=== PATIENT | female | born 1960 | race Caucasian/White ===

== ENCOUNTER 2021-01-22 11:16 | Observation (INO) | payer OTHER ==
[2021-01-22 12:19] LABS: Urine Blood Negative (Negative); Urine Glucose 3+ (Negative); Urine Protein Negative (Negative); Urine Specific Gravity 1.015 (1.005-1.030)
--- NOTE | 2021-01-22 12:21 | RAD REPORT ---
EXAM DESCRIPTION: RAD - Chest Single View - 01/22/2021 12:14 pm CLINICAL HISTORY: Chest pain;Abdominal distention COMPARISON: Chest Single View dated 02/11/2017; Chest Single View dated 08/21/2016; CHEST PA AND LAT 2 VIEW dated 02/07/2015 FINDINGS: Lines: None. Lungs: No evidence of edema or pneumonia. Pleural: No significant pleural effusions or pneumothorax. Cardiac: The heart size is within normal limits. Bones: No acute fractures. Other: IMPRESSION: No acute cardiopulmonary disease.
[2021-01-22 12:25] LABS: Absolute Lymphocytes (CBC) 1.5 K/uL (0.7-4.9); Basophils % 0.3 % (0-1.3); Hematocrit 40.3 % (36.0-45.0); Lymphocytes % 16.7 % (15.3-44.8); MPV 7.2 fL (7.6-11.3); Protime INR 1.07; RBC Red Blood Cell Count 4.98 M/uL (3.86-4.86)
[2021-01-22 12:41] LABS: ALT/SGPT 23 U/L (12-78); AST/SGOT 28 U/L (15-37); Albumin 4.3 g/dL (3.4-5.0); Alkaline Phosphatase 89 U/L (45-117); BUN Blood Urea Nitrogen 12 mg/dL (7-18); Bicarbonate 28 mmol/L (21-32); Bilirubin Direct < 0.1 mg/dL (0-0.2); Bilirubin Total 0.3 mg/dL (0.2-1.0); Glucose Level 192 mg/dL (74-106); Lipase 98 U/L (73-393); NT PRO-BNP 22 pg/mL (<125); Potassium 3.4 mmol/L (3.5-5.1); Protein, Total 8.6 g/dL (6.4-8.2); Sodium Level 141 mmol/L (136-145); Troponin (Emerg Dept Use Only) < 0.02 ng/mL (0.0-0.045)
[2021-01-22] MEDS ORDERED: HYDROCODONE/APAP 10/325 TAB ONE ×2 (12:44→15:25)
[2021-01-22] MEDS ORDERED: NA CHLORIDE 0.9% 1,000 ML ONE ×2 (13:02→14:31)
--- NOTE | 2021-01-22 13:34 | RAD REPORT ---
EXAM DESCRIPTION: CT - Angio Aorta For Dissection - 01/22/2021 1:18 pm CLINICAL HISTORY: Chest pain radiating to the back. Abdominal distention;Chest pain COMPARISON: No comparisons TECHNIQUE: CT angiography of the aorta was performed with MIPs. All CT scans are performed using dose optimization technique as appropriate and may include automated exposure control or mA/KV adjustment according to patient size. FINDINGS: A left aortic arch is present with normal branching pattern of the great vessels.No acute aortic finding is seen such as aneurysm, penetrating ulcer or dissection. The celiac axis, SMA, SUKI and renal arteries are patent. No evidence of pulmonary embolism. The lungs are clear. The liver demonstrates no focal mass or biliary dilatation.The spleen, pancreas, adrenal glands and k idneys are within normal limits for arterial phase imaging. No bowel obstruction, free fluid or abscess.No pathologic enlarged lymphadenopathy identified. Moderate lumbosacral degenerative changes. IMPRESSION: No acute aortic finding is demonstrated.
[2021-01-22] MEDS ORDERED: ASPIRIN 81 MG CHEWABLE TABLET ONE (14:00)
[2021-01-22] MEDS ORDERED: PIPERACIL/TAZO 3.375 GM VIAL IV ONE (14:00)
[2021-01-22] MEDS ORDERED: NA CHLORIDE 0.9% 250 ML ONE (14:01)
[2021-01-22] MEDS ORDERED: NA CHLORIDE 0.9% 100 ML ONE (14:01)
--- NOTE | 2021-01-22 14:01 | EDPHYS ---
Physician Documentation [facility] Name: Genet Cruz Age: 60 yrs Sex: Female : 1960 Arrival Date: 01/22/2021 Time: 11:20 Bed 4 Private MD: ED Physician Moshe Vogel HPI: 01/22 12:27 This 60 yrs old Female presents to ER via EMS with complaints of chest trini burning, sob, back pain. 12:27 The patient has shortness of breath at rest. Onset: The symptoms/episode began/occurred trini just prior to arrival. Duration: The symptoms are continuous, and are unchanged since they started. The patient's shortness of breath is aggravated by nothing, is alleviated by nothing. The patient or guardian reports chest pain that is located primarily in the substernal area, anterior aspect of left upper chest, left lateral posterior chest and left breast. Onset: this morning. The pain radiates to left back. Associated signs and symptoms: Pertinent positives: chest pain, non-productive cough. Severity of symptoms: At their worst the symptoms were moderate in the emergency department the symptoms have improved mildly. The chest pain is described as aching. Historical: - Allergies: 16:38 Codeine; iw - PMHx: 11:23 chronic pain (L) arm; Diabetes - IDDM; Hypertension; TIA; as6 - Immunization history:: Adult Immunizations up to date. - Social history:: Smoking status: Reported history of juuling and/or vaping. - Family history:: not pertinent. ROS: 12:27 Constitutional: Negative for fever, chills, and weight loss, Eyes: Negative for injury, trini pain, redness, and discharge, ENT: Negative for injury, pain, and discharge, Neck: Negative for injury, pain, and swelling, Abdomen/GI: Negative for abdominal pain, nausea, vomiting, diarrhea, and constipation, Back: Negative for injury and pain, : Negative for injury, bleeding, discharge, and swelling, MS/Extremity: Negative for injury and deformity, Skin: Negative for injury, rash, and discoloration, Neuro: Negative for headache, weakness, numbness, tingling, and seizure, Psych: Negative for depression, anxiety, suicide ideation, homicidal ideation, and hallucinations, Allergy/Immunology: Negative for hives, rash, and allergies, Endocrine: Negative for neck swelling, polydipsia, polyuria, polyphagia, and marked weight changes, Hematologic/Lymphatic: Negative for swollen nodes, abnormal bleeding, and unusual bruising. 12:27 Neck: Positive for 12:27 Cardiovascular: Positive for chest pain, of the chest. 12:27 Respiratory: Positive for shortness of breath, at rest. Exam: 12:27 Constitutional: This is a well developed, well nourished patient who is awake, alert, trini and in no acute distress. Head/Face: Normocephalic, atraumatic. Eyes: Pupils equal round and reactive to light, extra-ocular motions intact. Lids and lashes normal. Conjunctiva and sclera are non-icteric and not injected. Cornea within normal limits. Periorbital areas with no swelling, redness, or edema. ENT: Nares patent. No nasal discharge, no septal abnormalities noted. Tympanic membranes are normal and external auditory canals are clear. Oropharynx with no redness, swelling, or masses, exudates, or evidence of obstruction, uvula midline. Mucous membranes moist. Neck: Trachea midline, no thyromegaly or masses palpated, and no cervical lymphadenopathy. Supple, full range of motion without nuchal rigidity, or vertebral point tenderness. No Meningismus. Chest/axilla: Normal chest wall appearance and motion. Nontender with no deformity. No lesions are appreciated. Cardiovascular: Regular rate and rhythm with a normal S1 and S2. No gallops, murmurs, or rubs. Normal PMI, no JVD. No pulse deficits. Respiratory: Lungs have equal breath sounds bilaterally, clear to auscultation and percussion. No rales, rhonchi or wheezes noted. No increased work of breathing, no retractions or nasal flaring. Abdomen/GI: Soft, non-tender, with normal bowel sounds. No distension or tympany. No guarding or rebound. No evidence of tenderness throughout. Back: No spinal tenderness. No costovertebral tenderness. Full range of motion. Skin: Warm, dry with normal turgor. Normal color with no rashes, no lesions, and no evidence of cellulitis. MS/ Extremity: Pulses equal, no cyanosis. Neurovascular intact. Full, normal range of motion. Neuro: Awake and alert, GCS 15, oriented to person, place, time, and situation. Cranial nerves II-XII grossly intact. Motor strength 5/5 in all extremities. Sensory grossly intact. Cerebellar exam normal. Normal gait. Psych: Awake, alert, with orientation to person, place and time. Behavior, mood, and affect are within normal limits. 12:27 ECG was reviewed by the Attending Physician. 12:27 Musculoskeletal/extremity: Extremities: all appear grossly normal, with no appreciated pain with palpation, ROM: no acute changes, Circulation is intact in all extremities. Sensation intact. Compartment Syndrome exam of affected extremity: is normal. DVT Exam: no pain, no swelling, no tenderness, negative Homans' sign noted on exam, no appreciated bluish discoloration, no erythema, no increased warmth. Vital Signs: 11:20 BP 145 / 73; Pulse 107; Resp 21; Pulse Ox 94% ; Weight 79.83 kg; Height 5 ft. 4 in. as6 (162.56 cm); 12:39 Temp 97.8(TE); as6 14:43 BP 139 / 74; Pulse 104; Resp 17; Pulse Ox 99% on R/A; jt3 16:05 Pulse 87; Resp 17; Pulse Ox 97% on R/A; jt3 11:20 Body Mass Index 30.21 (79.83 kg, 162.56 cm) as6 MDM: 11:21 Patient medically screened. trini 12:33 Differential diagnosis: Anemia Anxiety Reaction abnormal EKG, anxiety, coronary artery trini disease chest wall pain, cholecystitis, esophagitis, gastritis, hiatal hernia, pancreatitis, peptic ulcer disease, pleurisy, pneumonia, pulmonary embolus, stable angina, unstable angina, pneumonia, pulmonary edema, Pulmonary Embolism reactive airway disease, Sepsis Unstable Angina. Antibiotic administration: Not indicated. HEART Score: History: Slightly Suspicious (0), ECG: Non specific repolarization disturbance / LBTB / PM (1), Age: > 45 and < 65 years (1), Risk Factors: > or = 3 Risk factors for atherosclerotic disease (2), [Hypertension] [DM] [+ Family HX] Troponin: < or = 1 x Normal Limit (0). The patient was given aspirin in the Emergency Department. The patient's Wells Deep Vein Thrombosis Score was calculated as follows: Total Score: 0. This patient was found to be at low risk for a deep vein thrombosis by using the Well's assessment criteria Heart Rate >100 BPM (1.5 Pts) Total Score: 0-2 Pts- Low Risk. The patient's pulmonary embolism risk score was calculated as follows: Total Score: 0-2 points. This patient was found to be at low risk for a pulmonary embolism by using the Well's assessment criteria the patients heart rate is greater than 100 beats per minute (1.5 Pts) Total Score: 0-2 points. This patient was found to be at low risk for a pulmonary embolism by using the Well's assessment criteria. KEELY Risk Score: 1 - Three or more CAD risk factors, TOTAL SCORE = 1. Immunization status: Influenza vaccine:. Data reviewed: vital signs, nurses notes, EMS record, lab test result(s), EKG, radiologic studies, plain films. Data interpreted: environmental monitoring technician: rate is 107 beats/min, rhythm is regular, Pulse oximetry: on room air is 94 %. Test interpretation: by ED physician or midlevel provider: ECG, plain radiologic studies. 01/22 11:53 Order name: Basic Metabolic Panel; Complete Time: 13:26 [facility] 01/22 11:53 Order name: CBC with Diff; Complete Time: 12:35 [facility] 01/22 11:53 Order name: LFT's; Complete Time: 13:26 [facility] 01/22 11:53 Order name: Magnesium; Complete Time: 13:26 [facility] 01/22 11:53 Order name: NT PRO-BNP; Complete Time: 13:26 [facility] 01/22 11:53 Order name: PT-INR; Complete Time: 12:35 [facility] 01/22 11:53 Order name: Troponin (emerg Dept Use Only); Complete Time: 13:26 [facility] 01/22 11:53 Order name: Lipase; Complete Time: 13:26 [facility] 01/22 11:53 Order name: Urine Culture [facility] 01/22 12:20 Order name: Urine Dipstick-Ancillary; Complete Time: 12:35 [facility] 01/22 12:37 Order name: Blood Culture Adult (2) [facility] 01/22 12:37 Order name: Lactate; Complete Time: 13:26 [facility] 01/22 12:37 Order name: SARS-COV-2 RT PCR (Document "Date of Onset" if Symptomatic); Complete Time: [facility] 14:25 01/22 16:26 Order name: Basic Metabolic Panel [facility] 01/22 11:53 Order name: XRAY Chest (1 view); Complete Time: 12:35 [facility] 01/22 11:53 Order name: CT Aorta for Dissection; Complete Time: 13:57 [facility] 01/22 16:26 Order name: Basic Metabolic Panel [facility] 01/22 16:26 Order name: Lipid Profile [facility] 01/22 16:26 Order name: Lipid Profile [facility] 01/22 16:27 Order name: Echo with Doppler [facility] 01/22 16:27 Order name: CBC with Automated Diff [facility] 01/22 16:27 Order name: CBC with Automated Diff [facility] 01/22 16:27 Order name: Troponin I [facility] 01/22 16:27 Order name: Troponin I [facility] 01/22 16:27 Order name: Troponin I [facility] 01/22 16:42 Order name: Lactate Sepsis 2 HR Follow-up [facility] 01/22 11:53 Order name: EKG; Complete Time: 11:54 [facility] 01/22 11:53 Order name: Cardiac monitoring; Complete Time: 12:01 [facility] 01/22 11:53 Order name: EKG - Nurse/Tech; Complete Time: 12:01 [facility] 01/22 11:53 Order name: IV Saline Lock; Complete Time: 12:01 [facility] 01/22 11:53 Order name: Labs collected and sent; Complete Time: 12:26 [facility] 01/22 11:53 Order name: O2 Per Protocol; Complete Time: 12:01 [facility] 01/22 11:53 Order name: O2 Sat Monitoring; Complete Time: 12:01 [facility] 01/22 11:53 Order name: Urine Dipstick-Ancillary (obtain specimen); Complete Time: 12:25 [facility] 01/22 16:27 Order name: Heart Healthy [facility] 01/22 16:27 Order name: EKG Electrocardiogram [facility] 01/22 16:27 Order name: EKG Electrocardiogram [facility] EC:27 Rate is 106 beats/min. Rhythm is regular. QRS [place] is Normal. [place] interval is normal. [facility] QRS interval is normal. QT interval is normal. No Q waves. T waves are Normal. No ST changes noted. Clinical impression: NSR w/ Non-specific ST/T Changes and No evidence of ischemia. Interpreted by me. Reviewed by me. Administered Medications: 11:47 Drug: [place] (HYDROcodone-acetaminophen) 10 mg-325 mg 1 tabs Route: PO; as6 12:25 Drug: NS 0.9% 1000 ml Route: IV; Rate: 1 bolus; Site: right forearm; as6 13:27 Drug: Aspirin Chewable Tablet 162 mg Route: PO; jt3 16:01 Follow up: Response: No adverse reaction jt3 13:27 Drug: Zosyn (piperacillin-tazobactam) 3.375 grams Route: IVPB; Infused Over: 60 mins; jt3 Site: right forearm; 16:01 Follow up: Response: No adverse reaction jt3 13:36 Drug: Potassium Effervescent Tablet 25 mEq Route: PO; jt3 16:01 Follow up: Response: Pain is decreased jt3 13:41 Drug: NS 0.9% 1000 ml Route: IV; Rate: 1 bolus; Site: right forearm; jt3 15:35 Drug: [place] (HYDROcodone-acetaminophen) 10 mg-325 mg 1 tabs Route: PO; jt3 16:01 Follow up: Response: Pain is decreased jt3 Disposition Summary: 01/22/21 14:00 Hospitalization Ordered Hospitalization Status: Observation trini Provider: Piero Garcia cha Location: Telemetry/MedSurg (observation) trini Condition: Stable trini Problem: new trini Symptoms: have improved trini Bed/Room Type: Standard trini Room Assignment: 203(01/22/21 16:36) bd Diagnosis - Dyspnea trini - Chest pain, unspecified trini - Type 1 diabetes mellitus with hyperglycemia trini - Hypokalemia trini Forms: - Medication Reconciliation Form trini - SBAR form trini Signatures: Dispatcher [employer] EDMlaa Elizabeth Corey, MD MD cha Williams, Irene, RN RN iw Fer Garcia RN RN jt3 Cameron Hill RN RN as6 Corrections: (The following items were deleted from the chart) 16:36 14:00 trini iw 16:36 16:36 203 iw bd
--- NOTE | 2021-01-22 14:01 | ER ---
Nurse's Notes [facility] Name: Genet Cruz Age: 60 yrs Sex: Female : 1960 Arrival Date: 01/22/2021 Time: 11:20 Bed 4 Private MD: Diagnosis: Dyspnea;Chest pain, unspecified;Type 1 diabetes mellitus with hyperglycemia;Hypokalemia Presentation: 01/22 11:20 Chief complaint: EMS states: Pt. arrives via EMS due to having left sided back pain as6 that radiates into her left chest. Pt. feels when she got up this morning she aspirated due to acid reflux. Pt. reports burning on the left side of her chest. Alert and oriented x4 on arrival. Pt. arrives on 4L O2 from EMS. Airway patent. Coronavirus screen: Vaccine status: Patient reports being unvaccinated. Ebola Screen: Patient negative for fever greater than or equal to 101.5 degrees Fahrenheit, and additional compatible Ebola Virus Disease symptoms Patient denies exposure to infectious person. Patient denies travel to an Ebola-affected area in the 21 days before illness onset. Initial Sepsis Screen: Does the patient meet any 2 criteria? No. Patient's initial sepsis screen is negative. Does the patient have a suspected source of infection? No. Patient's initial sepsis screen is negative. Risk Assessment: Do you want to hurt yourself or someone else? Patient reports no desire to harm self or others. Onset of symptoms was January 22, 2021. 11:20 Method Of Arrival: EMS: [facility] as6 11:20 Acuity: IAV 3 as6 Triage Assessment: 11:23 General: Appears in no apparent distress. Behavior is calm, cooperative. Pain: as6 Complains of pain in chest Pain radiates to back Pain currently is 6 out of 10 on a pain scale. Quality of pain is described as burning, Pain began 4 hours ago. Historical: - Allergies: 16:38 Codeine; iw - PMHx: 11:23 chronic pain (L) arm; Diabetes - IDDM; Hypertension; TIA; as6 - Immunization history:: Adult Immunizations up to date. - Social history:: Smoking status: Reported history of juuling and/or vaping. - Family history:: not pertinent. Screenin:25 Abuse screen: Denies threats or abuse. Denies injuries from another. Nutritional as6 screening: No deficits noted. Tuberculosis screening: No symptoms or risk factors identified. Fall Risk None identified. Assessment: 11:25 Cardiovascular: Reports chest pain, shortness of breath, Rhythm is sinus tachycardia as6 Chest pain began 4 hours prior to arrival is aggravated by eating, Pt. reports left chest pain due to what she thinks is related to aspirating from acid reflux this morning. . 16:07 Reassessment: No changes from previously documented assessment. Patient and/or family jt3 updated on plan of care and expected duration. Pain level reassessed. Vital Signs: 11:20 BP 145 / 73; Pulse 107; Resp 21; Pulse Ox 94% ; Weight 79.83 kg; Height 5 ft. 4 in. as6 (162.56 cm); 12:39 Temp 97.8(TE); as6 14:43 BP 139 / 74; Pulse 104; Resp 17; Pulse Ox 99% on R/A; jt3 16:05 Pulse 87; Resp 17; Pulse Ox 97% on R/A; jt3 11:20 Body Mass Index 30.21 (79.83 kg, 162.56 cm) as6 ED Course: 11:20 Patient arrived in ED. as6 11:21 Moshe Vogel MD is Attending Physician. [facility] 11:23 Triage completed. as6 11:25 Arm band placed on right wrist. EKG completed in triage. Results shown to MD. EKG as6 completed in triage. Results shown to MD. 11:25 Patient has correct armband on for positive identification. Bed in low position. Call as6 light in reach. Side rails up X2. 11:25 No provider procedures requiring assistance completed. Inserted saline lock: 20 gauge as6 in right antecubital area, using aseptic technique. 12:14 XRAY Chest (1 view) In Process Unspecified. EDMS 12:49 First set of blood cultures drawn by me. mt 12:53 Fer Garcia, KATIE is Primary Nurse. jt3 13:18 CT Aorta for Dissection In Process Unspecified. EDMS 13:57 Piero Garcia MD is Hospitalizing Provider. trini Administered Medications: 11:47 Drug: [place] (HYDROcodone-acetaminophen) 10 mg-325 mg 1 tabs Route: PO; as6 12:25 Drug: NS 0.9% 1000 ml Route: IV; Rate: 1 bolus; Site: right forearm; as6 13:27 Drug: Aspirin Chewable Tablet 162 mg Route: PO; jt3 16:01 Follow up: Response: No adverse reaction jt3 13:27 Drug: Zosyn (piperacillin-tazobactam) 3.375 grams Route: IVPB; Infused Over: 60 mins; jt3 Site: right forearm; 16:01 Follow up: Response: No adverse reaction jt3 13:36 Drug: Potassium Effervescent Tablet 25 mEq Route: PO; jt3 16:01 Follow up: Response: Pain is decreased jt3 13:41 Drug: NS 0.9% 1000 ml Route: IV; Rate: 1 bolus; Site: right forearm; jt3 15:35 Drug: [place] (HYDROcodone-acetaminophen) 10 mg-325 mg 1 tabs Route: PO; jt3 16:01 Follow up: Response: Pain is decreased jt3 Outcome: 14:00 Decision to Hospitalize by Provider. trini 17:32 Patient left the ED. [facility] Signatures: Dispatcher [employer] EDMoshe Benitez MD MD cha Williams, Irene, RN Sharona Dennis [facility] Sue Hand mt, Jordan, RN RN jt3 Cameron Hill RN RN as6
[2021-01-22] MEDS ORDERED: POTASSIUM 25 MEQ EFFERV TAB ONE (14:31)
[2021-01-22] MEDS ORDERED: ACETAMINOPHEN 500 MG TAB PO PRN (16:23)
[2021-01-22] MEDS ORDERED: ALPRAZOLAM 0.25 MG TABLET PO PRN (16:23)
[2021-01-22] MEDS: ENOXAPARIN 40 MG/0.4 ML SQ SCH ×2 (17:00)
[2021-01-22 17:40] VITALS: BMI 30.2
[2021-01-22] MEDS: METOPROLOL TAR 50 MG TAB PO SCH (19:39)
[2021-01-22] MEDS: MORPHINE 2 MG/ML SYR IV PRN ×2 (19:40→23:40)
[2021-01-22] MEDS ORDERED: INFLUENZA VACCINE (for 6+ mo) 0.5 ML DOSE IMVAC ONE (20:00)
[2021-01-23 00:32] VITALS: O2SAT 95
[2021-01-23] MEDS: MORPHINE 2 MG/ML SYR IV PRN ×3 (03:46→12:52)
[2021-01-23 05:40] LABS: Absolute Lymphocytes (CBC) 3.4 K/uL (0.7-4.9); Basophils % 0.4 % (0-1.3); Hematocrit 35.6 % (36.0-45.0); RBC Red Blood Cell Count 4.35 M/uL (3.86-4.86)
[2021-01-23 05:57] LABS: BUN Blood Urea Nitrogen 10 mg/dL (7-18); Bicarbonate 27 mmol/L (21-32); Glucose Level 152 mg/dL (74-106); HDL Cholesterol 28 mg/dL (40-60); LDL Cholesterol, Calculated 41 (<130); Potassium 3.7 mmol/L (3.5-5.1); Sodium Level 140 mmol/L (136-145); Troponin I < 0.02 ng/mL (0.0-0.045)
[2021-01-23] MEDS: ENOXAPARIN 40 MG/0.4 ML SQ SCH (08:35)
[2021-01-23] MEDS: METOPROLOL TAR 50 MG TAB PO SCH (08:36)
[2021-01-23] MEDS ORDERED: ASPIRIN EC 81 MG TAB PO SCH (09:00)
[2021-01-23 12:09] VITALS: BP 100/58; TEMP 98.1
--- NOTE | 2021-01-23 13:11 | EKG ---
Test Date: 2021-01-23 Test Time: 10:10:26 Matrix Supervisor: JAMES MEASUREMENT RESULTS: Intervals: Rate: 83 NC: 196 QRSD: 86 QT: 394 QTc: 462 [place]: P: 79 NC: 196 QRS: 70 T: 72 INTERPRETIVE STATEMENTS: Normal sinus rhythm Normal ECG Compared to ECG 01/22/2021 11:23:24 Sinus tachycardia no longer present Myocardial infarct finding no longer present Electronically Signed On 01-23-21 13:10:13 CDT by Nhan Linton
--- NOTE | 2021-01-23 13:15 | EKG ---
Test Date: 2021-01-22 Test Time: 11:23:24 Corporate Logistics Manager: MONCHO MEASUREMENT RESULTS: Intervals: Rate: 106 TX: 172 QRSD: 84 QT: 372 QTc: 494 [place]: P: 57 TX: 172 QRS: 55 T: 72 INTERPRETIVE STATEMENTS: Sinus tachycardia Cannot rule out Anterior infarct, age undetermined Abnormal ECG Compared to ECG 02/11/2017 19:26:30 Myocardial infarct finding now present Sinus rhythm no longer present Prolonged QT interval no longer present Electronically Signed On 01-23-21 13:10:43 CDT by Nhan Linton
--- NOTE | 2021-01-23 13:59 | ECHO ---
HEIGHT: 5 ft 4 in WEIGHT: 175 lb 14.862 oz DATE OF STUDY: 03/25/[address]: Piero Garcia MD 2-DIMENSIONAL: YES M.MODE: YES DOPPLER: YES COLOR FLOW: YES TDS: PORTABLE: DEFINITY: BUBBLE STUDY: DIAGNOSIS: CHEST PAIN, RULE OUT ACUTE CORONARY SYNDROME CARDIAC HISTORY: CATHERIZATION: NO SURGERY: NO PROSTHETIC VALVE: NO PACEMAKER: NO MEASUREMENTS (cm) DIASTOLIC (NORMALS) SYSTOLIC (NORMALS) IVSd 1.1 (0.6-1.2) LA Diam 2.7 (1.9-4.0) LVEF 73% LVIDd 4.0 (3.5-5.7) LVIDs 2.4 (2.0-3.5) %FS 41% LVPWd 1.1 (0.6-1.2) Ao Diam 2.7 (2.0-3.7) 2 DIMENSIONAL ASSESSMENT: RIGHT ATRIUM: NORMAL LEFT ATRIUM: RIGHT VENTRICLE: NORMAL LEFT VENTRICLE: TRICUSPID VALVE: NORMAL MITRAL VALVE: PULMONIC VALVE: NORMAL AORTIC VALVE: PERICARDIAL EFFUSION: NONE AORTIC ROOT: LEFT VENTRICULAR WALL MOTION: DOPPLER/COLOR FLOW: COMMENTS: NORMAL 2-DIMENSIONAL ECHOCARDIOGRAM WITH DOPPLER. NO WALL MOTION ABNORMALITY. NO EFFUSION. TECHNOLOGIST: HERBER RHODES
--- OUTSIDE RECORDS SUMMARY | 2021-02-02 08:06 | XMS REPORT | Continuity of Care Document ---
:1960 Author Organization [facility] t Address [address] [place] [address] Care Team Providers Name Role Phone Jacob SNYDER Primary Care Physician Jacob SNYDER Attending Clinician Payers Payer Name Policy Type Policy Number Effective Date Expiration Date S ource Problems Condition Condition Condition Status Onset Resolution Last Treating Co mments Source Name Details Category Date Date Treatment Clinician Date Primary Primary Disease Active 2020-03 Univers hypertensi hypertensi 0-26 it y of on on 00:00: [address] Chronic Chronic Disease Active 2017-03 Univers pain pain 0-04 ity of syndrome syndrome 00:00: [address] 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 [place] SEPSIS Diagnosis Active 2017-09-22 Mem oria 09-14 21:42:00 l SEPSIS 21:08: [place] 00 Active 09/14/2017 [facility] Diabetes Diabetes Disease Active Unive rs 3-26 ity of 00:00: [address] SEPSIS, Diagnosis Active 2017-09-22 Me moria UNSPECIFIE 21:42:00 l D ORGANISM SEPSIS, Her maldonado UNSPECIFIE D ORGANISM Active Molly Perez Allergies, Adverse Reactions, Alerts Allergy Allergy Status Severity Reaction(s) Onset Inactive Treating Comm ents Source Name Type Date Date Clinician Codeine Propensi Active Unknown - Univ ers ty to See comments 11-11 ity of adverse 00:00: [place] reaction 00 Medical s Branch Sulfa Propensi Active Diarrhea, severe Unive rs (Sulfona ty to Nausea 06-21 abd. ity of mide adverse and/or 00:00: cramping [place] Antibiot reaction Vomiting, 00 Med ical ics) s to Other - See Bran h drug comments Levoflox Propensi Active Other - See 2016-03 U nivers acin ty to comments 0-06 ity of adverse 00:00: [place] reaction 00 Medical s Branch Penicill Propensi Active Rash 2014-03 Univer s ins ty to 0-02 ity of adverse 00:00: [place] reaction 00 Medical s to Branch drug codeine codeine Active Tyler Perez Levaquin Levaquin Active Yaquelin Perez Social History Social Habit Start Date Stop Date Quantity Comments Source Exposure to Not sure University of SARS-CoV-2 [place] [facility] (event) Branch Alcohol intake 2020-09-27 2020-09-27 Current University of 00:00:00 00:00:00 non-drinker of [facility] alcohol Branch (finding) Tobacco use and 2016-12-26 2016-12-26 Current user Univers ity of exposure 00:00:00 00:00:00 [facility] Tobacco Comment 2014-12-22 2014-12-22 Pt uses Universit y of 00:00:00 00:00:00 e-cigarette [facility] Sex [birth year] At [birth year] Universit y of 00:00:00 00:00:00 [facility] Smoking Status Start Date Stop Date Source Former smoker 2020-02-11 00:00:00 2020-02-11 00:00:00 Universi ty of [facility] Social History 2017-09-15 08:15:53 [facility] maldonado Medications Ordered Filled Start Stop Current Ordering Indication Dosage Frequency Signature Comments Components Source Medication Medication Date Date Medication? Clinician (SIG) Name Name sulfamethox 2020-03 Yes [id number] 1{tbl} Take 1 Univers azole-trime 1-09 tablet by ity of thoprim 00:00: mouth 2 [place] (BACTRIM 00 (two) Medical DS) 800-160 times Branch mg per daily. tablet hydrOXYzine 2020-03 Yes [id number] TAKE 1 Univers 25 mg 1-01 TABLET BY ity of tablet 00:00: MOUTH 3 [place] 00 TIMES Medical DAILY *MAY Branch IMPAIR ALERTNESS* * BACLOFEN 2020-03 Yes [id number] TAKE 1 Univers mg tablet 1-01 TABLET BY ity o f 00:00: MOUTH 3 [place] 00 TIMES Medical DAILY *MAY Branch IMPAIR ALERTNESS* * hydrOXYzine 2020-03 Yes [id number] TAKE 1 Univers 25 mg 1-01 TABLET BY ity of tablet 00:00: MOUTH 3 [place] 00 TIMES Medical DAILY *MAY Branch IMPAIR ALERTNESS* * BACLOFEN 2020-03 Yes [id number] TAKE 1 Univers mg tablet 1-01 TABLET BY ity o f 00:00: MOUTH 3 [place] 00 TIMES Medical DAILY *MAY Branch IMPAIR ALERTNESS* * hydrOXYzine 2020-03 Yes [id number] TAKE 1 Univers 25 mg 1-01 TABLET BY ity of tablet 00:00: MOUTH 3 [place] 00 TIMES Medical DAILY *MAY Branch IMPAIR ALERTNESS* * BACLOFEN 2020-03 Yes [id number] TAKE 1 Univers mg tablet 1-01 TABLET BY ity o f 00:00: MOUTH 3 [place] 00 TIMES Medical DAILY *MAY Branch IMPAIR ALERTNESS* * LEVETIRACET 2020-03 Yes [id number] TAKE 1 Univers AM 1,000 mg 0-27 TABLET BY ity of tablet 00:00: MOUTH 2 [place] 00 TIMES Medical DAILY Branch LEVETIRACET 2020-03 Yes [id number] TAKE 1 Univers AM 1,000 mg 0-27 TABLET BY ity of tablet 00:00: MOUTH 2 [place] 00 TIMES Medical DAILY Branch LEVETIRACET 2020-03 Yes [id number] TAKE 1 Univers AM 1,000 mg 0-27 TABLET BY ity of tablet 00:00: MOUTH 2 [place] 00 TIMES Medical DAILY Branch HYDROcodone 2020-03 Yes [id number] TAKE 1 Univ ers -acetaminop 0-25 TABLET BY ity of hen 10-325 00:00: MOUTH [place] mg tablet 00 EVERY 4 Medical HOURS Branch NEEDED FOR PAIN (SCALE 4-6). *MAY MAKE DROWSY* Indication s: chronic pain HYDROcodone 2020-03 Yes [id number] TAKE 1 Univ ers -acetaminop 0-25 TABLET BY ity of hen 10-325 00:00: MOUTH [place] mg tablet 00 EVERY 4 Medical HOURS Branch NEEDED FOR PAIN (SCALE 4-6). *MAY MAKE DROWSY* Indication s: chronic pain HYDROcodone 2020-03 Yes [id number] TAKE 1 Univ ers -acetaminop 0-25 TABLET BY ity of hen 10-325 00:00: MOUTH [place] mg tablet 00 EVERY 4 Medical HOURS Branch NEEDED FOR PAIN (SCALE 4-6). *MAY MAKE DROWSY* Indication s: chronic pain METFORMIN 2020-03 Yes [id number] TAKE 2 Un reinier ER 500 mg 0-20 TABLETS BY ity of 24 hr 00:00: MOUTH 2 [place] tablet 00 TIMES Medical DAILY WITH Branch FOOD AMLODIPINE 2020-03 Yes [id number] 10mg TAKE 1 U nivers 10 mg 0-20 TABLET BY ity of tablet 00:00: MOUTH [place] 00 EVERY Medical MORNING Branch METFORMIN 2020-03 Yes [id number] TAKE 2 Un reinier ER 500 mg 0-20 TABLETS BY ity of 24 hr 00:00: MOUTH 2 [place] tablet 00 TIMES Medical DAILY WITH Branch FOOD AMLODIPINE 2020-03 Yes [id number] 10mg TAKE 1 U nivers 10 mg 0-20 TABLET BY ity of tablet 00:00: MOUTH [place] 00 EVERY Medical MORNING Branch METFORMIN 2020-03 Yes [id number] TAKE 2 Un reinier ER 500 mg 0-20 TABLETS BY ity of 24 hr 00:00: MOUTH 2 [place] tablet 00 TIMES Medical DAILY WITH Branch FOOD AMLODIPINE 2020-03 Yes [id number] 10mg TAKE 1 U nivers 10 mg 0-20 TABLET BY ity of tablet 00:00: MOUTH [place] 00 EVERY Medical MORNING Branch insulin 2020-03 Yes [id number] INJECT 72 U nivers glargine 0-18 UNIT(S) ity of U-300 conc 00:00: UNDER THE [place] (TOUJEO 00 SKIN ONCE Medical SOLOSTAR DAILY IN Branch U-300 THE INSULIN) EVENING 300 unit/mL (ADJUSTING (1.5 mL) DOSE BY 2 InPn UNIT(S) DAILY UNTIL FASTING BLOOD SUGAR LESS THAN 200) insulin 2020-03 Yes [id number] INJECT 72 U nivers glargine 0-18 UNIT(S) ity of U-300 conc 00:00: UNDER THE [place] ([place]JE[place] 00 SKIN ONCE Medical SOLOSTAR DAILY IN Branch U-300 THE INSULIN) EVENING 300 unit/mL (ADJUSTING (1.5 mL) DOSE BY 2 InPn UNIT(S) DAILY UNTIL FASTING BLOOD SUGAR LESS THAN 200) insulin 2020-03 Yes [id number] INJECT 72 U nivers glargine 0-18 UNIT(S) ity of U-300 conc 00:00: UNDER THE [place] ([place] 00 SKIN ONCE Medical SOLOSTAR DAILY IN Branch U-300 THE INSULIN) EVENING 300 unit/mL (ADJUSTING (1.5 mL) DOSE BY 2 InPn UNIT(S) DAILY UNTIL FASTING BLOOD SUGAR LESS THAN 200) MUPIROCIN 2 2020-03 Yes [id number] APPLY Univers % ointment 0-13 TOPICALLY ity of 00:00: TO BOTH [place] [address] NOSTRILS Medical EVERY 12 Branch HOURS USING SEPARATE COTTON SWABS FOR 5 DAYS MUPIROCIN 2 2020-03 Yes [id number] APPLY Univers % ointment 0-13 TOPICALLY ity of 00:00: TO BOTH [place] [address] NOSTRILS Medical EVERY 12 Branch HOURS USING SEPARATE COTTON SWABS FOR 5 DAYS MUPIROCIN 2 2020-03 Yes [id number] APPLY Univers % ointment 0-13 TOPICALLY ity of 00:00: TO BOTH [place] [address] NOSTRILS Medical EVERY 12 Branch HOURS USING SEPARATE COTTON SWABS FOR 5 DAYS Insulin 2020-03 Yes [id number] USE Uni vers [place], 0-08 DIRECTED ity of Disposable, 00:00: FOR [place] (SURE 00 INSULIN Medical COMFORT PEN ADMINISTRA Br anch NEEDLE) 32 TION gauge x 5/32" Ndle CLOPIDOGREL 2020-03 Yes [id number] TAKE 1 Univers 75 mg 0-08 TABLET BY ity of tablet 00:00: MOUTH EVERY DAY Medical Branch IBUPROFEN 2020-03 Yes [id number] TAKE 1 U nivers 800 mg 0-08 TABLET BY ity of tablet 00:00: MOUTH 00 DAILY WITH Medical FOOD *DO Branch NOT TAKE ASPIRIN* HYDROCHLORO 2020-03 Yes [id number] TAKE 1 Univers THIAZIDE 25 0-08 TABLET BY ity of mg tablet 00:00: MOUTH EVERY DAY Medical Branch Insulin 2020-03 Yes [id number] USE Uni vers [place], 0-08 DIRECTED ity of Disposable, 00:00: FOR [place] (SURE 00 INSULIN Medical COMFORT PEN ADMINISTRA Br anch NEEDLE) 32 TION gauge x 5/32" Ndle CLOPIDOGREL 2020-03 Yes [id number] TAKE 1 Univers 75 mg 0-08 TABLET BY ity of tablet 00:00: MOUTH [place] 00 EVERY DAY Medical Branch IBUPROFEN 2020-03 Yes [id number] TAKE 1 U nivers 800 mg 0-08 TABLET BY ity of tablet 00:00: MOUTH [place] 00 DAILY WITH Medical FOOD *DO Branch NOT TAKE ASPIRIN* HYDROCHLORO 2020-03 Yes [id number] TAKE 1 Univers THIAZIDE 25 0-08 TABLET BY ity of mg tablet 00:00: MOUTH [place] 00 EVERY DAY Medical Branch Insulin 2020-03 Yes [id number] USE Uni vers [place], 0-08 DIRECTED ity of Disposable, 00:00: FOR [place] (SURE 00 INSULIN Medical COMFORT PEN ADMINISTRA Br anch NEEDLE) 32 TION gauge x 5/32" Ndle CLOPIDOGREL 2020-03 Yes [id number] TAKE 1 Univers 75 mg 0-08 TABLET BY ity of tablet 00:00: MOUTH [place] 00 EVERY DAY Medical Branch IBUPROFEN 2020-03 Yes [id number] TAKE 1 U nivers 800 mg 0-08 TABLET BY ity of tablet 00:00: MOUTH [place] 00 DAILY WITH Medical FOOD *DO Branch NOT TAKE ASPIRIN* HYDROCHLORO 2020-03 Yes [id number] TAKE 1 Univers THIAZIDE 25 0-08 TABLET BY ity of mg tablet 00:00: MOUTH [place] 00 EVERY DAY Medical Branch DIPHENOXYLA 2020-0 Yes [id number] TAKE 2 Univers TE-ATROPINE 9-27 TABLETS BY it y of 2.5-0.025 00:00: MOUTH 4 [place] mg tablet 00 TIMES Medical DAILY Branch DIRECTED FOR LOOSE STOOLS *MAY MAKE DROWSY* DIPHENOXYLA 2020- Yes [id number] TAKE 2 Univers TE-ATROPINE 9-27 TABLETS BY it y of 2.5-0.025 00:00: MOUTH 4 [place] mg tablet 00 TIMES Medical DAILY Branch DIRECTED FOR LOOSE STOOLS *MAY MAKE DROWSY* DIPHENOXYLA 2020- Yes [id number] TAKE 2 Univers TE-ATROPINE 9-27 TABLETS BY it y of 2.5-0.025 00:00: MOUTH 4 [place] mg tablet 00 TIMES Medical DAILY Branch DIRECTED FOR LOOSE STOOLS *MAY MAKE DROWSY* Diclofenac Yes [id number] Apply to Univers Sodium 9-22 area(s) 4 ity of (VOLTAREN) 00:00: (four) [place] 1 % gel 00 times Medical daily as Branch needed for Pain (scale 4-6). potassium 2020- Yes [id number] 10meq Take 1 Univers chloride 9-22 tablet by ity of (K-TAB) 10 00:00: mouth [place] mEq CR 00 daily. Medical tablet Branch Diclofenac Yes [id number] Apply to Univers Sodium 9-22 area(s) 4 ity of (VOLTAREN) 00:00: (four) [place] 1 % gel 00 times Medical daily as Branch needed for Pain (scale 4-6). potassium Yes [id number] 10meq Take 1 Univers chloride 9-22 tablet by ity of (K-TAB) 10 00:00: mouth [place] mEq CR 00 daily. Medical tablet Branch Diclofenac Yes [id number] Apply to Univers Sodium 9-22 area(s) 4 ity of (VOLTAREN) 00:00: (four) [place] 1 % gel 00 times Medical daily as Branch needed for Pain (scale 4-6). potassium Yes [id number] 10meq Take 1 Univers chloride 9-22 tablet by ity of (K-TAB) 10 00:00: mouth [place] mEq CR 00 daily. Medical tablet Branch liraglutide Yes [id number] 1.8mg inject 1.8 Univers (VICTOZA 9-20 mg under ity of 3-SOILA) 0.6 00:00: the skin [place] as mg/0.1 mL 00 daily. Medical (18 mg/3 Branch mL) injection liraglutide Yes [id number] 1.8mg inject 1.8 Univers (VICTOZA 9-20 mg under ity of 3-SOILA) 0.6 00:00: the skin [place] as mg/0.1 mL 00 daily. Medical (18 mg/3 Branch mL) injection liraglutide Yes [id number] 1.8mg inject 1.8 Univers (VICTOZA 9-20 mg under ity of 3-SOILA) 0.6 00:00: the skin [place] as mg/0.1 mL 00 daily. Medical (18 mg/3 Branch mL) injection JARDIANCE 2020- No [id number] 1{tbl} TAKE 1 Univers 25 mg Tab 9-14 11-08 TABLET BY ity of 00:00: 00:00 MOUTH [place] 00 :00 DAILY Medical Branch PROMETHAZIN Yes [id number] TAKE 1 Univers E 25 mg 9-08 TABLET BY ity of tablet 00:00: MOUTH [place] 00 EVERY 6 Medical HOURS Branch NEEDED FOR NAUSEA AND VOMITING *MAY MAKE DROWSY* PROMETHAZIN Yes [id number] TAKE 1 Univers E 25 mg 9-08 TABLET BY ity of tablet 00:00: MOUTH [place] 00 EVERY 6 Medical HOURS Branch NEEDED FOR NAUSEA AND VOMITING *MAY MAKE DROWSY* PROMETHAZIN Yes [id number] TAKE 1 Univers E 25 mg 9-08 TABLET BY ity of tablet 00:00: MOUTH [place] 00 EVERY 6 Medical HOURS Branch NEEDED FOR NAUSEA AND VOMITING *MAY MAKE DROWSY* sulfamethox Yes [id number] 1{tbl} Take 1 Univers azole-trime 8-31 tablet by ity of thoprim 00:00: mouth 2 [place] (BACTRIM 00 (two) Medical DS) 800-160 times Branch mg per daily. tablet sulfamethox 2020- No [id number] 1{tbl} Take 1 Univers azole-trime 8-31 11-09 tablet by it y of thoprim 00:00: 00:00 mouth 2 [place] (BACTRIM 00 :00 (two) Medical DS) 800-160 times Branch mg per daily. tablet LOSARTAN Yes [id number] 100mg TAKE 1 Un reinier 100 mg 8-02 TABLET BY ity of tablet 00:00: MOUTH [place] 00 EVERY Medical MORNING Branch PANTOPRAZOL Yes TAKE 1 Univ ers E 40 mg EC 8-02 TABLET BY ity of tablet 00:00: MOUTH ONCE [place] 00 DAILY Medical BEFORE A Branch MEAL. LOSARTAN Yes [id number] 100mg TAKE 1 Un reinier 100 mg 8-02 TABLET BY ity of tablet 00:00: MOUTH [place] 00 EVERY Medical MORNING Branch PANTOPRAZOL Yes TAKE 1 Univ ers E 40 mg EC 8-02 TABLET BY ity of tablet 00:00: MOUTH ONCE [place] 00 DAILY Medical BEFORE A Branch MEAL. LOSARTAN Yes [id number] 100mg TAKE 1 Un reinier 100 mg 8-02 TABLET BY ity of tablet 00:00: MOUTH EVERY Medical MORNING Branch PANTOPRAZOL Yes TAKE 1 Univ ers E 40 mg EC 8-02 TABLET BY ity of tablet 00:00: MOUTH ONCE DAILY Medical BEFORE A Branch MEAL. TRIAMCINOLO Yes [id number] APPLY Univers NE 7-12 THINLY TO ity of ACETONIDE 00:00: AFFECTED [place] 0.1 % cream 00 AREA(S) 3 Med ical TIMES Branch DAILY TRIAMCINOLO Yes [id number] APPLY Univers NE 7-12 THINLY TO ity of ACETONIDE 00:00: AFFECTED [place] 0.1 % cream 00 AREA(S) 3 Med ical TIMES Branch DAILY TRIAMCINOLO Yes [id number] APPLY Univers NE 7-12 THINLY TO ity of ACETONIDE 00:00: AFFECTED [place] 0.1 % cream 00 AREA(S) 3 Med ical TIMES Branch DAILY SERTRALINE Yes [id number] TAKE 2 U nivers 100 mg 6-16 TABLETS BY ity of tablet 00:00: MOUTH EVERY DAY Medical Branch SERTRALINE 0 Yes [id number] TAKE 2 U nivers 100 mg 6-16 TABLETS BY ity of tablet 00:00: MOUTH [place] EVERY DAY Medical Branch SERTRALINE 2020-0 Yes [id number] TAKE 2 U nivers 100 mg 6-16 TABLETS BY ity of tablet 00:00: MOUTH [place] EVERY DAY Medical Branch LATUDA 40 2020-0 Yes [id number] 40mg TAKE 1 U nivers mg tablet 6-09 TABLET BY ity o f 00:00: MOUTH AT [place] BEDTIME Medical Branch ATORVASTATI 2020-0 Yes [id number] 40mg TAKE 1 Univers N 40 mg 6-09 TABLET BY ity of tablet 00:00: MOUTH AT [place] BEDTIME Medical Branch LATUDA 40 2020-0 Yes [id number] 40mg TAKE 1 U nivers mg tablet 6-09 TABLET BY ity o f 00:00: MOUTH AT [place] BEDTIME Medical Branch ATORVASTATI 2020-0 Yes [id number] 40mg TAKE 1 Univers N 40 mg 6-09 TABLET BY ity of tablet 00:00: MOUTH AT [place] [address] BEDTIME Medical Branch LATUDA 40 Yes [id number] 40mg TAKE 1 U nivers mg tablet 6-09 TABLET BY ity o f 00:00: MOUTH AT [place] BEDTIME Medical Branch ATORVASTATI Yes [id number] 40mg TAKE 1 Univers N 40 mg 6-09 TABLET BY ity of tablet 00:00: [facility]OUTH AT [place] [facility] Branch SULFAMETHOX Yes [id number] TAKE 1 Univers AZOLE-TRIME 6-02 TABLET BY ity of THOPRIM 00:00: MOUTH 2 [place] 800-160 mg 00 TIMES Medical per tablet DAILY Branch SULFAMETHOX Yes [id number] TAKE 1 Univers AZOLE-TRIME 6-02 TABLET BY ity of THOPRIM 00:00: MOUTH 2 [place] 800-160 mg 00 TIMES Medical per tablet DAILY Branch SULFAMETHOX Yes [id number] TAKE 1 Univers AZOLE-TRIME 6-02 TABLET BY ity of THOPRIM 00:00: MOUTH 2 [place] 800-160 mg 00 TIMES Medical per tablet DAILY Branch HYDROCHLORO Yes Essential 25mg TAKE 1 Univers THIAZIDE 25 5-06 hypertensio TABLET BY ity of mg tablet 00:00: n MOUTH [place] 00 EVERY Medical MORNING Branch DIPHENOXYLA Yes Irritable TAKE 2 Univers TE-ATROPINE 4-28 bowel TABLETS BY i ty of 2.5-0.025 00:00: syndrome, MOUTH 4 [place] mg tablet 00 unspecified TIMES Me dical type DAILY Branch NEEDED FOR LOOSE STOOLS *MAY MAKE DROWSY* DOXYCYCLINE Yes MSSA TAKE 1 Univ ers HYCLATE 100 4-26 (methicilli CAPSULE BY ity of mg capsule 00:00: n-susceptib MOUTH 2 [place] 00 le TIMES Medical Staphylococ DAILY FOR [facility] aureus) 10 DAYS AT colonizatio ONSET OF n SKIN INFECTION TRIAMCINOLO Yes Skin APPLY Unive rs NE 4-26 infection THINLY TO ity o f ACETONIDE 00:00: AFFECTED [place] 0.1 % cream 00 AREA(S) 3 Med ical TIMES Branch DAILY DOXYCYCLINE Yes [id number] TAKE 1 Univers HYCLATE 100 4-26 CAPSULE BY it y of mg capsule 00:00: MOUTH 2 [place] 00 TIMES Medical DAILY FOR Branch 10 DAYS AT ONSET OF SKIN INFECTION DOXYCYCLINE Yes [id number] TAKE 1 Univers HYCLATE 100 4-26 CAPSULE BY it y of mg capsule 00:00: MOUTH 2 [place] 00 TIMES Medical DAILY FOR Branch 10 DAYS AT ONSET OF SKIN INFECTION DOXYCYCLINE Yes [id number] TAKE 1 Univers HYCLATE 100 4-26 CAPSULE BY it y of mg capsule 00:00: MOUTH 2 [place] 00 TIMES Medical DAILY FOR Branch 10 DAYS AT ONSET OF SKIN INFECTION TOUJEO Yes Diabetes INJECT 72 Un reinier SOLOSTAR 4-16 mellitus UNIT(S) ity of U-300 00:00: type 2 in UNDER THE [place] INSULIN 300 00 obese SKIN ONCE Me dical unit/mL DAILY IN Branch (1.5 mL) THE InPn EVENING (ADJUSTING DOSE BY 2 UNIT(S) DAILY UNTIL FBS<200) HYDROcodone Yes chronic TAKE 1 U nivers -acetaminop 4-15 pain TABLET BY ity of hen 10-325 00:00: MOUTH [place] mg tablet 00 EVERY 4 Medical HOURS Branch NEEDED FOR PAIN (SCALE 4-6). *MAY MAKE DROWSY* Indication s: chronic pain blood sugar Yes Type 2 Use as Un reinier diagnostic 4-05 diabetes directed i ty of (ONETOUCH 00:00: mellitus for three [place] VERIO TEST 00 without times a Med ical STRIPS) complicatio day blood Branch strip n, glucose unspecified monitoring whether for ICD director long term care of: E11.9 insulin use metformin Yes Diabetes 1000mg Take 2 Univers ER 500 mg 4-05 mellitus tablets by ity of 24 hr 00:00: type 2 in mouth 2 [place] tablet 00 obese (two) Medical times Branch daily. blood sugar Yes [id number] Use as Univers diagnostic 4-05 directed ity o f (ONETOUCH 00:00: for three [place] as VERIO TEST 00 times a Medica l STRIPS) day blood Branch strip glucose monitoring for ICD of: E11.9 blood sugar Yes [id number] Use as Univers diagnostic 4-05 directed ity o f (ONETOUCH 00:00: for three [place] as VERIO TEST 00 times a Medica l STRIPS) day blood Branch strip glucose monitoring for ICD of: E11.9 blood sugar Yes [id number] Use as Univers diagnostic 4-05 directed ity o f (ONETOUCH 00:00: for three [place] as VERIO TEST 00 times a Medica l STRIPS) day blood Branch strip glucose monitoring for ICD of: E11.9 empaglifloz Yes Diabetes 1{tbl} Take 1 Univers in 3-30 mellitus tablet by ity of (JARDIANCE) 00:00: type 2 in mouth [place] 25 mg Tab 00 obese daily. Medical Branch LEVETIRACET Yes Seizure TAKE 1 U nivers AM 1,000 mg 3-30 disorder TABLET BY ity of tablet 00:00: MOUTH 2 [place] 00 TIMES Medical DAILY Branch Insulin Yes Type 2 USE Univer s [place], 3-30 diabetes DIRECTED ity of Disposable, 00:00: mellitus FOR [place] (SURE 00 without INSULIN Medical COMFORT PEN complicatio ADMINISTRA Branch NEEDLE) 32 n, TION gauge x unspecified " Ndle whether director long term care insulin use METOPROLOL Yes TAKE 1 Unive rs SUCCINATE 3-30 TABLET BY ity o f XL 50 mg 24 00:00: MOUTH [place] hr tablet 00 EVERY DAY Medic al WITH FOOD Branch Blood-Gluco Yes Type 2 Use as Un reinier se Meter 3-30 diabetes directed ity of (ONETOUCH 00:00: mellitus for BID [place] ULTRA2 00 without blood Medical METER) Kit complicatio glucose Branch n, monitoring unspecified for ICD whether E11.9 halfway insulin use METOPROLOL Yes TAKE 1 Unive rs SUCCINATE 3-30 TABLET BY ity o f XL 50 mg 24 00:00: MOUTH [place] hr tablet 00 EVERY DAY Medic al WITH FOOD Branch Blood-Gluco Yes [id number] Use as Univers se Meter 3-30 directed ity of (ONETOUCH 00:00: for BID [place] ULTRA2 00 blood Medical METER) Kit glucose Branch monitoring for ICD E11.9 METOPROLOL Yes TAKE 1 Unive rs SUCCINATE 3-30 TABLET BY ity o f XL 50 mg 24 00:00: MOUTH [place] hr tablet 00 EVERY DAY Medic al WITH FOOD Branch Blood-Gluco Yes [id number] Use as Univers se Meter 3-30 directed ity of (ONETOUCH 00:00: for BID [place] ULTRA2 00 blood Medical METER) Kit glucose Branch monitoring for ICD E11.9 METOPROLOL Yes TAKE 1 Unive rs SUCCINATE 3-30 TABLET BY ity o f XL 50 mg 24 00:00: MOUTH [place] hr tablet 00 EVERY DAY Medic al WITH FOOD Branch Blood-Gluco Yes [id number] Use as Univers se Meter 3-30 directed ity of (ONETOUCH 00:00: for BID [place] ULTRA2 00 blood Medical METER) Kit glucose Branch monitoring for ICD E11.9 PROMETHAZIN Yes Drug-induce TAKE 1 Univers E 25 mg 3-26 d nausea TABLET BY ity of tablet 00:00: and MOUTH [place] 00 vomiting EVERY 6 Medical HOURS Branch NEEDED FOR NAUSEA AND VOMITING *MAY MAKE DROWSY* HYDROCHLORO 0 2020- No Essential 25mg TAKE 1 Univers THIAZIDE 25 3-24 05-06 hypertensio TABLET BY ity of mg tablet 00:00: 00:00 n MOUTH [place] 00 :00 EVERY Medical MORNING Branch BACLOFEN 20 Yes Chronic low TAKE 1 Univers mg tablet 3-17 back pain TABLET BY ity of 00:00: MOUTH 3 [place] 00 TIMES Medical DAILY Branch atorvastati Yes Hyperlipide 40mg Take 1 Univers n 40 mg 3- jose a, tablet by ity of tablet 00:00: unspecified mouth at [place] 00 hyperlipide bedtime. Medi radha jose a type Branch PANTOPRAZOL Yes TAKE 1 Univ ers E 40 mg EC 2-02 TABLET BY ity of tablet 00:00: MOUTH ONCE [place] 00 DAILY Medical BEFORE A Branch MEAL MUPIROCIN 2 2019-03 Yes MRSA nasal APPLY Univers % ointment 204 colonizatio TOPICALLY ity of 00:00: n EVERY 12 [place] 00 HOURS Medical USING Branch SEPERATE COTTON SWABS IN BOTH NOSTRILS FOR 5 DAYS. SERTraline 2019-03 Yes Depression, 200mg Take 2 Univers 100 mg 1-09 unspecified tablets by ity of tablet 00:00: depression mouth [place] 00 type daily. Medical Branch losartan 2019-03 Yes Essential 100mg Take 1 U nivers 100 mg 1-09 hypertensio tablet by i ty of tablet 00:00: n mouth [place] 00 every Medical morning. Branch lurasidone 2019-03 Yes Bipolar 40mg Take 1 Un reinier (LATUDA) 40 1-09 disorder, tablet by ity of mg tablet 00:00: current mouth at [place] 00 episode bedtime. Medical mixed, Branch moderate icosapent 2019-03 Yes Mixed 1g Take 1 Unive rs ethyL 1-09 hyperlipide capsule by i ty of (VASCEPA) 1 00:00: jose a mouth 2 [place] as gram 00 (two) Medical capsule times Branch daily. hydrOXYzine 2019-03 Yes Neurodermat TAKE 1 Univers 25 mg 1-09 itis TABLET BY ity of tablet 00:00: MOUTH 3 [place] 00 TIMES Medical DAILY *MAY Branch MAKE DROWSY* clopidogreL 2019-03 Yes Essential 75mg Take 1 Univers 75 mg 1-09 hypertensio tablet by it y of tablet 00:00: n mouth [place] 00 every Medical morning. Branch icosapent 2019-03 Yes [id number] 1g Take 1 U nivers ethyL 1-09 capsule by ity of (VASCEPA) 1 00:00: mouth 2 [place] gram 00 (two) Medical capsule times Branch daily. icosapent 2019-03 Yes [id number] 1g Take 1 U nivers ethyL 1-09 capsule by ity of (VASCEPA) 1 00:00: mouth 2 [place] gram 00 (two) Medical capsule times Branch daily. icosapent 2019-03 Yes [id number] 1g Take 1 U nivers ethyL 1-09 capsule by ity of (VASCEPA) 1 00:00: mouth 2 [place] gram 00 (two) Medical capsule times Branch daily. liraglutide Yes Diabetes 1.8mg inject 1.8 Univers (VICTOZA 8-19 mellitus mg under ity of 3-SOILA) 0.6 00:00: type 2 in the skin [place] mg/0.1 mL 00 obese daily. Medical (18 mg/3 Branch mL) injection amLODIPine 2019- Yes Essential 10mg Take 1 Univers 10 mg 8-19 hypertensio tablet by it y of tablet 00:00: n mouth [place] 00 every Medical morning. Branch ibuprofen 2019- Yes Chronic low 800mg Take 1 Univers 800 mg 8-18 back pain tablet by ity of tablet 00:00: mouth [place] 00 daily. Medical Branch fexofenadin Yes Take by Un reinier e/pseudoeph 3-03 mouth. ity of edrine 19:12: [place] (JOLYNN-D 24 Medical 24 HOUR Branch ORAL) fexofenadin 2020-0 Yes Take by Un reinier e/pseudoeph 3-03 mouth. ity of edrine 13:12: [place] (JOLYNN-D 24 Medical 24 HOUR Branch ORAL) fexofenadin 2020-0 Yes Take by Un reinier e/pseudoeph 3-03 mouth. ity of edrine 13:12: [place] (JOLYNN-D 24 Medical 24 HOUR Branch ORAL) fexofenadin 2020-0 Yes Take by Un reinier e/pseudoeph 3-03 mouth. ity of edrine 13:12: [place] (JOLYNN-D 24 Medical 24 HOUR Branch ORAL) CLINDAMYCIN 2020-0 Yes Impetigo TAKE 1 Univers 300 mg 2-26 folliculari CAPSULE BY ity of capsule 00:00: s MOUTH 4 [place] 00 TIMES Medical DAILY WITH Branch FOOD UNTIL ALL TAKEN CLINDAMYCIN 2020-0 Yes TAKE 1 Univers 300 mg 2-26 CAPSULE BY ity of capsule 00:00: MOUTH 4 [place] TIMES Medical DAILY WITH Branch FOOD UNTIL ALL TAKEN CLINDAMYCIN 2020-0 Yes TAKE 1 Univers 300 mg 2-26 CAPSULE BY ity of capsule 00:00: MOUTH 4 [place] TIMES Medical DAILY WITH Branch FOOD UNTIL ALL TAKEN CLINDAMYCIN 2020-0 Yes TAKE 1 Univers 300 mg 2-26 CAPSULE BY ity of capsule 00:00: MOUTH 4 [place] TIMES Medical DAILY WITH Branch FOOD UNTIL ALL TAKEN foLIC acid 2018- Yes 1mg Take 1 mg Un reinier 1 mg tablet 2-16 by mouth ity of 19:27: daily. [address] foLIC acid 2018- Yes 1mg Take 1 mg Un reinier 1 mg tablet 2-16 by mouth ity of 13:27: daily. [address] foLIC acid 2018- Yes 1mg Take 1 mg Un reinier 1 mg tablet 2-16 by mouth ity of 13:27: daily. [address] foLIC acid 2019- Yes 1mg Take 1 mg Un reinier 1 mg tablet 2-16 by mouth ity of 13:27: daily. [address] lidocaine 2019-0 Yes 15mL Take 15 mL Un reinier 2% viscous 8-28 by mouth ity o f 2 % 00:00: every 6 [place] [facility] [place] 00 (six) Medical hours as Branch needed for Pain (scale 4-6). lidocaine 2018- Yes 15mL Take 15 mL Un reinier 2% viscous 8-28 by mouth ity o f 2 % 00:00: every 6 [place] solution 00 (six) Medical hours as Branch needed for Pain (scale 4-6). lidocaine 2019-0 Yes 15mL Take 15 mL Un reinier 2% viscous 8-28 by mouth ity o f 2 % 00:00: every 6 [place] solution 00 (six) Medical hours as Branch needed for Pain (scale 4-6). lidocaine 2018-0 Yes 15mL Take 15 mL Un reinier 2% viscous 8-28 by mouth ity o f 2 % 00:00: every 6 [place] solution 00 (six) Medical hours as Branch needed for Pain (scale 4-6). hydrocortis Yes [id number] Apply to Univers one 2.5 % 2-13 area(s) 2 ity o f cream 00:00: (two) [place] 00 times Medical daily. Branch hydrocortis Yes [id number] Apply to Univers one 2.5 % 2-13 area(s) 2 ity o f cream 00:00: (two) [place] 00 times Medical daily. Branch hydrocortis Yes [id number] Apply to Univers one 2.5 % 2-13 area(s) 2 ity o f cream 00:00: (two) [place] 00 times Medical daily. Branch hydrocortis Yes Neurodermat Apply to Univers one 2.5 % 2-13 itis area(s) 2 ity o f cream 00:00: (two) [place] 00 times Medical daily. [place] Levetiracet Yes 1,000 mg = Memoria am 1000 MG 6-27 1 tab, PO, l Oral Tablet 19:30: BID, # 60 H ermann [Keppra] 00 tab, 0 Refill(s), Pharmacy: [facility] Levetiracet Yes 1,000 mg = Memoria am 1000 MG 6-27 1 tab, PO, l Oral Tablet 19:30: BID, # 60 H ermann [Keppra] 00 tab, 0 Refill(s), Pharmacy: [facility] Aspirin 81 No Notes: Do Me moria MG Enteric 6-27 not crush l Coated 14:00: or chew. [place] Tablet 00 (Same As: Ecotrin) Protonix No Notes: Memoria 6-27 Tablet l 14:00: should not Chris 00 be chewed or crushed. (Same as: Protonix) Zoloft No Notes: Memoria 6-27 (Same as: l 14:00: Zoloft) Chris 00 Lopressor No Notes: Memori a 6-27 (Same as: l 14:00: Lopressor) [place] Losartan No Notes: Memoria 6-27 (Same as: l 14:00: Cozaar) Chris 00 Hydrochloro No Notes: Jorge jakob thiazide 6-27 (Same as: l 14:00: Hydrodiuri [place] 00 l) With food. Amlodipine No Notes: Memor ia 6-27 (Same as: l 14:00: Norvasc) Chris 00 Plavix No Notes: Memoria 6-27 (Same As: l 14:00: Plavix) [place] Aspirin 81 No Notes: Do Me moria MG Enteric 6-27 not crush l Coated 14:00: or chew. Chris Tablet 00 (Same As: Ecotrin) Protonix No Notes: Memoria 6-27 Tablet l 14:00: should not [place] 00 be chewed or crushed. (Same as: Protonix) Zoloft No Notes: Memoria 6-27 (Same as: l 14:00: Zoloft) [place] 00 Lopressor No Notes: Memori a 6-27 (Same as: l 14:00: Lopressor) Chris Losartan No Notes: Memoria 6-27 (Same as: l 14:00: Cozaar) Chris 00 Hydrochloro No Notes: Jorge jakob thiazide 6-27 (Same as: l 14:00: Hydrodiuri [place] 00 l) With food. Amlodipine No Notes: Memor ia 6-27 (Same as: l 14:00: Norvasc) Chris 00 Plavix No Notes: Memoria 6-27 (Same As: l 14:00: Plavix) Chris 00 Insulin 2017-0 No Notes: Memoria Lispro 6-27 (Same as: l 13:46: Humalog ) Chris 00 Roll in palms of hands gently; Do not shake `vigorousl y. "Single Patient Use Only " WASTE: F/P - Black; E - Municipal Trash Bin Stable for 28 days at room temperatur e. Expires in days from ____Date Dextrose 2018-0 No 25 gm, 50 Jorge jakob 50% Syringe 6-27 mL, Route: l 13:46: IVP, Drug Chris 00 Form: INJ, Dosing Weight 78.7, kg, PRN, PRN Blood Glucose Results, Start date: 09/16/17 8:46:00 CDT, Duration: 30 day, Stop date: 10/16/17 8:45:00 CDT Insulin 2018-0 No Notes: Memoria Lispro 6-27 (Same as: l 13:46: Humalog ) Chris 00 Roll in palms of hands gently; Do not shake `vigorousl y. "Single Patient Use Only " WASTE: F/P - Black; E - Municipal Trash Bin Stable for 28 days at room temperatur e. Expires in days from ____Date Dextrose 2018-0 No 25 gm, 50 Jorge jakob 50% Syringe 6-27 mL, Route: l 13:46: IVP, Drug Chris 00 Form: INJ, Dosing Weight 78.7, kg, PRN, PRN Blood Glucose Results, Start date: 09/16/17 8:46:00 CDT, Duration: 30 day, Stop date: 10/16/17 8:45:00 CDT Glucagon 2018-0 No 1 mg, Memoria 6-27 Route: IM, l 13:46: Drug form: [place] 00 PDR/INJ, PRN, Dosing Weight 78.7, kg, PRN Blood Glucose Results, Start date: 09/16/17 8:46:00 CDT, Duration: 30 day, Stop date: 10/16/17 8:45:00 CDT Glucagon 2018-0 No 1 mg, Memoria 6-27 Route: IM, l 13:46: Drug form: [place] 00 PDR/INJ, PRN, Dosing Weight 78.7, kg, PRN Blood Glucose Results, Start date: 09/16/17 8:46:00 CDT, Duration: 30 day, Stop date: 10/16/17 8:45:00 CDT Lipitor No Notes: Memoria 6- (Same As: l 02:00: Lipitor) Lipitor No Notes: Memoria 6- (Same As: l 02:00: Lipitor) Insulin No Notes: Memoria Lispro 09-15 (Same as: l 19:33: Humalog ) Roll in palms of hands gently; Do not shake `vigorousl y. "Single Patient Use Only " WASTE: F/P - Black; E - Municipal Trash Bin Stable for 28 days at room temperatur e. Expires in days from ____Date Dextrose 0 No 25 gm, 50 Jorge jakob 50% Syringe 6-26 mL, Route: l 19:33: IVP, Drug Form: INJ, Dosing Weight 78.7, kg, PRN, PRN Blood Glucose Results, Start date: 09/15/17 14:33:00 CDT, Duration: 30 day, Stop date: 10/15/17 14:32:00 CDT Glucagon No 1 mg, Memoria 09-15 Route: IM, l 19:33: Drug form: PDR/INJ, PRN, Dosing Weight 78.7, kg, PRN Blood Glucose Results, Start date: 09/15/17 14:33:00 CDT, Duration: 30 day, Stop date: 10/15/17 14:32:00 CDT Insulin 2017-0 No Notes: Memoria Lispro 09-15 (Same as: l 19:33: Humalog ) Roll in palms of hands gently; Do not shake `vigorousl y. "Single Patient Use Only " WASTE: F/P - Black; E - Municipal Trash Bin Stable for 28 days at room temperatur e. Expires in days from ____Date Dextrose 2018-0 No 25 gm, 50 Jorge jakob 50% Syringe 6-26 mL, Route: l 19:33: IVP, Drug [place] 00 Form: INJ, Dosing Weight 78.7, kg, PRN, PRN Blood Glucose Results, Start date: 09/15/17 14:33:00 CDT, Duration: 30 day, Stop date: 10/15/17 14:32:00 CDT Glucagon 2018-0 No 1 mg, Memoria - Route: IM, l 19:33: Drug form: Chris 00 PDR/INJ, PRN, Dosing Weight 78.7, kg, PRN Blood Glucose Results, Start date: 09/15/17 14:33:00 CDT, Duration: 30 day, Stop date: 10/15/17 14:32:00 CDT Keppra 2018-0 No 1,000 mg, Memori a 6-26 100 mL, l 18:00: Route: [place] 00 IVPB, Drug form: INJ, Q12H, Dosing Weight 78.7, kg, Start date: 09/15/17 13:00:00 CDT, Duration: 30 day, Stop date: 10/15/17 1:00:00 CDT Keppra 2018-0 No 1,000 mg, Memori a 6-26 100 mL, l 18:00: Route: [place] 00 IVPB, Drug form: INJ, Q12H, Dosing Weight 78.7, kg, Start date: 09/15/17 13:00:00 CDT, Duration: 30 day, Stop date: 10/15/17 1:00:00 CDT Acetaminoph No Notes: Jorge jakob en 325 MG / 09-15 (Same as: l Hydrocodone 10:05: [place] Diana nn Bitartrate 00 325/5) Do 5 MG Oral not exceed Tablet 4gm/day of [[place] acetaminop 5/325] hen. Acetaminoph No Notes: Jorge jakob en 325 MG / 09-15 (Same as: l Hydrocodone 10:05: [place] Diana nn Bitartrate 00 325/5) Do 5 MG Oral not exceed Tablet 4gm/day of [[place] acetaminop 5/325] hen. Acetaminoph No Notes: Jorge jakob en 325 MG / 09-15 (Same as: l Hydrocodone 06:59: [place] Diana nn Bitartrate 00 325/5) Do 5 MG Oral not exceed Tablet 4gm/day of [[place] acetaminop 5/325] hen. Acetaminoph No Notes: Jorge jakob en 325 MG / 09-15 (Same as: l Hydrocodone 06:59: [place] Diana nn Bitartrate 00 325/5) Do 5 MG Oral not exceed Tablet 4gm/day of [[place] acetaminop 5/325] hen. levETIRAcet No 1,000 mg, M emoria am 09-15 100 mL, l 05:30: Route: [place] 00 IVPB, Drug form: INJ, Q15Min, Start date: 09/15/17 0:30:00 CDT, Duration: 2 doses or times, Stop date: 09/15/17 0:45:00 CDT levETIRAcet No 1,000 mg, M emoria am 09-15 100 mL, l 05:30: Route: [place] 00 IVPB, Drug form: INJ, Q15Min, Start date: 09/15/17 0:30:00 CDT, Duration: 2 doses or times, Stop date: 09/15/17 0:45:00 CDT Saline No Notes: Memoria Flush 0.9% 09-15 (Same as: l 05:15: BD Posiflush) Acetaminoph No Notes: Do M emoria en 09-15 not exceed l 05:15: 4 gm/day. (Same as: Tylenol) Ondansetron No Notes: Jorge jakob 09-15 (Same as: l 05:15: Zofran) MEDICATION WASTE Product Size: 4 mg Product Wasted: ___ mg Sodium No 1,000 mL, Memori a Chloride 09-15 Rate: 75 l 0.9% IV 05:15: ml/hr, [place] 1,000 mL 00 Infuse over: 13.3 hr, Route: IV, Dosing Weight 78.7 kg, Total Volume: 1,000, Start date: 09/15/17 0:15:00 CDT, Duration: 30 day, Stop date: 10/15/17 0:14:00 CDT, 1.91, m2 Saline No Notes: Memoria Flush 0.9% 09-15 (Same as: l 05:15: BD [place] 00 Posiflush) Acetaminoph No Notes: Do M emoria en 09-15 not exceed l 05:15: 4 gm/day. Chris 00 (Same as: Tylenol) Ondansetron No Notes: Jorge jakob 09-15 (Same as: l 05:15: Zofran) 00 MEDICATION WASTE Product Size: 4 mg Product Wasted: ___ mg Sodium No 1,000 mL, Memori a Chloride 09-15 Rate: 75 l 0.9% IV 05:15: ml/hr, [place] 1,000 mL 00 Infuse over: 13.3 hr, Route: IV, Dosing Weight 78.7 kg, Total Volume: 1,000, Start date: 09/15/17 0:15:00 CDT, Duration: 30 day, Stop date: 10/15/17 0:14:00 CDT, 1.91, m2 Keppra No 2,000 mg, Memori a 09-15 Route: l 05:11: IVPB, [place] 00 ONCE, Dosing Weight 78.7, kg, Start date: 09/15/17 0:11:00 CDT, Stop date: 09/15/17 0:11:00 CDT Keppra No 2,000 mg, Memori a 09-15 Route: l 05:11: IVPB, Chris 00 ONCE, Dosing Weight 78.7, kg, Start date: 09/15/17 0:11:00 CDT, Stop date: 09/15/17 0:11:00 CDT Folic Acid Yes 1 mg = 1 Mem oria 1 MG Oral 6-26 tab, PO, l Tablet 05:02: Daily, # Chris 00 30 tab, 0 Refill(s) baclofen 20 2018 Yes 20 mg = 1 M emoria mg oral 6-26 tab, PO, l tablet 05:02: BID, # 90 Aj n 00 tab, 0 Refill(s) clopidogrel Yes 75 mg = 1 M emoria 75 MG Oral 6-26 tab, PO, l Tablet 05:02: Daily, # Chris [Plavix] 00 30 tab, 0 Refill(s) Aspirin 81 2018-0 Yes 81 mg = 1 Me moria MG Enteric 6-26 tab, PO, l Coated 05:02: Daily, # Chris Tablet 00 90 tab, 3 Refill(s) Protonix 2018-0 Yes 40 mg, PO, Mem oria 6-26 Daily, # l 05:02: 30 tab, 0 Chris 00 Refill(s) Hydrochloro 2017-0 Yes 25 mg, PO, Memoria thiazide 6-26 Daily, 0 l 05:02: Refill(s) [place] 00 Linagliptin 2017-0 Yes 1 tab, PO, Memoria 2.5 MG / 6-26 BID-Meals, l Metformin 05:02: # 180 tab, He rmann hydrochlori 00 1 de 500 MG Refill(s) Oral Tablet [Jentadueto 2.5/500] losartan 2017-0 Yes 100 mg = 1 Mem oria 100 mg oral 6-26 tab, PO, l tablet 05:02: Daily, Silva Peerz 00 30 tab, 0 Refill(s) Sertraline Yes 200 mg = 2 M emoria 100 MG Oral 6-26 tab, PO, l Tablet 05:02: Daily, Silva Perez [Zoloft] 00 30 tab, 1 Refill(s) amLODIPine Yes 5 mg = 1 Mem oria 5 mg oral 6-26 tab, PO, l tablet 05:02: Daily, # Chris 00 30 tab, 0 Refill(s) Metoprolol 2017-0 Yes 50 mg = 1 Me moria Tartrate 50 6-26 tab, PO, l MG Oral 05:02: Daily, # Aj n Tablet 00 90 tab, 3 [Lopressor] Refill(s) atorvastati 2017-0 Yes 20 mg = 1 M emoria n 20 MG 6-26 tab, PO, l Oral Tablet 05:02: Bedtime, Silva Perez [Lipitor] 00 30 tab, 0 Refill(s) Hydroxyzine 2017-0 Yes 25 mg = 1 M emoria Hydrochlori 6-26 tab, PO, l de 25 MG 05:02: TID, # 90 Herm shade Oral Tablet 00 tab, 0 Refill(s) Folic Acid 2018-0 Yes 1 mg = 1 Mem oria 1 MG Oral 6-26 tab, PO, l Tablet 05:02: Daily, # Chris 00 30 tab, 0 Refill(s) baclofen 20 2018-0 Yes 20 mg = 1 M emoria mg oral 6-26 tab, PO, l tablet 05:02: BID, # 90 Aj n 00 tab, 0 Refill(s) clopidogrel 2018-0 Yes 75 mg = 1 M emoria 75 MG Oral 6-26 tab, PO, l Tablet 05:02: Daily, # Chris [Plavix] 00 30 tab, 0 Refill(s) Aspirin 81 2018-0 Yes 81 mg = 1 Me moria MG Enteric 6-26 tab, PO, l Coated 05:02: Daily, # Chris Tablet 00 90 tab, 3 Refill(s) Protonix 2017-0 Yes 40 mg, PO, Mem oria 6-26 Daily, # l 05:02: 30 tab, 0 [place] 00 Refill(s) Hydrochloro 2017-0 Yes 25 mg, PO, Memoria thiazide 6-26 Daily, 0 l 05:02: Refill(s) [place] 00 Linagliptin 2017-0 Yes 1 tab, PO, Memoria 2.5 MG / 6-26 BID-Meals, l Metformin 05:02: # 180 tab, He jaimeann hydrochlori 00 1 de 500 MG Refill(s) Oral Tablet [Jentadueto 2.5/500] losartan 2018-0 Yes 100 mg = 1 Mem oria 100 mg oral 6-26 tab, PO, l tablet 05:02: Daily, # Chris 00 30 tab, 0 Refill(s) Sertraline 2017-0 Yes 200 mg = 2 M emoria 100 MG Oral 6-26 tab, PO, l Tablet 05:02: Daily, Silva Perez [Zoloft] 00 30 tab, 1 Refill(s) amLODIPine 2018-0 Yes 5 mg = 1 Mem oria 5 mg oral 6-26 tab, PO, l tablet 05:02: Daily, # Chris 00 30 tab, 0 Refill(s) Metoprolol 2017-0 Yes 50 mg = 1 Me moria Tartrate 50 6-26 tab, PO, l MG Oral 05:02: Daily, # Aj n Tablet 00 90 tab, 3 [Lopressor] Refill(s) atorvastati Yes 20 mg = 1 M emoria n 20 MG 6-26 tab, PO, l Oral Tablet 05:02: Bedtime, # [place] [Lipitor] 00 30 tab, 0 Refill(s) Hydroxyzine Yes 25 mg = 1 M emoria Hydrochlori 6-26 tab, PO, l de 25 MG 05:02: TID, # 90 Herm shade Oral Tablet 00 tab, 0 Refill(s) Vital Signs Vital Name Observation Time Observation Value Comments Source Respitory Rate 2017-09-16 22:00:00 Memori al Chris Systolic (mm Hg) 2017-09-16 21:00:00 Jorge rial Chris Diastolic (mm Hg) 2017-09-16 21:00:00 Mem orial Chris Respitory Rate 2017-09-16 21:00:00 Memori al Chris Systolic (mm Hg) 2017-09-16 20:00:00 Jorge rial Chris Diastolic (mm Hg) 2017-09-16 20:00:00 Mem orial Chris Respitory Rate 2017-09-16 20:00:00 Memori al Chris Systolic (mm Hg) 2017-09-16 19:00:00 Jorge rial Chris Diastolic (mm Hg) 2017-09-16 19:00:00 Mem orial Chris Temperature Oral (F) 2017-09-16 13:00:00 98.3 F Memorial Chris Temperature Oral (F) 2017-09-16 09:00:00 98.2 F [facility] Chris Temperature Oral (F) 2017-09-16 05:00:00 98.6 F [facility] [place] BMI Calculated 2017-09-15 04:38:00 Memori al [place] Height 2017-09-15 04:38:00 162.56 cm [facility] Weight 2017-09-15 04:38:00 [facility] Procedures Procedure Date / Time Performed Performing Clinician Mariah e Appendectomy [facility] Hysterectomy [facility] Plan of Care Planned Activity Planned Date Details Comments Source Future Scheduled 2021-07-05 Creatinine measurement U [facility] Test 00:00:00 (procedure) [code = Medical Branch [id number]] Future Scheduled 2021-07-05 Depression screening [facility] Test 00:00:00 (procedure) [code = Medical Branch [id number]] Future Scheduled 2021-07-05 [facility] lipoprotein Medical Branch cholesterol level (procedure) [code = 020961652] Future Scheduled 2021-01-04 Hemoglobin A1c [facility] Test 00:00:00 measurement Medical Branch (procedure) [code = 52438527] Future Scheduled 2020-11-21 [facility]00 (Season Ended) [code = Medic al Branch INFLUENZA VACCINE (Season Ended)] Future Scheduled 2020-11-08 Microalbumin [facility] Test 00:00:00 measurement, urine, Medical Branch quantitative (procedure) [code = 636059136] Future Scheduled 2020-05-23 Diabetic foot [facility] Test 00:00:00 examination Medical Branch (regime/therapy) [code = 062111740] Future Scheduled 2015-09-18 Screening for [facility] Test 00:00:00 malignant neoplasm of Medica l Branch lung (procedure) [code = 352786007] Future Scheduled 2010 Screening for occult [facility] Test 00:00:00 blood in feces Medical Bran h (procedure) [code = 411827231] Future Scheduled 2010 Stool DNA-based [facility] Test 00:00:00 colorectal cancer Medical Br anch screening (procedure) [code = 131674406649992] Future Scheduled 2010 Flexible fiberoptic [facility] Test 00:00:00 sigmoidoscopy Medical Branch (procedure) [code = 39031535] Future Scheduled 2010 Screening for [facility] Test 00:00:00 malignant neoplasm of Medica l Branch colon (procedure) [code = 463376557] Future Scheduled 2010 Screening for [facility] Test 00:00:00 malignant neoplasm of Medica l Branch colon (procedure) [code = 243144777] Future Scheduled 2010 Zoster Recombinant [facility] Test 00:00:00 Vaccine (SHINGRIX) (1 Medica l Branch of 2) [code = Zoster Recombinant Vaccine (SHINGRIX) (1 of 2)] Future Scheduled 2000 Screening for [facility] Test 00:00:00 malignant neoplasm of Medica l Branch breast (procedure) [code = 794987879] Future Scheduled 1981 Scre[address] [facility] Test 00:00:00 malignant neoplasm of Medica l Branch cervix (procedure) [code = 668058413] Future Scheduled 1979-09-18 DTaP,Tdap,and Td [facility] [place] Test 00:00:00 Vaccines (1 - Tdap) Medical Branch [code = DTaP,Tdap,and Td Vaccines (1 - Tdap)] Future Scheduled 1978 Hepatitis C screening [facility] [place] [facility] 00:00:00 (procedure) [code = Medical Branch 264122483] Future Scheduled 1976 SARS-CoV-2 (COVID-19) [facility] [place] Test 00:00:00 Vaccine (1) [code = Medical Branch SARS-CoV-2 (COVID-19) Vaccine (1)] Future Scheduled 1970 [facility] of [facility] [place] Test 00:00:00 (procedure) [code = Medical Branch [id number]] Encounters Start End Encounter Admission Attending Care Care Encounter Source Date/Time Date/Time Type Type Clinicians Facility Department ID 2021-01-28 2021-01-28 Telephone [facility] [id number] Univers 00:00:00 00:00:00 GodwinMOBEXO [id number] it y of [place] [id number] [place] TEDDY?BLEA [phone] [address] MEDICAL OFFICE BUILDING 2021-01-28 2021-01-28 Telephone [facility] [id number] Univers 00:00:00 00:00:00 GodwinMOBEXO [id number] it y of [place] [id number] [place] TEDDY?BLEA [phone] [address] MEDICAL OFFICE BUILDING 2021-01-23 2021-01-23 Telephone [facility] [id number] Univers 00:00:00 00:00:00 [facility] [id number] it y of [place] [id number] [place] TEDDY?BLEA [phone] Ri uri COTTRELL [address] [place] [address] OFFICE BUILDING 2018-11-30 2018-11-30 Leif James [facility] [id number] 00:00:00 00:00:00 [facility] [id number] [place] [id number] Professio [phone] [place] [address] [address] 2018-11-30 2018-11-30 Leif James [facility] [id number] 00:00:00 00:00:00 [facility] [id number] [place] [id number] Professio [phone] [place] [address] [address] 2018-11-29 2018-11-29 Leif James [facility] [id number] 00:00:00 00:00:00 [facility] [id number] [place] [id number] Professio [phone] [place] [address] [address] 2018-11-23 2018-11-23 Telephone Jacob [facility] [id number] 00:00:00 00:00:00 [facility] [id number] [place] [id number] Professio [phone] [place] [address] [address] 2018-11-18 2018-11-18 Leif James [facility] [id number] 00:00:00 00:00:00 [facility] [id number] [place] [id number] Professio [phone] [place] [address] [address] 2018-11-17 2018-11-17 Julisa James CASMIT[facility] [id number] 00:00:00 00:00:00 [facility] [id number] [place] [id number] Professio [phone] [place] [address] [address] 2017-09-15 2017-09-16 Inpatient [facility] [id number] Memoria 04:21:00 22:45:00 r Chris 76 l [facility] Results Test Description Test Time Test Comments Results Result Comments Source CHEM PANEL 2017-09-16 1.4 [facility] Diana nn 08:15:00 CHEM PANEL 2017-09-16 2.7 [facility] nn 08:15:00 CHEM PANEL 2017-09-16 98 [facility] nn 08:15:00 CHEM PANEL 2017-09-16 107 [facility] nn 08:15:00 CHEM PANEL 2017-09-16 25 [facility] nn 08:15:00 CHEM PANEL 2017-09-16 24 [facility] nn 08:15:00 CHEM PANEL 2017-09-16 3.4 [facility] nn 08:15:00 CHEM PANEL 2017-09-16 16 [facility] nn 08:15:00 CHEM PANEL 2017-09-16 8.5 [facility] nn 08:15:00 CHEM PANEL 2017-09-16 7.2 [facility] nn 08:15:00 CHEM PANEL 2017-09-16 87 [facility] nn 08:15:00 CHEM PANEL 2017-09-16 0.3 [facility] nn 08:15:00 CHEM PANEL 2017-09-16 3.5 [facility] nn 08:15:00 CHEM PANEL 2017-09-16 0.68 [facility] Diana nn 08:15:00 CHEM PANEL 2017-09-16 247 [facility] nn 08:15:00 CHEM PANEL 2017-09-16 12 [facility] nn 08:15:00 CHEM PANEL 2017-09-16 141 [facility] nn 08:15:00 CHEM PANEL 2017-09-16 08:15:00 Test Item Value Reference Range Interpretation Comme nts B/C Ratio (test code = B/C Ratio) 18 1 6-25 [facility] [id number] 08:15:003.8[facility]ann[facility] PANEL 2017-09-16 08:15:00 Test Item Value Reference Range Interpretation Comments A/G Ratio (test code = A/G Ratio) 0.9 1 0.7-1.6 [facility] [id number] 08:15:0012.5[facility]annHEMATOLOGY 2017-09-16 08:15:0035.2[facility] AhminikRPSZTVYVRL1012-32-52 08:15:008.0[facility] [id number] 08:15:46216Mmblwofj IhbmqtoPRLXLWRECU0462-62-52 08:15:0014.4[facility] XzqwrobOKCLNWKTTI2428-15-13 08:15:0010.0[facility] [place] [id number] 08:15:0012.2[facility] OjsvhwySBHACLMLHD8293-33-73 08:15:00 34.7Memorial TmujmwtHDAGOWDRBU2304-66-50 08:15:004.12[facility]annHEMATOLOGY 2017-09-16 08:15:0084.3[facility] [id number] 08:15:00 Test Item Value Reference Range Interpretation Comments MCH (test code = MCH) 29.7 pg 27.0-31.0 Memorial [id number] 08:15:0051.4[facility]annHEMATOLOGY 2017-09-16 08:15:006.2[facility] KfnnmfbLTCAMZWLOC8687-31-86 08:15:0040.1[facility]orial EyyhjrwVRUXBHWBDE1713-70-60 08:15:001.3[facility]orial XwhxttgQTWZREXYPJ0659-30-87 08:15:000.1[facility] [id number] 08:15:000.6[facility] Chris [id number] 08:15:005.1[facility] QglfhrmMCOONLDZNA5713-26-84 08:15:001.0 [facility] GjxqtnjAGNRSBKPEY3378-22-16 08:15:004.0[facility] HermannHEMATOLOGY 2017-09-16 08:15:000.1[facility] HermannCHEM LASRV7998-45-20 08:15:001.4[facility] HermannCHEM AZMUP7574-40-09 08:15:002.7[facility] HermannCHEM JJUEP7908-80-15 08:15:0098[facility]annCHEM YWTWE8618-33-74 08:15:88195Xkcncftf HermannCHEM FYTGU1479-21-59 08:15:0025[facility]annCHEM EKQAK8570-37-52 08:15:0024 [facility]annCHEM RDCEX8699-97-38 08:15:003.4[facility] HermannCHEM PANEL 2017-09-16 08:15:0016[facility]annCHEM SRMEF7847-27-12 08:15:008.5[facility]annCHEM XBRCE9378-06-23 08:15:007.2[facility]annCHEM XHYSQ3310-10-89 08:15:0087[facility]annCHEM OZUQZ3671-74-39 08:15:000.3[facility]annCHEM OWNCX2395-85-53 08:15:003.5[facility]annCHEM XVSWM6218-22-41 08:15:000.68 [facility]annCHEM SHPGE8995-77-56 08:15:10316Xsrergwu HermannCHEM PANEL 2017-09-16 08:15:0012[facility] HermannCHEM XFVLK4628-98-05 08:15:59186Rbjcwuuc HermannCHEM ZHGVI8966-59-63 08:15:00 Test Item Value Reference Range Interpretation Comments B/C Ratio (test code = B/C Ratio) 18 1 6-25 [facility]annCHEM SVASS5955-93-45 08:15:003.8[facility] HermannCHEM PANEL 2017-09-16 08:15:00 Test Item Value Reference Range Interpretation Comments A/G Ratio (test code = A/G Ratio) 0.9 1 0.7-1.6 [facility] WVTBP3984-38-00 08:15:0012.5[facility]MATOLOGY 2017-09-16 08:15:0035.2[facility] BvrpsuqQUZRNPJKED6918-62-45 08:15:008.0[facility] CfxcmsuSFOGCICFAB0574-45-02 08:15:61349Kewlnret KyruwtbDZJUGOVOVJ7444-98-45 08:15:0014.4[facility] RdrfmncRNECSTFNLQ9983-34-33 08:15:0010.0[facility] EARNDWRDIK6194-06-57 08:15:0012.2[facility] NncadjqAARJISHADP5484-25-66 08:15:00 34.7[facility] DlxyumuYCRFHFRJNY1112-30-47 08:15:004.12[facility] 2017-09-16 08:15:0084.3[facility] VbpudbkYPCBHNVSJK3003-40-52 08:15:00 Test Item Value Reference Range Interpretation Comments MCH (test code = MCH) 29.7 pg 27.0-31.0 [facility] XncfllaONHCFDZMFY9656-32-78 08:15:0051.4[facility] 2017-09-16 08:15:006.2[facility] YztjpdfFFBSSFBGGX4155-86-25 08:15:0040.1[facility] VppvvhaVNKTXQKZWP7119-74-57 08:15:001.3[facility] BqfdwddBDHNJSVOQH4833-06-73 08:15:000.1[facility] JlmnavhDOYKZGZVVR6963-20-51 08:15:000.6[facility] GIHLKNFSSU5419-17-43 08:15:005.1[facility] GkclprwXMMRWCMCPM6099-49-51 08:15:001.0 [facility] TzkaotbHBJHVGRKDP9930-63-83 08:15:004.0[facility] 2017-09-16 08:15:000.1[facility]DR[facility] UWPYMR2385-00-60 10:22:00Negative *NA*(09/15/17 5:22 AM)[facility] MFDIMH2913-93-34 10:22:00Positive *ABN*(09/15/17 5:22 AM)[facility] TLQCUZ3778-08-10 10:22:00See Note (09/15/17 5:22 AM)[facility] MAOXJB0233-88-38 10:22:00Negative *NA*(09/15/17 5:22 AM)[facility] BERUTI3590-23-43 10:22:00Negative *NA*(09/15/17 5:22 AM)[facility] ZEXPIT6044-44-49 10:22:00Negative *NA*(09/15/17 5:22 AM)[facility] OWUWJV8457-13-66 10:22:00Negative *NA*(09/15/17 5:22 AM)[facility] LHTZOU6928-78-74 10:22:00Negative *NA*(09/15/17 5:22 AM)[facility] WKCJQ9464-15-20 10:22:0019 [facility] BVXXL2024-62-06 10:22:00Negative (09/15/17 5:22 AM) [facility] ZKSUL4415-86-76 10:22:006[facility] QYDQE9481-39-24 10:22:00Negative (09/15/17 5:22 AM)[facility] LLDXA0833-31-84 10:22:00Negative *NA*(09/15/17 5:22 AM)[facility] TMJCZ0776-43-79 10:22:00Moderate *ABN*(09/15/17 5:22 AM)[facility] SSOBZ4467-34-27 10:22:00Yellow *NA*(09/15/17 5:22 AM)[facility] HWPIV0722-72-21 10:22:00Clear (09/15/17 5:22 AM)[facility] STOOL 2017-09-15 10:22:00 Test Item Value Reference Range Interpretation Comments UA Spec Grav (test code = UA Spec 1.017 1 Grav) [facility] LAAWC7242-25-06 10:22:00 Test Item Value Reference Range Interpretation Comments UA pH (test code = UA pH) 5.0 1 5.0-8.0 [facility] SINODS3288-74-85 10:22:00Negative *NA*(09/15/17 5:22 AM) [facility] OXYDEJ5099-24-51 10:22:00Positive *ABN*(09/15/17 5:22 AM) [facility] AYLJZK5681-48-24 10:22:00See Note (09/15/17 5:22 AM)[facility] TNKAJA9682-89-16 10:22:00Negative *NA*(09/15/17 5:22 AM)[facility] WAOROF1757-26-98 10:22:00Negative *NA*(09/15/17 5:22 AM)[facility] LYZVHP7397-08-44 10:22:00Negative *NA*(09/15/17 5:22 AM)[facility] RHJMLU7328-62-12 10:22:00Negative *NA*(09/15/17 5:22 AM)[facility] MEHSLG1761-56-67 10:22:00Negative *NA*(09/15/17 5:22 AM)[facility] JTRVO1144-72-20 10:22:0019[facility] STOOL 2017-09-15 10:22:00Negative (09/15/17 5:22 AM)[facility] STOOL 2017-09-15 10:22:006[facility] BRELC2892-81-05 10:22:00Negative (09/15/17 5:22 AM)[facility] HUPQK2293-44-16 10:22:00Negative *NA*(09/15/17 5:22 AM)[facility] NICZH2414-23-69 10:22:00Moderate *ABN*(09/15/17 5:22 AM)[facility] FIHQI8298-44-12 10:22:00Yellow *NA*(09/15/17 5:22 AM)[facility] CBPWV4632-81-01 10:22:00Clear (09/15/17 5:22 AM)[facility] WKTNP9665-18-33 10:22:00 Test Item Value Reference Range Interpretation Comments UA Spec Grav (test code = UA Spec 1.017 1 Grav) [facility] CEFBW0757-54-31 10:22:00 Test Item Value Reference Range Interpretation Comments UA pH (test code = UA pH) 5.0 1 5.0-8.0 [facility] SUOJG6738-43-31 06:47:0032.0[facility]annCHE[facility] PANEL 2017-09-15 06:47:0093[facility] NOXPL1044-45-59 06:47:003.9[facility] OZXES8190-74-09 06:47:00 Test Item Value Reference Range Interpretation Comments B/C Ratio (test code = B/C Ratio) 22 1 6-25 [facility] OYYOA4656-06-37 06:47:00 Test Item Value Reference Range Interpretation Comments A/G Ratio (test code = A/G Ratio) 1.0 1 0.7-1.6 [facility] WVJLW0138-36-87 06:47:0016[facility]CHE[facility] PANEL 2017-09-15 06:47:0021[facility] SSWVS4349-31-65 06:47:0075[facility] OBLTU9778-36-47 06:47:000.5[facility] LEZUF7262-16-48 06:47:0011.9[facility] HRXIB3203-75-88 06:47:92818Rpybswby HermannCHEM SQXMQ2540-54-31 06:47:007.8[facility] TPSZW2604-20-50 06:47:003.9 [facility] XIIEL8882-78-13 06:47:0024[facility]annCHE[facility] PANEL 2017-09-15 06:47:008.7[facility] RTQEW0587-40-40 06:47:003.9[facility]CHE[facility] JNOQQ6886-14-99 06:47:29738Roppfczf HermannCHEM XXCDH6625-44-61 06:47:000.72[facility] ZTBXQ9543-27-28 06:47:0016[facility] VWODN1144-47-52 06:47:39628Vgcrwubm WbpjdvhBEGPHTUNJS4114-87-55 06:47:000.1 [facility] LiusbbaNBKNGFLWHH0836-87-30 06:47:000.1[facility]annHEMATOLOGY 2017-09-15 06:47:000.9[facility] NtcjkqgSMUBTWHKHG0789-06-08 06:47:004.4[facility] DehlolqQWEOGHITNR9570-77-30 06:47:0010.0[facility] NzgzzooMGUOEMNLEK3506-08-27 06:47:000.6[facility] EvqavqhOYVVXEYIXJ7366-02-58 06:47:000.5[facility] HAGXTDISAS4408-99-35 06:47:0028.4[facility] EadbwesWUBWNKQVAV1564-39-20 06:47:00 6.0[facility] UyeesgtLVPZNKGLQV0720-88-23 06:47:0064.5[facility]HEMATOLOGY 2017-09-15 06:47:00 Test Item Value Reference Range Interpretation Comments MCH (test code = MCH) 29.4 pg 27.0-31.0 [facility] KulqtwiYUZUGALVOL5653-86-23 06:47:0085.3[facility]annHEMATOLOGY 2017-09-15 06:47:0037.0[facility] ZqxgltyKNNVYHCOFM4903-17-80 06:47:0012.8[facility] LjuwlwgKSLKBLOZPF2533-48-35 06:47:004.34[facility] PngmzfqGBBFWBGYLD7217-93-11 06:47:008.2[facility] QxqegxySFZNWCNMVL7662-01-09 06:47:47810Swmzbnvk [place] ABSERUZJGJ2846-79-76 06:47:0014.7[facility] RzcbxlsNUMLIBOJGM1426-36-89 06:47:00 34.5[facility] DsaqrdoCNVCBPTDDQ4041-36-76 06:47:0015.5[facility]annSPECIAL IHMKWLYNF1051-94-39 06:47:008.4[facility]CHE[facility] BJGFX8829-21-74 06:47:003.9 [facility] JHKQN8668-91-23 06:47:00 Test Item Value Reference Range Interpretation Comments B/C Ratio (test code = B/C Ratio) 22 1 6-25 [facility] KSDMG2348-85-35 06:47:00 Test Item Value Reference Range Interpretation Comments A/G Ratio (test code = A/G Ratio) 1.0 1 0.7-1.6 [facility] ERPSN7780-65-04 06:47:0016[facility]annCHE[facility] PANEL 2017-09-15 06:47:0021[facility]annCHE[facility] KBONA3605-05-65 06:47:0075[facility]CHE[facility] EPEVG0110-01-10 06:47:000.5[facility]CHE[facility] ICQNV1423-43-53 06:47:0011.9[facility]annCHE[facility] TDTFG6193-09-37 06:47:99390Mupmuefj HermannCHEM SBJVK5460-85-08 06:47:007.8[facility]annCHE[facility] KFUYF2259-91-22 06:47:003.9 [facility] ICHNI1613-52-93 06:47:0024[facility]annCHE[facility] PANEL 2017-09-15 06:47:008.7[facility]annCHE[facility] DGZAS8893-74-77 06:47:003.9[facility]annCHE[facility] DRKVN3027-37-02 06:47:52740Rgckerhz HermannCHEM YOFZC0833-05-17 06:47:000.72[facility]annCHE[facility] GEYZO5566-31-42 06:47:0016[facility]annCHE[facility] OZJUI7290-80-63 06:47:99218Frvpqlrv EjcahjkIRENEJIVAE2960-78-66 06:47:000.1 [facility] FihsvnxEDITSMSWFL7114-13-09 06:47:000.1[facility]annHEMATOLOGY 2017-09-15 06:47:000.9[facility] OjymhvuOJPEKVQMYK9807-22-29 06:47:004.4[facility] YkdlsiqAIETIDMFWC3847-76-88 06:47:0010.0[facility] TleszolBIQGOGEJSH2315-59-52 06:47:000.6[facility] OuydbljCRNJAEMLGP5183-47-64 06:47:000.5[facility] [place] XTVOPANOWJ0551-64-71 06:47:0028.4[facility] XnevkawUMGCQOAPXW4793-12-36 06:47:00 6.0[facility] FjckjosFDBQCZGJVX7795-13-58 06:47:0064.5[facility]annHEMATOLOGY 2017-09-15 06:47:00 Test Item Value Reference Range Interpretation Comments MCH (test code = MCH) 29.4 pg 27.0-31.0 [facility] DfwnqngBPEWBVDYTJ3491-46-48 06:47:0085.3[facility]annHEMATOLOGY 2017-09-15 06:47:0037.0[facility] HsnznogQHJFENNBWT6637-19-06 06:47:0012.8[facility] BxbxcpwOBBCSUSEMW6263-74-89 06:47:004.34[facility] EnyhbxxMYMSDEDZME4580-24-36 06:47:008.2[facility] VszbipmBCKYIUGYVB4449-12-20 06:47:72260Jtqygkcs [place] XJLTOIPXVV3294-98-04 06:47:0014.7[facility] TukwqruHJPUBRHSOT7599-41-94 06:47:00 34.5[facility] NnpygeiDOIVSFYRDZ0987-77-00 06:47:0015.5[facility]annSPECIAL LTBTPBVLL1229-89-69 06:47:008.4[facility]annCHEM FFKXL3131-56-55 06:47:0032.0 [facility] HermannCHEM EGSAQ1561-96-19 06:47:0093[facility] HermannBACTERIAL - AFEQNAYT8223-46-98 05:39:00Positive 1*ABN*(09/15/17 12:39 AM)[facility] BACTERIAL - TNQOPHFN5281-67-98 05:39:00Positive 1*ABN*(09/15/17 12:39 AM)[facility]
--- NOTE | 2021-02-08 16:03 | P.HP ---
Certification for Inpatient Patient admitted to: Observation With expected LOS: <2 Midnights Patient will require the following post-hospital care: None Practitioner: I am a practitioner with admitting privileges, knowledge of patient current condition, hospital course, and medical plan of care. Services: Services provided to patient in accordance with Admission requirements found in Title 42 Section 412.3 of the Code of Federal Regulations Patient History Date of Service: 01/22/21 Reason for admission: Chest pain rule out acute coronary syndrome History of Present Illness: Patient is a 60-year-old female came to hospital with chest discomfort. Pain was mainly in the sternal region and radiate to the back. Patient was not feeling well and was also having some dyspnea. In the emergency room patient's workup did not reveal any significant abnormalities. Initial EKG and troponins are negative. CT aortic dissection was unremarkable as well. Patient be admitted to the hospital for further evaluation. Allergies codeine Allergy (Unverified 02/11/17 20:37) Unknown levofloxacin [From Levaquin] Adverse Reaction (Verified 08/21/16 22:17) Itching/Hives/Rash PENICILLINS Allergy (Uncoded 03/27/15 16:28) Unknown Home Medications: Amlodipine [Norvasc*] 1 tab PO DAILY 08/22/16 Atorvastatin Calcium [Lipitor*] 20 mg PO BEDTIME #30 tab 08/22/16 Baclofen 1 tab PO TID 08/22/16 Clopidogrel Bisulfate [Plavix*] 75 mg PO DAILY #30 tablet 08/22/16 Folic Acid 1 mg PO DAILY #30 tablet 08/22/16 Hydrocodone/Acetaminophen [Hydrocodone-Acetamin 10-325 mg] 1 tab PO BID 08/22/16 Linagliptin/Metformin HCl [Jentadueto 2.5 mg-500 mg Tab] 1 tab PO BID 08/22/16 Losartan Potassium 1 tab PO DAILY 08/22/16 Lurasidone HCl [Latuda] 1 tab PO DAILY 08/22/16 Naproxen [Naprosyn] 1 tab PO BID 08/22/16 Pantoprazole [Protonix Tab*] 40 mg PO DAILYAC #30 tab 08/22/16 Sertraline [Zoloft*] 1 tab PO BID 08/22/16 hydroCHLOROthiazide [Hydrochlorothiazide] 1 tab PO DAILY 08/22/16 Empagliflozin [Jardiance] 1 tab PO DAILY 01/22/21 Insulin Glargine,Hum.rec.anlog [Tourenuo Solostar] 1 pe SQ DAILY 01/22/21 Levetiracetam [Keppra] 1 tab PO BID 01/22/21 Liraglutide [Victoza 2-Sunday] 1 pe SQ DAILY 01/22/21 Potassium Chloride 1 tab PO DAILY 01/22/21 Promethazine Tab [Phenergan*] 1 tab PO PRN 01/22/21 Smz./Tmp. [Bactrim Ds 800 MG/160 MG*] 1 tab PO BID 01/22/21 - Past Medical/Surgical History Has patient received pneumonia vaccine in the past: No Diabetic: Yes -: Diabetes mellitus type 2 -: Hypertension -: Chronic pain -: Tonsillectomy -: Hysterectomy -: appendectomy Psychosocial/ Personal History: She . She has 2 children. She does not work. - Family History Mother Medical History: Stroke - Social History Smoking Status: Never smoker Alcohol use: No CD- Drugs: No Caffeine use: Yes Review of Systems 10-point ROS is otherwise unremarkable Physical Examination - Vital Signs Temperature: 98.1 F Blood Pressure: 100/58 Pulse: 86 Respirations: 16 Pulse Ox (%): 94 - Physical Exam General: Alert, In no apparent distress, Oriented x3 HEENT: Atraumatic, PERRLA, Mucous membr. moist/pink, EOMI, Sclerae nonicteric Neck: Supple, 2+ carotid pulse no bruit, No LAD, Without JVD or thyroid abnormality Respiratory: Clear to auscultation bilaterally, Normal air movement Cardiovascular: Regular rate/rhythm, Normal S1 S2, No murmurs Gastrointestinal: Normal bowel sounds, Soft and benign, Non-distended, No tenderness Musculoskeletal: No clubbing, No swelling, No tenderness Integumentary: No rashes Neurological: Normal gait, Normal speech, Normal strength at 5/5 x4 extr, Normal tone, Sensation intact, Cranial nerves 3-12 intact, Normal affect Lymphatics: No axilla or inguinal lymphadenopathy Assessment & Plan - Problems (Diagnosis) (1) Chest pain, rule out acute myocardial infarction Status: Acute - Plan 1. Serial troponins and EKG 2. Appreciate Cardiology consultation 3. Echocardiogram and outpatient stress test 4. Anti-platelet therapy, anti coagulation, beta-lissa, statin, and O2 as needed 5. IV morphine for pain 6. Nitro p.r.n. Discharge Plan: Home Plan to discharge in: Greater than 2 days - Advance Directives Does patient have a Living Will: No Does patient have a Durable POA for Healthcare: No - Code Status/Comfort Care Code Status Assessed: Yes Code Status: Full Code Critical Care: No Time Spent Managing PTS Care (In Minutes): 45
--- NOTE | 2021-02-08 16:05 | P.DS ---
Discharge Date: 01/23/21 Disposition: ROUTINE DISCHARGE Discharge Condition: GOOD Reason for Admission: Chest pain rule out acute coronary syndrome - Problems (1) Chest pain, rule out acute myocardial infarction Status: Acute Brief History of Present Illness: Patient is a 60-year-old female came to hospital with chest discomfort. Pain was mainly in the sternal region and radiate to the back. Patient was not feeling well and was also having some dyspnea. In the emergency room patient's workup did not reveal any significant abnormalities. Initial EKG and troponins are negative. CT aortic dissection was unremarkable as well. Patient be admitted to the hospital for further evaluation. Hospital Course: Patient has done well during hospital stay. Patient's symptoms are improved. At this time, patient is stable for discharge home. Vital Signs/Physical Exam: Temp Pulse Resp BP Pulse Ox 98.1 F 86 16 100/58 L 94 02/08/21 16:02 02/08/21 16:02 02/08/21 16:02 02/08/21 16:02 02/08/21 16:02 General: Alert, In no apparent distress, Oriented x3 Laboratory Data at Discharge: WBC 9.40 K/uL (4.3-10.9) 01/23/21 05:05 Hgb 12.0 g/dL (12.0-15.0) 01/23/21 05:05 Hct 35.6 % (36.0-45.0) L 01/23/21 05:05 Plt Count 209 K/uL (152-406) 01/23/21 05:05 PT 12.3 SECONDS (9.5-12.5) 01/22/21 12:02 INR 1.07 01/22/21 12:02 Sodium 140 mmol/L (136-145) 01/23/21 05:05 Potassium 3.7 mmol/L (3.5-5.1) 01/23/21 05:05 BUN 10 mg/dL (7-18) 01/23/21 05:05 Creatinine 0.72 mg/dL (0.55-1.3) 01/23/21 05:05 Glucose 152 mg/dL (74-106) H 01/23/21 05:05 Magnesium 2.0 mg/dL (1.8-2.4) 01/22/21 12:02 Total Bilirubin 0.3 mg/dL (0.2-1.0) 01/22/21 12:02 AST 28 U/L (15-37) 01/22/21 12:02 ALT 23 U/L (12-78) 01/22/21 12:02 Alkaline Phosphatase 89 U/L (45-117) 01/22/21 12:02 Troponin I < 0.02 ng/mL (0.0-0.045) 01/23/21 05:05 Triglycerides Cancelled 01/23/21 06:00 Cholesterol Cancelled 01/23/21 06:00 HDL Cholesterol Cancelled 01/23/21 06:00 Cholesterol/HDL Ratio Cancelled 01/23/21 06:00 Lipase 98 U/L (73-393) 01/22/21 12:02 Home Medications: Amlodipine [Norvasc*] 1 tab PO DAILY 08/22/16 Atorvastatin Calcium [Lipitor*] 20 mg PO BEDTIME #30 tab 08/22/16 Baclofen 1 tab PO TID 08/22/16 Clopidogrel Bisulfate [Plavix*] 75 mg PO DAILY #30 tablet 08/22/16 Folic Acid 1 mg PO DAILY #30 tablet 08/22/16 Hydrocodone/Acetaminophen [Hydrocodone-Acetamin 10-325 mg] 1 tab PO BID 08/22/16 Linagliptin/Metformin HCl [Jentadueto 2.5 mg-500 mg Tab] 1 tab PO BID 08/22/16 Losartan Potassium 1 tab PO DAILY 08/22/16 Lurasidone HCl [Latuda] 1 tab PO DAILY 08/22/16 Naproxen [Naprosyn] 1 tab PO BID 08/22/16 Pantoprazole [Protonix Tab*] 40 mg PO DAILYAC #30 tab 08/22/16 Sertraline [Zoloft*] 1 tab PO BID 08/22/16 hydroCHLOROthiazide [Hydrochlorothiazide] 1 tab PO DAILY 08/22/16 Empagliflozin [Jardiance] 1 tab PO DAILY 01/22/21 Insulin Glargine,Hum.rec.anlog [Touney Solostar] 1 pe SQ DAILY 01/22/21 Levetiracetam [Keppra] 1 tab PO BID 01/22/21 Liraglutide [Victoza 2-Sunday] 1 pe SQ DAILY 01/22/21 Potassium Chloride 1 tab PO DAILY 01/22/21 Promethazine Tab [Phenergan*] 1 tab PO PRN 01/22/21 Smz./Tmp. [Bactrim Ds 800 MG/160 MG*] 1 tab PO BID 01/22/21 Physician Discharge Instructions: OK TO DC IV AND DC HOME FOLLOW-UP WITH PRIMARY CARE PROVIDER IN 1-2 WEEKS FOLLOW-UP WITH CARDIOLOGY IN 1-2 WEEKS RETURN TO THE ER IF symptoms worsens CALL or TEXT DR. KENT AT [phone] IF ANY QUESTIONS REGARDING HOSPITAL STAY. PLEASE CALL THE FLOOR AT [phone] IF ANY MEDICATION OR NURSING QUESTIONS. Diet: AHA Activity: Fall precautions Followup: NONE,NONE [Primary Care Provider] - Time spent managing pt's care (in minutes): 35
== END 2021-01-23 14:10 | disposition home or self-care (01) ==
LOC: ER 11:16 → 2ND 16:23
PROVIDERS: ADMIT Hospitalist; ATTEND Hospitalist
DX: R07.9 Chest pain, unspecified (principal); G89.29 Other chronic pain; E11.9 Type 2 diabetes mellitus without complications; I10 Essential (primary) hypertension; Z20.822 Contact with and (suspected) exposure to COVID-19
CPT/HCPCS: 93005 ×2; 93306; 87040 ×2; 87088; 85025 ×2; 87086; 80048 ×2; 36415; 83735; 87205 ×2; 85610; 80061; 82947 ×4; 80076; 83605 ×2; 87077; 87186; 81003; 84484 ×3; 83690; 83880; 71275; 74175; 71045; 90471; 96374; 99284; U0003; Q9967; J2543; J1650; J2270 ×5; J7050; J7030 ×2; G0378 ×3

== ENCOUNTER 2022-09-02 17:35 | Emergency (ER) | payer OTHER ==
[2022-09-02] MEDS ORDERED: HYDROCODONE/APAP 10/325 TAB ONE (18:13)
--- OUTSIDE RECORDS SUMMARY | 2022-09-02 18:36 | XMS REPORT | Continuity of Care Document ---
:1960 Author Organization [facility] t Address [address] [place] [id number] Care Team Providers Name Role Phone Godwin Ritter MD Primary Care Physician [place] Attending Clinician Unavailable Godwin Ritter MD Attending Clinician Doctor Unassigned, [place] Attending Clinician Unavailable Bijan Forrester MD Attending Clinician GODWIN RITTER Attending Clinician Unavailable Lab, Ang - Db Attending Clinician Unavailable Petr Mathur MD Attending Clinician PETR MATHUR Attending Clinician Unavailable PETR MATHUR Attending Clinician Unavailable Kole Mcmillan MD Attending Clinician KOLE MCMILLAN Attending Clinician Unavailable ZEYNEP Attending Clinician Unavailable Klaudia Hamm RN Attending Clinician Unavailable MARTHA GARCIAS Attending Clinician Unavailable Laurie Granado Attending Clinician LAURIE TOVAR Attending Clinician Unavailable Tank Godoy Attending Clinician Unavailable Mariah Cool RN Attending Clinician Unavailable GUIDO VALERIO Attending Clinician Unavailable KAVON LYNN Attending Clinician Unavailable Tucker Verma MD Attending Clinician Lab, Adc Fam Pob I Attending Clinician Unavailable TUCKER VERMA Attending Clinician Unavailable Nurse, [facility] Attending Clinician Unavailable Provider, [facility] Attending Clinician Unavailable Cassia Whaley Attending Clinician Josiah Martinez MD Attending Clinician JOSIAH MARTINEZ Attending Clinician Unavailable JOSIAH MARTINEZ Attending Clinician Unavailable Francisco Javier Rosales MD Attending Clinician Pcp-Lab Attending Clinician Unavailable FRANCISCO JAVIER ROSALES Attending Clinician Unavailable NINFA MCFARLAND Attending Clinician Unavailable Ninfa Mcfarland MD Attending Clinician HARINDER KIM Attending Clinician Unavailable Sharona Duffy MD Attending Clinician [phone] Mary Borja Attending Clinician ZEYNEP Admitting Clinician Unavailable GODWIN RITTER Admitting Clinician Unavailable Mary Borja Admitting Clinician Payers Payer Name Policy Type Policy Number Effective Date Expiration Date S ource Problems Condition Condition Condition Status Onset Resolution Last Treating Co mments Source Name Details Category Date Date Treatment Clinician Date Anxiety Anxiety Disease Active 2020-03 Univers 2-20 ity of 00:00: [address] Primary Primary Disease Active 2020-03 Univers hypertensi hypertensi 0-26 it y of on on 00:00: [address] Chronic Chronic Disease Active 2017-03 Univers pain pain 0-04 ity of syndrome syndrome 00:00: [address] 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 [place] SEPSIS SEPSIS Diagnosis Active 2017-09-22 Me moria Active 09-14 21:42:00 l 09/14/2017 21:08: Aj leary [facility] 00 [place] Diabetes Diabetes Disease Active Unive rs 3-26 ity of 00:00: [address] SEPSIS, SEPSIS, Diagnosis Active 2017-09-22 Memoria UNSPECIFIE UNSPECIFIE 21:42:00 l D ORGANISM D ORGANISM He rmann Active [facility] Allergies, Adverse Reactions, Alerts Allergy Allergy Status Severity Reaction(s) Onset Inactive Treating Comm ents Source Name Type Date Date Clinician CODEINE DRUG Active Unknown-Cmnt Uni vers INGREDI 8- ity of 00:00: [place] 00 Medical Branch Codeine Propensi Active Unknown - Univ ers ty to See comments 11-11 ity of adverse 00:00: [place] reaction 00 Medical s Branch LEVOFLOX DRUG Active Other-Cmnt 2016-03 Univ ers ACIN INGREDI 0-06 ity of 00:00: [place] 00 Medical Branch Levoflox Propensi Active Other - See 2016-03 Swelling Univers acin ty to comments 0-06 in hands ity of adverse 00:00: [place] reaction 00 Medical s Branch Penicill Propensi Active Rash 2014-03 Univer s ins ty to 0-02 ity of adverse 00:00: [place] reaction 00 Medical s to Branch drug PENICILL Drug Active Med Rash 2014-03 Univers INS Class 0-02 ity of 00:00: [place] 00 Medical Branch codeine codeine Active Memoria patti Perez Levaquin Levaquin Active Yaquelin Perez Social History Social Habit Start Date Stop Date Quantity Comments Source History of Current smoker University of tobacco use [facility] Exposure to 2022-07-19 2022-07-29 Not sure University SARS-CoV-2 00:00:00 10:13:00 [facility] (event) Branch Alcohol intake 2022-07-29 2022-07-29 Current University of 00:00:00 00:00:00 non-drinker of [facility] alcohol (finding) Branch Tobacco use and 2021-11-14 2021-11-14 User of smokeless Un iversity of exposure 00:00:00 00:00:00 tobacco [facility] Tobacco Comment 2021-11-14 2021-11-14 Pt uses Universit y of 00:00:00 00:00:00 e-cigarette [facility] Sex [birth year] At [birth year] Universit y of 00:00:00 00:00:00 [facility] Smoking Status Start Date Stop Date Source Ex-smoker 2021-11-14 00:00:00 2021-11-14 00:00:00 [facility] Branch Social History 2017-09-15 08:15:53 [facility] Medications Ordered Filled Start Stop Current Ordering Indication Dosage Frequency Signature Comments Components Source Medication Medication Date Date Medication? Clinician (SIG) Name Name CLOPIDOGREL Yes [id number] TAKE 1 Univers 75 mg 6-12 TABLET BY ity of tablet 00:00: MOUTH [place] 00 EVERY DAY Medical Branch IBUPROFEN Yes [id number] TAKE 1 U nivers 800 mg 6-12 TABLET BY ity of tablet 00:00: MOUTH [place] 00 EVERY 6 Medical HOURS WITH Branch FOOD NEEDED *DO NOT TAKE ASPRIN* METFORMIN Yes [id number] TAKE 2 Un reinier ER 500 mg 6-12 TABLETS BY ity of 24 hr 00:00: MOUTH 2 [place] tablet 00 TIMES Medical DAILY WITH Branch FOOD LEVETIRACET Yes [id number] TAKE 1 Univers AM 1,000 mg 6-12 TABLET BY ity of tablet 00:00: MOUTH 2 [place] 00 TIMES Medical DAILY Branch SULFAMETHOX Yes [id number] TAKE 1 Univers AZOLE-TRIME 6-12 TABLET BY ity of THOPRIM 00:00: MOUTH 2 [place] 800-160 mg 00 TIMES Medical per tablet DAILY WITH Bra nch A GLASS OF WATER BACLOFEN 20 Yes [id number] TAKE 1 Univers mg tablet 6-05 TABLET BY ity o f 00:00: MOUTH 3 [place] 00 TIMES Medical DAILY *MAY Branch IMPAIR ALERTNESS* * METHOCARBAM Yes [id number] TAKE 1 Univers OL 500 mg 6-05 TABLET BY ity o f tablet 00:00: MOUTH [place] 00 EVERY 6 Medical HOURS Branch NEEDED FOR PAIN (SCALE 4-6). *MAY IMPAIR ALERTNESS* * HYDROcodone Yes [id number] TAKE 1 Univ ers -acetaminop 6-05 TABLET BY ity of hen 10-325 00:00: MOUTH [place] mg tablet 00 EVERY 4 Medical HOURS Branch NEEDED FOR PAIN *MAY IMPAIR ALERTNESS* * Indication s: chronic pain BACLOFEN 20 2022- Yes [id number] TAKE 1 Univers mg tablet 6-05 TABLET BY ity o f 00:00: MOUTH 3 [place] 00 TIMES Medical DAILY *MAY Branch IMPAIR ALERTNESS* * METHOCARBAM Yes [id number] TAKE 1 Univers OL 500 mg 6-05 TABLET BY ity o f tablet 00:00: MOUTH [place] 00 EVERY 6 Medical HOURS Branch NEEDED FOR PAIN (SCALE 4-6). *MAY IMPAIR ALERTNESS* * HYDROcodone 2022-0 Yes [id number] TAKE 1 Univ ers -acetaminop 6-05 TABLET BY ity of hen 10-325 00:00: MOUTH [place] mg tablet 00 EVERY 4 Medical HOURS Branch NEEDED FOR PAIN *MAY IMPAIR ALERTNESS* * Indication s: chronic pain BACLOFEN 20 2022-0 Yes [id number] TAKE 1 Univers mg tablet 6-05 TABLET BY ity o f 00:00: MOUTH 3 [place] 00 TIMES Medical DAILY *MAY Branch IMPAIR ALERTNESS* * METHOCARBAM 0 Yes [id number] TAKE 1 Univers OL 500 mg 6-05 TABLET BY ity o f tablet 00:00: MOUTH [place] 00 EVERY 6 Medical HOURS Branch NEEDED FOR PAIN (SCALE 4-6). *MAY IMPAIR ALERTNESS* * HYDROcodone Yes [id number] TAKE 1 Univ ers -acetaminop 6-05 TABLET BY ity of hen 10-325 00:00: MOUTH [place] mg tablet 00 EVERY 4 Medical HOURS Branch NEEDED FOR PAIN *MAY IMPAIR ALERTNESS* * Indication s: chronic pain HYDROXYZINE Yes [id number] TAKE 1 Univers 50 mg 6-01 TABLET BY ity of tablet 00:00: MOUTH 3 [place] 00 TIMES Medical DAILY Branch NEEDED FOR ITCHING OR ANXIETY. *MAY IMPAIR ALERTNESS* * HYDROXYZINE Yes [id number] TAKE 1 Univers 50 mg 6-01 TABLET BY ity of tablet 00:00: MOUTH 3 [place] 00 TIMES Medical DAILY Branch NEEDED FOR ITCHING OR ANXIETY. *MAY IMPAIR ALERTNESS* * HYDROCHLORO 2022- Yes [id number] 25mg TAKE 1 Univers THIAZIDE 25 6-01 TABLET BY ity of mg tablet 00:00: MOUTH IN [facility] 00 THE Medical MORNING Branch FAMOTIDINE 0 Yes [id number] 40mg TAKE 1 Univers 40 mg 6-01 TABLET BY ity of tablet 00:00: MOUTH IN [place] THE Medical MORNING Branch METOPROLOL Yes [id number] TAKE 1 U nivers SUCCINATE 6-01 TABLET BY ity o f XL 50 mg 24 00:00: MOUTH ONCE [place] hr tablet 00 DAILY WITH Medi radha FOOD Branch HYDROXYZINE Yes [id number] TAKE 1 Univers 50 mg 6-01 TABLET BY ity of tablet 00:00: MOUTH 3 [place] 00 TIMES Medical DAILY Branch NEEDED FOR ITCHING OR ANXIETY. *MAY IMPAIR ALERTNESS* * HYDROCHLORO 0 Yes [id number] 25mg TAKE 1 Univers THIAZIDE 25 6-01 TABLET BY ity of mg tablet 00:00: [place]TH [place] 00 THE Medical MORNING Branch JARDIANCE 2022-0 Yes [id number] 25mg TAKE 1 Un reinier 25 mg Tab 6-01 TABLET BY ity o f 00:00: MOUTH IN [place] 00 THE Medical MORNING Branch FAMOTIDINE 2022-0 Yes [id number] 40mg TAKE 1 Univers 40 mg 6-01 TABLET BY ity of tablet 00:00: MOUTH IN [place] 00 THE Medical MORNING Branch ATORVASTATI 2022-0 Yes [id number] TAKE 1 Univers N 20 mg 6-01 TABLET BY ity of tablet 00:00: MOUTH AT [place] 00 BEDTIME Medical Branch AMLODIPINE 2022-0 Yes [id number] 10mg TAKE 1 U nivers 10 mg 6-01 TABLET BY ity of tablet 00:00: MOUTH [place] 00 EVERY Medical MORNING Branch METOPROLOL 2022-0 Yes [id number] TAKE 1 U nivers SUCCINATE 6-01 TABLET BY ity o f XL 50 mg 24 00:00: MOUTH ONCE [place] hr tablet 00 DAILY WITH [facility] Branch HYDROXYZINE Yes [id number] TAKE 1 Univers 50 mg 6-01 TABLET BY ity of tablet 00:00: MOUTH 3 [place] 00 TIMES Medical DAILY Branch NEEDED FOR ITCHING OR ANXIETY. *MAY IMPAIR ALERTNESS* * HYDROCHLORO 0 Yes [id number] 25mg TAKE 1 Univers THIAZIDE 25 6-01 TABLET BY ity of mg tablet 00:00: MOUTH IN [facility] 00 THE Medical MORNING Branch JARDIANCE 2022-0 Yes [id number] 25mg TAKE 1 Un reinier 25 mg Tab 6-01 TABLET BY ity o f 00:00: MOUTH IN [place] 00 THE Medical MORNING Branch FAMOTIDINE 2022-0 Yes [id number] 40mg TAKE 1 Univers 40 mg 6-01 TABLET BY ity of tablet 00:00: MOUTH IN [place] 00 THE Medical MORNING Branch ATORVASTATI 2022-0 Yes [id number] TAKE 1 Univers N 20 mg 6-01 TABLET BY ity of tablet 00:00: MOUTH AT [place] 00 BEDTIME Medical Branch AMLODIPINE 2022-0 Yes [id number] 10mg TAKE 1 U nivers 10 mg 6-01 TABLET BY ity of tablet 00:00: MOUTH [place] EVERY Medical MORNING Branch METOPROLOL 2022-0 Yes [id number] TAKE 1 U nivers SUCCINATE 6-01 TABLET BY ity o f XL 50 mg 24 00:00: MOUTH ONCE [place] hr tablet 00 DAILY WITH [facility] HYDROXYZINE 2022-0 Yes [id number] TAKE 1 Univers 50 mg 6-01 TABLET BY ity of tablet 00:00: MOUTH 3 [place] 00 TIMES Medical DAILY Branch NEEDED FOR ITCHING OR ANXIETY. *MAY IMPAIR ALERTNESS* * HYDROCHLORO 2022-0 Yes [id number] 25mg TAKE 1 Univers THIAZIDE 25 6-01 TABLET BY ity of mg tablet 00:00: MOUTH IN [place] [address] THE Medical MORNING Branch JARDIANCE 2022-0 Yes [id number] 25mg TAKE 1 Un reinier 25 mg Tab 6-01 TABLET BY ity o f 00:00: MOUTH IN [place] [address] THE Medical MORNING Branch FAMOTIDINE 2022-0 Yes [id number] 40mg TAKE 1 Univers 40 mg 6-01 TABLET BY ity of tablet 00:00: MOUTH IN [place] [address] THE Medical MORNING Branch ATORVASTATI 2022-0 Yes [id number] TAKE 1 Univers N 20 mg 6-01 TABLET BY ity of tablet 00:00: MOUTH AT [place] [address] BEDTIME Medical Branch AMLODIPINE 2022-0 Yes [id number] 10mg TAKE 1 U nivers 10 mg 6-01 TABLET BY ity of tablet 00:00: MOUTH [place] EVERY Medical MORNING Branch METOPROLOL 2022-0 Yes [id number] TAKE 1 U nivers SUCCINATE 6-01 TABLET BY ity o f XL 50 mg 24 00:00: MOUTH ONCE [place] hr tablet 00 DAILY WITH [facility] HYDROXYZINE 2022-0 Yes [id number] TAKE 1 Univers 50 mg 6-01 TABLET BY ity of tablet 00:00: MOUTH 3 [place] 00 TIMES Medical DAILY Branch NEEDED FOR ITCHING OR ANXIETY. *MAY IMPAIR ALERTNESS* * HYDROCHLORO 2022-0 Yes [id number] 25mg TAKE 1 Univers THIAZIDE 25 6-01 TABLET BY ity of mg tablet 00:00: MOUTH IN [facility] 00 THE Medical MORNING Branch JARDIANCE 2022-0 Yes [id number] 25mg TAKE 1 Un reinier 25 mg Tab 6-01 TABLET BY ity o f 00:00: MOUTH IN [place] THE Medical MORNING Branch FAMOTIDINE 2022-0 Yes [id number] 40mg TAKE 1 Univers 40 mg 6-01 TABLET BY ity of tablet 00:00: MOUTH IN [place] 00 THE Medical MORNING Branch ATORVASTATI 2022-0 Yes [id number] TAKE 1 Univers N 20 mg 6-01 TABLET BY ity of tablet 00:00: MOUTH AT [place] 00 BEDTIME Medical Branch AMLODIPINE 2022-0 Yes [id number] 10mg TAKE 1 U nivers 10 mg 6-01 TABLET BY ity of tablet 00:00: MOUTH [place] EVERY Medical MORNING Branch METOPROLOL 2022-0 Yes [id number] TAKE 1 U nivers SUCCINATE 6-01 TABLET BY ity o f XL 50 mg 24 00:00: MOUTH ONCE [place] hr tablet 00 DAILY WITH [facility] HYDROXYZINE 2022-0 Yes [id number] TAKE 1 Univers 50 mg 6-01 TABLET BY ity of tablet 00:00: MOUTH 3 [place] [address] TIMES Medical DAILY Branch NEEDED FOR ITCHING OR ANXIETY. *MAY IMPAIR ALERTNESS* * HYDROCHLORO 2022-0 Yes [id number] 25mg TAKE 1 Univers THIAZIDE 25 6-01 TABLET BY ity of mg tablet 00:00: MOUTH IN [facility] 00 THE Medical MORNING Branch JARDIANCE 2022-0 Yes [id number] 25mg TAKE 1 Un reinier 25 mg Tab 6-01 TABLET BY ity o f 00:00: MOUTH IN [place] THE Medical MORNING Branch FAMOTIDINE 2022-0 Yes [id number] 40mg TAKE 1 Univers 40 mg 6-01 TABLET BY ity of tablet 00:00: MOUTH IN [place] 00 THE Medical MORNING Branch ATORVASTATI 2022-0 Yes [id number] TAKE 1 Univers N 20 mg 6-01 TABLET BY ity of tablet 00:00: MOUTH AT [place] 00 BEDTIME Medical Branch AMLODIPINE 2022-0 Yes [id number] 10mg TAKE 1 U nivers 10 mg 6-01 TABLET BY ity of tablet 00:00: MOUTH [place] EVERY Medical MORNING Branch METOPROLOL 2022-0 Yes [id number] TAKE 1 U nivers SUCCINATE 6-01 TABLET BY ity o f XL 50 mg 24 00:00: MOUTH ONCE [place] hr tablet 00 DAILY WITH Medi radha FOOD Branch MUPIROCIN 2 2022-0 Yes [id number] APPLY Univers % ointment 5-26 TOPICALLY ity of 00:00: TO BOTH [place] [address] NOSTRILS Medical EVERY 12 Branch HOURS USING SEPARATE COTTON SWABS FOR 5 DAYS IBUPROFEN 2022-0 Yes [id number] TAKE 1 U nivers 800 mg 5-26 TABLET BY ity of tablet 00:00: MOUTH [place] [address] EVERY 6 Medical HOURS WITH Branch FOOD NEEDED *DO NOT TAKE ASPRIN* MUPIROCIN 2 2022- Yes [id number] APPLY Univers % ointment 5-26 TOPICALLY ity of 00:00: TO BOTH [place] [address] NOSTRILS Medical EVERY 12 Branch HOURS USING SEPARATE COTTON SWABS FOR 5 DAYS IBUPROFEN 2022-0 Yes [id number] TAKE 1 U nivers 800 mg 5-26 TABLET BY ity of tablet 00:00: MOUTH [place] [address] EVERY 6 Medical HOURS WITH Branch FOOD NEEDED *DO NOT TAKE ASPRIN* MUPIROCIN 2 2022- Yes [id number] APPLY Univers % ointment 5-26 TOPICALLY ity of 00:00: TO BOTH [place] [address] NOSTRILS Medical EVERY 12 Branch HOURS USING SEPARATE COTTON SWABS FOR 5 DAYS IBUPROFEN 2022-0 Yes [id number] TAKE 1 U nivers 800 mg 5-26 TABLET BY ity of tablet 00:00: MOUTH [place] [address] EVERY 6 Medical HOURS WITH Branch FOOD NEEDED *DO NOT TAKE ASPRIN* MUPIROCIN 2 2022- Yes [id number] APPLY Univers % ointment 5-26 TOPICALLY ity of 00:00: TO BOTH [place] [address] NOSTRILS Medical EVERY 12 Branch HOURS USING SEPARATE COTTON SWABS FOR 5 DAYS IBUPROFEN 2022-0 Yes [id number] TAKE 1 U nivers 800 mg 5-26 TABLET BY ity of tablet 00:00: MOUTH [place] [address] EVERY 6 Medical HOURS WITH Branch FOOD NEEDED *DO NOT TAKE ASPRIN* MUPIROCIN 2 2022- Yes [id number] APPLY Univers % ointment 5-26 TOPICALLY ity of 00:00: TO BOTH [place] [address] NOSTRILS Medical EVERY 12 Branch HOURS USING SEPARATE COTTON SWABS FOR 5 DAYS IBUPROFEN 2022-0 Yes [id number] TAKE 1 U nivers 800 mg 5-26 TABLET BY ity of tablet 00:00: MOUTH [place] [address] EVERY 6 Medical HOURS WITH Branch FOOD NEEDED *DO NOT TAKE ASPRIN* MUPIROCIN 2 2022- Yes [id number] APPLY Univers % ointment 5-26 TOPICALLY ity of 00:00: TO BOTH [place] [address] NOSTRILS Medical EVERY 12 Branch HOURS USING SEPARATE COTTON SWABS FOR 5 DAYS IBUPROFEN 2022- Yes [id number] TAKE 1 U nivers 800 mg 5-26 TABLET BY ity of tablet 00:00: MOUTH [place] 00 EVERY 6 Medical HOURS WITH Branch FOOD NEEDED *DO NOT TAKE ASPRIN* MUPIROCIN 2 Yes [id number] APPLY Univers % ointment 5-26 TOPICALLY ity of 00:00: TO BOTH [place] [address] NOSTRILS Medical EVERY 12 Branch HOURS USING SEPARATE COTTON SWABS FOR 5 DAYS IBUPROFEN Yes [id number] TAKE 1 U nivers 800 mg 5-26 TABLET BY ity of tablet 00:00: MOUTH [place] 00 EVERY 6 Medical HOURS WITH Branch FOOD NEEDED *DO NOT TAKE ASPRIN* MUPIROCIN 2 Yes [id number] APPLY Univers % ointment 5-26 TOPICALLY ity of 00:00: TO BOTH [place] [address] NOSTRILS Medical EVERY 12 Branch HOURS USING SEPARATE COTTON SWABS FOR 5 DAYS IBUPROFEN Yes [id number] TAKE 1 U nivers 800 mg 5-26 TABLET BY ity of tablet 00:00: MOUTH [place] 00 EVERY 6 Medical HOURS WITH Branch FOOD NEEDED *DO NOT TAKE ASPRIN* MUPIROCIN 2 Yes [id number] APPLY Univers % ointment 5-26 TOPICALLY ity of 00:00: TO BOTH [place] [address] NOSTRILS Medical EVERY 12 Branch HOURS USING SEPARATE COTTON SWABS FOR 5 DAYS IBUPROFEN 2022- No [id number] TAKE 1 Univers 800 mg 5-26 06-12 TABLET BY ity of tablet 00:00: 00:00 MOUTH [place] 00 :00 EVERY 6 Medical HOURS WITH Branch FOOD NEEDED *DO NOT TAKE ASPRIN* SILVIANO Yes [id number] INJECT 72 Un reinier SOLOSTAR 5-24 UNITS ity of U-300 00:00: UNDER THE [place] INSULIN 300 00 SKIN ONCE Med ical unit/mL DAILY IN Branch (1.5 mL) THE InPn EVENING (ADJUSTING DOSE BY 2 UNITS DAILY UNTIL FASTING BLOOD SUGAR LESS THAN 200) SILVIANO 2023-0 Yes [id number] INJECT 72 Un reinier SOLOSTAR 5-24 UNITS ity of U-300 00:00: UNDER THE [place] INSULIN 300 00 SKIN ONCE Med ical unit/mL DAILY IN Branch (1.5 mL) THE InPn EVENING (ADJUSTING DOSE BY 2 UNITS DAILY UNTIL FASTING BLOOD SUGAR LESS THAN 200) TOUJEO 2022-0 Yes [id number] INJECT 72 Un reinier SOLOSTAR 5-24 UNITS ity of U-300 00:00: UNDER THE [place] INSULIN 300 00 SKIN ONCE Med ical unit/mL DAILY IN Branch (1.5 mL) THE InPn EVENING (ADJUSTING DOSE BY 2 UNITS DAILY UNTIL FASTING BLOOD SUGAR LESS THAN 200) TOUJEO 2022-0 Yes [id number] INJECT 72 Un reinier SOLOSTAR 5-24 UNITS ity of U-300 00:00: UNDER THE [place] INSULIN 300 00 SKIN ONCE Med ical unit/mL DAILY IN Branch (1.5 mL) THE InPn EVENING (ADJUSTING DOSE BY 2 UNITS DAILY UNTIL FASTING BLOOD SUGAR LESS THAN 200) TOUJEO 2022-0 Yes [id number] INJECT 72 Un reinier SOLOSTAR 5-24 UNITS ity of U-300 00:00: UNDER THE [place] INSULIN 300 00 SKIN ONCE Med ical unit/mL DAILY IN Branch (1.5 mL) THE InPn EVENING (ADJUSTING DOSE BY 2 UNITS DAILY UNTIL FASTING BLOOD SUGAR LESS THAN 200) TOUJEO 2022-0 Yes [id number] INJECT 72 Un reinier SOLOSTAR 5-24 UNITS ity of U-300 00:00: UNDER THE [place] INSULIN 300 00 SKIN ONCE Med ical unit/mL DAILY IN Branch (1.5 mL) THE InPn EVENING (ADJUSTING DOSE BY 2 UNITS DAILY UNTIL FASTING BLOOD SUGAR LESS THAN 200) TOUJEO 2022-0 Yes [id number] INJECT 72 Un reinier SOLOSTAR 5-24 UNITS ity of U-300 00:00: UNDER THE [place] INSULIN 300 00 SKIN ONCE Med ical unit/mL DAILY IN Branch (1.5 mL) THE InPn EVENING (ADJUSTING DOSE BY 2 UNITS DAILY UNTIL FASTING BLOOD SUGAR LESS THAN 200) TOUJEO 2022-0 Yes [id number] INJECT 72 Un reinier SOLOSTAR 5-24 UNITS ity of U-300 00:00: UNDER THE [place] INSULIN 300 00 SKIN ONCE Med ical unit/mL DAILY IN Branch (1.5 mL) THE InPn EVENING (ADJUSTING DOSE BY 2 UNITS DAILY UNTIL FASTING BLOOD SUGAR LESS THAN 200) TOUJEO 3-0 Yes [id number] INJECT 72 Un reinier SOLOSTAR 5-24 UNITS ity of U-300 00:00: UNDER THE [place] INSULIN 300 00 SKIN ONCE Med ical unit/mL DAILY IN Branch (1.5 mL) THE InPn EVENING (ADJUSTING DOSE BY 2 UNITS DAILY UNTIL FASTING BLOOD SUGAR LESS THAN 200) TOUJEO 202-0 Yes [id number] INJECT 72 Un reinier SOLOSTAR 5-24 UNITS ity of U-300 00:00: UNDER THE [place] INSULIN 300 00 SKIN ONCE Med ical unit/mL DAILY IN Branch (1.5 mL) THE InPn EVENING (ADJUSTING DOSE BY 2 UNITS DAILY UNTIL FASTING BLOOD SUGAR LESS THAN 200) Insulin 2022-0 Yes [id number] USE Uni vers [place], 5 DIRECTED ity of Disposable, 00:00: [place] (SURE 00 Medical COMFORT PEN Branch NEEDLE) 32 gauge x 5/32" Ndle Insulin 2023-0 Yes [id number] USE Uni vers [place], 08-12 DIRECTED ity of Disposable, 00:00: [place] (SURE 00 Medical COMFORT PEN Branch NEEDLE) 32 gauge x 5/32" Ndle Insulin 2023-0 Yes [id number] USE Uni vers [place], - DIRECTED ity of Disposable, 00:00: [place] (SURE 00 Medical COMFORT PEN Branch NEEDLE) 32 gauge x 5/32" Ndle Insulin 2023-0 Yes [id number] USE Uni vers [place], 5- DIRECTED ity of Disposable, 00:00: [place] (SURE 00 Medical COMFORT PEN Branch NEEDLE) 32 gauge x 5/32" Ndle Insulin 2023-0 Yes [id number] USE Uni vers [place], 5- DIRECTED ity of Disposable, 00:00: [place] (SURE 00 Medical COMFORT PEN Branch NEEDLE) 32 gauge x 5/32" Ndle Insulin 2023-0 Yes [id number] USE Uni vers [place], 5- DIRECTED ity of Disposable, 00:00: [place] (SURE 00 Medical COMFORT PEN Branch NEEDLE) 32 gauge x 5/32" Ndle Insulin 2023-0 Yes [id number] USE Uni vers [place], 5- DIRECTED ity of Disposable, 00:00: [place] (SURE 00 Medical COMFORT PEN Branch NEEDLE) 32 gauge x 5/32" Ndle Insulin 3-0 Yes [id number] USE Uni vers [place], 08-12 DIRECTED ity of Disposable, 00:00: [place] (SURE 00 Medical COMFORT PEN Branch NEEDLE) 32 gauge x 5/32" Ndle Insulin 2023-0 Yes [id number] USE Uni vers [place], 08-12 DIRECTED ity of Disposable, 00:00: [place] (SURE Medical COMFORT PEN Branch NEEDLE) 32 gauge x 5/32" Ndle Insulin 3-0 Yes [id number] USE Uni vers [place], 08-12 DIRECTED ity of Disposable, 00:00: [place] (SURE Medical COMFORT PEN Branch NEEDLE) 32 gauge x 5/32" Ndle Insulin 3-0 Yes [id number] USE Uni vers [place], 08-12 DIRECTED ity of Disposable, 00:00: [place] (SURE 00 Medical COMFORT PEN Branch NEEDLE) 32 gauge x 5/32" Ndle POTASSIUM 2023-0 Yes [id number] TAKE 1 Un reinier CHLORIDE 10 5-11 TABLET BY ity of mEq CR 00:00: MOUTH ONCE [place] tablet 00 DAILY WITH Medical A GLASS OF Branch WATER POTASSIUM 2023-0 Yes [id number] TAKE 1 Un erinier CHLORIDE 10 5-11 TABLET BY ity of mEq CR 00:00: MOUTH ONCE [place] tablet 00 DAILY WITH Medical A GLASS OF Branch WATER POTASSIUM 2023-0 Yes [id number] TAKE 1 Un reinier CHLORIDE 10 5-11 TABLET BY ity of mEq CR 00:00: MOUTH ONCE [place] tablet 00 DAILY WITH Medical A GLASS OF Branch WATER POTASSIUM 2023-0 Yes [id number] TAKE 1 Un reinier CHLORIDE 10 5-11 TABLET BY ity of mEq CR 00:00: MOUTH ONCE [place] tablet 00 DAILY WITH Medical A GLASS OF Branch WATER POTASSIUM 2023-0 Yes [id number] TAKE 1 Un reinier CHLORIDE 10 5-11 TABLET BY ity of mEq CR 00:00: MOUTH ONCE [place] tablet 00 DAILY WITH Medical A GLASS OF Branch WATER POTASSIUM 2023-0 Yes [id number] TAKE 1 Un reinier CHLORIDE 10 5-11 TABLET BY ity of mEq CR 00:00: MOUTH ONCE [place] tablet 00 DAILY WITH Medical A GLASS OF Branch WATER POTASSIUM 2023-0 Yes [id number] TAKE 1 Un reinier CHLORIDE 10 5-11 TABLET BY ity of mEq CR 00:00: MOUTH ONCE [place] tablet 00 DAILY WITH Medical A GLASS OF Branch WATER POTASSIUM 2022-0 Yes [id number] TAKE 1 Un reinier CHLORIDE 10 5-11 TABLET BY ity of mEq CR 00:00: MOUTH ONCE [place] tablet 00 DAILY WITH Medical A GLASS OF Branch WATER POTASSIUM 2022-0 Yes [id number] TAKE 1 Un reinier CHLORIDE 10 5-11 TABLET BY ity of mEq CR 00:00: MOUTH ONCE [place] tablet 00 DAILY WITH Medical A GLASS OF Branch WATER POTASSIUM 2022-0 Yes [id number] TAKE 1 Un reinier CHLORIDE 10 5-11 TABLET BY ity of mEq CR 00:00: MOUTH ONCE [place] tablet 00 DAILY WITH Medical A GLASS OF Branch WATER POTASSIUM 2022-0 Yes [id number] TAKE 1 Un reinier CHLORIDE 10 5-11 TABLET BY ity of mEq CR 00:00: MOUTH ONCE [place] tablet 00 DAILY WITH Medical A GLASS OF Branch WATER POTASSIUM 2022-0 Yes [id number] TAKE 1 Un reinier CHLORIDE 10 5-11 TABLET BY ity of mEq CR 00:00: MOUTH ONCE [place] tablet 00 DAILY WITH Medical A GLASS OF Branch WATER POTASSIUM 2022-0 Yes [id number] TAKE 1 Un reinier CHLORIDE 10 5-11 TABLET BY ity of mEq CR 00:00: MOUTH ONCE [place] tablet 00 DAILY WITH Medical A GLASS OF Branch WATER POTASSIUM 2022-0 Yes [id number] TAKE 1 Un reinier CHLORIDE 10 5-11 TABLET BY ity of mEq CR 00:00: MOUTH ONCE [place] tablet 00 DAILY WITH Medical A GLASS OF Branch WATER POTASSIUM 2022-0 Yes [id number] TAKE 1 [facility] CHLORIDE 10 5-11 TABLET BY ity of mEq CR 00:00: MOUTH ONCE [place] tablet 00 DAILY WITH Medical A GLASS OF Branch WATER SULFAMETHOX 3-0 Yes [id number] TAKE 1 [facility] AZOLE-TRIME 5-10 TABLET BY ity of THOPRIM 00:00: MOUTH 2 [place] 800-160 mg 00 TIMES Medical per tablet DAILY WITH Bra nch A GLASS OF WATER LEVETIRACET 2022-0 Yes [id number] TAKE 1 [facility] AM 1,000 mg 5-10 TABLET BY ity of tablet 00:00: MOUTH 2 [place] 00 TIMES Medical DAILY Branch SULFAMETHOX 3-0 Yes [id number] TAKE 1 [facility] AZOLE-TRIME 5-10 TABLET BY ity of THOPRIM 00:00: MOUTH 2 [place] 800-160 mg 00 TIMES Medical per tablet DAILY WITH Bra nch A GLASS OF WATER LEVETIRACET 3-0 Yes [id number] TAKE 1 [facility] AM 1,000 mg 5-10 TABLET BY ity of tablet 00:00: MOUTH 2 [place] 00 TIMES Medical DAILY Branch SULFAMETHOX 2022-0 Yes [id number] TAKE 1 [facility] AZOLE-TRIME 5-10 TABLET BY ity of THOPRIM 00:00: MOUTH 2 [place] 800-160 mg 00 TIMES Medical per tablet DAILY WITH Bra nch A GLASS OF WATER LEVETIRACET 3-0 Yes [id number] TAKE 1 [facility] AM 1,000 mg 5-10 TABLET BY ity of tablet 00:00: MOUTH 2 00 TIMES Medical DAILY Branch SULFAMETHOX 2022-0 Yes [id number] TAKE 1 [facility] AZOLE-TRIME 5-10 TABLET BY ity of THOPRIM 00:00: MOUTH 2 [place] 800-160 mg 00 TIMES Medical per tablet DAILY WITH Bra nch A GLASS OF WATER LEVETIRACET 3-0 Yes [id number] TAKE 1 [facility] AM 1,000 mg 5-10 TABLET BY ity of tablet 00:00: MOUTH 2 [place] 00 TIMES Medical DAILY Branch SULFAMETHOX 2022-0 Yes [id number] TAKE 1 [facility] AZOLE-TRIME 5-10 TABLET BY ity of THOPRIM 00:00: MOUTH 2 [place] 800-160 mg 00 TIMES Medical per tablet DAILY WITH Bra [facility] A GLASS OF WATER LEVETIRACET 2022-0 Yes [id number] TAKE 1 [facility] AM 1,000 mg 5-10 TABLET BY ity of tablet 00:00: MOUTH 2 [place] 00 TIMES Medical DAILY Branch SULFAMETHOX 3-0 Yes [id number] TAKE 1 [facility] AZOLE-TRIME 5-10 TABLET BY ity of THOPRIM 00:00: MOUTH 2 [place] 800-160 mg 00 TIMES Medical per tablet DAILY WITH Bra nch A GLASS OF WATER LEVETIRACET 3-0 Yes [id number] TAKE 1 [facility] AM 1,000 mg 5-10 TABLET BY ity of tablet 00:00: MOUTH 2 [place] 00 TIMES Medical DAILY Branch SULFAMETHOX 2022-0 Yes [id number] TAKE 1 [facility] AZOLE-TRIME 5-10 TABLET BY ity of THOPRIM 00:00: MOUTH 2 [place] 800-160 mg 00 TIMES Medical per tablet DAILY WITH Bra pah A GLASS OF WATER LEVETIRACET 3-0 Yes [id number] TAKE 1 [facility] AM 1,000 mg 5-10 TABLET BY ity of tablet 00:00: MOUTH 2 [place] 00 TIMES Medical DAILY Branch SULFAMETHOX 2022-0 Yes [id number] TAKE 1 [facility] AZOLE-TRIME 5-10 TABLET BY ity of THOPRIM 00:00: MOUTH 2 [place] 800-160 mg 00 TIMES Medical per tablet DAILY WITH Bra nch A GLASS OF WATER LEVETIRACET 2022-0 Yes [id number] TAKE 1 [facility] AM 1,000 mg 5-10 TABLET BY ity of tablet 00:00: MOUTH 2 [place] 00 TIMES Medical DAILY Branch SULFAMETHOX 2022-0 Yes [id number] TAKE 1 [facility] AZOLE-TRIME 5-10 TABLET BY ity of THOPRIM 00:00: MOUTH 2 [place] 800-160 mg 00 TIMES Medical per tablet DAILY WITH Bra nch A GLASS OF WATER LEVETIRACET 2022-0 Yes [id number] TAKE 1 [facility] AM 1,000 mg 5-10 TABLET BY ity of tablet 00:00: MOUTH 2 00 TIMES Medical DAILY Branch SULFAMETHOX 2022-0 Yes [id number] TAKE 1 [facility] AZOLE-TRIME 5-10 TABLET BY ity of THOPRIM 00:00: MOUTH 2 [place] 800-160 mg 00 TIMES Medical per tablet DAILY WITH Bra nch A GLASS OF WATER LEVETIRACET 2022-0 Yes [id number] TAKE 1 [facility] AM 1,000 mg 5-10 TABLET BY ity of tablet 00:00: MOUTH 2 [place] 00 TIMES Medical DAILY Branch SULFAMETHOX 2022-0 Yes [id number] TAKE 1 [facility] AZOLE-TRIME 5-10 TABLET BY ity of THOPRIM 00:00: MOUTH 2 [place] 800-160 mg 00 TIMES Medical per tablet DAILY WITH Bra nch A GLASS OF WATER LEVETIRACET 3-0 Yes [id number] TAKE 1 [facility] AM 1,000 mg 5-10 TABLET BY ity of tablet 00:00: MOUTH 2 [place] 00 TIMES Medical DAILY Branch SULFAMETHOX 2022-0 Yes [id number] TAKE 1 [facility] AZOLE-TRIME 5-10 TABLET BY ity of THOPRIM 00:00: MOUTH 2 [place] 800-160 mg 00 TIMES Medical per tablet DAILY WITH Bra nch A GLASS OF WATER LEVETIRACET 2022-0 Yes [id number] TAKE 1 [facility] AM 1,000 mg 5-10 TABLET BY ity of tablet 00:00: MOUTH 2 [place] 00 TIMES Medical DAILY Branch SULFAMETHOX 3-0 Yes [id number] TAKE 1 [facility] AZOLE-TRIME 5-10 TABLET BY ity of THOPRIM 00:00: MOUTH 2 [place] 800-160 mg 00 TIMES Medical per tablet DAILY WITH Bra nch A GLASS OF WATER LEVETIRACET 2022-0 Yes [id number] TAKE 1 [facility] AM 1,000 mg 5-10 TABLET BY ity of tablet 00:00: MOUTH 2 [place] 00 TIMES Medical DAILY Branch SULFAMETHOX 2022-0 Yes [id number] TAKE 1 [facility] AZOLE-TRIME 5-10 TABLET BY ity of THOPRIM 00:00: MOUTH 2 [place] 800-160 mg 00 TIMES Medical per tablet DAILY WITH Bra nch A GLASS OF WATER LEVETIRACET 2022-0 Yes [id number] TAKE 1 [facility] AM 1,000 mg 5-10 TABLET BY ity of tablet 00:00: MOUTH 2 [place] 00 TIMES Medical DAILY Branch SULFAMETHOX 2022-0 Yes [id number] TAKE 1 [facility] AZOLE-TRIME 5-10 TABLET BY ity of THOPRIM 00:00: MOUTH 2 [place] 800-160 mg 00 TIMES Medical per tablet DAILY WITH Bra nch A GLASS OF WATER LEVETIRACET 2022-0 Yes [id number] TAKE 1 [facility] AM 1,000 mg 5-10 TABLET BY ity of tablet 00:00: MOUTH 2 [place] 00 TIMES Medical DAILY Branch SULFAMETHOX 2022-0 2023- No [id number] TAKE 1 [facility] AZOLE-TRIME 5-10 06-12 TABLET BY it y of THOPRIM 00:00: 00:00 MOUTH 2 [place] 800-160 mg 00 :00 TIMES Medical per tablet DAILY WITH Bra nch A GLASS OF WATER LEVETIRACET 3-0 2023- No [id number] TAKE 1 [facility] AM 1,000 mg 5-10 06-12 TABLET BY it y of tablet 00:00: 00:00 MOUTH 2 [place] 00 :00 TIMES Medical DAILY Branch ondansetron 2022-0 Yes [id number] 4mg Take 1 [facility] 4 mg tablet 5-09 tablet by ity of 00:00: mouth [place] 00 every 8 Medical (eight) Branch hours as needed for Nausea and Vomiting (N/V). ondansetron 2022-0 Yes [id number] 4mg Take 1 [facility] 4 mg tablet 5-09 tablet by ity of 00:00: mouth [place] 00 every 8 Medical (eight) Branch hours as needed for Nausea and Vomiting (N/V). ondansetron 2023-0 Yes [id number] 4mg Take 1 [facility] 4 mg tablet 5-09 tablet by ity of 00:00: mouth [place] 00 every 8 Medical (eight) Branch hours as needed for Nausea and Vomiting (N/V). ondansetron 2023-0 Yes [id number] 4mg Take 1 [facility] 4 mg tablet 5-09 tablet by ity of 00:00: mouth [place] 00 every 8 Medical (eight) Branch hours as needed for Nausea and Vomiting (N/V). ondansetron 2023-0 Yes [id number] 4mg Take 1 [facility] 4 mg tablet 5-09 tablet by ity of 00:00: mouth [place] 00 every 8 Medical (eight) Branch hours as needed for Nausea and Vomiting (N/V). ondansetron 2023-0 Yes [id number] 4mg Take 1 [facility] 4 mg tablet 5-09 tablet by ity of 00:00: mouth [place] 00 every 8 Medical (eight) Branch hours as needed for Nausea and Vomiting (N/V). ondansetron 2023-0 Yes [id number] 4mg Take 1 [facility] 4 mg tablet 5-09 tablet by ity of 00:00: mouth [place] 00 every 8 Medical (eight) Branch hours as needed for Nausea and Vomiting (N/V). ondansetron 2023-0 Yes [id number] 4mg Take 1 [facility] 4 mg tablet 5-09 tablet by ity of 00:00: mouth [place] 00 every 8 Medical (eight) Branch hours as needed for Nausea and Vomiting (N/V). ondansetron 2023-0 Yes [id number] 4mg Take 1 [facility] 4 mg tablet 5-09 tablet by ity of 00:00: mouth [place] 00 every 8 Medical (eight) Branch hours as needed for Nausea and Vomiting (N/V). ondansetron 2023-0 Yes [id number] 4mg Take 1 [facility] 4 mg tablet 5-09 tablet by ity of 00:00: mouth [place] 00 every 8 Medical (eight) Branch hours as needed for Nausea and Vomiting (N/V). ondansetron 2023-0 Yes [id number] 4mg Take 1 [facility] 4 mg tablet 5-09 tablet by ity of 00:00: mouth [place] 00 every 8 Medical (eight) Branch hours as needed for Nausea and Vomiting (N/V). ondansetron 2023-0 Yes [id number] 4mg Take 1 [facility] 4 mg tablet 5-09 tablet by ity of 00:00: mouth [place] 00 every 8 Medical (eight) Branch hours as needed for Nausea and Vomiting (N/V). ondansetron 2023-0 Yes [id number] 4mg Take 1 [facility] 4 mg tablet 5-09 tablet by ity of 00:00: mouth [place] 00 every 8 Medical (eight) Branch hours as needed for Nausea and Vomiting (N/V). ondansetron 2023-0 Yes [id number] 4mg Take 1 [facility] 4 mg tablet 5-09 tablet by ity of 00:00: mouth [place] 00 every 8 Medical (eight) Branch hours as needed for Nausea and Vomiting (N/V). ondansetron 2023-0 Yes [id number] 4mg Take 1 [facility] 4 mg tablet 5-09 tablet by ity of 00:00: mouth [place] 00 every 8 Medical (eight) Branch hours as needed for Nausea and Vomiting (N/V). ondansetron 2023-0 Yes [id number] 4mg Take 1 [facility] 4 mg tablet 5-09 tablet by ity of 00:00: mouth [place] 00 every 8 Medical (eight) Branch hours as needed for Nausea and Vomiting (N/V). ondansetron 2023-0 Yes [id number] 4mg Take 1 [facility] 4 mg tablet 5-09 tablet by ity of 00:00: mouth [place] 00 every 8 Medical (eight) Branch hours as needed for Nausea and Vomiting (N/V). ondansetron 2023-0 Yes [id number] 4mg Take 1 [facility] 4 mg tablet 5-09 tablet by ity of 00:00: mouth [place] 00 every 8 Medical (eight) Branch hours as needed for Nausea and Vomiting (N/V). ondansetron 2023-0 Yes [id number] 4mg Take 1 [facility] 4 mg tablet 5-09 tablet by ity of 00:00: mouth [place] 00 every 8 Medical (eight) Branch hours as needed for Nausea and Vomiting (N/V). METFORMIN 2023-0 Yes [id number] TAKE 2 [facility] ER 500 mg 5-04 TABLETS BY ity of 24 hr 00:00: MOUTH 2 [place] tablet 00 TIMES Medical DAILY WITH Branch FOOD METFORMIN 2022-0 Yes [id number] TAKE 2 [facility] ER 500 mg 5-04 TABLETS BY ity of 24 hr 00:00: MOUTH 2 [place] tablet 00 TIMES Medical DAILY WITH Branch FOOD METFORMIN 2022-0 Yes [id number] TAKE 2 [facility] ER 500 mg 5-04 TABLETS BY ity of 24 hr 00:00: MOUTH 2 [place] tablet 00 TIMES Medical DAILY WITH Branch FOOD HYDROcodone 2022-0 Yes [id number] TAKE 1 [facility] ers -acetaminop 5-04 TABLET BY ity of hen 10-325 00:00: MOUTH [place] mg tablet 00 EVERY 4 Medical HOURS Branch NEEDED FOR PAIN *MAY IMPAIR ALERTNESS* * Indication s: chronic pain METFORMIN 2022-0 Yes [id number] TAKE 2 [facility] ER 500 mg 5-04 TABLETS BY ity of 24 hr 00:00: MOUTH 2 [place] tablet 00 TIMES Medical DAILY WITH Branch FOOD HYDROcodone 2022-0 Yes [id number] TAKE 1 Univ ers -acetaminop 5-04 TABLET BY ity of hen 10-325 00:00: MOUTH [place] mg tablet 00 EVERY 4 Medical HOURS Branch NEEDED FOR PAIN *MAY IMPAIR ALERTNESS* * Indication s: chronic pain METFORMIN 2022-0 Yes [id number] TAKE 2 [facility] ER 500 mg 5-04 TABLETS BY ity of 24 hr 00:00: MOUTH 2 [place] tablet 00 TIMES Medical DAILY WITH Branch FOOD HYDROcodone 2022-0 Yes [id number] TAKE 1 [facility] ers -acetaminop 5-04 TABLET BY ity of hen 10-325 00:00: MOUTH [place] mg tablet 00 EVERY 4 Medical HOURS Branch NEEDED FOR PAIN *MAY IMPAIR ALERTNESS* * Indication s: chronic pain METFORMIN 2022-0 Yes [id number] TAKE 2 [facility] ER 500 mg 5-04 TABLETS BY ity of 24 hr 00:00: MOUTH 2 [place] tablet 00 TIMES Medical DAILY WITH Branch FOOD HYDROcodone 2022-0 Yes [id number] TAKE 1 [facility] ers -acetaminop 5-04 TABLET BY ity of hen 10-325 00:00: MOUTH [place] mg tablet 00 EVERY 4 Medical HOURS Branch NEEDED FOR PAIN *MAY IMPAIR ALERTNESS* * Indication s: chronic pain METFORMIN 2022-0 Yes [id number] TAKE 2 [facility] ER 500 mg 5-04 TABLETS BY ity of 24 hr 00:00: MOUTH 2 [place] tablet 00 TIMES Medical DAILY WITH Branch FOOD HYDROcodone 2022-0 Yes [id number] TAKE 1 [facility] ers -acetaminop 5-04 TABLET BY ity of hen 10-325 00:00: MOUTH [place] mg tablet 00 EVERY 4 Medical HOURS Branch NEEDED FOR PAIN *MAY IMPAIR ALERTNESS* * Indication s: chronic pain METFORMIN 2022-0 Yes [id number] TAKE 2 [facility] ER 500 mg 5-04 TABLETS BY ity of 24 hr 00:00: MOUTH 2 [place] tablet 00 TIMES Medical DAILY WITH Branch FOOD HYDROcodone 2022-0 Yes [id number] TAKE 1 [facility] ers -acetaminop 5-04 TABLET BY ity of hen 10-325 00:00: MOUTH [place] mg tablet 00 EVERY 4 Medical HOURS Branch NEEDED FOR PAIN *MAY IMPAIR ALERTNESS* * Indication s: chronic pain METFORMIN 2022-0 Yes [id number] TAKE 2 [facility] ER 500 mg 5-04 TABLETS BY ity of 24 hr 00:00: MOUTH 2 [place] tablet 00 TIMES Medical DAILY WITH Branch FOOD HYDROcodone 2022-0 Yes [id number] TAKE 1 [facility] ers -acetaminop 5-04 TABLET BY ity of hen 10-325 00:00: MOUTH [place] mg tablet 00 EVERY 4 Medical HOURS Branch NEEDED FOR PAIN *MAY IMPAIR ALERTNESS* * Indication s: chronic pain METFORMIN 2022-0 Yes [id number] TAKE 2 [facility] ER 500 mg 5-04 TABLETS BY ity of 24 hr 00:00: MOUTH 2 [place] tablet 00 TIMES Medical DAILY WITH Branch FOOD HYDROcodone 2022-0 Yes 2745 TAKE 1 Univ ers -acetaminop 5-04 TABLET BY ity of hen 10-325 00:00: MOUTH [place] mg tablet 00 EVERY 4 Medical HOURS Branch NEEDED FOR PAIN *MAY IMPAIR ALERTNESS* * Indication s: chronic pain METFORMIN 2022-0 Yes [id number] TAKE 2 [facility] ER 500 mg 5-04 TABLETS BY ity of 24 hr 00:00: MOUTH 2 [place] tablet 00 TIMES Medical DAILY WITH Branch FOOD HYDROcodone 2022-0 Yes 2745 TAKE 1 [facility] ers -acetaminop 5-04 TABLET BY ity of hen 10-325 00:00: MOUTH [place] mg tablet 00 EVERY 4 Medical HOURS Branch NEEDED FOR PAIN *MAY IMPAIR ALERTNESS* * Indication s: chronic pain METFORMIN 2022-0 Yes [id number] TAKE 2 [facility] ER 500 mg 5-04 TABLETS BY ity of 24 hr 00:00: MOUTH 2 [place] tablet 00 TIMES Medical DAILY WITH Branch FOOD HYDROcodone 2022-0 Yes 2745 TAKE 1 [facility] ers -acetaminop 5-04 TABLET BY ity of hen 10-325 00:00: MOUTH [place] mg tablet 00 EVERY 4 Medical HOURS Branch NEEDED FOR PAIN *MAY IMPAIR ALERTNESS* * Indication s: chronic pain METFORMIN 2022-0 Yes [id number] TAKE 2 [facility] ER 500 mg 5-04 TABLETS BY ity of 24 hr 00:00: MOUTH 2 [place] tablet 00 TIMES Medical DAILY WITH Branch FOOD HYDROcodone Yes 2745 TAKE 1 [facility] ers -acetaminop 5-04 TABLET BY ity of hen 10-325 00:00: MOUTH [place] mg tablet 00 EVERY 4 Medical HOURS Branch NEEDED FOR PAIN *MAY IMPAIR ALERTNESS* * Indication s: chronic pain METFORMIN 2022-0 Yes [id number] TAKE 2 [facility] ER 500 mg 5-04 TABLETS BY ity of 24 hr 00:00: MOUTH 2 [place] tablet 00 TIMES Medical DAILY WITH Branch FOOD HYDROcodone 0 Yes 2745 TAKE 1 [facility] ers -acetaminop 5-04 TABLET BY ity of hen 10-325 00:00: MOUTH [place] mg tablet 00 EVERY 4 Medical HOURS Branch NEEDED FOR PAIN *MAY IMPAIR ALERTNESS* * Indication s: chronic pain METFORMIN 2022-0 Yes [id number] TAKE 2 [facility] ER 500 mg 5-04 TABLETS BY ity of 24 hr 00:00: MOUTH 2 [place] tablet 00 TIMES Medical DAILY WITH Branch FOOD HYDROcodone 2022-0 Yes 2745 TAKE 1 [facility] ers -acetaminop 5-04 TABLET BY ity of hen 10-325 00:00: MOUTH [place] mg tablet 00 EVERY 4 Medical HOURS Branch NEEDED FOR PAIN *MAY IMPAIR ALERTNESS* * Indication s: chronic pain METFORMIN 2022-0 Yes [id number] TAKE 2 [facility] ER 500 mg 5-04 TABLETS BY ity of 24 hr 00:00: MOUTH 2 [place] tablet 00 TIMES Medical DAILY WITH Branch FOOD HYDROcodone 2022-0 Yes 2745 TAKE 1 [facility] ers -acetaminop 5-04 TABLET BY ity of hen 10-325 00:00: MOUTH [place] mg tablet 00 EVERY 4 Medical HOURS Branch NEEDED FOR PAIN *MAY IMPAIR ALERTNESS* * Indication s: chronic pain METFORMIN 2022-0 Yes [id number] TAKE 2 [facility] ER 500 mg 5-04 TABLETS BY ity of 24 hr 00:00: MOUTH 2 [place] tablet 00 TIMES Medical DAILY WITH Branch FOOD HYDROcodone 2022-0 Yes 2745 TAKE 1 [facility] ers -acetaminop 5-04 TABLET BY ity of hen 10-325 00:00: MOUTH [place] mg tablet 00 EVERY 4 Medical HOURS Branch NEEDED FOR PAIN *MAY IMPAIR ALERTNESS* * Indication s: chronic pain METFORMIN 2022-0 Yes [id number] TAKE 2 [facility] ER 500 mg 5-04 TABLETS BY ity of 24 hr 00:00: MOUTH 2 [place] tablet 00 TIMES Medical DAILY WITH Branch FOOD HYDROcodone 2022-0 Yes 2745 TAKE 1 [facility] ers -acetaminop 5-04 TABLET BY ity of hen 10-325 00:00: MOUTH [place] mg tablet 00 EVERY 4 Medical HOURS Branch NEEDED FOR PAIN *MAY IMPAIR ALERTNESS* * Indication s: chronic pain METFORMIN 2022-0 Yes [id number] TAKE 2 [facility] ER 500 mg 5-04 TABLETS BY ity of 24 hr 00:00: MOUTH 2 [place] tablet 00 TIMES Medical DAILY WITH Branch FOOD HYDROcodone 2022-0 Yes 2745 TAKE 1 [facility] ers -acetaminop 5-04 TABLET BY ity of hen 10-325 00:00: MOUTH [place] mg tablet 00 EVERY 4 Medical HOURS Branch NEEDED FOR PAIN *MAY IMPAIR ALERTNESS* * Indication s: chronic pain METFORMIN 2022-0 Yes [id number] TAKE 2 [facility] ER 500 mg 5-04 TABLETS BY ity of 24 hr 00:00: MOUTH 2 [place] tablet 00 TIMES Medical DAILY WITH Branch FOOD HYDROcodone 2022-0 Yes 2745 TAKE 1 [facility] ers -acetaminop 5-04 TABLET BY ity of hen 10-325 00:00: MOUTH [place] mg tablet 00 EVERY 4 Medical HOURS Branch NEEDED FOR PAIN *MAY IMPAIR ALERTNESS* * Indication s: chronic pain METFORMIN 2022-0 Yes [id number] TAKE 2 [facility] ER 500 mg 5-04 TABLETS BY ity of 24 hr 00:00: MOUTH 2 [place] tablet 00 TIMES Medical DAILY WITH Branch FOOD HYDROcodone 2022-0 Yes 2745 TAKE 1 [facility] ers -acetaminop 5-04 TABLET BY ity of hen 10-325 00:00: MOUTH [place] mg tablet 00 EVERY 4 Medical HOURS Branch NEEDED FOR PAIN *MAY IMPAIR ALERTNESS* * Indication s: chronic pain METFORMIN 0 Yes [id number] TAKE 2 [facility] ER 500 mg 5-04 TABLETS BY ity of 24 hr 00:00: MOUTH 2 [place] tablet 00 TIMES Medical DAILY WITH Branch FOOD METFORMIN 0 Yes [id number] TAKE 2 [facility] ER 500 mg 5-04 TABLETS BY ity of 24 hr 00:00: MOUTH 2 [place] tablet 00 TIMES Medical DAILY WITH Branch FOOD METFORMIN 2022-0 2022- No [id number] TAKE 2 U nivers ER 500 mg 5-04 06-12 TABLETS BY ity of 24 hr 00:00: 00:00 MOUTH 2 [place] tablet 00 :00 TIMES Medical DAILY WITH Branch FOOD HYDROcodone 2022-0 2022- No [id number] TAKE 1 [facility] vers -acetaminop 5-04 06-05 TABLET BY it y of hen 10-325 00:00: 00:00 MOUTH [place] mg tablet 00 :00 EVERY 4 Medical HOURS Branch NEEDED FOR PAIN *MAY IMPAIR ALERTNESS* * Indication s: chronic pain [place] Yes [id number] INJECT 72 [facility] SOLOSTAR 5-03 UNITS ity of U-300 00:00: UNDER THE [place] INSULIN 300 00 SKIN ONCE Med ical unit/mL DAILY IN Branch (1.5 mL) THE InPn EVENING (ADJUSTING DOSE BY 2 UNITS DAILY UNTIL FASTING BLOOD SUGAR LESS THAN 200) LATUDA 40 0 Yes [id number] TAKE 1 U nivers mg tablet 5-03 TABLET BY ity o f 00:00: MOUTH AT [place] 00 BEDTIME Medical Branch METHOCARBAM 0 Yes [id number] TAKE 1 [facility] OL 500 mg 5-03 TABLET BY ity o f tablet 00:00: MOUTH [place] 00 EVERY 6 Medical HOURS Branch NEEDED FOR PAIN (SCALE 4-6). *MAY IMPAIR ALERTNESS* * IBUPROFEN Yes [id number] TAKE 1 U nivers 800 mg 5-03 TABLET BY ity of tablet 00:00: MOUTH [place] 00 EVERY 6 Medical HOURS WITH Branch FOOD NEEDED *DO NOT TAKE ASPRIN* BACLOFEN 20 2022-0 Yes [id number] TAKE 1 [facility] mg tablet 5-03 TABLET BY ity o f 00:00: MOUTH 3 [place] 00 TIMES Medical DAILY *MAY Branch IMPAIR ALERTNESS* * CLOPIDOGREL Yes [id number] TAKE 1 [facility] 75 mg 5-03 TABLET BY ity of tablet 00:00: MOUTH [place] 00 EVERY DAY Medical Branch [facility] Yes [id number] INJECT 72 [facility] SOLOSTAR 5-03 UNITS ity of U-300 00:00: UNDER THE [place] INSULIN 300 00 SKIN ONCE Med ical unit/mL DAILY IN Branch (1.5 mL) THE InPn EVENING (ADJUSTING DOSE BY 2 UNITS DAILY UNTIL FASTING BLOOD SUGAR LESS THAN 200) LATUDA 40 0 Yes [id number] TAKE 1 U nivers mg tablet 5-03 TABLET BY ity o f 00:00: MOUTH AT [place] 00 BEDTIME Medical Branch METHOCARBAM Yes [id number] TAKE 1 [facility] OL 500 mg 5-03 TABLET BY ity o f tablet 00:00: MOUTH [place] 00 EVERY 6 Medical HOURS Branch NEEDED FOR PAIN (SCALE 4-6). *MAY IMPAIR ALERTNESS* * IBUPROFEN Yes [id number] TAKE 1 U nivers 800 mg 5-03 TABLET BY ity of tablet 00:00: MOUTH [place] 00 EVERY 6 Medical HOURS WITH Branch FOOD NEEDED *DO NOT TAKE ASPRIN* BACLOFEN 20 Yes [id number] TAKE 1 [facility] mg tablet 5-03 TABLET BY ity o f 00:00: MOUTH 3 [place] 00 TIMES Medical DAILY *MAY Branch IMPAIR ALERTNESS* * CLOPIDOGREL Yes [id number] TAKE 1 [facility] 75 mg 5-03 TABLET BY ity of tablet 00:00: MOUTH [place] 00 EVERY DAY Medical Branch [facility] Yes [id number] INJECT 72 [facility] SOLOSTAR 5-03 UNITS ity of U-300 00:00: UNDER THE [place] INSULIN 300 00 SKIN ONCE Med ical unit/mL DAILY IN Branch (1.5 mL) THE InPn EVENING (ADJUSTING DOSE BY 2 UNITS DAILY UNTIL FASTING BLOOD SUGAR LESS THAN 200) LATUDA 40 2022-0 Yes [id number] TAKE 1 U nivers mg tablet 5-03 TABLET BY ity o f 00:00: MOUTH AT [place] 00 BEDTIME Medical Branch METHOCARBAM 0 Yes [id number] TAKE 1 [facility] OL 500 mg 5-03 TABLET BY ity o f tablet 00:00: MOUTH [place] 00 EVERY 6 Medical HOURS Branch NEEDED FOR PAIN (SCALE 4-6). *MAY IMPAIR ALERTNESS* * IBUPROFEN Yes [id number] TAKE 1 U nivers 800 mg 5-03 TABLET BY ity of tablet 00:00: MOUTH [place] 00 EVERY 6 Medical HOURS WITH Branch FOOD NEEDED *DO NOT TAKE ASPRIN* BACLOFEN 20 Yes [id number] TAKE 1 [facility] mg tablet 5-03 TABLET BY ity o f 00:00: MOUTH 3 [place] 00 TIMES Medical DAILY *MAY Branch IMPAIR ALERTNESS* * CLOPIDOGREL Yes [id number] TAKE 1 [facility] 75 mg 5-03 TABLET BY ity of tablet 00:00: MOUTH [place] 00 EVERY DAY Medical Branch [facility] Yes [id number] INJECT 72 [facility] SOLOSTAR 5-03 UNITS ity of U-300 00:00: UNDER THE [place] INSULIN 300 00 SKIN ONCE Med ical unit/mL DAILY IN Branch (1.5 mL) THE InPn EVENING (ADJUSTING DOSE BY 2 UNITS DAILY UNTIL FASTING BLOOD SUGAR LESS THAN 200) LATUDA 40 0 Yes [id number] TAKE 1 U nivers mg tablet 5-03 TABLET BY ity o f 00:00: MOUTH AT [place] 00 BEDTIME Medical Branch METHOCARBAM Yes [id number] TAKE 1 [facility] OL 500 mg 5-03 TABLET BY ity o f tablet 00:00: MOUTH [place] 00 EVERY 6 Medical HOURS Branch NEEDED FOR PAIN (SCALE 4-6). *MAY IMPAIR ALERTNESS* * IBUPROFEN Yes [id number] TAKE 1 U nivers 800 mg 5-03 TABLET BY ity of tablet 00:00: MOUTH [place] 00 EVERY 6 Medical HOURS WITH Branch FOOD NEEDED *DO NOT TAKE ASPRIN* BACLOFEN 20 Yes [id number] TAKE 1 [facility] mg tablet 5-03 TABLET BY ity o f 00:00: MOUTH 3 [place] 00 TIMES Medical DAILY *MAY Branch IMPAIR ALERTNESS* * CLOPIDOGREL Yes [id number] TAKE 1 [facility] 75 mg 5-03 TABLET BY ity of tablet 00:00: MOUTH [place] 00 EVERY DAY Medical Branch [facility] Yes [id number] INJECT 72 [facility] SOLOSTAR 5-03 UNITS ity of U-300 00:00: UNDER THE [place] INSULIN 300 00 SKIN ONCE Med ical unit/mL DAILY IN Branch (1.5 mL) THE InPn EVENING (ADJUSTING DOSE BY 2 UNITS DAILY UNTIL FASTING BLOOD SUGAR LESS THAN 200) LATUDA 40 Yes [id number] TAKE 1 U nivers mg tablet 5-03 TABLET BY ity o f 00:00: MOUTH AT [place] 00 BEDTIME Medical Branch METHOCARBAM 0 Yes [id number] TAKE 1 [facility] OL 500 mg 5-03 TABLET BY ity o f tablet 00:00: MOUTH [place] 00 EVERY 6 Medical HOURS Branch NEEDED FOR PAIN (SCALE 4-6). *MAY IMPAIR ALERTNESS* * IBUPROFEN Yes [id number] TAKE 1 U nivers 800 mg 5-03 TABLET BY ity of tablet 00:00: MOUTH [place] 00 EVERY 6 Medical HOURS WITH Branch FOOD NEEDED *DO NOT TAKE ASPRIN* BACLOFEN 20 Yes [id number] TAKE 1 [facility] mg tablet 5-03 TABLET BY ity o f 00:00: MOUTH 3 [place] 00 TIMES Medical DAILY *MAY Branch IMPAIR ALERTNESS* * CLOPIDOGREL Yes [id number] TAKE 1 [facility] 75 mg 5-03 TABLET BY ity of tablet 00:00: MOUTH [place] 00 EVERY DAY Medical Branch TOUJEO Yes [id number] INJECT 72 [facility] SOLOSTAR 5-03 UNITS ity of U-300 00:00: UNDER THE [place] INSULIN 300 00 SKIN ONCE Med ical unit/mL DAILY IN Branch (1.5 mL) THE InPn EVENING (ADJUSTING DOSE BY 2 UNITS DAILY UNTIL FASTING BLOOD SUGAR LESS THAN 200) LATUDA 40 0 Yes [id number] TAKE 1 U nivers mg tablet 5-03 TABLET BY ity o f 00:00: MOUTH AT [place] 00 BEDTIME Medical Branch METHOCARBAM 0 Yes [id number] TAKE 1 [facility] OL 500 mg 5-03 TABLET BY ity o f tablet 00:00: MOUTH [place] 00 EVERY 6 Medical HOURS Branch NEEDED FOR PAIN (SCALE 4-6). *MAY IMPAIR ALERTNESS* * IBUPROFEN Yes [id number] TAKE 1 U nivers 800 mg 5-03 TABLET BY ity of tablet 00:00: MOUTH [place] 00 EVERY 6 Medical HOURS WITH Branch FOOD NEEDED *DO NOT TAKE ASPRIN* BACLOFEN 20 Yes [id number] TAKE 1 [facility] mg tablet 5-03 TABLET BY ity o f 00:00: MOUTH 3 [place] 00 TIMES Medical DAILY *MAY Branch IMPAIR ALERTNESS* * CLOPIDOGREL 2022-0 Yes [id number] TAKE 1 [facility] 75 mg 5-03 TABLET BY ity of tablet 00:00: MOUTH [place] 00 EVERY DAY [facility] Branch [facility] 20[facility] Yes [id number] INJECT 72 Un reinier SOLOSTAR 5-03 UNITS ity of U-300 00:00: UNDER THE [place] INSULIN 300 00 SKIN ONCE Med ical unit/mL DAILY IN Branch (1.5 mL) THE InPn EVENING (ADJUSTING DOSE BY 2 UNITS DAILY UNTIL FASTING BLOOD SUGAR LESS THAN 200) LATUDA 40 2022-0 Yes [id number] TAKE 1 U nivers mg tablet 5-03 TABLET BY ity o f 00:00: MOUTH AT [place] 00 BEDTIME Medical Branch METHOCARBAM 2022-0 Yes [id number] TAKE 1 [facility] OL 500 mg 5-03 TABLET BY ity o f tablet 00:00: MOUTH [place] 00 EVERY 6 Medical HOURS Branch NEEDED FOR PAIN (SCALE 4-6). *MAY IMPAIR ALERTNESS* * IBUPROFEN 2022-0 Yes [id number] TAKE 1 U nivers 800 mg 5-03 TABLET BY ity of tablet 00:00: MOUTH [place] 00 EVERY 6 Medical HOURS WITH Branch FOOD NEEDED *DO NOT TAKE ASPRIN* BACLOFEN 20 2022-0 Yes [id number] TAKE 1 [facility] mg tablet 5-03 TABLET BY ity o f 00:00: MOUTH 3 [place] 00 TIMES Medical DAILY *MAY Branch IMPAIR ALERTNESS* * CLOPIDOGREL 2022-0 Yes [id number] TAKE 1 [facility] 75 mg 5-03 TABLET BY ity of tablet 00:00: MOUTH [place] 00 EVERY DAY Medical [facility] 2022-0 Yes [id number] INJECT 72 [facility] reinier SOLOSTAR 5-03 UNITS ity of U-300 00:00: UNDER THE [place] INSULIN 300 00 SKIN ONCE Med ical unit/mL DAILY IN Branch (1.5 mL) THE InPn EVENING (ADJUSTING DOSE BY 2 UNITS DAILY UNTIL FASTING BLOOD SUGAR LESS THAN 200) LATUDA 40 2022-0 Yes [id number] TAKE 1 U nivers mg tablet 5-03 TABLET BY ity o f 00:00: MOUTH AT [place] 00 BEDTIME Medical Branch METHOCARBAM 2022-0 Yes [id number] TAKE 1 [facility] OL 500 mg 5-03 TABLET BY ity o f tablet 00:00: MOUTH [place] 00 EVERY 6 Medical HOURS Branch NEEDED FOR PAIN (SCALE 4-6). *MAY IMPAIR ALERTNESS* * IBUPROFEN Yes [id number] TAKE 1 [facility] nivers 800 mg 5-03 TABLET BY ity of tablet 00:00: MOUTH [place] 00 EVERY 6 Medical HOURS WITH Branch FOOD NEEDED *DO NOT TAKE ASPRIN* BACLOFEN 20 2022-0 Yes [id number] TAKE 1 [facility] mg tablet 5-03 TABLET BY ity o f 00:00: MOUTH 3 [place] 00 TIMES Medical DAILY *MAY Branch IMPAIR ALERTNESS* * CLOPIDOGREL Yes [id number] TAKE 1 [facility] 75 mg 5-03 TABLET BY ity of tablet 00:00: MOUTH [place] 00 EVERY DAY [facility] [place] [id number] INJECT 72 Un reinier SOLOSTAR 5-03 UNITS ity of U-300 00:00: UNDER THE [place] INSULIN 300 00 SKIN ONCE Med ical unit/mL DAILY IN Branch (1.5 mL) THE InPn EVENING (ADJUSTING DOSE BY 2 UNITS DAILY UNTIL FASTING BLOOD SUGAR LESS THAN 200) LATUDA 40 0 Yes [id number] TAKE 1 U nivers mg tablet 5-03 TABLET BY ity o f 00:00: MOUTH AT [place] 00 BEDTIME Medical Branch METHOCARBAM 0 Yes [id number] TAKE 1 [facility] OL 500 mg 5-03 TABLET BY ity o f tablet 00:00: MOUTH [place] 00 EVERY 6 Medical HOURS Branch NEEDED FOR PAIN (SCALE 4-6). *MAY IMPAIR ALERTNESS* * IBUPROFEN Yes [id number] TAKE 1 [facility] nivers 800 mg 5-03 TABLET BY ity of tablet 00:00: MOUTH [place] 00 EVERY 6 Medical HOURS WITH Branch FOOD NEEDED *DO NOT TAKE ASPRIN* BACLOFEN 20 Yes [id number] TAKE 1 [facility] mg tablet 5-03 TABLET BY ity o f 00:00: MOUTH 3 [place] 00 TIMES Medical DAILY *MAY Branch IMPAIR ALERTNESS* * CLOPIDOGREL Yes [id number] TAKE 1 [facility] 75 mg 5-03 TABLET BY ity of tablet 00:00: MOUTH [place] 00 EVERY DAY Medical Branch TOUO 2022-0 Yes [id number] INJECT 72 Un reinier SOLOSTAR 5-03 UNITS ity of U-300 00:00: UNDER THE [place] INSULIN 300 00 SKIN ONCE Med ical unit/mL DAILY IN Branch (1.5 mL) THE InPn EVENING (ADJUSTING DOSE BY 2 UNITS DAILY UNTIL FASTING BLOOD SUGAR LESS THAN 200) LATUDA 40 2022-0 Yes [id number] TAKE 1 U nivers mg tablet 5-03 TABLET BY ity o f 00:00: MOUTH AT [place] 00 BEDTIME Medical Branch METHOCARBAM 0 Yes [id number] TAKE 1 [facility] OL 500 mg 5-03 TABLET BY ity o f tablet 00:00: MOUTH [place] 00 EVERY 6 Medical HOURS Branch NEEDED FOR PAIN (SCALE 4-6). *MAY IMPAIR ALERTNESS* * IBUPROFEN Yes [id number] TAKE 1 [facility] nivers 800 mg 5-03 TABLET BY ity of tablet 00:00: MOUTH [place] 00 EVERY 6 Medical HOURS WITH Branch FOOD NEEDED *DO NOT TAKE ASPRIN* BACLOFEN 20 Yes [id number] TAKE 1 [facility] mg tablet 5-03 TABLET BY ity o f 00:00: MOUTH 3 [place] 00 TIMES Medical DAILY *MAY Branch IMPAIR ALERTNESS* * CLOPIDOGREL Yes [id number] TAKE 1 [facility] 75 mg 5-03 TABLET BY ity of tablet 00:00: MOUTH [place] 00 EVERY DAY Medical Branch TOUJEO 0 Yes [id number] INJECT 72 [facility] reinier SOLOSTAR 5-03 UNITS ity of U-300 00:00: UNDER THE [place] INSULIN 300 00 SKIN ONCE Med ical unit/mL DAILY IN Branch (1.5 mL) THE InPn EVENING (ADJUSTING DOSE BY 2 UNITS DAILY UNTIL FASTING BLOOD SUGAR LESS THAN 200) LATUDA 40 2022-0 Yes [id number] TAKE 1 U nivers mg tablet 5-03 TABLET BY ity o f 00:00: MOUTH AT [place] 00 BEDTIME Medical Branch METHOCARBAM 0 Yes [id number] TAKE 1 [facility] OL 500 mg 5-03 TABLET BY ity o f tablet 00:00: MOUTH [place] 00 EVERY 6 Medical HOURS Branch NEEDED FOR PAIN (SCALE 4-6). *MAY IMPAIR ALERTNESS* * IBUPROFEN 2022-0 Yes [id number] TAKE 1 U nivers 800 mg 5-03 TABLET BY ity of tablet 00:00: MOUTH [place] 00 EVERY 6 Medical HOURS WITH Branch FOOD NEEDED *DO NOT TAKE ASPRIN* BACLOFEN 20 0 Yes [id number] TAKE 1 [facility] mg tablet 5-03 TABLET BY ity o f 00:00: MOUTH 3 [place] 00 TIMES Medical DAILY *MAY Branch IMPAIR ALERTNESS* * CLOPIDOGREL 2022- Yes [id number] TAKE 1 [facility] 75 mg 5-03 TABLET BY ity of tablet 00:00: MOUTH [place] 00 EVERY DAY Medical [facility] Yes [id number] INJECT 72 Un reinier SOLOSTAR 5-03 UNITS ity of U-300 00:00: UNDER THE [place] INSULIN 300 00 SKIN ONCE Med ical unit/mL DAILY IN Branch (1.5 mL) THE InPn EVENING (ADJUSTING DOSE BY 2 UNITS DAILY UNTIL FASTING BLOOD SUGAR LESS THAN 200) LATUDA 40 2022-0 Yes [id number] TAKE 1 [facility] nivers mg tablet 5-03 TABLET BY ity o f 00:00: MOUTH AT [place] 00 BEDTIME Medical Branch METHOCARBAM 2022-0 Yes [id number] TAKE 1 [facility] OL 500 mg 5-03 TABLET BY ity o f tablet 00:00: MOUTH [place] 00 EVERY 6 Medical HOURS Branch NEEDED FOR PAIN (SCALE 4-6). *MAY IMPAIR ALERTNESS* * IBUPROFEN 2022-0 Yes [id number] TAKE 1 [facility] nivers 800 mg 5-03 TABLET BY ity of tablet 00:00: MOUTH [place] 00 EVERY 6 Medical HOURS WITH Branch FOOD NEEDED *DO NOT TAKE ASPRIN* BACLOFEN 20 2022-0 Yes [id number] TAKE 1 [facility] mg tablet 5-03 TABLET BY ity o f 00:00: MOUTH 3 [place] 00 TIMES Medical DAILY *MAY Branch IMPAIR ALERTNESS* * CLOPIDOGREL Yes [id number] TAKE 1 [facility] 75 mg 5-03 TABLET BY ity of tablet 00:00: MOUTH [place] 00 EVERY DAY Medical Branch [facility] 0 Yes [id number] INJECT 72 Un reinier SOLOSTAR 5-03 UNITS ity of U-300 00:00: UNDER THE [place] INSULIN 300 00 SKIN ONCE Med ical unit/mL DAILY IN Branch (1.5 mL) THE InPn EVENING (ADJUSTING DOSE BY 2 UNITS DAILY UNTIL FASTING BLOOD SUGAR LESS THAN 200) LATUDA 40 2022-0 Yes [id number] TAKE 1 U nivers mg tablet 5-03 TABLET BY ity o f 00:00: MOUTH AT [place] 00 BEDTIME Medical Branch METHOCARBAM 2022-0 Yes [id number] TAKE 1 [facility] OL 500 mg 5-03 TABLET BY ity o f tablet 00:00: MOUTH [place] 00 EVERY 6 Medical HOURS Branch NEEDED FOR PAIN (SCALE 4-6). *MAY IMPAIR ALERTNESS* * IBUPROFEN Yes [id number] TAKE 1 U nivers 800 mg 5-03 TABLET BY ity of tablet 00:00: MOUTH [place] 00 EVERY 6 Medical HOURS WITH Branch FOOD NEEDED *DO NOT TAKE ASPRIN* BACLOFEN 20 2022-0 Yes [id number] TAKE 1 [facility] mg tablet 5-03 TABLET BY ity o f 00:00: MOUTH 3 [place] 00 TIMES Medical DAILY *MAY Branch IMPAIR ALERTNESS* * CLOPIDOGREL Yes [id number] TAKE 1 [facility] 75 mg 5-03 TABLET BY ity of tablet 00:00: MOUTH [place] 00 EVERY DAY Medical Branch [place] Yes [id number] INJECT 72 Un reinier SOLOSTAR 5-03 UNITS ity of U-300 00:00: UNDER THE [place] INSULIN 300 00 SKIN ONCE Med ical unit/mL DAILY IN Branch (1.5 mL) THE InPn EVENING (ADJUSTING DOSE BY 2 UNITS DAILY UNTIL FASTING BLOOD SUGAR LESS THAN 200) [facility] 40 Yes [id number] TAKE 1 U nivers mg tablet 5-03 TABLET BY ity o f 00:00: MOUTH AT [place] 00 BEDTIME Medical Branch METHOCARBAM 0 Yes [id number] TAKE 1 [facility] OL 500 mg 5-03 TABLET BY ity o f tablet 00:00: MOUTH [place] 00 EVERY 6 Medical HOURS Branch NEEDED FOR PAIN (SCALE 4-6). *MAY IMPAIR ALERTNESS* * IBUPROFEN 2022-0 Yes [id number] TAKE 1 U nivers 800 mg 5-03 TABLET BY ity of tablet 00:00: MOUTH [place] 00 EVERY 6 Medical HOURS WITH Branch FOOD NEEDED *DO NOT TAKE ASPRIN* BACLOFEN 20 2022-0 Yes [id number] TAKE 1 [facility] mg tablet 5-03 TABLET BY ity o f 00:00: MOUTH 3 [place] 00 TIMES Medical DAILY *MAY Branch IMPAIR ALERTNESS* * CLOPIDOGREL 2022-0 Yes [id number] TAKE 1 [facility] 75 mg 5-03 TABLET BY ity of tablet 00:00: MOUTH [place] 00 EVERY DAY Medical Branch LATUDA 40 2022-0 Yes [id number] TAKE 1 U nivers mg tablet 5-03 TABLET BY ity o f 00:00: MOUTH AT [place] 00 BEDTIME Medical Branch METHOCARBAM Yes [id number] TAKE 1 [facility] OL 500 mg 5-03 TABLET BY ity o f tablet 00:00: MOUTH [place] 00 EVERY 6 Medical HOURS Branch NEEDED FOR PAIN (SCALE 4-6). *MAY IMPAIR ALERTNESS* * IBUPROFEN Yes [id number] TAKE 1 U nivers 800 mg 5-03 TABLET BY ity of tablet 00:00: MOUTH [place] 00 EVERY 6 Medical HOURS WITH Branch FOOD NEEDED *DO NOT TAKE ASPRIN* BACLOFEN Yes [id number] TAKE 1 [facility] mg tablet 5-03 TABLET BY ity o f 00:00: MOUTH 3 00 TIMES Medical DAILY *MAY Branch IMPAIR ALERTNESS* * CLOPIDOGREL Yes [id number] TAKE 1 [facility] 75 mg 5-03 TABLET BY ity of tablet 00:00: MOUTH [place] 00 EVERY DAY Medical Branch LATUDA 40 0 Yes [id number] TAKE 1 U nivers mg tablet 5-03 TABLET BY ity o f 00:00: MOUTH AT [place] BEDTIME Medical Branch METHOCARBAM Yes [id number] TAKE 1 [facility] OL 500 mg 5-03 TABLET BY ity o f tablet 00:00: MOUTH [place] 00 EVERY 6 Medical HOURS Branch NEEDED FOR PAIN (SCALE 4-6). *MAY IMPAIR ALERTNESS* * BACLOFEN Yes [id number] TAKE 1 [facility] mg tablet 5-03 TABLET BY ity o f 00:00: MOUTH 3 TIMES Medical DAILY *MAY Branch IMPAIR ALERTNESS* * CLOPIDOGREL Yes [id number] TAKE 1 [facility] 75 mg 5-03 TABLET BY ity of tablet 00:00: MOUTH [place] 00 EVERY DAY Medical Branch LATUDA 40 2022-0 Yes [id number] TAKE 1 U nivers mg tablet 5-03 TABLET BY ity o f 00:00: MOUTH AT [place] 00 BEDTIME Medical Branch METHOCARBAM 0 Yes [id number] TAKE 1 [facility] OL 500 mg 5-03 TABLET BY ity o f tablet 00:00: MOUTH [place] 00 EVERY 6 Medical HOURS Branch NEEDED FOR PAIN (SCALE 4-6). *MAY IMPAIR ALERTNESS* * BACLOFEN Yes [id number] TAKE 1 [facility] mg tablet 5-03 TABLET BY ity o f 00:00: MOUTH 3 TIMES Medical DAILY *MAY Branch IMPAIR ALERTNESS* * CLOPIDOGREL 2022-0 Yes [id number] TAKE 1 [facility] 75 mg 5-03 TABLET BY ity of tablet 00:00: MOUTH [place] EVERY DAY Medical Branch LATUDA 40 2022-0 Yes [id number] TAKE 1 U nivers mg tablet 5-03 TABLET BY ity o f 00:00: MOUTH AT BEDTIME Medical Branch METHOCARBAM 2022-0 Yes [id number] TAKE 1 [facility] OL 500 mg 5-03 TABLET BY ity o f tablet 00:00: MOUTH [place] 00 EVERY 6 Medical HOURS Branch NEEDED FOR PAIN (SCALE 4-6). *MAY IMPAIR ALERTNESS* * BACLOFEN 20 2022-0 Yes [id number] TAKE 1 [facility] mg tablet 5-03 TABLET BY ity o f 00:00: MOUTH 3 TIMES Medical DAILY *MAY Branch IMPAIR ALERTNESS* * CLOPIDOGREL 2022-0 Yes [id number] TAKE 1 [facility] 75 mg 5-03 TABLET BY ity of tablet 00:00: MOUTH EVERY DAY Medical Branch LATUDA 40 2022-0 Yes [id number] TAKE 1 U nivers mg tablet 5-03 TABLET BY ity o f 00:00: MOUTH AT BEDTIME Medical Branch METHOCARBAM 0 Yes [id number] TAKE 1 [facility] OL 500 mg 5-03 TABLET BY ity o f tablet 00:00: MOUTH 00 EVERY 6 Medical HOURS Branch NEEDED FOR PAIN (SCALE 4-6). *MAY IMPAIR ALERTNESS* * BACLOFEN 20 2022-0 Yes [id number] TAKE 1 [facility] mg tablet 5-03 TABLET BY ity o f 00:00: MOUTH 3 TIMES Medical DAILY *MAY Branch IMPAIR ALERTNESS* * CLOPIDOGREL 2022-0 Yes [id number] TAKE 1 [facility] 75 mg 5-03 TABLET BY ity of tablet 00:00: MOUTH EVERY DAY Medical Branch LATUDA 40 2022-0 Yes [id number] TAKE 1 [facility] nivers mg tablet 5-03 TABLET BY ity o f 00:00: MOUTH AT [place] BEDTIME Medical Branch METHOCARBAM 2022-0 Yes [id number] TAKE 1 [facility] OL 500 mg 5-03 TABLET BY ity o f tablet 00:00: MOUTH 00 EVERY 6 Medical HOURS Branch NEEDED FOR PAIN (SCALE 4-6). *MAY IMPAIR ALERTNESS* * BACLOFEN 20 Yes [id number] TAKE 1 [facility] mg tablet 5-03 TABLET BY ity o f 00:00: MOUTH 3 00 TIMES Medical DAILY *MAY Branch IMPAIR ALERTNESS* * CLOPIDOGREL 2022-0 Yes [id number] TAKE 1 [facility] 75 mg 5-03 TABLET BY ity of tablet 00:00: MOUTH [place] 00 EVERY DAY Medical Branch LATUDA 40 2022-0 Yes [id number] TAKE 1 U nivers mg tablet 5-03 TABLET BY ity o f 00:00: MOUTH AT [place] BEDTIME Medical Branch METHOCARBAM 0 Yes [id number] TAKE 1 [facility] OL 500 mg 5-03 TABLET BY ity o f tablet 00:00: MOUTH 00 EVERY 6 Medical HOURS Branch NEEDED FOR PAIN (SCALE 4-6). *MAY IMPAIR ALERTNESS* * BACLOFEN 20 Yes [id number] TAKE 1 [facility] mg tablet 5-03 TABLET BY ity o f 00:00: MOUTH 3 [place] TIMES Medical DAILY *MAY Branch IMPAIR ALERTNESS* * CLOPIDOGREL 2022-0 Yes [id number] TAKE 1 [facility] 75 mg 5-03 TABLET BY ity of tablet 00:00: MOUTH EVERY DAY Medical Branch LATUDA 40 2022-0 Yes [id number] TAKE 1 [facility] nivers mg tablet 5-03 TABLET BY ity o f 00:00: MOUTH AT [place] BEDTIME Medical Branch METHOCARBAM 2022-0 Yes [id number] TAKE 1 [facility] OL 500 mg 5-03 TABLET BY ity o f tablet 00:00: MOUTH [place] EVERY 6 Medical HOURS Branch NEEDED FOR PAIN (SCALE 4-6). *MAY IMPAIR ALERTNESS* * BACLOFEN 20 2022- Yes [id number] TAKE 1 [facility] mg tablet 5-03 TABLET BY ity o f 00:00: MOUTH 3 [place] 00 TIMES Medical DAILY *MAY Branch IMPAIR ALERTNESS* * CLOPIDOGREL 2022-0 Yes [id number] TAKE 1 [facility] 75 mg 5-03 TABLET BY ity of tablet 00:00: MOUTH [place] EVERY DAY Medical Branch LATUDA 40 2022-0 Yes [id number] TAKE 1 U nivers mg tablet 5-03 TABLET BY ity o f 00:00: MOUTH AT [place] 00 BEDTIME Medical Branch CLOPIDOGREL 2022-0 Yes [id number] TAKE 1 [facility] 75 mg 5-03 TABLET BY ity of tablet 00:00: MOUTH [place] 00 EVERY DAY Medical Branch LATUDA 40 2022-0 Yes [id number] TAKE 1 U nivers mg tablet 5-03 TABLET BY ity o f 00:00: MOUTH AT [place] 00 BEDTIME Medical Branch CLOPIDOGREL 2022-0 Yes [id number] TAKE 1 [facility] 75 mg 5-03 TABLET BY ity of tablet 00:00: MOUTH [place] 00 EVERY DAY Medical Branch LATUDA 40 2022-0 Yes [id number] TAKE 1 U nivers mg tablet 5-03 TABLET BY ity o f 00:00: MOUTH AT [place] 00 BEDTIME Medical Branch CLOPIDOGREL 2022-0 2022- No [id number] TAKE 1 [facility] 75 mg 5-05 26-12 TABLET BY ity of tablet 00:00: 00:00 MOUTH [place] 00 :00 EVERY DAY Medical Branch METHOCARBAM 2022- No [id number] TAKE 1 [facility] OL 500 mg 5-05 26-05 TABLET BY ity of tablet 00:00: 00:00 MOUTH [place] 00 :00 EVERY 6 Medical HOURS Branch NEEDED FOR PAIN (SCALE 4-6). *MAY IMPAIR ALERTNESS* * BACLOFEN 20 2022- No [id number] TAKE 1 [facility] mg tablet -05 26-05 TABLET BY ity of 00:00: 00:00 MOUTH 3 [place] 00 :00 TIMES Medical DAILY *MAY Branch IMPAIR ALERTNESS* * IBUPROFEN 2022- No [id number] TAKE 1 [facility] 800 mg 5-05 25-26 TABLET BY ity of tablet 00:00: 00:00 MOUTH [place] 00 :00 EVERY 6 Medical HOURS WITH Branch FOOD NEEDED *DO NOT TAKE ASPRIN* [place] 2022- No [id number] INJECT 72 U nivers SOLOSTAR 5-03 05-24 UNITS ity of U-300 00:00: 00:00 UNDER THE [place] INSULIN 300 00 :00 SKIN ONCE Med ical unit/mL DAILY IN Branch (1.5 mL) THE InPn EVENING (ADJUSTING DOSE BY 2 UNITS DAILY UNTIL FASTING BLOOD SUGAR LESS THAN 200) [place] Yes [id number] INJECT 72 Un reinier SOLOSTAR 4-13 UNITS ity of U-300 00:00: UNDER THE [place] INSULIN 300 00 SKIN ONCE Med ical unit/mL DAILY IN Branch (1.5 mL) THE InPn EVENING (ADJUSTING DOSE BY 2 UNITS DAILY UNTIL FASTING BLOOD SUGAR LESS THAN 200) [place] Yes [id number] INJECT 72 Un reinier SOLOSTAR 4-13 UNITS ity of U-300 00:00: UNDER THE [place] INSULIN 300 00 SKIN ONCE Med ical unit/mL DAILY IN Branch (1.5 mL) THE InPn EVENING (ADJUSTING DOSE BY 2 UNITS DAILY UNTIL FASTING BLOOD SUGAR LESS THAN 200) IBUPROFEN Yes [id number] TAKE 1 U nivers 800 mg 4-13 TABLET BY ity of tablet 00:00: MOUTH [place] 00 EVERY 6 Medical HOURS WITH Branch FOOD NEEDED *DO NOT TAKE ASPRIN* [place] Yes [id number] INJECT 72 Un reinier SOLOSTAR 4-13 UNITS ity of U-300 00:00: UNDER THE [place] INSULIN 300 00 SKIN ONCE Med ical unit/mL DAILY IN Branch (1.5 mL) THE InPn EVENING (ADJUSTING DOSE BY 2 UNITS DAILY UNTIL FASTING BLOOD SUGAR LESS THAN 200) IBUPROFEN Yes [id number] TAKE 1 U nivers 800 mg 4-13 TABLET BY ity of tablet 00:00: MOUTH [place] 00 EVERY 6 Medical HOURS WITH Branch FOOD NEEDED *DO NOT TAKE ASPRIN* [place] Yes [id number] INJECT 72 Un reinier SOLOSTAR 4-13 UNITS ity of U-300 00:00: UNDER THE [place] INSULIN 300 00 SKIN ONCE Med ical unit/mL DAILY IN Branch (1.5 mL) THE InPn EVENING (ADJUSTING DOSE BY 2 UNITS DAILY UNTIL FASTING BLOOD SUGAR LESS THAN 200) IBUPROFEN Yes [id number] TAKE 1 U nivers 800 mg 4-13 TABLET BY ity of tablet 00:00: MOUTH [place] 00 EVERY 6 Medical HOURS WITH Branch FOOD NEEDED *DO NOT TAKE ASPRIN* [place] 2022- No [id number] INJECT 72 U nivers SOLOSTAR 4-13 05-03 UNITS ity of U-300 00:00: 00:00 UNDER THE [place] INSULIN 300 00 :00 SKIN ONCE Med ical unit/mL DAILY IN Branch (1.5 mL) THE InPn EVENING (ADJUSTING DOSE BY 2 UNITS DAILY UNTIL FASTING BLOOD SUGAR LESS THAN 200) IBUPROFEN 2022- No [id number] TAKE 1 [facility] 800 mg 4-13 05-03 TABLET BY ity of tablet 00:00: 00:00 MOUTH [place] 00 :00 EVERY 6 Medical HOURS WITH Branch FOOD NEEDED *DO NOT TAKE ASPRIN* HYDROcodone Yes [id number] TAKE 1 Univ ers -acetaminop 4-10 TABLET BY ity of hen 10-325 00:00: MOUTH [place] mg tablet 00 EVERY 4 Medical HOURS Branch NEEDED FOR PAIN (SCALE 4-6) *MAY MAKE DROWSY* Indication s: chronic pain HYDROcodone Yes 2745 TAKE 1 Univ ers -acetaminop 4-10 TABLET BY ity of hen 10-325 00:00: MOUTH [place] mg tablet 00 EVERY 4 Medical HOURS Branch NEEDED FOR PAIN (SCALE 4-6) *MAY MAKE DROWSY* Indication s: chronic pain HYDROcodone Yes 2745 TAKE 1 Univ ers -acetaminop 4-10 TABLET BY ity of hen 10-325 00:00: MOUTH [place] mg tablet 00 EVERY 4 Medical HOURS Branch NEEDED FOR PAIN (SCALE 4-6) *MAY MAKE DROWSY* Indication s: chronic pain HYDROcodone Yes 2745 TAKE 1 Univ ers -acetaminop 4-10 TABLET BY ity of hen 10-325 00:00: MOUTH [place] mg tablet 00 EVERY 4 Medical HOURS Branch NEEDED FOR PAIN (SCALE 4-6) *MAY MAKE DROWSY* Indication s: chronic pain HYDROcodone Yes 2745 TAKE 1 [facility] ers -acetaminop 4-10 TABLET BY ity of hen 10-325 00:00: MOUTH [place] mg tablet 00 EVERY 4 Medical HOURS Branch NEEDED FOR PAIN (SCALE 4-6) *MAY MAKE DROWSY* Indication s: chronic pain HYDROcodone Yes 2745 TAKE 1 [facility] ers -acetaminop 4-10 TABLET BY ity of hen 10-325 00:00: MOUTH [place] mg tablet 00 EVERY 4 Medical HOURS Branch NEEDED FOR PAIN (SCALE 4-6) *MAY MAKE DROWSY* Indication s: chronic pain HYDROcodone Yes 2745 TAKE 1 [facility] ers -acetaminop 4-10 TABLET BY ity of hen 10-325 00:00: MOUTH [place] mg tablet 00 EVERY 4 Medical HOURS Branch NEEDED FOR PAIN (SCALE 4-6) *MAY MAKE DROWSY* Indication s: chronic pain HYDROcodone Yes 2745 TAKE 1 [facility] ers -acetaminop 4-10 TABLET BY ity of hen 10-325 00:00: MOUTH [place] mg tablet 00 EVERY 4 Medical HOURS Branch NEEDED FOR PAIN (SCALE 4-6) *MAY MAKE DROWSY* Indication s: chronic pain HYDROcodone 2022-0 Yes 2745 TAKE 1 Univ ers -acetaminop 4-10 TABLET BY ity of hen 10-325 00:00: MOUTH [place] mg tablet 00 EVERY 4 Medical HOURS Branch NEEDED FOR PAIN (SCALE 4-6) *MAY MAKE DROWSY* Indication s: chronic pain HYDROcodone 2022-0 2023- No 2745 TAKE 1 Uni vers -acetaminop 4-10 05-04 TABLET BY it y of hen 10-325 00:00: 00:00 MOUTH [place] mg tablet 00 :00 EVERY 4 Medical HOURS Branch NEEDED FOR PAIN (SCALE 4-6) *MAY MAKE DROWSY* Indication s: chronic pain POTASSIUM 2022-0 Yes [id number] TAKE 1 [facility] reinier CHLORIDE 10 4-06 TABLET BY ity of mEq CR 00:00: MOUTH [place] tablet 00 DAILY WITH Medical A GLASS OF Branch WATER POTASSIUM 2022-0 Yes [id number] TAKE 1 Un [facility]ier CHLORIDE 10 4-06 TABLET BY ity of mEq CR 00:00: MOUTH [place] tablet 00 DAILY WITH Medical A GLASS OF Branch WATER POTASSIUM 3-0 Yes [id number] TAKE 1 Un reinier CHLORIDE 10 4-06 TABLET BY ity of mEq CR 00:00: MOUTH [place] tablet 00 DAILY WITH Medical A GLASS OF Branch WATER POTASSIUM 3-0 Yes [id number] TAKE 1 Un reinier CHLORIDE 10 4-06 TABLET BY ity of mEq CR 00:00: MOUTH [place] tablet 00 DAILY WITH Medical A GLASS OF Branch WATER POTASSIUM 3-0 Yes [id number] TAKE 1 [facility]ier CHLORIDE 10 4-06 TABLET BY ity of mEq CR 00:00: MOUTH [place] tablet 00 DAILY WITH Medical A GLASS OF Branch WATER POTASSIUM 3-0 Yes [id number] TAKE 1 [facility] CHLORIDE 10 4-06 TABLET BY ity of mEq CR 00:00: MOUTH [place] tablet 00 DAILY WITH Medical A GLASS OF Branch WATER POTASSIUM 3-0 Yes [id number] TAKE 1 [facility] CHLORIDE 10 4-06 TABLET BY ity of mEq CR 00:00: MOUTH [place] tablet 00 DAILY WITH Medical A GLASS OF Branch WATER POTASSIUM 3-0 Yes [id number] TAKE 1 [facility] CHLORIDE 10 4-06 TABLET BY ity of mEq CR 00:00: MOUTH [place] tablet 00 DAILY WITH Medical A GLASS OF Branch WATER POTASSIUM 2023-0 Yes [id number] TAKE 1 [facility] CHLORIDE 10 4-06 TABLET BY ity of mEq CR 00:00: MOUTH [place] tablet 00 DAILY WITH Medical A GLASS OF Branch WATER POTASSIUM 2023-0 Yes [id number] TAKE 1 [facility] CHLORIDE 10 4-06 TABLET BY ity of mEq CR 00:00: MOUTH [place] tablet 00 DAILY WITH Medical A GLASS OF Branch WATER POTASSIUM 2023-0 Yes [id number] TAKE 1 [facility] CHLORIDE 10 4-06 TABLET BY ity of mEq CR 00:00: MOUTH [place] tablet 00 DAILY WITH Medical A GLASS OF Branch WATER POTASSIUM 3-0 Yes [id number] TAKE 1 Un [facility] CHLORIDE 10 4-06 TABLET BY ity of mEq CR 00:00: MOUTH [place] tablet 00 DAILY WITH Medical A GLASS OF Branch WATER POTASSIUM 2023-0 Yes [id number] TAKE 1 [facility] CHLORIDE 10 4-06 TABLET BY ity of mEq CR 00:00: MOUTH [place] tablet 00 DAILY WITH Medical A GLASS OF Branch WATER POTASSIUM 3-0 Yes [id number] TAKE 1 [facility] CHLORIDE 10 4-06 TABLET BY ity of mEq CR 00:00: MOUTH [place] tablet 00 DAILY WITH Medical A GLASS OF Branch WATER POTASSIUM 3-0 Yes [id number] TAKE 1 [facility] CHLORIDE 10 4-06 TABLET BY ity of mEq CR 00:00: MOUTH [place] tablet 00 DAILY WITH Medical A GLASS OF Branch WATER POTASSIUM 2023-0 Yes [id number] TAKE 1 [facility] CHLORIDE 10 4-06 TABLET BY ity of mEq CR 00:00: MOUTH [place] tablet 00 DAILY WITH Medical A GLASS OF Branch WATER POTASSIUM 2023-0 Yes [id number] TAKE 1 [facility] CHLORIDE 10 4-06 TABLET BY ity of mEq CR 00:00: MOUTH [place] tablet 00 DAILY WITH Medical A GLASS OF Branch WATER POTASSIUM 2023-0 Yes [id number] TAKE 1 [facility] CHLORIDE 10 4-06 TABLET BY ity of mEq CR 00:00: MOUTH [place] tablet 00 DAILY WITH Medical A GLASS OF Branch WATER POTASSIUM 2023-0 2023- No [id number] TAKE 1 U nivers CHLORIDE 10 4-06 05-11 TABLET BY it y of mEq CR 00:00: 00:00 MOUTH [place] tablet 00 :00 DAILY WITH Medical A GLASS OF Branch WATER LIDOCAINE 2023-0 Yes [id number] APPLY Un reinier VISCOUS 2 % 4-05 TOPICALLY ity of solution 00:00: TO [place] 00 AFFECTED Medical AREA(S) 3 Branch TIMES DAILY DICLOFENAC 2022-0 Yes [id number] APPLY 4 [facility] SODIUM 1 % 4-05 TIMES ity of gel 00:00: DAILY [place] 00 NEEDED FOR Medical PAIN Branch (SCALE 4-6). LIDOCAINE Yes [id number] APPLY Un reinier VISCOUS 2 % 4-05 TOPICALLY ity of solution 00:00: TO [place] 00 AFFECTED Medical AREA(S) 3 Branch TIMES DAILY DICLOFENAC Yes [id number] APPLY 4 [facility] SODIUM 1 % 4-05 TIMES ity of gel 00:00: DAILY [place] 00 NEEDED FOR Medical PAIN Branch (SCALE 4-6). ONETOUCH Yes [id number] USE 3 Uni vers VERIO TEST 4-05 TIMES ity of STRIPS 00:00: DAILY FOR [place] strip 00 BLOOD Medical GLUCOSE Branch MONITORING CLOPIDOGREL Yes [id number] TAKE 1 [facility] 75 mg 4-05 TABLET BY ity of tablet 00:00: MOUTH [place] 00 EVERY DAY Medical Branch METFORMIN 0 Yes [id number] TAKE 2 Un reinier ER 500 mg 4-05 TABLETS BY ity of 24 hr 00:00: MOUTH 2 [place] tablet 00 TIMES Medical DAILY WITH Branch FOOD HYDROXYZINE Yes [id number] TAKE 1 [facility] 50 mg 4-05 TABLET BY ity of tablet 00:00: MOUTH 3 [place] 00 TIMES Medical DAILY Branch NEEDED FOR ITCHING OR ANXIETY. *MAY IMPAIR ALERTNESS* * LEVETIRACET Yes [id number] TAKE 1 [facility] AM 1,000 mg 4-05 TABLET BY ity of tablet 00:00: MOUTH 2 [place] 00 TIMES Medical DAILY Branch SULFAMETHOX 2022-0 Yes [id number] TAKE 1 [facility] AZOLE-TRIME 4-05 TABLET BY ity of THOPRIM 00:00: MOUTH 2 [place] 800-160 mg 00 TIMES Medical per tablet DAILY WITH Bra nch A GLASS OF WATER Insulin Yes [id number] USE [facility] vers [place], 4-05 DIRECTED ity of Disposable, 00:00: [place] (SURE 00 Medical COMFORT PEN Branch NEEDLE) 32 gauge x 5/32" Ndle LIDOCAINE Yes [id number] APPLY [facility] VISCOUS 2 % 4-05 TOPICALLY ity of solution 00:00: TO [place] 00 AFFECTED Medical AREA(S) 3 Branch TIMES DAILY DICLOFENAC Yes [id number] APPLY 4 [facility] SODIUM 1 % 4-05 TIMES ity of gel 00:00: DAILY [place] 00 NEEDED FOR Medical PAIN Branch (SCALE 4-6). ONETOUCH Yes [id number] USE 3 [facility] vers VERIO TEST 4-05 TIMES ity of STRIPS 00:00: DAILY FOR [place] strip 00 BLOOD Medical GLUCOSE Branch MONITORING CLOPIDOGREL Yes [id number] TAKE 1 [facility] 75 mg 4-05 TABLET BY ity of tablet 00:00: MOUTH [place] 00 EVERY DAY Medical Branch METFORMIN Yes [id number] TAKE 2 [facility] ER 500 mg 4-05 TABLETS BY ity of 24 hr 00:00: MOUTH 2 [place] tablet 00 TIMES Medical DAILY WITH Branch FOOD HYDROXYZINE Yes [id number] TAKE 1 [facility] 50 mg 4-05 TABLET BY ity of tablet 00:00: MOUTH 3 [place] 00 TIMES Medical DAILY Branch NEEDED FOR ITCHING OR ANXIETY. *MAY IMPAIR ALERTNESS* * LEVETIRACET Yes [id number] TAKE 1 [facility] AM 1,000 mg 4-05 TABLET BY ity of tablet 00:00: MOUTH 2 [place] 00 TIMES Medical DAILY Branch SULFAMETHOX Yes [id number] TAKE 1 [facility] AZOLE-TRIME 4-05 TABLET BY ity of THOPRIM 00:00: MOUTH 2 [place] 800-160 mg 00 TIMES Medical per tablet DAILY WITH Bra nch A GLASS OF WATER Insulin Yes [id number] USE [facility] [place], 4-05 DIRECTED ity of Disposable, 00:00: [place] (SURE 00 Medical COMFORT PEN Branch NEEDLE) 32 gauge x 5/32" Ndle LIDOCAINE Yes [id number] APPLY [facility] VISCOUS 2 % 4-05 TOPICALLY ity of solution 00:00: TO [place] 00 AFFECTED Medical AREA(S) 3 Branch TIMES DAILY DICLOFENAC Yes [id number] APPLY 4 [facility] SODIUM 1 % 4-05 TIMES ity of gel 00:00: DAILY [place] 00 NEEDED FOR Medical PAIN Branch (SCALE 4-6). ONETOUCH Yes [id number] USE 3 [facility] VERIO TEST 4-05 TIMES ity of STRIPS 00:00: DAILY FOR [place] strip 00 BLOOD Medical GLUCOSE Branch MONITORING CLOPIDOGREL 2022-0 Yes [id number] TAKE 1 [facility] 75 mg 4-05 TABLET BY ity of tablet 00:00: MOUTH [place] 00 EVERY DAY Medical Branch METFORMIN 2022-0 Yes [id number] TAKE 2 [facility] ER 500 mg 4-05 TABLETS BY ity of 24 hr 00:00: MOUTH 2 [place] tablet 00 TIMES Medical DAILY WITH Branch FOOD HYDROXYZINE 2022-0 Yes [id number] TAKE 1 [facility] 50 mg 4-05 TABLET BY ity of tablet 00:00: MOUTH 3 [place] 00 TIMES Medical DAILY Branch NEEDED FOR ITCHING OR ANXIETY. *MAY IMPAIR ALERTNESS* * LEVETIRACET 2022-0 Yes [id number] TAKE 1 [facility] AM 1,000 mg 4-05 TABLET BY ity of tablet 00:00: MOUTH 2 [place] 00 TIMES Medical DAILY Branch SULFAMETHOX 2022-0 Yes [id number] TAKE 1 [facility] AZOLE-TRIME 4-05 TABLET BY ity of THOPRIM 00:00: MOUTH 2 [place] 800-160 mg 00 TIMES Medical per tablet DAILY WITH Bra nch A GLASS OF WATER Insulin 2022-0 Yes [id number] USE [facility] [place], 4-05 DIRECTED ity of Disposable, 00:00: [place] ([facility] [place] 00 Medical COMFORT PEN Branch NEEDLE) 32 gauge x 5/32" Ndle LIDOCAINE 2022-0 Yes [id number] APPLY [facility] VISCOUS 2 % 4-05 TOPICALLY ity of solution 00:00: TO [place] 00 AFFECTED Medical AREA(S) 3 Branch TIMES DAILY DICLOFENAC 2022-0 Yes [id number] APPLY 4 [facility] SODIUM 1 % 4-05 TIMES ity of gel 00:00: DAILY [place] 00 NEEDED FOR Medical PAIN Branch (SCALE 4-6). ONETOUCH 2022-0 Yes [id number] USE 3 [facility] VERIO TEST 4-05 TIMES ity of STRIPS 00:00: DAILY FOR [place] strip 00 BLOOD Medical GLUCOSE Branch MONITORING CLOPIDOGREL 2022-0 Yes [id number] TAKE 1 [facility] 75 mg 4-05 TABLET BY ity of tablet 00:00: MOUTH [place] 00 EVERY DAY Medical Branch METFORMIN 2022-0 Yes [id number] TAKE 2 [facility] ER 500 mg 4-05 TABLETS BY ity of 24 hr 00:00: MOUTH 2 [place] tablet 00 TIMES Medical DAILY WITH Branch FOOD HYDROXYZINE 2023-0 Yes [id number] TAKE 1 [facility] 50 mg 4-05 TABLET BY ity of tablet 00:00: MOUTH 3 [place] 00 TIMES Medical DAILY Branch NEEDED FOR ITCHING OR ANXIETY. *MAY IMPAIR ALERTNESS* * LEVETIRACET Yes [id number] TAKE 1 [facility] AM 1,000 mg 4-05 TABLET BY ity of tablet 00:00: MOUTH 2 [place] 00 TIMES Medical DAILY Branch SULFAMETHOX 2022-0 Yes [id number] TAKE 1 [facility] AZOLE-TRIME 4-05 TABLET BY ity of THOPRIM 00:00: MOUTH 2 [place] 800-160 mg 00 TIMES Medical per tablet DAILY WITH Bra nch A GLASS OF WATER Insulin Yes [id number] USE [facility] [place], 4-05 DIRECTED ity of Disposable, 00:00: [place] (SURE 00 Medical COMFORT PEN Branch NEEDLE) 32 gauge x 5/32" Ndle LIDOCAINE Yes [id number] APPLY [facility] VISCOUS 2 % 4-05 TOPICALLY ity of solution 00:00: TO [place] 00 AFFECTED Medical AREA(S) 3 Branch TIMES DAILY DICLOFENAC 2022-0 Yes [id number] APPLY 4 [facility] SODIUM 1 % 4-05 TIMES ity of gel 00:00: DAILY [place] 00 NEEDED FOR Medical PAIN Branch (SCALE 4-6). ONETOUCH Yes [id number] USE 3 [facility] VERIO TEST 4-05 TIMES ity of STRIPS 00:00: DAILY FOR [place] strip 00 BLOOD Medical GLUCOSE Branch MONITORING CLOPIDOGREL 0 Yes [id number] TAKE 1 [facility] 75 mg 4-05 TABLET BY ity of tablet 00:00: MOUTH [place] 00 EVERY DAY Medical Branch METFORMIN 2022-0 Yes [id number] TAKE 2 [facility] ER 500 mg 4-05 TABLETS BY ity of 24 hr 00:00: MOUTH 2 [place] tablet 00 TIMES Medical DAILY WITH Branch FOOD HYDROXYZINE Yes [id number] TAKE 1 [facility] 50 mg 4-05 TABLET BY ity of tablet 00:00: MOUTH 3 [place] 00 TIMES Medical DAILY Branch NEEDED FOR ITCHING OR ANXIETY. *MAY IMPAIR ALERTNESS* * LEVETIRACET Yes [id number] TAKE 1 [facility] AM 1,000 mg 4-05 TABLET BY ity of tablet 00:00: MOUTH 2 [place] 00 TIMES Medical DAILY Branch SULFAMETHOX 2023-0 Yes [id number] TAKE 1 [facility] AZOLE-TRIME 4-05 TABLET BY ity of THOPRIM 00:00: MOUTH 2 [place] 800-160 mg 00 TIMES Medical per tablet DAILY WITH Bra nch A GLASS OF WATER Insulin Yes [id number] USE [facility] [place], 4-05 DIRECTED ity of Disposable, 00:00: [place] (SURE 00 Medical COMFORT PEN Branch NEEDLE) 32 gauge x 5/32" Ndle LIDOCAINE Yes [id number] APPLY [facility] VISCOUS 2 % 4-05 TOPICALLY ity of solution 00:00: TO [place] 00 AFFECTED Medical AREA(S) 3 Branch TIMES DAILY DICLOFENAC Yes [id number] APPLY 4 [facility] SODIUM 1 % 4-05 TIMES ity of gel 00:00: DAILY [place] 00 NEEDED FOR Medical PAIN Branch (SCALE 4-6). ONETOUCH Yes [id number] USE 3 [facility] VERIO TEST 4-05 TIMES ity of STRIPS 00:00: DAILY FOR [place] strip 00 BLOOD Medical GLUCOSE Branch MONITORING CLOPIDOGREL Yes [id number] TAKE 1 [facility] 75 mg 4-05 TABLET BY ity of tablet 00:00: MOUTH [place] 00 EVERY DAY Medical Branch METFORMIN 0 Yes [id number] TAKE 2 [facility] ER 500 mg 4-05 TABLETS BY ity of 24 hr 00:00: MOUTH 2 [place] tablet 00 TIMES Medical DAILY WITH Branch FOOD HYDROXYZINE 0 Yes [id number] TAKE 1 [facility] 50 mg 4-05 TABLET BY ity of tablet 00:00: MOUTH 3 [place] 00 TIMES Medical DAILY Branch NEEDED FOR ITCHING OR ANXIETY. *MAY IMPAIR ALERTNESS* * LEVETIRACET Yes [id number] TAKE 1 [facility] AM 1,000 mg 4-05 TABLET BY ity of tablet 00:00: MOUTH 2 [place] 00 TIMES Medical DAILY Branch SULFAMETHOX 0 Yes [id number] TAKE 1 [facility] AZOLE-TRIME 4-05 TABLET BY ity of THOPRIM 00:00: MOUTH 2 [place] 800-160 mg 00 TIMES Medical per tablet DAILY WITH Bra nch A GLASS OF WATER Insulin Yes [id number] USE [facility] [place], 4-05 DIRECTED ity of Disposable, 00:00: [place] (SURE 00 Medical COMFORT PEN Branch NEEDLE) 32 gauge x 5/32" Ndle LIDOCAINE Yes [id number] APPLY [facility] VISCOUS 2 % 4-05 TOPICALLY ity of solution 00:00: TO [place] 00 AFFECTED Medical AREA(S) 3 Branch TIMES DAILY DICLOFENAC Yes [id number] APPLY 4 [facility] SODIUM 1 % 4-05 TIMES ity of gel 00:00: DAILY [place] 00 NEEDED FOR Medical PAIN Branch (SCALE 4-6). ONETOUCH Yes [id number] USE 3 [facility] VERIO TEST 4-05 TIMES ity of STRIPS 00:00: DAILY FOR [place] strip 00 BLOOD Medical GLUCOSE Branch MONITORING CLOPIDOGREL Yes [id number] TAKE 1 [facility] 75 mg 4-05 TABLET BY ity of tablet 00:00: MOUTH [place] 00 EVERY DAY Medical Branch METFORMIN Yes [id number] TAKE 2 [facility] ER 500 mg 4-05 TABLETS BY ity of 24 hr 00:00: MOUTH 2 [place] tablet 00 TIMES Medical DAILY WITH Branch FOOD HYDROXYZINE Yes [id number] TAKE 1 [facility] 50 mg 4-05 TABLET BY ity of tablet 00:00: MOUTH 3 [place] 00 TIMES Medical DAILY Branch NEEDED FOR ITCHING OR ANXIETY. *MAY IMPAIR ALERTNESS* * LEVETIRACET Yes [id number] TAKE 1 [facility] AM 1,000 mg 4-05 TABLET BY ity of tablet 00:00: MOUTH 2 [place] 00 TIMES Medical DAILY Branch SULFAMETHOX Yes [id number] TAKE 1 [facility] AZOLE-TRIME 4-05 TABLET BY ity of THOPRIM 00:00: MOUTH 2 [place] 800-160 mg 00 TIMES Medical per tablet DAILY WITH Bra pah A GLASS OF WATER Insulin Yes [id number] USE [facility] [place], 4-05 DIRECTED ity of Disposable, 00:00: [place] (SURE 00 Medical COMFORT PEN Branch NEEDLE) 32 gauge x 5/32" Ndle LIDOCAINE Yes [id number] APPLY [facility] VISCOUS 2 % 4-05 TOPICALLY ity of solution 00:00: TO [place] 00 AFFECTED Medical AREA(S) 3 Branch TIMES DAILY DICLOFENAC Yes [id number] APPLY 4 [facility] SODIUM 1 % 4-05 TIMES ity of gel 00:00: DAILY [place] 00 NEEDED FOR Medical PAIN Branch (SCALE 4-6). ONETOUCH Yes [id number] USE 3 [facility] VERIO TEST 4-05 TIMES ity of STRIPS 00:00: DAILY FOR [place] strip 00 BLOOD Medical GLUCOSE Branch MONITORING CLOPIDOGREL 2022-0 Yes [id number] TAKE 1 [facility] 75 mg 4-05 TABLET BY ity of tablet 00:00: MOUTH [place] 00 EVERY DAY Medical Branch METFORMIN 2022-0 Yes [id number] TAKE 2 [facility] ER 500 mg 4-05 TABLETS BY ity of 24 hr 00:00: MOUTH 2 [place] tablet 00 TIMES Medical DAILY WITH Branch FOOD HYDROXYZINE 2022- Yes [id number] TAKE 1 [facility] 50 mg 4-05 TABLET BY ity of tablet 00:00: MOUTH 3 [place] 00 TIMES Medical DAILY Branch NEEDED FOR ITCHING OR ANXIETY. *MAY IMPAIR ALERTNESS* * LEVETIRACET 2022-0 Yes [id number] TAKE 1 [facility] AM 1,000 mg 4-05 TABLET BY ity of tablet 00:00: MOUTH 2 [place] 00 TIMES Medical DAILY Branch SULFAMETHOX 2022-0 Yes [id number] TAKE 1 [facility] AZOLE-TRIME 4-05 TABLET BY ity of THOPRIM 00:00: MOUTH 2 [place] 800-160 mg 00 TIMES Medical per tablet DAILY WITH Bra nch A GLASS OF WATER Insulin 2022- Yes [id number] USE [facility] [place], 4-05 DIRECTED ity of Disposable, 00:00: [place] ([facility] [place] 00 Medical COMFORT PEN Branch NEEDLE) 32 gauge x 5/32" Ndle LIDOCAINE 2022-0 Yes [id number] APPLY [facility] VISCOUS 2 % 4-05 TOPICALLY ity of solution 00:00: TO [place] 00 AFFECTED Medical AREA(S) 3 Branch TIMES DAILY DICLOFENAC 2022-0 Yes [id number] APPLY 4 [facility] SODIUM 1 % 4-05 TIMES ity of gel 00:00: DAILY [place] 00 NEEDED FOR Medical PAIN Branch (SCALE 4-6). ONETOUCH 2022- Yes [id number] USE 3 [facility] VERIO TEST 4-05 TIMES ity of STRIPS 00:00: DAILY FOR [place] strip 00 BLOOD Medical GLUCOSE Branch MONITORING METFORMIN 2022-0 Yes [id number] TAKE 2 [facility] ER 500 mg 4-05 TABLETS BY ity of 24 hr 00:00: MOUTH 2 [place] tablet 00 TIMES Medical DAILY WITH Branch FOOD HYDROXYZINE 2022-0 Yes [id number] TAKE 1 [facility] 50 mg 4-05 TABLET BY ity of tablet 00:00: MOUTH 3 [place] 00 TIMES Medical DAILY Branch NEEDED FOR ITCHING OR ANXIETY. *MAY IMPAIR ALERTNESS* * LEVETIRACET Yes [id number] TAKE 1 [facility] AM 1,000 mg 4-05 TABLET BY ity of tablet 00:00: MOUTH 2 [place] 00 TIMES Medical DAILY Branch SULFAMETHOX 0 Yes [id number] TAKE 1 [facility] AZOLE-TRIME 4-05 TABLET BY ity of THOPRIM 00:00: MOUTH 2 [place] 800-160 mg 00 TIMES Medical per tablet DAILY WITH Bra nch A GLASS OF WATER Insulin Yes [id number] USE [facility] [place], 4-05 DIRECTED ity of Disposable, 00:00: [place] (SURE 00 Medical COMFORT PEN Branch NEEDLE) 32 gauge x 5/32" Ndle LIDOCAINE Yes [id number] APPLY [facility] VISCOUS 2 % 4-05 TOPICALLY ity of solution 00:00: TO [place] 00 AFFECTED Medical AREA(S) 3 Branch TIMES DAILY DICLOFENAC Yes [id number] APPLY 4 [facility] SODIUM 1 % 4-05 TIMES ity of gel 00:00: DAILY [place] 00 NEEDED FOR Medical PAIN Branch (SCALE 4-6). ONETOUCH Yes [id number] USE 3 [facility] VERIO TEST 4-05 TIMES ity of STRIPS 00:00: DAILY FOR [place] strip 00 BLOOD Medical GLUCOSE Branch MONITORING HYDROXYZINE Yes [id number] TAKE 1 [facility] 50 mg 4-05 TABLET BY ity of tablet 00:00: MOUTH 3 [place] 00 TIMES Medical DAILY Branch NEEDED FOR ITCHING OR ANXIETY. *MAY IMPAIR ALERTNESS* * LEVETIRACET Yes [id number] TAKE 1 [facility] AM 1,000 mg 4-05 TABLET BY ity of tablet 00:00: MOUTH 2 [place] 00 TIMES Medical DAILY Branch SULFAMETHOX 0 Yes [id number] TAKE 1 [facility] AZOLE-TRIME 4-05 TABLET BY ity of THOPRIM 00:00: MOUTH 2 [place] 800-160 mg 00 TIMES Medical per tablet DAILY WITH Bra nch A GLASS OF WATER Insulin Yes [id number] USE [facility] [place], 4-05 DIRECTED ity of Disposable, 00:00: [place] (SURE 00 Medical COMFORT PEN Branch NEEDLE) 32 gauge x 5/32" Ndle LIDOCAINE Yes [id number] APPLY [facility] VISCOUS 2 % 4-05 TOPICALLY ity of solution 00:00: TO [place] 00 AFFECTED Medical AREA(S) 3 Branch TIMES DAILY DICLOFENAC 2022- Yes [id number] APPLY 4 [facility] SODIUM 1 % 4-05 TIMES ity of gel 00:00: DAILY [place] 00 NEEDED FOR Medical PAIN Branch (SCALE 4-6). ONETOUCH Yes [id number] USE 3 [facility] VERIO TEST 4-05 TIMES ity of STRIPS 00:00: DAILY FOR [place] strip 00 BLOOD Medical GLUCOSE Branch MONITORING HYDROXYZINE Yes [id number] TAKE 1 [facility] 50 mg 4-05 TABLET BY ity of tablet 00:00: MOUTH 3 [place] 00 TIMES Medical DAILY Branch NEEDED FOR ITCHING OR ANXIETY. *MAY IMPAIR ALERTNESS* * LEVETIRACET Yes [id number] TAKE 1 [facility] AM 1,000 mg 4-05 TABLET BY ity of tablet 00:00: MOUTH 2 [place] 00 TIMES Medical DAILY Branch SULFAMETHOX 0 Yes [id number] TAKE 1 [facility] AZOLE-TRIME 4-05 TABLET BY ity of THOPRIM 00:00: MOUTH 2 [place] 800-160 mg 00 TIMES Medical per tablet DAILY WITH Bra nch A GLASS OF WATER Insulin Yes [id number] USE [facility] [place], 4-05 DIRECTED ity of Disposable, 00:00: [place] (SURE 00 Medical COMFORT PEN Branch NEEDLE) 32 gauge x 5/32" Ndle LIDOCAINE Yes [id number] APPLY [facility] VISCOUS 2 % 4-05 TOPICALLY ity of solution 00:00: TO [place] 00 AFFECTED Medical AREA(S) 3 Branch TIMES DAILY DICLOFENAC Yes [id number] APPLY 4 [facility] SODIUM 1 % 4-05 TIMES ity of gel 00:00: DAILY [place] 00 NEEDED FOR Medical PAIN Branch (SCALE 4-6). ONETOUCH Yes [id number] USE 3 [facility] VERIO TEST 4-05 TIMES ity of STRIPS 00:00: DAILY FOR [place] strip 00 BLOOD Medical GLUCOSE Branch MONITORING HYDROXYZINE Yes [id number] TAKE 1 [facility] 50 mg 4-05 TABLET BY ity of tablet 00:00: MOUTH 3 [place] 00 TIMES Medical DAILY Branch NEEDED FOR ITCHING OR ANXIETY. *MAY IMPAIR ALERTNESS* * LEVETIRACET Yes [id number] TAKE 1 [facility] AM 1,000 mg 4-05 TABLET BY ity of tablet 00:00: MOUTH 2 [place] 00 TIMES Medical DAILY Branch SULFAMETHOX 0 Yes [id number] TAKE 1 [facility] AZOLE-TRIME 4-05 TABLET BY ity of THOPRIM 00:00: MOUTH 2 [place] 800-160 mg 00 TIMES Medical per tablet DAILY WITH Bra nch A GLASS OF WATER Insulin Yes [id number] USE [facility] [place], 4-05 DIRECTED ity of Disposable, 00:00: [place] (SURE 00 Medical COMFORT PEN Branch NEEDLE) 32 gauge x 5/32" Ndle LIDOCAINE Yes [id number] APPLY [facility] VISCOUS 2 % 4-05 TOPICALLY ity of solution 00:00: TO 00 AFFECTED Medical AREA(S) 3 Branch TIMES DAILY DICLOFENAC Yes [id number] APPLY 4 [facility] SODIUM 1 % 4-05 TIMES ity of gel 00:00: DAILY [place] 00 NEEDED FOR Medical PAIN Branch (SCALE 4-6). ONETOUCH Yes [id number] USE 3 [facility] VERIO TEST 4-05 TIMES ity of STRIPS 00:00: DAILY FOR [place] strip 00 BLOOD Medical GLUCOSE Branch MONITORING HYDROXYZINE Yes [id number] TAKE 1 [facility] 50 mg 4-05 TABLET BY ity of tablet 00:00: MOUTH 3 [place] 00 TIMES Medical DAILY Branch NEEDED FOR ITCHING OR ANXIETY. *MAY IMPAIR ALERTNESS* * LEVETIRACET Yes [id number] TAKE 1 [facility] AM 1,000 mg 4-05 TABLET BY ity of tablet 00:00: MOUTH 2 [place] 00 TIMES Medical DAILY Branch SULFAMETHOX 2022-0 Yes [id number] TAKE 1 [facility] AZOLE-TRIME 4-05 TABLET BY ity of THOPRIM 00:00: MOUTH 2 [place] 800-160 mg 00 TIMES Medical per tablet DAILY WITH Bra nch A GLASS OF WATER Insulin Yes [id number] USE [facility] [place], 4-05 DIRECTED ity of Disposable, 00:00: [place] (SURE 00 Medical COMFORT PEN Branch NEEDLE) 32 gauge x 5/32" Ndle LIDOCAINE 2022-0 Yes [id number] APPLY [facility] VISCOUS 2 % 4-05 TOPICALLY ity of solution 00:00: TO [place] 00 AFFECTED Medical AREA(S) 3 Branch TIMES DAILY DICLOFENAC Yes [id number] APPLY 4 [facility] SODIUM 1 % 4-05 TIMES ity of gel 00:00: DAILY [place] 00 NEEDED FOR Medical PAIN Branch (SCALE 4-6). ONETOUCH Yes [id number] USE 3 [facility] VERIO TEST 4-05 TIMES ity of STRIPS 00:00: DAILY FOR [place] strip 00 BLOOD Medical GLUCOSE Branch MONITORING HYDROXYZINE Yes [id number] TAKE 1 [facility] 50 mg 4-05 TABLET BY ity of tablet 00:00: MOUTH 3 [place] 00 TIMES Medical DAILY Branch NEEDED FOR ITCHING OR ANXIETY. *MAY IMPAIR ALERTNESS* * LEVETIRACET Yes [id number] TAKE 1 [facility] AM 1,000 mg 4-05 TABLET BY ity of tablet 00:00: MOUTH 2 [place] 00 TIMES Medical DAILY Branch SULFAMETHOX Yes [id number] TAKE 1 [facility] AZOLE-TRIME 4-05 TABLET BY ity of THOPRIM 00:00: MOUTH 2 [place] 800-160 mg 00 TIMES Medical per tablet DAILY WITH Bra nch A GLASS OF WATER Insulin Yes [id number] USE [facility] [place], 4-05 DIRECTED ity of Disposable, 00:00: [place] (SURE 00 Medical COMFORT PEN Branch NEEDLE) 32 gauge x 5/32" Ndle LIDOCAINE Yes [id number] APPLY [facility] VISCOUS 2 % 4-05 TOPICALLY ity of solution 00:00: TO [place] 00 AFFECTED Medical AREA(S) 3 Branch TIMES DAILY DICLOFENAC Yes [id number] APPLY 4 [facility] SODIUM 1 % 4-05 TIMES ity of gel 00:00: DAILY [place] 00 NEEDED FOR Medical PAIN Branch (SCALE 4-6). ONETOUCH Yes [id number] USE 3 [facility] VERIO TEST 4-05 TIMES ity of STRIPS 00:00: DAILY FOR [place] strip 00 BLOOD Medical GLUCOSE Branch MONITORING HYDROXYZINE Yes [id number] TAKE 1 [facility] 50 mg 4-05 TABLET BY ity of tablet 00:00: MOUTH 3 [place] 00 TIMES Medical DAILY Branch NEEDED FOR ITCHING OR ANXIETY. *MAY IMPAIR ALERTNESS* * LEVETIRACET Yes [id number] TAKE 1 [facility] AM 1,000 mg 4-05 TABLET BY ity of tablet 00:00: MOUTH 2 [place] 00 TIMES Medical DAILY Branch SULFAMETHOX 2022-0 Yes [id number] TAKE 1 [facility] AZOLE-TRIME 4-05 TABLET BY ity of THOPRIM 00:00: MOUTH 2 [place] 800-160 mg 00 TIMES Medical per tablet DAILY WITH Bra nch A GLASS OF WATER Insulin 2022-0 Yes [id number] USE [facility] [place], 4-05 DIRECTED ity of Disposable, 00:00: [place] (SURE 00 Medical COMFORT PEN Branch NEEDLE) 32 gauge x 5/32" Ndle LIDOCAINE 2022-0 Yes [id number] APPLY [facility] VISCOUS 2 % 4-05 TOPICALLY ity of solution 00:00: TO 00 AFFECTED Medical AREA(S) 3 Branch TIMES DAILY DICLOFENAC 2022-0 Yes [id number] APPLY 4 [facility] SODIUM 1 % 4-05 TIMES ity of gel 00:00: DAILY [place] 00 NEEDED FOR Medical PAIN Branch (SCALE 4-6). ONETOUCH Yes [id number] USE 3 [facility] VERIO TEST 4-05 TIMES ity of STRIPS 00:00: DAILY FOR [place] strip 00 BLOOD Medical GLUCOSE Branch MONITORING HYDROXYZINE Yes [id number] TAKE 1 [facility] 50 mg 4-05 TABLET BY ity of tablet 00:00: MOUTH 3 [place] 00 TIMES Medical DAILY Branch NEEDED FOR ITCHING OR ANXIETY. *MAY IMPAIR ALERTNESS* * LEVETIRACET 0 Yes [id number] TAKE 1 [facility] AM 1,000 mg 4-05 TABLET BY ity of tablet 00:00: MOUTH 2 [place] 00 TIMES Medical DAILY Branch SULFAMETHOX 2022-0 Yes [id number] TAKE 1 [facility] AZOLE-TRIME 4-05 TABLET BY ity of THOPRIM 00:00: MOUTH 2 [place] 800-160 mg 00 TIMES Medical per tablet DAILY WITH Bra nch A GLASS OF WATER Insulin 2022-0 Yes [id number] USE [facility] [place], 4-05 DIRECTED ity of Disposable, 00:00: [place] (SURE 00 Medical COMFORT PEN Branch NEEDLE) 32 gauge x 5/32" Ndle LIDOCAINE 2022-0 Yes [id number] APPLY [facility] VISCOUS 2 % 4-05 TOPICALLY ity of solution 00:00: TO [place] 00 AFFECTED Medical AREA(S) 3 Branch TIMES DAILY DICLOFENAC 2022-0 Yes [id number] APPLY 4 [facility] SODIUM 1 % 4-05 TIMES ity of gel 00:00: DAILY [place] 00 NEEDED FOR Medical PAIN Branch (SCALE 4-6). ONETOUCH Yes [id number] USE 3 [facility] VERIO TEST 4-05 TIMES ity of STRIPS 00:00: DAILY FOR [place] strip 00 BLOOD Medical GLUCOSE Branch MONITORING HYDROXYZINE Yes [id number] TAKE 1 [facility] 50 mg 4-05 TABLET BY ity of tablet 00:00: MOUTH 3 [place] 00 TIMES Medical DAILY Branch NEEDED FOR ITCHING OR ANXIETY. *MAY IMPAIR ALERTNESS* * LEVETIRACET Yes [id number] TAKE 1 [facility] AM 1,000 mg 4-05 TABLET BY ity of tablet 00:00: MOUTH 2 [place] 00 TIMES Medical DAILY Branch SULFAMETHOX Yes [id number] TAKE 1 [facility] AZOLE-TRIME 4-05 TABLET BY ity of THOPRIM 00:00: MOUTH 2 [place] 800-160 mg 00 TIMES Medical per tablet DAILY WITH Bra nch A GLASS OF WATER Insulin Yes [id number] USE [facility] [place], 4-05 DIRECTED ity of Disposable, 00:00: [place] (SURE 00 Medical COMFORT PEN Branch NEEDLE) 32 gauge x 5/32" Ndle LIDOCAINE Yes [id number] APPLY [facility] VISCOUS 2 % 4-05 TOPICALLY ity of solution 00:00: TO [place] 00 AFFECTED Medical AREA(S) 3 Branch TIMES DAILY DICLOFENAC Yes [id number] APPLY 4 [facility] SODIUM 1 % 4-05 TIMES ity of gel 00:00: DAILY [place] 00 NEEDED FOR Medical PAIN Branch (SCALE 4-6). ONETOUCH Yes [id number] USE 3 [facility] VERIO TEST 4-05 TIMES ity of STRIPS 00:00: DAILY FOR [place] strip 00 BLOOD Medical GLUCOSE Branch MONITORING HYDROXYZINE Yes [id number] TAKE 1 [facility] 50 mg 4-05 TABLET BY ity of tablet 00:00: MOUTH 3 [place] 00 TIMES Medical DAILY Branch NEEDED FOR ITCHING OR ANXIETY. *MAY IMPAIR ALERTNESS* * LEVETIRACET Yes [id number] TAKE 1 [facility] AM 1,000 mg 4-05 TABLET BY ity of tablet 00:00: MOUTH 2 [place] 00 TIMES Medical DAILY Branch SULFAMETHOX 2023-0 Yes [id number] TAKE 1 [facility] AZOLE-TRIME 4-05 TABLET BY ity of THOPRIM 00:00: MOUTH 2 [place] 800-160 mg 00 TIMES Medical per tablet DAILY WITH Bra nch A GLASS OF WATER Insulin Yes [id number] USE [facility] [place], 4-05 DIRECTED ity of Disposable, 00:00: [place] (SURE 00 Medical COMFORT PEN Branch NEEDLE) 32 gauge x 5/32" Ndle LIDOCAINE 0 Yes [id number] APPLY [facility] VISCOUS 2 % 4-05 TOPICALLY ity of solution 00:00: TO [place] 00 AFFECTED Medical AREA(S) 3 Branch TIMES DAILY DICLOFENAC 0 Yes [id number] APPLY 4 [facility] SODIUM 1 % 4-05 TIMES ity of gel 00:00: DAILY [place] 00 NEEDED FOR Medical PAIN Branch (SCALE 4-6). ONETOUCH Yes [id number] USE 3 [facility] vers VERIO TEST 4-05 TIMES ity of STRIPS 00:00: DAILY FOR [place] strip 00 BLOOD Medical GLUCOSE Branch MONITORING HYDROXYZINE Yes [id number] TAKE 1 [facility] 50 mg 4-05 TABLET BY ity of tablet 00:00: MOUTH 3 [place] 00 TIMES Medical DAILY Branch NEEDED FOR ITCHING OR ANXIETY. *MAY IMPAIR ALERTNESS* * Insulin Yes [id number] USE [facility] [place], 4-05 DIRECTED ity of Disposable, 00:00: [place] (SURE 00 Medical COMFORT PEN Branch NEEDLE) 32 gauge x 5/32" Ndle LIDOCAINE 2022-0 Yes [id number] APPLY [facility] VISCOUS 2 % 4-05 TOPICALLY ity of solution 00:00: TO [place] 00 AFFECTED Medical AREA(S) 3 Branch TIMES DAILY DICLOFENAC 2022-0 Yes [id number] APPLY 4 [facility] SODIUM 1 % 4-05 TIMES ity of gel 00:00: DAILY [place] 00 NEEDED FOR Medical PAIN Branch (SCALE 4-6). ONETOUCH Yes [id number] USE 3 [facility] vers VERIO TEST 4-05 TIMES ity of STRIPS 00:00: DAILY FOR [place] strip 00 BLOOD Medical GLUCOSE Branch MONITORING HYDROXYZINE Yes [id number] TAKE 1 [facility] 50 mg 4-05 TABLET BY ity of tablet 00:00: MOUTH 3 [place] 00 TIMES Medical DAILY Branch NEEDED FOR ITCHING OR ANXIETY. *MAY IMPAIR ALERTNESS* * Insulin 2022-0 Yes [id number] USE [facility] [place], 4-05 DIRECTED ity of Disposable, 00:00: [place] (SURE 00 Medical COMFORT PEN Branch NEEDLE) 32 gauge x 5/32" Ndle LIDOCAINE 2022-0 Yes [id number] APPLY [facility] VISCOUS 2 % 4-05 TOPICALLY ity of solution 00:00: TO [place] 00 AFFECTED Medical AREA(S) 3 Branch TIMES DAILY DICLOFENAC 2022-0 Yes [id number] APPLY 4 [facility] SODIUM 1 % 4-05 TIMES ity of gel 00:00: DAILY [place] 00 NEEDED FOR Medical PAIN Branch (SCALE 4-6). ONETOUCH 2022-0 Yes [id number] USE 3 [facility] vers VERIO TEST 4-05 TIMES ity of STRIPS 00:00: DAILY FOR [place] strip 00 BLOOD Medical GLUCOSE Branch MONITORING HYDROXYZINE 0 Yes [id number] TAKE 1 [facility] 50 mg 4-05 TABLET BY ity of tablet 00:00: MOUTH 3 [place] 00 TIMES Medical DAILY Branch NEEDED FOR ITCHING OR ANXIETY. *MAY IMPAIR ALERTNESS* * Insulin 2022-0 Yes [id number] USE [facility] [place], 4-05 DIRECTED ity of Disposable, 00:00: [place] (SURE 00 Medical COMFORT PEN Branch NEEDLE) 32 gauge x 5/32" Ndle LIDOCAINE 2022-0 Yes [id number] APPLY [facility] VISCOUS 2 % 4-05 TOPICALLY ity of solution 00:00: TO [place] 00 AFFECTED Medical AREA(S) 3 Branch TIMES DAILY DICLOFENAC 2022-0 Yes [id number] APPLY 4 [facility] SODIUM 1 % 4-05 TIMES ity of gel 00:00: DAILY [place] 00 NEEDED FOR Medical PAIN Branch (SCALE 4-6). ONETOUCH 2022-0 Yes [id number] USE 3 [facility] vers VERIO TEST 4-05 TIMES ity of STRIPS 00:00: DAILY FOR [place] strip 00 BLOOD Medical GLUCOSE Branch MONITORING HYDROXYZINE 2022-0 Yes [id number] TAKE 1 [facility] 50 mg 4-05 TABLET BY ity of tablet 00:00: MOUTH 3 [place] 00 TIMES Medical DAILY Branch NEEDED FOR ITCHING OR ANXIETY. *MAY IMPAIR ALERTNESS* * Insulin 2022-0 Yes [id number] USE [facility] [place], 4-05 DIRECTED ity of Disposable, 00:00: [place] (SURE 00 Medical COMFORT PEN Branch NEEDLE) 32 gauge x 5/32" Ndle LIDOCAINE 2022-0 Yes [id number] APPLY [facility] VISCOUS 2 % 4-05 TOPICALLY ity of solution 00:00: TO [place] 00 AFFECTED Medical AREA(S) 3 Branch TIMES DAILY DICLOFENAC 2022-0 Yes [id number] APPLY 4 [facility] SODIUM 1 % 4-05 TIMES ity of gel 00:00: DAILY [place] 00 NEEDED FOR Medical PAIN Branch (SCALE 4-6). ONETOUCH 2022-0 Yes [id number] USE 3 [facility] vers VERIO TEST 4-05 TIMES ity of STRIPS 00:00: DAILY FOR [place] strip 00 BLOOD Medical GLUCOSE Branch MONITORING HYDROXYZINE Yes [id number] TAKE 1 [facility] 50 mg 4-05 TABLET BY ity of tablet 00:00: MOUTH 3 [place] 00 TIMES Medical DAILY Branch NEEDED FOR ITCHING OR ANXIETY. *MAY IMPAIR ALERTNESS* * LIDOCAINE 2022-0 Yes [id number] APPLY [facility] VISCOUS 2 % 4-05 TOPICALLY ity of solution 00:00: TO [place] 00 AFFECTED Medical AREA(S) 3 Branch TIMES DAILY DICLOFENAC 2022-0 Yes [id number] APPLY 4 [facility] SODIUM 1 % 4-05 TIMES ity of gel 00:00: DAILY [place] 00 NEEDED FOR Medical PAIN Branch (SCALE 4-6). ONETOUCH Yes [id number] USE 3 [facility] vers VERIO TEST 4-05 TIMES ity of STRIPS 00:00: DAILY FOR [place] strip 00 BLOOD Medical GLUCOSE Branch MONITORING HYDROXYZINE 0 Yes [id number] TAKE 1 [facility] 50 mg 4-05 TABLET BY ity of tablet 00:00: MOUTH 3 [place] 00 TIMES Medical DAILY Branch NEEDED FOR ITCHING OR ANXIETY. *MAY IMPAIR ALERTNESS* * LIDOCAINE 2022- Yes [id number] APPLY [facility] VISCOUS 2 % 4-05 TOPICALLY ity of solution 00:00: TO [place] 00 AFFECTED Medical AREA(S) 3 Branch TIMES DAILY DICLOFENAC 2022-0 Yes [id number] APPLY 4 [facility] SODIUM 1 % 4-05 TIMES ity of gel 00:00: DAILY [place] 00 NEEDED FOR Medical PAIN Branch (SCALE 4-6). ONETOUCH 2022-0 Yes [id number] USE 3 [facility] vers VERIO TEST 4-05 TIMES ity of STRIPS 00:00: DAILY FOR [place] strip 00 BLOOD Medical GLUCOSE Branch MONITORING HYDROXYZINE Yes [id number] TAKE 1 [facility] 50 mg 4-05 TABLET BY ity of tablet 00:00: MOUTH 3 [place] 00 TIMES Medical DAILY Branch NEEDED FOR ITCHING OR ANXIETY. *MAY IMPAIR ALERTNESS* * LIDOCAINE Yes [id number] APPLY [facility] VISCOUS 2 % 4-05 TOPICALLY ity of solution 00:00: TO [place] 00 AFFECTED Medical AREA(S) 3 Branch TIMES DAILY DICLOFENAC 0 Yes [id number] APPLY 4 [facility] SODIUM 1 % 4-05 TIMES ity of gel 00:00: DAILY [place] 00 NEEDED FOR Medical PAIN Branch (SCALE 4-6). ONETOUCH Yes [id number] USE 3 [facility] vers VERIO TEST 4-05 TIMES ity of STRIPS 00:00: DAILY FOR [place] strip 00 BLOOD Medical GLUCOSE Branch MONITORING HYDROXYZINE Yes [id number] TAKE 1 [facility] 50 mg 4-05 TABLET BY ity of tablet 00:00: MOUTH 3 [place] 00 TIMES Medical DAILY Branch NEEDED FOR ITCHING OR ANXIETY. *MAY IMPAIR ALERTNESS* * LIDOCAINE Yes [id number] APPLY [facility] VISCOUS 2 % 4-05 TOPICALLY ity of solution 00:00: TO [place] 00 AFFECTED Medical AREA(S) 3 Branch TIMES DAILY DICLOFENAC 0 Yes [id number] APPLY 4 [facility] SODIUM 1 % 4-05 TIMES ity of gel 00:00: DAILY [place] 00 NEEDED FOR Medical PAIN Branch (SCALE 4-6). ONETOUCH Yes [id number] USE 3 [facility] vers VERIO TEST 4-05 TIMES ity of STRIPS 00:00: DAILY FOR [place] strip 00 BLOOD Medical GLUCOSE Branch MONITORING HYDROXYZINE Yes [id number] TAKE 1 [facility] 50 mg 4-05 TABLET BY ity of tablet 00:00: MOUTH 3 [place] 00 TIMES Medical DAILY Branch NEEDED FOR ITCHING OR ANXIETY. *MAY IMPAIR ALERTNESS* * LIDOCAINE Yes [id number] APPLY [facility] VISCOUS 2 % 4-05 TOPICALLY ity of solution 00:00: TO [place] 00 AFFECTED Medical AREA(S) 3 Branch TIMES DAILY DICLOFENAC 2022-0 Yes [id number] APPLY 4 [facility] SODIUM 1 % 4-05 TIMES ity of gel 00:00: DAILY [place] 00 NEEDED FOR Medical PAIN Branch (SCALE 4-6). ONETOUCH Yes [id number] USE 3 [facility] vers VERIO TEST 4-05 TIMES ity of STRIPS 00:00: DAILY FOR [place] strip 00 BLOOD Medical GLUCOSE Branch MONITORING LIDOCAINE 0 Yes [id number] APPLY [facility] VISCOUS 2 % 4-05 TOPICALLY ity of solution 00:00: TO [place] 00 AFFECTED Medical AREA(S) 3 Branch TIMES DAILY DICLOFENAC 2022-0 Yes [id number] APPLY 4 [facility] SODIUM 1 % 4-05 TIMES ity of gel 00:00: DAILY [place] 00 NEEDED FOR Medical PAIN Branch (SCALE 4-6). ONETOUCH Yes [id number] USE 3 [facility] vers VERIO TEST 4-05 TIMES ity of STRIPS 00:00: DAILY FOR [place] strip 00 BLOOD Medical GLUCOSE Branch MONITORING LIDOCAINE Yes [id number] APPLY [facility] VISCOUS 2 % 4-05 TOPICALLY ity of solution 00:00: TO [place] 00 AFFECTED Medical AREA(S) 3 Branch TIMES DAILY DICLOFENAC 2022-0 Yes [id number] APPLY 4 [facility] SODIUM 1 % 4-05 TIMES ity of gel 00:00: DAILY [place] 00 NEEDED FOR Medical PAIN Branch (SCALE 4-6). ONETOUCH Yes [id number] USE 3 [facility] vers VERIO TEST 4-05 TIMES ity of STRIPS 00:00: DAILY FOR [place] strip 00 BLOOD Medical GLUCOSE Branch MONITORING LIDOCAINE Yes [id number] APPLY [facility] VISCOUS 2 % 4-05 TOPICALLY ity of solution 00:00: TO [place] 00 AFFECTED Medical AREA(S) 3 Branch TIMES DAILY DICLOFENAC 2022-0 Yes [id number] APPLY 4 [facility] SODIUM 1 % 4-05 TIMES ity of gel 00:00: DAILY [place] 00 NEEDED FOR Medical PAIN Branch (SCALE 4-6). ONETOUCH Yes [id number] USE 3 [facility] vers VERIO TEST 4-05 TIMES ity of STRIPS 00:00: DAILY FOR [place] strip 00 BLOOD Medical GLUCOSE Branch MONITORING LIDOCAINE 0 Yes [id number] APPLY [facility] VISCOUS 2 % 4-05 TOPICALLY ity of solution 00:00: TO [place] 00 AFFECTED Medical AREA(S) 3 Branch TIMES DAILY DICLOFENAC 2022-0 Yes [id number] APPLY 4 [facility] SODIUM 1 % 4-05 TIMES ity of gel 00:00: DAILY [place] 00 NEEDED FOR Medical PAIN Branch (SCALE 4-6). ONETOUCH Yes [id number] USE 3 [facility] vers VERIO TEST 4-05 TIMES ity of STRIPS 00:00: DAILY FOR [place] strip 00 BLOOD Medical GLUCOSE Branch MONITORING LIDOCAINE Yes [id number] APPLY [facility] VISCOUS 2 % 4-05 TOPICALLY ity of solution 00:00: TO [place] 00 AFFECTED Medical AREA(S) 3 Branch TIMES DAILY DICLOFENAC Yes [id number] APPLY 4 [facility] SODIUM 1 % 4-05 TIMES ity of gel 00:00: DAILY [place] 00 NEEDED FOR Medical PAIN Branch (SCALE 4-6). ONETOUCH Yes [id number] USE 3 [facility] vers VERIO TEST 4-05 TIMES ity of STRIPS 00:00: DAILY FOR [place] strip 00 BLOOD Medical GLUCOSE Branch MONITORING LIDOCAINE Yes [id number] APPLY [facility] VISCOUS 2 % 4-05 TOPICALLY ity of solution 00:00: TO [place] 00 AFFECTED Medical AREA(S) 3 Branch TIMES DAILY DICLOFENAC Yes [id number] APPLY 4 [facility] SODIUM 1 % 4-05 TIMES ity of gel 00:00: DAILY [place] 00 NEEDED FOR Medical PAIN Branch (SCALE 4-6). ONETOUCH Yes [id number] USE 3 [facility] vers VERIO TEST 4-05 TIMES ity of STRIPS 00:00: DAILY FOR [place] strip 00 BLOOD Medical GLUCOSE Branch MONITORING HYDROXYZINE 2022- No [id number] TAKE 1 [facility] 50 mg 06-25- TABLET BY ity of tablet 00:00: 00:00 MOUTH 3 [place] 00 :00 TIMES Medical DAILY Branch NEEDED FOR ITCHING OR ANXIETY. *MAY IMPAIR ALERTNESS* * Insulin 2022- No [id number] USE [facility] [place], 06-25-23 DIRECTED ity of Disposable, 00:00: 00:00 [place] (SURE 00 :00 Medical COMFORT PEN Branch NEEDLE) 32 gauge x 5/32" Ndle LEVETIRACET 2022- No [id number] TAKE 1 [facility] AM 1,000 mg 06-25 05-10 TABLET BY it y of tablet 00:00: 00:00 MOUTH 2 [place] 00 :00 TIMES Medical DAILY Branch SULFAMETHOX 2022- No [id number] TAKE 1 [facility] AZOLE-TRIME 4-05 05-10 TABLET BY it y of THOPRIM 00:00: 00:00 MOUTH 2 [place] 800-160 mg 00 :00 TIMES Medical per tablet DAILY WITH Bra nch A GLASS OF WATER METFORMIN 2022- No [id number] TAKE 2 U nivers ER 500 mg 4-05 05-04 TABLETS BY ity of 24 hr 00:00: 00:00 MOUTH 2 [place] tablet 00 :00 TIMES Medical DAILY WITH Branch FOOD CLOPIDOGREL 2022- No [id number] TAKE 1 [facility] 75 mg 4-05 05-03 TABLET BY ity of tablet 00:00: 00:00 MOUTH [place] 00 :00 EVERY DAY Medical Branch PROMETHAZIN Yes [id number] TAKE 1 [facility] E 25 mg 4-03 TABLET BY ity of tablet 00:00: MOUTH [place] 00 EVERY 6 Medical HOURS Branch NEEDED FOR NAUSEA AND VOMITING *MAY IMPAIR ALERTNESS* * PROMETHAZIN Yes [id number] TAKE 1 [facility] E 25 mg 4-03 TABLET BY ity of tablet 00:00: MOUTH [place] 00 EVERY 6 Medical HOURS Branch NEEDED FOR NAUSEA AND VOMITING *MAY IMPAIR ALERTNESS* * PROMETHAZIN Yes [id number] TAKE 1 [facility] E 25 mg 4-03 TABLET BY ity of tablet 00:00: MOUTH [place] 00 EVERY 6 Medical HOURS Branch NEEDED FOR NAUSEA AND VOMITING *MAY IMPAIR ALERTNESS* * PROMETHAZIN Yes [id number] TAKE 1 [facility] E 25 mg 4-03 TABLET BY ity of tablet 00:00: MOUTH [place] 00 EVERY 6 Medical HOURS Branch NEEDED FOR NAUSEA AND VOMITING *MAY IMPAIR ALERTNESS* * PROMETHAZIN Yes [id number] TAKE 1 [facility] E 25 mg 4-03 TABLET BY ity of tablet 00:00: MOUTH [place] 00 EVERY 6 Medical HOURS Branch NEEDED FOR NAUSEA AND VOMITING *MAY IMPAIR ALERTNESS* * PROMETHAZIN Yes [id number] TAKE 1 [facility] E 25 mg 4-03 TABLET BY ity of tablet 00:00: MOUTH [place] 00 EVERY 6 Medical HOURS Branch NEEDED FOR NAUSEA AND VOMITING *MAY IMPAIR ALERTNESS* * PROMETHAZIN Yes [id number] TAKE 1 [facility] E 25 mg 4-03 TABLET BY ity of tablet 00:00: MOUTH [place] 00 EVERY 6 Medical HOURS Branch NEEDED FOR NAUSEA AND VOMITING *MAY IMPAIR ALERTNESS* * PROMETHAZIN 2022-0 Yes [id number] TAKE 1 [facility] E 25 mg 4-03 TABLET BY ity of tablet 00:00: MOUTH [place] 00 EVERY 6 Medical HOURS Branch NEEDED FOR NAUSEA AND VOMITING *MAY IMPAIR ALERTNESS* * PROMETHAZIN 2022-0 Yes [id number] TAKE 1 [facility] E 25 mg 4-03 TABLET BY ity of tablet 00:00: MOUTH [place] 00 EVERY 6 Medical HOURS Branch NEEDED FOR NAUSEA AND VOMITING *MAY IMPAIR ALERTNESS* * PROMETHAZIN 2022-0 Yes [id number] TAKE 1 [facility] E 25 mg 4-03 TABLET BY ity of tablet 00:00: MOUTH [place] 00 EVERY 6 Medical HOURS Branch NEEDED FOR NAUSEA AND VOMITING *MAY IMPAIR ALERTNESS* * PROMETHAZIN 2022-0 Yes [id number] TAKE 1 [facility] E 25 mg 4-03 TABLET BY ity of tablet 00:00: MOUTH [place] 00 EVERY 6 Medical HOURS Branch NEEDED FOR NAUSEA AND VOMITING *MAY IMPAIR ALERTNESS* * PROMETHAZIN 2022-0 Yes [id number] TAKE 1 [facility] E 25 mg 4-03 TABLET BY ity of tablet 00:00: MOUTH [place] 00 EVERY 6 Medical HOURS Branch NEEDED FOR NAUSEA AND VOMITING *MAY IMPAIR ALERTNESS* * PROMETHAZIN 2022-0 Yes [id number] TAKE 1 [facility] E 25 mg 4-03 TABLET BY ity of tablet 00:00: MOUTH [place] 00 EVERY 6 Medical HOURS Branch NEEDED FOR NAUSEA AND VOMITING *MAY IMPAIR ALERTNESS* * PROMETHAZIN 2022-0 Yes [id number] TAKE 1 [facility] E 25 mg 4-03 TABLET BY ity of tablet 00:00: MOUTH [place] 00 EVERY 6 Medical HOURS Branch NEEDED FOR NAUSEA AND VOMITING *MAY IMPAIR ALERTNESS* * PROMETHAZIN 2022-0 Yes [id number] TAKE 1 [facility] E 25 mg 4-03 TABLET BY ity of tablet 00:00: MOUTH [place] 00 EVERY 6 Medical HOURS Branch NEEDED FOR NAUSEA AND VOMITING *MAY IMPAIR ALERTNESS* * PROMETHAZIN 2022-0 Yes [id number] TAKE 1 [facility] E 25 mg 4-03 TABLET BY ity of tablet 00:00: MOUTH [place] 00 EVERY 6 Medical HOURS Branch NEEDED FOR NAUSEA AND VOMITING *MAY IMPAIR ALERTNESS* * PROMETHAZIN 2022-0 Yes [id number] TAKE 1 [facility] E 25 mg 4-03 TABLET BY ity of tablet 00:00: MOUTH [place] 00 EVERY 6 Medical HOURS Branch NEEDED FOR NAUSEA AND VOMITING *MAY IMPAIR ALERTNESS* * PROMETHAZIN 2022-0 Yes [id number] TAKE 1 [facility] E 25 mg 4-03 TABLET BY ity of tablet 00:00: MOUTH [place] 00 EVERY 6 Medical HOURS Branch NEEDED FOR NAUSEA AND VOMITING *MAY IMPAIR ALERTNESS* * PROMETHAZIN 2022-0 Yes [id number] TAKE 1 [facility] E 25 mg 4-03 TABLET BY ity of tablet 00:00: MOUTH [place] 00 EVERY 6 Medical HOURS Branch NEEDED FOR NAUSEA AND VOMITING *MAY IMPAIR ALERTNESS* * PROMETHAZIN 2022-0 Yes [id number] TAKE 1 [facility] E 25 mg 4-03 TABLET BY ity of tablet 00:00: MOUTH [place] 00 EVERY 6 Medical HOURS Branch NEEDED FOR NAUSEA AND VOMITING *MAY IMPAIR ALERTNESS* * PROMETHAZIN 2022-0 Yes [id number] TAKE 1 [facility] E 25 mg 4-03 TABLET BY ity of tablet 00:00: MOUTH [place] 00 EVERY 6 Medical HOURS Branch NEEDED FOR NAUSEA AND VOMITING *MAY IMPAIR ALERTNESS* * PROMETHAZIN 2022-0 Yes [id number] TAKE 1 [facility] E 25 mg 4-03 TABLET BY ity of tablet 00:00: MOUTH [place] 00 EVERY 6 Medical HOURS Branch NEEDED FOR NAUSEA AND VOMITING *MAY IMPAIR ALERTNESS* * PROMETHAZIN 0 Yes [id number] TAKE 1 [facility] E 25 mg 4-03 TABLET BY ity of tablet 00:00: MOUTH [place] 00 EVERY 6 Medical HOURS Branch NEEDED FOR NAUSEA AND VOMITING *MAY IMPAIR ALERTNESS* * PROMETHAZIN 2022-0 Yes [id number] TAKE 1 [facility] E 25 mg 4-03 TABLET BY ity of tablet 00:00: MOUTH [place] 00 EVERY 6 Medical HOURS Branch NEEDED FOR NAUSEA AND VOMITING *MAY IMPAIR ALERTNESS* * PROMETHAZIN 2022-0 Yes [id number] TAKE 1 [facility] E 25 mg 4-03 TABLET BY ity of tablet 00:00: MOUTH [place] 00 EVERY 6 Medical HOURS Branch NEEDED FOR NAUSEA AND VOMITING *MAY IMPAIR ALERTNESS* * PROMETHAZIN 2022-0 Yes [id number] TAKE 1 [facility] E 25 mg 4-03 TABLET BY ity of tablet 00:00: MOUTH [place] 00 EVERY 6 Medical HOURS Branch NEEDED FOR NAUSEA AND VOMITING *MAY IMPAIR ALERTNESS* * PROMETHAZIN 2022-0 Yes [id number] TAKE 1 [facility] E 25 mg 4-03 TABLET BY ity of tablet 00:00: MOUTH [place] 00 EVERY 6 Medical HOURS Branch NEEDED FOR NAUSEA AND VOMITING *MAY IMPAIR ALERTNESS* * PROMETHAZIN 2022-0 Yes [id number] TAKE 1 [facility] E 25 mg 4-03 TABLET BY ity of tablet 00:00: MOUTH [place] 00 EVERY 6 Medical HOURS Branch NEEDED FOR NAUSEA AND VOMITING *MAY IMPAIR ALERTNESS* * PROMETHAZIN 2022-0 Yes [id number] TAKE 1 [facility] E 25 mg 4-03 TABLET BY ity of tablet 00:00: MOUTH [place] 00 EVERY 6 Medical HOURS Branch NEEDED FOR NAUSEA AND VOMITING *MAY IMPAIR ALERTNESS* * PROMETHAZIN 2022-0 Yes [id number] TAKE 1 [facility] E 25 mg 4-03 TABLET BY ity of tablet 00:00: MOUTH [place] 00 EVERY 6 Medical HOURS Branch NEEDED FOR NAUSEA AND VOMITING *MAY IMPAIR ALERTNESS* * PROMETHAZIN 2022-0 Yes [id number] TAKE 1 [facility] E 25 mg 4-03 TABLET BY ity of tablet 00:00: MOUTH [place] 00 EVERY 6 Medical HOURS Branch NEEDED FOR NAUSEA AND VOMITING *MAY IMPAIR ALERTNESS* * PROMETHAZIN 2022-0 Yes [id number] TAKE 1 [facility] E 25 mg 4-03 TABLET BY ity of tablet 00:00: MOUTH [place] 00 EVERY 6 Medical HOURS Branch NEEDED FOR NAUSEA AND VOMITING *MAY IMPAIR ALERTNESS* * PROMETHAZIN 2022-0 Yes [id number] TAKE 1 [facility] E 25 mg 4-03 TABLET BY ity of tablet 00:00: MOUTH [place] 00 EVERY 6 Medical HOURS Branch NEEDED FOR NAUSEA AND VOMITING *MAY IMPAIR ALERTNESS* * PROMETHAZIN 2022-0 Yes [id number] TAKE 1 [facility] E 25 mg 4-03 TABLET BY ity of tablet 00:00: MOUTH [place] 00 EVERY 6 Medical HOURS Branch NEEDED FOR NAUSEA AND VOMITING *MAY IMPAIR ALERTNESS* * PROMETHAZIN 2022-0 Yes [id number] TAKE 1 [facility] E 25 mg 4-03 TABLET BY ity of tablet 00:00: MOUTH [place] 00 EVERY 6 Medical HOURS Branch NEEDED FOR NAUSEA AND VOMITING *MAY IMPAIR ALERTNESS* * PROMETHAZIN 2022-0 Yes [id number] TAKE 1 [facility] E 25 mg 4-03 TABLET BY ity of tablet 00:00: MOUTH [place] 00 EVERY 6 Medical HOURS Branch NEEDED FOR NAUSEA AND VOMITING *MAY IMPAIR ALERTNESS* * PROMETHAZIN 3-0 Yes [id number] TAKE 1 [facility] E 25 mg 4-03 TABLET BY ity of tablet 00:00: MOUTH [place] 00 EVERY 6 Medical HOURS Branch NEEDED FOR NAUSEA AND VOMITING *MAY IMPAIR ALERTNESS* * famotidine 3-0 Yes [id number] 40mg Take 1 [facility] 40 mg 3-31 tablet by ity of tablet 00:00: mouth in [place] the Medical morning. Branch famotidine 2022-0 Yes [id number] 40mg Take 1 [facility] 40 mg 3-31 tablet by ity of tablet 00:00: mouth in [place] the Medical morning. Branch famotidine 2022-0 Yes [id number] 40mg Take 1 [facility] 40 mg 3-31 tablet by ity of tablet 00:00: mouth in [place] the Medical morning. Branch famotidine 2022-0 Yes [id number] 40mg Take 1 [facility] 40 mg 3-31 tablet by ity of tablet 00:00: mouth in [place] the Medical morning. Branch famotidine 2022-0 Yes [id number] 40mg Take 1 [facility] 40 mg 3-31 tablet by ity of tablet 00:00: mouth in [place] the Medical morning. Branch famotidine 2022-0 Yes [id number] 40mg Take 1 [facility] 40 mg 3-31 tablet by ity of tablet 00:00: mouth in [place] the Medical morning. Branch famotidine 2022-0 Yes [id number] 40mg Take 1 [facility] 40 mg 3-31 tablet by ity of tablet 00:00: mouth in [place] the Medical morning. Branch famotidine 2022-0 Yes [id number] 40mg Take 1 [facility] 40 mg 3-31 tablet by ity of tablet 00:00: mouth in [place] the Medical morning. Branch famotidine 3-0 Yes [id number] 40mg Take 1 [facility] 40 mg 3-31 tablet by ity of tablet 00:00: mouth in [place] the Medical morning. Branch famotidine 2022-0 Yes [id number] 40mg Take 1 [facility] 40 mg 3-31 tablet by ity of tablet 00:00: mouth in [place] the Medical morning. Branch famotidine 2022-0 Yes [id number] 40mg Take 1 [facility] 40 mg 3-31 tablet by ity of tablet 00:00: mouth in [place] the Medical morning. Branch famotidine 2023-0 Yes [id number] 40mg Take 1 [facility] 40 mg 3-31 tablet by ity of tablet 00:00: mouth in [place] the Medical morning. Branch famotidine 2023-0 Yes [id number] 40mg Take 1 [facility] 40 mg 3-31 tablet by ity of tablet 00:00: mouth in [place] the Medical morning. Branch famotidine 2023-0 Yes [id number] 40mg Take 1 [facility] 40 mg 3-31 tablet by ity of tablet 00:00: mouth in [place] the Medical morning. Branch famotidine 2023-0 Yes [id number] 40mg Take 1 [facility] 40 mg 3-31 tablet by ity of tablet 00:00: mouth in [place] the Medical morning. Branch famotidine 2023-0 Yes [id number] 40mg Take 1 [facility] 40 mg 3-31 tablet by ity of tablet 00:00: mouth in [place] the Medical morning. Branch famotidine 2023-0 Yes [id number] 40mg Take 1 [facility] 40 mg 3-31 tablet by ity of tablet 00:00: mouth in [place] the Medical morning. Branch famotidine 2023-0 Yes [id number] 40mg Take 1 [facility] 40 mg 3-31 tablet by ity of tablet 00:00: mouth in [place] the Medical morning. Branch famotidine 2023-0 Yes [id number] 40mg Take 1 [facility] 40 mg 3-31 tablet by ity of tablet 00:00: mouth in [place] the Medical morning. Branch famotidine 2023-0 Yes [id number] 40mg Take 1 [facility] 40 mg 3-31 tablet by ity of tablet 00:00: mouth in [place] the Medical morning. Branch famotidine 2023-0 Yes [id number] 40mg Take 1 [facility] 40 mg 3-31 tablet by ity of tablet 00:00: mouth in [place] the Medical morning. Branch famotidine 2023-0 Yes [id number] 40mg Take 1 [facility] 40 mg 3-31 tablet by ity of tablet 00:00: mouth in [place] the Medical morning. Branch famotidine 2023-0 Yes [id number] 40mg Take 1 [facility] 40 mg 3-31 tablet by ity of tablet 00:00: mouth in [place] 00 the Medical morning. Branch famotidine 2022-0 Yes [id number] 40mg Take 1 [facility] 40 mg 3-31 tablet by ity of tablet 00:00: mouth in [place] the Medical morning. Branch famotidine 3-0 Yes [id number] 40mg Take 1 [facility] 40 mg 3-31 tablet by ity of tablet 00:00: mouth in [place] the Medical morning. Branch famotidine 3-0 Yes [id number] 40mg Take 1 [facility] 40 mg 3-31 tablet by ity of tablet 00:00: mouth in [place] the Medical morning. Branch famotidine 2022-0 Yes [id number] 40mg Take 1 [facility] 40 mg 3-31 tablet by ity of tablet 00:00: mouth in [place] the Medical morning. Branch famotidine 2022-0 Yes [id number] 40mg Take 1 [facility] 40 mg 3-31 tablet by ity of tablet 00:00: mouth in [place] the Medical morning. Branch famotidine 2022-0 Yes [id number] 40mg Take 1 [facility] 40 mg 3-31 tablet by ity of tablet 00:00: mouth in [place] the Medical morning. Branch famotidine 2022-0 Yes [id number] 40mg Take 1 [facility] 40 mg 3-31 tablet by ity of tablet 00:00: mouth in [place] the Medical morning. Branch famotidine 2022-0 Yes [id number] 40mg Take 1 [facility] 40 mg 3-31 tablet by ity of tablet 00:00: mouth in [place] the Medical morning. Branch famotidine 2022-0 Yes [id number] 40mg Take 1 [facility] 40 mg 3-31 tablet by ity of tablet 00:00: mouth in [place] the Medical morning. Branch famotidine 2022-0 Yes [id number] 40mg Take 1 [facility] 40 mg 3-31 tablet by ity of tablet 00:00: mouth in [place] 00 the Medical morning. Branch famotidine 3-0 2023- No [id number] 40mg Take 1 [facility] 40 mg 3-31 08-21 tablet by ity of tablet 00:00: 00:00 mouth in [place] 00 :00 the Medical morning. Branch BACLOFEN 20 2022-0 Yes [id number] TAKE 1 [facility] mg tablet 3-30 TABLET BY ity o f 00:00: MOUTH 3 [place] 00 TIMES Medical DAILY *MAY Branch IMPAIR ALERTNESS* * BACLOFEN 20 2022- Yes [id number] TAKE 1 [facility] mg tablet 3-30 TABLET BY ity o f 00:00: MOUTH 3 [place] 00 TIMES Medical DAILY *MAY Branch IMPAIR ALERTNESS* * BACLOFEN Yes [id number] TAKE 1 [facility] mg tablet 3-30 TABLET BY ity o f 00:00: MOUTH 3 [place] 00 TIMES Medical DAILY *MAY Branch IMPAIR ALERTNESS* * BACLOFEN 2022- Yes [id number] TAKE 1 [facility] mg tablet 3-30 TABLET BY ity o f 00:00: MOUTH 3 [place] 00 TIMES Medical DAILY *MAY Branch IMPAIR ALERTNESS* * BACLOFEN 2022- Yes [id number] TAKE 1 [facility] mg tablet 3-30 TABLET BY ity o f 00:00: MOUTH 3 [place] 00 TIMES Medical DAILY *MAY Branch IMPAIR ALERTNESS* * BACLOFEN Yes [id number] TAKE 1 [facility] mg tablet 3-30 TABLET BY ity o f 00:00: MOUTH 3 [place] 00 TIMES Medical DAILY *MAY Branch IMPAIR ALERTNESS* * BACLOFEN Yes [id number] TAKE 1 [facility] mg tablet 3-30 TABLET BY ity o f 00:00: MOUTH 3 [place] 00 TIMES Medical DAILY *MAY Branch IMPAIR ALERTNESS* * BACLOFEN Yes [id number] TAKE 1 [facility] mg tablet 3-30 TABLET BY ity o f 00:00: MOUTH 3 [place] 00 TIMES Medical DAILY *MAY Branch IMPAIR ALERTNESS* * BACLOFEN Yes [id number] TAKE 1 [facility] mg tablet 3-30 TABLET BY ity o f 00:00: MOUTH 3 [place] 00 TIMES Medical DAILY *MAY Branch IMPAIR ALERTNESS* * BACLOFEN 2022-0 Yes [id number] TAKE 1 [facility] mg tablet 3-30 TABLET BY ity o f 00:00: MOUTH 3 [place] 00 TIMES Medical DAILY *MAY Branch IMPAIR ALERTNESS* * BACLOFEN 20 2022-0 Yes [id number] TAKE 1 [facility] mg tablet 3-30 TABLET BY ity o f 00:00: MOUTH 3 [place] 00 TIMES Medical DAILY *MAY Branch IMPAIR ALERTNESS* * BACLOFEN 2022-0 Yes [id number] TAKE 1 [facility] mg tablet 3-30 TABLET BY ity o f 00:00: MOUTH 3 [place] 00 TIMES Medical DAILY *MAY Branch IMPAIR ALERTNESS* * BACLOFEN 20 Yes [id number] TAKE 1 [facility] mg tablet 3-30 TABLET BY ity o f 00:00: MOUTH 3 [place] 00 TIMES Medical DAILY *MAY Branch IMPAIR ALERTNESS* * BACLOFEN 20 2022- No [id number] TAKE 1 [facility] mg tablet 3-30 05-03 TABLET BY ity of 00:00: 00:00 MOUTH 3 [place] 00 :00 TIMES Medical DAILY *MAY Branch IMPAIR ALERTNESS* * potassium 2022- No [id number] 3[drp] 0.15 mL (3 [facility] iodide 06-16- Drop), ity of (SSKI) 1 18:00: 16:30 Oral, [place] gram/mL 00 :00 ONCE, 1 Medical solution dose, On Branch 0.15 mL Thu06/16/22 at 1300, Routine ioflupane I 2022- No [id number] 5.2mCi 5.2 [facility] 123 06-16 millicurie ity of (DATSCAN) 16:30: 16:30 , [place] injection 00 :00 Intravenou Medi radha 5.2 s, ONCE, 1 Branch millicurie dose, On Thu06/16/22 at 1130, Routine hydrOXYzine Yes [id number] TAKE 1 [facility] 50 mg 3-27 TABLET BY ity of tablet 00:00: MOUTH 3 [place] 00 TIMES Medical DAILY Branch NEEDED FOR ITCHING OR ANXIETY. *MAY IMPAIR ALERTNESS* * hydrOXYzine Yes [id number] TAKE 1 [facility] 50 mg 3-27 TABLET BY ity of tablet 00:00: MOUTH 3 [place] 00 TIMES Medical DAILY Branch NEEDED FOR ITCHING OR ANXIETY. *MAY IMPAIR ALERTNESS* * hydrOXYzine Yes [id number] TAKE 1 [facility] 50 mg 3-27 TABLET BY ity of tablet 00:00: MOUTH 3 [place] 00 TIMES Medical DAILY Branch NEEDED FOR ITCHING OR ANXIETY. *MAY IMPAIR ALERTNESS* * hydrOXYzine Yes [id number] TAKE 1 [facility] 50 mg 3-27 TABLET BY ity of tablet 00:00: MOUTH 3 [place] 00 TIMES Medical DAILY Branch NEEDED FOR ITCHING OR ANXIETY. *MAY IMPAIR ALERTNESS* * hydrOXYzine Yes [id number] TAKE 1 [facility] 50 mg 3-27 TABLET BY ity of tablet 00:00: MOUTH 3 [place] 00 TIMES Medical DAILY Branch NEEDED FOR ITCHING OR ANXIETY. *MAY IMPAIR ALERTNESS* * hydrOXYzine 2022-0 Yes [id number] TAKE 1 [facility] 50 mg 3-27 TABLET BY ity of tablet 00:00: MOUTH 3 [place] 00 TIMES Medical DAILY Branch NEEDED FOR ITCHING OR ANXIETY. *MAY IMPAIR ALERTNESS* * hydrOXYzine 2022-0 Yes [id number] TAKE 1 [facility] 50 mg 3-27 TABLET BY ity of tablet 00:00: MOUTH 3 [place] 00 TIMES Medical DAILY Branch NEEDED FOR ITCHING OR ANXIETY. *MAY IMPAIR ALERTNESS* * hydrOXYzine 2022-0 Yes [id number] TAKE 1 [facility] 50 mg 3-27 TABLET BY ity of tablet 00:00: MOUTH 3 [place] 00 TIMES Medical DAILY Branch NEEDED FOR ITCHING OR ANXIETY. *MAY IMPAIR ALERTNESS* * hydrOXYzine 2022-0 Yes [id number] TAKE 1 [facility] 50 mg 3-27 TABLET BY ity of tablet 00:00: MOUTH 3 [place] 00 TIMES Medical DAILY Branch NEEDED FOR ITCHING OR ANXIETY. *MAY IMPAIR ALERTNESS* * hydrOXYzine 2022-0 Yes [id number] TAKE 1 [facility] 50 mg 3-27 TABLET BY ity of tablet 00:00: MOUTH 3 [place] 00 TIMES Medical DAILY Branch NEEDED FOR ITCHING OR ANXIETY. *MAY IMPAIR ALERTNESS* * hydrOXYzine 2022-0 2022- No [id number] TAKE 1 [facility] 50 mg 3-27 04-05 TABLET BY ity of tablet 00:00: 00:00 MOUTH 3 [place] 00 :00 TIMES Medical DAILY Branch NEEDED FOR ITCHING OR ANXIETY. *MAY IMPAIR ALERTNESS* * liraglutide 2022-0 Yes [id number] INJECT 1.8 [facility] (VICTOZA 3-24 MG UNDER ity of 3-SOILA) 0.6 00:00: THE SKIN [place] as mg/0.1 mL 00 IN THE Medical (18 mg/3 MORNING Branch mL) injection liraglutide 2022-0 Yes [id number] INJECT 1.8 [facility] (VICTOZA 3-24 MG UNDER ity of 3-SOILA) 0.6 00:00: THE SKIN [place] as mg/0.1 mL 00 IN THE Medical (18 mg/3 MORNING Branch mL) injection liraglutide 2022-0 Yes [id number] INJECT 1.8 [facility] (VICTOZA 3-24 MG UNDER ity of 3-SOILA) 0.6 00:00: THE SKIN [place] as mg/0.1 mL 00 IN THE Medical (18 mg/3 MORNING Branch mL) injection liraglutide 2022-0 Yes [id number] INJECT 1.8 [facility] (VICTOZA 3-24 MG UNDER ity of 3-SOILA) 0.6 00:00: THE SKIN [place] as mg/0.1 mL 00 IN THE Medical (18 mg/3 MORNING Branch mL) injection liraglutide 2022- Yes [id number] INJECT 1.8 [facility] (VICTOZA 3-24 MG UNDER ity of 3-SOILA) 0.6 00:00: THE SKIN [place] as mg/0.1 mL 00 IN THE Medical (18 mg/3 MORNING Branch mL) injection liraglutide 2022- Yes [id number] INJECT 1.8 [facility] (VICTOZA 3-24 MG UNDER ity of 3-SOILA) 0.6 00:00: THE SKIN [place] as mg/0.1 mL 00 IN THE Medical (18 mg/3 MORNING Branch mL) injection liraglutide 2022-0 Yes [id number] INJECT 1.8 [facility] (VICTOZA 3-24 MG UNDER ity of 3-SOILA) 0.6 00:00: THE SKIN [place] as mg/0.1 mL 00 IN THE Medical (18 mg/3 MORNING Branch mL) injection liraglutide 2022-0 Yes [id number] INJECT 1.8 [facility] (VICTOZA 3-24 MG UNDER ity of 3-SOILA) 0.6 00:00: THE SKIN [place] as mg/0.1 mL 00 IN THE Medical (18 mg/3 MORNING Branch mL) injection liraglutide 2022-0 Yes [id number] INJECT 1.8 [facility] (VICTOZA 3-24 MG UNDER ity of 3-SOILA) 0.6 00:00: THE SKIN [place] mg/0.1 mL 00 IN THE Medical (18 mg/3 MORNING Branch mL) injection liraglutide 2022-0 Yes [id number] INJECT 1.8 [facility] (VICTOZA 3-24 MG UNDER ity of 3-SOILA) 0.6 00:00: THE SKIN [place] mg/0.1 mL 00 IN THE Medical (18 mg/3 MORNING Branch mL) injection liraglutide 2022-0 Yes [id number] INJECT 1.8 [facility] (VICTOZA 3-24 MG UNDER ity of 3-SOILA) 0.6 00:00: THE SKIN [place] mg/0.1 mL 00 IN THE Medical (18 mg/3 MORNING Branch mL) injection liraglutide 2022-0 Yes [id number] INJECT 1.8 [facility] (VICTOZA 3-24 MG UNDER ity of 3-SOILA) 0.6 00:00: THE SKIN [place] mg/0.1 mL 00 IN THE Medical (18 mg/3 MORNING Branch mL) injection liraglutide 2022- Yes [id number] INJECT 1.8 [facility] (VICTOZA 3-24 MG UNDER ity of 3-SOILA) 0.6 00:00: THE SKIN [place] mg/0.1 mL 00 IN THE Medical (18 mg/3 MORNING Branch mL) injection liraglutide 2022- Yes [id number] INJECT 1.8 [facility] (VICTOZA 3-24 MG UNDER ity of 3-SOILA) 0.6 00:00: THE SKIN [place] mg/0.1 mL 00 IN THE Medical (18 mg/3 MORNING Branch mL) injection liraglutide 2022-0 Yes [id number] INJECT 1.8 [facility] (VICTOZA 3-24 MG UNDER ity of 3-SOILA) 0.6 00:00: THE SKIN [place] mg/0.1 mL 00 IN THE Medical (18 mg/3 MORNING Branch mL) injection liraglutide 2022-0 Yes [id number] INJECT 1.8 [facility] (VICTOZA 3-24 MG UNDER ity of 3-SOILA) 0.6 00:00: THE SKIN [place] mg/0.1 mL 00 IN THE Medical (18 mg/3 MORNING Branch mL) injection liraglutide 2022-0 Yes [id number] INJECT 1.8 [facility] (VICTOZA 3-24 MG UNDER ity of 3-SOILA) 0.6 00:00: THE SKIN [place] mg/0.1 mL 00 IN THE Medical (18 mg/3 MORNING Branch mL) injection liraglutide 2022-0 Yes [id number] INJECT 1.8 [facility] (VICTOZA 3-24 MG UNDER ity of 3-SOILA) 0.6 00:00: THE SKIN [place] mg/0.1 mL 00 IN THE Medical (18 mg/3 MORNING Branch mL) injection liraglutide 2022-0 Yes [id number] INJECT 1.8 [facility] (VICTOZA 3-24 MG UNDER ity of 3-SOILA) 0.6 00:00: THE SKIN [place] mg/0.1 mL 00 IN THE Medical (18 mg/3 MORNING Branch mL) injection liraglutide 2022-0 Yes [id number] INJECT 1.8 [facility] (VICTOZA 3-24 MG UNDER ity of 3-SOILA) 0.6 00:00: THE SKIN [place] mg/0.1 mL 00 IN THE Medical (18 mg/3 MORNING Branch mL) injection liraglutide 2022-0 Yes [id number] INJECT 1.8 [facility] (VICTOZA 3-24 MG UNDER ity of 3-SOILA) 0.6 00:00: THE SKIN [place] mg/0.1 mL 00 IN THE Medical (18 mg/3 MORNING Branch mL) injection liraglutide 2022-0 Yes [id number] INJECT 1.8 [facility] (VICTOZA 3-24 MG UNDER ity of 3-SOILA) 0.6 00:00: THE SKIN [place] mg/0.1 mL 00 IN THE Medical (18 mg/3 MORNING Branch mL) injection liraglutide 2022-0 Yes [id number] INJECT 1.8 [facility] (VICTOZA 3-24 MG UNDER ity of 3-SOILA) 0.6 00:00: THE SKIN [place] mg/0.1 mL 00 IN THE Medical (18 mg/3 MORNING Branch mL) injection liraglutide 2022-0 Yes [id number] INJECT 1.8 [facility] (VICTOZA 3-24 MG UNDER ity of 3-SOILA) 0.6 00:00: THE SKIN [place] mg/0.1 mL 00 IN THE Medical (18 mg/3 MORNING Branch mL) injection liraglutide 2022-0 Yes [id number] INJECT 1.8 [facility] (VICTOZA 3-24 MG UNDER ity of 3-SOILA) 0.6 00:00: THE SKIN [place] mg/0.1 mL 00 IN THE Medical (18 mg/3 MORNING Branch mL) injection liraglutide 2022-0 Yes [id number] INJECT 1.8 [facility] (VICTOZA 3-24 MG UNDER ity of 3-SOILA) 0.6 00:00: THE SKIN [place] mg/0.1 mL 00 IN THE Medical (18 mg/3 MORNING Branch mL) injection liraglutide 2023-0 Yes [id number] INJECT 1.8 [facility] (VICTOZA 3-24 MG UNDER ity of 3-SOILA) 0.6 00:00: THE SKIN [place] mg/0.1 mL 00 IN THE Medical (18 mg/3 MORNING Branch mL) injection liraglutide 2022-0 Yes [id number] INJECT 1.8 [facility] (VICTOZA 3-24 MG UNDER ity of 3-SOILA) 0.6 00:00: THE SKIN [place] mg/0.1 mL 00 IN THE Medical (18 mg/3 MORNING Branch mL) injection liraglutide 2022-0 Yes [id number] INJECT 1.8 [facility] (VICTOZA 3-24 MG UNDER ity of 3-SOILA) 0.6 00:00: THE SKIN [place] mg/0.1 mL 00 IN THE Medical (18 mg/3 MORNING Branch mL) injection liraglutide 2022-0 Yes [id number] INJECT 1.8 [facility] (VICTOZA 3-24 MG UNDER ity of 3-SOILA) 0.6 00:00: THE SKIN [place] mg/0.1 mL 00 IN THE Medical (18 mg/3 MORNING Branch mL) injection liraglutide 2022-0 Yes [id number] INJECT 1.8 [facility] (VICTOZA 3-24 MG UNDER ity of 3-SOILA) 0.6 00:00: THE SKIN [place] mg/0.1 mL 00 IN THE Medical (18 mg/3 MORNING Branch mL) injection liraglutide 2022-0 Yes [id number] INJECT 1.8 [facility] (VICTOZA 3-24 MG UNDER ity of 3-SOILA) 0.6 00:00: THE SKIN [place] mg/0.1 mL 00 IN THE Medical (18 mg/3 MORNING Branch mL) injection liraglutide 2022-0 Yes [id number] INJECT 1.8 [facility] (VICTOZA 3-24 MG UNDER ity of 3-SOILA) 0.6 00:00: THE SKIN [place] mg/0.1 mL 00 IN THE Medical (18 mg/3 MORNING Branch mL) injection liraglutide 2022-0 Yes [id number] INJECT 1.8 [facility] (VICTOZA 3-24 MG UNDER ity of 3-SOILA) 0.6 00:00: THE SKIN [place] mg/0.1 mL 00 IN THE Medical (18 mg/3 MORNING Branch mL) injection liraglutide 2022-0 Yes [id number] INJECT 1.8 [facility] (VICTOZA 3-24 MG UNDER ity of 3-SOILA) 0.6 00:00: THE SKIN [place] mg/0.1 mL 00 IN THE Medical (18 mg/3 MORNING Branch mL) injection liraglutide 2022-0 Yes [id number] INJECT 1.8 [facility] (VICTOZA 3-24 MG UNDER ity of 3-SOILA) 0.6 00:00: THE SKIN [place] mg/0.1 mL 00 IN THE Medical (18 mg/3 MORNING Branch mL) injection liraglutide 2022-0 Yes [id number] INJECT 1.8 [facility] (VICTOZA 3-24 MG UNDER ity of 3-SOILA) 0.6 00:00: THE SKIN [place] mg/0.1 mL 00 IN THE Medical (18 mg/3 MORNING Branch mL) injection liraglutide 2022-0 Yes [id number] INJECT 1.8 [facility] (VICTOZA 3-24 MG UNDER ity of 3-SOILA) 0.6 00:00: THE SKIN [place] mg/0.1 mL 00 IN THE Medical (18 mg/3 MORNING Branch mL) injection liraglutide 2022-0 Yes [id number] INJECT 1.8 [facility] (VICTOZA 3-24 MG UNDER ity of 3-SOILA) 0.6 00:00: THE SKIN [place] mg/0.1 mL 00 IN THE Medical (18 mg/3 MORNING Branch mL) injection liraglutide 2022-0 Yes [id number] INJECT 1.8 [facility] (VICTOZA 3-24 MG UNDER ity of 3-SOILA) 0.6 00:00: THE SKIN [place] mg/0.1 mL 00 IN THE Medical (18 mg/3 MORNING Branch mL) injection liraglutide 2022-0 Yes [id number] INJECT 1.8 [facility] (VICTOZA 3-24 MG UNDER ity of 3-SOILA) 0.6 00:00: THE SKIN [place] mg/0.1 mL 00 IN THE Medical (18 mg/3 MORNING Branch mL) injection liraglutide 2022-0 Yes [id number] INJECT 1.8 [facility] (VICTOZA 3-24 MG UNDER ity of 3-SOILA) 0.6 00:00: THE SKIN [place] mg/0.1 mL 00 IN THE Medical (18 mg/3 MORNING Branch mL) injection liraglutide Yes [id number] INJECT 1.8 [facility] (VICTOZA 3-24 MG UNDER ity of 3-SOILA) 0.6 00:00: THE SKIN [place] mg/0.1 mL 00 IN THE Medical (18 mg/3 MORNING Branch mL) injection liraglutide Yes [id number] INJECT 1.8 [facility] (VICTOZA 3-24 MG UNDER ity of 3-SOILA) 0.6 00:00: THE SKIN [place] mg/0.1 mL 00 IN THE Medical (18 mg/3 MORNING Branch mL) injection IBUPROFEN 0 Yes [id number] TAKE 1 U n[facility] 800 mg 3-23 TABLET BY ity of tablet 00:00: MOUTH [place] 00 EVERY 6 Medical HOURS WITH Branch FOOD NEEDED FOR PAIN *DO NOT TAKE ASPIRIN* IBUPROFEN Yes [id number] TAKE 1 [facility] 800 mg 3-23 TABLET BY ity of tablet 00:00: MOUTH [place] 00 EVERY 6 Medical HOURS WITH Branch FOOD NEEDED FOR PAIN *DO NOT TAKE ASPIRIN* IBUPROFEN 0 Yes [id number] TAKE 1 [facility] 800 mg 3-23 TABLET BY ity of tablet 00:00: MOUTH [place] 00 EVERY 6 Medical HOURS WITH Branch FOOD NEEDED FOR PAIN *DO NOT TAKE ASPIRIN* IBUPROFEN 0 Yes [id number] TAKE 1 [facility] 800 mg 3-23 TABLET BY ity of tablet 00:00: MOUTH [place] 00 EVERY 6 Medical HOURS WITH Branch FOOD NEEDED FOR PAIN *DO NOT TAKE ASPIRIN* IBUPROFEN 2022-0 Yes [id number] TAKE 1 U [facility] 800 mg 3-23 TABLET BY ity of tablet 00:00: MOUTH [place] 00 EVERY 6 Medical HOURS WITH Branch FOOD NEEDED FOR PAIN *DO NOT TAKE ASPIRIN* IBUPROFEN 2022-0 Yes [id number] TAKE 1 [facility] 800 mg 3-23 TABLET BY ity of tablet 00:00: MOUTH [place] 00 EVERY 6 Medical HOURS WITH Branch FOOD NEEDED FOR PAIN *DO NOT TAKE ASPIRIN* IBUPROFEN 2022-0 Yes [id number] TAKE 1 [facility] 800 mg 3-23 TABLET BY ity of tablet 00:00: MOUTH [place] 00 EVERY 6 Medical HOURS WITH Branch FOOD NEEDED FOR PAIN *DO NOT TAKE ASPIRIN* IBUPROFEN 2022-0 Yes [id number] TAKE 1 [facility] 800 mg 3-23 TABLET BY ity of tablet 00:00: MOUTH [place] 00 EVERY 6 Medical HOURS WITH Branch FOOD NEEDED FOR PAIN *DO NOT TAKE ASPIRIN* IBUPROFEN 2022-0 Yes [id number] TAKE 1 [facility] 800 mg 3-23 TABLET BY ity of tablet 00:00: MOUTH [place] 00 EVERY 6 Medical HOURS WITH Branch FOOD NEEDED FOR PAIN *DO NOT TAKE ASPIRIN* IBUPROFEN 2022-0 Yes [id number] TAKE 1 [facility] 800 mg 3-23 TABLET BY ity of tablet 00:00: MOUTH [place] 00 EVERY 6 Medical HOURS WITH Branch FOOD NEEDED FOR PAIN *DO NOT TAKE ASPIRIN* IBUPROFEN 2022-0 Yes [id number] TAKE 1 [facility] 800 mg 3-23 TABLET BY ity of tablet 00:00: MOUTH [place] 00 EVERY 6 Medical HOURS WITH Branch FOOD NEEDED FOR PAIN *DO NOT TAKE ASPIRIN* IBUPROFEN 2022-0 Yes [id number] TAKE 1 [facility] 800 mg 3-23 TABLET BY ity of tablet 00:00: MOUTH [place] 00 EVERY 6 Medical HOURS WITH Branch FOOD NEEDED FOR PAIN *DO NOT TAKE ASPIRIN* IBUPROFEN 2022-0 Yes [id number] TAKE 1 [facility] 800 mg 3-23 TABLET BY ity of tablet 00:00: MOUTH [place] 00 EVERY 6 Medical HOURS WITH Branch FOOD NEEDED FOR PAIN *DO NOT TAKE ASPIRIN* IBUPROFEN 2022-0 Yes [id number] TAKE 1 [facility] 800 mg 3-23 TABLET BY ity of tablet 00:00: MOUTH [place] 00 EVERY 6 Medical HOURS WITH Branch FOOD NEEDED FOR PAIN *DO NOT TAKE ASPIRIN* IBUPROFEN 2022-0 Yes [id number] TAKE 1 [facility] 800 mg 3-23 TABLET BY ity of tablet 00:00: MOUTH [place] 00 EVERY 6 Medical HOURS WITH Branch FOOD NEEDED FOR PAIN *DO NOT TAKE ASPIRIN* IBUPROFEN 2022-0 Yes [id number] TAKE 1 [facility] 800 mg 3-23 TABLET BY ity of tablet 00:00: MOUTH [place] 00 EVERY 6 Medical HOURS WITH Branch FOOD NEEDED FOR PAIN *DO NOT TAKE ASPIRIN* IBUPROFEN 2022-0 2022- No [id number] TAKE 1 [facility] 800 mg 3-23 04-13 TABLET BY ity of tablet 00:00: 00:00 MOUTH [place] 00 :00 EVERY 6 Medical HOURS WITH Branch FOOD NEEDED FOR PAIN *DO NOT TAKE ASPIRIN* lurasidone 2022-0 Yes [id number] 40mg Take 1 [facility] (LATUDA) 40 3-15 tablet by [facility] of mg tablet 00:00: [place] 00 bedtime. [facility] lurasidone 2022-0 Yes [id number] 40mg Take 1 [facility] (LATUDA) 40 3-15 tablet by [facility] mg tablet 00:00: [place] 00 bedtime. [facility] lurasidone 2022-0 Yes [id number] 40mg Take 1 [facility] (LATUDA) 40 3-15 tablet by [facility] mg tablet 00:00: [place] 00 bedtime. [facility] lurasidone 2022-0 Yes [id number] 40mg Take 1 [facility] (LATUDA) 40 3-15 tablet by [facility] of mg tablet 00:00: [place] 00 bedtime. [facility] lurasidone 0 Yes [id number] 40mg Take 1 [facility] (LATUDA) 40 3-15 tablet by [facility] of mg tablet 00:00: [place] 00 bedtime. [facility] lurasidone 2022-0 Yes [id number] 40mg Take 1 [facility] (LATUDA) 40 3-15 tablet by [facility] mg tablet 00:00: [place] 00 bedtime. [facility] lurasidone 2022-0 Yes [id number] 40mg Take 1 [facility] (LATUDA) 40 3-15 tablet by [facility] of mg tablet 00:00: [place] 00 bedtime. [facility] lurasidone 2022-0 Yes [id number] 40mg Take 1 [facility] (LATUDA) 40 3-15 tablet by [facility] of mg tablet 00:00: [place] 00 bedtime. [facility] lurasidone 2022-0 Yes [id number] 40mg Take 1 [facility] (LATUDA) 40 3-15 tablet by [facility] mg tablet 00:00: [place] 00 bedtime. [facility] lurasidone 2022-0 Yes [id number] 40mg Take 1 [facility] (LATUDA) 40 3-15 tablet by [facility] mg tablet 00:00: [place] 00 bedtime. [facility] lurasidone 2022-0 Yes [id number] 40mg Take 1 [facility] (LATUDA) 40 3-15 tablet by [facility] of mg tablet 00:00: [place] 00 bedtime. [facility] lurasidone 2022-0 Yes [id number] 40mg Take 1 [facility] (LATUDA) 40 3-15 tablet by [facility] of mg tablet 00:00: [place] 00 bedtime. [facility] lurasidone 2022-0 Yes [id number] 40mg Take 1 [facility] (LATUDA) 40 3-15 tablet by [facility] of mg tablet 00:00: [place] 00 bedtime. [facility] lurasidone 2022-0 Yes [id number] 40mg Take 1 [facility] (LATUDA) 40 3-15 tablet by [facility] of mg tablet 00:00: [place] 00 bedtime. [facility] lurasidone 2022-0 Yes [id number] 40mg Take 1 [facility] (LATUDA) 40 3-15 tablet by [facility] of mg tablet 00:00: [place] 00 bedtime. [facility] lurasidone 2022-0 Yes [id number] 40mg Take 1 [facility] (LATUDA) 40 3-15 tablet by [facility] mg tablet 00:00: [place] bedtime. [facility] lurasidone 2022-0 Yes [id number] 40mg Take 1 [facility] (LATUDA) 40 3-15 tablet by [facility] mg tablet 00:00: [place] bedtime. [facility] lurasidone 2022-0 Yes [id number] 40mg Take 1 [facility] (LATUDA) 40 3-15 tablet by [facility] mg tablet 00:00: [place] 00 bedtime. [facility] lurasidone 2022-0 Yes [id number] 40mg Take 1 [facility] (LATUDA) 40 3-15 tablet by [facility] mg tablet 00:00: [place] 00 bedtime. [facility] lurasidone 2022-0 Yes [id number] 40mg Take 1 [facility] (LATUDA) 40 3-15 tablet by [facility] of mg tablet 00:00: [place] 00 bedtime. [facility] lurasidone 2022-0 Yes [id number] 40mg Take 1 [facility] (LATUDA) 40 3-15 tablet by [facility] mg tablet 00:00: [place] 00 bedtime. [facility] lurasidone 2022-0 Yes [id number] 40mg Take 1 [facility] (LATUDA) 40 3-15 tablet by [facility] mg tablet 00:00: [place] 00 bedtime. [facility] lurasidone 0 Yes [id number] 40mg Take 1 [facility] (LATUDA) 40 3-15 tablet by [facility] of mg tablet 00:00: [place] 00 bedtime. [facility] lurasidone 2023- No [id number] 40mg Take 1 [facility] (LATUDA) 40 3-15 05-03 tablet by it y of mg tablet 00:00: 00:00 mouth at [place] 00 :00 bedtime. Medical Branch HYDROcodone Yes [id number] TAKE 1 [facility] ers -acetaminop 3-13 TABLET BY ity of hen 10-325 00:00: MOUTH [place] mg tablet 00 EVERY 4 Medical HOURS Branch NEEDED FOR PAIN (SCALE 4-6) *MAY MAKE DROWSY* Indication s: chronic pain HYDROcodone Yes 2745 TAKE 1 [facility] ers -acetaminop 3-13 TABLET BY ity of hen 10-325 00:00: MOUTH [place] mg tablet 00 EVERY 4 Medical HOURS Branch NEEDED FOR PAIN (SCALE 4-6) *MAY MAKE DROWSY* Indication s: chronic pain HYDROcodone Yes 2745 TAKE 1 [facility] ers -acetaminop 3-13 TABLET BY ity of hen 10-325 00:00: MOUTH [place] mg tablet 00 EVERY 4 Medical HOURS Branch NEEDED FOR PAIN (SCALE 4-6) *MAY MAKE DROWSY* Indication s: chronic pain HYDROcodone Yes 2745 TAKE 1 [facility] ers -acetaminop 3-13 TABLET BY ity of hen 10-325 00:00: MOUTH [place] mg tablet 00 EVERY 4 Medical HOURS Branch NEEDED FOR PAIN (SCALE 4-6) *MAY MAKE DROWSY* Indication s: chronic pain HYDROcodone Yes 2745 TAKE 1 [facility] ers -acetaminop 3-13 TABLET BY ity of hen 10-325 00:00: MOUTH [place] mg tablet 00 EVERY 4 Medical HOURS Branch NEEDED FOR PAIN (SCALE 4-6) *MAY MAKE DROWSY* Indication s: chronic pain HYDROcodone Yes 2745 TAKE 1 [facility] ers -acetaminop 3-13 TABLET BY ity of hen 10-325 00:00: MOUTH [place] mg tablet 00 EVERY 4 Medical HOURS Branch NEEDED FOR PAIN (SCALE 4-6) *MAY MAKE DROWSY* Indication s: chronic pain HYDROcodone Yes 2745 TAKE 1 [facility] ers -acetaminop 3-13 TABLET BY ity of hen 10-325 00:00: MOUTH [place] mg tablet 00 EVERY 4 Medical HOURS Branch NEEDED FOR PAIN (SCALE 4-6) *MAY MAKE DROWSY* Indication s: chronic pain HYDROcodone Yes 2745 TAKE 1 [facility] ers -acetaminop 3-13 TABLET BY ity of hen 10-325 00:00: MOUTH [place] mg tablet 00 EVERY 4 Medical HOURS Branch NEEDED FOR PAIN (SCALE 4-6) *MAY MAKE DROWSY* Indication s: chronic pain HYDROcodone Yes 2745 TAKE 1 [facility] ers -acetaminop 3-13 TABLET BY ity of hen 10-325 00:00: MOUTH [place] mg tablet 00 EVERY 4 Medical HOURS Branch NEEDED FOR PAIN (SCALE 4-6) *MAY MAKE DROWSY* Indication s: chronic pain HYDROcodone Yes 2745 TAKE 1 [facility] ers -acetaminop 3-13 TABLET BY ity of hen 10-325 00:00: MOUTH [place] mg tablet 00 EVERY 4 Medical HOURS Branch NEEDED FOR PAIN (SCALE 4-6) *MAY MAKE DROWSY* Indication s: chronic pain HYDROcodone Yes 2745 TAKE 1 [facility] ers -acetaminop 3-13 TABLET BY ity of hen 10-325 00:00: MOUTH [place] mg tablet 00 EVERY 4 Medical HOURS Branch NEEDED FOR PAIN (SCALE 4-6) *MAY MAKE DROWSY* Indication s: chronic pain HYDROcodone Yes 2745 TAKE 1 [facility] ers -acetaminop 3-13 TABLET BY ity of hen 10-325 00:00: MOUTH [place] mg tablet 00 EVERY 4 Medical HOURS Branch NEEDED FOR PAIN (SCALE 4-6) *MAY MAKE DROWSY* Indication s: chronic pain HYDROcodone Yes 2745 TAKE 1 [facility] ers -acetaminop 3-13 TABLET BY ity of hen 10-325 00:00: MOUTH [place] mg tablet 00 EVERY 4 Medical HOURS Branch NEEDED FOR PAIN (SCALE 4-6) *MAY MAKE DROWSY* Indication s: chronic pain HYDROcodone Yes 2745 TAKE 1 [facility] ers -acetaminop 3-13 TABLET BY ity of hen 10-325 00:00: MOUTH [place] mg tablet 00 EVERY 4 Medical HOURS Branch NEEDED FOR PAIN (SCALE 4-6) *MAY MAKE DROWSY* Indication s: chronic pain HYDROcodone 0 Yes 2745 TAKE 1 [facility] ers -acetaminop 3-13 TABLET BY ity of hen 10-325 00:00: MOUTH [place] mg tablet 00 EVERY 4 Medical HOURS Branch NEEDED FOR PAIN (SCALE 4-6) *MAY MAKE DROWSY* Indication s: chronic pain HYDROcodone 0 Yes 2745 TAKE 1 [facility] ers -acetaminop 3-13 TABLET BY ity of hen 10-325 00:00: MOUTH [place] mg tablet 00 EVERY 4 Medical HOURS Branch NEEDED FOR PAIN (SCALE 4-6) *MAY MAKE DROWSY* Indication s: chronic pain HYDROcodone Yes 2745 TAKE 1 [facility] ers -acetaminop 3-13 TABLET BY ity of hen 10-325 00:00: MOUTH [place] mg tablet 00 EVERY 4 Medical HOURS Branch NEEDED FOR PAIN (SCALE 4-6) *MAY MAKE DROWSY* Indication s: chronic pain HYDROcodone 2022- No 2745 TAKE 1 [facility] vers -acetaminop 3-13 04-10 TABLET BY it y of hen 10-325 00:00: 00:00 MOUTH [place] mg tablet 00 :00 EVERY 4 Medical HOURS Branch NEEDED FOR PAIN (SCALE 4-6) *MAY MAKE DROWSY* Indication s: chronic pain VICTOZA Yes [id number] INJECT 1.8 [facility] 3-SOILA 0.6 3-09 MG UNDER ity of mg/0.1 mL 00:00: THE SKIN [place] (18 mg/3 00 IN THE Medical mL) MORNING Branch injection PROMETHAZIN Yes [id number] TAKE 1 [facility] E 25 mg 3-09 TABLET BY ity of tablet 00:00: MOUTH [place] 00 EVERY 6 Medical HOURS Branch NEEDED FOR NAUSEA AND VOMITING *MAY IMPAIR ALERTNESS* * POTASSIUM Yes [id number] TAKE 1 [facility] CHLORIDE 10 3-09 TABLET BY ity of mEq CR 00:00: MOUTH [place] tablet 00 DAILY WITH Medical A GLASS OF Branch WATER JARDIANCE Yes [id number] 25mg TAKE 1 [facility] 25 mg Tab 3-09 TABLET BY ity o f 00:00: MOUTH IN [place] 00 THE Medical MORNING Branch SERTRALINE Yes [id number] 200mg TAKE 2 [facility] 100 mg 3-09 TABLETS BY ity of tablet 00:00: MOUTH IN [place] THE Medical MORNING Branch ATORVASTATI Yes [id number] 40mg TAKE 1 [facility] N 40 mg 3-09 TABLET BY ity of tablet 00:00: MOUTH AT [place] 00 BEDTIME Medical Branch AMLODIPINE 0 Yes [id number] 10mg TAKE 1 U nivers 10 mg 3-09 TABLET BY ity of tablet 00:00: MOUTH [place] 00 EVERY Medical MORNING Branch TOUJEO Yes [id number] INJECT 72 [facility] SOLOSTAR 3-09 UNITS ity of U-300 00:00: UNDER THE [place] INSULIN 300 00 SKIN ONCE Med ical unit/mL DAILY IN Branch (1.5 mL) THE InPn EVENING (ADJUSTING DOSE BY 2 UNITS DAILY UNTIL FASTING BLOOD SUGAR LESS THAN 200) VICTOZA Yes [id number] INJECT 1.8 [facility] 3-SOILA 0.6 3-09 MG UNDER ity of mg/0.1 mL 00:00: THE SKIN [place] (18 mg/3 00 IN THE Medical mL) MORNING Branch injection PROMETHAZIN Yes [id number] TAKE 1 [facility] E 25 mg 3-09 TABLET BY ity of tablet 00:00: MOUTH [place] EVERY 6 Medical HOURS Branch NEEDED FOR NAUSEA AND VOMITING *MAY IMPAIR ALERTNESS* * POTASSIUM Yes [id number] TAKE 1 [facility] CHLORIDE 10 3-09 TABLET BY ity of mEq CR 00:00: MOUTH [place] tablet 00 DAILY WITH Medical A GLASS OF Branch WATER JARDIANCE Yes [id number] 25mg TAKE 1 [facility] 25 mg Tab 3-09 TABLET BY ity o f 00:00: MOUTH IN [place] THE Medical MORNING Branch SERTRALINE Yes [id number] 200mg TAKE 2 [facility] 100 mg 3-09 TABLETS BY ity of tablet 00:00: MOUTH IN [place] THE Medical MORNING Branch ATORVASTATI Yes [id number] 40mg TAKE 1 [facility] N 40 mg 3-09 TABLET BY ity of tablet 00:00: MOUTH AT [place] [address] BEDTIME Medical Branch AMLODIPINE 2022-0 Yes [id number] 10mg TAKE 1 U nivers 10 mg 3-09 TABLET BY ity of tablet 00:00: MOUTH [place] 00 EVERY Medical MORNING Branch TOUJEO Yes [id number] INJECT 72 [facility] SOLOSTAR 3-09 UNITS ity of U-300 00:00: UNDER THE [place] INSULIN 300 00 SKIN ONCE Med ical unit/mL DAILY IN Branch (1.5 mL) THE InPn EVENING (ADJUSTING DOSE BY 2 UNITS DAILY UNTIL FASTING BLOOD SUGAR LESS THAN 200) VICTOZA Yes [id number] INJECT 1.8 [facility] 3-SOILA 0.6 3-09 MG UNDER ity of mg/0.1 mL 00:00: THE SKIN [place] (18 mg/3 00 IN THE Medical mL) MORNING Branch injection PROMETHAZIN Yes [id number] TAKE 1 [facility] E 25 mg 3-09 TABLET BY ity of tablet 00:00: MOUTH EVERY 6 Medical HOURS Branch NEEDED FOR NAUSEA AND VOMITING *MAY IMPAIR ALERTNESS* * POTASSIUM Yes [id number] TAKE 1 [facility] CHLORIDE 10 3-09 TABLET BY ity of mEq CR 00:00: MOUTH [place] tablet 00 DAILY WITH Medical A GLASS OF Branch WATER JARDIANCE Yes [id number] 25mg TAKE 1 [facility] 25 mg Tab 3-09 TABLET BY ity o f 00:00: MOUTH IN [place] THE Medical MORNING Branch SERTRALINE 0 Yes [id number] 200mg TAKE 2 [facility] 100 mg 3-09 TABLETS BY ity of tablet 00:00: MOUTH IN [place] THE Medical MORNING Branch ATORVASTATI 0 Yes [id number] 40mg TAKE 1 [facility] N 40 mg 3-09 TABLET BY ity of tablet 00:00: MOUTH AT [place] 00 BEDTIME Medical Branch AMLODIPINE 2022-0 Yes [id number] 10mg TAKE 1 [facility] nivers 10 mg 3-09 TABLET BY ity of tablet 00:00: MOUTH EVERY Medical MORNING Branch TOUJEO Yes [id number] INJECT 72 [facility] [place] SOLOSTAR 3-09 UNITS ity of U-300 00:00: UNDER THE [place] INSULIN 300 00 SKIN ONCE Med ical unit/mL DAILY IN Branch (1.5 mL) THE InPn EVENING (ADJUSTING DOSE BY 2 UNITS DAILY UNTIL FASTING BLOOD SUGAR LESS THAN 200) VICTOZA Yes [id number] INJECT 1.8 [facility] 3-SOILA 0.6 3-09 MG UNDER ity of mg/0.1 mL 00:00: THE SKIN [place] (18 mg/3 00 IN THE Medical mL) MORNING Branch injection PROMETHAZIN Yes [id number] TAKE 1 [facility] E 25 mg 3-09 TABLET BY ity of tablet 00:00: MOUTH [place] 00 EVERY 6 Medical HOURS Branch NEEDED FOR NAUSEA AND VOMITING *MAY IMPAIR ALERTNESS* * POTASSIUM Yes [id number] TAKE 1 [facility] [place] CHLORIDE 10 3-09 TABLET BY ity of mEq CR 00:00: MOUTH [place] tablet 00 DAILY WITH Medical A GLASS OF Branch WATER JARDIANCE Yes [id number] 25mg TAKE 1 [facility] 25 mg Tab 3-09 TABLET BY ity o f 00:00: MOUTH IN [place] 00 THE Medical MORNING Branch SERTRALINE Yes [id number] 200mg TAKE 2 [facility] 100 mg 3-09 TABLETS BY ity of tablet 00:00: MOUTH IN [place] 00 THE Medical MORNING Branch ATORVASTATI Yes [id number] 40mg TAKE 1 [facility] N 40 mg 3-09 TABLET BY ity of tablet 00:00: MOUTH AT [place] 00 BEDTIME Medical Branch AMLODIPINE Yes [id number] 10mg TAKE 1 [facility] nivers 10 mg 3-09 TABLET BY ity of tablet 00:00: MOUTH [place] 00 EVERY Medical MORNING Branch TOUJEO Yes [id number] INJECT 72 [facility] SOLOSTAR 3-09 UNITS ity of U-300 00:00: UNDER THE [place] INSULIN 300 00 SKIN ONCE Med ical unit/mL DAILY IN Branch (1.5 mL) THE InPn EVENING (ADJUSTING DOSE BY 2 UNITS DAILY UNTIL FASTING BLOOD SUGAR LESS THAN 200) VICTOZA Yes [id number] INJECT 1.8 Univers 3-SOILA 0.6 3-09 MG UNDER ity of mg/0.1 mL 00:00: THE [place] (18 mg/3 00 IN THE Medical mL) MORNING Branch injection PROMETHAZIN Yes [id number] TAKE 1 [facility] E 25 mg 3-09 TABLET BY ity of tablet 00:00: MOUTH [place] 00 EVERY 6 Medical HOURS Branch NEEDED FOR NAUSEA AND VOMITING *MAY IMPAIR ALERTNESS* * POTASSIUM Yes [id number] TAKE 1 Un reinier CHLORIDE 10 3-09 TABLET BY ity of mEq CR 00:00: MOUTH [place] tablet 00 DAILY WITH Medical A GLASS OF [place] WATER JARDIANCE Yes [id number] 25mg TAKE 1 Un reinier 25 mg Tab 3-09 TABLET BY ity o f 00:00: MOUTH IN [place] THE Medical MORNING Branch SERTRALINE Yes [id number] 200mg TAKE 2 [facility] 100 mg 3-09 TABLETS BY ity of tablet 00:00: MOUTH IN [place] THE Medical MORNING Branch ATORVASTATI Yes [id number] 40mg TAKE 1 [facility] N 40 mg 3-09 TABLET BY ity of tablet 00:00: MOUTH AT [place] 00 BEDTIME Medical Branch AMLODIPINE Yes [id number] 10mg TAKE 1 U nivers 10 mg 3-09 TABLET BY ity of tablet 00:00: MOUTH 00 EVERY Medical MORNING Branch TOUJEO Yes [id number] INJECT 72 Un reinier SOLOSTAR 3-09 UNITS ity of U-300 00:00: UNDER THE [place] INSULIN 300 00 SKIN ONCE Med ical unit/mL DAILY IN Branch (1.5 mL) THE InPn EVENING (ADJUSTING DOSE BY 2 UNITS DAILY UNTIL FASTING BLOOD SUGAR LESS THAN 200) VICTOZA Yes [id number] INJECT 1.8 Univers 3-SOILA 0.6 3-09 MG UNDER ity of mg/0.1 mL 00:00: THE [place]IN [place] (18 mg/3 00 IN THE Medical mL) MORNING Branch injection PROMETHAZIN Yes [id number] TAKE 1 [facility] E 25 mg 3-09 TABLET BY ity of tablet 00:00: MOUTH [place] 00 EVERY 6 Medical HOURS Branch NEEDED FOR NAUSEA AND VOMITING *MAY IMPAIR ALERTNESS* * POTASSIUM Yes [id number] TAKE 1 [facility] CHLORIDE 10 3-09 TABLET BY [facility]y of mEq CR 00:00: MOUTH [place] tablet 00 DAILY WITH Medical A GL[place] OF [place] WATER JARDIANCE Yes [id number] 25mg TAKE 1 [facility] 25 mg Tab 3-09 TABLET BY ity o f 00:00: MOUTH IN [place] THE Medical MORNING Branch SERTRALINE Yes [id number] 200mg TAKE 2 [facility] 100 mg 3-09 TABLETS BY ity of tablet 00:00: MOUTH IN [place] 00 THE Medical MORNING Branch ATORVASTATI Yes [id number] 40mg TAKE 1 [facility] N 40 mg 3-09 TABLET BY ity of tablet 00:00: MOUTH AT [place] 00 BEDTIME Medical Branch AMLODIPINE Yes [id number] 10mg TAKE 1 [facility] 10 mg 3-09 TABLET BY ity of tablet 00:00: MOUTH EVERY Medical MORNING Branch TOUJEO Yes [id number] INJECT 72 [facility] SOLOSTAR 3-09 UNITS ity of U-300 00:00: UNDER THE [place] INSULIN 300 00 SKIN ONCE Med ical unit/mL DAILY IN Branch (1.5 mL) THE InPn EVENING (ADJUSTING DOSE BY 2 UNITS DAILY UNTIL FASTING BLOOD SUGAR LESS THAN 200) VICTOZA Yes [id number] INJECT 1.8 [facility] 3-SOILA 0.6 3-09 MG UNDER ity of mg/0.1 mL 00:00: THE SKIN [place] (18 mg/3 00 IN THE Medical mL) MORNING Branch injection PROMETHAZIN Yes [id number] TAKE 1 [facility] E 25 mg 3-09 TABLET BY ity of tablet 00:00: MOUTH EVERY 6 Medical HOURS Branch NEEDED FOR NAUSEA AND VOMITING *MAY IMPAIR ALERTNESS* * POTASSIUM Yes [id number] TAKE 1 [facility] CHLORIDE 10 3-09 TABLET BY ity of mEq CR 00:00: MOUTH [place] tablet 00 DAILY WITH Medical A GLASS OF Branch WATER JARDIANCE Yes [id number] 25mg TAKE 1 [facility] 25 mg Tab 3-09 TABLET BY ity o f 00:00: MOUTH IN [place] THE Medical MORNING Branch SERTRALINE Yes [id number] 200mg TAKE 2 [facility] 100 mg 3-09 TABLETS BY ity of tablet 00:00: MOUTH IN [place] THE Medical MORNING Branch ATORVASTATI Yes [id number] 40mg TAKE 1 [facility] N 40 mg 3-09 TABLET BY ity of tablet 00:00: MOUTH AT [place] 00 BEDTIME Medical Branch AMLODIPINE 0 Yes [id number] 10mg TAKE 1 [facility] 10 mg 3-09 TABLET BY ity of tablet 00:00: MOUTH [place] EVERY Medical MORNING Branch TOUJEO Yes [id number] INJECT 72 [facility] SOLOSTAR 3-09 UNITS ity of U-300 00:00: UNDER THE [place] INSULIN 300 00 SKIN ONCE Med ical unit/mL DAILY IN Branch (1.5 mL) THE InPn EVENING (ADJUSTING DOSE BY 2 UNITS DAILY UNTIL FASTING BLOOD SUGAR LESS THAN 200) VICTOZA Yes [id number] INJECT 1.8 [facility] 3-SOILA 0.6 3-09 MG UNDER ity of mg/0.1 mL 00:00: THE [place]IN [place] (18 mg/3 00 IN THE Medical mL) MORNING Branch injection PROMETHAZIN 0 Yes [id number] TAKE 1 [facility] E 25 mg 3-09 TABLET BY ity of tablet 00:00: MOUTH EVERY 6 Medical HOURS Branch NEEDED FOR NAUSEA AND VOMITING *MAY IMPAIR ALERTNESS* * POTASSIUM Yes [id number] TAKE 1 [facility] CHLORIDE 10 3-09 TABLET BY ity of mEq CR 00:00: MOUTH [place] tablet 00 DAILY WITH Medical A GLASS OF Branch WATER JARDIANCE 0 Yes [id number] 25mg TAKE 1 [facility] 25 mg Tab 3-09 TABLET BY ity o f 00:00: MOUTH IN [place] 00 THE Medical MORNING Branch SERTRALINE 0 Yes [id number] 200mg TAKE 2 [facility] 100 mg 3-09 TABLETS BY ity of tablet 00:00: MOUTH IN [place] 00 THE Medical MORNING Branch ATORVASTATI 0 Yes [id number] 40mg TAKE 1 [facility] N 40 mg 3-09 TABLET BY ity of tablet 00:00: MOUTH AT [place] 00 BEDTIME Medical Branch AMLODIPINE 2022-0 Yes [id number] 10mg TAKE 1 [facility] 10 mg 3-09 TABLET BY ity of tablet 00:00: MOUTH [place] 00 EVERY Medical MORNING Branch TOUJEO 0 Yes [id number] INJECT 72 [facility] SOLOSTAR 3-09 UNITS ity of U-300 00:00: UNDER THE [place] INSULIN 300 00 SKIN ONCE Med ical unit/mL DAILY IN Branch (1.5 mL) THE InPn EVENING (ADJUSTING DOSE BY 2 UNITS DAILY UNTIL FASTING BLOOD SUGAR LESS THAN 200) VICTOZA 0 Yes [id number] INJECT 1.8 [facility] 3-SOILA 0.6 3-09 MG UNDER ity of mg/0.1 mL 00:00: THE [place]IN [place] (18 mg/3 00 IN THE Medical mL) MORNING Branch injection PROMETHAZIN 2022- Yes [id number] TAKE 1 [facility] E 25 mg 3-09 TABLET BY ity of tablet 00:00: MOUTH [place] 00 EVERY 6 Medical HOURS Branch NEEDED FOR NAUSEA AND VOMITING *MAY IMPAIR ALERTNESS* * POTASSIUM 2022- Yes [id number] TAKE 1 [facility] CHLORIDE 10 3-09 TABLET BY ity of mEq CR 00:00: MOUTH [place] tablet 00 DAILY WITH Medical A [place] WATER JARDIANCE 0 Yes [id number] 25mg TAKE 1 [facility] 25 mg Tab 3-09 TABLET BY ity o f 00:00: MOUTH IN [place] 00 THE Medical MORNING Branch SERTRALINE Yes [id number] 200mg TAKE 2 [facility] 100 mg 3-09 TABLETS BY ity of tablet 00:00: MOUTH IN [place] 00 THE Medical MORNING Branch ATORVASTATI Yes [id number] 40mg TAKE 1 [facility] N 40 mg 3-09 TABLET BY ity of tablet 00:00: MOUTH AT [place] 00 BEDTIME Medical Branch AMLODIPINE 2022-0 Yes [id number] 10mg TAKE 1 [facility] 10 mg 3-09 TABLET BY ity of tablet 00:00: MOUTH [place] 00 EVERY Medical MORNING Branch TOUJEO Yes [id number] INJECT 72 [facility] SOLOSTAR 3-09 UNITS ity of U-300 00:00: UNDER THE [place] INSULIN 300 00 SKIN ONCE Med ical unit/mL DAILY IN Branch (1.5 mL) THE InPn EVENING (ADJUSTING DOSE BY 2 UNITS DAILY UNTIL FASTING BLOOD SUGAR LESS THAN 200) VICTOZA 0 Yes [id number] INJECT 1.8 [facility] 3-SOILA 0.6 3-09 MG UNDER ity of mg/0.1 mL 00:00: THE SKIN [place] (18 mg/3 00 IN THE Medical mL) MORNING Branch injection PROMETHAZIN Yes [id number] TAKE 1 [facility] E 25 mg 3-09 TABLET BY ity of tablet 00:00: MOUTH [place] 00 EVERY 6 Medical HOURS Branch NEEDED FOR NAUSEA AND VOMITING *MAY IMPAIR ALERTNESS* * POTASSIUM 2022-0 Yes [id number] TAKE 1 [facility] CHLORIDE 10 3-09 TABLET BY ity of mEq CR 00:00: MOUTH [place] tablet 00 DAILY WITH Medical A [place] WATER JARDIANCE Yes [id number] 25mg TAKE 1 [facility] 25 mg Tab 3-09 TABLET BY ity o f 00:00: MOUTH IN [place] THE Medical MORNING Branch SERTRALINE Yes [id number] 200mg TAKE 2 [facility] 100 mg 3-09 TABLETS BY ity of tablet 00:00: MOUTH IN [place] THE Medical MORNING Branch ATORVASTATI Yes [id number] 40mg TAKE 1 [facility] N 40 mg 3-09 TABLET BY ity of tablet 00:00: MOUTH AT [place] [address] BEDTIME Medical Branch AMLODIPINE 0 Yes [id number] 10mg TAKE 1 [facility] 10 mg 3-09 TABLET BY ity of tablet 00:00: MOUTH [place] EVERY Medical MORNING Branch TOUJEO Yes [id number] INJECT 72 [facility] SOLOSTAR 3-09 UNITS ity of U-300 00:00: UNDER THE [place] INSULIN 300 00 SKIN ONCE Med ical unit/mL DAILY IN Branch (1.5 mL) THE InPn EVENING (ADJUSTING DOSE BY 2 UNITS DAILY UNTIL FASTING BLOOD SUGAR LESS THAN 200) PROMETHAZIN Yes [id number] TAKE 1 [facility] E 25 mg 3-09 TABLET BY ity of tablet 00:00: MOUTH [place] [address] EVERY 6 Medical HOURS Branch NEEDED FOR NAUSEA AND VOMITING *MAY IMPAIR ALERTNESS* * POTASSIUM Yes [id number] TAKE 1 [facility] CHLORIDE 10 3-09 TABLET BY ity of mEq CR 00:00: MOUTH [place] tablet 00 DAILY WITH Medical A GLASS OF Branch WATER JARDIANCE Yes [id number] 25mg TAKE 1 [facility] 25 mg Tab 3-09 TABLET BY ity o f 00:00: MOUTH IN [place] THE Medical MORNING Branch SERTRALINE Yes [id number] 200mg TAKE 2 [facility] 100 mg 3-09 TABLETS BY ity of tablet 00:00: MOUTH IN [place] THE Medical MORNING Branch ATORVASTATI 0 Yes [id number] 40mg TAKE 1 [facility] N 40 mg 3-09 TABLET BY ity of tablet 00:00: MOUTH AT [place] [address] BEDTIME Medical Branch AMLODIPINE 2022-0 Yes [id number] 10mg TAKE 1 [facility] 10 mg 3-09 TABLET BY ity of tablet 00:00: MOUTH [place] EVERY Medical MORNING Branch TOUJEO 2023-0 Yes [id number] INJECT 72 [facility] SOLOSTAR 3-09 UNITS ity of U-300 00:00: UNDER THE [place] INSULIN 300 00 SKIN ONCE Med ical unit/mL DAILY IN Branch (1.5 mL) THE InPn EVENING (ADJUSTING DOSE BY 2 UNITS DAILY UNTIL FASTING BLOOD SUGAR LESS THAN 200) PROMETHAZIN 2022-0 Yes [id number] TAKE 1 [facility] E 25 mg 3-09 TABLET BY ity of tablet 00:00: MOUTH [place] 00 EVERY 6 Medical HOURS Branch NEEDED FOR NAUSEA AND VOMITING *MAY IMPAIR ALERTNESS* * POTASSIUM 2022-0 Yes [id number] TAKE 1 [facility] CHLORIDE 10 3-09 TABLET BY ity of mEq CR 00:00: MOUTH [place] tablet 00 DAILY WITH Medical A [place] WATER JARDIANCE 2022-0 Yes [id number] 25mg TAKE 1 [facility] 25 mg Tab 3-09 TABLET BY ity o f 00:00: MOUTH IN [place] 00 THE Medical MORNING Branch SERTRALINE 2022-0 Yes [id number] 200mg TAKE 2 [facility] 100 mg 3-09 TABLETS BY ity of tablet 00:00: MOUTH IN [place] 00 THE Medical MORNING Branch ATORVASTATI 2022-0 Yes [id number] 40mg TAKE 1 [facility] N 40 mg 3-09 TABLET BY ity of tablet 00:00: MOUTH AT [place] 00 BEDTIME Medical Branch AMLODIPINE 2022-0 Yes [id number] 10mg TAKE 1 [facility] 10 mg 3-09 TABLET BY ity of tablet 00:00: MOUTH [place] 00 EVERY Medical MORNING Branch TOUJEO 2022-0 Yes [id number] INJECT 72 [facility] SOLOSTAR 3-09 UNITS ity of U-300 00:00: UNDER THE [place] INSULIN 300 00 SKIN ONCE Med ical unit/mL DAILY IN Branch (1.5 mL) THE InPn EVENING (ADJUSTING DOSE BY 2 UNITS DAILY UNTIL FASTING BLOOD SUGAR LESS THAN 200) PROMETHAZIN 2022-0 Yes [id number] TAKE 1 [facility] E 25 mg 3-09 TABLET BY ity of tablet 00:00: MOUTH [place] 00 EVERY 6 Medical HOURS Branch NEEDED FOR NAUSEA AND VOMITING *MAY IMPAIR ALERTNESS* * POTASSIUM 2022-0 Yes [id number] TAKE 1 [facility] CHLORIDE 10 3-09 TABLET BY ity of mEq CR 00:00: MOUTH [place] tablet 00 DAILY WITH Medical A [place] WATER JARDIANCE Yes [id number] 25mg TAKE 1 [facility] 25 mg Tab 3-09 TABLET BY ity o f 00:00: MOUTH IN [place] THE Medical MORNING Branch SERTRALINE Yes [id number] 200mg TAKE 2 [facility] 100 mg 3-09 TABLETS BY ity of tablet 00:00: MOUTH IN [place] THE Medical MORNING Branch ATORVASTATI Yes [id number] 40mg TAKE 1 [facility] N 40 mg 3-09 TABLET BY ity of tablet 00:00: MOUTH AT [place] 00 BEDTIME Medical Branch AMLODIPINE Yes [id number] 10mg TAKE 1 [facility] 10 mg 3-09 TABLET BY ity of tablet 00:00: MOUTH [place] EVERY Medical MORNING Branch TOUJEO Yes [id number] INJECT 72 [facility] SOLOSTAR 3-09 UNITS ity of U-300 00:00: UNDER THE [place] INSULIN 300 00 SKIN ONCE Med ical unit/mL DAILY IN Branch (1.5 mL) THE InPn EVENING (ADJUSTING DOSE BY 2 UNITS DAILY UNTIL FASTING BLOOD SUGAR LESS THAN 200) PROMETHAZIN Yes [id number] TAKE 1 [facility] E 25 mg 3-09 TABLET BY ity of tablet 00:00: MOUTH [place] EVERY 6 Medical HOURS Branch NEEDED FOR NAUSEA AND VOMITING *MAY IMPAIR ALERTNESS* * POTASSIUM Yes [id number] TAKE 1 [facility] CHLORIDE 10 3-09 TABLET BY ity of mEq CR 00:00: MOUTH [place] tablet 00 DAILY WITH Medical A [place] WATER JARDIANCE Yes [id number] 25mg TAKE 1 [facility] 25 mg Tab 3-09 TABLET BY ity o f 00:00: MOUTH IN [place] THE Medical MORNING Branch SERTRALINE Yes [id number] 200mg TAKE 2 [facility] 100 mg 3-09 TABLETS BY ity of tablet 00:00: MOUTH IN [place] THE Medical MORNING Branch ATORVASTATI Yes [id number] 40mg TAKE 1 [facility] N 40 mg 3-09 TABLET BY ity of tablet 00:00: MOUTH AT [place] [address] BEDTIME Medical Branch AMLODIPINE 0 Yes [id number] 10mg TAKE 1 [facility] 10 mg 3-09 TABLET BY ity of tablet 00:00: MOUTH [place] EVERY Medical MORNING Branch TOUJEO Yes [id number] INJECT 72 [facility] SOLOSTAR 3-09 UNITS ity of U-300 00:00: UNDER THE [place] INSULIN 300 00 SKIN ONCE Med ical unit/mL DAILY IN Branch (1.5 mL) THE InPn EVENING (ADJUSTING DOSE BY 2 UNITS DAILY UNTIL FASTING BLOOD SUGAR LESS THAN 200) PROMETHAZIN 2022-0 Yes [id number] TAKE 1 [facility] E 25 mg 3-09 TABLET BY ity of tablet 00:00: MOUTH [place] 00 EVERY 6 Medical HOURS Branch NEEDED FOR NAUSEA AND VOMITING *MAY IMPAIR ALERTNESS* * POTASSIUM 2022-0 Yes [id number] TAKE 1 [facility] CHLORIDE 10 3-09 TABLET BY ity of mEq CR 00:00: MOUTH [place] tablet 00 DAILY WITH Medical A [place] OF [place] WATER JARDIANCE Yes [id number] 25mg TAKE 1 [facility] 25 mg Tab 3-09 TABLET BY ity o f 00:00: MOUTH IN [place] 00 THE Medical MORNING Branch SERTRALINE 2022-0 Yes [id number] 200mg TAKE 2 [facility] 100 mg 3-09 TABLETS BY ity of tablet 00:00: MOUTH IN [place] [address] THE Medical MORNING Branch ATORVASTATI 0 Yes [id number] 40mg TAKE 1 [facility] N 40 mg 3-09 TABLET BY ity of tablet 00:00: MOUTH AT [place] 00 BEDTIME Medical Branch AMLODIPINE 2022-0 Yes [id number] 10mg TAKE 1 [facility] 10 mg 3-09 TABLET BY ity of tablet 00:00: MOUTH [place] 00 EVERY Medical MORNING Branch TOUJEO 2022-0 Yes [id number] INJECT 72 [facility] SOLOSTAR 3-09 UNITS ity of U-300 00:00: UNDER THE [place] INSULIN 300 00 SKIN ONCE Med ical unit/mL DAILY IN Branch (1.5 mL) THE InPn EVENING (ADJUSTING DOSE BY 2 UNITS DAILY UNTIL FASTING BLOOD SUGAR LESS THAN 200) PROMETHAZIN 2022-0 Yes [id number] TAKE 1 [facility] E 25 mg 3-09 TABLET BY ity of tablet 00:00: MOUTH [place] 00 EVERY 6 Medical HOURS Branch NEEDED FOR NAUSEA AND VOMITING *MAY IMPAIR ALERTNESS* * POTASSIUM 2022-0 Yes [id number] TAKE 1 [facility] CHLORIDE 10 3-09 TABLET BY ity of mEq CR 00:00: MOUTH [place] tablet 00 DAILY WITH Medical A [place] OF [place] WATER JARDIANCE Yes [id number] 25mg TAKE 1 [facility] 25 mg Tab 3-09 TABLET BY ity o f 00:00: MOUTH IN [place] THE Medical MORNING Branch SERTRALINE Yes [id number] 200mg TAKE 2 [facility] 100 mg 3-09 TABLETS BY ity of tablet 00:00: MOUTH IN [place] THE Medical MORNING Branch ATORVASTATI Yes [id number] 40mg TAKE 1 [facility] N 40 mg 3-09 TABLET BY ity of tablet 00:00: MOUTH AT [place] [address] BEDTIME Medical Branch AMLODIPINE 0 Yes [id number] 10mg TAKE 1 [facility] 10 mg 3-09 TABLET BY ity of tablet 00:00: MOUTH [place] EVERY Medical MORNING Branch TOUO Yes [id number] INJECT 72 [facility] SOLOSTAR 3-09 UNITS ity of U-300 00:00: UNDER THE [place] INSULIN 300 00 SKIN ONCE Med ical unit/mL DAILY IN Branch (1.5 mL) THE InPn EVENING (ADJUSTING DOSE BY 2 UNITS DAILY UNTIL FASTING BLOOD SUGAR LESS THAN 200) PROMETHAZIN Yes [id number] TAKE 1 [facility] E 25 mg 3-09 TABLET BY ity of tablet 00:00: MOUTH [place] [address] EVERY 6 Medical HOURS Branch NEEDED FOR NAUSEA AND VOMITING *MAY IMPAIR ALERTNESS* * POTASSIUM Yes [id number] TAKE 1 [facility] CHLORIDE 10 3-09 TABLET BY ity of mEq CR 00:00: MOUTH [place] tablet 00 DAILY WITH Medical A GL[place] OF [place] WATER JARDIANCE Yes [id number] 25mg TAKE 1 [facility] 25 mg Tab 3-09 TABLET BY ity o f 00:00: MOUTH IN [place] THE Medical MORNING Branch SERTRALINE 2022- Yes [id number] 200mg TAKE 2 [facility] 100 mg 3-09 TABLETS BY ity of tablet 00:00: MOUTH IN [place] THE Medical MORNING Branch ATORVASTATI Yes [id number] 40mg TAKE 1 [facility] N 40 mg 3-09 TABLET BY ity of tablet 00:00: MOUTH AT [place] [address] BEDTIME Medical Branch AMLODIPINE 2022-0 Yes [id number] 10mg TAKE 1 [facility] 10 mg 3-09 TABLET BY ity of tablet 00:00: MOUTH [place] 00 EVERY Medical MORNING Branch TOUO Yes [id number] INJECT 72 [facility] SOLOSTAR 3-09 UNITS ity of U-300 00:00: UNDER THE [place] INSULIN 300 00 SKIN ONCE Med ical unit/mL DAILY IN Branch (1.5 mL) THE InPn EVENING (ADJUSTING DOSE BY 2 UNITS DAILY UNTIL FASTING BLOOD SUGAR LESS THAN 200) PROMETHAZIN 2022-0 Yes [id number] TAKE 1 [facility] E 25 mg 3-09 TABLET BY ity of tablet 00:00: MOUTH [place] 00 EVERY 6 Medical HOURS Branch NEEDED FOR NAUSEA AND VOMITING *MAY IMPAIR ALERTNESS* * POTASSIUM 2022-0 Yes [id number] TAKE 1 [facility] CHLORIDE 10 3-09 TABLET BY ity of mEq CR 00:00: MOUTH [place] tablet 00 DAILY WITH Medical A GL[place] OF [place] WATER JARDIANCE 2022-0 Yes [id number] 25mg TAKE 1 [facility] 25 mg Tab 3-09 TABLET BY ity o f 00:00: MOUTH IN [place] 00 THE Medical MORNING Branch SERTRALINE 2022-0 Yes [id number] 200mg TAKE 2 [facility] 100 mg 3-09 TABLETS BY ity of tablet 00:00: MOUTH IN [place] 00 THE Medical MORNING Branch ATORVASTATI 2022-0 Yes [id number] 40mg TAKE 1 [facility] N 40 mg 3-09 TABLET BY ity of tablet 00:00: MOUTH AT [place] 00 BEDTIME Medical Branch AMLODIPINE 2022-0 Yes [id number] 10mg TAKE 1 [facility] 10 mg 3-09 TABLET BY ity of tablet 00:00: MOUTH [place] 00 EVERY Medical MORNING Branch TOUMAGGIEO 0 Yes [id number] INJECT 72 [facility] SOLOSTAR 3-09 UNITS ity of U-300 00:00: UNDER THE [place] INSULIN 300 00 SKIN ONCE Med ical unit/mL DAILY IN Branch (1.5 mL) THE InPn EVENING (ADJUSTING DOSE BY 2 UNITS DAILY UNTIL FASTING BLOOD SUGAR LESS THAN 200) PROMETHAZIN 2022-0 Yes [id number] TAKE 1 [facility] E 25 mg 3-09 TABLET BY ity of tablet 00:00: MOUTH [place] 00 EVERY 6 Medical HOURS Branch NEEDED FOR NAUSEA AND VOMITING *MAY IMPAIR ALERTNESS* * POTASSIUM 2022-0 Yes [id number] TAKE 1 [facility] CHLORIDE 10 3-09 TABLET BY ity of mEq CR 00:00: MOUTH [place] tablet 00 DAILY WITH Medical A [place] OF [place] WATER JARDIANCE 0 Yes [id number] 25mg TAKE 1 [facility] 25 mg Tab 3-09 TABLET BY ity o f 00:00: MOUTH IN [place] THE Medical MORNING Branch SERTRALINE 2022-0 Yes [id number] 200mg TAKE 2 [facility] 100 mg 3-09 TABLETS BY ity of tablet 00:00: MOUTH IN [place] THE Medical MORNING Branch ATORVASTATI 2022-0 Yes [id number] 40mg TAKE 1 [facility] N 40 mg 3-09 TABLET BY ity of tablet 00:00: MOUTH AT [place] 00 BEDTIME Medical Branch AMLODIPINE 2022-0 Yes [id number] 10mg TAKE 1 [facility] 10 mg 3-09 TABLET BY ity of tablet 00:00: MOUTH [place] EVERY Medical MORNING Branch TOUJEO Yes [id number] INJECT 72 [facility] SOLOSTAR 3-09 UNITS ity of U-300 00:00: UNDER THE [place] INSULIN 300 00 SKIN ONCE Med ical unit/mL DAILY IN [place] (1.5 mL) THE InPn EVENING (ADJUSTING DOSE BY 2 UNITS DAILY UNTIL FASTING BLOOD SUGAR LESS THAN 200) POTASSIUM 2022-0 Yes [id number] TAKE 1 [facility] CHLORIDE 10 3-09 TABLET BY ity of mEq CR 00:00: MOUTH [place] tablet 00 DAILY WITH Medical A GLASS OF [place] WATER JARDIANCE Yes [id number] 25mg TAKE 1 [facility] 25 mg Tab 3-09 TABLET BY ity o f 00:00: MOUTH IN [place] THE Medical MORNING Branch SERTRALINE 2022-0 Yes [id number] 200mg TAKE 2 [facility] 100 mg 3-09 TABLETS BY ity of tablet 00:00: MOUTH IN [place] THE Medical MORNING Branch ATORVASTATI 2022-0 Yes [id number] 40mg TAKE 1 [facility] N 40 mg 3-09 TABLET BY ity of tablet 00:00: MOUTH AT [place] BEDTIME Medical Branch AMLODIPINE 2022-0 Yes [id number] 10mg TAKE 1 [facility] 10 mg 3-09 TABLET BY ity of tablet 00:00: MOUTH [place] EVERY Medical MORNING Branch TOUJEO 0 Yes [id number] INJECT 72 [facility] SOLOSTAR 3-09 UNITS ity of U-300 00:00: UNDER THE [place] INSULIN 300 00 SKIN ONCE Med ical unit/mL DAILY IN Branch (1.5 mL) THE InPn EVENING (ADJUSTING DOSE BY 2 UNITS DAILY UNTIL FASTING BLOOD SUGAR LESS THAN 200) POTASSIUM 2022-0 Yes [id number] TAKE 1 [facility] CHLORIDE 10 3-09 TABLET BY ity of mEq CR 00:00: MOUTH [place] tablet 00 DAILY WITH Medical A GLASS OF [place] WATER JARDIANCE 0 Yes [id number] 25mg TAKE 1 [facility] 25 mg Tab 3-09 TABLET BY ity o f 00:00: MOUTH IN [place] 00 THE Medical MORNING Branch SERTRALINE 2022-0 Yes [id number] 200mg TAKE 2 [facility] 100 mg 3-09 TABLETS BY ity of tablet 00:00: MOUTH IN [place] THE Medical MORNING Branch ATORVASTATI 2022-0 Yes [id number] 40mg TAKE 1 [facility] N 40 mg 3-09 TABLET BY ity of tablet 00:00: MOUTH AT [place] [address] BEDTIME Medical Branch AMLODIPINE 2022-0 Yes [id number] 10mg TAKE 1 [facility] 10 mg 3-09 TABLET BY ity of tablet 00:00: MOUTH [place] [address] EVERY Medical MORNING Branch TOUJEO 0 Yes [id number] INJECT 72 [facility] SOLOSTAR 3-09 UNITS ity of U-300 00:00: UNDER THE [place] INSULIN 300 00 SKIN ONCE Med ical unit/mL DAILY IN Branch (1.5 mL) THE InPn EVENING (ADJUSTING DOSE BY 2 UNITS DAILY UNTIL FASTING BLOOD SUGAR LESS THAN 200) POTASSIUM 2022-0 Yes [id number] TAKE 1 [facility] CHLORIDE 10 3-09 TABLET BY ity of mEq CR 00:00: MOUTH [place] tablet 00 DAILY WITH Medical A GLASS OF [place] WATER JARDIANCE Yes [id number] 25mg TAKE 1 [facility] 25 mg Tab 3-09 TABLET BY ity o f 00:00: MOUTH IN [place] THE Medical MORNING Branch SERTRALINE 2022-0 Yes [id number] 200mg TAKE 2 [facility] 100 mg 3-09 TABLETS BY ity of tablet 00:00: MOUTH IN [place] THE Medical MORNING Branch ATORVASTATI 2022-0 Yes [id number] 40mg TAKE 1 [facility] N 40 mg 3-09 TABLET BY ity of tablet 00:00: MOUTH AT [place] [address] BEDTIME Medical Branch AMLODIPINE 2022-0 Yes [id number] 10mg TAKE 1 [facility] 10 mg 3-09 TABLET BY ity of tablet 00:00: MOUTH EVERY Medical MORNING Branch TOUJEO Yes [id number] INJECT 72 [facility] SOLOSTAR 3-09 UNITS ity of U-300 00:00: UNDER THE [place] INSULIN 300 00 SKIN ONCE Med ical unit/mL DAILY IN Branch (1.5 mL) THE InPn EVENING (ADJUSTING DOSE BY 2 UNITS DAILY UNTIL FASTING BLOOD SUGAR LESS THAN 200) POTASSIUM 2022-0 Yes [id number] TAKE 1 [facility] CHLORIDE 10 3-09 TABLET BY ity of mEq CR 00:00: MOUTH [place] tablet 00 DAILY WITH Medical A GLASS OF [place] WATER JARDIANCE 0 Yes [id number] 25mg TAKE 1 [facility] 25 mg Tab 3-09 TABLET BY ity o f 00:00: MOUTH IN [place] THE Medical MORNING Branch SERTRALINE 2022-0 Yes [id number] 200mg TAKE 2 [facility] 100 mg 3-09 TABLETS BY ity of tablet 00:00: MOUTH IN [place] THE Medical MORNING Branch ATORVASTATI 2022-0 Yes [id number] 40mg TAKE 1 [facility] N 40 mg 3-09 TABLET BY ity of tablet 00:00: MOUTH AT [place] [address] BEDTIME Medical Branch AMLODIPINE 2022-0 Yes [id number] 10mg TAKE 1 [facility] 10 mg 3-09 TABLET BY ity of tablet 00:00: MOUTH [place] EVERY Medical MORNING Branch TOUJEO 0 Yes [id number] INJECT 72 [facility] SOLOSTAR 3-09 UNITS ity of U-300 00:00: UNDER THE [place] INSULIN 300 00 SKIN ONCE Med ical unit/mL DAILY IN Branch (1.5 mL) THE InPn EVENING (ADJUSTING DOSE BY 2 UNITS DAILY UNTIL FASTING BLOOD SUGAR LESS THAN 200) JARDIANCE 2022-0 Yes [id number] 25mg TAKE 1 [facility] 25 mg Tab 3-09 TABLET BY ity o f 00:00: MOUTH IN [place] THE Medical MORNING Branch SERTRALINE 2022-0 Yes [id number] 200mg TAKE 2 [facility] 100 mg 3-09 TABLETS BY ity of tablet 00:00: MOUTH IN [place] THE Medical MORNING Branch ATORVASTATI 2022-0 Yes [id number] 40mg TAKE 1 [facility] N 40 mg 3-09 TABLET BY ity of tablet 00:00: MOUTH AT [place] [address] BEDTIME Medical Branch AMLODIPINE 2022-0 Yes [id number] 10mg TAKE 1 [facility] n[facility] 10 mg 3-09 TABLET BY ity of tablet 00:00: MOUTH [place] EVERY Medical MORNING Branch [facility] Yes [id number] INJECT 72 Un [facility] SOLOSTAR 3-09 UNITS ity of U-300 00:00: UNDER THE [place] INSULIN 300 00 SKIN ONCE Med ical unit/mL DAILY IN Branch (1.5 mL) THE InPn EVENING (ADJUSTING DOSE BY 2 UNITS DAILY UNTIL FASTING BLOOD SUGAR LESS THAN 200) JARDIANCE 2022-0 Yes [id number] 25mg TAKE 1 [facility] 25 mg Tab 3-09 TABLET BY ity o f 00:00: MOUTH IN [place] [address] THE Medical MORNING Branch SERTRALINE 2022-0 Yes [id number] 200mg TAKE 2 [facility] 100 mg 3-09 TABLETS BY ity of tablet 00:00: MOUTH IN [place] [address] THE Medical MORNING Branch ATORVASTATI 0 Yes [id number] 40mg TAKE 1 [facility] N 40 mg 3-09 TABLET BY ity of tablet 00:00: MOUTH AT [place] [address] BEDTIME Medical Branch AMLODIPINE 2022-0 Yes [id number] 10mg TAKE 1 [facility] nivers 10 mg 3-09 TABLET BY ity of tablet 00:00: MOUTH [place] EVERY Medical MORNING Branch [facility] Yes [id number] INJECT 72 [facility] SOLOSTAR 3-09 UNITS ity of U-300 00:00: UNDER THE [place] INSULIN 300 00 SKIN ONCE Med ical unit/mL DAILY IN Branch (1.5 mL) THE In EVENING (ADJUSTING DOSE BY 2 UNITS DAILY UNTIL FASTING BLOOD SUGAR LESS THAN 200) JARDIANCE 2022-0 Yes [id number] 25mg TAKE 1 [facility] 25 mg Tab 3-09 TABLET BY ity o f 00:00: MOUTH IN [place] [address] THE Medical MORNING Branch SERTRALINE 2022-0 Yes [id number] 200mg TAKE 2 [facility] 100 mg 3-09 TABLETS BY ity of tablet 00:00: MOUTH IN [place] [address] THE Medical MORNING Branch ATORVASTATI 2022-0 Yes [id number] 40mg TAKE 1 [facility] N 40 mg 3-09 TABLET BY ity of tablet 00:00: MOUTH AT [place] [address] BEDTIME Medical Branch AMLODIPINE 2022-0 Yes [id number] 10mg TAKE 1 [facility]ivers 10 mg 3-09 TABLET BY ity of tablet 00:00: MOUTH [place] EVERY Medical MORNING Branch TOUJEO 2022-0 Yes [id number] INJECT 72 [facility] SOLOSTAR 3-09 UNITS ity of U-300 00:00: UNDER THE [place] INSULIN 300 00 SKIN ONCE Med ical unit/mL DAILY IN Branch (1.5 mL) THE InPn EVENING (ADJUSTING DOSE BY 2 UNITS DAILY UNTIL FASTING BLOOD SUGAR LESS THAN 200) JARDIANCE 2022-0 Yes [id number] 25mg TAKE 1 Un reinier 25 mg Tab 3-09 TABLET BY ity o f 00:00: MOUTH IN [place] THE Medical MORNING Branch SERTRALINE 2022-0 Yes [id number] 200mg TAKE 2 [facility] 100 mg 3-09 TABLETS BY ity of tablet 00:00: MOUTH IN [place] THE Medical MORNING Branch ATORVASTATI 2022-0 Yes [id number] 40mg TAKE 1 [facility] N 40 mg 3-09 TABLET BY ity of tablet 00:00: MOUTH AT [place] [address] BEDTIME Medical Branch AMLODIPINE 2022-0 Yes [id number] 10mg TAKE 1 U nivers 10 mg 3-09 TABLET BY ity of tablet 00:00: MOUTH [place] EVERY Medical MORNING Branch JARDIANCE 2022-0 Yes [id number] 25mg TAKE 1 Un reinier 25 mg Tab 3-09 TABLET BY ity o f 00:00: MOUTH IN [place] THE Medical MORNING Branch SERTRALINE 2022-0 Yes [id number] 200mg TAKE 2 [facility] 100 mg 3-09 TABLETS BY ity of tablet 00:00: MOUTH IN [place] THE Medical MORNING Branch ATORVASTATI 2022-0 Yes [id number] 40mg TAKE 1 [facility] N 40 mg 3-09 TABLET BY ity of tablet 00:00: MOUTH AT [place] [address] BEDTIME Medical Branch AMLODIPINE 2022-0 Yes [id number] 10mg TAKE 1 U nivers 10 mg 3-09 TABLET BY ity of tablet 00:00: MOUTH [place] EVERY Medical MORNING Branch JARDIANCE 2022-0 Yes [id number] 25mg TAKE 1 Un reinier 25 mg Tab 3-09 TABLET BY ity o f 00:00: MOUTH IN [place] THE Medical MORNING Branch SERTRALINE 2022-0 Yes [id number] 200mg TAKE 2 [facility] 100 mg 3-09 TABLETS BY [facility] of tablet 00:00: MOUTH IN [place] THE Medical MORNING Branch ATORVASTATI 2022-0 Yes [id number] 40mg TAKE 1 [facility] N 40 mg 3-09 TABLET BY [facility] of tablet 00:00: MOUTH AT [place] 00 BEDTIME Medical Branch AMLODIPINE 2022-0 Yes [id number] 10mg TAKE 1 [facility] 10 mg 3-09 TABLET BY [facility] of tablet 00:00: MOUTH [place] EVERY Medical MORNING Branch JARDIANCE 2022-0 Yes [id number] 25mg TAKE 1 [facility] 25 mg Tab 3-09 TABLET BY ity o f 00:00: MOUTH IN [place] THE Medical MORNING Branch SERTRALINE 2022-0 Yes [id number] 200mg TAKE 2 [facility] 100 mg 3-09 TABLETS BY [facility]y of tablet 00:00: MOUTH IN [place] THE Medical MORNING Branch ATORVASTATI 2022-0 Yes [id number] 40mg TAKE 1 [facility] N 40 mg 3-09 TABLET BY [facility] of tablet 00:00: MOUTH AT [place] BEDTIME Medical Branch AMLODIPINE 2022-0 Yes [id number] 10mg TAKE 1 [facility] 10 mg 3-09 TABLET BY [facility] of tablet 00:00: MOUTH [place] EVERY Medical MORNING Branch JARDIANCE 2022-0 Yes [id number] 25mg TAKE 1 [facility] 25 mg Tab 3-09 TABLET BY ity o f 00:00: MOUTH IN [place] THE Medical MORNING Branch SERTRALINE 2022-0 Yes [id number] 200mg TAKE 2 [facility] 100 mg 3-09 TABLETS BY [facility] of tablet 00:00: MOUTH IN [place] THE Medical MORNING Branch ATORVASTATI 2022-0 Yes [id number] 40mg TAKE 1 [facility] N 40 mg 3-09 TABLET BY it[facility] of tablet 00:00: MOUTH AT [place] BEDTIME Medical Branch AMLODIPINE 3-0 Yes [id number] 10mg TAKE 1 [facility] 10 mg 3-09 TABLET BY ity of tablet 00:00: MOUTH [place] EVERY Medical MORNING Branch JARDIANCE 2022-0 Yes [id number] 25mg TAKE 1 [facility] 25 mg Tab 3-09 TABLET BY ity o f 00:00: MOUTH IN [place] THE Medical MORNING Branch SERTRALINE 2022-0 Yes [id number] 200mg TAKE 2 [facility] 100 mg 3-09 TABLETS BY ity of tablet 00:00: MOUTH IN [place] THE Medical MORNING Branch ATORVASTATI 2022-0 Yes [id number] 40mg TAKE 1 [facility] N 40 mg 3-09 TABLET BY [facility] of tablet 00:00: MOUTH AT [place] BEDTIME Medical Branch AMLODIPINE 2022-0 Yes [id number] 10mg TAKE 1 [facility] 10 mg 3-09 TABLET BY [facility] of tablet 00:00: MOUTH [place] EVERY Medical MORNING Branch JARDIANCE 2022-0 Yes [id number] 25mg TAKE 1 [facility] 25 mg Tab 3-09 TABLET BY ity o f 00:00: MOUTH IN [place] THE Medical MORNING Branch SERTRALINE 2022-0 Yes [id number] 200mg TAKE 2 [facility] 100 mg 3-09 TABLETS BY ity of tablet 00:00: MOUTH IN [place] THE Medical MORNING Branch ATORVASTATI 2022-0 Yes [id number] 40mg TAKE 1 [facility] N 40 mg 3-09 TABLET BY it[facility] of tablet 00:00: MOUTH AT [place] BEDTIME Medical Branch AMLODIPINE 2022-0 Yes [id number] 10mg TAKE 1 [facility] 10 mg 3-09 TABLET BY [facility] of tablet 00:00: MOUTH [place] EVERY Medical MORNING Branch JARDIANCE 2022-0 Yes [id number] 25mg TAKE 1 [facility] 25 mg Tab 3-09 TABLET BY ity o f 00:00: MOUTH IN [place] THE Medical MORNING Branch SERTRALINE 2022-0 Yes [id number] 200mg TAKE 2 [facility] 100 mg 3-09 TABLETS BY [facility] of tablet 00:00: MOUTH IN [place] THE Medical MORNING Branch ATORVASTATI 2022-0 Yes [id number] 40mg TAKE 1 [facility] N 40 mg 3-09 TABLET BY ity of tablet 00:00: MOUTH AT [place] BEDTIME Medical Branch AMLODIPINE 3-0 Yes [id number] 10mg TAKE 1 [facility] 10 mg 3-09 TABLET BY [facility] of tablet 00:00: MOUTH [place] EVERY Medical MORNING Branch JARDIANCE 2022-0 Yes [id number] 25mg TAKE 1 [facility] 25 mg Tab 3-09 TABLET BY ity o f 00:00: MOUTH IN [place] THE Medical MORNING Branch SERTRALINE 2022-0 Yes [id number] 200mg TAKE 2 [facility] 100 mg 3-09 TABLETS BY [facility] of tablet 00:00: MOUTH IN [place] THE Medical MORNING Branch ATORVASTATI 2022-0 Yes [id number] 40mg TAKE 1 [facility] N 40 mg 3-09 TABLET BY it[facility] of tablet 00:00: MOUTH AT [place] 00 BEDTIME Medical Branch AMLODIPINE 3-0 Yes [id number] 10mg TAKE 1 [facility] 10 mg 3-09 TABLET BY [facility] of tablet 00:00: MOUTH [place] EVERY Medical MORNING Branch JARDIANCE 3-0 Yes [id number] 25mg TAKE 1 [facility] 25 mg Tab 3-09 TABLET BY ity o f 00:00: MOUTH IN [place] THE Medical MORNING Branch SERTRALINE 2022-0 Yes [id number] 200mg TAKE 2 [facility] 100 mg 3-09 TABLETS BY it[facility] of tablet 00:00: MOUTH IN [place] THE Medical MORNING Branch ATORVASTATI 2022-0 Yes [id number] 40mg TAKE 1 [facility] N 40 mg 3-09 TABLET BY ity of tablet 00:00: MOUTH AT [place] [address] BEDTIME Medical Branch AMLODIPINE 2022-0 Yes [id number] 10mg TAKE 1 [facility] 10 mg 3-09 TABLET BY ity of tablet 00:00: MOUTH [place] EVERY Medical MORNING Branch JARDIANCE 2022-0 Yes [id number] 25mg TAKE 1 [facility] 25 mg Tab 3-09 TABLET BY ity o f 00:00: MOUTH IN [place] THE Medical MORNING Branch SERTRALINE 2022-0 Yes [id number] 200mg TAKE 2 [facility] 100 mg 3-09 TABLETS BY ity of tablet 00:00: MOUTH IN [place] THE Medical MORNING Branch ATORVASTATI 2022-0 Yes [id number] 40mg TAKE 1 [facility] N 40 mg 3-09 TABLET BY ity of tablet 00:00: MOUTH AT [place] [address] BEDTIME Medical Branch AMLODIPINE 3-0 Yes [id number] 10mg TAKE 1 [facility] 10 mg 3-09 TABLET BY ity of tablet 00:00: MOUTH [place] EVERY Medical MORNING Branch JARDIANCE 3-0 Yes [id number] 25mg TAKE 1 [facility] 25 mg Tab 3-09 TABLET BY ity o f 00:00: MOUTH IN [place] THE Medical MORNING Branch SERTRALINE 2022-0 Yes [id number] 200mg TAKE 2 [facility] 100 mg 3-09 TABLETS BY [facility] of tablet 00:00: MOUTH IN [place] THE Medical MORNING Branch ATORVASTATI 2022-0 Yes [id number] 40mg TAKE 1 [facility] N 40 mg 3-09 TABLET BY it[facility] of tablet 00:00: MOUTH AT [place] [address] BEDTIME Medical Branch AMLODIPINE 2022-0 Yes [id number] 10mg TAKE 1 [facility] 10 mg 3-09 TABLET BY it[facility] of tablet 00:00: MOUTH [place] EVERY Medical MORNING Branch JARDIANCE 2022-0 Yes [id number] 25mg TAKE 1 [facility] 25 mg Tab 3-09 TABLET BY ity o f 00:00: MOUTH IN [place] THE Medical MORNING Branch SERTRALINE 2022-0 Yes [id number] 200mg TAKE 2 [facility] 100 mg 3-09 TABLETS BY [facility] of tablet 00:00: MOUTH IN [place] THE Medical MORNING Branch ATORVASTATI 2022-0 Yes [id number] 40mg TAKE 1 [facility] N 40 mg 3-09 TABLET BY it[facility] of tablet 00:00: MOUTH AT [place] BEDTIME Medical Branch AMLODIPINE 2022-0 Yes [id number] 10mg TAKE 1 [facility] 10 mg 3-09 TABLET BY [facility] of tablet 00:00: MOUTH [place] EVERY Medical MORNING Branch JARDIANCE 2022-0 Yes [id number] 25mg TAKE 1 [facility] 25 mg Tab 3-09 TABLET BY ity o f 00:00: MOUTH IN [place] THE Medical MORNING Branch SERTRALINE 2022-0 Yes [id number] 200mg TAKE 2 [facility] 100 mg 3-09 TABLETS BY ity of tablet 00:00: MOUTH IN [place] THE Medical MORNING Branch ATORVASTATI 2022-0 Yes [id number] 40mg TAKE 1 [facility] N 40 mg 3-09 TABLET BY ity of tablet 00:00: MOUTH AT [place] BEDTIME Medical Branch AMLODIPINE 2022-0 Yes [id number] 10mg TAKE 1 [facility] 10 mg 3-09 TABLET BY it[facility] of tablet 00:00: MOUTH [place] EVERY Medical MORNING Branch JARDIANCE 2022-0 Yes [id number] 25mg TAKE 1 [facility] 25 mg Tab 3-09 TABLET BY ity o f 00:00: MOUTH IN [place] THE Medical MORNING Branch SERTRALINE 2022-0 Yes [id number] 200mg TAKE 2 [facility] 100 mg 3-09 TABLETS BY it[facility] of tablet 00:00: MOUTH IN [place] [address] THE Medical MORNING Branch ATORVASTATI 2022-0 Yes [id number] 40mg TAKE 1 [facility] N 40 mg 3-09 TABLET BY [facility] of tablet 00:00: MOUTH AT [place] BEDTIME Medical Branch AMLODIPINE 2022-0 Yes [id number] 10mg TAKE 1 [facility] 10 mg 3-09 TABLET BY ity of tablet 00:00: MOUTH [place] EVERY Medical MORNING Branch JARDIANCE 2022-0 Yes [id number] 25mg TAKE 1 [facility] 25 mg Tab 3-09 TABLET BY ity o f 00:00: MOUTH IN [place] 00 THE Medical MORNING Branch SERTRALINE 2022-0 Yes [id number] 200mg TAKE 2 [facility] 100 mg 3-09 TABLETS BY [facility] of tablet 00:00: MOUTH IN [place] 00 THE Medical MORNING Branch ATORVASTATI 2022-0 Yes [id number] 40mg TAKE 1 [facility] N 40 mg 3-09 TABLET BY [facility] of tablet 00:00: MOUTH AT [place] BEDTIME Medical Branch AMLODIPINE 2022-0 Yes [id number] 10mg TAKE 1 [facility] 10 mg 3-09 TABLET BY ity of tablet 00:00: MOUTH [place] EVERY Medical MORNING Branch JARDIANCE 2022-0 Yes [id number] 25mg TAKE 1 [facility] 25 mg Tab 3-09 TABLET BY ity o f 00:00: MOUTH IN [place] 00 THE Medical MORNING Branch SERTRALINE 2022-0 Yes [id number] 200mg TAKE 2 [facility] 100 mg 3-09 TABLETS BY ity of tablet 00:00: MOUTH IN [place] THE Medical MORNING Branch ATORVASTATI 2022-0 Yes [id number] 40mg TAKE 1 [facility] N 40 mg 3-09 TABLET BY ity of tablet 00:00: MOUTH AT [place] [address] BEDTIME Medical Branch AMLODIPINE 2022-0 Yes [id number] 10mg TAKE 1 [facility] 10 mg 3-09 TABLET BY [facility] of tablet 00:00: MOUTH [place] EVERY Medical MORNING Branch JARDIANCE 2022-0 Yes [id number] 25mg TAKE 1 [facility] 25 mg Tab 3-09 TABLET BY ity o f 00:00: MOUTH IN [place] 00 THE Medical MORNING Branch SERTRALINE 2022-0 Yes [id number] 200mg TAKE 2 [facility] 100 mg 3-09 TABLETS BY ity of tablet 00:00: MOUTH IN [place] 00 THE Medical MORNING Branch ATORVASTATI 2022-0 Yes [id number] 40mg TAKE 1 [facility] N 40 mg 3-09 TABLET BY ity of tablet 00:00: MOUTH AT [place] [address] BEDTIME Medical Branch AMLODIPINE 2022-0 Yes [id number] 10mg TAKE 1 [facility] 10 mg 3-09 TABLET BY ity of tablet 00:00: MOUTH [place] EVERY Medical MORNING Branch JARDIANCE 3-0 Yes [id number] 25mg TAKE 1 [facility] 25 mg Tab 3-09 TABLET BY ity o f 00:00: MOUTH IN [place] 00 THE Medical MORNING Branch SERTRALINE 2022-0 Yes [id number] 200mg TAKE 2 [facility] 100 mg 3-09 TABLETS BY ity of tablet 00:00: MOUTH IN [place] 00 THE Medical MORNING Branch ATORVASTATI 2022-0 Yes [id number] 40mg TAKE 1 [facility] N 40 mg 3-09 TABLET BY ity of tablet 00:00: MOUTH AT [place] BEDTIME Medical Branch AMLODIPINE 2022-0 Yes [id number] 10mg TAKE 1 [facility] 10 mg 3-09 TABLET BY ity of tablet 00:00: MOUTH [place] EVERY Medical MORNING Branch JARDIANCE 2022-0 Yes [id number] 25mg TAKE 1 [facility] 25 mg Tab 3-09 TABLET BY ity o f 00:00: MOUTH IN [place] THE Medical MORNING Branch SERTRALINE 2022-0 Yes [id number] 200mg TAKE 2 [facility] 100 mg 3-09 TABLETS BY ity of tablet 00:00: MOUTH IN [place] THE Medical MORNING Branch ATORVASTATI 2022-0 Yes [id number] 40mg TAKE 1 [facility] N 40 mg 3-09 TABLET BY ity of tablet 00:00: MOUTH AT [place] [address] BEDTIME Medical Branch AMLODIPINE 3-0 Yes [id number] 10mg TAKE 1 [facility] 10 mg 3-09 TABLET BY ity of tablet 00:00: MOUTH [place] EVERY Medical MORNING Branch JARDIANCE 3-0 Yes [id number] 25mg TAKE 1 [facility] 25 mg Tab 3-09 TABLET BY ity o f 00:00: MOUTH IN [place] THE Medical MORNING Branch SERTRALINE 3-0 Yes [id number] 200mg TAKE 2 [facility] 100 mg 3-09 TABLETS BY ity of tablet 00:00: MOUTH IN [place] THE Medical MORNING Branch ATORVASTATI 2022-0 Yes [id number] 40mg TAKE 1 [facility] N 40 mg 3-09 TABLET BY ity of tablet 00:00: MOUTH AT [place] [address] BEDTIME Medical Branch AMLODIPINE 3-0 Yes [id number] 10mg TAKE 1 [facility] 10 mg 3-09 TABLET BY ity of tablet 00:00: MOUTH [place] EVERY Medical MORNING Branch JARDIANCE 3-0 Yes [id number] 25mg TAKE 1 [facility] 25 mg Tab 3-09 TABLET BY ity o f 00:00: MOUTH IN [place] 00 THE Medical MORNING Branch SERTRALINE 2022-0 Yes [id number] 200mg TAKE 2 [facility] 100 mg 3-09 TABLETS BY ity of tablet 00:00: MOUTH IN [place] 00 THE Medical MORNING Branch ATORVASTATI 2022-0 Yes [id number] 40mg TAKE 1 [facility] N 40 mg 3-09 TABLET BY ity of tablet 00:00: MOUTH AT [place] BEDTIME Medical Branch AMLODIPINE 2022-0 Yes [id number] 10mg TAKE 1 [facility] 10 mg 3-09 TABLET BY ity of tablet 00:00: MOUTH [place] EVERY Medical MORNING Branch JARDIANCE 2022-0 Yes [id number] 25mg TAKE 1 [facility] 25 mg Tab 3-09 TABLET BY ity o f 00:00: MOUTH IN [place] 00 THE Medical MORNING Branch SERTRALINE 2022-0 Yes [id number] 200mg TAKE 2 [facility] 100 mg 3-09 TABLETS BY ity of tablet 00:00: MOUTH IN [place] THE Medical MORNING Branch ATORVASTATI 2022-0 Yes [id number] 40mg TAKE 1 [facility] N 40 mg 3-09 TABLET BY ity of tablet 00:00: MOUTH AT [place] BEDTIME Medical Branch AMLODIPINE 3-0 Yes [id number] 10mg TAKE 1 [facility] 10 mg 3-09 TABLET BY ity of tablet 00:00: MOUTH [place] EVERY Medical MORNING Branch JARDIANCE 2022-0 Yes [id number] 25mg TAKE 1 [facility] 25 mg Tab 3-09 TABLET BY ity o f 00:00: MOUTH IN [place] THE Medical MORNING Branch SERTRALINE 2022-0 Yes [id number] 200mg TAKE 2 [facility] 100 mg 3-09 TABLETS BY ity of tablet 00:00: MOUTH IN [place] 00 THE Medical MORNING Branch ATORVASTATI 3-0 Yes [id number] 40mg TAKE 1 [facility] N 40 mg 3-09 TABLET BY ity of tablet 00:00: MOUTH AT [place] [address] BEDTIME Medical Branch AMLODIPINE 3-0 Yes [id number] 10mg TAKE 1 [facility] 10 mg 3-09 TABLET BY ity of tablet 00:00: MOUTH [place] 00 EVERY Medical MORNING Branch JARDIANCE 2022-0 Yes [id number] 25mg TAKE 1 [facility] 25 mg Tab 3-09 TABLET BY ity o f 00:00: MOUTH IN [place] 00 THE Medical MORNING Branch SERTRALINE 2022-0 Yes [id number] 200mg TAKE 2 [facility] 100 mg 3-09 TABLETS BY ity of tablet 00:00: MOUTH IN [place] 00 THE Medical MORNING Branch ATORVASTATI 2022-0 Yes [id number] 40mg TAKE 1 [facility] N 40 mg 3-09 TABLET BY ity of tablet 00:00: MOUTH AT [place] 00 BEDTIME Medical Branch AMLODIPINE 2022-0 Yes [id number] 10mg TAKE 1 [facility] 10 mg 3-09 TABLET BY ity of tablet 00:00: MOUTH [place] 00 EVERY Medical MORNING Branch SERTRALINE 2022-0 Yes [id number] 200mg TAKE 2 [facility] 100 mg 3-09 TABLETS BY ity of tablet 00:00: MOUTH IN [place] 00 THE Medical MORNING Branch SERTRALINE 2022-0 Yes [id number] 200mg TAKE 2 [facility] 100 mg 3-09 TABLETS BY ity of tablet 00:00: MOUTH IN [place] 00 THE Medical MORNING Branch SERTRALINE 2022-0 Yes [id number] 200mg TAKE 2 [facility] 100 mg 3-09 TABLETS BY ity of tablet 00:00: MOUTH IN [place] 00 THE Medical MORNING Branch SERTRALINE 2022-0 Yes [id number] 200mg TAKE 2 [facility] 100 mg 3-09 TABLETS BY ity of tablet 00:00: MOUTH IN [place] 00 THE Medical MORNING Branch SERTRALINE 2022-0 Yes [id number] 200mg TAKE 2 [facility] 100 mg 3-09 TABLETS BY ity of tablet 00:00: MOUTH IN [place] 00 THE Medical MORNING Branch JARDIANCE 2022-0 3- No [id number] 25mg TAKE 1 [facility]ivers 25 mg Tab -08-21 TABLET BY ity of 00:00: 00:00 MOUTH IN [place] 00 :00 THE Medical MORNING Branch ATORVASTATI 2022-0 3- No [id number] 40mg TAKE 1 [facility] N 40 mg 3-08-21 TABLET BY ity of tablet 00:00: 00:00 MOUTH AT [place] 00 :00 BEDTIME Medical Branch AMLODIPINE 2022-0 2022- No [id number] 10mg TAKE 1 [facility] 10 mg 3-08-21 TABLET BY ity of tablet 00:00: 00:00 MOUTH [place] 00 :00 EVERY Medical MORNING Branch TOUJEO 2022- No [id number] INJECT 72 U nivers SOLOSTAR 05-29-13 UNITS ity of U-300 00:00: 00:00 UNDER THE [place] INSULIN 300 00 :00 SKIN ONCE Med ical unit/mL DAILY IN Branch (1.5 mL) THE InPn EVENING (ADJUSTING DOSE BY 2 UNITS DAILY UNTIL FASTING BLOOD SUGAR LESS THAN 200) POTASSIUM 2022- No [id number] TAKE 1 U nivers CHLORIDE 10 05-29- TABLET BY it y of mEq CR 00:00: 00:00 MOUTH [place] tablet 00 :00 DAILY WITH Medical A GLASS OF Branch WATER PROMETHAZIN 2022- No [id number] TAKE 1 [facility] E 25 mg 05-29 TABLET BY ity of tablet 00:00: 00:00 MOUTH [place] 00 :00 EVERY 6 Medical HOURS Branch NEEDED FOR NAUSEA AND VOMITING *MAY IMPAIR ALERTNESS* * VICTOZA 2022- No [id number] INJECT 1.8 [facility] 3-SOILA 0.6 05-29 03-24 MG UNDER ity o f mg/0.1 mL 00:00: 00:00 THE SKIN [place] as (18 mg/3 00 :00 IN THE Medical mL) MORNING Branch injection VICTOZA 2022- No [id number] INJECT 1.8 [facility] 3-SOILA 0.6 05-29 03-24 MG UNDER ity o f mg/0.1 mL 00:00: 00:00 THE SKIN [place] as (18 mg/3 00 :00 IN THE Medical mL) MORNING Branch injection PANTOPRAZOL Yes TAKE 1 [facility] ers E 40 mg EC 3-08 TABLET BY ity of tablet 00:00: MOUTH ONCE [place] 00 DAILY Medical BEFORE A Branch MEAL blood sugar Yes [id number] USE 3 [facility] diagnostic 3-08 TIMES ity of (ONETOUCH 00:00: DAILY FOR [place] as VERIO TEST 00 BLOOD Medical STRIPS) GLUCOSE Branch strip MONITORING CLOPIDOGREL Yes [id number] TAKE 1 [facility] 75 mg 3-08 TABLET BY ity of tablet 00:00: MOUTH [place] 00 EVERY DAY Medical Branch METFORMIN Yes [id number] TAKE 2 [facility] ER 500 mg 3-08 TABLETS BY ity of 24 hr 00:00: MOUTH 2 [place] tablet 00 TIMES Medical DAILY WITH Branch FOOD LATUDA 40 Yes [id number] TAKE 1 U nivers mg tablet 3-08 TABLET BY ity o f 00:00: MOUTH AT [place] 00 BEDTIME Medical Branch HYDROXYZINE 2022-0 Yes [id number] TAKE 1 [facility] 50 mg 3-08 TABLET BY ity of tablet 00:00: MOUTH 3 [place] 00 TIMES Medical DAILY Branch NEEDED FOR ITCHING OR ANXIETY. *MAY IMPAIR ALERTNESS* * LEVETIRACET 2022- Yes [id number] TAKE 1 [facility] AM 1,000 mg 3-08 TABLET BY ity of tablet 00:00: MOUTH 2 [place] 00 TIMES Medical DAILY Branch SULFAMETHOX 2022-0 Yes [id number] TAKE 1 [facility] AZOLE-TRIME 3-08 TABLET BY ity of THOPRIM 00:00: MOUTH 2 [place] 800-160 mg 00 TIMES Medical per tablet DAILY WITH [facility] A GLASS OF WATER METOPROLOL 2022- Yes [id number] TAKE 1 U nivers SUCCINATE 3-08 TABLET BY ity o f XL 50 mg 24 00:00: MOUTH ONCE [place] hr tablet 00 DAILY WITH [facility] FOOD Branch HYDROCHLORO 2022-0 Yes [id number] 25mg TAKE 1 [facility] THIAZIDE 25 3-08 TABLET BY ity of mg tablet 00:00: MOUTH IN [facility] 00 THE Medical MORNING Branch LOSARTAN 2022-0 Yes [id number] 100mg TAKE 1 [facility] 100 mg 3-08 TABLET BY ity of tablet 00:00: MOUTH 00 EVERY Medical MORNING. Branch PANTOPRAZOL 2022- Yes TAKE 1 Univ ers E 40 mg EC 3-08 TABLET BY ity of tablet 00:00: MOUTH ONCE [place] 00 DAILY Medical BEFORE A Branch MEAL blood sugar 2022-0 Yes [id number] USE 3 [facility] diagnostic 3-08 TIMES ity of (ONETOUCH 00:00: DAILY FOR [place] as VERIO TEST 00 BLOOD Medical STRIPS) GLUCOSE Branch strip MONITORING CLOPIDOGREL 2022-0 Yes [id number] TAKE 1 [facility] 75 mg 3-08 TABLET BY ity of tablet 00:00: MOUTH [place] 00 EVERY DAY Medical Branch METFORMIN 2022-0 Yes [id number] TAKE 2 [facility] ER 500 mg 3-08 TABLETS BY ity of 24 hr 00:00: MOUTH 2 [place] tablet 00 TIMES Medical DAILY WITH Branch FOOD LATUDA 40 Yes [id number] TAKE 1 U nivers mg tablet 3-08 TABLET BY ity o f 00:00: MOUTH AT [place] 00 BEDTIME Medical Branch HYDROXYZINE Yes [id number] TAKE 1 [facility] 50 mg 3-08 TABLET BY ity of tablet 00:00: MOUTH 3 [place] 00 TIMES Medical DAILY Branch NEEDED FOR ITCHING OR ANXIETY. *MAY IMPAIR ALERTNESS* * LEVETIRACET Yes [id number] TAKE 1 [facility] AM 1,000 mg 3-08 TABLET BY ity of tablet 00:00: MOUTH 2 [place] 00 TIMES Medical DAILY Branch SULFAMETHOX 2022-0 Yes [id number] TAKE 1 [facility] AZOLE-TRIME 3-08 TABLET BY ity of THOPRIM 00:00: MOUTH 2 [place] 800-160 mg 00 TIMES Medical per tablet DAILY WITH [facility] A GLASS OF WATER METOPROLOL Yes [id number] TAKE 1 U nivers SUCCINATE 3-08 TABLET BY ity o f XL 50 mg 24 00:00: MOUTH ONCE [place] hr tablet 00 DAILY WITH [facility] FOOD Branch HYDROCHLORO Yes [id number] 25mg TAKE 1 [facility] THIAZIDE 25 3-08 TABLET BY ity of mg tablet 00:00: MOUTH IN [facility] 00 THE Medical MORNING Branch LOSARTAN 0 Yes [id number] 100mg TAKE 1 [facility] 100 mg 3-08 TABLET BY ity of tablet 00:00: MOUTH [place] 00 EVERY Medical MORNING. Branch PANTOPRAZOL Yes TAKE 1 Univ ers E 40 mg EC 3-08 TABLET BY ity of tablet 00:00: MOUTH ONCE [place] 00 DAILY Medical BEFORE A Branch MEAL blood sugar 2022-0 Yes [id number] USE 3 [facility] diagnostic 3-08 TIMES ity of (ONETOUCH 00:00: DAILY FOR [place] as VERIO TEST 00 BLOOD Medical STRIPS) GLUCOSE Branch strip MONITORING CLOPIDOGREL Yes [id number] TAKE 1 [facility] 75 mg 3-08 TABLET BY ity of tablet 00:00: MOUTH [place] 00 EVERY DAY Medical Branch METFORMIN 2022-0 Yes [id number] TAKE 2 [facility] ER 500 mg 3-08 TABLETS BY ity of 24 hr 00:00: MOUTH 2 [place] tablet 00 TIMES Medical DAILY WITH Branch FOOD LATUDA 40 Yes [id number] TAKE 1 U nivers mg tablet 3-08 TABLET BY ity o f 00:00: MOUTH AT [place] 00 BEDTIME Medical Branch HYDROXYZINE 2022-0 Yes [id number] TAKE 1 [facility] 50 mg 3-08 TABLET BY ity of tablet 00:00: MOUTH 3 [place] 00 TIMES Medical DAILY Branch NEEDED FOR ITCHING OR ANXIETY. *MAY IMPAIR ALERTNESS* * LEVETIRACET 2022-0 Yes [id number] TAKE 1 [facility] AM 1,000 mg 3-08 TABLET BY ity of tablet 00:00: MOUTH 2 [place] 00 TIMES Medical DAILY Branch SULFAMETHOX 2022-0 Yes [id number] TAKE 1 [facility] AZOLE-TRIME 3-08 TABLET BY ity of THOPRIM 00:00: MOUTH 2 [place] 800-160 mg 00 TIMES Medical per tablet DAILY WITH [facility] A GLASS OF WATER METOPROLOL 2022-0 Yes [id number] TAKE 1 U nivers SUCCINATE 3-08 TABLET BY ity o f XL 50 mg 24 00:00: MOUTH ONCE [place] hr tablet 00 DAILY WITH [facility] FOOD Branch HYDROCHLORO 2022-0 Yes [id number] 25mg TAKE 1 [facility] THIAZIDE 25 3-08 TABLET BY ity of mg tablet 00:00: MOUTH [place] 00 THE Medical MORNING Branch LOSARTAN 2022-0 Yes [id number] 100mg TAKE 1 [facility] 100 mg 3-08 TABLET BY ity of tablet 00:00: MOUTH 00 EVERY Medical MORNING. Branch PANTOPRAZOL 2022- Yes TAKE 1 Univ ers E 40 mg EC 3-08 TABLET BY ity of tablet 00:00: MOUTH ONCE [place] 00 DAILY Medical BEFORE A Branch MEAL blood sugar 2022-0 Yes [id number] USE 3 [facility] diagnostic 3-08 TIMES ity of (ONETOUCH 00:00: DAILY FOR [place] as VERIO TEST 00 BLOOD Medical STRIPS) GLUCOSE Branch strip MONITORING CLOPIDOGREL 2022-0 Yes [id number] TAKE 1 [facility] 75 mg 3-08 TABLET BY ity of tablet 00:00: MOUTH [place] 00 EVERY DAY Medical Branch METFORMIN 2022-0 Yes [id number] TAKE 2 Un [facility] ER 500 mg 3-08 TABLETS BY ity of 24 hr 00:00: MOUTH 2 [place] tablet 00 TIMES Medical DAILY WITH Branch FOOD LATUDA 40 2022-0 Yes [id number] TAKE 1 U nivers mg tablet 3-08 TABLET BY ity o f 00:00: MOUTH AT [place] 00 BEDTIME Medical Branch HYDROXYZINE 2023-0 Yes [id number] TAKE 1 [facility] 50 mg 3-08 TABLET BY ity of tablet 00:00: MOUTH 3 [place] 00 TIMES Medical DAILY Branch NEEDED FOR ITCHING OR ANXIETY. *MAY IMPAIR ALERTNESS* * LEVETIRACET 0 Yes [id number] TAKE 1 [facility] AM 1,000 mg 3-08 TABLET BY ity of tablet 00:00: MOUTH 2 [place] 00 TIMES Medical DAILY Branch SULFAMETHOX 2022-0 Yes [id number] TAKE 1 [facility] AZOLE-TRIME 3-08 TABLET BY ity of THOPRIM 00:00: MOUTH 2 [place] 800-160 mg 00 TIMES Medical per tablet DAILY WITH [facility] A GLASS OF WATER METOPROLOL Yes [id number] TAKE 1 U nivers SUCCINATE 3-08 TABLET BY ity o f XL 50 mg 24 00:00: MOUTH ONCE [place] hr tablet 00 DAILY WITH [facility] FOOD Branch HYDROCHLORO 0 Yes [id number] 25mg TAKE 1 Univers THIAZIDE 25 3-08 TABLET BY ity of mg tablet 00:00: MOUTH IN [facility] 00 THE Medical MORNING Branch LOSARTAN 2022-0 Yes [id number] 100mg TAKE 1 [facility] 100 mg 3-08 TABLET BY ity of tablet 00:00: MOUTH [place] 00 EVERY Medical MORNING. Branch PANTOPRAZOL Yes TAKE 1 Univ ers E 40 mg EC 3-08 TABLET BY ity of tablet 00:00: MOUTH ONCE [place] 00 DAILY Medical BEFORE A Branch MEAL blood sugar 2022-0 Yes [id number] USE 3 [facility] diagnostic 3-08 TIMES ity of (ONETOUCH 00:00: DAILY FOR [facility] as VERIO TEST 00 BLOOD Medical STRIPS) GLUCOSE Branch strip MONITORING CLOPIDOGREL 2022- Yes [id number] TAKE 1 [facility] 75 mg 3-08 TABLET BY ity of tablet 00:00: MOUTH [place] 00 EVERY DAY Medical Branch METFORMIN 2022-0 Yes [id number] TAKE 2 [facility] ER 500 mg 3-08 TABLETS BY ity of 24 hr 00:00: MOUTH 2 [place] tablet 00 TIMES Medical DAILY WITH Branch FOOD LATUDA 40 2022-0 Yes [id number] TAKE 1 U nivers mg tablet 3-08 TABLET BY ity o f 00:00: MOUTH AT [place] 00 BEDTIME Medical Branch HYDROXYZINE 2022-0 Yes [id number] TAKE 1 [facility] 50 mg 3-08 TABLET BY ity of tablet 00:00: MOUTH 3 [place] 00 TIMES Medical DAILY Branch NEEDED FOR ITCHING OR ANXIETY. *MAY IMPAIR ALERTNESS* * LEVETIRACET Yes [id number] TAKE 1 [facility] AM 1,000 mg 3-08 TABLET BY ity of tablet 00:00: MOUTH 2 [place] 00 TIMES Medical DAILY Branch SULFAMETHOX 2022-0 Yes [id number] TAKE 1 [facility] AZOLE-TRIME 3-08 TABLET BY ity of THOPRIM 00:00: MOUTH 2 [place] 800-160 mg 00 TIMES Medical per tablet DAILY WITH [facility] A GLASS OF WATER METOPROLOL Yes [id number] TAKE 1 U nivers SUCCINATE 3-08 TABLET BY ity o f XL 50 mg 24 00:00: MOUTH ONCE [place] hr tablet 00 DAILY WITH [facility] FOOD Branch HYDROCHLORO Yes [id number] 25mg TAKE 1 [facility] THIAZIDE 25 3-08 TABLET BY ity of mg tablet 00:00: MOUTH IN [facility] 00 THE Medical MORNING Branch LOSARTAN Yes [id number] 100mg TAKE 1 [facility] 100 mg 3-08 TABLET BY ity of tablet 00:00: MOUTH [place] 00 EVERY Medical MORNING. Branch PANTOPRAZOL Yes TAKE 1 Univ ers E 40 mg EC 3-08 TABLET BY ity of tablet 00:00: MOUTH ONCE [place] 00 DAILY Medical BEFORE A Branch MEAL blood sugar 2022-0 Yes [id number] USE 3 [facility] diagnostic 3-08 TIMES ity of (ONETOUCH 00:00: DAILY FOR [place] as VERIO TEST 00 BLOOD Medical STRIPS) GLUCOSE Branch strip MONITORING CLOPIDOGREL Yes [id number] TAKE 1 [facility] 75 mg 3-08 TABLET BY ity of tablet 00:00: MOUTH [place] 00 EVERY DAY Medical Branch METFORMIN 2022-0 Yes [id number] TAKE 2 [facility] reinier ER 500 mg 3-08 TABLETS BY ity of 24 hr 00:00: MOUTH 2 [place] tablet 00 TIMES Medical DAILY WITH Branch FOOD LATUDA 40 2022-0 Yes [id number] TAKE 1 U nivers mg tablet 3-08 TABLET BY ity o f 00:00: MOUTH AT [place] 00 BEDTIME Medical Branch HYDROXYZINE 2022-0 Yes [id number] TAKE 1 [facility] 50 mg 3-08 TABLET BY ity of tablet 00:00: MOUTH 3 [place] 00 TIMES Medical DAILY Branch NEEDED FOR ITCHING OR ANXIETY. *MAY IMPAIR ALERTNESS* * LEVETIRACET Yes [id number] TAKE 1 [facility] AM 1,000 mg 3-08 TABLET BY ity of tablet 00:00: MOUTH 2 [place] 00 TIMES Medical DAILY Branch SULFAMETHOX 2022-0 Yes [id number] TAKE 1 [facility] AZOLE-TRIME 3-08 TABLET BY ity of THOPRIM 00:00: MOUTH 2 [place] 800-160 mg 00 TIMES Medical per tablet DAILY WITH [facility] A GLASS OF WATER METOPROLOL Yes [id number] TAKE 1 U nivers SUCCINATE 3-08 TABLET BY ity o f XL 50 mg 24 00:00: MOUTH ONCE [place] hr tablet 00 DAILY WITH [facility] radha FOOD Branch HYDROCHLORO Yes [id number] 25mg TAKE 1 Univers THIAZIDE 25 3-08 TABLET BY ity of mg tablet 00:00: MOUTH IN [facility] 00 THE Medical MORNING Branch LOSARTAN Yes [id number] 100mg TAKE 1 Un [facility] 100 mg 3-08 TABLET BY ity of tablet 00:00: MOUTH [place] 00 EVERY Medical MORNING. Branch PANTOPRAZOL Yes TAKE 1 Univ ers E 40 mg EC 3-08 TABLET BY ity of tablet 00:00: MOUTH ONCE [place] 00 DAILY Medical BEFORE A Branch MEAL blood sugar Yes [id number] USE 3 [facility] diagnostic 3-08 TIMES ity of (ONETOUCH 00:00: DAILY FOR [place] as VERIO TEST 00 BLOOD Medical STRIPS) GLUCOSE Branch strip MONITORING CLOPIDOGREL Yes [id number] TAKE 1 [facility] 75 mg 3-08 TABLET BY ity of tablet 00:00: MOUTH [place] 00 EVERY DAY Medical Branch METFORMIN 2022-0 Yes [id number] TAKE 2 Un [facility] ER 500 mg 3-08 TABLETS BY ity of 24 hr 00:00: MOUTH 2 [place] tablet 00 TIMES Medical DAILY WITH Branch FOOD LATUDA 40 Yes [id number] TAKE 1 U nivers mg tablet 3-08 TABLET BY ity o f 00:00: MOUTH AT [place] 00 BEDTIME Medical Branch HYDROXYZINE 2022-0 Yes [id number] TAKE 1 [facility] 50 mg 3-08 TABLET BY ity of tablet 00:00: MOUTH 3 [place] 00 TIMES Medical DAILY Branch NEEDED FOR ITCHING OR ANXIETY. *MAY IMPAIR ALERTNESS* * LEVETIRACET Yes [id number] TAKE 1 [facility] AM 1,000 mg 3-08 TABLET BY ity of tablet 00:00: MOUTH 2 [place] 00 TIMES Medical DAILY Branch SULFAMETHOX 2022-0 Yes [id number] TAKE 1 [facility] AZOLE-TRIME 3-08 TABLET BY ity of THOPRIM 00:00: MOUTH 2 [place] 800-160 mg 00 TIMES Medical per tablet DAILY WITH [facility] A GLASS OF WATER METOPROLOL 2022-0 Yes [id number] TAKE 1 U nivers SUCCINATE 3-08 TABLET BY ity o f XL 50 mg 24 00:00: MOUTH ONCE [place] hr tablet 00 DAILY WITH [facility] radha FOOD Branch HYDROCHLORO 2022-0 Yes [id number] 25mg TAKE 1 [facility] THIAZIDE 25 3-08 TABLET BY ity of mg tablet 00:00: [place]TH IN [place] 00 THE Medical MORNING Branch LOSARTAN 2022-0 Yes [id number] 100mg TAKE 1 [facility] [place] 100 mg 3-08 TABLET BY ity of tablet 00:00: MOUTH [place] 00 EVERY Medical MORNING. Branch PANTOPRAZOL Yes TAKE 1 Univ ers E 40 mg EC 3-08 TABLET BY ity of tablet 00:00: MOUTH ONCE [place] 00 DAILY Medical BEFORE A Branch MEAL blood sugar 2022-0 Yes [id number] USE 3 [facility] diagnostic 3-08 TIMES ity of (ONETOUCH 00:00: DAILY FOR [place] as VERIO TEST 00 BLOOD Medical STRIPS) GLUCOSE Branch strip MONITORING CLOPIDOGREL Yes [id number] TAKE 1 [facility] 75 mg 3-08 TABLET BY ity of tablet 00:00: MOUTH [place] 00 EVERY DAY Medical Branch METFORMIN 2022-0 Yes [id number] TAKE 2 Un [facility] ER 500 mg 3-08 TABLETS BY ity of 24 hr 00:00: MOUTH 2 [place] tablet 00 TIMES Medical DAILY WITH Branch FOOD HYDROXYZINE 2022-0 Yes [id number] TAKE 1 [facility] 50 mg 3-08 TABLET BY ity of tablet 00:00: MOUTH 3 [place] 00 TIMES Medical DAILY Branch NEEDED FOR ITCHING OR ANXIETY. *MAY IMPAIR ALERTNESS* * LEVETIRACET 2022-0 Yes [id number] TAKE 1 [facility] AM 1,000 mg 3-08 TABLET BY ity of tablet 00:00: MOUTH 2 [place] 00 TIMES Medical DAILY Branch SULFAMETHOX 2022-0 Yes [id number] TAKE 1 [facility] AZOLE-TRIME 3-08 TABLET BY ity of THOPRIM 00:00: MOUTH 2 [place] 800-160 mg 00 TIMES Medical per tablet DAILY WITH [facility] A GLASS OF WATER METOPROLOL Yes [id number] TAKE 1 U nivers SUCCINATE 3-08 TABLET BY ity o f XL 50 mg 24 00:00: MOUTH ONCE [place] hr tablet 00 DAILY WITH [facility] FOOD Branch HYDROCHLORO Yes [id number] 25mg TAKE 1 [facility] THIAZIDE 25 3-08 TABLET BY ity of mg tablet 00:00: M[place]TH IN [place] 00 THE Medical MORNING Branch LOSARTAN 2022-0 Yes [id number] 100mg TAKE 1 [facility] [place] 100 mg 3-08 TABLET BY ity of tablet 00:00: MOUTH [place] 00 EVERY Medical MORNING. Branch PANTOPRAZOL Yes TAKE 1 Univ ers E 40 mg EC 3-08 TABLET BY ity of tablet 00:00: MOUTH ONCE [place] 00 DAILY Medical BEFORE A Branch MEAL blood sugar 2022- Yes [id number] USE 3 [facility] diagnostic 3-08 TIMES ity of (ONETOUCH 00:00: DAILY FOR [place] as VERIO TEST 00 BLOOD Medical STRIPS) GLUCOSE Branch strip MONITORING CLOPIDOGREL Yes [id number] TAKE 1 [facility] 75 mg 3-08 TABLET BY ity of tablet 00:00: MOUTH [place] 00 EVERY DAY Medical Branch METFORMIN 2022-0 Yes [id number] TAKE 2 Un [place] ER 500 mg 3-08 TABLETS BY ity of 24 hr 00:00: MOUTH 2 [place] tablet 00 TIMES Medical DAILY WITH Branch FOOD HYDROXYZINE Yes [id number] TAKE 1 [facility] 50 mg 3-08 TABLET BY ity of tablet 00:00: MOUTH 3 [place] 00 TIMES Medical DAILY Branch NEEDED FOR ITCHING OR ANXIETY. *MAY IMPAIR ALERTNESS* * LEVETIRACET 2022- Yes [id number] TAKE 1 [facility] AM 1,000 mg 3-08 TABLET BY ity of tablet 00:00: MOUTH 2 [place] 00 TIMES Medical DAILY Branch SULFAMETHOX 2022-0 Yes [id number] TAKE 1 [facility] AZOLE-TRIME 3-08 TABLET BY ity of THOPRIM 00:00: MOUTH 2 [place] 800-160 mg 00 TIMES Medical per tablet DAILY WITH [facility] A GLASS OF WATER METOPROLOL 2022- Yes [id number] TAKE 1 U nivers SUCCINATE 3-08 TABLET BY ity o f XL 50 mg 24 00:00: MOUTH ONCE [place] hr tablet 00 DAILY WITH [facility] Branch HYDROCHLORO Yes [id number] 25mg TAKE 1 [facility] THIAZIDE 25 3-08 TABLET BY ity of mg tablet 00:00: MOUTH IN [place] 00 THE Medical MORNING Branch LOSARTAN Yes [id number] 100mg TAKE 1 [facility] [place] 100 mg 3-08 TABLET BY ity of tablet 00:00: MOUTH [place] 00 EVERY Medical MORNING. Branch PANTOPRAZOL Yes TAKE 1 Univ ers E 40 mg EC 3-08 TABLET BY ity of tablet 00:00: MOUTH ONCE [place] 00 DAILY Medical BEFORE A Branch MEAL blood sugar 2022- Yes [id number] USE 3 [facility] diagnostic 3-08 TIMES ity of (ONETOUCH 00:00: DAILY FOR [place] as VERIO TEST 00 BLOOD Medical STRIPS) GLUCOSE [place] strip MONITORING CLOPIDOGREL Yes [id number] TAKE 1 [facility] 75 mg 3-08 TABLET BY ity of tablet 00:00: MOUTH [place] 00 EVERY DAY Medical Branch METFORMIN 2022-0 Yes [id number] TAKE 2 [facility] [place] ER 500 mg 3-08 TABLETS BY ity of 24 hr 00:00: MOUTH 2 [place] tablet 00 TIMES Medical DAILY WITH [place] FOOD HYDROXYZINE Yes [id number] TAKE 1 [facility] 50 mg 3-08 TABLET BY ity of tablet 00:00: MOUTH 3 [place] 00 TIMES Medical DAILY Branch NEEDED FOR ITCHING OR ANXIETY. *MAY IMPAIR ALERTNESS* * LEVETIRACET Yes [id number] TAKE 1 [facility] AM 1,000 mg 3-08 TABLET BY ity of tablet 00:00: MOUTH 2 [place] 00 TIMES Medical DAILY Branch SULFAMETHOX 2022-0 Yes [id number] TAKE 1 [facility] AZOLE-TRIME 3-08 TABLET BY ity of THOPRIM 00:00: MOUTH 2 [place] 800-160 mg 00 TIMES Medical per tablet DAILY WITH [facility] A GLASS OF WATER METOPROLOL Yes [id number] TAKE 1 U nivers SUCCINATE 3-08 TABLET BY ity o f XL 50 mg 24 00:00: MOUTH ONCE [place] hr tablet 00 DAILY WITH [facility] HYDROCHLORO Yes [id number] 25mg TAKE 1 [facility] THIAZIDE 25 3-08 TABLET BY ity of mg tablet 00:00: MOUTH IN [place] 00 THE Medical MORNING Branch LOSARTAN Yes [id number] 100mg TAKE 1 [facility] [place] 100 mg 3-08 TABLET BY ity of tablet 00:00: MOUTH [place] 00 EVERY Medical MORNING. Branch PANTOPRAZOL Yes TAKE 1 Univ ers E 40 mg EC 3-08 TABLET BY ity of tablet 00:00: MOUTH ONCE [place] 00 DAILY Medical BEFORE A Branch MEAL blood sugar Yes [id number] USE 3 [facility] diagnostic 3-08 TIMES ity of (ONETOUCH 00:00: DAILY FOR [place] as VERIO TEST 00 BLOOD Medical STRIPS) GLUCOSE Branch strip MONITORING CLOPIDOGREL Yes [id number] TAKE 1 [facility] 75 mg 3-08 TABLET BY ity of tablet 00:00: MOUTH [place] 00 EVERY DAY Medical Branch METFORMIN 2022-0 Yes [id number] TAKE 2 Un [place] ER 500 mg 3-08 TABLETS BY ity of 24 hr 00:00: MOUTH 2 [place] tablet 00 TIMES Medical DAILY WITH Branch FOOD HYDROXYZINE Yes [id number] TAKE 1 [facility] 50 mg 3-08 TABLET BY ity of tablet 00:00: MOUTH 3 [place] 00 TIMES Medical DAILY Branch NEEDED FOR ITCHING OR ANXIETY. *MAY IMPAIR ALERTNESS* * LEVETIRACET Yes [id number] TAKE 1 [facility] AM 1,000 mg 3-08 TABLET BY ity of tablet 00:00: MOUTH 2 [place] 00 TIMES Medical DAILY Branch SULFAMETHOX 2022-0 Yes [id number] TAKE 1 [facility] AZOLE-TRIME 3-08 TABLET BY ity of THOPRIM 00:00: MOUTH 2 [place] 800-160 mg 00 TIMES Medical per tablet DAILY WITH [facility] A GLASS OF WATER METOPROLOL Yes [id number] TAKE 1 U nivers SUCCINATE 3-08 TABLET BY ity o f XL 50 mg 24 00:00: MOUTH ONCE [place] hr tablet 00 DAILY WITH [facility] FOOD Branch HYDROCHLORO Yes [id number] 25mg TAKE 1 [facility] THIAZIDE 25 3-08 TABLET BY ity of mg tablet 00:00: MOUTH IN [place] 00 THE Medical MORNING Branch LOSARTAN Yes [id number] 100mg TAKE 1 [facility] [place] 100 mg 3-08 TABLET BY ity of tablet 00:00: MOUTH [place] 00 EVERY Medical MORNING. Branch PANTOPRAZOL Yes TAKE 1 Univ ers E 40 mg EC 3-08 TABLET BY ity of tablet 00:00: MOUTH ONCE [place] 00 DAILY Medical BEFORE A Branch MEAL blood sugar Yes [id number] USE 3 [facility] diagnostic 3-08 TIMES ity of (ONETOUCH 00:00: DAILY FOR [place] as VERIO TEST 00 BLOOD Medical STRIPS) GLUCOSE Branch strip MONITORING CLOPIDOGREL 2022- Yes [id number] TAKE 1 [facility] 75 mg 3-08 TABLET BY ity of tablet 00:00: MOUTH [place] 00 EVERY DAY Medical Branch METFORMIN 2022-0 Yes [id number] TAKE 2 Un [place] ER 500 mg 3-08 TABLETS BY ity of 24 hr 00:00: MOUTH 2 [place] tablet 00 TIMES Medical DAILY WITH Branch FOOD HYDROXYZINE Yes [id number] TAKE 1 [facility] 50 mg 3-08 TABLET BY ity of tablet 00:00: MOUTH 3 [place] 00 TIMES Medical DAILY Branch NEEDED FOR ITCHING OR ANXIETY. *MAY IMPAIR ALERTNESS* * LEVETIRACET Yes [id number] TAKE 1 [facility] AM 1,000 mg 3-08 TABLET BY ity of tablet 00:00: MOUTH 2 [place] 00 TIMES Medical DAILY Branch SULFAMETHOX 2022-0 Yes [id number] TAKE 1 [facility] AZOLE-TRIME 3-08 TABLET BY ity of THOPRIM 00:00: MOUTH 2 [place] 800-160 mg 00 TIMES Medical per tablet DAILY WITH [facility] A GLASS OF WATER METOPROLOL Yes [id number] TAKE 1 U nivers SUCCINATE 3-08 TABLET BY ity o f XL 50 mg 24 00:00: MOUTH ONCE [place] hr tablet 00 DAILY WITH [facility] FOOD Branch HYDROCHLORO Yes [id number] 25mg TAKE 1 [facility] THIAZIDE 25 3-08 TABLET BY ity of mg tablet 00:00: MOUTH IN [place] 00 THE Medical MORNING Branch LOSARTAN 2022-0 Yes [id number] 100mg TAKE 1 [facility] [place] 100 mg 3-08 TABLET BY ity of tablet 00:00: MOUTH [place] 00 EVERY Medical MORNING. Branch PANTOPRAZOL Yes TAKE 1 Univ ers E 40 mg EC 3-08 TABLET BY ity of tablet 00:00: MOUTH ONCE [place] 00 DAILY Medical BEFORE A Branch MEAL blood sugar 2022-0 Yes [id number] USE 3 [facility] diagnostic 3-08 TIMES ity of (ONETOUCH 00:00: DAILY FOR [place] as VERIO TEST 00 BLOOD Medical STRIPS) GLUCOSE Branch strip MONITORING CLOPIDOGREL Yes [id number] TAKE 1 [facility] 75 mg 3-08 TABLET BY ity of tablet 00:00: MOUTH [place] 00 EVERY DAY Medical Branch METFORMIN 2022-0 Yes [id number] TAKE 2 Un [place] ER 500 mg 3-08 TABLETS BY ity of 24 hr 00:00: MOUTH 2 [place] tablet 00 TIMES Medical DAILY WITH [place] FOOD HYDROXYZINE 2022-0 Yes [id number] TAKE 1 [facility] 50 mg 3-08 TABLET BY ity of tablet 00:00: MOUTH 3 [place] 00 TIMES Medical DAILY Branch NEEDED FOR ITCHING OR ANXIETY. *MAY IMPAIR ALERTNESS* * LEVETIRACET 2022-0 Yes [id number] TAKE 1 [facility] AM 1,000 mg 3-08 TABLET BY ity of tablet 00:00: MOUTH 2 [place] 00 TIMES Medical DAILY Branch SULFAMETHOX 2022-0 Yes [id number] TAKE 1 [facility] AZOLE-TRIME 3-08 TABLET BY ity of THOPRIM 00:00: MOUTH 2 [place] 800-160 mg 00 TIMES Medical per tablet DAILY WITH [facility] A GLASS OF WATER METOPROLOL 2022-0 Yes [id number] TAKE 1 U nivers SUCCINATE 3-08 TABLET BY ity o f XL 50 mg 24 00:00: MOUTH ONCE [place] hr tablet 00 DAILY WITH [facility] Branch HYDROCHLORO 2022-0 Yes [id number] 25mg TAKE 1 [facility] THIAZIDE 25 3-08 TABLET BY ity of mg tablet 00:00: MOUTH IN s 00 THE Medical MORNING Branch LOSARTAN 2022-0 Yes [id number] 100mg TAKE 1 [facility] [place] 100 mg 3-08 TABLET BY ity of tablet 00:00: MOUTH [place] 00 EVERY Medical MORNING. Branch PANTOPRAZOL Yes TAKE 1 Univ ers E 40 mg EC 3-08 TABLET BY ity of tablet 00:00: MOUTH ONCE [place] 00 DAILY Medical BEFORE A Branch MEAL blood sugar 2022-0 Yes [id number] USE 3 [facility] diagnostic 3-08 TIMES ity of (ONETOUCH 00:00: DAILY FOR [place] as VERIO TEST 00 BLOOD Medical STRIPS) GLUCOSE Branch strip MONITORING CLOPIDOGREL 2022-0 Yes [id number] TAKE 1 [facility] 75 mg 3-08 TABLET BY ity of tablet 00:00: MOUTH [place] 00 EVERY DAY Medical Branch METFORMIN 2022-0 Yes [id number] TAKE 2 [facility] [place] ER 500 mg 3-08 TABLETS BY ity of 24 hr 00:00: MOUTH 2 [place] tablet 00 TIMES Medical DAILY WITH [place] FOOD LEVETIRACET 2022-0 Yes [id number] TAKE 1 [facility] AM 1,000 mg 3-08 TABLET BY ity of tablet 00:00: MOUTH 2 [place] 00 TIMES Medical DAILY Branch SULFAMETHOX 2022-0 Yes [id number] TAKE 1 [facility] AZOLE-TRIME 3-08 TABLET BY ity of THOPRIM 00:00: MOUTH 2 [place] 800-160 mg 00 TIMES Medical per tablet DAILY WITH [facility] A GLASS OF WATER METOPROLOL 2022-0 Yes [id number] TAKE 1 U nivers SUCCINATE 3-08 TABLET BY ity o f XL 50 mg 24 00:00: MOUTH ONCE [place] hr tablet 00 DAILY WITH [facility] radha FOOD Branch HYDROCHLORO 2022-0 Yes [id number] 25mg TAKE 1 [facility] THIAZIDE 25 3-08 TABLET BY ity of mg tablet 00:00: MOUTH IN [place] 00 THE Medical MORNING Branch LOSARTAN 2022-0 Yes [id number] 100mg TAKE 1 [facility] [place] 100 mg 3-08 TABLET BY ity of tablet 00:00: MOUTH [place] 00 EVERY Medical MORNING. Branch PANTOPRAZOL Yes TAKE 1 Univ ers E 40 mg EC 3-08 TABLET BY ity of tablet 00:00: MOUTH ONCE [place] 00 DAILY Medical BEFORE A Branch MEAL blood sugar 2022-0 Yes [id number] USE 3 [facility] diagnostic 3-08 TIMES ity of (ONETOUCH 00:00: DAILY FOR [place] as VERIO TEST 00 BLOOD Medical STRIPS) GLUCOSE Branch strip MONITORING CLOPIDOGREL 2022- Yes [id number] TAKE 1 [facility] 75 mg 3-08 TABLET BY ity of tablet 00:00: MOUTH [place] 00 EVERY DAY Medical Branch METFORMIN 2022-0 Yes [id number] TAKE 2 [facility] [place] ER 500 mg 3-08 TABLETS BY ity of 24 hr 00:00: MOUTH 2 [place] tablet 00 TIMES Medical DAILY WITH Branch FOOD LEVETIRACET 2022-0 Yes [id number] TAKE 1 [facility] AM 1,000 mg 3-08 TABLET BY ity of tablet 00:00: MOUTH 2 [place] 00 TIMES Medical DAILY Branch SULFAMETHOX 2022-0 Yes [id number] TAKE 1 [facility] AZOLE-TRIME 3-08 TABLET BY ity of THOPRIM 00:00: MOUTH 2 [place] 800-160 mg 00 TIMES Medical per tablet DAILY WITH [facility] A GLASS OF WATER METOPROLOL 2022-0 Yes [id number] TAKE 1 U nivers SUCCINATE 3-08 TABLET BY ity o f XL 50 mg 24 00:00: MOUTH ONCE [place] hr tablet 00 DAILY WITH [facility] FOOD Branch HYDROCHLORO Yes [id number] 25mg TAKE 1 [facility] THIAZIDE 25 3-08 TABLET BY ity of mg tablet 00:00: MOUTH IN [place] 00 THE Medical MORNING Branch LOSARTAN Yes [id number] 100mg TAKE 1 [facility] [place] 100 mg 3-08 TABLET BY ity of tablet 00:00: MOUTH [place] 00 EVERY Medical MORNING. Branch PANTOPRAZOL Yes TAKE 1 Univ ers E 40 mg EC 3-08 TABLET BY ity of tablet 00:00: MOUTH ONCE [place] 00 DAILY Medical BEFORE A Branch MEAL blood sugar 2022- Yes [id number] USE 3 [facility] diagnostic 3-08 TIMES ity of (ONETOUCH 00:00: DAILY FOR [facility] as VERIO TEST 00 BLOOD Medical STRIPS) GLUCOSE Branch strip MONITORING CLOPIDOGREL Yes [id number] TAKE 1 [facility] 75 mg 3-08 TABLET BY ity of tablet 00:00: MOUTH [place] 00 EVERY DAY Medical Branch METFORMIN 2022-0 Yes [id number] TAKE 2 [facility] [place] ER 500 mg 3-08 TABLETS BY ity of 24 hr 00:00: MOUTH 2 [place] tablet 00 TIMES Medical DAILY WITH [place] FOOD LEVETIRACET Yes [id number] TAKE 1 [facility] AM 1,000 mg 3-08 TABLET BY ity of tablet 00:00: MOUTH 2 [place] 00 TIMES Medical DAILY Branch SULFAMETHOX 2022-0 Yes [id number] TAKE 1 [facility] AZOLE-TRIME 3-08 TABLET BY ity of THOPRIM 00:00: MOUTH 2 [place] 800-160 mg 00 TIMES Medical per tablet DAILY WITH [facility] A GLASS OF WATER METOPROLOL 2022- Yes [id number] TAKE 1 U nivers SUCCINATE 3-08 TABLET BY ity o f XL 50 mg 24 00:00: MOUTH ONCE [place] hr tablet 00 DAILY WITH [facility] Branch HYDROCHLORO Yes [id number] 25mg TAKE 1 [facility] THIAZIDE 25 3-08 TABLET BY ity of mg tablet 00:00: MOUTH IN [place] 00 THE Medical MORNING Branch LOSARTAN Yes [id number] 100mg TAKE 1 [facility] [place] 100 mg 3-08 TABLET BY ity of tablet 00:00: MOUTH [place] 00 EVERY Medical MORNING. Branch PANTOPRAZOL Yes TAKE 1 Univ ers E 40 mg EC 3-08 TABLET BY ity of tablet 00:00: MOUTH ONCE [place] 00 DAILY Medical BEFORE A Branch MEAL blood sugar 2022- Yes [id number] USE 3 [facility] diagnostic 3-08 TIMES ity of (ONETOUCH 00:00: DAILY FOR [place] as VERIO TEST 00 BLOOD Medical STRIPS) GLUCOSE Branch strip MONITORING CLOPIDOGREL 2022-0 Yes [id number] TAKE 1 [facility] 75 mg 3-08 TABLET BY ity of tablet 00:00: MOUTH [place] 00 EVERY DAY Medical Branch METFORMIN 2022-0 Yes [id number] TAKE 2 [facility] [place] ER 500 mg 3-08 TABLETS BY ity of 24 hr 00:00: MOUTH 2 [place] tablet 00 TIMES Medical DAILY WITH Branch FOOD LEVETIRACET Yes [id number] TAKE 1 [facility] AM 1,000 mg 3-08 TABLET BY ity of tablet 00:00: MOUTH 2 [place] 00 TIMES Medical DAILY Branch SULFAMETHOX 2022-0 Yes [id number] TAKE 1 [facility] AZOLE-TRIME 3-08 TABLET BY ity of THOPRIM 00:00: MOUTH 2 [place] 800-160 mg 00 TIMES Medical per tablet DAILY WITH [facility] A GLASS OF WATER METOPROLOL Yes [id number] TAKE 1 U nivers SUCCINATE 3-08 TABLET BY ity o f XL 50 mg 24 00:00: MOUTH ONCE [place] hr tablet 00 DAILY WITH [facility] FOOD Branch HYDROCHLORO Yes [id number] 25mg TAKE 1 [facility] THIAZIDE 25 3-08 TABLET BY ity of mg tablet 00:00: MOUTH IN [place] 00 THE Medical MORNING Branch LOSARTAN 2022-0 Yes [id number] 100mg TAKE 1 [facility] [place] 100 mg 3-08 TABLET BY ity of tablet 00:00: MOUTH [place] 00 EVERY Medical MORNING. Branch PANTOPRAZOL Yes TAKE 1 Univ ers E 40 mg EC 3-08 TABLET BY ity of tablet 00:00: MOUTH ONCE [place] 00 DAILY Medical BEFORE A Branch MEAL blood sugar 2022- Yes [id number] USE 3 [facility] diagnostic 3-08 TIMES ity of (ONETOUCH 00:00: DAILY FOR [place] as VERIO TEST 00 BLOOD Medical STRIPS) GLUCOSE Branch strip MONITORING CLOPIDOGREL 2022- Yes [id number] TAKE 1 [facility] 75 mg 3-08 TABLET BY ity of tablet 00:00: MOUTH [place] 00 EVERY DAY Medical Branch METFORMIN 2022-0 Yes [id number] TAKE 2 [facility] [place] ER 500 mg 3-08 TABLETS BY ity of 24 hr 00:00: MOUTH 2 [place] tablet 00 TIMES Medical DAILY WITH Branch FOOD LEVETIRACET 2022-0 Yes [id number] TAKE 1 [facility] AM 1,000 mg 3-08 TABLET BY ity of tablet 00:00: MOUTH 2 [place] 00 TIMES Medical DAILY Branch SULFAMETHOX 2022-0 Yes [id number] TAKE 1 [facility] AZOLE-TRIME 3-08 TABLET BY ity of THOPRIM 00:00: MOUTH 2 [place] 800-160 mg 00 TIMES Medical per tablet DAILY WITH [facility] A GLASS OF WATER METOPROLOL 2022-0 Yes [id number] TAKE 1 U nivers SUCCINATE 3-08 TABLET BY ity o f XL 50 mg 24 00:00: MOUTH ONCE [place] hr tablet 00 DAILY WITH [facility] FOOD Branch HYDROCHLORO 2022-0 Yes [id number] 25mg TAKE 1 [facility] THIAZIDE 25 3-08 TABLET BY ity of mg tablet 00:00: [place] THE Medical MORNING Branch LOSARTAN 2022-0 Yes [id number] 100mg TAKE 1 [facility] [place] 100 mg 3-08 TABLET BY ity of tablet 00:00: MOUTH [place] 00 EVERY Medical MORNING. Branch PANTOPRAZOL Yes TAKE 1 Univ ers E 40 mg EC 3-08 TABLET BY ity of tablet 00:00: MOUTH ONCE [place] 00 DAILY Medical BEFORE A [place] MEAL blood sugar 2022-0 Yes [id number] USE 3 [facility] diagnostic 3-08 TIMES ity of (ONETOUCH 00:00: DAILY FOR [place] as VERIO TEST 00 BLOOD Medical STRIPS) GLUCOSE Branch strip MONITORING CLOPIDOGREL 2022-0 Yes [id number] TAKE 1 [facility] 75 mg 3-08 TABLET BY ity of tablet 00:00: MOUTH [place] 00 EVERY DAY Medical Branch METFORMIN 2022-0 Yes [id number] TAKE 2 [facility] [place] ER 500 mg 3-08 TABLETS BY ity of 24 hr 00:00: MOUTH 2 [place] tablet 00 TIMES Medical DAILY WITH Branch FOOD LEVETIRACET 2022-0 Yes [id number] TAKE 1 [facility] AM 1,000 mg 3-08 TABLET BY ity of tablet 00:00: MOUTH 2 [place] 00 TIMES Medical DAILY Branch SULFAMETHOX 2022-0 Yes [id number] TAKE 1 [facility] AZOLE-TRIME 3-08 TABLET BY ity of THOPRIM 00:00: MOUTH 2 [place] 800-160 mg 00 TIMES Medical per tablet DAILY WITH [facility] A GLASS OF WATER METOPROLOL Yes [id number] TAKE 1 U nivers SUCCINATE 3-08 TABLET BY ity o f XL 50 mg 24 00:00: MOUTH ONCE [place] hr tablet 00 DAILY WITH [facility] FOOD Branch HYDROCHLORO 0 Yes [id number] 25mg TAKE 1 [facility] THIAZIDE 25 3-08 TABLET BY ity of mg tablet 00:00: MOUTH [place] 00 THE Medical MORNING Branch LOSARTAN Yes [id number] 100mg TAKE 1 [facility] [place] 100 mg 3-08 TABLET BY ity of tablet 00:00: MOUTH [place] 00 EVERY Medical MORNING. Branch PANTOPRAZOL Yes TAKE 1 [facility] ers E 40 mg EC 3-08 TABLET BY ity of tablet 00:00: MOUTH ONCE [place] 00 DAILY Medical BEFORE A Branch MEAL blood sugar 2022- Yes [id number] USE 3 [facility] diagnostic 3-08 TIMES ity of (ONETOUCH 00:00: DAILY FOR [place] as VERIO TEST 00 BLOOD Medical STRIPS) GLUCOSE Branch strip MONITORING CLOPIDOGREL Yes [id number] TAKE 1 [facility] 75 mg 3-08 TABLET BY ity of tablet 00:00: MOUTH [place] 00 EVERY DAY Medical Branch METFORMIN 2022-0 Yes [id number] TAKE 2 [facility] [place] ER 500 mg 3-08 TABLETS BY ity of 24 hr 00:00: MOUTH 2 [place] tablet 00 TIMES Medical DAILY WITH Branch FOOD LEVETIRACET Yes [id number] TAKE 1 [facility] AM 1,000 mg 3-08 TABLET BY ity of tablet 00:00: MOUTH 2 [place] 00 TIMES Medical DAILY Branch SULFAMETHOX 2022-0 Yes [id number] TAKE 1 [facility] AZOLE-TRIME 3-08 TABLET BY ity of THOPRIM 00:00: MOUTH 2 [place] 800-160 mg 00 TIMES Medical per tablet DAILY WITH [facility] A GLASS OF WATER METOPROLOL Yes [id number] TAKE 1 U nivers SUCCINATE 3-08 TABLET BY ity o f XL 50 mg 24 00:00: MOUTH ONCE [place] hr tablet 00 DAILY WITH [facility] FOOD Branch HYDROCHLORO 2022-0 Yes [id number] 25mg TAKE 1 [facility] THIAZIDE 25 3-08 TABLET BY ity of mg tablet 00:00: MOUTH [place] 00 THE Medical MORNING Branch LOSARTAN Yes [id number] 100mg TAKE 1 [facility] [place] 100 mg 3-08 TABLET BY ity of tablet 00:00: MOUTH [place] 00 EVERY Medical MORNING. Branch PANTOPRAZOL Yes TAKE 1 [facility] ers E 40 mg EC 3-08 TABLET BY ity of tablet 00:00: MOUTH ONCE [place] 00 DAILY Medical BEFORE A Branch MEAL blood sugar Yes [id number] USE 3 [facility] diagnostic 3-08 TIMES ity of (ONETOUCH 00:00: DAILY FOR [place] as VERIO TEST 00 BLOOD Medical STRIPS) GLUCOSE Branch strip MONITORING CLOPIDOGREL Yes [id number] TAKE 1 [facility] 75 mg 3-08 TABLET BY ity of tablet 00:00: MOUTH [place] 00 EVERY DAY Medical Branch METFORMIN Yes [id number] TAKE 2 [facility] [place] ER 500 mg 3-08 TABLETS BY ity of 24 hr 00:00: MOUTH 2 [place] tablet 00 TIMES Medical DAILY WITH Branch FOOD LEVETIRACET Yes [id number] TAKE 1 [facility] AM 1,000 mg 3-08 TABLET BY ity of tablet 00:00: MOUTH 2 [place] 00 TIMES Medical DAILY Branch SULFAMETHOX 0 Yes [id number] TAKE 1 [facility] AZOLE-TRIME 3-08 TABLET BY ity of THOPRIM 00:00: MOUTH 2 [place] 800-160 mg 00 TIMES Medical per tablet DAILY WITH [facility] A GLASS OF WATER METOPROLOL Yes [id number] TAKE 1 U nivers SUCCINATE 3-08 TABLET BY ity o f XL 50 mg 24 00:00: MOUTH ONCE [place] hr tablet 00 DAILY WITH [facility] radha FOOD Branch HYDROCHLORO Yes [id number] 25mg TAKE 1 [facility] THIAZIDE 25 3-08 TABLET BY ity of mg tablet 00:00: MOUTH IN [place] 00 THE Medical MORNING Branch LOSARTAN Yes [id number] 100mg TAKE 1 [facility] [place] 100 mg 3-08 TABLET BY ity of tablet 00:00: MOUTH [place] 00 EVERY Medical MORNING. Branch PANTOPRAZOL Yes TAKE 1 Univ ers E 40 mg EC 3-08 TABLET BY ity of tablet 00:00: MOUTH ONCE [place] 00 DAILY Medical BEFORE A Branch MEAL blood sugar Yes [id number] USE 3 [facility] diagnostic 3-08 TIMES ity of (ONETOUCH 00:00: DAILY FOR [place] as VERIO TEST 00 BLOOD Medical STRIPS) GLUCOSE Branch strip MONITORING CLOPIDOGREL 2022-0 Yes [id number] TAKE 1 [facility] 75 mg 3-08 TABLET BY [facility] tablet 00:00: MOUTH [place] 00 EVERY DAY Medical Branch METFORMIN 2022-0 Yes [id number] TAKE 2 [facility] ER 500 mg 3-08 TABLETS BY ity of 24 hr 00:00: MOUTH 2 [place] tablet 00 TIMES Medical DAILY WITH Branch FOOD LEVETIRACET 2022-0 Yes [id number] TAKE 1 [facility] AM 1,000 mg 3-08 TABLET BY ity of tablet 00:00: MOUTH 2 [place] 00 TIMES Medical DAILY Branch SULFAMETHOX 2022-0 Yes [id number] TAKE 1 [facility] AZOLE-TRIME 3-08 TABLET BY ity of THOPRIM 00:00: MOUTH 2 [place] 800-160 mg 00 TIMES Medical per tablet DAILY WITH [facility] A GLASS OF WATER METOPROLOL 2022-0 Yes [id number] TAKE 1 U nivers SUCCINATE 3-08 TABLET BY ity o f XL 50 mg 24 00:00: MOUTH ONCE [place] hr tablet 00 DAILY WITH [facility] FOOD Branch HYDROCHLORO 2022-0 Yes [id number] 25mg TAKE 1 [facility] THIAZIDE 25 3-08 TABLET BY it[facility] mg tablet 00:00: [place] 00 THE Medical MORNING Branch LOSARTAN 2022-0 Yes [id number] 100mg TAKE 1 [facility] 100 mg 3-08 TABLET BY ity of tablet 00:00: MOUTH [place] 00 EVERY Medical MORNING. Branch PANTOPRAZOL 2022-0 Yes TAKE 1 [facility] ers E 40 mg EC 3-08 TABLET BY ity of tablet 00:00: MOUTH ONCE [place] 00 DAILY Medical BEFORE A Branch MEAL blood sugar 2022-0 Yes [id number] USE 3 [facility] diagnostic 3-08 TIMES ity of (ONETOUCH 00:00: DAILY FOR [place] as VERIO TEST 00 BLOOD Medical STRIPS) GLUCOSE Branch strip MONITORING CLOPIDOGREL 2022-0 Yes [id number] TAKE 1 [facility] 75 mg 3-08 TABLET BY ity of tablet 00:00: MOUTH [place] 00 EVERY DAY Medical Branch METFORMIN 2022-0 Yes [id number] TAKE 2 [facility] ER 500 mg 3-08 TABLETS BY ity of 24 hr 00:00: MOUTH 2 [place] tablet 00 TIMES Medical DAILY WITH Branch FOOD LEVETIRACET 2022-0 Yes [id number] TAKE 1 [facility] AM 1,000 mg 3-08 TABLET BY ity of tablet 00:00: MOUTH 2 [place] 00 TIMES Medical DAILY Branch SULFAMETHOX 2022-0 Yes [id number] TAKE 1 [facility] AZOLE-TRIME 3-08 TABLET BY ity of THOPRIM 00:00: MOUTH 2 [place] 800-160 mg 00 TIMES Medical per tablet DAILY WITH [facility] A GLASS OF WATER METOPROLOL 2022-0 Yes [id number] TAKE 1 U nivers SUCCINATE 3-08 TABLET BY ity o f XL 50 mg 24 00:00: MOUTH ONCE [place] hr tablet 00 DAILY WITH [facility] FOOD Branch HYDROCHLORO 2022-0 Yes [id number] 25mg TAKE 1 [facility] THIAZIDE 25 3-08 TABLET BY it[facility] of mg tablet 00:00: [place] 00 THE Medical MORNING Branch LOSARTAN 2022-0 Yes [id number] 100mg TAKE 1 [facility] 100 mg 3-08 TABLET BY ity of tablet 00:00: MOUTH [place] 00 EVERY Medical MORNING. Branch PANTOPRAZOL 2022-0 Yes TAKE 1 [facility] ers E 40 mg EC 3-08 TABLET BY ity of tablet 00:00: MOUTH ONCE [place] 00 DAILY Medical BEFORE A Branch MEAL blood sugar 2022-0 Yes [id number] USE 3 [facility] diagnostic 3-08 TIMES ity of (ONETOUCH 00:00: DAILY FOR [place] as VERIO TEST 00 BLOOD Medical STRIPS) GLUCOSE Branch strip MONITORING CLOPIDOGREL 2022-0 Yes [id number] TAKE 1 [facility] 75 mg 3-08 TABLET BY ity of tablet 00:00: MOUTH [place] 00 EVERY DAY Medical Branch METFORMIN 2022-0 Yes [id number] TAKE 2 [facility] ER 500 mg 3-08 TABLETS BY ity of 24 hr 00:00: MOUTH 2 [place] tablet 00 TIMES Medical DAILY WITH Branch FOOD LEVETIRACET 2022-0 Yes [id number] TAKE 1 [facility] AM 1,000 mg 3-08 TABLET BY ity of tablet 00:00: MOUTH 2 [place] 00 TIMES Medical DAILY Branch SULFAMETHOX 2022-0 Yes [id number] TAKE 1 [facility] AZOLE-TRIME 3-08 TABLET BY ity of THOPRIM 00:00: MOUTH 2 [place] 800-160 mg 00 TIMES Medical per tablet DAILY WITH [facility] A GLASS OF WATER METOPROLOL 2022-0 Yes [id number] TAKE 1 U nivers SUCCINATE 3-08 TABLET BY ity o f XL 50 mg 24 00:00: MOUTH ONCE [place] hr tablet 00 DAILY WITH Medi radha FOOD Branch HYDROCHLORO 2022-0 Yes [id number] 25mg TAKE 1 [facility] THIAZIDE 25 3-08 TABLET BY ity of mg tablet 00:00: [place] 00 THE Medical MORNING Branch LOSARTAN 2022-0 Yes [id number] 100mg TAKE 1 [facility] 100 mg 3-08 TABLET BY ity of tablet 00:00: MOUTH [place] 00 EVERY Medical MORNING. Branch PANTOPRAZOL 2022-0 Yes TAKE 1 [facility] ers E 40 mg EC 3-08 TABLET BY ity of tablet 00:00: MOUTH ONCE [place] 00 DAILY Medical BEFORE A Branch MEAL METOPROLOL 2022-0 Yes [id number] TAKE 1 U nivers SUCCINATE 3-08 TABLET BY ity o f XL 50 mg 24 00:00: MOUTH ONCE [place] hr tablet 00 DAILY WITH [facility] HYDROCHLORO 2022-0 Yes [id number] 25mg TAKE 1 [facility] THIAZIDE 25 3-08 TABLET BY ity of mg tablet 00:00: [place] 00 THE Medical MORNING Branch LOSARTAN 2022-0 Yes [id number] 100mg TAKE 1 [facility] [place] 100 mg 3-08 TABLET BY ity of tablet 00:00: MOUTH [place] 00 EVERY Medical MORNING. Branch PANTOPRAZOL 2022-0 Yes TAKE 1 [facility] ers E 40 mg EC 3-08 TABLET BY ity of tablet 00:00: MOUTH ONCE [place] 00 DAILY Medical BEFORE A Branch MEAL METOPROLOL 2022-0 Yes [id number] TAKE 1 U nivers SUCCINATE 3-08 TABLET BY ity o f XL 50 mg 24 00:00: MOUTH ONCE [place] hr tablet 00 DAILY WITH [facility] HYDROCHLORO 2022-0 Yes [id number] 25mg TAKE 1 [facility] THIAZIDE 25 3-08 TABLET BY ity of mg tablet 00:00: [place] 00 THE Medical MORNING Branch LOSARTAN 2022-0 Yes [id number] 100mg TAKE 1 [facility] [place] 100 mg 3-08 TABLET BY ity of tablet 00:00: MOUTH [place] 00 EVERY Medical MORNING. Branch PANTOPRAZOL 2022-0 Yes TAKE 1 [facility] ers E 40 mg EC 3-08 TABLET BY ity of tablet 00:00: MOUTH ONCE [place] 00 DAILY Medical BEFORE A Branch MEAL METOPROLOL 2022-0 Yes [id number] TAKE 1 U nivers SUCCINATE 3-08 TABLET BY ity o f XL 50 mg 24 00:00: MOUTH ONCE [place] hr tablet 00 DAILY WITH [facility] HYDROCHLORO 2022-0 Yes [id number] 25mg TAKE 1 [facility] THIAZIDE 25 3-08 TABLET BY ity of mg tablet 00:00: [place] 00 THE Medical MORNING Branch LOSARTAN 2022-0 Yes [id number] 100mg TAKE 1 [facility] [place] 100 mg 3-08 TABLET BY ity of tablet 00:00: MOUTH [place] 00 EVERY Medical MORNING. Branch PANTOPRAZOL 2022-0 Yes TAKE 1 [facility] ers E 40 mg EC 3-08 TABLET BY ity of tablet 00:00: MOUTH ONCE [place] 00 DAILY Medical BEFORE A Branch MEAL METOPROLOL 2022-0 Yes [id number] TAKE 1 U nivers SUCCINATE 3-08 TABLET BY ity o f XL 50 mg 24 00:00: MOUTH ONCE [place] hr tablet 00 DAILY WITH [facility] HYDROCHLORO 2022-0 Yes [id number] 25mg TAKE 1 [facility] THIAZIDE 25 3-08 TABLET BY ity of mg tablet 00:00: [place]TH [place] 00 THE Medical MORNING Branch LOSARTAN 2022-0 Yes [id number] 100mg TAKE 1 [facility] [place] 100 mg 3-08 TABLET BY ity of tablet 00:00: MOUTH [place] 00 EVERY Medical MORNING. Branch PANTOPRAZOL 2022-0 Yes TAKE 1 [facility] ers E 40 mg EC 3-08 TABLET BY ity of tablet 00:00: MOUTH ONCE [place] 00 DAILY Medical BEFORE A Branch MEAL METOPROLOL 2022-0 Yes [id number] TAKE 1 U nivers SUCCINATE 3-08 TABLET BY ity o f XL 50 mg 24 00:00: MOUTH ONCE [place] hr tablet 00 DAILY WITH [facility] HYDROCHLORO 2022-0 Yes [id number] 25mg TAKE 1 [facility] THIAZIDE 25 3-08 TABLET BY ity of mg tablet 00:00: [place] 00 THE Medical MORNING Branch LOSARTAN 2022-0 Yes [id number] 100mg TAKE 1 [facility] [place] 100 mg 3-08 TABLET BY ity of tablet 00:00: MOUTH [place] 00 EVERY Medical MORNING. Branch PANTOPRAZOL 2022-0 Yes TAKE 1 [facility] ers E 40 mg EC 3-08 TABLET BY ity of tablet 00:00: MOUTH ONCE [place] 00 DAILY Medical BEFORE A Branch MEAL METOPROLOL 2022-0 Yes [id number] TAKE 1 U nivers SUCCINATE 3-08 TABLET BY ity o f XL 50 mg 24 00:00: MOUTH ONCE [place] hr tablet 00 DAILY WITH [facility] HYDROCHLORO 2023-0 Yes [id number] 25mg TAKE 1 [facility] THIAZIDE 25 3-08 TABLET BY ity of mg tablet 00:00: [place] 00 THE Medical MORNING Branch LOSARTAN 2022-0 Yes [id number] 100mg TAKE 1 [facility] [place] 100 mg 3-08 TABLET BY ity of tablet 00:00: MOUTH [place] 00 EVERY Medical MORNING. Branch PANTOPRAZOL 2022-0 Yes TAKE 1 [facility] ers E 40 mg EC 3-08 TABLET BY ity of tablet 00:00: MOUTH ONCE [place] 00 DAILY Medical BEFORE A Branch MEAL METOPROLOL 2022-0 Yes [id number] TAKE 1 U nivers SUCCINATE 3-08 TABLET BY ity o f XL 50 mg 24 00:00: MOUTH ONCE [place] hr tablet 00 DAILY WITH [facility] HYDROCHLORO 2022-0 Yes [id number] 25mg TAKE 1 [facility] THIAZIDE 25 3-08 TABLET BY ity of mg tablet 00:00: [place] 00 THE Medical MORNING Branch LOSARTAN 2022-0 Yes [id number] 100mg TAKE 1 [facility] [place] 100 mg 3-08 TABLET BY ity of tablet 00:00: MOUTH [place] 00 EVERY Medical MORNING. Branch PANTOPRAZOL 2022-0 Yes TAKE 1 [facility] ers E 40 mg EC 3-08 TABLET BY ity of tablet 00:00: MOUTH ONCE [place] 00 DAILY Medical BEFORE A Branch MEAL METOPROLOL 2022-0 Yes [id number] TAKE 1 U nivers SUCCINATE 3-08 TABLET BY ity o f XL 50 mg 24 00:00: MOUTH ONCE [place] hr tablet 00 DAILY WITH [facility] HYDROCHLORO 2022-0 Yes [id number] 25mg TAKE 1 [facility] THIAZIDE 25 3-08 TABLET BY ity of mg tablet 00:00: [place] 00 THE Medical MORNING Branch LOSARTAN 2022-0 Yes [id number] 100mg TAKE 1 [facility] [place] 100 mg 3-08 TABLET BY ity of tablet 00:00: MOUTH [place] 00 EVERY Medical MORNING. Branch PANTOPRAZOL 2022-0 Yes TAKE 1 [facility] ers E 40 mg EC 3-08 TABLET BY ity of tablet 00:00: MOUTH ONCE [place] 00 DAILY Medical BEFORE A Branch MEAL METOPROLOL 2022-0 Yes [id number] TAKE 1 U nivers SUCCINATE 3-08 TABLET BY ity o f XL 50 mg 24 00:00: MOUTH ONCE [place] hr tablet 00 DAILY WITH [facility] HYDROCHLORO 2023-0 Yes [id number] 25mg TAKE 1 [facility] THIAZIDE 25 3-08 TABLET BY ity of mg tablet 00:00: [place] 00 THE Medical MORNING Branch LOSARTAN 2022-0 Yes [id number] 100mg TAKE 1 [facility] 100 mg 3-08 TABLET BY ity of tablet 00:00: MOUTH [place] 00 EVERY Medical MORNING. Branch PANTOPRAZOL 2022-0 Yes TAKE 1 [facility] ers E 40 mg EC 3-08 TABLET BY ity of tablet 00:00: MOUTH ONCE [place] 00 DAILY Medical BEFORE A Branch MEAL METOPROLOL 2022-0 Yes [id number] TAKE 1 U nivers SUCCINATE 3-08 TABLET BY ity o f XL 50 mg 24 00:00: MOUTH ONCE [place] hr tablet 00 DAILY WITH [facility] HYDROCHLORO 2022-0 Yes [id number] 25mg TAKE 1 [facility] THIAZIDE 25 3-08 TABLET BY ity of mg tablet 00:00: M[place]TH [place] 00 THE Medical MORNING Branch LOSARTAN 2022-0 Yes [id number] 100mg TAKE 1 [facility] [place] 100 mg 3-08 TABLET BY ity of tablet 00:00: MOUTH [place] 00 EVERY Medical MORNING. Branch PANTOPRAZOL 2022-0 Yes TAKE 1 [facility] ers E 40 mg EC 3-08 TABLET BY ity of tablet 00:00: MOUTH ONCE [place] 00 DAILY Medical BEFORE A Branch MEAL METOPROLOL 2022-0 Yes [id number] TAKE 1 U nivers SUCCINATE 3-08 TABLET BY ity o f XL 50 mg 24 00:00: MOUTH ONCE [place] hr tablet 00 DAILY WITH [facility] HYDROCHLORO 2022-0 Yes [id number] 25mg TAKE 1 [facility] THIAZIDE 25 3-08 TABLET BY ity of mg tablet 00:00: [place]TH [place] 00 THE Medical MORNING Branch LOSARTAN 2022-0 Yes [id number] 100mg TAKE 1 [facility] [place] 100 mg 3-08 TABLET BY ity of tablet 00:00: MOUTH [place] 00 EVERY Medical MORNING. Branch PANTOPRAZOL 2022-0 Yes TAKE 1 [facility] ers E 40 mg EC 3-08 TABLET BY ity of tablet 00:00: MOUTH ONCE [place] 00 DAILY Medical BEFORE A Branch MEAL METOPROLOL 2022-0 Yes [id number] TAKE 1 U nivers SUCCINATE 3-08 TABLET BY ity o f XL 50 mg 24 00:00: MOUTH ONCE [place] hr tablet 00 DAILY WITH [facility] Branch HYDROCHLORO 2022-0 Yes [id number] 25mg TAKE 1 [facility] THIAZIDE 25 3-08 TABLET BY ity of mg tablet 00:00: [place] 00 THE Medical MORNING Branch LOSARTAN 2022-0 Yes [id number] 100mg TAKE 1 [facility] [place] 100 mg 3-08 TABLET BY ity of tablet 00:00: MOUTH [place] 00 EVERY Medical MORNING. Branch PANTOPRAZOL 2022-0 Yes TAKE 1 [facility] ers E 40 mg EC 3-08 TABLET BY ity of tablet 00:00: MOUTH ONCE [place] 00 DAILY Medical BEFORE A Branch MEAL METOPROLOL 2022-0 Yes [id number] TAKE 1 U nivers SUCCINATE 3-08 TABLET BY ity o f XL 50 mg 24 00:00: MOUTH ONCE [place] hr tablet 00 DAILY WITH [facility] HYDROCHLORO 2022-0 Yes [id number] 25mg TAKE 1 [facility] THIAZIDE 25 3-08 TABLET BY ity of mg tablet 00:00: M[place]TH [place] 00 THE Medical MORNING Branch LOSARTAN 2022-0 Yes [id number] 100mg TAKE 1 [facility] [place] 100 mg 3-08 TABLET BY ity of tablet 00:00: MOUTH [place] 00 EVERY Medical MORNING. Branch PANTOPRAZOL 2022-0 Yes TAKE 1 [facility] ers E 40 mg EC 3-08 TABLET BY ity of tablet 00:00: MOUTH ONCE [place] 00 DAILY Medical BEFORE A Branch MEAL METOPROLOL 2022-0 Yes [id number] TAKE 1 U nivers SUCCINATE 3-08 TABLET BY ity o f XL 50 mg 24 00:00: MOUTH ONCE [place] hr tablet 00 DAILY WITH [facility] HYDROCHLORO 2022-0 Yes [id number] 25mg TAKE 1 [facility] THIAZIDE 25 3-08 TABLET BY ity of mg tablet 00:00: MOUTH [place] 00 THE Medical MORNING Branch LOSARTAN 2022-0 Yes [id number] 100mg TAKE 1 [facility] [place] 100 mg 3-08 TABLET BY ity of tablet 00:00: MOUTH [place] 00 EVERY Medical MORNING. Branch PANTOPRAZOL 2022-0 Yes TAKE 1 [facility] ers E 40 mg EC 3-08 TABLET BY ity of tablet 00:00: MOUTH ONCE [place] 00 DAILY Medical BEFORE A Branch MEAL METOPROLOL 2022-0 Yes [id number] TAKE 1 U nivers SUCCINATE 3-08 TABLET BY ity o f XL 50 mg 24 00:00: MOUTH ONCE [place] hr tablet 00 DAILY WITH [facility] HYDROCHLORO 2022-0 Yes [id number] 25mg TAKE 1 [facility] THIAZIDE 25 3-08 TABLET BY ity of mg tablet 00:00: MOUTH [place] 00 THE Medical MORNING Branch LOSARTAN 2022-0 Yes [id number] 100mg TAKE 1 [facility] [place] 100 mg 3-08 TABLET BY ity of tablet 00:00: MOUTH [place] 00 EVERY Medical MORNING. Branch PANTOPRAZOL 2022-0 Yes TAKE 1 [facility] ers E 40 mg EC 3-08 TABLET BY ity of tablet 00:00: MOUTH ONCE [place] 00 DAILY Medical BEFORE A Branch MEAL METOPROLOL 2022-0 Yes [id number] TAKE 1 U nivers SUCCINATE 3-08 TABLET BY ity o f XL 50 mg 24 00:00: MOUTH ONCE [place] hr tablet 00 DAILY WITH [facility] HYDROCHLORO 2022-0 Yes [id number] 25mg TAKE 1 [facility] THIAZIDE 25 3-08 TABLET BY ity of mg tablet 00:00: MOUTH IN [place] 00 THE Medical MORNING Branch LOSARTAN 2022-0 Yes [id number] 100mg TAKE 1 [facility] [place] 100 mg 3-08 TABLET BY ity of tablet 00:00: MOUTH [place] 00 EVERY Medical MORNING. Branch PANTOPRAZOL 2022- Yes TAKE 1 [facility] ers E 40 mg EC 3-08 TABLET BY ity of tablet 00:00: MOUTH ONCE [place] 00 DAILY Medical BEFORE A Branch MEAL METOPROLOL 2022-0 Yes [id number] TAKE 1 U nivers SUCCINATE 3-08 TABLET BY ity o f XL 50 mg 24 00:00: MOUTH ONCE [place] hr tablet 00 DAILY WITH [facility] HYDROCHLORO 2022-0 Yes [id number] 25mg TAKE 1 [facility] THIAZIDE 25 3-08 TABLET BY ity of mg tablet 00:00: M[place]TH [place] 00 THE Medical MORNING Branch LOSARTAN 2022-0 Yes [id number] 100mg TAKE 1 [facility] [place] 100 mg 3-08 TABLET BY ity of tablet 00:00: MOUTH [place] 00 EVERY Medical MORNING. Branch PANTOPRAZOL 2022-0 Yes TAKE 1 [facility] ers E 40 mg EC 3-08 TABLET BY ity of tablet 00:00: MOUTH ONCE [place] 00 DAILY Medical BEFORE A Branch MEAL METOPROLOL 2022-0 Yes [id number] TAKE 1 U nivers SUCCINATE 3-08 TABLET BY ity o f XL 50 mg 24 00:00: MOUTH ONCE [place] hr tablet 00 DAILY WITH [facility] Branch HYDROCHLORO 2022-0 Yes [id number] 25mg TAKE 1 [facility] THIAZIDE 25 3-08 TABLET BY ity of mg tablet 00:00: [place]TH [place] 00 THE Medical MORNING Branch LOSARTAN 2022-0 Yes [id number] 100mg TAKE 1 [facility] [place] 100 mg 3-08 TABLET BY ity of tablet 00:00: MOUTH [place] 00 EVERY Medical MORNING. Branch PANTOPRAZOL 2022-0 Yes TAKE 1 [facility] ers E 40 mg EC 3-08 TABLET BY ity of tablet 00:00: MOUTH ONCE [place] 00 DAILY Medical BEFORE A Branch MEAL METOPROLOL 2022-0 Yes [id number] TAKE 1 U nivers SUCCINATE 3-08 TABLET BY ity o f XL 50 mg 24 00:00: MOUTH ONCE [place] hr tablet 00 DAILY WITH [facility] HYDROCHLORO 2022-0 Yes [id number] 25mg TAKE 1 [facility] THIAZIDE 25 3-08 TABLET BY ity of mg tablet 00:00: M[place]TH [place] 00 THE Medical MORNING Branch LOSARTAN 2022-0 Yes [id number] 100mg TAKE 1 [facility] [place] 100 mg 3-08 TABLET BY ity of tablet 00:00: MOUTH [place] 00 EVERY Medical MORNING. Branch PANTOPRAZOL 2022-0 Yes TAKE 1 [facility] ers E 40 mg EC 3-08 TABLET BY ity of tablet 00:00: MOUTH ONCE [place] 00 DAILY Medical BEFORE A Branch MEAL METOPROLOL 2022-0 Yes [id number] TAKE 1 U nivers SUCCINATE 3-08 TABLET BY ity o f XL 50 mg 24 00:00: MOUTH ONCE [place] hr tablet 00 DAILY WITH [facility] HYDROCHLORO 2022-0 Yes [id number] 25mg TAKE 1 [facility] THIAZIDE 25 3-08 TABLET BY ity of mg tablet 00:00: MOUTH [place] 00 THE Medical MORNING Branch LOSARTAN 2022-0 Yes [id number] 100mg TAKE 1 [facility] [place] 100 mg 3-08 TABLET BY ity of tablet 00:00: MOUTH [place] 00 EVERY Medical MORNING. Branch PANTOPRAZOL 2022-0 Yes TAKE 1 [facility] ers E 40 mg EC 3-08 TABLET BY ity of tablet 00:00: MOUTH ONCE [place] 00 DAILY Medical BEFORE A Branch MEAL METOPROLOL 2022-0 Yes [id number] TAKE 1 U nivers SUCCINATE 3-08 TABLET BY ity o f XL 50 mg 24 00:00: MOUTH ONCE [place] hr tablet 00 DAILY WITH [facility] Branch HYDROCHLORO 2022-0 Yes [id number] 25mg TAKE 1 [facility] THIAZIDE 25 3-08 TABLET BY ity of mg tablet 00:00: MOUTH IN [place] 00 THE Medical MORNING Branch LOSARTAN 2022-0 Yes [id number] 100mg TAKE 1 [facility] [place] 100 mg 3-08 TABLET BY ity of tablet 00:00: MOUTH [place] 00 EVERY Medical MORNING. Branch PANTOPRAZOL 2022-0 Yes TAKE 1 [facility] ers E 40 mg EC 3-08 TABLET BY ity of tablet 00:00: MOUTH ONCE [place] 00 DAILY Medical BEFORE A Branch MEAL METOPROLOL 2022-0 Yes [id number] TAKE 1 U nivers SUCCINATE 3-08 TABLET BY ity o f XL 50 mg 24 00:00: MOUTH ONCE [place] hr tablet 00 DAILY WITH [facility] HYDROCHLORO 2022-0 Yes [id number] 25mg TAKE 1 [facility] THIAZIDE 25 3-08 TABLET BY ity of mg tablet 00:00: MOUTH IN [place] 00 THE Medical MORNING Branch LOSARTAN 2022-0 Yes [id number] 100mg TAKE 1 [facility] [place] 100 mg 3-08 TABLET BY ity of tablet 00:00: MOUTH [place] 00 EVERY Medical MORNING. Branch PANTOPRAZOL 2022-0 Yes TAKE 1 [facility] ers E 40 mg EC 3-08 TABLET BY ity of tablet 00:00: MOUTH ONCE [place] 00 DAILY Medical BEFORE A Branch MEAL METOPROLOL 2022-0 Yes [id number] TAKE 1 U nivers SUCCINATE 3-08 TABLET BY ity o f XL 50 mg 24 00:00: MOUTH ONCE [place] hr tablet 00 DAILY WITH [facility] HYDROCHLORO 2022-0 Yes [id number] 25mg TAKE 1 [facility] THIAZIDE 25 3-08 TABLET BY ity of mg tablet 00:00: MOUTH IN [place] 00 THE Medical MORNING Branch LOSARTAN 2022-0 Yes [id number] 100mg TAKE 1 [facility] [place] 100 mg 3-08 TABLET BY ity of tablet 00:00: MOUTH [place] 00 EVERY Medical MORNING. Branch PANTOPRAZOL 2022-0 Yes TAKE 1 Univ ers E 40 mg EC 3-08 TABLET BY ity of tablet 00:00: MOUTH ONCE [place] 00 DAILY Medical BEFORE A Branch MEAL METOPROLOL 2022-0 Yes [id number] TAKE 1 U nivers SUCCINATE 3-08 TABLET BY ity o f XL 50 mg 24 00:00: MOUTH ONCE [place] hr tablet 00 DAILY WITH [facility] Branch HYDROCHLORO 2022-0 Yes [id number] 25mg TAKE 1 [facility] THIAZIDE 25 3-08 TABLET BY ity of mg tablet 00:00: MOUTH IN [place] 00 THE Medical MORNING Branch LOSARTAN 2022-0 Yes [id number] 100mg TAKE 1 [facility] [place] 100 mg 3-08 TABLET BY ity of tablet 00:00: MOUTH [place] 00 EVERY Medical MORNING. Branch PANTOPRAZOL 2022-0 Yes TAKE 1 Univ ers E 40 mg EC 3-08 TABLET BY ity of tablet 00:00: MOUTH ONCE [place] 00 DAILY Medical BEFORE A Branch MEAL METOPROLOL 2022-0 Yes [id number] TAKE 1 U nivers SUCCINATE 3-08 TABLET BY ity o f XL 50 mg 24 00:00: MOUTH ONCE [place] hr tablet 00 DAILY WITH [facility] HYDROCHLORO 2022-0 Yes [id number] 25mg TAKE 1 [facility] THIAZIDE 25 3-08 TABLET BY ity of mg tablet 00:00: MOUTH IN [place] 00 THE Medical MORNING Branch LOSARTAN 2022-0 Yes [id number] 100mg TAKE 1 [facility] [place] 100 mg 3-08 TABLET BY ity of tablet 00:00: MOUTH [place] 00 EVERY Medical MORNING. Branch PANTOPRAZOL 2022-0 Yes TAKE 1 Univ ers E 40 mg EC 3-08 TABLET BY ity of tablet 00:00: MOUTH ONCE [place] 00 DAILY Medical BEFORE A Branch MEAL METOPROLOL 2022-0 Yes [id number] TAKE 1 U nivers SUCCINATE 3-08 TABLET BY ity o f XL 50 mg 24 00:00: MOUTH ONCE [place] hr tablet 00 DAILY WITH [facility] HYDROCHLORO 2022-0 Yes [id number] 25mg TAKE 1 [facility] THIAZIDE 25 3-08 TABLET BY ity of mg tablet 00:00: MOUTH [place] 00 THE Medical MORNING Branch LOSARTAN 2022-0 Yes [id number] 100mg TAKE 1 [facility] [place] 100 mg 3-08 TABLET BY ity of tablet 00:00: MOUTH [place] 00 EVERY Medical MORNING. Branch PANTOPRAZOL 2022-0 Yes TAKE 1 Univ ers E 40 mg EC 3-08 TABLET BY ity of tablet 00:00: MOUTH ONCE [place] 00 DAILY Medical BEFORE A Branch MEAL METOPROLOL 2022-0 Yes [id number] TAKE 1 U nivers SUCCINATE 3-08 TABLET BY ity o f XL 50 mg 24 00:00: MOUTH ONCE [place] hr tablet 00 DAILY WITH [facility] HYDROCHLORO 3-0 Yes [id number] 25mg TAKE 1 [facility] THIAZIDE 25 3-08 TABLET BY ity of mg tablet 00:00: MOUTH [place] 00 THE Medical MORNING Branch LOSARTAN 2022-0 Yes [id number] 100mg TAKE 1 [facility] 100 mg 3-08 TABLET BY ity of tablet 00:00: MOUTH [place] 00 EVERY Medical MORNING. Branch PANTOPRAZOL 2022-0 Yes TAKE 1 Univ ers E 40 mg EC 3-08 TABLET BY ity of tablet 00:00: MOUTH ONCE [place] 00 DAILY Medical BEFORE A Branch MEAL METOPROLOL 2022-0 Yes [id number] TAKE 1 U nivers SUCCINATE 3-08 TABLET BY ity o f XL 50 mg 24 00:00: MOUTH ONCE [place] hr tablet 00 DAILY WITH [facility] FOOD Branch HYDROCHLORO 2022-0 Yes [id number] 25mg TAKE 1 [facility] THIAZIDE 25 3-08 TABLET BY ity of mg tablet 00:00: MOUTH [place] 00 THE Medical MORNING Branch LOSARTAN 2022-0 Yes [id number] 100mg TAKE 1 [facility] 100 mg 3-08 TABLET BY ity of tablet 00:00: MOUTH [place] 00 EVERY Medical MORNING. Branch LOSARTAN 2022-0 Yes [id number] 100mg TAKE 1 [facility] 100 mg 3-08 TABLET BY ity of tablet 00:00: MOUTH [place] 00 EVERY Medical MORNING. Branch LOSARTAN 2022-0 Yes [id number] 100mg TAKE 1 [facility] 100 mg 3-08 TABLET BY ity of tablet 00:00: MOUTH [place] 00 EVERY Medical MORNING. Branch LOSARTAN 2022-0 Yes [id number] 100mg TAKE 1 [facility] 100 mg 3-08 TABLET BY ity of tablet 00:00: MOUTH [place] 00 EVERY Medical MORNING. Branch LOSARTAN 2022-0 Yes [id number] 100mg TAKE 1 [facility] 100 mg 3-08 TABLET BY ity of tablet 00:00: MOUTH [place] 00 EVERY Medical MORNING. Branch LOSARTAN 2022-0 Yes [id number] 100mg TAKE 1 [facility] 100 mg 3-08 TABLET BY ity of tablet 00:00: MOUTH [place] 00 EVERY Medical MORNING. Branch LOSARTAN 2022-0 Yes [id number] 100mg TAKE 1 [facility] 100 mg 3-08 TABLET BY ity of tablet 00:00: MOUTH [place] 00 EVERY Medical MORNING. Branch PANTOPRAZOL 2022-0 2022- No TAKE 1 Uni vers E 40 mg EC 3-08 08-21 TABLET BY ity of tablet 00:00: 00:00 MOUTH [place]CE [place] 00 :00 DAILY Medical BEFORE A Branch MEAL METOPROLOL 2022- No [id number] TAKE 1 [facility] SUCCINATE 05-28 TABLET BY ity of XL 50 mg 24 00:00: 00:00 MOUTH ONCE [place] hr tablet 00 :00 DAILY WITH [facility] FOOD Branch HYDROCHLORO 2022- No [id number] 25mg TAKE 1 [facility] THIAZIDE 25 05-28 TABLET BY it y of mg tablet 00:00: 00:00 MOUTH IN [place] 00 :00 THE Medical MORNING Branch blood sugar 2022- No [id number] USE 3 [facility] diagnostic 05-28- TIMES ity of (ONETOUCH 00:00: 00:00 [place] VERIO TEST 00 :00 BLOOD Medical STRIPS) GLUCOSE Branch strip MONITORING CLOPIDOGREL 2022- No [id number] TAKE 1 [facility] 75 mg 05-28 TABLET BY ity of tablet 00:00: 00:00 MOUTH [place] 00 :00 EVERY DAY Medical Branch METFORMIN 2022- No [id number] TAKE 2 U nivers ER 500 mg 05-28 TABLETS BY ity of 24 hr 00:00: 00:00 MOUTH 2 [place] tablet 00 :00 TIMES Medical DAILY WITH Branch FOOD LEVETIRACET 2022- No [id number] TAKE 1 [facility] AM 1,000 mg 05-28 TABLET BY it y of tablet 00:00: 00:00 MOUTH 2 [place] 00 :00 TIMES Medical DAILY Branch SULFAMETHOX 2022- No [id number] TAKE 1 [facility] AZOLE-TRIME 05-28 TABLET BY it y of THOPRIM 00:00: 00:00 MOUTH 2 [place] 800-160 mg 00 :00 TIMES Medical per tablet DAILY WITH [facility] A GLASS OF WATER HYDROXYZINE 2022- No [id number] TAKE 1 [facility] 50 mg 05-28 TABLET BY ity of tablet 00:00: 00:00 MOUTH 3 [place] 00 :00 TIMES Medical DAILY Branch NEEDED FOR ITCHING OR ANXIETY. *MAY IMPAIR ALERTNESS* * LATUDA 40 2022- No [id number] TAKE 1 [facility] mg tablet 05-2815 TABLET BY ity of 00:00: 00:00 MOUTH AT [place] 00 :00 BEDTIME Medical Branch LATUDA 40 3-0 2023- No [id number] TAKE 1 [facility] mg tablet 3-08 -15 TABLET BY ity of 00:00: 00:00 MOUTH AT [place] 00 :00 BEDTIME Medical Branch LATUDA 40 2022-0 2023- No [id number] TAKE 1 [facility] mg tablet 3-08 -15 TABLET BY ity of 00:00: 00:00 MOUTH AT [place] 00 :00 BEDTIME Medical Branch IBUPROFEN 2022-0 Yes [id number] TAKE 1 U nivers 800 mg 3-07 TABLET BY ity of tablet 00:00: MOUTH [place] 00 EVERY 6 Medical HOURS WITH Branch FOOD NEEDED FOR PAIN *DO NOT TAKE ASPIRIN* IBUPROFEN 2022-0 Yes [id number] TAKE 1 U nivers 800 mg 3-07 TABLET BY ity of tablet 00:00: [facility] 00 EVERY 6 Medical HOURS WITH Branch FOOD NEEDED FOR PAIN *DO NOT TAKE ASPIRIN* IBUPROFEN 2022-0 Yes [id number] TAKE 1 U nivers 800 mg 3-07 TABLET BY ity of tablet 00:00: [facility] 00 EVERY 6 Medical HOURS WITH Branch FOOD NEEDED FOR PAIN *DO NOT TAKE ASPIRIN* IBUPROFEN 2022-0 Yes [id number] TAKE 1 U nivers 800 mg 3-07 TABLET BY ity of tablet 00:00: [facility] 00 EVERY 6 Medical HOURS WITH Branch FOOD NEEDED FOR PAIN *DO NOT TAKE ASPIRIN* IBUPROFEN 2022-0 Yes [id number] TAKE 1 U nivers 800 mg 3-07 TABLET BY ity of tablet 00:00: [facility] 00 EVERY 6 Medical HOURS WITH Branch FOOD NEEDED FOR PAIN *DO NOT TAKE ASPIRIN* IBUPROFEN 2022-0 Yes [id number] TAKE 1 U nivers 800 mg 3-07 TABLET BY ity of tablet 00:00: MOUTH [place] 00 EVERY 6 Medical HOURS WITH Branch FOOD NEEDED FOR PAIN *DO NOT TAKE ASPIRIN* IBUPROFEN 2022-0 Yes [id number] TAKE 1 U nivers 800 mg 3-07 TABLET BY ity of tablet 00:00: [facility] 00 EVERY 6 Medical HOURS WITH Branch FOOD NEEDED FOR PAIN *DO NOT TAKE ASPIRIN* IBUPROFEN 2022-0 Yes [id number] TAKE 1 U nivers 800 mg 3-07 TABLET BY ity of tablet 00:00: MOUTH [place] 00 EVERY 6 Medical HOURS WITH Branch FOOD NEEDED FOR PAIN *DO NOT TAKE ASPIRIN* IBUPROFEN 2022-0 Yes [id number] TAKE 1 U nivers 800 mg 3-07 TABLET BY ity of tablet 00:00: MOUTH [place] 00 EVERY 6 Medical HOURS WITH Branch FOOD NEEDED FOR PAIN *DO NOT TAKE ASPIRIN* IBUPROFEN 2022-0 Yes [id number] TAKE 1 U nivers 800 mg 3-07 TABLET BY ity of tablet 00:00: MOUTH [place] 00 EVERY 6 Medical HOURS WITH Branch FOOD NEEDED FOR PAIN *DO NOT TAKE ASPIRIN* IBUPROFEN 2022-0 Yes [id number] TAKE 1 U nivers 800 mg 3-07 TABLET BY ity of tablet 00:00: MOUTH [place] 00 EVERY 6 Medical HOURS WITH Branch FOOD NEEDED FOR PAIN *DO NOT TAKE ASPIRIN* IBUPROFEN 2022-0 Yes [id number] TAKE 1 U nivers 800 mg 3-07 TABLET BY ity of tablet 00:00: MOUTH [place] 00 EVERY 6 Medical HOURS WITH Branch FOOD NEEDED FOR PAIN *DO NOT TAKE ASPIRIN* IBUPROFEN 2022-0 Yes [id number] TAKE 1 [facility] nivers 800 mg 3-07 TABLET BY ity of tablet 00:00: MOUTH [place] 00 EVERY 6 Medical HOURS WITH Branch FOOD NEEDED FOR PAIN *DO NOT TAKE ASPIRIN* IBUPROFEN 2022-0 Yes [id number] TAKE 1 [facility] nivers 800 mg 3-07 TABLET BY ity of tablet 00:00: MOUTH [place] 00 EVERY 6 Medical HOURS WITH Branch FOOD NEEDED FOR PAIN *DO NOT TAKE ASPIRIN* IBUPROFEN 2022-0 2022- No [id number] TAKE 1 [facility] 800 mg 3-07 03-23 TABLET BY ity of tablet 00:00: 00:00 MOUTH [place] 00 :00 EVERY 6 Medical HOURS WITH Branch FOOD NEEDED FOR PAIN *DO NOT TAKE ASPIRIN* IBUPROFEN 2022-0 202- No [id number] TAKE 1 [facility] 800 mg 3-07 03-23 TABLET BY ity of tablet 00:00: 00:00 MOUTH [place] 00 :00 EVERY 6 Medical HOURS WITH Branch FOOD NEEDED FOR PAIN *DO NOT TAKE ASPIRIN* METHOCARBAM 2022-0 Yes [id number] TAKE 1 [facility] 500 mg 3-01 TABLET BY ity o f tablet 00:00: MOUTH [place] 00 EVERY 6 Medical (SIX) Branch HOURS NEEDED FOR PAIN (SCALE 4-6). *MAY IMPAIR ALERTNESS* * METHOCARBAM 2022-0 Yes [id number] TAKE 1 [facility] OL 500 mg 3-01 TABLET BY ity o f tablet 00:00: MOUTH [place] 00 EVERY 6 Medical (SIX) Branch HOURS NEEDED FOR PAIN (SCALE 4-6). *MAY IMPAIR ALERTNESS* * METHOCARBAM 2022-0 Yes [id number] TAKE 1 [facility] OL 500 mg 3-01 TABLET BY ity o f tablet 00:00: MOUTH [place] 00 EVERY 6 Medical (SIX) Branch HOURS NEEDED FOR PAIN (SCALE 4-6). *MAY IMPAIR ALERTNESS* * METHOCARBAM 2022-0 Yes [id number] TAKE 1 [facility] OL 500 mg 3-01 TABLET BY ity o f tablet 00:00: MOUTH [place] 00 EVERY 6 Medical (SIX) Branch HOURS NEEDED FOR PAIN (SCALE 4-6). *MAY IMPAIR ALERTNESS* * METHOCARBAM 2022-0 Yes [id number] TAKE 1 [facility] OL 500 mg 3-01 TABLET BY ity o f tablet 00:00: MOUTH [place] 00 EVERY 6 Medical (SIX) Branch HOURS NEEDED FOR PAIN (SCALE 4-6). *MAY IMPAIR ALERTNESS* * METHOCARBAM 2022-0 Yes [id number] TAKE 1 [facility] OL 500 mg 3-01 TABLET BY ity o f tablet 00:00: MOUTH [place] 00 EVERY 6 Medical (SIX) Branch HOURS NEEDED FOR PAIN (SCALE 4-6). *MAY IMPAIR ALERTNESS* * METHOCARBAM 2022-0 Yes [id number] TAKE 1 [facility] OL 500 mg 3-01 TABLET BY ity o f tablet 00:00: MOUTH [place] 00 EVERY 6 Medical (SIX) Branch HOURS NEEDED FOR PAIN (SCALE 4-6). *MAY IMPAIR ALERTNESS* * METHOCARBAM 2022-0 Yes [id number] TAKE 1 [facility] 500 mg 3-01 TABLET BY ity o f tablet 00:00: MOUTH [place] 00 EVERY 6 Medical (SIX) Branch HOURS NEEDED FOR PAIN (SCALE 4-6). *MAY IMPAIR ALERTNESS* * METHOCARBAM 3-0 Yes [id number] TAKE 1 [facility] 500 mg 3-01 TABLET BY ity o f tablet 00:00: MOUTH [place] 00 EVERY 6 Medical (SIX) Branch HOURS NEEDED FOR PAIN (SCALE 4-6). *MAY IMPAIR ALERTNESS* * METHOCARBAM 3-0 Yes [id number] TAKE 1 [facility] 500 mg 3-01 TABLET BY ity o f tablet 00:00: MOUTH [place] 00 EVERY 6 Medical (SIX) Branch HOURS NEEDED FOR PAIN (SCALE 4-6). *MAY IMPAIR ALERTNESS* * METHOCARBAM 2023-0 Yes [id number] TAKE 1 [facility] OL 500 mg 3-01 TABLET BY ity o f tablet 00:00: MOUTH [place] 00 EVERY 6 Medical (SIX) Branch HOURS NEEDED FOR PAIN (SCALE 4-6). *MAY IMPAIR ALERTNESS* * METHOCARBAM 2023-0 Yes [id number] TAKE 1 [facility] OL 500 mg 3-01 TABLET BY ity o f tablet 00:00: MOUTH [place] 00 EVERY 6 Medical (SIX) Branch HOURS NEEDED FOR PAIN (SCALE 4-6). *MAY IMPAIR ALERTNESS* * METHOCARBAM 2023-0 Yes [id number] TAKE 1 [facility] OL 500 mg 3-01 TABLET BY ity o f tablet 00:00: MOUTH [place] 00 EVERY 6 Medical (SIX) Branch HOURS NEEDED FOR PAIN (SCALE 4-6). *MAY IMPAIR ALERTNESS* * METHOCARBAM 3-0 Yes [id number] TAKE 1 [facility] OL 500 mg 3-01 TABLET BY ity o f tablet 00:00: MOUTH [place] 00 EVERY 6 Medical (SIX) Branch HOURS NEEDED FOR PAIN (SCALE 4-6). *MAY IMPAIR ALERTNESS* * METHOCARBAM 3-0 Yes [id number] TAKE 1 [facility] 500 mg 3-01 TABLET BY ity o f tablet 00:00: MOUTH [place] 00 EVERY 6 Medical (SIX) Branch HOURS NEEDED FOR PAIN (SCALE 4-6). *MAY IMPAIR ALERTNESS* * METHOCARBAM 2023-0 Yes [id number] TAKE 1 [facility] 500 mg 3-01 TABLET BY ity o f tablet 00:00: MOUTH [place] 00 EVERY 6 Medical (SIX) Branch HOURS NEEDED FOR PAIN (SCALE 4-6). *MAY IMPAIR ALERTNESS* * METHOCARBAM 2023-0 Yes [id number] TAKE 1 [facility] 500 mg 3-01 TABLET BY ity o f tablet 00:00: MOUTH [place] 00 EVERY 6 Medical (SIX) Branch HOURS NEEDED FOR PAIN (SCALE 4-6). *MAY IMPAIR ALERTNESS* * METHOCARBAM 2023-0 Yes [id number] TAKE 1 [facility] 500 mg 3-01 TABLET BY ity o f tablet 00:00: MOUTH [place] 00 EVERY 6 Medical (SIX) Branch HOURS NEEDED FOR PAIN (SCALE 4-6). *MAY IMPAIR ALERTNESS* * METHOCARBAM 2023-0 Yes [id number] TAKE 1 [facility] 500 mg 3-01 TABLET BY ity o f tablet 00:00: MOUTH [place] 00 EVERY 6 Medical (SIX) Branch HOURS NEEDED FOR PAIN (SCALE 4-6). *MAY IMPAIR ALERTNESS* * METHOCARBAM 2023-0 Yes [id number] TAKE 1 [facility] 500 mg 3-01 TABLET BY ity o f tablet 00:00: MOUTH [place] 00 EVERY 6 Medical (SIX) Branch HOURS NEEDED FOR PAIN (SCALE 4-6). *MAY IMPAIR ALERTNESS* * METHOCARBAM 2023-0 Yes [id number] TAKE 1 [facility] 500 mg 3-01 TABLET BY ity o f tablet 00:00: MOUTH [place] 00 EVERY 6 Medical (SIX) Branch HOURS NEEDED FOR PAIN (SCALE 4-6). *MAY IMPAIR ALERTNESS* * METHOCARBAM 2023-0 Yes [id number] TAKE 1 [facility] 500 mg 3-01 TABLET BY ity o f tablet 00:00: MOUTH [place] 00 EVERY 6 Medical (SIX) Branch HOURS NEEDED FOR PAIN (SCALE 4-6). *MAY IMPAIR ALERTNESS* * METHOCARBAM 2023-0 Yes [id number] TAKE 1 [facility] 500 mg 3-01 TABLET BY ity o f tablet 00:00: MOUTH [place] 00 EVERY 6 Medical (SIX) Branch HOURS NEEDED FOR PAIN (SCALE 4-6). *MAY IMPAIR ALERTNESS* * METHOCARBAM 2023-0 Yes [id number] TAKE 1 [facility] 500 mg 3-01 TABLET BY ity o f tablet 00:00: MOUTH [place] 00 EVERY 6 Medical (SIX) Branch HOURS NEEDED FOR PAIN (SCALE 4-6). *MAY IMPAIR ALERTNESS* * METHOCARBAM 2023-0 Yes [id number] TAKE 1 [facility] 500 mg 3-01 TABLET BY ity o f tablet 00:00: MOUTH [place] 00 EVERY 6 Medical (SIX) Branch HOURS NEEDED FOR PAIN (SCALE 4-6). *MAY IMPAIR ALERTNESS* * METHOCARBAM 2023-0 Yes [id number] TAKE 1 [facility] 500 mg 3-01 TABLET BY ity o f tablet 00:00: MOUTH [place] 00 EVERY 6 Medical (SIX) Branch HOURS NEEDED FOR PAIN (SCALE 4-6). *MAY IMPAIR ALERTNESS* * METHOCARBAM 2023-0 Yes [id number] TAKE 1 [facility] 500 mg 3-01 TABLET BY ity o f tablet 00:00: MOUTH [place] 00 EVERY 6 Medical (SIX) Branch HOURS NEEDED FOR PAIN (SCALE 4-6). *MAY IMPAIR ALERTNESS* * METHOCARBAM 3-0 Yes [id number] TAKE 1 [facility] OL 500 mg 3-01 TABLET BY ity o f tablet 00:00: MOUTH [place] 00 EVERY 6 Medical (SIX) Branch HOURS NEEDED FOR PAIN (SCALE 4-6). *MAY IMPAIR ALERTNESS* * METHOCARBAM 2023-0 Yes [id number] TAKE 1 [facility] 500 mg 3-01 TABLET BY ity o f tablet 00:00: MOUTH [place] 00 EVERY 6 Medical (SIX) Branch HOURS NEEDED FOR PAIN (SCALE 4-6). *MAY IMPAIR ALERTNESS* * METHOCARBAM 3-0 Yes [id number] TAKE 1 [facility] OL 500 mg 3-01 TABLET BY ity o f tablet 00:00: MOUTH [place] 00 EVERY 6 Medical (SIX) Branch HOURS NEEDED FOR PAIN (SCALE 4-6). *MAY IMPAIR ALERTNESS* * METHOCARBAM 3-0 Yes [id number] TAKE 1 [facility] 500 mg 3-01 TABLET BY ity o f tablet 00:00: MOUTH [place] 00 EVERY 6 Medical (SIX) Branch HOURS NEEDED FOR PAIN (SCALE 4-6). *MAY IMPAIR ALERTNESS* * METHOCARBAM 3-0 Yes [id number] TAKE 1 [facility] OL 500 mg 3-01 TABLET BY ity o f tablet 00:00: MOUTH [place] 00 EVERY 6 Medical (SIX) Branch HOURS NEEDED FOR PAIN (SCALE 4-6). *MAY IMPAIR ALERTNESS* * METHOCARBAM 2023-0 Yes [id number] TAKE 1 [facility] 500 mg 3-01 TABLET BY ity o f tablet 00:00: MOUTH [place] 00 EVERY 6 Medical (SIX) Branch HOURS NEEDED FOR PAIN (SCALE 4-6). *MAY IMPAIR ALERTNESS* * METHOCARBAM 2023-0 Yes [id number] TAKE 1 [facility] 500 mg 3-01 TABLET BY ity o f tablet 00:00: MOUTH [place] 00 EVERY 6 Medical (SIX) Branch HOURS NEEDED FOR PAIN (SCALE 4-6). *MAY IMPAIR ALERTNESS* * METHOCARBAM 2023-0 Yes [id number] TAKE 1 [facility] 500 mg 3-01 TABLET BY ity o f tablet 00:00: MOUTH [place] 00 EVERY 6 Medical (SIX) Branch HOURS NEEDED FOR PAIN (SCALE 4-6). *MAY IMPAIR ALERTNESS* * METHOCARBAM 0 Yes [id number] TAKE 1 [facility] OL 500 mg 3-01 TABLET BY ity o f tablet 00:00: MOUTH [place] 00 EVERY 6 Medical (SIX) Branch HOURS NEEDED FOR PAIN (SCALE 4-6). *MAY IMPAIR ALERTNESS* * METHOCARBAM 2022- No [id number] TAKE 1 [facility] OL 500 mg 3- 05-03 TABLET BY ity of tablet 00:00: 00:00 MOUTH [place] 00 :00 EVERY 6 Medical (SIX) Branch HOURS NEEDED FOR PAIN (SCALE 4-6). *MAY IMPAIR ALERTNESS* * BACLOFEN Yes [id number] TAKE 1 [facility] mg tablet 2-20 TABLET BY ity o f 00:00: MOUTH 3 [place] 00 TIMES Medical DAILY *MAY Branch IMPAIR ALERTNESS* * BACLOFEN Yes [id number] TAKE 1 [facility] mg tablet 2-20 TABLET BY ity o f 00:00: MOUTH 3 [place] 00 TIMES Medical DAILY *MAY Branch IMPAIR ALERTNESS* * BACLOFEN Yes [id number] TAKE 1 [facility] mg tablet 2-20 TABLET BY ity o f 00:00: MOUTH 3 [place] 00 TIMES Medical DAILY *MAY Branch IMPAIR ALERTNESS* * BACLOFEN Yes [id number] TAKE 1 [facility] mg tablet 2-20 TABLET BY ity o f 00:00: MOUTH 3 [place] 00 TIMES Medical DAILY *MAY Branch IMPAIR ALERTNESS* * BACLOFEN Yes [id number] TAKE 1 [facility] mg tablet 2-20 TABLET BY ity o f 00:00: MOUTH 3 [place] 00 TIMES Medical DAILY *MAY Branch IMPAIR ALERTNESS* * BACLOFEN Yes [id number] TAKE 1 [facility] mg tablet 2-20 TABLET BY ity o f 00:00: MOUTH 3 [place] 00 TIMES Medical DAILY *MAY Branch IMPAIR ALERTNESS* * BACLOFEN Yes [id number] TAKE 1 [facility] mg tablet 2-20 TABLET BY ity o f 00:00: MOUTH 3 [place] 00 TIMES Medical DAILY *MAY Branch IMPAIR ALERTNESS* * BACLOFEN Yes [id number] TAKE 1 [facility] mg tablet 2-20 TABLET BY ity o f 00:00: MOUTH 3 [place] 00 TIMES Medical DAILY *MAY Branch IMPAIR ALERTNESS* * BACLOFEN Yes [id number] TAKE 1 [facility] mg tablet 2-20 TABLET BY ity o f 00:00: MOUTH 3 [place] 00 TIMES Medical DAILY *MAY Branch IMPAIR ALERTNESS* * BACLOFEN Yes [id number] TAKE 1 [facility] mg tablet 2-20 TABLET BY ity o f 00:00: MOUTH 3 [place] 00 TIMES Medical DAILY *MAY Branch IMPAIR ALERTNESS* * BACLOFEN Yes [id number] TAKE 1 [facility] mg tablet 2-20 TABLET BY ity o f 00:00: MOUTH 3 [place] 00 TIMES Medical DAILY *MAY Branch IMPAIR ALERTNESS* * BACLOFEN Yes [id number] TAKE 1 [facility] mg tablet 2-20 TABLET BY ity o f 00:00: MOUTH 3 [place] 00 TIMES Medical DAILY *MAY Branch IMPAIR ALERTNESS* * BACLOFEN Yes [id number] TAKE 1 [facility] mg tablet 2-20 TABLET BY ity o f 00:00: MOUTH 3 [place] 00 TIMES Medical DAILY *MAY Branch IMPAIR ALERTNESS* * BACLOFEN Yes [id number] TAKE 1 [facility] mg tablet 2-20 TABLET BY ity o f 00:00: MOUTH 3 [place] 00 TIMES Medical DAILY *MAY Branch IMPAIR ALERTNESS* * BACLOFEN Yes [id number] TAKE 1 [facility] mg tablet 2-20 TABLET BY ity o f 00:00: MOUTH 3 [place] 00 TIMES Medical DAILY *MAY Branch IMPAIR ALERTNESS* * BACLOFEN Yes [id number] TAKE 1 [facility] mg tablet 2-20 TABLET BY ity o f 00:00: MOUTH 3 [place] 00 TIMES Medical DAILY *MAY Branch IMPAIR ALERTNESS* * BACLOFEN Yes [id number] TAKE 1 [facility] mg tablet 2-20 TABLET BY ity o f 00:00: MOUTH 3 [place] 00 TIMES Medical DAILY *MAY Branch IMPAIR ALERTNESS* * BACLOFEN Yes [id number] TAKE 1 [facility] mg tablet 2-20 TABLET BY ity o f 00:00: MOUTH 3 [place] 00 TIMES Medical DAILY *MAY Branch IMPAIR ALERTNESS* * BACLOFEN Yes [id number] TAKE 1 [facility] mg tablet 2-20 TABLET BY ity o f 00:00: MOUTH 3 [place] 00 TIMES Medical DAILY *MAY Branch IMPAIR ALERTNESS* * BACLOFEN Yes [id number] TAKE 1 [facility] mg tablet 2-20 TABLET BY ity o f 00:00: MOUTH 3 [place] 00 TIMES Medical DAILY *MAY Branch IMPAIR ALERTNESS* * BACLOFEN Yes [id number] TAKE 1 [facility] mg tablet 2-20 TABLET BY ity o f 00:00: MOUTH 3 [place] 00 TIMES Medical DAILY *MAY Branch IMPAIR ALERTNESS* * BACLOFEN Yes [id number] TAKE 1 [facility] mg tablet 2-20 TABLET BY ity o f 00:00: MOUTH 3 [place] 00 TIMES Medical DAILY *MAY Branch IMPAIR ALERTNESS* * BACLOFEN Yes [id number] TAKE 1 [facility] mg tablet 2-20 TABLET BY ity o f 00:00: MOUTH 3 [place] 00 TIMES Medical DAILY *MAY Branch IMPAIR ALERTNESS* * BACLOFEN 2022- No [id number] TAKE 1 [facility] mg tablet 2-20 03-30 TABLET BY ity of 00:00: 00:00 MOUTH 3 [place] 00 :00 TIMES Medical DAILY *MAY Branch IMPAIR ALERTNESS* * BACLOFEN 2022- No [id number] TAKE 1 [facility] mg tablet 2-20 03-30 TABLET BY ity of 00:00: 00:00 MOUTH 3 [place] 00 :00 TIMES Medical DAILY *MAY Branch IMPAIR ALERTNESS* * HYDROcodone Yes [id number] TAKE 1 [facility] ers -acetaminop 2-16 TABLET BY ity of hen 10-325 00:00: MOUTH [place] mg tablet 00 EVERY 4 Medical HOURS Branch NEEDED FOR PAIN (SCALE 4-6) *MAY MAKE DROWSY* Indication s: chronic pain HYDROcodone Yes 2745 TAKE 1 [facility] ers -acetaminop 2-16 TABLET BY ity of hen 10-325 00:00: MOUTH [place] mg tablet 00 EVERY 4 Medical HOURS Branch NEEDED FOR PAIN (SCALE 4-6) *MAY MAKE DROWSY* Indication s: chronic pain HYDROcodone Yes 2745 TAKE 1 [facility] ers -acetaminop 2-16 TABLET BY ity of hen 10-325 00:00: MOUTH [place] mg tablet 00 EVERY 4 Medical HOURS Branch NEEDED FOR PAIN (SCALE 4-6) *MAY MAKE DROWSY* Indication s: chronic pain HYDROcodone Yes 2745 TAKE 1 [facility] ers -acetaminop 2-16 TABLET BY ity of hen 10-325 00:00: MOUTH [place] mg tablet 00 EVERY 4 Medical HOURS Branch NEEDED FOR PAIN (SCALE 4-6) *MAY MAKE DROWSY* Indication s: chronic pain HYDROcodone Yes 2745 TAKE 1 [facility] ers -acetaminop 2-16 TABLET BY ity of hen 10-325 00:00: MOUTH [place] mg tablet 00 EVERY 4 Medical HOURS Branch NEEDED FOR PAIN (SCALE 4-6) *MAY MAKE DROWSY* Indication s: chronic pain HYDROcodone Yes 2745 TAKE 1 [facility] ers -acetaminop 2-16 TABLET BY ity of hen 10-325 00:00: MOUTH [place] mg tablet 00 EVERY 4 Medical HOURS Branch NEEDED FOR PAIN (SCALE 4-6) *MAY MAKE DROWSY* Indication s: chronic pain HYDROcodone Yes 2745 TAKE 1 [facility] ers -acetaminop 2-16 TABLET BY ity of hen 10-325 00:00: MOUTH [place] mg tablet 00 EVERY 4 Medical HOURS Branch NEEDED FOR PAIN (SCALE 4-6) *MAY MAKE DROWSY* Indication s: chronic pain HYDROcodone Yes 2745 TAKE 1 [facility] ers -acetaminop 2-16 TABLET BY ity of hen 10-325 00:00: MOUTH [place] mg tablet 00 EVERY 4 Medical HOURS Branch NEEDED FOR PAIN (SCALE 4-6) *MAY MAKE DROWSY* Indication s: chronic pain HYDROcodone Yes 2745 TAKE 1 [facility] ers -acetaminop 2-16 TABLET BY ity of hen 10-325 00:00: MOUTH [place] mg tablet 00 EVERY 4 Medical HOURS Branch NEEDED FOR PAIN (SCALE 4-6) *MAY MAKE DROWSY* Indication s: chronic pain HYDROcodone Yes 2745 TAKE 1 [facility] ers -acetaminop 2-16 TABLET BY ity of hen 10-325 00:00: MOUTH [place] mg tablet 00 EVERY 4 Medical HOURS Branch NEEDED FOR PAIN (SCALE 4-6) *MAY MAKE DROWSY* Indication s: chronic pain HYDROcodone Yes 2745 TAKE 1 [facility] ers -acetaminop 2-16 TABLET BY ity of hen 10-325 00:00: MOUTH [place] mg tablet 00 EVERY 4 Medical HOURS Branch NEEDED FOR PAIN (SCALE 4-6) *MAY MAKE DROWSY* Indication s: chronic pain HYDROcodone 2022- No 5 TAKE 1 [facility] vers -acetaminop 2-16 03-13 TABLET BY it y of hen 10-325 00:00: 00:00 MOUTH [place] mg tablet 00 :00 EVERY 4 Medical HOURS Branch NEEDED FOR PAIN (SCALE 4-6) *MAY MAKE DROWSY* Indication s: chronic pain HYDROcodone 2022- No 5 TAKE 1 [facility] vers -acetaminop 2-16 03-13 TABLET BY it y of hen 10-325 00:00: 00:00 MOUTH [place] mg tablet 00 :00 EVERY 4 Medical HOURS Branch NEEDED FOR PAIN (SCALE 4-6) *MAY MAKE DROWSY* Indication s: chronic pain HYDROcodone 2022- No 2744 TAKE 1 [facility] vers -acetaminop 2-16 03-13 TABLET BY it y of hen 10-325 00:00: 00:00 MOUTH [place] mg tablet 00 :00 EVERY 4 Medical HOURS Branch NEEDED FOR PAIN (SCALE 4-6) *MAY MAKE DROWSY* Indication s: chronic pain TOUJEO Yes [id number] INJECT 72 Un reinier SOLOSTAR 2-15 UNITS ity of U-300 00:00: UNDER THE [place] INSULIN 300 00 SKIN ONCE Med ical unit/mL DAILY IN Branch (1.5 mL) THE InPn EVENING (ADJUSTING DOSE BY 2 UNITS DAILY UNTIL FASTING BLOOD SUGAR LESS THAN 200) TOUJEO Yes [id number] INJECT 72 Un reinier SOLOSTAR 2-15 UNITS ity of U-300 00:00: UNDER THE [place] INSULIN 300 00 SKIN ONCE Med ical unit/mL DAILY IN Branch (1.5 mL) THE InPn EVENING (ADJUSTING DOSE BY 2 UNITS DAILY UNTIL FASTING BLOOD SUGAR LESS THAN 200) TOUJEO 0 Yes [id number] INJECT 72 Un reinier SOLOSTAR 2-15 UNITS ity of U-300 00:00: UNDER THE [place] INSULIN 300 00 SKIN ONCE Med ical unit/mL DAILY IN Branch (1.5 mL) THE InPn EVENING (ADJUSTING DOSE BY 2 UNITS DAILY UNTIL FASTING BLOOD SUGAR LESS THAN 200) TOUJEO Yes [id number] INJECT 72 Un reinier SOLOSTAR 2-15 UNITS ity of U-300 00:00: UNDER THE [place] INSULIN 300 00 SKIN ONCE Med ical unit/mL DAILY IN Branch (1.5 mL) THE InPn EVENING (ADJUSTING DOSE BY 2 UNITS DAILY UNTIL FASTING BLOOD SUGAR LESS THAN 200) TOUJEO 2022-0 Yes [id number] INJECT 72 Un reinier SOLOSTAR 2-15 UNITS ity of U-300 00:00: UNDER THE [place] INSULIN 300 00 SKIN ONCE Med ical unit/mL DAILY IN Branch (1.5 mL) THE InPn EVENING (ADJUSTING DOSE BY 2 UNITS DAILY UNTIL FASTING BLOOD SUGAR LESS THAN 200) TOUJEO 0 Yes [id number] INJECT 72 Un reinier SOLOSTAR 2-15 UNITS ity of U-300 00:00: UNDER THE [place] INSULIN 300 00 SKIN ONCE Med ical unit/mL DAILY IN Branch (1.5 mL) THE InPn EVENING (ADJUSTING DOSE BY 2 UNITS DAILY UNTIL FASTING BLOOD SUGAR LESS THAN 200) TOUMAGGIEO Yes [id number] INJECT 72 Un reinier SOLOSTAR 2-15 UNITS ity of U-300 00:00: UNDER THE [place] INSULIN 300 00 SKIN ONCE Med ical unit/mL DAILY IN Branch (1.5 mL) THE InPn EVENING (ADJUSTING DOSE BY 2 UNITS DAILY UNTIL FASTING BLOOD SUGAR LESS THAN 200) TOUMAGGIEO 2022- No [id number] INJECT 72 U nivers SOLOSTAR 2-15 03-09 UNITS ity of U-300 00:00: 00:00 UNDER THE [place] INSULIN 300 00 :00 SKIN ONCE Med ical unit/mL DAILY IN Branch (1.5 mL) THE InPn EVENING (ADJUSTING DOSE BY 2 UNITS DAILY UNTIL FASTING BLOOD SUGAR LESS THAN 200) POTASSIUM 2022-0 Yes [id number] TAKE 1 Un reinier CHLORIDE 10 2-10 TABLET BY ity of mEq CR 00:00: MOUTH [place] tablet 00 DAILY WITH Medical A GLASS OF Branch WATER IBUPROFEN 2022-0 Yes [id number] TAKE 1 U nivers 800 mg 2-10 TABLET BY ity of tablet 00:00: MOUTH [place] 00 EVERY 6 Medical HOURS WITH [place] FOOD NEEDED FOR PAIN *DO NOT TAKE ASPIRIN* POTASSIUM 2022-0 Yes [id number] TAKE 1 [facility] reinier CHLORIDE 10 2-10 TABLET BY ity of mEq CR 00:00: MOUTH [place] tablet 00 DAILY WITH Medical A GLASS OF Branch WATER IBUPROFEN 2022-0 Yes [id number] TAKE 1 U nivers 800 mg 2-10 TABLET BY ity of tablet 00:00: MOUTH [place] 00 EVERY 6 Medical HOURS WITH Branch FOOD NEEDED FOR PAIN *DO NOT TAKE ASPIRIN* POTASSIUM 2023-0 Yes [id number] TAKE 1 [facility] CHLORIDE 10 2-10 TABLET BY ity of mEq CR 00:00: MOUTH [place] tablet 00 DAILY WITH Medical A GLASS OF Branch WATER IBUPROFEN 2022-0 Yes [id number] TAKE 1 U nivers 800 mg 2-10 TABLET BY ity of tablet 00:00: MOUTH [place] 00 EVERY 6 Medical HOURS WITH Branch FOOD NEEDED FOR PAIN *DO NOT TAKE ASPIRIN* POTASSIUM 3-0 Yes [id number] TAKE 1 [facility] reinier CHLORIDE 10 2-10 TABLET BY ity of mEq CR 00:00: MOUTH [place] tablet 00 DAILY WITH Medical A GLASS OF Branch WATER IBUPROFEN 2022-0 Yes [id number] TAKE 1 U nivers 800 mg 2-10 TABLET BY ity of tablet 00:00: MOUTH [place] 00 EVERY 6 Medical HOURS WITH Branch FOOD NEEDED FOR PAIN *DO NOT TAKE ASPIRIN* POTASSIUM 3-0 Yes [id number] TAKE 1 [facility] reinier CHLORIDE 10 2-10 TABLET BY ity of mEq CR 00:00: MOUTH [place] tablet 00 DAILY WITH Medical A GLASS OF Branch WATER IBUPROFEN 2022-0 Yes [id number] TAKE 1 U nivers 800 mg 2-10 TABLET BY ity of tablet 00:00: MOUTH [place] 00 EVERY 6 Medical HOURS WITH Branch FOOD NEEDED FOR PAIN *DO NOT TAKE ASPIRIN* POTASSIUM 3-0 Yes [id number] TAKE 1 [facility] CHLORIDE 10 2-10 TABLET BY ity of mEq CR 00:00: MOUTH [place] tablet 00 DAILY WITH Medical A GLASS OF Branch WATER IBUPROFEN 2022-0 Yes [id number] TAKE 1 U nivers 800 mg 2-10 TABLET BY ity of tablet 00:00: MOUTH [place] 00 EVERY 6 Medical HOURS WITH Branch FOOD NEEDED FOR PAIN *DO NOT TAKE ASPIRIN* POTASSIUM 2023-0 Yes [id number] TAKE 1 [facility] CHLORIDE 10 2-10 TABLET BY ity of mEq CR 00:00: MOUTH [place] tablet 00 DAILY WITH Medical A GLASS OF Branch WATER IBUPROFEN 2022-0 Yes [id number] TAKE 1 U nivers 800 mg 2-10 TABLET BY ity of tablet 00:00: MOUTH [place] 00 EVERY 6 Medical HOURS WITH Branch FOOD NEEDED FOR PAIN *DO NOT TAKE ASPIRIN* POTASSIUM 3-0 Yes [id number] TAKE 1 [facility]ier CHLORIDE 10 2-10 TABLET BY ity of mEq CR 00:00: MOUTH [place] tablet 00 DAILY WITH Medical A GLASS OF Branch WATER IBUPROFEN 2022-0 Yes [id number] TAKE 1 U nivers 800 mg 2-10 TABLET BY ity of tablet 00:00: MOUTH [place] 00 EVERY 6 Medical HOURS WITH Branch FOOD NEEDED FOR PAIN *DO NOT TAKE ASPIRIN* POTASSIUM 3-0 Yes [id number] TAKE 1 [facility] CHLORIDE 10 2-10 TABLET BY ity of mEq CR 00:00: MOUTH [place] tablet 00 DAILY WITH Medical A GLASS OF Branch WATER POTASSIUM 2022-0 Yes [id number] TAKE 1 [facility] CHLORIDE 10 2-10 TABLET BY ity of mEq CR 00:00: MOUTH [place] tablet 00 DAILY WITH Medical A GLASS OF Branch WATER POTASSIUM 2022-0 Yes [id number] TAKE 1 [facility] CHLORIDE 10 2-10 TABLET BY ity of mEq CR 00:00: MOUTH [place] tablet 00 DAILY WITH Medical A GLASS OF Branch WATER POTASSIUM 2022-0 2023- No [id number] TAKE 1 U nivers CHLORIDE 10 2-10 03-09 TABLET BY it y of mEq CR 00:00: 00:00 MOUTH [place] tablet 00 :00 DAILY WITH Medical A GLASS OF Branch WATER IBUPROFEN 3-0 2023- No [id number] TAKE 1 [facility] 800 mg 2-10 03-07 TABLET BY ity of tablet 00:00: 00:00 MOUTH [place] 00 :00 EVERY 6 Medical HOURS WITH Branch FOOD NEEDED FOR PAIN *DO NOT TAKE ASPIRIN* LEVETIRACET 2022-0 Yes [id number] TAKE 1 [facility] AM 1,000 mg 2-02 TABLET BY ity of tablet 00:00: MOUTH 2 [place] 00 TIMES Medical DAILY Branch SULFAMETHOX 2022-0 Yes [id number] TAKE 1 [facility] AZOLE-TRIME 2-02 TABLET BY ity of THOPRIM 00:00: MOUTH 2 [place] 800-160 mg 00 TIMES Medical per tablet DAILY WITH Bra nch A GLASS OF WATER LEVETIRACET 2022-0 Yes [id number] TAKE 1 [facility] AM 1,000 mg 2-02 TABLET BY ity of tablet 00:00: MOUTH 2 [place] 00 TIMES Medical DAILY Branch SULFAMETHOX 2022-0 Yes [id number] TAKE 1 [facility] AZOLE-TRIME 2-02 TABLET BY ity of THOPRIM 00:00: MOUTH 2 [place] 800-160 mg 00 TIMES Medical per tablet DAILY WITH Bra nch A GLASS OF WATER LEVETIRACET 2022-0 Yes [id number] TAKE 1 [facility] AM 1,000 mg 2-02 TABLET BY ity of tablet 00:00: MOUTH 2 [place] 00 TIMES Medical DAILY Branch SULFAMETHOX 2022-0 Yes [id number] TAKE 1 [facility] AZOLE-TRIME 2-02 TABLET BY ity of THOPRIM 00:00: MOUTH 2 [place] 800-160 mg 00 TIMES Medical per tablet DAILY WITH Bra nch A GLASS OF WATER LEVETIRACET 2022-0 Yes [id number] TAKE 1 [facility] AM 1,000 mg 2-02 TABLET BY ity of tablet 00:00: MOUTH 2 00 TIMES Medical DAILY Branch SULFAMETHOX 2022-0 Yes [id number] TAKE 1 [facility] AZOLE-TRIME 2-02 TABLET BY ity of THOPRIM 00:00: MOUTH 2 [place] 800-160 mg 00 TIMES Medical per tablet DAILY WITH Bra nch A GLASS OF WATER LEVETIRACET 2022-0 Yes [id number] TAKE 1 [facility] AM 1,000 mg 2-02 TABLET BY ity of tablet 00:00: MOUTH 2 00 TIMES Medical DAILY Branch SULFAMETHOX 2022-0 Yes [id number] TAKE 1 [facility] AZOLE-TRIME 2-02 TABLET BY ity of THOPRIM 00:00: MOUTH 2 [place] 800-160 mg 00 TIMES Medical per tablet DAILY WITH Bra nch A GLASS OF WATER LEVETIRACET 2022-0 Yes [id number] TAKE 1 [facility] AM 1,000 mg 2-02 TABLET BY ity of tablet 00:00: MOUTH 2 [place] 00 TIMES Medical DAILY Branch SULFAMETHOX 2022-0 Yes [id number] TAKE 1 [facility] AZOLE-TRIME 2-02 TABLET BY ity of THOPRIM 00:00: MOUTH 2 [place] 800-160 mg 00 TIMES Medical per tablet DAILY WITH Bra nch A GLASS OF WATER LEVETIRACET 2022-0 Yes [id number] TAKE 1 [facility] AM 1,000 mg 2-02 TABLET BY ity of tablet 00:00: MOUTH 2 [place] 00 TIMES Medical DAILY Branch SULFAMETHOX 2022-0 Yes [id number] TAKE 1 [facility] AZOLE-TRIME 2-02 TABLET BY ity of THOPRIM 00:00: MOUTH 2 [place] 800-160 mg 00 TIMES Medical per tablet DAILY WITH Bra nch A GLASS OF WATER LEVETIRACET 2022-0 Yes [id number] TAKE 1 [facility] AM 1,000 mg 2-02 TABLET BY ity of tablet 00:00: MOUTH 2 [place] 00 TIMES Medical DAILY Branch SULFAMETHOX 3-0 Yes [id number] TAKE 1 [facility] AZOLE-TRIME 2-02 TABLET BY ity of THOPRIM 00:00: MOUTH 2 [place] 800-160 mg 00 TIMES Medical per tablet DAILY WITH Bra nch A GLASS OF WATER LEVETIRACET 2022-0 Yes [id number] TAKE 1 [facility] AM 1,000 mg 2-02 TABLET BY ity of tablet 00:00: MOUTH 2 [place] 00 TIMES Medical DAILY Branch SULFAMETHOX 2022-0 Yes [id number] TAKE 1 [facility] AZOLE-TRIME 2-02 TABLET BY ity of THOPRIM 00:00: MOUTH 2 [place] 800-160 mg 00 TIMES Medical per tablet DAILY WITH Bra nch A GLASS OF WATER LEVETIRACET 2022-0 Yes [id number] TAKE 1 [facility] AM 1,000 mg 2-02 TABLET BY ity of tablet 00:00: MOUTH 2 [place] 00 TIMES Medical DAILY Branch SULFAMETHOX 2022-0 Yes [id number] TAKE 1 [facility] AZOLE-TRIME 2-02 TABLET BY ity of THOPRIM 00:00: MOUTH 2 [place] 800-160 mg 00 TIMES Medical per tablet DAILY WITH Bra nch A GLASS OF WATER LEVETIRACET 2022-0 2023- No [id number] TAKE 1 [facility] AM 1,000 mg 2-02 03-08 TABLET BY it y of tablet 00:00: 00:00 MOUTH 2 [place] 00 :00 TIMES Medical DAILY Branch SULFAMETHOX 2023-0 2023- No [id number] TAKE 1 [facility] AZOLE-TRIME 2-02 03-08 TABLET BY it y of THOPRIM 00:00: 00:00 MOUTH 2 [place] 800-160 mg 00 :00 TIMES Medical per tablet DAILY WITH Bra nch A GLASS OF WATER HYDROXYZINE 3-0 Yes [id number] TAKE 1 [facility] 50 mg 2-01 TABLET BY ity of tablet 00:00: MOUTH 3 [place] 00 TIMES Medical DAILY Branch NEEDED FOR ITCHING OR ANXIETY. *MAY IMPAIR ALERTNESS* * HYDROXYZINE 2023-0 Yes [id number] TAKE 1 [facility] 50 mg 2-01 TABLET BY ity of tablet 00:00: MOUTH 3 [place] 00 TIMES Medical DAILY Branch NEEDED FOR ITCHING OR ANXIETY. *MAY IMPAIR ALERTNESS* * HYDROXYZINE 2023-0 Yes [id number] TAKE 1 [facility] 50 mg 2-01 TABLET BY ity of tablet 00:00: MOUTH 3 [place] 00 TIMES Medical DAILY Branch NEEDED FOR ITCHING OR ANXIETY. *MAY IMPAIR ALERTNESS* * HYDROXYZINE 2023-0 Yes [id number] TAKE 1 [facility] 50 mg 2-01 TABLET BY ity of tablet 00:00: MOUTH 3 [place] 00 TIMES Medical DAILY Branch NEEDED FOR ITCHING OR ANXIETY. *MAY IMPAIR ALERTNESS* * HYDROXYZINE 2023-0 Yes [id number] TAKE 1 [facility] 50 mg 2-01 TABLET BY ity of tablet 00:00: MOUTH 3 [place] 00 TIMES Medical DAILY Branch NEEDED FOR ITCHING OR ANXIETY. *MAY IMPAIR ALERTNESS* * HYDROXYZINE 2023-0 Yes [id number] TAKE 1 [facility] 50 mg 2-01 TABLET BY ity of tablet 00:00: MOUTH 3 [place] 00 TIMES Medical DAILY Branch NEEDED FOR ITCHING OR ANXIETY. *MAY IMPAIR ALERTNESS* * HYDROXYZINE 2023-0 Yes [id number] TAKE 1 [facility] 50 mg 2-01 TABLET BY ity of tablet 00:00: MOUTH 3 [place] 00 TIMES Medical DAILY Branch NEEDED FOR ITCHING OR ANXIETY. *MAY IMPAIR ALERTNESS* * HYDROXYZINE 2023-0 Yes [id number] TAKE 1 [facility] 50 mg 2-01 TABLET BY ity of tablet 00:00: MOUTH 3 [place] 00 TIMES Medical DAILY Branch NEEDED FOR ITCHING OR ANXIETY. *MAY IMPAIR ALERTNESS* * HYDROXYZINE 2023-0 Yes [id number] TAKE 1 [facility] 50 mg 2-01 TABLET BY ity of tablet 00:00: MOUTH 3 [place] 00 TIMES Medical DAILY Branch NEEDED FOR ITCHING OR ANXIETY. *MAY IMPAIR ALERTNESS* * HYDROXYZINE 2023-0 Yes [id number] TAKE 1 [facility] 50 mg 2-01 TABLET BY ity of tablet 00:00: MOUTH 3 [place] 00 TIMES Medical DAILY Branch NEEDED FOR ITCHING OR ANXIETY. *MAY IMPAIR ALERTNESS* * HYDROXYZINE 2023-0 Yes [id number] TAKE 1 [facility] 50 mg 2-01 TABLET BY ity of tablet 00:00: MOUTH 3 [place] 00 TIMES Medical DAILY Branch NEEDED FOR ITCHING OR ANXIETY. *MAY IMPAIR ALERTNESS* * HYDROXYZINE 2022-0 2023- No [id number] TAKE 1 [facility] 50 mg 2-05-28 TABLET BY ity of tablet 00:00: 00:00 MOUTH 3 [place] 00 :00 TIMES Medical DAILY Branch NEEDED FOR ITCHING OR ANXIETY. *MAY IMPAIR ALERTNESS* * IBUPROFEN 2022-0 Yes [id number] TAKE 1 [facility] 800 mg 1-31 TABLET BY ity of tablet 00:00: MOUTH [place] 00 EVERY 6 Medical HOURS WITH Branch FOOD NEEDED FOR PAIN *DO NOT TAKE ASPIRIN* CLOPIDOGREL 2022-0 Yes [id number] TAKE 1 [facility] 75 mg 1-31 TABLET BY ity of tablet 00:00: MOUTH [place] 00 EVERY DAY Medical Branch METFORMIN 2022-0 Yes [id number] TAKE 2 Un reinier ER 500 mg 1-31 TABLETS BY ity of 24 hr 00:00: MOUTH 2 [place] tablet 00 TIMES Medical DAILY WITH Branch FOOD LATUDA 40 2022-0 Yes [id number] TAKE 1 U nivers mg tablet 1-31 TABLET BY ity o f 00:00: MOUTH AT [place] 00 BEDTIME Medical Branch IBUPROFEN 2022-0 Yes [id number] TAKE 1 U nivers 800 mg 1-31 TABLET BY ity of tablet 00:00: MOUTH [place] 00 EVERY 6 Medical HOURS WITH Branch FOOD NEEDED FOR PAIN *DO NOT TAKE ASPIRIN* CLOPIDOGREL 2022-0 Yes [id number] TAKE 1 [facility] 75 mg 1-31 TABLET BY ity of tablet 00:00: MOUTH [place] 00 EVERY DAY Medical Branch METFORMIN 2022-0 Yes [id number] TAKE 2 Un reinier ER 500 mg 1-31 TABLETS BY ity of 24 hr 00:00: MOUTH 2 [place] tablet 00 TIMES Medical DAILY WITH Branch FOOD LATUDA 40 2022-0 Yes [id number] TAKE 1 U nivers mg tablet 1-31 TABLET BY ity o f 00:00: MOUTH AT [place] 00 BEDTIME Medical Branch IBUPROFEN 2022-0 Yes [id number] TAKE 1 U nivers 800 mg 1-31 TABLET BY ity of tablet 00:00: MOUTH [place] 00 EVERY 6 Medical HOURS WITH Branch FOOD NEEDED FOR PAIN *DO NOT TAKE ASPIRIN* CLOPIDOGREL 2022-0 Yes [id number] TAKE 1 [facility] 75 mg 1-31 TABLET BY ity of tablet 00:00: MOUTH [place] 00 EVERY DAY Medical Branch METFORMIN 3-0 Yes [id number] TAKE 2 Un reinier ER 500 mg 1-31 TABLETS BY ity of 24 hr 00:00: MOUTH 2 [place] tablet 00 TIMES Medical DAILY WITH [place] FOOD LATUDA 40 2022-0 Yes [id number] TAKE 1 U nivers mg tablet 1-31 TABLET BY ity o f 00:00: MOUTH AT [place] BEDTIME Medical Branch CLOPIDOGREL 2023-0 Yes [id number] TAKE 1 [facility] 75 mg 1-31 TABLET BY ity of tablet 00:00: MOUTH [place] EVERY DAY Medical Branch METFORMIN 3-0 Yes [id number] TAKE 2 Un reinier ER 500 mg 1-31 TABLETS BY ity of 24 hr 00:00: MOUTH 2 [place] tablet 00 TIMES Medical DAILY WITH [place] [facility] Yes [id number] TAKE 1 U nivers mg tablet 1-31 TABLET BY ity o f 00:00: MOUTH AT [place] BEDTIME Medical Branch CLOPIDOGREL 2023-0 Yes [id number] TAKE 1 [facility] 75 mg 1-31 TABLET BY ity of tablet 00:00: MOUTH [place] EVERY DAY Medical Branch METFORMIN 3-0 Yes [id number] TAKE 2 Un reinier ER 500 mg 1-31 TABLETS BY ity of 24 hr 00:00: MOUTH 2 [place] tablet 00 TIMES Medical DAILY WITH [place] [facility]OD [facility] 20[facility]-0 Yes [id number] TAKE 1 U nivers mg tablet 1-31 TABLET BY ity o f 00:00: MOUTH AT [place] BEDTIME Medical Branch CLOPIDOGREL 3-0 Yes [id number] TAKE 1 [facility] 75 mg 1-31 TABLET BY ity of tablet 00:00: MOUTH [place] EVERY DAY Medical Branch METFORMIN 3-0 Yes [id number] TAKE 2 Un reinier ER 500 mg 1-31 TABLETS BY ity of 24 hr 00:00: MOUTH 2 [place] tablet 00 TIMES Medical DAILY WITH [place] [facility]OD [facility] 20[facility]-0 Yes [id number] TAKE 1 U nivers mg tablet 1-31 TABLET BY ity o f 00:00: MOUTH AT [place] BEDTIME Medical Branch CLOPIDOGREL 2023-0 Yes [id number] TAKE 1 [facility] 75 mg 1-31 TABLET BY ity of tablet 00:00: MOUTH [place] EVERY DAY Medical Branch METFORMIN 2023-0 Yes [id number] TAKE 2 Un reinier ER 500 mg 1-31 TABLETS BY ity of 24 hr 00:00: MOUTH 2 [place] tablet 00 TIMES Medical DAILY WITH [place] FOOD LATUDA 40 2022-0 Yes [id number] TAKE 1 U nivers mg tablet 1-31 TABLET BY ity o f 00:00: MOUTH AT [place] BEDTIME Medical Branch CLOPIDOGREL 3-0 Yes [id number] TAKE 1 [facility] 75 mg 1-31 TABLET BY ity of tablet 00:00: MOUTH [place] EVERY DAY Medical Branch METFORMIN 3-0 Yes [id number] TAKE 2 Un reinier ER 500 mg 1-31 TABLETS BY ity of 24 hr 00:00: MOUTH 2 [place] tablet 00 TIMES Medical DAILY WITH [place] FOOD [facility] 20[facility]-0 Yes [id number] TAKE 1 U nivers mg tablet 1-31 TABLET BY ity o f 00:00: MOUTH AT [place] BEDTIME Medical Branch CLOPIDOGREL 3-0 Yes [id number] TAKE 1 [facility] 75 mg 1-31 TABLET BY ity of tablet 00:00: MOUTH [place] EVERY DAY Medical Branch METFORMIN 3-0 Yes [id number] TAKE 2 Un rein[facility] ER 500 mg 1-31 TABLETS BY ity of 24 hr 00:00: MOUTH 2 [place] tablet 00 TIMES Medical DAILY WITH [place] FOOD [facility] 40 2022-0 Yes [id number] TAKE 1 U nivers mg tablet 1-31 TABLET BY ity o f 00:00: MOUTH AT [place] BEDTIME Medical Branch CLOPIDOGREL 3-0 Yes [id number] TAKE 1 [facility] 75 mg 1-31 TABLET BY ity of tablet 00:00: MOUTH [place] EVERY DAY Medical Branch METFORMIN 3-0 Yes [id number] TAKE 2 Un rein[facility] ER 500 mg 1-31 TABLETS BY ity of 24 hr 00:00: MOUTH 2 [place] tablet 00 TIMES Medical DAILY WITH [place] FOOD [facility] 20[facility]-0 Yes [id number] TAKE 1 U nivers mg tablet 1-31 TABLET BY ity o f 00:00: MOUTH AT [place] BEDTIME Medical Branch CLOPIDOGREL 3-0 Yes [id number] TAKE 1 [facility] 75 mg 1-31 TABLET BY ity of tablet 00:00: MOUTH [place] EVERY DAY Medical Branch METFORMIN 2023-0 Yes [id number] TAKE 2 Un rein[facility] ER 500 mg 1-31 TABLETS BY ity of 24 hr 00:00: MOUTH 2 [place] tablet 00 TIMES Medical DAILY WITH [place] FOOD [facility] 2022-0 Yes [id number] TAKE 1 U nivers mg tablet 1-31 TABLET BY ity o f 00:00: MOUTH AT [place] 00 BEDTIME Medical Branch CLOPIDOGREL 2022-0 Yes [id number] TAKE 1 [facility] 75 mg 1-31 TABLET BY ity of tablet 00:00: MOUTH [place] 00 EVERY DAY Medical Branch METFORMIN 2022-0 Yes [id number] TAKE 2 Un rein[facility] ER 500 mg 1-31 TABLETS BY ity of 24 hr 00:00: MOUTH 2 [place] tablet 00 TIMES Medical DAILY WITH Branch FOOD LATUDA 40 2022-0 Yes [id number] TAKE 1 U nivers mg tablet -31 TABLET BY ity o f 00:00: MOUTH AT [place] 00 BEDTIME Medical Branch CLOPIDOGREL 2022-0 2022- No [id number] TAKE 1 [facility] 75 mg -31 -08 TABLET BY ity of tablet 00:00: 00:00 MOUTH [place] 00 :00 EVERY DAY Medical Branch METFORMIN 2022-0 2022- No [id number] TAKE 2 U nivers ER 500 mg 1-31 -08 TABLETS BY ity of 24 hr 00:00: 00:00 MOUTH 2 [place] tablet 00 :00 TIMES Medical DAILY WITH Branch FOOD LATUDA 40 2022-0 3- No [id number] TAKE 1 [facility] mg tablet 04-22-08 TABLET BY ity of 00:00: 00:00 MOUTH AT [place] 00 :00 BEDTIME Medical Branch IBUPROFEN 2022-0 2022- No [id number] TAKE 1 [facility] 800 mg - 02-10 TABLET BY ity of tablet 00:00: 00:00 MOUTH [place] 00 :00 EVERY 6 Medical HOURS WITH Branch FOOD NEEDED FOR PAIN *DO NOT TAKE ASPIRIN* PROMETHAZIN Yes [id number] TAKE 1 [facility] E 25 mg 1-30 TABLET BY ity of tablet 00:00: MOUTH [place] 00 EVERY 6 Medical HOURS Branch NEEDED FOR NAUSEA AND VOMITING *MAY IMPAIR ALERTNESS* * PANTOPRAZOL Yes TAKE 1 Univ ers E 40 mg EC 1-30 TABLET BY ity of tablet 00:00: MOUTH ONCE [place] 00 DAILY Medical BEFORE A Branch MEAL. ONETOUCH Yes [id number] USE Un reinier VERIO TEST 1-30 DIRECTED ity o f STRIPS 00:00: FOR THREE [place] strip 00 TIMES A Medical DAY BLOOD Branch GLUCOSE MONITORING PROMETHAZIN Yes [id number] TAKE 1 [facility] E 25 mg 1-30 TABLET BY ity of tablet 00:00: MOUTH [place] 00 EVERY 6 Medical HOURS Branch NEEDED FOR NAUSEA AND VOMITING *MAY IMPAIR ALERTNESS* * PANTOPRAZOL Yes TAKE 1 Univ ers E 40 mg EC 1-30 TABLET BY ity of tablet 00:00: MOUTH ONCE [place] 00 DAILY Medical BEFORE A Branch MEAL. ONETOUCH Yes [id number] USE Un reinier VERIO TEST 1-30 DIRECTED ity o f STRIPS 00:00: FOR THREE [place] strip 00 TIMES A Medical DAY BLOOD Branch GLUCOSE MONITORING PROMETHAZIN 0 Yes [id number] TAKE 1 [facility] E 25 mg 1-30 TABLET BY ity of tablet 00:00: MOUTH [place] 00 EVERY 6 Medical HOURS Branch NEEDED FOR NAUSEA AND VOMITING *MAY IMPAIR ALERTNESS* * PANTOPRAZOL Yes TAKE 1 Univ ers E 40 mg EC 1-30 TABLET BY ity of tablet 00:00: MOUTH ONCE [place] 00 DAILY Medical BEFORE A Branch MEAL. ONETOUCH Yes [id number] USE Un reinier VERIO TEST 1-30 DIRECTED ity o f STRIPS 00:00: FOR THREE [place] strip 00 TIMES A Medical DAY BLOOD Branch GLUCOSE MONITORING PROMETHAZIN 2022-0 Yes [id number] TAKE 1 [facility] E 25 mg 1-30 TABLET BY ity of tablet 00:00: MOUTH [place] 00 EVERY 6 Medical HOURS Branch NEEDED FOR NAUSEA AND VOMITING *MAY IMPAIR ALERTNESS* * PANTOPRAZOL Yes TAKE 1 Univ ers E 40 mg EC 1-30 TABLET BY ity of tablet 00:00: MOUTH ONCE [place] 00 DAILY Medical BEFORE A Branch MEAL. ONETOUCH Yes [id number] USE Un reinier VERIO TEST 1-30 DIRECTED ity o f STRIPS 00:00: FOR THREE [place] strip 00 TIMES A Medical DAY BLOOD Branch GLUCOSE MONITORING PROMETHAZIN 0 Yes [id number] TAKE 1 [facility] E 25 mg 1-30 TABLET BY ity of tablet 00:00: MOUTH [place] 00 EVERY 6 Medical HOURS Branch NEEDED FOR NAUSEA AND VOMITING *MAY IMPAIR ALERTNESS* * PANTOPRAZOL Yes TAKE 1 [facility] ers E 40 mg EC 1-30 TABLET BY ity of tablet 00:00: MOUTH ONCE [place] 00 DAILY Medical BEFORE A Branch MEAL. ONETOUCH 2022-0 Yes [id number] USE Un reinier VERIO TEST 1-30 DIRECTED ity o f STRIPS 00:00: FOR THREE [place] strip 00 TIMES A Medical DAY BLOOD Branch GLUCOSE MONITORING PROMETHAZIN 0 Yes [id number] TAKE 1 [facility] E 25 mg 1-30 TABLET BY ity of tablet 00:00: MOUTH [place] 00 EVERY 6 Medical HOURS Branch NEEDED FOR NAUSEA AND VOMITING *MAY IMPAIR ALERTNESS* * PANTOPRAZOL Yes TAKE 1 [facility] ers E 40 mg EC 1-30 TABLET BY ity of tablet 00:00: MOUTH ONCE [place] 00 DAILY Medical BEFORE A Branch MEAL. ONETOUCH Yes [id number] USE Un reinier VERIO TEST 1-30 DIRECTED ity o f STRIPS 00:00: FOR THREE [place] strip 00 TIMES A Medical DAY BLOOD Branch GLUCOSE MONITORING PROMETHAZIN Yes [id number] TAKE 1 [facility] E 25 mg 1-30 TABLET BY ity of tablet 00:00: MOUTH [place] 00 EVERY 6 Medical HOURS Branch NEEDED FOR NAUSEA AND VOMITING *MAY IMPAIR ALERTNESS* * PANTOPRAZOL Yes TAKE 1 [facility] ers E 40 mg EC 1-30 TABLET BY ity of tablet 00:00: MOUTH ONCE 00 DAILY Medical BEFORE A Branch MEAL. ONETOUCH Yes [id number] USE Un reniier VERIO TEST 1-30 DIRECTED ity o f STRIPS 00:00: FOR THREE [place] strip 00 TIMES A Medical DAY BLOOD Branch GLUCOSE MONITORING PROMETHAZIN 0 Yes [id number] TAKE 1 [facility] E 25 mg 1-30 TABLET BY ity of tablet 00:00: MOUTH [place] 00 EVERY 6 Medical HOURS Branch NEEDED FOR NAUSEA AND VOMITING *MAY IMPAIR ALERTNESS* * PANTOPRAZOL Yes TAKE 1 [facility] ers E 40 mg EC 1-30 TABLET BY ity of tablet 00:00: MOUTH ONCE 00 DAILY Medical BEFORE A Branch MEAL. ONETOUCH Yes [id number] USE Un reinier VERIO TEST 1-30 DIRECTED ity o f STRIPS 00:00: FOR THREE [place] strip 00 TIMES A Medical DAY BLOOD Branch GLUCOSE MONITORING PROMETHAZIN 0 Yes [id number] TAKE 1 [facility] E 25 mg 1-30 TABLET BY ity of tablet 00:00: MOUTH [place] 00 EVERY 6 Medical HOURS Branch NEEDED FOR NAUSEA AND VOMITING *MAY IMPAIR ALERTNESS* * PANTOPRAZOL Yes TAKE 1 Univ ers E 40 mg EC 1-30 TABLET BY ity of tablet 00:00: MOUTH ONCE [place] 00 DAILY Medical BEFORE A Branch MEAL. ONETOUCH Yes [id number] USE Un reinier VERIO TEST 1-30 DIRECTED ity o f STRIPS 00:00: FOR THREE [place] strip 00 TIMES A Medical DAY BLOOD Branch GLUCOSE MONITORING PROMETHAZIN Yes [id number] TAKE 1 [facility] E 25 mg 1-30 TABLET BY ity of tablet 00:00: MOUTH [place] 00 EVERY 6 Medical HOURS Branch NEEDED FOR NAUSEA AND VOMITING *MAY IMPAIR ALERTNESS* * PANTOPRAZOL Yes TAKE 1 Univ ers E 40 mg EC 1-30 TABLET BY ity of tablet 00:00: MOUTH ONCE [place] 00 DAILY Medical BEFORE A Branch MEAL. ONETOUCH Yes [id number] USE Un reinier VERIO TEST 1-30 DIRECTED ity o f STRIPS 00:00: FOR THREE [place] strip 00 TIMES A Medical DAY BLOOD Branch GLUCOSE MONITORING PROMETHAZIN Yes [id number] TAKE 1 [facility] E 25 mg 1-30 TABLET BY ity of tablet 00:00: MOUTH [place] 00 EVERY 6 Medical HOURS Branch NEEDED FOR NAUSEA AND VOMITING *MAY IMPAIR ALERTNESS* * PANTOPRAZOL Yes TAKE 1 Univ ers E 40 mg EC 1-30 TABLET BY ity of tablet 00:00: MOUTH ONCE [place] 00 DAILY Medical BEFORE A Branch MEAL. ONETOUCH Yes [id number] USE Un reinier VERIO TEST 1-30 DIRECTED ity o f STRIPS 00:00: FOR THREE [place] strip 00 TIMES A Medical DAY BLOOD Branch GLUCOSE MONITORING PROMETHAZIN 0 Yes [id number] TAKE 1 [facility] E 25 mg 1-30 TABLET BY ity of tablet 00:00: MOUTH [place] 00 EVERY 6 Medical HOURS Branch NEEDED FOR NAUSEA AND VOMITING *MAY IMPAIR ALERTNESS* * PANTOPRAZOL Yes TAKE 1 [facility] ers E 40 mg EC 1-30 TABLET BY ity of tablet 00:00: MOUTH ONCE [place] 00 DAILY Medical BEFORE A Branch MEAL. ONETOUCH Yes [id number] USE Un reinier VERIO TEST 1-30 DIRECTED ity o f STRIPS 00:00: FOR THREE [place] strip 00 TIMES A Medical DAY BLOOD Branch GLUCOSE MONITORING PROMETHAZIN Yes [id number] TAKE 1 [facility] E 25 mg 1-30 TABLET BY ity of tablet 00:00: MOUTH [place] 00 EVERY 6 Medical HOURS Branch NEEDED FOR NAUSEA AND VOMITING *MAY IMPAIR ALERTNESS* * PANTOPRAZOL Yes TAKE 1 [facility] ers E 40 mg EC 1-30 TABLET BY ity of tablet 00:00: MOUTH ONCE [place] 00 DAILY Medical BEFORE A Branch MEAL. ONETOUCH Yes [id number] USE Un reinier VERIO TEST 30 DIRECTED ity o f STRIPS 00:00: FOR THREE [place] strip 00 TIMES A Medical DAY BLOOD Branch GLUCOSE MONITORING PROMETHAZIN Yes [id number] TAKE 1 [facility] E 25 mg 1-30 TABLET BY ity of tablet 00:00: MOUTH [place] 00 EVERY 6 Medical HOURS Branch NEEDED FOR NAUSEA AND VOMITING *MAY IMPAIR ALERTNESS* * PROMETHAZIN Yes [id number] TAKE 1 [facility] E 25 mg 1-30 TABLET BY ity of tablet 00:00: MOUTH [place] 00 EVERY 6 Medical HOURS Branch NEEDED FOR NAUSEA AND VOMITING *MAY IMPAIR ALERTNESS* * PROMETHAZIN 2022- No [id number] TAKE 1 [facility] E 25 mg 1-30 03-09 TABLET BY ity of tablet 00:00: 00:00 MOUTH [place] 00 :00 EVERY 6 Medical HOURS Branch NEEDED FOR NAUSEA AND VOMITING *MAY IMPAIR ALERTNESS* * PANTOPRAZOL 2022- No TAKE 1 Uni vers E 40 mg EC 1-30 08 TABLET BY ity of tablet 00:00: 00:00 MOUTH ONCE [place] 00 :00 DAILY Medical BEFORE A Branch MEAL. ONETOUCH 2022- No [id number] USE U nivers VERIO TEST 130 -08 DIRECTED ity of STRIPS 00:00: 00:00 FOR THREE [place] strip 00 :00 TIMES A Medical DAY BLOOD Branch GLUCOSE MONITORING TOUJEO Yes [id number] INJECT 72 Un reinier SOLOSTAR 1-26 UNITS ity of U-300 00:00: UNDER THE [place] INSULIN 300 00 SKIN ONCE Med ical unit/mL DAILY IN Branch (1.5 mL) THE InPn EVENING (ADJUSTING DOSE BY 2 UNITS DAILY UNTIL FASTING BLOOD SUGAR LESS THAN 200) VICTOZA Yes [id number] INJECT 1.8 [facility] 3-SOILA 0.6 1-26 MG UNDER ity of mg/0.1 mL 00:00: THE SKIN [place] (18 mg/3 00 IN THE Medical mL) MORNING Branch injection TOO Yes [id number] INJECT 72 Un reinier SOLOSTAR 1-26 UNITS ity of U-300 00:00: UNDER THE [place] INSULIN 300 00 SKIN ONCE Med ical unit/mL DAILY IN Branch (1.5 mL) THE InPn EVENING (ADJUSTING DOSE BY 2 UNITS DAILY UNTIL FASTING BLOOD SUGAR LESS THAN 200) VICTOZA Yes [id number] INJECT 1.8 [facility] 3-SOILA 0.6 1-26 MG UNDER ity of mg/0.1 mL 00:00: THE SKIN [place] (18 mg/3 00 IN THE Medical mL) MORNING Branch injection [facility] Yes [id number] INJECT 72 Un reinier SOLOSTAR 1-26 UNITS ity of U-300 00:00: UNDER THE [place] INSULIN 300 00 SKIN ONCE Med ical unit/mL DAILY IN Branch (1.5 mL) THE InPn EVENING (ADJUSTING DOSE BY 2 UNITS DAILY UNTIL FASTING BLOOD SUGAR LESS THAN 200) VICTOZA Yes [id number] INJECT 1.8 [facility] 3-SOILA 0.6 1-26 MG UNDER ity of mg/0.1 mL 00:00: THE SKIN [place] (18 mg/3 00 IN THE Medical mL) MORNING Branch injection [facility] Yes [id number] INJECT 72 Un reinier SOLOSTAR 1-26 UNITS ity of U-300 00:00: UNDER THE [place] INSULIN 300 00 SKIN ONCE Med ical unit/mL DAILY IN Branch (1.5 mL) THE InPn EVENING (ADJUSTING DOSE BY 2 UNITS DAILY UNTIL FASTING BLOOD SUGAR LESS THAN 200) VICTOZA Yes [id number] INJECT 1.8 [facility] 3-SOILA 0.6 1-26 MG UNDER ity of mg/0.1 mL 00:00: THE SKIN [place] (18 mg/3 00 IN THE Medical mL) MORNING Branch injection TOO Yes [id number] INJECT 72 Un reinier SOLOSTAR 1-26 UNITS ity of U-300 00:00: UNDER THE [place] INSULIN 300 00 SKIN ONCE Med ical unit/mL DAILY IN Branch (1.5 mL) THE InPn EVENING (ADJUSTING DOSE BY 2 UNITS DAILY UNTIL FASTING BLOOD SUGAR LESS THAN 200) VICTOZA Yes [id number] INJECT 1.8 [facility] 3-SOILA 0.6 1-26 MG UNDER ity of mg/0.1 mL 00:00: THE SKIN [place] (18 mg/3 00 IN THE Medical mL) MORNING Branch injection TOUJEO Yes [id number] INJECT 72 Un reinier SOLOSTAR 1-26 UNITS ity of U-300 00:00: UNDER THE [place] INSULIN 300 00 SKIN ONCE Med ical unit/mL DAILY IN Branch (1.5 mL) THE InPn EVENING (ADJUSTING DOSE BY 2 UNITS DAILY UNTIL FASTING BLOOD SUGAR LESS THAN 200) VICTOZA Yes [id number] INJECT 1.8 [facility] 3-SOILA 0.6 1-26 MG UNDER ity of mg/0.1 mL 00:00: THE SKIN [place] (18 mg/3 00 IN THE Medical mL) MORNING Branch injection TOJEO Yes [id number] INJECT 72 Un reinier SOLOSTAR 1-26 UNITS ity of U-300 00:00: UNDER THE [place] INSULIN 300 00 SKIN ONCE Med ical unit/mL DAILY IN Branch (1.5 mL) THE InPn EVENING (ADJUSTING DOSE BY 2 UNITS DAILY UNTIL FASTING BLOOD SUGAR LESS THAN 200) VICTOZA Yes [id number] INJECT 1.8 [facility] 3-SOILA 0.6 1-26 MG UNDER ity of mg/0.1 mL 00:00: THE SKIN [place] (18 mg/3 00 IN THE Medical mL) MORNING Branch injection TOJEO Yes [id number] INJECT 72 Un reinier SOLOSTAR 1-26 UNITS ity of U-300 00:00: UNDER THE [place] INSULIN 300 00 SKIN ONCE Med ical unit/mL DAILY IN Branch (1.5 mL) THE InPn EVENING (ADJUSTING DOSE BY 2 UNITS DAILY UNTIL FASTING BLOOD SUGAR LESS THAN 200) VICTOZA Yes [id number] INJECT 1.8 [facility] 3-SOILA 0.6 1-26 MG UNDER ity of mg/0.1 mL 00:00: THE SKIN [place] (18 mg/3 00 IN THE Medical mL) MORNING Branch injection TOUJEO Yes [id number] INJECT 72 Un reinier SOLOSTAR 1-26 UNITS ity of U-300 00:00: UNDER THE [place] INSULIN 300 00 SKIN ONCE Med ical unit/mL DAILY IN Branch (1.5 mL) THE InPn EVENING (ADJUSTING DOSE BY 2 UNITS DAILY UNTIL FASTING BLOOD SUGAR LESS THAN 200) VICTOZA Yes [id number] INJECT 1.8 [facility] 3-SOILA 0.6 1-26 MG UNDER ity of mg/0.1 mL 00:00: THE SKIN [place] (18 mg/3 00 IN THE Medical mL) MORNING Branch injection VICTOZA Yes [id number] INJECT 1.8 [facility] 3-SOILA 0.6 1-26 MG UNDER ity of mg/0.1 mL 00:00: THE SKIN [place] (18 mg/3 00 IN THE Medical mL) MORNING Branch injection VICTOZA Yes [id number] INJECT 1.8 [facility] 3-SOILA 0.6 1-26 MG UNDER ity of mg/0.1 mL 00:00: THE SKIN [place] (18 mg/3 00 IN THE Medical mL) MORNING Branch injection VICTOZA Yes [id number] INJECT 1.8 [facility] 3-SOILA 0.6 1-26 MG UNDER ity of mg/0.1 mL 00:00: THE SKIN [place] (18 mg/3 00 IN THE Medical mL) MORNING Branch injection VICTOZA Yes [id number] INJECT 1.8 [facility] 3-SOILA 0.6 1-26 MG UNDER ity of mg/0.1 mL 00:00: THE SKIN [place] (18 mg/3 00 IN THE Medical mL) MORNING Branch injection VICTOZA Yes [id number] INJECT 1.8 [facility] 3-SOILA 0.6 1-26 MG UNDER ity of mg/0.1 mL 00:00: THE SKIN [place] (18 mg/3 00 IN THE Medical mL) MORNING Branch injection VICTOZA Yes [id number] INJECT 1.8 [facility] 3-SOILA 0.6 1-26 MG UNDER ity of mg/0.1 mL 00:00: [place] (18 mg/3 00 IN THE Medical mL) MORNING Branch injection VICTOZA Yes [id number] INJECT 1.8 [facility] 3-SOILA 0.6 1-26 MG UNDER ity of mg/0.1 mL 00:00: [place] (18 mg/3 00 IN THE Medical mL) MORNING Branch injection VICTOZA 2022- No [id number] INJECT 1.8 [facility] 3-SOILA 0.6 1-26 03-09 MG UNDER ity o f mg/0.1 mL 00:00: 00:00 THE SKIN [place] (18 mg/3 00 :00 IN THE Medical mL) MORNING Branch injection TOUJEO 2022- No [id number] INJECT 72 U nivers SOLOSTAR -26 02-15 UNITS ity of U-300 00:00: 00:00 UNDER THE [place] INSULIN 300 00 :00 SKIN ONCE Med ical unit/mL DAILY IN Branch (1.5 mL) THE InPn EVENING (ADJUSTING DOSE BY 2 UNITS DAILY UNTIL FASTING BLOOD SUGAR LESS THAN 200) HYDROcodone Yes 2745 TAKE 1 Univ ers -acetaminop 1-18 TABLET BY ity of hen 10-325 00:00: MOUTH [place] mg tablet 00 EVERY 4 Medical HOURS Branch NEEDED FOR PAIN (SCALE 4-6) *MAY MAKE DROWSY* Indication s: chronic pain HYDROcodone Yes 2745 TAKE 1 Univ ers -acetaminop 1-18 TABLET BY ity of hen 10-325 00:00: MOUTH [place] mg tablet 00 EVERY 4 Medical HOURS Branch NEEDED FOR PAIN (SCALE 4-6) *MAY MAKE DROWSY* Indication s: chronic pain HYDROcodone Yes 2745 TAKE 1 Univ ers -acetaminop 1-18 TABLET BY ity of hen 10-325 00:00: MOUTH [place] mg tablet 00 EVERY 4 Medical HOURS Branch NEEDED FOR PAIN (SCALE 4-6) *MAY MAKE DROWSY* Indication s: chronic pain HYDROcodone Yes 2745 TAKE 1 Univ ers -acetaminop 1-18 TABLET BY ity of hen 10-325 00:00: MOUTH [place] mg tablet 00 EVERY 4 Medical HOURS Branch NEEDED FOR PAIN (SCALE 4-6) *MAY MAKE DROWSY* Indication s: chronic pain HYDROcodone Yes 2745 TAKE 1 [facility] -acetaminop 1-18 TABLET BY [facility] 10-325 00:00: MOUTH [place] mg tablet 00 EVERY 4 Medical HOURS Branch NEEDED FOR PAIN (SCALE 4-6) *MAY MAKE DROWSY* Indication s: chronic pain HYDROcodone Yes 2745 TAKE 1 [facility] -acetaminop 1-18 TABLET BY [facility] 10-325 00:00: MOUTH [place] mg tablet 00 EVERY 4 Medical HOURS Branch NEEDED FOR PAIN (SCALE 4-6) *MAY MAKE DROWSY* Indication s: chronic pain HYDROcodone Yes 2745 TAKE 1 [facility] -acetaminop 1-18 TABLET BY [facility] 10-325 00:00: MOUTH [place] mg tablet 00 EVERY 4 Medical HOURS Branch NEEDED FOR PAIN (SCALE 4-6) *MAY MAKE DROWSY* Indication s: chronic pain HYDROcodone Yes 2745 TAKE 1 [facility] -acetaminop 1-18 TABLET BY [facility] 10-325 00:00: MOUTH [place] mg tablet 00 EVERY 4 Medical HOURS Branch NEEDED FOR PAIN (SCALE 4-6) *MAY MAKE DROWSY* Indication s: chronic pain HYDROcodone Yes 2745 TAKE 1 [facility] -acetaminop 1-18 TABLET BY [facility] 10-325 00:00: MOUTH [place] mg tablet 00 EVERY 4 Medical HOURS Branch NEEDED FOR PAIN (SCALE 4-6) *MAY MAKE DROWSY* Indication s: chronic pain HYDROcodone Yes 2745 TAKE 1 [facility] -acetaminop 1-18 TABLET BY [facility] 10-325 00:00: MOUTH [place] mg tablet 00 EVERY 4 Medical HOURS Branch NEEDED FOR PAIN (SCALE 4-6) *MAY MAKE DROWSY* Indication s: chronic pain HYDROcodone Yes 2745 TAKE 1 [facility] -acetaminop 1-18 TABLET BY [facility] 10-325 00:00: MOUTH [place] mg tablet 00 EVERY 4 Medical HOURS Branch NEEDED FOR PAIN (SCALE 4-6) *MAY MAKE DROWSY* Indication s: chronic pain HYDROcodone Yes 2745 TAKE 1 [facility] -acetaminop 1-18 TABLET BY [facility] 10-325 00:00: MOUTH [place] mg tablet 00 EVERY 4 Medical HOURS Branch NEEDED FOR PAIN (SCALE 4-6) *MAY MAKE DROWSY* Indication s: chronic pain HYDROcodone Yes 2745 TAKE 1 [facility] -acetaminop 1-18 TABLET BY [facility] 10-325 00:00: MOUTH [place] mg tablet 00 EVERY 4 Medical HOURS Branch NEEDED FOR PAIN (SCALE 4-6) *MAY MAKE DROWSY* Indication s: chronic pain HYDROcodone 2022-0 2022- No 2745 TAKE 1 [facility] -acetaminop 1-18 02-16 TABLET BY [facility] 10-325 00:00: 00:00 MOUTH [place] mg tablet 00 :00 EVERY 4 Medical HOURS Branch NEEDED FOR PAIN (SCALE 4-6) *MAY MAKE DROWSY* Indication s: chronic pain IBUPROFEN 0 Yes [id number] TAKE 1 [facility] 800 mg 1-17 TABLET BY [facility] tablet 00:00: MOUTH [place] 00 EVERY 6 Medical HOURS WITH Branch FOOD NEEDED FOR PAIN *DO NOT TAKE ASPIRIN* IBUPROFEN 0 Yes [id number] TAKE 1 [facility] 800 mg 1-17 TABLET BY [facility] of tablet 00:00: MOUTH [place] 00 EVERY 6 Medical HOURS WITH Branch FOOD NEEDED FOR PAIN *DO NOT TAKE ASPIRIN* IBUPROFEN 2022-0 Yes [id number] TAKE 1 [facility] 800 mg 1-17 TABLET BY [facility] of tablet 00:00: MOUTH [place] 00 EVERY 6 Medical HOURS WITH Branch FOOD NEEDED FOR PAIN *DO NOT TAKE ASPIRIN* IBUPROFEN 0 Yes [id number] TAKE 1 [facility] 800 mg 1-17 TABLET BY [facility] of tablet 00:00: MOUTH [place] 00 EVERY 6 Medical HOURS WITH Branch FOOD NEEDED FOR PAIN *DO NOT TAKE ASPIRIN* IBUPROFEN 2022-0 Yes [id number] TAKE 1 [facility] 800 mg 1-17 TABLET BY [facility] of tablet 00:00: MOUTH [place] 00 EVERY 6 Medical HOURS WITH Branch FOOD NEEDED FOR PAIN *DO NOT TAKE ASPIRIN* IBUPROFEN 2022-0 Yes [id number] TAKE 1 [facility] 800 mg 1-17 TABLET BY [facility] tablet 00:00: MOUTH [place] 00 EVERY 6 Medical HOURS WITH Branch FOOD NEEDED FOR PAIN *DO NOT TAKE ASPIRIN* IBUPROFEN 2022-0 2022- No [id number] TAKE 1 [facility] 800 mg 1-17 01-31 TABLET BY [facility] tablet 00:00: 00:00 MOUTH [place] 00 :00 EVERY 6 Medical HOURS WITH Branch FOOD NEEDED FOR PAIN *DO NOT TAKE ASPIRIN* DIPHENOXYLA 2022-0 Yes [id number] TAKE 2 [facility] TE-ATROPINE 1-06 TABLETS BY it y of 2.5-0.025 00:00: MOUTH 4 [place] mg tablet 00 TIMES Medical DAILY Branch NEEDED FOR LOOSE STOOLS *MAY IMPAIR ALERTNESS* * DIPHENOXYLA 2022-0 Yes [id number] TAKE 2 [facility] TE-ATROPINE 1-06 TABLETS BY it y of 2.5-0.025 00:00: MOUTH 4 [place] mg tablet 00 TIMES Medical DAILY Branch NEEDED FOR LOOSE STOOLS *MAY IMPAIR ALERTNESS* * DIPHENOXYLA 2022-0 Yes [id number] TAKE 2 [facility] TE-ATROPINE 1-06 TABLETS BY it y of 2.5-0.025 00:00: MOUTH 4 [place] mg tablet 00 TIMES Medical DAILY Branch NEEDED FOR LOOSE STOOLS *MAY IMPAIR ALERTNESS* * DIPHENOXYLA 2022-0 Yes [id number] TAKE 2 [facility] TE-ATROPINE 1-06 TABLETS BY it y of 2.5-0.025 00:00: MOUTH 4 [place] mg tablet 00 TIMES Medical DAILY Branch NEEDED FOR LOOSE STOOLS *MAY IMPAIR ALERTNESS* * DIPHENOXYLA 2022-0 Yes [id number] TAKE 2 [facility] TE-ATROPINE 1-06 TABLETS BY it y of 2.5-0.025 00:00: MOUTH 4 [place] mg tablet 00 TIMES Medical DAILY Branch NEEDED FOR LOOSE STOOLS *MAY IMPAIR ALERTNESS* * DIPHENOXYLA 2022-0 Yes [id number] TAKE 2 [facility] TE-ATROPINE 1-06 TABLETS BY it y of 2.5-0.025 00:00: MOUTH 4 [place] mg tablet 00 TIMES Medical DAILY Branch NEEDED FOR LOOSE STOOLS *MAY IMPAIR ALERTNESS* * DIPHENOXYLA 2022-0 Yes [id number] TAKE 2 [facility] TE-ATROPINE 1-06 TABLETS BY it y of 2.5-0.025 00:00: MOUTH 4 [place] mg tablet 00 TIMES Medical DAILY Branch NEEDED FOR LOOSE STOOLS *MAY IMPAIR ALERTNESS* * DIPHENOXYLA 2022-0 Yes [id number] TAKE 2 [facility] TE-ATROPINE 1-06 TABLETS BY it y of 2.5-0.025 00:00: MOUTH 4 [place] mg tablet 00 TIMES Medical DAILY Branch NEEDED FOR LOOSE STOOLS *MAY IMPAIR ALERTNESS* * DIPHENOXYLA 2022-0 Yes [id number] TAKE 2 [facility] TE-ATROPINE 1-06 TABLETS BY it y of 2.5-0.025 00:00: MOUTH 4 [place] mg tablet 00 TIMES Medical DAILY Branch NEEDED FOR LOOSE STOOLS *MAY IMPAIR ALERTNESS* * DIPHENOXYLA 2022-0 Yes [id number] TAKE 2 [facility] TE-ATROPINE 1-06 TABLETS BY it y of 2.5-0.025 00:00: MOUTH 4 [place] mg tablet 00 TIMES Medical DAILY Branch NEEDED FOR LOOSE STOOLS *MAY IMPAIR ALERTNESS* * DIPHENOXYLA 2022-0 Yes [id number] TAKE 2 [facility] TE-ATROPINE 1-06 TABLETS BY it y of 2.5-0.025 00:00: MOUTH 4 [place] mg tablet 00 TIMES Medical DAILY Branch NEEDED FOR LOOSE STOOLS *MAY IMPAIR ALERTNESS* * DIPHENOXYLA 2022-0 Yes [id number] TAKE 2 [facility] TE-ATROPINE 1-06 TABLETS BY it y of 2.5-0.025 00:00: MOUTH 4 [place] mg tablet 00 TIMES Medical DAILY Branch NEEDED FOR LOOSE STOOLS *MAY IMPAIR ALERTNESS* * DIPHENOXYLA 2022-0 Yes [id number] TAKE 2 [facility] TE-ATROPINE 1-06 TABLETS BY it y of 2.5-0.025 00:00: MOUTH 4 [place] mg tablet 00 TIMES Medical DAILY Branch NEEDED FOR LOOSE STOOLS *MAY IMPAIR ALERTNESS* * DIPHENOXYLA 2022-0 Yes [id number] TAKE 2 [facility] TE-ATROPINE 1-06 TABLETS BY it y of 2.5-0.025 00:00: MOUTH 4 [place] mg tablet 00 TIMES Medical DAILY Branch NEEDED FOR LOOSE STOOLS *MAY IMPAIR ALERTNESS* * DIPHENOXYLA 2022-0 Yes [id number] TAKE 2 [facility] TE-ATROPINE 1-06 TABLETS BY it y of 2.5-0.025 00:00: MOUTH 4 [place] mg tablet 00 TIMES Medical DAILY Branch NEEDED FOR LOOSE STOOLS *MAY IMPAIR ALERTNESS* * DIPHENOXYLA 2022-0 Yes [id number] TAKE 2 [facility] TE-ATROPINE 1-06 TABLETS BY it y of 2.5-0.025 00:00: MOUTH 4 [place] mg tablet 00 TIMES Medical DAILY Branch NEEDED FOR LOOSE STOOLS *MAY IMPAIR ALERTNESS* * DIPHENOXYLA 3-0 Yes [id number] TAKE 2 [facility] TE-ATROPINE 1-06 TABLETS BY it y of 2.5-0.025 00:00: MOUTH 4 [place] mg tablet 00 TIMES Medical DAILY Branch NEEDED FOR LOOSE STOOLS *MAY IMPAIR ALERTNESS* * DIPHENOXYLA 2022-0 Yes [id number] TAKE 2 [facility] TE-ATROPINE 1-06 TABLETS BY it y of 2.5-0.025 00:00: MOUTH 4 [place] mg tablet 00 TIMES Medical DAILY Branch NEEDED FOR LOOSE STOOLS *MAY IMPAIR ALERTNESS* * DIPHENOXYLA 2022-0 Yes [id number] TAKE 2 [facility] TE-ATROPINE 1-06 TABLETS BY it y of 2.5-0.025 00:00: MOUTH 4 [place] mg tablet 00 TIMES Medical DAILY Branch NEEDED FOR LOOSE STOOLS *MAY IMPAIR ALERTNESS* * DIPHENOXYLA 2022-0 Yes [id number] TAKE 2 [facility] TE-ATROPINE 1-06 TABLETS BY it y of 2.5-0.025 00:00: MOUTH 4 [place] mg tablet 00 TIMES Medical DAILY Branch NEEDED FOR LOOSE STOOLS *MAY IMPAIR ALERTNESS* * DIPHENOXYLA 2022-0 Yes [id number] TAKE 2 [facility] TE-ATROPINE 1-06 TABLETS BY it y of 2.5-0.025 00:00: MOUTH 4 [place] mg tablet 00 TIMES Medical DAILY Branch NEEDED FOR LOOSE STOOLS *MAY IMPAIR ALERTNESS* * DIPHENOXYLA 2022-0 Yes [id number] TAKE 2 [facility] TE-ATROPINE 1-06 TABLETS BY it y of 2.5-0.025 00:00: MOUTH 4 [place] mg tablet 00 TIMES Medical DAILY Branch NEEDED FOR LOOSE STOOLS *MAY IMPAIR ALERTNESS* * DIPHENOXYLA 2022-0 Yes [id number] TAKE 2 [facility] TE-ATROPINE 1-06 TABLETS BY it y of 2.5-0.025 00:00: MOUTH 4 [place] mg tablet 00 TIMES Medical DAILY Branch NEEDED FOR LOOSE STOOLS *MAY IMPAIR ALERTNESS* * DIPHENOXYLA 3-0 Yes [id number] TAKE 2 [facility] TE-ATROPINE 1-06 TABLETS BY it y of 2.5-0.025 00:00: MOUTH 4 [place] mg tablet 00 TIMES Medical DAILY Branch NEEDED FOR LOOSE STOOLS *MAY IMPAIR ALERTNESS* * DIPHENOXYLA 3-0 Yes [id number] TAKE 2 [facility] TE-ATROPINE 1-06 TABLETS BY it y of 2.5-0.025 00:00: MOUTH 4 [place] mg tablet 00 TIMES Medical DAILY Branch NEEDED FOR LOOSE STOOLS *MAY IMPAIR ALERTNESS* * DIPHENOXYLA 2023-0 Yes [id number] TAKE 2 [facility] TE-ATROPINE 1-06 TABLETS BY it y of 2.5-0.025 00:00: MOUTH 4 [place] mg tablet 00 TIMES Medical DAILY Branch NEEDED FOR LOOSE STOOLS *MAY IMPAIR ALERTNESS* * DIPHENOXYLA 2022-0 Yes [id number] TAKE 2 [facility] TE-ATROPINE 1-06 TABLETS BY it y of 2.5-0.025 00:00: MOUTH 4 [place] mg tablet 00 TIMES Medical DAILY Branch NEEDED FOR LOOSE STOOLS *MAY IMPAIR ALERTNESS* * DIPHENOXYLA 2022-0 Yes [id number] TAKE 2 [facility] TE-ATROPINE 1-06 TABLETS BY it y of 2.5-0.025 00:00: MOUTH 4 [place] mg tablet 00 TIMES Medical DAILY Branch NEEDED FOR LOOSE STOOLS *MAY IMPAIR ALERTNESS* * DIPHENOXYLA 2022-0 Yes [id number] TAKE 2 [facility] TE-ATROPINE 1-06 TABLETS BY it y of 2.5-0.025 00:00: MOUTH 4 [place] mg tablet 00 TIMES Medical DAILY Branch NEEDED FOR LOOSE STOOLS *MAY IMPAIR ALERTNESS* * DIPHENOXYLA 2022-0 Yes [id number] TAKE 2 [facility] TE-ATROPINE 1-06 TABLETS BY it y of 2.5-0.025 00:00: MOUTH 4 [place] mg tablet 00 TIMES Medical DAILY Branch NEEDED FOR LOOSE STOOLS *MAY IMPAIR ALERTNESS* * DIPHENOXYLA 2022-0 Yes [id number] TAKE 2 [facility] TE-ATROPINE 1-06 TABLETS BY it y of 2.5-0.025 00:00: MOUTH 4 [place] mg tablet 00 TIMES Medical DAILY Branch NEEDED FOR LOOSE STOOLS *MAY IMPAIR ALERTNESS* * DIPHENOXYLA 2022-0 Yes [id number] TAKE 2 [facility] TE-ATROPINE 1-06 TABLETS BY it y of 2.5-0.025 00:00: MOUTH 4 [place] mg tablet 00 TIMES Medical DAILY Branch NEEDED FOR LOOSE STOOLS *MAY IMPAIR ALERTNESS* * DIPHENOXYLA 2022-0 Yes [id number] TAKE 2 [facility] TE-ATROPINE 1-06 TABLETS BY it y of 2.5-0.025 00:00: MOUTH 4 [place] mg tablet 00 TIMES Medical DAILY Branch NEEDED FOR LOOSE STOOLS *MAY IMPAIR ALERTNESS* * DIPHENOXYLA 2022-0 Yes [id number] TAKE 2 [facility] TE-ATROPINE 1-06 TABLETS BY it y of 2.5-0.025 00:00: MOUTH 4 [place] mg tablet 00 TIMES Medical DAILY Branch NEEDED FOR LOOSE STOOLS *MAY IMPAIR ALERTNESS* * DIPHENOXYLA 2022-0 Yes [id number] TAKE 2 [facility] TE-ATROPINE 1-06 TABLETS BY it y of 2.5-0.025 00:00: MOUTH 4 [place] mg tablet 00 TIMES Medical DAILY Branch NEEDED FOR LOOSE STOOLS *MAY IMPAIR ALERTNESS* * DIPHENOXYLA 2022-0 Yes [id number] TAKE 2 [facility] TE-ATROPINE 1-06 TABLETS BY it y of 2.5-0.025 00:00: MOUTH 4 [place] mg tablet 00 TIMES Medical DAILY Branch NEEDED FOR LOOSE STOOLS *MAY IMPAIR ALERTNESS* * DIPHENOXYLA 2022-0 Yes [id number] TAKE 2 [facility] TE-ATROPINE 1-06 TABLETS BY it y of 2.5-0.025 00:00: MOUTH 4 [place] mg tablet 00 TIMES Medical DAILY Branch NEEDED FOR LOOSE STOOLS *MAY IMPAIR ALERTNESS* * DIPHENOXYLA 2022-0 Yes [id number] TAKE 2 [facility] TE-ATROPINE 1-06 TABLETS BY it y of 2.5-0.025 00:00: MOUTH 4 [place] mg tablet 00 TIMES Medical DAILY Branch NEEDED FOR LOOSE STOOLS *MAY IMPAIR ALERTNESS* * DIPHENOXYLA 2022-0 Yes [id number] TAKE 2 [facility] TE-ATROPINE 1-06 TABLETS BY it y of 2.5-0.025 00:00: MOUTH 4 [place] mg tablet 00 TIMES Medical DAILY Branch NEEDED FOR LOOSE STOOLS *MAY IMPAIR ALERTNESS* * DIPHENOXYLA 2022-0 Yes [id number] TAKE 2 [facility] TE-ATROPINE 1-06 TABLETS BY it y of 2.5-0.025 00:00: MOUTH 4 [place] mg tablet 00 TIMES Medical DAILY Branch NEEDED FOR LOOSE STOOLS *MAY IMPAIR ALERTNESS* * DIPHENOXYLA 2022-0 Yes [id number] TAKE 2 [facility] TE-ATROPINE 1-06 TABLETS BY it y of 2.5-0.025 00:00: MOUTH 4 [place] mg tablet 00 TIMES Medical DAILY Branch NEEDED FOR LOOSE STOOLS *MAY IMPAIR ALERTNESS* * DIPHENOXYLA 3-0 Yes [id number] TAKE 2 [facility] TE-ATROPINE 1-06 TABLETS BY it y of 2.5-0.025 00:00: MOUTH 4 [place] mg tablet 00 TIMES Medical DAILY Branch NEEDED FOR LOOSE STOOLS *MAY IMPAIR ALERTNESS* * DIPHENOXYLA 2022-0 Yes [id number] TAKE 2 [facility] TE-ATROPINE 1-06 TABLETS BY it y of 2.5-0.025 00:00: MOUTH 4 [place] mg tablet 00 TIMES Medical DAILY Branch NEEDED FOR LOOSE STOOLS *MAY IMPAIR ALERTNESS* * DIPHENOXYLA 2022-0 Yes [id number] TAKE 2 [facility] TE-ATROPINE 1-06 TABLETS BY it y of 2.5-0.025 00:00: MOUTH 4 [place] mg tablet 00 TIMES Medical DAILY Branch NEEDED FOR LOOSE STOOLS *MAY IMPAIR ALERTNESS* * DIPHENOXYLA 2022-0 Yes [id number] TAKE 2 [facility] TE-ATROPINE 1-06 TABLETS BY it y of 2.5-0.025 00:00: MOUTH 4 [place] mg tablet 00 TIMES Medical DAILY Branch NEEDED FOR LOOSE STOOLS *MAY IMPAIR ALERTNESS* * DIPHENOXYLA 2022-0 Yes [id number] TAKE 2 [facility] TE-ATROPINE 1-06 TABLETS BY it y of 2.5-0.025 00:00: MOUTH 4 [place] mg tablet 00 TIMES Medical DAILY Branch NEEDED FOR LOOSE STOOLS *MAY IMPAIR ALERTNESS* * DIPHENOXYLA 2022-0 Yes [id number] TAKE 2 [facility] TE-ATROPINE 1-06 TABLETS BY it y of 2.5-0.025 00:00: MOUTH 4 [place] mg tablet 00 TIMES Medical DAILY Branch NEEDED FOR LOOSE STOOLS *MAY IMPAIR ALERTNESS* * DIPHENOXYLA 2022-0 Yes [id number] TAKE 2 [facility] TE-ATROPINE 1-06 TABLETS BY it y of 2.5-0.025 00:00: MOUTH 4 [place] mg tablet 00 TIMES Medical DAILY Branch NEEDED FOR LOOSE STOOLS *MAY IMPAIR ALERTNESS* * DIPHENOXYLA 3-0 Yes [id number] TAKE 2 [facility] TE-ATROPINE 1-06 TABLETS BY it y of 2.5-0.025 00:00: MOUTH 4 [place] mg tablet 00 TIMES Medical DAILY Branch NEEDED FOR LOOSE STOOLS *MAY IMPAIR ALERTNESS* * DIPHENOXYLA 3-0 Yes [id number] TAKE 2 [facility] TE-ATROPINE 1-06 TABLETS BY it y of 2.5-0.025 00:00: MOUTH 4 [place] mg tablet 00 TIMES Medical DAILY Branch NEEDED FOR LOOSE STOOLS *MAY IMPAIR ALERTNESS* * DIPHENOXYLA 2023-0 Yes [id number] TAKE 2 [facility] TE-ATROPINE 1-06 TABLETS BY it y of 2.5-0.025 00:00: MOUTH 4 [place] mg tablet 00 TIMES Medical DAILY Branch NEEDED FOR LOOSE STOOLS *MAY IMPAIR ALERTNESS* * DIPHENOXYLA 2022-0 Yes [id number] TAKE 2 [facility] TE-ATROPINE 1-06 TABLETS BY it y of 2.5-0.025 00:00: MOUTH 4 [place] mg tablet 00 TIMES Medical DAILY Branch NEEDED FOR LOOSE STOOLS *MAY IMPAIR ALERTNESS* * DIPHENOXYLA 2022-0 Yes [id number] TAKE 2 [facility] TE-ATROPINE 1-06 TABLETS BY it y of 2.5-0.025 00:00: MOUTH 4 [place] mg tablet 00 TIMES Medical DAILY Branch NEEDED FOR LOOSE STOOLS *MAY IMPAIR ALERTNESS* * DIPHENOXYLA 2022-0 Yes [id number] TAKE 2 [facility] TE-ATROPINE 1-06 TABLETS BY it y of 2.5-0.025 00:00: MOUTH 4 [place] mg tablet 00 TIMES Medical DAILY Branch NEEDED FOR LOOSE STOOLS *MAY IMPAIR ALERTNESS* * DIPHENOXYLA 2022-0 Yes [id number] TAKE 2 [facility] TE-ATROPINE 1-06 TABLETS BY it y of 2.5-0.025 00:00: MOUTH 4 [place] mg tablet 00 TIMES Medical DAILY Branch NEEDED FOR LOOSE STOOLS *MAY IMPAIR ALERTNESS* * DIPHENOXYLA 2022-0 Yes [id number] TAKE 2 [facility] TE-ATROPINE 1-06 TABLETS BY it y of 2.5-0.025 00:00: MOUTH 4 [place] mg tablet 00 TIMES Medical DAILY Branch NEEDED FOR LOOSE STOOLS *MAY IMPAIR ALERTNESS* * DIPHENOXYLA 2022-0 Yes [id number] TAKE 2 [facility] TE-ATROPINE 1-06 TABLETS BY it y of 2.5-0.025 00:00: MOUTH 4 [place] mg tablet 00 TIMES Medical DAILY Branch NEEDED FOR LOOSE STOOLS *MAY IMPAIR ALERTNESS* * DIPHENOXYLA 2022-0 Yes [id number] TAKE 2 [facility] TE-ATROPINE 1-06 TABLETS BY it y of 2.5-0.025 00:00: MOUTH 4 [place] mg tablet 00 TIMES Medical DAILY Branch NEEDED FOR LOOSE STOOLS *MAY IMPAIR ALERTNESS* * DIPHENOXYLA 2022-0 Yes [id number] TAKE 2 [facility] TE-ATROPINE 1-06 TABLETS BY it y of 2.5-0.025 00:00: MOUTH 4 [place] mg tablet 00 TIMES Medical DAILY Branch NEEDED FOR LOOSE STOOLS *MAY IMPAIR ALERTNESS* * DIPHENOXYLA 2022-0 Yes [id number] TAKE 2 [facility] TE-ATROPINE 1-06 TABLETS BY it y of 2.5-0.025 00:00: MOUTH 4 [place] mg tablet 00 TIMES Medical DAILY Branch NEEDED FOR LOOSE STOOLS *MAY IMPAIR ALERTNESS* * DIPHENOXYLA 2022-0 Yes [id number] TAKE 2 [facility] TE-ATROPINE 1-06 TABLETS BY it y of 2.5-0.025 00:00: MOUTH 4 [place] mg tablet 00 TIMES Medical DAILY Branch NEEDED FOR LOOSE STOOLS *MAY IMPAIR ALERTNESS* * DIPHENOXYLA 2022-0 Yes [id number] TAKE 2 [facility] TE-ATROPINE 1-06 TABLETS BY it y of 2.5-0.025 00:00: MOUTH 4 [place] mg tablet 00 TIMES Medical DAILY Branch NEEDED FOR LOOSE STOOLS *MAY IMPAIR ALERTNESS* * DIPHENOXYLA 2022-0 Yes [id number] TAKE 2 [facility] TE-ATROPINE 1-06 TABLETS BY it y of 2.5-0.025 00:00: MOUTH 4 [place] mg tablet 00 TIMES Medical DAILY Branch NEEDED FOR LOOSE STOOLS *MAY IMPAIR ALERTNESS* * DIPHENOXYLA 2022-0 Yes [id number] TAKE 2 [facility] TE-ATROPINE 1-06 TABLETS BY it y of 2.5-0.025 00:00: MOUTH 4 [place] mg tablet 00 TIMES Medical DAILY Branch NEEDED FOR LOOSE STOOLS *MAY IMPAIR ALERTNESS* * DIPHENOXYLA 2022-0 Yes [id number] TAKE 2 [facility] TE-ATROPINE 1-06 TABLETS BY it y of 2.5-0.025 00:00: MOUTH 4 [place] mg tablet 00 TIMES Medical DAILY Branch NEEDED FOR LOOSE STOOLS *MAY IMPAIR ALERTNESS* * DIPHENOXYLA 2022-0 Yes [id number] TAKE 2 [facility] TE-ATROPINE 1-06 TABLETS BY it y of 2.5-0.025 00:00: MOUTH 4 [place] mg tablet 00 TIMES Medical DAILY Branch NEEDED FOR LOOSE STOOLS *MAY IMPAIR ALERTNESS* * DIPHENOXYLA 3-0 Yes [id number] TAKE 2 [facility] TE-ATROPINE 1-06 TABLETS BY it y of 2.5-0.025 00:00: MOUTH 4 [place] mg tablet 00 TIMES Medical DAILY Branch NEEDED FOR LOOSE STOOLS *MAY IMPAIR ALERTNESS* * DIPHENOXYLA 2022-0 Yes [id number] TAKE 2 [facility] TE-ATROPINE 1-06 TABLETS BY it y of 2.5-0.025 00:00: MOUTH 4 [place] mg tablet 00 TIMES Medical DAILY Branch NEEDED FOR LOOSE STOOLS *MAY IMPAIR ALERTNESS* * DIPHENOXYLA 2022-0 Yes [id number] TAKE 2 [facility] TE-ATROPINE 1-06 TABLETS BY it y of 2.5-0.025 00:00: MOUTH 4 [place] mg tablet 00 TIMES Medical DAILY Branch NEEDED FOR LOOSE STOOLS *MAY IMPAIR ALERTNESS* * DIPHENOXYLA 2022-0 Yes [id number] TAKE 2 [facility] TE-ATROPINE 1-06 TABLETS BY it y of 2.5-0.025 00:00: MOUTH 4 [place] mg tablet 00 TIMES Medical DAILY Branch NEEDED FOR LOOSE STOOLS *MAY IMPAIR ALERTNESS* * DIPHENOXYLA 2022-0 Yes [id number] TAKE 2 [facility] TE-ATROPINE 1-06 TABLETS BY it y of 2.5-0.025 00:00: MOUTH 4 [place] mg tablet 00 TIMES Medical DAILY Branch NEEDED FOR LOOSE STOOLS *MAY IMPAIR ALERTNESS* * DIPHENOXYLA 2022-0 Yes [id number] TAKE 2 [facility] TE-ATROPINE 1-06 TABLETS BY it y of 2.5-0.025 00:00: MOUTH 4 [place] mg tablet 00 TIMES Medical DAILY Branch NEEDED FOR LOOSE STOOLS *MAY IMPAIR ALERTNESS* * DIPHENOXYLA 2022-0 Yes [id number] TAKE 2 [facility] TE-ATROPINE 1-06 TABLETS BY it y of 2.5-0.025 00:00: MOUTH 4 [place] mg tablet 00 TIMES Medical DAILY Branch NEEDED FOR LOOSE STOOLS *MAY IMPAIR ALERTNESS* * DIPHENOXYLA 3-0 Yes [id number] TAKE 2 [facility] TE-ATROPINE 1-06 TABLETS BY it y of 2.5-0.025 00:00: MOUTH 4 [place] mg tablet 00 TIMES Medical DAILY Branch NEEDED FOR LOOSE STOOLS *MAY IMPAIR ALERTNESS* * DIPHENOXYLA 3-0 Yes [id number] TAKE 2 [facility] TE-ATROPINE 1-06 TABLETS BY it y of 2.5-0.025 00:00: MOUTH 4 [place] mg tablet 00 TIMES Medical DAILY Branch NEEDED FOR LOOSE STOOLS *MAY IMPAIR ALERTNESS* * DIPHENOXYLA 2023-0 Yes [id number] TAKE 2 [facility] TE-ATROPINE 1-06 TABLETS BY it y of 2.5-0.025 00:00: MOUTH 4 [place] mg tablet 00 TIMES Medical DAILY Branch NEEDED FOR LOOSE STOOLS *MAY IMPAIR ALERTNESS* * DIPHENOXYLA 2022-0 Yes [id number] TAKE 2 [facility] TE-ATROPINE 1-06 TABLETS BY it y of 2.5-0.025 00:00: MOUTH 4 [place] mg tablet 00 TIMES Medical DAILY Branch NEEDED FOR LOOSE STOOLS *MAY IMPAIR ALERTNESS* * DIPHENOXYLA 2022-0 Yes [id number] TAKE 2 [facility] TE-ATROPINE 1-06 TABLETS BY it y of 2.5-0.025 00:00: MOUTH 4 [place] mg tablet 00 TIMES Medical DAILY Branch NEEDED FOR LOOSE STOOLS *MAY IMPAIR ALERTNESS* * DIPHENOXYLA 2022-0 Yes [id number] TAKE 2 [facility] TE-ATROPINE 1-06 TABLETS BY it y of 2.5-0.025 00:00: MOUTH 4 [place] mg tablet 00 TIMES Medical DAILY Branch NEEDED FOR LOOSE STOOLS *MAY IMPAIR ALERTNESS* * DIPHENOXYLA 2022-0 Yes [id number] TAKE 2 [facility] TE-ATROPINE 1-06 TABLETS BY it y of 2.5-0.025 00:00: MOUTH 4 [place] mg tablet 00 TIMES Medical DAILY Branch NEEDED FOR LOOSE STOOLS *MAY IMPAIR ALERTNESS* * DIPHENOXYLA 2022-0 Yes [id number] TAKE 2 [facility] TE-ATROPINE 1-06 TABLETS BY it y of 2.5-0.025 00:00: MOUTH 4 [place] mg tablet 00 TIMES Medical DAILY Branch NEEDED FOR LOOSE STOOLS *MAY IMPAIR ALERTNESS* * DIPHENOXYLA 2022-0 Yes [id number] TAKE 2 [facility] TE-ATROPINE 1-06 TABLETS BY it y of 2.5-0.025 00:00: MOUTH 4 [place] mg tablet 00 TIMES Medical DAILY Branch NEEDED FOR LOOSE STOOLS *MAY IMPAIR ALERTNESS* * DIPHENOXYLA 2022-0 Yes [id number] TAKE 2 [facility] TE-ATROPINE 1-06 TABLETS BY it y of 2.5-0.025 00:00: MOUTH 4 [place] mg tablet 00 TIMES Medical DAILY Branch NEEDED FOR LOOSE STOOLS *MAY IMPAIR ALERTNESS* * DIPHENOXYLA 2022-0 Yes [id number] TAKE 2 [facility] TE-ATROPINE 1-06 TABLETS BY it y of 2.5-0.025 00:00: MOUTH 4 [place] mg tablet 00 TIMES Medical DAILY Branch NEEDED FOR LOOSE STOOLS *MAY IMPAIR ALERTNESS* * DIPHENOXYLA 2022-0 Yes [id number] TAKE 2 [facility] TE-ATROPINE 1-06 TABLETS BY it y of 2.5-0.025 00:00: MOUTH 4 [place] mg tablet 00 TIMES Medical DAILY Branch NEEDED FOR LOOSE STOOLS *MAY IMPAIR ALERTNESS* * DIPHENOXYLA 2022-0 Yes [id number] TAKE 2 [facility] TE-ATROPINE 1-06 TABLETS BY it y of 2.5-0.025 00:00: MOUTH 4 [place] mg tablet 00 TIMES Medical DAILY Branch NEEDED FOR LOOSE STOOLS *MAY IMPAIR ALERTNESS* * DIPHENOXYLA 2022-0 Yes [id number] TAKE 2 [facility] TE-ATROPINE 1-06 TABLETS BY it y of 2.5-0.025 00:00: MOUTH 4 [place] mg tablet 00 TIMES Medical DAILY Branch NEEDED FOR LOOSE STOOLS *MAY IMPAIR ALERTNESS* * POTASSIUM 2022-0 Yes [id number] TAKE 1 [facility] CHLORIDE 10 1-03 TABLET BY ity of mEq CR 00:00: MOUTH [place] tablet 00 DAILY WITH Medical A GLASS OF Branch WATER POTASSIUM 2022-0 Yes [id number] TAKE 1 [facility] CHLORIDE 10 1-03 TABLET BY ity of mEq CR 00:00: MOUTH [place] tablet 00 DAILY WITH Medical A GLASS OF Branch WATER Insulin 2022-0 Yes [id number] USE [facility] [place], 1-03 DIRECTED ity of Disposable, 00:00: [place] (SURE 00 Medical COMFORT PEN Branch NEEDLE) 32 gauge x 5/32" Ndle POTASSIUM 2022-0 Yes [id number] TAKE 1 [facility] CHLORIDE 10 1-03 TABLET BY ity of mEq CR 00:00: MOUTH [place] tablet 00 DAILY WITH Medical A GLASS OF Branch WATER Insulin 2022-0 Yes [id number] USE [facility] [place], 1-03 DIRECTED ity of Disposable, 00:00: [place] (SURE 00 Medical COMFORT PEN Branch NEEDLE) 32 gauge x 5/32" Ndle POTASSIUM 2022-0 Yes [id number] TAKE 1 [facility] CHLORIDE 10 1-03 TABLET BY ity of mEq CR 00:00: MOUTH [place] tablet 00 DAILY WITH Medical A GLASS OF Branch WATER Insulin 2022-0 Yes [id number] USE [facility] [place], 1-03 DIRECTED ity of Disposable, 00:00: [place] (SURE 00 Medical COMFORT PEN Branch NEEDLE) 32 gauge x 5/32" Ndle POTASSIUM 2022-0 Yes [id number] TAKE 1 [facility] CHLORIDE 10 1-03 TABLET BY ity of mEq CR 00:00: MOUTH [place] tablet 00 DAILY WITH Medical A GLASS OF Branch WATER Insulin 2022-0 Yes [id number] USE [facility] [place], 1- DIRECTED ity of Disposable, 00:00: [place] (SURE Medical COMFORT PEN Branch NEEDLE) 32 gauge x 5/32" Ndle POTASSIUM 2022-0 Yes [id number] TAKE 1 [facility] CHLORIDE 10 1-03 TABLET BY ity of mEq CR 00:00: MOUTH [place] tablet 00 DAILY WITH Medical A GLASS OF Branch WATER Insulin 2022-0 Yes [id number] USE [facility] [place], 1- DIRECTED ity of Disposable, 00:00: [place] (SURE Medical COMFORT PEN Branch NEEDLE) 32 gauge x 5/32" Ndle POTASSIUM 2022-0 Yes [id number] TAKE 1 [facility] CHLORIDE 10 1-03 TABLET BY ity of mEq CR 00:00: MOUTH [place] tablet 00 DAILY WITH Medical A GLASS OF Branch WATER Insulin 2022-0 Yes [id number] USE [facility] [place], 1- DIRECTED ity of Disposable, 00:00: [place] (SURE Medical COMFORT PEN Branch NEEDLE) 32 gauge x 5/32" Ndle POTASSIUM 2022-0 Yes [id number] TAKE 1 [facility] CHLORIDE 10 1-03 TABLET BY ity of mEq CR 00:00: MOUTH [place] tablet 00 DAILY WITH Medical A GLASS OF Branch WATER Insulin 2022-0 Yes [id number] USE [facility] [place], 1- DIRECTED ity of Disposable, 00:00: [place] (SURE Medical COMFORT PEN Branch NEEDLE) 32 gauge x 5/32" Ndle POTASSIUM 2022-0 Yes [id number] TAKE 1 [facility] CHLORIDE 10 1-03 TABLET BY ity of mEq CR 00:00: MOUTH [place] tablet 00 DAILY WITH Medical A GLASS OF Branch WATER Insulin 2022-0 Yes [id number] USE [facility] [place], 1-03 DIRECTED ity of Disposable, 00:00: [place] (SURE Medical COMFORT PEN Branch NEEDLE) 32 gauge x 5/32" Ndle POTASSIUM 2022-0 Yes [id number] TAKE 1 [facility] CHLORIDE 10 1-03 TABLET BY ity of mEq CR 00:00: MOUTH [place] tablet 00 DAILY WITH Medical A GLASS OF Branch WATER Insulin 2022-0 Yes [id number] USE [facility] [place], 1-03 DIRECTED ity of Disposable, 00:00: [place] (SURE Medical COMFORT PEN Branch NEEDLE) 32 gauge x 5/32" N[place] POTASSIUM 2022-0 Yes [id number] TAKE 1 [facility] CHLORIDE 10 1-03 TABLET BY ity of mEq CR 00:00: MOUTH [place] tablet 00 DAILY WITH Medical A GLASS OF Branch WATER Insulin 2022-0 Yes [id number] USE [facility] [place], 1-03 DIRECTED ity of Disposable, 00:00: [place] (SURE Medical COMFORT PEN Branch NEEDLE) 32 gauge x 5/32" Ndle POTASSIUM 2022-0 Yes [id number] TAKE 1 [facility] CHLORIDE 10 1-03 TABLET BY ity of mEq CR 00:00: MOUTH [place] tablet 00 DAILY WITH Medical A GLASS OF Branch WATER Insulin 2022-0 Yes [id number] USE [facility] [place], 1- DIRECTED ity of Disposable, 00:00: [place] (SURE Medical COMFORT PEN Branch NEEDLE) 32 gauge x 5/32" Ndle POTASSIUM 2022-0 Yes [id number] TAKE 1 [facility] CHLORIDE 10 1-03 TABLET BY ity of mEq CR 00:00: MOUTH [place] tablet 00 DAILY WITH Medical A GLASS OF Branch WATER Insulin 2022-0 Yes [id number] USE [facility] [place], 1-03 DIRECTED ity of Disposable, 00:00: [place] (SURE Medical COMFORT PEN Branch NEEDLE) 32 gauge x 5/32" Ndle POTASSIUM 2022-0 Yes [id number] TAKE 1 [facility] CHLORIDE 10 1-03 TABLET BY ity of mEq CR 00:00: MOUTH [place] tablet 00 DAILY WITH Medical A GLASS OF Branch WATER Insulin 2022-0 Yes [id number] USE [facility] [place], 1-03 DIRECTED ity of Disposable, 00:00: [place] (SURE Medical COMFORT PEN Branch NEEDLE) 32 gauge x 5/32" Ndle POTASSIUM 2022-0 Yes [id number] TAKE 1 [facility] CHLORIDE 10 1-03 TABLET BY ity of mEq CR 00:00: MOUTH [place] tablet 00 DAILY WITH Medical A GLASS OF Branch WATER Insulin 2022-0 Yes [id number] USE [facility] [place], 1-03 DIRECTED ity of Disposable, 00:00: [place] (SURE Medical COMFORT PEN Branch NEEDLE) 32 gauge x 5/32" Ndle POTASSIUM 3-0 Yes [id number] TAKE 1 [facility] CHLORIDE 10 1-03 TABLET BY ity of mEq CR 00:00: MOUTH [place] tablet 00 DAILY WITH Medical A GLASS OF Branch WATER Insulin 2022-0 Yes [id number] USE [facility] [place], 1-03 DIRECTED ity of Disposable, 00:00: [place] (SURE Medical COMFORT PEN Branch NEEDLE) 32 gauge x 5/32" Ndle POTASSIUM 2022-0 Yes [id number] TAKE 1 [facility] CHLORIDE 10 1-03 TABLET BY ity of mEq CR 00:00: MOUTH [place] tablet 00 DAILY WITH Medical A GLASS OF Branch WATER Insulin 2022-0 Yes [id number] USE [facility] [place], 1- DIRECTED ity of Disposable, 00:00: [place] (SURE Medical COMFORT PEN Branch NEEDLE) 32 gauge x 5/32" Ndle POTASSIUM 2022-0 Yes [id number] TAKE 1 [facility] CHLORIDE 10 1-03 TABLET BY ity of mEq CR 00:00: MOUTH [place] tablet 00 DAILY WITH Medical A GLASS OF Branch WATER Insulin 2022-0 Yes [id number] USE [facility] [place], 1-03 DIRECTED ity of Disposable, 00:00: [place] (SURE Medical COMFORT PEN Branch NEEDLE) 32 gauge x 5/32" Ndle POTASSIUM 2022-0 Yes [id number] TAKE 1 [facility] CHLORIDE 10 1-03 TABLET BY ity of mEq CR 00:00: MOUTH [place] tablet 00 DAILY WITH Medical A GLASS OF Branch WATER Insulin 2022-0 Yes [id number] USE [facility] [place], 1-03 DIRECTED ity of Disposable, 00:00: [place] (SURE Medical COMFORT PEN Branch NEEDLE) 32 gauge x 5/32" Ndle POTASSIUM 2022-0 Yes [id number] TAKE 1 [facility] CHLORIDE 10 1-03 TABLET BY ity of mEq CR 00:00: MOUTH [place] tablet 00 DAILY WITH Medical A GLASS OF Branch WATER Insulin 2022-0 Yes [id number] USE [facility] [place], 1-03 DIRECTED ity of Disposable, 00:00: [place] (SURE Medical COMFORT PEN Branch NEEDLE) 32 gauge x 5/32" Ndle Insulin 3-0 Yes [id number] USE [facility] [place], 1-03 DIRECTED ity of Disposable, 00:00: [place] (SURE 00 Medical COMFORT PEN Branch NEEDLE) 32 gauge x 5/32" Ndle Insulin 2023-0 Yes [id number] USE [facility] [place], - DIRECTED ity of Disposable, 00:00: [place] (SURE 00 Medical COMFORT PEN Branch NEEDLE) 32 gauge x 5/32" Ndle Insulin 2023-0 Yes [id number] USE [facility] [place], 03-25 DIRECTED ity of Disposable, 00:00: [place] (SURE 00 Medical COMFORT PEN Branch NEEDLE) 32 gauge x 5/32" Ndle Insulin 2023-0 Yes [id number] USE [facility] [place], 03-25 DIRECTED ity of Disposable, 00:00: [place] (SURE 00 Medical COMFORT PEN Branch NEEDLE) 32 gauge x 5/32" Ndle Insulin 2023-0 Yes [id number] USE [facility] [place], 03-25 DIRECTED ity of Disposable, 00:00: [place] (SURE 00 Medical COMFORT PEN Branch NEEDLE) 32 gauge x 5/32" Ndle Insulin 2023-0 Yes [id number] USE [facility] [place], 03-25 DIRECTED ity of Disposable, 00:00: [place] (SURE 00 Medical COMFORT PEN Branch NEEDLE) 32 gauge x 5/32" Ndle Insulin 2023-0 Yes [id number] USE [facility] [place], 03-25 DIRECTED ity of Disposable, 00:00: [place] (SURE 00 Medical COMFORT PEN Branch NEEDLE) 32 gauge x 5/32" Ndle Insulin 2023-0 Yes [id number] USE [facility] [place], 03-25 DIRECTED ity of Disposable, 00:00: [place] (SURE 00 Medical COMFORT PEN Branch NEEDLE) 32 gauge x 5/32" Ndle Insulin 2023-0 Yes [id number] USE [facility] [place], 03-25 DIRECTED ity of Disposable, 00:00: [place] (SURE 00 Medical COMFORT PEN Branch NEEDLE) 32 gauge x 5/32" Ndle Insulin 2023-0 Yes [id number] USE [facility] [place], 03-25 DIRECTED ity of Disposable, 00:00: [place] (SURE 00 Medical COMFORT PEN Branch NEEDLE) 32 gauge x 5/32" Ndle Insulin 2023-0 Yes [id number] USE [facility] [place], 03-25 DIRECTED ity of Disposable, 00:00: [place] (SURE 00 Medical COMFORT PEN Branch NEEDLE) 32 gauge x 5/32" Ndle Insulin 2023-0 Yes [id number] USE [facility] [place], 03-25 DIRECTED ity of Disposable, 00:00: [place] (SURE 00 Medical COMFORT PEN Branch NEEDLE) 32 gauge x 5/32" Ndle Insulin 2022-0 Yes [id number] USE [facility] [place], 03-25 DIRECTED ity of Disposable, 00:00: [place] (SURE 00 Medical COMFORT PEN Branch NEEDLE) 32 gauge x 5/32" Ndle Insulin 2023-0 Yes [id number] USE [facility] [place], 03-25 DIRECTED ity of Disposable, 00:00: [place] (SURE 00 Medical COMFORT PEN Branch NEEDLE) 32 gauge x 5/32" Ndle Insulin 2022-0 Yes [id number] USE [facility] [place], 03-25 DIRECTED ity of Disposable, 00:00: [place] (SURE 00 Medical COMFORT PEN Branch NEEDLE) 32 gauge x 5/32" Ndle Insulin 2022-0 Yes [id number] USE [facility] [place], 03-25 DIRECTED ity of Disposable, 00:00: [place] (SURE 00 Medical COMFORT PEN Branch NEEDLE) 32 gauge x 5/32" Ndle Insulin 2022-0 Yes [id number] USE [facility] [place], 03-25 DIRECTED ity of Disposable, 00:00: [place] (SURE 00 Medical COMFORT PEN Branch NEEDLE) 32 gauge x 5/32" Ndle Insulin 3-0 Yes [id number] USE [facility] [place], 03-25 DIRECTED ity of Disposable, 00:00: [place] (SURE 00 Medical COMFORT PEN Branch NEEDLE) 32 gauge x 5/32" Ndle Insulin 2023-0 Yes [id number] USE [facility] [place], 03-25 DIRECTED ity of Disposable, 00:00: [place] (SURE 00 Medical COMFORT PEN Branch NEEDLE) 32 gauge x 5/32" Ndle Insulin 2023-0 Yes [id number] USE [facility] [place], 03-25 DIRECTED ity of Disposable, 00:00: [place] (SURE 00 Medical COMFORT PEN Branch NEEDLE) 32 gauge x 5/32" Ndle Insulin 2023-0 Yes [id number] USE [facility] [place], 03-25 DIRECTED ity of Disposable, 00:00: [place] (SURE 00 Medical COMFORT PEN Branch NEEDLE) 32 gauge x 5/32" Ndle Insulin 2023-0 Yes [id number] USE [facility] [place], 03-25 DIRECTED ity of Disposable, 00:00: [place] (SURE 00 Medical COMFORT PEN Branch NEEDLE) 32 gauge x 5/32" Ndle Insulin 2023-0 Yes [id number] USE [facility] [place], 03-25 DIRECTED ity of Disposable, 00:00: [place] (SURE 00 Medical COMFORT PEN Branch NEEDLE) 32 gauge x 5/32" Ndle Insulin 2023-0 Yes [id number] USE [facility] [place], 03-25 DIRECTED ity of Disposable, 00:00: [place] (SURE 00 Medical COMFORT PEN Branch NEEDLE) 32 gauge x 5/32" Ndle Insulin 2023-0 Yes [id number] USE [facility] [place], 03-25 DIRECTED ity of Disposable, 00:00: [place] (SURE 00 Medical COMFORT PEN Branch NEEDLE) 32 gauge x 5/32" Ndle Insulin 2023-0 Yes [id number] USE [facility] [place], 03-25 DIRECTED ity of Disposable, 00:00: [place] (SURE 00 Medical COMFORT PEN Branch NEEDLE) 32 gauge x 5/32" Ndle Insulin 2023-0 Yes [id number] USE [facility] [place], 03-25 DIRECTED ity of Disposable, 00:00: [place] (SURE 00 Medical COMFORT PEN Branch NEEDLE) 32 gauge x 5/32" Ndle Insulin 2023-0 Yes [id number] USE [facility] [place], 03-25 DIRECTED ity of Disposable, 00:00: [place] (SURE 00 Medical COMFORT PEN Branch NEEDLE) 32 gauge x 5/32" Ndle Insulin 2023-0 Yes [id number] USE [facility] [place], 03-25 DIRECTED ity of Disposable, 00:00: [place] (SURE 00 Medical COMFORT PEN Branch NEEDLE) 32 gauge x 5/32" Ndle Insulin 2023-0 Yes [id number] USE [facility] [place], 03-25 DIRECTED ity of Disposable, 00:00: [place] (SURE 00 Medical COMFORT PEN Branch NEEDLE) 32 gauge x 5/32" Ndle Insulin 2023-0 Yes [id number] USE [facility] [place], 03-25 DIRECTED ity of Disposable, 00:00: [place] (SURE 00 Medical COMFORT PEN Branch NEEDLE) 32 gauge x 5/32" Ndle Insulin 2023-0 Yes [id number] USE [facility] [place], 03-25 DIRECTED ity of Disposable, 00:00: [place] (SURE 00 Medical COMFORT PEN Branch NEEDLE) 32 gauge x 5/32" Ndle Insulin 2023-0 Yes [id number] USE [facility] [place], 03-25 DIRECTED ity of Disposable, 00:00: (SURE 00 Medical COMFORT PEN Branch NEEDLE) 32 gauge x 5/32" Ndle Insulin 0 Yes [id number] USE [facility] [place], 03-25 DIRECTED ity of Disposable, 00:00: [place] (SURE 00 Medical COMFORT PEN Branch NEEDLE) 32 gauge x 5/32" Ndle Insulin 0 Yes [id number] USE [facility] [place], 03-25 DIRECTED ity of Disposable, 00:00: [place] (SURE 00 Medical COMFORT PEN Branch NEEDLE) 32 gauge x 5/32" Ndle Insulin 0 2022- No [id number] USE [facility] [place], 03-25 DIRECTED ity of Disposable, 00:00: 00:00 [place] (SURE 00 :00 Medical COMFORT PEN Branch NEEDLE) 32 gauge x 5/32" Ndle POTASSIUM 0 2022- No [id number] TAKE 1 U [facility] CHLORIDE 10 03-25 02-10 TABLET BY it y of mEq CR 00:00: 00:00 MOUTH [place] tablet 00 :00 DAILY WITH Medical A GLASS OF Branch WATER VICTOZA 2021-03 Yes [id number] INJECT 1.8 [facility] 3-SOILA 0.6 2-30 MG UNDER ity of mg/0.1 mL 00:00: THE [place]IN [place] (18 mg/3 00 IN THE Medical mL) MORNING Branch injection VICTOZA 2021-03 Yes [id number] INJECT 1.8 [facility] 3-SOILA 0.6 2-30 MG UNDER ity of mg/0.1 mL 00:00: THE [place]IN [place] (18 mg/3 00 IN THE Medical mL) MORNING Branch injection VICTOZA 2021-03 Yes [id number] INJECT 1.8 [facility] 3-SOILA 0.6 2-30 MG UNDER ity of mg/0.1 mL 00:00: THE [place]IN [place] (18 mg/3 00 IN THE Medical mL) MORNING Branch injection VICTOZA 2021-03 Yes [id number] INJECT 1.8 [facility] 3-SOILA 0.6 2-30 MG UNDER ity of mg/0.1 mL 00:00: THE [place]IN [place] (18 mg/3 00 IN THE Medical mL) MORNING Branch injection VICTOZA 2021-03 Yes [id number] INJECT 1.8 [facility] 3-SOILA 0.6 2-30 MG UNDER ity of mg/0.1 mL 00:00: THE [place]IN [place] (18 mg/3 00 IN THE Medical mL) MORNING Branch injection VICTOZA 2021-03 Yes [id number] INJECT 1.8 [facility] 3-SOILA 0.6 2-30 MG UNDER ity of mg/0.1 mL 00:00: THE [place]IN [place] (18 mg/3 00 IN THE Medical mL) MORNING Branch injection VICTOZA 2021-03 Yes [id number] INJECT 1.8 [facility] 3-SOILA 0.6 2-30 MG UNDER ity of mg/0.1 mL 00:00: THE [place]IN [place] (18 mg/3 00 IN THE Medical mL) MORNING Branch injection VICTOZA 2021-03 Yes [id number] INJECT 1.8 [facility] 3-SOILA 0.6 2-30 MG UNDER ity of mg/0.1 mL 00:00: THE [place]IN [place] (18 mg/3 00 IN THE Medical mL) MORNING Branch injection VICTOZA 2021-03 Yes [id number] INJECT 1.8 [facility] 3-SOILA 0.6 2-30 MG UNDER ity of mg/0.1 mL 00:00: THE [place]IN [place] (18 mg/3 00 IN THE Medical mL) MORNING Branch injection VICTOZA 2021-03 Yes [id number] INJECT 1.8 [facility] 3-SOILA 0.6 2-30 MG UNDER ity of mg/0.1 mL 00:00: THE [place]IN [place] (18 mg/3 00 IN THE Medical mL) MORNING Branch injection VICTOZA 2021-03 Yes [id number] INJECT 1.8 [facility] 3-SOILA 0.6 2-30 MG UNDER ity of mg/0.1 mL 00:00: THE [place]IN [place] (18 mg/3 00 IN THE Medical mL) MORNING Branch injection VICTOZA 2021-03 Yes [id number] INJECT 1.8 [facility] 3-SOILA 0.6 2-30 MG UNDER ity of mg/0.1 mL 00:00: THE [place]IN [place] (18 mg/3 00 IN THE Medical mL) MORNING Branch injection VICTOZA 2021-03 Yes [id number] INJECT 1.8 [facility] 3-SOILA 0.6 2-30 MG UNDER ity of mg/0.1 mL 00:00: THE [place]IN [place] (18 mg/3 00 IN THE Medical mL) MORNING Branch injection VICTOZA 2021-03 Yes [id number] INJECT 1.8 [facility] 3-SOILA 0.6 2-30 MG UNDER ity of mg/0.1 mL 00:00: THE [place]IN [place] (18 mg/3 00 IN THE Medical mL) MORNING Branch injection VICTOZA 2021-03 Yes [id number] INJECT 1.8 Univers 3-SOILA 0.6 2-30 MG UNDER ity of mg/0.1 mL 00:00: THE [place]IN [place] (18 mg/3 00 IN THE Medical mL) MORNING Branch injection VICTOZA 2021-03 Yes [id number] INJECT 1.8 [facility] 3-SOILA 0.6 2-30 MG UNDER ity of mg/0.1 mL 00:00: THE [place]IN [place] (18 mg/3 00 IN THE Medical mL) MORNING Branch injection VICTOZA 2021-03- No [id number] INJECT 1.8 Univers 3-SOILA 0.6 2-30 01-26 MG UNDER ity o f mg/0.1 mL 00:00: 00:00 THE SKIN [place] (18 mg/3 00 :00 IN THE Medical mL) MORNING Branch injection [facility] 2021-03 Yes [id number] INJECT 72 Un [facility] SOLOSTAR 2-27 UNITS ity of U-300 00:00: UNDER THE [place] INSULIN 300 00 SKIN ONCE Med ical unit/mL DAILY IN Branch (1.5 mL) THE InPn EVENING (ADJUSTING DOSE BY 2 UNITS DAILY UNTIL FASTING BLOOD SUGAR LESS THAN 200) [facility] 2021-03 Yes [id number] INJECT 72 Un [facility] SOLOSTAR 2-27 UNITS ity of U-300 00:00: UNDER THE [place] INSULIN 300 00 SKIN ONCE Med ical unit/mL DAILY IN Branch (1.5 mL) THE InPn EVENING (ADJUSTING DOSE BY 2 UNITS DAILY UNTIL FASTING BLOOD SUGAR LESS THAN 200) [facility] 2021-03 Yes [id number] INJECT 72 Un [facility] SOLOSTAR 2-27 UNITS ity of U-300 00:00: UNDER THE [place] INSULIN 300 00 SKIN ONCE Med ical unit/mL DAILY IN Branch (1.5 mL) THE InPn EVENING (ADJUSTING DOSE BY 2 UNITS DAILY UNTIL FASTING BLOOD SUGAR LESS THAN 200) [place] 2021-03 Yes [id number] INJECT 72 Un [facility] SOLOSTAR 2-27 UNITS ity of U-300 00:00: UNDER THE [place] INSULIN 300 00 SKIN ONCE Med ical unit/mL DAILY IN Branch (1.5 mL) THE InPn EVENING (ADJUSTING DOSE BY 2 UNITS DAILY UNTIL FASTING BLOOD SUGAR LESS THAN 200) [place] 2021-03 Yes [id number] INJECT 72 [facility] SOLOSTAR 2-27 UNITS ity of U-300 00:00: UNDER THE [place] INSULIN 300 00 SKIN ONCE Med ical unit/mL DAILY IN Branch (1.5 mL) THE InPn EVENING (ADJUSTING DOSE BY 2 UNITS DAILY UNTIL FASTING BLOOD SUGAR LESS THAN 200) [place] 2021-03 Yes [id number] INJECT 72 Un [facility] SOLOSTAR 2-27 UNITS ity of U-300 00:00: UNDER THE [place] INSULIN 300 00 SKIN ONCE Med ical unit/mL DAILY IN Branch (1.5 mL) THE InPn EVENING (ADJUSTING DOSE BY 2 UNITS DAILY UNTIL FASTING BLOOD SUGAR LESS THAN 200) [place] 2021-03 Yes [id number] INJECT 72 Un [facility] SOLOSTAR 2-27 UNITS ity of U-300 00:00: UNDER THE [place] INSULIN 300 00 SKIN ONCE Med ical unit/mL DAILY IN Branch (1.5 mL) THE InPn EVENING (ADJUSTING DOSE BY 2 UNITS DAILY UNTIL FASTING BLOOD SUGAR LESS THAN 200) [place] 2021-03 Yes [id number] INJECT 72 Un [facility] SOLOSTAR 2-27 UNITS ity of U-300 00:00: UNDER THE [place] INSULIN 300 00 SKIN ONCE Med ical unit/mL DAILY IN Branch (1.5 mL) THE InPn EVENING (ADJUSTING DOSE BY 2 UNITS DAILY UNTIL FASTING BLOOD SUGAR LESS THAN 200) [place] 2021-03 Yes [id number] INJECT 72 Un [facility] SOLOSTAR 2-27 UNITS ity of U-300 00:00: UNDER THE [place] INSULIN 300 00 SKIN ONCE Med ical unit/mL DAILY IN Branch (1.5 mL) THE InPn EVENING (ADJUSTING DOSE BY 2 UNITS DAILY UNTIL FASTING BLOOD SUGAR LESS THAN 200) [place] 2021-03 Yes [id number] INJECT 72 [facility] SOLOSTAR 2-27 UNITS ity of U-300 00:00: UNDER THE [place] INSULIN 300 00 SKIN ONCE Med ical unit/mL DAILY IN Branch (1.5 mL) THE InPn EVENING (ADJUSTING DOSE BY 2 UNITS DAILY UNTIL FASTING BLOOD SUGAR LESS THAN 200) [place] 2021-03 Yes [id number] INJECT 72 Un [facility] SOLOSTAR 2-27 UNITS ity of U-300 00:00: UNDER THE [place] INSULIN 300 00 SKIN ONCE Med ical unit/mL DAILY IN Branch (1.5 mL) THE InPn EVENING (ADJUSTING DOSE BY 2 UNITS DAILY UNTIL FASTING BLOOD SUGAR LESS THAN 200) [place] 2021-03 Yes [id number] INJECT 72 Un [facility] SOLOSTAR 2-27 UNITS ity of U-300 00:00: UNDER THE [place] INSULIN 300 00 SKIN ONCE Med ical unit/mL DAILY IN Branch (1.5 mL) THE InPn EVENING (ADJUSTING DOSE BY 2 UNITS DAILY UNTIL FASTING BLOOD SUGAR LESS THAN 200) [place] 2021-03 Yes [id number] INJECT 72 Un [facility] SOLOSTAR 2-27 UNITS ity of U-300 00:00: UNDER THE [place] INSULIN 300 00 SKIN ONCE Med ical unit/mL DAILY IN Branch (1.5 mL) THE InPn EVENING (ADJUSTING DOSE BY 2 UNITS DAILY UNTIL FASTING BLOOD SUGAR LESS THAN 200) [place] 2021-03 Yes [id number] INJECT 72 Un [facility] SOLOSTAR 2-27 UNITS ity of U-300 00:00: UNDER THE [place] INSULIN 300 00 SKIN ONCE Med ical unit/mL DAILY IN Branch (1.5 mL) THE InPn EVENING (ADJUSTING DOSE BY 2 UNITS DAILY UNTIL FASTING BLOOD SUGAR LESS THAN 200) [place] 2021-03 Yes [id number] INJECT 72 Un [facility] SOLOSTAR 2-27 UNITS ity of U-300 00:00: UNDER THE [place] INSULIN 300 00 SKIN ONCE Med ical unit/mL DAILY IN Branch (1.5 mL) THE InPn EVENING (ADJUSTING DOSE BY 2 UNITS DAILY UNTIL FASTING BLOOD SUGAR LESS THAN 200) [place] 2021-03 Yes [id number] INJECT 72 Un [facility] SOLOSTAR 2-27 UNITS ity of U-300 00:00: UNDER THE [place] INSULIN 300 00 SKIN ONCE Med ical unit/mL DAILY IN Branch (1.5 mL) THE InPn EVENING (ADJUSTING DOSE BY 2 UNITS DAILY UNTIL FASTING BLOOD SUGAR LESS THAN 200) [facility] 2021-03 Yes [id number] INJECT 72 Un rein[facility] SOLOSTAR 2-27 UNITS ity of U-300 00:00: UNDER THE [place] INSULIN 300 00 SKIN ONCE Med ical unit/mL DAILY IN Branch (1.5 mL) THE InPn EVENING (ADJUSTING DOSE BY 2 UNITS DAILY UNTIL FASTING BLOOD SUGAR LESS THAN 200) [facility] 2021-03 Yes [id number] INJECT 72 Un [facility] SOLOSTAR 2-27 UNITS ity of U-300 00:00: UNDER THE [place] INSULIN 300 00 SKIN ONCE Med ical unit/mL DAILY IN Branch (1.5 mL) THE InPn EVENING (ADJUSTING DOSE BY 2 UNITS DAILY UNTIL FASTING BLOOD SUGAR LESS THAN 200) [facility] 2021-03 No [id number] INJECT 72 U nivers SOLOSTAR 2-27 01-26 UNITS ity of U-300 00:00: 00:00 UNDER THE [place] INSULIN 300 00 :00 SKIN ONCE Med ical unit/mL DAILY IN Branch (1.5 mL) THE InPn EVENING (ADJUSTING DOSE BY 2 UNITS DAILY UNTIL FASTING BLOOD SUGAR LESS THAN 200) SULFAMETHOX 2021-03 Yes [id number] TAKE 1 [facility] AZOLE-TRIME 2-23 TABLET BY ity of THOPRIM 00:00: MOUTH 2 [place] 800-160 mg 00 TIMES Medical per tablet DAILY WITH Bra pah A GLASS OF WATER LEVETIRACET 2021-03 Yes [id number] TAKE 1 [facility] AM 1,000 mg 2-23 TABLET BY ity of tablet 00:00: MOUTH 2 [place] 00 TIMES Medical DAILY Branch LATUDA 40 2021-03 Yes [id number] TAKE 1 U nivers mg tablet 2-23 TABLET BY ity o f 00:00: MOUTH AT [place] 00 BEDTIME Medical Branch HYDROXYZINE 2021-03 Yes [id number] TAKE 1 [facility] 50 mg 2-23 TABLET BY ity of tablet 00:00: MOUTH 3 [place] 00 TIMES Medical DAILY Branch NEEDED FOR ITCHING OR ANXIETY. *MAY IMPAIR ALERTNESS* * PANTOPRAZOL 2021-03 Yes TAKE 1 Univ ers E 40 mg EC 2-23 TABLET BY ity of tablet 00:00: MOUTH ONCE [place] 00 DAILY Medical BEFORE A Branch MEAL CLOPIDOGREL 2021-03 Yes [id number] TAKE 1 [facility] 75 mg 2-23 TABLET BY ity of tablet 00:00: MOUTH [place] 00 EVERY DAY Medical Branch METFORMIN 2021-03 Yes [id number] TAKE 2 Un reinier ER 500 mg 2-23 TABLETS BY ity of 24 hr 00:00: MOUTH 2 [place] tablet 00 TIMES Medical DAILY WITH Branch FOOD IBUPROFEN 2021-03 Yes [id number] TAKE 1 U nivers 800 mg 2-23 TABLET BY ity of tablet 00:00: MOUTH [place] 00 EVERY 6 Medical HOURS WITH Branch FOOD NEEDED FOR PAIN *DO NOT TAKE ASPIRIN* SULFAMETHOX 2021-03 Yes [id number] TAKE 1 [facility] AZOLE-TRIME 2-23 TABLET BY ity of THOPRIM 00:00: MOUTH 2 [place] 800-160 mg 00 TIMES Medical per tablet DAILY WITH Bra [place] A GLASS OF WATER LEVETIRACET 2021-03 Yes [id number] TAKE 1 [facility] AM 1,000 mg 2-23 TABLET BY ity of tablet 00:00: MOUTH 2 [place] 00 TIMES Medical DAILY Branch LATUDA 40 2021-03 Yes [id number] TAKE 1 U nivers mg tablet 2-23 TABLET BY ity o f 00:00: MOUTH AT [place] 00 BEDTIME Medical Branch HYDROXYZINE 2021-03 Yes [id number] TAKE 1 [facility] 50 mg 2-23 TABLET BY ity of tablet 00:00: MOUTH 3 [place] 00 TIMES Medical DAILY Branch NEEDED FOR ITCHING OR ANXIETY. *MAY IMPAIR ALERTNESS* * PANTOPRAZOL 2021-03 Yes TAKE 1 Univ ers E 40 mg EC 2-23 TABLET BY ity of tablet 00:00: MOUTH ONCE [place] 00 DAILY Medical BEFORE A Branch MEAL CLOPIDOGREL 2021-03 Yes [id number] TAKE 1 [facility] 75 mg 2-23 TABLET BY ity of tablet 00:00: MOUTH [place] 00 EVERY DAY Medical Branch METFORMIN 2021-03 Yes [id number] TAKE 2 Un reinier ER 500 mg 2-23 TABLETS BY ity of 24 hr 00:00: MOUTH 2 [place] tablet 00 TIMES Medical DAILY WITH Branch FOOD IBUPROFEN 2021-03 Yes [id number] TAKE 1 U nivers 800 mg 2-23 TABLET BY ity of tablet 00:00: MOUTH [place] 00 EVERY 6 Medical HOURS WITH Branch FOOD NEEDED FOR PAIN *DO NOT TAKE ASPIRIN* SULFAMETHOX 2021-03 Yes [id number] TAKE 1 Univers AZOLE-TRIME 2-23 TABLET BY ity of THOPRIM 00:00: MOUTH 2 [place] 800-160 mg 00 TIMES Medical per tablet DAILY WITH Bra [facility] A GLASS OF WATER LEVETIRACET 2021-03 Yes [id number] TAKE 1 Univers AM 1,000 mg 2-23 TABLET BY ity of tablet 00:00: MOUTH 2 [place] 00 TIMES Medical DAILY Branch LATUDA 40 2021-03 Yes [id number] TAKE 1 U nivers mg tablet 2-23 TABLET BY ity o f 00:00: MOUTH AT [place] 00 BEDTIME Medical Branch HYDROXYZINE 2021-03 Yes [id number] TAKE 1 [facility] 50 mg 2-23 TABLET BY ity of tablet 00:00: MOUTH 3 [place] 00 TIMES Medical DAILY Branch NEEDED FOR ITCHING OR ANXIETY. *MAY IMPAIR ALERTNESS* * PANTOPRAZOL 2021-03 Yes TAKE 1 Univ ers E 40 mg EC 2-23 TABLET BY ity of tablet 00:00: MOUTH ONCE [place] 00 DAILY Medical BEFORE A Branch MEAL CLOPIDOGREL 2021-03 Yes [id number] TAKE 1 [facility] 75 mg 2-23 TABLET BY ity of tablet 00:00: MOUTH [place] 00 EVERY DAY Medical Branch METFORMIN 2021-03 Yes [id number] TAKE 2 Un [facility] ER 500 mg 2-23 TABLETS BY ity of 24 hr 00:00: MOUTH 2 [place] tablet 00 TIMES Medical DAILY WITH Branch FOOD IBUPROFEN 2021-03 Yes [id number] TAKE 1 U nivers 800 mg 2-23 TABLET BY ity of tablet 00:00: MOUTH [place] 00 EVERY 6 Medical HOURS WITH Branch FOOD NEEDED FOR PAIN *DO NOT TAKE ASPIRIN* SULFAMETHOX 2021-03 Yes [id number] TAKE 1 Univers AZOLE-TRIME 2-23 TABLET BY ity of THOPRIM 00:00: MOUTH 2 [place] 800-160 mg 00 TIMES Medical per tablet DAILY WITH Bra [facility] A GLASS OF WATER LEVETIRACET 2021-03 Yes [id number] TAKE 1 [facility] AM 1,000 mg 2-23 TABLET BY ity of tablet 00:00: MOUTH 2 [place] 00 TIMES Medical DAILY Branch LATUDA 40 2021-03 Yes [id number] TAKE 1 U nivers mg tablet 2-23 TABLET BY ity o f 00:00: MOUTH AT [place] 00 BEDTIME Medical Branch HYDROXYZINE 2021-03 Yes [id number] TAKE 1 [facility] 50 mg 2-23 TABLET BY ity of tablet 00:00: MOUTH 3 [place] 00 TIMES Medical DAILY Branch NEEDED FOR ITCHING OR ANXIETY. *MAY IMPAIR ALERTNESS* * PANTOPRAZOL 2021-03 Yes TAKE 1 Univ ers E 40 mg EC 2-23 TABLET BY ity of tablet 00:00: MOUTH ONCE [place] 00 DAILY Medical BEFORE A Branch MEAL CLOPIDOGREL 2021-03 Yes [id number] TAKE 1 [facility] 75 mg 2-23 TABLET BY ity of tablet 00:00: MOUTH [place] 00 EVERY DAY Medical Branch METFORMIN 2021-03 Yes [id number] TAKE 2 [facility] 500 mg 2-23 TABLETS BY [facility] of 24 hr 00:00: MOUTH 2 [place] tablet 00 TIMES Medical DAILY WITH Branch FOOD IBUPROFEN 2021-03 Yes [id number] TAKE 1 [facility] 800 mg 2-23 TABLET BY [facility] of tablet 00:00: MOUTH [place] 00 EVERY 6 Medical HOURS WITH Branch FOOD NEEDED FOR PAIN *DO NOT TAKE ASPIRIN* SULFAMETHOX 2021-03 Yes [id number] TAKE 1 [facility] AZOLE-TRIME 2-23 TABLET BY ity of THOPRIM 00:00: MOUTH 2 [place] 800-160 mg 00 TIMES Medical per tablet DAILY WITH Bra nch A GLASS OF WATER LEVETIRACET 2021-03 Yes [id number] TAKE 1 [facility] AM 1,000 mg 2-23 TABLET BY ity of tablet 00:00: MOUTH 2 [place] 00 TIMES Medical DAILY Branch LATUDA 40 2021-03 Yes [id number] TAKE 1 [facility] mg tablet 2-23 TABLET BY ity o f 00:00: MOUTH AT [place] 00 BEDTIME Medical Branch HYDROXYZINE 2021-03 Yes [id number] TAKE 1 [facility] 50 mg 2-23 TABLET BY [facility] of tablet 00:00: MOUTH 3 [place] 00 TIMES Medical DAILY Branch NEEDED FOR ITCHING OR ANXIETY. *MAY IMPAIR ALERTNESS* * PANTOPRAZOL 2021-03 Yes TAKE 1 [facility] E 40 mg EC 2-23 TABLET BY [facility] of tablet 00:00: MOUTH ONCE [place] 00 DAILY Medical BEFORE A Branch MEAL CLOPIDOGREL 2021-03 Yes [id number] TAKE 1 [facility] 75 mg 2-23 TABLET BY [facility] of tablet 00:00: MOUTH [place] 00 EVERY DAY Medical Branch METFORMIN 2021-03 Yes [id number] TAKE 2 [facility] 500 mg 2-23 TABLETS BY [facility] of 24 hr 00:00: MOUTH 2 [place] tablet 00 TIMES Medical DAILY WITH Branch FOOD IBUPROFEN 2021-03 Yes [id number] TAKE 1 [facility] 800 mg 2-23 TABLET BY [facility]y of tablet 00:00: MOUTH [place] 00 EVERY 6 Medical HOURS WITH Branch FOOD NEEDED FOR PAIN *DO NOT TAKE ASPIRIN* SULFAMETHOX 2021-03 Yes [id number] TAKE 1 [facility] AZOLE-TRIME 2-23 TABLET BY ity of THOPRIM 00:00: MOUTH 2 [place] 800-160 mg 00 TIMES Medical per tablet DAILY WITH Bra [facility] A GLASS OF WATER LEVETIRACET 2021-03 Yes [id number] TAKE 1 [facility] AM 1,000 mg 2-23 TABLET BY [facility] of tablet 00:00: MOUTH 2 [place] 00 TIMES Medical DAILY Branch LATUDA 40 2021-03 Yes [id number] TAKE 1 [facility] n[facility] mg tablet 2-23 TABLET BY ity o f 00:00: MOUTH AT [place] 00 BEDTIME Medical Branch HYDROXYZINE 2021-03 Yes [id number] TAKE 1 [facility] 50 mg 2-23 TABLET BY [facility] of tablet 00:00: MOUTH 3 [place] 00 TIMES Medical DAILY Branch NEEDED FOR ITCHING OR ANXIETY. *MAY IMPAIR ALERTNESS* * PANTOPRAZOL 2021-03 Yes TAKE 1 [facility] E 40 mg EC 2-23 TABLET BY [facility] of tablet 00:00: MOUTH ONCE [place] 00 DAILY Medical BEFORE A Branch MEAL CLOPIDOGREL 2021-03 Yes [id number] TAKE 1 [facility] 75 mg 2-23 TABLET BY [facility] of tablet 00:00: MOUTH [place] 00 EVERY DAY Medical Branch METFORMIN 2021-03 Yes [id number] TAKE 2 [facility] reinier ER 500 mg 2-23 TABLETS BY it[facility] of 24 hr 00:00: MOUTH 2 [place] tablet 00 TIMES Medical DAILY WITH Branch FOOD IBUPROFEN 2021-03 Yes [id number] TAKE 1 [facility] 800 mg 2-23 TABLET BY [facility] of tablet 00:00: MOUTH [place] 00 EVERY 6 Medical HOURS WITH Branch FOOD NEEDED FOR PAIN *DO NOT TAKE ASPIRIN* SULFAMETHOX 2021-03 Yes [id number] TAKE 1 [facility] AZOLE-TRIME 2-23 TABLET BY [facility] of THOPRIM 00:00: MOUTH 2 [place] 800-160 mg 00 TIMES Medical per tablet DAILY WITH Bra n[facility] A GLASS OF WATER LEVETIRACET 2021-03 Yes [id number] TAKE 1 [facility] AM 1,000 mg 2-23 TABLET BY [facility] of tablet 00:00: MOUTH 2 [place] 00 TIMES Medical DAILY Branch LATUDA 40 2021-03 Yes [id number] TAKE 1 [facility] mg tablet 2-23 TABLET BY ity o f 00:00: MOUTH AT [place] 00 BEDTIME Medical Branch HYDROXYZINE 2021-03 Yes [id number] TAKE 1 [facility] 50 mg 2-23 TABLET BY [facility] of tablet 00:00: MOUTH 3 [place] 00 TIMES Medical DAILY Branch NEEDED FOR ITCHING OR ANXIETY. *MAY IMPAIR ALERTNESS* * PANTOPRAZOL 2021-03 Yes TAKE 1 [facility] E 40 mg EC 2-23 TABLET BY it[facility] of tablet 00:00: MOUTH ONCE [place] 00 DAILY Medical BEFORE A Branch MEAL CLOPIDOGREL 2021-03 Yes [id number] TAKE 1 [facility] 75 mg 2-23 TABLET BY it[facility] of tablet 00:00: MOUTH [place] 00 EVERY DAY Medical Branch METFORMIN 2021-03 Yes [id number] TAKE 2 [facility] ER 500 mg 2-23 TABLETS BY [facility] of 24 hr 00:00: MOUTH 2 [place] tablet 00 TIMES Medical DAILY WITH Branch FOOD IBUPROFEN 2021-03 Yes [id number] TAKE 1 [facility] 800 mg 2-23 TABLET BY [facility] of tablet 00:00: MOUTH [place] 00 EVERY 6 Medical HOURS WITH Branch FOOD NEEDED FOR PAIN *DO NOT TAKE ASPIRIN* SULFAMETHOX 2021-03 Yes [id number] TAKE 1 [facility] AZOLE-TRIME 2-23 TABLET BY [facility] of THOPRIM 00:00: MOUTH 2 [place] 800-160 mg 00 TIMES Medical per tablet DAILY WITH Bra pah A GLASS OF WATER LEVETIRACET 2021-03 Yes [id number] TAKE 1 [facility] AM 1,000 mg 2-23 TABLET BY [facility] of tablet 00:00: MOUTH 2 [place] 00 TIMES Medical DAILY Branch LATUDA 40 2021-03 Yes [id number] TAKE 1 [facility] mg tablet 2-23 TABLET BY ity o f 00:00: MOUTH AT [place] 00 BEDTIME Medical Branch HYDROXYZINE 2021-03 Yes [id number] TAKE 1 [facility] 50 mg 2-23 TABLET BY [facility] of tablet 00:00: MOUTH 3 [place] 00 TIMES Medical DAILY Branch NEEDED FOR ITCHING OR ANXIETY. *MAY IMPAIR ALERTNESS* * PANTOPRAZOL 2021-03 Yes TAKE 1 [facility] E 40 mg EC 2-23 TABLET BY it[facility] of tablet 00:00: MOUTH ONCE [place] 00 DAILY Medical BEFORE A Branch MEAL CLOPIDOGREL 2021-03 Yes [id number] TAKE 1 [facility] 75 mg 2-23 TABLET BY [facility] of tablet 00:00: MOUTH [place] 00 EVERY DAY Medical Branch METFORMIN 2021-03 Yes [id number] TAKE 2 [facility] ER 500 mg 2-23 TABLETS BY it[facility] of 24 hr 00:00: MOUTH 2 [place] tablet 00 TIMES Medical DAILY WITH Branch FOOD IBUPROFEN 2021-03 Yes [id number] TAKE 1 [facility] 800 mg 2-23 TABLET BY [facility] of tablet 00:00: MOUTH [place] 00 EVERY 6 Medical HOURS WITH Branch FOOD NEEDED FOR PAIN *DO NOT TAKE ASPIRIN* SULFAMETHOX 2021-03 Yes [id number] TAKE 1 [facility] AZOLE-TRIME 2-23 TABLET BY [facility] of [facility]RIM 00:00: MOUTH 2 [place] 800-160 mg 00 TIMES Medical per tablet DAILY WITH Bra p[facility] A GLASS OF WATER LEVETIRACET 2021-03 Yes [id number] TAKE 1 [facility] AM 1,000 mg 2-23 TABLET BY [facility] of tablet 00:00: MOUTH 2 [place] 00 TIMES Medical DAILY Branch LATUDA 40 2021-03 Yes [id number] TAKE 1 [facility] mg tablet 2-23 TABLET BY ity o f 00:00: MOUTH AT [place] 00 BEDTIME Medical Branch HYDROXYZINE 2021-03 Yes [id number] TAKE 1 [facility] 50 mg 2-23 TABLET BY [facility] of tablet 00:00: MOUTH 3 [place] 00 TIMES Medical DAILY Branch NEEDED FOR ITCHING OR ANXIETY. *MAY IMPAIR ALERTNESS* * PANTOPRAZOL 2021-03 Yes TAKE 1 [facility] E 40 mg EC 2-23 TABLET BY it[facility] of tablet 00:00: MOUTH ONCE [place] 00 DAILY Medical BEFORE A Branch MEAL CLOPIDOGREL 2021-03 Yes [id number] TAKE 1 [facility] 75 mg 2-23 TABLET BY [facility] of tablet 00:00: MOUTH [place] 00 EVERY DAY Medical Branch METFORMIN 2021-03 Yes [id number] TAKE 2 [facility] ER 500 mg 2-23 TABLETS BY it[facility] of 24 hr 00:00: MOUTH 2 [place] tablet 00 TIMES Medical DAILY WITH Branch FOOD IBUPROFEN 2021-03 Yes [id number] TAKE 1 [facility] 800 mg 2-23 TABLET BY [facility] of tablet 00:00: MOUTH [place] 00 EVERY 6 Medical HOURS WITH Branch FOOD NEEDED FOR PAIN *DO NOT TAKE ASPIRIN* SULFAMETHOX 2021-03 Yes [id number] TAKE 1 [facility] AZOLE-TRIME 2-23 TABLET BY it[facility] of TH[facility]RIM 00:00: MOUTH 2 [place] 800-160 mg 00 TIMES Medical per tablet DAILY WITH Bra [facility] A GLASS OF WATER LEVETIRACET 2021-03 Yes [id number] TAKE 1 [facility] AM 1,000 mg 2-23 TABLET BY ity of tablet 00:00: MOUTH 2 [place] 00 TIMES Medical DAILY Branch LATUDA 40 2021-03 Yes [id number] TAKE 1 [facility] n[facility] mg tablet 2-23 TABLET BY ity o f 00:00: MOUTH AT [place] 00 BEDTIME Medical Branch HYDROXYZINE 2021-03 Yes [id number] TAKE 1 [facility] 50 mg 2-23 TABLET BY ity of tablet 00:00: MOUTH 3 [place] 00 TIMES Medical DAILY Branch NEEDED FOR ITCHING OR ANXIETY. *MAY IMPAIR ALERTNESS* * PANTOPRAZOL 2021-03 Yes TAKE 1 [facility] E 40 mg EC 2-23 TABLET BY ity of tablet 00:00: MOUTH ONCE [place] 00 DAILY Medical BEFORE A Branch MEAL CLOPIDOGREL 2021-03 Yes [id number] TAKE 1 [facility] 75 mg 2-23 TABLET BY ity of tablet 00:00: MOUTH [place] 00 EVERY DAY Medical Branch METFORMIN 2021-03 Yes [id number] TAKE 2 [facility] ER 500 mg 2-23 TABLETS BY ity of 24 hr 00:00: MOUTH 2 [place] tablet 00 TIMES Medical DAILY WITH Branch FOOD IBUPROFEN 2021-03 Yes [id number] TAKE 1 [facility] 800 mg 2-23 TABLET BY ity of tablet 00:00: MOUTH [place] 00 EVERY 6 Medical HOURS WITH Branch FOOD NEEDED FOR PAIN *DO NOT TAKE ASPIRIN* SULFAMETHOX 2021-03 Yes [id number] TAKE 1 [facility] AZOLE-TRIME 2-23 TABLET BY ity of [facility]IM 00:00: MOUTH 2 [place] 800-160 mg 00 TIMES Medical per tablet DAILY WITH Bra [facility] A GLASS OF WATER LEVETIRACET 2021-03 Yes [id number] TAKE 1 [facility] AM 1,000 mg 2-23 TABLET BY ity of tablet 00:00: MOUTH 2 [place] 00 TIMES Medical DAILY Branch LATUDA 40 2021-03 Yes [id number] TAKE 1 [facility] mg tablet 2-23 TABLET BY ity o f 00:00: MOUTH AT [place] [address] BEDTIME Medical Branch HYDROXYZINE 2021-03 Yes [id number] TAKE 1 [facility] 50 mg 2-23 TABLET BY ity of tablet 00:00: MOUTH 3 [place] 00 TIMES Medical DAILY Branch NEEDED FOR ITCHING OR ANXIETY. *MAY IMPAIR ALERTNESS* * PANTOPRAZOL 2021-03 Yes TAKE 1 [facility] E 40 mg EC 2-23 TABLET BY ity of tablet 00:00: MOUTH ONCE [place] 00 DAILY Medical BEFORE A Branch MEAL CLOPIDOGREL 2021-03 Yes [id number] TAKE 1 [facility] 75 mg 2-23 TABLET BY ity of tablet 00:00: MOUTH [place] 00 EVERY DAY Medical Branch METFORMIN 2021-03 Yes [id number] TAKE 2 [facility] ER 500 mg 2-23 TABLETS BY ity of 24 hr 00:00: MOUTH 2 [place] tablet 00 TIMES Medical DAILY WITH Branch FOOD IBUPROFEN 2021-03 Yes [id number] TAKE 1 [facility] 800 mg 2-23 TABLET BY ity of tablet 00:00: MOUTH [place] 00 EVERY 6 Medical HOURS WITH Branch FOOD NEEDED FOR PAIN *DO NOT TAKE ASPIRIN* SULFAMETHOX 2021-03 Yes [id number] TAKE 1 [facility] AZOLE-TRIME 2-23 TABLET BY ity of TH[facility]RIM 00:00: MOUTH 2 [place] 800-160 mg 00 TIMES Medical per tablet DAILY WITH Bra pah A GLASS OF WATER LEVETIRACET 2021-03 Yes [id number] TAKE 1 [facility] AM 1,000 mg 2-23 TABLET BY ity of tablet 00:00: MOUTH 2 [place] 00 TIMES Medical DAILY Branch LATUDA 40 2021-03 Yes [id number] TAKE 1 [facility] mg tablet 2-23 TABLET BY ity o f 00:00: MOUTH AT [place] 00 BEDTIME Medical Branch HYDROXYZINE 2021-03 Yes [id number] TAKE 1 [facility] 50 mg 2-23 TABLET BY ity of tablet 00:00: MOUTH 3 [place] 00 TIMES Medical DAILY Branch NEEDED FOR ITCHING OR ANXIETY. *MAY IMPAIR ALERTNESS* * PANTOPRAZOL 2021-03 Yes TAKE 1 [facility] E 40 mg EC 2-23 TABLET BY ity of tablet 00:00: MOUTH ONCE [place] 00 DAILY Medical BEFORE A Branch MEAL CLOPIDOGREL 2021-03 Yes [id number] TAKE 1 [facility] 75 mg 2-23 TABLET BY ity of tablet 00:00: MOUTH [place] 00 EVERY DAY Medical Branch METFORMIN 2021-03 Yes [id number] TAKE 2 [facility] ER 500 mg 2-23 TABLETS BY ity of 24 hr 00:00: MOUTH 2 [place] tablet 00 TIMES Medical DAILY WITH Branch FOOD IBUPROFEN 2021-03 Yes [id number] TAKE 1 [facility] 800 mg 2-23 TABLET BY ity of tablet 00:00: MOUTH [place] 00 EVERY 6 Medical HOURS WITH Branch FOOD NEEDED FOR PAIN *DO NOT TAKE ASPIRIN* SULFAMETHOX 2021-03 Yes [id number] TAKE 1 [facility] AZOLE-TRIME 2-23 TABLET BY ity of [facility]RIM 00:00: MOUTH 2 [place] 800-160 mg 00 TIMES Medical per tablet DAILY WITH Bra [facility] A GLASS OF WATER LEVETIRACET 2021-03 Yes [id number] TAKE 1 [facility] AM 1,000 mg 2-23 TABLET BY ity of tablet 00:00: MOUTH 2 [place] 00 TIMES Medical DAILY Branch LATUDA 40 2021-03 Yes [id number] TAKE 1 [facility] mg tablet 2-23 TABLET BY ity o f 00:00: MOUTH AT [place] 00 BEDTIME Medical Branch HYDROXYZINE 2021-03 Yes [id number] TAKE 1 [facility] 50 mg 2-23 TABLET BY ity of tablet 00:00: MOUTH 3 [place] 00 TIMES Medical DAILY Branch NEEDED FOR ITCHING OR ANXIETY. *MAY IMPAIR ALERTNESS* * PANTOPRAZOL 2021-03 Yes TAKE 1 [facility] ers E 40 mg EC 2-23 TABLET BY ity of tablet 00:00: MOUTH ONCE [place] 00 DAILY Medical BEFORE A Branch MEAL CLOPIDOGREL 2021-03 Yes [id number] TAKE 1 [facility] 75 mg 2-23 TABLET BY ity of tablet 00:00: MOUTH [place] 00 EVERY DAY Medical Branch METFORMIN 2021-03 Yes [id number] TAKE 2 [facility] ER 500 mg 2-23 TABLETS BY ity of 24 hr 00:00: MOUTH 2 [place] tablet 00 TIMES Medical DAILY WITH Branch FOOD IBUPROFEN 2021-03 Yes [id number] TAKE 1 [facility] 800 mg 2-23 TABLET BY ity of tablet 00:00: MOUTH [place] 00 EVERY 6 Medical HOURS WITH Branch FOOD NEEDED FOR PAIN *DO NOT TAKE ASPIRIN* SULFAMETHOX 2021-03 Yes [id number] TAKE 1 [facility] AZOLE-TRIME 2-23 TABLET BY ity of [facility]RIM 00:00: MOUTH 2 [place] 800-160 mg 00 TIMES Medical per tablet DAILY WITH Bra [facility] A GLASS OF WATER LEVETIRACET 2021-03 Yes [id number] TAKE 1 [facility] AM 1,000 mg 2-23 TABLET BY ity of tablet 00:00: MOUTH 2 [place] 00 TIMES Medical DAILY Branch LATUDA 40 2021-03 Yes [id number] TAKE 1 [facility] nivers mg tablet 2-23 TABLET BY ity o f 00:00: MOUTH AT [place] 00 BEDTIME Medical Branch HYDROXYZINE 2021-03 Yes [id number] TAKE 1 [facility] 50 mg 2-23 TABLET BY ity of tablet 00:00: MOUTH 3 [place] 00 TIMES Medical DAILY Branch NEEDED FOR ITCHING OR ANXIETY. *MAY IMPAIR ALERTNESS* * PANTOPRAZOL 2021-03 Yes TAKE 1 [facility] ers E 40 mg EC 2-23 TABLET BY ity of tablet 00:00: MOUTH ONCE [place] 00 DAILY Medical BEFORE A Branch MEAL CLOPIDOGREL 2021-03 Yes [id number] TAKE 1 [facility] 75 mg 2-23 TABLET BY ity of tablet 00:00: MOUTH [place] 00 EVERY DAY Medical Branch METFORMIN 2021-03 Yes [id number] TAKE 2 [facility] ER 500 mg 2-23 TABLETS BY ity of 24 hr 00:00: MOUTH 2 [place] tablet 00 TIMES Medical DAILY WITH Branch FOOD SULFAMETHOX 2021-03 Yes [id number] TAKE 1 [facility] AZOLE-TRIME 2-23 TABLET BY ity of THOPRIM 00:00: MOUTH 2 [place] 800-160 mg 00 TIMES Medical per tablet DAILY WITH Bra pah A GLASS OF WATER LEVETIRACET 2021-03 Yes [id number] TAKE 1 [facility] AM 1,000 mg 2-23 TABLET BY ity of tablet 00:00: MOUTH 2 [place] 00 TIMES Medical DAILY Branch LATUDA 40 2021-03 Yes [id number] TAKE 1 [facility] mg tablet 2-23 TABLET BY ity o f 00:00: MOUTH AT [place] 00 BEDTIME Medical Branch HYDROXYZINE 2021-03 Yes [id number] TAKE 1 [facility] 50 mg 2-23 TABLET BY ity of tablet 00:00: MOUTH 3 [place] 00 TIMES Medical DAILY Branch NEEDED FOR ITCHING OR ANXIETY. *MAY IMPAIR ALERTNESS* * PANTOPRAZOL 2021-03 Yes TAKE 1 [facility] ers E 40 mg EC 2-23 TABLET BY ity of tablet 00:00: MOUTH ONCE [place] 00 DAILY Medical BEFORE A Branch MEAL CLOPIDOGREL 2021-03 Yes [id number] TAKE 1 [facility] 75 mg 2-23 TABLET BY ity of tablet 00:00: MOUTH [place] 00 EVERY DAY Medical Branch METFORMIN 2021-03 Yes [id number] TAKE 2 [facility] ER 500 mg 2-23 TABLETS BY ity of 24 hr 00:00: MOUTH 2 [place] tablet 00 TIMES Medical DAILY WITH Branch FOOD SULFAMETHOX 2021-03 Yes [id number] TAKE 1 [facility] AZOLE-TRIME 2-23 TABLET BY ity of THOPRIM 00:00: MOUTH 2 [place] 800-160 mg 00 TIMES Medical per tablet DAILY WITH Bra [facility] A GLASS OF WATER LEVETIRACET 2021-03 Yes [id number] TAKE 1 [facility] AM 1,000 mg 2-23 TABLET BY ity of tablet 00:00: MOUTH 2 [place] 00 TIMES Medical DAILY Branch LATUDA 40 2021-03 Yes [id number] TAKE 1 [facility] nivers mg tablet 2-23 TABLET BY ity o f 00:00: MOUTH AT [place] 00 BEDTIME Medical Branch HYDROXYZINE 2021-03 Yes [id number] TAKE 1 [facility] 50 mg 2-23 TABLET BY ity of tablet 00:00: MOUTH 3 [place] 00 TIMES Medical DAILY Branch NEEDED FOR ITCHING OR ANXIETY. *MAY IMPAIR ALERTNESS* * PANTOPRAZOL 2021-03 Yes TAKE 1 [facility] ers E 40 mg EC 2-23 TABLET BY ity of tablet 00:00: MOUTH ONCE [place] 00 DAILY Medical BEFORE A Branch MEAL CLOPIDOGREL 2021-03 Yes [id number] TAKE 1 [facility] 75 mg 2-23 TABLET BY ity of tablet 00:00: MOUTH [place] 00 EVERY DAY Medical Branch METFORMIN 2021-03 Yes [id number] TAKE 2 [facility] ER 500 mg 2-23 TABLETS BY ity of 24 hr 00:00: MOUTH 2 [place] tablet 00 TIMES Medical DAILY WITH Branch FOOD SULFAMETHOX 2021-03 Yes [id number] TAKE 1 [facility] AZOLE-TRIME 2-23 TABLET BY ity of THOPRIM 00:00: MOUTH 2 [place] 800-160 mg 00 TIMES Medical per tablet DAILY WITH Bra [facility] A GLASS OF WATER LEVETIRACET 2021-03 Yes [id number] TAKE 1 [facility] AM 1,000 mg 2-23 TABLET BY ity of tablet 00:00: MOUTH 2 [place] 00 TIMES Medical DAILY Branch LATUDA 40 2021-03 Yes [id number] TAKE 1 [facility] nivers mg tablet 2-23 TABLET BY ity o f 00:00: MOUTH AT [place] 00 BEDTIME Medical Branch HYDROXYZINE 2021-03 Yes [id number] TAKE 1 [facility] 50 mg 2-23 TABLET BY ity of tablet 00:00: MOUTH 3 [place] 00 TIMES Medical DAILY Branch NEEDED FOR ITCHING OR ANXIETY. *MAY IMPAIR ALERTNESS* * PANTOPRAZOL 2021-03 Yes TAKE 1 [facility] ers E 40 mg EC 2-23 TABLET BY ity of tablet 00:00: MOUTH ONCE [place] 00 DAILY Medical BEFORE A Branch MEAL CLOPIDOGREL 2021-03 Yes [id number] TAKE 1 [facility] 75 mg 2-23 TABLET BY ity of tablet 00:00: MOUTH [place] 00 EVERY DAY Medical Branch METFORMIN 2021-03 Yes [id number] TAKE 2 [facility] ER 500 mg 2-23 TABLETS BY ity of 24 hr 00:00: MOUTH 2 [place] tablet 00 TIMES Medical DAILY WITH Branch FOOD SULFAMETHOX 2021-03 Yes [id number] TAKE 1 [facility] AZOLE-TRIME 2-23 TABLET BY ity of THOPRIM 00:00: MOUTH 2 [place] 800-160 mg 00 TIMES Medical per tablet DAILY WITH Bra nch A GLASS OF WATER LEVETIRACET 2021-03 Yes [id number] TAKE 1 [facility] AM 1,000 mg 2-23 TABLET BY ity of tablet 00:00: MOUTH 2 [place] 00 TIMES Medical DAILY Branch LATUDA 40 2021-03 Yes [id number] TAKE 1 [facility] mg tablet 2-23 TABLET BY ity o f 00:00: MOUTH AT [place] 00 BEDTIME Medical Branch HYDROXYZINE 2021-03 Yes [id number] TAKE 1 [facility] 50 mg 2-23 TABLET BY ity of tablet 00:00: MOUTH 3 [place] 00 TIMES Medical DAILY Branch NEEDED FOR ITCHING OR ANXIETY. *MAY IMPAIR ALERTNESS* * PANTOPRAZOL 2021-03 Yes TAKE 1 [facility] ers E 40 mg EC 2-23 TABLET BY ity of tablet 00:00: MOUTH ONCE [place] 00 DAILY Medical BEFORE A Branch MEAL CLOPIDOGREL 2021-03 Yes [id number] TAKE 1 [facility] 75 mg 2-23 TABLET BY ity of tablet 00:00: MOUTH [place] 00 EVERY DAY Medical Branch METFORMIN 2021-03 Yes [id number] TAKE 2 [facility] ER 500 mg 2-23 TABLETS BY ity of 24 hr 00:00: MOUTH 2 [place] tablet 00 TIMES Medical DAILY WITH Branch FOOD SULFAMETHOX 2021-03 Yes [id number] TAKE 1 [facility] AZOLE-TRIME 2-23 TABLET BY ity of THOPRIM 00:00: MOUTH 2 [place] 800-160 mg 00 TIMES Medical per tablet DAILY WITH Bra nch A GLASS OF WATER LEVETIRACET 2021-03 Yes [id number] TAKE 1 [facility] AM 1,000 mg 2-23 TABLET BY ity of tablet 00:00: MOUTH 2 [place] 00 TIMES Medical DAILY Branch LATUDA 40 2021-03 Yes [id number] TAKE 1 [facility] nivers mg tablet 2-23 TABLET BY ity o f 00:00: MOUTH AT [place] 00 BEDTIME Medical Branch HYDROXYZINE 2021-03 Yes [id number] TAKE 1 [facility] 50 mg 2-23 TABLET BY ity of tablet 00:00: MOUTH 3 [place] 00 TIMES Medical DAILY Branch NEEDED FOR ITCHING OR ANXIETY. *MAY IMPAIR ALERTNESS* * PANTOPRAZOL 2021-03 Yes TAKE 1 [facility] ers E 40 mg EC 2-23 TABLET BY ity of tablet 00:00: MOUTH ONCE [place] 00 DAILY Medical BEFORE A Branch MEAL CLOPIDOGREL 2021-03 Yes [id number] TAKE 1 [facility] 75 mg 2-23 TABLET BY ity of tablet 00:00: MOUTH [place] EVERY DAY Medical Branch METFORMIN 2021-03 Yes [id number] TAKE 2 [facility] ER 500 mg 2-23 TABLETS BY ity of 24 hr 00:00: MOUTH 2 [place] tablet 00 TIMES Medical DAILY WITH Branch FOOD SULFAMETHOX 2021-03 Yes [id number] TAKE 1 [facility] AZOLE-TRIME 2-23 TABLET BY ity of THOPRIM 00:00: MOUTH 2 [place] 800-160 mg 00 TIMES Medical per tablet DAILY WITH Bra [facility] A GLASS OF WATER LEVETIRACET 2021-03 Yes [id number] TAKE 1 [facility] AM 1,000 mg 2-23 TABLET BY ity of tablet 00:00: MOUTH 2 [place] 00 TIMES Medical DAILY Branch [place] [address] 2021-03 Yes [id number] TAKE 1 [facility] nivers mg tablet 2-23 TABLET BY ity o f 00:00: MOUTH AT [place] 00 BEDTIME Medical Branch HYDROXYZINE 2021-03 Yes [id number] TAKE 1 [facility] 50 mg 2-23 TABLET BY ity of tablet 00:00: MOUTH 3 [place] 00 TIMES Medical DAILY Branch NEEDED FOR ITCHING OR ANXIETY. *MAY IMPAIR ALERTNESS* * PANTOPRAZOL 2021-03 Yes TAKE 1 [facility] ers E 40 mg EC 2-23 TABLET BY ity of tablet 00:00: MOUTH ONCE [place] 00 DAILY Medical BEFORE A Branch MEAL CLOPIDOGREL 2021-03 Yes [id number] TAKE 1 [facility] 75 mg 2-23 TABLET BY ity of tablet 00:00: MOUTH [place] 00 EVERY DAY Medical Branch METFORMIN 2021-03 Yes [id number] TAKE 2 [facility] ER 500 mg 2-23 TABLETS BY ity of 24 hr 00:00: MOUTH 2 [place] tablet 00 TIMES Medical DAILY WITH Branch FOOD SULFAMETHOX 2021-03 Yes [id number] TAKE 1 [facility] AZOLE-TRIME 2-23 TABLET BY ity of THOPRIM 00:00: MOUTH 2 [place] 800-160 mg 00 TIMES Medical per tablet DAILY WITH Bra nch A GLASS OF WATER LEVETIRACET 2021-03 Yes [id number] TAKE 1 [facility] AM 1,000 mg 2-23 TABLET BY ity of tablet 00:00: MOUTH 2 [place] 00 TIMES Medical DAILY Branch LATUDA 40 2021-03 Yes [id number] TAKE 1 [facility] mg tablet 2-23 TABLET BY ity o f 00:00: MOUTH AT [place] 00 BEDTIME Medical Branch HYDROXYZINE 2021-03 Yes [id number] TAKE 1 [facility] 50 mg 2-23 TABLET BY ity of tablet 00:00: MOUTH 3 [place] 00 TIMES Medical DAILY Branch NEEDED FOR ITCHING OR ANXIETY. *MAY IMPAIR ALERTNESS* * CLOPIDOGREL 2021-03 Yes [id number] TAKE 1 [facility] 75 mg 2-23 TABLET BY ity of tablet 00:00: MOUTH [place] 00 EVERY DAY Medical Branch METFORMIN 2021-03 Yes [id number] TAKE 2 [facility] ER 500 mg 2-23 TABLETS BY ity of 24 hr 00:00: MOUTH 2 [place] tablet 00 TIMES Medical DAILY WITH Branch FOOD SULFAMETHOX 2021-03 Yes [id number] TAKE 1 [facility] AZOLE-TRIME 2-23 TABLET BY ity of THOPRIM 00:00: MOUTH 2 [place] 800-160 mg 00 TIMES Medical per tablet DAILY WITH Bra n[facility] A GLASS OF WATER LEVETIRACET 2021-03 Yes [id number] TAKE 1 [facility] AM 1,000 mg 2-23 TABLET BY ity of tablet 00:00: MOUTH 2 [place] 00 TIMES Medical DAILY Branch HYDROXYZINE 2021-03 Yes [id number] TAKE 1 [facility] 50 mg 2-23 TABLET BY ity of tablet 00:00: MOUTH 3 [place] 00 TIMES Medical DAILY Branch NEEDED FOR ITCHING OR ANXIETY. *MAY IMPAIR ALERTNESS* * SULFAMETHOX 2021-03 Yes [id number] TAKE 1 [facility] AZOLE-TRIME 2-23 TABLET BY ity of THOPRIM 00:00: MOUTH 2 [place] 800-160 mg 00 TIMES Medical per tablet DAILY WITH Bra nch A GLASS OF WATER LEVETIRACET 2021-03 Yes [id number] TAKE 1 [facility] AM 1,000 mg 2-23 TABLET BY ity of tablet 00:00: MOUTH 2 [place] 00 TIMES Medical DAILY Branch SULFAMETHOX 2021-03- No [id number] TAKE 1 [facility] AZOLE-TRIME -04-24 TABLET BY it y of THOPRIM 00:00: 00:00 MOUTH 2 [place] 800-160 mg 00 :00 TIMES Medical per tablet DAILY WITH [facility] A GLASS OF WATER LEVETIRACET 2021-03- No [id number] TAKE 1 [facility] AM 1,000 mg -04-24 TABLET BY it y of tablet 00:00: 00:00 MOUTH 2 [place] 00 :00 TIMES Medical DAILY Branch HYDROXYZINE 2021-03- No [id number] TAKE 1 [facility] 50 mg -04-23 TABLET BY ity of tablet 00:00: 00:00 MOUTH 3 [place] 00 :00 TIMES Medical DAILY Branch NEEDED FOR ITCHING OR ANXIETY. *MAY IMPAIR ALERTNESS* * LATUDA 40 2021-03- No [id number] TAKE 1 [facility] mg tablet 05-15 TABLET BY ity of 00:00: 00:00 MOUTH AT [place] 00 :00 BEDTIME Medical Branch CLOPIDOGREL 2021-03- No [id number] TAKE 1 [facility] 75 mg 05-15 TABLET BY ity of tablet 00:00: 00:00 MOUTH [place] 00 :00 EVERY DAY Medical Branch METFORMIN 2021-03- No [id number] TAKE 2 U nivers ER 500 mg 05-15 TABLETS BY ity of 24 hr 00:00: 00:00 MOUTH 2 [place] tablet 00 :00 TIMES Medical DAILY WITH Branch FOOD PANTOPRAZOL 2021-03- No TAKE 1 [facility] vers E 40 mg EC 05-15 TABLET BY ity of tablet 00:00: 00:00 MOUTH ONCE [place] 00 :00 DAILY Medical BEFORE A Branch MEAL IBUPROFEN 2021-03- No [id number] TAKE 1 [facility] 800 mg -04-08 TABLET BY ity of tablet 00:00: 00:00 MOUTH [place] 00 :00 EVERY 6 Medical HOURS WITH Branch FOOD NEEDED FOR PAIN *DO NOT TAKE ASPIRIN* HYDROcodone 2021-03 Yes [id number] TAKE 1 [facility] ers -acetaminop 2-21 TABLET BY ity of hen 10-325 00:00: MOUTH [place] mg tablet 00 EVERY 4 Medical HOURS Branch NEEDED FOR PAIN (SCALE 4-6) *MAY MAKE DROWSY* Indication s: chronic pain HYDROcodone 2021-03 Yes [id number] TAKE 1 [facility] ers -acetaminop 2-21 TABLET BY ity of hen 10-325 00:00: MOUTH [place] mg tablet 00 EVERY 4 Medical HOURS Branch NEEDED FOR PAIN (SCALE 4-6) *MAY MAKE DROWSY* Indication s: chronic pain HYDROcodone 2021-03 Yes 2745 TAKE 1 [facility] ers -acetaminop 2-21 TABLET BY ity of hen 10-325 00:00: MOUTH [place] mg tablet 00 EVERY 4 Medical HOURS Branch NEEDED FOR PAIN (SCALE 4-6) *MAY MAKE DROWSY* Indication s: chronic pain HYDROcodone 2021-03 Yes 2745 TAKE 1 [facility] ers -acetaminop 2-21 TABLET BY ity of hen 10-325 00:00: MOUTH [place] mg tablet 00 EVERY 4 Medical HOURS Branch NEEDED FOR PAIN (SCALE 4-6) *MAY MAKE DROWSY* Indication s: chronic pain HYDROcodone 2021-03 Yes 2745 TAKE 1 [facility] ers -acetaminop 2-21 TABLET BY ity of hen 10-325 00:00: MOUTH [place] mg tablet 00 EVERY 4 Medical HOURS Branch NEEDED FOR PAIN (SCALE 4-6) *MAY MAKE DROWSY* Indication s: chronic pain HYDROcodone 2021-03 Yes 2745 TAKE 1 [facility] ers -acetaminop 2-21 TABLET BY ity of hen 10-325 00:00: MOUTH [place] mg tablet 00 EVERY 4 Medical HOURS Branch NEEDED FOR PAIN (SCALE 4-6) *MAY MAKE DROWSY* Indication s: chronic pain HYDROcodone 2021-03 Yes 2745 TAKE 1 [facility] ers -acetaminop 2-21 TABLET BY ity of hen 10-325 00:00: MOUTH [place] mg tablet 00 EVERY 4 Medical HOURS Branch NEEDED FOR PAIN (SCALE 4-6) *MAY MAKE DROWSY* Indication s: chronic pain HYDROcodone 2021-03 Yes 2745 TAKE 1 [facility] ers -acetaminop 2-21 TABLET BY ity of hen 10-325 00:00: MOUTH [place] mg tablet 00 EVERY 4 Medical HOURS Branch NEEDED FOR PAIN (SCALE 4-6) *MAY MAKE DROWSY* Indication s: chronic pain HYDROcodone 2021-03 Yes 2745 TAKE 1 [facility] ers -acetaminop 2-21 TABLET BY ity of hen 10-325 00:00: MOUTH [place] mg tablet 00 EVERY 4 Medical HOURS Branch NEEDED FOR PAIN (SCALE 4-6) *MAY MAKE DROWSY* Indication s: chronic pain HYDROcodone 2021-03 Yes 2745 TAKE 1 [facility] ers -acetaminop 2-21 TABLET BY ity of hen 10-325 00:00: MOUTH [place] mg tablet 00 EVERY 4 Medical HOURS Branch NEEDED FOR PAIN (SCALE 4-6) *MAY MAKE DROWSY* Indication s: chronic pain HYDROcodone 2021-03 Yes 2745 TAKE 1 [facility] ers -acetaminop 2-21 TABLET BY ity of hen 10-325 00:00: MOUTH [place] mg tablet 00 EVERY 4 Medical HOURS Branch NEEDED FOR PAIN (SCALE 4-6) *MAY MAKE DROWSY* Indication s: chronic pain HYDROcodone 2021-03 Yes 2745 TAKE 1 [facility] -acetaminop 2-21 TABLET BY [facility] 10-325 00:00: MOUTH [place] mg tablet 00 EVERY 4 Medical HOURS [facility] NEEDED FOR PAIN (SCALE 4-6) *MAY MAKE DROWSY* Indication s: chronic pain HYDROcodone 2021-03 Yes 2745 TAKE 1 [facility] -acetaminop 2-21 TABLET BY [facility] 10-325 00:00: MOUTH [place] mg tablet 00 EVERY 4 [facility] HOURS [facility] NEEDED FOR PAIN (SCALE 4-6) *MAY MAKE DROWSY* Indication s: chronic pain HYDROcodone 2021-03 Yes 2745 TAKE 1 [facility] -acetaminop 2-21 TABLET BY [facility] 10-325 00:00: MOUTH [place] mg tablet 00 EVERY 4 Medical HOURS [facility] NEEDED FOR PAIN (SCALE 4-6) *MAY MAKE DROWSY* Indication s: chronic pain HYDROcodone 2021-03 Yes 2745 TAKE 1 [facility] -acetaminop 2-21 TABLET BY [facility] 10-325 00:00: MOUTH [place] mg tablet 00 EVERY 4 Medical HOURS Branch NEEDED FOR PAIN (SCALE 4-6) *MAY MAKE DROWSY* Indication s: chronic pain HYDROcodone 2021-03 Yes 2745 TAKE 1 [facility] -acetaminop 2-21 TABLET BY [facility] 10-325 00:00: MOUTH [place] mg tablet 00 EVERY 4 Medical HOURS Branch NEEDED FOR PAIN (SCALE 4-6) *MAY MAKE DROWSY* Indication s: chronic pain HYDROcodone 2021-03 Yes 2745 TAKE 1 [facility] -acetaminop 2-21 TABLET BY [facility] 10-325 00:00: MOUTH [place] mg tablet 00 EVERY 4 Medical HOURS Branch NEEDED FOR PAIN (SCALE 4-6) *MAY MAKE DROWSY* Indication s: chronic pain HYDROcodone 2021-03 Yes 2745 TAKE 1 [facility] -acetaminop 2-21 TABLET BY [facility] 10-325 00:00: MOUTH [place] mg tablet 00 EVERY 4 Medical HOURS Branch NEEDED FOR PAIN (SCALE 4-6) *MAY MAKE DROWSY* Indication s: chronic pain HYDROcodone 2021-03 Yes 2745 TAKE 1 [facility] -acetaminop 2-21 TABLET BY [facility] 10-325 00:00: MOUTH [place] mg tablet 00 EVERY 4 Medical HOURS Branch NEEDED FOR PAIN (SCALE 4-6) *MAY MAKE DROWSY* Indication s: chronic pain HYDROcodone 2021-03 Yes 2745 TAKE 1 [facility] -acetaminop 2-21 TABLET BY [facility] 10-325 00:00: MOUTH [place] mg tablet 00 EVERY 4 Medical HOURS Branch NEEDED FOR PAIN (SCALE 4-6) *MAY MAKE DROWSY* Indication s: chronic pain HYDROcodone 2021-03 Yes 2745 TAKE 1 [facility] -acetaminop 2-21 TABLET BY [facility] 10-325 00:00: MOUTH [place] mg tablet 00 EVERY 4 Medical HOURS Branch NEEDED FOR PAIN (SCALE 4-6) *MAY MAKE DROWSY* Indication s: chronic pain HYDROcodone 2021-033- No 2745 TAKE 1 [facility] -acetaminop 2-21 01-18 TABLET BY [facility] 10-325 00:00: 00:00 MOUTH [place] mg tablet 00 :00 EVERY 4 Medical HOURS Branch NEEDED FOR PAIN (SCALE 4-6) *MAY MAKE DROWSY* Indication s: chronic pain methocarbam 2021-03 Yes [id number] 500mg Take 1 [facility] o[facility] 500 mg 2-19 tablet by [facility] tablet 00:00: mouth [place] 00 every 6 Medical (six) Branch hours as needed for Pain (scale 4-6). methocarbam 2021-03 Yes [id number] 500mg Take 1 [facility] o[facility] 500 mg 2-19 tablet by [facility] tablet 00:00: mouth [place] 00 every 6 Medical (six) Branch hours as needed for Pain (scale 4-6). methocarbam 2021-03 Yes [id number] 500mg Take 1 [facility] o[facility] 500 mg 2-19 tablet by [facility] tablet 00:00: mouth [place] 00 every 6 Medical (six) Branch hours as needed for Pain (scale 4-6). methocarbam 2021-03 Yes [id number] 500mg Take 1 [facility] o[facility] 500 mg 2-19 tablet by [facility] tablet 00:00: mouth [place] 00 every 6 Medical (six) Branch hours as needed for Pain (scale 4-6). methocarbam 2021-03 Yes [id number] 500mg Take 1 [facility] o[facility] 500 mg 2-19 tablet by [facility] tablet 00:00: mouth [place] 00 every 6 Medical (six) Branch hours as needed for Pain (scale 4-6). methocarbam 2021-03 Yes [id number] 500mg Take 1 [facility] o[facility] 500 mg 2-19 tablet by [facility] tablet 00:00: mouth [place] 00 every 6 Medical (six) Branch hours as needed for Pain (scale 4-6). methocarbam 2021-03 Yes [id number] 500mg Take 1 [facility] o[facility] 500 mg 2-19 tablet by [facility] tablet 00:00: mouth [place] 00 every 6 Medical (six) Branch hours as needed for Pain (scale 4-6). methocarbam 2021-03 Yes [id number] 500mg Take 1 [facility] o[facility] 500 mg 2-19 tablet by [facility] tablet 00:00: mouth [place] 00 every 6 Medical (six) Branch hours as needed for Pain (scale 4-6). methocarbam 2021-03 Yes [id number] 500mg Take 1 [facility] oL 500 mg 2-19 tablet by [facility] tablet 00:00: mouth [place] 00 every 6 Medical (six) Branch hours as needed for Pain (scale 4-6). methocarbam 2021-03 Yes [id number] 500mg Take 1 [facility] o[facility] 500 mg 2-19 tablet by [facility] tablet 00:00: mouth [place] 00 every 6 Medical (six) Branch hours as needed for Pain (scale 4-6). methocarbam 2021-03 Yes [id number] 500mg Take 1 [facility] o[facility] 500 mg 2-19 tablet by [facility] tablet 00:00: mouth [place] 00 every 6 Medical (six) Branch hours as needed for Pain (scale 4-6). methocarbam 2021-03 Yes [id number] 500mg Take 1 [facility] o[facility] 500 mg 2-19 tablet by [facility] tablet 00:00: mouth [place] 00 every 6 Medical (six) Branch hours as needed for Pain (scale 4-6). methocarbam 2021-03 Yes [id number] 500mg Take 1 [facility] o[facility] 500 mg 2-19 tablet by [facility] tablet 00:00: mouth [place] 00 every 6 Medical (six) Branch hours as needed for Pain (scale 4-6). methocarbam 2021-03 Yes [id number] 500mg Take 1 [facility] o[facility] 500 mg 2-19 tablet by [facility] tablet 00:00: mouth [place] 00 every 6 Medical (six) Branch hours as needed for Pain (scale 4-6). methocarbam 2021-03 Yes [id number] 500mg Take 1 [facility] o[facility] 500 mg 2-19 tablet by [facility] tablet 00:00: mouth [place] 00 every 6 Medical (six) Branch hours as needed for Pain (scale 4-6). methocarbam 2021-03 Yes [id number] 500mg Take 1 [facility] o[facility] 500 mg 2-19 tablet by [facility] tablet 00:00: mouth [place] 00 every 6 Medical (six) Branch hours as needed for Pain (scale 4-6). methocarbam 2021-03 Yes [id number] 500mg Take 1 [facility] o[facility] 500 mg 2-19 tablet by [facility] tablet 00:00: mouth [place] 00 every 6 Medical (six) Branch hours as needed for Pain (scale 4-6). methocarbam 2021-03 Yes [id number] 500mg Take 1 [facility] o[facility] 500 mg 2-19 tablet by [facility] tablet 00:00: mouth [place] 00 every 6 Medical (six) Branch hours as needed for Pain (scale 4-6). methocarbam 2021-03 Yes [id number] 500mg Take 1 [facility] o[facility] 500 mg 2-19 tablet by [facility] tablet 00:00: mouth [place] 00 every 6 Medical (six) Branch hours as needed for Pain (scale 4-6). methocarbam 2021-03 Yes [id number] 500mg Take 1 [facility] o[facility] 500 mg 2-19 tablet by [facility] tablet 00:00: mouth [place] 00 every 6 Medical (six) Branch hours as needed for Pain (scale 4-6). methocarbam 2021-03 Yes [id number] 500mg Take 1 [facility] o[facility] 500 mg 2-19 tablet by [facility] tablet 00:00: mouth [place] 00 every 6 Medical (six) Branch hours as needed for Pain (scale 4-6). methocarbam 2021-03 Yes [id number] 500mg Take 1 [facility] 500 mg 2-19 tablet by [facility] tablet 00:00: mouth [place] 00 every 6 Medical (six) Branch hours as needed for Pain (scale 4-6). methocarbam 2021-03 Yes [id number] 500mg Take 1 [facility] 500 mg 2-19 tablet by [facility] tablet 00:00: mouth [place] 00 every 6 Medical (six) Branch hours as needed for Pain (scale 4-6). methocarbam 2021-03 Yes [id number] 500mg Take 1 [facility] o[facility] 500 mg 2-19 tablet by [facility] tablet 00:00: mouth [place] 00 every 6 Medical (six) Branch hours as needed for Pain (scale 4-6). methocarbam 2021-03 Yes [id number] 500mg Take 1 [facility] o[facility] 500 mg 2-19 tablet by [facility] tablet 00:00: mouth [place] 00 every 6 Medical (six) Branch hours as needed for Pain (scale 4-6). methocarbam 2021-03 Yes [id number] 500mg Take 1 [facility] o[facility] 500 mg 2-19 tablet by [facility] tablet 00:00: mouth [place] 00 every 6 Medical (six) Branch hours as needed for Pain (scale 4-6). methocarbam 2021-03 Yes [id number] 500mg Take 1 [facility] o[facility] 500 mg 2-19 tablet by [facility] tablet 00:00: mouth [place] 00 every 6 Medical (six) Branch hours as needed for Pain (scale 4-6). methocarbam 2021-03 Yes [id number] 500mg Take 1 [facility] o[facility] 500 mg 2-19 tablet by [facility] tablet 00:00: mouth [place] 00 every 6 Medical (six) Branch hours as needed for Pain (scale 4-6). methocarbam 2021-03 Yes [id number] 500mg Take 1 [facility] o[facility] 500 mg 2-19 tablet by [facility] tablet 00:00: mouth [place] 00 every 6 Medical (six) Branch hours as needed for Pain (scale 4-6). methocarbam 2021-03 Yes [id number] 500mg Take 1 [facility] o[facility] 500 mg 2-19 tablet by [facility] tablet 00:00: mouth [place] 00 every 6 Medical (six) Branch hours as needed for Pain (scale 4-6). methocarbam 2021-03 Yes [id number] 500mg Take 1 [facility] o[facility] 500 mg 2-19 tablet by [facility] tablet 00:00: mouth [place] 00 every 6 Medical (six) Branch hours as needed for Pain (scale 4-6). methocarbam 2021-03 Yes [id number] 500mg Take 1 [facility] o[facility] 500 mg 2-19 tablet by [facility] tablet 00:00: mouth [place] 00 every 6 Medical (six) Branch hours as needed for Pain (scale 4-6). methocarbam 2021-03 Yes [id number] 500mg Take 1 [facility] o[facility] 500 mg 2-19 tablet by [facility] tablet 00:00: mouth [place] 00 every 6 Medical (six) Branch hours as needed for Pain (scale 4-6). methocarbam 2021-03 Yes [id number] 500mg Take 1 [facility] o[facility] 500 mg 2-19 tablet by [facility] tablet 00:00: mouth [place] 00 every 6 Medical (six) Branch hours as needed for Pain (scale 4-6). methocarbam 2021-03 Yes [id number] 500mg Take 1 [facility] o[facility] 500 mg 2-19 tablet by [facility] tablet 00:00: mouth [place] 00 every 6 Medical (six) Branch hours as needed for Pain (scale 4-6). methocarbam 2021-03 Yes [id number] 500mg Take 1 [facility] o[facility] 500 mg 2-19 tablet by [facility] tablet 00:00: mouth [place] 00 every 6 Medical (six) Branch hours as needed for Pain (scale 4-6). methocarbam 2021-03 Yes [id number] 500mg Take 1 [facility] o[facility] 500 mg 2-19 tablet by [facility] tablet 00:00: mouth [place] 00 every 6 Medical (six) Branch hours as needed for Pain (scale 4-6). methocarbam 2021-03 Yes [id number] 500mg Take 1 [facility] o[facility] 500 mg 2-19 tablet by [facility] tablet 00:00: mouth [place] 00 every 6 Medical (six) Branch hours as needed for Pain (scale 4-6). methocarbam 2021-03- No [id number] 500mg Take 1 [facility] o[facility] 500 mg 2-19 05-21 tablet by [facility] of tablet 00:00: 00:00 mouth [place] 00 :00 every 6 Medical (six) Branch hours as needed for Pain (scale 4-6). ATORVASTATI 2021-03 Yes [id number] 40mg TAKE 1 [facility] N 40 mg 2-13 TABLET BY [facility] of tablet 00:00: MOUTH AT [place] 00 BEDTIME. Medical Branch ATORVASTATI 2021-03 Yes [id number] 40mg TAKE 1 [facility] N 40 mg 2-13 TABLET BY [facility] of tablet 00:00: MOUTH AT [place] [address] BEDTIME. Medical Branch ATORVASTA 2021-03 Yes [id number] 40mg TAKE 1 [facility] N 40 mg 2-13 TABLET BY [facility] of tablet 00:00: MOUTH AT [place] [address] BEDTIME. Medical Branch ATORVASTA 2021-03 Yes [id number] 40mg TAKE 1 [facility] N 40 mg 2-13 TABLET BY [facility] tablet 00:00: MOUTH AT [place] 00 BEDTIME. Medical Branch ATORVASTATI 2021-03 Yes [id number] 40mg TAKE 1 [facility] N 40 mg 2-13 TABLET BY [facility] of tablet 00:00: MOUTH AT [place] [address] BEDTIME. Medical Branch ATORVASTATI 2021-03 Yes [id number] 40mg TAKE 1 [facility] N 40 mg 2-13 TABLET BY [facility] tablet 00:00: MOUTH AT [place] [address] BEDTIME. Medical Branch ATORVASTATI 2021-03 Yes [id number] 40mg TAKE 1 [facility] N 40 mg 2-13 TABLET BY [facility] of tablet 00:00: MOUTH AT [place] [address] BEDTIME. Medical Branch ATORVASTATI 2021-03 Yes [id number] 40mg TAKE 1 [facility] N 40 mg 2-13 TABLET BY [facility] of tablet 00:00: MOUTH AT [place] [address] BEDTIME. Medical Branch ATORVASTATI 2021-03 Yes [id number] 40mg TAKE 1 [facility] N 40 mg 2-13 TABLET BY [facility] of tablet 00:00: MOUTH AT [place] [address] BEDTIME. Medical Branch ATORVASTA 2021-03 Yes [id number] 40mg TAKE 1 [facility] N 40 mg 2-13 TABLET BY [facility] of tablet 00:00: MOUTH AT [place] [address] BEDTIME. [facility] Yes [id number] 40mg TAKE 1 [facility] N 40 mg 2-13 TABLET BY [facility] of tablet 00:00: MOUTH AT [place] [address] BEDTIME. [facility] Yes [id number] 40mg TAKE 1 [facility] N 40 mg 2-13 TABLET BY [facility] of tablet 00:00: MOUTH AT [place] [address] BEDTIME. [facility] Yes [id number] 40mg TAKE 1 [facility] N 40 mg 2-13 TABLET BY [facility] of tablet 00:00: MOUTH AT [place] [address] BEDTIME. [facility] Yes [id number] 40mg TAKE 1 [facility] N 40 mg 2-13 TABLET BY [facility] tablet 00:00: MOUTH AT [place] [address] BEDTIME. [facility] Yes [id number] 40mg TAKE 1 [facility] N 40 mg 2-13 TABLET BY [facility] tablet 00:00: MOUTH AT [place] [address] BEDTIME. [facility] Yes [id number] 40mg TAKE 1 [facility] N 40 mg 2-13 TABLET BY [facility] tablet 00:00: MOUTH AT [place] [address] BEDTIME. [facility] Yes [id number] 40mg TAKE 1 [facility] N 40 mg 2-13 TABLET BY [facility] tablet 00:00: MOUTH AT [place] [address] BEDTIME. [facility] Yes [id number] 40mg TAKE 1 [facility] N 40 mg 2-13 TABLET BY [facility] tablet 00:00: MOUTH AT [place] [address] BEDTIME. [facility] Yes [id number] 40mg TAKE 1 [facility] N 40 mg 2-13 TABLET BY [facility] tablet 00:00: MOUTH AT [place] [address] BEDTIME. [facility] Yes [id number] 40mg TAKE 1 [facility] N 40 mg 2-13 TABLET BY [facility] tablet 00:00: MOUTH AT [place] [address] BEDTIME. [facility] Yes [id number] 40mg TAKE 1 [facility] N 40 mg 2-13 TABLET BY [facility] tablet 00:00: MOUTH AT [place] [address] BEDTIME. [facility] Yes [id number] 40mg TAKE 1 [facility] N 40 mg 2-13 TABLET BY [facility] tablet 00:00: MOUTH AT [place] 00 BEDTIME. [facility] Yes [id number] 40mg TAKE 1 [facility] N 40 mg 2-13 TABLET BY [facility] tablet 00:00: MOUTH AT [place] 00 BEDTIME. [facility] Yes [id number] 40mg TAKE 1 [facility] N 40 mg 2-13 TABLET BY [facility] tablet 00:00: MOUTH AT [place] 00 BEDTIME. [facility] Yes [id number] 40mg TAKE 1 [facility] N 40 mg 2-13 TABLET BY [facility] tablet 00:00: MOUTH AT [place] 00 BEDTIME. [facility] Yes [id number] 40mg TAKE 1 [facility] N 40 mg 2-13 TABLET BY [facility] tablet 00:00: MOUTH AT [place] 00 BEDTIME. [facility] Yes [id number] 40mg TAKE 1 [facility] N 40 mg 2-13 TABLET BY [facility] tablet 00:00: MOUTH AT [place] 00 BEDTIME. [facility] Yes [id number] 40mg TAKE 1 [facility] N 40 mg 2-13 TABLET BY [facility] tablet 00:00: MOUTH AT [place] 00 BEDTIME. [facility] Yes [id number] 40mg TAKE 1 [facility] N 40 mg 2-13 TABLET BY [facility] tablet 00:00: MOUTH AT [place] 00 BEDTIME. [facility] Yes [id number] 40mg TAKE 1 [facility] N 40 mg 2-13 TABLET BY [facility] tablet 00:00: MOUTH AT [place] 00 BEDTIME. [facility] Yes [id number] 40mg TAKE 1 [facility] N 40 mg 2-13 TABLET BY [facility] tablet 00:00: MOUTH AT [place] 00 BEDTIME. [facility] Yes [id number] 40mg TAKE 1 [facility] N 40 mg 2-13 TABLET BY [facility] tablet 00:00: MOUTH AT [place] 00 BEDTIME. [facility] Yes [id number] 40mg TAKE 1 [facility] N 40 mg 2-13 TABLET BY [facility] tablet 00:00: MOUTH AT [place] 00 BEDTIME. [facility] Yes [id number] 40mg TAKE 1 [facility] N 40 mg 2-13 TABLET BY [facility] tablet 00:00: MOUTH AT [place] 00 BEDTIME. [facility] Yes [id number] 40mg TAKE 1 [facility] N 40 mg 2-13 TABLET BY [facility] of tablet 00:00: MOUTH AT [place] 00 BEDTIME. [facility] Yes [id number] 40mg TAKE 1 [facility] N 40 mg 2-13 TABLET BY [facility] of tablet 00:00: MOUTH AT [place] 00 BEDTIME. [facility] Yes [id number] 40mg TAKE 1 [facility] N 40 mg 2-13 TABLET BY [facility] tablet 00:00: MOUTH AT [place] 00 BEDTIME. [facility] Yes [id number] 40mg TAKE 1 [facility] N 40 mg 2-13 TABLET BY [facility] tablet 00:00: MOUTH AT [place] 00 BEDTIME. [facility] Yes [id number] 40mg TAKE 1 [facility] N 40 mg 2-13 TABLET BY [facility] tablet 00:00: MOUTH AT [place] 00 BEDTIME. [facility] Yes [id number] 40mg TAKE 1 [facility] N 40 mg 2-13 TABLET BY [facility] tablet 00:00: MOUTH AT [place] 00 BEDTIME. [facility] Yes [id number] 40mg TAKE 1 [facility] N 40 mg 2-13 TABLET BY [facility] tablet 00:00: MOUTH AT [place] 00 BEDTIME. [facility] Yes [id number] 40mg TAKE 1 [facility] N 40 mg 2-13 TABLET BY [facility] tablet 00:00: MOUTH AT [place] 00 BEDTIME. [facility] Yes [id number] 40mg TAKE 1 [facility] N 40 mg 2-13 TABLET BY [facility] tablet 00:00: MOUTH AT [place] 00 BEDTIME. Medical Branch ATORVASTA 2021-03- No [id number] 40mg TAKE 1 [facility] N 40 mg 2-13 03-09 TABLET BY [facility] tablet 00:00: 00:00 MOUTH AT [place] 00 :00 BEDTIME. Medical Branch baclofen 20 2021-03 Yes [id number] TAKE 1 [facility] mg tablet 2-12 TABLET BY [facility]y o f 00:00: MOUTH 3 [place] 00 TIMES Medical DAILY *MAY Branch IMPAIR ALERTNESS* * baclofen 2021-03 Yes [id number] TAKE 1 [facility] mg tablet 2-12 TABLET BY [facility]y o f 00:00: MOUTH 3 [place] 00 TIMES Medical DAILY *MAY Branch IMPAIR ALERTNESS* * baclofen 2021-03 Yes [id number] TAKE 1 [facility] mg tablet 2-12 TABLET BY [facility] o f 00:00: MOUTH 3 [place] 00 TIMES Medical DAILY *MAY Branch IMPAIR ALERTNESS* * baclofen 2021-03 Yes [id number] TAKE 1 [facility] mg tablet 2-12 TABLET BY [facility] o f 00:00: MOUTH 3 [place] 00 TIMES Medical DAILY *MAY Branch IMPAIR ALERTNESS* * baclofen 2021-03 Yes [id number] TAKE 1 [facility] mg tablet 2-12 TABLET BY [facility] o f 00:00: MOUTH 3 [place] 00 TIMES Medical DAILY *MAY Branch IMPAIR ALERTNESS* * baclofen 2021-03 Yes [id number] TAKE 1 [facility] mg tablet 2-12 TABLET BY [facility] o f 00:00: MOUTH 3 [place] 00 TIMES Medical DAILY *MAY Branch IMPAIR ALERTNESS* * baclofen 2021-03 Yes [id number] TAKE 1 [facility] mg tablet 2-12 TABLET BY [facility] o f 00:00: MOUTH 3 [place] 00 TIMES Medical DAILY *MAY Branch IMPAIR ALERTNESS* * baclofen 2021-03 Yes [id number] TAKE 1 [facility] mg tablet 2-12 TABLET BY [facility] o f 00:00: MOUTH 3 [place] 00 TIMES Medical DAILY *MAY Branch IMPAIR ALERTNESS* * baclofen 2021-03 Yes [id number] TAKE 1 [facility] mg tablet 2-12 TABLET BY [facility] o f 00:00: MOUTH 3 [place] 00 TIMES Medical DAILY *MAY Branch IMPAIR ALERTNESS* * baclofen 2021-03 Yes [id number] TAKE 1 [facility] mg tablet 2-12 TABLET BY [facility] o f 00:00: MOUTH 3 [place] 00 TIMES Medical DAILY *MAY Branch IMPAIR ALERTNESS* * baclofen 2021-03 Yes [id number] TAKE 1 [facility] mg tablet 2-12 TABLET BY [facility] o f 00:00: MOUTH 3 [place] 00 TIMES Medical DAILY *MAY Branch IMPAIR ALERTNESS* * baclofen 2021-03 Yes [id number] TAKE 1 [facility] mg tablet 2-12 TABLET BY [facility] o f 00:00: MOUTH 3 [place] 00 TIMES Medical DAILY *MAY Branch IMPAIR ALERTNESS* * baclofen 2021-03 Yes [id number] TAKE 1 [facility] mg tablet 2-12 TABLET BY [facility] o f 00:00: MOUTH 3 [place] 00 TIMES Medical DAILY *MAY Branch IMPAIR ALERTNESS* * baclofen 2021-03 Yes [id number] TAKE 1 [facility] mg tablet 2-12 TABLET BY [facility] o f 00:00: MOUTH 3 [place] 00 TIMES Medical DAILY *MAY Branch IMPAIR ALERTNESS* * baclofen 2021-03 Yes [id number] TAKE 1 [facility] mg tablet 2-12 TABLET BY [facility] o f 00:00: MOUTH 3 [place] 00 TIMES Medical DAILY *MAY Branch IMPAIR ALERTNESS* * baclofen 2021-03 Yes [id number] TAKE 1 [facility] mg tablet 2-12 TABLET BY [facility] o f 00:00: MOUTH 3 [place] 00 TIMES Medical DAILY *MAY Branch IMPAIR ALERTNESS* * baclofen 2021-03 Yes [id number] TAKE 1 [facility] mg tablet 2-12 TABLET BY [facility]y o f 00:00: MOUTH 3 [place] 00 TIMES Medical DAILY *MAY Branch IMPAIR ALERTNESS* * baclofen 2021-03 Yes [id number] TAKE 1 [facility] mg tablet 2-12 TABLET BY [facility] o f 00:00: MOUTH 3 [place] 00 TIMES Medical DAILY *MAY Branch IMPAIR ALERTNESS* * baclofen 2021-03 Yes [id number] TAKE 1 [facility] mg tablet 2-12 TABLET BY [facility] o f 00:00: MOUTH 3 [place] 00 TIMES Medical DAILY *MAY Branch IMPAIR ALERTNESS* * baclofen 2021-03 Yes [id number] TAKE 1 [facility] mg tablet 2-12 TABLET BY [facility] o f 00:00: MOUTH 3 [place] 00 TIMES Medical DAILY *MAY Branch IMPAIR ALERTNESS* * baclofen 2021-03 Yes [id number] TAKE 1 [facility] mg tablet 2-12 TABLET BY [facility] o f 00:00: MOUTH 3 [place] 00 TIMES Medical DAILY *MAY Branch IMPAIR ALERTNESS* * baclofen 2021-03 Yes [id number] TAKE 1 [facility] mg tablet 2-12 TABLET BY [facility] o f 00:00: MOUTH 3 [place] 00 TIMES Medical DAILY *MAY Branch IMPAIR ALERTNESS* * baclofen 2021-03 Yes [id number] TAKE 1 [facility] mg tablet 2-12 TABLET BY [facility] o f 00:00: MOUTH 3 [place] 00 TIMES Medical DAILY *MAY Branch IMPAIR ALERTNESS* * baclofen 2021-03 Yes [id number] TAKE 1 [facility] mg tablet 2-12 TABLET BY [facility]y o f 00:00: MOUTH 3 [place] 00 TIMES Medical DAILY *MAY Branch IMPAIR ALERTNESS* * baclofen 2021-03 Yes [id number] TAKE 1 [facility] mg tablet 2-12 TABLET BY ity o f 00:00: MOUTH 3 [place] 00 TIMES Medical DAILY *MAY Branch IMPAIR ALERTNESS* * baclofen 2021-03 Yes [id number] TAKE 1 [facility] mg tablet 2-12 TABLET BY ity o f 00:00: MOUTH 3 [place] 00 TIMES Medical DAILY *MAY Branch IMPAIR ALERTNESS* * baclofen 2021-03 Yes [id number] TAKE 1 [facility] mg tablet 2-12 TABLET BY ity o f 00:00: MOUTH 3 [place] 00 TIMES Medical DAILY *MAY Branch IMPAIR ALERTNESS* * baclofen 2021-03 Yes [id number] TAKE 1 [facility] mg tablet 2-12 TABLET BY [facility]y o f 00:00: MOUTH 3 [place] 00 TIMES Medical DAILY *MAY Branch IMPAIR ALERTNESS* * baclofen 2021-03 Yes [id number] TAKE 1 [facility] mg tablet 2-12 TABLET BY [facility]y o f 00:00: MOUTH 3 [place] 00 TIMES Medical DAILY *MAY Branch IMPAIR ALERTNESS* * baclofen 2021-03 Yes [id number] TAKE 1 [facility] mg tablet 2-12 TABLET BY ity o f 00:00: MOUTH 3 [place] 00 TIMES Medical DAILY *MAY Branch IMPAIR ALERTNESS* * baclofen 2021-03 Yes [id number] TAKE 1 [facility] mg tablet 2-12 TABLET BY ity o f 00:00: MOUTH 3 [place] 00 TIMES Medical DAILY *MAY Branch IMPAIR ALERTNESS* * baclofen 2021-03 Yes [id number] TAKE 1 [facility] mg tablet 2-12 TABLET BY ity o f 00:00: MOUTH 3 [place] 00 TIMES Medical DAILY *MAY Branch IMPAIR ALERTNESS* * baclofen 2021-03 Yes [id number] TAKE 1 [facility] mg tablet 2-12 TABLET BY ity o f 00:00: MOUTH 3 [place] 00 TIMES Medical DAILY *MAY Branch IMPAIR ALERTNESS* * baclofen 2021-03 Yes [id number] TAKE 1 [facility] mg tablet 2-12 TABLET BY ity o f 00:00: MOUTH 3 [place] 00 TIMES Medical DAILY *MAY Branch IMPAIR ALERTNESS* * baclofen 2021-03 Yes [id number] TAKE 1 [facility] mg tablet 2-12 TABLET BY ity o f 00:00: MOUTH 3 [place] 00 TIMES Medical DAILY *MAY Branch IMPAIR ALERTNESS* * baclofen 2021-03 Yes [id number] TAKE 1 [facility] mg tablet 2-12 TABLET BY ity o f 00:00: MOUTH 3 [place] 00 TIMES Medical DAILY *MAY Branch IMPAIR ALERTNESS* * baclofen 2021-03 Yes [id number] TAKE 1 [facility] mg tablet 2-12 TABLET BY ity o f 00:00: MOUTH 3 [place] 00 TIMES Medical DAILY *MAY Branch IMPAIR ALERTNESS* * baclofen 2021-03 Yes [id number] TAKE 1 [facility] mg tablet 2-12 TABLET BY ity o f 00:00: MOUTH 3 [place] 00 TIMES Medical DAILY *MAY Branch IMPAIR ALERTNESS* * baclofen 2021-03 Yes [id number] TAKE 1 [facility] mg tablet 2-12 TABLET BY [facility] o f 00:00: MOUTH 3 [place] 00 TIMES Medical DAILY *MAY Branch IMPAIR ALERTNESS* * baclofen 2021-03- No [id number] TAKE 1 [facility] mg tablet 2-12 02-20 TABLET BY [facility] of 00:00: 00:00 MOUTH 3 [place] 00 :00 TIMES Medical DAILY *MAY Branch IMPAIR ALERTNESS* * AMLODIPINE 2021-03 Yes [id number] 10mg TAKE 1 [facility] 10 mg 2-07 TABLET BY [facility] of tablet 00:00: MOUTH [place] 00 EVERY Medical MORNING Branch AMLODIPINE 2021-03 Yes [id number] 10mg TAKE 1 [facility] 10 mg 2-07 TABLET BY [facility] of tablet 00:00: MOUTH [place] 00 EVERY Medical MORNING Branch IBUPROFEN 2021-03 Yes [id number] TAKE 1 [facility] 800 mg 2-07 TABLET BY [facility] of tablet 00:00: MOUTH [place] 00 EVERY 6 Medical HOURS WITH Branch FOOD NEEDED FOR PAIN *DO NOT TAKE ASPIRIN* AMLODIPINE 2021-03 Yes [id number] 10mg TAKE 1 [facility] 10 mg 2-07 TABLET BY [facility] of tablet 00:00: MOUTH [place] 00 EVERY Medical MORNING Branch IBUPROFEN 2021-03 Yes [id number] TAKE 1 [facility] 800 mg 2-07 TABLET BY [facility] of tablet 00:00: MOUTH [place] 00 EVERY 6 Medical HOURS WITH Branch FOOD NEEDED FOR PAIN *DO NOT TAKE ASPIRIN* tiZANidine 2021-03 Yes [id number] 4mg Take 1 [facility] 4 mg tablet 2-07 tablet by [facility] of 00:00: mouth [place] 00 every 6 Medical (six) Branch hours as needed for Pain (scale 4-6). ONETOUCH 2021-03 Yes [id number] USE [facility] reinier VERIO TEST 2-07 DIRECTED ity o f STRIPS 00:00: FOR THREE [place] strip 00 TIMES A Medical DAY BLOOD Branch GLUCOSE MONITORING AMLODIPINE 2021-03 Yes [id number] 10mg TAKE 1 [facility] nivers 10 mg 2-07 TABLET BY ity of tablet 00:00: MOUTH [place] 00 EVERY Medical MORNING Branch IBUPROFEN 2021-03 Yes [id number] TAKE 1 [facility] n[facility] 800 mg 2-07 TABLET BY [facility]y of tablet 00:00: MOUTH [place] 00 EVERY 6 Medical HOURS WITH Branch FOOD NEEDED FOR PAIN *DO NOT TAKE ASPIRIN* tiZANidine 2021-03 Yes [id number] 4mg Take 1 [facility] 4 mg tablet 2-07 tablet by [facility]y of 00:00: mouth [place] 00 every 6 Medical (six) Branch hours as needed for Pain (scale 4-6). AMLODIPINE 2021-03 Yes [id number] 10mg TAKE 1 [facility] nivers 10 mg 2-07 TABLET BY ity of tablet 00:00: MOUTH [place] 00 EVERY Medical MORNING Branch IBUPROFEN 2021-03 Yes [id number] TAKE 1 [facility] 800 mg 2-07 TABLET BY ity of tablet 00:00: MOUTH [place] 00 EVERY 6 Medical HOURS WITH Branch FOOD NEEDED FOR PAIN *DO NOT TAKE ASPIRIN* tiZANidine 2021-03 Yes [id number] 4mg Take 1 [facility] 4 mg tablet 2-07 tablet by ity of 00:00: mouth [place] 00 every 6 Medical (six) Branch hours as needed for Pain (scale 4-6). AMLODIPINE 2021-03 Yes [id number] 10mg TAKE 1 [facility] 10 mg 2-07 TABLET BY ity of tablet 00:00: MOUTH [place] 00 EVERY Medical MORNING Branch IBUPROFEN 2021-03 Yes [id number] TAKE 1 [facility] 800 mg 2-07 TABLET BY ity of tablet 00:00: MOUTH [place] 00 EVERY 6 Medical HOURS WITH Branch FOOD NEEDED FOR PAIN *DO NOT TAKE ASPIRIN* tiZANidine 2021-03 Yes [id number] 4mg Take 1 [facility] 4 mg tablet 2-07 tablet by ity of 00:00: mouth [place] 00 every 6 Medical (six) Branch hours as needed for Pain (scale 4-6). ONETOUCH 2021-03 Yes [id number] USE [facility] VERIO TEST 2-07 DIRECTED ity o f STRIPS 00:00: FOR THREE [place] strip 00 TIMES A Medical DAY BLOOD Branch GLUCOSE MONITORING AMLODIPINE 2021-03 Yes [id number] 10mg TAKE 1 [facility] 10 mg 2-07 TABLET BY ity of tablet 00:00: MOUTH [place] 00 EVERY Medical MORNING Branch IBUPROFEN 2021-03 Yes [id number] TAKE 1 [facility] 800 mg 2-07 TABLET BY ity of tablet 00:00: MOUTH [place] 00 EVERY 6 Medical HOURS WITH Branch FOOD NEEDED FOR PAIN *DO NOT TAKE ASPIRIN* tiZANidine 2021-03 Yes [id number] 4mg Take 1 [facility] 4 mg tablet 2-07 tablet by ity of 00:00: mouth [place] 00 every 6 Medical (six) Branch hours as needed for Pain (scale 4-6). ONETOUCH 2021-03 Yes [id number] USE [facility] VERIO TEST 2-07 DIRECTED ity o f STRIPS 00:00: FOR THREE [place] strip 00 TIMES A Medical DAY BLOOD Branch GLUCOSE MONITORING AMLODIPINE 2021-03 Yes [id number] 10mg TAKE 1 [facility] 10 mg 2-07 TABLET BY ity of tablet 00:00: MOUTH [place] 00 EVERY Medical MORNING Branch IBUPROFEN 2021-03 Yes [id number] TAKE 1 [facility] 800 mg 2-07 TABLET BY ity of tablet 00:00: MOUTH [place] 00 EVERY 6 Medical HOURS WITH Branch FOOD NEEDED FOR PAIN *DO NOT TAKE ASPIRIN* tiZANidine 2021-03 Yes [id number] 4mg Take 1 [facility] 4 mg tablet 2-07 tablet by ity of 00:00: mouth [place] 00 every 6 Medical (six) Branch hours as needed for Pain (scale 4-6). ONETOUCH 2021-03 Yes [id number] USE [facility] VERIO TEST 2-07 DIRECTED ity o f STRIPS 00:00: FOR THREE [place] strip 00 TIMES A Medical DAY BLOOD Branch GLUCOSE MONITORING AMLODIPINE 2021-03 Yes [id number] 10mg TAKE 1 [facility] 10 mg 2-07 TABLET BY ity of tablet 00:00: MOUTH [place] 00 EVERY Medical MORNING Branch IBUPROFEN 2021-03 Yes [id number] TAKE 1 [facility] 800 mg 2-07 TABLET BY ity of tablet 00:00: MOUTH [place] 00 EVERY 6 Medical HOURS WITH Branch FOOD NEEDED FOR PAIN *DO NOT TAKE ASPIRIN* ONETOUCH 2021-03 Yes [id number] USE [facility] VERIO TEST 2-07 DIRECTED ity o f STRIPS 00:00: FOR THREE [place] strip 00 TIMES A Medical DAY BLOOD Branch GLUCOSE MONITORING AMLODIPINE 2021-03 Yes [id number] 10mg TAKE 1 [facility] 10 mg 2-07 TABLET BY ity of tablet 00:00: MOUTH [place] 00 EVERY Medical MORNING Branch IBUPROFEN 2021-03 Yes [id number] TAKE 1 [facility] 800 mg 2-07 TABLET BY ity of tablet 00:00: MOUTH [place] 00 EVERY 6 Medical HOURS WITH Branch FOOD NEEDED FOR PAIN *DO NOT TAKE ASPIRIN* ONETOUCH 2021-03 Yes [id number] USE [facility] VERIO TEST 2-07 DIRECTED ity o f STRIPS 00:00: FOR THREE [place] strip 00 TIMES A Medical DAY BLOOD Branch GLUCOSE MONITORING AMLODIPINE 2021-03 Yes [id number] 10mg TAKE 1 [facility] 10 mg 2-07 TABLET BY ity of tablet 00:00: MOUTH [place] 00 EVERY Medical MORNING Branch IBUPROFEN 2021-03 Yes [id number] TAKE 1 [facility] 800 mg 2-07 TABLET BY ity of tablet 00:00: MOUTH [place] 00 EVERY 6 Medical HOURS WITH Branch FOOD NEEDED FOR PAIN *DO NOT TAKE ASPIRIN* ONETOUCH 2021-03 Yes [id number] USE [facility] VERIO TEST 2-07 DIRECTED ity o f STRIPS 00:00: FOR THREE [place] strip 00 TIMES A Medical DAY BLOOD Branch GLUCOSE MONITORING AMLODIPINE 2021-03 Yes [id number] 10mg TAKE 1 [facility] 10 mg 2-07 TABLET BY ity of tablet 00:00: MOUTH [place] 00 EVERY Medical MORNING Branch IBUPROFEN 2021-03 Yes [id number] TAKE 1 [facility] 800 mg 2-07 TABLET BY ity of tablet 00:00: MOUTH [place] 00 EVERY 6 Medical HOURS WITH Branch FOOD NEEDED FOR PAIN *DO NOT TAKE ASPIRIN* ONETOUCH 2021-03 Yes [id number] USE [facility] VERIO TEST 2-07 DIRECTED ity o f STRIPS 00:00: FOR THREE [place] strip 00 TIMES A Medical DAY BLOOD Branch GLUCOSE MONITORING AMLODIPINE 2021-03 Yes [id number] 10mg TAKE 1 [facility] 10 mg 2-07 TABLET BY ity of tablet 00:00: MOUTH [place] 00 EVERY Medical MORNING Branch IBUPROFEN 2021-03 Yes [id number] TAKE 1 [facility] 800 mg 2-07 TABLET BY ity of tablet 00:00: MOUTH [place] 00 EVERY 6 Medical HOURS WITH Branch FOOD NEEDED FOR PAIN *DO NOT TAKE ASPIRIN* ONETOUCH 2021-03 Yes [id number] USE [facility] VERIO TEST 2-07 DIRECTED ity o f STRIPS 00:00: FOR THREE [place] strip 00 TIMES A Medical DAY BLOOD Branch GLUCOSE MONITORING AMLODIPINE 2021-03 Yes [id number] 10mg TAKE 1 [facility] 10 mg 2-07 TABLET BY ity of tablet 00:00: MOUTH [place] 00 EVERY Medical MORNING Branch ONETOUCH 2021-03 Yes [id number] USE [facility] VERIO TEST 2-07 DIRECTED ity o f STRIPS 00:00: FOR THREE [place] strip 00 TIMES A Medical DAY BLOOD Branch GLUCOSE MONITORING AMLODIPINE 2021-03 Yes [id number] 10mg TAKE 1 [facility] 10 mg 2-07 TABLET BY ity of tablet 00:00: MOUTH 00 EVERY Medical MORNING Branch ONETOUCH 2021-03 Yes [id number] USE [facility] VERIO TEST 2-07 DIRECTED ity o f STRIPS 00:00: FOR THREE [place] strip 00 TIMES A Medical DAY BLOOD Branch GLUCOSE MONITORING AMLODIPINE 2021-03 Yes [id number] 10mg TAKE 1 [facility] 10 mg 2-07 TABLET BY ity of tablet 00:00: MOUTH 00 EVERY Medical MORNING Branch ONETOUCH 2021-03 Yes [id number] USE [facility] VERIO TEST 2-07 DIRECTED ity o f STRIPS 00:00: FOR THREE [place] strip 00 TIMES A Medical DAY BLOOD Branch GLUCOSE MONITORING AMLODIPINE 2021-03 Yes [id number] 10mg TAKE 1 [facility] 10 mg 2-07 TABLET BY ity of tablet 00:00: MOUTH [place] 00 EVERY Medical MORNING Branch ONETOUCH 2021-03 Yes [id number] USE [facility] VERIO TEST 2-07 DIRECTED ity o f STRIPS 00:00: FOR THREE [place] strip 00 TIMES A Medical DAY BLOOD Branch GLUCOSE MONITORING AMLODIPINE 2021-03 Yes [id number] 10mg TAKE 1 [facility] 10 mg 2-07 TABLET BY ity of tablet 00:00: MOUTH [place] 00 EVERY Medical MORNING Branch ONETOUCH 2021-03 Yes [id number] USE [facility] VERIO TEST 2-07 DIRECTED ity o f STRIPS 00:00: FOR THREE [place] strip 00 TIMES A Medical DAY BLOOD Branch GLUCOSE MONITORING AMLODIPINE 2021-03 Yes [id number] 10mg TAKE 1 [facility] 10 mg 2-07 TABLET BY ity of tablet 00:00: MOUTH [place] 00 EVERY Medical MORNING Branch ONETOUCH 2021-03 Yes [id number] USE [facility] VERIO TEST 2-07 DIRECTED ity o f STRIPS 00:00: FOR THREE [place] strip 00 TIMES A Medical DAY BLOOD Branch GLUCOSE MONITORING AMLODIPINE 2021-03 Yes [id number] 10mg TAKE 1 [facility] 10 mg 2-07 TABLET BY ity of tablet 00:00: MOUTH [place] 00 EVERY Medical MORNING Branch ONETOUCH 2021-03 Yes [id number] USE [facility] VERIO TEST 2-07 DIRECTED ity o f STRIPS 00:00: FOR THREE [place] strip 00 TIMES A Medical DAY BLOOD Branch GLUCOSE MONITORING AMLODIPINE 2021-03 Yes [id number] 10mg TAKE 1 [facility] 10 mg 2-07 TABLET BY ity of tablet 00:00: MOUTH [place] 00 EVERY Medical MORNING Branch ONETOUCH 2021-03 Yes [id number] USE [facility] VERIO TEST 2-07 DIRECTED ity o f STRIPS 00:00: FOR THREE [place] strip 00 TIMES A Medical DAY BLOOD Branch GLUCOSE MONITORING AMLODIPINE 2021-03 Yes [id number] 10mg TAKE 1 [facility] 10 mg 2-07 TABLET BY ity of tablet 00:00: MOUTH [place] 00 EVERY Medical MORNING Branch ONETOUCH 2021-03 Yes [id number] USE [facility] VERIO TEST 2-07 DIRECTED ity o f STRIPS 00:00: FOR THREE [place] strip 00 TIMES A Medical DAY BLOOD Branch GLUCOSE MONITORING AMLODIPINE 2021- Yes [id number] 10mg TAKE 1 [facility] 10 mg 2-07 TABLET BY ity of tablet 00:00: MOUTH [place] 00 EVERY Medical MORNING Branch ONETOUCH 2021-03 Yes [id number] USE [facility] VERIO TEST 2-07 DIRECTED ity o f STRIPS 00:00: FOR THREE [place] strip 00 TIMES A Medical DAY BLOOD Branch GLUCOSE MONITORING AMLODIPINE 2021-03 Yes [id number] 10mg TAKE 1 [facility] 10 mg 2-07 TABLET BY ity of tablet 00:00: MOUTH [place] 00 EVERY Medical MORNING Branch ONETOUCH 2021-03 Yes [id number] USE [facility] VERIO TEST 2-07 DIRECTED ity o f STRIPS 00:00: FOR THREE [place] strip 00 TIMES A Medical DAY BLOOD Branch GLUCOSE MONITORING AMLODIPINE 2021- Yes [id number] 10mg TAKE 1 [facility] 10 mg 2-07 TABLET BY ity of tablet 00:00: MOUTH [place] 00 EVERY Medical MORNING Branch ONETOUCH 2021-03 Yes [id number] USE [facility] VERIO TEST 2-07 DIRECTED ity o f STRIPS 00:00: FOR THREE [place] strip 00 TIMES A Medical DAY BLOOD Branch GLUCOSE MONITORING AMLODIPINE 2021- Yes [id number] 10mg TAKE 1 [facility] 10 mg 2-07 TABLET BY ity of tablet 00:00: MOUTH [place] 00 EVERY Medical MORNING Branch ONETOUCH 2021-03 Yes [id number] USE [facility] VERIO TEST 2-07 DIRECTED ity o f STRIPS 00:00: FOR THREE [place] strip 00 TIMES A Medical DAY BLOOD Branch GLUCOSE MONITORING AMLODIPINE 2021- Yes [id number] 10mg TAKE 1 [facility] 10 mg 2-07 TABLET BY ity of tablet 00:00: MOUTH [place] 00 EVERY Medical MORNING Branch ONETOUCH 2021-03 Yes [id number] USE [facility] VERIO TEST 2-07 DIRECTED ity o f STRIPS 00:00: FOR THREE [place] strip 00 TIMES A Medical DAY BLOOD Branch GLUCOSE MONITORING AMLODIPINE 2- Yes [id number] 10mg TAKE 1 [facility] 10 mg 2-07 TABLET BY ity of tablet 00:00: MOUTH [place] 00 EVERY Medical MORNING Branch ONETOUCH 2021-03 Yes [id number] USE [facility] VERIO TEST 2-07 DIRECTED ity o f STRIPS 00:00: FOR THREE [place] strip 00 TIMES A Medical DAY BLOOD Branch GLUCOSE MONITORING AMLODIPINE 2- Yes [id number] 10mg TAKE 1 [facility] 10 mg 2-07 TABLET BY ity of tablet 00:00: MOUTH [place] 00 EVERY Medical MORNING Branch ONETOUCH 2021-03 Yes [id number] USE [facility] VERIO TEST 2-07 DIRECTED ity o f STRIPS 00:00: FOR THREE [place] strip 00 TIMES A Medical DAY BLOOD Branch GLUCOSE MONITORING AMLODIPINE 2021-03 Yes [id number] 10mg TAKE 1 [facility] 10 mg 2-07 TABLET BY ity of tablet 00:00: MOUTH [place] 00 EVERY Medical MORNING Branch ONETOUCH 2021-03 Yes [id number] USE [facility] VERIO TEST 2-07 DIRECTED ity o f STRIPS 00:00: FOR THREE [place] strip 00 TIMES A Medical DAY BLOOD Branch GLUCOSE MONITORING AMLODIPINE 2021-03 Yes [id number] 10mg TAKE 1 [facility] 10 mg 2-07 TABLET BY ity of tablet 00:00: MOUTH 00 EVERY Medical MORNING Branch ONETOUCH 2021-03 Yes [id number] USE [facility] VERIO TEST 2-07 DIRECTED ity o f STRIPS 00:00: FOR THREE [place] strip 00 TIMES A Medical DAY BLOOD Branch GLUCOSE MONITORING AMLODIPINE 2021-03 Yes [id number] 10mg TAKE 1 [facility] 10 mg 2-07 TABLET BY ity of tablet 00:00: MOUTH [place] 00 EVERY Medical MORNING Branch ONETOUCH 2021-03 Yes [id number] USE [facility] VERIO TEST 2-07 DIRECTED ity o f STRIPS 00:00: FOR THREE [place] strip 00 TIMES A Medical DAY BLOOD Branch GLUCOSE MONITORING AMLODIPINE 2021- Yes [id number] 10mg TAKE 1 [facility] 10 mg 2-07 TABLET BY ity of tablet 00:00: MOUTH [place] 00 EVERY Medical MORNING Branch ONETOUCH 2021-03 Yes [id number] USE [facility] VERIO TEST 2-07 DIRECTED ity o f STRIPS 00:00: FOR THREE [place] strip 00 TIMES A Medical DAY BLOOD Branch GLUCOSE MONITORING AMLODIPINE 2021- Yes [id number] 10mg TAKE 1 [facility] 10 mg 2-07 TABLET BY ity of tablet 00:00: MOUTH [place] 00 EVERY Medical MORNING Branch ONETOUCH 2021-03 Yes [id number] USE [facility] VERIO TEST 2-07 DIRECTED ity o f STRIPS 00:00: FOR THREE [place] strip 00 TIMES A Medical DAY BLOOD Branch GLUCOSE MONITORING AMLODIPINE 2021- Yes [id number] 10mg TAKE 1 [facility] 10 mg 2-07 TABLET BY ity of tablet 00:00: MOUTH [place] 00 EVERY Medical MORNING Branch ONETOUCH 2021-03 Yes [id number] USE [facility] VERIO TEST 2-07 DIRECTED ity o f STRIPS 00:00: FOR THREE [place] strip 00 TIMES A Medical DAY BLOOD Branch GLUCOSE MONITORING AMLODIPINE 2021-03 Yes [id number] 10mg TAKE 1 [facility] 10 mg 2-07 TABLET BY ity of tablet 00:00: MOUTH [place] 00 EVERY Medical MORNING Branch AMLODIPINE 2021- Yes [id number] 10mg TAKE 1 [facility] 10 mg 2-07 TABLET BY ity of tablet 00:00: [facility] 00 EVERY Medical MORNING Branch AMLODIPINE 2021- Yes [id number] 10mg TAKE 1 [facility] n[facility] 10 mg 2-07 TABLET BY ity of tablet 00:00: MOUTH [place] 00 EVERY Medical MORNING Branch AMLODIPINE 2021-03 Yes [id number] 10mg TAKE 1 [facility] 10 mg 2-07 TABLET BY ity of tablet 00:00: [facility] EVERY Medical MORNING Branch AMLODIPINE 2021- Yes [id number] 10mg TAKE 1 [facility] nivers 10 mg 2-07 TABLET BY ity of tablet 00:00: [facility] EVERY Medical MORNING Branch AMLODIPINE 2021- Yes [id number] 10mg TAKE 1 [facility] n[facility] 10 mg 2-07 TABLET BY ity of tablet 00:00: MOUTH [place] EVERY Medical MORNING Branch AMLODIPINE 2021- Yes [id number] 10mg TAKE 1 [facility] 10 mg 2-07 TABLET BY ity of tablet 00:00: [facility] 00 EVERY Medical MORNING Branch AMLODIPINE 2- Yes [id number] 10mg TAKE 1 [facility] nivers 10 mg 2-07 TABLET BY ity of tablet 00:00: [facility] EVERY Medical MORNING Branch AMLODIPINE 2- Yes [id number] 10mg TAKE 1 [facility] nivers 10 mg 2-07 TABLET BY ity of tablet 00:00: [facility] 00 EVERY Medical MORNING Branch AMLODIPINE 2- Yes [id number] 10mg TAKE 1 [facility] n[facility] 10 mg 2-07 TABLET BY ity of tablet 00:00: MOUTH [place] 00 EVERY Medical MORNING Branch AMLODIPINE 2- Yes [id number] 10mg TAKE 1 [facility] 10 mg 2-07 TABLET BY ity of tablet 00:00: [facility] 00 EVERY Medical MORNING Branch AMLODIPINE 2- Yes [id number] 10mg TAKE 1 [facility] n[facility] 10 mg 2-07 TABLET BY ity of tablet 00:00: [facility] 00 EVERY Medical MORNING Branch AMLODIPINE 2- Yes [id number] 10mg TAKE 1 [facility] 10 mg 2-07 TABLET BY ity of tablet 00:00: MOUTH [place] 00 EVERY Medical MORNING Branch AMLODIPINE 2021-03 Yes [id number] 10mg TAKE 1 [facility] 10 mg 2-07 TABLET BY ity of tablet 00:00: MOUTH [place] 00 EVERY Medical MORNING Branch AMLODIPINE 2021-03 Yes [id number] 10mg TAKE 1 [facility] 10 mg 2- TABLET BY ity of tablet 00:00: MOUTH [place] 00 EVERY Medical MORNING Branch AMLODIPINE 2021-03- No [id number] 10mg TAKE 1 [facility] 10 mg 2-09 22- TABLET BY ity of tablet 00:00: 00:00 MOUTH [place] 00 :00 EVERY Medical MORNING Branch ONETOUCH 2021-03- No [id number] USE [facility] VERIO TEST 04-29 DIRECTED ity of STRIPS 00:00: 00:00 FOR THREE [place] strip 00 :00 TIMES A Medical DAY BLOOD Branch GLUCOSE MONITORING IBUPROFEN 2021-03- No [id number] TAKE 1 [facility] 800 mg 04-29 TABLET BY ity of tablet 00:00: 00:00 MOUTH [place] 00 :00 EVERY 6 Medical HOURS WITH Branch FOOD NEEDED FOR PAIN *DO NOT TAKE ASPIRIN* IBUPROFEN 2021-03- No [id number] TAKE 1 [facility] 800 mg 04-29 TABLET BY ity of tablet 00:00: 00:00 MOUTH [place] 00 :00 EVERY 6 Medical HOURS WITH Branch FOOD NEEDED FOR PAIN *DO NOT TAKE ASPIRIN* IBUPROFEN 2021-03- No [id number] TAKE 1 [facility] 800 mg 04-29 TABLET BY ity of tablet 00:00: 00:00 MOUTH [place] 00 :00 EVERY 6 Medical HOURS WITH Branch FOOD NEEDED FOR PAIN *DO NOT TAKE ASPIRIN* tiZANidine 2021-03- No [id number] 4mg Take 1 [facility] 4 mg tablet 04-29 tablet by it y of 00:00: 00:00 mouth [place] 00 :00 every 6 Medical (six) Branch hours as needed for Pain (scale 4-6). Insulin 2021-03 Yes [id number] USE [facility] [place], 2- DIRECTED ity of Disposable, 00:00: FOR [place] (SURE 00 INSULIN Medical COMFORT PEN ADMINISTRA Br anch NEEDLE) 32 TION gauge x 5/32" Ndle Insulin 2021-03 Yes [id number] USE [facility] [place], 2-05 DIRECTED ity of Disposable, 00:00: FOR [place] (SURE 00 INSULIN Medical COMFORT PEN ADMINISTRA Br anch NEEDLE) 32 TION gauge x 5/32" Ndle Insulin 2021-03 Yes [id number] USE [facility] [place], 2-05 DIRECTED ity of Disposable, 00:00: FOR [place] (SURE 00 INSULIN Medical COMFORT PEN ADMINISTRA Br anch NEEDLE) 32 TION gauge x 5/32" Ndle Insulin 2021-03 Yes [id number] USE [facility] [place], 2-05 DIRECTED ity of Disposable, 00:00: FOR [place] (SURE 00 INSULIN Medical COMFORT PEN ADMINISTRA Br anch NEEDLE) 32 TION gauge x 5/32" Ndle Insulin 2021-03 Yes [id number] USE [facility] [place], 2-05 DIRECTED ity of Disposable, 00:00: FOR [place] (SURE 00 INSULIN Medical COMFORT PEN ADMINISTRA Br anch NEEDLE) 32 TION gauge x 5/32" Ndle Insulin 2021-03 Yes [id number] USE [facility] [place], 2-05 DIRECTED ity of Disposable, 00:00: FOR [place] (SURE 00 INSULIN Medical COMFORT PEN ADMINISTRA Br anch NEEDLE) 32 TION gauge x 5/32" Ndle Insulin 2021-03 Yes [id number] USE [facility] [place], 2-05 DIRECTED ity of Disposable, 00:00: FOR [place] (SURE 00 INSULIN Medical COMFORT PEN ADMINISTRA Br anch NEEDLE) 32 TION gauge x 5/32" Ndle Insulin 2021-03 Yes [id number] USE [facility] [place], 2-05 DIRECTED ity of Disposable, 00:00: FOR [place] (SURE 00 INSULIN Medical COMFORT PEN ADMINISTRA Br anch NEEDLE) 32 TION gauge x 5/32" Ndle Insulin 2021-03 Yes [id number] USE [facility] [place], 2-05 DIRECTED ity of Disposable, 00:00: FOR [place] (SURE 00 INSULIN Medical COMFORT PEN ADMINISTRA Br anch NEEDLE) 32 TION gauge x 5/32" Ndle Insulin 2021-03 Yes [id number] USE [facility] [place], 2-05 DIRECTED ity of Disposable, 00:00: FOR [place] (SURE 00 INSULIN Medical COMFORT PEN ADMINISTRA Br anch NEEDLE) 32 TION gauge x 5/32" Ndle Insulin 2021-03 Yes [id number] USE [facility] [place], 2-05 DIRECTED ity of Disposable, 00:00: FOR [place] (SURE 00 INSULIN Medical COMFORT PEN ADMINISTRA Br anch NEEDLE) 32 TION gauge x 5/32" Ndle Insulin 2021-03 Yes [id number] USE [facility] [place], 2-05 DIRECTED ity of Disposable, 00:00: FOR [place] (SURE 00 INSULIN Medical COMFORT PEN ADMINISTRA Br anch NEEDLE) 32 TION gauge x 5/32" Ndle Insulin 2021-03 Yes [id number] USE [facility] [place], 2-05 DIRECTED ity of Disposable, 00:00: FOR [place] (SURE 00 INSULIN Medical COMFORT PEN ADMINISTRA Br anch NEEDLE) 32 TION gauge x 5/32" Ndle Insulin 2021-03 Yes [id number] USE [facility] [place], 2-05 DIRECTED ity of Disposable, 00:00: FOR [place] (SURE 00 INSULIN Medical COMFORT PEN ADMINISTRA Br anch NEEDLE) 32 TION gauge x 5/32" Ndle Insulin 2021-03 Yes [id number] USE [facility] [place], 2-05 DIRECTED ity of Disposable, 00:00: FOR [place] (SURE 00 INSULIN Medical COMFORT PEN ADMINISTRA Br anch NEEDLE) 32 TION gauge x 5/32" Ndle Insulin 2021-03 Yes [id number] USE [facility] [place], 2-05 DIRECTED ity of Disposable, 00:00: FOR [place] (SURE 00 INSULIN Medical COMFORT PEN ADMINISTRA Br anch NEEDLE) 32 TION gauge x 5/32" Ndle Insulin 2021-03 Yes [id number] USE [facility] [place], 2-05 DIRECTED ity of Disposable, 00:00: FOR [place] (SURE 00 INSULIN Medical COMFORT PEN ADMINISTRA Br anch NEEDLE) 32 TION gauge x 5/32" Ndle Insulin 2021-03 Yes [id number] USE [facility] [place], 2-05 DIRECTED ity of Disposable, 00:00: FOR [place] (SURE 00 INSULIN Medical COMFORT PEN ADMINISTRA Br anch NEEDLE) 32 TION gauge x 5/32" Ndle Insulin 2021-03 Yes [id number] USE [facility] [place], 2-05 DIRECTED ity of Disposable, 00:00: FOR [place] (SURE 00 INSULIN Medical COMFORT PEN ADMINISTRA Br anch NEEDLE) 32 TION gauge x 5/32" Ndle Insulin 2021-03 Yes [id number] USE [facility] [place], 2-05 DIRECTED ity of Disposable, 00:00: FOR [place] (SURE 00 INSULIN Medical COMFORT PEN ADMINISTRA Br anch NEEDLE) 32 TION gauge x 5/32" Ndle Insulin 2021-03 Yes [id number] USE [facility] [place], 2-05 DIRECTED ity of Disposable, 00:00: FOR [place] (SURE 00 INSULIN Medical COMFORT PEN ADMINISTRA Br anch NEEDLE) 32 TION gauge x 5/32" Ndle Insulin 2021-03- No [id number] USE Un [facility] [place], 2-05 03-25 DIRECTED ity of Disposable, 00:00: 00:00 FOR [place] (SURE 00 :00 INSULIN Medical COMFORT PEN ADMINISTRA Br anch NEEDLE) 32 TION gauge x 5/32" Ndle POTASSIUM 2021-03 Yes [id number] TAKE 1 [facility] CHLORIDE 10 1-28 TABLET BY ity of mEq CR 00:00: MOUTH [place] tablet 00 DAILY WITH Medical A GLASS OF Branch WATER SULFAMETHOX 2021-03 Yes [id number] TAKE 1 [facility] AZOLE-TRIME 1-28 TABLET BY ity of THOPRIM 00:00: MOUTH 2 [place] 800-160 mg 00 TIMES Medical per tablet DAILY WITH Bra nch A GLASS OF WATER POTASSIUM 2021-03 Yes [id number] TAKE 1 [facility] CHLORIDE 10 1-28 TABLET BY ity of mEq CR 00:00: MOUTH [place] tablet 00 DAILY WITH Medical A GLASS OF Branch WATER SULFAMETHOX 2021-03 Yes [id number] TAKE 1 [facility] AZOLE-TRIME 1-28 TABLET BY ity of THOPRIM 00:00: MOUTH 2 [place] 800-160 mg 00 TIMES Medical per tablet DAILY WITH Bra nch A GLASS OF WATER PROMETHAZIN 2021-03 Yes [id number] TAKE 1 [facility] E 25 mg 1-28 TABLET BY ity of tablet 00:00: MOUTH [place] 00 EVERY 6 Medical HOURS Branch NEEDED FOR NAUSEA AND VOMITING *MAY IMPAIR ALERTNESS* * POTASSIUM 2021-03 Yes [id number] TAKE 1 [facility] CHLORIDE 10 1-28 TABLET BY ity of mEq CR 00:00: MOUTH [place] tablet 00 DAILY WITH Medical A GLASS OF Branch WATER SULFAMETHOX 2021-03 Yes [id number] TAKE 1 [facility] AZOLE-TRIME 1-28 TABLET BY ity of THOPRIM 00:00: MOUTH 2 [place] 800-160 mg 00 TIMES Medical per tablet DAILY WITH Bra nch A GLASS OF WATER PROMETHAZIN 2021-03 Yes [id number] TAKE 1 [facility] E 25 mg 1-28 TABLET BY ity of tablet 00:00: MOUTH [place] 00 EVERY 6 Medical HOURS Branch NEEDED FOR NAUSEA AND VOMITING *MAY IMPAIR ALERTNESS* * POTASSIUM 2021-03 Yes [id number] TAKE 1 [facility] CHLORIDE 10 1-28 TABLET BY ity of mEq CR 00:00: MOUTH [place] tablet 00 DAILY WITH Medical A GLASS OF Branch WATER SULFAMETHOX 2021-03 Yes [id number] TAKE 1 [facility] AZOLE-TRIME 1-28 TABLET BY ity of THOPRIM 00:00: MOUTH 2 [place] 800-160 mg 00 TIMES Medical per tablet DAILY WITH Bra [facility] A GLASS OF WATER PROMETHAZIN 2021-03 Yes [id number] TAKE 1 [facility] E 25 mg 1-28 TABLET BY ity of tablet 00:00: MOUTH [place] 00 EVERY 6 Medical HOURS Branch NEEDED FOR NAUSEA AND VOMITING *MAY IMPAIR ALERTNESS* * POTASSIUM 2021-03 Yes [id number] TAKE 1 [facility] CHLORIDE 10 1-28 TABLET BY ity of mEq CR 00:00: MOUTH [place] tablet 00 DAILY WITH Medical A GLASS OF Branch WATER SULFAMETHOX 2021-03 Yes [id number] TAKE 1 [facility] AZOLE-TRIME 1-28 TABLET BY ity of THOPRIM 00:00: MOUTH 2 [place] 800-160 mg 00 TIMES Medical per tablet DAILY WITH Bra [facility] A GLASS OF WATER PROMETHAZIN 2021-03 Yes [id number] TAKE 1 [facility] E 25 mg 1-28 TABLET BY ity of tablet 00:00: MOUTH [place] 00 EVERY 6 Medical HOURS Branch NEEDED FOR NAUSEA AND VOMITING *MAY IMPAIR ALERTNESS* * POTASSIUM 2021-03 Yes [id number] TAKE 1 [facility] CHLORIDE 10 1-28 TABLET BY ity of mEq CR 00:00: MOUTH [place] tablet 00 DAILY WITH Medical A GLASS OF Branch WATER SULFAMETHOX 2021-03 Yes [id number] TAKE 1 [facility] AZOLE-TRIME 1-28 TABLET BY ity of THOPRIM 00:00: MOUTH 2 [place] 800-160 mg 00 TIMES Medical per tablet DAILY WITH Bra [facility] A GLASS OF WATER PROMETHAZIN 2021-03 Yes [id number] TAKE 1 [facility] E 25 mg 1-28 TABLET BY ity of tablet 00:00: MOUTH [place] 00 EVERY 6 Medical HOURS Branch NEEDED FOR NAUSEA AND VOMITING *MAY IMPAIR ALERTNESS* * POTASSIUM 2021-03 Yes [id number] TAKE 1 [facility] CHLORIDE 10 1-28 TABLET BY ity of mEq CR 00:00: MOUTH [place] tablet 00 DAILY WITH Medical A GLASS OF Branch WATER SULFAMETHOX 2021-03 Yes [id number] TAKE 1 [facility] AZOLE-TRIME 1-28 TABLET BY ity of THOPRIM 00:00: MOUTH 2 [place] 800-160 mg 00 TIMES Medical per tablet DAILY WITH Bra nch A GLASS OF WATER PROMETHAZIN 2021-03 Yes [id number] TAKE 1 [facility] E 25 mg 1-28 TABLET BY ity of tablet 00:00: MOUTH [place] 00 EVERY 6 Medical HOURS Branch NEEDED FOR NAUSEA AND VOMITING *MAY IMPAIR ALERTNESS* * POTASSIUM 2021-03 Yes [id number] TAKE 1 [facility] CHLORIDE 10 1-28 TABLET BY ity of mEq CR 00:00: MOUTH [place] tablet 00 DAILY WITH Medical A GLASS OF Branch WATER SULFAMETHOX 2021-03 Yes [id number] TAKE 1 [facility] AZOLE-TRIME 1-28 TABLET BY ity of THOPRIM 00:00: MOUTH 2 [place] 800-160 mg 00 TIMES Medical per tablet DAILY WITH Bra nch A GLASS OF WATER PROMETHAZIN 2021-03 Yes [id number] TAKE 1 [facility] E 25 mg 1-28 TABLET BY ity of tablet 00:00: MOUTH [place] 00 EVERY 6 Medical HOURS Branch NEEDED FOR NAUSEA AND VOMITING *MAY IMPAIR ALERTNESS* * POTASSIUM 2021-03 Yes [id number] TAKE 1 [facility] CHLORIDE 10 1-28 TABLET BY ity of mEq CR 00:00: MOUTH [place] tablet 00 DAILY WITH Medical A GLASS OF Branch WATER SULFAMETHOX 2021-03 Yes [id number] TAKE 1 [facility] AZOLE-TRIME 1-28 TABLET BY ity of THOPRIM 00:00: MOUTH 2 [place] 800-160 mg 00 TIMES Medical per tablet DAILY WITH Bra nch A GLASS OF WATER PROMETHAZIN 2021-03 Yes [id number] TAKE 1 [facility] E 25 mg 1-28 TABLET BY ity of tablet 00:00: MOUTH [place] 00 EVERY 6 Medical HOURS Branch NEEDED FOR NAUSEA AND VOMITING *MAY IMPAIR ALERTNESS* * POTASSIUM 2021-03 Yes [id number] TAKE 1 [facility] CHLORIDE 10 1-28 TABLET BY ity of mEq CR 00:00: MOUTH [place] tablet 00 DAILY WITH Medical A GLASS OF Branch WATER SULFAMETHOX 2021-03 Yes [id number] TAKE 1 [facility] AZOLE-TRIME 1-28 TABLET BY ity of THOPRIM 00:00: MOUTH 2 [place] 800-160 mg 00 TIMES Medical per tablet DAILY WITH Bra nch A GLASS OF WATER PROMETHAZIN 2021-03 Yes [id number] TAKE 1 [facility] E 25 mg 1-28 TABLET BY ity of tablet 00:00: MOUTH [place] 00 EVERY 6 Medical HOURS Branch NEEDED FOR NAUSEA AND VOMITING *MAY IMPAIR ALERTNESS* * POTASSIUM 2021-03 Yes [id number] TAKE 1 [facility] CHLORIDE 10 1-28 TABLET BY ity of mEq CR 00:00: MOUTH [place] tablet 00 DAILY WITH Medical A GLASS OF Branch WATER SULFAMETHOX 2021-03 Yes [id number] TAKE 1 [facility] AZOLE-TRIME 1-28 TABLET BY ity of THOPRIM 00:00: MOUTH 2 [place] 800-160 mg 00 TIMES Medical per tablet DAILY WITH Bra nch A GLASS OF WATER PROMETHAZIN 2021-03 Yes [id number] TAKE 1 [facility] E 25 mg 1-28 TABLET BY ity of tablet 00:00: MOUTH [place] 00 EVERY 6 Medical HOURS Branch NEEDED FOR NAUSEA AND VOMITING *MAY IMPAIR ALERTNESS* * POTASSIUM 2021-03 Yes [id number] TAKE 1 [facility] CHLORIDE 10 1-28 TABLET BY ity of mEq CR 00:00: MOUTH [place] tablet 00 DAILY WITH Medical A GLASS OF Branch WATER SULFAMETHOX 2021-03 Yes [id number] TAKE 1 [facility] AZOLE-TRIME 1-28 TABLET BY ity of THOPRIM 00:00: MOUTH 2 [place] 800-160 mg 00 TIMES Medical per tablet DAILY WITH Bra nch A GLASS OF WATER PROMETHAZIN 2021-03 Yes [id number] TAKE 1 [facility] E 25 mg 1-28 TABLET BY ity of tablet 00:00: MOUTH [place] 00 EVERY 6 Medical HOURS Branch NEEDED FOR NAUSEA AND VOMITING *MAY IMPAIR ALERTNESS* * POTASSIUM 2021-03 Yes [id number] TAKE 1 [facility] CHLORIDE 10 1-28 TABLET BY ity of mEq CR 00:00: MOUTH [place] tablet 00 DAILY WITH Medical A GLASS OF Branch WATER SULFAMETHOX 2021-03 Yes [id number] TAKE 1 [facility] AZOLE-TRIME 1-28 TABLET BY ity of THOPRIM 00:00: MOUTH 2 [place] 800-160 mg 00 TIMES Medical per tablet DAILY WITH Bra nch A GLASS OF WATER PROMETHAZIN 2021-03 Yes [id number] TAKE 1 [facility] E 25 mg 1-28 TABLET BY ity of tablet 00:00: MOUTH [place] 00 EVERY 6 Medical HOURS Branch NEEDED FOR NAUSEA AND VOMITING *MAY IMPAIR ALERTNESS* * POTASSIUM 2021-03 Yes [id number] TAKE 1 [facility] CHLORIDE 10 1-28 TABLET BY ity of mEq CR 00:00: MOUTH [place] tablet 00 DAILY WITH Medical A GLASS OF Branch WATER SULFAMETHOX 2021-03 Yes [id number] TAKE 1 [facility] AZOLE-TRIME 1-28 TABLET BY ity of THOPRIM 00:00: MOUTH 2 [place] 800-160 mg 00 TIMES Medical per tablet DAILY WITH Bra nch A GLASS OF WATER PROMETHAZIN 2021-03 Yes [id number] TAKE 1 [facility] E 25 mg 1-28 TABLET BY ity of tablet 00:00: MOUTH [place] 00 EVERY 6 Medical HOURS Branch NEEDED FOR NAUSEA AND VOMITING *MAY IMPAIR ALERTNESS* * POTASSIUM 2021-03 Yes [id number] TAKE 1 [facility] CHLORIDE 10 1-28 TABLET BY ity of mEq CR 00:00: MOUTH [place] tablet 00 DAILY WITH Medical A GLASS OF Branch WATER SULFAMETHOX 2021-03 Yes [id number] TAKE 1 [facility] AZOLE-TRIME 1-28 TABLET BY ity of THOPRIM 00:00: MOUTH 2 [place] 800-160 mg 00 TIMES Medical per tablet DAILY WITH Bra nch A GLASS OF WATER PROMETHAZIN 2021-03 Yes [id number] TAKE 1 [facility] E 25 mg 1-28 TABLET BY ity of tablet 00:00: MOUTH [place] 00 EVERY 6 Medical HOURS Branch NEEDED FOR NAUSEA AND VOMITING *MAY IMPAIR ALERTNESS* * POTASSIUM 2021-03 Yes [id number] TAKE 1 [facility] CHLORIDE 10 1-28 TABLET BY ity of mEq CR 00:00: MOUTH [place] tablet 00 DAILY WITH Medical A GLASS OF Branch WATER SULFAMETHOX 2021-03 Yes [id number] TAKE 1 [facility] AZOLE-TRIME 1-28 TABLET BY ity of THOPRIM 00:00: MOUTH 2 [place] 800-160 mg 00 TIMES Medical per tablet DAILY WITH Bra nch A GLASS OF WATER PROMETHAZIN 2021-03 Yes [id number] TAKE 1 [facility] E 25 mg 1-28 TABLET BY ity of tablet 00:00: MOUTH [place] 00 EVERY 6 Medical HOURS Branch NEEDED FOR NAUSEA AND VOMITING *MAY IMPAIR ALERTNESS* * POTASSIUM 2021-03 Yes [id number] TAKE 1 [facility] CHLORIDE 10 1-28 TABLET BY ity of mEq CR 00:00: MOUTH [place] tablet 00 DAILY WITH Medical A GLASS OF Branch WATER PROMETHAZIN 2021-03 Yes [id number] TAKE 1 [facility] E 25 mg 1-28 TABLET BY ity of tablet 00:00: MOUTH [place] 00 EVERY 6 Medical HOURS Branch NEEDED FOR NAUSEA AND VOMITING *MAY IMPAIR ALERTNESS* * POTASSIUM 2021-03 Yes [id number] TAKE 1 [facility] CHLORIDE 10 1-28 TABLET BY ity of mEq CR 00:00: MOUTH [place] tablet 00 DAILY WITH Medical A GLASS OF Branch WATER PROMETHAZIN 2021-03 Yes [id number] TAKE 1 [facility] E 25 mg 1-28 TABLET BY ity of tablet 00:00: MOUTH [place] 00 EVERY 6 Medical HOURS Branch NEEDED FOR NAUSEA AND VOMITING *MAY IMPAIR ALERTNESS* * POTASSIUM 2021-03 Yes [id number] TAKE 1 [facility] CHLORIDE 10 1-28 TABLET BY ity of mEq CR 00:00: MOUTH [place] tablet 00 DAILY WITH Medical A GLASS OF Branch WATER PROMETHAZIN 2021-03 Yes [id number] TAKE 1 [facility] E 25 mg 1-28 TABLET BY ity of tablet 00:00: MOUTH [place] 00 EVERY 6 Medical HOURS Branch NEEDED FOR NAUSEA AND VOMITING *MAY IMPAIR ALERTNESS* * POTASSIUM 2021-03 Yes [id number] TAKE 1 [facility] CHLORIDE 10 1-28 TABLET BY ity of mEq CR 00:00: MOUTH [place] tablet 00 DAILY WITH Medical A GLASS OF Branch WATER PROMETHAZIN 2021-03 Yes [id number] TAKE 1 [facility] E 25 mg 1-28 TABLET BY ity of tablet 00:00: MOUTH [place] 00 EVERY 6 Medical HOURS Branch NEEDED FOR NAUSEA AND VOMITING *MAY IMPAIR ALERTNESS* * PROMETHAZIN 2021-03 Yes [id number] TAKE 1 [facility] E 25 mg 1-28 TABLET BY ity of tablet 00:00: MOUTH [place] 00 EVERY 6 Medical HOURS Branch NEEDED FOR NAUSEA AND VOMITING *MAY IMPAIR ALERTNESS* * PROMETHAZIN 2021-03 Yes [id number] TAKE 1 [facility] E 25 mg 1-28 TABLET BY ity of tablet 00:00: MOUTH [place] 00 EVERY 6 Medical HOURS Branch NEEDED FOR NAUSEA AND VOMITING *MAY IMPAIR ALERTNESS* * PROMETHAZIN 2021-03 Yes [id number] TAKE 1 [facility] E 25 mg 1-28 TABLET BY ity of tablet 00:00: MOUTH [place] 00 EVERY 6 Medical HOURS Branch NEEDED FOR NAUSEA AND VOMITING *MAY IMPAIR ALERTNESS* * PROMETHAZIN 2021-03 Yes [id number] TAKE 1 [facility] E 25 mg 1-28 TABLET BY ity of tablet 00:00: MOUTH [place] 00 EVERY 6 Medical HOURS Branch NEEDED FOR NAUSEA AND VOMITING *MAY IMPAIR ALERTNESS* * PROMETHAZIN 2021-03 Yes [id number] TAKE 1 [facility] E 25 mg 1-28 TABLET BY ity of tablet 00:00: MOUTH [place] 00 EVERY 6 Medical HOURS Branch NEEDED FOR NAUSEA AND VOMITING *MAY IMPAIR ALERTNESS* * PROMETHAZIN 2021-03 Yes [id number] TAKE 1 [facility] E 25 mg 1-28 TABLET BY ity of tablet 00:00: MOUTH [place] 00 EVERY 6 Medical HOURS Branch NEEDED FOR NAUSEA AND VOMITING *MAY IMPAIR ALERTNESS* * PROMETHAZIN 2021-03 Yes [id number] TAKE 1 [facility] E 25 mg 1-28 TABLET BY ity of tablet 00:00: MOUTH [place] 00 EVERY 6 Medical HOURS Branch NEEDED FOR NAUSEA AND VOMITING *MAY IMPAIR ALERTNESS* * PROMETHAZIN 2021-03 Yes [id number] TAKE 1 [facility] E 25 mg 1-28 TABLET BY ity of tablet 00:00: MOUTH [place] 00 EVERY 6 Medical HOURS Branch NEEDED FOR NAUSEA AND VOMITING *MAY IMPAIR ALERTNESS* * PROMETHAZIN 2021-03 Yes [id number] TAKE 1 [facility] E 25 mg 1-28 TABLET BY ity of tablet 00:00: MOUTH [place] 00 EVERY 6 Medical HOURS Branch NEEDED FOR NAUSEA AND VOMITING *MAY IMPAIR ALERTNESS* * PROMETHAZIN 2021-03 Yes [id number] TAKE 1 [facility] E 25 mg 1-28 TABLET BY ity of tablet 00:00: MOUTH [place] 00 EVERY 6 Medical HOURS Branch NEEDED FOR NAUSEA AND VOMITING *MAY IMPAIR ALERTNESS* * PROMETHAZIN 2021-03 Yes [id number] TAKE 1 [facility] E 25 mg 1-28 TABLET BY ity of tablet 00:00: MOUTH [place] 00 EVERY 6 Medical HOURS Branch NEEDED FOR NAUSEA AND VOMITING *MAY IMPAIR ALERTNESS* * PROMETHAZIN 2021-03 Yes [id number] TAKE 1 [facility] E 25 mg 1-28 TABLET BY ity of tablet 00:00: MOUTH [place] 00 EVERY 6 Medical HOURS Branch NEEDED FOR NAUSEA AND VOMITING *MAY IMPAIR ALERTNESS* * PROMETHAZIN 2021-03 Yes [id number] TAKE 1 [facility] E 25 mg 1-28 TABLET BY ity of tablet 00:00: MOUTH [place] 00 EVERY 6 Medical HOURS Branch NEEDED FOR NAUSEA AND VOMITING *MAY IMPAIR ALERTNESS* * PROMETHAZIN 2021-03 Yes [id number] TAKE 1 [facility] E 25 mg 1-28 TABLET BY ity of tablet 00:00: MOUTH [place] 00 EVERY 6 Medical HOURS Branch NEEDED FOR NAUSEA AND VOMITING *MAY IMPAIR ALERTNESS* * PROMETHAZIN 2021-03 Yes [id number] TAKE 1 [facility] E 25 mg 1-28 TABLET BY ity of tablet 00:00: MOUTH [place] 00 EVERY 6 Medical HOURS Branch NEEDED FOR NAUSEA AND VOMITING *MAY IMPAIR ALERTNESS* * PROMETHAZIN 2021-03 Yes [id number] TAKE 1 [facility] E 25 mg 1-28 TABLET BY ity of tablet 00:00: MOUTH [place] 00 EVERY 6 Medical HOURS Branch NEEDED FOR NAUSEA AND VOMITING *MAY IMPAIR ALERTNESS* * PROMETHAZIN 2021-03 Yes [id number] TAKE 1 [facility] E 25 mg 1-28 TABLET BY ity of tablet 00:00: MOUTH [place] 00 EVERY 6 Medical HOURS Branch NEEDED FOR NAUSEA AND VOMITING *MAY IMPAIR ALERTNESS* * PROMETHAZIN 2021-03 Yes [id number] TAKE 1 [facility] E 25 mg 1-28 TABLET BY ity of tablet 00:00: MOUTH [place] 00 EVERY 6 Medical HOURS Branch NEEDED FOR NAUSEA AND VOMITING *MAY IMPAIR ALERTNESS* * PROMETHAZIN 2021-03- No [id number] TAKE 1 [facility] E 25 mg 1-28 -30 TABLET BY ity of tablet 00:00: 00:00 MOUTH [place] 00 :00 EVERY 6 Medical HOURS Branch NEEDED FOR NAUSEA AND VOMITING *MAY IMPAIR ALERTNESS* * POTASSIUM 2021-03- No [id number] TAKE 1 U nivers CHLORIDE 10 04-19 TABLET BY it y of mEq CR 00:00: 00:00 MOUTH [place] tablet 00 :00 DAILY WITH Medical A GLASS OF Branch WATER POTASSIUM 2021-03- No [id number] TAKE 1 U nivers CHLORIDE 10 04-19 TABLET BY it y of mEq CR 00:00: 00:00 MOUTH [place] tablet 00 :00 DAILY WITH Medical A GLASS OF Branch WATER POTASSIUM 2021-03- No [id number] TAKE 1 [facility] nivers CHLORIDE 10 04-19 TABLET BY it y of mEq CR 00:00: 00:00 MOUTH [place] tablet 00 :00 DAILY WITH Medical A GLASS OF Branch WATER SULFAMETHOX 2021-03- No [id number] TAKE 1 [facility] AZOLE-TRIME 1-28 12-23 TABLET BY it y of THOPRIM 00:00: 00:00 MOUTH 2 [place] 800-160 mg 00 :00 TIMES Medical per tablet DAILY WITH Bra nch A GLASS OF WATER SULFAMETHOX 2021-03- No [id number] TAKE 1 [facility] AZOLE-TRIME 1-28 12-23 TABLET BY it y of THOPRIM 00:00: 00:00 MOUTH 2 [place] 800-160 mg 00 :00 TIMES Medical per tablet DAILY WITH Bra nch A GLASS OF WATER SULFAMETHOX 2021-03- No [id number] TAKE 1 [facility] AZOLE-TRIME -28 12-23 TABLET BY it y of THOPRIM 00:00: 00:00 MOUTH 2 [place] 800-160 mg 00 :00 TIMES Medical per tablet DAILY WITH Bra nch A GLASS OF WATER HYDROcodone 2021-03 Yes [id number] TAKE 1 [facility] ers -acetaminop 1-23 TABLET BY ity of hen 10-325 00:00: MOUTH [place] mg tablet 00 EVERY 4 Medical HOURS Branch NEEDED FOR PAIN (SCALE 4-6) *MAY MAKE DROWSY* Indication s: chronic pain HYDROcodone 2021-03 Yes 2745 TAKE 1 [facility] ers -acetaminop 1-23 TABLET BY ity of hen 10-325 00:00: MOUTH [place] mg tablet 00 EVERY 4 Medical HOURS Branch NEEDED FOR PAIN (SCALE 4-6) *MAY MAKE DROWSY* Indication s: chronic pain HYDROcodone 2021-03 Yes 2745 TAKE 1 [facility] ers -acetaminop 1-23 TABLET BY ity of hen 10-325 00:00: MOUTH [place] mg tablet 00 EVERY 4 Medical HOURS Branch NEEDED FOR PAIN (SCALE 4-6) *MAY MAKE DROWSY* Indication s: chronic pain HYDROcodone 2021-03 Yes 2745 TAKE 1 [facility] ers -acetaminop 1-23 TABLET BY ity of hen 10-325 00:00: MOUTH [place] mg tablet 00 EVERY 4 Medical HOURS Branch NEEDED FOR PAIN (SCALE 4-6) *MAY MAKE DROWSY* Indication s: chronic pain HYDROcodone 2021-03 Yes 2745 TAKE 1 [facility] ers -acetaminop 1-23 TABLET BY ity of hen 10-325 00:00: MOUTH [place] mg tablet 00 EVERY 4 Medical HOURS Branch NEEDED FOR PAIN (SCALE 4-6) *MAY MAKE DROWSY* Indication s: chronic pain HYDROcodone 2021-03 Yes 2745 TAKE 1 [facility] ers -acetaminop 1-23 TABLET BY ity of hen 10-325 00:00: MOUTH [place] mg tablet 00 EVERY 4 Medical HOURS Branch NEEDED FOR PAIN (SCALE 4-6) *MAY MAKE DROWSY* Indication s: chronic pain HYDROcodone 2021-03 Yes 2745 TAKE 1 [facility] ers -acetaminop 1-23 TABLET BY ity of hen 10-325 00:00: MOUTH [place] mg tablet 00 EVERY 4 Medical HOURS Branch NEEDED FOR PAIN (SCALE 4-6) *MAY MAKE DROWSY* Indication s: chronic pain HYDROcodone 2021-03 Yes 2745 TAKE 1 [facility] ers -acetaminop 1-23 TABLET BY ity of hen 10-325 00:00: MOUTH [place] mg tablet 00 EVERY 4 Medical HOURS Branch NEEDED FOR PAIN (SCALE 4-6) *MAY MAKE DROWSY* Indication s: chronic pain HYDROcodone 2021-03 Yes 2745 TAKE 1 [facility] ers -acetaminop 1-23 TABLET BY ity of hen 10-325 00:00: MOUTH [place] mg tablet 00 EVERY 4 Medical HOURS Branch NEEDED FOR PAIN (SCALE 4-6) *MAY MAKE DROWSY* Indication s: chronic pain HYDROcodone 2021-03 Yes 2745 TAKE 1 [facility] ers -acetaminop 1-23 TABLET BY ity of hen 10-325 00:00: MOUTH [place] mg tablet 00 EVERY 4 Medical HOURS Branch NEEDED FOR PAIN (SCALE 4-6) *MAY MAKE DROWSY* Indication s: chronic pain HYDROcodone 2021-03 Yes 2745 TAKE 1 [facility] ers -acetaminop 1-23 TABLET BY ity of hen 10-325 00:00: MOUTH [place] mg tablet 00 EVERY 4 Medical HOURS Branch NEEDED FOR PAIN (SCALE 4-6) *MAY MAKE DROWSY* Indication s: chronic pain HYDROcodone 2021-03 Yes 2745 TAKE 1 [facility] ers -acetaminop 1-23 TABLET BY ity of hen 10-325 00:00: MOUTH [place] mg tablet 00 EVERY 4 Medical HOURS Branch NEEDED FOR PAIN (SCALE 4-6) *MAY MAKE DROWSY* Indication s: chronic pain HYDROcodone 2021-03 Yes 2745 TAKE 1 [facility] ers -acetaminop 1-23 TABLET BY ity of hen 10-325 00:00: MOUTH [place] mg tablet 00 EVERY 4 Medical HOURS Branch NEEDED FOR PAIN (SCALE 4-6) *MAY MAKE DROWSY* Indication s: chronic pain HYDROcodone 2021-03 Yes 2745 TAKE 1 [facility] ers -acetaminop 1-23 TABLET BY ity of hen 10-325 00:00: MOUTH [place] mg tablet 00 EVERY 4 Medical HOURS Branch NEEDED FOR PAIN (SCALE 4-6) *MAY MAKE DROWSY* Indication s: chronic pain HYDROcodone 2021-03- No 2745 TAKE 1 [facility] vers -acetaminop 1-23 12-21 TABLET BY it y of hen 10-325 00:00: 00:00 MOUTH [place] mg tablet 00 :00 EVERY 4 Medical HOURS Branch NEEDED FOR PAIN (SCALE 4-6) *MAY MAKE DROWSY* Indication s: chronic pain CLOPIDOGREL 2021-03 Yes [id number] TAKE 1 [facility] 75 mg 1-21 TABLET BY ity of tablet 00:00: MOUTH 00 EVERY DAY Medical Branch PANTOPRAZOL 2021-03 Yes TAKE 1 [facility] ers E 40 mg EC 1-21 TABLET BY ity of tablet 00:00: MOUTH ONCE 00 DAILY Medical BEFORE A Branch MEAL LEVETIRACET 2021-03 Yes [id number] TAKE 1 [facility] AM 1,000 mg 1-21 TABLET BY ity of tablet 00:00: MOUTH 2 00 TIMES Medical DAILY Branch METFORMIN 2021-03 Yes [id number] TAKE 2 [facility] ER 500 mg 1-21 TABLETS BY ity of 24 hr 00:00: MOUTH 2 [place] tablet 00 TIMES Medical DAILY Branch DAILY WITH FOOD LATUDA 40 2021-03 Yes [id number] TAKE 1 U nivers mg tablet 1-21 TABLET BY ity o f 00:00: MOUTH AT [place] 00 BEDTIME Medical Branch CLOPIDOGREL 2021-03 Yes [id number] TAKE 1 [facility] 75 mg 1-21 TABLET BY ity of tablet 00:00: MOUTH 00 EVERY DAY Medical Branch PANTOPRAZOL 2021-03 Yes TAKE 1 [facility] ers E 40 mg EC 1-21 TABLET BY ity of tablet 00:00: MOUTH ONCE 00 DAILY Medical BEFORE A Branch MEAL LEVETIRACET 2021-03 Yes [id number] TAKE 1 [facility] AM 1,000 mg 1-21 TABLET BY ity of tablet 00:00: MOUTH 2 00 TIMES Medical DAILY Branch METFORMIN 2021-03 Yes [id number] TAKE 2 [facility] ER 500 mg 1-21 TABLETS BY ity of 24 hr 00:00: MOUTH 2 [place] tablet TIMES Medical DAILY Branch DAILY WITH FOOD LATUDA 40 2021-03 Yes [id number] TAKE 1 U nivers mg tablet 1-21 TABLET BY ity o f 00:00: MOUTH AT [place] BEDTIME Medical Branch [facility] 2021-03 Yes [id number] APPLY [facility] NE 1-21 THINLY TO ity of ACETONIDE 00:00: AFFECTED [place] 0.1 % cream 00 AREA(S) 3 Med ical TIMES Branch DAILY CLOPIDOGREL 2021-03 Yes [id number] TAKE 1 [facility] 75 mg 1-21 TABLET BY ity of tablet 00:00: MOUTH EVERY DAY Medical Branch PANTOPRAZOL 2021-03 Yes TAKE 1 [facility] ers E 40 mg EC 1-21 TABLET BY ity of tablet 00:00: MOUTH ONCE [place] DAILY Medical BEFORE A Branch MEAL LEVETIRACET 2021-03 Yes [id number] TAKE 1 [facility] AM 1,000 mg 1-21 TABLET BY ity of tablet 00:00: MOUTH 2 TIMES Medical DAILY Branch METFORMIN 2021-03 Yes [id number] TAKE 2 [facility] ER 500 mg 1-21 TABLETS BY ity of 24 hr 00:00: MOUTH 2 [place] tablet TIMES Medical DAILY Branch DAILY WITH FOOD LATUDA 40 2021-03 Yes [id number] TAKE 1 U nivers mg tablet 1-21 TABLET BY ity o f 00:00: MOUTH AT [place] BEDTIME Medical Branch [facility] 2021-03 Yes [id number] APPLY [facility] NE 1-21 THINLY TO ity of ACETONIDE 00:00: AFFECTED [place] 0.1 % cream 00 AREA(S) 3 Med ical TIMES Branch DAILY CLOPIDOGREL 2021-03 Yes [id number] TAKE 1 [facility] 75 mg 1-21 TABLET BY ity of tablet 00:00: MOUTH EVERY DAY Medical Branch PANTOPRAZOL 2021-03 Yes TAKE 1 [facility] ers E 40 mg EC 1-21 TABLET BY ity of tablet 00:00: MOUTH ONCE [place] DAILY Medical BEFORE A Branch MEAL LEVETIRACET 2021-03 Yes [id number] TAKE 1 [facility] AM 1,000 mg 1-21 TABLET BY ity of tablet 00:00: MOUTH 2 TIMES Medical DAILY Branch METFORMIN 2021-03 Yes [id number] TAKE 2 [facility] ER 500 mg 1-21 TABLETS BY ity of 24 hr 00:00: MOUTH 2 [place] tablet TIMES Medical DAILY Branch DAILY WITH FOOD LATUDA 40 2021-03 Yes [id number] TAKE 1 U nivers mg tablet 1-21 TABLET BY ity o f 00:00: MOUTH AT [place] BEDTIME Medical Branch [facility] 2021-03 Yes [id number] APPLY [facility] NE 1-21 THINLY TO ity of ACETONIDE 00:00: AFFECTED [place] 0.1 % cream 00 AREA(S) 3 Med ical TIMES Branch DAILY CLOPIDOGREL 2021-03 Yes [id number] TAKE 1 [facility] 75 mg 1-21 TABLET BY ity of tablet 00:00: MOUTH EVERY DAY Medical Branch PANTOPRAZOL 2021-03 Yes TAKE 1 [facility] ers E 40 mg EC 1-21 TABLET BY ity of tablet 00:00: MOUTH ONCE [place] DAILY Medical BEFORE A Branch MEAL LEVETIRACET 2021-03 Yes [id number] TAKE 1 [facility] AM 1,000 mg 1-21 TABLET BY ity of tablet 00:00: MOUTH 2 TIMES Medical DAILY Branch METFORMIN 2021-03 Yes [id number] TAKE 2 [facility] ER 500 mg 1-21 TABLETS BY ity of 24 hr 00:00: MOUTH 2 [place] tablet TIMES Medical DAILY Branch DAILY WITH FOOD LATUDA 40 2021-03 Yes [id number] TAKE 1 U nivers mg tablet 1-21 TABLET BY ity o f 00:00: MOUTH AT [place] BEDTIME Medical [facility] 2021-03 Yes [id number] APPLY [facility] NE 1-21 THINLY TO ity of ACETONIDE 00:00: AFFECTED [place] 0.1 % cream 00 AREA(S) 3 Med ical TIMES Branch DAILY CLOPIDOGREL 2021-03 Yes [id number] TAKE 1 [facility] 75 mg 1-21 TABLET BY ity of tablet 00:00: MOUTH EVERY DAY Medical Branch PANTOPRAZOL 2021-03 Yes TAKE 1 [facility] ers E 40 mg EC 1-21 TABLET BY ity of tablet 00:00: MOUTH ONCE [place] DAILY Medical BEFORE A Branch MEAL LEVETIRACET 2021-03 Yes [id number] TAKE 1 [facility] AM 1,000 mg 1-21 TABLET BY ity of tablet 00:00: MOUTH 2 [place] 00 TIMES Medical DAILY Branch METFORMIN 2021-03 Yes [id number] TAKE 2 [facility] ER 500 mg 1-21 TABLETS BY ity of 24 hr 00:00: MOUTH 2 [place] tablet 00 TIMES Medical DAILY Branch DAILY WITH FOOD LATUDA 40 2021-03 Yes [id number] TAKE 1 U nivers mg tablet 1-21 TABLET BY ity o f 00:00: MOUTH AT [place] BEDTIME Medical Branch [facility] 2021-03 Yes [id number] APPLY [facility] NE 1-21 THINLY TO ity of ACETONIDE 00:00: AFFECTED [place] 0.1 % cream 00 AREA(S) 3 Med ical TIMES Branch DAILY CLOPIDOGREL 2021-03 Yes [id number] TAKE 1 [facility] 75 mg 1-21 TABLET BY ity of tablet 00:00: MOUTH [place] EVERY DAY Medical Branch PANTOPRAZOL 2021-03 Yes TAKE 1 [facility] ers E 40 mg EC 1-21 TABLET BY ity of tablet 00:00: MOUTH ONCE [place] DAILY Medical BEFORE A Branch MEAL LEVETIRACET 2021-03 Yes [id number] TAKE 1 [facility] AM 1,000 mg 1-21 TABLET BY ity of tablet 00:00: MOUTH 2 [place] 00 TIMES Medical DAILY Branch METFORMIN 2021-03 Yes [id number] TAKE 2 [facility] ER 500 mg 1-21 TABLETS BY ity of 24 hr 00:00: MOUTH 2 [place] tablet 00 TIMES Medical DAILY Branch DAILY WITH FOOD LATUDA 40 2021-03 Yes [id number] TAKE 1 U nivers mg tablet 1-21 TABLET BY ity o f 00:00: MOUTH AT [place] BEDTIME Medical [facility] 2021-03 Yes [id number] APPLY [facility] NE 1-21 THINLY TO ity of ACETONIDE 00:00: AFFECTED [place] 0.1 % cream 00 AREA(S) 3 Med ical TIMES Branch DAILY CLOPIDOGREL 2021-03 Yes [id number] TAKE 1 [facility] 75 mg 1-21 TABLET BY ity of tablet 00:00: MOUTH [place] DAY Medical Branch PANTOPRAZOL 2021-03 Yes TAKE 1 [facility] ers E 40 mg EC 1-21 TABLET BY ity of tablet 00:00: MOUTH ONCE [place] DAILY Medical BEFORE A Branch MEAL LEVETIRACET 2021-03 Yes [id number] TAKE 1 [facility] AM 1,000 mg 1-21 TABLET BY ity of tablet 00:00: MOUTH 2 [place] TIMES Medical DAILY Branch METFORMIN 2021-03 Yes [id number] TAKE 2 [facility] ER 500 mg 1-21 TABLETS BY ity of 24 hr 00:00: MOUTH 2 [place] tablet 00 TIMES Medical DAILY Branch DAILY WITH FOOD LATUDA 40 2021-03 Yes [id number] TAKE 1 U nivers mg tablet 1-21 TABLET BY ity o f 00:00: MOUTH AT [place] BEDTIME Medical Branch [facility] 2021-03 Yes [id number] APPLY [facility] NE 1-21 THINLY TO ity of ACETONIDE 00:00: AFFECTED [place] 0.1 % cream 00 AREA(S) 3 Med ical TIMES Branch DAILY CLOPIDOGREL 2021-03 Yes [id number] TAKE 1 [facility] 75 mg 1-21 TABLET BY ity of tablet 00:00: MOUTH [place] EVERY DAY Medical Branch PANTOPRAZOL 2021-03 Yes TAKE 1 Univ ers E 40 mg EC 1-21 TABLET BY ity of tablet 00:00: MOUTH ONCE [place] DAILY Medical BEFORE A Branch MEAL LEVETIRACET 2021-03 Yes [id number] TAKE 1 [facility] AM 1,000 mg 1-21 TABLET BY ity of tablet 00:00: MOUTH 2 TIMES Medical DAILY Branch METFORMIN 2021-03 Yes [id number] TAKE 2 Un [facility] ER 500 mg 1-21 TABLETS BY ity of 24 hr 00:00: MOUTH 2 [place] tablet 00 TIMES Medical DAILY Branch DAILY WITH FOOD LATUDA 40 2021-03 Yes [id number] TAKE 1 U nivers mg tablet 1-21 TABLET BY ity o f 00:00: MOUTH AT [place] BEDTIME Medical [facility] 2021-03 Yes [id number] APPLY Univers NE 1-21 THINLY TO ity of ACETONIDE 00:00: AFFECTED [place] 0.1 % cream 00 AREA(S) 3 Med ical TIMES Branch DAILY CLOPIDOGREL 2021-03 Yes [id number] TAKE 1 [facility] 75 mg 1-21 TABLET BY ity of tablet 00:00: MOUTH [place] EVERY DAY Medical Branch PANTOPRAZOL 2021-03 Yes TAKE 1 Univ ers E 40 mg EC 1-21 TABLET BY ity of tablet 00:00: MOUTH ONCE [place] DAILY Medical BEFORE A Branch MEAL LEVETIRACET 2021-03 Yes [id number] TAKE 1 [facility] AM 1,000 mg 1-21 TABLET BY ity of tablet 00:00: MOUTH 2 [place] 00 TIMES Medical DAILY Branch METFORMIN 2021-03 Yes [id number] TAKE 2 [facility] ER 500 mg 1-21 TABLETS BY ity of 24 hr 00:00: MOUTH 2 [place] tablet 00 TIMES Medical DAILY Branch DAILY WITH FOOD LATUDA 40 2021-03 Yes [id number] TAKE 1 U nivers mg tablet 1-21 TABLET BY ity o f 00:00: MOUTH AT [place] BEDTIME Medical Branch [facility] 2021-03 Yes [id number] APPLY [facility] NE 1-21 THINLY TO ity of ACETONIDE 00:00: AFFECTED [place] 0.1 % cream 00 AREA(S) 3 Med ical TIMES Branch DAILY CLOPIDOGREL 2021-03 Yes [id number] TAKE 1 [facility] 75 mg 1-21 TABLET BY ity of tablet 00:00: MOUTH EVERY DAY Medical Branch PANTOPRAZOL 2021-03 Yes TAKE 1 Univ ers E 40 mg EC 1-21 TABLET BY ity of tablet 00:00: MOUTH ONCE [place] DAILY Medical BEFORE A Branch MEAL LEVETIRACET 2021-03 Yes [id number] TAKE 1 [facility] AM 1,000 mg 1-21 TABLET BY ity of tablet 00:00: MOUTH 2 [place] TIMES Medical DAILY Branch METFORMIN 2021-03 Yes [id number] TAKE 2 Un reinier ER 500 mg 1-21 TABLETS BY ity of 24 hr 00:00: MOUTH 2 [place] tablet 00 TIMES Medical DAILY Branch DAILY WITH FOOD LATUDA 40 2021-03 Yes [id number] TAKE 1 U nivers mg tablet 1-21 TABLET BY ity o f 00:00: MOUTH AT [place] BEDTIME Medical [facility] 2021-03 Yes [id number] APPLY Univers NE 1-21 THINLY TO ity of ACETONIDE 00:00: AFFECTED [place] 0.1 % cream 00 AREA(S) 3 Med ical TIMES Branch DAILY CLOPIDOGREL 2021-03 Yes [id number] TAKE 1 [facility] 75 mg 1-21 TABLET BY ity of tablet 00:00: MOUTH [place] EVERY DAY Medical Branch PANTOPRAZOL 2021-03 Yes TAKE 1 Univ ers E 40 mg EC 1-21 TABLET BY ity of tablet 00:00: MOUTH ONCE [place] DAILY Medical BEFORE A Branch MEAL LEVETIRACET 2021-03 Yes [id number] TAKE 1 [facility] AM 1,000 mg 1-21 TABLET BY ity of tablet 00:00: MOUTH 2 TIMES Medical DAILY Branch METFORMIN 2021-03 Yes [id number] TAKE 2 Un [facility] ER 500 mg 1-21 TABLETS BY ity of 24 hr 00:00: MOUTH 2 [place] tablet 00 TIMES Medical DAILY Branch DAILY WITH FOOD LATUDA 40 2021-03 Yes [id number] TAKE 1 U nivers mg tablet 1-21 TABLET BY ity o f 00:00: MOUTH AT [place] BEDTIME Medical [facility] 2021-03 Yes [id number] APPLY Univers NE 1-21 THINLY TO ity of ACETONIDE 00:00[place] 0.1 % cream 00 AREA(S) 3 Med ical TIMES Branch DAILY CLOPIDOGREL 2021-03 Yes [id number] TAKE 1 [facility] 75 mg 1-21 TABLET BY ity of tablet 00:00: MOUTH EVERY DAY Medical Branch PANTOPRAZOL 2021-03 Yes TAKE 1 Univ ers E 40 mg EC 1-21 TABLET BY ity of tablet 00:00: MOUTH ONCE [place] DAILY Medical BEFORE A Branch MEAL LEVETIRACET 2021-03 Yes [id number] TAKE 1 [facility] AM 1,000 mg 1-21 TABLET BY ity of tablet 00:00: MOUTH 2 TIMES Medical DAILY Branch METFORMIN 2021-03 Yes [id number] TAKE 2 Un [facility] ER 500 mg 1-21 TABLETS BY ity of 24 hr 00:00: MOUTH 2 [place] tablet 00 TIMES Medical DAILY Branch DAILY WITH FOOD LATUDA 40 2021-03 Yes [id number] TAKE 1 U nivers mg tablet 1-21 TABLET BY ity o f 00:00: MOUTH AT [place] BEDTIME Medical [facility] 2021-03 Yes [id number] APPLY [facility] NE 1-21 THINLY TO ity of ACETONIDE 00:00[place] 0[place]1 % cream 00 AREA(S) 3 Med ical TIMES Branch DAILY CLOPIDOGREL 2021-03 Yes [id number] TAKE 1 [facility] 75 mg 1-21 TABLET BY ity of tablet 00:00: MOUTH EVERY DAY Medical Branch PANTOPRAZOL 2021-03 Yes TAKE 1 [facility] ers E 40 mg EC 1-21 TABLET BY ity of tablet 00:00: MOUTH ONCE [place] DAILY Medical BEFORE A Branch MEAL LEVETIRACET 2021-03 Yes [id number] TAKE 1 [facility] AM 1,000 mg 1-21 TABLET BY ity of tablet 00:00: MOUTH 2 [place] TIMES Medical DAILY Branch METFORMIN 2021-03 Yes [id number] TAKE 2 [facility] rein[facility] ER 500 mg 1-21 TABLETS BY ity of 24 hr 00:00: MOUTH 2 [place] tablet 00 TIMES Medical DAILY Branch DAILY WITH FOOD LATUDA 40 2021-03 Yes [id number] TAKE 1 [facility] nivers mg tablet 1-21 TABLET BY ity o f 00:00: MOUTH AT [place] BEDTIME Medical Branch [facility] 2021-03 Yes [id number] APPLY [facility] NE 1-21 THINLY TO ity of ACETONIDE 00:00: [place]FFECT[place] 0.1 % cream 00 AREA(S) 3 Med ical TIMES Branch DAILY CLOPIDOGREL 2021-03 Yes [id number] TAKE 1 [facility] 75 mg 1-21 TABLET BY ity of tablet 00:00: MOUTH EVERY DAY Medical Branch PANTOPRAZOL 2021-03 Yes TAKE 1 [facility] ers E 40 mg EC 1-21 TABLET BY ity of tablet 00:00: MOUTH ONCE [place] DAILY Medical BEFORE A Branch MEAL LEVETIRACET 2021-03 Yes [id number] TAKE 1 [facility] AM 1,000 mg 1-21 TABLET BY ity of tablet 00:00: MOUTH 2 [place] TIMES Medical DAILY Branch METFORMIN 2021-03 Yes [id number] TAKE 2 [facility] reinier ER 500 mg 1-21 TABLETS BY ity of 24 hr 00:00: MOUTH 2 [place] tablet 00 TIMES Medical DAILY Branch DAILY WITH FOOD LATUDA 40 2021-03 Yes [id number] TAKE 1 U nivers mg tablet 1-21 TABLET BY ity o f 00:00: MOUTH AT [place] BEDTIME Medical [facility] 2021-03 Yes [id number] APPLY [facility] NE 1-21 THINLY TO ity of ACETONIDE 00:00: [place]FFECTED [place] 0.1 % cream 00 AREA(S) 3 Med ical TIMES Branch DAILY CLOPIDOGREL 2021-03 Yes [id number] TAKE 1 [facility] 75 mg 1-21 TABLET BY ity of tablet 00:00: MOUTH EVERY DAY Medical Branch PANTOPRAZOL 2021-03 Yes TAKE 1 [facility] ers E 40 mg EC 1-21 TABLET BY ity of tablet 00:00: MOUTH ONCE [place] DAILY Medical BEFORE A Branch MEAL LEVETIRACET 2021-03 Yes [id number] TAKE 1 [facility] AM 1,000 mg 1-21 TABLET BY ity of tablet 00:00: MOUTH 2 [place] TIMES Medical DAILY Branch METFORMIN 2021-03 Yes [id number] TAKE 2 [facility] ER 500 mg 1-21 TABLETS BY ity of 24 hr 00:00: MOUTH 2 [place] tablet 00 TIMES Medical DAILY Branch DAILY WITH FOOD LATUDA 40 2021-03 Yes [id number] TAKE 1 [facility] n[facility] mg tablet 1-21 TABLET BY ity o f 00:00: MOUTH AT [place] BEDTIME Medical Branch [facility] 2021-03 Yes [id number] APPLY [facility] NE 1-21 THINLY TO ity of ACETONIDE 00:00: [place]ECT[place] 0[place]1 % cream 00 AREA(S) 3 Med ical TIMES Branch DAILY CLOPIDOGREL 2021-03 Yes [id number] TAKE 1 [facility] 75 mg 1-21 TABLET BY ity of tablet 00:00: MOUTH EVERY DAY Medical Branch PANTOPRAZOL 2021-03 Yes TAKE 1 [facility] ers E 40 mg EC 1-21 TABLET BY ity of tablet 00:00: MOUTH ONCE DAILY Medical BEFORE A Branch MEAL LEVETIRACET 2021-03 Yes [id number] TAKE 1 [facility] AM 1,000 mg 1-21 TABLET BY ity of tablet 00:00: MOUTH 2 TIMES Medical DAILY Branch METFORMIN 2021-03 Yes [id number] TAKE 2 [facility] ER 500 mg 1-21 TABLETS BY ity of 24 hr 00:00: MOUTH 2 [place] tablet 00 TIMES Medical DAILY Branch DAILY WITH FOOD LATUDA 40 2021-03 Yes [id number] TAKE 1 [facility] mg tablet 1-21 TABLET BY ity o f 00:00: MOUTH AT [place] BEDTIME Medical Branch [facility] 2021-03 Yes [id number] APPLY [facility] NE 1-21 THINLY TO ity of ACETONIDE 00:00: AFFECTED [place] 0.1 % cream 00 AREA(S) 3 Med ical TIMES Branch DAILY CLOPIDOGREL 2021-03 Yes [id number] TAKE 1 [facility] 75 mg 1-21 TABLET BY ity of tablet 00:00: MOUTH EVERY DAY Medical Branch PANTOPRAZOL 2021-03 Yes TAKE 1 [facility] ers E 40 mg EC 1-21 TABLET BY ity of tablet 00:00: MOUTH ONCE [place] DAILY Medical BEFORE A Branch MEAL LEVETIRACET 2021-03 Yes [id number] TAKE 1 [facility] AM 1,000 mg 1-21 TABLET BY ity of tablet 00:00: MOUTH 2 [place] 00 TIMES Medical DAILY Branch METFORMIN 2021-03 Yes [id number] TAKE 2 [facility] ER 500 mg 1-21 TABLETS BY ity of 24 hr 00:00: MOUTH 2 [place] tablet 00 TIMES Medical DAILY Branch DAILY WITH FOOD LATUDA 40 2021-03 Yes [id number] TAKE 1 [facility] n[facility] mg tablet 1-21 TABLET BY ity o f 00:00: MOUTH AT [place] 00 BEDTIME Medical Branch TRIAMCINOLO 2021-03 Yes [id number] APPLY [facility] NE 1-21 THINLY TO ity of ACETONIDE 00:00: AFFECTED [place] 0.1 % cream 00 AREA(S) 3 Med ical TIMES Branch DAILY CLOPIDOGREL 2021-03 Yes [id number] TAKE 1 [facility] 75 mg 1-21 TABLET BY ity of tablet 00:00: MOUTH [place] 00 EVERY DAY Medical Branch PANTOPRAZOL 2021-03 Yes TAKE 1 [facility] ers E 40 mg EC 1-21 TABLET BY ity of tablet 00:00: MOUTH ONCE [place] DAILY Medical BEFORE A Branch MEAL LEVETIRACET 2021-03 Yes [id number] TAKE 1 [facility] AM 1,000 mg 1-21 TABLET BY ity of tablet 00:00: MOUTH 2 [place] 00 TIMES Medical DAILY Branch METFORMIN 2021-03 Yes [id number] TAKE 2 [facility] ER 500 mg 1-21 TABLETS BY ity of 24 hr 00:00: MOUTH 2 [place] tablet 00 TIMES Medical DAILY Branch DAILY WITH FOOD LATUDA 40 2021-03 Yes [id number] TAKE 1 [facility]ivers mg tablet 1-21 TABLET BY ity o f 00:00: MOUTH AT [place] 00 BEDTIME Medical Branch TRIAMCINOLO 2021-03 Yes [id number] APPLY [facility] NE 1-21 THINLY TO ity of ACETONIDE 00:00: AFFECTED [place] 0.1 % cream 00 AREA(S) 3 Med ical TIMES Branch DAILY TRIAMCINOLO 2021-03 Yes [id number] APPLY [facility] NE 1-21 THINLY TO ity of ACETONIDE 00:00: AFFECTED [place] 0[place]1 % cream 00 AREA(S) 3 Med ical TIMES Branch DAILY TRIAMCINOLO 2021-03 Yes [id number] APPLY [facility] NE 1-21 THINLY TO ity of ACETONIDE 00:00: AFFECTED [place] 0[place]1 % cream 00 AREA(S) 3 Med ical TIMES Branch DAILY TRIAMCINOLO 2021-03 Yes [id number] APPLY [facility] NE 1-21 THINLY TO ity of ACETONIDE 00:00: AFFECTED [place] 0[place]1 % cream 00 AREA(S) 3 Med ical TIMES Branch DAILY TRIAMCINOLO 2021-03 Yes [id number] APPLY [facility] NE 1-21 THINLY TO ity of ACETONIDE 00:00: AFFECTED [place] 0[place]1 % cream 00 AREA(S) 3 Med ical TIMES Branch DAILY TRIAMCINOLO 2021-03 Yes [id number] APPLY [facility] NE 1-21 THINLY TO ity of ACETONIDE 00:00: AFFECTED [place] 0[place]1 % cream 00 AREA(S) 3 Med ical TIMES Branch DAILY TRIAMCINOLO 2021-03 Yes [id number] APPLY [facility] NE 1-21 THINLY TO ity of ACETONIDE 00:00: AFFECTED [place] 0[place]1 % cream 00 AREA(S) 3 Med ical TIMES Branch DAILY TRIAMCINOLO 2021-03 Yes [id number] APPLY [facility] NE 1-21 THINLY TO ity of ACETONIDE 00:00: AFFECTED [place] 0[place]1 % cream 00 AREA(S) 3 Med ical TIMES Branch DAILY TRIAMCINOLO 2021-03 Yes [id number] APPLY [facility] NE 1-21 THINLY TO ity of ACETONIDE 00:00: AFFECTED [place] 0[place]1 % cream 00 AREA(S) 3 Med ical TIMES Branch DAILY TRIAMCINOLO 2021-03 Yes [id number] APPLY [facility] NE 1-21 THINLY TO ity of ACETONIDE 00:00: AFFECTED [place] 0[place]1 % cream 00 AREA(S) 3 Med ical TIMES Branch DAILY TRIAMCINOLO 2021-03 Yes [id number] APPLY [facility] NE 1-21 THINLY TO ity of ACETONIDE 00:00: AFFECTED [place] 0[place]1 % cream 00 AREA(S) 3 Med ical TIMES Branch DAILY TRIAMCINOLO 2021-03 Yes [id number] APPLY [facility] NE 1-21 THINLY TO ity of ACETONIDE 00:00: AFFECTED [place] 0[place]1 % cream 00 AREA(S) 3 Med ical TIMES Branch DAILY TRIAMCINOLO 2021-03 Yes [id number] APPLY [facility] NE 1-21 THINLY TO ity of ACETONIDE 00:00: AFFECTED [place] 0[place]1 % cream 00 AREA(S) 3 Med ical TIMES Branch DAILY TRIAMCINOLO 2021-03 Yes [id number] APPLY [facility] NE 1-21 THINLY TO ity of ACETONIDE 00:00: AFFECTED [place] 0[place]1 % cream 00 AREA(S) 3 Med ical TIMES Branch DAILY TRIAMCINOLO 2021-03 Yes [id number] APPLY [facility] NE 1-21 THINLY TO ity of ACETONIDE 00:00: AFFECTED [place] 0[place]1 % cream 00 AREA(S) 3 Med ical TIMES Branch DAILY TRIAMCINOLO 2021-03 Yes [id number] APPLY [facility] NE 1-21 THINLY TO ity of ACETONIDE 00:00: AFFECTED [place] 0[place]1 % cream 00 AREA(S) 3 Med ical TIMES Branch DAILY TRIAMCINOLO 2021-03 Yes [id number] APPLY [facility] NE 1-21 THINLY TO ity of ACETONIDE 00:00: AFFECTED [place] 0.1 % cream 00 AREA(S) 3 Med ical TIMES Branch DAILY TRIAMCINOLO 2021-03 Yes [id number] APPLY [facility] NE 1-21 THINLY TO ity of ACETONIDE 00:00: AFFECTED [place] 0[place]1 % cream 00 AREA(S) 3 Med ical TIMES Branch DAILY TRIAMCINOLO 2021-03 Yes [id number] APPLY [facility] NE 1-21 THINLY TO ity of ACETONIDE 00:00: AFFECTED [place] 0[place]1 % cream 00 AREA(S) 3 Med ical TIMES Branch DAILY TRIAMCINOLO 2021-03 Yes [id number] APPLY [facility] NE 1-21 THINLY TO ity of ACETONIDE 00:00: AFFECTED [place] 0.1 % cream 00 AREA(S) 3 Med ical TIMES Branch DAILY TRIAMCINOLO 2021-03 Yes [id number] APPLY [facility] NE 1-21 THINLY TO ity of ACETONIDE 00:00: AFFECTED [place] 0[place]1 % cream 00 AREA(S) 3 Med ical TIMES Branch DAILY TRIAMCINOLO 2021-03 Yes [id number] APPLY [facility] NE 1-21 THINLY TO ity of ACETONIDE 00:00: AFFECTED [place] 0[place]1 % cream 00 AREA(S) 3 Med ical TIMES Branch DAILY TRIAMCINOLO 2021-03 Yes [id number] APPLY [facility] NE 1-21 THINLY TO ity of ACETONIDE 00:00: AFFECTED [place] 0[place]1 % cream 00 AREA(S) 3 Med ical TIMES Branch DAILY TRIAMCINOLO 2021-03 Yes [id number] APPLY [facility] NE 1-21 THINLY TO ity of ACETONIDE 00:00: AFFECTED [place] 0.1 % cream 00 AREA(S) 3 Med ical TIMES Branch DAILY TRIAMCINOLO 2021-03 Yes [id number] APPLY [facility] NE 1-21 THINLY TO ity of ACETONIDE 00:00: AFFECTED [place] 0[place]1 % cream 00 AREA(S) 3 Med ical TIMES Branch DAILY TRIAMCINOLO 2021-03 Yes [id number] APPLY [facility] NE 1-21 THINLY TO ity of ACETONIDE 00:00: AFFECTED [place] 0[place]1 % cream 00 AREA(S) 3 Med ical TIMES Branch DAILY TRIAMCINOLO 2021-03 Yes [id number] APPLY [facility] NE 1-21 THINLY TO ity of ACETONIDE 00:00: AFFECTED [place] 0[place]1 % cream 00 AREA(S) 3 Med ical TIMES Branch DAILY TRIAMCINOLO 2021-03 Yes [id number] APPLY [facility] NE 1-21 THINLY TO ity of ACETONIDE 00:00: AFFECTED [place] 0[place]1 % cream 00 AREA(S) 3 Med ical TIMES Branch DAILY TRIAMCINOLO 2021-03 Yes [id number] APPLY [facility] NE 1-21 THINLY TO ity of ACETONIDE 00:00: AFFECTED [place] 0[place]1 % cream 00 AREA(S) 3 Med ical TIMES Branch DAILY TRIAMCINOLO 2021-03 Yes [id number] APPLY [facility] NE 1-21 THINLY TO ity of ACETONIDE 00:00: AFFECTED [place] 0[place]1 % cream 00 AREA(S) 3 Med ical TIMES Branch DAILY TRIAMCINOLO 2021-03 Yes [id number] APPLY [facility] NE 1-21 THINLY TO ity of ACETONIDE 00:00: AFFECTED [place] 0[place]1 % cream 00 AREA(S) 3 Med ical TIMES Branch DAILY TRIAMCINOLO 2021-03 Yes [id number] APPLY [facility] NE 1-21 THINLY TO ity of ACETONIDE 00:00: AFFECTED [place] 0[place]1 % cream 00 AREA(S) 3 Med ical TIMES Branch DAILY TRIAMCINOLO 2021-03 Yes [id number] APPLY [facility] NE 1-21 THINLY TO ity of ACETONIDE 00:00: AFFECTED [place] 0[place]1 % cream 00 AREA(S) 3 Med ical TIMES Branch DAILY TRIAMCINOLO 2021-03 Yes [id number] APPLY [facility] NE 1-21 THINLY TO ity of ACETONIDE 00:00: AFFECTED [place] 0[place]1 % cream 00 AREA(S) 3 Med ical TIMES Branch DAILY TRIAMCINOLO 2021-03 Yes [id number] APPLY [facility] NE 1-21 THINLY TO ity of ACETONIDE 00:00: AFFECTED [place] 0[place]1 % cream 00 AREA(S) 3 Med ical TIMES Branch DAILY TRIAMCINOLO 2021-03 Yes [id number] APPLY [facility] NE 1-21 THINLY TO ity of ACETONIDE 00:00: AFFECTED [place] 0[place]1 % cream 00 AREA(S) 3 Med ical TIMES Branch DAILY TRIAMCINOLO 2021-03 Yes [id number] APPLY [facility] NE 1-21 THINLY TO ity of ACETONIDE 00:00: AFFECTED [place] 0[place]1 % cream 00 AREA(S) 3 Med ical TIMES Branch DAILY TRIAMCINOLO 2021-03 Yes [id number] APPLY [facility] NE 1-21 THINLY TO ity of ACETONIDE 00:00: AFFECTED [place] 0[place]1 % cream 00 AREA(S) 3 Med ical TIMES Branch DAILY TRIAMCINOLO 2021-03 Yes [id number] APPLY [facility] NE 1-21 THINLY TO ity of ACETONIDE 00:00: AFFECTED [place] 0[place]1 % cream 00 AREA(S) 3 Med ical TIMES Branch DAILY TRIAMCINOLO 2021-03 Yes [id number] APPLY [facility] NE 1-21 THINLY TO ity of ACETONIDE 00:00: AFFECTED [place] 0[place]1 % cream 00 AREA(S) 3 Med ical TIMES Branch DAILY TRIAMCINOLO 2021-03 Yes [id number] APPLY [facility] NE 1-21 THINLY TO ity of ACETONIDE 00:00: AFFECTED [place] 0[place]1 % cream 00 AREA(S) 3 Med ical TIMES Branch DAILY TRIAMCINOLO 2021-03 Yes [id number] APPLY [facility] NE 1-21 THINLY TO ity of ACETONIDE 00:00: AFFECTED [place] 0[place]1 % cream 00 AREA(S) 3 Med ical TIMES Branch DAILY TRIAMCINOLO 2021-03 Yes [id number] APPLY [facility] NE 1-21 THINLY TO ity of ACETONIDE 00:00: AFFECTED [place] 0[place]1 % cream 00 AREA(S) 3 Med ical TIMES Branch DAILY TRIAMCINOLO 2021-03 Yes [id number] APPLY [facility] NE 1-21 THINLY TO ity of ACETONIDE 00:00: AFFECTED [place] 0[place]1 % cream 00 AREA(S) 3 Med ical TIMES Branch DAILY TRIAMCINOLO 2021-03 Yes [id number] APPLY [facility] NE 1-21 THINLY TO ity of ACETONIDE 00:00: AFFECTED [place] 0[place]1 % cream 00 AREA(S) 3 Med ical TIMES Branch DAILY TRIAMCINOLO 2021-03 Yes [id number] APPLY [facility] NE 1-21 THINLY TO ity of ACETONIDE 00:00: AFFECTED [place] 0[place]1 % cream 00 AREA(S) 3 Med ical TIMES Branch DAILY TRIAMCINOLO 2021-03 Yes [id number] APPLY [facility] NE 1-21 THINLY TO ity of ACETONIDE 00:00: AFFECTED [place] 0[place]1 % cream 00 AREA(S) 3 Med ical TIMES Branch DAILY TRIAMCINOLO 2021-03 Yes [id number] APPLY [facility] NE 1-21 THINLY TO ity of ACETONIDE 00:00: AFFECTED [place] 0[place]1 % cream 00 AREA(S) 3 Med ical TIMES Branch DAILY TRIAMCINOLO 2021-03 Yes [id number] APPLY [facility] NE 1-21 THINLY TO ity of ACETONIDE 00:00: AFFECTED [place] 0[place]1 % cream 00 AREA(S) 3 Med ical TIMES Branch DAILY TRIAMCINOLO 2021-03 Yes [id number] APPLY [facility] NE 1-21 THINLY TO ity of ACETONIDE 00:00: AFFECTED [place] 0[place]1 % cream 00 AREA(S) 3 Med ical TIMES Branch DAILY TRIAMCINOLO 2021-03 Yes [id number] APPLY [facility] NE 1-21 THINLY TO ity of ACETONIDE 00:00: AFFECTED [place] 0[place]1 % cream 00 AREA(S) 3 Med ical TIMES Branch DAILY TRIAMCINOLO 2021-03 Yes [id number] APPLY [facility] NE 1-21 THINLY TO ity of ACETONIDE 00:00: AFFECTED [place] 0[place]1 % cream 00 AREA(S) 3 Med ical TIMES Branch DAILY TRIAMCINOLO 2021-03 Yes [id number] APPLY [facility] NE 1-21 THINLY TO ity of ACETONIDE 00:00: AFFECTED [place] 0[place]1 % cream 00 AREA(S) 3 Med ical TIMES Branch DAILY TRIAMCINOLO 2021-03 Yes [id number] APPLY [facility] NE 1-21 THINLY TO ity of ACETONIDE 00:00: AFFECTED [place] 0[place]1 % cream 00 AREA(S) 3 Med ical TIMES Branch DAILY TRIAMCINOLO 2021-03 Yes [id number] APPLY [facility] NE 1-21 THINLY TO ity of ACETONIDE 00:00: AFFECTED [place] 0[place]1 % cream 00 AREA(S) 3 Med ical TIMES Branch DAILY TRIAMCINOLO 2021-03 Yes [id number] APPLY [facility] NE 1-21 THINLY TO ity of ACETONIDE 00:00: AFFECTED [place] 0[place]1 % cream 00 AREA(S) 3 Med ical TIMES Branch DAILY TRIAMCINOLO 2021-03 Yes [id number] APPLY [facility] 1-21 THINLY TO ity of ACETONIDE 00:00: AFFECTED [place] 0[place]1 % cream 00 AREA(S) 3 Med ical TIMES Branch DAILY TRIAMCINOLO 2021-03 Yes [id number] APPLY [facility] NE 1-21 THINLY TO ity of ACETONIDE 00:00: AFFECTED [place] 0[place]1 % cream 00 AREA(S) 3 Med ical TIMES Branch DAILY TRIAMCINOLO 2021-03 Yes [id number] APPLY [facility] NE 1-21 THINLY TO ity of ACETONIDE 00:00: AFFECTED [place] 0[place]1 % cream 00 AREA(S) 3 Med ical TIMES Branch DAILY TRIAMCINOLO 2021-03 Yes [id number] APPLY [facility] NE 1-21 THINLY TO ity of ACETONIDE 00:00: AFFECTED [place] 0[place]1 % cream 00 AREA(S) 3 Med ical TIMES Branch DAILY TRIAMCINOLO 2021-03 Yes [id number] APPLY [facility] NE 1-21 THINLY TO ity of ACETONIDE 00:00: AFFECTED [place] 0[place]1 % cream 00 AREA(S) 3 Med ical TIMES Branch DAILY TRIAMCINOLO 2021-03 Yes [id number] APPLY [facility] NE 1-21 THINLY TO ity of ACETONIDE 00:00: AFFECTED [place] 0[place]1 % cream 00 AREA(S) 3 Med ical TIMES Branch DAILY TRIAMCINOLO 2021-03 Yes [id number] APPLY [facility] NE 1-21 THINLY TO ity of ACETONIDE 00:00: AFFECTED [place] 0[place]1 % cream 00 AREA(S) 3 Med ical TIMES Branch DAILY TRIAMCINOLO 2021-03 Yes [id number] APPLY [facility] NE 1-21 THINLY TO ity of ACETONIDE 00:00: AFFECTED [place] 0[place] % cream 00 AREA(S) 3 Med ical TIMES Branch DAILY TRIAMCINOLO 2021-03 Yes [id number] APPLY [facility] NE 1-21 THINLY TO ity of ACETONIDE 00:00: AFFECTED [place] 0[place] % cream 00 AREA(S) 3 Med ical TIMES Branch DAILY TRIAMCINOLO 2021-03 Yes [id number] APPLY [facility] NE 1-21 THINLY TO ity of ACETONIDE 00:00: AFFECTED [place] 0[place]1 % cream 00 AREA(S) 3 Med ical TIMES Branch DAILY TRIAMCINOLO 2021-03 Yes [id number] APPLY [facility] NE 1-21 THINLY TO ity of ACETONIDE 00:00: AFFECTED [place] 0[place]1 % cream 00 AREA(S) 3 Med ical TIMES Branch DAILY TRIAMCINOLO 2021-03 Yes [id number] APPLY [facility] NE 1-21 THINLY TO ity of ACETONIDE 00:00: AFFECTED [place] 0[place]1 % cream 00 AREA(S) 3 Med ical TIMES Branch DAILY TRIAMCINOLO 2021-03 Yes [id number] APPLY [facility] NE 1-21 THINLY TO ity of ACETONIDE 00:00: AFFECTED [place] 0[place]1 % cream 00 AREA(S) 3 Med ical TIMES Branch DAILY TRIAMCINOLO 2021-03 Yes [id number] APPLY [facility] NE 1-21 THINLY TO ity of ACETONIDE 00:00: AFFECTED [place] 0[place]1 % cream 00 AREA(S) 3 Med ical TIMES Branch DAILY TRIAMCINOLO 2021-03 Yes [id number] APPLY [facility] NE 1-21 THINLY TO ity of ACETONIDE 00:00: AFFECTED [place] 0[place]1 % cream 00 AREA(S) 3 Med ical TIMES Branch DAILY TRIAMCINOLO 2021-03 Yes [id number] APPLY [facility] NE 1-21 THINLY TO ity of ACETONIDE 00:00: AFFECTED [place] 0[place]1 % cream 00 AREA(S) 3 Med ical TIMES Branch DAILY TRIAMCINOLO 2021-03 Yes [id number] APPLY [facility] NE 1-21 THINLY TO ity of ACETONIDE 00:00: AFFECTED [place] 0[place]1 % cream 00 AREA(S) 3 Med ical TIMES Branch DAILY TRIAMCINOLO 2021-03 Yes [id number] APPLY [facility] NE 1-21 THINLY TO ity of ACETONIDE 00:00: AFFECTED [place] 0[place]1 % cream 00 AREA(S) 3 Med ical TIMES Branch DAILY TRIAMCINOLO 2021-03 Yes [id number] APPLY [facility] NE 1-21 THINLY TO ity of ACETONIDE 00:00: AFFECTED [place] 0[place]1 % cream 00 AREA(S) 3 Med ical TIMES Branch DAILY TRIAMCINOLO 2021-03 Yes [id number] APPLY [facility] NE 1-21 THINLY TO ity of ACETONIDE 00:00: AFFECTED [place] 0[place]1 % cream 00 AREA(S) 3 Med ical TIMES Branch DAILY TRIAMCINOLO 2021-03 Yes [id number] APPLY [facility] NE 1-21 THINLY TO ity of ACETONIDE 00:00: AFFECTED [place] 0[place]1 % cream 00 AREA(S) 3 Med ical TIMES Branch DAILY TRIAMCINOLO 2021-03 Yes [id number] APPLY [facility] NE 1-21 THINLY TO ity of ACETONIDE 00:00: AFFECTED [place] 0[place]1 % cream 00 AREA(S) 3 Med ical TIMES Branch DAILY TRIAMCINOLO 2021-03 Yes [id number] APPLY [facility] NE 1-21 THINLY TO ity of ACETONIDE 00:00: AFFECTED [place] 0[place]1 % cream 00 AREA(S) 3 Med ical TIMES Branch DAILY TRIAMCINOLO 2021-03 Yes [id number] APPLY [facility] NE 1-21 THINLY TO ity of ACETONIDE 00:00: AFFECTED [place] 0[place] % cream 00 AREA(S) 3 Med ical TIMES Branch DAILY TRIAMCINOLO 2021-03 Yes [id number] APPLY [facility] NE 1-21 THINLY TO ity of ACETONIDE 00:00: AFFECTED [place] 0[place]1 % cream 00 AREA(S) 3 Med ical TIMES Branch DAILY TRIAMCINOLO 2021-03 Yes [id number] APPLY [facility] NE 1-21 THINLY TO ity of ACETONIDE 00:00: AFFECTED [place] 0[place]1 % cream 00 AREA(S) 3 Med ical TIMES Branch DAILY TRIAMCINOLO 2021-03 Yes [id number] APPLY [facility] NE 1-21 THINLY TO ity of ACETONIDE 00:00: AFFECTED [place] 0[place]1 % cream 00 AREA(S) 3 Med ical TIMES Branch DAILY TRIAMCINOLO 2021-03 Yes [id number] APPLY [facility] NE 1-21 THINLY TO ity of ACETONIDE 00:00: AFFECTED [place] 0[place]1 % cream 00 AREA(S) 3 Med ical TIMES Branch DAILY TRIAMCINOLO 2021-03 Yes [id number] APPLY [facility] NE 1-21 THINLY TO ity of ACETONIDE 00:00: AFFECTED [place] 0[place]1 % cream 00 AREA(S) 3 Med ical TIMES Branch DAILY TRIAMCINOLO 2021-03 Yes [id number] APPLY [facility] NE 1-21 THINLY TO ity of ACETONIDE 00:00: AFFECTED [place] 0[place]1 % cream 00 AREA(S) 3 Med ical TIMES Branch DAILY TRIAMCINOLO 2021-03 Yes [id number] APPLY [facility] NE 1-21 THINLY TO ity of ACETONIDE 00:00: AFFECTED [place] 0[place]1 % cream 00 AREA(S) 3 Med ical TIMES Branch DAILY TRIAMCINOLO 2021-03 Yes [id number] APPLY [facility] NE 1-21 THINLY TO ity of ACETONIDE 00:00: AFFECTED [place] 0[place]1 % cream 00 AREA(S) 3 Med ical TIMES Branch DAILY TRIAMCINOLO 2021-03 Yes [id number] APPLY [facility] NE 1-21 THINLY TO ity of ACETONIDE 00:00: AFFECTED [place] 0[place]1 % cream 00 AREA(S) 3 Med ical TIMES Branch DAILY TRIAMCINOLO 2021-03 Yes [id number] APPLY [facility] NE 1-21 THINLY TO ity of ACETONIDE 00:00: AFFECTED [place] 0[place]1 % cream 00 AREA(S) 3 Med ical TIMES Branch DAILY TRIAMCINOLO 2021-03 Yes [id number] APPLY [facility] NE 1-21 THINLY TO ity of ACETONIDE 00:00: AFFECTED [place] 0[place]1 % cream 00 AREA(S) 3 Med ical TIMES Branch DAILY TRIAMCINOLO 2021-03 Yes [id number] APPLY [facility] NE 1-21 THINLY TO ity of ACETONIDE 00:00: AFFECTED [place] 0[place]1 % cream 00 AREA(S) 3 Med ical TIMES Branch DAILY TRIAMCINOLO 2021-03 Yes [id number] APPLY [facility] NE 1-21 THINLY TO ity of ACETONIDE 00:00: AFFECTED [place] 0[place]1 % cream 00 AREA(S) 3 Med ical TIMES Branch DAILY TRIAMCINOLO 2021-03 Yes [id number] APPLY [facility] NE 1-21 THINLY TO ity of ACETONIDE 00:00: AFFECTED [place] 0[place]1 % cream 00 AREA(S) 3 Med ical TIMES Branch DAILY TRIAMCINOLO 2021-03 Yes [id number] APPLY [facility] NE 1-21 THINLY TO ity of ACETONIDE 00:00: AFFECTED [place] 0[place]1 % cream 00 AREA(S) 3 Med ical TIMES Branch DAILY TRIAMCINOLO 2021-03 Yes [id number] APPLY [facility] NE 1-21 THINLY TO ity of ACETONIDE 00:00: AFFECTED [place] 0[place]1 % cream 00 AREA(S) 3 Med ical TIMES Branch DAILY CLOPIDOGREL 2021-03- No [id number] TAKE 1 [facility] 75 mg 04-12 TABLET BY ity of tablet 00:00: 00:00 MOUTH [place] 00 :00 EVERY DAY Medical Branch PANTOPRAZOL 2021-03- No TAKE 1 [facility] vers E 40 mg EC 04-12 TABLET BY ity of tablet 00:00: 00:00 M[place]TH [place]CE [place] 00 :00 DAILY Medical BEFORE A Branch MEAL LEVETIRACET 2021-03- No [id number] TAKE 1 [facility] AM 1,000 mg -03-14 TABLET BY it y of tablet 00:00: 00:00 MOUTH 2 [place] 00 :00 TIMES Medical DAILY Branch METFORMIN 2021-03- No [id number] TAKE 2 [facility] ER 500 mg 1-21 12-23 TABLETS BY ity of 24 hr 00:00: 00:00 MOUTH 2 [place] tablet 00 :00 TIMES Medical DAILY Branch DAILY WITH FOOD LATUDA 40 2021-03- No [id number] TAKE 1 [facility] mg tablet 1-21 12-23 TABLET BY ity of 00:00: 00:00 MOUTH AT [place] 00 :00 BEDTIME Medical Branch CLOPIDOGREL 2021-03- No [id number] TAKE 1 [facility] 75 mg 1-21 12-23 TABLET BY ity of tablet 00:00: 00:00 MOUTH [place] 00 :00 EVERY DAY [facility] Branch PANTOPRAZOL 2021-03- No TAKE 1 [facility] vers E 40 mg EC 1-21 12-23 TABLET BY [facility] tablet 00:00: 00:00 [place]CE [place] 00 :00 DAILY [facility] BEFORE A Branch MEAL LEVETIRACET 2021-03- No [id number] TAKE 1 [facility] AM 1,000 mg 1-21 12-23 TABLET BY it y of tablet 00:00: 00:00 MOUTH 2 [place] 00 :00 TIMES Medical DAILY Branch METFORMIN 2021-03- No [id number] TAKE 2 [facility] ER 500 mg 1-21 12-23 TABLETS BY ity of 24 hr 00:00: 00:00 MOUTH 2 [place] tablet 00 :00 TIMES Medical DAILY Branch DAILY WITH FOOD LATUDA 40 2021-03- No [id number] TAKE 1 [facility] mg tablet 1-21 12-23 TABLET BY ity of 00:00: 00:00 MOUTH AT [place] 00 :00 BEDTIME Medical Branch CLOPIDOGREL 2021-03- No [id number] TAKE 1 [facility] 75 mg 1-21 12-23 TABLET BY ity of tablet 00:00: 00:00 MOUTH [place] 00 :00 EVERY DAY Medical Branch PANTOPRAZOL 2021-03- No TAKE 1 [facility] vers E 40 mg EC 1-21 12-23 TABLET BY [facility] tablet 00:00: 00:00 [place]TH [place]CE [place] 00 :00 DAILY [facility] BEFORE A Branch MEAL LEVETIRACET 2021-03- No [id number] TAKE 1 [facility] AM 1,000 mg 1-21 12-23 TABLET BY it y of tablet 00:00: 00:00 MOUTH 2 [place] 00 :00 TIMES Medical DAILY Branch METFORMIN 2021-03- No [id number] TAKE 2 [facility] ER 500 mg 1-21 12-23 TABLETS BY ity of 24 hr 00:00: 00:00 MOUTH 2 [place] tablet 00 :00 TIMES Medical DAILY Branch DAILY WITH FOOD LATUDA 40 2021-03- No [id number] TAKE 1 [facility] mg tablet -21 12-23 TABLET BY ity of 00:00: 00:00 MOUTH AT [place] 00 :00 BEDTIME Medical Branch BACLOFEN 2021-03 Yes [id number] TAKE 1 [facility] mg tablet 1-17 TABLET BY ity o f 00:00: MOUTH 3 [place] 00 TIMES Medical DAILY *MAY Branch IMPAIR ALERTNESS* * VICTOZA 2021-03 Yes [id number] INJECT 1.8 [facility] 2-SOILA 0.6 1-17 MG UNDER ity of mg/0.1 mL 00:00: THE SKIN [place] (18 mg/3 00 IN THE Medical mL) MORNING. Branch injection VICTOZA 2021-03 Yes [id number] INJECT 1.8 [facility] 2-SOILA 0.6 1-17 MG UNDER ity of mg/0.1 mL 00:00: THE SKIN [place] (18 mg/3 00 IN THE Medical mL) MORNING. Branch injection BACLOFEN 2021-03 Yes [id number] TAKE 1 [facility] mg tablet 1-17 TABLET BY ity o f 00:00: MOUTH 3 [place] 00 TIMES Medical DAILY *MAY Branch IMPAIR ALERTNESS* * VICTOZA 2021-03 Yes [id number] INJECT 1.8 [facility] 2-SOILA 0.6 1-17 MG UNDER ity of mg/0.1 mL 00:00: THE SKIN [place] (18 mg/3 00 IN THE Medical mL) MORNING. Branch injection BACLOFEN 2021-03 Yes [id number] TAKE 1 [facility] mg tablet 1-17 TABLET BY ity o f 00:00: MOUTH 3 [place] 00 TIMES Medical DAILY *MAY Branch IMPAIR ALERTNESS* * VICTOZA 2021-03 Yes [id number] INJECT 1.8 [facility] 2-SOILA 0.6 1-17 MG UNDER ity of mg/0.1 mL 00:00: THE SKIN [place] (18 mg/3 00 IN THE Medical mL) MORNING. Branch injection BACLOFEN 2021-03 Yes [id number] TAKE 1 [facility] mg tablet 1-17 TABLET BY ity o f 00:00: MOUTH 3 [place] 00 TIMES Medical DAILY *MAY Branch IMPAIR ALERTNESS* * VICTOZA 2021-03 Yes [id number] INJECT 1.8 [facility] 2-SOILA 0.6 1-17 MG UNDER ity of mg/0.1 mL 00:00: [place] (18 mg/3 00 IN THE Medical mL) MORNING. Branch injection BACLOFEN 2021-03 Yes [id number] TAKE 1 [facility] mg tablet 1-17 TABLET BY ity o f 00:00: MOUTH 3 [place] 00 TIMES Medical DAILY *MAY Branch IMPAIR ALERTNESS* * VICTOZA 2021-03 Yes [id number] INJECT 1.8 [facility] 2-SOILA 0.6 1-17 MG UNDER ity of mg/0.1 mL 00:00: THE [place]IN [place] (18 mg/3 00 IN THE Medical mL) MORNING. Branch injection BACLOFEN 2021-03 Yes [id number] TAKE 1 [facility] mg tablet 1-17 TABLET BY ity o f 00:00: MOUTH 3 [place] 00 TIMES Medical DAILY *MAY Branch IMPAIR ALERTNESS* * VICTOZA 2021-03 Yes [id number] INJECT 1.8 [facility] 2-SOILA 0.6 1-17 MG UNDER ity of mg/0.1 mL 00:00: THE [place]IN [place] (18 mg/3 00 IN THE Medical mL) MORNING. Branch injection BACLOFEN 2021-03 Yes [id number] TAKE 1 [facility] mg tablet 1-17 TABLET BY ity o f 00:00: MOUTH 3 [place] 00 TIMES Medical DAILY *MAY Branch IMPAIR ALERTNESS* * VICTOZA 2021-03 Yes [id number] INJECT 1.8 [facility] 2-SOILA 0.6 1-17 MG UNDER ity of mg/0.1 mL 00:00: THE [place]IN [place] (18 mg/3 00 IN THE Medical mL) MORNING. Branch injection BACLOFEN 2021-03 Yes [id number] TAKE 1 [facility] mg tablet 1-17 TABLET BY ity o f 00:00: MOUTH 3 [place] 00 TIMES Medical DAILY *MAY Branch IMPAIR ALERTNESS* * VICTOZA 2021-03 Yes [id number] INJECT 1.8 [facility] 2-SOILA 0.6 1-17 MG UNDER ity of mg/0.1 mL 00:00: THE SKIN [place] (18 mg/3 00 IN THE Medical mL) MORNING. Branch injection BACLOFEN 2021-03 Yes [id number] TAKE 1 [facility] mg tablet 1-17 TABLET BY ity o f 00:00: MOUTH 3 [place] 00 TIMES Medical DAILY *MAY Branch IMPAIR ALERTNESS* * VICTOZA 2021-03 Yes [id number] INJECT 1.8 [facility] 2-SOILA 0.6 1-17 MG UNDER ity of mg/0.1 mL 00:00: THE [place]IN [place] (18 mg/3 00 IN THE Medical mL) MORNING. Branch injection BACLOFEN 2021-03 Yes [id number] TAKE 1 [facility] mg tablet 1-17 TABLET BY ity o f 00:00: MOUTH 3 [place] 00 TIMES Medical DAILY *MAY Branch IMPAIR ALERTNESS* * VICTOZA 2021-03 Yes [id number] INJECT 1.8 [facility] 2-SOILA 0.6 1-17 MG UNDER ity of mg/0.1 mL 00:00: THE SKIN [place] (18 mg/3 00 IN THE Medical mL) MORNING. Branch injection BACLOFEN 2021-03 Yes [id number] TAKE 1 [facility] mg tablet 1-17 TABLET BY ity o f 00:00: MOUTH 3 [place] 00 TIMES Medical DAILY *MAY Branch IMPAIR ALERTNESS* * VICTOZA 2021-03 Yes [id number] INJECT 1.8 [facility] 2-SOILA 0.6 1-17 MG UNDER ity of mg/0.1 mL 00:00: THE [place]IN [place] (18 mg/3 00 IN THE Medical mL) MORNING. Branch injection BACLOFEN 2021-03 Yes [id number] TAKE 1 [facility] mg tablet 1-17 TABLET BY ity o f 00:00: MOUTH 3 [place] 00 TIMES Medical DAILY *MAY Branch IMPAIR ALERTNESS* * VICTOZA 2021-03 Yes [id number] INJECT 1.8 [facility] 2-SOILA 0.6 1-17 MG UNDER ity of mg/0.1 mL 00:00: THE SKIN [place] (18 mg/3 00 IN THE Medical mL) MORNING. Branch injection BACLOFEN 2021-03 Yes [id number] TAKE 1 [facility] mg tablet 1-17 TABLET BY ity o f 00:00: MOUTH 3 [place] 00 TIMES Medical DAILY *MAY Branch IMPAIR ALERTNESS* * VICTOZA 2021-03 Yes [id number] INJECT 1.8 [facility] 2-SOILA 0.6 1-17 MG UNDER ity of mg/0.1 mL 00:00: THE [place]IN [place] (18 mg/3 00 IN THE Medical mL) MORNING. Branch injection VICTOZA 2021-03 Yes [id number] INJECT 1.8 [facility] 2-SOILA 0.6 1-17 MG UNDER ity of mg/0.1 mL 00:00: THE SKIN [place] (18 mg/3 00 IN THE Medical mL) MORNING. Branch injection VICTOZA 2021-03 Yes [id number] INJECT 1.8 [facility] 2-SOILA 0.6 1-17 MG UNDER ity of mg/0.1 mL 00:00: THE SKIN [place] (18 mg/3 00 IN THE Medical mL) MORNING. Branch injection VICTOZA 2021-03 Yes [id number] INJECT 1.8 [facility] 2-SOILA 0.6 1-17 MG UNDER ity of mg/0.1 mL 00:00: THE [place]IN [place] (18 mg/3 00 IN THE Medical mL) MORNING. Branch injection VICTOZA 2021-03 Yes [id number] INJECT 1.8 [facility] 2-SOILA 0.6 1-17 MG UNDER ity of mg/0.1 mL 00:00: THE [place]IN [place] (18 mg/3 00 IN THE Medical mL) MORNING. Branch injection VICTOZA 2021-03 Yes [id number] INJECT 1.8 [facility] 2-SOILA 0.6 1-17 MG UNDER ity of mg/0.1 mL 00:00: THE [place]IN [place] (18 mg/3 00 IN THE Medical mL) MORNING. Branch injection VICTOZA 2021-03 Yes [id number] INJECT 1.8 [facility] 2-SOILA 0.6 1-17 MG UNDER ity of mg/0.1 mL 00:00: THE [place]IN [place] (18 mg/3 00 IN THE Medical mL) MORNING. Branch injection VICTOZA 2021-03 Yes [id number] INJECT 1.8 [facility] 2-SOILA 0.6 1-17 MG UNDER ity of mg/0.1 mL 00:00: THE [place]IN [place] (18 mg/3 00 IN THE Medical mL) MORNING. Branch injection VICTOZA 2021-03 Yes [id number] INJECT 1.8 [facility] 2-SOILA 0.6 1-17 MG UNDER ity of mg/0.1 mL 00:00: THE [place] (18 mg/3 00 IN THE Medical mL) MORNING. Branch injection VICTOZA 2021-03 Yes [id number] INJECT 1.8 [facility] 2-SOILA 0.6 1-17 MG UNDER ity of mg/0.1 mL 00:00: THE [place] (18 mg/3 00 IN THE Medical mL) MORNING. Branch injection VICTOZA 2021-03- No [id number] INJECT 1.8 [facility] 2-SOILA 0.6 1-17 12-30 MG UNDER ity o f mg/0.1 mL 00:00: 00:00 THE SKIN [place] (18 mg/3 00 :00 IN THE Medical mL) MORNING. Branch injection VICTOZA 2021-03- No [id number] INJECT 1.8 [facility] 2-SOILA 0.6 1-17 12-30 MG UNDER ity o f mg/0.1 mL 00:00: 00:00 THE SKIN [place] (18 mg/3 00 :00 IN THE Medical mL) MORNING. Branch injection VICTOZA 2021-03 No [id number] INJECT 1.8 [facility] 2-SOILA 0.6 1-17 12-30 MG UNDER ity o f mg/0.1 mL 00:00: 00:00 THE SKIN [place] (18 mg/3 00 :00 IN THE Medical mL) MORNING. Branch injection BACLOFEN 20 2021-03- No [id number] TAKE 1 [facility] mg tablet 1-17 12-12 TABLET BY ity of 00:00: 00:00 MOUTH 3 [place] 00 :00 TIMES Medical DAILY *MAY Branch IMPAIR ALERTNESS* * 2021-03 Yes [id number] INJECT 72 [facility] SOLOSTAR 1-16 UNITS ity of U-300 00:00: UNDER THE [place] INSULIN 300 00 SKIN ONCE Med ical unit/mL DAILY IN Branch (1.5 mL) THE InPn EVENING (ADJUSTING DOSE BY 2 UNITS DAILY UNTIL FASTING BLOOD SUGAR LESS THAN 200) JANAE 2021-03 Yes [id number] INJECT 72 [facility] SOLOSTAR 1-16 UNITS ity of U-300 00:00: UNDER THE [place] INSULIN 300 00 SKIN ONCE Med ical unit/mL DAILY IN Branch (1.5 mL) THE InPn EVENING (ADJUSTING DOSE BY 2 UNITS DAILY UNTIL FASTING BLOOD SUGAR LESS THAN 200) JEO 2021-03 Yes [id number] INJECT 72 [facility] SOLOSTAR 1-16 UNITS ity of U-300 00:00: UNDER THE [place] INSULIN 300 00 SKIN ONCE Med ical unit/mL DAILY IN Branch (1.5 mL) THE InPn EVENING (ADJUSTING DOSE BY 2 UNITS DAILY UNTIL FASTING BLOOD SUGAR LESS THAN 200) TOUJEO 2021-03 Yes [id number] INJECT 72 Un reiiner SOLOSTAR 1-16 UNITS ity of U-300 00:00: UNDER THE [place] INSULIN 300 00 SKIN ONCE Med ical unit/mL DAILY IN Branch (1.5 mL) THE InPn EVENING (ADJUSTING DOSE BY 2 UNITS DAILY UNTIL FASTING BLOOD SUGAR LESS THAN 200) TOUJEO 2021-03 Yes [id number] INJECT 72 [facility] SOLOSTAR 1-16 UNITS ity of U-300 00:00: UNDER THE [place] INSULIN 300 00 SKIN ONCE Med ical unit/mL DAILY IN Branch (1.5 mL) THE InPn EVENING (ADJUSTING DOSE BY 2 UNITS DAILY UNTIL FASTING BLOOD SUGAR LESS THAN 200) TOUJEO 2021-03 Yes [id number] INJECT 72 [facility] SOLOSTAR 1-16 UNITS ity of U-300 00:00: UNDER THE [place] INSULIN 300 00 SKIN ONCE Med ical unit/mL DAILY IN Branch (1.5 mL) THE InPn EVENING (ADJUSTING DOSE BY 2 UNITS DAILY UNTIL FASTING BLOOD SUGAR LESS THAN 200) TOUJEO 2021-03 Yes [id number] INJECT 72 [facility] SOLOSTAR 1-16 UNITS ity of U-300 00:00: UNDER THE [place] INSULIN 300 00 SKIN ONCE Med ical unit/mL DAILY IN Branch (1.5 mL) THE InPn EVENING (ADJUSTING DOSE BY 2 UNITS DAILY UNTIL FASTING BLOOD SUGAR LESS THAN 200) TOUJEO 2021-03 Yes [id number] INJECT 72 [facility] SOLOSTAR 1-16 UNITS ity of U-300 00:00: UNDER THE [place] INSULIN 300 00 SKIN ONCE Med ical unit/mL DAILY IN Branch (1.5 mL) THE InPn EVENING (ADJUSTING DOSE BY 2 UNITS DAILY UNTIL FASTING BLOOD SUGAR LESS THAN 200) TOUJEO 2021-03 Yes [id number] INJECT 72 [facility] [place] SOLOSTAR 1-16 UNITS ity of U-300 00:00: UNDER THE [place] INSULIN 300 00 SKIN ONCE Med ical unit/mL DAILY IN Branch (1.5 mL) THE InPn EVENING (ADJUSTING DOSE BY 2 UNITS DAILY UNTIL FASTING BLOOD SUGAR LESS THAN 200) TOUJEO 2021-03 Yes [id number] INJECT 72 [facility] SOLOSTAR 1-16 UNITS ity of U-300 00:00: UNDER THE [place] INSULIN 300 00 SKIN ONCE Med ical unit/mL DAILY IN Branch (1.5 mL) THE InPn EVENING (ADJUSTING DOSE BY 2 UNITS DAILY UNTIL FASTING BLOOD SUGAR LESS THAN 200) TOUJEO 2021-03 Yes [id number] INJECT 72 [facility] SOLOSTAR 1-16 UNITS ity of U-300 00:00: UNDER THE [place] INSULIN 300 00 SKIN ONCE Med ical unit/mL DAILY IN Branch (1.5 mL) THE InPn EVENING (ADJUSTING DOSE BY 2 UNITS DAILY UNTIL FASTING BLOOD SUGAR LESS THAN 200) TOUO 2021-03 Yes [id number] INJECT 72 [facility] SOLOSTAR 1-16 UNITS ity of U-300 00:00: UNDER THE [place] INSULIN 300 00 SKIN ONCE Med ical unit/mL DAILY IN Branch (1.5 mL) THE InPn EVENING (ADJUSTING DOSE BY 2 UNITS DAILY UNTIL FASTING BLOOD SUGAR LESS THAN 200) TOO 2021-03 Yes [id number] INJECT 72 [facility] SOLOSTAR 1-16 UNITS ity of U-300 00:00: UNDER THE [place] INSULIN 300 00 SKIN ONCE Med ical unit/mL DAILY IN Branch (1.5 mL) THE InPn EVENING (ADJUSTING DOSE BY 2 UNITS DAILY UNTIL FASTING BLOOD SUGAR LESS THAN 200) TOUJEO 2021-03 Yes [id number] INJECT 72 Un [facility] SOLOSTAR 1-16 UNITS ity of U-300 00:00: UNDER THE [place] INSULIN 300 00 SKIN ONCE Med ical unit/mL DAILY IN Branch (1.5 mL) THE InPn EVENING (ADJUSTING DOSE BY 2 UNITS DAILY UNTIL FASTING BLOOD SUGAR LESS THAN 200) TOUJEO 2021-03 Yes [id number] INJECT 72 Un [facility] SOLOSTAR 1-16 UNITS ity of U-300 00:00: UNDER THE [place] INSULIN 300 00 SKIN ONCE Med ical unit/mL DAILY IN Branch (1.5 mL) THE InPn EVENING (ADJUSTING DOSE BY 2 UNITS DAILY UNTIL FASTING BLOOD SUGAR LESS THAN 200) JEO 2021-03 Yes [id number] INJECT 72 Un [facility] SOLOSTAR 1-16 UNITS ity of U-300 00:00: UNDER THE [place] INSULIN 300 00 SKIN ONCE Med ical unit/mL DAILY IN Branch (1.5 mL) THE InPn EVENING (ADJUSTING DOSE BY 2 UNITS DAILY UNTIL FASTING BLOOD SUGAR LESS THAN 200) TOUJEO 2021-03 Yes [id number] INJECT 72 Un [facility] SOLOSTAR 1-16 UNITS ity of U-300 00:00: UNDER THE [place] INSULIN 300 00 SKIN ONCE Med ical unit/mL DAILY IN Branch (1.5 mL) THE InPn EVENING (ADJUSTING DOSE BY 2 UNITS DAILY UNTIL FASTING BLOOD SUGAR LESS THAN 200) TOUJEO 2021-03 Yes [id number] INJECT 72 Un [facility] SOLOSTAR 1-16 UNITS ity of U-300 00:00: UNDER THE [place] INSULIN 300 00 SKIN ONCE Med ical unit/mL DAILY IN Branch (1.5 mL) THE InPn EVENING (ADJUSTING DOSE BY 2 UNITS DAILY UNTIL FASTING BLOOD SUGAR LESS THAN 200) TOUJEO 2021-03 Yes [id number] INJECT 72 Un [facility] SOLOSTAR 1-16 UNITS ity of U-300 00:00: UNDER THE [place] INSULIN 300 00 SKIN ONCE Med ical unit/mL DAILY IN Branch (1.5 mL) THE InPn EVENING (ADJUSTING DOSE BY 2 UNITS DAILY UNTIL FASTING BLOOD SUGAR LESS THAN 200) TOUJEO 2021-03 Yes [id number] INJECT 72 Un [facility] SOLOSTAR 1-16 UNITS ity of U-300 00:00: UNDER THE [place] INSULIN 300 00 SKIN ONCE Med ical unit/mL DAILY IN Branch (1.5 mL) THE InPn EVENING (ADJUSTING DOSE BY 2 UNITS DAILY UNTIL FASTING BLOOD SUGAR LESS THAN 200) TOUJEO 2021-03 Yes [id number] INJECT 72 Un rein[facility] SOLOSTAR 1-16 UNITS ity of U-300 00:00: UNDER THE [place] INSULIN 300 00 SKIN ONCE Med ical unit/mL DAILY IN Branch (1.5 mL) THE InPn EVENING (ADJUSTING DOSE BY 2 UNITS DAILY UNTIL FASTING BLOOD SUGAR LESS THAN 200) TOUJEO 2021-03 Yes [id number] INJECT 72 Un [facility] SOLOSTAR 1-16 UNITS ity of U-300 00:00: UNDER THE [place] INSULIN 300 00 SKIN ONCE Med ical unit/mL DAILY IN Branch (1.5 mL) THE InPn EVENING (ADJUSTING DOSE BY 2 UNITS DAILY UNTIL FASTING BLOOD SUGAR LESS THAN 200) SILVIANO 2021-03- No [id number] INJECT 72 U nivers SOLOSTAR 1-16 12-27 UNITS ity of U-300 00:00: 00:00 UNDER THE [place] INSULIN 300 00 :00 SKIN ONCE Med ical unit/mL DAILY IN Branch (1.5 mL) THE InPn EVENING (ADJUSTING DOSE BY 2 UNITS DAILY UNTIL FASTING BLOOD SUGAR LESS THAN 200) HARRY 2021-03- No [id number] INJECT 72 U nivers SOLOSTAR 1-16 12-27 UNITS ity of U-300 00:00: 00:00 UNDER THE [place] INSULIN 300 00 :00 SKIN ONCE Med ical unit/mL DAILY IN Branch (1.5 mL) THE InPn EVENING (ADJUSTING DOSE BY 2 UNITS DAILY UNTIL FASTING BLOOD SUGAR LESS THAN 200) HARRY 2021-03- No [id number] INJECT 72 U nivers SOLOSTAR 1-16 12-27 UNITS ity of U-300 00:00: 00:00 UNDER THE [place] INSULIN 300 00 :00 SKIN ONCE Med ical unit/mL DAILY IN Branch (1.5 mL) THE InPn EVENING (ADJUSTING DOSE BY 2 UNITS DAILY UNTIL FASTING BLOOD SUGAR LESS THAN 200) HYDROXYZINE 2021-03 Yes [id number] TAKE 1 [facility] 50 mg 1-15 TABLET BY ity of tablet 00:00: MOUTH 3 [place] 00 TIMES Medical DAILY Branch NEEDED FOR ITCHING OR ANXIETY. *MAY IMPAIR ALERTNESS* * HYDROXYZINE 2021-03 Yes [id number] TAKE 1 [facility] 50 mg 1-15 TABLET BY ity of tablet 00:00: MOUTH 3 [place] 00 TIMES Medical DAILY Branch NEEDED FOR ITCHING OR ANXIETY. *MAY IMPAIR ALERTNESS* * IBUPROFEN 2021-03 Yes [id number] TAKE 1 U nivers 800 mg 1-15 TABLET BY ity of tablet 00:00: MOUTH [place] 00 EVERY 6 Medical HOURS WITH Branch FOOD NEEDED FOR PAIN *DO NOT TAKE ASPIRIN* HYDROXYZINE 2021-03 Yes [id number] TAKE 1 [facility] 50 mg 1-15 TABLET BY ity of tablet 00:00: MOUTH 3 [place] 00 TIMES Medical DAILY Branch NEEDED FOR ITCHING OR ANXIETY. *MAY IMPAIR ALERTNESS* * IBUPROFEN 2021-03 Yes [id number] TAKE 1 U nivers 800 mg 1-15 TABLET BY ity of tablet 00:00: MOUTH [place] 00 EVERY 6 Medical HOURS WITH Branch FOOD NEEDED FOR PAIN *DO NOT TAKE ASPIRIN* HYDROXYZINE 2021-03 Yes [id number] TAKE 1 [facility] 50 mg 1-15 TABLET BY ity of tablet 00:00: MOUTH 3 [place] 00 TIMES Medical DAILY Branch NEEDED FOR ITCHING OR ANXIETY. *MAY IMPAIR ALERTNESS* * IBUPROFEN 2021-03 Yes [id number] TAKE 1 U nivers 800 mg 1-15 TABLET BY ity of tablet 00:00: MOUTH [place] 00 EVERY 6 Medical HOURS WITH Branch FOOD NEEDED FOR PAIN *DO NOT TAKE ASPIRIN* HYDROXYZINE 2021-03 Yes [id number] TAKE 1 [facility] 50 mg 1-15 TABLET BY ity of tablet 00:00: MOUTH 3 [place] 00 TIMES Medical DAILY Branch NEEDED FOR ITCHING OR ANXIETY. *MAY IMPAIR ALERTNESS* * IBUPROFEN 2021-03 Yes [id number] TAKE 1 U nivers 800 mg 1-15 TABLET BY ity of tablet 00:00: MOUTH [place] 00 EVERY 6 Medical HOURS WITH Branch FOOD NEEDED FOR PAIN *DO NOT TAKE ASPIRIN* HYDROXYZINE 2021-03 Yes [id number] TAKE 1 [facility] 50 mg 1-15 TABLET BY ity of tablet 00:00: MOUTH 3 [place] 00 TIMES Medical DAILY Branch NEEDED FOR ITCHING OR ANXIETY. *MAY IMPAIR ALERTNESS* * IBUPROFEN 2021-03 Yes [id number] TAKE 1 U nivers 800 mg 1-15 TABLET BY ity of tablet 00:00: MOUTH [place] 00 EVERY 6 Medical HOURS WITH Branch FOOD NEEDED FOR PAIN *DO NOT TAKE ASPIRIN* HYDROXYZINE 2021-03 Yes [id number] TAKE 1 [facility] 50 mg 1-15 TABLET BY ity of tablet 00:00: MOUTH 3 [place] 00 TIMES Medical DAILY Branch NEEDED FOR ITCHING OR ANXIETY. *MAY IMPAIR ALERTNESS* * IBUPROFEN 2021-03 Yes [id number] TAKE 1 U nivers 800 mg 1-15 TABLET BY ity of tablet 00:00: MOUTH [place] 00 EVERY 6 Medical HOURS WITH Branch FOOD NEEDED FOR PAIN *DO NOT TAKE ASPIRIN* HYDROXYZINE 2021-03 Yes [id number] TAKE 1 [facility] 50 mg 1-15 TABLET BY ity of tablet 00:00: MOUTH 3 [place] 00 TIMES Medical DAILY Branch NEEDED FOR ITCHING OR ANXIETY. *MAY IMPAIR ALERTNESS* * IBUPROFEN 2021-03 Yes [id number] TAKE 1 U nivers 800 mg 1-15 TABLET BY ity of tablet 00:00: MOUTH [place] 00 EVERY 6 Medical HOURS WITH Branch FOOD NEEDED FOR PAIN *DO NOT TAKE ASPIRIN* HYDROXYZINE 2021-03 Yes [id number] TAKE 1 [facility] 50 mg 1-15 TABLET BY ity of tablet 00:00: MOUTH 3 [place] 00 TIMES Medical DAILY Branch NEEDED FOR ITCHING OR ANXIETY. *MAY IMPAIR ALERTNESS* * IBUPROFEN 2021-03 Yes [id number] TAKE 1 U nivers 800 mg 1-15 TABLET BY ity of tablet 00:00: MOUTH [place] 00 EVERY 6 Medical HOURS WITH Branch FOOD NEEDED FOR PAIN *DO NOT TAKE ASPIRIN* HYDROXYZINE 2021-03 Yes [id number] TAKE 1 [facility] 50 mg 1-15 TABLET BY ity of tablet 00:00: MOUTH 3 [place] 00 TIMES Medical DAILY Branch NEEDED FOR ITCHING OR ANXIETY. *MAY IMPAIR ALERTNESS* * IBUPROFEN 2021-03 Yes [id number] TAKE 1 [facility] nivers 800 mg 1-15 TABLET BY ity of tablet 00:00: MOUTH [place] 00 EVERY 6 Medical HOURS WITH Branch FOOD NEEDED FOR PAIN *DO NOT TAKE ASPIRIN* HYDROXYZINE 2021-03 Yes [id number] TAKE 1 [facility] 50 mg 1-15 TABLET BY ity of tablet 00:00: MOUTH 3 [place] 00 TIMES Medical DAILY Branch NEEDED FOR ITCHING OR ANXIETY. *MAY IMPAIR ALERTNESS* * IBUPROFEN 2021-03 Yes [id number] TAKE 1 U nivers 800 mg 1-15 TABLET BY ity of tablet 00:00: MOUTH [place] 00 EVERY 6 Medical HOURS WITH Branch FOOD NEEDED FOR PAIN *DO NOT TAKE ASPIRIN* HYDROXYZINE 2021-03 Yes [id number] TAKE 1 [facility] 50 mg 1-15 TABLET BY ity of tablet 00:00: MOUTH 3 [place] 00 TIMES Medical DAILY Branch NEEDED FOR ITCHING OR ANXIETY. *MAY IMPAIR ALERTNESS* * IBUPROFEN 2021-03 Yes [id number] TAKE 1 U nivers 800 mg 1-15 TABLET BY ity of tablet 00:00: MOUTH [place] 00 EVERY 6 Medical HOURS WITH Branch FOOD NEEDED FOR PAIN *DO NOT TAKE ASPIRIN* HYDROXYZINE 2021-03 Yes [id number] TAKE 1 [facility] 50 mg 1-15 TABLET BY ity of tablet 00:00: MOUTH 3 [place] 00 TIMES Medical DAILY Branch NEEDED FOR ITCHING OR ANXIETY. *MAY IMPAIR ALERTNESS* * HYDROXYZINE 2021-03 Yes [id number] TAKE 1 [facility] 50 mg 1-15 TABLET BY ity of tablet 00:00: MOUTH 3 [place] 00 TIMES Medical DAILY Branch NEEDED FOR ITCHING OR ANXIETY. *MAY IMPAIR ALERTNESS* * HYDROXYZINE 2021-03 Yes [id number] TAKE 1 [facility] 50 mg 1-15 TABLET BY ity of tablet 00:00: MOUTH 3 [place] 00 TIMES Medical DAILY Branch NEEDED FOR ITCHING OR ANXIETY. *MAY IMPAIR ALERTNESS* * HYDROXYZINE 2021-03 Yes [id number] TAKE 1 [facility] 50 mg 1-15 TABLET BY ity of tablet 00:00: MOUTH 3 [place] 00 TIMES Medical DAILY Branch NEEDED FOR ITCHING OR ANXIETY. *MAY IMPAIR ALERTNESS* * HYDROXYZINE 2021-03 Yes [id number] TAKE 1 [facility] 50 mg 1-15 TABLET BY ity of tablet 00:00: MOUTH 3 [place] 00 TIMES Medical DAILY Branch NEEDED FOR ITCHING OR ANXIETY. *MAY IMPAIR ALERTNESS* * HYDROXYZINE 2021-03 Yes [id number] TAKE 1 [facility] 50 mg 1-15 TABLET BY ity of tablet 00:00: MOUTH 3 [place] 00 TIMES Medical DAILY Branch NEEDED FOR ITCHING OR ANXIETY. *MAY IMPAIR ALERTNESS* * HYDROXYZINE 2021-03 Yes [id number] TAKE 1 [facility] 50 mg 1-15 TABLET BY ity of tablet 00:00: MOUTH 3 [place] 00 TIMES Medical DAILY Branch NEEDED FOR ITCHING OR ANXIETY. *MAY IMPAIR ALERTNESS* * HYDROXYZINE 2021-03 Yes [id number] TAKE 1 [facility] 50 mg 1-15 TABLET BY ity of tablet 00:00: MOUTH 3 [place] 00 TIMES Medical DAILY Branch NEEDED FOR ITCHING OR ANXIETY. *MAY IMPAIR ALERTNESS* * HYDROXYZINE 2021-03 Yes [id number] TAKE 1 [facility] 50 mg 1-15 TABLET BY ity of tablet 00:00: MOUTH 3 [place] 00 TIMES Medical DAILY Branch NEEDED FOR ITCHING OR ANXIETY. *MAY IMPAIR ALERTNESS* * HYDROXYZINE 2021-03 Yes [id number] TAKE 1 [facility] 50 mg 1-15 TABLET BY ity of tablet 00:00: MOUTH 3 [place] 00 TIMES Medical DAILY Branch NEEDED FOR ITCHING OR ANXIETY. *MAY IMPAIR ALERTNESS* * HYDROXYZINE 2021-03 Yes [id number] TAKE 1 [facility] 50 mg 1-15 TABLET BY ity of tablet 00:00: MOUTH 3 [place] 00 TIMES Medical DAILY Branch NEEDED FOR ITCHING OR ANXIETY. *MAY IMPAIR ALERTNESS* * HYDROXYZINE 2021-03 Yes [id number] TAKE 1 [facility] 50 mg 1-15 TABLET BY ity of tablet 00:00: MOUTH 3 [place] 00 TIMES Medical DAILY Branch NEEDED FOR ITCHING OR ANXIETY. *MAY IMPAIR ALERTNESS* * HYDROXYZINE 2021-03- No [id number] TAKE 1 [facility] 50 mg 1-15 12-23 TABLET BY ity of tablet 00:00: 00:00 MOUTH 3 [place] 00 :00 TIMES Medical DAILY Branch NEEDED FOR ITCHING OR ANXIETY. *MAY IMPAIR ALERTNESS* * HYDROXYZINE 2021-03- No [id number] TAKE 1 [facility] 50 mg 1-15 12-23 TABLET BY ity of tablet 00:00: 00:00 MOUTH 3 [place] 00 :00 TIMES Medical DAILY Branch NEEDED FOR ITCHING OR ANXIETY. *MAY IMPAIR ALERTNESS* * HYDROXYZINE 2021-03- No [id number] TAKE 1 [facility] 50 mg 1-15 12-23 TABLET BY ity of tablet 00:00: 00:00 MOUTH 3 [place] 00 :00 TIMES Medical DAILY Branch NEEDED FOR ITCHING OR ANXIETY. *MAY IMPAIR ALERTNESS* * IBUPROFEN 2021-03- No [id number] TAKE 1 [facility] 800 mg 1-15 12-07 TABLET BY ity of tablet 00:00: 00:00 MOUTH [place] 00 :00 EVERY 6 Medical HOURS WITH Branch FOOD NEEDED FOR PAIN *DO NOT TAKE ASPIRIN* sulfamethox 2021-03 Yes [id number] TAKE 1 [facility] azole-trime 0-31 TABLET BY ity of thoprim 00:00: MOUTH 2 [place] 800-160 mg 00 TIMES Medical per tablet DAILY WITH Bra nch A GLASS OF WATER sulfamethox 2021-03 Yes [id number] TAKE 1 [facility] azole-trime 0-31 TABLET BY ity of thoprim 00:00: MOUTH 2 [place] 800-160 mg 00 TIMES Medical per tablet DAILY WITH Bra nch A GLASS OF WATER sulfamethox 2021-03 Yes [id number] TAKE 1 [facility] azole-trime 0-31 TABLET BY ity of thoprim 00:00: MOUTH 2 [place] 800-160 mg 00 TIMES Medical per tablet DAILY WITH Bra nch A GLASS OF WATER sulfamethox 2021-03 Yes [id number] TAKE 1 [facility] azole-trime 0-31 TABLET BY ity of thoprim 00:00: MOUTH 2 [place] 800-160 mg 00 TIMES Medical per tablet DAILY WITH Bra nch A GLASS OF WATER sulfamethox 2021-03 Yes [id number] TAKE 1 [facility] azole-trime 0-31 TABLET BY ity of thoprim 00:00: MOUTH 2 [place] 800-160 mg 00 TIMES Medical per tablet DAILY WITH Bra nch A GLASS OF WATER sulfamethox 2021-03 Yes [id number] TAKE 1 [facility] azole-trime 0-31 TABLET BY ity of thoprim 00:00: MOUTH 2 [place] 800-160 mg 00 TIMES Medical per tablet DAILY WITH Bra nch A GLASS OF WATER sulfamethox 2021-03 Yes [id number] TAKE 1 [facility] azole-trime 0-31 TABLET BY ity of thoprim 00:00: MOUTH 2 [place] 800-160 mg 00 TIMES Medical per tablet DAILY WITH Bra nch A GLASS OF WATER sulfamethox 2021-03 Yes [id number] TAKE 1 [facility] azole-trime 0-31 TABLET BY ity of thoprim 00:00: MOUTH 2 [place] 800-160 mg 00 TIMES Medical per tablet DAILY WITH Bra nch A GLASS OF WATER sulfamethox 2021-03 Yes [id number] TAKE 1 [facility] azole-trime 0-31 TABLET BY ity of thoprim 00:00: MOUTH 2 [place] 800-160 mg 00 TIMES Medical per tablet DAILY WITH Bra nch A GLASS OF WATER sulfamethox 2021-03- No [id number] TAKE 1 [facility] azole-trime 0-31 11-28 TABLET BY it y of thoprim 00:00: 00:00 MOUTH 2 [place] 800-160 mg 00 :00 TIMES Medical per tablet DAILY WITH Bra nch A GLASS OF WATER IBUPROFEN 2021-03 Yes [id number] TAKE 1 [facility] n[facility] 800 mg 0-27 TABLET BY ity of tablet 00:00: MOUTH [place] 00 EVERY 6 Medical HOURS WITH Branch FOOD NEEDED FOR PAIN *DO NOT TAKE ASPIRIN* POTASSIUM 2021-03 Yes [id number] TAKE 1 [facility] reinier CHLORIDE 10 0-27 TABLET BY ity of mEq CR 00:00: MOUTH [place] tablet 00 DAILY WITH Medical A GLASS OF Branch WATER IBUPROFEN 2021-03 Yes [id number] TAKE 1 U nivers 800 mg 0-27 TABLET BY ity of tablet 00:00: MOUTH [place] 00 EVERY 6 Medical HOURS WITH Branch FOOD NEEDED FOR PAIN *DO NOT TAKE ASPIRIN* POTASSIUM 2021-03 Yes [id number] TAKE 1 [facility] CHLORIDE 10 0-27 TABLET BY ity of mEq CR 00:00: MOUTH [place] tablet 00 DAILY WITH Medical A GLASS OF [facility] WATER IBUPROFEN 2021-03 Yes [id number] TAKE 1 [facility] 800 mg 0-27 TABLET BY ity of tablet 00:00: MOUTH [place] 00 EVERY 6 Medical HOURS WITH Branch FOOD NEEDED FOR PAIN *DO NOT TAKE ASPIRIN* POTASSIUM 2021-03 Yes [id number] TAKE 1 [facility] CHLORIDE 10 0-27 TABLET BY [facility] of mEq CR 00:00: MOUTH [place] tablet 00 DAILY WITH Medical A GLASS OF [facility] WATER POTASSIUM 2021-03 Yes [id number] TAKE 1 [facility] CHLORIDE 10 0-27 TABLET BY [facility]y of mEq CR 00:00: MOUTH [place] tablet 00 DAILY WITH Medical A GLASS OF [facility] WATER POTASSIUM 2021-03 Yes [id number] TAKE 1 [facility] CHLORIDE 10 0-27 TABLET BY [facility]y of mEq CR 00:00: MOUTH [place] tablet 00 DAILY WITH Medical A GLASS OF [facility] WATER POTASSIUM 2021-03 Yes [id number] TAKE 1 [facility] CHLORIDE 10 0-27 TABLET BY [facility]y of mEq CR 00:00: MOUTH [place] tablet 00 DAILY WITH Medical A GLASS OF [facility] WATER POTASSIUM 2021-03 Yes [id number] TAKE 1 [facility] CHLORIDE 10 0-27 TABLET BY [facility]y of mEq CR 00:00: MOUTH [place] tablet 00 DAILY WITH Medical A GLASS OF [facility] WATER POTASSIUM 2021-03 Yes [id number] TAKE 1 [facility] CHLORIDE 10 0-27 TABLET BY [facility]y of mEq CR 00:00: MOUTH [place] tablet 00 DAILY WITH Medical A GLASS OF [facility] WATER POTASSIUM 2021-03 Yes [id number] TAKE 1 [facility] CHLORIDE 10 0-27 TABLET BY [facility]y of mEq CR 00:00: MOUTH [place] tablet 00 DAILY WITH Medical A GLASS OF [facility] WATER POTASSIUM 2021-03 Yes [id number] TAKE 1 [facility] CHLORIDE 10 0-27 TABLET BY [facility]y of mEq CR 00:00: MOUTH [place] tablet 00 DAILY WITH Medical A GLASS OF [facility] WATER POTASSIUM 2021-03- No [id number] TAKE 1 [facility] CHLORIDE 10 0-27 11-28 TABLET BY it y of mEq CR 00:00: 00:00 MOUTH [place] tablet 00 :00 DAILY WITH Medical A GLASS OF [facility] WATER IBUPROFEN 2021-03- No [id number] TAKE 1 [facility] 800 mg 0-27 11-15 TABLET BY [facility]y of tablet 00:00: 00:00 MOUTH [place] 00 :00 EVERY 6 Medical HOURS WITH Branch FOOD NEEDED FOR PAIN *DO NOT TAKE ASPIRIN* [facility] [place] [id number] INJECT 72 [facility] SOLOSTAR 0-26 UNITS ity of U-300 00:00: UNDER THE [place] INSULIN 300 00 SKIN ONCE Med ical unit/mL DAILY IN Branch (1.5 mL) THE InPn EVENING (ADJUSTING DOSE BY 2 UNITS DAILY UNTIL FASTING BLOOD SUGAR LESS THAN 200) [facility] 2021-03 Yes [id number] INJECT 72 Un reinier SOLOSTAR 0-26 UNITS ity of U-300 00:00: UNDER THE [place] INSULIN 300 00 SKIN ONCE Med ical unit/mL DAILY IN Branch (1.5 mL) THE InPn EVENING (ADJUSTING DOSE BY 2 UNITS DAILY UNTIL FASTING BLOOD SUGAR LESS THAN 200) [facility] 2021-03 Yes [id number] INJECT 72 Un reinier SOLOSTAR 0-26 UNITS ity of U-300 00:00: UNDER THE [place] INSULIN 300 00 SKIN ONCE Med ical unit/mL DAILY IN Branch (1.5 mL) THE InPn EVENING (ADJUSTING DOSE BY 2 UNITS DAILY UNTIL FASTING BLOOD SUGAR LESS THAN 200) [facility] 2021-03 Yes [id number] INJECT 72 Un reinier SOLOSTAR 0-26 UNITS ity of U-300 00:00: UNDER THE [place] INSULIN 300 00 SKIN ONCE Med ical unit/mL DAILY IN Branch (1.5 mL) THE InPn EVENING (ADJUSTING DOSE BY 2 UNITS DAILY UNTIL FASTING BLOOD SUGAR LESS THAN 200) [facility] 2021-03 Yes [id number] INJECT 72 Un reinier SOLOSTAR 0-26 UNITS ity of U-300 00:00: UNDER THE [place] INSULIN 300 00 SKIN ONCE Med ical unit/mL DAILY IN Branch (1.5 mL) THE InPn EVENING (ADJUSTING DOSE BY 2 UNITS DAILY UNTIL FASTING BLOOD SUGAR LESS THAN 200) [facility] 2021-03 Yes [id number] INJECT 72 Un reinier SOLOSTAR 0-26 UNITS ity of U-300 00:00: UNDER THE [place] INSULIN 300 00 SKIN ONCE Med ical unit/mL DAILY IN Branch (1.5 mL) THE InPn EVENING (ADJUSTING DOSE BY 2 UNITS DAILY UNTIL FASTING BLOOD SUGAR LESS THAN 200) [facility] 2021-03- No [id number] INJECT 72 U nivers SOLOSTAR 0-26 11-16 UNITS ity of U-300 00:00: 00:00 UNDER THE [place] INSULIN 300 00 :00 SKIN ONCE Med ical unit/mL DAILY IN Branch (1.5 mL) THE InPn EVENING (ADJUSTING DOSE BY 2 UNITS DAILY UNTIL FASTING BLOOD SUGAR LESS THAN 200) HYDROcodone 2021-03 Yes [id number] TAKE 1 Univ ers -acetaminop 0-24 TABLET BY ity of hen 10-325 00:00: MOUTH [place] mg tablet 00 EVERY 4 Medical HOURS Branch NEEDED FOR PAIN (SCALE 4-6) *MAY MAKE DROWSY* Indication s: chronic pain HYDROcodone 2021-03 Yes 2745 TAKE 1 Univ ers -acetaminop 0-24 TABLET BY ity of hen 10-325 00:00: MOUTH [place] mg tablet 00 EVERY 4 Medical HOURS Branch NEEDED FOR PAIN (SCALE 4-6) *MAY MAKE DROWSY* Indication s: chronic pain HYDROcodone 2021-03 Yes 2745 TAKE 1 Univ ers -acetaminop 0-24 TABLET BY ity of hen 10-325 00:00: MOUTH [place] mg tablet 00 EVERY 4 Medical HOURS Branch NEEDED FOR PAIN (SCALE 4-6) *MAY MAKE DROWSY* Indication s: chronic pain HYDROcodone 2021-03 Yes 2745 TAKE 1 Univ ers -acetaminop 0-24 TABLET BY ity of hen 10-325 00:00: MOUTH [place] mg tablet 00 EVERY 4 Medical HOURS Branch NEEDED FOR PAIN (SCALE 4-6) *MAY MAKE DROWSY* Indication s: chronic pain HYDROcodone 2021-03 Yes 2745 TAKE 1 Univ ers -acetaminop 0-24 TABLET BY ity of hen 10-325 00:00: MOUTH [place] mg tablet 00 EVERY 4 Medical HOURS Branch NEEDED FOR PAIN (SCALE 4-6) *MAY MAKE DROWSY* Indication s: chronic pain HYDROcodone 2021-03 Yes 2745 TAKE 1 Univ ers -acetaminop 0-24 TABLET BY ity of hen 10-325 00:00: MOUTH [place] mg tablet 00 EVERY 4 Medical HOURS Branch NEEDED FOR PAIN (SCALE 4-6) *MAY MAKE DROWSY* Indication s: chronic pain HYDROcodone 2021-03 Yes 2745 TAKE 1 Univ ers -acetaminop 0-24 TABLET BY ity of hen 10-325 00:00: MOUTH [place] mg tablet 00 EVERY 4 Medical HOURS Branch NEEDED FOR PAIN (SCALE 4-6) *MAY MAKE DROWSY* Indication s: chronic pain HYDROcodone 2021-03 Yes 2745 TAKE 1 Univ ers -acetaminop 0-24 TABLET BY ity of hen 10-325 00:00: MOUTH [place] mg tablet 00 EVERY 4 Medical HOURS Branch NEEDED FOR PAIN (SCALE 4-6) *MAY MAKE DROWSY* Indication s: chronic pain HYDROcodone 2021-03 Yes 2745 TAKE 1 Univ ers -acetaminop 0-24 TABLET BY ity of hen 10-325 00:00: MOUTH [place] mg tablet 00 EVERY 4 Medical HOURS Branch NEEDED FOR PAIN (SCALE 4-6) *MAY MAKE DROWSY* Indication s: chronic pain HYDROcodone 2021-03 Yes 2745 TAKE 1 Univ ers -acetaminop 0-24 TABLET BY ity of hen 10-325 00:00: MOUTH [place] mg tablet 00 EVERY 4 Medical HOURS Branch NEEDED FOR PAIN (SCALE 4-6) *MAY MAKE DROWSY* Indication s: chronic pain HYDROcodone 2021-03 Yes 2745 TAKE 1 Univ ers -acetaminop 0-24 TABLET BY ity of hen 10-325 00:00: MOUTH [place] mg tablet 00 EVERY 4 Medical HOURS Branch NEEDED FOR PAIN (SCALE 4-6) *MAY MAKE DROWSY* Indication s: chronic pain HYDROcodone 2021-03 Yes 2745 TAKE 1 Univ ers -acetaminop 0-24 TABLET BY ity of hen 10-325 00:00: MOUTH [place] mg tablet 00 EVERY 4 Medical HOURS Branch NEEDED FOR PAIN (SCALE 4-6) *MAY MAKE DROWSY* Indication s: chronic pain HYDROcodone 2021-03 Yes 2745 TAKE 1 Univ ers -acetaminop 0-24 TABLET BY ity of hen 10-325 00:00: MOUTH [place] mg tablet 00 EVERY 4 Medical HOURS Branch NEEDED FOR PAIN (SCALE 4-6) *MAY MAKE DROWSY* Indication s: chronic pain HYDROcodone 2021-03 Yes 2745 TAKE 1 Univ ers -acetaminop 0-24 TABLET BY ity of hen 10-325 00:00: MOUTH [place] mg tablet 00 EVERY 4 Medical HOURS Branch NEEDED FOR PAIN (SCALE 4-6) *MAY MAKE DROWSY* Indication s: chronic pain HYDROcodone 2021-03- No 2745 TAKE 1 Uni vers -acetaminop 0-24 11-23 TABLET BY it y of hen 10-325 00:00: 00:00 MOUTH [place] mg tablet 00 :00 EVERY 4 Medical HOURS Branch NEEDED FOR PAIN (SCALE 4-6) *MAY MAKE DROWSY* Indication s: chronic pain CLOPIDOGREL 2021-03 Yes [id number] TAKE 1 Univers 75 mg 0-21 TABLET BY ity of tablet 00:00: MOUTH [place] 00 EVERY DAY Medical Branch PANTOPRAZOL 2021-03 Yes TAKE 1 Univ ers E 40 mg EC 0-21 TABLET BY ity of tablet 00:00: MOUTH ONCE [place] 00 DAILY Medical BEFORE A Branch MEAL LEVETIRACET 2021-03 Yes [id number] TAKE 1 Univers AM 1,000 mg 0-21 TABLET BY ity of tablet 00:00: MOUTH 2 [place] 00 TIMES Medical DAILY Branch METFORMIN 2021-03 Yes [id number] TAKE 2 Un reinier ER 500 mg 0-21 TABLETS BY ity of 24 hr 00:00: MOUTH 2 [place] tablet 00 TIMES Medical DAILY WITH Branch FOOD LATUDA 40 2021-03 Yes [id number] TAKE 1 U nivers mg tablet 0-21 TABLET BY ity o f 00:00: MOUTH AT [place] 00 BEDTIME. Medical Branch CLOPIDOGREL 2021-03 Yes [id number] TAKE 1 Univers 75 mg 0-21 TABLET BY ity of tablet 00:00: MOUTH [place] 00 EVERY DAY Medical Branch PANTOPRAZOL 2021-03 Yes TAKE 1 Univ ers E 40 mg EC 0-21 TABLET BY ity of tablet 00:00: MOUTH ONCE [place] 00 DAILY Medical BEFORE A Branch MEAL LEVETIRACET 2021-03 Yes [id number] TAKE 1 Univers AM 1,000 mg 0-21 TABLET BY ity of tablet 00:00: MOUTH 2 [place] 00 TIMES Medical DAILY Branch METFORMIN 2021-03 Yes [id number] TAKE 2 Un reinier ER 500 mg 0-21 TABLETS BY ity of 24 hr 00:00: MOUTH 2 [place] tablet 00 TIMES Medical DAILY WITH Branch FOOD LATUDA 40 2021-03 Yes [id number] TAKE 1 U nivers mg tablet 0-21 TABLET BY ity o f 00:00: MOUTH AT [place] BEDTIME. Medical Branch CLOPIDOGREL 2021-03 Yes [id number] TAKE 1 Univers 75 mg 0-21 TABLET BY ity of tablet 00:00: MOUTH EVERY DAY Medical Branch PANTOPRAZOL 2021-03 Yes TAKE 1 Univ ers E 40 mg EC 0-21 TABLET BY ity of tablet 00:00: MOUTH ONCE DAILY Medical BEFORE A Branch MEAL LEVETIRACET 2021-03 Yes [id number] TAKE 1 Univers AM 1,000 mg 0-21 TABLET BY ity of tablet 00:00: MOUTH 2 00 TIMES Medical DAILY Branch METFORMIN 2021-03 Yes [id number] TAKE 2 Un reinier ER 500 mg 0-21 TABLETS BY ity of 24 hr 00:00: MOUTH 2 [place] tablet 00 TIMES Medical DAILY WITH Branch FOOD LATUDA 40 2021-03 Yes [id number] TAKE 1 U nivers mg tablet 0-21 TABLET BY ity o f 00:00: MOUTH AT [place] BEDTIME. Medical Branch CLOPIDOGREL 2021-03 Yes [id number] TAKE 1 Univers 75 mg 0-21 TABLET BY ity of tablet 00:00: MOUTH EVERY DAY Medical Branch PANTOPRAZOL 2021-03 Yes TAKE 1 Univ ers E 40 mg EC 0-21 TABLET BY ity of tablet 00:00: MOUTH ONCE DAILY Medical BEFORE A Branch MEAL LEVETIRACET 2021-03 Yes [id number] TAKE 1 Univers AM 1,000 mg 0-21 TABLET BY ity of tablet 00:00: MOUTH 2 TIMES Medical DAILY Branch METFORMIN 2021-03 Yes [id number] TAKE 2 Un reinier ER 500 mg 0-21 TABLETS BY ity of 24 hr 00:00: MOUTH 2 [place] tablet 00 TIMES Medical DAILY WITH Branch FOOD LATUDA 40 2021-03 Yes [id number] TAKE 1 U nivers mg tablet 0-21 TABLET BY ity o f 00:00: MOUTH AT [place] BEDTIME. Medical Branch CLOPIDOGREL 2021-03 Yes [id number] TAKE 1 Univers 75 mg 0-21 TABLET BY ity of tablet 00:00: MOUTH EVERY DAY Medical Branch PANTOPRAZOL 2021-03 Yes TAKE 1 Univ ers E 40 mg EC 0-21 TABLET BY ity of tablet 00:00: MOUTH ONCE [place] 00 DAILY Medical BEFORE A Branch MEAL LEVETIRACET 2021-03 Yes [id number] TAKE 1 Univers AM 1,000 mg 0-21 TABLET BY ity of tablet 00:00: MOUTH 2 00 TIMES Medical DAILY Branch METFORMIN 2021-03 Yes [id number] TAKE 2 Un reinier ER 500 mg 0-21 TABLETS BY ity of 24 hr 00:00: MOUTH 2 [place] tablet 00 TIMES Medical DAILY WITH Branch FOOD LATUDA 40 2021-03 Yes [id number] TAKE 1 U nivers mg tablet 0-21 TABLET BY ity o f 00:00: MOUTH AT [place] 00 BEDTIME. Medical Branch CLOPIDOGREL 2021-03 Yes [id number] TAKE 1 Univers 75 mg 0-21 TABLET BY ity of tablet 00:00: MOUTH [place] 00 EVERY DAY Medical Branch PANTOPRAZOL 2021-03 Yes TAKE 1 Univ ers E 40 mg EC 0-21 TABLET BY ity of tablet 00:00: MOUTH ONCE [place] 00 DAILY Medical BEFORE A Branch MEAL LEVETIRACET 2021-03 Yes [id number] TAKE 1 Univers AM 1,000 mg 0-21 TABLET BY ity of tablet 00:00: MOUTH 2 00 TIMES Medical DAILY Branch METFORMIN 2021-03 Yes [id number] TAKE 2 Un reinier ER 500 mg 0-21 TABLETS BY ity of 24 hr 00:00: MOUTH 2 [place] tablet 00 TIMES Medical DAILY WITH Branch FOOD LATUDA 40 2021-03 Yes [id number] TAKE 1 U nivers mg tablet 0-21 TABLET BY ity o f 00:00: MOUTH AT [place] 00 BEDTIME. Medical Branch CLOPIDOGREL 2021-03 Yes [id number] TAKE 1 Univers 75 mg 0-21 TABLET BY ity of tablet 00:00: MOUTH [place] 00 EVERY DAY Medical Branch PANTOPRAZOL 2021-03 Yes TAKE 1 Univ ers E 40 mg EC 0-21 TABLET BY ity of tablet 00:00: MOUTH ONCE 00 DAILY Medical BEFORE A Branch MEAL LEVETIRACET 2021-03 Yes [id number] TAKE 1 Univers AM 1,000 mg 0-21 TABLET BY ity of tablet 00:00: MOUTH 2 [place] 00 TIMES Medical DAILY Branch METFORMIN 2021-03 Yes [id number] TAKE 2 Un reinier ER 500 mg 0-21 TABLETS BY ity of 24 hr 00:00: MOUTH 2 [place] tablet 00 TIMES Medical DAILY WITH Branch FOOD LATUDA 40 2021-03 Yes [id number] TAKE 1 U nivers mg tablet 0-21 TABLET BY ity o f 00:00: MOUTH AT [place] BEDTIME. Medical Branch CLOPIDOGREL 2021-03 Yes [id number] TAKE 1 Univers 75 mg 0-21 TABLET BY ity of tablet 00:00: MOUTH EVERY DAY Medical Branch PANTOPRAZOL 2021-03 Yes TAKE 1 Univ ers E 40 mg EC 0-21 TABLET BY ity of tablet 00:00: MOUTH ONCE DAILY Medical BEFORE A Branch MEAL LEVETIRACET 2021-03 Yes [id number] TAKE 1 Univers AM 1,000 mg 0-21 TABLET BY ity of tablet 00:00: MOUTH 2 00 TIMES Medical DAILY Branch METFORMIN 2021-03 Yes [id number] TAKE 2 Un reinier ER 500 mg 0-21 TABLETS BY ity of 24 hr 00:00: MOUTH 2 [place] tablet 00 TIMES Medical DAILY WITH Branch FOOD LATUDA 40 2021-03 Yes [id number] TAKE 1 U nivers mg tablet 0-21 TABLET BY ity o f 00:00: MOUTH AT [place] BEDTIME. Medical Branch CLOPIDOGREL 2021-03 Yes [id number] TAKE 1 Univers 75 mg 0-21 TABLET BY ity of tablet 00:00: MOUTH EVERY DAY Medical Branch PANTOPRAZOL 2021-03 Yes TAKE 1 Univ ers E 40 mg EC 0-21 TABLET BY ity of tablet 00:00: MOUTH ONCE DAILY Medical BEFORE A Branch MEAL LEVETIRACET 2021-03 Yes [id number] TAKE 1 [facility] AM 1,000 mg 0-21 TABLET BY ity of tablet 00:00: MOUTH 2 TIMES Medical DAILY Branch METFORMIN 2021-03 Yes [id number] TAKE 2 Un reinier ER 500 mg 0-21 TABLETS BY ity of 24 hr 00:00: MOUTH 2 [place] tablet 00 TIMES Medical DAILY WITH Branch FOOD LATUDA 40 2021-03 Yes [id number] TAKE 1 U nivers mg tablet 0-21 TABLET BY ity o f 00:00: MOUTH AT [place] BEDTIME. Medical Branch CLOPIDOGREL 2021-03 Yes [id number] TAKE 1 Univers 75 mg 0-21 TABLET BY ity of tablet 00:00: MOUTH EVERY DAY Medical Branch PANTOPRAZOL 2021-03 Yes TAKE 1 Univ ers E 40 mg EC 0-21 TABLET BY ity of tablet 00:00: MOUTH ONCE [place] 00 DAILY Medical BEFORE A Branch MEAL LEVETIRACET 2021-03 Yes [id number] TAKE 1 Univers AM 1,000 mg 0-21 TABLET BY ity of tablet 00:00: MOUTH 2 00 TIMES Medical DAILY Branch METFORMIN 2021-03 Yes [id number] TAKE 2 Un reinier ER 500 mg 0-21 TABLETS BY ity of 24 hr 00:00: MOUTH 2 [place] tablet 00 TIMES Medical DAILY WITH Branch FOOD LATUDA 40 2021-03 Yes [id number] TAKE 1 U nivers mg tablet 0-21 TABLET BY ity o f 00:00: MOUTH AT [place] 00 BEDTIME. Medical Branch CLOPIDOGREL 2021-03 Yes [id number] TAKE 1 [facility] 75 mg 0-21 TABLET BY ity of tablet 00:00: MOUTH [place] 00 EVERY DAY Medical Branch PANTOPRAZOL 2021-03 Yes TAKE 1 Univ ers E 40 mg EC 0-21 TABLET BY ity of tablet 00:00: MOUTH ONCE [place] 00 DAILY Medical BEFORE A Branch MEAL LEVETIRACET 2021-03 Yes [id number] TAKE 1 [facility] AM 1,000 mg 0-21 TABLET BY ity of tablet 00:00: MOUTH 2 00 TIMES Medical DAILY Branch METFORMIN 2021-03 Yes [id number] TAKE 2 Un reinier ER 500 mg 0-21 TABLETS BY ity of 24 hr 00:00: MOUTH 2 [place] tablet 00 TIMES Medical DAILY WITH Branch FOOD LATUDA 40 2021-03 Yes [id number] TAKE 1 U nivers mg tablet 0-21 TABLET BY ity o f 00:00: MOUTH AT [place] 00 BEDTIME. Medical Branch CLOPIDOGREL 2021-03 Yes [id number] TAKE 1 [facility] 75 mg 0-21 TABLET BY ity of tablet 00:00: MOUTH [place] 00 EVERY DAY Medical Branch PANTOPRAZOL 2021-03 Yes TAKE 1 Univ ers E 40 mg EC 0-21 TABLET BY ity of tablet 00:00: MOUTH ONCE 00 DAILY Medical BEFORE A Branch MEAL LEVETIRACET 2021-03 Yes [id number] TAKE 1 [facility] AM 1,000 mg 0-21 TABLET BY ity of tablet 00:00: MOUTH 2 [place] 00 TIMES Medical DAILY Branch METFORMIN 2021-03 Yes [id number] TAKE 2 Un reinier ER 500 mg 0-21 TABLETS BY ity of 24 hr 00:00: MOUTH 2 [place] tablet 00 TIMES Medical DAILY WITH Branch FOOD LATUDA 40 2021-03 Yes [id number] TAKE 1 U nivers mg tablet 0-21 TABLET BY ity o f 00:00: MOUTH AT [place] 00 BEDTIME. Medical Branch CLOPIDOGREL 2021-03 Yes [id number] TAKE 1 [facility] 75 mg 0-21 TABLET BY ity of tablet 00:00: MOUTH [place] 00 EVERY DAY Medical Branch PANTOPRAZOL 2021-03 Yes TAKE 1 Univ ers E 40 mg EC 0-21 TABLET BY ity of tablet 00:00: MOUTH ONCE [place] 00 DAILY Medical BEFORE A Branch MEAL LEVETIRACET 2021-03 Yes [id number] TAKE 1 [facility] AM 1,000 mg 0-21 TABLET BY ity of tablet 00:00: MOUTH 2 [place] 00 TIMES Medical DAILY Branch METFORMIN 2021-03 Yes [id number] TAKE 2 Un reinier ER 500 mg 0-21 TABLETS BY ity of 24 hr 00:00: MOUTH 2 [place] tablet 00 TIMES Medical DAILY WITH Branch FOOD LATUDA 40 2021-03 Yes [id number] TAKE 1 U nivers mg tablet 0-21 TABLET BY ity o f 00:00: MOUTH AT [place] [id number] BEDTIME. Medical Branch CLOPIDOGREL 2021-03- No [id number] TAKE 1 [facility] 75 mg 0-21 11-21 TABLET BY ity of tablet 00:00: 00:00 MOUTH [place] 00 :00 EVERY DAY Medical Branch PANTOPRAZOL 2021-03- No TAKE 1 Uni vers E 40 mg EC 0-21 11-21 TABLET BY ity of tablet 00:00: 00:00 MOUTH ONCE [place] 00 :00 DAILY Medical BEFORE A Branch MEAL LEVETIRACET 2021-03- No [id number] TAKE 1 [facility] AM 1,000 mg 0-21 11-21 TABLET BY it y of tablet 00:00: 00:00 MOUTH 2 [place] 00 :00 TIMES Medical DAILY Branch METFORMIN 2021-03- No [id number] TAKE 2 U nivers ER 500 mg 0-21 11-21 TABLETS BY ity of 24 hr 00:00: 00:00 MOUTH 2 [place] tablet 00 :00 TIMES Medical DAILY WITH Branch FOOD LATUDA 40 2021-03- No [id number] TAKE 1 [facility] mg tablet 0-21 11-21 TABLET BY ity of 00:00: 00:00 MOUTH AT [place] 00 :00 BEDTIME. Medical Branch ONETOUCH 2021-03 Yes [id number] USE Un reinier VERIO TEST 0-10 DIRECTED ity o f STRIPS 00:00: FOR THREE [place] strip 00 TIMES A Medical DAY BLOOD Branch GLUCOSE MONITORING Insulin 2021-03 Yes [id number] USE Uni vers [place], 0-10 DIRECTED ity of Disposable, 00:00: FOR [place] (SURE 00 INSULIN Medical COMFORT PEN ADMINISTRA Br anch NEEDLE) 32 TION gauge x 5/32" Ndle VICTOZA 2021-03 Yes [id number] 1.8mg INJECT 1.8 Univers 3-SOILA 0.6 0-10 MG UNDER ity of mg/0.1 mL 00:00: THE SKIN [place] (18 mg/3 00 IN THE Medical mL) MORNING. Branch injection ONETOUCH 2021-03 Yes [id number] USE Un reinier VERIO TEST 0-10 DIRECTED ity o f STRIPS 00:00: FOR THREE [place] strip 00 TIMES A Medical DAY BLOOD Branch GLUCOSE MONITORING Insulin 2021-03 Yes [id number] USE Uni vers [place], 0-10 DIRECTED ity of Disposable, 00:00: FOR [place] (SURE 00 INSULIN Medical COMFORT PEN ADMINISTRA Br anch NEEDLE) 32 TION gauge x 5/32" Ndle VICTOZA 2021-03 Yes [id number] 1.8mg INJECT 1.8 Univers 3-SOILA 0.6 0-10 MG UNDER ity of mg/0.1 mL 00:00: THE SKIN [place] ([place] mg/3 00 IN THE Medical mL) MORNING. Branch injection ONETOUCH 2021-03 Yes [id number] USE Un reinier VERIO TEST 0-10 DIRECTED ity o f STRIPS 00:00: FOR THREE [place] strip 00 TIMES A Medical DAY BLOOD Branch GLUCOSE MONITORING Insulin 2021-03 Yes [id number] USE Uni vers [place], 0-10 DIRECTED ity of Disposable, 00:00: FOR [place] (SURE 00 INSULIN Medical COMFORT PEN ADMINISTRA Br anch NEEDLE) 32 TION gauge x 5/32" Ndle VICTOZA 2021-03 Yes [id number] 1.8mg INJECT 1.8 Univers 3-SOILA 0.6 0-10 MG UNDER ity of mg/0.1 mL 00:00: THE SKIN [place] ([place] mg/3 00 IN THE Medical mL) MORNING. Branch injection ONETOUCH 2021-03 Yes [id number] USE Un reinier VERIO TEST 0-10 DIRECTED ity o f STRIPS 00:00: FOR THREE [place] strip 00 TIMES A Medical DAY BLOOD Branch GLUCOSE MONITORING Insulin 2021-03 Yes [id number] USE Uni vers [place], 0-10 DIRECTED ity of Disposable, 00:00: FOR [place] (SURE 00 INSULIN Medical COMFORT PEN ADMINISTRA Br anch NEEDLE) 32 TION gauge x 5/32" Ndle VICTOZA 2021-03 Yes [id number] 1.8mg INJECT 1.8 Univers 3-SOILA 0.6 0-10 MG UNDER ity of mg/0.1 mL 00:00: THE SKIN [place] ([place] mg/3 00 IN THE Medical mL) MORNING. Branch injection ONETOUCH 2021-03 Yes [id number] USE Un reinier VERIO TEST 0-10 DIRECTED ity o f STRIPS 00:00: FOR THREE [place] strip 00 TIMES A Medical DAY BLOOD Branch GLUCOSE MONITORING Insulin 2021-03 Yes [id number] USE Uni vers [place], 0-10 DIRECTED ity of Disposable, 00:00: FOR [place] (SURE 00 INSULIN Medical COMFORT PEN ADMINISTRA Br anch NEEDLE) 32 TION gauge x 5/32" Ndle VICTOZA 2021-03 Yes [id number] 1.8mg INJECT 1.8 Univers 3-SOILA 0.6 0-10 MG UNDER ity of mg/0.1 mL 00:00: THE SKIN [place] ([place] mg/3 00 IN THE Medical mL) MORNING. Branch injection ONETOUCH 2021-03 Yes [id number] USE Un reinier VERIO TEST 0-10 DIRECTED ity o f STRIPS 00:00: FOR THREE [place] strip 00 TIMES A Medical DAY BLOOD Branch GLUCOSE MONITORING Insulin 2021-03 Yes [id number] USE Uni vers [place], 0-10 DIRECTED ity of Disposable, 00:00: FOR [place] (SURE 00 INSULIN Medical COMFORT PEN ADMINISTRA Br anch NEEDLE) 32 TION gauge x 5/32" Ndle VICTOZA 2021-03 Yes [id number] 1.8mg INJECT 1.8 Univers 3-SOILA 0.6 0-10 MG UNDER ity of mg/0.1 mL 00:00: THE SKIN [place] ([place] mg/3 00 IN THE Medical mL) MORNING. Branch injection ONETOUCH 2021-03 Yes [id number] USE Un reinier VERIO TEST 0-10 DIRECTED ity o f STRIPS 00:00: FOR THREE [place] strip 00 TIMES A Medical DAY BLOOD Branch GLUCOSE MONITORING Insulin 2021-03 Yes [id number] USE Uni vers [place], 0-10 DIRECTED ity of Disposable, 00:00: FOR [place] (SURE 00 INSULIN Medical COMFORT PEN ADMINISTRA Br anch NEEDLE) 32 TION gauge x 5/32" Ndle VICTOZA 2021-03 Yes [id number] 1.8mg INJECT 1.8 Univers 3-SOILA 0.6 0-10 MG UNDER ity of mg/0.1 mL 00:00: THE SKIN [place] (18 mg/3 00 IN THE Medical mL) MORNING. Branch injection ONETOUCH 2021-03 Yes [id number] USE Un reinier VERIO TEST 0-10 DIRECTED ity o f STRIPS 00:00: FOR THREE [place] strip 00 TIMES A Medical DAY BLOOD Branch GLUCOSE MONITORING Insulin 2021-03 Yes [id number] USE Uni vers [place], 0-10 DIRECTED ity of Disposable, 00:00: FOR [place] (SURE 00 INSULIN Medical COMFORT PEN ADMINISTRA Br anch NEEDLE) 32 TION gauge x 5/32" Ndle VICTOZA 2021-03 Yes [id number] 1.8mg INJECT 1.8 Univers 3-SOILA 0.6 0-10 MG UNDER ity of mg/0.1 mL 00:00: THE SKIN [place] ([place] mg/3 00 IN THE Medical mL) MORNING. Branch injection ONETOUCH 2021-03 Yes [id number] USE Un reinier VERIO TEST 0-10 DIRECTED ity o f STRIPS 00:00: FOR THREE [place] strip 00 TIMES A Medical DAY BLOOD Branch GLUCOSE MONITORING Insulin 2021-03 Yes [id number] USE Uni vers [place], 0-10 DIRECTED ity of Disposable, 00:00: FOR [place] (SURE 00 INSULIN Medical COMFORT PEN ADMINISTRA Br anch NEEDLE) 32 TION gauge x 5/32" Ndle VICTOZA 2021-03 Yes [id number] 1.8mg INJECT 1.8 Univers 3-SOILA 0.6 0-10 MG UNDER ity of mg/0.1 mL 00:00: THE SKIN [place] (18 mg/3 00 IN THE Medical mL) MORNING. Branch injection ONETOUCH 2021-03 Yes [id number] USE Un reinier VERIO TEST 0-10 DIRECTED ity o f STRIPS 00:00: FOR THREE [place] strip 00 TIMES A Medical DAY BLOOD Branch GLUCOSE MONITORING Insulin 2021-03 Yes [id number] USE Uni vers [place], 0-10 DIRECTED ity of Disposable, 00:00: FOR [place] (SURE 00 INSULIN Medical COMFORT PEN ADMINISTRA Br anch NEEDLE) 32 TION gauge x 5/32" Ndle VICTOZA 2021-03 Yes [id number] 1.8mg INJECT 1.8 Univers 3-SOILA 0.6 0-10 MG UNDER ity of mg/0.1 mL 00:00: THE SKIN [place] (18 mg/3 00 IN THE Medical mL) MORNING. Branch injection ONETOUCH 2021-03 Yes [id number] USE Un reinier VERIO TEST 0-10 DIRECTED ity o f STRIPS 00:00: FOR THREE [place] strip 00 TIMES A Medical DAY BLOOD Branch GLUCOSE MONITORING Insulin 2021-03 Yes [id number] USE Uni vers [place], 0-10 DIRECTED ity of Disposable, 00:00: FOR [place] (SURE 00 INSULIN Medical COMFORT PEN ADMINISTRA Br anch NEEDLE) 32 TION gauge x 5/32" Ndle VICTOZA 2021-03 Yes [id number] 1.8mg INJECT 1.8 Univers 3-SOILA 0.6 0-10 MG UNDER ity of mg/0.1 mL 00:00: THE SKIN [place] ([place] mg/3 00 IN THE Medical mL) MORNING. Branch injection ONETOUCH 2021-03 Yes [id number] USE Un reinier VERIO TEST 0-10 DIRECTED ity o f STRIPS 00:00: FOR THREE [place] strip 00 TIMES A Medical DAY BLOOD Branch GLUCOSE MONITORING Insulin 2021-03 Yes [id number] USE Uni vers [place], 0-10 DIRECTED ity of Disposable, 00:00: FOR [place] (SURE 00 INSULIN Medical COMFORT PEN ADMINISTRA Br anch NEEDLE) 32 TION gauge x 5/32" Ndle VICTOZA 2021-03 Yes [id number] 1.8mg INJECT 1.8 [facility] 3-SOILA 0.6 0-10 MG UNDER ity of mg/0.1 mL 00:00: THE [place]IN [place] ([place] mg/3 00 IN THE Medical mL) MORNING. Branch injection ONETOUCH 2021-03 Yes [id number] USE Un reinier VERIO TEST 0-10 DIRECTED ity o f STRIPS 00:00: FOR THREE [place] strip 00 TIMES A Medical DAY BLOOD Branch GLUCOSE MONITORING Insulin 2021-03 Yes [id number] USE Uni vers [place], 0-10 DIRECTED ity of Disposable, 00:00: FOR [place] (SURE 00 INSULIN Medical COMFORT PEN ADMINISTRA Br anch NEEDLE) 32 TION gauge x 5/32" Ndle VICTOZA 2021-03 Yes [id number] 1.8mg INJECT 1.8 [facility] 3-SOILA 0.6 0-10 MG UNDER ity of mg/0.1 mL 00:00: THE SKIN [place] ([place] mg/3 00 IN THE Medical mL) MORNING. Branch injection ONETOUCH 2021-03 Yes [id number] USE Un reinier VERIO TEST 0-10 DIRECTED ity o f STRIPS 00:00: FOR THREE [place] strip 00 TIMES A Medical DAY BLOOD Branch GLUCOSE MONITORING Insulin 2021-03 Yes [id number] USE Uni vers [place], 0-10 DIRECTED ity of Disposable, 00:00: FOR [place] (SURE 00 INSULIN Medical COMFORT PEN ADMINISTRA Br anch NEEDLE) 32 TION gauge x 5/32" Ndle ONETOUCH 2021-03 Yes [id number] USE Un reinier VERIO TEST 0-10 DIRECTED ity o f STRIPS 00:00: FOR THREE [place] strip 00 TIMES A Medical DAY BLOOD Branch GLUCOSE MONITORING Insulin 2021-03 Yes [id number] USE Uni vers [place], 0-10 DIRECTED ity of Disposable, 00:00: FOR [place] (SURE 00 INSULIN Medical COMFORT PEN ADMINISTRA Br anch NEEDLE) 32 TION gauge x 5/32" Ndle ONETOUCH 2021-03 Yes [id number] USE Un reinier VERIO TEST 0-10 DIRECTED ity o f STRIPS 00:00: FOR THREE [place] strip 00 TIMES A Medical DAY BLOOD Branch GLUCOSE MONITORING Insulin 2021-03 Yes [id number] USE Uni vers [place], 0-10 DIRECTED ity of Disposable, 00:00: FOR [place] (SURE 00 INSULIN Medical COMFORT PEN ADMINISTRA Br anch NEEDLE) 32 TION gauge x 5/32" Ndle ONETOUCH 2021-03 Yes [id number] USE Un reinier VERIO TEST 0-10 DIRECTED ity o f STRIPS 00:00: FOR THREE [place] strip 00 TIMES A Medical DAY BLOOD Branch GLUCOSE MONITORING Insulin 2021-03 Yes [id number] USE Uni vers [place], 0-10 DIRECTED ity of Disposable, 00:00: FOR [place] (SURE 00 INSULIN Medical COMFORT PEN ADMINISTRA Br anch NEEDLE) 32 TION gauge x 5/32" Ndle ONETOUCH 2021-03 Yes [id number] USE Un reinier VERIO TEST 0-10 DIRECTED ity o f STRIPS 00:00: FOR THREE [place] strip 00 TIMES A Medical DAY BLOOD Branch GLUCOSE MONITORING Insulin 2021-03 Yes [id number] USE Uni vers [place], 0-10 DIRECTED ity of Disposable, 00:00: FOR [place] (SURE 00 INSULIN Medical COMFORT PEN ADMINISTRA Br anch NEEDLE) 32 TION gauge x 5/32" Ndle ONETOUCH 2021-03 Yes [id number] USE Un reinier VERIO TEST 0-10 DIRECTED ity o f STRIPS 00:00: FOR THREE [place] strip 00 TIMES A Medical DAY BLOOD Branch GLUCOSE MONITORING Insulin 2021-03 Yes [id number] USE Uni vers [place], 0-10 DIRECTED ity of Disposable, 00:00: FOR [place] (SURE 00 INSULIN Medical COMFORT PEN ADMINISTRA Br anch NEEDLE) 32 TION gauge x 5/32" Ndle ONETOUCH 2021-03 Yes [id number] USE Un reinier VERIO TEST 0-10 DIRECTED ity o f STRIPS 00:00: FOR THREE [place] strip 00 TIMES A Medical DAY BLOOD Branch GLUCOSE MONITORING ONETOUCH 2021-03 Yes [id number] USE Un reinier VERIO TEST 0-10 DIRECTED ity o f STRIPS 00:00: FOR THREE [place] strip 00 TIMES A Medical DAY BLOOD Branch GLUCOSE MONITORING ONETOUCH 2021-03 Yes [id number] USE Un reinier VERIO TEST 0-10 DIRECTED ity o f STRIPS 00:00: FOR THREE [place] strip 00 TIMES A Medical DAY BLOOD Branch GLUCOSE MONITORING ONETOUCH 2021-03- No [id number] USE U nivers VERIO TEST 0-10 12-07 DIRECTED ity of STRIPS 00:00: 00:00 FOR THREE [place] strip 00 :00 TIMES A Medical DAY BLOOD Branch GLUCOSE MONITORING ONETOUCH 2021-03- No [id number] USE U nivers VERIO TEST 0-10 12-07 DIRECTED ity of STRIPS 00:00: 00:00 FOR THREE [place] strip 00 :00 TIMES A Medical DAY BLOOD Branch GLUCOSE MONITORING ONETOUCH 2021-03- No [id number] USE U nivers VERIO TEST 02-26 DIRECTED ity of STRIPS 00:00: 00:00 FOR THREE [place] strip 00 :00 TIMES A Medical DAY BLOOD Branch GLUCOSE MONITORING Insulin 2021-03- No [id number] USE Un reinier [place], 002-24 DIRECTED ity of Disposable, 00:00: 00:00 FOR [place] (SURE 00 :00 INSULIN Medical COMFORT PEN ADMINISTRA Br anch NEEDLE) 32 TION gauge x 5/32" Ndle VICTOZA 2021-03- No [id number] 1.8mg INJECT 1.8 Univers 3-SOILA 0.6 010 11-17 MG UNDER ity o f mg/0.1 mL 00:00: 00:00 THE SKIN [place] as (18 mg/3 00 :00 IN THE Medical mL) MORNING. Branch injection PROMETHAZIN 2021-03 Yes [id number] TAKE 1 [facility] E 25 mg 0-03 TABLET BY ity of tablet 00:00: MOUTH 00 EVERY 6 Medical HOURS Branch NEEDED FOR NAUSEA AND VOMITING *MAY IMPAIR ALERTNESS* * PROMETHAZIN 2021-03 Yes [id number] TAKE 1 [facility] E 25 mg 0-03 TABLET BY ity of tablet 00:00: MOUTH 00 EVERY 6 Medical HOURS Branch NEEDED FOR NAUSEA AND VOMITING *MAY IMPAIR ALERTNESS* * PROMETHAZIN 2021-03 Yes [id number] TAKE 1 [facility] E 25 mg 0-03 TABLET BY ity of tablet 00:00: MOUTH 00 EVERY 6 Medical HOURS Branch NEEDED FOR NAUSEA AND VOMITING *MAY IMPAIR ALERTNESS* * PROMETHAZIN 2021-03 Yes [id number] TAKE 1 [facility] E 25 mg 0-03 TABLET BY ity of tablet 00:00: MOUTH 00 EVERY 6 Medical HOURS Branch NEEDED FOR NAUSEA AND VOMITING *MAY IMPAIR ALERTNESS* * PROMETHAZIN 2021-03 Yes [id number] TAKE 1 [facility] E 25 mg 0-03 TABLET BY ity of tablet 00:00: MOUTH 00 EVERY 6 Medical HOURS Branch NEEDED FOR NAUSEA AND VOMITING *MAY IMPAIR ALERTNESS* * PROMETHAZIN 2021-03 Yes [id number] TAKE 1 [facility] E 25 mg 0-03 TABLET BY ity of tablet 00:00: MOUTH [place] 00 EVERY 6 Medical HOURS Branch NEEDED FOR NAUSEA AND VOMITING *MAY IMPAIR ALERTNESS* * PROMETHAZIN 2021-03 Yes [id number] TAKE 1 [facility] E 25 mg 0-03 TABLET BY ity of tablet 00:00: MOUTH [place] 00 EVERY 6 Medical HOURS Branch NEEDED FOR NAUSEA AND VOMITING *MAY IMPAIR ALERTNESS* * PROMETHAZIN 2021-03 Yes [id number] TAKE 1 [facility] E 25 mg 0-03 TABLET BY ity of tablet 00:00: MOUTH [place] 00 EVERY 6 Medical HOURS Branch NEEDED FOR NAUSEA AND VOMITING *MAY IMPAIR ALERTNESS* * PROMETHAZIN 2021-03 Yes [id number] TAKE 1 [facility] E 25 mg 0-03 TABLET BY ity of tablet 00:00: MOUTH [place] 00 EVERY 6 Medical HOURS Branch NEEDED FOR NAUSEA AND VOMITING *MAY IMPAIR ALERTNESS* * PROMETHAZIN 2021-03 Yes [id number] TAKE 1 [facility] E 25 mg 0-03 TABLET BY ity of tablet 00:00: MOUTH [place] 00 EVERY 6 Medical HOURS Branch NEEDED FOR NAUSEA AND VOMITING *MAY IMPAIR ALERTNESS* * PROMETHAZIN 2021-03 Yes [id number] TAKE 1 [facility] E 25 mg 0-03 TABLET BY ity of tablet 00:00: MOUTH [place] 00 EVERY 6 Medical HOURS Branch NEEDED FOR NAUSEA AND VOMITING *MAY IMPAIR ALERTNESS* * PROMETHAZIN 2021-03 Yes [id number] TAKE 1 [facility] E 25 mg 0-03 TABLET BY ity of tablet 00:00: MOUTH [place] 00 EVERY 6 Medical HOURS Branch NEEDED FOR NAUSEA AND VOMITING *MAY IMPAIR ALERTNESS* * PROMETHAZIN 2021-03 Yes [id number] TAKE 1 [facility] E 25 mg 0-03 TABLET BY ity of tablet 00:00: MOUTH [place] 00 EVERY 6 Medical HOURS Branch NEEDED FOR NAUSEA AND VOMITING *MAY IMPAIR ALERTNESS* * PROMETHAZIN 2021-03 Yes [id number] TAKE 1 [facility] E 25 mg 0-03 TABLET BY ity of tablet 00:00: MOUTH [place] 00 EVERY 6 Medical HOURS Branch NEEDED FOR NAUSEA AND VOMITING *MAY IMPAIR ALERTNESS* * PROMETHAZIN 2021-03 Yes [id number] TAKE 1 [facility] E 25 mg 0-03 TABLET BY ity of tablet 00:00: MOUTH [place] 00 EVERY 6 Medical HOURS Branch NEEDED FOR NAUSEA AND VOMITING *MAY IMPAIR ALERTNESS* * PROMETHAZIN 2021-03 Yes [id number] TAKE 1 [facility] E 25 mg 0-03 TABLET BY ity of tablet 00:00: MOUTH [place] 00 EVERY 6 Medical HOURS Branch NEEDED FOR NAUSEA AND VOMITING *MAY IMPAIR ALERTNESS* * PROMETHAZIN 2021-03 Yes [id number] TAKE 1 [facility] E 25 mg 0-03 TABLET BY ity of tablet 00:00: MOUTH [place] 00 EVERY 6 Medical HOURS Branch NEEDED FOR NAUSEA AND VOMITING *MAY IMPAIR ALERTNESS* * PROMETHAZIN 2021-03 Yes [id number] TAKE 1 [facility] E 25 mg 0-03 TABLET BY ity of tablet 00:00: MOUTH [place] 00 EVERY 6 Medical HOURS Branch NEEDED FOR NAUSEA AND VOMITING *MAY IMPAIR ALERTNESS* * PROMETHAZIN 2021-03 Yes [id number] TAKE 1 [facility] E 25 mg 0-03 TABLET BY ity of tablet 00:00: MOUTH [place] 00 EVERY 6 Medical HOURS Branch NEEDED FOR NAUSEA AND VOMITING *MAY IMPAIR ALERTNESS* * PROMETHAZIN 2021-03- No [id number] TAKE 1 [facility] E 25 mg 0-03 11-28 TABLET BY ity of tablet 00:00: 00:00 MOUTH [place] 00 :00 EVERY 6 Medical HOURS Branch NEEDED FOR NAUSEA AND VOMITING *MAY IMPAIR ALERTNESS* * HYDROcodone Yes [id number] TAKE 1 [facility] ers -acetaminop 9-28 TABLET BY ity of hen 10-325 00:00: MOUTH [place] mg tablet 00 EVERY 4 Medical HOURS Branch NEEDED FOR PAIN (SCALE 4-6) *MAY MAKE DROWSY* CHRONIC PAIN INDICATION S: CHRONIC PAIN Indication s: chronic pain baclofen Yes [id number] TAKE 1 [facility] mg tablet 9-28 TABLET BY ity o f 00:00: MOUTH 3 [place] 00 TIMES Medical DAILY *MAY Branch IMPAIR ALERTNESS* * HYDROcodone Yes [id number] TAKE 1 [facility] ers -acetaminop 9-28 TABLET BY ity of hen 10-325 00:00: MOUTH [place] mg tablet 00 EVERY 4 Medical HOURS Branch NEEDED FOR PAIN (SCALE 4-6) *MAY MAKE DROWSY* CHRONIC PAIN INDICATION S: CHRONIC PAIN Indication s: chronic pain baclofen Yes [id number] TAKE 1 [facility] mg tablet 9-28 TABLET BY ity o f 00:00: MOUTH 3 [place] 00 TIMES Medical DAILY *MAY Branch IMPAIR ALERTNESS* * HYDROcodone Yes [id number] TAKE 1 [facility] ers -acetaminop 9-28 TABLET BY ity of hen 10-325 00:00: MOUTH [place] mg tablet 00 EVERY 4 Medical HOURS Branch NEEDED FOR PAIN (SCALE 4-6) *MAY MAKE DROWSY* CHRONIC PAIN INDICATION S: CHRONIC PAIN Indication s: chronic pain baclofen Yes [id number] TAKE 1 [facility] mg tablet 9-28 TABLET BY ity o f 00:00: MOUTH 3 [place] 00 TIMES Medical DAILY *MAY Branch IMPAIR ALERTNESS* * IBUPROFEN Yes [id number] TAKE 1 U nivers 800 mg 9-28 TABLET BY ity of tablet 00:00: MOUTH [place] 00 EVERY 6 Medical HOURS WITH Branch FOOD NEEDED FOR PAIN *DO NOT TAKE ASPIRIN* HYDROcodone Yes [id number] TAKE 1 Univ ers -acetaminop 9-28 TABLET BY ity of hen 10-325 00:00: MOUTH [place] mg tablet 00 EVERY 4 Medical HOURS Branch NEEDED FOR PAIN (SCALE 4-6) *MAY MAKE DROWSY* CHRONIC PAIN INDICATION S: CHRONIC PAIN Indication s: chronic pain baclofen Yes [id number] TAKE 1 [facility] mg tablet 9-28 TABLET BY ity o f 00:00: MOUTH 3 [place] 00 TIMES Medical DAILY *MAY Branch IMPAIR ALERTNESS* * IBUPROFEN Yes [id number] TAKE 1 U nivers 800 mg 9-28 TABLET BY ity of tablet 00:00: MOUTH [place] 00 EVERY 6 Medical HOURS WITH Branch FOOD NEEDED FOR PAIN *DO NOT TAKE ASPIRIN* HYDROcodone Yes [id number] TAKE 1 Univ ers -acetaminop 9-28 TABLET BY ity of hen 10-325 00:00: MOUTH [place] mg tablet 00 EVERY 4 Medical HOURS Branch NEEDED FOR PAIN (SCALE 4-6) *MAY MAKE DROWSY* CHRONIC PAIN INDICATION S: CHRONIC PAIN Indication s: chronic pain baclofen Yes [id number] TAKE 1 [facility] mg tablet 9-28 TABLET BY ity o f 00:00: MOUTH 3 [place] 00 TIMES Medical DAILY *MAY Branch IMPAIR ALERTNESS* * IBUPROFEN Yes [id number] TAKE 1 U nivers 800 mg 9-28 TABLET BY ity of tablet 00:00: MOUTH [place] 00 EVERY 6 Medical HOURS WITH Branch FOOD NEEDED FOR PAIN *DO NOT TAKE ASPIRIN* HYDROcodone Yes [id number] TAKE 1 [facility] ers -acetaminop 9-28 TABLET BY ity of hen 10-325 00:00: MOUTH [place] mg tablet 00 EVERY 4 Medical HOURS Branch NEEDED FOR PAIN (SCALE 4-6) *MAY MAKE DROWSY* CHRONIC PAIN INDICATION S: CHRONIC PAIN Indication s: chronic pain baclofen 20 Yes [id number] TAKE 1 [facility] mg tablet 9-28 TABLET BY ity o f 00:00: MOUTH 3 [place] 00 TIMES Medical DAILY *MAY Branch IMPAIR ALERTNESS* * IBUPROFEN Yes [id number] TAKE 1 U nivers 800 mg 9-28 TABLET BY ity of tablet 00:00: MOUTH [place] 00 EVERY 6 Medical HOURS WITH Branch FOOD NEEDED FOR PAIN *DO NOT TAKE ASPIRIN* baclofen Yes [id number] TAKE 1 [facility] mg tablet 9-28 TABLET BY ity o f 00:00: MOUTH 3 [place] 00 TIMES Medical DAILY *MAY Branch IMPAIR ALERTNESS* * IBUPROFEN Yes [id number] TAKE 1 U nivers 800 mg 9-28 TABLET BY ity of tablet 00:00: MOUTH [place] 00 EVERY 6 Medical HOURS WITH Branch FOOD NEEDED FOR PAIN *DO NOT TAKE ASPIRIN* baclofen Yes [id number] TAKE 1 [facility] mg tablet 9-28 TABLET BY ity o f 00:00: MOUTH 3 [place] 00 TIMES Medical DAILY *MAY Branch IMPAIR ALERTNESS* * IBUPROFEN Yes [id number] TAKE 1 U nivers 800 mg 9-28 TABLET BY ity of tablet 00:00: MOUTH [place] 00 EVERY 6 Medical HOURS WITH Branch FOOD NEEDED FOR PAIN *DO NOT TAKE ASPIRIN* baclofen Yes [id number] TAKE 1 [facility] mg tablet 9-28 TABLET BY ity o f 00:00: MOUTH 3 [place] 00 TIMES Medical DAILY *MAY Branch IMPAIR ALERTNESS* * IBUPROFEN Yes [id number] TAKE 1 U nivers 800 mg 9-28 TABLET BY ity of tablet 00:00: MOUTH [place] 00 EVERY 6 Medical HOURS WITH Branch FOOD NEEDED FOR PAIN *DO NOT TAKE ASPIRIN* baclofen 20 Yes [id number] TAKE 1 [facility] mg tablet 9-28 TABLET BY ity o f 00:00: MOUTH 3 [place] 00 TIMES Medical DAILY *MAY Branch IMPAIR ALERTNESS* * IBUPROFEN Yes [id number] TAKE 1 U nivers 800 mg 9-28 TABLET BY ity of tablet 00:00: MOUTH [place] 00 EVERY 6 Medical HOURS WITH Branch FOOD NEEDED FOR PAIN *DO NOT TAKE ASPIRIN* baclofen 20 Yes [id number] TAKE 1 [facility] mg tablet 9-28 TABLET BY ity o f 00:00: MOUTH 3 [place] 00 TIMES Medical DAILY *MAY Branch IMPAIR ALERTNESS* * baclofen 20 Yes [id number] TAKE 1 [facility] mg tablet 9-28 TABLET BY ity o f 00:00: MOUTH 3 [place] 00 TIMES Medical DAILY *MAY Branch IMPAIR ALERTNESS* * baclofen 20 Yes [id number] TAKE 1 [facility] mg tablet 9-28 TABLET BY ity o f 00:00: MOUTH 3 [place] 00 TIMES Medical DAILY *MAY Branch IMPAIR ALERTNESS* * baclofen 20 Yes [id number] TAKE 1 [facility] mg tablet 9-28 TABLET BY ity o f 00:00: MOUTH 3 [place] 00 TIMES Medical DAILY *MAY Branch IMPAIR ALERTNESS* * baclofen 20 Yes [id number] TAKE 1 [facility] mg tablet 9-28 TABLET BY ity o f 00:00: MOUTH 3 [place] 00 TIMES Medical DAILY *MAY Branch IMPAIR ALERTNESS* * baclofen 20 Yes [id number] TAKE 1 [facility] mg tablet 9-28 TABLET BY ity o f 00:00: MOUTH 3 [place] 00 TIMES Medical DAILY *MAY Branch IMPAIR ALERTNESS* * baclofen 20 2021- No [id number] TAKE 1 [facility] mg tablet 9-28 11-17 TABLET BY ity of 00:00: 00:00 MOUTH 3 [place] 00 :00 TIMES Medical DAILY *MAY Branch IMPAIR ALERTNESS* * IBUPROFEN 2021- No [id number] TAKE 1 [facility] 800 mg 9-28 10-27 TABLET BY ity of tablet 00:00: 00:00 MOUTH [place] 00 :00 EVERY 6 Medical HOURS WITH Branch FOOD NEEDED FOR PAIN *DO NOT TAKE ASPIRIN* HYDROcodone 2021- No [id number] TAKE 1 [facility] vers -acetaminop 9-28 10-24 TABLET BY it y of hen 10-325 00:00: 00:00 MOUTH [place] mg tablet 00 :00 EVERY 4 Medical HOURS Branch NEEDED FOR PAIN (SCALE 4-6) *MAY MAKE DROWSY* CHRONIC PAIN INDICATION S: CHRONIC PAIN Indication s: chronic pain SULFAMETHOX 2022-0 Yes [id number] TAKE 1 [facility] AZOLE-TRIME 9-26 TABLET BY ity of THOPRIM 00:00: MOUTH 2 [place] 800-160 mg 00 TIMES Medical per tablet DAILY WITH Bra nch A GLASS OF WATER UNTIL ALL TAKEN SULFAMETHOX 2022-0 Yes [id number] TAKE 1 [facility] AZOLE-TRIME 9-26 TABLET BY ity of THOPRIM 00:00: MOUTH 2 [place] 800-160 mg 00 TIMES Medical per tablet DAILY WITH Bra nch A GLASS OF WATER UNTIL ALL TAKEN SULFAMETHOX 2022-0 Yes [id number] TAKE 1 [facility] AZOLE-TRIME 9-26 TABLET BY ity of THOPRIM 00:00: MOUTH 2 [place] 800-160 mg 00 TIMES Medical per tablet DAILY WITH Bra nch A GLASS OF WATER UNTIL ALL TAKEN SULFAMETHOX 2022-0 Yes [id number] TAKE 1 [facility] AZOLE-TRIME 9-26 TABLET BY ity of THOPRIM 00:00: MOUTH 2 [place] 800-160 mg 00 TIMES Medical per tablet DAILY WITH Bra nch A GLASS OF WATER UNTIL ALL TAKEN SULFAMETHOX 2022-0 Yes [id number] TAKE 1 Univers AZOLE-TRIME 9-26 TABLET BY ity of THOPRIM 00:00: MOUTH 2 [place] 800-160 mg 00 TIMES Medical per tablet DAILY WITH Bra nch A GLASS OF WATER UNTIL ALL TAKEN SULFAMETHOX 2022-0 Yes [id number] TAKE 1 [facility] AZOLE-TRIME 9-26 TABLET BY ity of THOPRIM 00:00: MOUTH 2 [place] 800-160 mg 00 TIMES Medical per tablet DAILY WITH Bra nch A GLASS OF WATER UNTIL ALL TAKEN SULFAMETHOX 2022-0 Yes [id number] TAKE 1 [facility] AZOLE-TRIME 9-26 TABLET BY ity of THOPRIM 00:00: MOUTH 2 [place] 800-160 mg 00 TIMES Medical per tablet DAILY WITH Bra nch A GLASS OF WATER UNTIL ALL TAKEN SULFAMETHOX 2022-0 Yes [id number] TAKE 1 [facility] AZOLE-TRIME 9-26 TABLET BY ity of THOPRIM 00:00: MOUTH 2 [place] 800-160 mg 00 TIMES Medical per tablet DAILY WITH Bra nch A GLASS OF WATER UNTIL ALL TAKEN SULFAMETHOX 2022-0 Yes [id number] TAKE 1 [facility] AZOLE-TRIME 9-26 TABLET BY ity of THOPRIM 00:00: MOUTH 2 [place] 800-160 mg 00 TIMES Medical per tablet DAILY WITH Bra nch A GLASS OF WATER UNTIL ALL TAKEN SULFAMETHOX 2021-0 Yes [id number] TAKE 1 [facility] AZOLE-TRIME 9-26 TABLET BY ity of THOPRIM 00:00: MOUTH 2 [place] 800-160 mg 00 TIMES Medical per tablet DAILY WITH Bra nch A GLASS OF WATER UNTIL ALL TAKEN SULFAMETHOX 2021-0 Yes [id number] TAKE 1 [facility] AZOLE-TRIME 9-26 TABLET BY ity of THOPRIM 00:00: MOUTH 2 [place] 800-160 mg 00 TIMES Medical per tablet DAILY WITH Bra nch A GLASS OF WATER UNTIL ALL TAKEN SULFAMETHOX 2021-0 Yes [id number] TAKE 1 [facility] AZOLE-TRIME 9-26 TABLET BY ity of THOPRIM 00:00: MOUTH 2 [place] 800-160 mg 00 TIMES Medical per tablet DAILY WITH Bra nch A GLASS OF WATER UNTIL ALL TAKEN SULFAMETHOX 2021-0 2- No [id number] TAKE 1 [facility] AZOLE-TRIME 9-26 10-31 TABLET BY it y of THOPRIM 00:00: 00:00 MOUTH 2 [place] 800-160 mg 00 :00 TIMES Medical per tablet DAILY WITH Bra nch A GLASS OF WATER UNTIL ALL TAKEN SULFAMETHOX 2021-0 2021- No [id number] TAKE 1 [facility] AZOLE-TRIME 9-26 10-31 TABLET BY it y of THOPRIM 00:00: 00:00 MOUTH 2 [place] 800-160 mg 00 :00 TIMES Medical per tablet DAILY WITH Bra nch A GLASS OF WATER UNTIL ALL TAKEN DIPHENOXYLA 2021-0 Yes [id number] TAKE 2 [facility] TE-ATROPINE 9-20 TABLETS BY it y of 2.5-0.025 00:00: MOUTH 4 [place] mg tablet 00 TIMES Medical DAILY Branch NEEDED FOR LOOSE STOOLS *MAY IMPAIR ALERTNESS* * DIPHENOXYLA 2-0 Yes [id number] TAKE 2 [facility] TE-ATROPINE 9-20 TABLETS BY it y of 2.5-0.025 00:00: MOUTH 4 [place] mg tablet 00 TIMES Medical DAILY Branch NEEDED FOR LOOSE STOOLS *MAY IMPAIR ALERTNESS* * DIPHENOXYLA 2-0 Yes [id number] TAKE 2 [facility] TE-ATROPINE 9-20 TABLETS BY it y of 2.5-0.025 00:00: MOUTH 4 [place] mg tablet 00 TIMES Medical DAILY Branch NEEDED FOR LOOSE STOOLS *MAY IMPAIR ALERTNESS* * DIPHENOXYLA 2021-0 Yes [id number] TAKE 2 [facility] TE-ATROPINE 9-20 TABLETS BY it y of 2.5-0.025 00:00: MOUTH 4 [place] mg tablet 00 TIMES Medical DAILY Branch NEEDED FOR LOOSE STOOLS *MAY IMPAIR ALERTNESS* * DIPHENOXYLA 2021-0 Yes [id number] TAKE 2 [facility] TE-ATROPINE 9-20 TABLETS BY it y of 2.5-0.025 00:00: MOUTH 4 [place] mg tablet 00 TIMES Medical DAILY Branch NEEDED FOR LOOSE STOOLS *MAY IMPAIR ALERTNESS* * DIPHENOXYLA 2021-0 Yes [id number] TAKE 2 [facility] TE-ATROPINE 9-20 TABLETS BY it y of 2.5-0.025 00:00: MOUTH 4 [place] mg tablet 00 TIMES Medical DAILY Branch NEEDED FOR LOOSE STOOLS *MAY IMPAIR ALERTNESS* * DIPHENOXYLA 2021-0 Yes [id number] TAKE 2 [facility] TE-ATROPINE 9-20 TABLETS BY it y of 2.5-0.025 00:00: MOUTH 4 [place] mg tablet 00 TIMES Medical DAILY Branch NEEDED FOR LOOSE STOOLS *MAY IMPAIR ALERTNESS* * DIPHENOXYLA 2021-0 Yes [id number] TAKE 2 [facility] TE-ATROPINE 9-20 TABLETS BY it y of 2.5-0.025 00:00: MOUTH 4 [place] mg tablet 00 TIMES Medical DAILY Branch NEEDED FOR LOOSE STOOLS *MAY IMPAIR ALERTNESS* * DIPHENOXYLA 2021-0 Yes [id number] TAKE 2 [facility] TE-ATROPINE 9-20 TABLETS BY it y of 2.5-0.025 00:00: MOUTH 4 [place] mg tablet 00 TIMES Medical DAILY Branch NEEDED FOR LOOSE STOOLS *MAY IMPAIR ALERTNESS* * DIPHENOXYLA 2021-0 Yes [id number] TAKE 2 [facility] TE-ATROPINE 9-20 TABLETS BY it y of 2.5-0.025 00:00: MOUTH 4 [place] mg tablet 00 TIMES Medical DAILY Branch NEEDED FOR LOOSE STOOLS *MAY IMPAIR ALERTNESS* * DIPHENOXYLA 2021-0 Yes [id number] TAKE 2 [facility] TE-ATROPINE 9-20 TABLETS BY it y of 2.5-0.025 00:00: MOUTH 4 [place] mg tablet 00 TIMES Medical DAILY Branch NEEDED FOR LOOSE STOOLS *MAY IMPAIR ALERTNESS* * DIPHENOXYLA 2021-0 Yes [id number] TAKE 2 [facility] TE-ATROPINE 9-20 TABLETS BY it y of 2.5-0.025 00:00: MOUTH 4 [place] mg tablet 00 TIMES Medical DAILY Branch NEEDED FOR LOOSE STOOLS *MAY IMPAIR ALERTNESS* * DIPHENOXYLA 2021-0 Yes [id number] TAKE 2 [facility] TE-ATROPINE 9-20 TABLETS BY it y of 2.5-0.025 00:00: MOUTH 4 [place] mg tablet 00 TIMES Medical DAILY Branch NEEDED FOR LOOSE STOOLS *MAY IMPAIR ALERTNESS* * DIPHENOXYLA 2021- Yes [id number] TAKE 2 [facility] TE-ATROPINE 9-20 TABLETS BY it y of 2.5-0.025 00:00: MOUTH 4 [place] mg tablet 00 TIMES Medical DAILY Branch NEEDED FOR LOOSE STOOLS *MAY IMPAIR ALERTNESS* * DIPHENOXYLA 2021- Yes [id number] TAKE 2 [facility] TE-ATROPINE 9-20 TABLETS BY it y of 2.5-0.025 00:00: MOUTH 4 [place] mg tablet 00 TIMES Medical DAILY Branch NEEDED FOR LOOSE STOOLS *MAY IMPAIR ALERTNESS* * DIPHENOXYLA 2021-0 Yes [id number] TAKE 2 [facility] TE-ATROPINE 9-20 TABLETS BY it y of 2.5-0.025 00:00: MOUTH 4 [place] mg tablet 00 TIMES Medical DAILY Branch NEEDED FOR LOOSE STOOLS *MAY IMPAIR ALERTNESS* * DIPHENOXYLA 2021-0 Yes [id number] TAKE 2 [facility] TE-ATROPINE 9-20 TABLETS BY it y of 2.5-0.025 00:00: MOUTH 4 [place] mg tablet 00 TIMES Medical DAILY Branch NEEDED FOR LOOSE STOOLS *MAY IMPAIR ALERTNESS* * DIPHENOXYLA 2021-0 Yes [id number] TAKE 2 [facility] TE-ATROPINE 9-20 TABLETS BY it y of 2.5-0.025 00:00: MOUTH 4 [place] mg tablet 00 TIMES Medical DAILY Branch NEEDED FOR LOOSE STOOLS *MAY IMPAIR ALERTNESS* * DIPHENOXYLA 2021-0 Yes [id number] TAKE 2 [facility] TE-ATROPINE 9-20 TABLETS BY it y of 2.5-0.025 00:00: MOUTH 4 [place] mg tablet 00 TIMES Medical DAILY Branch NEEDED FOR LOOSE STOOLS *MAY IMPAIR ALERTNESS* * DIPHENOXYLA 2021-0 Yes [id number] TAKE 2 [facility] TE-ATROPINE 9-20 TABLETS BY it y of 2.5-0.025 00:00: MOUTH 4 [place] mg tablet 00 TIMES Medical DAILY Branch NEEDED FOR LOOSE STOOLS *MAY IMPAIR ALERTNESS* * DIPHENOXYLA 2021-0 Yes [id number] TAKE 2 [facility] TE-ATROPINE 9-20 TABLETS BY it y of 2.5-0.025 00:00: MOUTH 4 [place] mg tablet 00 TIMES Medical DAILY Branch NEEDED FOR LOOSE STOOLS *MAY IMPAIR ALERTNESS* * DIPHENOXYLA 2021-0 Yes [id number] TAKE 2 [facility] TE-ATROPINE 9-20 TABLETS BY it y of 2.5-0.025 00:00: MOUTH 4 [place] mg tablet 00 TIMES Medical DAILY Branch NEEDED FOR LOOSE STOOLS *MAY IMPAIR ALERTNESS* * DIPHENOXYLA 2021-0 Yes [id number] TAKE 2 [facility] TE-ATROPINE 9-20 TABLETS BY it y of 2.5-0.025 00:00: MOUTH 4 [place] mg tablet 00 TIMES Medical DAILY Branch NEEDED FOR LOOSE STOOLS *MAY IMPAIR ALERTNESS* * DIPHENOXYLA 2021-0 Yes [id number] TAKE 2 [facility] TE-ATROPINE 9-20 TABLETS BY it y of 2.5-0.025 00:00: MOUTH 4 [place] mg tablet 00 TIMES Medical DAILY Branch NEEDED FOR LOOSE STOOLS *MAY IMPAIR ALERTNESS* * DIPHENOXYLA 2021-0 Yes [id number] TAKE 2 [facility] TE-ATROPINE 9-20 TABLETS BY it y of 2.5-0.025 00:00: MOUTH 4 [place] mg tablet 00 TIMES Medical DAILY Branch NEEDED FOR LOOSE STOOLS *MAY IMPAIR ALERTNESS* * DIPHENOXYLA 2021-0 Yes [id number] TAKE 2 [facility] TE-ATROPINE 9-20 TABLETS BY it y of 2.5-0.025 00:00: MOUTH 4 [place] mg tablet 00 TIMES Medical DAILY Branch NEEDED FOR LOOSE STOOLS *MAY IMPAIR ALERTNESS* * DIPHENOXYLA 2021-0 Yes [id number] TAKE 2 [facility] TE-ATROPINE 9-20 TABLETS BY it y of 2.5-0.025 00:00: MOUTH 4 [place] mg tablet 00 TIMES Medical DAILY Branch NEEDED FOR LOOSE STOOLS *MAY IMPAIR ALERTNESS* * DIPHENOXYLA 2021-0 Yes [id number] TAKE 2 [facility] TE-ATROPINE 9-20 TABLETS BY it y of 2.5-0.025 00:00: MOUTH 4 [place] mg tablet 00 TIMES Medical DAILY Branch NEEDED FOR LOOSE STOOLS *MAY IMPAIR ALERTNESS* * DIPHENOXYLA 2021-0 Yes [id number] TAKE 2 [facility] TE-ATROPINE 9-20 TABLETS BY it y of 2.5-0.025 00:00: MOUTH 4 [place] mg tablet 00 TIMES Medical DAILY Branch NEEDED FOR LOOSE STOOLS *MAY IMPAIR ALERTNESS* * DIPHENOXYLA 2021-0 Yes [id number] TAKE 2 [facility] TE-ATROPINE 9-20 TABLETS BY it y of 2.5-0.025 00:00: MOUTH 4 [place] mg tablet 00 TIMES Medical DAILY Branch NEEDED FOR LOOSE STOOLS *MAY IMPAIR ALERTNESS* * DIPHENOXYLA 2021-0 Yes [id number] TAKE 2 [facility] TE-ATROPINE 9-20 TABLETS BY it y of 2.5-0.025 00:00: MOUTH 4 [place] mg tablet 00 TIMES Medical DAILY Branch NEEDED FOR LOOSE STOOLS *MAY IMPAIR ALERTNESS* * DIPHENOXYLA 2021-0 Yes [id number] TAKE 2 [facility] TE-ATROPINE 9-20 TABLETS BY it y of 2.5-0.025 00:00: MOUTH 4 [place] mg tablet 00 TIMES Medical DAILY Branch NEEDED FOR LOOSE STOOLS *MAY IMPAIR ALERTNESS* * DIPHENOXYLA 2021-0 Yes [id number] TAKE 2 [facility] TE-ATROPINE 9-20 TABLETS BY it y of 2.5-0.025 00:00: MOUTH 4 [place] mg tablet 00 TIMES Medical DAILY Branch NEEDED FOR LOOSE STOOLS *MAY IMPAIR ALERTNESS* * DIPHENOXYLA 2021-0 Yes [id number] TAKE 2 [facility] TE-ATROPINE 9-20 TABLETS BY it y of 2.5-0.025 00:00: MOUTH 4 [place] mg tablet 00 TIMES Medical DAILY Branch NEEDED FOR LOOSE STOOLS *MAY IMPAIR ALERTNESS* * DIPHENOXYLA 2021-0 Yes [id number] TAKE 2 [facility] TE-ATROPINE 9-20 TABLETS BY it y of 2.5-0.025 00:00: MOUTH 4 [place] mg tablet 00 TIMES Medical DAILY Branch NEEDED FOR LOOSE STOOLS *MAY IMPAIR ALERTNESS* * DIPHENOXYLA 2021-0 Yes [id number] TAKE 2 [facility] TE-ATROPINE 9-20 TABLETS BY it y of 2.5-0.025 00:00: MOUTH 4 [place] mg tablet 00 TIMES Medical DAILY Branch NEEDED FOR LOOSE STOOLS *MAY IMPAIR ALERTNESS* * DIPHENOXYLA 2021-0 Yes [id number] TAKE 2 [facility] TE-ATROPINE 9-20 TABLETS BY it y of 2.5-0.025 00:00: MOUTH 4 [place] mg tablet 00 TIMES Medical DAILY Branch NEEDED FOR LOOSE STOOLS *MAY IMPAIR ALERTNESS* * DIPHENOXYLA 2021-0 Yes [id number] TAKE 2 [facility] TE-ATROPINE 9-20 TABLETS BY it y of 2.5-0.025 00:00: MOUTH 4 [place] mg tablet 00 TIMES Medical DAILY Branch NEEDED FOR LOOSE STOOLS *MAY IMPAIR ALERTNESS* * DIPHENOXYLA 2021- Yes [id number] TAKE 2 [facility] TE-ATROPINE 9-20 TABLETS BY it y of 2.5-0.025 00:00: MOUTH 4 [place] [facility] tablet 00 TIMES Medical DAILY Branch NEEDED FOR LOOSE STOOLS *MAY IMPAIR ALERTNESS* * DIPHENOXYLA 2021- Yes [id number] TAKE 2 [facility] TE-ATROPINE 9-20 TABLETS BY it y of 2.5-0.025 00:00: MOUTH 4 [place] [facility] tablet 00 TIMES Medical DAILY [facility] NEEDED FOR LOOSE STOOLS *MAY IMPAIR ALERTNESS* * DIPHENOXYLA 2021-0 Yes [id number] TAKE 2 [facility] TE-ATROPINE 9-20 TABLETS BY it y of 2.5-0.025 00:00: MOUTH 4 [place] [facility] tablet 00 TIMES Medical DAILY Branch NEEDED FOR LOOSE STOOLS *MAY IMPAIR ALERTNESS* * DIPHENOXYLA 2021-0 Yes [id number] TAKE 2 [facility] TE-ATROPINE 9-20 TABLETS BY it y of 2.5-0.025 00:00: MOUTH 4 [place] [facility] tablet 00 TIMES Medical DAILY Branch NEEDED FOR LOOSE STOOLS *MAY IMPAIR ALERTNESS* * DIPHENOXYLA 2021-0 Yes [id number] TAKE 2 [facility] TE-ATROPINE 9-20 TABLETS BY it y of 2.5-0.025 00:00: MOUTH 4 [place] [facility] tablet 00 TIMES Medical DAILY Branch NEEDED FOR LOOSE STOOLS *MAY IMPAIR ALERTNESS* * DIPHENOXYLA 2021-0 Yes [id number] TAKE 2 [facility] TE-ATROPINE 9-20 TABLETS BY it y of 2.5-0.025 00:00: MOUTH 4 [place] [facility] tablet 00 TIMES Medical DAILY Branch NEEDED FOR LOOSE STOOLS *MAY IMPAIR ALERTNESS* * DIPHENOXYLA 2021-0 Yes [id number] TAKE 2 [facility] TE-ATROPINE 9-20 TABLETS BY it y of 2.5-0.025 00:00: MOUTH 4 [place] [facility] tablet 00 TIMES Medical DAILY Branch NEEDED FOR LOOSE STOOLS *MAY IMPAIR ALERTNESS* * DIPHENOXYLA Yes [id number] TAKE 2 [facility] TE-ATROPINE 9-20 TABLETS BY it y of 2.5-0.025 00:00: MOUTH 4 [place] [facility] tablet 00 TIMES Medical DAILY Branch NEEDED FOR LOOSE STOOLS *MAY IMPAIR ALERTNESS* * DIPHENOXYLA Yes [id number] TAKE 2 [facility] TE-ATROPINE 9-20 TABLETS BY it y of 2.5-0.025 00:00: MOUTH 4 [place] [facility] tablet 00 TIMES Medical DAILY Branch NEEDED FOR LOOSE STOOLS *MAY IMPAIR ALERTNESS* * DIPHENOXYLA Yes [id number] TAKE 2 [facility] TE-ATROPINE 9-20 TABLETS BY it y of 2.5-0.025 00:00: MOUTH 4 [place] [facility] tablet 00 TIMES Medical DAILY Branch NEEDED FOR LOOSE STOOLS *MAY IMPAIR ALERTNESS* * DIPHENOXYLA 2022- No [id number] TAKE 2 [facility] TE-ATROPINE 9-20 01-06 TABLETS BY i ty of 2.5-0.025 00:00: 00:[place]TH [place] tablet 00 :00 TIMES Medical DAILY Branch NEEDED FOR LOOSE STOOLS *MAY IMPAIR ALERTNESS* * POTASSIUM Yes [id number] TAKE 1 [facility] CHLORIDE 10 9-19 TABLET BY ity of mEq CR 00:00: MOUTH [place] tablet 00 DAILY WITH Medical A GLASS OF Branch WATER TOUO Yes [id number] INJECT 72 [facility] SOLOSTAR 9-19 UNITS ity of U-300 00:00: UNDER THE [place] INSULIN 300 00 SKIN ONCE Med ical unit/mL DAILY IN Branch (1.5 mL) THE InPn EVENING (ADJUSTING DOSE BY 2 UNITS DAILY UNTIL FASTING BLOOD SUGAR LESS THAN 200) POTASSIUM Yes [id number] TAKE 1 [facility] CHLORIDE 10 9-19 TABLET BY ity of mEq CR 00:00: MOUTH [place] tablet 00 DAILY WITH Medical A GLASS OF Branch WATER TOUJEO Yes [id number] INJECT 72 [facility] SOLOSTAR 9-19 UNITS ity of U-300 00:00: UNDER THE [place] INSULIN 300 00 SKIN ONCE Med ical unit/mL DAILY IN Branch (1.5 mL) THE InPn EVENING (ADJUSTING DOSE BY 2 UNITS DAILY UNTIL FASTING BLOOD SUGAR LESS THAN 200) POTASSIUM 2021-0 Yes [id number] TAKE 1 [facility] CHLORIDE 10 9-19 TABLET BY ity of mEq CR 00:00: MOUTH [place] tablet 00 DAILY WITH Medical A GLASS OF Branch WATER TOUJEO 0 Yes [id number] INJECT 72 [facility] SOLOSTAR 9-19 UNITS ity of U-300 00:00: UNDER THE [place] INSULIN 300 00 SKIN ONCE Med ical unit/mL DAILY IN Branch (1.5 mL) THE InPn EVENING (ADJUSTING DOSE BY 2 UNITS DAILY UNTIL FASTING BLOOD SUGAR LESS THAN 200) POTASSIUM 2021-0 Yes [id number] TAKE 1 [facility] CHLORIDE 10 9-19 TABLET BY ity of mEq CR 00:00: MOUTH [place] tablet 00 DAILY WITH Medical A GLASS OF [employer] WATER TOUO 0 Yes [id number] INJECT 72 [facility] SOLOSTAR 9-19 UNITS ity of U-300 00:00: UNDER THE [place] INSULIN 300 00 SKIN ONCE Med ical unit/mL DAILY IN Branch (1.5 mL) THE InPn EVENING (ADJUSTING DOSE BY 2 UNITS DAILY UNTIL FASTING BLOOD SUGAR LESS THAN 200) POTASSIUM 2021-0 Yes [id number] TAKE 1 [facility] CHLORIDE 10 9-19 TABLET BY ity of mEq CR 00:00: MOUTH [place] tablet 00 DAILY WITH Medical A GLASS OF [employer] WATER TOUJEO 0 Yes [id number] INJECT 72 [facility] SOLOSTAR 9-19 UNITS ity of U-300 00:00: UNDER THE [place] INSULIN 300 00 SKIN ONCE Med ical unit/mL DAILY IN Branch (1.5 mL) THE InPn EVENING (ADJUSTING DOSE BY 2 UNITS DAILY UNTIL FASTING BLOOD SUGAR LESS THAN 200) POTASSIUM 2021-0 Yes [id number] TAKE 1 [facility] CHLORIDE 10 9-19 TABLET BY ity of mEq CR 00:00: MOUTH [place] tablet 00 DAILY WITH Medical A GLASS OF Branch WATER TOUJEO 0 Yes [id number] INJECT 72 [facility] SOLOSTAR 9-19 UNITS ity of U-300 00:00: UNDER THE [place] INSULIN 300 00 SKIN ONCE Med ical unit/mL DAILY IN Branch (1.5 mL) THE InPn EVENING (ADJUSTING DOSE BY 2 UNITS DAILY UNTIL FASTING BLOOD SUGAR LESS THAN 200) POTASSIUM 2021-0 Yes [id number] TAKE 1 [facility] CHLORIDE 10 9-19 TABLET BY ity of mEq CR 00:00: MOUTH [place] tablet 00 DAILY WITH Medical A GLASS OF Branch WATER TOUJEO Yes [id number] INJECT 72 [facility] SOLOSTAR 9-19 UNITS ity of U-300 00:00: UNDER THE [place] INSULIN 300 00 SKIN ONCE Med ical unit/mL DAILY IN Branch (1.5 mL) THE InPn EVENING (ADJUSTING DOSE BY 2 UNITS DAILY UNTIL FASTING BLOOD SUGAR LESS THAN 200) POTASSIUM 2021-0 Yes [id number] TAKE 1 [facility] CHLORIDE 10 9-19 TABLET BY ity of mEq CR 00:00: MOUTH [place] tablet 00 DAILY WITH Medical A GLASS OF [employer] WATER TOUJEO Yes [id number] INJECT 72 [facility] SOLOSTAR 9-19 UNITS ity of U-300 00:00: UNDER THE [place] INSULIN 300 00 SKIN ONCE Med ical unit/mL DAILY IN Branch (1.5 mL) THE InPn EVENING (ADJUSTING DOSE BY 2 UNITS DAILY UNTIL FASTING BLOOD SUGAR LESS THAN 200) POTASSIUM 2021-0 Yes [id number] TAKE 1 [facility] CHLORIDE 10 9-19 TABLET BY ity of mEq CR 00:00: MOUTH [place] tablet 00 DAILY WITH Medical A GLASS OF [employer] WATER TOUJEO Yes [id number] INJECT 72 [facility] SOLOSTAR 9-19 UNITS ity of U-300 00:00: UNDER THE [place] INSULIN 300 00 SKIN ONCE Med ical unit/mL DAILY IN Branch (1.5 mL) THE InPn EVENING (ADJUSTING DOSE BY 2 UNITS DAILY UNTIL FASTING BLOOD SUGAR LESS THAN 200) POTASSIUM 2021-0 Yes [id number] TAKE 1 [facility] CHLORIDE 10 9-19 TABLET BY ity of mEq CR 00:00: MOUTH [place] tablet 00 DAILY WITH Medical A GLASS OF Branch WATER TOUJEO Yes [id number] INJECT 72 [facility] SOLOSTAR 9-19 UNITS ity of U-300 00:00: UNDER THE [place] INSULIN 300 00 SKIN ONCE Med ical unit/mL DAILY IN Branch (1.5 mL) THE InPn EVENING (ADJUSTING DOSE BY 2 UNITS DAILY UNTIL FASTING BLOOD SUGAR LESS THAN 200) POTASSIUM 2021-0 Yes [id number] TAKE 1 [facility] CHLORIDE 10 9-19 TABLET BY ity of mEq CR 00:00: MOUTH [place] tablet 00 DAILY WITH Medical A GLASS OF Branch WATER TOUJEO Yes [id number] INJECT 72 [facility] SOLOSTAR 9-19 UNITS ity of U-300 00:00: UNDER THE [place] INSULIN 300 00 SKIN ONCE Med ical unit/mL DAILY IN Branch (1.5 mL) THE InPn EVENING (ADJUSTING DOSE BY 2 UNITS DAILY UNTIL FASTING BLOOD SUGAR LESS THAN 200) POTASSIUM Yes [id number] TAKE 1 [facility] CHLORIDE 10 9-19 TABLET BY ity of mEq CR 00:00: MOUTH [place] tablet 00 DAILY WITH Medical A GLASS OF Branch WATER POTASSIUM Yes [id number] TAKE 1 [facility] CHLORIDE 10 9-19 TABLET BY ity of mEq CR 00:00: MOUTH [place] tablet 00 DAILY WITH Medical A GLASS OF Branch WATER POTASSIUM 2021- No [id number] TAKE 1 [facility] CHLORIDE 10 9-19 10-27 TABLET BY it y of mEq CR 00:00: 00:00 MOUTH [place] tablet 00 :00 DAILY WITH Medical A GLASS OF Branch WATER TOUJEO 2021- No [id number] INJECT 72 [facility] SOLOSTAR 9-19 10-26 UNITS ity of U-300 00:00: 00:00 UNDER THE [place] INSULIN 300 00 :00 SKIN ONCE Med ical unit/mL DAILY IN Branch (1.5 mL) THE InPn EVENING (ADJUSTING DOSE BY 2 UNITS DAILY UNTIL FASTING BLOOD SUGAR LESS THAN 200) PROMETHAZIN Yes [id number] TAKE 1 [facility] E 25 mg 9-16 TABLET BY ity of tablet 00:00: MOUTH [place] 00 EVERY 6 Medical HOURS Branch NEEDED FOR NAUSEA AND VOMITING *MAY IMPAIR ALERTNESS* * PROMETHAZIN Yes [id number] TAKE 1 [facility] E 25 mg 9-16 TABLET BY ity of tablet 00:00: MOUTH [place] 00 EVERY 6 Medical HOURS Branch NEEDED FOR NAUSEA AND VOMITING *MAY IMPAIR ALERTNESS* * PROMETHAZIN Yes [id number] TAKE 1 [facility] E 25 mg 9-16 TABLET BY ity of tablet 00:00: MOUTH [place] 00 EVERY 6 Medical HOURS Branch NEEDED FOR NAUSEA AND VOMITING *MAY IMPAIR ALERTNESS* * PROMETHAZIN Yes [id number] TAKE 1 [facility] E 25 mg 9-16 TABLET BY ity of tablet 00:00: MOUTH [place] 00 EVERY 6 Medical HOURS Branch NEEDED FOR NAUSEA AND VOMITING *MAY IMPAIR ALERTNESS* * PROMETHAZIN Yes [id number] TAKE 1 [facility] E 25 mg 9-16 TABLET BY ity of tablet 00:00: MOUTH [place] 00 EVERY 6 Medical HOURS Branch NEEDED FOR NAUSEA AND VOMITING *MAY IMPAIR ALERTNESS* * PROMETHAZIN Yes [id number] TAKE 1 [facility] E 25 mg 9-16 TABLET BY ity of tablet 00:00: MOUTH [place] 00 EVERY 6 Medical HOURS Branch NEEDED FOR NAUSEA AND VOMITING *MAY IMPAIR ALERTNESS* * PROMETHAZIN Yes [id number] TAKE 1 [facility] E 25 mg 9-16 TABLET BY ity of tablet 00:00: MOUTH [place] 00 EVERY 6 Medical HOURS Branch NEEDED FOR NAUSEA AND VOMITING *MAY IMPAIR ALERTNESS* * PROMETHAZIN Yes [id number] TAKE 1 [facility] E 25 mg 9-16 TABLET BY ity of tablet 00:00: MOUTH [place] 00 EVERY 6 Medical HOURS Branch NEEDED FOR NAUSEA AND VOMITING *MAY IMPAIR ALERTNESS* * PROMETHAZIN 2021- No [id number] TAKE 1 [facility] E 25 mg 9-16 10-03 TABLET BY ity of tablet 00:00: 00:00 MOUTH [place] 00 :00 EVERY 6 Medical HOURS Branch NEEDED FOR NAUSEA AND VOMITING *MAY IMPAIR ALERTNESS* * METOPROLOL Yes [id number] TAKE 1 U nivers SUCCINATE 9-13 TABLET BY ity o f XL 50 mg 24 00:00: MOUTH ONCE [place] hr tablet 00 DAILY WITH [facility] METOPROLOL Yes [id number] TAKE 1 U nivers SUCCINATE 9-13 TABLET BY ity o f XL 50 mg 24 00:00: MOUTH ONCE [place] hr tablet 00 DAILY WITH [facility] METOPROLOL Yes [id number] TAKE 1 U nivers SUCCINATE 9-13 TABLET BY ity o f XL 50 mg 24 00:00: MOUTH ONCE [place] hr tablet 00 DAILY WITH [facility] METOPROLOL Yes [id number] TAKE 1 U nivers SUCCINATE 9-13 TABLET BY ity o f XL 50 mg 24 00:00: MOUTH ONCE [place] hr tablet 00 DAILY WITH [facility] METOPROLOL Yes [id number] TAKE 1 U nivers SUCCINATE 9-13 TABLET BY ity o f XL 50 mg 24 00:00: MOUTH ONCE [place] hr tablet 00 DAILY WITH [facility] METOPROLOL Yes [id number] TAKE 1 U nivers SUCCINATE 9-13 TABLET BY ity o f XL 50 mg 24 00:00: MOUTH ONCE [place] hr tablet 00 DAILY WITH [facility] METOPROLOL Yes [id number] TAKE 1 U nivers SUCCINATE 9-13 TABLET BY ity o f XL 50 mg 24 00:00: MOUTH ONCE [place] hr tablet 00 DAILY WITH [facility] METOPROLOL Yes [id number] TAKE 1 U nivers SUCCINATE 9-13 TABLET BY ity o f XL 50 mg 24 00:00: MOUTH ONCE [place] hr tablet 00 DAILY WITH [facility] METOPROLOL Yes [id number] TAKE 1 U nivers SUCCINATE 9-13 TABLET BY ity o f XL 50 mg 24 00:00: MOUTH ONCE [place] hr tablet 00 DAILY WITH [facility] METOPROLOL Yes [id number] TAKE 1 U nivers SUCCINATE 9-13 TABLET BY ity o f XL 50 mg 24 00:00: MOUTH ONCE [place] hr tablet 00 DAILY WITH [facility] METOPROLOL Yes [id number] TAKE 1 U nivers SUCCINATE 9-13 TABLET BY ity o f XL 50 mg 24 00:00: MOUTH ONCE [place] hr tablet 00 DAILY WITH [facility] METOPROLOL Yes [id number] TAKE 1 U nivers SUCCINATE 9-13 TABLET BY ity o f XL 50 mg 24 00:00: MOUTH ONCE [place] hr tablet 00 DAILY WITH [facility] METOPROLOL Yes [id number] TAKE 1 U nivers SUCCINATE 9-13 TABLET BY ity o f XL 50 mg 24 00:00: MOUTH ONCE [place] hr tablet 00 DAILY WITH [facility] METOPROLOL Yes [id number] TAKE 1 U nivers SUCCINATE 9-13 TABLET BY ity o f XL 50 mg 24 00:00: MOUTH ONCE [place] hr tablet 00 DAILY WITH [facility] METOPROLOL Yes [id number] TAKE 1 U nivers SUCCINATE 9-13 TABLET BY ity o f XL 50 mg 24 00:00: MOUTH ONCE [place] hr tablet 00 DAILY WITH [facility] METOPROLOL Yes [id number] TAKE 1 U nivers SUCCINATE 9-13 TABLET BY ity o f XL 50 mg 24 00:00: MOUTH ONCE [place] hr tablet 00 DAILY WITH [facility] METOPROLOL 0 Yes [id number] TAKE 1 U nivers SUCCINATE 9-13 TABLET BY ity o f XL 50 mg 24 00:00: MOUTH ONCE [place] hr tablet 00 DAILY WITH [facility] METOPROLOL 0 Yes [id number] TAKE 1 U nivers SUCCINATE 9-13 TABLET BY ity o f XL 50 mg 24 00:00: MOUTH ONCE [place] hr tablet 00 DAILY WITH [facility] METOPROLOL Yes [id number] TAKE 1 U nivers SUCCINATE 9-13 TABLET BY ity o f XL 50 mg 24 00:00: MOUTH ONCE [place] hr tablet 00 DAILY WITH [facility] METOPROLOL Yes [id number] TAKE 1 U nivers SUCCINATE 9-13 TABLET BY ity o f XL 50 mg 24 00:00: MOUTH ONCE [place] hr tablet 00 DAILY WITH [facility] METOPROLOL Yes [id number] TAKE 1 U nivers SUCCINATE 9-13 TABLET BY ity o f XL 50 mg 24 00:00: MOUTH ONCE [place] hr tablet 00 DAILY WITH [facility] METOPROLOL Yes [id number] TAKE 1 U nivers SUCCINATE 9-13 TABLET BY ity o f XL 50 mg 24 00:00: MOUTH ONCE [place] hr tablet 00 DAILY WITH [facility] METOPROLOL 0 Yes [id number] TAKE 1 U nivers SUCCINATE 9-13 TABLET BY ity o f XL 50 mg 24 00:00: MOUTH ONCE [place] hr tablet 00 DAILY WITH [facility] METOPROLOL 0 Yes [id number] TAKE 1 U nivers SUCCINATE 9-13 TABLET BY ity o f XL 50 mg 24 00:00: MOUTH ONCE [place] hr tablet 00 DAILY WITH [facility] METOPROLOL 0 Yes [id number] TAKE 1 U nivers SUCCINATE 9-13 TABLET BY ity o f XL 50 mg 24 00:00: MOUTH ONCE [place] hr tablet 00 DAILY WITH [facility] METOPROLOL 0 Yes [id number] TAKE 1 U nivers SUCCINATE 9-13 TABLET BY ity o f XL 50 mg 24 00:00: MOUTH ONCE [place] hr tablet 00 DAILY WITH [facility] METOPROLOL 0 Yes [id number] TAKE 1 U nivers SUCCINATE 9-13 TABLET BY ity o f XL 50 mg 24 00:00: MOUTH ONCE [place] hr tablet 00 DAILY WITH [facility] METOPROLOL 0 Yes [id number] TAKE 1 U nivers SUCCINATE 9-13 TABLET BY ity o f XL 50 mg 24 00:00: MOUTH ONCE [place] hr tablet 00 DAILY WITH [facility] METOPROLOL 0 Yes [id number] TAKE 1 U nivers SUCCINATE 9-13 TABLET BY ity o f XL 50 mg 24 00:00: MOUTH ONCE [place] hr tablet 00 DAILY WITH [facility] METOPROLOL Yes [id number] TAKE 1 U nivers SUCCINATE 9-13 TABLET BY ity o f XL 50 mg 24 00:00: MOUTH ONCE [place] hr tablet 00 DAILY WITH [facility] METOPROLOL 0 Yes [id number] TAKE 1 U nivers SUCCINATE 9-13 TABLET BY ity o f XL 50 mg 24 00:00: MOUTH ONCE [place] hr tablet 00 DAILY WITH [facility] METOPROLOL Yes [id number] TAKE 1 U nivers SUCCINATE 9-13 TABLET BY ity o f XL 50 mg 24 00:00: MOUTH ONCE [place] hr tablet 00 DAILY WITH [facility] METOPROLOL 0 Yes [id number] TAKE 1 U nivers SUCCINATE 9-13 TABLET BY ity o f XL 50 mg 24 00:00: MOUTH ONCE [place] hr tablet 00 DAILY WITH [facility] METOPROLOL 0 Yes [id number] TAKE 1 U nivers SUCCINATE 9-13 TABLET BY ity o f XL 50 mg 24 00:00: MOUTH ONCE [place] hr tablet 00 DAILY WITH [facility] METOPROLOL 0 Yes [id number] TAKE 1 U nivers SUCCINATE 9-13 TABLET BY ity o f XL 50 mg 24 00:00: MOUTH ONCE [place] hr tablet 00 DAILY WITH [facility] METOPROLOL 0 Yes [id number] TAKE 1 U nivers SUCCINATE 9-13 TABLET BY ity o f XL 50 mg 24 00:00: MOUTH ONCE [place] hr tablet 00 DAILY WITH [facility] METOPROLOL 0 Yes [id number] TAKE 1 U nivers SUCCINATE 9-13 TABLET BY ity o f XL 50 mg 24 00:00: MOUTH ONCE [place] hr tablet 00 DAILY WITH [facility] METOPROLOL 0 Yes [id number] TAKE 1 U nivers SUCCINATE 9-13 TABLET BY ity o f XL 50 mg 24 00:00: MOUTH ONCE [place] hr tablet 00 DAILY WITH [facility] METOPROLOL 0 Yes [id number] TAKE 1 U nivers SUCCINATE 9-13 TABLET BY ity o f XL 50 mg 24 00:00: MOUTH ONCE [place] hr tablet 00 DAILY WITH [facility] METOPROLOL 0 Yes [id number] TAKE 1 U nivers SUCCINATE 9-13 TABLET BY ity o f XL 50 mg 24 00:00: MOUTH ONCE [place] hr tablet 00 DAILY WITH [facility] METOPROLOL Yes [id number] TAKE 1 U nivers SUCCINATE 9-13 TABLET BY ity o f XL 50 mg 24 00:00: MOUTH ONCE [place] hr tablet 00 DAILY WITH [facility] METOPROLOL Yes [id number] TAKE 1 U nivers SUCCINATE 9-13 TABLET BY ity o f XL 50 mg 24 00:00: MOUTH ONCE [place] hr tablet 00 DAILY WITH [facility] METOPROLOL Yes [id number] TAKE 1 U nivers SUCCINATE 9-13 TABLET BY ity o f XL 50 mg 24 00:00: MOUTH ONCE [place] hr tablet 00 DAILY WITH [facility] METOPROLOL Yes [id number] TAKE 1 U nivers SUCCINATE 9-13 TABLET BY ity o f XL 50 mg 24 00:00: MOUTH ONCE [place] hr tablet 00 DAILY WITH [facility] METOPROLOL 0 Yes [id number] TAKE 1 U nivers SUCCINATE 9-13 TABLET BY ity o f XL 50 mg 24 00:00: MOUTH ONCE [place] hr tablet 00 DAILY WITH [facility] METOPROLOL 0 Yes [id number] TAKE 1 U nivers SUCCINATE 9-13 TABLET BY ity o f XL 50 mg 24 00:00: MOUTH ONCE [place] hr tablet 00 DAILY WITH [facility] METOPROLOL 0 Yes [id number] TAKE 1 U nivers SUCCINATE 9-13 TABLET BY ity o f XL 50 mg 24 00:00: MOUTH ONCE [place] hr tablet 00 DAILY WITH [facility] METOPROLOL 0 Yes [id number] TAKE 1 U nivers SUCCINATE 9-13 TABLET BY ity o f XL 50 mg 24 00:00: MOUTH ONCE [place] hr tablet 00 DAILY WITH [facility] METOPROLOL 0 Yes [id number] TAKE 1 U nivers SUCCINATE 9-13 TABLET BY ity o f XL 50 mg 24 00:00: MOUTH ONCE [place] hr tablet 00 DAILY WITH [facility] METOPROLOL 0 Yes [id number] TAKE 1 U nivers SUCCINATE 9-13 TABLET BY ity o f XL 50 mg 24 00:00: MOUTH ONCE [place] hr tablet 00 DAILY WITH [facility] METOPROLOL 0 Yes [id number] TAKE 1 U nivers SUCCINATE 9-13 TABLET BY ity o f XL 50 mg 24 00:00: MOUTH ONCE [place] hr tablet 00 DAILY WITH [facility] METOPROLOL Yes [id number] TAKE 1 U nivers SUCCINATE 9-13 TABLET BY ity o f XL 50 mg 24 00:00: MOUTH ONCE [place] hr tablet 00 DAILY WITH [facility] METOPROLOL 0 Yes [id number] TAKE 1 U nivers SUCCINATE 9-13 TABLET BY ity o f XL 50 mg 24 00:00: MOUTH ONCE [place] hr tablet 00 DAILY WITH [facility] METOPROLOL 0 Yes [id number] TAKE 1 U nivers SUCCINATE 9-13 TABLET BY ity o f XL 50 mg 24 00:00: MOUTH ONCE [place] hr tablet 00 DAILY WITH [facility] METOPROLOL 0 Yes [id number] TAKE 1 U nivers SUCCINATE 9-13 TABLET BY ity o f XL 50 mg 24 00:00: MOUTH ONCE [place] hr tablet 00 DAILY WITH [facility] METOPROLOL 0 Yes [id number] TAKE 1 U nivers SUCCINATE 9-13 TABLET BY ity o f XL 50 mg 24 00:00: MOUTH ONCE [place] hr tablet 00 DAILY WITH [facility] METOPROLOL 0 Yes [id number] TAKE 1 U nivers SUCCINATE 9-13 TABLET BY ity o f XL 50 mg 24 00:00: MOUTH ONCE [place] hr tablet 00 DAILY WITH [facility] METOPROLOL 0 Yes [id number] TAKE 1 U nivers SUCCINATE 9-13 TABLET BY ity o f XL 50 mg 24 00:00: MOUTH ONCE [place] hr tablet 00 DAILY WITH [facility] METOPROLOL 0 Yes [id number] TAKE 1 U nivers SUCCINATE 9-13 TABLET BY ity o f XL 50 mg 24 00:00: MOUTH ONCE [place] hr tablet 00 DAILY WITH [facility] METOPROLOL 0 Yes [id number] TAKE 1 U nivers SUCCINATE 9-13 TABLET BY ity o f XL 50 mg 24 00:00: MOUTH ONCE [place] hr tablet 00 DAILY WITH [facility] METOPROLOL 0 Yes [id number] TAKE 1 U nivers SUCCINATE 9-13 TABLET BY ity o f XL 50 mg 24 00:00: MOUTH ONCE [place] hr tablet 00 DAILY WITH [facility] METOPROLOL Yes [id number] TAKE 1 U nivers SUCCINATE 9-13 TABLET BY ity o f XL 50 mg 24 00:00: MOUTH ONCE [place] hr tablet 00 DAILY WITH [facility] METOPROLOL Yes [id number] TAKE 1 U nivers SUCCINATE 9-13 TABLET BY ity o f XL 50 mg 24 00:00: MOUTH ONCE [place] hr tablet 00 DAILY WITH [facility] METOPROLOL Yes [id number] TAKE 1 U nivers SUCCINATE 9-13 TABLET BY ity o f XL 50 mg 24 00:00: MOUTH ONCE [place] hr tablet 00 DAILY WITH [facility] METOPROLOL Yes [id number] TAKE 1 U nivers SUCCINATE 9-13 TABLET BY ity o f XL 50 mg 24 00:00: MOUTH ONCE [place] hr tablet 00 DAILY WITH [facility] METOPROLOL Yes [id number] TAKE 1 U nivers SUCCINATE 9-13 TABLET BY ity o f XL 50 mg 24 00:00: MOUTH ONCE [place] hr tablet 00 DAILY WITH [facility] METOPROLOL 0 Yes [id number] TAKE 1 U nivers SUCCINATE 9-13 TABLET BY ity o f XL 50 mg 24 00:00: MOUTH ONCE [place] hr tablet 00 DAILY WITH [facility] METOPROLOL 0 Yes [id number] TAKE 1 U nivers SUCCINATE 9-13 TABLET BY ity o f XL 50 mg 24 00:00: MOUTH ONCE [place] hr tablet 00 DAILY WITH [facility] METOPROLOL 0 Yes [id number] TAKE 1 U nivers SUCCINATE 9-13 TABLET BY ity o f XL 50 mg 24 00:00: MOUTH ONCE [place] hr tablet 00 DAILY WITH [facility] METOPROLOL Yes [id number] TAKE 1 U nivers SUCCINATE 9-13 TABLET BY ity o f XL 50 mg 24 00:00: MOUTH ONCE [place] hr tablet 00 DAILY WITH [facility] METOPROLOL Yes [id number] TAKE 1 U nivers SUCCINATE 9-13 TABLET BY ity o f XL 50 mg 24 00:00: MOUTH ONCE [place] hr tablet 00 DAILY WITH [facility] METOPROLOL Yes [id number] TAKE 1 U nivers SUCCINATE 9-13 TABLET BY ity o f XL 50 mg 24 00:00: MOUTH ONCE [place] hr tablet 00 DAILY WITH [facility] METOPROLOL Yes [id number] TAKE 1 U nivers SUCCINATE 9-13 TABLET BY ity o f XL 50 mg 24 00:00: MOUTH ONCE [place] hr tablet 00 DAILY WITH [facility] METOPROLOL Yes [id number] TAKE 1 U nivers SUCCINATE 9-13 TABLET BY ity o f XL 50 mg 24 00:00: MOUTH ONCE [place] hr tablet 00 DAILY WITH [facility] METOPROLOL Yes [id number] TAKE 1 U nivers SUCCINATE 9-13 TABLET BY ity o f XL 50 mg 24 00:00: MOUTH ONCE [place] hr tablet 00 DAILY WITH [facility] METOPROLOL Yes [id number] TAKE 1 U nivers SUCCINATE 9-13 TABLET BY ity o f XL 50 mg 24 00:00: MOUTH ONCE [place] hr tablet 00 DAILY WITH [facility] METOPROLOL Yes [id number] TAKE 1 U nivers SUCCINATE 9-13 TABLET BY ity o f XL 50 mg 24 00:00: MOUTH ONCE [place] hr tablet 00 DAILY WITH [facility] METOPROLOL Yes [id number] TAKE 1 U nivers SUCCINATE 9-13 TABLET BY ity o f XL 50 mg 24 00:00: MOUTH ONCE [place] hr tablet 00 DAILY WITH [facility] METOPROLOL 2022- No [id number] TAKE 1 [facility] SUCCINATE 9-13 03-08 TABLET BY ity of XL 50 mg 24 00:00: 00:00 MOUTH ONCE [place] hr tablet 00 :00 DAILY WITH [facility] HYDROCODONE 0 Yes [id number] TAKE 1 Univ ers -ACETAMINOP 8-30 TABLET BY ity of HEN 10-325 00:00: MOUTH [place] mg tablet 00 EVERY 4 Medical HOURS Branch NEEDED FOR PAIN (SCALE 4-6) *MAY MAKE DROWSY* CHRONIC PAIN INDICATION S: CHRONIC PAIN BACLOFEN Yes [id number] TAKE 1 [facility] mg tablet 8-30 TABLET BY ity o f 00:00: MOUTH 3 [place] 00 TIMES Medical DAILY *MAY Branch IMPAIR ALERTNESS* * HYDROCODONE Yes [id number] TAKE 1 [facility] ers -ACETAMINOP 8-30 TABLET BY ity of HEN 10-325 00:00: MOUTH [place] mg tablet 00 EVERY 4 Medical HOURS Branch NEEDED FOR PAIN (SCALE 4-6) *MAY MAKE DROWSY* CHRONIC PAIN INDICATION S: CHRONIC PAIN BACLOFEN Yes [id number] TAKE 1 [facility] mg tablet 8-30 TABLET BY ity o f 00:00: MOUTH 3 [place] 00 TIMES Medical DAILY *MAY Branch IMPAIR ALERTNESS* * HYDROCODONE Yes [id number] TAKE 1 [facility] ers -ACETAMINOP 8-30 TABLET BY ity of HEN 10-325 00:00: MOUTH [place] mg tablet 00 EVERY 4 Medical HOURS Branch NEEDED FOR PAIN (SCALE 4-6) *MAY MAKE DROWSY* CHRONIC PAIN INDICATION S: CHRONIC PAIN BACLOFEN Yes [id number] TAKE 1 [facility] mg tablet 8-30 TABLET BY ity o f 00:00: MOUTH 3 [place] 00 TIMES Medical DAILY *MAY Branch IMPAIR ALERTNESS* * HYDROCODONE Yes [id number] TAKE 1 [facility] ers -ACETAMINOP 8-30 TABLET BY ity of HEN 10-325 00:00: MOUTH [place] mg tablet 00 EVERY 4 Medical HOURS Branch NEEDED FOR PAIN (SCALE 4-6) *MAY MAKE DROWSY* CHRONIC PAIN INDICATION S: CHRONIC PAIN BACLOFEN Yes [id number] TAKE 1 [facility] mg tablet 8-30 TABLET BY ity o f 00:00: MOUTH 3 [place] 00 TIMES Medical DAILY *MAY Branch IMPAIR ALERTNESS* * HYDROCODONE Yes [id number] TAKE 1 [facility] ers -ACETAMINOP 8-30 TABLET BY ity of HEN 10-325 00:00: MOUTH [place] mg tablet 00 EVERY 4 Medical HOURS Branch NEEDED FOR PAIN (SCALE 4-6) *MAY MAKE DROWSY* CHRONIC PAIN INDICATION S: CHRONIC PAIN BACLOFEN Yes [id number] TAKE 1 [facility] mg tablet 8-30 TABLET BY ity o f 00:00: MOUTH 3 [place] 00 TIMES Medical DAILY *MAY Branch IMPAIR ALERTNESS* * HYDROCODONE Yes [id number] TAKE 1 [facility] ers -ACETAMINOP 8-30 TABLET BY ity of HEN 10-325 00:00: MOUTH [place] mg tablet 00 EVERY 4 Medical HOURS Branch NEEDED FOR PAIN (SCALE 4-6) *MAY MAKE DROWSY* CHRONIC PAIN INDICATION S: CHRONIC PAIN BACLOFEN Yes [id number] TAKE 1 [facility] mg tablet 8-30 TABLET BY ity o f 00:00: MOUTH 3 [place] 00 TIMES Medical DAILY *MAY Branch IMPAIR ALERTNESS* * HYDROCODONE Yes [id number] TAKE 1 [facility] ers -ACETAMINOP 8-30 TABLET BY ity of HEN 10-325 00:00: MOUTH [place] mg tablet 00 EVERY 4 Medical HOURS Branch NEEDED FOR PAIN (SCALE 4-6) *MAY MAKE DROWSY* CHRONIC PAIN INDICATION S: CHRONIC PAIN BACLOFEN Yes [id number] TAKE 1 [facility] mg tablet 8-30 TABLET BY ity o f 00:00: MOUTH 3 [place] 00 TIMES Medical DAILY *MAY Branch IMPAIR ALERTNESS* * HYDROCODONE Yes 2745 TAKE 1 [facility] ers -ACETAMINOP 8-30 TABLET BY ity of HEN 10-325 00:00: MOUTH [place] mg tablet 00 EVERY 4 Medical HOURS Branch NEEDED FOR PAIN (SCALE 4-6) *MAY MAKE DROWSY* CHRONIC PAIN INDICATION S: CHRONIC PAIN BACLOFEN Yes [id number] TAKE 1 [facility] mg tablet 8-30 TABLET BY ity o f 00:00: MOUTH 3 [place] 00 TIMES Medical DAILY *MAY Branch IMPAIR ALERTNESS* * HYDROCODONE Yes [id number] TAKE 1 [facility] ers -ACETAMINOP 8-30 TABLET BY ity of HEN 10-325 00:00: MOUTH [place] mg tablet 00 EVERY 4 Medical HOURS Branch NEEDED FOR PAIN (SCALE 4-6) *MAY MAKE DROWSY* CHRONIC PAIN INDICATION S: CHRONIC PAIN BACLOFEN Yes [id number] TAKE 1 [facility] mg tablet 8-30 TABLET BY ity o f 00:00: MOUTH 3 [place] 00 TIMES Medical DAILY *MAY Branch IMPAIR ALERTNESS* * HYDROCODONE 2021- No 2745 TAKE 1 [facility] vers -ACETAMINOP 11-19 TABLET BY it y of HEN 10-325 00:00: 00:00 MOUTH [place] mg tablet 00 :00 EVERY 4 Medical HOURS Branch NEEDED FOR PAIN (SCALE 4-6) *MAY MAKE DROWSY* CHRONIC PAIN INDICATION S: CHRONIC PAIN BACLOFEN 20 0 2021- No [id number] TAKE 1 [facility] mg tablet 11-19 TABLET BY ity of 00:00: 00:00 MOUTH 3 [place] 00 :00 TIMES Medical DAILY *MAY Branch IMPAIR ALERTNESS* * liraglutide Yes [id number] 1.8mg inject 1.8 [facility] (VICTOZA 8-25 mg under ity of 3-SOILA) 0.6 00:00: the skin [place] as mg/0.1 mL 00 in the Medical (18 mg/3 morning. Branch mL) injection insulin Yes [id number] INJECT 72 U nivers glargine 8-25 UNITS ity of U-300 conc 00:00: UNDER THE [place] ([place] 00 SKIN ONCE Medical SOLOSTAR DAILY IN Branch U-300 THE INSULIN) EVENING 300 unit/mL (ADJUSTING (1.5 mL) DOSE BY 2 InPn UNITS DAILY UNTIL FASTING BLOOD SUGAR LESS THAN 200) SERTraline Yes [id number] 200mg Take 2 [facility] 100 mg 8-25 tablets by ity of tablet 00:00: mouth in [place] 00 the Medical morning. Branch losartan 0 Yes [id number] 100mg Take 1 [facility] 100 mg 8-25 tablet by ity of tablet 00:00: mouth [place] 00 every Medical morning. Branch lurasidone Yes [id number] 40mg Take 1 [facility] ([place]) 40 8-25 tablet by [facility] mg tablet 00:00: [place] bedtime. [facility] Branch empaglifloz Yes [id number] 25mg Take 1 [facility] in 8-25 tablet by ity of ([place]) 00:00: mouth in [place] 25 mg Tab 00 the Medical morning. Branch hydrOXYzine 0 Yes [id number] TAKE 1 [facility] 50 mg 8-25 TABLET BY ity of tablet 00:00: MOUTH 3 [place] 00 TIMES Medical DAILY Branch NEEDED FOR ITCHING OR ANXIETY. *MAY IMPAIR ALERTNESS* * hydroCHLORO Yes [id number] 25mg Take 1 [facility] thiazide 25 8-25 tablet by [facility] mg tablet 00:00: mouth [place] 00 the Medical morning. Branch liraglutide Yes [id number] 1.8mg inject 1.8 [facility] (VICTOZA 8-25 mg under ity of 3-SOILA) 0.6 00:00: the skin [place] as mg/0.1 mL 00 in the Medical (18 mg/3 morning. Branch mL) injection insulin 0 Yes [id number] INJECT 72 U nivers glargine 8-25 UNITS ity of U-300 conc 00:00: UNDER THE [place] ([place] 00 SKIN ONCE Medical SOLOSTAR DAILY IN Branch U-300 THE INSULIN) EVENING 300 unit/mL (ADJUSTING (1.5 mL) DOSE BY 2 InPn UNITS DAILY UNTIL FASTING BLOOD SUGAR LESS THAN 200) SERTraline 0 Yes [id number] 200mg Take 2 [facility] 100 mg 8-25 tablets by ity of tablet 00:00: mouth in [place] 00 the Medical morning. Branch losartan 0 Yes [id number] 100mg Take 1 [facility] 100 mg 8-25 tablet by ity of tablet 00:00: mouth [place] 00 every Medical morning. Branch lurasidone 0 Yes [id number] 40mg Take 1 [facility] ([place]) 40 8-25 tablet by [facility] mg tablet 00:00: [place] 00 bedtime. Medical Branch empaglifloz 2021-0 Yes [id number] 25mg Take 1 [facility] in 8-25 tablet by ity of ([place]) 00:00: mouth in [place] 25 mg Tab 00 the Medical morning. Branch hydrOXYzine 2021-0 Yes [id number] TAKE 1 [facility] 50 mg 8-25 TABLET BY ity of tablet 00:00: MOUTH 3 [place] 00 TIMES Medical DAILY Branch NEEDED FOR ITCHING OR ANXIETY. *MAY IMPAIR ALERTNESS* * hydroCHLORO 2021-0 Yes [id number] 25mg Take 1 [facility] thiazide 25 8-25 tablet by [facility] of mg tablet 00:00: mouth [place] 00 the Medical morning. Branch liraglutide Yes [id number] 1.8mg inject 1.8 [facility] (VICTOZA 8-25 mg under ity of 3-SOILA) 0.6 00:00: the skin [place] as mg/0.1 mL 00 in the Medical (18 mg/3 morning. Branch mL) injection insulin Yes [id number] INJECT 72 U nivers glargine 8-25 UNITS ity of U-300 conc 00:00: UND[place] THE [place] ([place] 00 SKIN ONCE Medical SOLOSTAR DAILY IN Branch U-300 THE INSULIN) EVENING 300 unit/mL (ADJUSTING (1.5 mL) DOSE BY 2 InPn UNITS DAILY UNTIL FASTING BLOOD SUGAR LESS THAN 200) SERTraline Yes [id number] 200mg Take 2 [facility] 100 mg 8-25 tablets by ity of tablet 00:00: mouth in [place] 00 the Medical morning. Branch losartan Yes [id number] 100mg Take 1 [facility] 100 mg 8-25 tablet by ity of tablet 00:00: mouth [place] 00 every Medical morning. Branch lurasidone Yes [id number] 40mg Take 1 [facility] ([place]) 40 8-25 tablet by [facility] mg tablet 00:00: [place] 00 bedtime. Medical Branch empaglifloz Yes [id number] 25mg Take 1 [facility] in 8-25 tablet by ity of ([place]) 00:00: mouth in [place] 25 mg Tab 00 the Medical morning. Branch hydrOXYzine Yes [id number] TAKE 1 [facility] 50 mg 8-25 TABLET BY ity of tablet 00:00: MOUTH 3 [place] 00 TIMES Medical DAILY Branch NEEDED FOR ITCHING OR ANXIETY. *MAY IMPAIR ALERTNESS* * hydroCHLORO Yes [id number] 25mg Take 1 [facility] thiazide 25 8-25 tablet by [facility] of mg tablet 00:00: mouth [place] 00 the Medical morning. Branch liraglutide Yes [id number] 1.8mg inject 1.8 [facility] (VICTOZA 8-25 mg under ity of 3-SOILA) 0.6 00:00: the skin [place] mg/0.1 mL 00 in the Medical (18 mg/3 morning. Branch mL) injection insulin Yes [id number] INJECT 72 U nivers glargine 8-25 UNITS ity of U-300 conc 00:00: UNDER THE [place] ([place] 00 SKIN ONCE Medical SOLOSTAR DAILY IN Branch U-300 THE INSULIN) EVENING 300 unit/mL (ADJUSTING (1.5 mL) DOSE BY 2 InPn UNITS DAILY UNTIL FASTING BLOOD SUGAR LESS THAN 200) SERTraline Yes [id number] 200mg Take 2 [facility] 100 mg 8-25 tablets by ity of tablet 00:00: mouth in [place] 00 the Medical morning. Branch losartan Yes [id number] 100mg Take 1 [facility] [place] 100 mg 8-25 tablet by ity of tablet 00:00: mouth [place] 00 every Medical morning. Branch lurasidone Yes [id number] 40mg Take 1 [facility] ([place]) 40 8-25 tablet by [facility] mg tablet 00:00: [place] 00 bedtime. Medical Branch empaglifloz Yes [id number] 25mg Take 1 [facility] in 8-25 tablet by ity of ([place]) 00:00: mouth in [place] 25 mg Tab 00 the Medical morning. Branch hydrOXYzine Yes [id number] TAKE 1 [facility] 50 mg 8-25 TABLET BY ity of tablet 00:00: MOUTH 3 [place] 00 TIMES Medical DAILY Branch NEEDED FOR ITCHING OR ANXIETY. *MAY IMPAIR ALERTNESS* * hydroCHLORO Yes [id number] 25mg Take 1 [facility] thiazide 25 8-25 tablet by [facility] of mg tablet 00:00: mouth [place] 00 the Medical morning. Branch liraglutide Yes [id number] 1.8mg inject 1.8 [facility] (VICTOZA 8-25 mg under ity of 3-SOILA) 0.6 00:00: the skin [place] as mg/0.1 mL 00 in the Medical (18 mg/3 morning. Branch mL) injection insulin Yes [id number] INJECT 72 U nivers glargine 8-25 UNITS ity of U-300 conc 00:00: UNDER THE [place] ([place] 00 SKIN ONCE Medical SOLOSTAR DAILY IN Branch U-300 THE INSULIN) EVENING 300 unit/mL (ADJUSTING (1.5 mL) DOSE BY 2 InPn UNITS DAILY UNTIL FASTING BLOOD SUGAR LESS THAN 200) SERTraline 2022-0 Yes [id number] 200mg Take 2 [facility] 100 mg 8-25 tablets by ity of tablet 00:00: mouth in [place] 00 the Medical morning. Branch losartan 2021-0 Yes [id number] 100mg Take 1 [facility] 100 mg 8-25 tablet by ity of tablet 00:00: mouth [place] 00 every Medical morning. Branch lurasidone 2021-0 Yes [id number] 40mg Take 1 [facility] ([place]) 40 8-25 tablet by [facility] mg tablet 00:00: [place] 00 bedtime. Medical Branch empaglifloz 2021-0 Yes [id number] 25mg Take 1 [facility] in 8-25 tablet by ity of ([place]) 00:00: mouth in [place] 25 mg Tab 00 the Medical morning. Branch hydrOXYzine 2021-0 Yes [id number] TAKE 1 [facility] 50 mg 8-25 TABLET BY ity of tablet 00:00: MOUTH 3 [place] 00 TIMES Medical DAILY Branch NEEDED FOR ITCHING OR ANXIETY. *MAY IMPAIR ALERTNESS* * hydroCHLORO 2021-0 Yes [id number] 25mg Take 1 [facility] thiazide 25 8-25 tablet by [facility] of mg tablet 00:00: mouth [place] 00 the Medical morning. Branch liraglutide 0 Yes [id number] 1.8mg inject 1.8 [facility] (VICTOZA 8-25 mg under ity of 3-SOILA) 0.6 00:00: the [place] mg/0.1 mL 00 in the Medical (18 mg/3 morning. Branch mL) injection insulin 0 Yes [id number] INJECT 72 U nivers glargine 8-25 UNITS ity of U-300 conc 00:00: UNDER THE [place] ([place] 00 SKIN ONCE Medical SOLOSTAR DAILY IN Branch U-300 THE INSULIN) EVENING 300 unit/mL (ADJUSTING (1.5 mL) DOSE BY 2 InPn UNITS DAILY UNTIL FASTING BLOOD SUGAR LESS THAN 200) SERTraline 0 Yes [id number] 200mg Take 2 [facility] 100 mg 8-25 tablets by ity of tablet 00:00: mouth in [place] 00 the Medical morning. Branch losartan 2021-0 Yes [id number] 100mg Take 1 [facility] [place] 100 mg 8-25 tablet by ity of tablet 00:00: mouth [place] 00 every Medical morning. Branch lurasidone 2022-0 Yes [id number] 40mg Take 1 [facility] ([place]) 40 8-25 tablet by [facility] mg tablet 00:00: [place] 00 bedtime. Medical Branch empaglifloz 0 Yes [id number] 25mg Take 1 [facility] in 8-25 tablet by ity of ([place]) 00:00: mouth in [place] 25 mg Tab 00 the Medical morning. Branch hydrOXYzine 0 Yes [id number] TAKE 1 [facility] 50 mg 8-25 TABLET BY ity of tablet 00:00: MOUTH 3 [place] 00 TIMES Medical DAILY Branch NEEDED FOR ITCHING OR ANXIETY. *MAY IMPAIR ALERTNESS* * hydroCHLORO 0 Yes [id number] 25mg Take 1 [facility] thiazide 25 8-25 tablet by [facility] of mg tablet 00:00: mouth [place] 00 the Medical morning. Branch liraglutide Yes [id number] 1.8mg inject 1.8 [facility] (VICTOZA 8-25 mg under ity of 3-SOILA) 0.6 00:00: the skin [place] as mg/0.1 mL 00 in the Medical (18 mg/3 morning. Branch mL) injection insulin Yes [id number] INJECT 72 U nivers glargine 8-25 UNITS ity of U-300 conc 00:00: UNDER THE [place] ([place] 00 SKIN ONCE Medical SOLOSTAR DAILY IN Branch U-300 THE INSULIN) EVENING 300 unit/mL (ADJUSTING (1.5 mL) DOSE BY 2 InPn UNITS DAILY UNTIL FASTING BLOOD SUGAR LESS THAN 200) SERTraline 0 Yes [id number] 200mg Take 2 [facility] 100 mg 8-25 tablets by ity of tablet 00:00: mouth in [place] 00 the Medical morning. Branch losartan 0 Yes [id number] 100mg Take 1 [facility] 100 mg 8-25 tablet by ity of tablet 00:00: mouth [place] 00 every Medical morning. Branch lurasidone 0 Yes [id number] 40mg Take 1 [facility] ([place]) 40 8-25 tablet by [facility] mg tablet 00:00: mouth [place] 00 bedtime. Medical Branch empaglifloz 0 Yes [id number] 25mg Take 1 [facility] in 8-25 tablet by ity of ([place]) 00:00: mouth in [place] 25 mg Tab 00 the Medical morning. Branch hydrOXYzine Yes [id number] TAKE 1 [facility] 50 mg 8-25 TABLET BY ity of tablet 00:00: MOUTH 3 [place] 00 TIMES Medical DAILY Branch NEEDED FOR ITCHING OR ANXIETY. *MAY IMPAIR ALERTNESS* * hydroCHLORO Yes [id number] 25mg Take 1 [facility] thiazide 25 8-25 tablet by [facility]y of mg tablet 00:00: mouth [place] 00 the Medical morning. Branch liraglutide Yes [id number] 1.8mg inject 1.8 [facility] (VICTOZA 8-25 mg under ity of 3-[place]ILA) 0.6 00:00: the [place] as mg/0.1 mL 00 in the Medical (18 mg/3 morning. Branch mL) injection insulin Yes [id number] INJECT 72 U nivers glargine 8-25 UNITS ity of U-300 conc 00:00: UNDER THE [place] ([place] 00 SKIN ONCE Medical SOLOSTAR DAILY IN Branch U-300 THE INSULIN) EVENING 300 unit/mL (ADJUSTING (1.5 mL) DOSE BY 2 InPn UNITS DAILY UNTIL FASTING BLOOD SUGAR LESS THAN 200) SERTraline 0 Yes [id number] 200mg Take 2 [facility] 100 mg 8-25 tablets by ity of tablet 00:00: mouth in [place] 00 the Medical morning. Branch losartan 0 Yes [id number] 100mg Take 1 [facility] [place] 100 mg 8-25 tablet by ity of tablet 00:00: mouth [place] 00 every Medical morning. Branch lurasidone 0 Yes [id number] 40mg Take 1 [facility] ([place]) 40 8-25 tablet by [facility] of mg tablet 00:00: mouth [place] 00 bedtime. Medical Branch empaglifloz 0 Yes [id number] 25mg Take 1 [facility] in 8-25 tablet by ity of ([place]) 00:00: mouth in [place] 25 mg Tab 00 the Medical morning. Branch hydrOXYzine Yes [id number] TAKE 1 [facility] 50 mg 8-25 TABLET BY ity of tablet 00:00: MOUTH 3 [place] 00 TIMES Medical DAILY Branch NEEDED FOR ITCHING OR ANXIETY. *MAY IMPAIR ALERTNESS* * hydroCHLORO Yes [id number] 25mg Take 1 [facility] thiazide 25 8-25 tablet by [facility] of mg tablet 00:00: mouth [place] 00 the Medical morning. Branch liraglutide Yes [id number] 1.8mg inject 1.8 [facility] (VICTOZA 8-25 mg under ity of 3-SOILA) 0.6 00:00: the skin [place] as mg/0.1 mL 00 in the Medical (18 mg/3 morning. Branch mL) injection insulin Yes [id number] INJECT 72 U nivers glargine 8-25 UNITS ity of U-300 conc 00:00: UNDER THE [place] ([place] 00 SKIN ONCE Medical SOLOSTAR DAILY IN Branch U-300 THE INSULIN) EVENING 300 unit/mL (ADJUSTING (1.5 mL) DOSE BY 2 InPn UNITS DAILY UNTIL FASTING BLOOD SUGAR LESS THAN 200) SERTraline 0 Yes [id number] 200mg Take 2 [facility] 100 mg 8-25 tablets by ity of tablet 00:00: mouth in [place] 00 the Medical morning. Branch losartan 0 Yes [id number] 100mg Take 1 [facility] 100 mg 8-25 tablet by ity of tablet 00:00: mouth [place] 00 every Medical morning. Branch lurasidone 0 Yes [id number] 40mg Take 1 [facility] ([place]) 40 8-25 tablet by [facility] of mg tablet 00:00: mouth [place] 00 bedtime. Medical Branch empaglifloz 2021-0 Yes [id number] 25mg Take 1 [facility] in 8-25 tablet by ity of ([place]) 00:00: mouth in [place] 25 mg Tab 00 the Medical morning. Branch hydrOXYzine 0 Yes [id number] TAKE 1 [facility] 50 mg 8-25 TABLET BY ity of tablet 00:00: MOUTH 3 [place] 00 TIMES Medical DAILY Branch NEEDED FOR ITCHING OR ANXIETY. *MAY IMPAIR ALERTNESS* * hydroCHLORO Yes [id number] 25mg Take 1 [facility] thiazide 25 8-25 tablet by ity of mg tablet 00:00: mouth [place] 00 the Medical morning. Branch liraglutide Yes [id number] 1.8mg inject 1.8 [facility] (VICTOZA 8-25 mg under ity of 3-[place]ILA) 0.6 00:00: the skin [place] as mg/0.1 mL 00 in the Medical (18 mg/3 morning. Branch mL) injection insulin Yes [id number] INJECT 72 U nivers glargine 8-25 UNITS ity of U-300 conc 00:00: UNDER THE [place] ([place] 00 SKIN ONCE Medical SOLOSTAR DAILY IN Branch U-300 THE INSULIN) EVENING 300 unit/mL (ADJUSTING (1.5 mL) DOSE BY 2 InPn UNITS DAILY UNTIL FASTING BLOOD SUGAR LESS THAN 200) SERTraline Yes [id number] 200mg Take 2 [facility] 100 mg 8-25 tablets by ity of tablet 00:00: mouth in [place] 00 the Medical morning. Branch losartan Yes [id number] 100mg Take 1 [facility] 100 mg 8-25 tablet by ity of tablet 00:00: mouth [place] 00 every Medical morning. Branch lurasidone Yes [id number] 40mg Take 1 [facility] ([place]) 40 8-25 tablet by [facility] of mg tablet 00:00: [place] 00 bedtime. Medical Branch empaglifloz Yes [id number] 25mg Take 1 [facility] in 8-25 tablet by ity of ([place]) 00:00: mouth in [place] 25 mg Tab 00 the Medical morning. Branch hydrOXYzine 0 Yes [id number] TAKE 1 [facility] 50 mg 8-25 TABLET BY ity of tablet 00:00: MOUTH 3 [place] 00 TIMES Medical DAILY Branch NEEDED FOR ITCHING OR ANXIETY. *MAY IMPAIR ALERTNESS* * hydroCHLORO Yes [id number] 25mg Take 1 [facility] thiazide 25 8-25 tablet by [facility]y of mg tablet 00:00: mouth [place] 00 the Medical morning. Branch liraglutide Yes [id number] 1.8mg inject 1.8 [facility] (VICTOZA 8-25 mg under ity of 3-[place]ILA) 0.6 00:00: the skin [place] as mg/0.1 mL 00 in the Medical (18 mg/3 morning. Branch mL) injection SERTraline 0 Yes [id number] 200mg Take 2 [facility] 100 mg 8-25 tablets by ity of tablet 00:00: mouth in [place] 00 the Medical morning. Branch losartan 2021-0 Yes [id number] 100mg Take 1 [facility] 100 mg 8-25 tablet by ity of tablet 00:00: mouth [place] 00 every Medical morning. Branch lurasidone 2021-0 Yes [id number] 40mg Take 1 [facility] ([place]) 40 8-25 tablet by [facility] of mg tablet 00:00: mouth [place] 00 bedtime. Medical Branch empaglifloz 2021-0 Yes [id number] 25mg Take 1 [facility] in 8-25 tablet by ity of ([place]) 00:00: mouth in [place] 25 mg Tab 00 the Medical morning. Branch hydrOXYzine 2021-0 Yes [id number] TAKE 1 [facility] 50 mg 8-25 TABLET BY ity of tablet 00:00: MOUTH 3 [place] 00 TIMES Medical DAILY Branch NEEDED FOR ITCHING OR ANXIETY. *MAY IMPAIR ALERTNESS* * hydroCHLORO 2021-0 Yes [id number] 25mg Take 1 [facility] thiazide 25 8-25 tablet by [facility] of mg tablet 00:00: mouth [place] 00 the Medical morning. Branch liraglutide 2021-0 Yes [id number] 1.8mg inject 1.8 [facility] (VICTOZA 8-25 mg under ity of 3-[place]ILA) 0.6 00:00: the skin [place] as mg/0.1 mL 00 in the Medical (18 mg/3 morning. Branch mL) injection SERTraline 2021-0 Yes [id number] 200mg Take 2 [facility] 100 mg 8-25 tablets by ity of tablet 00:00: mouth in [place] 00 the Medical morning. Branch losartan 2021-0 Yes [id number] 100mg Take 1 [facility] 100 mg 8-25 tablet by ity of tablet 00:00: mouth [place] 00 every Medical morning. Branch lurasidone 2021-0 Yes [id number] 40mg Take 1 [facility] ([place]) 40 8-25 tablet by [facility] of mg tablet 00:00: [place] 00 bedtime. Medical Branch empaglifloz 2021-0 Yes [id number] 25mg Take 1 [facility] in 8-25 tablet by ity of ([place]) 00:00: mouth in [place] 25 mg Tab 00 the Medical morning. Branch hydrOXYzine 2021-0 Yes [id number] TAKE 1 [facility] 50 mg 8-25 TABLET BY ity of tablet 00:00: MOUTH 3 [place] 00 TIMES Medical DAILY Branch NEEDED FOR ITCHING OR ANXIETY. *MAY IMPAIR ALERTNESS* * hydroCHLORO 2021-0 Yes [id number] 25mg Take 1 [facility] thiazide 25 8-25 tablet by [facility] of mg tablet 00:00: mouth [place] 00 the Medical morning. Branch liraglutide 2021-0 Yes [id number] 1.8mg inject 1.8 [facility] (VICTOZA 8-25 mg under ity of 3-[place]ILA) 0.6 00:00: the skin [place] as mg/0.1 mL 00 in the Medical (18 mg/3 morning. Branch mL) injection SERTraline 2021-0 Yes [id number] 200mg Take 2 [facility] 100 mg 8-25 tablets by ity of tablet 00:00: mouth in [place] 00 the Medical morning. Branch losartan 2021-0 Yes [id number] 100mg Take 1 [facility] 100 mg 8-25 tablet by ity of tablet 00:00: mouth [place] 00 every Medical morning. Branch lurasidone 2021-0 Yes [id number] 40mg Take 1 [facility] ([place]) 40 8-25 tablet by [facility] of mg tablet 00:00: [place] 00 bedtime. Medical Branch empaglifloz 2021-0 Yes [id number] 25mg Take 1 [facility] in 8-25 tablet by ity of ([place]) 00:00: mouth in [place] 25 mg Tab 00 the Medical morning. Branch hydrOXYzine 2021-0 Yes [id number] TAKE 1 [facility] 50 mg 8-25 TABLET BY ity of tablet 00:00: MOUTH 3 [place] 00 TIMES Medical DAILY Branch NEEDED FOR ITCHING OR ANXIETY. *MAY IMPAIR ALERTNESS* * hydroCHLORO 2021-0 Yes [id number] 25mg Take 1 [facility] thiazide 25 8-25 tablet by [facility] of mg tablet 00:00: mouth [place] 00 the Medical morning. Branch liraglutide 2021-0 Yes [id number] 1.8mg inject 1.8 [facility] (VICTOZA 8-25 mg under ity of 3-SOILA) 0.6 00:00: the skin [place] as mg/0.1 mL 00 in the Medical (18 mg/3 morning. Branch mL) injection SERTraline 2021-0 Yes [id number] 200mg Take 2 [facility] 100 mg 8-25 tablets by ity of tablet 00:00: mouth in [place] 00 the Medical morning. Branch losartan 2021-0 Yes [id number] 100mg Take 1 [facility] 100 mg 8-25 tablet by ity of tablet 00:00: mouth [place] 00 every Medical morning. Branch lurasidone 2021-0 Yes [id number] 40mg Take 1 [facility] ([place]) 40 8-25 tablet by [facility] of mg tablet 00:00: mouth [place] 00 bedtime. Medical Branch empaglifloz 2021-0 Yes [id number] 25mg Take 1 [facility] in 8-25 tablet by ity of ([place]) 00:00: mouth in [place] 25 mg Tab 00 the Medical morning. Branch hydrOXYzine 2021-0 Yes [id number] TAKE 1 [facility] 50 mg 8-25 TABLET BY ity of tablet 00:00: MOUTH 3 [place] 00 TIMES Medical DAILY Branch NEEDED FOR ITCHING OR ANXIETY. *MAY IMPAIR ALERTNESS* * hydroCHLORO 2021-0 Yes [id number] 25mg Take 1 [facility] thiazide 25 8-25 tablet by [facility] of mg tablet 00:00: mouth [place] 00 the Medical morning. Branch liraglutide 2021-0 Yes [id number] 1.8mg inject 1.8 [facility] (VICTOZA 8-25 mg under ity of 3-SOILA) 0.6 00:00: the skin [place] as mg/0.1 mL 00 in the Medical (18 mg/3 morning. Branch mL) injection SERTraline 2021-0 Yes [id number] 200mg Take 2 [facility] 100 mg 8-25 tablets by ity of tablet 00:00: mouth in [place] 00 the Medical morning. Branch losartan 2021-0 Yes [id number] 100mg Take 1 [facility] 100 mg 8-25 tablet by ity of tablet 00:00: mouth [place] 00 every Medical morning. Branch lurasidone 2021-0 Yes [id number] 40mg Take 1 [facility] ([place]) 40 8-25 tablet by [facility] of mg tablet 00:00: mouth [place] 00 bedtime. Medical Branch empaglifloz 2021-0 Yes [id number] 25mg Take 1 [facility] in 8-25 tablet by [facility]y of ([place]) 00:00: mouth in [place] 25 mg Tab 00 the Medical morning. Branch hydrOXYzine 2021-0 Yes [id number] TAKE 1 [facility] 50 mg 8-25 TABLET BY ity of tablet 00:00: MOUTH 3 [place] 00 TIMES Medical DAILY Branch NEEDED FOR ITCHING OR ANXIETY. *MAY IMPAIR ALERTNESS* * hydroCHLORO 2021-0 Yes [id number] 25mg Take 1 [facility] thiazide 25 8-25 tablet by [facility] of mg tablet 00:00: mouth [place] 00 the Medical morning. Branch liraglutide 2021-0 Yes [id number] 1.8mg inject 1.8 [facility] (VICTOZA 8-25 mg under ity of 3-[place]ILA) 0.6 00:00: the skin [place] as mg/0.1 mL 00 in the Medical (18 mg/3 morning. Branch mL) injection SERTraline 2021-0 Yes [id number] 200mg Take 2 [facility] 100 mg 8-25 tablets by ity of tablet 00:00: mouth in [place] 00 the Medical morning. Branch losartan 2021-0 Yes [id number] 100mg Take 1 [facility] 100 mg 8-25 tablet by ity of tablet 00:00: mouth [place] 00 every Medical morning. Branch lurasidone 2021-0 Yes [id number] 40mg Take 1 [facility] ([place]) 40 8-25 tablet by [facility] of mg tablet 00:00: mouth [place] 00 bedtime. Medical Branch empaglifloz 2021-0 Yes [id number] 25mg Take 1 [facility] in 8-25 tablet by [facility]y of ([place]) 00:00: mouth in [place] 25 mg Tab 00 the Medical morning. Branch hydrOXYzine 2021-0 Yes [id number] TAKE 1 [facility] 50 mg 8-25 TABLET BY ity of tablet 00:00: MOUTH 3 [place] 00 TIMES Medical DAILY Branch NEEDED FOR ITCHING OR ANXIETY. *MAY IMPAIR ALERTNESS* * hydroCHLORO 2021-0 Yes [id number] 25mg Take 1 [facility] thiazide 25 8-25 tablet by [facility] of mg tablet 00:00: mouth [place] 00 the Medical morning. Branch liraglutide 2021-0 Yes [id number] 1.8mg inject 1.8 [facility] (VICTOZA 8-25 mg under ity of 3-SOILA) 0.6 00:00: the skin [place] as mg/0.1 mL 00 in the Medical (18 mg/3 morning. Branch mL) injection SERTraline 2021-0 Yes [id number] 200mg Take 2 [facility] 100 mg 8-25 tablets by ity of tablet 00:00: mouth in [place] 00 the Medical morning. Branch losartan 2021-0 Yes [id number] 100mg Take 1 [facility] 100 mg 8-25 tablet by ity of tablet 00:00: mouth [place] 00 every Medical morning. Branch lurasidone 2021-0 Yes [id number] 40mg Take 1 [facility] ([place]) 40 8-25 tablet by [facility] of mg tablet 00:00: mouth [place] 00 bedtime. Medical Branch empaglifloz 2021-0 Yes [id number] 25mg Take 1 [facility] in 8-25 tablet by [facility]y of ([place]) 00:00: mouth in [place] 25 mg Tab 00 the Medical morning. Branch hydrOXYzine 2021-0 Yes [id number] TAKE 1 [facility] 50 mg 8-25 TABLET BY ity of tablet 00:00: MOUTH 3 [place] 00 TIMES Medical DAILY Branch NEEDED FOR ITCHING OR ANXIETY. *MAY IMPAIR ALERTNESS* * hydroCHLORO 2021-0 Yes [id number] 25mg Take 1 [facility] thiazide 25 8-25 tablet by [facility] of mg tablet 00:00: mouth [place] 00 the Medical morning. Branch liraglutide 2021-0 Yes [id number] 1.8mg inject 1.8 [facility] (VICTOZA 8-25 mg under ity of 3-SOILA) 0.6 00:00: the skin [place] as mg/0.1 mL 00 in the Medical (18 mg/3 morning. Branch mL) injection SERTraline 2021-0 Yes [id number] 200mg Take 2 [facility] 100 mg 8-25 tablets by ity of tablet 00:00: mouth in [place] 00 the Medical morning. Branch losartan 2021-0 Yes [id number] 100mg Take 1 [facility] 100 mg 8-25 tablet by ity of tablet 00:00: mouth [place] 00 every Medical morning. Branch lurasidone 2021-0 Yes [id number] 40mg Take 1 [facility] ([place]) 40 8-25 tablet by [facility] mg tablet 00:00: [place] 00 bedtime. Medical Branch empaglifloz 2021-0 Yes [id number] 25mg Take 1 [facility] in 8-25 tablet by [facility]y of ([place]) 00:00: mouth in [place] 25 mg Tab 00 the Medical morning. Branch hydrOXYzine 2021-0 Yes [id number] TAKE 1 [facility] 50 mg 8-25 TABLET BY ity of tablet 00:00: MOUTH 3 [place] 00 TIMES Medical DAILY Branch NEEDED FOR ITCHING OR ANXIETY. *MAY IMPAIR ALERTNESS* * hydroCHLORO 2022-0 Yes [id number] 25mg Take 1 [facility] thiazide 25 8-25 tablet by ity of mg tablet 00:00: mouth [facility] 00 the Medical morning. Branch SERTraline 2-0 Yes [id number] 200mg Take 2 [facility] 100 mg 8-25 tablets by ity of tablet 00:00: mouth in [place] 00 the Medical morning. Branch losartan 2-0 Yes [id number] 100mg Take 1 [facility] 100 mg 8-25 tablet by ity of tablet 00:00: mouth [place] 00 every Medical morning. Branch lurasidone 2-0 Yes [id number] 40mg Take 1 [facility] ([place]) 40 8-25 tablet by ity of mg tablet 00:00: mouth at [facility] 00 bedtime. Medical Branch empaglifloz 2-0 Yes [id number] 25mg Take 1 [facility] in 8-25 tablet by ity of ([place]) 00:00: mouth in [place] 25 mg Tab 00 the Medical morning. Branch hydrOXYzine 2021-0 Yes [id number] TAKE 1 [facility] 50 mg 8-25 TABLET BY ity of tablet 00:00: MOUTH 3 [place] 00 TIMES Medical DAILY Branch NEEDED FOR ITCHING OR ANXIETY. *MAY IMPAIR ALERTNESS* * hydroCHLORO 2022-0 Yes [id number] 25mg Take 1 [facility] thiazide 25 8-25 tablet by ity of mg tablet 00:00: mouth in [facility] 00 the Medical morning. Branch SERTraline 2-0 Yes [id number] 200mg Take 2 [facility] 100 mg 8-25 tablets by ity of tablet 00:00: mouth in [place] 00 the Medical morning. Branch losartan 2-0 Yes [id number] 100mg Take 1 [facility] 100 mg 8-25 tablet by ity of tablet 00:00: mouth [place] 00 every Medical morning. Branch empaglifloz 2022-0 Yes [id number] 25mg Take 1 [facility] in 8-25 tablet by ity of ([place]) 00:00: mouth in [place] 25 mg Tab 00 the Medical morning. Branch hydrOXYzine 2021-0 Yes [id number] TAKE 1 [facility] 50 mg 8-25 TABLET BY ity of tablet 00:00: MOUTH 3 [place] 00 TIMES Medical DAILY Branch NEEDED FOR ITCHING OR ANXIETY. *MAY IMPAIR ALERTNESS* * hydroCHLORO 2022-0 Yes [id number] 25mg Take 1 [facility] thiazide 25 8-25 tablet by [facility] mg tablet 00:00: mouth [place] 00 the Medical morning. Branch SERTraline 2021-0 Yes [id number] 200mg Take 2 [facility] 100 mg 8-25 tablets by [facility] tablet 00:00: mouth in [place] 00 the Medical morning. Branch losartan 2021-0 Yes [id number] 100mg Take 1 [facility] 100 mg 8-25 tablet by [facility] tablet 00:00: mouth [place] 00 every Medical morning. Branch empaglifloz 2021-0 Yes [id number] 25mg Take 1 [facility] in 8-25 tablet by [facility] ([place]) 00:00: mouth in [place] 25 mg Tab 00 the Medical morning. Branch hydrOXYzine 2021-0 Yes [id number] TAKE 1 [facility] 50 mg 8-25 TABLET BY [facility] tablet 00:00: MOUTH 3 [place] 00 TIMES Medical DAILY Branch NEEDED FOR ITCHING OR ANXIETY. *MAY IMPAIR ALERTNESS* * hydroCHLORO 2-0 Yes [id number] 25mg Take 1 [facility] thiazide 25 8-25 tablet by [facility] mg tablet 00:00: mouth [place] 00 the Medical morning. Branch SERTraline 2021-0 Yes [id number] 200mg Take 2 [facility] 100 mg 8-25 tablets by [facility] tablet 00:00: mouth in [place] 00 the Medical morning. Branch losartan 2021-0 Yes [id number] 100mg Take 1 [facility] 100 mg 8-25 tablet by [facility] tablet 00:00: mouth [place] 00 every Medical morning. Branch empaglifloz 2-0 Yes [id number] 25mg Take 1 [facility] in 8-25 tablet by [facility] ([place]) 00:00: mouth in [place] 25 mg Tab 00 the Medical morning. Branch hydrOXYzine 2-0 Yes [id number] TAKE 1 [facility] 50 mg 8-25 TABLET BY [facility] tablet 00:00: MOUTH 3 [place] 00 TIMES Medical DAILY Branch NEEDED FOR ITCHING OR ANXIETY. *MAY IMPAIR ALERTNESS* * hydroCHLORO 2021-0 Yes [id number] 25mg Take 1 [facility] thiazide 25 8-25 tablet by [facility] mg tablet 00:00: mouth [place] 00 the Medical morning. Branch SERTraline 2021-0 Yes [id number] 200mg Take 2 [facility] 100 mg 8-25 tablets by [facility] tablet 00:00: mouth in [place] 00 the Medical morning. Branch losartan 2021-0 Yes [id number] 100mg Take 1 [facility] 100 mg 8-25 tablet by [facility] tablet 00:00: mouth [place] 00 every Medical morning. Branch empaglifloz 2021-0 Yes [id number] 25mg Take 1 [facility] in 8-25 tablet by [facility] ([place]) 00:00: mouth in [place] 25 mg Tab 00 the Medical morning. Branch hydrOXYzine 2021-0 Yes [id number] TAKE 1 [facility] 50 mg 8-25 TABLET BY [facility] tablet 00:00: MOUTH 3 [place] 00 TIMES Medical DAILY Branch NEEDED FOR ITCHING OR ANXIETY. *MAY IMPAIR ALERTNESS* * hydroCHLORO 2021-0 Yes [id number] 25mg Take 1 [facility] thiazide 25 8-25 tablet by [facility] mg tablet 00:00: mouth in [facility] 00 the Medical morning. Branch SERTraline 2021-0 Yes [id number] 200mg Take 2 [facility] 100 mg 8-25 tablets by [facility] tablet 00:00: mouth in [place] 00 the Medical morning. Branch losartan 2021-0 Yes [id number] 100mg Take 1 [facility] 100 mg 8-25 tablet by [facility] tablet 00:00: mouth [place] 00 every Medical morning. Branch empaglifloz 2021-0 Yes [id number] 25mg Take 1 [facility] in 8-25 tablet by [facility] ([place]) 00:00: mouth in [place] 25 mg Tab 00 the Medical morning. Branch hydrOXYzine 2021-0 Yes [id number] TAKE 1 [facility] 50 mg 8-25 TABLET BY [facility] tablet 00:00: MOUTH 3 [place] 00 TIMES Medical DAILY Branch NEEDED FOR ITCHING OR ANXIETY. *MAY IMPAIR ALERTNESS* * hydroCHLORO 2021-0 Yes [id number] 25mg Take 1 [facility] thiazide 25 8-25 tablet by [facility] mg tablet 00:00: mouth [place] 00 the Medical morning. Branch SERTraline 2021-0 Yes [id number] 200mg Take 2 [facility] 100 mg 8-25 tablets by [facility] of tablet 00:00: mouth in [place] 00 the Medical morning. Branch losartan 2021-0 Yes [id number] 100mg Take 1 [facility] 100 mg 8-25 tablet by [facility] tablet 00:00: mouth [place] 00 every Medical morning. Branch empaglifloz 2021-0 Yes [id number] 25mg Take 1 [facility] in 8-25 tablet by [facility] ([place]) 00:00: mouth in [place] 25 mg Tab 00 the Medical morning. Branch hydrOXYzine 2021-0 Yes [id number] TAKE 1 [facility] 50 mg 8-25 TABLET BY [facility] of tablet 00:00: MOUTH 3 [place] 00 TIMES Medical DAILY Branch NEEDED FOR ITCHING OR ANXIETY. *MAY IMPAIR ALERTNESS* * hydroCHLORO 2021-0 Yes [id number] 25mg Take 1 [facility] thiazide 25 8-25 tablet by [facility] mg tablet 00:00: mouth in [facility] 00 the Medical morning. Branch SERTraline 2021-0 Yes [id number] 200mg Take 2 [facility] 100 mg 8-25 tablets by [facility] of tablet 00:00: mouth in [place] 00 the Medical morning. Branch losartan 2021-0 Yes [id number] 100mg Take 1 [facility] 100 mg 8-25 tablet by [facility] tablet 00:00: mouth [place] 00 every Medical morning. Branch empaglifloz 2021-0 Yes [id number] 25mg Take 1 [facility] in 8-25 tablet by [facility] ([place]) 00:00: mouth in [place] 25 mg Tab 00 the Medical morning. Branch hydrOXYzine 2021-0 Yes [id number] TAKE 1 [facility] 50 mg 8-25 TABLET BY [facility] of tablet 00:00: MOUTH 3 [place] 00 TIMES Medical DAILY Branch NEEDED FOR ITCHING OR ANXIETY. *MAY IMPAIR ALERTNESS* * hydroCHLORO 2022-0 Yes [id number] 25mg Take 1 [facility] thiazide 25 8-25 tablet by [facility] mg tablet 00:00: mouth [place] 00 the Medical morning. Branch SERTraline 2021-0 Yes [id number] 200mg Take 2 [facility] 100 mg 8-25 tablets by [facility] of tablet 00:00: mouth in [place] 00 the Medical morning. Branch losartan 2021-0 Yes [id number] 100mg Take 1 [facility] 100 mg 8-25 tablet by [facility] of tablet 00:00: mouth [place] 00 every Medical morning. Branch empaglifloz 2021-0 Yes [id number] 25mg Take 1 [facility] in 8-25 tablet by [facility] ([place]) 00:00: mouth in [place] 25 mg Tab 00 the Medical morning. Branch hydrOXYzine 2021-0 Yes [id number] TAKE 1 [facility] 50 mg 8-25 TABLET BY [facility] of tablet 00:00: MOUTH 3 [place] 00 TIMES Medical DAILY Branch NEEDED FOR ITCHING OR ANXIETY. *MAY IMPAIR ALERTNESS* * hydroCHLORO 2021-0 Yes [id number] 25mg Take 1 [facility] thiazide 25 8-25 tablet by [facility] mg tablet 00:00: mouth [place] 00 the Medical morning. Branch SERTraline 2021-0 Yes [id number] 200mg Take 2 [facility] 100 mg 8-25 tablets by [facility] of tablet 00:00: mouth in [place] 00 the Medical morning. Branch losartan 2021-0 Yes [id number] 100mg Take 1 [facility] 100 mg 8-25 tablet by [facility] of tablet 00:00: mouth [place] 00 every Medical morning. Branch empaglifloz 2021-0 Yes [id number] 25mg Take 1 [facility] in 8-25 tablet by [facility] of ([place]) 00:00: mouth in [place] 25 mg Tab 00 the Medical morning. Branch hydroCHLORO 2021-0 Yes [id number] 25mg Take 1 [facility] thiazide 25 8-25 tablet by [facility] mg tablet 00:00: mouth [place] 00 the Medical morning. Branch SERTraline 2021-0 Yes [id number] 200mg Take 2 [facility] 100 mg 8-25 tablets by [facility] of tablet 00:00: mouth in [place] 00 the Medical morning. Branch losartan 2-0 Yes [id number] 100mg Take 1 [facility] 100 mg 8-25 tablet by [facility] of tablet 00:00: mouth [place] 00 every Medical morning. Branch empaglifloz 2-0 Yes [id number] 25mg Take 1 [facility] in 8-25 tablet by [facility] of ([place]) 00:00: mouth in [place] 25 mg Tab 00 the Medical morning. Branch hydroCHLORO 2-0 Yes [id number] 25mg Take 1 [facility] thiazide 25 8-25 tablet by [facility] mg tablet 00:00: mouth [place] 00 the Medical morning. Branch SERTraline 2022-0 Yes [id number] 200mg Take 2 [facility] 100 mg 8-25 tablets by [facility] of tablet 00:00: mouth in [place] 00 the Medical morning. Branch losartan 2022-0 Yes [id number] 100mg Take 1 [facility] 100 mg 8-25 tablet by [facility] of tablet 00:00: mouth [place] 00 every Medical morning. Branch empaglifloz 2022-0 Yes [id number] 25mg Take 1 [facility] in 8-25 tablet by [facility] of ([place]) 00:00: mouth in [place] 25 mg Tab 00 the Medical morning. Branch hydroCHLORO 2022-0 Yes [id number] 25mg Take 1 [facility] thiazide 25 8-25 tablet by [facility] of mg tablet 00:00: mouth in [facility] 00 the Medical morning. Branch SERTraline 2022-0 Yes [id number] 200mg Take 2 [facility] 100 mg 8-25 tablets by [facility] of tablet 00:00: mouth in [place] 00 the Medical morning. Branch losartan 2-0 Yes [id number] 100mg Take 1 [facility] 100 mg 8-25 tablet by [facility] of tablet 00:00: mouth [place] 00 every Medical morning. Branch empaglifloz 2-0 Yes [id number] 25mg Take 1 [facility] in 8-25 tablet by [facility] of ([place]) 00:00: mouth in [place] 25 mg Tab 00 the Medical morning. Branch hydroCHLORO 2022-0 Yes [id number] 25mg Take 1 [facility] thiazide 25 8-25 tablet by [facility] of mg tablet 00:00: mouth in [facility] 00 the Medical morning. Branch SERTraline 2022-0 Yes [id number] 200mg Take 2 [facility] 100 mg 8-25 tablets by [facility] of tablet 00:00: mouth in [place] 00 the Medical morning. Branch losartan 2022-0 Yes [id number] 100mg Take 1 [facility] 100 mg 8-25 tablet by [facility] of tablet 00:00: mouth [place] 00 every Medical morning. Branch empaglifloz 2022-0 Yes [id number] 25mg Take 1 [facility] in 8-25 tablet by [facility] of ([place]) 00:00: mouth in [place] 25 mg Tab 00 the Medical morning. Branch hydroCHLORO 2022-0 Yes [id number] 25mg Take 1 [facility] thiazide 25 8-25 tablet by [facility] of mg tablet 00:00: mouth [place] 00 the Medical morning. Branch SERTraline 2-0 Yes [id number] 200mg Take 2 [facility] 100 mg 8-25 tablets by [facility] of tablet 00:00: mouth in [place] 00 the Medical morning. Branch losartan 2-0 Yes [id number] 100mg Take 1 [facility] 100 mg 8-25 tablet by [facility] of tablet 00:00: mouth [place] 00 every Medical morning. Branch empaglifloz 2-0 Yes [id number] 25mg Take 1 [facility] in 8-25 tablet by [facility] of ([place]) 00:00: mouth in [place] 25 mg Tab 00 the Medical morning. Branch hydroCHLORO 2-0 Yes [id number] 25mg Take 1 [facility] thiazide 25 8-25 tablet by [facility] of mg tablet 00:00: mouth [place] 00 the Medical morning. Branch SERTraline 2-0 Yes [id number] 200mg Take 2 [facility] 100 mg 8-25 tablets by it[facility] of tablet 00:00: mouth in [place] 00 the Medical morning. Branch losartan 2-0 Yes [id number] 100mg Take 1 [facility] 100 mg 8-25 tablet by [facility] of tablet 00:00: mouth [place] 00 every Medical morning. Branch empaglifloz 2-0 Yes [id number] 25mg Take 1 [facility] in 8-25 tablet by [facility] of ([place]) 00:00: mouth in [place] 25 mg Tab 00 the Medical morning. Branch hydroCHLORO 2-0 Yes [id number] 25mg Take 1 [facility] thiazide 25 8-25 tablet by [facility] of mg tablet 00:00: mouth [place] 00 the Medical morning. Branch SERTraline 2-0 Yes [id number] 200mg Take 2 [facility] 100 mg 8-25 tablets by [facility] of tablet 00:00: mouth in [place] 00 the Medical morning. Branch losartan 2022-0 Yes [id number] 100mg Take 1 [facility] 100 mg 8-25 tablet by [facility] of tablet 00:00: mouth [place] 00 every Medical morning. Branch empaglifloz 2022-0 Yes [id number] 25mg Take 1 [facility] in 8-25 tablet by [facility] of ([place]) 00:00: mouth in [place] 25 mg Tab 00 the Medical morning. Branch hydroCHLORO 2022-0 Yes [id number] 25mg Take 1 [facility] thiazide 25 8-25 tablet by [facility] of mg tablet 00:00: mouth [place] 00 the Medical morning. Branch SERTraline 2022-0 Yes [id number] 200mg Take 2 [facility] 100 mg 8-25 tablets by [facility] of tablet 00:00: mouth in [place] 00 the Medical morning. Branch losartan 2022-0 Yes [id number] 100mg Take 1 [facility] 100 mg 8-25 tablet by [facility] of tablet 00:00: mouth [place] 00 every Medical morning. Branch empaglifloz 2022-0 Yes [id number] 25mg Take 1 [facility] in 8-25 tablet by [facility] of ([place]) 00:00: mouth in [place] 25 mg Tab 00 the Medical morning. Branch hydroCHLORO 2022-0 Yes [id number] 25mg Take 1 [facility] thiazide 25 8-25 tablet by it[facility] of mg tablet 00:00: mouth in [facility] 00 the Medical morning. Branch SERTraline 2022-0 Yes [id number] 200mg Take 2 [facility] 100 mg 8-25 tablets by [facility] of tablet 00:00: mouth in [place] 00 the Medical morning. Branch losartan 2-0 Yes [id number] 100mg Take 1 [facility] 100 mg 8-25 tablet by [facility] of tablet 00:00: mouth [place] 00 every Medical morning. Branch empaglifloz 2022-0 Yes [id number] 25mg Take 1 [facility] in 8-25 tablet by it[facility] of ([place]) 00:00: mouth in [place] 25 mg Tab 00 the Medical morning. Branch hydroCHLORO 2022-0 Yes [id number] 25mg Take 1 [facility] thiazide 25 8-25 tablet by [facility] of mg tablet 00:00: mouth [place] 00 the Medical morning. Branch SERTraline 2022-0 Yes [id number] 200mg Take 2 [facility] 100 mg 8-25 tablets by it[facility] of tablet 00:00: mouth in [place] 00 the Medical morning. Branch losartan 2022-0 Yes [id number] 100mg Take 1 [facility] 100 mg 8-25 tablet by it[facility] of tablet 00:00: mouth [place] 00 every Medical morning. Branch empaglifloz 2022-0 Yes [id number] 25mg Take 1 [facility] in 8-25 tablet by it[facility] of ([place]) 00:00: mouth in [place] 25 mg Tab 00 the Medical morning. Branch hydroCHLORO 2022-0 Yes [id number] 25mg Take 1 [facility] thiazide 25 8-25 tablet by [facility] of mg tablet 00:00: mouth [place] 00 the Medical morning. Branch SERTraline 2022-0 Yes [id number] 200mg Take 2 [facility] 100 mg 8-25 tablets by it[facility] of tablet 00:00: mouth in [place] 00 the Medical morning. Branch losartan 2-0 Yes [id number] 100mg Take 1 [facility] 100 mg 8-25 tablet by [facility] of tablet 00:00: mouth [place] 00 every Medical morning. Branch empaglifloz 2-0 Yes [id number] 25mg Take 1 [facility] in 8-25 tablet by [facility] of ([place]) 00:00: mouth in [place] 25 mg Tab 00 the Medical morning. Branch hydroCHLORO 2022-0 Yes [id number] 25mg Take 1 [facility] thiazide 25 8-25 tablet by [facility] of mg tablet 00:00: mouth [place] 00 the Medical morning. Branch SERTraline 2-0 Yes [id number] 200mg Take 2 [facility] 100 mg 8-25 tablets by it[facility] of tablet 00:00: mouth in [place] 00 the Medical morning. Branch losartan 2-0 Yes [id number] 100mg Take 1 [facility] 100 mg 8-25 tablet by [facility] of tablet 00:00: mouth [place] 00 every Medical morning. Branch empaglifloz 2022-0 Yes [id number] 25mg Take 1 [facility] in 8-25 tablet by [facility] of ([place]) 00:00: mouth in [place] 25 mg Tab 00 the Medical morning. Branch hydroCHLORO 2022-0 Yes [id number] 25mg Take 1 [facility] thiazide 25 8-25 tablet by [facility] of mg tablet 00:00: mouth in [place] 00 the Medical morning. Branch SERTraline 2022-0 Yes [id number] 200mg Take 2 [facility] 100 mg 8-25 tablets by it[facility] of tablet 00:00: mouth in [place] 00 the Medical morning. Branch losartan 2022-0 Yes [id number] 100mg Take 1 [facility] 100 mg 8-25 tablet by [facility] of tablet 00:00: mouth [place] 00 every Medical morning. Branch empaglifloz 2022-0 Yes [id number] 25mg Take 1 [facility] in 8-25 tablet by ity of ([place]) 00:00: mouth in [place] 25 mg Tab 00 the Medical morning. Branch hydroCHLORO 2022-0 Yes [id number] 25mg Take 1 [facility] thiazide 25 8-25 tablet by [facility] of mg tablet 00:00: mouth [place] 00 the Medical morning. Branch SERTraline 2022-0 Yes [id number] 200mg Take 2 [facility] 100 mg 8-25 tablets by it[facility] of tablet 00:00: mouth in [place] 00 the Medical morning. Branch losartan 2-0 Yes [id number] 100mg Take 1 [facility] 100 mg 8-25 tablet by [facility] of tablet 00:00: mouth [place] 00 every Medical morning. Branch empaglifloz 2-0 Yes [id number] 25mg Take 1 [facility] in 8-25 tablet by it[facility] of ([place]) 00:00: mouth in [place] 25 mg Tab 00 the Medical morning. Branch hydroCHLORO 2-0 Yes [id number] 25mg Take 1 [facility] thiazide 25 8-25 tablet by [facility] of mg tablet 00:00: mouth [place] 00 the Medical morning. Branch SERTraline 2-0 Yes [id number] 200mg Take 2 [facility] 100 mg 8-25 tablets by it[facility] of tablet 00:00: mouth in [place] 00 the Medical morning. Branch losartan 2-0 Yes [id number] 100mg Take 1 [facility] 100 mg 8-25 tablet by [facility] of tablet 00:00: mouth [place] 00 every Medical morning. Branch empaglifloz 2-0 Yes [id number] 25mg Take 1 [facility] in 8-25 tablet by [facility] of ([place]) 00:00: mouth in [place] 25 mg Tab 00 the Medical morning. Branch hydroCHLORO 2022-0 Yes [id number] 25mg Take 1 [facility] thiazide 25 8-25 tablet by [facility] of mg tablet 00:00: mouth in [place] 00 the Medical morning. Branch SERTraline 2022-0 Yes [id number] 200mg Take 2 [facility] 100 mg 8-25 tablets by it[facility] of tablet 00:00: mouth in [place] 00 the Medical morning. Branch losartan 2022-0 Yes [id number] 100mg Take 1 [facility] 100 mg 8-25 tablet by [facility] of tablet 00:00: mouth [place] 00 every Medical morning. Branch empaglifloz 2022-0 Yes [id number] 25mg Take 1 [facility] in 8-25 tablet by ity of ([place]) 00:00: mouth in [place] 25 mg Tab 00 the Medical morning. Branch hydroCHLORO 2022-0 Yes [id number] 25mg Take 1 [facility] thiazide 25 8-25 tablet by [facility] of mg tablet 00:00: mouth [place] 00 the Medical morning. Branch SERTraline 2022-0 Yes [id number] 200mg Take 2 [facility] 100 mg 8-25 tablets by [facility] of tablet 00:00: mouth in [place] 00 the Medical morning. Branch losartan 2-0 Yes [id number] 100mg Take 1 [facility] 100 mg 8-25 tablet by [facility] of tablet 00:00: mouth [place] 00 every Medical morning. Branch empaglifloz 2-0 Yes [id number] 25mg Take 1 [facility] in 8-25 tablet by [facility] of ([place]) 00:00: mouth in [place] 25 mg Tab 00 the Medical morning. Branch hydroCHLORO 2022-0 Yes [id number] 25mg Take 1 [facility] thiazide 25 8-25 tablet by [facility] of mg tablet 00:00: mouth [place] 00 the Medical morning. Branch SERTraline 2-0 Yes [id number] 200mg Take 2 [facility] 100 mg 8-25 tablets by [facility] of tablet 00:00: mouth in [place] 00 the Medical morning. Branch losartan 2-0 Yes [id number] 100mg Take 1 [facility] 100 mg 8-25 tablet by [facility] of tablet 00:00: mouth [place] 00 every Medical morning. Branch empaglifloz 2022-0 Yes [id number] 25mg Take 1 [facility] in 8-25 tablet by [facility] of ([place]) 00:00: mouth in [place] 25 mg Tab 00 the Medical morning. Branch hydroCHLORO 2022-0 Yes [id number] 25mg Take 1 [facility] thiazide 25 8-25 tablet by [facility] of mg tablet 00:00: mouth in [place] 00 the Medical morning. Branch SERTraline 2022-0 Yes [id number] 200mg Take 2 [facility] 100 mg 8-25 tablets by [facility] of tablet 00:00: mouth in [place] 00 the Medical morning. Branch losartan 2022-0 Yes [id number] 100mg Take 1 [facility] 100 mg 8-25 tablet by [facility] of tablet 00:00: mouth [place] 00 every Medical morning. Branch empaglifloz 2022-0 Yes [id number] 25mg Take 1 [facility] in 8-25 tablet by it[facility] of ([place]) 00:00: mouth in [place] 25 mg Tab 00 the Medical morning. Branch hydroCHLORO 2022-0 Yes [id number] 25mg Take 1 [facility] thiazide 25 8-25 tablet by [facility] of mg tablet 00:00: mouth [place] 00 the Medical morning. Branch SERTraline 2022-0 Yes [id number] 200mg Take 2 [facility] 100 mg 8-25 tablets by it[facility] of tablet 00:00: mouth in [place] 00 the Medical morning. Branch losartan 2-0 Yes [id number] 100mg Take 1 [facility] 100 mg 8-25 tablet by [facility] of tablet 00:00: mouth [place] 00 every Medical morning. Branch empaglifloz 2-0 Yes [id number] 25mg Take 1 [facility] in 8-25 tablet by [facility] of ([place]) 00:00: mouth in [place] 25 mg Tab 00 the Medical morning. Branch hydroCHLORO 2-0 Yes [id number] 25mg Take 1 [facility] thiazide 25 8-25 tablet by [facility] of mg tablet 00:00: mouth in [place] 00 the Medical morning. Branch SERTraline 2-0 Yes [id number] 200mg Take 2 [facility] 100 mg 8-25 tablets by [facility] of tablet 00:00: mouth in [place] 00 the Medical morning. Branch losartan 2-0 Yes [id number] 100mg Take 1 [facility] 100 mg 8-25 tablet by [facility] of tablet 00:00: mouth [place] 00 every Medical morning. Branch empaglifloz 2022-0 Yes [id number] 25mg Take 1 [facility] in 8-25 tablet by [facility] of ([place]) 00:00: mouth in [place] 25 mg Tab 00 the Medical morning. Branch hydroCHLORO 2022-0 Yes [id number] 25mg Take 1 [facility] thiazide 25 8-25 tablet by [facility] of mg tablet 00:00: mouth in [place] 00 the Medical morning. Branch SERTraline 2022-0 Yes [id number] 200mg Take 2 [facility] 100 mg 8-25 tablets by [facility] of tablet 00:00: mouth in [place] 00 the Medical morning. Branch losartan 2022-0 Yes [id number] 100mg Take 1 [facility] 100 mg 8-25 tablet by [facility] of tablet 00:00: mouth [place] 00 every Medical morning. Branch empaglifloz 2022-0 Yes [id number] 25mg Take 1 [facility] in 8-25 tablet by [facility] of ([place]) 00:00: mouth in [place] 25 mg Tab 00 the Medical morning. Branch hydroCHLORO 2022-0 Yes [id number] 25mg Take 1 [facility] thiazide 25 8-25 tablet by [facility] of mg tablet 00:00: mouth [place] 00 the Medical morning. Branch SERTraline 2022-0 Yes [id number] 200mg Take 2 [facility] 100 mg 8-25 tablets by it[facility] of tablet 00:00: mouth in [place] 00 the Medical morning. Branch losartan 2-0 Yes [id number] 100mg Take 1 [facility] 100 mg 8-25 tablet by [facility] of tablet 00:00: mouth [place] 00 every Medical morning. Branch empaglifloz 2-0 Yes [id number] 25mg Take 1 [facility] in 8-25 tablet by ity of ([place]) 00:00: mouth in [place] 25 mg Tab 00 the Medical morning. Branch hydroCHLORO 2-0 Yes [id number] 25mg Take 1 [facility] thiazide 25 8-25 tablet by [facility] of mg tablet 00:00: mouth in [place] 00 the Medical morning. Branch SERTraline 2-0 Yes [id number] 200mg Take 2 [facility] 100 mg 8-25 tablets by ity of tablet 00:00: mouth in [place] 00 the Medical morning. Branch losartan 2-0 Yes [id number] 100mg Take 1 [facility] 100 mg 8-25 tablet by [facility]y of tablet 00:00: mouth [place] 00 every Medical morning. Branch empaglifloz 2022-0 Yes [id number] 25mg Take 1 [facility] in 8-25 tablet by ity of ([place]) 00:00: mouth in [place] 25 mg Tab 00 the Medical morning. Branch hydroCHLORO 2022-0 Yes [id number] 25mg Take 1 [facility] thiazide 25 8-25 tablet by [facility] of mg tablet 00:00: mouth [place] 00 the Medical morning. Branch SERTraline 2022-0 Yes [id number] 200mg Take 2 [facility] 100 mg 8-25 tablets by it[facility] of tablet 00:00: mouth in [place] 00 the Medical morning. Branch losartan 2022-0 Yes [id number] 100mg Take 1 [facility] 100 mg 8-25 tablet by [facility] of tablet 00:00: mouth [place] 00 every Medical morning. Branch empaglifloz 2022-0 Yes [id number] 25mg Take 1 [facility] in 8-25 tablet by [facility]y of ([place]) 00:00: mouth in [place] 25 mg Tab 00 the Medical morning. Branch hydroCHLORO 2022-0 Yes [id number] 25mg Take 1 [facility] thiazide 25 8-25 tablet by [facility] of mg tablet 00:00: mouth [place] 00 the Medical morning. Branch SERTraline 2022-0 Yes [id number] 200mg Take 2 [facility] 100 mg 8-25 tablets by [facility] of tablet 00:00: mouth in [place] 00 the Medical morning. Branch losartan 2-0 Yes [id number] 100mg Take 1 [facility] 100 mg 8-25 tablet by [facility] of tablet 00:00: mouth [place] 00 every Medical morning. Branch empaglifloz 2022-0 Yes [id number] 25mg Take 1 [facility] in 8-25 tablet by [facility]y of ([place]) 00:00: mouth in [place] 25 mg Tab 00 the Medical morning. Branch hydroCHLORO 2022-0 Yes [id number] 25mg Take 1 [facility] thiazide 25 8-25 tablet by [facility] of mg tablet 00:00: mouth [place] 00 the Medical morning. Branch SERTraline 2022-0 Yes [id number] 200mg Take 2 [facility] 100 mg 8-25 tablets by ity of tablet 00:00: mouth in [place] 00 the Medical morning. Branch losartan 2022-0 Yes [id number] 100mg Take 1 [facility] 100 mg 8-25 tablet by [facility] of tablet 00:00: mouth [place] 00 every Medical morning. Branch empaglifloz 2022-0 Yes [id number] 25mg Take 1 [facility] in 8-25 tablet by [facility] of ([place]) 00:00: mouth in [place] 25 mg Tab 00 the Medical morning. Branch hydroCHLORO 2022-0 Yes [id number] 25mg Take 1 [facility] thiazide 25 8-25 tablet by [facility] of mg tablet 00:00: mouth [place] 00 the Medical morning. Branch SERTraline 2022-0 Yes [id number] 200mg Take 2 [facility] 100 mg 8-25 tablets by ity of tablet 00:00: mouth in [place] 00 the Medical morning. Branch losartan 2022-0 Yes [id number] 100mg Take 1 [facility] 100 mg 8-25 tablet by [facility] of tablet 00:00: mouth [place] 00 every Medical morning. Branch empaglifloz 2022-0 Yes [id number] 25mg Take 1 [facility] in 8-25 tablet by ity of ([place]) 00:00: mouth in [place] 25 mg Tab 00 the Medical morning. Branch hydroCHLORO 2022-0 Yes [id number] 25mg Take 1 [facility] thiazide 25 8-25 tablet by [facility] of mg tablet 00:00: mouth [place] 00 the Medical morning. Branch SERTraline 2022-0 Yes [id number] 200mg Take 2 [facility] 100 mg 8-25 tablets by it[facility] of tablet 00:00: mouth in [place] 00 the Medical morning. Branch losartan 2022-0 Yes [id number] 100mg Take 1 [facility] 100 mg 8-25 tablet by [facility] of tablet 00:00: mouth [place] 00 every Medical morning. Branch empaglifloz 2022-0 Yes [id number] 25mg Take 1 [facility] in 8-25 tablet by [facility]y of ([place]) 00:00: mouth in [place] 25 mg Tab 00 the Medical morning. Branch hydroCHLORO 2022-0 Yes [id number] 25mg Take 1 [facility] thiazide 25 8-25 tablet by [facility] of mg tablet 00:00: mouth [place] 00 the Medical morning. Branch SERTraline 2022-0 Yes [id number] 200mg Take 2 [facility] 100 mg 8-25 tablets by [facility] of tablet 00:00: mouth in [place] 00 the Medical morning. Branch losartan 2022-0 Yes [id number] 100mg Take 1 [facility] 100 mg 8-25 tablet by [facility] of tablet 00:00: mouth [place] 00 every Medical morning. Branch empaglifloz 2022-0 Yes [id number] 25mg Take 1 [facility] in 8-25 tablet by [facility] of ([place]) 00:00: mouth in [place] 25 mg Tab 00 the Medical morning. Branch hydroCHLORO 2022-0 Yes [id number] 25mg Take 1 [facility] thiazide 25 8-25 tablet by [facility] of mg tablet 00:00: mouth [place] 00 the Medical morning. Branch SERTraline 2022-0 Yes [id number] 200mg Take 2 [facility] 100 mg 8-25 tablets by [facility] of tablet 00:00: mouth in [place] 00 the Medical morning. Branch losartan 2022-0 Yes [id number] 100mg Take 1 [facility] 100 mg 8-25 tablet by [facility] of tablet 00:00: mouth [place] 00 every Medical morning. Branch empaglifloz 2022-0 Yes [id number] 25mg Take 1 [facility] in 8-25 tablet by [facility] of ([facility]) 00:00: mouth in [place] 25 mg Tab 00 the Medical morning. Branch hydroCHLORO 2022-0 Yes [id number] 25mg Take 1 [facility] thiazide 25 8-25 tablet by [facility] mg tablet 00:00: mouth [place] 00 the Medical morning. Branch SERTraline 2-0 Yes [id number] 200mg Take 2 [facility] 100 mg 8-25 tablets by [facility] of tablet 00:00: mouth in [place] 00 the Medical morning. Branch losartan 2-0 Yes [id number] 100mg Take 1 [facility] 100 mg 8-25 tablet by [facility] of tablet 00:00: mouth [place] 00 every Medical morning. Branch empaglifloz 2-0 Yes [id number] 25mg Take 1 [facility] in 8-25 tablet by [facility] of ([place]) 00:00: mouth in [place] 25 mg Tab 00 the Medical morning. Branch hydroCHLORO 2022-0 Yes [id number] 25mg Take 1 [facility] thiazide 25 8-25 tablet by [facility] mg tablet 00:00: mouth [place] 00 the Medical morning. Branch SERTraline 2022-0 Yes [id number] 200mg Take 2 [facility] 100 mg 8-25 tablets by it[facility] of tablet 00:00: mouth in [place] 00 the Medical morning. Branch losartan 2022-0 Yes [id number] 100mg Take 1 [facility] 100 mg 8-25 tablet by [facility] of tablet 00:00: mouth [place] 00 every Medical morning. Branch empaglifloz 2022-0 Yes [id number] 25mg Take 1 [facility] in 8-25 tablet by [facility] of ([place]) 00:00: mouth in [place] 25 mg Tab 00 the Medical morning. Branch hydroCHLORO 2022-0 Yes [id number] 25mg Take 1 [facility] thiazide 25 8-25 tablet by [facility] of mg tablet 00:00: mouth [place] 00 the Medical morning. Branch SERTraline 2022-0 Yes [id number] 200mg Take 2 [facility] 100 mg 8-25 tablets by it[facility] of tablet 00:00: mouth in [place] 00 the Medical morning. Branch losartan 2-0 Yes [id number] 100mg Take 1 [facility] 100 mg 8-25 tablet by [facility] of tablet 00:00: mouth [place] 00 every Medical morning. Branch empaglifloz 2022-0 Yes [id number] 25mg Take 1 [facility] in 8-25 tablet by [facility] of ([place]) 00:00: mouth in [place] 25 mg Tab 00 the Medical morning. Branch hydroCHLORO 2022-0 Yes [id number] 25mg Take 1 [facility] thiazide 25 8-25 tablet by [facility] of mg tablet 00:00: mouth [place] 00 the Medical morning. Branch SERTraline 2-0 Yes [id number] 200mg Take 2 [facility] 100 mg 8-25 tablets by it[facility] of tablet 00:00: mouth in [place] 00 the Medical morning. Branch losartan 2-0 Yes [id number] 100mg Take 1 [facility] 100 mg 8-25 tablet by it[facility] of tablet 00:00: mouth [place] 00 every Medical morning. Branch empaglifloz 2-0 Yes [id number] 25mg Take 1 [facility] in 8-25 tablet by [facility] of ([place]) 00:00: mouth in [place] 25 mg Tab 00 the Medical morning. Branch hydroCHLORO 2022-0 Yes [id number] 25mg Take 1 [facility] thiazide 25 8-25 tablet by [facility] mg tablet 00:00: mouth [place] 00 the Medical morning. Branch SERTraline 2022-0 Yes [id number] 200mg Take 2 [facility] 100 mg 8-25 tablets by [facility] of tablet 00:00: mouth in [place] 00 the Medical morning. Branch losartan 2022-0 Yes [id number] 100mg Take 1 [facility] 100 mg 8-25 tablet by [facility] of tablet 00:00: mouth [place] 00 every Medical morning. Branch empaglifloz 2022-0 Yes [id number] 25mg Take 1 [facility] in 8-25 tablet by [facility] of ([place]) 00:00: mouth in [place] 25 mg Tab 00 the Medical morning. Branch hydroCHLORO 2022-0 Yes [id number] 25mg Take 1 [facility] thiazide 25 8-25 tablet by [facility] of mg tablet 00:00: mouth [place] 00 the Medical morning. Branch SERTraline 2022-0 Yes [id number] 200mg Take 2 [facility] 100 mg 8-25 tablets by it[facility] of tablet 00:00: mouth in [place] 00 the Medical morning. Branch losartan 2-0 Yes [id number] 100mg Take 1 [facility] 100 mg 8-25 tablet by it[facility] of tablet 00:00: mouth [place] 00 every Medical morning. Branch empaglifloz 2022-0 Yes [id number] 25mg Take 1 [facility] in 8-25 tablet by [facility] of ([place]) 00:00: mouth in [place] 25 mg Tab 00 the Medical morning. Branch hydroCHLORO 2-0 Yes [id number] 25mg Take 1 [facility] thiazide 25 8-25 tablet by [facility] of mg tablet 00:00: mouth [place] 00 the Medical morning. Branch SERTraline 2-0 Yes [id number] 200mg Take 2 [facility] 100 mg 8-25 tablets by ity of tablet 00:00: mouth in [place] 00 the Medical morning. Branch losartan 2-0 Yes [id number] 100mg Take 1 [facility] 100 mg 8-25 tablet by it[facility] of tablet 00:00: mouth [place] 00 every Medical morning. Branch empaglifloz 2-0 Yes [id number] 25mg Take 1 [facility] in 8-25 tablet by [facility] of ([place]) 00:00: mouth in [place] 25 mg Tab 00 the Medical morning. Branch hydroCHLORO 2022-0 Yes [id number] 25mg Take 1 [facility] thiazide 25 8-25 tablet by [facility] of mg tablet 00:00: mouth [place] 00 the Medical morning. Branch SERTraline 2022-0 Yes [id number] 200mg Take 2 [facility] 100 mg 8-25 tablets by it[facility] of tablet 00:00: mouth in [place] 00 the Medical morning. Branch losartan 2022-0 Yes [id number] 100mg Take 1 [facility] 100 mg 8-25 tablet by it[facility] of tablet 00:00: mouth [place] 00 every Medical morning. Branch empaglifloz 2022-0 Yes [id number] 25mg Take 1 [facility] in 8-25 tablet by [facility] of ([place]) 00:00: mouth in [place] 25 mg Tab 00 the Medical morning. Branch hydroCHLORO 2022-0 Yes [id number] 25mg Take 1 [facility] thiazide 25 8-25 tablet by [facility] of mg tablet 00:00: mouth [place] 00 the Medical morning. Branch SERTraline 2022-0 Yes [id number] 200mg Take 2 [facility] 100 mg 8-25 tablets by ity of tablet 00:00: mouth in [place] 00 the Medical morning. Branch losartan 2-0 Yes [id number] 100mg Take 1 [facility] 100 mg 8-25 tablet by it[facility] of tablet 00:00: mouth [place] 00 every Medical morning. Branch empaglifloz 2-0 Yes [id number] 25mg Take 1 [facility] in 8-25 tablet by [facility] of ([place]) 00:00: mouth in [place] 25 mg Tab 00 the Medical morning. Branch hydroCHLORO 2-0 Yes [id number] 25mg Take 1 [facility] thiazide 25 8-25 tablet by [facility] of mg tablet 00:00: mouth [place] 00 the Medical morning. Branch SERTraline 2-0 Yes [id number] 200mg Take 2 [facility] 100 mg 8-25 tablets by it[facility] of tablet 00:00: mouth in [place] 00 the Medical morning. Branch losartan 2-0 Yes [id number] 100mg Take 1 [facility] 100 mg 8-25 tablet by ity of tablet 00:00: mouth [place] 00 every Medical morning. Branch empaglifloz 2-0 Yes [id number] 25mg Take 1 [facility] in 8-25 tablet by [facility] of ([place]) 00:00: mouth in [place] 25 mg Tab 00 the Medical morning. Branch hydroCHLORO 2022-0 Yes [id number] 25mg Take 1 [facility] thiazide 25 8-25 tablet by [facility] of mg tablet 00:00: mouth [place] 00 the Medical morning. Branch SERTraline 2022-0 Yes [id number] 200mg Take 2 [facility] 100 mg 8-25 tablets by it[facility] of tablet 00:00: mouth in [place] 00 the Medical morning. Branch losartan 2022-0 Yes [id number] 100mg Take 1 [facility] 100 mg 8-25 tablet by it[facility] of tablet 00:00: mouth [place] 00 every Medical morning. Branch empaglifloz 2022-0 Yes [id number] 25mg Take 1 [facility] in 8-25 tablet by [facility] of ([place]) 00:00: mouth in [place] 25 mg Tab 00 the Medical morning. Branch hydroCHLORO 2022-0 Yes [id number] 25mg Take 1 [facility] thiazide 25 8-25 tablet by [facility] of mg tablet 00:00: mouth [place] 00 the Medical morning. Branch SERTraline 2022-0 Yes [id number] 200mg Take 2 [facility] 100 mg 8-25 tablets by it[facility] of tablet 00:00: mouth in [place] 00 the Medical morning. Branch losartan 2-0 Yes [id number] 100mg Take 1 [facility] 100 mg 8-25 tablet by it[facility] of tablet 00:00: mouth [place] 00 every Medical morning. Branch empaglifloz 2-0 Yes [id number] 25mg Take 1 [facility] in 8-25 tablet by [facility] of ([place]) 00:00: mouth in [place] 25 mg Tab 00 the Medical morning. Branch hydroCHLORO 2022-0 Yes [id number] 25mg Take 1 [facility] thiazide 25 8-25 tablet by [facility] of mg tablet 00:00: mouth [place] 00 the Medical morning. Branch SERTraline 2-0 Yes [id number] 200mg Take 2 [facility] 100 mg 8-25 tablets by ity of tablet 00:00: mouth in [place] 00 the Medical morning. Branch losartan 2-0 Yes [id number] 100mg Take 1 [facility] 100 mg 8-25 tablet by ity of tablet 00:00: mouth [place] 00 every Medical morning. Branch empaglifloz 2022-0 Yes [id number] 25mg Take 1 [facility] in 8-25 tablet by [facility] of ([place]) 00:00: mouth in [place] 25 mg Tab 00 the Medical morning. Branch hydroCHLORO 2022-0 Yes [id number] 25mg Take 1 [facility] thiazide 25 8-25 tablet by [facility] of mg tablet 00:00: mouth [place] 00 the Medical morning. Branch SERTraline 2022-0 Yes [id number] 200mg Take 2 [facility] 100 mg 8-25 tablets by it[facility] of tablet 00:00: mouth in [place] 00 the Medical morning. Branch losartan 2022-0 Yes [id number] 100mg Take 1 [facility] 100 mg 8-25 tablet by it[facility] of tablet 00:00: mouth [place] 00 every Medical morning. Branch empaglifloz 2022-0 Yes [id number] 25mg Take 1 [facility] in 8-25 tablet by [facility] of ([place]) 00:00: mouth in [place] 25 mg Tab 00 the Medical morning. Branch hydroCHLORO 2022-0 Yes [id number] 25mg Take 1 [facility] thiazide 25 8-25 tablet by [facility] of mg tablet 00:00: mouth [place] 00 the Medical morning. Branch SERTraline 2022-0 Yes [id number] 200mg Take 2 [facility] 100 mg 8-25 tablets by ity of tablet 00:00: mouth in [place] 00 the Medical morning. Branch losartan 2-0 Yes [id number] 100mg Take 1 [facility] 100 mg 8-25 tablet by ity of tablet 00:00: mouth [place] 00 every Medical morning. Branch empaglifloz 2-0 Yes [id number] 25mg Take 1 [facility] in 8-25 tablet by it[facility] of ([place]) 00:00: mouth in [place] 25 mg Tab 00 the Medical morning. Branch hydroCHLORO 2-0 Yes [id number] 25mg Take 1 [facility] thiazide 25 8-25 tablet by [facility] of mg tablet 00:00: mouth [place] 00 the Medical morning. Branch SERTraline 2-0 Yes [id number] 200mg Take 2 [facility] 100 mg 8-25 tablets by it[facility] of tablet 00:00: mouth in [place] 00 the Medical morning. Branch losartan 2-0 Yes [id number] 100mg Take 1 [facility] 100 mg 8-25 tablet by it[facility] of tablet 00:00: mouth [place] 00 every Medical morning. Branch empaglifloz 2-0 Yes [id number] 25mg Take 1 [facility] in 8-25 tablet by [facility] of ([place]) 00:00: mouth in [place] 25 mg Tab 00 the Medical morning. Branch hydroCHLORO 2022-0 Yes [id number] 25mg Take 1 [facility] thiazide 25 8-25 tablet by [facility] of mg tablet 00:00: mouth [place] 00 the Medical morning. Branch SERTraline 2022-0 Yes [id number] 200mg Take 2 [facility] 100 mg 8-25 tablets by ity of tablet 00:00: mouth in [place] 00 the Medical morning. Branch losartan 2022-0 Yes [id number] 100mg Take 1 [facility] 100 mg 8-25 tablet by ity of tablet 00:00: mouth [place] 00 every Medical morning. Branch empaglifloz 2022-0 Yes [id number] 25mg Take 1 [facility] in 8-25 tablet by it[facility] of ([place]) 00:00: mouth in [place] 25 mg Tab 00 the Medical morning. Branch hydroCHLORO 2022-0 Yes [id number] 25mg Take 1 [facility] thiazide 25 8-25 tablet by [facility] of mg tablet 00:00: mouth [place] 00 the Medical morning. Branch SERTraline 2022-0 Yes [id number] 200mg Take 2 [facility] 100 mg 8-25 tablets by it[facility] of tablet 00:00: mouth in [place] 00 the Medical morning. Branch losartan 2022-0 Yes [id number] 100mg Take 1 [facility] 100 mg 8-25 tablet by it[facility] of tablet 00:00: mouth [place] 00 every Medical morning. Branch empaglifloz 2022-0 Yes [id number] 25mg Take 1 [facility] in 8-25 tablet by it[facility] of ([place]) 00:00: mouth in [place] 25 mg Tab 00 the Medical morning. Branch hydroCHLORO 2022-0 Yes [id number] 25mg Take 1 [facility] thiazide 25 8-25 tablet by ity of mg tablet 00:00: mouth in [facility] 00 the Medical morning. Branch SERTraline 2022-0 Yes [id number] 200mg Take 2 [facility] 100 mg 8-25 tablets by ity of tablet 00:00: mouth in [place] 00 the Medical morning. Branch losartan 2-0 Yes [id number] 100mg Take 1 [facility] 100 mg 8-25 tablet by ity of tablet 00:00: mouth [place] 00 every Medical morning. Branch empaglifloz 2022-0 Yes [id number] 25mg Take 1 [facility] in 8-25 tablet by ity of ([place]) 00:00: mouth in [place] 25 mg Tab 00 the Medical morning. Branch hydroCHLORO 2022-0 Yes [id number] 25mg Take 1 [facility] thiazide 25 8-25 tablet by it[facility] of mg tablet 00:00: mouth [place] 00 the Medical morning. Branch SERTraline 2022-0 Yes [id number] 200mg Take 2 [facility] 100 mg 8-25 tablets by ity of tablet 00:00: mouth in [place] 00 the Medical morning. Branch losartan 2022-0 Yes [id number] 100mg Take 1 [facility] 100 mg 8-25 tablet by ity of tablet 00:00: mouth [place] 00 every Medical morning. Branch empaglifloz 2022-0 Yes [id number] 25mg Take 1 [facility] in 8-25 tablet by it[facility] of ([place]) 00:00: mouth in [place] 25 mg Tab 00 the Medical morning. Branch hydroCHLORO 2022-0 Yes [id number] 25mg Take 1 [facility] thiazide 25 8-25 tablet by it[facility] of mg tablet 00:00: mouth [place] 00 the Medical morning. Branch SERTraline 2022-0 Yes [id number] 200mg Take 2 [facility] 100 mg 8-25 tablets by ity of tablet 00:00: mouth in [place] 00 the Medical morning. Branch losartan 2-0 Yes [id number] 100mg Take 1 [facility] 100 mg 8-25 tablet by ity of tablet 00:00: mouth [place] 00 every Medical morning. Branch empaglifloz 2-0 Yes [id number] 25mg Take 1 [facility] in 8-25 tablet by ity of ([place]) 00:00: mouth in [place] 25 mg Tab 00 the Medical morning. Branch hydroCHLORO 2-0 Yes [id number] 25mg Take 1 [facility] thiazide 25 8-25 tablet by ity of mg tablet 00:00: mouth [place] 00 the Medical morning. Branch SERTraline 2-0 Yes [id number] 200mg Take 2 [facility] 100 mg 8-25 tablets by ity of tablet 00:00: mouth in [place] 00 the Medical morning. Branch losartan 2-0 Yes [id number] 100mg Take 1 [facility] 100 mg 8-25 tablet by ity of tablet 00:00: mouth [place] 00 every Medical morning. Branch empaglifloz 2-0 Yes [id number] 25mg Take 1 [facility] in 8-25 tablet by it[facility] of ([place]) 00:00: mouth in [place] 25 mg Tab 00 the Medical morning. Branch hydroCHLORO 2022-0 Yes [id number] 25mg Take 1 [facility] thiazide 25 8-25 tablet by it[facility] of mg tablet 00:00: mouth [place] 00 the Medical morning. Branch SERTraline 2022-0 Yes [id number] 200mg Take 2 [facility] 100 mg 8-25 tablets by ity of tablet 00:00: mouth in [place] 00 the Medical morning. Branch losartan 2022-0 Yes [id number] 100mg Take 1 [facility] 100 mg 8-25 tablet by ity of tablet 00:00: mouth [place] 00 every Medical morning. Branch empaglifloz 2-0 Yes [id number] 25mg Take 1 [facility] in 8-25 tablet by ity of ([place]) 00:00: mouth in [place] 25 mg Tab 00 the Medical morning. Branch hydroCHLORO 2022-0 Yes [id number] 25mg Take 1 [facility] thiazide 25 8-25 tablet by ity of mg tablet 00:00: mouth [place] 00 the Medical morning. Branch SERTraline 2-0 Yes [id number] 200mg Take 2 [facility] 100 mg 8-25 tablets by ity of tablet 00:00: mouth in [place] 00 the Medical morning. Branch losartan 2-0 Yes [id number] 100mg Take 1 [facility] 100 mg 8-25 tablet by ity of tablet 00:00: mouth [place] 00 every Medical morning. Branch empaglifloz 2-0 Yes [id number] 25mg Take 1 [facility] in 8-25 tablet by ity of ([place]) 00:00: mouth in [place] 25 mg Tab 00 the Medical morning. Branch hydroCHLORO 2-0 Yes [id number] 25mg Take 1 [facility] thiazide 25 8-25 tablet by ity of mg tablet 00:00: mouth [place] 00 the Medical morning. Branch SERTraline 2-0 Yes [id number] 200mg Take 2 [facility] 100 mg 8-25 tablets by ity of tablet 00:00: mouth in [place] 00 the Medical morning. Branch losartan 2-0 Yes [id number] 100mg Take 1 [facility] 100 mg 8-25 tablet by ity of tablet 00:00: mouth [place] 00 every Medical morning. Branch empaglifloz 2022-0 Yes [id number] 25mg Take 1 [facility] in 8-25 tablet by ity of ([place]) 00:00: mouth in [place] 25 mg Tab 00 the Medical morning. Branch hydroCHLORO 2022-0 Yes [id number] 25mg Take 1 [facility] thiazide 25 8-25 tablet by ity of mg tablet 00:00: mouth [place] 00 the Medical morning. Branch SERTraline 2022-0 Yes [id number] 200mg Take 2 [facility] 100 mg 8-25 tablets by ity of tablet 00:00: mouth in [place] 00 the Medical morning. Branch losartan 2022-0 Yes [id number] 100mg Take 1 [facility] 100 mg 8-25 tablet by ity of tablet 00:00: mouth [place] 00 every Medical morning. Branch empaglifloz 2022-0 Yes [id number] 25mg Take 1 [facility] in 8-25 tablet by ity of ([place]) 00:00: mouth in [place] 25 mg Tab 00 the Medical morning. Branch hydroCHLORO 2022-0 Yes [id number] 25mg Take 1 [facility] thiazide 25 8-25 tablet by [facility] mg tablet 00:00[facility]. Branch SERTraline 2022-0 Yes [id number] 200mg Take 2 [facility] 100 mg 8-25 tablets by ity of tablet 00:00: mouth in [place] 00 the Medical morning. Branch losartan 2-0 Yes [id number] 100mg Take 1 [facility] 100 mg 8-25 tablet by ity of tablet 00:00: mouth [place] 00 every Medical morning. Branch empaglifloz 2022-0 Yes [id number] 25mg Take 1 [facility] in 8-25 tablet by ity of ([place]) 00:00: mouth in [place] 25 mg Tab 00 the Medical morning. Branch hydroCHLORO 2022-0 Yes [id number] 25mg Take 1 [facility] thiazide 25 8-25 tablet by ity of mg tablet 00:00: mouth in [facility] 00 the Medical morning. Branch SERTraline 2022-0 Yes [id number] 200mg Take 2 [facility] 100 mg 8-25 tablets by ity of tablet 00:00: mouth in [place] 00 the Medical morning. Branch empaglifloz 2022-0 Yes [id number] 25mg Take 1 [facility] in 8-25 tablet by ity of ([place]) 00:00: mouth in [place] 25 mg Tab 00 the Medical morning. Branch SERTraline 2022-0 Yes [id number] 200mg Take 2 [facility] 100 mg 8-25 tablets by ity of tablet 00:00: mouth in [place] 00 the Medical morning. Branch empaglifloz 2022-0 Yes [id number] 25mg Take 1 [facility] in 8-25 tablet by ity of ([place]) 00:00: mouth in [place] 25 mg Tab 00 the Medical morning. Branch SERTraline 2022-0 2023- No [id number] 200mg Take 2 [facility] 100 mg 11-14 tablets by ity of tablet 00:00: 00:00 mouth in [place] 00 :00 the Medical morning. Branch empaglifloz 2022- No [id number] 25mg Take 1 [facility] in 11-14 tablet by ity of ([place]) 00:00: 00:00 mouth in [place] 25 mg Tab 00 :00 the Medical morning. Branch losartan 2022- No [id number] 100mg Take 1 U nivers 100 mg 11-14 tablet by ity of tablet 00:00: 00:00 mouth [place] 00 :00 every Medical morning. Branch hydroCHLORO 2022- No [id number] 25mg Take 1 [facility] thiazide 25 11-14 tablet by it y of mg tablet 00:00: 00:00 mouth in [place] 00 :00 the Medical morning. Branch hydrOXYzine 2021- No [id number] TAKE 1 [facility] 50 mg 11-14 11-15 TABLET BY ity of tablet 00:00: 00:00 MOUTH 3 [place] 00 :00 TIMES Medical DAILY Branch NEEDED FOR ITCHING OR ANXIETY. *MAY IMPAIR ALERTNESS* * lurasidone 2021- No [id number] 40mg Take 1 [facility] (LATUDA) 40 11-14 10-21 tablet by it y of mg tablet 00:00: 00:00 mouth at [place] 00 :00 bedtime. Medical Branch liraglutide 2021- No [id number] 1.8mg inject 1.8 [facility] (VICTOZA 11-14 10-10 mg under ity of 3-SOILA) 0.6 00:00: 00:00 the skin [place] mg/0.1 mL 00 :00 in the Medical (18 mg/3 morning. Branch mL) injection insulin 2021- No [id number] INJECT 72 [facility] glargine 11-14 09-19 UNITS ity of U-300 conc 00:00: 00:00 UNDER THE [place] (TOUJEO 00 :00 SKIN ONCE Medical SOLOSTAR DAILY IN Branch U-300 THE INSULIN) EVENING 300 unit/mL (ADJUSTING (1.5 mL) DOSE BY 2 InPn UNITS DAILY UNTIL FASTING BLOOD SUGAR LESS THAN 200) DIPHENOXYLA 2021-0 Yes [id number] TAKE 2 [facility] TE-ATROPINE 8-24 TABLETS BY it y of 2.5-0.025 00:00: MOUTH 4 [place] mg tablet 00 TIMES Medical DAILY Branch NEEDED FOR LOOSE STOOLS *MAY IMPAIR ALERTNESS* * DIPHENOXYLA 2021-0 Yes [id number] TAKE 2 [facility] TE-ATROPINE 8-24 TABLETS BY it y of 2.5-0.025 00:00: MOUTH 4 [place] mg tablet 00 TIMES Medical DAILY Branch NEEDED FOR LOOSE STOOLS *MAY IMPAIR ALERTNESS* * DIPHENOXYLA 2021-0 Yes [id number] TAKE 2 [facility] TE-ATROPINE 8-24 TABLETS BY it y of 2.5-0.025 00:00: MOUTH 4 [place] mg tablet 00 TIMES Medical DAILY Branch NEEDED FOR LOOSE STOOLS *MAY IMPAIR ALERTNESS* * DIPHENOXYLA 2021-0 Yes [id number] TAKE 2 [facility] TE-ATROPINE 8-24 TABLETS BY it y of 2.5-0.025 00:00: MOUTH 4 [place] mg tablet 00 TIMES Medical DAILY Branch NEEDED FOR LOOSE STOOLS *MAY IMPAIR ALERTNESS* * DIPHENOXYLA 2021-0 Yes [id number] TAKE 2 [facility] TE-ATROPINE 8-24 TABLETS BY it y of 2.5-0.025 00:00: MOUTH 4 [place] mg tablet 00 TIMES Medical DAILY Branch NEEDED FOR LOOSE STOOLS *MAY IMPAIR ALERTNESS* * DIPHENOXYLA 2021-0 Yes [id number] TAKE 2 [facility] TE-ATROPINE 8-24 TABLETS BY it y of 2.5-0.025 00:00: MOUTH 4 [place] mg tablet 00 TIMES Medical DAILY Branch NEEDED FOR LOOSE STOOLS *MAY IMPAIR ALERTNESS* * DIPHENOXYLA 2021-0 Yes [id number] TAKE 2 [facility] TE-ATROPINE 8-24 TABLETS BY it y of 2.5-0.025 00:00: MOUTH 4 [place] mg tablet 00 TIMES Medical DAILY Branch NEEDED FOR LOOSE STOOLS *MAY IMPAIR ALERTNESS* * DIPHENOXYLA 2021-0 Yes [id number] TAKE 2 [facility] TE-ATROPINE 8-24 TABLETS BY it y of 2.5-0.025 00:00: MOUTH 4 [place] mg tablet 00 TIMES Medical DAILY Branch NEEDED FOR LOOSE STOOLS *MAY IMPAIR ALERTNESS* * DIPHENOXYLA 2022-0 Yes [id number] TAKE 2 [facility] TE-ATROPINE 8-24 TABLETS BY it y of 2.5-0.025 00:00: MOUTH 4 [place] mg tablet 00 TIMES Medical DAILY Branch NEEDED FOR LOOSE STOOLS *MAY IMPAIR ALERTNESS* * DIPHENOXYLA 0 Yes [id number] TAKE 2 [facility] TE-ATROPINE 8-24 TABLETS BY it y of 2.5-0.025 00:00: MOUTH 4 [place] mg tablet 00 TIMES Medical DAILY Branch NEEDED FOR LOOSE STOOLS *MAY IMPAIR ALERTNESS* * DIPHENOXYLA 2021- No [id number] TAKE 2 [facility] TE-ATROPINE 8-24 09-20 TABLETS BY i ty of 2.5-0.025 00:00: 00:00 MOUTH 4 [place] mg tablet 00 :00 TIMES Medical DAILY Branch NEEDED FOR LOOSE STOOLS *MAY IMPAIR ALERTNESS* * LIDOCAINE Yes [id number] APPLY Un reinier VISCOUS 2 % 8-23 TOPICALLY ity of solution 00:00: TO [place] AFFECTED Medical AREA(S) 3 Branch TIMES DAILY AMLODIPINE Yes [id number] 10mg TAKE 1 U nivers 10 mg 8-23 TABLET BY ity of tablet 00:00: MOUTH [place] 00 EVERY Medical MORNING Branch ATORVASTATI Yes [id number] 40mg TAKE 1 [facility] N 40 mg 8-23 TABLET BY ity of tablet 00:00: MOUTH AT [place] [address] BEDTIME. Medical Branch SULFAMETHOX Yes [id number] TAKE 1 [facility] AZOLE-TRIME 8-23 TABLET BY ity of THOPRIM 00:00: MOUTH 2 [place] 800-160 mg 00 TIMES Medical per tablet DAILY WITH Bra nch A GLASS OF WATER UNTIL ALL TAKEN LIDOCAINE Yes [id number] APPLY Un reinier VISCOUS 2 % 8-23 TOPICALLY ity of solution 00:00: TO [place] AFFECTED Medical AREA(S) 3 Branch TIMES DAILY AMLODIPINE Yes [id number] 10mg TAKE 1 U nivers 10 mg 8-23 TABLET BY ity of tablet 00:00: MOUTH [place] 00 EVERY Medical MORNING Branch ATORVASTATI Yes [id number] 40mg TAKE 1 [facility] N 40 mg 8-23 TABLET BY ity of tablet 00:00: MOUTH AT [place] [address] BEDTIME. Medical Branch SULFAMETHOX Yes [id number] TAKE 1 [facility] AZOLE-TRIME 8-23 TABLET BY ity of THOPRIM 00:00: MOUTH 2 [place] 800-160 mg 00 TIMES Medical per tablet DAILY WITH Bra nch A GLASS OF WATER UNTIL ALL TAKEN LIDOCAINE 0 Yes [id number] APPLY Un reinier VISCOUS 2 % 8-23 TOPICALLY ity of solution 00:00: TO [place] AFFECTED Medical AREA(S) 3 Branch TIMES DAILY AMLODIPINE 2021-0 Yes [id number] 10mg TAKE 1 U nivers 10 mg 8-23 TABLET BY ity of tablet 00:00: MOUTH EVERY Medical MORNING Branch ATORVASTATI Yes [id number] 40mg TAKE 1 [facility] N 40 mg 8-23 TABLET BY ity of tablet 00:00: MOUTH AT [place] BEDTIME. Medical Branch SULFAMETHOX 0 Yes [id number] TAKE 1 [facility] AZOLE-TRIME 8-23 TABLET BY ity of THOPRIM 00:00: MOUTH 2 [place] 800-160 mg 00 TIMES Medical per tablet DAILY WITH Bra nch A GLASS OF WATER UNTIL ALL TAKEN LIDOCAINE 0 Yes [id number] APPLY Un reinier VISCOUS 2 % 8-23 TOPICALLY ity of solution 00:00: TO [place] AFFECTED Medical AREA(S) 3 Branch TIMES DAILY AMLODIPINE 0 Yes [id number] 10mg TAKE 1 U nivers 10 mg 8-23 TABLET BY ity of tablet 00:00: MOUTH EVERY Medical MORNING Branch ATORVASTATI Yes [id number] 40mg TAKE 1 [facility] N 40 mg 8-23 TABLET BY ity of tablet 00:00: MOUTH AT [place] BEDTIME. Medical Branch SULFAMETHOX 2021-0 Yes [id number] TAKE 1 [facility] AZOLE-TRIME 8-23 TABLET BY ity of THOPRIM 00:00: MOUTH 2 [place] 800-160 mg 00 TIMES Medical per tablet DAILY WITH Bra nch A GLASS OF WATER UNTIL ALL TAKEN LIDOCAINE 2021-0 Yes [id number] APPLY Un reinier VISCOUS 2 % 8-23 TOPICALLY ity of solution 00:00: TO [place] AFFECTED Medical AREA(S) 3 Branch TIMES DAILY AMLODIPINE 2021-0 Yes [id number] 10mg TAKE 1 U nivers 10 mg 8-23 TABLET BY ity of tablet 00:00: MOUTH EVERY Medical MORNING Branch ATORVASTATI Yes [id number] 40mg TAKE 1 [facility] N 40 mg 8-23 TABLET BY ity of tablet 00:00: MOUTH AT [place] BEDTIME. Medical Branch SULFAMETHOX 2021-0 Yes [id number] TAKE 1 [facility] AZOLE-TRIME 8-23 TABLET BY ity of THOPRIM 00:00: MOUTH 2 [place] 800-160 mg 00 TIMES Medical per tablet DAILY WITH Bra nch A GLASS OF WATER UNTIL ALL TAKEN LIDOCAINE 2021-0 Yes [id number] APPLY Un rein[facility] VISCOUS 2 % 8-23 TOPICALLY ity of solution 00:00: TO AFFECTED Medical AREA(S) 3 Branch TIMES DAILY AMLODIPINE Yes [id number] 10mg TAKE 1 U nivers 10 mg 8-23 TABLET BY ity of tablet 00:00: MOUTH [place] EVERY Medical MORNING Branch ATORVASTATI Yes [id number] 40mg TAKE 1 [facility] N 40 mg 8-23 TABLET BY ity of tablet 00:00: MOUTH AT [place] [address] BEDTIME. Medical Branch SULFAMETHOX 2021-0 Yes [id number] TAKE 1 [facility] AZOLE-TRIME 8-23 TABLET BY ity of THOPRIM 00:00: MOUTH 2 [place] 800-160 mg 00 TIMES Medical per tablet DAILY WITH [facility] A GLASS OF WATER UNTIL ALL TAKEN LIDOCAINE 2021-0 Yes [id number] APPLY [facility] VISCOUS 2 % 8-23 TOPICALLY [facility] solution 00:00: TO AFFECTED Medical AREA(S) 3 Branch TIMES DAILY AMLODIPINE 0 Yes [id number] 10mg TAKE 1 [facility] 10 mg 8-23 TABLET BY [facility] tablet 00:00: MOUTH [place] EVERY Medical MORNING Branch ATORVASTATI 2021-0 Yes [id number] 40mg TAKE 1 [facility] 40 mg 8-23 TABLET BY [facility] tablet 00:00: MOUTH AT [place] [address] BEDTIME. Medical Branch SULFAMETHOX 2021-0 Yes [id number] TAKE 1 [facility] AZOLE-TRIME 8-23 TABLET BY ity of THOPRIM 00:00: MOUTH 2 [place] 800-160 mg 00 TIMES Medical per tablet DAILY WITH Bra [facility] A GLASS OF WATER UNTIL ALL TAKEN LIDOCAINE 2021-0 Yes [id number] APPLY [facility] VISCOUS 2 % 8-23 TOPICALLY [facility] of solution 00:00: TO AFFECTED Medical AREA(S) 3 Branch TIMES DAILY AMLODIPINE 0 Yes [id number] 10mg TAKE 1 [facility] 10 mg 8-23 TABLET BY [facility] tablet 00:00: MOUTH [place] 00 EVERY Medical MORNING Branch ATORVASTATI Yes [id number] 40mg TAKE 1 [facility] N 40 mg 8-23 TABLET BY [facility] of tablet 00:00: MOUTH AT [place] 00 BEDTIME. Medical Branch SULFAMETHOX 2021-0 Yes [id number] TAKE 1 [facility] AZOLE-TRIME 8-23 TABLET BY ity of THOPRIM 00:00: MOUTH 2 [place] 800-160 mg 00 TIMES Medical per tablet DAILY WITH [facility] n[facility] A GLASS OF WATER UNTIL ALL TAKEN LIDOCAINE 0 Yes [id number] APPLY [facility] VISCOUS 2 % 8-23 TOPICALLY [facility] solution 00:00: TO [place] AFFECTED Medical AREA(S) 3 Branch TIMES DAILY AMLODIPINE Yes [id number] 10mg TAKE 1 [facility] 10 mg 8-23 TABLET BY [facility] of tablet 00:00: MOUTH [place] EVERY Medical MORNING Branch ATORVASTATI Yes [id number] 40mg TAKE 1 [facility] N 40 mg 8-23 TABLET BY [facility] of tablet 00:00: MOUTH AT [place] [address] BEDTIME. Medical Branch SULFAMETHOX 2021-0 Yes [id number] TAKE 1 [facility] AZOLE-TRIME 8-23 TABLET BY ity of THOPRIM 00:00: MOUTH 2 [place] 800-160 mg 00 TIMES Medical per tablet DAILY WITH [facility] n[facility] A GLASS OF WATER UNTIL ALL TAKEN LIDOCAINE 2021-0 Yes [id number] APPLY [facility] VISCOUS 2 % 8-23 TOPICALLY it[facility] of solution 00:00: TO [place] AFFECTED Medical AREA(S) 3 Branch TIMES DAILY AMLODIPINE 2021-0 Yes [id number] 10mg TAKE 1 [facility] 10 mg 8-23 TABLET BY [facility] of tablet 00:00: MOUTH [place] EVERY Medical MORNING Branch ATORVASTATI 0 Yes [id number] 40mg TAKE 1 [facility] N 40 mg 8-23 TABLET BY [facility] of tablet 00:00: MOUTH AT [place] [address] BEDTIME. Medical Branch SULFAMETHOX 2021-0 Yes [id number] TAKE 1 [facility] AZOLE-TRIME 8-23 TABLET BY it[facility] of THOPRIM 00:00: MOUTH 2 [place] 800-160 mg 00 TIMES Medical per tablet DAILY WITH [facility] n[facility] A GLASS OF WATER UNTIL ALL TAKEN LIDOCAINE Yes [id number] APPLY [facility] VISCOUS 2 % 8-23 TOPICALLY it[facility] of solution 00:00: TO AFFECTED Medical AREA(S) 3 Branch TIMES DAILY AMLODIPINE 0 Yes [id number] 10mg TAKE 1 [facility] 10 mg 8-23 TABLET BY [facility] tablet 00:00: MOUTH 00 EVERY Medical MORNING Branch ATORVASTATI 0 Yes [id number] 40mg TAKE 1 [facility] N 40 mg 8-23 TABLET BY [facility] of tablet 00:00: MOUTH AT [place] BEDTIME. Medical Branch SULFAMETHOX 0 Yes [id number] TAKE 1 [facility] AZOLE-TRIME 8-23 TABLET BY ity of THOPRIM 00:00: MOUTH 2 [place] 800-160 mg 00 TIMES Medical per tablet DAILY WITH [facility] A GLASS OF WATER UNTIL ALL TAKEN LIDOCAINE Yes [id number] APPLY [facility] VISCOUS 2 % 8-23 TOPICALLY it[facility] of solution 00:00: TO [place] AFFECTED Medical AREA(S) 3 Branch TIMES DAILY AMLODIPINE 0 Yes [id number] 10mg TAKE 1 [facility] 10 mg 8-23 TABLET BY [facility] of tablet 00:00: MOUTH EVERY Medical MORNING Branch ATORVASTATI 0 Yes [id number] 40mg TAKE 1 [facility] N 40 mg 8-23 TABLET BY [facility] of tablet 00:00: MOUTH AT [place] BEDTIME. Medical Branch SULFAMETHOX 0 Yes [id number] TAKE 1 [facility] AZOLE-TRIME 8-23 TABLET BY ity of THOPRIM 00:00: MOUTH 2 [place] 800-160 mg 00 TIMES Medical per tablet DAILY WITH [facility] p[facility] A GLASS OF WATER UNTIL ALL TAKEN LIDOCAINE 0 Yes [id number] APPLY [facility] VISCOUS 2 % 8-23 TOPICALLY ity of solution 00:00: TO AFFECTED Medical AREA(S) 3 Branch TIMES DAILY AMLODIPINE 2021-0 Yes [id number] 10mg TAKE 1 [facility] 10 mg 8-23 TABLET BY [facility] tablet 00:00: MOUTH EVERY Medical MORNING Branch ATORVASTATI 0 Yes [id number] 40mg TAKE 1 [facility] N 40 mg 8-23 TABLET BY [facility] of tablet 00:00: MOUTH AT [place] [address] BEDTIME. Medical Branch LIDOCAINE 2021-0 Yes [id number] APPLY [facility] VISCOUS 2 % 8-23 TOPICALLY it[facility] of solution 00:00: TO AFFECTED Medical AREA(S) 3 Branch TIMES DAILY AMLODIPINE 0 Yes [id number] 10mg TAKE 1 [facility] 10 mg 8-23 TABLET BY [facility] of tablet 00:00: MOUTH EVERY Medical MORNING Branch ATORVASTATI 0 Yes [id number] 40mg TAKE 1 [facility] N 40 mg 8-23 TABLET BY [facility] of tablet 00:00: MOUTH AT [place] BEDTIME. Medical Branch LIDOCAINE 2021-0 Yes [id number] APPLY [facility] VISCOUS 2 % 8-23 TOPICALLY ity of solution 00:00: TO AFFECTED Medical AREA(S) 3 Branch TIMES DAILY AMLODIPINE 0 Yes [id number] 10mg TAKE 1 [facility] 10 mg 8-23 TABLET BY [facility] of tablet 00:00: MOUTH EVERY Medical MORNING Branch ATORVASTATI 0 Yes [id number] 40mg TAKE 1 [facility] N 40 mg 8-23 TABLET BY [facility] of tablet 00:00: MOUTH AT [place] BEDTIME. Medical Branch LIDOCAINE 0 Yes [id number] APPLY [facility] VISCOUS 2 % 8-23 TOPICALLY it[facility] of solution 00:00: TO [place] AFFECTED Medical AREA(S) 3 Branch TIMES DAILY AMLODIPINE 0 Yes [id number] 10mg TAKE 1 [facility] 10 mg 8-23 TABLET BY [facility] of tablet 00:00: MOUTH EVERY Medical MORNING Branch ATORVASTATI 0 Yes [id number] 40mg TAKE 1 [facility] N 40 mg 8-23 TABLET BY [facility] of tablet 00:00: MOUTH AT [place] BEDTIME. Medical Branch LIDOCAINE 2021-0 Yes [id number] APPLY [facility] VISCOUS 2 % 8-23 TOPICALLY ity of solution 00:00: TO AFFECTED Medical AREA(S) 3 Branch TIMES DAILY AMLODIPINE 2021-0 Yes [id number] 10mg TAKE 1 [facility] 10 mg 8-23 TABLET BY [facility] of tablet 00:00: MOUTH EVERY Medical MORNING Branch ATORVASTATI 0 Yes [id number] 40mg TAKE 1 [facility] N 40 mg 8-23 TABLET BY [facility] of tablet 00:00: MOUTH AT [place] BEDTIME. Medical Branch LIDOCAINE 2021-0 Yes [id number] APPLY [facility] VISCOUS 2 % 8-23 TOPICALLY it[facility] of solution 00:00: TO AFFECTED Medical AREA(S) 3 Branch TIMES DAILY AMLODIPINE 0 Yes [id number] 10mg TAKE 1 [facility] 10 mg 8-23 TABLET BY [facility] of tablet 00:00: MOUTH EVERY Medical MORNING Branch ATORVASTATI 0 Yes [id number] 40mg TAKE 1 [facility] N 40 mg 8-23 TABLET BY [facility] of tablet 00:00: MOUTH AT [place] BEDTIME. Medical Branch LIDOCAINE 2021-0 Yes [id number] APPLY [facility] VISCOUS 2 % 8-23 TOPICALLY it[facility] of solution 00:00: TO AFFECTED Medical AREA(S) 3 Branch TIMES DAILY AMLODIPINE 0 Yes [id number] 10mg TAKE 1 [facility] 10 mg 8-23 TABLET BY [facility] of tablet 00:00: MOUTH EVERY Medical MORNING Branch ATORVASTATI 0 Yes [id number] 40mg TAKE 1 [facility] N 40 mg 8-23 TABLET BY [facility] of tablet 00:00: MOUTH AT [place] BEDTIME. Medical Branch LIDOCAINE 0 Yes [id number] APPLY [facility] VISCOUS 2 % 8-23 TOPICALLY it[facility] of solution 00:00: TO [place] AFFECTED Medical AREA(S) 3 Branch TIMES DAILY AMLODIPINE 0 Yes [id number] 10mg TAKE 1 [facility] 10 mg 8-23 TABLET BY [facility] of tablet 00:00: MOUTH EVERY Medical MORNING Branch ATORVASTATI 0 Yes [id number] 40mg TAKE 1 [facility] N 40 mg 8-23 TABLET BY [facility] of tablet 00:00: MOUTH AT [place] BEDTIME. Medical Branch LIDOCAINE 2021-0 Yes [id number] APPLY [facility] VISCOUS 2 % 8-23 TOPICALLY it[facility] of solution 00:00: TO AFFECTED Medical AREA(S) 3 Branch TIMES DAILY AMLODIPINE 2021-0 Yes [id number] 10mg TAKE 1 [facility] 10 mg 8-23 TABLET BY [facility] of tablet 00:00: MOUTH EVERY Medical MORNING Branch ATORVASTATI 0 Yes [id number] 40mg TAKE 1 [facility] N 40 mg 8-23 TABLET BY [facility] of tablet 00:00: MOUTH AT [place] BEDTIME. Medical Branch LIDOCAINE 2021-0 Yes [id number] APPLY [facility] VISCOUS 2 % 8-23 TOPICALLY it[facility] of solution 00:00: TO AFFECTED Medical AREA(S) 3 Branch TIMES DAILY AMLODIPINE 0 Yes [id number] 10mg TAKE 1 [facility] 10 mg 8-23 TABLET BY [facility] of tablet 00:00: MOUTH EVERY Medical MORNING Branch ATORVASTATI 0 Yes [id number] 40mg TAKE 1 [facility] N 40 mg 8-23 TABLET BY [facility] of tablet 00:00: MOUTH AT [place] BEDTIME. Medical Branch LIDOCAINE 2021-0 Yes [id number] APPLY [facility] VISCOUS 2 % 8-23 TOPICALLY ity of solution 00:00: TO AFFECTED Medical AREA(S) 3 Branch TIMES DAILY AMLODIPINE 0 Yes [id number] 10mg TAKE 1 [facility] 10 mg 8-23 TABLET BY [facility] of tablet 00:00: MOUTH EVERY Medical MORNING Branch ATORVASTATI 0 Yes [id number] 40mg TAKE 1 [facility] N 40 mg 8-23 TABLET BY [facility] of tablet 00:00: MOUTH AT [place] BEDTIME. Medical Branch LIDOCAINE 0 Yes [id number] APPLY [facility] VISCOUS 2 % 8-23 TOPICALLY ity of solution 00:00: TO [place] AFFECTED Medical AREA(S) 3 Branch TIMES DAILY AMLODIPINE 0 Yes [id number] 10mg TAKE 1 [facility] 10 mg 8-23 TABLET BY [facility] of tablet 00:00: MOUTH EVERY Medical MORNING Branch ATORVASTATI 0 Yes [id number] 40mg TAKE 1 [facility] N 40 mg 8-23 TABLET BY [facility] of tablet 00:00: MOUTH AT [place] BEDTIME. Medical Branch LIDOCAINE 2021-0 Yes [id number] APPLY [facility] VISCOUS 2 % 8-23 TOPICALLY ity of solution 00:00: TO AFFECTED Medical AREA(S) 3 Branch TIMES DAILY AMLODIPINE 2021-0 Yes [id number] 10mg TAKE 1 [facility] 10 mg 8-23 TABLET BY [facility] of tablet 00:00: MOUTH EVERY Medical MORNING Branch ATORVASTATI 0 Yes [id number] 40mg TAKE 1 [facility] N 40 mg 8-23 TABLET BY [facility] of tablet 00:00: MOUTH AT [place] BEDTIME. Medical Branch LIDOCAINE 2021-0 Yes [id number] APPLY [facility] VISCOUS 2 % 8-23 TOPICALLY it[facility] of solution 00:00: TO AFFECTED Medical AREA(S) 3 Branch TIMES DAILY AMLODIPINE 0 Yes [id number] 10mg TAKE 1 [facility] 10 mg 8-23 TABLET BY [facility] of tablet 00:00: MOUTH EVERY Medical MORNING Branch ATORVASTATI 0 Yes [id number] 40mg TAKE 1 [facility] N 40 mg 8-23 TABLET BY [facility] of tablet 00:00: MOUTH AT [place] BEDTIME. Medical Branch LIDOCAINE 2021-0 Yes [id number] APPLY [facility] VISCOUS 2 % 8-23 TOPICALLY ity of solution 00:00: TO AFFECTED Medical AREA(S) 3 Branch TIMES DAILY AMLODIPINE 0 Yes [id number] 10mg TAKE 1 [facility] 10 mg 8-23 TABLET BY [facility] of tablet 00:00: MOUTH EVERY Medical MORNING Branch ATORVASTATI 0 Yes [id number] 40mg TAKE 1 [facility] N 40 mg 8-23 TABLET BY [facility] of tablet 00:00: MOUTH AT [place] BEDTIME. Medical Branch LIDOCAINE 0 Yes [id number] APPLY [facility] VISCOUS 2 % 8-23 TOPICALLY ity of solution 00:00: TO [place] AFFECTED Medical AREA(S) 3 Branch TIMES DAILY AMLODIPINE 0 Yes [id number] 10mg TAKE 1 [facility] 10 mg 8-23 TABLET BY [facility] of tablet 00:00: MOUTH EVERY Medical MORNING Branch ATORVASTATI 0 Yes [id number] 40mg TAKE 1 [facility] N 40 mg 8-23 TABLET BY [facility] of tablet 00:00: MOUTH AT [place] BEDTIME. Medical Branch LIDOCAINE 2021-0 Yes [id number] APPLY [facility] VISCOUS 2 % 8-23 TOPICALLY it[facility] of solution 00:00: TO AFFECTED Medical AREA(S) 3 Branch TIMES DAILY AMLODIPINE 2021-0 Yes [id number] 10mg TAKE 1 [facility] 10 mg 8-23 TABLET BY [facility] of tablet 00:00: MOUTH EVERY Medical MORNING Branch ATORVASTATI 0 Yes [id number] 40mg TAKE 1 [facility] N 40 mg 8-23 TABLET BY [facility] of tablet 00:00: MOUTH AT [place] BEDTIME. Medical Branch LIDOCAINE 2021-0 Yes [id number] APPLY [facility] VISCOUS 2 % 8-23 TOPICALLY it[facility] of solution 00:00: TO AFFECTED Medical AREA(S) 3 Branch TIMES DAILY AMLODIPINE 0 Yes [id number] 10mg TAKE 1 [facility] 10 mg 8-23 TABLET BY [facility] of tablet 00:00: MOUTH EVERY Medical MORNING Branch ATORVASTATI 0 Yes [id number] 40mg TAKE 1 [facility] N 40 mg 8-23 TABLET BY [facility] of tablet 00:00: MOUTH AT [place] BEDTIME. Medical Branch LIDOCAINE 2021-0 Yes [id number] APPLY [facility] VISCOUS 2 % 8-23 TOPICALLY ity of solution 00:00: TO AFFECTED Medical AREA(S) 3 Branch TIMES DAILY AMLODIPINE 0 Yes [id number] 10mg TAKE 1 [facility] 10 mg 8-23 TABLET BY [facility] of tablet 00:00: MOUTH EVERY Medical MORNING Branch ATORVASTATI 0 Yes [id number] 40mg TAKE 1 [facility] N 40 mg 8-23 TABLET BY [facility] of tablet 00:00: MOUTH AT [place] BEDTIME. Medical Branch LIDOCAINE 0 Yes [id number] APPLY [facility] VISCOUS 2 % 8-23 TOPICALLY ity of solution 00:00: TO [place] AFFECTED Medical AREA(S) 3 Branch TIMES DAILY AMLODIPINE 0 Yes [id number] 10mg TAKE 1 [facility] 10 mg 8-23 TABLET BY [facility] of tablet 00:00: MOUTH EVERY Medical MORNING Branch ATORVASTATI 0 Yes [id number] 40mg TAKE 1 [facility] N 40 mg 8-23 TABLET BY [facility] of tablet 00:00: MOUTH AT [place] BEDTIME. Medical Branch LIDOCAINE 2021-0 Yes [id number] APPLY [facility] VISCOUS 2 % 8-23 TOPICALLY ity of solution 00:00: TO AFFECTED Medical AREA(S) 3 Branch TIMES DAILY AMLODIPINE 2021-0 Yes [id number] 10mg TAKE 1 [facility] 10 mg 8-23 TABLET BY [facility] of tablet 00:00: MOUTH EVERY Medical MORNING Branch ATORVASTATI 0 Yes [id number] 40mg TAKE 1 [facility] N 40 mg 8-23 TABLET BY [facility] of tablet 00:00: MOUTH AT [place] BEDTIME. Medical Branch LIDOCAINE 2021-0 Yes [id number] APPLY [facility] VISCOUS 2 % 8-23 TOPICALLY [facility] of solution 00:00: TO AFFECTED Medical AREA(S) 3 Branch TIMES DAILY AMLODIPINE 0 Yes [id number] 10mg TAKE 1 [facility] 10 mg 8-23 TABLET BY [facility] of tablet 00:00: MOUTH EVERY Medical MORNING Branch ATORVASTATI 0 Yes [id number] 40mg TAKE 1 [facility] N 40 mg 8-23 TABLET BY [facility] of tablet 00:00: MOUTH AT [place] BEDTIME. Medical Branch LIDOCAINE 2021-0 Yes [id number] APPLY [facility] VISCOUS 2 % 8-23 TOPICALLY ity of solution 00:00: TO AFFECTED Medical AREA(S) 3 Branch TIMES DAILY AMLODIPINE 0 Yes [id number] 10mg TAKE 1 [facility] 10 mg 8-23 TABLET BY [facility] of tablet 00:00: MOUTH EVERY Medical MORNING Branch ATORVASTATI 0 Yes [id number] 40mg TAKE 1 [facility] N 40 mg 8-23 TABLET BY [facility] of tablet 00:00: MOUTH AT [place] BEDTIME. Medical Branch LIDOCAINE 0 Yes [id number] APPLY [facility] VISCOUS 2 % 8-23 TOPICALLY it[facility] of solution 00:00: TO [place] AFFECTED Medical AREA(S) 3 Branch TIMES DAILY AMLODIPINE 0 Yes [id number] 10mg TAKE 1 [facility] 10 mg 8-23 TABLET BY [facility] of tablet 00:00: MOUTH EVERY Medical MORNING Branch ATORVASTATI 0 Yes [id number] 40mg TAKE 1 [facility] N 40 mg 8-23 TABLET BY [facility] of tablet 00:00: MOUTH AT [place] BEDTIME. Medical Branch LIDOCAINE 2021-0 Yes [id number] APPLY [facility] VISCOUS 2 % 8-23 TOPICALLY it[facility] of solution 00:00: TO AFFECTED Medical AREA(S) 3 Branch TIMES DAILY AMLODIPINE 2021-0 Yes [id number] 10mg TAKE 1 [facility] 10 mg 8-23 TABLET BY [facility] of tablet 00:00: MOUTH EVERY Medical MORNING Branch ATORVASTATI 0 Yes [id number] 40mg TAKE 1 [facility] 40 mg 8-23 TABLET BY [facility] of tablet 00:00: MOUTH AT [place] BEDTIME. Medical Branch LIDOCAINE 2021-0 Yes [id number] APPLY [facility] VISCOUS 2 % 8-23 TOPICALLY [facility] of solution 00:00: TO [place] 00 AFFECTED Medical AREA(S) 3 Branch TIMES DAILY AMLODIPINE 2021-0 Yes [id number] 10mg TAKE 1 [facility] 10 mg 8-23 TABLET BY [facility] of tablet 00:00: MOUTH [place] EVERY Medical MORNING Branch ATORVASTATI 2021-0 Yes [id number] 40mg TAKE 1 [facility] N 40 mg 8-23 TABLET BY [facility] of tablet 00:00: MOUTH AT [place] [address] BEDTIME. Medical Branch LIDOCAINE 2021-0 Yes [id number] APPLY [facility] VISCOUS 2 % 8-23 TOPICALLY ity of solution 00:00: TO [place] AFFECTED Medical AREA(S) 3 Branch TIMES DAILY ATORVASTATI 0 Yes [id number] 40mg TAKE 1 [facility] N 40 mg 8-23 TABLET BY [facility] of tablet 00:00: MOUTH AT [place] [address] BEDTIME. Medical Branch LIDOCAINE 2021-0 Yes [id number] APPLY [facility] VISCOUS 2 % 8-23 TOPICALLY ity of solution 00:00: TO [place] AFFECTED Medical AREA(S) 3 Branch TIMES DAILY ATORVASTATI 2021-0 Yes [id number] 40mg TAKE 1 [facility] N 40 mg 8-23 TABLET BY [facility] of tablet 00:00: MOUTH AT [place] [address] BEDTIME. Medical Branch LIDOCAINE 2021-0 Yes [id number] APPLY [facility] VISCOUS 2 % 8-23 TOPICALLY ity of solution 00:00: TO [place] 00 AFFECTED Medical AREA(S) 3 Branch TIMES DAILY ATORVASTATI 2021-0 Yes [id number] 40mg TAKE 1 [facility] N 40 mg 8-23 TABLET BY [facility] of tablet 00:00: MOUTH AT [place] [address] BEDTIME. Medical Branch LIDOCAINE 2021-0 Yes [id number] APPLY [facility] VISCOUS 2 % 8-23 TOPICALLY ity of solution 00:00: TO [place] 00 AFFECTED Medical AREA(S) 3 Branch TIMES DAILY ATORVASTATI 2021-0 Yes [id number] 40mg TAKE 1 [facility] N 40 mg 8-23 TABLET BY [facility] of tablet 00:00: MOUTH AT [place] [address] BEDTIME. Medical Branch LIDOCAINE 2021-0 Yes [id number] APPLY [facility] VISCOUS 2 % 8-23 TOPICALLY [facility] of solution 00:00: TO [place] 00 AFFECTED Medical AREA(S) 3 Branch TIMES DAILY ATORVASTATI 2021-0 Yes [id number] 40mg TAKE 1 [facility] N 40 mg 8-23 TABLET BY [facility] of tablet 00:00: MOUTH AT [place] [address] BEDTIME. Medical Branch LIDOCAINE 2021-0 Yes [id number] APPLY [facility] VISCOUS 2 % 8-23 TOPICALLY it[facility] of solution 00:00: TO [place] 00 AFFECTED Medical AREA(S) 3 Branch TIMES DAILY ATORVASTATI 2021-0 Yes [id number] 40mg TAKE 1 [facility] N 40 mg 8-23 TABLET BY [facility] of tablet 00:00: MOUTH AT [place] [address] BEDTIME. Medical Branch LIDOCAINE 2021-0 Yes [id number] APPLY [facility] VISCOUS 2 % 8-23 TOPICALLY [facility]y of solution 00:00: TO [place] AFFECTED Medical AREA(S) 3 Branch TIMES DAILY ATORVASTATI 2021-0 Yes [id number] 40mg TAKE 1 [facility] 40 mg 8-23 TABLET BY [facility] of tablet 00:00: MOUTH AT [place] [address] BEDTIME. Medical Branch LIDOCAINE 2021-0 Yes [id number] APPLY [facility] VISCOUS 2 % 8-23 TOPICALLY it[facility] of solution 00:00: TO [place] AFFECTED Medical AREA(S) 3 Branch TIMES DAILY LIDOCAINE 2021-0 Yes [id number] APPLY [facility] VISCOUS 2 % 8-23 TOPICALLY it[facility] of solution 00:00: TO [place] 00 AFFECTED Medical AREA(S) 3 Branch TIMES DAILY LIDOCAINE 2021-0 Yes [id number] APPLY [facility] VISCOUS 2 % 8-23 TOPICALLY [facility] of solution 00:00: TO [place] AFFECTED Medical AREA(S) 3 Branch TIMES DAILY LIDOCAINE 2021-0 Yes [id number] APPLY [facility] VISCOUS 2 % 8-23 TOPICALLY [facility] of solution 00:00: TO [place] 00 AFFECTED Medical AREA(S) 3 Branch TIMES DAILY LIDOCAINE 2021-0 Yes [id number] APPLY [facility] VISCOUS 2 % 8-23 TOPICALLY [facility] of solution 00:00: TO [place] 00 AFFECTED Medical AREA(S) 3 Branch TIMES DAILY LIDOCAINE 2021-0 Yes [id number] APPLY [facility] VISCOUS 2 % 8-23 TOPICALLY it[facility] of solution 00:00: TO [place] 00 AFFECTED Medical AREA(S) 3 Branch TIMES DAILY LIDOCAINE 2021-0 Yes [id number] APPLY [facility] VISCOUS 2 % 8-23 TOPICALLY [facility] of solution 00:00: TO [place] AFFECTED Medical AREA(S) 3 Branch TIMES DAILY LIDOCAINE 2022-0 Yes [id number] APPLY [facility] VISCOUS 2 % 8-23 TOPICALLY ity of solution 00:00: TO [place] AFFECTED Medical AREA(S) 3 Branch TIMES DAILY LIDOCAINE 2022-0 Yes [id number] APPLY [facility] VISCOUS 2 % 8-23 TOPICALLY it[facility] of solution 00:00: TO [place] AFFECTED Medical AREA(S) 3 Branch TIMES DAILY LIDOCAINE 2022-0 Yes [id number] APPLY [facility] VISCOUS 2 % 8-23 TOPICALLY [facility] of solution 00:00: TO [place] AFFECTED Medical AREA(S) 3 Branch TIMES DAILY LIDOCAINE 2022-0 Yes [id number] APPLY [facility] VISCOUS 2 % 8-23 TOPICALLY it[facility] of solution 00:00: TO [place] AFFECTED Medical AREA(S) 3 Branch TIMES DAILY LIDOCAINE 2022-0 Yes [id number] APPLY [facility] VISCOUS 2 % 8-23 TOPICALLY ity of solution 00:00: TO [place] AFFECTED Medical AREA(S) 3 Branch TIMES DAILY LIDOCAINE 2022-0 Yes [id number] APPLY [facility] VISCOUS 2 % 8-23 TOPICALLY it[facility] of solution 00:00: TO [place] AFFECTED Medical AREA(S) 3 Branch TIMES DAILY LIDOCAINE 2022-0 Yes [id number] APPLY [facility] VISCOUS 2 % 8-23 TOPICALLY it[facility] of solution 00:00: TO [place] AFFECTED Medical AREA(S) 3 Branch TIMES DAILY LIDOCAINE 2022-0 Yes [id number] APPLY [facility] VISCOUS 2 % 8-23 TOPICALLY ity of solution 00:00: TO [place] AFFECTED Medical AREA(S) 3 Branch TIMES DAILY LIDOCAINE 2022-0 Yes [id number] APPLY [facility] VISCOUS 2 % 8-23 TOPICALLY ity of solution 00:00: TO [place] AFFECTED Medical AREA(S) 3 Branch TIMES DAILY LIDOCAINE 2022-0 Yes [id number] APPLY [facility] VISCOUS 2 % 8-23 TOPICALLY ity of solution 00:00: TO [place] AFFECTED Medical AREA(S) 3 Branch TIMES DAILY LIDOCAINE 2022-0 Yes [id number] APPLY [facility] VISCOUS 2 % 8-23 TOPICALLY ity of solution 00:00: TO [place] AFFECTED Medical AREA(S) 3 Branch TIMES DAILY LIDOCAINE 2022-0 Yes [id number] APPLY [facility] VISCOUS 2 % 8-23 TOPICALLY ity of solution 00:00: TO [place] AFFECTED Medical AREA(S) 3 Branch TIMES DAILY LIDOCAINE 2022-0 Yes [id number] APPLY [facility] VISCOUS 2 % 8-23 TOPICALLY ity of solution 00:00: TO [place] AFFECTED Medical AREA(S) 3 Branch TIMES DAILY LIDOCAINE 2022-0 Yes [id number] APPLY [facility] VISCOUS 2 % 8-23 TOPICALLY ity of solution 00:00: TO [place] AFFECTED Medical AREA(S) 3 Branch TIMES DAILY LIDOCAINE 2022-0 Yes [id number] APPLY [facility] VISCOUS 2 % 8-23 TOPICALLY ity of solution 00:00: TO [place] AFFECTED Medical AREA(S) 3 Branch TIMES DAILY LIDOCAINE 2022-0 Yes [id number] APPLY [facility] VISCOUS 2 % 8-23 TOPICALLY ity of solution 00:00: TO [place] AFFECTED Medical AREA(S) 3 Branch TIMES DAILY LIDOCAINE 2022-0 Yes [id number] APPLY [facility] VISCOUS 2 % 8-23 TOPICALLY ity of solution 00:00: TO [place] AFFECTED Medical AREA(S) 3 Branch TIMES DAILY LIDOCAINE 2022-0 Yes [id number] APPLY [facility] VISCOUS 2 % 8-23 TOPICALLY ity of solution 00:00: TO [place] AFFECTED Medical AREA(S) 3 Branch TIMES DAILY LIDOCAINE 2022-0 Yes [id number] APPLY [facility] VISCOUS 2 % 8-23 TOPICALLY ity of solution 00:00: TO [place] AFFECTED Medical AREA(S) 3 Branch TIMES DAILY LIDOCAINE 2022-0 Yes [id number] APPLY [facility] VISCOUS 2 % 8-23 TOPICALLY ity of solution 00:00: TO [place] AFFECTED Medical AREA(S) 3 Branch TIMES DAILY LIDOCAINE 2022-0 Yes [id number] APPLY [facility] VISCOUS 2 % 8-23 TOPICALLY ity of solution 00:00: TO [place] AFFECTED Medical AREA(S) 3 Branch TIMES DAILY LIDOCAINE 2022-0 Yes [id number] APPLY [facility] VISCOUS 2 % 8-23 TOPICALLY ity of solution 00:00: TO [place] AFFECTED Medical AREA(S) 3 Branch TIMES DAILY LIDOCAINE 2022-0 Yes [id number] APPLY [facility] VISCOUS 2 % 8-23 TOPICALLY ity of solution 00:00: TO [place] AFFECTED Medical AREA(S) 3 Branch TIMES DAILY LIDOCAINE 2022-0 Yes [id number] APPLY [facility] VISCOUS 2 % 8-23 TOPICALLY ity of solution 00:00: TO [place] AFFECTED Medical AREA(S) 3 Branch TIMES DAILY LIDOCAINE 2022-0 Yes [id number] APPLY [facility] VISCOUS 2 % 8-23 TOPICALLY ity of solution 00:00: TO [place] AFFECTED Medical AREA(S) 3 Branch TIMES DAILY LIDOCAINE 2022-0 Yes [id number] APPLY [facility] VISCOUS 2 % 8-23 TOPICALLY ity of solution 00:00: TO [place] AFFECTED Medical AREA(S) 3 Branch TIMES DAILY LIDOCAINE 2022-0 Yes [id number] APPLY [facility] VISCOUS 2 % 8-23 TOPICALLY ity of solution 00:00: TO [place] AFFECTED Medical AREA(S) 3 Branch TIMES DAILY LIDOCAINE 2022-0 Yes [id number] APPLY [facility] VISCOUS 2 % 8-23 TOPICALLY ity of solution 00:00: TO [place] AFFECTED Medical AREA(S) 3 Branch TIMES DAILY LIDOCAINE 2022-0 Yes [id number] APPLY [facility] VISCOUS 2 % 8-23 TOPICALLY ity of solution 00:00: TO [place] AFFECTED Medical AREA(S) 3 Branch TIMES DAILY LIDOCAINE 2022-0 Yes [id number] APPLY [facility] VISCOUS 2 % 8-23 TOPICALLY ity of solution 00:00: TO [place] AFFECTED Medical AREA(S) 3 Branch TIMES DAILY LIDOCAINE 2022-0 Yes [id number] APPLY [facility] VISCOUS 2 % 8-23 TOPICALLY ity of solution 00:00: TO [place] AFFECTED Medical AREA(S) 3 Branch TIMES DAILY LIDOCAINE 2022-0 Yes [id number] APPLY [facility] VISCOUS 2 % 8-23 TOPICALLY ity of solution 00:00: TO [place] AFFECTED Medical AREA(S) 3 Branch TIMES DAILY LIDOCAINE 2022-0 Yes [id number] APPLY [facility] VISCOUS 2 % 8-23 TOPICALLY ity of solution 00:00: TO [place] [facility] AREA(S) 3 Branch TIMES DAILY LIDOCAINE 2022-0 Yes [id number] APPLY Un [facility] VISCOUS 2 % 8-23 TOPICALLY ity of solution 00:00: TO [place] [facility] AREA(S) 3 Branch TIMES DAILY LIDOCAINE 2022-0 Yes [id number] APPLY Un [facility] VISCOUS 2 % 8-23 TOPICALLY ity of solution 00:00: TO [place] [facility] AREA(S) 3 Branch TIMES DAILY LIDOCAINE 2022-0 Yes [id number] APPLY Un [facility] VISCOUS 2 % 8-23 TOPICALLY ity of solution 00:00: TO [place] [facility] AREA(S) 3 Branch TIMES DAILY LIDOCAINE 2022-0 Yes [id number] APPLY Un [facility] VISCOUS 2 % 8-23 TOPICALLY ity of solution 00:00: TO [place] [facility] AREA(S) 3 Branch TIMES DAILY LIDOCAINE 2022-0 Yes [id number] APPLY Un [facility] VISCOUS 2 % 8-23 TOPICALLY ity of solution 00:00: TO [place] [facility] AREA(S) 3 Branch TIMES DAILY LIDOCAINE 2022-0 Yes [id number] APPLY Un [facility] VISCOUS 2 % 8-23 TOPICALLY ity of solution 00:00: TO [place] [facility] AREA(S) 3 Branch TIMES DAILY LIDOCAINE 2022-0 Yes [id number] APPLY Un [facility] VISCOUS 2 % 8-23 TOPICALLY ity of solution 00:00: TO [place] [facility] AREA(S) 3 Branch TIMES DAILY LIDOCAINE 2022-0 Yes [id number] APPLY Un [facility] VISCOUS 2 % 8-23 TOPICALLY ity of solution 00:00: TO [place] [facility] AREA(S) 3 Branch TIMES DAILY LIDOCAINE 2022-0 Yes [id number] APPLY Un [facility] VISCOUS 2 % 8-23 TOPICALLY ity of solution 00:00: TO [place] [facility] AREA(S) 3 Branch TIMES DAILY LIDOCAINE 2022-0 Yes [id number] APPLY Un [facility] VISCOUS 2 % 8-23 TOPICALLY ity of solution 00:00: TO [place] [facility]FFECTED Medical AREA(S) 3 Branch TIMES DAILY LIDOCAINE 2022-0 Yes [id number] APPLY [facility] VISCOUS 2 % 8-23 TOPICALLY it[facility] of solution 00:00: TO [place] AFFECTED Medical AREA(S) 3 Branch TIMES DAILY LIDOCAINE 2022-0 Yes [id number] APPLY [facility] VISCOUS 2 % 8-23 TOPICALLY ity of solution 00:00: TO [place] AFFECTED Medical AREA(S) 3 Branch TIMES DAILY LIDOCAINE 2022-0 Yes [id number] APPLY [facility] VISCOUS 2 % 8-23 TOPICALLY ity of solution 00:00: TO [place] AFFECTED Medical AREA(S) 3 Branch TIMES DAILY LIDOCAINE 2022-0 Yes [id number] APPLY [facility] VISCOUS 2 % 8-23 TOPICALLY ity of solution 00:00: TO [place] AFFECTED Medical AREA(S) 3 Branch TIMES DAILY LIDOCAINE 2022-0 Yes [id number] APPLY [facility] VISCOUS 2 % 8-23 TOPICALLY ity of solution 00:00: TO [place] AFFECTED Medical AREA(S) 3 Branch TIMES DAILY LIDOCAINE 2022-0 Yes [id number] APPLY [facility] VISCOUS 2 % 8-23 TOPICALLY ity of solution 00:00: TO [place] AFFECTED Medical AREA(S) 3 Branch TIMES DAILY LIDOCAINE 2022-0 Yes [id number] APPLY [facility] VISCOUS 2 % 8-23 TOPICALLY ity of solution 00:00: TO [place] AFFECTED Medical AREA(S) 3 Branch TIMES DAILY LIDOCAINE 2022-0 Yes [id number] APPLY [facility] VISCOUS 2 % 8-23 TOPICALLY ity of solution 00:00: TO [place] AFFECTED Medical AREA(S) 3 Branch TIMES DAILY LIDOCAINE 2022-0 Yes [id number] APPLY [facility] VISCOUS 2 % 8-23 TOPICALLY ity of solution 00:00: TO [place] AFFECTED Medical AREA(S) 3 Branch TIMES DAILY LIDOCAINE 2022-0 Yes [id number] APPLY [facility] VISCOUS 2 % 8-23 TOPICALLY ity of solution 00:00: TO [place] AFFECTED Medical AREA(S) 3 Branch TIMES DAILY LIDOCAINE 2022-0 Yes [id number] APPLY [facility] VISCOUS 2 % 8-23 TOPICALLY ity of solution 00:00: TO [place] AFFECTED Medical AREA(S) 3 Branch TIMES DAILY LIDOCAINE 2022-0 Yes [id number] APPLY [facility] VISCOUS 2 % 8-23 TOPICALLY ity of solution 00:00: TO [place] AFFECTED Medical AREA(S) 3 Branch TIMES DAILY LIDOCAINE 2022-0 Yes [id number] APPLY [facility] VISCOUS 2 % 8-23 TOPICALLY ity of solution 00:00: TO [place] AFFECTED Medical AREA(S) 3 Branch TIMES DAILY LIDOCAINE 2022-0 Yes [id number] APPLY [facility] VISCOUS 2 % 8-23 TOPICALLY ity of solution 00:00: TO [place] AFFECTED Medical AREA(S) 3 Branch TIMES DAILY LIDOCAINE 2022-0 Yes [id number] APPLY [facility] VISCOUS 2 % 8-23 TOPICALLY ity of solution 00:00: TO [place] AFFECTED Medical AREA(S) 3 Branch TIMES DAILY LIDOCAINE Yes [id number] APPLY [facility] VISCOUS 2 % 8-23 TOPICALLY ity of solution 00:00: TO 00 AFFECTED Medical AREA(S) 3 Branch TIMES DAILY LIDOCAINE 0 2022- No [id number] APPLY [facility] VISCOUS 2 % 8-23 04-05 TOPICALLY it y of solution 00:00: 00:00 TO [place] 00 :00 AFFECTED Medical AREA(S) 3 Branch TIMES DAILY ATORVASTATI 0 2021- No [id number] 40mg TAKE 1 [facility] N 40 mg 8-23 12-13 TABLET BY ity of tablet 00:00: 00:00 MOUTH AT [place] 00 :00 BEDTIME. Medical Branch AMLODIPINE 2021- No [id number] 10mg TAKE 1 [facility] 10 mg 8-23 12-07 TABLET BY ity of tablet 00:00: 00:00 MOUTH [place] 00 :00 EVERY Medical MORNING Branch SULFAMETHOX 0 2021- No [id number] TAKE 1 [facility] AZOLE-TRIME 8-23 09-26 TABLET BY it y of THOPRIM 00:00: 00:00 MOUTH 2 [place] 800-160 mg 00 :00 TIMES Medical per tablet DAILY WITH Bra nch A GLASS OF WATER UNTIL ALL TAKEN METFORMIN Yes [id number] TAKE 2 [facility] ER 500 mg 8-22 TABLETS BY ity of 24 hr 00:00: MOUTH 2 [place] tablet 00 TIMES Medical DAILY WITH Branch FOOD LEVETIRACET Yes [id number] TAKE 1 [facility] AM 1,000 mg 8-22 TABLET BY ity of tablet 00:00: MOUTH 2 [place] 00 TIMES Medical DAILY Branch IBUPROFEN 0 Yes [id number] TAKE 1 [facility] 800 mg 8-22 TABLET BY ity of tablet 00:00: MOUTH [place] 00 EVERY 6 Medical HOURS WITH Branch FOOD NEEDED FOR PAIN *DO NOT TAKE ASPIRIN* POTASSIUM Yes [id number] TAKE 1 [facility] CHLORIDE 10 8-22 TABLET BY ity of mEq CR 00:00: MOUTH [place] tablet 00 DAILY WITH Medical A GLASS OF Branch WATER METFORMIN Yes [id number] TAKE 2 [facility] ER 500 mg 8-22 TABLETS BY ity of 24 hr 00:00: MOUTH 2 [place] tablet 00 TIMES Medical DAILY WITH Branch FOOD LEVETIRACET 0 Yes [id number] TAKE 1 [facility] AM 1,000 mg 8-22 TABLET BY ity of tablet 00:00: MOUTH 2 [place] 00 TIMES Medical DAILY Branch IBUPROFEN 2021-0 Yes [id number] TAKE 1 [facility] 800 mg 8-22 TABLET BY ity of tablet 00:00: MOUTH [place] 00 EVERY 6 Medical HOURS WITH Branch FOOD NEEDED FOR PAIN *DO NOT TAKE ASPIRIN* POTASSIUM 2021-0 Yes [id number] TAKE 1 [facility] CHLORIDE 10 8-22 TABLET BY ity of mEq CR 00:00: MOUTH [place] tablet 00 DAILY WITH Medical A GLASS OF Branch WATER METFORMIN 0 Yes [id number] TAKE 2 [facility] ER 500 mg 8-22 TABLETS BY ity of 24 hr 00:00: MOUTH 2 [place] tablet 00 TIMES Medical DAILY WITH Branch FOOD LEVETIRACET Yes [id number] TAKE 1 [facility] AM 1,000 mg 8-22 TABLET BY ity of tablet 00:00: MOUTH 2 [place] 00 TIMES Medical DAILY Branch IBUPROFEN 2021-0 Yes [id number] TAKE 1 [facility] 800 mg 8-22 TABLET BY ity of tablet 00:00: MOUTH [place] 00 EVERY 6 Medical HOURS WITH Branch FOOD NEEDED FOR PAIN *DO NOT TAKE ASPIRIN* POTASSIUM 2021-0 Yes [id number] TAKE 1 [facility] CHLORIDE 10 8-22 TABLET BY ity of mEq CR 00:00: MOUTH [place] tablet 00 DAILY WITH Medical A GLASS OF Branch WATER METFORMIN 2021-0 Yes [id number] TAKE 2 [facility] ER 500 mg 8-22 TABLETS BY ity of 24 hr 00:00: MOUTH 2 [place] tablet 00 TIMES Medical DAILY WITH Branch FOOD LEVETIRACET 2021-0 Yes [id number] TAKE 1 [facility] AM 1,000 mg 8-22 TABLET BY ity of tablet 00:00: MOUTH 2 [place] 00 TIMES Medical DAILY Branch IBUPROFEN 2021-0 Yes [id number] TAKE 1 [facility] 800 mg 8-22 TABLET BY ity of tablet 00:00: MOUTH [place] 00 EVERY 6 Medical HOURS WITH Branch FOOD NEEDED FOR PAIN *DO NOT TAKE ASPIRIN* POTASSIUM 2021-0 Yes [id number] TAKE 1 [facility] CHLORIDE 10 8-22 TABLET BY ity of mEq CR 00:00: MOUTH [place] tablet 00 DAILY WITH Medical A GLASS OF Branch WATER METFORMIN 2022-0 Yes [id number] TAKE 2 [facility] ER 500 mg 8-22 TABLETS BY ity of 24 hr 00:00: MOUTH 2 [place] tablet 00 TIMES Medical DAILY WITH Branch FOOD LEVETIRACET Yes [id number] TAKE 1 [facility] AM 1,000 mg 8-22 TABLET BY ity of tablet 00:00: MOUTH 2 [place] 00 TIMES Medical DAILY Branch IBUPROFEN 2021-0 Yes [id number] TAKE 1 [facility] 800 mg 8-22 TABLET BY ity of tablet 00:00: MOUTH [place] 00 EVERY 6 Medical HOURS WITH Branch FOOD NEEDED FOR PAIN *DO NOT TAKE ASPIRIN* POTASSIUM Yes [id number] TAKE 1 [facility] CHLORIDE 10 8-22 TABLET BY ity of mEq CR 00:00: MOUTH [place] tablet 00 DAILY WITH Medical A GLASS OF Branch WATER METFORMIN Yes [id number] TAKE 2 [facility] ER 500 mg 8-22 TABLETS BY ity of 24 hr 00:00: MOUTH 2 [place] tablet 00 TIMES Medical DAILY WITH Branch FOOD LEVETIRACET Yes [id number] TAKE 1 [facility] AM 1,000 mg 8-22 TABLET BY ity of tablet 00:00: MOUTH 2 [place] 00 TIMES Medical DAILY Branch IBUPROFEN 2021-0 Yes [id number] TAKE 1 [facility] 800 mg 8-22 TABLET BY ity of tablet 00:00: MOUTH [place] 00 EVERY 6 Medical HOURS WITH Branch FOOD NEEDED FOR PAIN *DO NOT TAKE ASPIRIN* POTASSIUM Yes [id number] TAKE 1 [facility] CHLORIDE 10 8-22 TABLET BY ity of mEq CR 00:00: MOUTH [place] tablet 00 DAILY WITH Medical A GLASS OF Branch WATER METFORMIN 2021-0 Yes [id number] TAKE 2 [facility] ER 500 mg 8-22 TABLETS BY ity of 24 hr 00:00: MOUTH 2 [place] tablet 00 TIMES Medical DAILY WITH Branch FOOD LEVETIRACET Yes [id number] TAKE 1 [facility] AM 1,000 mg 8-22 TABLET BY ity of tablet 00:00: MOUTH 2 [place] 00 TIMES Medical DAILY Branch IBUPROFEN 2021-0 Yes [id number] TAKE 1 [facility] 800 mg 8-22 TABLET BY ity of tablet 00:00: MOUTH [place] 00 EVERY 6 Medical HOURS WITH Branch FOOD NEEDED FOR PAIN *DO NOT TAKE ASPIRIN* POTASSIUM Yes [id number] TAKE 1 [facility] CHLORIDE 10 8-22 TABLET BY ity of mEq CR 00:00: MOUTH [place] tablet 00 DAILY WITH Medical A GLASS OF Branch WATER METFORMIN 2021-0 Yes [id number] TAKE 2 [facility] ER 500 mg 8-22 TABLETS BY ity of 24 hr 00:00: MOUTH 2 [place] tablet 00 TIMES Medical DAILY WITH Branch FOOD LEVETIRACET 2021-0 Yes [id number] TAKE 1 [facility] AM 1,000 mg 8-22 TABLET BY ity of tablet 00:00: MOUTH 2 [place] 00 TIMES Medical DAILY Branch IBUPROFEN 2021-0 Yes [id number] TAKE 1 [facility] 800 mg 8-22 TABLET BY ity of tablet 00:00: MOUTH [place] 00 EVERY 6 Medical HOURS WITH Branch FOOD NEEDED FOR PAIN *DO NOT TAKE ASPIRIN* POTASSIUM 2021-0 Yes [id number] TAKE 1 [facility] CHLORIDE 10 8-22 TABLET BY ity of mEq CR 00:00: MOUTH [place] tablet 00 DAILY WITH Medical A GLASS OF Branch WATER METFORMIN 2021-0 Yes [id number] TAKE 2 [facility] ER 500 mg 8-22 TABLETS BY ity of 24 hr 00:00: MOUTH 2 [place] tablet 00 TIMES Medical DAILY WITH Branch FOOD LEVETIRACET 2021-0 Yes [id number] TAKE 1 [facility] AM 1,000 mg 8-22 TABLET BY ity of tablet 00:00: MOUTH 2 [place] 00 TIMES Medical DAILY Branch IBUPROFEN 2021-0 Yes [id number] TAKE 1 [facility] 800 mg 8-22 TABLET BY ity of tablet 00:00: MOUTH [place] 00 EVERY 6 Medical HOURS WITH Branch FOOD NEEDED FOR PAIN *DO NOT TAKE ASPIRIN* POTASSIUM 2021-0 Yes [id number] TAKE 1 [facility] CHLORIDE 10 8-22 TABLET BY ity of mEq CR 00:00: MOUTH [place] tablet 00 DAILY WITH Medical A GLASS OF Branch WATER METFORMIN 2021-0 Yes [id number] TAKE 2 [facility] ER 500 mg 8-22 TABLETS BY ity of 24 hr 00:00: MOUTH 2 [place] tablet 00 TIMES Medical DAILY WITH Branch FOOD LEVETIRACET 2021-0 Yes [id number] TAKE 1 [facility] AM 1,000 mg 8-22 TABLET BY ity of tablet 00:00: MOUTH 2 [place] 00 TIMES Medical DAILY Branch IBUPROFEN 2021-0 Yes [id number] TAKE 1 [facility] 800 mg 8-22 TABLET BY ity of tablet 00:00: MOUTH [place] 00 EVERY 6 Medical HOURS WITH Branch FOOD NEEDED FOR PAIN *DO NOT TAKE ASPIRIN* POTASSIUM Yes [id number] TAKE 1 [facility] CHLORIDE 10 8-22 TABLET BY ity of mEq CR 00:00: MOUTH [place] tablet 00 DAILY WITH Medical A GLASS OF Branch WATER METFORMIN Yes [id number] TAKE 2 [facility] ER 500 mg 8-22 TABLETS BY ity of 24 hr 00:00: MOUTH 2 [place] tablet 00 TIMES Medical DAILY WITH Branch FOOD LEVETIRACET Yes [id number] TAKE 1 [facility] AM 1,000 mg 8-22 TABLET BY ity of tablet 00:00: MOUTH 2 [place] 00 TIMES Medical DAILY Branch IBUPROFEN Yes [id number] TAKE 1 [facility] 800 mg 8-22 TABLET BY ity of tablet 00:00: MOUTH [place] 00 EVERY 6 Medical HOURS WITH Branch FOOD NEEDED FOR PAIN *DO NOT TAKE ASPIRIN* METFORMIN Yes [id number] TAKE 2 [facility] ER 500 mg 8-22 TABLETS BY ity of 24 hr 00:00: MOUTH 2 [place] tablet 00 TIMES Medical DAILY WITH Branch FOOD LEVETIRACET Yes [id number] TAKE 1 [facility] AM 1,000 mg 8-22 TABLET BY ity of tablet 00:00: MOUTH 2 [place] 00 TIMES Medical DAILY Branch IBUPROFEN Yes [id number] TAKE 1 [facility] 800 mg 8-22 TABLET BY ity of tablet 00:00: MOUTH [place] 00 EVERY 6 Medical HOURS WITH Branch FOOD NEEDED FOR PAIN *DO NOT TAKE ASPIRIN* METFORMIN Yes [id number] TAKE 2 [facility] ER 500 mg 8-22 TABLETS BY ity of 24 hr 00:00: MOUTH 2 [place] tablet 00 TIMES Medical DAILY WITH Branch FOOD LEVETIRACET Yes [id number] TAKE 1 [facility] AM 1,000 mg 8-22 TABLET BY ity of tablet 00:00: MOUTH 2 [place] 00 TIMES Medical DAILY Branch IBUPROFEN Yes [id number] TAKE 1 [facility] 800 mg 8-22 TABLET BY ity of tablet 00:00: MOUTH [place] 00 EVERY 6 Medical HOURS WITH Branch FOOD NEEDED FOR PAIN *DO NOT TAKE ASPIRIN* METFORMIN Yes [id number] TAKE 2 [facility] ER 500 mg 8-22 TABLETS BY ity of 24 hr 00:00: MOUTH 2 [place] tablet 00 TIMES Medical DAILY WITH Branch FOOD LEVETIRACET 2021-0 Yes [id number] TAKE 1 [facility] AM 1,000 mg 8-22 TABLET BY ity of tablet 00:00: MOUTH 2 [place] 00 TIMES Medical DAILY Branch IBUPROFEN 2021-0 Yes [id number] TAKE 1 [facility] 800 mg 8-22 TABLET BY ity of tablet 00:00: MOUTH [place] 00 EVERY 6 Medical HOURS WITH Branch FOOD NEEDED FOR PAIN *DO NOT TAKE ASPIRIN* METFORMIN 2021-0 Yes [id number] TAKE 2 [facility] ER 500 mg 8-22 TABLETS BY ity of 24 hr 00:00: MOUTH 2 [place] tablet 00 TIMES Medical DAILY WITH Branch FOOD LEVETIRACET Yes [id number] TAKE 1 [facility] AM 1,000 mg 8-22 TABLET BY ity of tablet 00:00: MOUTH 2 [place] 00 TIMES Medical DAILY Branch IBUPROFEN 2021-0 Yes [id number] TAKE 1 [facility] 800 mg 8-22 TABLET BY ity of tablet 00:00: MOUTH [place] 00 EVERY 6 Medical HOURS WITH Branch FOOD NEEDED FOR PAIN *DO NOT TAKE ASPIRIN* METFORMIN 2021-0 Yes [id number] TAKE 2 [facility] ER 500 mg 8-22 TABLETS BY ity of 24 hr 00:00: MOUTH 2 [place] tablet 00 TIMES Medical DAILY WITH Branch FOOD LEVETIRACET Yes [id number] TAKE 1 [facility] AM 1,000 mg 8-22 TABLET BY ity of tablet 00:00: MOUTH 2 [place] 00 TIMES Medical DAILY Branch IBUPROFEN 2021-0 Yes [id number] TAKE 1 [facility] 800 mg 8-22 TABLET BY ity of tablet 00:00: MOUTH [place] 00 EVERY 6 Medical HOURS WITH Branch FOOD NEEDED FOR PAIN *DO NOT TAKE ASPIRIN* METFORMIN 2021-0 Yes [id number] TAKE 2 [facility] ER 500 mg 8-22 TABLETS BY ity of 24 hr 00:00: MOUTH 2 [place] tablet 00 TIMES Medical DAILY WITH Branch FOOD LEVETIRACET 2021-0 Yes [id number] TAKE 1 [facility] AM 1,000 mg 8-22 TABLET BY ity of tablet 00:00: MOUTH 2 [place] 00 TIMES Medical DAILY Branch METFORMIN 2021-0 Yes [id number] TAKE 2 [facility] ER 500 mg 8-22 TABLETS BY ity of 24 hr 00:00: MOUTH 2 [place] tablet 00 TIMES Medical DAILY WITH Branch FOOD LEVETIRACET Yes [id number] TAKE 1 [facility] AM 1,000 mg 8-22 TABLET BY ity of tablet 00:00: MOUTH 2 [place] 00 TIMES Medical DAILY Branch METFORMIN Yes [id number] TAKE 2 [facility] ER 500 mg 8-22 TABLETS BY ity of 24 hr 00:00: MOUTH 2 [place] tablet 00 TIMES Medical DAILY WITH Branch FOOD LEVETIRACET Yes [id number] TAKE 1 [facility] AM 1,000 mg 8-22 TABLET BY ity of tablet 00:00: MOUTH 2 [place] 00 TIMES Medical DAILY Branch METFORMIN 2021- No [id number] TAKE 2 [facility] ER 500 mg 8-22 10-21 TABLETS BY ity of 24 hr 00:00: 00:00 MOUTH 2 [place] tablet 00 :00 TIMES Medical DAILY WITH Branch FOOD LEVETIRACET 2021- No [id number] TAKE 1 [facility] AM 1,000 mg 8-22 10-21 TABLET BY it y of tablet 00:00: 00:00 MOUTH 2 [place] 00 :00 TIMES Medical DAILY Branch IBUPROFEN 2021- No [id number] TAKE 1 [facility] 800 mg 8-22 09-28 TABLET BY ity of tablet 00:00: 00:00 MOUTH [place] 00 :00 EVERY 6 Medical HOURS WITH Branch FOOD NEEDED FOR PAIN *DO NOT TAKE ASPIRIN* POTASSIUM 2021- No [id number] TAKE 1 [facility] CHLORIDE 10 8-22 09-19 TABLET BY it y of mEq CR 00:00: 00:00 MOUTH [place] tablet 00 :00 DAILY WITH Medical A GLASS OF Branch WATER HYDROXYZINE 2021- No [id number] TAKE 1 [facility] 50 mg 8-22 08-25 TABLET BY ity of tablet 00:00: 00:00 MOUTH 3 [place] 00 :00 TIMES Medical DAILY Branch NEEDED FOR ITCHING OR ANXIETY. *MAY IMPAIR ALERTNESS* * SERTRALINE 2021- No [id number] TAKE 2 [facility] 100 mg 8-22 08-25 TABLETS BY ity of tablet 00:00: 00:00 MOUTH [place] 00 :00 EVERY DAY Medical Branch LOSARTAN 2021-2021- No [id number] TAKE 1 [facility] 100 mg 8-22 08-25 TABLET BY ity of tablet 00:00: 00:00 MOUTH IN [place] 00 :00 THE Medical MORNING Branch HYDROXYZINE 2021-0 2021- No [id number] TAKE 1 [facility] 50 mg 8-22 08-25 TABLET BY ity of tablet 00:00: 00:00 MOUTH 3 [place] 00 :00 TIMES Medical DAILY Branch NEEDED FOR ITCHING OR ANXIETY. *MAY IMPAIR ALERTNESS* * SERTRALINE 2021-0 2021- No [id number] TAKE 2 [facility] 100 mg 8-22 08-25 TABLETS BY ity of tablet 00:00: 00:00 MOUTH [place] 00 :00 EVERY DAY Medical Branch LOSARTAN 2021-0 2021- No [id number] TAKE 1 [facility] 100 mg 8-22 08-25 TABLET BY ity of tablet 00:00: 00:00 MOUTH IN [place] 00 :00 THE Medical MORNING Branch PANTOPRAZOL 2021-0 Yes TAKE 1 [facility] E 40 mg EC 8-08 TABLET BY ity of tablet 00:00: MOUTH ONCE [place] DAILY Medical BEFORE A Branch MEAL CLOPIDOGREL 2021-0 Yes [id number] TAKE 1 [facility] 75 mg 8-08 TABLET BY ity of tablet 00:00: MOUTH [place] 00 EVERY DAY Medical Branch PANTOPRAZOL 2-0 Yes TAKE 1 [facility] E 40 mg EC 8-08 TABLET BY ity of tablet 00:00: MOUTH ONCE [place] 00 DAILY Medical BEFORE A Branch MEAL CLOPIDOGREL 2-0 Yes [id number] TAKE 1 [facility] 75 mg 8-08 TABLET BY ity of tablet 00:00: MOUTH [place] 00 EVERY DAY Medical Branch PANTOPRAZOL 2-0 Yes TAKE 1 [facility] E 40 mg EC 8-08 TABLET BY ity of tablet 00:00: MOUTH ONCE [place] 00 DAILY Medical BEFORE A Branch MEAL CLOPIDOGREL 2-0 Yes [id number] TAKE 1 [facility] 75 mg 8-08 TABLET BY ity of tablet 00:00: MOUTH [place] 00 EVERY DAY Medical Branch PANTOPRAZOL 2-0 Yes TAKE 1 [facility] E 40 mg EC 8-08 TABLET BY ity of tablet 00:00: MOUTH ONCE [place] DAILY Medical BEFORE A Branch MEAL CLOPIDOGREL 2-0 Yes [id number] TAKE 1 [facility] 75 mg 8-08 TABLET BY ity of tablet 00:00: MOUTH [place] 00 EVERY DAY Medical Branch PANTOPRAZOL 2-0 Yes TAKE 1 [facility] E 40 mg EC 8-08 TABLET BY ity of tablet 00:00: MOUTH ONCE DAILY Medical BEFORE A Branch MEAL CLOPIDOGREL 2022-0 Yes [id number] TAKE 1 [facility] 75 mg 8-08 TABLET BY ity of tablet 00:00: MOUTH EVERY DAY Medical Branch PANTOPRAZOL 2022-0 Yes TAKE 1 [facility] E 40 mg EC 8-08 TABLET BY ity of tablet 00:00: MOUTH DAILY Medical BEFORE A Branch MEAL CLOPIDOGREL 2022-0 Yes [id number] TAKE 1 [facility] 75 mg 8-08 TABLET BY ity of tablet 00:00: MOUTH EVERY DAY Medical Branch PANTOPRAZOL 2022-0 Yes TAKE 1 [facility] E 40 mg EC 8-08 TABLET BY ity of tablet 00:00: MOUTH DAILY Medical BEFORE A Branch MEAL CLOPIDOGREL 2022-0 Yes [id number] TAKE 1 [facility] 75 mg 8-08 TABLET BY ity of tablet 00:00: MOUTH EVERY DAY Medical Branch PANTOPRAZOL 2022-0 Yes TAKE 1 [facility] E 40 mg EC 8-08 TABLET BY ity of tablet 00:00: MOUTH DAILY Medical BEFORE A Branch MEAL CLOPIDOGREL 2022-0 Yes [id number] TAKE 1 [facility] 75 mg 8-08 TABLET BY ity of tablet 00:00: MOUTH EVERY DAY Medical Branch PANTOPRAZOL 2022-0 Yes TAKE 1 [facility] E 40 mg EC 8-08 TABLET BY ity of tablet 00:00: MOUTH DAILY Medical BEFORE A Branch MEAL CLOPIDOGREL 2022-0 Yes [id number] TAKE 1 [facility] 75 mg 8-08 TABLET BY ity of tablet 00:00: MOUTH EVERY DAY Medical Branch PANTOPRAZOL 2022-0 Yes TAKE 1 [facility] E 40 mg EC 8-08 TABLET BY ity of tablet 00:00: MOUTH DAILY Medical BEFORE A Branch MEAL CLOPIDOGREL 2022-0 Yes [id number] TAKE 1 [facility] 75 mg 8-08 TABLET BY ity of tablet 00:00: MOUTH EVERY DAY Medical Branch PANTOPRAZOL 2022-0 Yes TAKE 1 [facility] E 40 mg EC 8-08 TABLET BY ity of tablet 00:00: MOUTH DAILY Medical BEFORE A Branch MEAL CLOPIDOGREL 2022-0 Yes [id number] TAKE 1 [facility] 75 mg 8-08 TABLET BY ity of tablet 00:00: MOUTH EVERY DAY Medical Branch PANTOPRAZOL 2022-0 Yes TAKE 1 [facility] E 40 mg EC 8-08 TABLET BY ity of tablet 00:00: MOUTH DAILY Medical BEFORE A Branch MEAL CLOPIDOGREL 2022-0 Yes [id number] TAKE 1 [facility] 75 mg 8-08 TABLET BY ity of tablet 00:00: MOUTH EVERY DAY Medical Branch PANTOPRAZOL 2022-0 Yes TAKE 1 [facility] E 40 mg EC 8-08 TABLET BY ity of tablet 00:00: MOUTH DAILY Medical BEFORE A Branch MEAL CLOPIDOGREL 2022-0 Yes [id number] TAKE 1 [facility] 75 mg 8-08 TABLET BY ity of tablet 00:00: MOUTH EVERY DAY Medical Branch PANTOPRAZOL 2022-0 Yes TAKE 1 [facility] ers E 40 mg EC 8-08 TABLET BY ity of tablet 00:00: MOUTH DAILY Medical BEFORE A Branch MEAL CLOPIDOGREL 2022-0 Yes [id number] TAKE 1 [facility] 75 mg 8-08 TABLET BY ity of tablet 00:00: MOUTH EVERY DAY Medical Branch PANTOPRAZOL 2022-0 Yes TAKE 1 [facility] E 40 mg EC 8-08 TABLET BY ity of tablet 00:00: MOUTH DAILY Medical BEFORE A Branch MEAL CLOPIDOGREL 2022-0 Yes [id number] TAKE 1 [facility] 75 mg 8-08 TABLET BY ity of tablet 00:00: MOUTH EVERY DAY Medical Branch PANTOPRAZOL 2022-0 Yes TAKE 1 [facility] E 40 mg EC 8-08 TABLET BY ity of tablet 00:00: MOUTH DAILY Medical BEFORE A Branch MEAL CLOPIDOGREL 2022-0 Yes [id number] TAKE 1 [facility] 75 mg 8-08 TABLET BY ity of tablet 00:00: MOUTH EVERY DAY Medical Branch PANTOPRAZOL 2022-0 Yes TAKE 1 [facility] E 40 mg EC 8-08 TABLET BY ity of tablet 00:00: MOUTH DAILY Medical BEFORE A Branch MEAL CLOPIDOGREL 2022-0 Yes [id number] TAKE 1 [facility] 75 mg 8-08 TABLET BY ity of tablet 00:00: MOUTH EVERY DAY Medical Branch PANTOPRAZOL 2022-0 Yes TAKE 1 [facility] E 40 mg EC 8-08 TABLET BY ity of tablet 00:00: MOUTH DAILY Medical BEFORE A Branch MEAL CLOPIDOGREL 2022-0 Yes [id number] TAKE 1 [facility] 75 mg 8-08 TABLET BY ity of tablet 00:00: MOUTH EVERY DAY Medical Branch PANTOPRAZOL 2022-0 Yes TAKE 1 [facility] E 40 mg EC 8-08 TABLET BY ity of tablet 00:00: MOUTH ONCE [place] 00 DAILY Medical BEFORE A Branch MEAL CLOPIDOGREL Yes [id number] TAKE 1 [facility] 75 mg 8-08 TABLET BY ity of tablet 00:00: MOUTH [place] 00 EVERY DAY Medical Branch PANTOPRAZOL 2021- No TAKE 1 [facility] E 40 mg EC 8- 10-21 TABLET BY [facility] of tablet 00:00: 00:00 MOUTH [place]CE [place] 00 :00 DAILY Medical BEFORE A Branch MEAL CLOPIDOGREL 2021- No [id number] TAKE 1 [facility] 75 mg 8- 10-21 TABLET BY ity of tablet 00:00: 00:00 MOUTH [place] 00 :00 EVERY DAY Medical Branch HYDROCHLORO 2021- No [id number] TAKE 1 [facility] THIAZIDE 25 8 08-25 TABLET BY it y of mg tablet 00:00: 00:00 MOUTH [place] 00 :00 EVERY DAY Medical Branch TOUJEO 2021- No [id number] INJECT 72 U nivers SOLOSTAR 8 08-25 UNITS ity of U-300 00:00: 00:00 UNDER THE [place] INSULIN 300 00 :00 SKIN ONCE Med ical unit/mL DAILY IN Branch (1.5 mL) THE InPn EVENING (ADJUSTING DOSE BY 2 UNITS DAILY UNTIL FASTING BLOOD SUGAR LESS THAN 200) HYDROCHLORO 2021- No [id number] TAKE 1 [facility] THIAZIDE 25 10-28 08-25 TABLET BY it y of mg tablet 00:00: 00:00 MOUTH [place] 00 :00 EVERY DAY Medical Branch TOUJEO 2021- No [id number] INJECT 72 U nivers SOLOSTAR 10-28 08-25 UNITS ity of U-300 00:00: 00:00 UNDER THE [place] INSULIN 300 00 :00 SKIN ONCE Med ical unit/mL DAILY IN Branch (1.5 mL) THE InPn EVENING (ADJUSTING DOSE BY 2 UNITS DAILY UNTIL FASTING BLOOD SUGAR LESS THAN 200) PROMETHAZIN Yes [id number] TAKE 1 [facility] E 25 mg 8-04 TABLET BY ity of tablet 00:00: MOUTH [place] 00 EVERY 6 Medical HOURS Branch NEEDED FOR NAUSEA AND VOMITING *MAY IMPAIR ALERTNESS* * PROMETHAZIN Yes [id number] TAKE 1 [facility] E 25 mg 8-04 TABLET BY ity of tablet 00:00: MOUTH [place] 00 EVERY 6 Medical HOURS Branch NEEDED FOR NAUSEA AND VOMITING *MAY IMPAIR ALERTNESS* * PROMETHAZIN 2021- Yes [id number] TAKE 1 [facility] E 25 mg 8-04 TABLET BY ity of tablet 00:00: MOUTH [place] 00 EVERY 6 Medical HOURS Branch NEEDED FOR NAUSEA AND VOMITING *MAY IMPAIR ALERTNESS* * PROMETHAZIN 2021-0 Yes [id number] TAKE 1 [facility] E 25 mg 8-04 TABLET BY ity of tablet 00:00: MOUTH [place] 00 EVERY 6 Medical HOURS Branch NEEDED FOR NAUSEA AND VOMITING *MAY IMPAIR ALERTNESS* * PROMETHAZIN Yes [id number] TAKE 1 [facility] E 25 mg 8-04 TABLET BY ity of tablet 00:00: MOUTH 00 EVERY 6 Medical HOURS Branch NEEDED FOR NAUSEA AND VOMITING *MAY IMPAIR ALERTNESS* * PROMETHAZIN 0 Yes [id number] TAKE 1 [facility] E 25 mg 8-04 TABLET BY ity of tablet 00:00: MOUTH [place] 00 EVERY 6 Medical HOURS Branch NEEDED FOR NAUSEA AND VOMITING *MAY IMPAIR ALERTNESS* * PROMETHAZIN 2021-0 Yes [id number] TAKE 1 [facility] E 25 mg 8-04 TABLET BY ity of tablet 00:00: MOUTH [place] 00 EVERY 6 Medical HOURS Branch NEEDED FOR NAUSEA AND VOMITING *MAY IMPAIR ALERTNESS* * PROMETHAZIN 0 Yes [id number] TAKE 1 [facility] E 25 mg 8-04 TABLET BY ity of tablet 00:00: MOUTH [place] 00 EVERY 6 Medical HOURS Branch NEEDED FOR NAUSEA AND VOMITING *MAY IMPAIR ALERTNESS* * PROMETHAZIN 2021-0 Yes [id number] TAKE 1 [facility] E 25 mg 8-04 TABLET BY ity of tablet 00:00: MOUTH [place] 00 EVERY 6 Medical HOURS Branch NEEDED FOR NAUSEA AND VOMITING *MAY IMPAIR ALERTNESS* * PROMETHAZIN 2021- No [id number] TAKE 1 [facility] E 25 mg 8-04 09-16 TABLET BY ity of tablet 00:00: 00:00 MOUTH [place] 00 :00 EVERY 6 Medical HOURS Branch NEEDED FOR NAUSEA AND VOMITING *MAY IMPAIR ALERTNESS* * Insulin Yes [id number] USE [facility] [place], 10-23 DIRECTED ity of Disposable, 00:00: FOR [place] (SURE 00 INSULIN Medical COMFORT PEN ADMINISTRA Br anch NEEDLE) 32 TION gauge x 5/32" Ndle HYDROcodone Yes [id number] TAKE 1 [facility] ers -acetaminop 8-03 TABLET BY ity of hen 10-325 00:00: MOUTH [place] mg tablet 00 EVERY 4 Medical HOURS Branch NEEDED FOR PAIN (SCALE 4-6) *MAY MAKE DROWSY* CHRONIC PAIN Indication s: chronic pain Insulin Yes [id number] USE [facility] [place], 8- DIRECTED ity of Disposable, 00:00: FOR [place] (SURE 00 INSULIN Medical COMFORT PEN ADMINISTRA Br anch NEEDLE) 32 TION gauge x 5/32" Ndle HYDROcodone Yes 2745 TAKE 1 [facility] ers -acetaminop 8-03 TABLET BY ity of hen 10-325 00:00: MOUTH [place] mg tablet 00 EVERY 4 Medical HOURS Branch NEEDED FOR PAIN (SCALE 4-6) *MAY MAKE DROWSY* CHRONIC PAIN Indication s: chronic pain Insulin Yes [id number] USE [facility] [place], 8- DIRECTED ity of Disposable, 00:00: FOR [place] (SURE 00 INSULIN Medical COMFORT PEN ADMINISTRA Br anch NEEDLE) 32 TION gauge x 5/32" Ndle HYDROcodone Yes 2745 TAKE 1 [facility] ers -acetaminop 8-03 TABLET BY ity of hen 10-325 00:00: MOUTH [place] mg tablet 00 EVERY 4 Medical HOURS Branch NEEDED FOR PAIN (SCALE 4-6) *MAY MAKE DROWSY* CHRONIC PAIN Indication s: chronic pain Insulin Yes [id number] USE [facility] [place], 8- DIRECTED ity of Disposable, 00:00: FOR [place] (SURE 00 INSULIN Medical COMFORT PEN ADMINISTRA Br anch NEEDLE) 32 TION gauge x 5/32" Ndle HYDROcodone Yes [id number] TAKE 1 Univ ers -acetaminop 8-03 TABLET BY ity of hen 10-325 00:00: MOUTH [place] mg tablet 00 EVERY 4 Medical HOURS Branch NEEDED FOR PAIN (SCALE 4-6) *MAY MAKE DROWSY* CHRONIC PAIN Indication s: chronic pain Insulin Yes [id number] USE Uni vers [place], 8- DIRECTED ity of Disposable, 00:00: FOR [place] (SURE 00 INSULIN Medical COMFORT PEN ADMINISTRA Br anch NEEDLE) 32 TION gauge x 5/32" Ndle HYDROcodone 0 Yes 2745 TAKE 1 Univ ers -acetaminop 10-23 TABLET BY ity of hen 10-325 00:00: MOUTH [place] mg tablet 00 EVERY 4 Medical HOURS Branch NEEDED FOR PAIN (SCALE 4-6) *MAY MAKE DROWSY* CHRONIC PAIN Indication s: chronic pain Insulin Yes [id number] USE [facility] vers [place], 10-23 DIRECTED ity of Disposable, 00:00: FOR [place] (SURE 00 INSULIN Medical COMFORT PEN ADMINISTRA Br anch NEEDLE) 32 TION gauge x 5/32" Ndle Insulin 0 Yes [id number] USE Uni vers [place], 10-23 DIRECTED ity of Disposable, 00:00: FOR [place] (SURE 00 INSULIN Medical COMFORT PEN ADMINISTRA Br anch NEEDLE) 32 TION gauge x 5/32" Ndle Insulin 0 Yes [id number] USE [facility] vers [place], 10-23 DIRECTED ity of Disposable, 00:00: FOR [place] (SURE 00 INSULIN Medical COMFORT PEN ADMINISTRA Br anch NEEDLE) 32 TION gauge x 5/32" Ndle Insulin 0 Yes [id number] USE [facility] vers [place], 10-23 DIRECTED ity of Disposable, 00:00: FOR [place] (SURE 00 INSULIN Medical COMFORT PEN ADMINISTRA Br anch NEEDLE) 32 TION gauge x 5/32" Ndle Insulin 2021-0 Yes [id number] USE [facility] vers [place], 10-23 DIRECTED ity of Disposable, 00:00: FOR [place] (SURE 00 INSULIN Medical COMFORT PEN ADMINISTRA Br anch NEEDLE) 32 TION gauge x 5/32" Ndle Insulin 2021-0 Yes [id number] USE [facility] vers [place], 10-23 DIRECTED ity of Disposable, 00:00: FOR [place] (SURE 00 INSULIN Medical COMFORT PEN ADMINISTRA Br anch NEEDLE) 32 TION gauge x 5/32" Ndle Insulin 2021-0 Yes [id number] USE [facility] vers [place], 10-23 DIRECTED ity of Disposable, 00:00: FOR [place] (SURE 00 INSULIN Medical COMFORT PEN ADMINISTRA Br anch NEEDLE) 32 TION gauge x 5/32" Ndle Insulin 2021-0 Yes [id number] USE [facility] vers [place], 10-23 DIRECTED ity of Disposable, 00:00: FOR [place] (SURE 00 INSULIN Medical COMFORT PEN ADMINISTRA Br anch NEEDLE) 32 TION gauge x 5/32" Ndle Insulin Yes [id number] USE [facility] vers [place], 10-23 DIRECTED ity of Disposable, 00:00: FOR [place] (SURE 00 INSULIN Medical COMFORT PEN ADMINISTRA Br anch NEEDLE) 32 TION gauge x 5/32" Ndle Insulin 0 Yes [id number] USE [facility] vers [place], 10-23 DIRECTED ity of Disposable, 00:00: FOR [place] (SURE 00 INSULIN Medical COMFORT PEN ADMINISTRA Br anch NEEDLE) 32 TION gauge x 5/32" Ndle Insulin Yes [id number] USE [facility] vers [place], 10-23 DIRECTED ity of Disposable, 00:00: FOR [place] (SURE 00 INSULIN Medical COMFORT PEN ADMINISTRA Br anch NEEDLE) 32 TION gauge x 5/32" Ndle Insulin Yes [id number] USE [facility] vers [place], 10-23 DIRECTED ity of Disposable, 00:00: FOR [place] (SURE 00 INSULIN Medical COMFORT PEN ADMINISTRA Br anch NEEDLE) 32 TION gauge x 5/32" Ndle Insulin Yes [id number] USE [facility] vers [place], 10-23 DIRECTED ity of Disposable, 00:00: FOR [place] (SURE 00 INSULIN Medical COMFORT PEN ADMINISTRA Br anch NEEDLE) 32 TION gauge x 5/32" Ndle Insulin 2021- No [id number] USE Un reinier [place], 10-23 10-10 DIRECTED ity of Disposable, 00:00: 00:00 FOR [place] (SURE 00 :00 INSULIN Medical COMFORT PEN ADMINISTRA Br anch NEEDLE) 32 TION gauge x 5/32" Ndle HYDROcodone 2021- No [id number] TAKE 1 Uni vers -acetaminop 10-23 08-30 TABLET BY it y of hen 10-325 00:00: 00:00 MOUTH [place] mg tablet 00 :00 EVERY 4 Medical HOURS Branch NEEDED FOR PAIN (SCALE 4-6) *MAY MAKE DROWSY* CHRONIC PAIN Indication s: chronic pain VICTOZA 2021- No [id number] 1.8mg INJECT 1.8 Univers 3-SOILA 0.6 10-23 08-25 MG UNDER ity o f mg/0.1 mL 00:00: 00:00 THE SKIN [place] as (18 mg/3 00 :00 DAILY Medical mL) Branch injection VICTOZA 2021- No [id number] 1.8mg INJECT 1.8 Univers 3-SOILA 0.6 8 08-25 MG UNDER ity o f mg/0.1 mL 00:00: 00:00 THE SKIN [place] as (18 mg/3 00 :00 DAILY Medical mL) Branch injection JARDIANCE 2021- No [id number] 25mg TAKE 1 U nivers 25 mg Tab 10-17-25 TABLET BY ity of 00:00: 00:00 MOUTH [place] 00 :00 DAILY Medical Branch JARDIANCE 2021- No [id number] 25mg TAKE 1 U nivers 25 mg Tab -17 11- TABLET BY ity of 00:00: 00:00 MOUTH [place] 00 :00 DAILY Medical Branch TRIAMCINOLO Yes [id number] APPLY Univers NE 7-11 THINLY TO ity of ACETONIDE 00:00: AFFECTED [place] 0.1 % cream 00 AREA(S) 3 Med ical TIMES Branch DAILY TRIAMCINOLO Yes [id number] APPLY [facility] NE 7-11 THINLY TO ity of ACETONIDE 00:00: AFFECTED [place] 0.1 % cream 00 AREA(S) 3 Med ical TIMES Branch DAILY TRIAMCINOLO Yes [id number] APPLY [facility] NE 7-11 THINLY TO ity of ACETONIDE 00:00: AFFECTED [place] 0.1 % cream 00 AREA(S) 3 Med ical TIMES Branch DAILY TRIAMCINOLO Yes [id number] APPLY [facility] NE 7-11 THINLY TO ity of ACETONIDE 00:00: AFFECTED [place] 0.1 % cream 00 AREA(S) 3 Med ical TIMES Branch DAILY TRIAMCINOLO Yes [id number] APPLY [facility] NE 7-11 THINLY TO ity of ACETONIDE 00:00: AFFECTED [place] 0.1 % cream 00 AREA(S) 3 Med ical TIMES Branch DAILY TRIAMCINOLO Yes [id number] APPLY [facility] NE 7-11 THINLY TO ity of ACETONIDE 00:00: AFFECTED [place] 0.[place] % cream 00 AREA(S) 3 Med ical TIMES Branch DAILY TRIAMCINOLO 2021-0 Yes [id number] APPLY [facility] NE 7-11 THINLY TO ity of ACETONIDE 00:00: AFFECTED [place] 0[place] % cream 00 AREA(S) 3 Med ical TIMES Branch DAILY TRIAMCINOLO 2021-0 Yes [id number] APPLY [facility] NE 7-11 THINLY TO ity of ACETONIDE 00:00: AFFECTED [place] 0.[place] % cream 00 AREA(S) 3 Med ical TIMES Branch DAILY TRIAMCINOLO 2021-0 Yes [id number] APPLY [facility] NE 7-11 THINLY TO ity of ACETONIDE 00:00: AFFECTED [place] 0.[place] % cream 00 AREA(S) 3 Med ical TIMES Branch DAILY TRIAMCINOLO 2021-0 Yes [id number] APPLY [facility] NE 7-11 THINLY TO ity of ACETONIDE 00:00: AFFECTED [place] 0.[place] % cream 00 AREA(S) 3 Med ical TIMES Branch DAILY TRIAMCINOLO 2021-0 Yes [id number] APPLY [facility] NE 7-11 THINLY TO ity of ACETONIDE 00:00: AFFECTED [place] 0.[place] % cream 00 AREA(S) 3 Med ical TIMES Branch DAILY TRIAMCINOLO 2021-0 Yes [id number] APPLY [facility] NE 7-11 THINLY TO ity of ACETONIDE 00:00: AFFECTED [place] 0.[place] % cream 00 AREA(S) 3 Med ical TIMES Branch DAILY TRIAMCINOLO 2021-0 Yes [id number] APPLY [facility] NE 7-11 THINLY TO ity of ACETONIDE 00:00: AFFECTED [place] 0.[place] % cream 00 AREA(S) 3 Med ical TIMES Branch DAILY TRIAMCINOLO 2021-0 Yes [id number] APPLY [facility] NE 7-11 THINLY TO ity of ACETONIDE 00:00: AFFECTED [place] 0[place] % cream 00 AREA(S) 3 Med ical TIMES Branch DAILY TRIAMCINOLO 2021-0 Yes [id number] APPLY [facility] NE 7-11 THINLY TO ity of ACETONIDE 00:00: AFFECTED [place] 0.[place] % cream 00 AREA(S) 3 Med ical TIMES Branch DAILY TRIAMCINOLO 2021-0 Yes [id number] APPLY [facility] NE 7-11 THINLY TO ity of ACETONIDE 00:00: AFFECTED [place] 0.[place] % cream 00 AREA(S) 3 Med ical TIMES Branch DAILY TRIAMCINOLO 2021-0 Yes [id number] APPLY [facility] NE 7-11 THINLY TO ity of ACETONIDE 00:00: AFFECTED [place] 0[place] % cream 00 AREA(S) 3 Med ical TIMES Branch DAILY TRIAMCINOLO 2021-0 Yes [id number] APPLY [facility] NE 7-11 THINLY TO ity of ACETONIDE 00:00: AFFECTED [place] 0.[place] % cream 00 AREA(S) 3 Med ical TIMES Branch DAILY TRIAMCINOLO 2021-0 Yes [id number] APPLY [facility] NE 7-11 THINLY TO ity of ACETONIDE 00:00: AFFECTED [place] 0.[place] % cream 00 AREA(S) 3 Med ical TIMES Branch DAILY TRIAMCINOLO 2021-0 Yes [id number] APPLY [facility] NE 7-11 THINLY TO ity of ACETONIDE 00:00: AFFECTED [place] 0.[place] % cream 00 AREA(S) 3 Med ical TIMES Branch DAILY TRIAMCINOLO 2021-0 Yes [id number] APPLY [facility] NE 7-11 THINLY TO ity of ACETONIDE 00:00: AFFECTED [place] 0.[place] % cream 00 AREA(S) 3 Med ical TIMES Branch DAILY TRIAMCINOLO 2021-0 Yes [id number] APPLY [facility] NE 7-11 THINLY TO ity of ACETONIDE 00:00: AFFECTED [place] 0.[place] % cream 00 AREA(S) 3 Med ical TIMES Branch DAILY TRIAMCINOLO 2021-0 Yes [id number] APPLY [facility] NE 7-11 THINLY TO ity of ACETONIDE 00:00: AFFECTED [place] 0.[place] % cream 00 AREA(S) 3 Med ical TIMES Branch DAILY TRIAMCINOLO 2021-0 Yes [id number] APPLY [facility] NE 7-11 THINLY TO ity of ACETONIDE 00:00: AFFECTED [place] 0.[place] % cream 00 AREA(S) 3 Med ical TIMES Branch DAILY TRIAMCINOLO 2021-0 Yes [id number] APPLY [facility] NE 7-11 THINLY TO ity of ACETONIDE 00:00: AFFECTED [place] 0.[place] % cream 00 AREA(S) 3 Med ical TIMES Branch DAILY TRIAMCINOLO 2022-0 Yes [id number] APPLY [facility] NE 7-11 THINLY TO ity of ACETONIDE 00:00: AFFECTED [place] 0.[place] % cream 00 AREA(S) 3 Med ical TIMES Branch DAILY TRIAMCINOLO 0 Yes [id number] APPLY [facility] NE 7-11 THINLY TO ity of ACETONIDE 00:00: AFFECTED [place] 0.1 % cream 00 AREA(S) 3 Med ical TIMES Branch DAILY TRIAMCINOLO 0 Yes [id number] APPLY [facility] NE 7-11 THINLY TO ity of ACETONIDE 00:00: AFFECTED [place] 0.1 % cream 00 AREA(S) 3 Med ical TIMES Branch DAILY TRIAMCINOLO 0 Yes [id number] APPLY [facility] NE 7-11 THINLY TO ity of ACETONIDE 00:00: AFFECTED [place] 0.1 % cream 00 AREA(S) 3 Med ical TIMES Branch DAILY TRIAMCINOLO 0 Yes [id number] APPLY [facility] NE 7-11 THINLY TO ity of ACETONIDE 00:00: AFFECTED [place] 0.1 % cream 00 AREA(S) 3 Med ical TIMES Branch DAILY TRIAMCINOLO 0 Yes [id number] APPLY [facility] NE 7-11 THINLY TO ity of ACETONIDE 00:00: AFFECTED [place] 0.1 % cream 00 AREA(S) 3 Med ical TIMES Branch DAILY TRIAMCINOLO 0 Yes [id number] APPLY [facility] NE 7-11 THINLY TO ity of ACETONIDE 00:00: AFFECTED [place] 0.1 % cream 00 AREA(S) 3 Med ical TIMES Branch DAILY TRIAMCINOLO 0 Yes [id number] APPLY [facility] NE 7-11 THINLY TO ity of ACETONIDE 00:00: AFFECTED [place] 0.1 % cream 00 AREA(S) 3 Med ical TIMES Branch DAILY TRIAMCINOLO 2021-0 2021- No [id number] APPLY [facility] NE 7-11 11-21 THINLY TO ity of ACETONIDE 00:00: 00:00 AFFECTED [place] 0.1 % cream 00 :00 AREA(S) 3 Med ical TIMES Branch DAILY MUPIROCIN 2 0 Yes [id number] APPLY Univers % ointment 7-07 TOPICALLY ity of 00:00: TO BOTH [place] 00 NOSTRILS Medical EVERY 12 Branch HOURS USING SEPARATE COTTON SWABS FOR 5 DAYS MUPIROCIN 2 2021-0 Yes [id number] APPLY Univers % ointment 7-07 TOPICALLY ity of 00:00: TO BOTH [place] NOSTRILS Medical EVERY 12 Branch HOURS USING SEPARATE COTTON SWABS FOR 5 DAYS MUPIROCIN 2 2021-0 Yes [id number] APPLY Univers % ointment 7-07 TOPICALLY ity of 00:00: TO BOTH [place] NOSTRILS Medical EVERY 12 Branch HOURS USING SEPARATE COTTON SWABS FOR 5 DAYS MUPIROCIN 2 2021-0 Yes [id number] APPLY Univers % ointment 7-07 TOPICALLY ity of 00:00: TO BOTH [place] NOSTRILS Medical EVERY 12 Branch HOURS USING SEPARATE COTTON SWABS FOR 5 DAYS MUPIROCIN 2 2021-0 Yes [id number] APPLY Univers % ointment 7-07 TOPICALLY ity of 00:00: TO BOTH [place] NOSTRILS Medical EVERY 12 Branch HOURS USING SEPARATE COTTON SWABS FOR 5 DAYS MUPIROCIN 2 2021-0 Yes [id number] APPLY Univers % ointment 7-07 TOPICALLY ity of 00:00: TO BOTH [place] [address] NOSTRILS Medical EVERY 12 Branch HOURS USING SEPARATE COTTON SWABS FOR 5 DAYS MUPIROCIN 2 2021-0 Yes [id number] APPLY Univers % ointment 7-07 TOPICALLY ity of 00:00: TO BOTH [place] [address] NOSTRILS Medical EVERY 12 Branch HOURS USING SEPARATE COTTON SWABS FOR 5 DAYS MUPIROCIN 2 2021-0 Yes [id number] APPLY Univers % ointment 7-07 TOPICALLY ity of 00:00: TO BOTH [place] [address] NOSTRILS Medical EVERY 12 Branch HOURS USING SEPARATE COTTON SWABS FOR 5 DAYS MUPIROCIN 2 2021-0 Yes [id number] APPLY Univers % ointment 7-07 TOPICALLY ity of 00:00: TO BOTH [place] [address] NOSTRILS Medical EVERY 12 Branch HOURS USING SEPARATE COTTON SWABS FOR 5 DAYS MUPIROCIN 2 2021-0 Yes [id number] APPLY Univers % ointment 7-07 TOPICALLY ity of 00:00: TO BOTH [place] [address] NOSTRILS Medical EVERY 12 Branch HOURS USING SEPARATE COTTON SWABS FOR 5 DAYS MUPIROCIN 2 2021-0 Yes [id number] APPLY Univers % ointment 7-07 TOPICALLY ity of 00:00: TO BOTH [place] 00 NOSTRILS Medical EVERY 12 Branch HOURS USING SEPARATE COTTON SWABS FOR 5 DAYS MUPIROCIN 2 2021-0 Yes [id number] APPLY Univers % ointment 7-07 TOPICALLY ity of 00:00: TO BOTH [place] NOSTRILS Medical EVERY 12 Branch HOURS USING SEPARATE COTTON SWABS FOR 5 DAYS MUPIROCIN 2 2021-0 Yes [id number] APPLY Univers % ointment 7-07 TOPICALLY ity of 00:00: TO BOTH [place] NOSTRILS Medical EVERY 12 Branch HOURS USING SEPARATE COTTON SWABS FOR 5 DAYS MUPIROCIN 2 2021-0 Yes [id number] APPLY Univers % ointment 7-07 TOPICALLY ity of 00:00: TO BOTH [place] NOSTRILS Medical EVERY 12 Branch HOURS USING SEPARATE COTTON SWABS FOR 5 DAYS MUPIROCIN 2 2021-0 Yes [id number] APPLY Univers % ointment 7-07 TOPICALLY ity of 00:00: TO BOTH [place] NOSTRILS Medical EVERY 12 Branch HOURS USING SEPARATE COTTON SWABS FOR 5 DAYS MUPIROCIN 2 2021-0 Yes [id number] APPLY Univers % ointment 7-07 TOPICALLY ity of 00:00: TO BOTH [place] NOSTRILS Medical EVERY 12 Branch HOURS USING SEPARATE COTTON SWABS FOR 5 DAYS MUPIROCIN 2 2021-0 Yes [id number] APPLY Univers % ointment 7-07 TOPICALLY ity of 00:00: TO BOTH [place] [address] NOSTRILS Medical EVERY 12 Branch HOURS USING SEPARATE COTTON SWABS FOR 5 DAYS MUPIROCIN 2 2021-0 Yes [id number] APPLY Univers % ointment 7-07 TOPICALLY ity of 00:00: TO BOTH [place] NOSTRILS Medical EVERY 12 Branch HOURS USING SEPARATE COTTON SWABS FOR 5 DAYS MUPIROCIN 2 2021-0 Yes [id number] APPLY Univers % ointment 7-07 TOPICALLY ity of 00:00: TO BOTH [place] [address] NOSTRILS Medical EVERY 12 Branch HOURS USING SEPARATE COTTON SWABS FOR 5 DAYS MUPIROCIN 2 2021-0 Yes [id number] APPLY Univers % ointment 7-07 TOPICALLY ity of 00:00: TO BOTH [place] [address] NOSTRILS Medical EVERY 12 Branch HOURS USING SEPARATE COTTON SWABS FOR 5 DAYS MUPIROCIN 2 2021-0 Yes [id number] APPLY Univers % ointment 7-07 TOPICALLY ity of 00:00: TO BOTH [place] 00 NOSTRILS Medical EVERY 12 Branch HOURS USING SEPARATE COTTON SWABS FOR 5 DAYS MUPIROCIN 2 2021-0 Yes [id number] APPLY Univers % ointment 7-07 TOPICALLY ity of 00:00: TO BOTH [place] NOSTRILS Medical EVERY 12 Branch HOURS USING SEPARATE COTTON SWABS FOR 5 DAYS MUPIROCIN 2 2021-0 Yes [id number] APPLY Univers % ointment 7-07 TOPICALLY ity of 00:00: TO BOTH [place] NOSTRILS Medical EVERY 12 Branch HOURS USING SEPARATE COTTON SWABS FOR 5 DAYS MUPIROCIN 2 2021-0 Yes [id number] APPLY Univers % ointment 7-07 TOPICALLY ity of 00:00: TO BOTH [place] NOSTRILS Medical EVERY 12 Branch HOURS USING SEPARATE COTTON SWABS FOR 5 DAYS MUPIROCIN 2 2021-0 Yes [id number] APPLY Univers % ointment 7-07 TOPICALLY ity of 00:00: TO BOTH [place] NOSTRILS Medical EVERY 12 Branch HOURS USING SEPARATE COTTON SWABS FOR 5 DAYS MUPIROCIN 2 2021-0 Yes [id number] APPLY Univers % ointment 7-07 TOPICALLY ity of 00:00: TO BOTH [place] [address] NOSTRILS Medical EVERY 12 Branch HOURS USING SEPARATE COTTON SWABS FOR 5 DAYS MUPIROCIN 2 2021-0 Yes [id number] APPLY Univers % ointment 7-07 TOPICALLY ity of 00:00: TO BOTH [place] NOSTRILS Medical EVERY 12 Branch HOURS USING SEPARATE COTTON SWABS FOR 5 DAYS MUPIROCIN 2 2021-0 Yes [id number] APPLY Univers % ointment 7-07 TOPICALLY ity of 00:00: TO BOTH [place] 00 NOSTRILS Medical EVERY 12 Branch HOURS USING SEPARATE COTTON SWABS FOR 5 DAYS MUPIROCIN 2 2021-0 Yes [id number] APPLY Univers % ointment 7-07 TOPICALLY ity of 00:00: TO BOTH [place] [address] NOSTRILS Medical EVERY 12 Branch HOURS USING SEPARATE COTTON SWABS FOR 5 DAYS MUPIROCIN 2 2021-0 Yes [id number] APPLY Univers % ointment 7-07 TOPICALLY ity of 00:00: TO BOTH [place] NOSTRILS Medical EVERY 12 Branch HOURS USING SEPARATE COTTON SWABS FOR 5 DAYS MUPIROCIN 2 2021-0 Yes [id number] APPLY Univers % ointment 7-07 TOPICALLY ity of 00:00: TO BOTH [place] 00 NOSTRILS Medical EVERY 12 Branch HOURS USING SEPARATE COTTON SWABS FOR 5 DAYS MUPIROCIN 2 2021-0 Yes [id number] APPLY Univers % ointment 7-07 TOPICALLY ity of 00:00: TO BOTH [place] NOSTRILS Medical EVERY 12 Branch HOURS USING SEPARATE COTTON SWABS FOR 5 DAYS MUPIROCIN 2 2021-0 Yes [id number] APPLY Univers % ointment 7-07 TOPICALLY ity of 00:00: TO BOTH [place] NOSTRILS Medical EVERY 12 Branch HOURS USING SEPARATE COTTON SWABS FOR 5 DAYS MUPIROCIN 2 2021-0 Yes [id number] APPLY Univers % ointment 7-07 TOPICALLY ity of 00:00: TO BOTH [place] NOSTRILS Medical EVERY 12 Branch HOURS USING SEPARATE COTTON SWABS FOR 5 DAYS MUPIROCIN 2 2021-0 Yes [id number] APPLY Univers % ointment 7-07 TOPICALLY ity of 00:00: TO BOTH [place] NOSTRILS Medical EVERY 12 Branch HOURS USING SEPARATE COTTON SWABS FOR 5 DAYS MUPIROCIN 2 2021-0 Yes [id number] APPLY Univers % ointment 7-07 TOPICALLY ity of 00:00: TO BOTH [place] NOSTRILS Medical EVERY 12 Branch HOURS USING SEPARATE COTTON SWABS FOR 5 DAYS MUPIROCIN 2 2021-0 Yes [id number] APPLY Univers % ointment 7-07 TOPICALLY ity of 00:00: TO BOTH [place] NOSTRILS Medical EVERY 12 Branch HOURS USING SEPARATE COTTON SWABS FOR 5 DAYS MUPIROCIN 2 2021-0 Yes [id number] APPLY Univers % ointment 7-07 TOPICALLY ity of 00:00: TO BOTH [place] 00 NOSTRILS Medical EVERY 12 Branch HOURS USING SEPARATE COTTON SWABS FOR 5 DAYS MUPIROCIN 2 2021-0 Yes [id number] APPLY Univers % ointment 7-07 TOPICALLY ity of 00:00: TO BOTH [place] 00 NOSTRILS Medical EVERY 12 Branch HOURS USING SEPARATE COTTON SWABS FOR 5 DAYS MUPIROCIN 2 2021-0 Yes [id number] APPLY Univers % ointment 7-07 TOPICALLY ity of 00:00: TO BOTH [place] 00 NOSTRILS Medical EVERY 12 Branch HOURS USING SEPARATE COTTON SWABS FOR 5 DAYS MUPIROCIN 2 2021-0 Yes [id number] APPLY Univers % ointment 7-07 TOPICALLY ity of 00:00: TO BOTH [place] 00 NOSTRILS Medical EVERY 12 Branch HOURS USING SEPARATE COTTON SWABS FOR 5 DAYS MUPIROCIN 2 2021-0 Yes [id number] APPLY Univers % ointment 7-07 TOPICALLY ity of 00:00: TO BOTH [place] NOSTRILS Medical EVERY 12 Branch HOURS USING SEPARATE COTTON SWABS FOR 5 DAYS MUPIROCIN 2 2021-0 Yes [id number] APPLY Univers % ointment 7-07 TOPICALLY ity of 00:00: TO BOTH [place] NOSTRILS Medical EVERY 12 Branch HOURS USING SEPARATE COTTON SWABS FOR 5 DAYS MUPIROCIN 2 2021-0 Yes [id number] APPLY Univers % ointment 7-07 TOPICALLY ity of 00:00: TO BOTH [place] [address] NOSTRILS Medical EVERY 12 Branch HOURS USING SEPARATE COTTON SWABS FOR 5 DAYS MUPIROCIN 2 2021-0 Yes [id number] APPLY Univers % ointment 7-07 TOPICALLY ity of 00:00: TO BOTH [place] [address] NOSTRILS Medical EVERY 12 Branch HOURS USING SEPARATE COTTON SWABS FOR 5 DAYS MUPIROCIN 2 2021-0 Yes [id number] APPLY Univers % ointment 7-07 TOPICALLY ity of 00:00: TO BOTH [place] [address] NOSTRILS Medical EVERY 12 Branch HOURS USING SEPARATE COTTON SWABS FOR 5 DAYS MUPIROCIN 2 2021-0 Yes [id number] APPLY Univers % ointment 7-07 TOPICALLY ity of 00:00: TO BOTH [place] NOSTRILS Medical EVERY 12 Branch HOURS USING SEPARATE COTTON SWABS FOR 5 DAYS MUPIROCIN 2 2021-0 Yes [id number] APPLY Univers % ointment 7-07 TOPICALLY ity of 00:00: TO BOTH [place] [address] NOSTRILS Medical EVERY 12 Branch HOURS USING SEPARATE COTTON SWABS FOR 5 DAYS MUPIROCIN 2 2021-0 Yes [id number] APPLY Univers % ointment 7-07 TOPICALLY ity of 00:00: TO BOTH [place] [address] NOSTRILS Medical EVERY 12 Branch HOURS USING SEPARATE COTTON SWABS FOR 5 DAYS MUPIROCIN 2 2021-0 Yes [id number] APPLY Univers % ointment 7-07 TOPICALLY ity of 00:00: TO BOTH [place] 00 NOSTRILS Medical EVERY 12 Branch HOURS USING SEPARATE COTTON SWABS FOR 5 DAYS MUPIROCIN 2 2021-0 Yes [id number] APPLY Univers % ointment 7-07 TOPICALLY ity of 00:00: TO BOTH [place] 00 NOSTRILS Medical EVERY 12 Branch HOURS USING SEPARATE COTTON SWABS FOR 5 DAYS MUPIROCIN 2 2021-0 Yes [id number] APPLY Univers % ointment 7-07 TOPICALLY ity of 00:00: TO BOTH [place] NOSTRILS Medical EVERY 12 Branch HOURS USING SEPARATE COTTON SWABS FOR 5 DAYS MUPIROCIN 2 2021-0 Yes [id number] APPLY Univers % ointment 7-07 TOPICALLY ity of 00:00: TO BOTH [place] NOSTRILS Medical EVERY 12 Branch HOURS USING SEPARATE COTTON SWABS FOR 5 DAYS MUPIROCIN 2 2021-0 Yes [id number] APPLY Univers % ointment 7-07 TOPICALLY ity of 00:00: TO BOTH [place] NOSTRILS Medical EVERY 12 Branch HOURS USING SEPARATE COTTON SWABS FOR 5 DAYS MUPIROCIN 2 2021-0 Yes [id number] APPLY Univers % ointment 7-07 TOPICALLY ity of 00:00: TO BOTH [place] [address] NOSTRILS Medical EVERY 12 Branch HOURS USING SEPARATE COTTON SWABS FOR 5 DAYS MUPIROCIN 2 2021-0 Yes [id number] APPLY Univers % ointment 7-07 TOPICALLY ity of 00:00: TO BOTH [place] [address] NOSTRILS Medical EVERY 12 Branch HOURS USING SEPARATE COTTON SWABS FOR 5 DAYS MUPIROCIN 2 2021-0 Yes [id number] APPLY Univers % ointment 7-07 TOPICALLY ity of 00:00: TO BOTH [place] [address] NOSTRILS Medical EVERY 12 Branch HOURS USING SEPARATE COTTON SWABS FOR 5 DAYS MUPIROCIN 2 2021-0 Yes [id number] APPLY Univers % ointment 7-07 TOPICALLY ity of 00:00: TO BOTH [place] [address] NOSTRILS Medical EVERY 12 Branch HOURS USING SEPARATE COTTON SWABS FOR 5 DAYS MUPIROCIN 2 2021-0 Yes [id number] APPLY Univers % ointment 7-07 TOPICALLY ity of 00:00: TO BOTH [place] [address] NOSTRILS Medical EVERY 12 Branch HOURS USING SEPARATE COTTON SWABS FOR 5 DAYS MUPIROCIN 2 2021-0 Yes [id number] APPLY Univers % ointment 7-07 TOPICALLY ity of 00:00: TO BOTH [place] NOSTRILS Medical EVERY 12 Branch HOURS USING SEPARATE COTTON SWABS FOR 5 DAYS MUPIROCIN 2 2021-0 Yes [id number] APPLY Univers % ointment 7-07 TOPICALLY ity of 00:00: TO BOTH [place] NOSTRILS Medical EVERY 12 Branch HOURS USING SEPARATE COTTON SWABS FOR 5 DAYS MUPIROCIN 2 2021-0 Yes [id number] APPLY Univers % ointment 7-07 TOPICALLY ity of 00:00: TO BOTH [place] NOSTRILS Medical EVERY 12 Branch HOURS USING SEPARATE COTTON SWABS FOR 5 DAYS MUPIROCIN 2 2021-0 Yes [id number] APPLY Univers % ointment 7-07 TOPICALLY ity of 00:00: TO BOTH [place] NOSTRILS Medical EVERY 12 Branch HOURS USING SEPARATE COTTON SWABS FOR 5 DAYS MUPIROCIN 2 2021-0 Yes [id number] APPLY Univers % ointment 7-07 TOPICALLY ity of 00:00: TO BOTH [place] NOSTRILS Medical EVERY 12 Branch HOURS USING SEPARATE COTTON SWABS FOR 5 DAYS MUPIROCIN 2 2021-0 Yes [id number] APPLY Univers % ointment 7-07 TOPICALLY ity of 00:00: TO BOTH [place] NOSTRILS Medical EVERY 12 Branch HOURS USING SEPARATE COTTON SWABS FOR 5 DAYS MUPIROCIN 2 2021-0 Yes [id number] APPLY Univers % ointment 7-07 TOPICALLY ity of 00:00: TO BOTH [place] NOSTRILS Medical EVERY 12 Branch HOURS USING SEPARATE COTTON SWABS FOR 5 DAYS MUPIROCIN 2 2021-0 Yes [id number] APPLY Univers % ointment 7-07 TOPICALLY ity of 00:00: TO BOTH [place] NOSTRILS Medical EVERY 12 Branch HOURS USING SEPARATE COTTON SWABS FOR 5 DAYS MUPIROCIN 2 2021-0 Yes [id number] APPLY Univers % ointment 7-07 TOPICALLY ity of 00:00: TO BOTH [place] [facility] EVERY 12 Branch HOURS USING SEPARATE COTTON SWABS FOR 5 DAYS MUPIROCIN 2 2021-0 Yes [id number] APPLY [facility] % ointment 7-07 TOPICALLY ity of 00:00: TO BOTH [place] [id number] [facility] EVERY 12 Branch HOURS USING SEPARATE COTTON SWABS FOR 5 DAYS MUPIROCIN 2 2021-0 Yes [id number] APPLY [facility] % ointment 7-07 TOPICALLY ity of 00:00: TO [facility] [place] [facility] EVERY 12 [facility] HOURS USING SEPARATE COTTON SWABS FOR 5 DAYS MUPIROCIN 2 2021-0 Yes [id number] APPLY [facility] % ointment 7-07 TOPICALLY ity of 00:00: TO BOTH [place] [facility] EVERY 12 Branch HOURS USING SEPARATE COTTON SWABS FOR 5 DAYS MUPIROCIN 2 2021-0 Yes [id number] APPLY [facility] % ointment 7-07 TOPICALLY ity of 00:00: TO BOTH [place] [facility] EVERY 12 Branch HOURS USING SEPARATE COTTON SWABS FOR 5 DAYS MUPIROCIN 2 2021-0 Yes [id number] APPLY [facility] % ointment 7-07 TOPICALLY ity of 00:00: TO [facility]OTH [place] [facility] EVERY 12 Branch HOURS USING SEPARATE COTTON SWABS FOR 5 DAYS MUPIROCIN 2 2021-0 Yes [id number] APPLY [facility] % ointment 7-07 TOPICALLY ity of 00:00: TO BOTH [place] [facility] EVERY 12 Branch HOURS USING SEPARATE COTTON SWABS FOR 5 DAYS MUPIROCIN 2 2021-0 Yes [id number] APPLY [facility] % ointment 7-07 TOPICALLY ity of 00:00: TO BOTH [place] [address] [facility] EVERY 12 Branch HOURS USING SEPARATE COTTON SWABS FOR 5 DAYS MUPIROCIN 2 2021-0 Yes [id number] APPLY [facility] % ointment 7-07 TOPICALLY ity of 00:00: TO BOTH [place] [facility] EVERY 12 Branch HOURS USING SEPARATE COTTON SWABS FOR 5 DAYS MUPIROCIN 2 2021-0 Yes [id number] APPLY [facility] % ointment 7-07 TOPICALLY ity of 00:00: TO BOTH [place] [address] [facility] EVERY 12 Branch HOURS USING SEPARATE COTTON SWABS FOR 5 DAYS MUPIROCIN 2 2021-0 Yes [id number] APPLY [facility] % ointment 7-07 TOPICALLY ity of 00:00: TO BOTH [place] [address] [facility] EVERY 12 Branch HOURS USING SEPARATE COTTON SWABS FOR 5 DAYS MUPIROCIN 2 2021-0 Yes [id number] APPLY [facility] % ointment 7-07 TOPICALLY ity of 00:00: TO BOTH [place] [facility] EVERY 12 Branch HOURS USING SEPARATE COTTON SWABS FOR 5 DAYS MUPIROCIN 2 2021-0 Yes [id number] APPLY [facility] % ointment 7-07 TOPICALLY ity of 00:00: TO BOTH [place] 00 NOSTRILS Medical EVERY 12 Branch HOURS USING SEPARATE COTTON SWABS FOR 5 DAYS MUPIROCIN 2 2021-0 Yes [id number] APPLY [facility] % ointment 7-07 TOPICALLY ity of 00:00: TO BOTH [place] NOSTRILS Medical EVERY 12 Branch HOURS USING SEPARATE COTTON SWABS FOR 5 DAYS MUPIROCIN 2 2021-0 Yes [id number] APPLY [facility] % ointment 7-07 TOPICALLY ity of 00:00: TO BOTH [place] [address] NOSTRILS Medical EVERY 12 Branch HOURS USING SEPARATE COTTON SWABS FOR 5 DAYS MUPIROCIN 2 2021-0 Yes [id number] APPLY [facility] % ointment 7-07 TOPICALLY ity of 00:00: TO BOTH [place] NOSTRILS Medical EVERY 12 Branch HOURS USING SEPARATE COTTON SWABS FOR 5 DAYS MUPIROCIN 2 2021-0 Yes [id number] APPLY [facility] % ointment 7-07 TOPICALLY ity of 00:00: TO BOTH [place] [address] NOSTRILS Medical EVERY 12 Branch HOURS USING SEPARATE COTTON SWABS FOR 5 DAYS MUPIROCIN 2 2021-0 Yes [id number] APPLY [facility] % ointment 7-07 TOPICALLY ity of 00:00: TO BOTH [place] [address] NOSTRILS Medical EVERY 12 Branch HOURS USING SEPARATE COTTON SWABS FOR 5 DAYS MUPIROCIN 2 2021-0 Yes [id number] APPLY [facility] % ointment 7-07 TOPICALLY ity of 00:00: TO BOTH [place] NOSTRILS Medical EVERY 12 Branch HOURS USING SEPARATE COTTON SWABS FOR 5 DAYS MUPIROCIN 2 2021-0 Yes [id number] APPLY [facility] % ointment 7-07 TOPICALLY ity of 00:00: TO BOTH [place] [address] NOSTRILS Medical EVERY 12 Branch HOURS USING SEPARATE COTTON SWABS FOR 5 DAYS MUPIROCIN 2 2021-0 Yes [id number] APPLY [facility] % ointment 7-07 TOPICALLY ity of 00:00: TO BOTH [place] [address] NOSTRILS Medical EVERY 12 Branch HOURS USING SEPARATE COTTON SWABS FOR 5 DAYS MUPIROCIN 2 2021-0 Yes [id number] APPLY [facility] % ointment 7-07 TOPICALLY ity of 00:00: TO BOTH [place] 00 NOSTRILS Medical EVERY 12 Branch HOURS USING SEPARATE COTTON SWABS FOR 5 DAYS MUPIROCIN 2 2021-0 Yes [id number] APPLY [facility] % ointment 7-07 TOPICALLY ity of 00:00: TO BOTH [place] 00 NOSTRILS Medical EVERY 12 Branch HOURS USING SEPARATE COTTON SWABS FOR 5 DAYS MUPIROCIN 2 2021-0 Yes [id number] APPLY [facility] % ointment 7-07 TOPICALLY ity of 00:00: TO BOTH [place] NOSTRILS Medical EVERY 12 Branch HOURS USING SEPARATE COTTON SWABS FOR 5 DAYS MUPIROCIN 2 2021-0 Yes [id number] APPLY [facility] % ointment 7-07 TOPICALLY ity of 00:00: TO BOTH [place] NOSTRILS Medical EVERY 12 Branch HOURS USING SEPARATE COTTON SWABS FOR 5 DAYS MUPIROCIN 2 2021-0 Yes [id number] APPLY [facility] % ointment 7-07 TOPICALLY ity of 00:00: TO BOTH [place] [address] NOSTRILS Medical EVERY 12 Branch HOURS USING SEPARATE COTTON SWABS FOR 5 DAYS MUPIROCIN 2 2021-0 Yes [id number] APPLY [facility] % ointment 7-07 TOPICALLY ity of 00:00: TO BOTH [place] [address] NOSTRILS Medical EVERY 12 Branch HOURS USING SEPARATE COTTON SWABS FOR 5 DAYS MUPIROCIN 2 2021-0 Yes [id number] APPLY [facility] % ointment 7-07 TOPICALLY ity of 00:00: TO BOTH [place] [address] NOSTRILS Medical EVERY 12 Branch HOURS USING SEPARATE COTTON SWABS FOR 5 DAYS MUPIROCIN 2 2021-0 Yes [id number] APPLY [facility] % ointment 7-07 TOPICALLY ity of 00:00: TO BOTH [place] NOSTRILS Medical EVERY 12 Branch HOURS USING SEPARATE COTTON SWABS FOR 5 DAYS MUPIROCIN 2 2021-0 Yes [id number] APPLY [facility] % ointment 7-07 TOPICALLY ity of 00:00: TO BOTH [place] [address] NOSTRILS Medical EVERY 12 Branch HOURS USING SEPARATE COTTON SWABS FOR 5 DAYS MUPIROCIN 2 2021-0 Yes [id number] APPLY [facility] % ointment 7-07 TOPICALLY ity of 00:00: TO BOTH [place] [address] NOSTRILS Medical EVERY 12 Branch HOURS USING SEPARATE COTTON SWABS FOR 5 DAYS MUPIROCIN 2 2021-0 Yes [id number] APPLY [facility] % ointment 7-07 TOPICALLY ity of 00:00: TO BOTH [place] 00 NOSTRILS Medical EVERY 12 Branch HOURS USING SEPARATE COTTON SWABS FOR 5 DAYS MUPIROCIN 2 2021-0 Yes [id number] APPLY [facility] % ointment 7-07 TOPICALLY ity of 00:00: TO BOTH [place] NOSTRILS Medical EVERY 12 Branch HOURS USING SEPARATE COTTON SWABS FOR 5 DAYS MUPIROCIN 2 2021-0 Yes [id number] APPLY [facility] % ointment 7-07 TOPICALLY ity of 00:00: TO BOTH [place] NOSTRILS Medical EVERY 12 Branch HOURS USING SEPARATE COTTON SWABS FOR 5 DAYS MUPIROCIN 2 2021-0 Yes [id number] APPLY [facility] % ointment 7-07 TOPICALLY ity of 00:00: TO BOTH [place] NOSTRILS Medical EVERY 12 Branch HOURS USING SEPARATE COTTON SWABS FOR 5 DAYS MUPIROCIN 2 2021-0 Yes [id number] APPLY [facility] % ointment 7-07 TOPICALLY ity of 00:00: TO BOTH [place] NOSTRILS Medical EVERY 12 Branch HOURS USING SEPARATE COTTON SWABS FOR 5 DAYS MUPIROCIN 2 2021-0 Yes [id number] APPLY [facility] % ointment 7-07 TOPICALLY ity of 00:00: TO BOTH [place] [address] NOSTRILS Medical EVERY 12 Branch HOURS USING SEPARATE COTTON SWABS FOR 5 DAYS MUPIROCIN 2 2021-0 Yes [id number] APPLY [facility] % ointment 7-07 TOPICALLY ity of 00:00: TO BOTH [place] NOSTRILS Medical EVERY 12 Branch HOURS USING SEPARATE COTTON SWABS FOR 5 DAYS MUPIROCIN 2 2021-0 Yes [id number] APPLY [facility] % ointment 7-07 TOPICALLY ity of 00:00: TO BOTH [place] [address] NOSTRILS Medical EVERY 12 Branch HOURS USING SEPARATE COTTON SWABS FOR 5 DAYS MUPIROCIN 2 2021-0 Yes [id number] APPLY [facility] % ointment 7-07 TOPICALLY ity of 00:00: TO BOTH [place] [address] NOSTRILS Medical EVERY 12 Branch HOURS USING SEPARATE COTTON SWABS FOR 5 DAYS MUPIROCIN 2 2021-0 Yes [id number] APPLY [facility] % ointment 7-07 TOPICALLY ity of 00:00: TO BOTH [place] NOSTRILS Medical EVERY 12 Branch HOURS USING SEPARATE COTTON SWABS FOR 5 DAYS MUPIROCIN 2 2021-0 Yes [id number] APPLY [facility] % ointment 7-07 TOPICALLY ity of 00:00: TO BOTH [place] 00 NOSTRILS Medical EVERY 12 Branch HOURS USING SEPARATE COTTON SWABS FOR 5 DAYS MUPIROCIN 2 2021-0 Yes [id number] APPLY [facility] % ointment 7-07 TOPICALLY ity of 00:00: TO BOTH [place] NOSTRILS Medical EVERY 12 Branch HOURS USING SEPARATE COTTON SWABS FOR 5 DAYS MUPIROCIN 2 2021-0 Yes [id number] APPLY [facility] % ointment 7-07 TOPICALLY ity of 00:00: TO BOTH [place] NOSTRILS Medical EVERY 12 Branch HOURS USING SEPARATE COTTON SWABS FOR 5 DAYS MUPIROCIN 2 2021-0 Yes [id number] APPLY [facility] % ointment 7-07 TOPICALLY ity of 00:00: TO BOTH [place] NOSTRILS Medical EVERY 12 Branch HOURS USING SEPARATE COTTON SWABS FOR 5 DAYS MUPIROCIN 2 2021-0 Yes [id number] APPLY [facility] % ointment 7-07 TOPICALLY ity of 00:00: TO BOTH [place] NOSTRILS Medical EVERY 12 Branch HOURS USING SEPARATE COTTON SWABS FOR 5 DAYS MUPIROCIN 2 2021-0 Yes [id number] APPLY [facility] % ointment 7-07 TOPICALLY ity of 00:00: TO BOTH [place] NOSTRILS Medical EVERY 12 Branch HOURS USING SEPARATE COTTON SWABS FOR 5 DAYS MUPIROCIN 2 2021-0 Yes [id number] APPLY [facility] % ointment 7-07 TOPICALLY ity of 00:00: TO BOTH [place] NOSTRILS Medical EVERY 12 Branch HOURS USING SEPARATE COTTON SWABS FOR 5 DAYS MUPIROCIN 2 2021-0 Yes [id number] APPLY [facility] % ointment 7-07 TOPICALLY ity of 00:00: TO BOTH [place] NOSTRILS Medical EVERY 12 Branch HOURS USING SEPARATE COTTON SWABS FOR 5 DAYS MUPIROCIN 2 2021-0 Yes [id number] APPLY [facility] % ointment 7-07 TOPICALLY ity of 00:00: TO BOTH [place] NOSTRILS Medical EVERY 12 Branch HOURS USING SEPARATE COTTON SWABS FOR 5 DAYS MUPIROCIN 2 2021-0 Yes [id number] APPLY [facility] % ointment 7-07 TOPICALLY ity of 00:00: TO BOTH [place] [address] NOSTRILS Medical EVERY 12 Branch HOURS USING SEPARATE COTTON SWABS FOR 5 DAYS MUPIROCIN 2 2021-0 Yes [id number] APPLY [facility] % ointment 7-07 TOPICALLY ity of 00:00: TO BOTH [place] NOSTRILS Medical EVERY 12 Branch HOURS USING SEPARATE COTTON SWABS FOR 5 DAYS MUPIROCIN 2 2021-0 Yes [id number] APPLY [facility] % ointment 7-07 TOPICALLY ity of 00:00: TO BOTH [place] NOSTRILS Medical EVERY 12 Branch HOURS USING SEPARATE COTTON SWABS FOR 5 DAYS MUPIROCIN 2 2021-0 Yes [id number] APPLY [facility] % ointment 7-07 TOPICALLY ity of 00:00: TO BOTH [place] NOSTRILS Medical EVERY 12 Branch HOURS USING SEPARATE COTTON SWABS FOR 5 DAYS MUPIROCIN 2 2021-0 Yes [id number] APPLY [facility] % ointment 7-07 TOPICALLY ity of 00:00: TO BOTH [place] NOSTRILS Medical EVERY 12 Branch HOURS USING SEPARATE COTTON SWABS FOR 5 DAYS MUPIROCIN 2 2021-0 Yes [id number] APPLY [facility] % ointment 7-07 TOPICALLY ity of 00:00: TO BOTH [place] NOSTRILS Medical EVERY 12 Branch HOURS USING SEPARATE COTTON SWABS FOR 5 DAYS MUPIROCIN 2 2021-0 Yes [id number] APPLY [facility] % ointment 7-07 TOPICALLY ity of 00:00: TO BOTH [place] NOSTRILS Medical EVERY 12 Branch HOURS USING SEPARATE COTTON SWABS FOR 5 DAYS MUPIROCIN 2 2021-0 Yes [id number] APPLY [facility] % ointment 7-07 TOPICALLY ity of 00:00: TO BOTH [place] NOSTRILS Medical EVERY 12 Branch HOURS USING SEPARATE COTTON SWABS FOR 5 DAYS MUPIROCIN 2 2021-0 Yes [id number] APPLY [facility] % ointment 7-07 TOPICALLY ity of 00:00: TO BOTH [place] NOSTRILS Medical EVERY 12 Branch HOURS USING SEPARATE COTTON SWABS FOR 5 DAYS MUPIROCIN 2 2021-0 Yes [id number] APPLY [facility] % ointment 7-07 TOPICALLY ity of 00:00: TO BOTH [place] [address] NOSTRILS Medical EVERY 12 Branch HOURS USING SEPARATE COTTON SWABS FOR 5 DAYS MUPIROCIN 2 2021-0 Yes [id number] APPLY [facility] % ointment 7-07 TOPICALLY ity of 00:00: TO BOTH [place] NOSTRILS Medical EVERY 12 Branch HOURS USING SEPARATE COTTON SWABS FOR 5 DAYS MUPIROCIN 2 2021-0 Yes [id number] APPLY [facility] % ointment 7-07 TOPICALLY ity of 00:00: TO BOTH [place] 00 NOSTRILS Medical EVERY 12 Branch HOURS USING SEPARATE COTTON SWABS FOR 5 DAYS MUPIROCIN 2 2021-0 Yes [id number] APPLY [facility] % ointment 7-07 TOPICALLY ity of 00:00: TO BOTH [place] 00 NOSTRILS Medical EVERY 12 Branch HOURS USING SEPARATE COTTON SWABS FOR 5 DAYS MUPIROCIN 2 2021-0 Yes [id number] APPLY [facility] % ointment 7-07 TOPICALLY ity of 00:00: TO BOTH [place] 00 NOSTRILS Medical EVERY 12 Branch HOURS USING SEPARATE COTTON SWABS FOR 5 DAYS MUPIROCIN 2 2021-0 Yes [id number] APPLY [facility] % ointment 7-07 TOPICALLY ity of 00:00: TO BOTH [place] 00 NOSTRILS Medical EVERY 12 Branch HOURS USING SEPARATE COTTON SWABS FOR 5 DAYS MUPIROCIN 2 2021-0 Yes [id number] APPLY [facility] % ointment 7-07 TOPICALLY ity of 00:00: TO BOTH [place] 00 NOSTRILS Medical EVERY 12 Branch HOURS USING SEPARATE COTTON SWABS FOR 5 DAYS MUPIROCIN 2 2021-0 Yes [id number] APPLY [facility] % ointment 7-07 TOPICALLY ity of 00:00: TO BOTH [place] 00 NOSTRILS Medical EVERY 12 Branch HOURS USING SEPARATE COTTON SWABS FOR 5 DAYS MUPIROCIN 2 2021-0 Yes [id number] APPLY [facility] % ointment 7-07 TOPICALLY ity of 00:00: TO BOTH [place] 00 NOSTRILS Medical EVERY 12 Branch HOURS USING SEPARATE COTTON SWABS FOR 5 DAYS MUPIROCIN 2 2021-0 Yes [id number] APPLY [facility] % ointment 7-07 TOPICALLY ity of 00:00: TO BOTH [place] 00 NOSTRILS Medical EVERY 12 Branch HOURS USING SEPARATE COTTON SWABS FOR 5 DAYS MUPIROCIN 2 2021-0 2022- No [id number] APPLY [facility] % ointment - 05-26 TOPICALLY ity of 00:00: 00:00 TO BOTH [place] 00 :00 NOSTRILS Medical EVERY 12 Branch HOURS USING SEPARATE COTTON SWABS FOR 5 DAYS LATUDA 40 2021-0 2021- No [id number] 40mg TAKE 1 [facility] mg tablet 7-07 08-25 TABLET BY ity of 00:00: 00:00 MOUTH AT [place] 00 :00 BEDTIME Medical Branch LATUDA 40 2021-2021- No [id number] 40mg TAKE 1 [facility] mg tablet 09-26- TABLET BY ity of 00:00: 00:00 MOUTH AT [place] 00 :00 BEDTIME Medical Branch BACLOFEN 20 Yes [id number] TAKE 1 [facility] mg tablet 6-20 TABLET BY ity o f 00:00: MOUTH 3 [place] 00 TIMES Medical DAILY *MAY Branch IMPAIR ALERTNESS* * BACLOFEN 20 Yes [id number] TAKE 1 [facility] mg tablet 6-20 TABLET BY ity o f 00:00: MOUTH 3 [place] 00 TIMES Medical DAILY *MAY Branch IMPAIR ALERTNESS* * BACLOFEN 20 Yes [id number] TAKE 1 [facility] mg tablet 6-20 TABLET BY ity o f 00:00: MOUTH 3 [place] 00 TIMES Medical DAILY *MAY Branch IMPAIR ALERTNESS* * BACLOFEN 20 Yes [id number] TAKE 1 [facility] mg tablet 6-20 TABLET BY ity o f 00:00: MOUTH 3 [place] 00 TIMES Medical DAILY *MAY Branch IMPAIR ALERTNESS* * BACLOFEN 20 Yes [id number] TAKE 1 [facility] mg tablet 6-20 TABLET BY ity o f 00:00: MOUTH 3 [place] 00 TIMES Medical DAILY *MAY Branch IMPAIR ALERTNESS* * BACLOFEN 20 2021- No [id number] TAKE 1 [facility] mg tablet 6-20 -30 TABLET BY ity of 00:00: 00:00 MOUTH 3 [place] 00 :00 TIMES Medical DAILY *MAY Branch IMPAIR ALERTNESS* * ONETOUCH Yes [id number] USE Un [facility] VERIO TEST 5-12 DIRECTED ity o f STRIPS 00:00: FOR THREE [place] strip 00 TIMES A Medical DAY BLOOD Branch GLUCOSE MONITORING ONETOUCH Yes [id number] USE Un [facility] VERIO TEST 5-12 DIRECTED ity o f STRIPS 00:00: FOR THREE [place] strip 00 TIMES A Medical DAY BLOOD Branch GLUCOSE MONITORING ONETOUCH Yes [id number] USE Un [facility] VERIO TEST 5-12 DIRECTED ity o f STRIPS 00:00: FOR THREE [place] strip 00 TIMES A Medical DAY BLOOD Branch GLUCOSE MONITORING ONETOUCH Yes [id number] USE Un [facility] VERIO TEST 5-12 DIRECTED ity o f STRIPS 00:00: FOR THREE [place] strip 00 TIMES A Medical DAY BLOOD Branch GLUCOSE MONITORING ONETOUCH 2022-0 Yes [id number] USE Un [facility] VERIO TEST 5-12 DIRECTED ity o f STRIPS 00:00: FOR THREE [place] strip 00 TIMES A Medical DAY BLOOD Branch GLUCOSE MONITORING ONETOUCH 2022-0 Yes [id number] USE Un [facility] VERIO TEST 5-12 DIRECTED ity o f STRIPS 00:00: FOR THREE [place] strip 00 TIMES A Medical DAY BLOOD Branch GLUCOSE MONITORING ONETOUCH 2022-0 Yes [id number] USE Un [facility] VERIO TEST 5-12 DIRECTED ity o f STRIPS 00:00: FOR THREE [place] strip 00 TIMES A Medical DAY BLOOD Branch GLUCOSE MONITORING ONETOUCH 2021-0 Yes [id number] USE Un [facility] VERIO TEST 5-12 DIRECTED ity o f STRIPS 00:00: FOR THREE [place] strip 00 TIMES A Medical DAY BLOOD Branch GLUCOSE MONITORING ONETOUCH 2022-0 Yes [id number] USE Un [facility] VERIO TEST 5-12 DIRECTED ity o f STRIPS 00:00: FOR THREE [place] strip 00 TIMES A Medical DAY BLOOD Branch GLUCOSE MONITORING ONETOUCH 2022-0 Yes [id number] USE Un [facility] VERIO TEST 5-12 DIRECTED ity o f STRIPS 00:00: FOR THREE [place] strip 00 TIMES A Medical DAY BLOOD Branch GLUCOSE MONITORING ONETOUCH 2022-0 Yes [id number] USE Un [facility] VERIO TEST 5-12 DIRECTED ity o f STRIPS 00:00: FOR THREE [place] strip 00 TIMES A Medical DAY BLOOD Branch GLUCOSE MONITORING ONETOUCH 2022-0 Yes [id number] USE Un [facility] VERIO TEST 5-12 DIRECTED ity o f STRIPS 00:00: FOR THREE [place] strip 00 TIMES A Medical DAY BLOOD Branch GLUCOSE MONITORING ONETOUCH 2022-0 Yes [id number] USE Un [facility] VERIO TEST 5-12 DIRECTED ity o f STRIPS 00:00: FOR THREE [place] strip 00 TIMES A Medical DAY BLOOD Branch GLUCOSE MONITORING ONETOUCH 2022-0 Yes [id number] USE Un [facility] VERIO TEST 5-12 DIRECTED ity o f STRIPS 00:00: FOR THREE [place] strip 00 TIMES A Medical DAY BLOOD Branch GLUCOSE MONITORING ONETOUCH 2022-0 Yes [id number] USE Un [facility] VERIO TEST 5-12 DIRECTED ity o f STRIPS 00:00: FOR THREE [place] strip 00 TIMES A Medical DAY BLOOD Branch GLUCOSE MONITORING ONETOUCH 2021-0 Yes [id number] USE Un [facility] VERIO TEST 5-12 DIRECTED ity o f STRIPS 00:00: FOR THREE [place] strip 00 TIMES A Medical DAY BLOOD Branch GLUCOSE MONITORING ONETOUCH 2021-0 Yes [id number] USE Un [facility] VERIO TEST 5-12 DIRECTED ity o f STRIPS 00:00: FOR THREE [place] strip 00 TIMES A Medical DAY BLOOD Branch GLUCOSE MONITORING ONETOUCH 2021-0 Yes [id number] USE Un [facility] VERIO TEST 5-12 DIRECTED ity o f STRIPS 00:00: FOR THREE [place] strip 00 TIMES A Medical DAY BLOOD Branch GLUCOSE MONITORING ONETOUCH 2021-0 2021- No [id number] USE U nivers VERIO TEST 5-12 10-10 DIRECTED ity of STRIPS 00:00: 00:00 FOR THREE [place] strip 00 :00 TIMES A Medical DAY BLOOD Branch GLUCOSE MONITORING naloxone 2020-03 Yes [id number] 1{spray Use 1 [facility] mg/actuatio 1-24 } [place] in [facility] n [place] 00:00: each nostril Medical once daily Branch as needed for Other (overdose) . naloxone 2020-03 Yes [id number] 1{spray Use 1 [facility] mg/actuatio 1-24 } [place] in [facility] n [place] 00:00: each nostril Medical once daily Branch as needed for Other (overdose) . naloxone 2020-03 Yes [id number] 1{spray Use 1 [facility] mg/actuatio 1-24 } [place] in [facility] n [place] 00:00: each nostril Medical once daily Branch as needed for Other (overdose) . naloxone 2020-03 Yes [id number] 1{spray Use 1 [facility] mg/actuatio 1-24 } [place] in [facility] n [place] 00:00: each 00 nostril Medical once daily Branch as needed for Other (overdose) . naloxone 2020-03 Yes [id number] 1{spray Use 1 [facility] mg/actuatio 1-24 } [place] in [facility] n [place] 00:00: each nostril Medical once daily Branch as needed for Other (overdose) . naloxone 2020-03 Yes [id number] 1{spray Use 1 [facility] mg/actuatio 1-24 } [place] in [facility] n [place] 00:00: each nostril Medical once daily Branch as needed for Other (overdose) . naloxone 2020-03 Yes [id number] 1{spray Use 1 [facility] mg/actuatio 1-24 } [place] in [facility] n [place] 00:00: each nostril Medical once daily Branch as needed for Other (overdose) . naloxone 2020-03 Yes [id number] 1{spray Use 1 [facility] mg/actuatio 1-24 } [place] in [facility] n [place] 00:00: each nostril Medical once daily Branch as needed for Other (overdose) . naloxone 2020-03 Yes [id number] 1{spray Use 1 [facility] mg/actuatio 1-24 } [place] in [facility] n [place] 00:00: each nostril Medical once daily Branch as needed for Other (overdose) . naloxone 2020-03 Yes [id number] 1{spray Use 1 [facility] mg/actuatio 1-24 } [place] in [facility] n [place] 00:00: each nostril Medical once daily Branch as needed for Other (overdose) . naloxone 2020-03 Yes [id number] 1{spray Use 1 [facility] mg/actuatio 1-24 } [place] in [facility] n [place] 00:00: each nostril Medical once daily Branch as needed for Other (overdose) . naloxone 2020-03 Yes [id number] 1{spray Use 1 [facility] mg/actuatio 1-24 } [place] in [facility] n [place] 00:00: each nostril Medical once daily Branch as needed for Other (overdose) . naloxone 2020-03 Yes [id number] 1{spray Use 1 [facility] mg/actuatio 1-24 } [place] in [facility] n [place] 00:00: each nostril Medical once daily Branch as needed for Other (overdose) . naloxone 2020-03 Yes [id number] 1{spray Use 1 [facility] mg/actuatio 1-24 } [place] in [facility] n [place] 00:00: each [place] 00 nostril Medical once daily Branch as needed for Other (overdose) . naloxone 2020-03 Yes [id number] 1{spray Use 1 [facility] mg/actuatio 1-24 } [place] in [facility] n [place] 00:00: each 00 nostril Medical once daily Branch as needed for Other (overdose) . naloxone 2020-03 Yes [id number] 1{spray Use 1 [facility] mg/actuatio 1-24 } [place] in [facility] n [place] 00:00: each 00 nostril Medical once daily Branch as needed for Other (overdose) . naloxone 2020-03 Yes [id number] 1{spray Use 1 [facility] mg/actuatio 1-24 } [place] in [facility] n [place] 00:00: each nostril Medical once daily Branch as needed for Other (overdose) . naloxone 2020-03 Yes [id number] 1{spray Use 1 [facility] mg/actuatio 1-24 } [place] in [facility] n [place] 00:00: each nostril Medical once daily Branch as needed for Other (overdose) . naloxone 2020-03 Yes [id number] 1{spray Use 1 [facility] mg/actuatio 1-24 } [place] in [facility] n [place] 00:00: each nostril Medical once daily Branch as needed for Other (overdose) . naloxone 2020-03 Yes [id number] 1{spray Use 1 [facility] mg/actuatio 1-24 } [place] in [facility] n [place] 00:00: each nostril Medical once daily Branch as needed for Other (overdose) . naloxone 2020-03 Yes [id number] 1{spray Use 1 [facility] mg/actuatio 1-24 } [place] in [facility] n [place] 00:00: each nostril Medical once daily Branch as needed for Other (overdose) . naloxone 2020-03 Yes [id number] 1{spray Use 1 [facility] mg/actuatio 1-24 } [place] in [facility] n [place] 00:00: each nostril Medical once daily Branch as needed for Other (overdose) . naloxone 2020-03 Yes [id number] 1{spray Use 1 [facility] mg/actuatio 1-24 } [place] in [facility] n [place] 00:00: each 00 nostril Medical once daily Branch as needed for Other (overdose) . naloxone 2020-03 Yes [id number] 1{spray Use 1 [facility] mg/actuatio 1-24 } [place] in [facility] n [place] 00:00: each 00 nostril Medical once daily Branch as needed for Other (overdose) . naloxone 2020-03 Yes [id number] 1{spray Use 1 [facility] mg/actuatio 1-24 } [place] in [facility] n [place] 00:00: each 00 nostril Medical once daily Branch as needed for Other (overdose) . naloxone 2020-03 Yes [id number] 1{spray Use 1 [facility] mg/actuatio 1-24 } [place] in [facility] n [place] 00:00: each nostril Medical once daily Branch as needed for Other (overdose) . naloxone 2020-03 Yes [id number] 1{spray Use 1 [facility] mg/actuatio 1-24 } [place] in [facility] n [place] 00:00: each nostril Medical once daily Branch as needed for Other (overdose) . naloxone 2020-03 Yes [id number] 1{spray Use 1 [facility] mg/actuatio 1-24 } [place] in [facility] n [place] 00:00: each nostril Medical once daily Branch as needed for Other (overdose) . naloxone 2020-03 Yes [id number] 1{spray Use 1 [facility] mg/actuatio 1-24 } [place] in [facility] n [place] 00:00: each nostril Medical once daily Branch as needed for Other (overdose) . naloxone 2020-03 Yes [id number] 1{spray Use 1 [facility] mg/actuatio 1-24 } [place] in [facility] n [place] 00:00: each 00 nostril Medical once daily Branch as needed for Other (overdose) . naloxone 2020-03 Yes [id number] 1{spray Use 1 [facility] mg/actuatio 1-24 } [place] in [facility] n [place] 00:00: each 00 nostril Medical once daily Branch as needed for Other (overdose) . naloxone 2020-03 Yes [id number] 1{spray Use 1 [facility] mg/actuatio 1-24 } [place] in [facility] n [place] 00:00: each 00 nostril Medical once daily Branch as needed for Other (overdose) . naloxone 2020-03 Yes [id number] 1{spray Use 1 [facility] mg/actuatio 1-24 } [place] in [facility] n [place] 00:00: each 00 nostril Medical once daily Branch as needed for Other (overdose) . naloxone 2020-03 Yes [id number] 1{spray Use 1 [facility] mg/actuatio 1-24 } [place] in [facility] n [place] 00:00: each 00 nostril Medical once daily Branch as needed for Other (overdose) . naloxone 2020-03 Yes [id number] 1{spray Use 1 [facility] mg/actuatio 1-24 } [place] in [facility] n [place] 00:00: each nostril Medical once daily Branch as needed for Other (overdose) . naloxone 2020-03 Yes [id number] 1{spray Use 1 [facility] mg/actuatio 1-24 } [place] in [facility] n [place] 00:00: each nostril Medical once daily Branch as needed for Other (overdose) . naloxone 2020-03 Yes [id number] 1{spray Use 1 [facility] mg/actuatio 1-24 } [place] in [facility] [place] 00:00: each nostril Medical once daily Branch as needed for Other (overdose) . naloxone 2020-03 Yes [id number] 1{spray Use 1 [facility] mg/actuatio 1-24 } [place] in [facility] n [place] 00:00: each nostril Medical once daily Branch as needed for Other (overdose) . naloxone 2020-03 Yes [id number] 1{spray Use 1 [facility] mg/actuatio 1-24 } [place] in [facility] [place] 00:00: each nostril Medical once daily Branch as needed for Other (overdose) . naloxone 2020-03 Yes [id number] 1{spray Use 1 [facility] mg/actuatio 1-24 } [place] in [facility] [place] 00:00: each 00 nostril Medical once daily Branch as needed for Other (overdose) . naloxone 2020-03 Yes [id number] 1{spray Use 1 [facility] mg/actuatio 1-24 } [place] in [facility] [place] 00:00: each 00 nostril Medical once daily Branch as needed for Other (overdose) . naloxone 2020-03 Yes [id number] 1{spray Use 1 [facility] mg/actuatio 1-24 } [place] in [facility] [place] 00:00: each 00 nostril Medical once daily Branch as needed for Other (overdose) . naloxone 2020-03 Yes [id number] 1{spray Use 1 [facility] mg/actuatio 1-24 } [place] in [facility] [place] 00:00: each 00 nostril Medical once daily Branch as needed for Other (overdose) . naloxone 2020-03 Yes [id number] 1{spray Use 1 [facility] mg/actuatio 1-24 } [place] in [facility] n [place] 00:00: each nostril Medical once daily Branch as needed for Other (overdose) . naloxone 2020-03 Yes [id number] 1{spray Use 1 [facility] mg/actuatio 1-24 } [place] in [facility] n [place] 00:00: each nostril Medical once daily Branch as needed for Other (overdose) . naloxone 2020-03 Yes [id number] 1{spray Use 1 [facility] mg/actuatio 1-24 } [place] in [facility] [place] 00:00: each nostril Medical once daily Branch as needed for Other (overdose) . naloxone 2020-03 Yes [id number] 1{spray Use 1 [facility] mg/actuatio 1-24 } [place] [facility] [place] 00:00: each 00 nostril Medical once daily Branch as needed for Other (overdose) . naloxone 2020-03 Yes [id number] 1{spray Use 1 [facility] mg/actuatio 1-24 } [place] [facility] [place] 00:00: each 00 nostril Medical once daily Branch as needed for Other (overdose) . naloxone 2020-03 Yes [id number] 1{spray Use 1 [facility] mg/actuatio 1-24 } [place] [facility] [place] 00:00: each 00 nostril Medical once daily Branch as needed for Other (overdose) . naloxone 2020-03 Yes [id number] 1{spray Use 1 [facility] mg/actuatio 1-24 } [place] [facility] [place] 00:00: each 00 nostril Medical once daily Branch as needed for Other (overdose) . naloxone 2020-03 Yes [id number] 1{spray Use 1 [facility] mg/actuatio 1-24 } [place] [facility] [place] 00:00: each 00 nostril Medical once daily Branch as needed for Other (overdose) . naloxone 2020-03 Yes [id number] 1{spray Use 1 [facility] mg/actuatio 1-24 } [place] [facility] [place] 00:00: each 00 nostril Medical once daily Branch as needed for Other (overdose) . naloxone 2020-03 Yes [id number] 1{spray Use 1 [facility] mg/actuatio 1-24 } [place] [facility] [place] 00:00: each nostril Medical once daily Branch as needed for Other (overdose) . naloxone 2020-03 Yes [id number] 1{spray Use 1 [facility] mg/actuatio 1-24 } [place] [facility] [place] 00:00: each nostril Medical once daily Branch as needed for Other (overdose) . naloxone 2020-03 Yes [id number] 1{spray Use 1 [facility] mg/actuatio 1-24 } [place] [facility] [place] 00:00: each nostril Medical once daily Branch as needed for Other (overdose) . naloxone 2020-03 Yes [id number] 1{spray Use 1 [facility] mg/actuatio 1-24 } [place] [facility] [place] 00:00: each nostril Medical once daily Branch as needed for Other (overdose) . naloxone 2020-03 Yes [id number] 1{spray Use 1 [facility] mg/actuatio 1-24 } [place] [facility] [place] 00:00: each nostril Medical once daily Branch as needed for Other (overdose) . naloxone 2020-03 Yes [id number] 1{spray Use 1 [facility] mg/actuatio 1-24 } [place] [facility] [place] 00:00: each nostril Medical once daily Branch as needed for Other (overdose) . naloxone 2020-03 Yes [id number] 1{spray Use 1 [facility] mg/actuatio 1-24 } [place] [facility] [place] 00:00: each 00 nostril Medical once daily Branch as needed for Other (overdose) . naloxone 2020-03 Yes [id number] 1{spray Use 1 [facility] mg/actuatio 1-24 } [place] [facility] [place] 00:00: each 00 nostril Medical once daily Branch as needed for Other (overdose) . naloxone 2020-03 Yes [id number] 1{spray Use 1 [facility] mg/actuatio 1-24 } [place] [facility] [place] 00:00: each 00 nostril Medical once daily Branch as needed for Other (overdose) . naloxone 2020-03 Yes [id number] 1{spray Use 1 [facility] mg/actuatio 1-24 } [place] [facility] [place] 00:00: each 00 nostril Medical once daily Branch as needed for Other (overdose) . naloxone 2020-03 Yes [id number] 1{spray Use 1 [facility] mg/actuatio 1-24 } [place] [facility] [place] 00:00: each 00 nostril Medical once daily Branch as needed for Other (overdose) . naloxone 2020-03 Yes [id number] 1{spray Use 1 [facility] mg/actuatio 1-24 } [place] [facility] [place] 00:00: each 00 nostril Medical once daily Branch as needed for Other (overdose) . naloxone 2020-03 Yes [id number] 1{spray Use 1 [facility] mg/actuatio 1-24 } [place] [facility] [place] 00:00: each 00 nostril Medical once daily Branch as needed for Other (overdose) . naloxone 2020-03 Yes [id number] 1{spray Use 1 [facility] mg/actuatio 1-24 } [place] [facility] [place] 00:00: each 00 nostril Medical once daily Branch as needed for Other (overdose) . naloxone 2020-03 Yes [id number] 1{spray Use 1 [facility] mg/actuatio 1-24 } [place] [facility] [place] 00:00: each 00 nostril Medical once daily Branch as needed for Other (overdose) . naloxone 2020-03 Yes [id number] 1{spray Use 1 [facility] mg/actuatio 1-24 } [place] [facility] [place] 00:00: each 00 nostril Medical once daily Branch as needed for Other (overdose) . naloxone 2020-03 Yes [id number] 1{spray Use 1 [facility] mg/actuatio 1-24 } [place] [facility] [place] 00:00: each 00 nostril Medical once daily Branch as needed for Other (overdose) . naloxone 2020-03 Yes [id number] 1{spray Use 1 [facility] mg/actuatio 1-24 } [place] [facility] [place] 00:00: each 00 nostril Medical once daily Branch as needed for Other (overdose) . naloxone 2020-03 Yes [id number] 1{spray Use 1 [facility] mg/actuatio 1-24 } [place] [facility] [place] 00:00: each 00 nostril Medical once daily Branch as needed for Other (overdose) . naloxone 2020-03 Yes [id number] 1{spray Use 1 [facility] mg/actuatio 1-24 } [place] [facility] [place] 00:00: each 00 nostril Medical once daily Branch as needed for Other (overdose) . naloxone 2020-03 Yes [id number] 1{spray Use 1 [facility] mg/actuatio 1-24 } [place] [facility] [place] 00:00: each 00 nostril Medical once daily Branch as needed for Other (overdose) . naloxone 2020-03 Yes [id number] 1{spray Use 1 [facility] mg/actuatio 1-24 } [place] [facility] [place] 00:00: each 00 nostril Medical once daily Branch as needed for Other (overdose) . naloxone 2020-03 Yes [id number] 1{spray Use 1 [facility] mg/actuatio 1-24 } [place] [facility] [place] 00:00: each 00 nostril Medical once daily Branch as needed for Other (overdose) . naloxone 2020-03 Yes [id number] 1{spray Use 1 [facility] mg/actuatio 1-24 } [place] [facility] [place] 00:00: each 00 nostril Medical once daily Branch as needed for Other (overdose) . naloxone 2020-03 Yes [id number] 1{spray Use 1 [facility] mg/actuatio 1-24 } [place] [facility] [place] 00:00: each 00 nostril Medical once daily Branch as needed for Other (overdose) . naloxone 2020-03 Yes [id number] 1{spray Use 1 [facility] mg/actuatio 1-24 } [place] [facility] [place] 00:00: each 00 nostril Medical once daily Branch as needed for Other (overdose) . naloxone 2020-03 Yes [id number] 1{spray Use 1 [facility] mg/actuatio 1-24 } [place] [facility] [place] 00:00: each 00 nostril Medical once daily Branch as needed for Other (overdose) . naloxone 2020-03 Yes [id number] 1{spray Use 1 [facility] mg/actuatio 1-24 } [place] [facility] [place] 00:00: each 00 nostril Medical once daily Branch as needed for Other (overdose) . naloxone 2020-03 Yes [id number] 1{spray Use 1 [facility] mg/actuatio 1-24 } [place] [facility] [place] 00:00: each 00 nostril Medical once daily Branch as needed for Other (overdose) . naloxone 2020-03 Yes [id number] 1{spray Use 1 [facility] mg/actuatio 1-24 } [place] [facility] [place] 00:00: each 00 nostril Medical once daily Branch as needed for Other (overdose) . naloxone 2020-03 Yes [id number] 1{spray Use 1 [facility] mg/actuatio 1-24 } [place] [facility] [place] 00:00: each 00 nostril Medical once daily Branch as needed for Other (overdose) . naloxone 2020-03 Yes [id number] 1{spray Use 1 [facility] mg/actuatio 1-24 } [place] [facility] [place] 00:00: each 00 nostril Medical once daily Branch as needed for Other (overdose) . naloxone 2020-03 Yes [id number] 1{spray Use 1 [facility] mg/actuatio 1-24 } [place] [facility] [place] 00:00: each 00 nostril Medical once daily Branch as needed for Other (overdose) . naloxone 2020-03 Yes [id number] 1{spray Use 1 [facility] mg/actuatio 1-24 } [place] [facility] [place] 00:00: each 00 nostril Medical once daily Branch as needed for Other (overdose) . naloxone 2020-03 Yes [id number] 1{spray Use 1 [facility] mg/actuatio 1-24 } [place] [facility] [place] 00:00: each 00 nostril Medical once daily Branch as needed for Other (overdose) . naloxone 2020-03 Yes [id number] 1{spray Use 1 [facility] mg/actuatio 1-24 } [place] [facility] [place] 00:00: each 00 nostril Medical once daily Branch as needed for Other (overdose) . naloxone 2020-03 Yes [id number] 1{spray Use 1 [facility] mg/actuatio 1-24 } [place] [facility] [place] 00:00: each 00 nostril Medical once daily Branch as needed for Other (overdose) . naloxone 2020-03 Yes [id number] 1{spray Use 1 [facility] mg/actuatio 1-24 } [place] [facility] [place] 00:00: each 00 nostril Medical once daily Branch as needed for Other (overdose) . naloxone 2020-03 Yes [id number] 1{spray Use 1 [facility] mg/actuatio 1-24 } [place] [facility] [place] 00:00: each 00 nostril Medical once daily Branch as needed for Other (overdose) . naloxone 2020-03 Yes [id number] 1{spray Use 1 [facility] mg/actuatio 1-24 } [place] [facility] [place] 00:00: each 00 nostril Medical once daily Branch as needed for Other (overdose) . naloxone 2020-03 Yes [id number] 1{spray Use 1 [facility] mg/actuatio 1-24 } [place] [facility] [place] 00:00: each 00 nostril Medical once daily Branch as needed for Other (overdose) . naloxone 2020-03 Yes [id number] 1{spray Use 1 [facility] mg/actuatio 1-24 } [place] [facility] [place] 00:00: each 00 nostril Medical once daily Branch as needed for Other (overdose) . naloxone 2020-03 Yes [id number] 1{spray Use 1 [facility] mg/actuatio 1-24 } [place] [facility] [place] 00:00: each [place] 00 nostril Medical once daily Branch as needed for Other (overdose) . naloxone 2020-03 Yes [id number] 1{spray Use 1 [facility] mg/actuatio 1-24 } [place] [facility] [place] 00:00: each [place] 00 nostril Medical once daily Branch as needed for Other (overdose) . naloxone 2020-03 Yes [id number] 1{spray Use 1 [facility] mg/actuatio 1-24 } [place] [facility] [place] 00:00: each 00 nostril Medical once daily Branch as needed for Other (overdose) . naloxone 2020-03 Yes [id number] 1{spray Use 1 [facility] mg/actuatio 1-24 } [place] [facility] [place] 00:00: each 00 nostril Medical once daily Branch as needed for Other (overdose) . naloxone 2020-03 Yes [id number] 1{spray Use 1 [facility] mg/actuatio 1-24 } [place] [facility] [place] 00:00: each 00 nostril Medical once daily Branch as needed for Other (overdose) . naloxone 2020-03 Yes [id number] 1{spray Use 1 [facility] mg/actuatio 1-24 } [place] [facility] [place] 00:00: each 00 nostril Medical once daily Branch as needed for Other (overdose) . naloxone 2020-03 Yes [id number] 1{spray Use 1 [facility] mg/actuatio 1-24 } [place] [facility] [place] 00:00: each [place] 00 nostril Medical once daily Branch as needed for Other (overdose) . naloxone 2020-03 Yes [id number] 1{spray Use 1 [facility] mg/actuatio 1-24 } [place] [facility] [place] 00:00: each 00 nostril Medical once daily Branch as needed for Other (overdose) . naloxone 2020-03 Yes [id number] 1{spray Use 1 [facility] mg/actuatio 1-24 } [place] [facility] [place] 00:00: each 00 nostril Medical once daily Branch as needed for Other (overdose) . naloxone 2020-03 Yes [id number] 1{spray Use 1 [facility] mg/actuatio 1-24 } [place] [facility] [place] 00:00: each 00 nostril Medical once daily Branch as needed for Other (overdose) . naloxone 2020-03 Yes [id number] 1{spray Use 1 [facility] mg/actuatio 1-24 } [place] [facility] [place] 00:00: each 00 nostril Medical once daily Branch as needed for Other (overdose) . naloxone 2020-03 Yes [id number] 1{spray Use 1 [facility] mg/actuatio 1-24 } [place] [facility] [place] 00:00: each 00 nostril Medical once daily Branch as needed for Other (overdose) . naloxone 2020-03 Yes [id number] 1{spray Use 1 [facility] mg/actuatio 1-24 } [place] [facility] [place] 00:00: each 00 nostril Medical once daily Branch as needed for Other (overdose) . naloxone 2020-03 Yes [id number] 1{spray Use 1 [facility] mg/actuatio 1-24 } [place] [facility] [place] 00:00: each nostril Medical once daily Branch as needed for Other (overdose) . naloxone 2020-03 Yes [id number] 1{spray Use 1 [facility] mg/actuatio 1-24 } [place] [facility] [place] 00:00: each 00 nostril Medical once daily Branch as needed for Other (overdose) . naloxone 2020-03 Yes [id number] 1{spray Use 1 [facility] mg/actuatio 1-24 } [place] [facility] [place] 00:00: each 00 nostril Medical once daily Branch as needed for Other (overdose) . naloxone 2020-03 Yes [id number] 1{spray Use 1 [facility] mg/actuatio 1-24 } [place] [facility] [place] 00:00: each 00 nostril Medical once daily Branch as needed for Other (overdose) . naloxone 2020-03 Yes [id number] 1{spray Use 1 [facility] mg/actuatio 1-24 } [place] [facility] [place] 00:00: each 00 nostril Medical once daily Branch as needed for Other (overdose) . naloxone 2020-03 Yes [id number] 1{spray Use 1 [facility] mg/actuatio 1-24 } [place] [facility] [place] 00:00: each 00 nostril Medical once daily Branch as needed for Other (overdose) . naloxone 2020-03 Yes [id number] 1{spray Use 1 [facility] mg/actuatio 1-24 } [place] [facility] [place] 00:00: each 00 nostril Medical once daily Branch as needed for Other (overdose) . naloxone 2020-03 Yes [id number] 1{spray Use 1 [facility] mg/actuatio 1-24 } [place] [facility] [place] 00:00: each nostril Medical once daily Branch as needed for Other (overdose) . naloxone 2020-03 Yes [id number] 1{spray Use 1 [facility] mg/actuatio 1-24 } [place] [facility] [place] 00:00: each nostril Medical once daily Branch as needed for Other (overdose) . naloxone 2020-03 Yes [id number] 1{spray Use 1 [facility] mg/actuatio 1-24 } [place] [facility] [place] 00:00: each nostril Medical once daily Branch as needed for Other (overdose) . naloxone 2020-03 Yes [id number] 1{spray Use 1 [facility] mg/actuatio 1-24 } [place] [facility] [place] 00:00: each nostril Medical once daily Branch as needed for Other (overdose) . naloxone 2020-03 Yes [id number] 1{spray Use 1 [facility] mg/actuatio 1-24 } [place] [facility] [place] 00:00: each nostril Medical once daily Branch as needed for Other (overdose) . naloxone 2020-03 Yes [id number] 1{spray Use 1 [facility] mg/actuatio 1-24 } [place] [facility] [place] 00:00: each nostril Medical once daily Branch as needed for Other (overdose) . naloxone 2020-03 Yes [id number] 1{spray Use 1 [facility] mg/actuatio 1-24 } [place] [facility] [place] 00:00: each [place] 00 nostril Medical once daily Branch as needed for Other (overdose) . naloxone 2020-03 Yes [id number] 1{spray Use 1 [facility] mg/actuatio 1-24 } [place] [facility] [place] 00:00: each nostril Medical once daily Branch as needed for Other (overdose) . naloxone 2020-03 Yes [id number] 1{spray Use 1 [facility] mg/actuatio 1-24 } [place] [facility] [place] 00:00: each nostril Medical once daily Branch as needed for Other (overdose) . naloxone 2020-03 Yes [id number] 1{spray Use 1 [facility] mg/actuatio 1-24 } [place] [facility] [place] 00:00: each nostril Medical once daily Branch as needed for Other (overdose) . naloxone 2020-03 Yes [id number] 1{spray Use 1 [facility] mg/actuatio 1-24 } [place] [facility] [place] 00:00: each nostril Medical once daily Branch as needed for Other (overdose) . naloxone 2020-03 Yes [id number] 1{spray Use 1 [facility] mg/actuatio 1-24 } [place] [facility] [place] 00:00: each nostril Medical once daily Branch as needed for Other (overdose) . naloxone 2020-03 Yes [id number] 1{spray Use 1 [facility] mg/actuatio 1-24 } [place] [facility] [place] 00:00: each nostril Medical once daily Branch as needed for Other (overdose) . naloxone 2020-03 Yes [id number] 1{spray Use 1 [facility] mg/actuatio 1-24 } [place] [facility] [place] 00:00: each nostril Medical once daily Branch as needed for Other (overdose) . naloxone 2020-03 Yes [id number] 1{spray Use 1 [facility] mg/actuatio 1-24 } [place] in [facility] [place] 00:00: each nostril Medical once daily Branch as needed for Other (overdose) . naloxone 2020-03 Yes [id number] 1{spray Use 1 [facility] mg/actuatio 1-24 } [place] [facility] [place] 00:00: each nostril Medical once daily Branch as needed for Other (overdose) . naloxone 2020-03 Yes [id number] 1{spray Use 1 [facility] mg/actuatio 1-24 } [place] in [facility] [place] 00:00: each nostril Medical once daily Branch as needed for Other (overdose) . naloxone 2020-03 Yes [id number] 1{spray Use 1 [facility] mg/actuatio 1-24 } [place] in [facility] [place] 00:00: each nostril Medical once daily Branch as needed for Other (overdose) . naloxone 2020-03 Yes [id number] 1{spray Use 1 [facility] mg/actuatio 1-24 } [place] in [facility] [place] 00:00: each nostril Medical once daily Branch as needed for Other (overdose) . naloxone 2020-03 Yes [id number] 1{spray Use 1 [facility] mg/actuatio 1-24 } [place] [facility] [place] 00:00: each nostril Medical once daily Branch as needed for Other (overdose) . naloxone 2020-03 Yes [id number] 1{spray Use 1 [facility] mg/actuatio 1-24 } [place] in [facility] [place] 00:00: each nostril Medical once daily Branch as needed for Other (overdose) . naloxone 2020-03 Yes [id number] 1{spray Use 1 [facility] mg/actuatio 1-24 } [place] in [facility] [place] 00:00: each nostril Medical once daily Branch as needed for Other (overdose) . naloxone 2020-03 Yes [id number] 1{spray Use 1 [facility] mg/actuatio 1-24 } [place] [facility] [place] 00:00: each nostril Medical once daily Branch as needed for Other (overdose) . naloxone 2020-03 Yes [id number] 1{spray Use 1 [facility] mg/actuatio 1-24 } [place] in [facility] [place] 00:00: each nostril Medical once daily Branch as needed for Other (overdose) . naloxone 2020-03 Yes [id number] 1{spray Use 1 [facility] mg/actuatio 1-24 } [place] [facility] [place] 00:00: each nostril Medical once daily Branch as needed for Other (overdose) . naloxone 2020-03 Yes [id number] 1{spray Use 1 [facility] mg/actuatio 1-24 } [place] in [facility] [place] 00:00: each nostril Medical once daily Branch as needed for Other (overdose) . naloxone 2020-03 Yes [id number] 1{spray Use 1 [facility] mg/actuatio 1-24 } [place] in [facility] [place] 00:00: each nostril Medical once daily Branch as needed for Other (overdose) . naloxone 2020-03 Yes [id number] 1{spray Use 1 [facility] mg/actuatio 1-24 } [place] in [facility] [place] 00:00: each nostril Medical once daily Branch as needed for Other (overdose) . naloxone 2020-03 Yes [id number] 1{spray Use 1 [facility] mg/actuatio 1-24 } [place] in [facility] [place] 00:00: each nostril Medical once daily Branch as needed for Other (overdose) . naloxone 2020-03 Yes [id number] 1{spray Use 1 [facility] mg/actuatio 1-24 } [place] in [facility] [place] 00:00: each nostril Medical once daily Branch as needed for Other (overdose) . naloxone 2020-03 Yes [id number] 1{spray Use 1 [facility] mg/actuatio 1-24 } [place] in [facility] [place] 00:00: each nostril Medical once daily Branch as needed for Other (overdose) . naloxone 2020-03 Yes [id number] 1{spray Use 1 [facility] mg/actuatio 1-24 } [place] in [facility] [place] 00:00: each nostril Medical once daily Branch as needed for Other (overdose) . Diclofenac Yes [id number] Apply to [facility] Sodium 9-22 area(s) 4 ity of (VOLTAREN) 00:00: (four) [place] 1 % gel 00 times Medical daily as Branch needed for Pain (scale 4-6). potassium Yes [id number] 10meq Take 1 [facility] chloride 9-22 tablet by ity of (K-TAB) 10 00:00: mouth [place] mEq CR 00 daily. Medical tablet Branch Diclofenac 2020-0 Yes [id number] Apply to [facility] Sodium 9-22 area(s) 4 ity of (VOLTAREN) 00:00: (four) [place] 1 % gel 00 times Medical daily as Branch needed for Pain (scale 4-6). potassium 202-0 Yes [id number] 10meq Take 1 [facility] chloride 9-22 tablet by ity of (K-TAB) 10 00:00: mouth [place] mEq CR 00 daily. Medical tablet Branch Diclofenac 2020-0 Yes [id number] Apply to [facility] Sodium 9-22 area(s) 4 ity of (VOLTAREN) 00:00: (four) [place] 1 % gel 00 times Medical daily as Branch needed for Pain (scale 4-6). potassium 2020-0 Yes [id number] 10meq Take 1 [facility] chloride 9-22 tablet by ity of (K-TAB) 10 00:00: mouth [place] mEq CR 00 daily. Medical tablet Branch Diclofenac 2020-0 Yes [id number] Apply to [facility] Sodium 9-22 area(s) 4 ity of (VOLTAREN) 00:00: (four) [place] 1 % gel 00 times Medical daily as Branch needed for Pain (scale 4-6). potassium 2020-0 Yes [id number] 10meq Take 1 [facility] chloride 9-22 tablet by ity of (K-TAB) 10 00:00: mouth [place] mEq CR 00 daily. Medical tablet Branch Diclofenac 2020-0 Yes [id number] Apply to [facility] Sodium 9-22 area(s) 4 ity of (VOLTAREN) 00:00: (four) [place] 1 % gel 00 times Medical daily as Branch needed for Pain (scale 4-6). potassium 202-0 Yes [id number] 10meq Take 1 [facility] chloride 9-22 tablet by ity of (K-TAB) 10 00:00: mouth [place] mEq CR 00 daily. Medical tablet Branch Diclofenac 2020-0 Yes [id number] Apply to [facility] Sodium 9-22 area(s) 4 ity of (VOLTAREN) 00:00: (four) [place] 1 % gel 00 times Medical daily as Branch needed for Pain (scale 4-6). potassium 2021-0 Yes [id number] 10meq Take 1 [facility] chloride 9-22 tablet by ity of (K-TAB) 10 00:00: mouth [place] mEq CR 00 daily. Medical tablet Branch Diclofenac 2020-0 Yes [id number] Apply to [facility] Sodium 9-22 area(s) 4 ity of (VOLTAREN) 00:00: (four) [place] 1 % gel 00 times Medical daily as Branch needed for Pain (scale 4-6). potassium 202-0 Yes [id number] 10meq Take 1 [facility] chloride 9-22 tablet by ity of (K-TAB) 10 00:00: mouth [place] mEq CR 00 daily. Medical tablet Branch Diclofenac 2020-0 Yes [id number] Apply to [facility] Sodium 9-22 area(s) 4 ity of (VOLTAREN) 00:00: (four) [place] 1 % gel 00 times Medical daily as Branch needed for Pain (scale 4-6). potassium 2020-0 Yes [id number] 10meq Take 1 [facility] chloride 9-22 tablet by ity of (K-TAB) 10 00:00: mouth [place] mEq CR 00 daily. Medical tablet Branch Diclofenac 2020-0 Yes [id number] Apply to [facility] Sodium 9-22 area(s) 4 ity of (VOLTAREN) 00:00: (four) [place] 1 % gel 00 times Medical daily as Branch needed for Pain (scale 4-6). potassium 2020-0 Yes [id number] 10meq Take 1 [facility] chloride 9-22 tablet by ity of (K-TAB) 10 00:00: mouth [place] mEq CR 00 daily. Medical tablet Branch Diclofenac 2020-0 Yes [id number] Apply to [facility] Sodium 9-22 area(s) 4 ity of (VOLTAREN) 00:00: (four) [place] 1 % gel 00 times Medical daily as Branch needed for Pain (scale 4-6). potassium 2020-0 Yes [id number] 10meq Take 1 [facility] chloride 9-22 tablet by ity of (K-TAB) 10 00:00: mouth [place] mEq CR 00 daily. Medical tablet Branch Diclofenac 2020-0 Yes [id number] Apply to [facility] Sodium 9-22 area(s) 4 ity of (VOLTAREN) 00:00: (four) [place] 1 % gel 00 times Medical daily as Branch needed for Pain (scale 4-6). potassium 202-0 Yes [id number] 10meq Take 1 [facility] chloride 9-22 tablet by ity of (K-TAB) 10 00:00: mouth [place] mEq CR 00 daily. Medical tablet Branch Diclofenac 2020-0 Yes [id number] Apply to [facility] Sodium 9-22 area(s) 4 ity of (VOLTAREN) 00:00: (four) [place] 1 % gel 00 times Medical daily as Branch needed for Pain (scale 4-6). potassium 2020-0 Yes [id number] 10meq Take 1 [facility] chloride 9-22 tablet by ity of (K-TAB) 10 00:00: mouth [place] mEq CR 00 daily. Medical tablet Branch Diclofenac 2020-0 Yes [id number] Apply to [facility] Sodium 9-22 area(s) 4 ity of (VOLTAREN) 00:00: (four) [place] 1 % gel 00 times Medical daily as Branch needed for Pain (scale 4-6). potassium 2020-0 Yes [id number] 10meq Take 1 [facility] chloride 9-22 tablet by ity of (K-TAB) 10 00:00: mouth [place] mEq CR 00 daily. Medical tablet Branch Diclofenac 2020-0 Yes [id number] Apply to [facility] Sodium 9-22 area(s) 4 ity of (VOLTAREN) 00:00: (four) [place] 1 % gel 00 times Medical daily as Branch needed for Pain (scale 4-6). potassium 2020-0 Yes [id number] 10meq Take 1 [facility] chloride 9-22 tablet by ity of (K-TAB) 10 00:00: mouth [place] mEq CR 00 daily. Medical tablet Branch Diclofenac 2020-0 Yes [id number] Apply to [facility] Sodium 9-22 area(s) 4 ity of (VOLTAREN) 00:00: (four) [place] 1 % gel 00 times Medical daily as Branch needed for Pain (scale 4-6). potassium 2020-0 Yes [id number] 10meq Take 1 [facility] chloride 9-22 tablet by ity of (K-TAB) 10 00:00: mouth [place] mEq CR 00 daily. Medical tablet Branch Diclofenac 2020-0 Yes [id number] Apply to [facility] Sodium 9-22 area(s) 4 ity of (VOLTAREN) 00:00: (four) [place] 1 % gel 00 times Medical daily as Branch needed for Pain (scale 4-6). potassium 2020-0 Yes [id number] 10meq Take 1 [facility] chloride 9-22 tablet by ity of (K-TAB) 10 00:00: mouth [place] mEq CR 00 daily. Medical tablet Branch Diclofenac 2020-0 Yes [id number] Apply to [facility] Sodium 9-22 area(s) 4 ity of (VOLTAREN) 00:00: (four) [place] 1 % gel 00 times Medical daily as Branch needed for Pain (scale 4-6). potassium 2020-0 Yes [id number] 10meq Take 1 [facility] chloride 9-22 tablet by ity of (K-TAB) 10 00:00: mouth [place] mEq CR 00 daily. Medical tablet Branch Diclofenac 2020-0 Yes [id number] Apply to [facility] Sodium 9-22 area(s) 4 ity of (VOLTAREN) 00:00: (four) [place] 1 % gel 00 times Medical daily as Branch needed for Pain (scale 4-6). potassium 2020-0 Yes [id number] 10meq Take 1 [facility] chloride 9-22 tablet by ity of (K-TAB) 10 00:00: mouth [place] mEq CR 00 daily. Medical tablet Branch Diclofenac 2020-0 Yes [id number] Apply to [facility] Sodium 9-22 area(s) 4 ity of (VOLTAREN) 00:00: (four) [place] 1 % gel 00 times Medical daily as Branch needed for Pain (scale 4-6). potassium 2020-0 Yes [id number] 10meq Take 1 [facility] tablet by [facility] (K-TAB) 10 00:00: mouth [place] mEq CR 00 daily. Medical tablet [facility] Diclofenac 2020-0 Yes [id number] Apply to [facility] Sodium 9-22 area(s) 4 [facility] of (VOLTAREN) 00:00: (four) [place] 1 % gel 00 times Medical daily as Branch needed for Pain (scale 4-6). potassium 2020-0 Yes [id number] 10meq Take 1 [facility] 9-22 tablet by [facility] of (K-TAB) 10 00:00: mouth [place] mEq CR 00 daily. Medical tablet [facility] Diclofenac 2020-0 Yes [id number] Apply to [facility] S[facility] 9-22 area(s) 4 [facility] of (VOLTAREN) 00:00: (four) [place] 1 % gel 00 times Medical daily as Branch needed for Pain (scale 4-6). potassium 2021-0 Yes [id number] 10meq Take 1 [facility] 9-22 tablet by [facility] of (K-TAB) 10 00:00: mouth [place] mEq CR 00 daily. Medical tablet [facility] Diclofenac 2020-0 Yes [id number] Apply to [facility] Sodium 9-22 area(s) 4 [facility] of (VOLTAREN) 00:00: (four) [place] 1 % gel 00 times Medical daily as Branch needed for Pain (scale 4-6). potassium 202-0 Yes [id number] 10meq Take 1 [facility] 9-22 tablet by [facility] of (K-TAB) 10 00:00: mouth [place] mEq CR 00 daily. Medical tablet [facility] Diclofenac 2020-0 Yes [id number] Apply to [facility] Sodium 9-22 area(s) 4 [facility] of (VOLTAREN) 00:00: (four) [place] 1 % gel 00 times Medical daily as Branch needed for Pain (scale 4-6). potassium 2020-0 Yes [id number] 10meq Take 1 [facility] 9-22 tablet by [facility] of (K-TAB) 10 00:00: mouth [place] mEq CR 00 daily. Medical tablet [facility] Diclofenac 2020-0 Yes [id number] Apply to [facility] Sodium 9-22 area(s) 4 [facility] of (VOLTAREN) 00:00: (four) [place] 1 % gel 00 times Medical daily as Branch needed for Pain (scale 4-6). potassium 2021-0 Yes [id number] 10meq Take 1 [facility] 9-22 tablet by [facility] of (K-TAB) 10 00:00: mouth [place] mEq CR 00 daily. Medical tablet [facility] Diclofenac 2020-0 Yes [id number] Apply to [facility] S[facility] 9-22 area(s) 4 [facility] of (VOLTAREN) 00:00: (four) [place] 1 % gel 00 times Medical daily as Branch needed for Pain (scale 4-6). potassium 2021-0 Yes [id number] 10meq Take 1 [facility] 9-22 tablet by [facility] of (K-TAB) 10 00:00: mouth [place] mEq CR 00 daily. Medical tablet [facility] Diclofenac 1-0 Yes [id number] Apply to [facility] S[facility] 9-22 area(s) 4 [facility] of (VOLTAREN) 00:00: (four) [place] 1 % gel 00 times Medical daily as Branch needed for Pain (scale 4-6). potassium 2021-0 Yes [id number] 10meq Take 1 [facility] 9-22 tablet by [facility] of (K-TAB) 10 00:00: mouth [place] mEq CR 00 daily. Medical tablet [facility] Diclofenac 2020-0 Yes [id number] Apply to [facility] S[facility] 9-22 area(s) 4 [facility] of (VOLTAREN) 00:00: (four) [place] 1 % gel 00 times Medical daily as Branch needed for Pain (scale 4-6). potassium 202-0 Yes [id number] 10meq Take 1 [facility] 9-22 tablet by [facility] of (K-TAB) 10 00:00: mouth [place] mEq CR 00 daily. Medical tablet [facility] Diclofenac 2020-0 Yes [id number] Apply to [facility] S[facility] 9-22 area(s) 4 [facility] of (VOLTAREN) 00:00: (four) [place] 1 % gel 00 times Medical daily as Branch needed for Pain (scale 4-6). potassium 2020-0 Yes [id number] 10meq Take 1 [facility] 9-22 tablet by [facility] of (K-TAB) 10 00:00: mouth [place] mEq CR 00 daily. Medical tablet [facility] Diclofenac 2020-0 Yes [id number] Apply to [facility] S[facility] 9-22 area(s) 4 [facility] of (VOLTAREN) 00:00: (four) [place] 1 % gel 00 times Medical daily as Branch needed for Pain (scale 4-6). potassium 2021-0 Yes [id number] 10meq Take 1 [facility] 9-22 tablet by [facility] of (K-TAB) 10 00:00: mouth [place] mEq CR 00 daily. Medical tablet [facility] Diclofenac 2020-0 Yes [id number] Apply to [facility] S[facility] 9-22 area(s) 4 [facility] of (VOLTAREN) 00:00: (four) [place] 1 % gel 00 times Medical daily as Branch needed for Pain (scale 4-6). potassium 2021-0 Yes [id number] 10meq Take 1 [facility] 9-22 tablet by [facility] of (K-TAB) 10 00:00: mouth [place] mEq CR 00 daily. Medical tablet [facility] Diclofenac 1-0 Yes [id number] Apply to [facility] S[facility] 9-22 area(s) 4 [facility] of (VOLTAREN) 00:00: (four) [place] 1 % gel 00 times Medical daily as Branch needed for Pain (scale 4-6). potassium 2020-0 Yes [id number] 10meq Take 1 [facility] 9-22 tablet by [facility] of (K-TAB) 10 00:00: mouth [place] mEq CR 00 daily. Medical tablet Branch Diclofenac 2020-0 Yes [id number] Apply to [facility] S[facility] 9-22 area(s) 4 [facility] of (VOLTAREN) 00:00: (four) [place] 1 % gel 00 times Medical daily as Branch needed for Pain (scale 4-6). potassium 2020-0 Yes [id number] 10meq Take 1 [facility] 9-22 tablet by [facility] of (K-TAB) 10 00:00: mouth [place] mEq CR 00 daily. Medical tablet Branch Diclofenac 2020-0 Yes [id number] Apply to [facility] Sodium 9-22 area(s) 4 [facility] of (VOLTAREN) 00:00: (four) [place] 1 % gel 00 times Medical daily as Branch needed for Pain (scale 4-6). potassium 2020-0 Yes [id number] 10meq Take 1 [facility] 9-22 tablet by [facility] of (K-TAB) 10 00:00: mouth [place] mEq CR 00 daily. Medical tablet Branch Diclofenac 2020-0 Yes [id number] Apply to [facility] S[facility] 9-22 area(s) 4 [facility] of (VOLTAREN) 00:00: (four) [place] 1 % gel 00 times Medical daily as Branch needed for Pain (scale 4-6). potassium 2020-0 Yes [id number] 10meq Take 1 [facility] 9-22 tablet by [facility] of (K-TAB) 10 00:00: mouth [place] mEq CR 00 daily. Medical tablet Branch Diclofenac 2020-0 Yes [id number] Apply to [facility] S[facility] 9-22 area(s) 4 [facility] of (VOLTAREN) 00:00: (four) [place] 1 % gel 00 times Medical daily as Branch needed for Pain (scale 4-6). potassium 2021-0 Yes [id number] 10meq Take 1 [facility] 9-22 tablet by [facility] of (K-TAB) 10 00:00: mouth [place] mEq CR 00 daily. Medical tablet [facility] Diclofenac 2020-0 Yes [id number] Apply to [facility] S[facility] 9-22 area(s) 4 [facility] of (VOLTAREN) 00:00: (four) [place] 1 % gel 00 times Medical daily as Branch needed for Pain (scale 4-6). potassium 2021-0 Yes [id number] 10meq Take 1 [facility] 9-22 tablet by [facility] of (K-TAB) 10 00:00: mouth [place] mEq CR 00 daily. Medical tablet Branch Diclofenac 2020-0 Yes [id number] Apply to [facility] S[facility] 9-22 area(s) 4 [facility] of (VOLTAREN) 00:00: (four) [place] 1 % gel 00 times Medical daily as Branch needed for Pain (scale 4-6). potassium 202-0 Yes [id number] 10meq Take 1 [facility] 9-22 tablet by [facility] of (K-TAB) 10 00:00: mouth [place] mEq CR 00 daily. Medical tablet Branch Diclofenac 2020-0 Yes [id number] Apply to [facility] S[facility] 9-22 area(s) 4 [facility] of (VOLTAREN) 00:00: (four) [place] 1 % gel 00 times Medical daily as Branch needed for Pain (scale 4-6). potassium 2020-0 Yes [id number] 10meq Take 1 [facility] 9-22 tablet by [facility] of (K-TAB) 10 00:00: mouth [place] mEq CR 00 daily. Medical tablet Branch Diclofenac 2020-0 Yes [id number] Apply to [facility] S[facility] 9-22 area(s) 4 [facility] of (VOLTAREN) 00:00: (four) [place] 1 % gel 00 times Medical daily as Branch needed for Pain (scale 4-6). potassium 202-0 Yes [id number] 10meq Take 1 [facility] 9-22 tablet by [facility] of (K-TAB) 10 00:00: mouth [place] mEq CR 00 daily. Medical tablet Branch Diclofenac 2020-0 Yes [id number] Apply to [facility] S[facility] 9-22 area(s) 4 [facility] of (VOLTAREN) 00:00: (four) [place] 1 % gel 00 times Medical daily as Branch needed for Pain (scale 4-6). potassium 2021-0 Yes [id number] 10meq Take 1 [facility] 9-22 tablet by [facility] of (K-TAB) 10 00:00: mouth [place] mEq CR 00 daily. Medical tablet Branch Diclofenac 2020-0 Yes [id number] Apply to [facility] S[facility] 9-22 area(s) 4 [facility] of (VOLTAREN) 00:00: (four) [place] 1 % gel 00 times Medical daily as Branch needed for Pain (scale 4-6). potassium 2020-0 Yes [id number] 10meq Take 1 [facility] 9-22 tablet by [facility] of (K-TAB) 10 00:00: mouth [place] mEq CR 00 daily. Medical tablet Branch Diclofenac 2020-0 Yes [id number] Apply to [facility] S[facility] 9-22 area(s) 4 [facility] of (VOLTAREN) 00:00: (four) [place] 1 % gel 00 times Medical daily as Branch needed for Pain (scale 4-6). potassium 2020-0 Yes [id number] 10meq Take 1 [facility] 9-22 tablet by [facility] of (K-TAB) 10 00:00: mouth [place] mEq CR 00 daily. Medical tablet Branch Diclofenac 2020-0 Yes [id number] Apply to [facility] S[facility] 9-22 area(s) 4 [facility] of (VOLTAREN) 00:00: (four) [place] 1 % gel 00 times Medical daily as Branch needed for Pain (scale 4-6). potassium 2020-0 Yes [id number] 10meq Take 1 [facility] 9-22 tablet by [facility] of (K-TAB) 10 00:00: mouth [place] mEq CR 00 daily. Medical tablet [facility] Diclofenac 2020-0 Yes [id number] Apply to [facility] S[facility] 9-22 area(s) 4 [facility] of (VOLTAREN) 00:00: (four) [place] 1 % gel 00 times Medical daily as Branch needed for Pain (scale 4-6). potassium 2020-0 Yes [id number] 10meq Take 1 [facility] 9-22 tablet by [facility] of (K-TAB) 10 00:00: mouth [place] mEq CR 00 daily. Medical tablet Branch Diclofenac 2020-0 Yes [id number] Apply to [facility] S[facility] 9-22 area(s) 4 [facility] of (VOLTAREN) 00:00: (four) [place] 1 % gel 00 times Medical daily as Branch needed for Pain (scale 4-6). potassium 2020-0 Yes [id number] 10meq Take 1 [facility] 9-22 tablet by [facility] of (K-TAB) 10 00:00: mouth [place] mEq CR 00 daily. Medical tablet Branch Diclofenac 2020-0 Yes [id number] Apply to [facility] S[facility] 9-22 area(s) 4 [facility] of (VOLTAREN) 00:00: (four) [place] 1 % gel 00 times Medical daily as Branch needed for Pain (scale 4-6). potassium 2020-0 Yes [id number] 10meq Take 1 [facility] 9-22 tablet by [facility] of (K-TAB) 10 00:00: mouth [place] mEq CR 00 daily. Medical tablet Branch Diclofenac 2020-0 Yes [id number] Apply to [facility] S[facility] 9-22 area(s) 4 [facility] of (VOLTAREN) 00:00: (four) [place] 1 % gel 00 times Medical daily as Branch needed for Pain (scale 4-6). potassium 2020-0 Yes [id number] 10meq Take 1 [facility] chloride 9-22 tablet by [facility] of (K-TAB) 10 00:00: mouth [place] mEq CR 00 daily. Medical tablet Branch Diclofenac 2020-0 Yes [id number] Apply to [facility] Sodium 9-22 area(s) 4 [facility] of (VOLTAREN) 00:00: (four) [place] 1 % gel 00 times Medical daily as Branch needed for Pain (scale 4-6). potassium 2020-0 Yes [id number] 10meq Take 1 [facility] 9-22 tablet by [facility] of (K-TAB) 10 00:00: mouth [place] mEq CR 00 daily. Medical tablet Branch Diclofenac 2020-0 Yes [id number] Apply to [facility] S[facility] 9-22 area(s) 4 [facility] of (VOLTAREN) 00:00: (four) [place] 1 % gel 00 times Medical daily as Branch needed for Pain (scale 4-6). potassium 2020-0 Yes [id number] 10meq Take 1 [facility] 9-22 tablet by [facility] of (K-TAB) 10 00:00: mouth [place] mEq CR 00 daily. Medical tablet Branch Diclofenac 2020-0 Yes [id number] Apply to [facility] S[facility] 9-22 area(s) 4 [facility] of (VOLTAREN) 00:00: (four) [place] 1 % gel 00 times Medical daily as Branch needed for Pain (scale 4-6). potassium 2020-0 Yes [id number] 10meq Take 1 [facility] chloride 9-22 tablet by [facility] of (K-TAB) 10 00:00: mouth [place] mEq CR 00 daily. Medical tablet Branch Diclofenac 2020-0 Yes [id number] Apply to [facility] S[facility] 9-22 area(s) 4 [facility] of (VOLTAREN) 00:00: (four) [place] 1 % gel 00 times Medical daily as Branch needed for Pain (scale 4-6). potassium 202-0 Yes [id number] 10meq Take 1 [facility] 9-22 tablet by [facility] of (K-TAB) 10 00:00: mouth [place] mEq CR 00 daily. Medical tablet Branch Diclofenac 2020-0 Yes [id number] Apply to [facility] S[facility] 9-22 area(s) 4 [facility] of (VOLTAREN) 00:00: (four) [place] 1 % gel 00 times Medical daily as Branch needed for Pain (scale 4-6). potassium 2020-0 Yes [id number] 10meq Take 1 [facility] chloride 9-22 tablet by [facility] of (K-TAB) 10 00:00: mouth [place] mEq CR 00 daily. Medical tablet Branch Diclofenac 2020-0 Yes [id number] Apply to [facility] Sodium 9-22 area(s) 4 [facility] of (VOLTAREN) 00:00: (four) [place] 1 % gel 00 times Medical daily as Branch needed for Pain (scale 4-6). potassium 2020-0 Yes [id number] 10meq Take 1 [facility] chloride 9-22 tablet by [facility] of (K-TAB) 10 00:00: mouth [place] mEq CR 00 daily. Medical tablet Branch Diclofenac 2020-0 Yes [id number] Apply to [facility] S[facility] 9-22 area(s) 4 [facility] of (VOLTAREN) 00:00: (four) [place] 1 % gel 00 times Medical daily as Branch needed for Pain (scale 4-6). potassium 202-0 Yes [id number] 10meq Take 1 [facility] chloride 9-22 tablet by [facility] of (K-TAB) 10 00:00: mouth [place] mEq CR 00 daily. Medical tablet Branch Diclofenac 2020-0 Yes [id number] Apply to [facility] S[facility] 9-22 area(s) 4 [facility] of (VOLTAREN) 00:00: (four) [place] 1 % gel 00 times Medical daily as Branch needed for Pain (scale 4-6). potassium 2021-0 Yes [id number] 10meq Take 1 [facility] chloride 9-22 tablet by [facility] of (K-TAB) 10 00:00: mouth [place] mEq CR 00 daily. Medical tablet Branch Diclofenac 2020-0 Yes [id number] Apply to [facility] S[facility] 9-22 area(s) 4 [facility] of (VOLTAREN) 00:00: (four) [place] 1 % gel 00 times Medical daily as Branch needed for Pain (scale 4-6). potassium 202-0 Yes [id number] 10meq Take 1 [facility] chloride 9-22 tablet by [facility] of (K-TAB) 10 00:00: mouth [place] mEq CR 00 daily. Medical tablet Branch Diclofenac 2020-0 Yes [id number] Apply to [facility] S[facility] 9-22 area(s) 4 [facility] of (VOLTAREN) 00:00: (four) [place] 1 % gel 00 times Medical daily as Branch needed for Pain (scale 4-6). potassium 2020-0 Yes [id number] 10meq Take 1 [facility] chloride 9-22 tablet by [facility] of (K-TAB) 10 00:00: mouth [place] mEq CR 00 daily. Medical tablet Branch Diclofenac 2020-0 Yes [id number] Apply to [facility] Sodium 9-22 area(s) 4 [facility] of (VOLTAREN) 00:00: (four) [place] 1 % gel 00 times Medical daily as Branch needed for Pain (scale 4-6). potassium 2020-0 Yes [id number] 10meq Take 1 [facility] chloride 9-22 tablet by [facility] of (K-TAB) 10 00:00: mouth [place] mEq CR 00 daily. Medical tablet Branch Diclofenac 2020-0 Yes [id number] Apply to [facility] Sodium 9-22 area(s) 4 [facility] of (VOLTAREN) 00:00: (four) [place] 1 % gel 00 times Medical daily as Branch needed for Pain (scale 4-6). potassium 202-0 Yes [id number] 10meq Take 1 [facility] chloride 9-22 tablet by [facility] of (K-TAB) 10 00:00: mouth [place] mEq CR 00 daily. Medical tablet Branch Diclofenac 2020-0 Yes [id number] Apply to [facility] S[facility] 9-22 area(s) 4 [facility] of (VOLTAREN) 00:00: (four) [place] 1 % gel 00 times Medical daily as Branch needed for Pain (scale 4-6). potassium 202-0 Yes [id number] 10meq Take 1 [facility] chloride 9-22 tablet by [facility] of (K-TAB) 10 00:00: mouth [place] mEq CR 00 daily. Medical tablet Branch Diclofenac 2020-0 Yes [id number] Apply to [facility] Sodium 9-22 area(s) 4 [facility] of (VOLTAREN) 00:00: (four) [place] 1 % gel 00 times Medical daily as Branch needed for Pain (scale 4-6). potassium 2020-0 Yes [id number] 10meq Take 1 [facility] chloride 9-22 tablet by [facility] of (K-TAB) 10 00:00: mouth [place] mEq CR 00 daily. Medical tablet Branch Diclofenac 0 Yes [id number] Apply to [facility] Sodium 9-22 area(s) 4 [facility] of (VOLTAREN) 00:00: (four) [place] 1 % gel 00 times Medical daily as Branch needed for Pain (scale 4-6). potassium 2020-0 Yes [id number] 10meq Take 1 [facility] chloride 9-22 tablet by [facility] of (K-TAB) 10 00:00: mouth [place] mEq CR 00 daily. Medical tablet Branch Diclofenac 0 Yes [id number] Apply to [facility] Sodium 9-22 area(s) 4 [facility] of (VOLTAREN) 00:00: (four) [place] 1 % gel 00 times Medical daily as Branch needed for Pain (scale 4-6). potassium 2020-0 Yes [id number] 10meq Take 1 [facility] chloride 9-22 tablet by [facility] of (K-TAB) 10 00:00: mouth [place] mEq CR 00 daily. Medical tablet Branch Diclofenac 2020-0 Yes [id number] Apply to [facility] Sodium 9-22 area(s) 4 [facility] of (VOLTAREN) 00:00: (four) [place] 1 % gel 00 times Medical daily as Branch needed for Pain (scale 4-6). potassium 2020-0 Yes [id number] 10meq Take 1 [facility] chloride 9-22 tablet by [facility] of (K-TAB) 10 00:00: mouth [place] mEq CR 00 daily. Medical tablet Branch Diclofenac 2020-0 Yes [id number] Apply to [facility] Sodium 9-22 area(s) 4 [facility] of (VOLTAREN) 00:00: (four) [place] 1 % gel 00 times Medical daily as Branch needed for Pain (scale 4-6). potassium 2020-0 Yes [id number] 10meq Take 1 [facility] chloride 9-22 tablet by [facility] of (K-TAB) 10 00:00: mouth [place] mEq CR 00 daily. Medical tablet Branch Diclofenac 2020-0 Yes [id number] Apply to [facility] Sodium 9-22 area(s) 4 [facility] of (VOLTAREN) 00:00: (four) [place] 1 % gel 00 times Medical daily as Branch needed for Pain (scale 4-6). potassium 2020-0 Yes [id number] 10meq Take 1 [facility] chloride 9-22 tablet by [facility] of (K-TAB) 10 00:00: mouth [place] mEq CR 00 daily. Medical tablet Branch Diclofenac 2020-0 Yes [id number] Apply to [facility] Sodium 9-22 area(s) 4 [facility] of (VOLTAREN) 00:00: (four) [place] 1 % gel 00 times Medical daily as Branch needed for Pain (scale 4-6). potassium 2020-0 Yes [id number] 10meq Take 1 [facility] chloride 9-22 tablet by [facility] of (K-TAB) 10 00:00: mouth [place] mEq CR 00 daily. Medical tablet Branch Diclofenac 2020-0 Yes [id number] Apply to [facility] Sodium 9-22 area(s) 4 [facility]y of (VOLTAREN) 00:00: (four) [place] 1 % gel 00 times Medical daily as Branch needed for Pain (scale 4-6). potassium 2020-0 Yes [id number] 10meq Take 1 [facility] chloride 9-22 tablet by [facility] of (K-TAB) 10 00:00: mouth [place] mEq CR 00 daily. Medical tablet Branch Diclofenac 2020-0 Yes [id number] Apply to [facility] Sodium 9-22 area(s) 4 [facility] of (VOLTAREN) 00:00: (four) [place] 1 % gel 00 times Medical daily as Branch needed for Pain (scale 4-6). potassium 2020-0 Yes [id number] 10meq Take 1 [facility] chloride 9-22 tablet by [facility] of (K-TAB) 10 00:00: mouth [place] mEq CR 00 daily. Medical tablet Branch Diclofenac 2020-0 Yes [id number] Apply to [facility] Sodium 9-22 area(s) 4 [facility]y of (VOLTAREN) 00:00: (four) [place] 1 % gel 00 times Medical daily as Branch needed for Pain (scale 4-6). potassium 202-0 Yes [id number] 10meq Take 1 [facility] 9-22 tablet by [facility] of (K-TAB) 10 00:00: mouth [place] mEq CR 00 daily. Medical tablet Branch Diclofenac 2020-0 Yes [id number] Apply to [facility] Sodium 9-22 area(s) 4 [facility] of (VOLTAREN) 00:00: (four) [place] 1 % gel 00 times Medical daily as Branch needed for Pain (scale 4-6). potassium 2020-0 Yes [id number] 10meq Take 1 [facility] 9-22 tablet by [facility] of (K-TAB) 10 00:00: mouth [place] mEq CR 00 daily. Medical tablet Branch Diclofenac 2020-0 Yes [id number] Apply to [facility] S[facility] 9-22 area(s) 4 [facility] of (VOLTAREN) 00:00: (four) [place] 1 % gel 00 times Medical daily as Branch needed for Pain (scale 4-6). potassium 2020-0 Yes [id number] 10meq Take 1 [facility] 9-22 tablet by [facility] of (K-TAB) 10 00:00: mouth [place] mEq CR 00 daily. Medical tablet Branch Diclofenac 2020-0 Yes [id number] Apply to [facility] S[facility] 9-22 area(s) 4 [facility] of (VOLTAREN) 00:00: (four) [place] 1 % gel 00 times Medical daily as Branch needed for Pain (scale 4-6). potassium 2020-0 Yes [id number] 10meq Take 1 [facility] 9-22 tablet by [facility] of (K-TAB) 10 00:00: mouth [place] mEq CR 00 daily. Medical tablet Branch Diclofenac 2020-0 Yes [id number] Apply to [facility] S[facility] 9-22 area(s) 4 [facility] of (VOLTAREN) 00:00: (four) [place] 1 % gel 00 times Medical daily as Branch needed for Pain (scale 4-6). potassium 202-0 Yes [id number] 10meq Take 1 [facility] 9-22 tablet by [facility] of (K-TAB) 10 00:00: mouth [place] mEq CR 00 daily. Medical tablet Branch Diclofenac 2020-0 Yes [id number] Apply to [facility] S[facility] 9-22 area(s) 4 [facility] of (VOLTAREN) 00:00: (four) [place] 1 % gel 00 times Medical daily as Branch needed for Pain (scale 4-6). potassium 2021-0 Yes [id number] 10meq Take 1 [facility] 9-22 tablet by [facility] of (K-TAB) 10 00:00: mouth [place] mEq CR 00 daily. Medical tablet Branch Diclofenac 2020-0 Yes [id number] Apply to [facility] S[facility] 9-22 area(s) 4 [facility]y of (VOLTAREN) 00:00: (four) [place] 1 % gel 00 times Medical daily as Branch needed for Pain (scale 4-6). potassium 2021-0 Yes [id number] 10meq Take 1 [facility] 9-22 tablet by [facility] of (K-TAB) 10 00:00: mouth [place] mEq CR 00 daily. Medical tablet Branch Diclofenac 1-0 Yes [id number] Apply to [facility] S[facility] 9-22 area(s) 4 [facility]y of (VOLTAREN) 00:00: (four) [place] 1 % gel 00 times Medical daily as Branch needed for Pain (scale 4-6). potassium 202-0 Yes [id number] 10meq Take 1 [facility] 9-22 tablet by [facility] of (K-TAB) 10 00:00: mouth [place] mEq CR 00 daily. Medical tablet Branch Diclofenac 2020-0 Yes [id number] Apply to [facility] S[facility] 9-22 area(s) 4 [facility]y of (VOLTAREN) 00:00: (four) [place] 1 % gel 00 times Medical daily as Branch needed for Pain (scale 4-6). potassium 2021-0 Yes [id number] 10meq Take 1 [facility] 9-22 tablet by [facility] of (K-TAB) 10 00:00: mouth [place] mEq CR 00 daily. Medical tablet Branch Diclofenac 1-0 Yes [id number] Apply to [facility] S[facility] 9-22 area(s) 4 [facility]y of (VOLTAREN) 00:00: (four) [place] 1 % gel 00 times Medical daily as Branch needed for Pain (scale 4-6). potassium 2021-0 Yes [id number] 10meq Take 1 [facility] 9-22 tablet by [facility] of (K-TAB) 10 00:00: mouth [place] mEq CR 00 daily. Medical tablet Branch Diclofenac 2021-0 Yes [id number] Apply to [facility] S[facility] 9-22 area(s) 4 [facility] of (VOLTAREN) 00:00: (four) [place] 1 % gel 00 times Medical daily as Branch needed for Pain (scale 4-6). potassium 2020-0 Yes [id number] 10meq Take 1 [facility] 9-22 tablet by [facility] of (K-TAB) 10 00:00: mouth [place] mEq CR 00 daily. Medical tablet Branch Diclofenac 2020-0 Yes [id number] Apply to [facility] S[facility] 9-22 area(s) 4 [facility]y of (VOLTAREN) 00:00: (four) [place] 1 % gel 00 times Medical daily as Branch needed for Pain (scale 4-6). potassium 2020-0 Yes [id number] 10meq Take 1 [facility] 9-22 tablet by [facility] of (K-TAB) 10 00:00: mouth [place] mEq CR 00 daily. Medical tablet Branch Diclofenac 2020-0 Yes [id number] Apply to [facility] S[facility] 9-22 area(s) 4 [facility]y of (VOLTAREN) 00:00: (four) [place] 1 % gel 00 times Medical daily as Branch needed for Pain (scale 4-6). potassium 2020-0 Yes [id number] 10meq Take 1 [facility] 9-22 tablet by [facility] of (K-TAB) 10 00:00: mouth [place] mEq CR 00 daily. Medical tablet Branch Diclofenac 2020-0 Yes [id number] Apply to [facility] S[facility] 9-22 area(s) 4 ity of (VOLTAREN) 00:00: (four) [place] 1 % gel 00 times Medical daily as Branch needed for Pain (scale 4-6). potassium 2020-0 Yes [id number] 10meq Take 1 [facility] 9-22 tablet by [facility] of (K-TAB) 10 00:00: mouth [place] mEq CR 00 daily. Medical tablet Branch Diclofenac 2020-0 Yes [id number] Apply to [facility] S[facility] 9-22 area(s) 4 ity of (VOLTAREN) 00:00: (four) [place] 1 % gel 00 times Medical daily as Branch needed for Pain (scale 4-6). potassium 2021-0 Yes [id number] 10meq Take 1 [facility] 9-22 tablet by [facility] of (K-TAB) 10 00:00: mouth [place] mEq CR 00 daily. Medical tablet Branch Diclofenac 2020-0 Yes [id number] Apply to [facility] S[facility] 9-22 area(s) 4 ity of (VOLTAREN) 00:00: (four) [place] 1 % gel 00 times Medical daily as Branch needed for Pain (scale 4-6). potassium 2021-0 Yes [id number] 10meq Take 1 [facility] 9-22 tablet by [facility] of (K-TAB) 10 00:00: mouth [place] mEq CR 00 daily. Medical tablet Branch Diclofenac 2020-0 Yes [id number] Apply to [facility] S[facility] 9-22 area(s) 4 ity of (VOLTAREN) 00:00: (four) [place] 1 % gel 00 times Medical daily as Branch needed for Pain (scale 4-6). potassium 202-0 Yes [id number] 10meq Take 1 [facility] 9-22 tablet by [facility] of (K-TAB) 10 00:00: mouth [place] mEq CR 00 daily. Medical tablet Branch Diclofenac 2020-0 Yes [id number] Apply to [facility] S[facility] 9-22 area(s) 4 ity of (VOLTAREN) 00:00: (four) [place] 1 % gel 00 times Medical daily as Branch needed for Pain (scale 4-6). potassium 2020-0 Yes [id number] 10meq Take 1 [facility] 9-22 tablet by [facility] of (K-TAB) 10 00:00: mouth [place] mEq CR 00 daily. Medical tablet Branch Diclofenac 2020-0 Yes [id number] Apply to [facility] S[facility] 9-22 area(s) 4 ity of (VOLTAREN) 00:00: (four) [place] 1 % gel 00 times Medical daily as Branch needed for Pain (scale 4-6). potassium 202-0 Yes [id number] 10meq Take 1 [facility] 9-22 tablet by [facility] of (K-TAB) 10 00:00: mouth [place] mEq CR 00 daily. Medical tablet Branch Diclofenac 2020-0 Yes [id number] Apply to [facility] S[facility] 9-22 area(s) 4 ity of (VOLTAREN) 00:00: (four) [place] 1 % gel 00 times Medical daily as Branch needed for Pain (scale 4-6). potassium 2021-0 Yes [id number] 10meq Take 1 [facility] 9-22 tablet by [facility] of (K-TAB) 10 00:00: mouth [place] mEq CR 00 daily. Medical tablet Branch Diclofenac 2020-0 Yes [id number] Apply to [facility] S[facility] 9-22 area(s) 4 ity of (VOLTAREN) 00:00: (four) [place] 1 % gel 00 times Medical daily as Branch needed for Pain (scale 4-6). potassium 202-0 Yes [id number] 10meq Take 1 [facility] 9-22 tablet by [facility] of (K-TAB) 10 00:00: mouth [place] mEq CR 00 daily. Medical tablet Branch Diclofenac 2020-0 Yes [id number] Apply to [facility] S[facility] 9-22 area(s) 4 ity of (VOLTAREN) 00:00: (four) [place] 1 % gel 00 times Medical daily as Branch needed for Pain (scale 4-6). potassium 2020-0 Yes [id number] 10meq Take 1 [facility] 9-22 tablet by [facility] of (K-TAB) 10 00:00: mouth [place] mEq CR 00 daily. Medical tablet Branch Diclofenac 2020-0 Yes [id number] Apply to [facility] Sodium 9-22 area(s) 4 ity of (VOLTAREN) 00:00: (four) [place] 1 % gel 00 times Medical daily as Branch needed for Pain (scale 4-6). potassium 2020-0 Yes [id number] 10meq Take 1 [facility] chloride 9-22 tablet by it[facility] of (K-TAB) 10 00:00: mouth [place] mEq CR 00 daily. Medical tablet Branch Diclofenac 2020-0 Yes [id number] Apply to [facility] Sodium 9-22 area(s) 4 ity of (VOLTAREN) 00:00: (four) [place] 1 % gel 00 times Medical daily as Branch needed for Pain (scale 4-6). potassium 2020-0 Yes [id number] 10meq Take 1 [facility] chloride 9-22 tablet by it[facility] of (K-TAB) 10 00:00: mouth [place] mEq CR 00 daily. Medical tablet Branch Diclofenac 2020-0 Yes [id number] Apply to [facility] Sodium 9-22 area(s) 4 ity of (VOLTAREN) 00:00: (four) [place] 1 % gel 00 times Medical daily as Branch needed for Pain (scale 4-6). potassium 2020-0 Yes [id number] 10meq Take 1 [facility] chloride 9-22 tablet by ity of (K-TAB) 10 00:00: mouth [place] mEq CR 00 daily. Medical tablet Branch Diclofenac 2020-0 Yes [id number] Apply to [facility] Sodium 9-22 area(s) 4 ity of (VOLTAREN) 00:00: (four) [place] 1 % gel 00 times Medical daily as Branch needed for Pain (scale 4-6). potassium 202-0 Yes [id number] 10meq Take 1 [facility] chloride 9-22 tablet by ity of (K-TAB) 10 00:00: mouth [place] mEq CR 00 daily. Medical tablet Branch Diclofenac 2020-0 Yes [id number] Apply to [facility] Sodium 9-22 area(s) 4 ity of (VOLTAREN) 00:00: (four) [place] 1 % gel 00 times Medical daily as Branch needed for Pain (scale 4-6). potassium 2020-0 Yes [id number] 10meq Take 1 [facility] chloride 9-22 tablet by ity of (K-TAB) 10 00:00: mouth [place] mEq CR 00 daily. Medical tablet Branch Diclofenac 2020-0 Yes [id number] Apply to [facility] Sodium 9-22 area(s) 4 ity of (VOLTAREN) 00:00: (four) [place] 1 % gel 00 times Medical daily as Branch needed for Pain (scale 4-6). potassium 2020-0 Yes [id number] 10meq Take 1 [facility] chloride 9-22 tablet by ity of (K-TAB) 10 00:00: mouth [place] mEq CR 00 daily. Medical tablet Branch Diclofenac 2020-0 Yes [id number] Apply to [facility] Sodium 9-22 area(s) 4 ity of (VOLTAREN) 00:00: (four) [place] 1 % gel 00 times Medical daily as Branch needed for Pain (scale 4-6). potassium 2020-0 Yes [id number] 10meq Take 1 [facility] chloride 9-22 tablet by ity of (K-TAB) 10 00:00: mouth [place] mEq CR 00 daily. Medical tablet Branch Diclofenac 2020-0 Yes [id number] Apply to [facility] Sodium 9-22 area(s) 4 ity of (VOLTAREN) 00:00: (four) [place] 1 % gel 00 times Medical daily as Branch needed for Pain (scale 4-6). potassium 202-0 Yes [id number] 10meq Take 1 [facility] chloride 9-22 tablet by ity of (K-TAB) 10 00:00: mouth [place] mEq CR 00 daily. Medical tablet Branch Diclofenac 2020-0 Yes [id number] Apply to [facility] Sodium 9-22 area(s) 4 ity of (VOLTAREN) 00:00: (four) [place] 1 % gel 00 times Medical daily as Branch needed for Pain (scale 4-6). potassium 2020-0 Yes [id number] 10meq Take 1 [facility] chloride 9-22 tablet by ity of (K-TAB) 10 00:00: mouth [place] mEq CR 00 daily. Medical tablet Branch Diclofenac 2020-0 Yes [id number] Apply to [facility] Sodium 9-22 area(s) 4 ity of (VOLTAREN) 00:00: (four) [place] 1 % gel 00 times Medical daily as Branch needed for Pain (scale 4-6). potassium 2020-0 Yes [id number] 10meq Take 1 [facility] chloride 9-22 tablet by ity of (K-TAB) 10 00:00: mouth [place] mEq CR 00 daily. Medical tablet Branch Diclofenac 2020-0 Yes [id number] Apply to [facility] Sodium 9-22 area(s) 4 ity of (VOLTAREN) 00:00: (four) [place] 1 % gel 00 times Medical daily as Branch needed for Pain (scale 4-6). potassium 2020-0 Yes [id number] 10meq Take 1 [facility] chloride 9-22 tablet by ity of (K-TAB) 10 00:00: mouth [place] mEq CR 00 daily. Medical tablet Branch Diclofenac 2020-0 Yes [id number] Apply to [facility] Sodium 9-22 area(s) 4 ity of (VOLTAREN) 00:00: (four) [place] 1 % gel 00 times Medical daily as Branch needed for Pain (scale 4-6). potassium 2020-0 Yes [id number] 10meq Take 1 [facility] chloride 9-22 tablet by ity of (K-TAB) 10 00:00: mouth [place] mEq CR 00 daily. Medical tablet Branch Diclofenac 2020-0 Yes [id number] Apply to [facility] Sodium 9-22 area(s) 4 ity of (VOLTAREN) 00:00: (four) [place] 1 % gel 00 times Medical daily as Branch needed for Pain (scale 4-6). potassium 202-0 Yes [id number] 10meq Take 1 [facility] chloride 9-22 tablet by ity of (K-TAB) 10 00:00: mouth [place] mEq CR 00 daily. Medical tablet Branch Diclofenac 2020-0 Yes [id number] Apply to [facility] Sodium 9-22 area(s) 4 ity of (VOLTAREN) 00:00: (four) [place] 1 % gel 00 times Medical daily as Branch needed for Pain (scale 4-6). potassium 202-0 Yes [id number] 10meq Take 1 [facility] chloride 9-22 tablet by ity of (K-TAB) 10 00:00: mouth [place] mEq CR 00 daily. Medical tablet Branch Diclofenac 2020-0 Yes [id number] Apply to [facility] Sodium 9-22 area(s) 4 ity of (VOLTAREN) 00:00: (four) [place] 1 % gel 00 times Medical daily as Branch needed for Pain (scale 4-6). potassium 2020-0 Yes [id number] 10meq Take 1 [facility] chloride 9-22 tablet by ity of (K-TAB) 10 00:00: mouth [place] mEq CR 00 daily. Medical tablet Branch Diclofenac 2020-0 Yes [id number] Apply to [facility] Sodium 9-22 area(s) 4 ity of (VOLTAREN) 00:00: (four) [place] 1 % gel 00 times Medical daily as Branch needed for Pain (scale 4-6). potassium 2020-0 Yes [id number] 10meq Take 1 [facility] chloride 9-22 tablet by ity of (K-TAB) 10 00:00: mouth [place] mEq CR 00 daily. Medical tablet Branch Diclofenac 2020-0 Yes [id number] Apply to [facility] Sodium 9-22 area(s) 4 ity of (VOLTAREN) 00:00: (four) [place] 1 % gel 00 times Medical daily as Branch needed for Pain (scale 4-6). potassium 2020-0 Yes [id number] 10meq Take 1 [facility] chloride 9-22 tablet by ity of (K-TAB) 10 00:00: mouth [place] mEq CR 00 daily. Medical tablet Branch Diclofenac 2020-0 Yes [id number] Apply to [facility] Sodium 9-22 area(s) 4 ity of (VOLTAREN) 00:00: (four) [place] 1 % gel 00 times Medical daily as Branch needed for Pain (scale 4-6). potassium 202-0 Yes [id number] 10meq Take 1 [facility] chloride 9-22 tablet by ity of (K-TAB) 10 00:00: mouth [place] mEq CR 00 daily. Medical tablet Branch Diclofenac 0 Yes [id number] Apply to [facility] Sodium 9-22 area(s) 4 ity of (VOLTAREN) 00:00: (four) [place] 1 % gel 00 times Medical daily as Branch needed for Pain (scale 4-6). potassium 2020-0 Yes [id number] 10meq Take 1 [facility] chloride 9-22 tablet by ity of (K-TAB) 10 00:00: mouth [place] mEq CR 00 daily. Medical tablet Branch Diclofenac 0 Yes [id number] Apply to [facility] Sodium 9-22 area(s) 4 ity of (VOLTAREN) 00:00: (four) [place] 1 % gel 00 times Medical daily as Branch needed for Pain (scale 4-6). potassium 0 Yes [id number] 10meq Take 1 [facility] chloride 9-22 tablet by ity of (K-TAB) 10 00:00: mouth [place] mEq CR 00 daily. Medical tablet Branch potassium 0 Yes [id number] 10meq Take 1 [facility] chloride 9-22 tablet by ity of (K-TAB) 10 00:00: mouth [place] mEq CR 00 daily. Medical tablet Branch potassium 2020-0 Yes [id number] 10meq Take 1 [facility] chloride 9-22 tablet by ity of (K-TAB) 10 00:00: mouth [place] mEq CR 00 daily. Medical tablet Branch potassium 2020-0 Yes [id number] 10meq Take 1 [facility] chloride 9-22 tablet by ity of (K-TAB) 10 00:00: mouth [place] mEq CR 00 daily. Medical tablet Branch potassium 2020-0 Yes [id number] 10meq Take 1 [facility] chloride 9-22 tablet by ity of (K-TAB) 10 00:00: mouth [place] mEq CR 00 daily. Medical tablet Branch potassium 2020-0 Yes [id number] 10meq Take 1 [facility] chloride 9-22 tablet by ity of (K-TAB) 10 00:00: mouth [place] mEq CR 00 daily. Medical tablet Branch potassium 2020-0 Yes [id number] 10meq Take 1 [facility] chloride 9-22 tablet by ity of (K-TAB) 10 00:00: mouth [place] mEq CR 00 daily. Medical tablet Branch potassium 0 Yes [id number] 10meq Take 1 [facility] chloride 9-22 tablet by ity of (K-TAB) 10 00:00: mouth [place] mEq CR 00 daily. Medical tablet Branch potassium 0 Yes [id number] 10meq Take 1 [facility] chloride 9-22 tablet by ity of (K-TAB) 10 00:00: mouth [place] mEq CR 00 daily. Medical tablet Branch potassium 0 Yes [id number] 10meq Take 1 [facility] chloride 9-22 tablet by ity of (K-TAB) 10 00:00: mouth [place] mEq CR 00 daily. Medical tablet Branch potassium 0 Yes [id number] 10meq Take 1 [facility] chloride 9-22 tablet by ity of (K-TAB) 10 00:00: mouth [place] mEq CR 00 daily. Medical tablet Branch potassium Yes [id number] 10meq Take 1 [facility] chloride 9-22 tablet by ity of (K-TAB) 10 00:00: mouth [place] mEq CR 00 daily. Medical tablet Branch potassium Yes [id number] 10meq Take 1 [facility] chloride 9-22 tablet by ity of (K-TAB) 10 00:00: mouth [place] mEq CR 00 daily. Medical tablet Branch potassium 0 Yes [id number] 10meq Take 1 [facility] chloride 9-22 tablet by ity of (K-TAB) 10 00:00: mouth [place] mEq CR 00 daily. Medical tablet Branch potassium 0 Yes [id number] 10meq Take 1 [facility] chloride 9-22 tablet by ity of (K-TAB) 10 00:00: mouth [place] mEq CR 00 daily. Medical tablet Branch potassium 0 Yes [id number] 10meq Take 1 [facility] chloride 9-22 tablet by ity of (K-TAB) 10 00:00: mouth [place] mEq CR 00 daily. Medical tablet Branch potassium 0 Yes [id number] 10meq Take 1 [facility] chloride 9-22 tablet by ity of (K-TAB) 10 00:00: mouth [place] mEq CR 00 daily. Medical tablet Branch potassium 0 Yes [id number] 10meq Take 1 [facility] chloride 9-22 tablet by ity of (K-TAB) 10 00:00: mouth [place] mEq CR 00 daily. Medical tablet Branch potassium 0 Yes [id number] 10meq Take 1 [facility] chloride 9-22 tablet by ity of (K-TAB) 10 00:00: mouth [place] mEq CR 00 daily. Medical tablet Branch potassium Yes [id number] 10meq Take 1 [facility] chloride 9-22 tablet by ity of (K-TAB) 10 00:00: mouth [place] mEq CR 00 daily. Medical tablet Branch potassium Yes [id number] 10meq Take 1 [facility] chloride 9-22 tablet by ity of (K-TAB) 10 00:00: mouth [place] mEq CR 00 daily. Medical tablet Branch potassium Yes [id number] 10meq Take 1 [facility] chloride 9-22 tablet by ity of (K-TAB) 10 00:00: mouth [place] mEq CR 00 daily. Medical tablet Branch potassium Yes [id number] 10meq Take 1 [facility] chloride 9-22 tablet by ity of (K-TAB) 10 00:00: mouth [place] mEq CR 00 daily. Medical tablet Branch potassium Yes [id number] 10meq Take 1 [facility] chloride 9-22 tablet by ity of (K-TAB) 10 00:00: mouth [place] mEq CR 00 daily. Medical tablet Branch potassium Yes [id number] 10meq Take 1 [facility] chloride 9-22 tablet by ity of (K-TAB) 10 00:00: mouth [place] mEq CR 00 daily. Medical tablet Branch potassium Yes [id number] 10meq Take 1 [facility] chloride 9-22 tablet by ity of (K-TAB) 10 00:00: mouth [place] mEq CR 00 daily. Medical tablet Branch potassium Yes [id number] 10meq Take 1 [facility] chloride 9-22 tablet by ity of (K-TAB) 10 00:00: mouth [place] mEq CR 00 daily. Medical tablet Branch potassium Yes [id number] 10meq Take 1 [facility] chloride 9-22 tablet by ity of (K-TAB) 10 00:00: mouth [place] mEq CR 00 daily. Medical tablet Branch potassium Yes [id number] 10meq Take 1 [facility] chloride 9-22 tablet by ity of (K-TAB) 10 00:00: mouth [place] mEq CR 00 daily. Medical tablet Branch potassium 2021-0 Yes [id number] 10meq Take 1 [facility] chloride 9-22 tablet by ity of (K-TAB) 10 00:00: mouth [place] mEq CR 00 daily. Medical tablet Branch potassium 0 Yes [id number] 10meq Take 1 [facility] chloride 9-22 tablet by ity of (K-TAB) 10 00:00: mouth [place] mEq CR 00 daily. Medical tablet Branch potassium 0 Yes [id number] 10meq Take 1 [facility] chloride 9-22 tablet by ity of (K-TAB) 10 00:00: mouth [place] mEq CR 00 daily. Medical tablet Branch potassium 0 Yes [id number] 10meq Take 1 [facility] chloride 9-22 tablet by ity of (K-TAB) 10 00:00: mouth [place] mEq CR 00 daily. Medical tablet Branch potassium Yes [id number] 10meq Take 1 [facility] chloride 9-22 tablet by ity of (K-TAB) 10 00:00: mouth [place] mEq CR 00 daily. Medical tablet Branch potassium 0 Yes [id number] 10meq Take 1 [facility] chloride 9-22 tablet by ity of (K-TAB) 10 00:00: mouth [place] mEq CR 00 daily. Medical tablet Branch potassium 0 Yes [id number] 10meq Take 1 [facility] chloride 9-22 tablet by ity of (K-TAB) 10 00:00: mouth [place] mEq CR 00 daily. Medical tablet Branch Diclofenac 3- No [id number] Apply to [facility] Sodium 9-22 04-05 area(s) 4 ity of (VOLTAREN) 00:00: 00:00 (four) [place] 1 % gel 00 :00 times [facility] daily as Branch needed for Pain (scale 4-6). DOXYCYCLINE 0 Yes [id number] TAKE 1 [facility] HYCLATE 100 4-26 CAPSULE BY it y of mg capsule 00:00: MOUTH 2 [place] 00 TIMES Medical DAILY FOR Branch 10 DAYS AT ONSET OF SKIN INFECTION DOXYCYCLINE 2020-0 Yes [id number] TAKE 1 [facility] HYCLATE 100 4-26 CAPSULE BY it y of mg capsule 00:00: MOUTH 2 [place] 00 TIMES [facility] DAILY FOR Branch 10 DAYS AT ONSET OF SKIN INFECTION DOXYCYCLINE 2020-0 Yes [id number] TAKE 1 [facility] HYCLATE 100 4-26 CAPSULE BY it y of mg capsule 00:00: MOUTH 2 [place] 00 TIMES [facility] DAILY FOR Branch 10 DAYS AT ONSET OF SKIN INFECTION DOXYCYCLINE 2021-0 Yes [id number] TAKE 1 [facility] HYCLATE 100 4-26 CAPSULE BY it y of mg capsule 00:00: MOUTH 2 [place] 00 TIMES [facility] DAILY FOR Branch 10 DAYS AT ONSET OF SKIN INFECTION DOXYCYCLINE 2021-0 Yes [id number] TAKE 1 [facility] HYCLATE 100 4-26 CAPSULE BY it y of mg capsule 00:00: MOUTH 2 [place] 00 TIMES Medical DAILY FOR Branch 10 DAYS AT ONSET OF SKIN INFECTION DOXYCYCLINE 2021-0 Yes [id number] TAKE 1 [facility] HYCLATE 100 4-26 CAPSULE BY it y of mg capsule 00:00: MOUTH 2 [place] 00 TIMES Medical DAILY FOR [facility] 10 DAYS AT ONSET OF SKIN INFECTION DOXYCYCLINE 2020-0 Yes [id number] TAKE 1 [facility] HYCLATE 100 4-26 CAPSULE BY it y of mg capsule 00:00: MOUTH 2 [place] 00 TIMES Medical DAILY FOR Branch 10 DAYS AT ONSET OF SKIN INFECTION DOXYCYCLINE 2020-0 Yes [id number] TAKE 1 [facility] HYCLATE 100 4-26 CAPSULE BY it y of mg capsule 00:00: MOUTH 2 [place] 00 TIMES Medical DAILY FOR [facility] 10 DAYS AT ONSET OF SKIN INFECTION DOXYCYCLINE 1-0 Yes [id number] TAKE 1 [facility] HYCLATE 100 4-26 CAPSULE BY it y of mg capsule 00:00: MOUTH 2 [place] 00 TIMES Medical DAILY FOR Branch 10 DAYS AT ONSET OF SKIN INFECTION DOXYCYCLINE 1-0 Yes [id number] TAKE 1 [facility] HYCLATE 100 4-26 CAPSULE BY it y of mg capsule 00:00: MOUTH 2 [place] 00 TIMES Medical DAILY FOR Branch 10 DAYS AT ONSET OF SKIN INFECTION DOXYCYCLINE 2021-0 Yes [id number] TAKE 1 [facility] HYCLATE 100 4-26 CAPSULE BY it y of mg capsule 00:00: MOUTH 2 [place] 00 TIMES Medical DAILY FOR Branch 10 DAYS AT ONSET OF SKIN INFECTION DOXYCYCLINE 2021-0 Yes [id number] TAKE 1 [facility] HYCLATE 100 4-26 CAPSULE BY it y of mg capsule 00:00: MOUTH 2 [place] 00 TIMES Medical DAILY FOR Branch 10 DAYS AT ONSET OF SKIN INFECTION DOXYCYCLINE 2021-0 Yes [id number] TAKE 1 [facility] HYCLATE 100 4-26 CAPSULE BY it y of mg capsule 00:00: MOUTH 2 [place] 00 TIMES Medical DAILY FOR Branch 10 DAYS AT ONSET OF SKIN INFECTION DOXYCYCLINE 2021-0 Yes [id number] TAKE 1 [facility] HYCLATE 100 4-26 CAPSULE BY it y of mg capsule 00:00: MOUTH 2 [place] 00 TIMES Medical DAILY FOR [facility] 10 DAYS AT ONSET OF SKIN INFECTION DOXYCYCLINE 2020-0 Yes [id number] TAKE 1 [facility] HYCLATE 100 4-26 CAPSULE BY it y of mg capsule 00:00: MOUTH 2 [place] 00 TIMES Medical DAILY FOR [facility] 10 DAYS AT ONSET OF SKIN INFECTION DOXYCYCLINE 2020-0 Yes [id number] TAKE 1 [facility] HYCLATE 100 4-26 CAPSULE BY it y of mg capsule 00:00: MOUTH 2 [place] 00 TIMES Medical DAILY FOR Branch 10 DAYS AT ONSET OF SKIN INFECTION DOXYCYCLINE 2020-0 Yes [id number] TAKE 1 [facility] HYCLATE 100 4-26 CAPSULE BY it y of mg capsule 00:00: MOUTH 2 [place] 00 TIMES Medical DAILY FOR Branch 10 DAYS AT ONSET OF SKIN INFECTION DOXYCYCLINE 2020-0 Yes [id number] TAKE 1 [facility] HYCLATE 100 4-26 CAPSULE BY it y of mg capsule 00:00: MOUTH 2 [place] 00 TIMES Medical DAILY FOR Branch 10 DAYS AT ONSET OF SKIN INFECTION DOXYCYCLINE 2020-0 Yes [id number] TAKE 1 [facility] HYCLATE 100 4-26 CAPSULE BY it y of mg capsule 00:00: MOUTH 2 [place] 00 TIMES Medical DAILY FOR Branch 10 DAYS AT ONSET OF SKIN INFECTION DOXYCYCLINE 2020-0 Yes [id number] TAKE 1 [facility] HYCLATE 100 4-26 CAPSULE BY it y of mg capsule 00:00: MOUTH 2 [place] 00 TIMES Medical DAILY FOR Branch 10 DAYS AT ONSET OF SKIN INFECTION DOXYCYCLINE 2020-0 Yes [id number] TAKE 1 [facility] HYCLATE 100 4-26 CAPSULE BY it y of mg capsule 00:00: MOUTH 2 [place] 00 TIMES Medical DAILY FOR Branch 10 DAYS AT ONSET OF SKIN INFECTION DOXYCYCLINE 1-0 Yes [id number] TAKE 1 [facility] HYCLATE 100 4-26 CAPSULE BY it y of mg capsule 00:00: MOUTH 2 [place] 00 TIMES Medical DAILY FOR Branch 10 DAYS AT ONSET OF SKIN INFECTION DOXYCYCLINE 2021-0 Yes [id number] TAKE 1 [facility] HYCLATE 100 4-26 CAPSULE BY it y of mg capsule 00:00: MOUTH 2 [place] 00 TIMES Medical DAILY FOR Branch 10 DAYS AT ONSET OF SKIN INFECTION DOXYCYCLINE 2021-0 Yes [id number] TAKE 1 [facility] HYCLATE 100 4-26 CAPSULE BY it y of mg capsule 00:00: MOUTH 2 [place] 00 TIMES Medical DAILY FOR Branch 10 DAYS AT ONSET OF SKIN INFECTION DOXYCYCLINE 2021-0 Yes [id number] TAKE 1 [facility] HYCLATE 100 4-26 CAPSULE BY it y of mg capsule 00:00: MOUTH 2 [place] 00 TIMES Medical DAILY FOR [facility] 10 DAYS AT ONSET OF SKIN INFECTION DOXYCYCLINE 2021-0 Yes [id number] TAKE 1 [facility] HYCLATE 100 4-26 CAPSULE BY it y of mg capsule 00:00: MOUTH 2 [place] 00 TIMES Medical DAILY FOR Branch 10 DAYS AT ONSET OF SKIN INFECTION DOXYCYCLINE 2021-0 Yes [id number] TAKE 1 [facility] HYCLATE 100 4-26 CAPSULE BY it y of mg capsule 00:00: MOUTH 2 [place] 00 TIMES Medical DAILY FOR Branch 10 DAYS AT ONSET OF SKIN INFECTION DOXYCYCLINE 2020-0 Yes [id number] TAKE 1 [facility] HYCLATE 100 4-26 CAPSULE BY it y of mg capsule 00:00: MOUTH 2 [place] 00 TIMES Medical DAILY FOR Branch 10 DAYS AT ONSET OF SKIN INFECTION DOXYCYCLINE 1-0 Yes [id number] TAKE 1 [facility] HYCLATE 100 4-26 CAPSULE BY it y of mg capsule 00:00: MOUTH 2 [place] 00 TIMES Medical DAILY FOR Branch 10 DAYS AT ONSET OF SKIN INFECTION DOXYCYCLINE 1-0 Yes [id number] TAKE 1 [facility] HYCLATE 100 4-26 CAPSULE BY it y of mg capsule 00:00: MOUTH 2 [place] 00 TIMES Medical DAILY FOR Branch 10 DAYS AT ONSET OF SKIN INFECTION DOXYCYCLINE 2021-0 Yes [id number] TAKE 1 [facility] HYCLATE 100 4-26 CAPSULE BY it y of mg capsule 00:00: MOUTH 2 [place] 00 TIMES Medical DAILY FOR Branch 10 DAYS AT ONSET OF SKIN INFECTION DOXYCYCLINE 2021-0 Yes [id number] TAKE 1 [facility] HYCLATE 100 4-26 CAPSULE BY it y of mg capsule 00:00: MOUTH 2 [place] 00 TIMES Medical DAILY FOR Branch 10 DAYS AT ONSET OF SKIN INFECTION DOXYCYCLINE 2021-0 Yes [id number] TAKE 1 [facility] HYCLATE 100 4-26 CAPSULE BY it y of mg capsule 00:00: MOUTH 2 [place] 00 TIMES Medical DAILY FOR Branch 10 DAYS AT ONSET OF SKIN INFECTION DOXYCYCLINE 2021-0 Yes [id number] TAKE 1 [facility] HYCLATE 100 4-26 CAPSULE BY it y of mg capsule 00:00: MOUTH 2 [place] 00 TIMES Medical DAILY FOR Branch 10 DAYS AT ONSET OF SKIN INFECTION DOXYCYCLINE 2020-0 Yes [id number] TAKE 1 [facility] HYCLATE 100 4-26 CAPSULE BY it y of mg capsule 00:00: MOUTH 2 [place] 00 TIMES Medical DAILY FOR [facility] 10 DAYS AT ONSET OF SKIN INFECTION DOXYCYCLINE 2020-0 Yes [id number] TAKE 1 [facility] HYCLATE 100 4-26 CAPSULE BY it y of mg capsule 00:00: MOUTH 2 [place] 00 TIMES Medical DAILY FOR [facility] 10 DAYS AT ONSET OF SKIN INFECTION DOXYCYCLINE 2020-0 Yes [id number] TAKE 1 [facility] HYCLATE 100 4-26 CAPSULE BY it y of mg capsule 00:00: MOUTH 2 [place] 00 TIMES Medical DAILY FOR [facility] 10 DAYS AT ONSET OF SKIN INFECTION DOXYCYCLINE 2020-0 Yes [id number] TAKE 1 [facility] HYCLATE 100 4-26 CAPSULE BY it y of mg capsule 00:00: MOUTH 2 [place] 00 TIMES Medical DAILY FOR [facility] 10 DAYS AT ONSET OF SKIN INFECTION DOXYCYCLINE 2020-0 Yes [id number] TAKE 1 [facility] HYCLATE 100 4-26 CAPSULE BY it y of mg capsule 00:00: MOUTH 2 [place] 00 TIMES Medical DAILY FOR [facility] 10 DAYS AT ONSET OF SKIN INFECTION DOXYCYCLINE 2020-0 Yes [id number] TAKE 1 [facility] HYCLATE 100 4-26 CAPSULE BY it y of mg capsule 00:00: MOUTH 2 [place] 00 TIMES Medical DAILY FOR [facility] 10 DAYS AT ONSET OF SKIN INFECTION DOXYCYCLINE 2020-0 Yes [id number] TAKE 1 [facility] HYCLATE 100 4-26 CAPSULE BY it y of mg capsule 00:00: MOUTH 2 [place] 00 TIMES Medical DAILY FOR Branch 10 DAYS AT ONSET OF SKIN INFECTION DOXYCYCLINE 2020-0 Yes [id number] TAKE 1 [facility] HYCLATE 100 4-26 CAPSULE BY it y of mg capsule 00:00: MOUTH 2 [place] 00 TIMES Medical DAILY FOR Branch 10 DAYS AT ONSET OF SKIN INFECTION DOXYCYCLINE 2020-0 Yes [id number] TAKE 1 [facility] HYCLATE 100 4-26 CAPSULE BY it y of mg capsule 00:00: MOUTH 2 [place] 00 TIMES Medical DAILY FOR Branch 10 DAYS AT ONSET OF SKIN INFECTION DOXYCYCLINE 2021-0 Yes [id number] TAKE 1 [facility] HYCLATE 100 4-26 CAPSULE BY it y of mg capsule 00:00: MOUTH 2 [place] 00 TIMES Medical DAILY FOR Branch 10 DAYS AT ONSET OF SKIN INFECTION DOXYCYCLINE 2021-0 Yes [id number] TAKE 1 [facility] HYCLATE 100 4-26 CAPSULE BY it y of mg capsule 00:00: MOUTH 2 [place] 00 TIMES Medical DAILY FOR Branch 10 DAYS AT ONSET OF SKIN INFECTION DOXYCYCLINE 2021-0 Yes [id number] TAKE 1 [facility] HYCLATE 100 4-26 CAPSULE BY it y of mg capsule 00:00: MOUTH 2 [place] 00 TIMES Medical DAILY FOR Branch 10 DAYS AT ONSET OF SKIN INFECTION DOXYCYCLINE 1-0 Yes [id number] TAKE 1 [facility] HYCLATE 100 4-26 CAPSULE BY it y of mg capsule 00:00: MOUTH 2 [place] 00 TIMES Medical DAILY FOR Branch 10 DAYS AT ONSET OF SKIN INFECTION DOXYCYCLINE 2021-0 Yes [id number] TAKE 1 [facility] HYCLATE 100 4-26 CAPSULE BY it y of mg capsule 00:00: MOUTH 2 [place] 00 TIMES Medical DAILY FOR Branch 10 DAYS AT ONSET OF SKIN INFECTION DOXYCYCLINE 2020-0 Yes [id number] TAKE 1 [facility] HYCLATE 100 4-26 CAPSULE BY it y of mg capsule 00:00: MOUTH 2 [place] 00 TIMES Medical DAILY FOR Branch 10 DAYS AT ONSET OF SKIN INFECTION DOXYCYCLINE 2021-0 Yes [id number] TAKE 1 [facility] HYCLATE 100 4-26 CAPSULE BY it y of mg capsule 00:00: MOUTH 2 [place] 00 TIMES Medical DAILY FOR Branch 10 DAYS AT ONSET OF SKIN INFECTION DOXYCYCLINE 2021-0 Yes [id number] TAKE 1 [facility] HYCLATE 100 4-26 CAPSULE BY it y of mg capsule 00:00: MOUTH 2 [place] 00 TIMES Medical DAILY FOR Branch 10 DAYS AT ONSET OF SKIN INFECTION DOXYCYCLINE 2021-0 Yes [id number] TAKE 1 [facility] HYCLATE 100 4-26 CAPSULE BY it y of mg capsule 00:00: MOUTH 2 [place] 00 TIMES Medical DAILY FOR [facility] 10 DAYS AT ONSET OF SKIN INFECTION DOXYCYCLINE 2021-0 Yes [id number] TAKE 1 [facility] HYCLATE 100 4-26 CAPSULE BY it y of mg capsule 00:00: MOUTH 2 [place] 00 TIMES Medical DAILY FOR Branch 10 DAYS AT ONSET OF SKIN INFECTION DOXYCYCLINE 2021-0 Yes [id number] TAKE 1 [facility] HYCLATE 100 4-26 CAPSULE BY it y of mg capsule 00:00: MOUTH 2 [place] 00 TIMES Medical DAILY FOR Branch 10 DAYS AT ONSET OF SKIN INFECTION DOXYCYCLINE 2021-0 Yes [id number] TAKE 1 [facility] HYCLATE 100 4-26 CAPSULE BY it y of mg capsule 00:00: MOUTH 2 [place] 00 TIMES Medical DAILY FOR Branch 10 DAYS AT ONSET OF SKIN INFECTION DOXYCYCLINE 2021-0 Yes [id number] TAKE 1 [facility] HYCLATE 100 4-26 CAPSULE BY it y of mg capsule 00:00: MOUTH 2 [place] 00 TIMES Medical DAILY FOR Branch 10 DAYS AT ONSET OF SKIN INFECTION DOXYCYCLINE 2021-0 Yes [id number] TAKE 1 [facility] HYCLATE 100 4-26 CAPSULE BY it y of mg capsule 00:00: MOUTH 2 [place] 00 TIMES Medical DAILY FOR Branch 10 DAYS AT ONSET OF SKIN INFECTION DOXYCYCLINE 202-0 Yes [id number] TAKE 1 [facility] HYCLATE 100 4-26 CAPSULE BY it y of mg capsule 00:00: MOUTH 2 [place] 00 TIMES Medical DAILY FOR Branch 10 DAYS AT ONSET OF SKIN INFECTION DOXYCYCLINE 2020-0 Yes [id number] TAKE 1 [facility] HYCLATE 100 4-26 CAPSULE BY it y of mg capsule 00:00: MOUTH 2 [place] 00 TIMES Medical DAILY FOR Branch 10 DAYS AT ONSET OF SKIN INFECTION DOXYCYCLINE 2020-0 Yes [id number] TAKE 1 [facility] HYCLATE 100 4-26 CAPSULE BY it y of mg capsule 00:00: MOUTH 2 [place] 00 TIMES Medical DAILY FOR Branch 10 DAYS AT ONSET OF SKIN INFECTION DOXYCYCLINE 1-0 Yes [id number] TAKE 1 [facility] HYCLATE 100 4-26 CAPSULE BY it y of mg capsule 00:00: MOUTH 2 [place] 00 TIMES Medical DAILY FOR Branch 10 DAYS AT ONSET OF SKIN INFECTION DOXYCYCLINE 1-0 Yes [id number] TAKE 1 [facility] HYCLATE 100 4-26 CAPSULE BY it y of mg capsule 00:00: MOUTH 2 [place] 00 TIMES Medical DAILY FOR Branch 10 DAYS AT ONSET OF SKIN INFECTION DOXYCYCLINE 2021-0 Yes [id number] TAKE 1 [facility] HYCLATE 100 4-26 CAPSULE BY it y of mg capsule 00:00: MOUTH 2 [place] 00 TIMES Medical DAILY FOR Branch 10 DAYS AT ONSET OF SKIN INFECTION DOXYCYCLINE 2021-0 Yes [id number] TAKE 1 [facility] HYCLATE 100 4-26 CAPSULE BY it y of mg capsule 00:00: MOUTH 2 [place] 00 TIMES Medical DAILY FOR Branch 10 DAYS AT ONSET OF SKIN INFECTION DOXYCYCLINE 2021-0 Yes [id number] TAKE 1 [facility] HYCLATE 100 4-26 CAPSULE BY it y of mg capsule 00:00: MOUTH 2 [place] 00 TIMES Medical DAILY FOR Branch 10 DAYS AT ONSET OF SKIN INFECTION DOXYCYCLINE 2021-0 Yes [id number] TAKE 1 [facility] HYCLATE 100 4-26 CAPSULE BY [facility] capsule 00:[facility] [facility] [place] [facility] DAILY FOR [facility] 10 DAYS AT ONSET OF SKIN INFECTION DOXYCYCLINE 2020-0 Yes [id number] TAKE 1 [facility] HYCLATE 100 4-26 CAPSULE BY [facility] mg capsule 00:00: [place] [facility] [place] [facility] TIMES [facility] DAILY FOR [facility] 10 DAYS AT ONSET OF SKIN INFECTION DOXYCYCLINE 2020-0 Yes [id number] TAKE 1 [facility] HYCLATE 100 4-26 CAPSULE BY [facility] mg capsule 00:00: [place]TH [facility] [place] [facility] TIMES [facility] DAILY FOR [facility] 10 DAYS AT ONSET OF SKIN INFECTION DOXYCYCLINE 2020-0 Yes [id number] TAKE 1 [facility] HYCLATE 100 4-26 CAPSULE BY [facility] mg capsule 00:00: [place]TH [facility] [place] [facility] TIMES [facility] DAILY FOR [facility] 10 DAYS AT ONSET OF SKIN INFECTION DOXYCYCLINE 2020-0 Yes [id number] TAKE 1 [facility] HYCLATE 100 4-26 CAPSULE BY [facility] mg capsule 00:00: MOUTH [facility] [place] 00 TIMES [facility] DAILY FOR [facility] 10 DAYS AT ONSET OF SKIN INFECTION DOXYCYCLINE 2020-0 Yes [id number] TAKE 1 [facility] HYCLATE 100 4-26 CAPSULE BY [facility] mg capsule 00:00: [place]TH [facility] [place] 00 TIMES [facility] DAILY FOR [facility] 10 DAYS AT ONSET OF SKIN INFECTION DOXYCYCLINE 2020-0 Yes [id number] TAKE 1 [facility] HYCLATE 100 4-26 CAPSULE BY [facility] mg capsule 00:00: MOUTH [facility] [place] 00 TIMES [facility] DAILY FOR [facility] 10 DAYS AT ONSET OF SKIN INFECTION DOXYCYCLINE 2020-0 Yes [id number] TAKE 1 [facility] HYCLATE 100 4-26 CAPSULE BY [facility] mg capsule 00:00: MOUTH [facility] [place] 00 TIMES Medical DAILY FOR [facility] 10 DAYS AT ONSET OF SKIN INFECTION DOXYCYCLINE 2021-0 Yes [id number] TAKE 1 [facility] HYCLATE 100 4-26 CAPSULE BY [facility] mg capsule 00:00: MOUTH [facility] [place] 00 TIMES Medical DAILY FOR [facility] 10 DAYS AT ONSET OF SKIN INFECTION DOXYCYCLINE 2021-0 Yes [id number] TAKE 1 [facility] HYCLATE 100 4-26 CAPSULE BY [facility] mg capsule 00:00: MOUTH 2 [place] 00 TIMES Medical DAILY FOR [facility] 10 DAYS AT ONSET OF SKIN INFECTION DOXYCYCLINE 2021-0 Yes [id number] TAKE 1 [facility] HYCLATE 100 4-26 CAPSULE BY [facility] mg capsule 00:00: MOUTH 2 [place] 00 TIMES Medical DAILY FOR [facility] 10 DAYS AT ONSET OF SKIN INFECTION DOXYCYCLINE 2021-0 Yes [id number] TAKE 1 [facility] HYCLATE 100 4-26 CAPSULE BY [facility] mg capsule 00:00: MOUTH 2 [place] 00 TIMES Medical DAILY FOR [facility] 10 DAYS AT ONSET OF SKIN INFECTION DOXYCYCLINE 2021-0 Yes [id number] TAKE 1 [facility] HYCLATE 100 4-26 CAPSULE BY [facility] mg capsule 00:00: MOUTH 2 [place] 00 TIMES Medical DAILY FOR [facility] 10 DAYS AT ONSET OF SKIN INFECTION DOXYCYCLINE 2021-0 Yes [id number] TAKE 1 [facility] HYCLATE 100 4-26 CAPSULE BY [facility] mg capsule 00:00: MOUTH 2 [place] 00 TIMES Medical DAILY FOR [facility] 10 DAYS AT ONSET OF SKIN INFECTION DOXYCYCLINE 2020-0 Yes [id number] TAKE 1 [facility] HYCLATE 100 4-26 CAPSULE BY [facility] mg capsule 00:00: MOUTH 2 [place] 00 TIMES Medical DAILY FOR [facility] 10 DAYS AT ONSET OF SKIN INFECTION DOXYCYCLINE 1-0 Yes [id number] TAKE 1 [facility] HYCLATE 100 4-26 CAPSULE BY [facility] mg capsule 00:00: MOUTH 2 [place] 00 TIMES Medical DAILY FOR [facility] 10 DAYS AT ONSET OF SKIN INFECTION DOXYCYCLINE 2020-0 Yes [id number] TAKE 1 [facility] HYCLATE 100 4-26 CAPSULE BY [facility] mg capsule 00:00: MOUTH 2 [place] 00 TIMES Medical DAILY FOR [facility] 10 DAYS AT ONSET OF SKIN INFECTION DOXYCYCLINE 2021-0 Yes [id number] TAKE 1 [facility] HYCLATE 100 4-26 CAPSULE BY [facility] mg capsule 00:00: MOUTH 2 [place] 00 TIMES Medical DAILY FOR [facility] 10 DAYS AT ONSET OF SKIN INFECTION DOXYCYCLINE 2021-0 Yes [id number] TAKE 1 [facility] HYCLATE 100 4-26 CAPSULE BY [facility] mg capsule 00:00: MOUTH 2 [place] 00 TIMES Medical DAILY FOR [facility] 10 DAYS AT ONSET OF SKIN INFECTION DOXYCYCLINE 2021-0 Yes [id number] TAKE 1 [facility] HYCLATE 100 4-26 CAPSULE BY [facility] mg capsule 00:00: MOUTH 2 [place] 00 TIMES Medical DAILY FOR [facility] 10 DAYS AT ONSET OF SKIN INFECTION DOXYCYCLINE 2021-0 Yes [id number] TAKE 1 [facility] HYCLATE 100 4-26 CAPSULE BY [facility] mg capsule 00:00: MOUTH 2 [place] 00 TIMES Medical DAILY FOR [facility] 10 DAYS AT ONSET OF SKIN INFECTION DOXYCYCLINE 202-0 Yes [id number] TAKE 1 [facility] HYCLATE 100 4-26 CAPSULE BY [facility] mg capsule 00:00: MOUTH 2 [place] 00 TIMES Medical DAILY FOR [facility] 10 DAYS AT ONSET OF SKIN INFECTION DOXYCYCLINE 2020-0 Yes [id number] TAKE 1 [facility] HYCLATE 100 4-26 CAPSULE BY [facility] mg capsule 00:00: MOUTH 2 [place] 00 TIMES Medical DAILY FOR [facility] 10 DAYS AT ONSET OF SKIN INFECTION DOXYCYCLINE 2020-0 Yes [id number] TAKE 1 [facility] HYCLATE 100 4-26 CAPSULE BY [facility] mg capsule 00:00: MOUTH 2 [place] 00 TIMES Medical DAILY FOR [facility] 10 DAYS AT ONSET OF SKIN INFECTION DOXYCYCLINE 2020-0 Yes [id number] TAKE 1 [facility] HYCLATE 100 4-26 CAPSULE BY [facility] mg capsule 00:00: MOUTH 2 [place] 00 TIMES Medical DAILY FOR [facility] 10 DAYS AT ONSET OF SKIN INFECTION DOXYCYCLINE 2020-0 Yes [id number] TAKE 1 [facility] HYCLATE 100 4-26 CAPSULE BY [facility] mg capsule 00:00: MOUTH 2 [place] 00 TIMES Medical DAILY FOR [facility] 10 DAYS AT ONSET OF SKIN INFECTION DOXYCYCLINE 2020-0 Yes [id number] TAKE 1 [facility] HYCLATE 100 4-26 CAPSULE BY [facility] mg capsule 00:00: MOUTH 2 [place] 00 TIMES Medical DAILY FOR [facility] 10 DAYS AT ONSET OF SKIN INFECTION DOXYCYCLINE 2020-0 Yes [id number] TAKE 1 [facility] HYCLATE 100 4-26 CAPSULE BY [facility] mg capsule 00:00: MOUTH 2 [place] 00 TIMES Medical DAILY FOR [facility] 10 DAYS AT ONSET OF SKIN INFECTION DOXYCYCLINE 1-0 Yes [id number] TAKE 1 [facility] HYCLATE 100 4-26 CAPSULE BY [facility] mg capsule 00:00: MOUTH 2 [place] 00 TIMES Medical DAILY FOR [facility] 10 DAYS AT ONSET OF SKIN INFECTION DOXYCYCLINE 2020-0 Yes [id number] TAKE 1 [facility] HYCLATE 100 4-26 CAPSULE BY [facility] mg capsule 00:00: MOUTH 2 [place] 00 TIMES Medical DAILY FOR [facility] 10 DAYS AT ONSET OF SKIN INFECTION DOXYCYCLINE 2021-0 Yes [id number] TAKE 1 [facility] HYCLATE 100 4-26 CAPSULE BY [facility] mg capsule 00:00: MOUTH 2 [place] 00 TIMES Medical DAILY FOR [facility] 10 DAYS AT ONSET OF SKIN INFECTION DOXYCYCLINE 2021-0 Yes [id number] TAKE 1 [facility] HYCLATE 100 4-26 CAPSULE BY [facility] mg capsule 00:00: MOUTH 2 [place] 00 TIMES Medical DAILY FOR [facility] 10 DAYS AT ONSET OF SKIN INFECTION DOXYCYCLINE 2021-0 Yes [id number] TAKE 1 [facility] HYCLATE 100 4-26 CAPSULE BY [facility] mg capsule 00:00: MOUTH 2 [place] 00 TIMES Medical DAILY FOR [facility] 10 DAYS AT ONSET OF SKIN INFECTION DOXYCYCLINE 1-0 Yes [id number] TAKE 1 [facility] HYCLATE 100 4-26 CAPSULE BY [facility] mg capsule 00:00: MOUTH 2 [place] 00 TIMES Medical DAILY FOR [facility] 10 DAYS AT ONSET OF SKIN INFECTION DOXYCYCLINE 2020-0 Yes [id number] TAKE 1 [facility] HYCLATE 100 4-26 CAPSULE BY [facility] mg capsule 00:00: MOUTH 2 [place] 00 TIMES Medical DAILY FOR [facility] 10 DAYS AT ONSET OF SKIN INFECTION DOXYCYCLINE 2020-0 Yes [id number] TAKE 1 [facility] HYCLATE 100 4-26 CAPSULE BY [facility] mg capsule 00:00: MOUTH 2 [place] 00 TIMES Medical DAILY FOR [facility] 10 DAYS AT ONSET OF SKIN INFECTION DOXYCYCLINE 1-0 Yes [id number] TAKE 1 [facility] HYCLATE 100 4-26 CAPSULE BY [facility] mg capsule 00:00: MOUTH 2 [place] 00 TIMES Medical DAILY FOR [facility] 10 DAYS AT ONSET OF SKIN INFECTION DOXYCYCLINE 1-0 Yes [id number] TAKE 1 [facility] HYCLATE 100 4-26 CAPSULE BY [facility] mg capsule 00:00: MOUTH 2 [place] 00 TIMES Medical DAILY FOR [facility] 10 DAYS AT ONSET OF SKIN INFECTION DOXYCYCLINE 1-0 Yes [id number] TAKE 1 [facility] HYCLATE 100 4-26 CAPSULE BY [facility] mg capsule 00:00: MOUTH 2 [place] 00 TIMES Medical DAILY FOR [facility] 10 DAYS AT ONSET OF SKIN INFECTION DOXYCYCLINE 2021-0 Yes [id number] TAKE 1 [facility] HYCLATE 100 4-26 CAPSULE BY [facility] mg capsule 00:00: MOUTH 2 [place] 00 TIMES Medical DAILY FOR [facility] 10 DAYS AT ONSET OF SKIN INFECTION DOXYCYCLINE 2021-0 Yes [id number] TAKE 1 [facility] HYCLATE 100 4-26 CAPSULE BY [facility] mg capsule 00:00: MOUTH 2 [place] 00 TIMES Medical DAILY FOR [facility] 10 DAYS AT ONSET OF SKIN INFECTION DOXYCYCLINE 2021-0 Yes [id number] TAKE 1 [facility] HYCLATE 100 4-26 CAPSULE BY [facility] mg capsule 00:00: MOUTH 2 [place] 00 TIMES Medical DAILY FOR [facility] 10 DAYS AT ONSET OF SKIN INFECTION DOXYCYCLINE 2021-0 Yes [id number] TAKE 1 [facility] HYCLATE 100 4-26 CAPSULE BY [facility] mg capsule 00:00: MOUTH 2 [place] 00 TIMES Medical DAILY FOR [facility] 10 DAYS AT ONSET OF SKIN INFECTION DOXYCYCLINE 2021-0 Yes [id number] TAKE 1 [facility] HYCLATE 100 4-26 CAPSULE BY [facility] mg capsule 00:00: MOUTH 2 [place] 00 TIMES Medical DAILY FOR [facility] 10 DAYS AT ONSET OF SKIN INFECTION DOXYCYCLINE 2020-0 Yes [id number] TAKE 1 [facility] HYCLATE 100 4-26 CAPSULE BY [facility] mg capsule 00:00: MOUTH 2 [place] 00 TIMES Medical DAILY FOR [facility] 10 DAYS AT ONSET OF SKIN INFECTION DOXYCYCLINE 2020-0 Yes [id number] TAKE 1 [facility] HYCLATE 100 4-26 CAPSULE BY [facility] mg capsule 00:00: MOUTH 2 [place] 00 TIMES Medical DAILY FOR [facility] 10 DAYS AT ONSET OF SKIN INFECTION DOXYCYCLINE 1-0 Yes [id number] TAKE 1 [facility] HYCLATE 100 4-26 CAPSULE BY [facility] y of mg capsule 00:00: MOUTH 2 [place] 00 TIMES Medical DAILY FOR [facility] 10 DAYS AT ONSET OF SKIN INFECTION DOXYCYCLINE 2021-0 Yes [id number] TAKE 1 [facility] HYCLATE 100 4-26 CAPSULE BY [facility] mg capsule 00:00: MOUTH 2 [place] 00 TIMES Medical DAILY FOR [facility] 10 DAYS AT ONSET OF SKIN INFECTION DOXYCYCLINE 1-0 Yes [id number] TAKE 1 [facility] HYCLATE 100 4-26 CAPSULE BY [facility] mg capsule 00:00: MOUTH 2 [place] 00 TIMES Medical DAILY FOR [facility] 10 DAYS AT ONSET OF SKIN INFECTION DOXYCYCLINE 2021-0 Yes [id number] TAKE 1 [facility] HYCLATE 100 4-26 CAPSULE BY [facility] mg capsule 00:00: MOUTH 2 [place] 00 TIMES Medical DAILY FOR [facility] 10 DAYS AT ONSET OF SKIN INFECTION DOXYCYCLINE 2021-0 Yes [id number] TAKE 1 [facility] HYCLATE 100 4-26 CAPSULE BY [facility] mg capsule 00:00: MOUTH 2 [place] 00 TIMES Medical DAILY FOR [facility] 10 DAYS AT ONSET OF SKIN INFECTION DOXYCYCLINE 2021-0 Yes [id number] TAKE 1 [facility] HYCLATE 100 4-26 CAPSULE BY [facility] mg capsule 00:00: MOUTH 2 [place] 00 TIMES Medical DAILY FOR [facility] 10 DAYS AT ONSET OF SKIN INFECTION DOXYCYCLINE 2021-0 Yes [id number] TAKE 1 [facility] HYCLATE 100 4-26 CAPSULE BY [facility] mg capsule 00:00: MOUTH 2 [place] 00 TIMES Medical DAILY FOR [facility] 10 DAYS AT ONSET OF SKIN INFECTION DOXYCYCLINE 2020-0 Yes [id number] TAKE 1 [facility] HYCLATE 100 4-26 CAPSULE BY [facility] mg capsule 00:00: MOUTH 2 [place] 00 TIMES Medical DAILY FOR [facility] 10 DAYS AT ONSET OF SKIN INFECTION DOXYCYCLINE 2020-0 Yes [id number] TAKE 1 [facility] HYCLATE 100 4-26 CAPSULE BY [facility] mg capsule 00:00: MOUTH 2 [place] 00 TIMES Medical DAILY FOR [facility] 10 DAYS AT ONSET OF SKIN INFECTION DOXYCYCLINE 2020-0 Yes [id number] TAKE 1 [facility] HYCLATE 100 4-26 CAPSULE BY [facility] mg capsule 00:00: MOUTH 2 [place] 00 TIMES Medical DAILY FOR [facility] 10 DAYS AT ONSET OF SKIN INFECTION DOXYCYCLINE 2020-0 Yes [id number] TAKE 1 [facility] HYCLATE 100 4-26 CAPSULE BY [facility] mg capsule 00:00: MOUTH 2 [place] 00 TIMES Medical DAILY FOR [facility] 10 DAYS AT ONSET OF SKIN INFECTION DOXYCYCLINE 2020-0 Yes [id number] TAKE 1 [facility] HYCLATE 100 4-26 CAPSULE BY [facility] mg capsule 00:00: MOUTH 2 [place] 00 TIMES Medical DAILY FOR [facility] 10 DAYS AT ONSET OF SKIN INFECTION DOXYCYCLINE 2020-0 Yes [id number] TAKE 1 [facility] HYCLATE 100 4-26 CAPSULE BY [facility] mg capsule 00:00: MOUTH 2 [place] 00 TIMES Medical DAILY FOR [facility] 10 DAYS AT ONSET OF SKIN INFECTION DOXYCYCLINE 2020-0 Yes [id number] TAKE 1 [facility] HYCLATE 100 4-26 CAPSULE BY [facility] mg capsule 00:00: MOUTH 2 [place] 00 TIMES Medical DAILY FOR [facility] 10 DAYS AT ONSET OF SKIN INFECTION DOXYCYCLINE 2020-0 Yes [id number] TAKE 1 [facility] HYCLATE 100 4-26 CAPSULE BY [facility] mg capsule 00:00: MOUTH 2 [place] 00 TIMES Medical DAILY FOR [facility] 10 DAYS AT ONSET OF SKIN INFECTION DOXYCYCLINE 202-0 Yes [id number] TAKE 1 [facility] HYCLATE 100 4-26 CAPSULE BY [facility] mg capsule 00:00: MOUTH 2 [place] 00 TIMES Medical DAILY FOR [facility] 10 DAYS AT ONSET OF SKIN INFECTION DOXYCYCLINE 2020-0 Yes [id number] TAKE 1 [facility] HYCLATE 100 4-26 CAPSULE BY [facility] mg capsule 00:00: MOUTH 2 [place] 00 TIMES Medical DAILY FOR [facility] 10 DAYS AT ONSET OF SKIN INFECTION DOXYCYCLINE 2021-0 Yes [id number] TAKE 1 [facility] HYCLATE 100 4-26 CAPSULE BY [facility] mg capsule 00:00: MOUTH 2 [place] 00 TIMES Medical DAILY FOR [facility] 10 DAYS AT ONSET OF SKIN INFECTION DOXYCYCLINE 2021-0 Yes [id number] TAKE 1 [facility] HYCLATE 100 4-26 CAPSULE BY [facility] mg capsule 00:00: MOUTH 2 [place] 00 TIMES Medical DAILY FOR [facility] 10 DAYS AT ONSET OF SKIN INFECTION DOXYCYCLINE 2021-0 Yes [id number] TAKE 1 [facility] HYCLATE 100 4-26 CAPSULE BY [facility] mg capsule 00:00: MOUTH 2 [place] 00 TIMES Medical DAILY FOR [facility] 10 DAYS AT ONSET OF SKIN INFECTION DOXYCYCLINE 2020-0 Yes [id number] TAKE 1 [facility] HYCLATE 100 4-26 CAPSULE BY [facility] y of mg capsule 00:00: MOUTH 2 [place] 00 TIMES Medical DAILY FOR [facility] 10 DAYS AT ONSET OF SKIN INFECTION DOXYCYCLINE 2020-0 Yes [id number] TAKE 1 [facility] HYCLATE 100 4-26 CAPSULE BY [facility] y [facility] mg capsule 00:00: MOUTH 2 [place] 00 TIMES Medical DAILY FOR [facility] 10 DAYS AT ONSET OF SKIN INFECTION DOXYCYCLINE 1-0 Yes [id number] TAKE 1 [facility] HYCLATE 100 4-26 CAPSULE BY [facility] mg capsule 00:00: MOUTH 2 [place] 00 TIMES Medical DAILY FOR [facility] 10 DAYS AT ONSET OF SKIN INFECTION DOXYCYCLINE 1-0 Yes [id number] TAKE 1 [facility] HYCLATE 100 4-26 CAPSULE BY [facility] y of mg capsule 00:00: MOUTH 2 [place] 00 TIMES Medical DAILY FOR [facility] 10 DAYS AT ONSET OF SKIN INFECTION DOXYCYCLINE 2021-0 Yes [id number] TAKE 1 [facility] HYCLATE 100 4-26 CAPSULE BY [facility] y of mg capsule 00:00: MOUTH 2 [place] 00 TIMES Medical DAILY FOR [facility] 10 DAYS AT ONSET OF SKIN INFECTION DOXYCYCLINE 2021-0 Yes [id number] TAKE 1 [facility] HYCLATE 100 4-26 CAPSULE BY [facility] y of mg capsule 00:00: MOUTH 2 [place] 00 TIMES Medical DAILY FOR [facility] 10 DAYS AT ONSET OF SKIN INFECTION DOXYCYCLINE 2021-0 Yes [id number] TAKE 1 [facility] HYCLATE 100 4-26 CAPSULE BY [facility] y of mg capsule 00:00: MOUTH 2 [place] 00 TIMES Medical DAILY FOR [facility] 10 DAYS AT ONSET OF SKIN INFECTION DOXYCYCLINE 2021-0 Yes [id number] TAKE 1 [facility] HYCLATE 100 4-26 CAPSULE BY [facility] y of mg capsule 00:00: MOUTH 2 [place] 00 TIMES Medical DAILY FOR [facility] 10 DAYS AT ONSET OF SKIN INFECTION DOXYCYCLINE 2020-0 Yes [id number] TAKE 1 [facility] HYCLATE 100 4-26 CAPSULE BY [facility] y of mg capsule 00:00: MOUTH 2 [place] 00 TIMES Medical DAILY FOR [facility] 10 DAYS AT ONSET OF SKIN INFECTION DOXYCYCLINE 2020-0 Yes [id number] TAKE 1 [facility] HYCLATE 100 4-26 CAPSULE BY [facility] y of mg capsule 00:00: MOUTH 2 [place] 00 TIMES Medical DAILY FOR [facility] 10 DAYS AT ONSET OF SKIN INFECTION DOXYCYCLINE 2020-0 Yes [id number] TAKE 1 [facility] HYCLATE 100 4-26 CAPSULE BY [facility] y of mg capsule 00:00: MOUTH 2 [place] 00 TIMES Medical DAILY FOR [facility] 10 DAYS AT ONSET OF SKIN INFECTION DOXYCYCLINE 2020-0 Yes [id number] TAKE 1 [facility] HYCLATE 100 4-26 CAPSULE BY it y of mg capsule 00:00: MOUTH 2 [place] 00 TIMES Medical DAILY FOR [facility] 10 DAYS AT ONSET OF SKIN INFECTION DOXYCYCLINE 2020-0 Yes [id number] TAKE 1 [facility] HYCLATE 100 4-26 CAPSULE BY it y of mg capsule 00:00: MOUTH 2 [place] 00 TIMES Medical DAILY FOR [facility] 10 DAYS AT ONSET OF SKIN INFECTION DOXYCYCLINE 2020-0 Yes [id number] TAKE 1 [facility] HYCLATE 100 4-26 CAPSULE BY it y of mg capsule 00:00: MOUTH 2 [place] 00 TIMES Medical DAILY FOR [facility] 10 DAYS AT ONSET OF SKIN INFECTION DOXYCYCLINE 2020-0 Yes [id number] TAKE 1 [facility] HYCLATE 100 4-26 CAPSULE BY it y of mg capsule 00:00: MOUTH 2 [place] 00 TIMES Medical DAILY FOR [facility] 10 DAYS AT ONSET OF SKIN INFECTION METOPROLOL Yes TAKE 1 [facility] SUCCINATE 3-30 TABLET BY ity o f XL 50 mg 24 00:00: MOUTH [place] hr tablet 00 EVERY DAY Medic al WITH FOOD Branch Blood-Gluco Yes [id number] Use as [facility] se Meter 3-30 directed ity of (ONETOUCH 00:00: for BID [place] ULTRA2 00 blood Medical METER) Kit glucose Branch monitoring for ICD E11.9 METOPROLOL Yes TAKE 1 [facility] SUCCINATE 3-30 TABLET BY ity o f XL 50 mg 24 00:00: MOUTH [place] hr tablet 00 EVERY DAY Medic al WITH FOOD Branch Blood-Gluco 2020-0 Yes [id number] Use as [facility] se Meter 3-30 directed ity of (ONETOUCH 00:00: for BID [place] ULTRA2 00 blood Medical METER) Kit glucose Branch monitoring for ICD E11.9 METOPROLOL 2020- Yes TAKE 1 [facility] SUCCINATE 3-30 TABLET BY ity o f XL 50 mg 24 00:00: MOUTH [place] hr tablet 00 EVERY DAY Medic al WITH FOOD Branch Blood-Gluco 2020-0 Yes [id number] Use as [facility] se Meter 3-30 directed ity of (ONETOUCH 00:00: for BID [place] ULTRA2 00 blood Medical METER) Kit glucose Branch monitoring for ICD E11.9 METOPROLOL Yes TAKE 1 [facility] SUCCINATE 3-30 TABLET BY ity o f XL 50 mg 24 00:00: MOUTH [place] hr tablet 00 EVERY DAY Medic al WITH FOOD Branch Blood-Gluco 2020-0 Yes [id number] Use as [facility] se Meter 3-30 directed ity of (ONETOUCH 00:00: for BID [place] ULTRA2 00 blood Medical METER) Kit glucose Branch monitoring for ICD E11.9 METOPROLOL Yes TAKE 1 [facility] SUCCINATE 3-30 TABLET BY ity o f XL 50 mg 24 00:00: MOUTH [place] hr tablet 00 EVERY DAY Medic al WITH FOOD Branch Blood-Gluco 2020-0 Yes [id number] Use as [facility] se Meter 3-30 directed ity of (ONETOUCH 00:00: for BID [place] ULTRA2 00 blood Medical METER) Kit glucose Branch monitoring for ICD E11.9 METOPROLOL 2020- Yes TAKE 1 [facility] SUCCINATE 3-30 TABLET BY ity o f XL 50 mg 24 00:00: MOUTH [place] hr tablet 00 EVERY DAY Medic al WITH FOOD Branch Blood-Gluco 2020-0 Yes [id number] Use as [facility] se Meter 3-30 directed ity of (ONETOUCH 00:00: for BID [place] ULTRA2 00 blood Medical METER) Kit glucose Branch monitoring for ICD E11.9 METOPROLOL 2020- Yes TAKE 1 [facility] SUCCINATE 3-30 TABLET BY it[facility] o f XL 50 mg 24 00:00: MOUTH [place] hr tablet 00 EVERY DAY Medic al WITH FOOD Branch Blood-Gluco 2020-0 Yes [id number] Use as [facility] se Meter 3-30 directed ity of (ONETOUCH 00:00: for BID [place] ULTRA2 00 blood Medical METER) Kit glucose Branch monitoring for ICD E11.9 METOPROLOL 2020-0 Yes TAKE 1 [facility] SUCCINATE 3-30 TABLET BY ity o f XL 50 mg 24 00:00: MOUTH [place] hr tablet 00 EVERY DAY Medic al WITH FOOD Branch Blood-Gluco 2020-0 Yes [id number] Use as [facility] se Meter 3-30 directed ity of (ONETOUCH 00:00: for BID [place] ULTRA2 00 blood Medical METER) Kit glucose Branch monitoring for ICD E11.9 Blood-Gluco 1-0 Yes [id number] Use as [facility] se Meter 3-30 directed ity of (ONETOUCH 00:00: for BID [place] ULTRA2 00 blood Medical METER) Kit glucose Branch monitoring for ICD E11.9 Blood-Gluco 2021-0 Yes [id number] Use as [facility] se Meter 3-30 directed ity of (ONETOUCH 00:00: for BID [place] ULTRA2 00 blood Medical METER) Kit glucose Branch monitoring for ICD E11.9 Blood-Gluco 1-0 Yes [id number] Use as [facility] se Meter 3-30 directed ity of (ONETOUCH 00:00: for BID [place] ULTRA2 00 blood Medical METER) Kit glucose Branch monitoring for ICD E11.9 Blood-Gluco 2021-0 Yes [id number] Use as [facility] se Meter 3-30 directed ity of (ONETOUCH 00:00: for BID [place] ULTRA2 00 blood Medical METER) Kit glucose Branch monitoring for ICD E11.9 Blood-Gluco 2021-0 Yes [id number] Use as [facility] se Meter 3-30 directed ity of (ONETOUCH 00:00: for BID [place] ULTRA2 00 blood Medical METER) Kit glucose Branch monitoring for ICD E11.9 Blood-Gluco 2021-0 Yes [id number] Use as [facility] se Meter 3-30 directed ity of (ONETOUCH 00:00: for BID [place] ULTRA2 00 blood Medical METER) Kit glucose Branch monitoring for ICD E11.9 Blood-Gluco 2021-0 Yes [id number] Use as [facility] se Meter 3-30 directed ity of (ONETOUCH 00:00: for BID [place] ULTRA2 00 blood Medical METER) Kit glucose Branch monitoring for ICD E11.9 Blood-Gluco 2021-0 Yes [id number] Use as [facility] se Meter 3-30 directed ity of (ONETOUCH 00:00: for BID [place] ULTRA2 00 blood Medical METER) Kit glucose Branch monitoring for ICD E11.9 Blood-Gluco 2021-0 Yes [id number] Use as [facility] se Meter 3-30 directed ity of (ONETOUCH 00:00: for BID [place] ULTRA2 00 blood Medical METER) Kit glucose Branch monitoring for ICD E11.9 Blood-Gluco 2021-0 Yes [id number] Use as [facility] se Meter 3-30 directed ity of (ONETOUCH 00:00: for BID [place] ULTRA2 00 blood Medical METER) Kit glucose Branch monitoring for ICD E11.9 Blood-Gluco 2021-0 Yes [id number] Use as [facility] se Meter 3-30 directed ity of (ONETOUCH 00:00: for BID [place] ULTRA2 00 blood Medical METER) Kit glucose Branch monitoring for ICD E11.9 Blood-Gluco 2021-0 Yes [id number] Use as [facility] se Meter 3-30 directed ity of (ONETOUCH 00:00: for BID [place] ULTRA2 00 blood Medical METER) Kit glucose Branch monitoring for ICD E11.9 Blood-Gluco 2021-0 Yes [id number] Use as [facility] se Meter 3-30 directed ity of (ONETOUCH 00:00: for BID [place] ULTRA2 00 blood Medical METER) Kit glucose Branch monitoring for ICD E11.9 Blood-Gluco 2021-0 Yes [id number] Use as [facility] se Meter 3-30 directed ity of (ONETOUCH 00:00: for BID [place] ULTRA2 00 blood Medical METER) Kit glucose Branch monitoring for ICD E11.9 Blood-Gluco 2021-0 Yes [id number] Use as [facility] se Meter 3-30 directed ity of (ONETOUCH 00:00: for BID [place] ULTRA2 00 blood Medical METER) Kit glucose Branch monitoring for ICD E11.9 Blood-Gluco 2021-0 Yes [id number] Use as [facility] se Meter 3-30 directed ity of (ONETOUCH 00:00: for BID [place] ULTRA2 00 blood Medical METER) Kit glucose Branch monitoring for ICD E11.9 Blood-Gluco 2021-0 Yes [id number] Use as [facility] se Meter 3-30 directed ity of (ONETOUCH 00:00: for BID [place] ULTRA2 00 blood Medical METER) Kit glucose Branch monitoring for ICD E11.9 Blood-Gluco 2021-0 Yes [id number] Use as [facility] se Meter 3-30 directed ity of (ONETOUCH 00:00: for BID [place] ULTRA2 00 blood Medical METER) Kit glucose Branch monitoring for ICD E11.9 Blood-Gluco 2021-0 Yes [id number] Use as [facility] se Meter 3-30 directed ity of (ONETOUCH 00:00: for BID [place] ULTRA2 00 blood Medical METER) Kit glucose Branch monitoring for ICD E11.9 Blood-Gluco 2021-0 Yes [id number] Use as [facility] se Meter 3-30 directed ity of (ONETOUCH 00:00: for BID [place] ULTRA2 00 blood Medical METER) Kit glucose Branch monitoring for ICD E11.9 Blood-Gluco 2021-0 Yes [id number] Use as [facility] se Meter 3-30 directed ity of (ONETOUCH 00:00: for BID [place] ULTRA2 00 blood Medical METER) Kit glucose Branch monitoring for ICD E11.9 Blood-Gluco 2021-0 Yes [id number] Use as [facility] se Meter 3-30 directed ity of (ONETOUCH 00:00: for BID [place] ULTRA2 00 blood Medical METER) Kit glucose Branch monitoring for ICD E11.9 Blood-Gluco 2021-0 Yes [id number] Use as [facility] se Meter 3-30 directed ity of (ONETOUCH 00:00: for BID [place] ULTRA2 00 blood Medical METER) Kit glucose Branch monitoring for ICD E11.9 Blood-Gluco 2021-0 Yes [id number] Use as [facility] se Meter 3-30 directed ity of (ONETOUCH 00:00: for BID [place] ULTRA2 00 blood Medical METER) Kit glucose Branch monitoring for ICD E11.9 Blood-Gluco 2021-0 Yes [id number] Use as [facility] se Meter 3-30 directed ity of (ONETOUCH 00:00: for BID [place] ULTRA2 00 blood Medical METER) Kit glucose Branch monitoring for ICD E11.9 Blood-Gluco 2021-0 Yes [id number] Use as [facility] se Meter 3-30 directed ity of (ONETOUCH 00:00: for BID [place] ULTRA2 00 blood Medical METER) Kit glucose Branch monitoring for ICD E11.9 Blood-Gluco 2021-0 Yes [id number] Use as [facility] se Meter 3-30 directed ity of (ONETOUCH 00:00: for BID [place] ULTRA2 00 blood Medical METER) Kit glucose Branch monitoring for ICD E11.9 Blood-Gluco 2021-0 Yes [id number] Use as [facility] se Meter 3-30 directed ity of (ONETOUCH 00:00: for BID [place] ULTRA2 00 blood Medical METER) Kit glucose Branch monitoring for ICD E11.9 Blood-Gluco 2021-0 Yes [id number] Use as [facility] se Meter 3-30 directed ity of (ONETOUCH 00:00: for BID [place] ULTRA2 00 blood Medical METER) Kit glucose Branch monitoring for ICD E11.9 Blood-Gluco 2021-0 Yes [id number] Use as [facility] se Meter 3-30 directed ity of (ONETOUCH 00:00: for BID [place] ULTRA2 00 blood Medical METER) Kit glucose Branch monitoring for ICD E11.9 Blood-Gluco 2021-0 Yes [id number] Use as [facility] se Meter 3-30 directed ity of (ONETOUCH 00:00: for BID [place] ULTRA2 00 blood Medical METER) Kit glucose Branch monitoring for ICD E11.9 Blood-Gluco 2021-0 Yes [id number] Use as [facility] se Meter 3-30 directed ity of (ONETOUCH 00:00: for BID [place] ULTRA2 00 blood Medical METER) Kit glucose Branch monitoring for ICD E11.9 Blood-Gluco 2021-0 Yes [id number] Use as [facility] se Meter 3-30 directed ity of (ONETOUCH 00:00: for BID [place] ULTRA2 00 blood Medical METER) Kit glucose Branch monitoring for ICD E11.9 Blood-Gluco 2021-0 Yes [id number] Use as [facility] se Meter 3-30 directed ity of (ONETOUCH 00:00: for BID [place] ULTRA2 00 blood Medical METER) Kit glucose Branch monitoring for ICD E11.9 Blood-Gluco 2021-0 Yes [id number] Use as [facility] se Meter 3-30 directed ity of (ONETOUCH 00:00: for BID [place] ULTRA2 00 blood Medical METER) Kit glucose Branch monitoring for ICD E11.9 Blood-Gluco 2021-0 Yes [id number] Use as [facility] Meter 3-30 directed ity of (ONETOUCH 00:00: for BID [place] ULTRA2 00 blood Medical METER) Kit glucose Branch monitoring for ICD E11.9 Blood-Gluco 2021-0 Yes [id number] Use as [facility] se Meter 3-30 directed ity of (ONETOUCH 00:00: for BID [place] ULTRA2 00 blood Medical METER) Kit glucose Branch monitoring for ICD E11.9 Blood-Gluco 2021-0 Yes [id number] Use as [facility] se Meter 3-30 directed ity of (ONETOUCH 00:00: for BID [place] ULTRA2 00 blood Medical METER) Kit glucose Branch monitoring for ICD E11.9 Blood-Gluco 2021-0 Yes [id number] Use as [facility] se Meter 3-30 directed ity of (ONETOUCH 00:00: for BID [place] ULTRA2 00 blood Medical METER) Kit glucose Branch monitoring for ICD E11.9 Blood-Gluco 2021-0 Yes [id number] Use as [facility] se Meter 3-30 directed ity of (ONETOUCH 00:00: for BID [place] ULTRA2 00 blood Medical METER) Kit glucose Branch monitoring for ICD E11.9 Blood-Gluco 2021-0 Yes [id number] Use as [facility] se Meter 3-30 directed ity of (ONETOUCH 00:00: for BID [place] ULTRA2 00 blood Medical METER) Kit glucose Branch monitoring for ICD E11.9 Blood-Gluco 2021-0 Yes [id number] Use as [facility] se Meter 3-30 directed ity of (ONETOUCH 00:00: for BID [place] ULTRA2 00 blood Medical METER) Kit glucose Branch monitoring for ICD E11.9 Blood-Gluco 2021-0 Yes [id number] Use as [facility] se Meter 3-30 directed ity of (ONETOUCH 00:00: for BID [place] ULTRA2 00 blood Medical METER) Kit glucose Branch monitoring for ICD E11.9 Blood-Gluco 2021-0 Yes [id number] Use as [facility] se Meter 3-30 directed ity of (ONETOUCH 00:00: for BID [place] ULTRA2 00 blood Medical METER) Kit glucose Branch monitoring for ICD E11.9 Blood-Gluco 2021-0 Yes [id number] Use as [facility] se Meter 3-30 directed ity of (ONETOUCH 00:00: for BID [place] ULTRA2 00 blood Medical METER) Kit glucose Branch monitoring for ICD E11.9 Blood-Gluco 2021-0 Yes [id number] Use as [facility] se Meter 3-30 directed ity of (ONETOUCH 00:00: for BID [place] ULTRA2 00 blood Medical METER) Kit glucose Branch monitoring for ICD E11.9 Blood-Gluco 2021-0 Yes [id number] Use as [facility] se Meter 3-30 directed ity of (ONETOUCH 00:00: for BID [place] ULTRA2 00 blood Medical METER) Kit glucose Branch monitoring for ICD E11.9 Blood-Gluco 2021-0 Yes [id number] Use as [facility] se Meter 3-30 directed ity of (ONETOUCH 00:00: for BID [place] ULTRA2 00 blood Medical METER) Kit glucose Branch monitoring for ICD E11.9 Blood-Gluco 2021-0 Yes [id number] Use as [facility] se Meter 3-30 directed ity of (ONETOUCH 00:00: for BID [place] ULTRA2 00 blood Medical METER) Kit glucose Branch monitoring for ICD E11.9 Blood-Gluco 2021-0 Yes [id number] Use as [facility] se Meter 3-30 directed ity of (ONETOUCH 00:00: for BID [place] ULTRA2 00 blood Medical METER) Kit glucose Branch monitoring for ICD E11.9 Blood-Gluco 2021-0 Yes [id number] Use as [facility] se Meter 3-30 directed ity of (ONETOUCH 00:00: for BID [place] ULTRA2 00 blood Medical METER) Kit glucose Branch monitoring for ICD E11.9 Blood-Gluco 2021-0 Yes [id number] Use as [facility] se Meter 3-30 directed ity of (ONETOUCH 00:00: for BID [place] ULTRA2 00 blood Medical METER) Kit glucose Branch monitoring for ICD E11.9 Blood-Gluco 2021-0 Yes [id number] Use as [facility] se Meter 3-30 directed ity of (ONETOUCH 00:00: for BID [place] ULTRA2 00 blood Medical METER) Kit glucose Branch monitoring for ICD E11.9 Blood-Gluco 2021-0 Yes [id number] Use as [facility] se Meter 3-30 directed ity of (ONETOUCH 00:00: for BID [place] ULTRA2 00 blood Medical METER) Kit glucose Branch monitoring for ICD E11.9 Blood-Gluco 2021-0 Yes [id number] Use as [facility] se Meter 3-30 directed ity of (ONETOUCH 00:00: for BID [place] ULTRA2 00 blood Medical METER) Kit glucose Branch monitoring for ICD E11.9 Blood-Gluco 2021-0 Yes [id number] Use as [facility] se Meter 3-30 directed ity of (ONETOUCH 00:00: for BID [place] ULTRA2 00 blood Medical METER) Kit glucose Branch monitoring for ICD E11.9 Blood-Gluco 2021-0 Yes [id number] Use as [facility] se Meter 3-30 directed ity of (ONETOUCH 00:00: for BID [place] ULTRA2 00 blood Medical METER) Kit glucose Branch monitoring for ICD E11.9 Blood-Gluco 2021-0 Yes [id number] Use as [facility] se Meter 3-30 directed ity of (ONETOUCH 00:00: for BID [place] ULTRA2 00 blood Medical METER) Kit glucose Branch monitoring for ICD E11.9 Blood-Gluco 2021-0 Yes [id number] Use as [facility] se Meter 3-30 directed ity of (ONETOUCH 00:00: for BID [place] ULTRA2 00 blood Medical METER) Kit glucose Branch monitoring for ICD E11.9 Blood-Gluco 2021-0 Yes [id number] Use as [facility] se Meter 3-30 directed ity of (ONETOUCH 00:00: for BID [place] ULTRA2 00 blood Medical METER) Kit glucose Branch monitoring for ICD E11.9 Blood-Gluco 2021-0 Yes [id number] Use as [facility] se Meter 3-30 directed ity of (ONETOUCH 00:00: for BID [place] ULTRA2 00 blood Medical METER) Kit glucose Branch monitoring for ICD E11.9 Blood-Gluco 2021-0 Yes [id number] Use as [facility] se Meter 3-30 directed ity of (ONETOUCH 00:00: for BID [place] ULTRA2 00 blood Medical METER) Kit glucose Branch monitoring for ICD E11.9 Blood-Gluco 2021-0 Yes [id number] Use as [facility] se Meter 3-30 directed ity of (ONETOUCH 00:00: for BID [place] ULTRA2 00 blood Medical METER) Kit glucose Branch monitoring for ICD E11.9 Blood-Gluco 2021-0 Yes [id number] Use as [facility] se Meter 3-30 directed ity of (ONETOUCH 00:00: for BID [place] ULTRA2 00 blood Medical METER) Kit glucose Branch monitoring for ICD E11.9 Blood-Gluco 2021-0 Yes [id number] Use as [facility] se Meter 3-30 directed ity of (ONETOUCH 00:00: for BID [place] ULTRA2 00 blood Medical METER) Kit glucose Branch monitoring for ICD E11.9 Blood-Gluco 2021-0 Yes [id number] Use as [facility] se Meter 3-30 directed ity of (ONETOUCH 00:00: for BID [place] ULTRA2 00 blood Medical METER) Kit glucose Branch monitoring for ICD E11.9 Blood-Gluco 2021-0 Yes [id number] Use as [facility] se Meter 3-30 directed ity of (ONETOUCH 00:00: for BID [place] ULTRA2 00 blood Medical METER) Kit glucose Branch monitoring for ICD E11.9 Blood-Gluco 2021-0 Yes [id number] Use as [facility] se Meter 3-30 directed ity of (ONETOUCH 00:00: for BID [place] ULTRA2 00 blood Medical METER) Kit glucose Branch monitoring for ICD E11.9 Blood-Gluco 2021-0 Yes [id number] Use as [facility] se Meter 3-30 directed ity of (ONETOUCH 00:00: for BID [place] ULTRA2 00 blood Medical METER) Kit glucose Branch monitoring for ICD E11.9 Blood-Gluco 2021-0 Yes [id number] Use as [facility] se Meter 3-30 directed ity of (ONETOUCH 00:00: for BID [place] ULTRA2 00 blood Medical METER) Kit glucose Branch monitoring for ICD E11.9 Blood-Gluco 2021-0 Yes [id number] Use as [facility] se Meter 3-30 directed ity of (ONETOUCH 00:00: for BID [place] ULTRA2 00 blood Medical METER) Kit glucose Branch monitoring for ICD E11.9 Blood-Gluco 2021-0 Yes [id number] Use as [facility] se Meter 3-30 directed ity of (ONETOUCH 00:00: for BID [place] ULTRA2 00 blood Medical METER) Kit glucose Branch monitoring for ICD E11.9 Blood-Gluco 2021-0 Yes [id number] Use as [facility] se Meter 3-30 directed ity of (ONETOUCH 00:00: for BID [place] ULTRA2 00 blood Medical METER) Kit glucose Branch monitoring for ICD E11.9 Blood-Gluco 2021-0 Yes [id number] Use as [facility] se Meter 3-30 directed ity of (ONETOUCH 00:00: for BID [place] ULTRA2 00 blood Medical METER) Kit glucose Branch monitoring for ICD E11.9 Blood-Gluco 2021-0 Yes [id number] Use as [facility] se Meter 3-30 directed ity of (ONETOUCH 00:00: for BID [place] ULTRA2 00 blood Medical METER) Kit glucose Branch monitoring for ICD E11.9 Blood-Gluco 2021-0 Yes [id number] Use as [facility] se Meter 3-30 directed ity of (ONETOUCH 00:00: for BID [place] ULTRA2 00 blood Medical METER) Kit glucose Branch monitoring for ICD E11.9 Blood-Gluco 2021-0 Yes [id number] Use as [facility] se Meter 3-30 directed ity of (ONETOUCH 00:00: for BID [place] ULTRA2 00 blood Medical METER) Kit glucose Branch monitoring for ICD E11.9 Blood-Gluco 2021-0 Yes [id number] Use as [facility] se Meter 3-30 directed ity of (ONETOUCH 00:00: for BID [place] ULTRA2 00 blood Medical METER) Kit glucose Branch monitoring for ICD E11.9 Blood-Gluco 2021-0 Yes [id number] Use as [facility] se Meter 3-30 directed ity of (ONETOUCH 00:00: for BID [place] ULTRA2 00 blood Medical METER) Kit glucose Branch monitoring for ICD E11.9 Blood-Gluco 2021-0 Yes [id number] Use as [facility] se Meter 3-30 directed ity of (ONETOUCH 00:00: for BID [place] ULTRA2 00 blood Medical METER) Kit glucose Branch monitoring for ICD E11.9 Blood-Gluco 2021-0 Yes [id number] Use as [facility] se Meter 3-30 directed ity of (ONETOUCH 00:00: for BID [place] ULTRA2 00 blood Medical METER) Kit glucose Branch monitoring for ICD E11.9 Blood-Gluco 2021-0 Yes [id number] Use as [facility] se Meter 3-30 directed ity of (ONETOUCH 00:00: for BID [place] ULTRA2 00 blood Medical METER) Kit glucose Branch monitoring for ICD E11.9 Blood-Gluco 2021-0 Yes [id number] Use as [facility] se Meter 3-30 directed ity of (ONETOUCH 00:00: for BID [place] ULTRA2 00 blood Medical METER) Kit glucose Branch monitoring for ICD E11.9 Blood-Gluco 2021-0 Yes [id number] Use as [facility] se Meter 3-30 directed ity of (ONETOUCH 00:00: for BID [place] ULTRA2 00 blood Medical METER) Kit glucose Branch monitoring for ICD E11.9 Blood-Gluco 2021-0 Yes [id number] Use as [facility] se Meter 3-30 directed ity of (ONETOUCH 00:00: for BID [place] ULTRA2 00 blood Medical METER) Kit glucose Branch monitoring for ICD E11.9 Blood-Gluco 2021-0 Yes [id number] Use as [facility] se Meter 3-30 directed ity of (ONETOUCH 00:00: for BID [place] ULTRA2 00 blood Medical METER) Kit glucose Branch monitoring for ICD E11.9 Blood-Gluco 2021-0 Yes [id number] Use as [facility] se Meter 3-30 directed ity of (ONETOUCH 00:00: for BID [place] ULTRA2 00 blood Medical METER) Kit glucose Branch monitoring for ICD E11.9 Blood-Gluco 2021-0 Yes [id number] Use as [facility] se Meter 3-30 directed ity of (ONETOUCH 00:00: for BID [place] ULTRA2 00 blood Medical METER) Kit glucose Branch monitoring for ICD E11.9 Blood-Gluco 2021-0 Yes [id number] Use as [facility] se Meter 3-30 directed ity of (ONETOUCH 00:00: for BID [place] ULTRA2 00 blood Medical METER) Kit glucose Branch monitoring for ICD E11.9 Blood-Gluco 2021-0 Yes [id number] Use as [facility] se Meter 3-30 directed ity of (ONETOUCH 00:00: for BID [place] ULTRA2 00 blood Medical METER) Kit glucose Branch monitoring for ICD E11.9 Blood-Gluco 2021-0 Yes [id number] Use as [facility] se Meter 3-30 directed ity of (ONETOUCH 00:00: for BID [place] ULTRA2 00 blood Medical METER) Kit glucose Branch monitoring for ICD E11.9 Blood-Gluco 2021-0 Yes [id number] Use as [facility] se Meter 3-30 directed ity of (ONETOUCH 00:00: for BID [place] ULTRA2 00 blood Medical METER) Kit glucose Branch monitoring for ICD E11.9 Blood-Gluco 2021-0 Yes [id number] Use as [facility] se Meter 3-30 directed ity of (ONETOUCH 00:00: for BID [place] ULTRA2 00 blood Medical METER) Kit glucose Branch monitoring for ICD E11.9 Blood-Gluco 2021-0 Yes [id number] Use as [facility] se Meter 3-30 directed ity of (ONETOUCH 00:00: for BID [place] ULTRA2 00 blood Medical METER) Kit glucose Branch monitoring for ICD E11.9 Blood-Gluco 2021-0 Yes [id number] Use as [facility] se Meter 3-30 directed ity of (ONETOUCH 00:00: for BID [place] ULTRA2 00 blood Medical METER) Kit glucose Branch monitoring for ICD E11.9 Blood-Gluco 2021-0 Yes [id number] Use as [facility] se Meter 3-30 directed ity of (ONETOUCH 00:00: for BID [place] ULTRA2 00 blood Medical METER) Kit glucose Branch monitoring for ICD E11.9 Blood-Gluco 2021-0 Yes [id number] Use as [facility] se Meter 3-30 directed ity of (ONETOUCH 00:00: for BID [place] ULTRA2 00 blood Medical METER) Kit glucose Branch monitoring for ICD E11.9 Blood-Gluco 2021-0 Yes [id number] Use as [facility] se Meter 3-30 directed ity of (ONETOUCH 00:00: for BID [place] ULTRA2 00 blood Medical METER) Kit glucose Branch monitoring for ICD E11.9 Blood-Gluco 2021-0 Yes [id number] Use as [facility] se Meter 3-30 directed ity of (ONETOUCH 00:00: for BID [place] ULTRA2 00 blood Medical METER) Kit glucose Branch monitoring for ICD E11.9 Blood-Gluco 2021-0 Yes [id number] Use as [facility] se Meter 3-30 directed ity of (ONETOUCH 00:00: for BID [place] ULTRA2 00 blood Medical METER) Kit glucose Branch monitoring for ICD E11.9 Blood-Gluco 2021-0 Yes [id number] Use as [facility] se Meter 3-30 directed ity of (ONETOUCH 00:00: for BID [place] ULTRA2 00 blood Medical METER) Kit glucose Branch monitoring for ICD E11.9 Blood-Gluco 2021-0 Yes [id number] Use as [facility] se Meter 3-30 directed ity of (ONETOUCH 00:00: for BID [place] ULTRA2 00 blood Medical METER) Kit glucose Branch monitoring for ICD E11.9 Blood-Gluco 2021-0 Yes [id number] Use as [facility] se Meter 3-30 directed ity of (ONETOUCH 00:00: for BID [place] ULTRA2 00 blood Medical METER) Kit glucose Branch monitoring for ICD E11.9 Blood-Gluco 2021-0 Yes [id number] Use as [facility] se Meter 3-30 directed ity of (ONETOUCH 00:00: for BID [place] ULTRA2 00 blood Medical METER) Kit glucose Branch monitoring for ICD E11.9 Blood-Gluco 2021-0 Yes [id number] Use as [facility] se Meter 3-30 directed ity of (ONETOUCH 00:00: for BID [place] ULTRA2 00 blood Medical METER) Kit glucose Branch monitoring for ICD E11.9 Blood-Gluco 2021-0 Yes [id number] Use as [facility] se Meter 3-30 directed ity of (ONETOUCH 00:00: for BID [place] ULTRA2 00 blood Medical METER) Kit glucose Branch monitoring for ICD E11.9 Blood-Gluco 2021-0 Yes [id number] Use as [facility] se Meter 3-30 directed ity of (ONETOUCH 00:00: for BID [place] ULTRA2 00 blood Medical METER) Kit glucose Branch monitoring for ICD E11.9 Blood-Gluco 2021-0 Yes [id number] Use as [facility] se Meter 3-30 directed ity of (ONETOUCH 00:00: for BID [place] ULTRA2 00 blood Medical METER) Kit glucose Branch monitoring for ICD E11.9 Blood-Gluco 2021-0 Yes [id number] Use as [facility] se Meter 3-30 directed ity of (ONETOUCH 00:00: for BID [place] ULTRA2 00 blood Medical METER) Kit glucose Branch monitoring for ICD E11.9 Blood-Gluco 2021-0 Yes [id number] Use as [facility] se Meter 3-30 directed ity of (ONETOUCH 00:00: for BID [place] ULTRA2 00 blood Medical METER) Kit glucose Branch monitoring for ICD E11.9 Blood-Gluco 2021-0 Yes [id number] Use as [facility] se Meter 3-30 directed ity of (ONETOUCH 00:00: for BID [place] ULTRA2 00 blood Medical METER) Kit glucose Branch monitoring for ICD E11.9 Blood-Gluco 2021-0 Yes [id number] Use as [facility] se Meter 3-30 directed ity of (ONETOUCH 00:00: for BID [place] ULTRA2 00 blood Medical METER) Kit glucose Branch monitoring for ICD E11.9 Blood-Gluco 2021-0 Yes [id number] Use as [facility] se Meter 3-30 directed ity of (ONETOUCH 00:00: for BID [place] ULTRA2 00 blood Medical METER) Kit glucose Branch monitoring for ICD E11.9 Blood-Gluco 2021-0 Yes [id number] Use as [facility] se Meter 3-30 directed ity of (ONETOUCH 00:00: for BID [place] ULTRA2 00 blood Medical METER) Kit glucose Branch monitoring for ICD E11.9 Blood-Gluco 2021-0 Yes [id number] Use as [facility] se Meter 3-30 directed ity of (ONETOUCH 00:00: for BID [place] ULTRA2 00 blood Medical METER) Kit glucose Branch monitoring for ICD E11.9 Blood-Gluco 2021-0 Yes [id number] Use as [facility] se Meter 3-30 directed ity of (ONETOUCH 00:00: for BID [place] ULTRA2 00 blood Medical METER) Kit glucose Branch monitoring for ICD E11.9 Blood-Gluco 2021-0 Yes [id number] Use as [facility] se Meter 3-30 directed ity of (ONETOUCH 00:00: for BID [place] ULTRA2 00 blood Medical METER) Kit glucose Branch monitoring for ICD E11.9 Blood-Gluco 2021-0 Yes [id number] Use as [facility] se Meter 3-30 directed ity of (ONETOUCH 00:00: for BID [place] ULTRA2 00 blood Medical METER) Kit glucose Branch monitoring for ICD E11.9 Blood-Gluco 2021-0 Yes [id number] Use as [facility] se Meter 3-30 directed ity of (ONETOUCH 00:00: for BID [place] ULTRA2 00 blood Medical METER) Kit glucose Branch monitoring for ICD E11.9 Blood-Gluco 2021-0 Yes [id number] Use as [facility] se Meter 3-30 directed ity of (ONETOUCH 00:00: for BID [place] ULTRA2 00 blood Medical METER) Kit glucose Branch monitoring for ICD E11.9 Blood-Gluco 2021-0 Yes [id number] Use as [facility] se Meter 3-30 directed ity of (ONETOUCH 00:00: for BID [place] ULTRA2 00 blood Medical METER) Kit glucose Branch monitoring for ICD E11.9 Blood-Gluco 2021-0 Yes [id number] Use as [facility] se Meter 3-30 directed ity of (ONETOUCH 00:00: for BID [place] ULTRA2 00 blood Medical METER) Kit glucose Branch monitoring for ICD E11.9 Blood-Gluco 2021-0 Yes [id number] Use as [facility] se Meter 3-30 directed ity of (ONETOUCH 00:00: for BID [place] ULTRA2 00 blood Medical METER) Kit glucose Branch monitoring for ICD E11.9 Blood-Gluco 2021-0 Yes [id number] Use as [facility] se Meter 3-30 directed ity of (ONETOUCH 00:00: for BID [place] ULTRA2 00 blood Medical METER) Kit glucose Branch monitoring for ICD E11.9 Blood-Gluco 2021-0 Yes [id number] Use as [facility] se Meter 3-30 directed ity of (ONETOUCH 00:00: for BID [place] ULTRA2 00 blood Medical METER) Kit glucose Branch monitoring for ICD E11.9 Blood-Gluco 2021-0 Yes [id number] Use as [facility] se Meter 3-30 directed ity of (ONETOUCH 00:00: for BID [place] ULTRA2 00 blood Medical METER) Kit glucose Branch monitoring for ICD E11.9 Blood-Gluco 2021-0 Yes [id number] Use as [facility] se Meter 3-30 directed ity of (ONETOUCH 00:00: for BID [place] ULTRA2 00 blood Medical METER) Kit glucose Branch monitoring for ICD E11.9 Blood-Gluco 2021-0 Yes [id number] Use as [facility] se Meter 3-30 directed ity of (ONETOUCH 00:00: for BID [place] ULTRA2 00 blood Medical METER) Kit glucose Branch monitoring for ICD E11.9 Blood-Gluco 2021-0 Yes [id number] Use as [facility] se Meter 3-30 directed ity of (ONETOUCH 00:00: for BID [place] ULTRA2 00 blood Medical METER) Kit glucose Branch monitoring for ICD E11.9 Blood-Gluco 2021-0 Yes [id number] Use as [facility] se Meter 3-30 directed ity of (ONETOUCH 00:00: for BID [place] ULTRA2 00 blood Medical METER) Kit glucose Branch monitoring for ICD E11.9 Blood-Gluco 2021-0 Yes [id number] Use as [facility] se Meter 3-30 directed ity of (ONETOUCH 00:00: for BID [place] ULTRA2 00 blood Medical METER) Kit glucose Branch monitoring for ICD E11.9 Blood-Gluco 2021-0 Yes [id number] Use as [facility] se Meter 3-30 directed ity of (ONETOUCH 00:00: for BID [place] ULTRA2 00 blood Medical METER) Kit glucose Branch monitoring for ICD E11.9 Blood-Gluco 2021-0 Yes [id number] Use as [facility] se Meter 3-30 directed ity of (ONETOUCH 00:00: for BID [place] ULTRA2 00 blood Medical METER) Kit glucose Branch monitoring for ICD E11.9 Blood-Gluco 2021-0 Yes [id number] Use as [facility] se Meter 3-30 directed ity of (ONETOUCH 00:00: for BID [place] ULTRA2 00 blood Medical METER) Kit glucose Branch monitoring for ICD E11.9 Blood-Gluco 2021-0 Yes [id number] Use as [facility] se Meter 3-30 directed ity of (ONETOUCH 00:00: for BID [place] ULTRA2 00 blood Medical METER) Kit glucose Branch monitoring for ICD E11.9 Blood-Gluco 2021-0 Yes [id number] Use as [facility] se Meter 3-30 directed ity of (ONETOUCH 00:00: for BID [place] ULTRA2 00 blood Medical METER) Kit glucose Branch monitoring for ICD E11.9 Blood-Gluco 2021-0 Yes [id number] Use as [facility] se Meter 3-30 directed ity of (ONETOUCH 00:00: for BID [place] ULTRA2 00 blood Medical METER) Kit glucose Branch monitoring for ICD E11.9 Blood-Gluco 2020-0 Yes [id number] Use as [facility] se Meter 3-30 directed ity of (ONETOUCH 00:00: for BID [place] ULTRA2 00 blood Medical METER) Kit glucose Branch monitoring for ICD E11.9 METOPROLOL 2020-0 2- No TAKE 1 Univ ers SUCCINATE 06-19 TABLET BY ity of XL 50 mg 24 00:00: 00:00 MOUTH [place] [facility] tablet 00 :00 EVERY DAY Medic al WITH FOOD Branch fexofenadin 2019-0 Yes Take by Uni vers e/pseudoeph 3-03 mouth. ity of edrine 13:12: [place] (JOLYNN-D 24 Medical 24 HOUR Branch ORAL) fexofenadin 2019-0 Yes Take by Uni vers e/pseudoeph 3-03 mouth. ity of edrine 13:12: [place] (JOLYNN-D 24 Medical 24 HOUR Branch ORAL) fexofenadin 2019-0 Yes Take by Uni vers e/pseudoeph 3-03 mouth. ity of edrine 13:12: [place] (JOLYNN-D 24 Medical 24 HOUR Branch ORAL) fexofenadin 2020-0 Yes Take by Uni vers e/pseudoeph 3-03 mouth. ity of edrine 13:12: [place] (JOLYNN-D 24 Medical 24 HOUR Branch ORAL) fexofenadin 2020-0 Yes Take by Uni vers e/pseudoeph 3-03 mouth. ity of edrine 13:12: [place] (JOLYNN-D 24 Medical 24 HOUR Branch ORAL) fexofenadin 2020-0 Yes Take by Uni vers e/pseudoeph 3-03 mouth. ity of edrine 13:12: [place] (JOLYNN-D 24 Medical 24 HOUR Branch ORAL) fexofenadin 2020-0 Yes Take by Uni vers e/pseudoeph 3-03 mouth. ity of edrine 13:12: [place] (JOLYNN-D 24 Medical 24 HOUR Branch ORAL) fexofenadin 2020-0 Yes Take by Uni vers e/pseudoeph 3-03 mouth. ity of edrine 13:12: [place] (JOLYNN-D 24 Medical 24 HOUR Branch ORAL) fexofenadin 2020-0 Yes Take by Uni vers e/pseudoeph 3-03 mouth. ity of edrine 13:12: [place] (JOLYNN-D 24 Medical 24 HOUR Branch ORAL) fexofenadin 2020-0 Yes Take by Uni vers e/pseudoeph 3-03 mouth. ity of edrine 13:12: [place] (JOLYNN-D 24 Medical 24 HOUR Branch ORAL) fexofenadin 2020-0 Yes Take by Uni vers e/pseudoeph 3-03 mouth. ity of edrine 13:12: [place] (JOLYNN-D 24 Medical 24 HOUR Branch ORAL) fexofenadin 2020-0 Yes Take by Uni vers e/pseudoeph 3-03 mouth. ity of edrine 13:12: [place] (JOLYNN-D 24 Medical 24 HOUR Branch ORAL) fexofenadin 2020-0 Yes Take by Uni vers e/pseudoeph 3-03 mouth. ity of edrine 13:12: [place] (JOLYNN-D 24 Medical 24 HOUR Branch ORAL) fexofenadin 2020-0 Yes Take by Uni vers e/pseudoeph 3-03 mouth. ity of edrine 13:12: [place] (JOLYNN-D 24 Medical 24 HOUR Branch ORAL) fexofenadin 2020-0 Yes Take by Uni vers e/pseudoeph 3-03 mouth. ity of edrine 13:12: [place] (JOLYNN-D 24 Medical 24 HOUR Branch ORAL) fexofenadin 2020-0 Yes Take by Uni vers e/pseudoeph 3-03 mouth. ity of edrine 13:12: [place] (JOLYNN-D 24 Medical 24 HOUR Branch ORAL) fexofenadin 2020-0 Yes Take by Uni vers e/pseudoeph 3-03 mouth. ity of edrine 13:12: [place] (JOLYNN-D 24 Medical 24 HOUR Branch ORAL) fexofenadin 2020-0 Yes Take by Uni vers e/pseudoeph 3-03 mouth. ity of edrine 13:12: [place] (JOLYNN-D 24 Medical 24 HOUR Branch ORAL) fexofenadin 2020-0 Yes Take by Uni vers e/pseudoeph 3-03 mouth. ity of edrine 13:12: [place] (JOLYNN-D 24 Medical 24 HOUR Branch ORAL) fexofenadin 2020-0 Yes Take by Uni vers e/pseudoeph 3-03 mouth. ity of edrine 13:12: [place] (JOLYNN-D 24 Medical 24 HOUR Branch ORAL) fexofenadin 2020-0 Yes Take by Uni vers e/pseudoeph 3-03 mouth. ity of edrine 13:12: [place] (JOLYNN-D 24 Medical 24 HOUR Branch ORAL) fexofenadin 2020-0 Yes Take by Uni vers e/pseudoeph 3-03 mouth. ity of edrine 13:12: [place] (JOLYNN-D 24 Medical 24 HOUR Branch ORAL) fexofenadin 2020-0 Yes Take by Uni vers e/pseudoeph 3-03 mouth. ity of edrine 13:12: [place] (JOLYNN-D 24 Medical 24 HOUR Branch ORAL) fexofenadin 2020-0 Yes Take by Uni vers e/pseudoeph 3-03 mouth. ity of edrine 13:12: [place] (JOLYNN-D 24 Medical 24 HOUR Branch ORAL) fexofenadin 2020-0 Yes Take by Uni vers e/pseudoeph 3-03 mouth. ity of edrine 13:12: [place] (JOLYNN-D 24 Medical 24 HOUR Branch ORAL) fexofenadin 2020-0 Yes Take by Uni vers e/pseudoeph 3-03 mouth. ity of edrine 13:12: [place] (JOLYNN-D 24 Medical 24 HOUR Branch ORAL) fexofenadin 2020-0 Yes Take by Uni vers e/pseudoeph 3-03 mouth. ity of edrine 13:12: [place] (JOLYNN-D 24 Medical 24 HOUR Branch ORAL) fexofenadin 2020-0 Yes Take by Uni vers e/pseudoeph 3-03 mouth. ity of edrine 13:12: [place] (JOLYNN-D 24 Medical 24 HOUR Branch ORAL) fexofenadin 2020-0 Yes Take by Uni vers e/pseudoeph 3-03 mouth. ity of edrine 13:12: [place] (JOLYNN-D 24 Medical 24 HOUR Branch ORAL) fexofenadin 2020-0 Yes Take by Uni vers e/pseudoeph 3-03 mouth. ity of edrine 13:12: [place] (JOLYNN-D 24 Medical 24 HOUR Branch ORAL) fexofenadin 2020-0 Yes Take by Uni vers e/pseudoeph 3-03 mouth. ity of edrine 13:12: [place] (JOLYNN-D 24 Medical 24 HOUR Branch ORAL) fexofenadin 2020-0 Yes Take by Uni vers e/pseudoeph 3-03 mouth. ity of edrine 13:12: [place] (JOLYNN-D 24 Medical 24 HOUR Branch ORAL) fexofenadin 2020-0 Yes Take by Uni vers e/pseudoeph 3-03 mouth. ity of edrine 13:12: [place] (JOLYNN-D 24 Medical 24 HOUR Branch ORAL) fexofenadin 2020-0 Yes Take by Uni vers e/pseudoeph 3-03 mouth. ity of edrine 13:12: [place] (JOLYNN-D 24 Medical 24 HOUR Branch ORAL) fexofenadin 2020-0 Yes Take by Uni vers e/pseudoeph 3-03 mouth. ity of edrine 13:12: [place] (JOLYNN-D 24 Medical 24 HOUR Branch ORAL) fexofenadin 2020-0 Yes Take by Uni vers e/pseudoeph 3-03 mouth. ity of edrine 13:12: [place] (JOLYNN-D 24 Medical 24 [facility] ORAL) fexofenadin 2020-0 Yes Take by [facility] vers e/pseudoeph 3-03 mouth. ity of edrine 13:12: [place] ([facility] ORAL) fexofenadin 2020-0 Yes Take by [facility] vers e/pseudoeph 3-03 mouth. ity of edrine 13:12: [place] ([facility] 24 [facility] ORAL) fexofenadin 2020-0 Yes Take by [facility] vers e/pseudoeph 3-03 mouth. ity of edrine 13:12: [place] ([facility] 24 [facility] ORAL) fexofenadin 2020-0 Yes Take by [facility] vers e/pseudoeph 3-03 mouth. ity of edrine 13:12: [place] ([facility] 24 [facility] ORAL) fexofenadin 2020-0 Yes Take by [facility] vers e/pseudoeph 3-03 mouth. ity of edrine 13:12: [place] ([facility] 24 [facility] ORAL) fexofenadin 2020-0 Yes Take by [facility] vers e/pseudoeph 3-03 mouth. ity of edrine 13:12: [place] ([facility] 24 [facility] ORAL) fexofenadin 2020-0 Yes Take by [facility] vers e/pseudoeph 3-03 mouth. ity of edrine 13:12: [place] ([facility] 24 H[facility] ORAL) fexofenadin 2020-0 Yes Take by [facility] vers e/pseudoeph 3-03 mouth. ity of edrine 13:12: [place] ([facility] 24 [facility] ORAL) fexofenadin 2020-0 Yes Take by [facility] vers e/pseudoeph 3-03 mouth. ity of edrine 13:12: [place] ([facility] 24 [facility] ORAL) fexofenadin 2020-0 Yes Take by [facility] vers e/pseudoeph 3-03 mouth. ity of edrine 13:12: [place] ([facility] 24 H[facility] ORAL) fexofenadin 2020-0 Yes Take by [facility] vers e/pseudoeph 3-03 mouth. ity of edrine 13:12: [place] ([facility] 24 H[facility] ORAL) fexofenadin 2020-0 Yes Take by [facility] vers e/pseudoeph 3-03 mouth. ity of edrine 13:12: [place] ([facility] 24 H[facility] ORAL) fexofenadin 2020-0 Yes Take by [facility] vers e/pseudoeph 3-03 mouth. ity of edrine 13:12: [place] ([facility] 24 [facility] ORAL) fexofenadin 2020-0 Yes Take by [facility] vers e/pseudoeph 3-03 mouth. ity of edrine 13:12: [place] ([facility] 24 [facility] ORAL) fexofenadin 2020-0 Yes Take by [facility] vers e/pseudoeph 3-03 mouth. ity of edrine 13:12: [place] ([facility] 24 H[facility] ORAL) fexofenadin 2020-0 Yes Take by [facility] vers e/pseudoeph 3-03 mouth. ity of edrine 13:12: [place] ([facility] 24 H[facility] ORAL) fexofenadin 2020-0 Yes Take by [facility] vers e/pseudoeph 3-03 mouth. ity of edrine 13:12: [place] ([facility] 24 H[facility] ORAL) fexofenadin 2020-0 Yes Take by [facility] vers e/pseudoeph 3-03 mouth. ity of edrine 13:12: [place] ([facility] 24 H[facility] ORAL) fexofenadin 2020-0 Yes Take by [facility] vers e/pseudoeph 3-03 mouth. ity of edrine 13:12: [place] ([facility] 24 H[facility] ORAL) fexofenadin 2020-0 Yes Take by [facility] vers e/pseudoeph 3-03 mouth. ity of edrine 13:12: [place] ([facility] 24 [facility] ORAL) fexofenadin 2020-0 Yes Take by [facility] vers e/pseudoeph 3-03 mouth. ity of edrine 13:12: [place] ([facility] 24 [facility] ORAL) fexofenadin 2020-0 Yes Take by [facility] vers e/pseudoeph 3-03 mouth. ity of edrine 13:12: [place] ([facility] 24 HOUR [facility] ORAL) fexofenadin 2020-0 Yes Take by [facility] vers e/pseudoeph 3-03 mouth. ity of edrine 13:12: [place] ([facility] 24 H[facility] ORAL) fexofenadin 2020-0 Yes Take by [facility] vers e/pseudoeph 3-03 mouth. ity of edrine 13:12: [place] ([facility] 24 H[facility] ORAL) fexofenadin 2020-0 Yes Take by [facility] vers e/pseudoeph 3-03 mouth. ity of edrine 13:12: [place] ([facility] 24 H[facility] ORAL) fexofenadin 2020-0 Yes Take by [facility] vers e/pseudoeph 3-03 mouth. ity of edrine 13:12: [place] ([facility] 24 H[facility] ORAL) fexofenadin 2020-0 Yes Take by [facility] vers e/pseudoeph 3-03 mouth. ity of edrine 13:12: [place] ([facility] 24 HOUR [facility] ORAL) fexofenadin 2020-0 Yes Take by [facility] vers e/pseudoeph 3-03 mouth. ity of edrine 13:12: [place] ([facility] 24 H[facility] ORAL) fexofenadin 2020-0 Yes Take by [facility] vers e/pseudoeph 3-03 mouth. ity of edrine 13:12: [place] ([facility] 24 H[facility] ORAL) fexofenadin 2020-0 Yes Take by [facility] vers e/pseudoeph 3-03 mouth. ity of edrine 13:12: [place] ([facility] 24 H[facility] ORAL) fexofenadin 2020-0 Yes Take by [facility] vers e/pseudoeph 3-03 mouth. ity of edrine 13:12: [place] ([facility] 24 H[facility] ORAL) fexofenadin 2020-0 Yes Take by [facility] vers e/pseudoeph 3-03 mouth. ity of edrine 13:12: [place] ([facility] 24 H[facility] ORAL) fexofenadin 2020-0 Yes Take by [facility] vers e/pseudoeph 3-03 mouth. ity of edrine 13:12: [place] ([facility] 24 H[facility] ORAL) fexofenadin 2020-0 Yes Take by [facility] vers e/pseudoeph 3-03 mouth. ity of edrine 13:12: [place] ([facility] 24 HOUR [facility] ORAL) fexofenadin 2020-0 Yes Take by [facility] vers e/pseudoeph 3-03 mouth. ity of edrine 13:12: [place] ([facility] 24 HOUR [facility] ORAL) fexofenadin 2020-0 Yes Take by [facility] vers e/pseudoeph 3-03 mouth. ity of edrine 13:12: [place] ([facility] 24 H[facility] ORAL) fexofenadin 2020-0 Yes Take by [facility] vers e/pseudoeph 3-03 mouth. ity of edrine 13:12: [place] ([facility] 24 H[facility] ORAL) fexofenadin 2020-0 Yes Take by [facility] vers e/pseudoeph 3-03 mouth. ity of edrine 13:12: [place] ([facility] 24 HOUR [facility] ORAL) fexofenadin 2020-0 Yes Take by [facility] vers e/pseudoeph 3-03 mouth. ity of edrine 13:12: [place] ([facility] 24 HOUR [facility] ORAL) fexofenadin 2020-0 Yes Take by [facility] vers e/pseudoeph 3-03 mouth. ity of edrine 13:12: [place] ([facility] 24 HOUR [facility] ORAL) fexofenadin 2020-0 Yes Take by [facility] vers e/pseudoeph 3-03 mouth. ity of edrine 13:12: [place] ([facility] 24 HOUR [facility] ORAL) fexofenadin 2020-0 Yes Take by [facility] vers e/pseudoeph 3-03 mouth. ity of edrine 13:12: [place] ([facility] 24 H[facility] ORAL) fexofenadin 2020-0 Yes Take by [facility] vers e/pseudoeph 3-03 mouth. ity of edrine 13:12: [place] ([facility] 24 HOUR [facility] ORAL) fexofenadin 2020-0 Yes Take by [facility] vers e/pseudoeph 3-03 mouth. ity of edrine 13:12: [place] ([facility] 24 HOUR [facility] ORAL) fexofenadin 2020-0 Yes Take by [facility] vers e/pseudoeph 3-03 mouth. ity of edrine 13:12: [place] ([facility] 24 HOUR [facility] ORAL) fexofenadin 2020-0 Yes Take by [facility] vers e/pseudoeph 3-03 mouth. ity of edrine 13:12: [place] ([facility] 24 HOUR [facility] ORAL) fexofenadin 2020-0 Yes Take by [facility] vers e/pseudoeph 3-03 mouth. ity of edrine 13:12: [place] ([facility] 24 HOUR [facility] ORAL) fexofenadin 2020-0 Yes Take by [facility] vers e/pseudoeph 3-03 mouth. ity of edrine 13:12: [place] ([facility] 24 HOUR [facility] ORAL) fexofenadin 2020-0 Yes Take by [facility] vers e/pseudoeph 3-03 mouth. ity of edrine 13:12: [place] ([facility] 24 HOUR [facility] ORAL) fexofenadin 2020-0 Yes Take by [facility] vers e/pseudoeph 3-03 mouth. ity of edrine 13:12: [place] ([facility] 24 HOUR [facility] ORAL) fexofenadin 2020-0 Yes Take by [facility] vers e/pseudoeph 3-03 mouth. ity of edrine 13:12: [place] ([facility] 24 HOUR [facility] ORAL) fexofenadin 2020-0 Yes Take by [facility] vers e/pseudoeph 3-03 mouth. ity of edrine 13:12: [place] ([facility] 24 HOUR [facility] ORAL) fexofenadin 2020-0 Yes Take by [facility] vers e/pseudoeph 3-03 mouth. ity of edrine 13:12: [place] ([facility] 24 HOUR [facility] ORAL) fexofenadin 2020-0 Yes Take by [facility] vers e/pseudoeph 3-03 mouth. ity of edrine 13:12: [place] ([facility] 24 HOUR [facility] ORAL) fexofenadin 2020-0 Yes Take by [facility] vers e/pseudoeph 3-03 mouth. ity of edrine 13:12: [place] ([facility] 24 HOUR [facility] ORAL) fexofenadin 2020-0 Yes Take by [facility] vers e/pseudoeph 3-03 mouth. ity of edrine 13:12: [place] ([facility] 24 HOUR [facility] ORAL) fexofenadin 2020-0 Yes Take by [facility] vers e/pseudoeph 3-03 mouth. ity of edrine 13:12: [place] ([facility] 24 HOUR [facility] ORAL) fexofenadin 2020-0 Yes Take by [facility] vers e/pseudoeph 3-03 mouth. ity of edrine 13:12: [place] ([facility] 24 HOUR [facility] ORAL) fexofenadin 2020-0 Yes Take by [facility] vers e/pseudoeph 3-03 mouth. ity of edrine 13:12: [place] ([facility] 24 HOUR [facility] ORAL) fexofenadin 2020-0 Yes Take by [facility] vers e/pseudoeph 3-03 mouth. ity of edrine 13:12: [place] ([facility] 24 HOUR [facility] ORAL) fexofenadin 2020-0 Yes Take by [facility] vers e/pseudoeph 3-03 mouth. ity of edrine 13:12: [place] ([facility] 24 HOUR [facility] ORAL) fexofenadin 2020-0 Yes Take by [facility] vers e/pseudoeph 3-03 mouth. ity of edrine 13:12: [place] ([facility] 24 HOUR [facility] ORAL) fexofenadin 2020-0 Yes Take by [facility] vers e/pseudoeph 3-03 mouth. ity of edrine 13:12: [place] ([facility] 24 HOUR [facility] ORAL) fexofenadin 2020-0 Yes Take by [facility] vers e/pseudoeph 3-03 mouth. ity of edrine 13:12: [place] ([facility] 24 HOUR [facility] ORAL) fexofenadin 2020-0 Yes Take by [facility] vers e/pseudoeph 3-03 mouth. ity of edrine 13:12: [place] ([facility] 24 HOUR [facility] ORAL) fexofenadin 2020-0 Yes Take by [facility] vers e/pseudoeph 3-03 mouth. ity of edrine 13:12: [place] ([facility] 24 HOUR [facility] ORAL) fexofenadin 2020-0 Yes Take by [facility] vers e/pseudoeph 3-03 mouth. ity of edrine 13:12: [place] ([facility] 24 HOUR [facility] ORAL) fexofenadin 2020-0 Yes Take by [facility] vers e/pseudoeph 3-03 mouth. ity of edrine 13:12: [place] ([facility] 24 HOUR [facility] ORAL) fexofenadin 2020-0 Yes Take by [facility] vers e/pseudoeph 3-03 mouth. ity of edrine 13:12: [place] ([facility] 24 HOUR [facility] ORAL) fexofenadin 2020-0 Yes Take by [facility] vers e/pseudoeph 3-03 mouth. ity of edrine 13:12: [place] ([facility] 24 HOUR [facility] ORAL) fexofenadin 2020-0 Yes Take by [facility] vers e/pseudoeph 3-03 mouth. ity of edrine 13:12: [place] ([facility] 24 HOUR [facility] ORAL) fexofenadin 2020-0 Yes Take by [facility] vers e/pseudoeph 3-03 mouth. ity of edrine 13:12: [place] ([facility] 24 HOUR [facility] ORAL) fexofenadin 2020-0 Yes Take by [facility] vers e/pseudoeph 3-03 mouth. ity of edrine 13:12: [place] ([facility] 24 HOUR [facility] ORAL) fexofenadin 2020-0 Yes Take by [facility] vers e/pseudoeph 3-03 mouth. ity of edrine 13:12: [place] ([facility] 24 HOUR [facility] ORAL) fexofenadin 2020-0 Yes Take by [facility] vers e/pseudoeph 3-03 mouth. ity of edrine 13:12: [place] ([facility] 24 HOUR [facility] ORAL) fexofenadin 2020-0 Yes Take by [facility] vers e/pseudoeph 3-03 mouth. ity of edrine 13:12: [place] ([facility] 24 HOUR [facility] ORAL) fexofenadin 2020-0 Yes Take by [facility] vers e/pseudoeph 3-03 mouth. ity of edrine 13:12: [place] ([facility] 24 HOUR [facility] ORAL) fexofenadin 2020-0 Yes Take by [facility] vers e/pseudoeph 3-03 mouth. ity of edrine 13:12: [place] ([facility] 24 HOUR [facility] ORAL) fexofenadin 2020-0 Yes Take by [facility] vers e/pseudoeph 3-03 mouth. ity of edrine 13:12: [place] ([facility] 24 HOUR [facility] ORAL) fexofenadin 2020-0 Yes Take by [facility] vers e/pseudoeph 3-03 mouth. ity of edrine 13:12: [place] ([facility] 24 HOUR [facility] ORAL) fexofenadin 2020-0 Yes Take by [facility] vers e/pseudoeph 3-03 mouth. ity of edrine 13:12: [place] ([facility] 24 HOUR [facility] ORAL) fexofenadin 2020-0 Yes Take by [facility] vers e/pseudoeph 3-03 mouth. ity of edrine 13:12: [place] ([facility] 24 HOUR [facility] ORAL) fexofenadin 2020-0 Yes Take by [facility] vers e/pseudoeph 3-03 mouth. ity of edrine 13:12: [place] ([facility] 24 HOUR [facility] ORAL) fexofenadin 2020-0 Yes Take by [facility] vers e/pseudoeph 3-03 mouth. ity of edrine 13:12: [place] ([facility] 24 HOUR [facility] ORAL) fexofenadin 2020-0 Yes Take by [facility] vers e/pseudoeph 3-03 mouth. ity of edrine 13:12: [place] ([facility] 24 HOUR [facility] ORAL) fexofenadin 2020-0 Yes Take by [facility] vers e/pseudoeph 3-03 mouth. ity of edrine 13:12: [place] ([facility] 24 HOUR [facility] ORAL) fexofenadin 2020-0 Yes Take by [facility] vers e/pseudoeph 3-03 mouth. ity of edrine 13:12: [place] ([facility] 24 HOUR [facility] ORAL) fexofenadin 2020-0 Yes Take by [facility] vers e/pseudoeph 3-03 mouth. ity of edrine 13:12: [place] ([facility] 24 HOUR [facility] ORAL) fexofenadin 2020-0 Yes Take by [facility] vers e/pseudoeph 3-03 mouth. ity of edrine 13:12: [place] ([facility] 24 HOUR [facility] ORAL) fexofenadin 2020-0 Yes Take by [facility] vers e/pseudoeph 3-03 mouth. ity of edrine 13:12: [place] ([facility] 24 HOUR [facility] ORAL) fexofenadin 2020-0 Yes Take by [facility] vers e/pseudoeph 3-03 mouth. ity of edrine 13:12: [place] ([facility] 24 HOUR [facility] ORAL) fexofenadin 2020-0 Yes Take by [facility] vers e/pseudoeph 3-03 mouth. ity of edrine 13:12: [place] ([facility] 24 HOUR [facility] ORAL) fexofenadin 2020-0 Yes Take by [facility] vers e/pseudoeph 3-03 mouth. ity of edrine 13:12: [place] ([facility] 24 HOUR [facility] ORAL) fexofenadin 2020-0 Yes Take by [facility] vers e/pseudoeph 3-03 mouth. ity of edrine 13:12: [place] ([facility] 24 HOUR [facility] ORAL) fexofenadin 2020-0 Yes Take by [facility] e/pseudoeph 3-03 mouth. ity of edrine 13:12: [place] ([facility] 24 HOUR [facility] ORAL) fexofenadin 2020-0 Yes Take by Uni vers e/pseudoeph 3-03 mouth. ity of edrine 13:12: [place] ([facility] 24 HOUR [facility] ORAL) fexofenadin 2020-0 Yes Take by Uni vers e/pseudoeph 3-03 mouth. ity of edrine 13:12: [place] ([facility] 24 HOUR [facility] ORAL) fexofenadin 2020-0 Yes Take by [facility] vers e/pseudoeph 3-03 mouth. ity of edrine 13:12: [place] ([facility] 24 HOUR [facility] ORAL) fexofenadin 2020-0 Yes Take by [facility] vers e/pseudoeph 3-03 mouth. ity of edrine 13:12: [place] ([facility] 24 HOUR [facility] ORAL) fexofenadin 2020-0 Yes Take by Uni vers e/pseudoeph 3-03 mouth. ity of edrine 13:12: [place] ([facility] 24 HOUR [facility] ORAL) fexofenadin 2020-0 Yes Take by [facility] vers e/pseudoeph 3-03 mouth. ity of edrine 13:12: [place] ([facility] 24 HOUR [facility] ORAL) fexofenadin 2020-0 Yes Take by [facility] vers e/pseudoeph 3-03 mouth. ity of edrine 13:12: [place] ([facility] 24 HOUR [facility] ORAL) fexofenadin 2020-0 Yes Take by [facility] vers e/pseudoeph 3-03 mouth. ity of edrine 13:12: [place] ([facility] 24 HOUR [facility] ORAL) fexofenadin 2020-0 Yes Take by [facility] vers e/pseudoeph 3-03 mouth. ity of edrine 13:12: [place] ([facility] 24 HOUR [facility] ORAL) fexofenadin 2020-0 Yes Take by [facility] vers e/pseudoeph 3-03 mouth. ity of edrine 13:12: [place] ([facility] 24 HOUR [facility] ORAL) fexofenadin 2020-0 Yes Take by Uni vers e/pseudoeph 3-03 mouth. ity of edrine 13:12: [place] ([facility] 24 HOUR [facility] ORAL) fexofenadin 2020-0 Yes Take by [facility] vers e/pseudoeph 3-03 mouth. ity of edrine 13:12: [place] ([facility] 24 HOUR [facility] ORAL) fexofenadin 2020-0 Yes Take by [facility] vers e/pseudoeph 3-03 mouth. ity of edrine 13:12: [place] ([facility] 24 HOUR [facility] ORAL) fexofenadin 2020-0 Yes Take by [facility] vers e/pseudoeph 3-03 mouth. ity of edrine 13:12: [place] ([facility] 24 HOUR [facility] ORAL) fexofenadin 2020-0 Yes Take by [facility] vers e/pseudoeph 3-03 mouth. ity of edrine 13:12: [place] ([facility] 24 HOUR [facility] ORAL) foLIC acid 2018- Yes 1mg Take 1 mg [facility] 1 mg tablet 2-16 by mouth ity of 13:27: daily. [address] foLIC acid 2019- Yes 1mg Take 1 mg [facility] 1 mg tablet 2-16 by mouth ity of 13:27: daily. [address] foLIC acid 2018-03 Yes 1mg Take 1 mg [facility] 1 mg tablet 2-16 by mouth ity of 13:27: daily. [address] foLIC acid 2018-03 Yes 1mg Take 1 mg [facility] 1 mg tablet 2-16 by mouth ity of 13:27: daily. [address] foLIC acid 2018-03 Yes 1mg Take 1 mg [facility] 1 mg tablet 2-16 by mouth ity of 13:27: daily. [address] foLIC acid 2018-03 Yes 1mg Take 1 mg [facility] 1 mg tablet 2-16 by mouth ity of 13:27: daily. [address] foLIC acid 2018-03 Yes 1mg Take 1 mg [facility] 1 mg tablet 2-16 by mouth ity of 13:27: daily. [address] foLIC acid 2018-03 Yes 1mg Take 1 mg [facility] 1 mg tablet 2-16 by mouth ity of 13:27: daily. [address] foLIC acid 2018-03 Yes 1mg Take 1 mg [facility] 1 mg tablet 2-16 by mouth ity of 13:27: daily. [address] foLIC acid 2018-03 Yes 1mg Take 1 mg [facility] 1 mg tablet 2-16 by mouth ity of 13:27: daily. [address] foLIC acid 2018-03 Yes 1mg Take 1 mg [facility] 1 mg tablet 2-16 by mouth ity of 13:27: daily. [address] foLIC acid 2018-03 Yes 1mg Take 1 mg [facility] 1 mg tablet 2-16 by mouth ity of 13:27: daily. [address] foLIC acid 2018-03 Yes 1mg Take 1 mg [facility] 1 mg tablet 2-16 by mouth ity of 13:27: daily. [address] foLIC acid 2018-03 Yes 1mg Take 1 mg [facility] 1 mg tablet 2-16 by mouth ity of 13:27: daily. [address] foLIC acid 2018-03 Yes 1mg Take 1 mg [facility] 1 mg tablet 2-16 by mouth ity of 13:27: daily. [address] foLIC acid 2018-03 Yes 1mg Take 1 mg [facility] 1 mg tablet 2-16 by mouth ity of 13:27: daily. [address] foLIC acid 2018-03 Yes 1mg Take 1 mg [facility] 1 mg tablet 2-16 by mouth ity of 13:27: daily. [address] foLIC acid 2018-03 Yes 1mg Take 1 mg [facility] 1 mg tablet 2-16 by mouth ity of 13:27: daily. [address] foLIC acid 2018-03 Yes 1mg Take 1 mg [facility] 1 mg tablet 2-16 by mouth ity of 13:27: daily. [address] foLIC acid 2018-03 Yes 1mg Take 1 mg [facility] 1 mg tablet 2-16 by mouth ity of 13:27: daily. [address] foLIC acid 2018-03 Yes 1mg Take 1 mg [facility] 1 mg tablet 2-16 by mouth ity of 13:27: daily. [address] foLIC acid 2018-03 Yes 1mg Take 1 mg [facility] 1 mg tablet 2-16 by mouth ity of 13:27: daily. [address] foLIC acid 2018-03 Yes 1mg Take 1 mg [facility] 1 mg tablet 2-16 by mouth ity of 13:27: daily. [address] foLIC acid 2018-03 Yes 1mg Take 1 mg [facility] 1 mg tablet 2-16 by mouth ity of 13:27: daily. [address] foLIC acid 2018-03 Yes 1mg Take 1 mg [facility] 1 mg tablet 2-16 by mouth ity of 13:27: daily. [address] foLIC acid 2018-03 Yes 1mg Take 1 mg [facility] 1 mg tablet 2-16 by mouth ity of 13:27: daily. [address] foLIC acid 2018-03 Yes 1mg Take 1 mg [facility] 1 mg tablet 2-16 by mouth ity of 13:27: daily. [address] foLIC acid 2018-03 Yes 1mg Take 1 mg [facility] 1 mg tablet 2-16 by mouth ity of 13:27: daily. [address] foLIC acid 2018-03 Yes 1mg Take 1 mg [facility] 1 mg tablet 2-16 by mouth ity of 13:27: daily. [address] foLIC acid 2018-03 Yes 1mg Take 1 mg [facility] 1 mg tablet 2-16 by mouth ity of 13:27: daily. [address] foLIC acid 2018-03 Yes 1mg Take 1 mg [facility] 1 mg tablet 2-16 by mouth ity of 13:27: daily. [address] foLIC acid 2018-03 Yes 1mg Take 1 mg [facility] 1 mg tablet 2-16 by mouth ity of 13:27: daily. [address] foLIC acid 2018-03 Yes 1mg Take 1 mg [facility] 1 mg tablet 2-16 by mouth ity of 13:27: daily. [address] foLIC acid 2018-03 Yes 1mg Take 1 mg [facility] 1 mg tablet 2-16 by mouth ity of 13:27: daily. [address] foLIC acid 2018-03 Yes 1mg Take 1 mg [facility] 1 mg tablet 2-16 by mouth ity of 13:27: daily. [address] foLIC acid 2018-03 Yes 1mg Take 1 mg [facility] 1 mg tablet 2-16 by mouth ity of 13:27: daily. [address] foLIC acid 2018-03 Yes 1mg Take 1 mg [facility] 1 mg tablet 2-16 by mouth ity of 13:27: daily. [address] foLIC acid 2018-03 Yes 1mg Take 1 mg [facility] 1 mg tablet 2-16 by mouth ity of 13:27: daily. [address] foLIC acid 2018-03 Yes 1mg Take 1 mg [facility] 1 mg tablet 2-16 by mouth ity of 13:27: daily. [address] foLIC acid 2018-03 Yes 1mg Take 1 mg [facility] 1 mg tablet 2-16 by mouth ity of 13:27: daily. [address] foLIC acid 2018-03 Yes 1mg Take 1 mg [facility] 1 mg tablet 2-16 by mouth ity of 13:27: daily. [address] foLIC acid 2018-03 Yes 1mg Take 1 mg [facility] 1 mg tablet 2-16 by mouth ity of 13:27: daily. [address] foLIC acid 2018-03 Yes 1mg Take 1 mg [facility] 1 mg tablet 2-16 by mouth ity of 13:27: daily. [address] foLIC acid 2018-03 Yes 1mg Take 1 mg [facility] 1 mg tablet 2-16 by mouth ity of 13:27: daily. [address] foLIC acid 2018-03 Yes 1mg Take 1 mg [facility] 1 mg tablet 2-16 by mouth ity of 13:27: daily. [address] foLIC acid 2018-03 Yes 1mg Take 1 mg [facility] 1 mg tablet 2-16 by mouth ity of 13:27: daily. [address] foLIC acid 2018-03 Yes 1mg Take 1 mg [facility] 1 mg tablet 2-16 by mouth ity of 13:27: daily. [address] foLIC acid 2018-03 Yes 1mg Take 1 mg [facility] 1 mg tablet 2-16 by mouth ity of 13:27: daily. [address] foLIC acid 2018-03 Yes 1mg Take 1 mg [facility] 1 mg tablet 2-16 by mouth ity of 13:27: daily. [address] foLIC acid 2018-03 Yes 1mg Take 1 mg [facility] 1 mg tablet 2-16 by mouth ity of 13:27: daily. [address] foLIC acid 2018-03 Yes 1mg Take 1 mg [facility] 1 mg tablet 2-16 by mouth ity of 13:27: daily. [address] foLIC acid 2018-03 Yes 1mg Take 1 mg [facility] 1 mg tablet 2-16 by mouth ity of 13:27: daily. [address] foLIC acid 2018-03 Yes 1mg Take 1 mg [facility] 1 mg tablet 2-16 by mouth ity of 13:27: daily. [address] foLIC acid 2018-03 Yes 1mg Take 1 mg [facility] 1 mg tablet 2-16 by mouth ity of 13:27: daily. [address] foLIC acid 2018-03 Yes 1mg Take 1 mg [facility] 1 mg tablet 2-16 by mouth ity of 13:27: daily. [address] foLIC acid 2018-03 Yes 1mg Take 1 mg [facility] 1 mg tablet 2-16 by mouth ity of 13:27: daily. [address] foLIC acid 2018-03 Yes 1mg Take 1 mg [facility] 1 mg tablet 2-16 by mouth ity of 13:27: daily. [address] foLIC acid 2018-03 Yes 1mg Take 1 mg [facility] 1 mg tablet 2-16 by mouth ity of 13:27: daily. [address] foLIC acid 2018-03 Yes 1mg Take 1 mg [facility] 1 mg tablet 2-16 by mouth ity of 13:27: daily. [address] foLIC acid 2018-03 Yes 1mg Take 1 mg [facility] 1 mg tablet 2-16 by mouth ity of 13:27: daily. [address] foLIC acid 2018-03 Yes 1mg Take 1 mg [facility] 1 mg tablet 2-16 by mouth ity of 13:27: daily. [address] foLIC acid 2018-03 Yes 1mg Take 1 mg [facility] 1 mg tablet 2-16 by mouth ity of 13:27: daily. [address] foLIC acid 2018-03 Yes 1mg Take 1 mg [facility] 1 mg tablet 2-16 by mouth ity of 13:27: daily. [address] foLIC acid 2018-03 Yes 1mg Take 1 mg [facility] 1 mg tablet 2-16 by mouth ity of 13:27: daily. [address] foLIC acid 2018-03 Yes 1mg Take 1 mg [facility] 1 mg tablet 2-16 by mouth ity of 13:27: daily. [address] foLIC acid 2018-03 Yes 1mg Take 1 mg [facility] 1 mg tablet 2-16 by mouth ity of 13:27: daily. [address] foLIC acid 2018-03 Yes 1mg Take 1 mg [facility] 1 mg tablet 2-16 by mouth ity of 13:27: daily. [address] foLIC acid 2018-03 Yes 1mg Take 1 mg [facility] 1 mg tablet 2-16 by mouth ity of 13:27: daily. [address] foLIC acid 2018-03 Yes 1mg Take 1 mg [facility] 1 mg tablet 2-16 by mouth ity of 13:27: daily. [address] foLIC acid 2018-03 Yes 1mg Take 1 mg [facility] 1 mg tablet 2-16 by mouth ity of 13:27: daily. [address] foLIC acid 2018-03 Yes 1mg Take 1 mg [facility] 1 mg tablet 2-16 by mouth ity of 13:27: daily. [address] foLIC acid 2018-03 Yes 1mg Take 1 mg [facility] 1 mg tablet 2-16 by mouth ity of 13:27: daily. [address] foLIC acid 2018-03 Yes 1mg Take 1 mg [facility] 1 mg tablet 2-16 by mouth ity of 13:27: daily. [address] foLIC acid 2018-03 Yes 1mg Take 1 mg [facility] 1 mg tablet 2-16 by mouth ity of 13:27: daily. [address] foLIC acid 2018-03 Yes 1mg Take 1 mg Un rein[facility] 1 mg tablet 2-16 by mouth ity of 13:27: daily. [address] foLIC acid 2018-03 Yes 1mg Take 1 mg Un rein[facility] 1 mg tablet 2-16 by mouth ity of 13:27: daily. [address] foLIC acid 2018-03 Yes 1mg Take 1 mg Un rein[facility] 1 mg tablet 2-16 by mouth ity of 13:27: daily. [address] foLIC acid 2018-03 Yes 1mg Take 1 mg Un rein[facility] 1 mg tablet 2-16 by mouth ity of 13:27: daily. [address] foLIC acid 2018-03 Yes 1mg Take 1 mg Un [facility] 1 mg tablet 2-16 by mouth ity of 13:27: daily. [address] foLIC acid 2018-03 Yes 1mg Take 1 mg Un rein[facility] 1 mg tablet 2-16 by mouth ity of 13:27: daily. [address] foLIC acid 2018-03 Yes 1mg Take 1 mg Un rein[facility] 1 mg tablet 2-16 by mouth ity of 13:27: daily. [address] foLIC acid 2018-03 Yes 1mg Take 1 mg Un rein[facility] 1 mg tablet 2-16 by mouth ity of 13:27: daily. [address] foLIC acid 2018-03 Yes 1mg Take 1 mg Un rein[facility] 1 mg tablet 2-16 by mouth ity of 13:27: daily. [address] foLIC acid 2018-03 Yes 1mg Take 1 mg Un rein[facility] 1 mg tablet 2-16 by mouth ity of 13:27: daily. [address] foLIC acid 2018-03 Yes 1mg Take 1 mg [facility] 1 mg tablet 2-16 by mouth ity of 13:27: daily. [address] foLIC acid 2018-03 Yes 1mg Take 1 mg [facility] 1 mg tablet 2-16 by mouth ity of 13:27: daily. [address] foLIC acid 2018-03 Yes 1mg Take 1 mg [facility] 1 mg tablet 2-16 by mouth ity of 13:27: daily. [address] foLIC acid 2018-03 Yes 1mg Take 1 mg [facility] 1 mg tablet 2-16 by mouth ity of 13:27: daily. [address] foLIC acid 2018-03 Yes 1mg Take 1 mg [facility] 1 mg tablet 2-16 by mouth ity of 13:27: daily. [address] foLIC acid 2018-03 Yes 1mg Take 1 mg [facility] 1 mg tablet 2-16 by mouth ity of 13:27: daily. [address] foLIC acid 2018-03 Yes 1mg Take 1 mg [facility] 1 mg tablet 2-16 by mouth ity of 13:27: daily. [address] foLIC acid 2018-03 Yes 1mg Take 1 mg [facility] 1 mg tablet 2-16 by mouth ity of 13:27: daily. [address] foLIC acid 2018-03 Yes 1mg Take 1 mg [facility] 1 mg tablet 2-16 by mouth ity of 13:27: daily. [address] foLIC acid 2018-03 Yes 1mg Take 1 mg [facility] 1 mg tablet 2-16 by mouth ity of 13:27: daily. [address] foLIC acid 2018-03 Yes 1mg Take 1 mg [facility] 1 mg tablet 2-16 by mouth ity of 13:27: daily. [address] foLIC acid 2018-03 Yes 1mg Take 1 mg [facility] 1 mg tablet 2-16 by mouth ity of 13:27: daily. [address] foLIC acid 2018-03 Yes 1mg Take 1 mg [facility] 1 mg tablet 2-16 by mouth ity of 13:27: daily. [address] foLIC acid 2018-03 Yes 1mg Take 1 mg [facility] 1 mg tablet 2-16 by mouth ity of 13:27: daily. [address] foLIC acid 2018-03 Yes 1mg Take 1 mg [facility] 1 mg tablet 2-16 by mouth ity of 13:27: daily. [address] foLIC acid 2018-03 Yes 1mg Take 1 mg [facility] 1 mg tablet 2-16 by mouth ity of 13:27: daily. [address] foLIC acid 2018-03 Yes 1mg Take 1 mg [facility] 1 mg tablet 2-16 by mouth ity of 13:27: daily. [address] foLIC acid 2018-03 Yes 1mg Take 1 mg [facility] 1 mg tablet 2-16 by mouth ity of 13:27: daily. [address] foLIC acid 2018-03 Yes 1mg Take 1 mg [facility] 1 mg tablet 2-16 by mouth ity of 13:27: daily. [address] foLIC acid 2018-03 Yes 1mg Take 1 mg [facility] 1 mg tablet 2-16 by mouth ity of 13:27: daily. [address] foLIC acid 2018-03 Yes 1mg Take 1 mg [facility] 1 mg tablet 2-16 by mouth ity of 13:27: daily. [address] foLIC acid 2018-03 Yes 1mg Take 1 mg [facility] 1 mg tablet 2-16 by mouth ity of 13:27: daily. [address] foLIC acid 2018-03 Yes 1mg Take 1 mg [facility] 1 mg tablet 2-16 by mouth ity of 13:27: daily. [address] foLIC acid 2018-03 Yes 1mg Take 1 mg [facility] 1 mg tablet 2-16 by mouth ity of 13:27: daily. [address] foLIC acid 2018-03 Yes 1mg Take 1 mg [facility] 1 mg tablet 2-16 by mouth ity of 13:27: daily. [address] foLIC acid 2018-03 Yes 1mg Take 1 mg [facility] 1 mg tablet 2-16 by mouth ity of 13:27: daily. [address] foLIC acid 2018-03 Yes 1mg Take 1 mg [facility] 1 mg tablet 2-16 by mouth ity of 13:27: daily. [address] foLIC acid 2018-03 Yes 1mg Take 1 mg [facility] 1 mg tablet 2-16 by mouth ity of 13:27: daily. [address] foLIC acid 2018-03 Yes 1mg Take 1 mg [facility] 1 mg tablet 2-16 by mouth ity of 13:27: daily. [address] foLIC acid 2018-03 Yes 1mg Take 1 mg [facility] 1 mg tablet 2-16 by mouth ity of 13:27: daily. [address] foLIC acid 2018-03 Yes 1mg Take 1 mg [facility] 1 mg tablet 2-16 by mouth ity of 13:27: daily. [address] foLIC acid 2018-03 Yes 1mg Take 1 mg [facility] 1 mg tablet 2-16 by mouth ity of 13:27: daily. [address] foLIC acid 2018-03 Yes 1mg Take 1 mg [facility] 1 mg tablet 2-16 by mouth ity of 13:27: daily. [address] foLIC acid 2018-03 Yes 1mg Take 1 mg [facility] 1 mg tablet 2-16 by mouth ity of 13:27: daily. [address] foLIC acid 2018-03 Yes 1mg Take 1 mg [facility] 1 mg tablet 2-16 by mouth ity of 13:27: daily. [address] foLIC acid 2018-03 Yes 1mg Take 1 mg [facility] 1 mg tablet 2-16 by mouth ity of 13:27: daily. [address] foLIC acid 2018-03 Yes 1mg Take 1 mg [facility] 1 mg tablet 2-16 by mouth ity of 13:27: daily. [address] foLIC acid 2018-03 Yes 1mg Take 1 mg [facility] 1 mg tablet 2-16 by mouth ity of 13:27: daily. [address] foLIC acid 2018-03 Yes 1mg Take 1 mg [facility] 1 mg tablet 2-16 by mouth ity of 13:27: daily. [address] foLIC acid 2018-03 Yes 1mg Take 1 mg [facility] 1 mg tablet 2-16 by mouth ity of 13:27: daily. [address] foLIC acid 2018-03 Yes 1mg Take 1 mg [facility] 1 mg tablet 2-16 by mouth ity of 13:27: daily. [address] foLIC acid 2018-03 Yes 1mg Take 1 mg [facility] 1 mg tablet 2-16 by mouth ity of 13:27: daily. [address] foLIC acid 2018-03 Yes 1mg Take 1 mg [facility] 1 mg tablet 2-16 by mouth ity of 13:27: daily. [address] foLIC acid 2018-03 Yes 1mg Take 1 mg [facility] 1 mg tablet 2-16 by mouth ity of 13:27: daily. [address] foLIC acid 2018-03 Yes 1mg Take 1 mg [facility] 1 mg tablet 2-16 by mouth ity of 13:27: daily. [address] foLIC acid 2018-03 Yes 1mg Take 1 mg [facility] 1 mg tablet 2-16 by mouth ity of 13:27: daily. [address] foLIC acid 2018-03 Yes 1mg Take 1 mg [facility] 1 mg tablet 2-16 by mouth ity of 13:27: daily. [address] foLIC acid 2018-03 Yes 1mg Take 1 mg [facility] 1 mg tablet 2-16 by mouth ity of 13:27: daily. [address] foLIC acid 2018-03 Yes 1mg Take 1 mg [facility] 1 mg tablet 2-16 by mouth ity of 13:27: daily. [address] foLIC acid 2018-03 Yes 1mg Take 1 mg [facility] 1 mg tablet 2-16 by mouth ity of 13:27: daily. [address] foLIC acid 2018-03 Yes 1mg Take 1 mg [facility] 1 mg tablet 2-16 by mouth ity of 13:27: daily. [address] foLIC acid 2018-03 Yes 1mg Take 1 mg [facility] 1 mg tablet 2-16 by mouth ity of 13:27: daily. [address] foLIC acid 2018-03 Yes 1mg Take 1 mg [facility] 1 mg tablet 2-16 by mouth ity of 13:27: daily. [address] foLIC acid 2018-03 Yes 1mg Take 1 mg [facility] 1 mg tablet 2-16 by mouth ity of 13:27: daily. [address] foLIC acid 2018-03 Yes 1mg Take 1 mg [facility] 1 mg tablet 2-16 by mouth ity of 13:27: daily. [address] foLIC acid 2018-03 Yes 1mg Take 1 mg [facility] 1 mg tablet 2-16 by mouth ity of 13:27: daily. [address] foLIC acid 2018-03 Yes 1mg Take 1 mg [facility] 1 mg tablet 2-16 by mouth ity of 13:27: daily. [address] foLIC acid 2018-03 Yes 1mg Take 1 mg [facility] 1 mg tablet 2-16 by mouth ity of 13:27: daily. [address] foLIC acid 2018-03 Yes 1mg Take 1 mg [facility] 1 mg tablet 2-16 by mouth ity of 13:27: daily. [address] foLIC acid 2018-03 Yes 1mg Take 1 mg [facility] 1 mg tablet 2-16 by mouth ity of 13:27: daily. [address] foLIC acid 2018-03 Yes 1mg Take 1 mg [facility] 1 mg tablet 2-16 by mouth ity of 13:27: daily. [address] foLIC acid 2019-1 Yes 1mg Take 1 mg [facility] 1 mg tablet 2-16 by mouth ity of 13:27: daily. [address] hydrocortis 2019-0 Yes [id number] Apply to [facility] 2.5 % 2-13 area(s) 2 ity o f cream 00:00: (two) [place] 00 times Medical daily. [facility] hydrocortis 2018-0 Yes [id number] Apply to [facility] 2.5 % 2-13 area(s) 2 ity o f cream 00:00: (two) [place] 00 times Medical daily. [facility] hydrocortis 2018-0 Yes [id number] Apply to [facility] 2.5 % 2-13 area(s) 2 ity o f cream 00:00: (two) [place] 00 times Medical daily. [facility] hydrocortis 2018-0 Yes [id number] Apply to [facility] 2.5 % 2-13 area(s) 2 ity o f cream 00:00: (two) [place] 00 times Medical daily. [facility] hydrocortis 2018-0 Yes [id number] Apply to [facility] 2.5 % 2-13 area(s) 2 ity o f cream 00:00: (two) [place] 00 times Medical daily. [facility] hydrocortis 2018-0 Yes [id number] Apply to [facility] 2.5 % 2-13 area(s) 2 ity o f cream 00:00: (two) [place] 00 times Medical daily. [facility] hydrocortis 2018-0 Yes [id number] Apply to [facility] 2.5 % 2-13 area(s) 2 ity o f cream 00:00: (two) [place] 00 times Medical daily. [facility] hydrocortis 2019-0 Yes [id number] Apply to [facility] 2.5 % 2-13 area(s) 2 ity o f cream 00:00: (two) [place] 00 times Medical daily. [facility] hydrocortis 2019-0 Yes [id number] Apply to [facility] 2.5 % 2-13 area(s) 2 ity o f cream 00:00: (two) [place] 00 times Medical daily. [facility] hydrocortis 2019-0 Yes [id number] Apply to [facility] 2.5 % 2-13 area(s) 2 ity o f cream 00:00: (two) [place] 00 times Medical daily. [facility] hydrocortis 2019-0 Yes [id number] Apply to [facility] 2.5 % 2-13 area(s) 2 ity o f cream 00:00: (two) [place] 00 times Medical daily. [facility] hydrocortis 2019-0 Yes [id number] Apply to [facility] 2.5 % 2-13 area(s) 2 ity o f cream 00:00: (two) [place] 00 times Medical daily. [facility] hydrocortis 2019-0 Yes [id number] Apply to [facility] 2.5 % 2-13 area(s) 2 ity o f cream 00:00: (two) [place] 00 times Medical daily. [facility] hydrocortis 2019-0 Yes [id number] Apply to [facility] 2.5 % 2-13 area(s) 2 ity o f cream 00:00: (two) [place] 00 times Medical daily. [facility] hydrocortis 2019-0 Yes [id number] Apply to [facility] 2.5 % 2-13 area(s) 2 ity o f cream 00:00: (two) [place] 00 times Medical daily. [facility] hydrocortis 2018-0 Yes [id number] Apply to [facility] 2.5 % 2-13 area(s) 2 ity o f cream 00:00: (two) [place] 00 times Medical daily. [facility] hydrocortis 2019-0 Yes [id number] Apply to [facility] 2.5 % 2-13 area(s) 2 ity o f cream 00:00: (two) [place] 00 times Medical daily. [facility] hydrocortis 2019-0 Yes [id number] Apply to [facility] 2.5 % 2-13 area(s) 2 ity o f cream 00:00: (two) [place] 00 times Medical daily. [facility] hydrocortis 2019-0 Yes [id number] Apply to [facility] 2.5 % 2-13 area(s) 2 ity o f cream 00:00: (two) [place] 00 times Medical daily. [facility] hydrocortis 2019-0 Yes [id number] Apply to [facility] 2.5 % 2-13 area(s) 2 ity o f cream 00:00: (two) [place] 00 times Medical daily. [facility] hydrocortis 2019-0 Yes [id number] Apply to [facility] 2.5 % 2-13 area(s) 2 ity o f cream 00:00: (two) [place] 00 times Medical daily. [facility] hydrocortis 2019-0 Yes [id number] Apply to [facility] 2.5 % 2-13 area(s) 2 ity o f cream 00:00: (two) [place] 00 times Medical daily. [facility] hydrocortis 2019-0 Yes [id number] Apply to [facility] 2.5 % 2-13 area(s) 2 ity o f cream 00:00: (two) [place] 00 times Medical daily. [facility] hydrocortis 2019-0 Yes [id number] Apply to [facility] 2.5 % 2-13 area(s) 2 ity o f cream 00:00: (two) [place] 00 times Medical daily. [facility] hydrocortis 2019-0 Yes [id number] Apply to [facility] 2.5 % 2-13 area(s) 2 ity o f cream 00:00: (two) [place] 00 times Medical daily. [facility] hydrocortis 2018-0 Yes [id number] Apply to [facility] 2.5 % 2-13 area(s) 2 ity o f cream 00:00: (two) [place] 00 times Medical daily. [facility] hydrocortis 2018-0 Yes [id number] Apply to [facility] 2.5 % 2-13 area(s) 2 ity o f cream 00:00: (two) [place] 00 times Medical daily. [facility] hydrocortis 2019-0 Yes [id number] Apply to [facility] 2.5 % 2-13 area(s) 2 ity o f cream 00:00: (two) [place] 00 times Medical daily. [facility] hydrocortis 2019-0 Yes [id number] Apply to [facility] 2.5 % 2-13 area(s) 2 ity o f cream 00:00: (two) [place] 00 times Medical daily. [facility] hydrocortis 2019-0 Yes [id number] Apply to [facility] 2.5 % 2-13 area(s) 2 ity o f cream 00:00: (two) [place] 00 times Medical daily. [facility] hydrocortis 2019-0 Yes [id number] Apply to [facility] 2.5 % 2-13 area(s) 2 ity o f cream 00:00: (two) [place] 00 times Medical daily. [facility] hydrocortis 2019-0 Yes [id number] Apply to [facility] 2.5 % 2-13 area(s) 2 ity o f cream 00:00: (two) [place] 00 times Medical daily. [facility] hydrocortis 2019-0 Yes [id number] Apply to [facility] 2.5 % 2-13 area(s) 2 ity o f cream 00:00: (two) [place] 00 times Medical daily. [facility] hydrocortis 2019-0 Yes [id number] Apply to [facility] 2.5 % 2-13 area(s) 2 ity o f cream 00:00: (two) [place] 00 times Medical daily. [facility] hydrocortis 2019-0 Yes [id number] Apply to [facility] 2.5 % 2-13 area(s) 2 ity o f cream 00:00: (two) [place] 00 times Medical daily. [facility] hydrocortis 2019-0 Yes [id number] Apply to [facility] 2.5 % 2-13 area(s) 2 ity o f cream 00:00: (two) [place] 00 times Medical daily. [facility] hydrocortis 2018-0 Yes [id number] Apply to [facility] 2.5 % 2-13 area(s) 2 ity o f cream 00:00: (two) [place] 00 times Medical daily. [facility] hydrocortis 2018-0 Yes [id number] Apply to [facility] 2.5 % 2-13 area(s) 2 ity o f cream 00:00: (two) [place] 00 times Medical daily. [facility] hydrocortis 2019-0 Yes [id number] Apply to [facility] 2.5 % 2-13 area(s) 2 ity o f cream 00:00: (two) [place] 00 times Medical daily. [facility] hydrocortis 2019-0 Yes [id number] Apply to [facility] 2.5 % 2-13 area(s) 2 ity o f cream 00:00: (two) [place] 00 times Medical daily. [facility] hydrocortis 2019-0 Yes [id number] Apply to [facility] 2.5 % 2-13 area(s) 2 ity o f cream 00:00: (two) [place] 00 times Medical daily. [facility] hydrocortis 2019-0 Yes [id number] Apply to [facility] 2.5 % 2-13 area(s) 2 ity o f cream 00:00: (two) [place] 00 times Medical daily. [facility] hydrocortis 2019-0 Yes [id number] Apply to [facility] 2.5 % 2-13 area(s) 2 ity o f cream 00:00: (two) [place] 00 times Medical daily. [facility] hydrocortis 2019-0 Yes [id number] Apply to [facility] 2.5 % 2-13 area(s) 2 ity o f cream 00:00: (two) [place] 00 times Medical daily. [facility] hydrocortis 2019-0 Yes [id number] Apply to [facility] 2.5 % 2-13 area(s) 2 ity o f cream 00:00: (two) [place] 00 times Medical daily. [facility] hydrocortis 2018-0 Yes [id number] Apply to [facility] 2.5 % 2-13 area(s) 2 ity o f cream 00:00: (two) [place] 00 times Medical daily. [facility] hydrocortis 2018-0 Yes [id number] Apply to [facility] 2.5 % 2-13 area(s) 2 ity o f cream 00:00: (two) [place] 00 times Medical daily. [facility] hydrocortis 2018-0 Yes [id number] Apply to [facility] 2.5 % 2-13 area(s) 2 ity o f cream 00:00: (two) [place] 00 times Medical daily. [facility] hydrocortis 2018-0 Yes [id number] Apply to [facility] 2.5 % 2-13 area(s) 2 ity o f cream 00:00: (two) [place] 00 times Medical daily. [facility] hydrocortis 2018-0 Yes [id number] Apply to [facility] 2.5 % 2-13 area(s) 2 ity o f cream 00:00: (two) [place] 00 times Medical daily. [facility] hydrocortis 2019-0 Yes [id number] Apply to [facility] 2.5 % 2-13 area(s) 2 ity o f cream 00:00: (two) [place] 00 times Medical daily. [facility] hydrocortis 2019-0 Yes [id number] Apply to [facility] 2.5 % 2-13 area(s) 2 ity o f cream 00:00: (two) [place] 00 times Medical daily. [facility] hydrocortis 2019-0 Yes [id number] Apply to [facility] 2.5 % 2-13 area(s) 2 ity o f cream 00:00: (two) [place] 00 times Medical daily. [facility] hydrocortis 2019-0 Yes [id number] Apply to [facility] 2.5 % 2-13 area(s) 2 ity o f cream 00:00: (two) [place] 00 times Medical daily. [facility] hydrocortis 2019-0 Yes [id number] Apply to [facility] 2.5 % 2-13 area(s) 2 ity o f cream 00:00: (two) [place] 00 times Medical daily. [facility] hydrocortis 2019-0 Yes [id number] Apply to [facility] 2.5 % 2-13 area(s) 2 ity o f cream 00:00: (two) [place] 00 times Medical daily. [facility] hydrocortis 2019-0 Yes [id number] Apply to [facility] 2.5 % 2-13 area(s) 2 ity o f cream 00:00: (two) [place] 00 times Medical daily. [facility] hydrocortis 2018-0 Yes [id number] Apply to [facility] 2.5 % 2-13 area(s) 2 ity o f cream 00:00: (two) [place] 00 times Medical daily. [facility] hydrocortis 2018-0 Yes [id number] Apply to [facility] 2.5 % 2-13 area(s) 2 ity o f cream 00:00: (two) [place] 00 times Medical daily. Branch hydrocortis 2018-0 Yes [id number] Apply to [facility] 2.5 % 2-13 area(s) 2 ity o f cream 00:00: (two) [place] 00 times Medical daily. [facility] hydrocortis 2018-0 Yes [id number] Apply to [facility] 2.5 % 2-13 area(s) 2 ity o f cream 00:00: (two) [place] 00 times Medical daily. Branch hydrocortis 2019-0 Yes [id number] Apply to [facility] 2.5 % 2-13 area(s) 2 ity o f cream 00:00: (two) [place] 00 times Medical daily. Branch hydrocortis 2019-0 Yes [id number] Apply to [facility] 2.5 % 2-13 area(s) 2 ity o f cream 00:00: (two) [place] 00 times Medical daily. [facility] hydrocortis 2019-0 Yes [id number] Apply to [facility] 2.5 % 2-13 area(s) 2 ity o f cream 00:00: (two) [place] 00 times Medical daily. Branch hydrocortis 2019-0 Yes [id number] Apply to [facility] 2.5 % 2-13 area(s) 2 ity o f cream 00:00: (two) [place] 00 times Medical daily. Branch hydrocortis 2019-0 Yes [id number] Apply to [facility] 2.5 % 2-13 area(s) 2 ity o f cream 00:00: (two) [place] 00 times Medical daily. Branch hydrocortis 2019-0 Yes [id number] Apply to [facility] 2.5 % 2-13 area(s) 2 ity o f cream 00:00: (two) [place] 00 times Medical daily. [facility] hydrocortis 2019-0 Yes [id number] Apply to [facility] 2.5 % 2-13 area(s) 2 ity o f cream 00:00: (two) [place] 00 times Medical daily. [facility] hydrocortis 2018-0 Yes [id number] Apply to [facility] 2.5 % 2-13 area(s) 2 ity o f cream 00:00: (two) [place] 00 times Medical daily. Branch hydrocortis 2019-0 Yes [id number] Apply to [facility] 2.5 % 2-13 area(s) 2 ity o f cream 00:00: (two) [place] 00 times Medical daily. Branch hydrocortis 2018-0 Yes [id number] Apply to [facility] 2.5 % 2-13 area(s) 2 ity o f cream 00:00: (two) [place] 00 times Medical daily. Branch hydrocortis 2019-0 Yes [id number] Apply to [facility] 2.5 % 2-13 area(s) 2 ity o f cream 00:00: (two) [place] 00 times Medical daily. [facility] hydrocortis 2019-0 Yes [id number] Apply to [facility] 2.5 % 2-13 area(s) 2 ity o f cream 00:00: (two) [place] 00 times Medical daily. Branch hydrocortis 2019-0 Yes [id number] Apply to [facility] 2.5 % 2-13 area(s) 2 ity o f cream 00:00: (two) [place] 00 times Medical daily. Branch hydrocortis 2019-0 Yes [id number] Apply to [facility] 2.5 % 2-13 area(s) 2 ity o f cream 00:00: (two) [place] 00 times Medical daily. Branch hydrocortis 2019-0 Yes [id number] Apply to [facility] 2.5 % 2-13 area(s) 2 ity o f cream 00:00: (two) [place] 00 times Medical daily. Branch hydrocortis 2019-0 Yes [id number] Apply to [facility] 2.5 % 2-13 area(s) 2 ity o f cream 00:00: (two) [place] 00 times Medical daily. [facility] hydrocortis 2019-0 Yes [id number] Apply to [facility] 2.5 % 2-13 area(s) 2 ity o f cream 00:00: (two) [place] 00 times Medical daily. Branch hydrocortis 2019-0 Yes [id number] Apply to [facility] 2.5 % 2-13 area(s) 2 ity o f cream 00:00: (two) [place] 00 times Medical daily. Branch hydrocortis 2019-0 Yes [id number] Apply to [facility] 2.5 % 2-13 area(s) 2 ity o f cream 00:00: (two) [place] 00 times Medical daily. Branch hydrocortis 2019-0 Yes [id number] Apply to [facility] 2.5 % 2-13 area(s) 2 ity o f cream 00:00: (two) [place] 00 times Medical daily. Branch hydrocortis 2019-0 Yes [id number] Apply to [facility] 2.5 % 2-13 area(s) 2 ity o f cream 00:00: (two) [place] 00 times Medical daily. Branch hydrocortis 2019-0 Yes [id number] Apply to [facility] 2.5 % 2-13 area(s) 2 ity o f cream 00:00: (two) [place] 00 times Medical daily. Branch hydrocortis 2019-0 Yes [id number] Apply to [facility] 2.5 % 2-13 area(s) 2 ity o f cream 00:00: (two) [place] 00 times Medical daily. Branch hydrocortis 2019-0 Yes [id number] Apply to [facility] 2.5 % 2-13 area(s) 2 ity o f cream 00:00: (two) [place] 00 times Medical daily. Branch hydrocortis 2019-0 Yes [id number] Apply to [facility] 2.5 % 2-13 area(s) 2 ity o f cream 00:00: (two) [place] 00 times Medical daily. Branch hydrocortis 2019-0 Yes [id number] Apply to [facility] 2.5 % 2-13 area(s) 2 ity o f cream 00:00: (two) [place] 00 times Medical daily. Branch hydrocortis 2019-0 Yes [id number] Apply to [facility] 2.5 % 2-13 area(s) 2 ity o f cream 00:00: (two) [place] 00 times Medical daily. Branch hydrocortis 2019-0 Yes [id number] Apply to [facility] 2.5 % 2-13 area(s) 2 ity o f cream 00:00: (two) [place] 00 times Medical daily. Branch hydrocortis 2019-0 Yes [id number] Apply to [facility] 2.5 % 2-13 area(s) 2 ity o f cream 00:00: (two) [place] 00 times Medical daily. Branch hydrocortis 2019-0 Yes [id number] Apply to [facility] 2.5 % 2-13 area(s) 2 ity o f cream 00:00: (two) [place] 00 times Medical daily. Branch hydrocortis 2019-0 Yes [id number] Apply to [facility] 2.5 % 2-13 area(s) 2 ity o f cream 00:00: (two) [place] 00 times Medical daily. Branch hydrocortis 2019-0 Yes [id number] Apply to [facility] 2.5 % 2-13 area(s) 2 ity o f cream 00:00: (two) [place] 00 times Medical daily. Branch hydrocortis 2019-0 Yes [id number] Apply to [facility] 2.5 % 2-13 area(s) 2 ity o f cream 00:00: (two) [place] 00 times Medical daily. Branch hydrocortis 2019-0 Yes [id number] Apply to [facility] 2.5 % 2-13 area(s) 2 ity o f cream 00:00: (two) [place] 00 times Medical daily. Branch hydrocortis 2019-0 Yes [id number] Apply to [facility] 2.5 % 2-13 area(s) 2 ity o f cream 00:00: (two) [place] 00 times Medical daily. Branch hydrocortis 2019-0 Yes [id number] Apply to [facility] 2.5 % 2-13 area(s) 2 ity o f cream 00:00: (two) [place] 00 times Medical daily. Branch hydrocortis 2019-0 Yes [id number] Apply to [facility] 2.5 % 2-13 area(s) 2 ity o f cream 00:00: (two) [place] 00 times Medical daily. Branch hydrocortis 2019-0 Yes [id number] Apply to [facility] 2.5 % 2-13 area(s) 2 ity o f cream 00:00: (two) [place] 00 times Medical daily. Branch hydrocortis 2019-0 Yes [id number] Apply to [facility] 2.5 % 2-13 area(s) 2 ity o f cream 00:00: (two) [place] 00 times Medical daily. Branch hydrocortis 2019-0 Yes [id number] Apply to [facility] 2.5 % 2-13 area(s) 2 ity o f cream 00:00: (two) [place] 00 times Medical daily. Branch hydrocortis 2019-0 Yes [id number] Apply to [facility] 2.5 % 2-13 area(s) 2 ity o f cream 00:00: (two) [place] 00 times Medical daily. Branch hydrocortis 2018-0 Yes [id number] Apply to [facility] 2.5 % 2-13 area(s) 2 ity o f cream 00:00: (two) [place] 00 times Medical daily. Branch hydrocortis 2019-0 Yes [id number] Apply to [facility] 2.5 % 2-13 area(s) 2 ity o f cream 00:00: (two) [place] 00 times Medical daily. Branch hydrocortis 2019-0 Yes [id number] Apply to [facility] 2.5 % 2-13 area(s) 2 ity o f cream 00:00: (two) [place] 00 times Medical daily. Branch hydrocortis 2019-0 Yes [id number] Apply to [facility] 2.5 % 2-13 area(s) 2 ity o f cream 00:00: (two) [place] 00 times Medical daily. Branch hydrocortis 2019-0 Yes [id number] Apply to [facility] 2.5 % 2-13 area(s) 2 ity o f cream 00:00: (two) [place] 00 times Medical daily. Branch hydrocortis 2019-0 Yes [id number] Apply to [facility] 2.5 % 2-13 area(s) 2 ity o f cream 00:00: (two) [place] 00 times Medical daily. Branch hydrocortis 2019-0 Yes [id number] Apply to [facility] 2.5 % 2-13 area(s) 2 ity o f cream 00:00: (two) [place] 00 times Medical daily. Branch hydrocortis 2019-0 Yes [id number] Apply to [facility] 2.5 % 2-13 area(s) 2 ity o f cream 00:00: (two) [place] 00 times Medical daily. Branch hydrocortis 2019-0 Yes [id number] Apply to [facility] 2.5 % 2-13 area(s) 2 ity o f cream 00:00: (two) [place] 00 times Medical daily. [facility] hydrocortis 2019-0 Yes [id number] Apply to [facility] 2.5 % 2-13 area(s) 2 ity o f cream 00:00: (two) [place] 00 times Medical daily. Branch hydrocortis 2018-0 Yes [id number] Apply to [facility] 2.5 % 2-13 area(s) 2 ity o f cream 00:00: (two) [place] 00 times Medical daily. Branch hydrocortis 2018-0 Yes [id number] Apply to [facility] 2.5 % 2-13 area(s) 2 ity o f cream 00:00: (two) [place] 00 times Medical daily. Branch hydrocortis 2019-0 Yes [id number] Apply to [facility] 2.5 % 2-13 area(s) 2 ity o f cream 00:00: (two) [place] 00 times Medical daily. Branch hydrocortis 2019-0 Yes [id number] Apply to [facility] 2.5 % 2-13 area(s) 2 ity o f cream 00:00: (two) [place] 00 times Medical daily. Branch hydrocortis 2019-0 Yes [id number] Apply to [facility] 2.5 % 2-13 area(s) 2 ity o f cream 00:00: (two) [place] 00 times Medical daily. Branch hydrocortis 2019-0 Yes [id number] Apply to [facility] 2.5 % 2-13 area(s) 2 ity o f cream 00:00: (two) [place] 00 times Medical daily. Branch hydrocortis 2019-0 Yes [id number] Apply to [facility] 2.5 % 2-13 area(s) 2 ity o f cream 00:00: (two) [place] 00 times Medical daily. Branch hydrocortis 2019-0 Yes [id number] Apply to [facility] 2.5 % 2-13 area(s) 2 ity o f cream 00:00: (two) [place] 00 times Medical daily. Branch hydrocortis 2019-0 Yes [id number] Apply to [facility] 2.5 % 2-13 area(s) 2 ity o f cream 00:00: (two) [place] 00 times Medical daily. Branch hydrocortis 2019-0 Yes [id number] Apply to [facility] 2.5 % 2-13 area(s) 2 ity o f cream 00:00: (two) [place] 00 times Medical daily. Branch hydrocortis 2019-0 Yes [id number] Apply to [facility] 2.5 % 2-13 area(s) 2 ity o f cream 00:00: (two) [place] 00 times Medical daily. Branch hydrocortis 2019-0 Yes [id number] Apply to [facility] 2.5 % 2-13 area(s) 2 ity o f cream 00:00: (two) [place] 00 times Medical daily. Branch hydrocortis 2019-0 Yes [id number] Apply to [facility] 2.5 % 2-13 area(s) 2 ity o f cream 00:00: (two) [place] 00 times Medical daily. Branch hydrocortis 2019-0 Yes [id number] Apply to [facility] 2.5 % 2-13 area(s) 2 ity o f cream 00:00: (two) [place] 00 times Medical daily. Branch hydrocortis 2019-0 Yes [id number] Apply to [facility] 2.5 % 2-13 area(s) 2 ity o f cream 00:00: (two) [place] 00 times Medical daily. Branch hydrocortis 2019-0 Yes [id number] Apply to [facility] 2.5 % 2-13 area(s) 2 ity o f cream 00:00: (two) [place] 00 times Medical daily. Branch hydrocortis 2019-0 Yes [id number] Apply to [facility] 2.5 % 2-13 area(s) 2 ity o f cream 00:00: (two) [place] 00 times Medical daily. Branch hydrocortis 2019-0 Yes [id number] Apply to [facility] 2.5 % 2-13 area(s) 2 ity o f cream 00:00: (two) [place] 00 times Medical daily. Branch hydrocortis 2019-0 Yes [id number] Apply to [facility] 2.5 % 2-13 area(s) 2 ity o f cream 00:00: (two) [place] 00 times Medical daily. Branch hydrocortis 2019-0 Yes [id number] Apply to [facility] 2.5 % 2-13 area(s) 2 ity o f cream 00:00: (two) [place] 00 times Medical daily. Branch hydrocortis 2019-0 Yes [id number] Apply to [facility] 2.5 % 2-13 area(s) 2 ity o f cream 00:00: (two) [place] 00 times Medical daily. Branch hydrocortis 2019-0 Yes [id number] Apply to [facility] 2.5 % 2-13 area(s) 2 ity o f cream 00:00: (two) [place] 00 times Medical daily. Branch hydrocortis 2019-0 Yes [id number] Apply to [facility] 2.5 % 2-13 area(s) 2 ity o f cream 00:00: (two) [place] 00 times Medical daily. Branch hydrocortis 2019-0 Yes [id number] Apply to [facility] 2.5 % 2-13 area(s) 2 ity o f cream 00:00: (two) [place] 00 times Medical daily. Branch hydrocortis 2019-0 Yes [id number] Apply to [facility] 2.5 % 2-13 area(s) 2 ity o f cream 00:00: (two) [place] 00 times Medical daily. Branch hydrocortis 2019-0 Yes [id number] Apply to [facility] 2.5 % 2-13 area(s) 2 ity o f cream 00:00: (two) [place] 00 times Medical daily. Branch hydrocortis 2019-0 Yes [id number] Apply to [facility] 2.5 % 2-13 area(s) 2 ity o f cream 00:00: (two) [place] 00 times Medical daily. Branch hydrocortis 2019-0 Yes [id number] Apply to [facility] 2.5 % 2-13 area(s) 2 ity o f cream 00:00: (two) [place] 00 times Medical daily. Branch hydrocortis 2019-0 Yes [id number] Apply to [facility] 2.5 % 2-13 area(s) 2 ity o f cream 00:00: (two) [place] 00 times Medical daily. Branch hydrocortis 2019-0 Yes [id number] Apply to [facility] 2.5 % 2-13 area(s) 2 ity o f cream 00:00: (two) [place] 00 times Medical daily. Branch hydrocortis 2018-0 Yes [id number] Apply to [facility] 2.5 % 2-13 area(s) 2 ity o f cream 00:00: (two) [place] 00 times Medical daily. Branch hydrocortis 2019-0 Yes [id number] Apply to [facility] 2.5 % 2-13 area(s) 2 ity o f cream 00:00: (two) [place] 00 times Medical daily. Branch hydrocortis 2018-0 Yes [id number] Apply to [facility] 2.5 % 2-13 area(s) 2 ity o f cream 00:00: (two) [place] 00 times Medical daily. Branch hydrocortis 2018- Yes [id number] Apply to [facility] 2.5 % 2-13 area(s) 2 ity o f cream 00:00: (two) [place] 00 times Medical daily. [place] Levetiracet Yes 1,000 mg = Memoria am 1000 MG 6-27 1 tab, PO, l Oral Tablet 19:30: BID, # 60 H [place] [Keppra] 00 tab, 0 Refill(s), Pharmacy: [facility] Levetiracet Yes 1,000 mg = Memoria am 1000 MG 6-27 1 tab, PO, l Oral Tablet 19:30: BID, # 60 [place] [Keppra] 00 tab, 0 Refill(s), Pharmacy: [facility] Levetiracet Yes 1,000 mg = Memoria am 1000 MG 6-27 1 tab, PO, l Oral Tablet 19:30: BID, # 60 [place] [Keppra] 00 tab, 0 Refill(s), Pharmacy: [facility] Levetiracet Yes 1,000 mg = Memoria am 1000 MG 6-27 1 tab, PO, l Oral Tablet 19:30: BID, # 60 [place] [Keppra] 00 tab, 0 Refill(s), Pharmacy: [facility] Levetiracet Yes 1,000 mg = Memoria am 1000 MG 6-27 1 tab, PO, l Oral Tablet 19:30: BID, # 60 [place] [Keppra] 00 tab, 0 Refill(s), Pharmacy: [facility] Levetiracet Yes 1,000 mg = Memoria am 1000 MG 6-27 1 tab, PO, l Oral Tablet 19:30: BID, # 60 [place] [Keppra] 00 tab, 0 Refill(s), Pharmacy: [facility] Levetiracet Yes 1,000 mg = Memoria am 1000 MG 6-27 1 tab, PO, l Oral Tablet 19:30: BID, # 60 [place] [Keppra] 00 tab, 0 Refill(s), Pharmacy: [facility] Levetiracet Yes 1,000 mg = Memoria am 1000 MG 6-27 1 tab, PO, l Oral Tablet 19:30: BID, # 60 [place] [Keppra] 00 tab, 0 Refill(s), Pharmacy: [facility] Levetiracet Yes 1,000 mg = Memoria am 1000 MG 6-27 1 tab, PO, l Oral Tablet 19:30: BID, # 60 [place] [Keppra] 00 tab, 0 Refill(s), Pharmacy: [facility] Plavix No Notes: Memoria 6-27 (Same As: l 14:00: Plavix) [place] 00 Aspirin 81 No Notes: Do Me moria MG Enteric 6-27 not crush l Coated 14:00: or chew. Chris Tablet 00 (Same As: Ecotrin) Protonix No Notes: Memoria 6-27 Tablet l 14:00: should not [place] 00 be chewed or crushed. (Same as: Protonix) Zoloft No Notes: [facility]oria 6-27 (Same as: l 14:00: Zoloft) [place] 00 Lopressor No Notes: Memori a 6-27 (Same as: l 14:00: Lopressor) [place] 00 Losartan No Notes: [facility] 6-27 (Same as: l 14:00: Cozaar) [place] Hydrochloro No Notes: Jorge jakob thiazide 6-27 (Same as: l 14:00: Hydrodiuri [place] 00 l) With food. Amlodipine No Notes: Memor ia 6-27 (Same as: l 14:00: Norvasc) [place] Plavix No Notes: [facility] 6-27 (Same As: l 14:00: Plavix) [place] Aspirin 81 No Notes: Do Me moria MG Enteric 6-27 not crush l Coated 14:00: or chew. [place] Tablet 00 (Same As: Ecotrin) Protonix No Notes: [facility]oria 6-27 Tablet l 14:00: should not [place] 00 be chewed or crushed. (Same as: Protonix) Zoloft No Notes: [facility]oria 6-27 (Same as: l 14:00: Zoloft) [place] Lopressor No Notes: Memori a 6-27 (Same as: l 14:00: Lopressor) [place] Losartan No Notes: [facility]oria 6-27 (Same as: l 14:00: Cozaar) [place] 00 Hydrochloro No Notes: Jorge jakob thiazide 6-27 (Same as: l 14:00: Hydrodiuri [place] 00 l) With food. Amlodipine No Notes: Memor ia 6-27 (Same as: l 14:00: Norvasc) [place] Plavix No Notes: [facility]oria 6-27 (Same As: l 14:00: Plavix) [place] Aspirin 81 No Notes: Do Me moria MG Enteric 6-27 not crush l Coated 14:00: or chew. [place] Tablet 00 (Same As: Ecotrin) Protonix No Notes: [facility]oria 6-27 Tablet l 14:00: should not [place] 00 be chewed or crushed. (Same as: Protonix) Zoloft No Notes: [facility]oria 6-27 (Same as: l 14:00: Zoloft) [place] 00 Lopressor No Notes: Memori a 6-27 (Same as: l 14:00: Lopressor) [place] Losartan No Notes: [facility]oria 6-27 (Same as: l 14:00: Cozaar) [place] 00 Hydrochloro No Notes: Jorge jakob thiazide 6-27 (Same as: l 14:00: Hydrodiuri [place] 00 l) With food. Amlodipine No Notes: Memor ia 6-27 (Same as: l 14:00: Norvasc) [place] Plavix No Notes: [facility]oria 6-27 (Same As: l 14:00: Plavix) [place] Aspirin 81 No Notes: Do Me moria MG Enteric 6-27 not crush l Coated 14:00: or chew. [place] Tablet 00 (Same As: Ecotrin) Protonix No Notes: [facility] 6-27 Tablet l 14:00: should not [place] 00 be chewed or crushed. (Same as: Protonix) Zoloft No Notes: [facility] 6-27 (Same as: l 14:00: Zoloft) [place] Lopressor No Notes: Memori a 6-27 (Same as: l 14:00: Lopressor) [place] Losartan No Notes: [facility]oria 6-27 (Same as: l 14:00: Cozaar) [place] Hydrochloro No Notes: Jorge jakob thiazide 6-27 (Same as: l 14:00: Hydrodiuri [place] 00 l) With food. Amlodipine No Notes: Memor ia 6-27 (Same as: l 14:00: Norvasc) [place] 00 Plavix No Notes: [facility] 6-27 (Same As: l 14:00: Plavix) [place] Aspirin 81 No Notes: Do Me moria MG Enteric 6-27 not crush l Coated 14:00: or chew. [place] Tablet 00 (Same As: Ecotrin) Protonix No Notes: [facility] 6-27 Tablet l 14:00: should not [place] 00 be chewed or crushed. (Same as: Protonix) Zoloft No Notes: [facility] 6-27 (Same as: l 14:00: Zoloft) [place] 00 Lopressor No Notes: Memori a 6-27 (Same as: l 14:00: Lopressor) [place] Losartan No Notes: [facility]oria 6-27 (Same as: l 14:00: Cozaar) [place] Hydrochloro No Notes: Jorge jakob thiazide 6-27 (Same as: l 14:00: Hydrodiuri [place] 00 l) With food. Amlodipine No Notes: Memor ia 6-27 (Same as: l 14:00: Norvasc) [place] Plavix No Notes: [facility] 6-27 (Same As: l 14:00: Plavix) [place] Aspirin 81 No Notes: Do Me moria MG Enteric 6-27 not crush l Coated 14:00: or chew. [place] Tablet 00 (Same As: Ecotrin) Protonix No Notes: [facility]oria 6-27 Tablet l 14:00: should not [place] 00 be chewed or crushed. (Same as: Protonix) Zoloft No Notes: [facility] 6-27 (Same as: l 14:00: Zoloft) [place] 00 Lopressor No Notes: Memori a 6-27 (Same as: l 14:00: Lopressor) [place] 00 Losartan No Notes: Memoria 6-27 (Same as: l 14:00: Cozaar) Hydrochloro No Notes: Jorge jakob thiazide 6-27 (Same as: l 14:00: Hydrodiuri [place] 00 l) With food. Amlodipine No Notes: Memor ia 6-27 (Same as: l 14:00: Norvasc) [place] Plavix No Notes: [facility] 6-27 (Same As: l 14:00: Plavix) [place] Aspirin 81 No Notes: Do Me moria MG Enteric 6-27 not crush l Coated 14:00: or chew. [place] Tablet 00 (Same As: Ecotrin) Protonix No Notes: [facility] 6-27 Tablet l 14:00: should not [place] 00 be chewed or crushed. (Same as: Protonix) Zoloft No Notes: [facility] 6-27 (Same as: l 14:00: Zoloft) [place] 00 Lopressor No Notes: Memori a 6-27 (Same as: l 14:00: Lopressor) [place] Losartan No Notes: [facility]oria 6-27 (Same as: l 14:00: Cozaar) [place] Hydrochloro No Notes: Jorge jakob thiazide 6-27 (Same as: l 14:00: Hydrodiuri [place] 00 l) With food. Amlodipine No Notes: Memor ia 6-27 (Same as: l 14:00: Norvasc) [place] Plavix No Notes: Memoria 6-27 (Same As: l 14:00: Plavix) [place] Aspirin 81 No Notes: Do Me moria MG Enteric 6-27 not crush l Coated 14:00: or chew. [place] Tablet 00 (Same As: Ecotrin) Protonix No Notes: [facility] 6-27 Tablet l 14:00: should not [place] 00 be chewed or crushed. (Same as: Protonix) Zoloft No Notes: [facility]oria 6-27 (Same as: l 14:00: Zoloft) [place] Lopressor No Notes: Memori a 6-27 (Same as: l 14:00: Lopressor) [place] Losartan No Notes: Memoria 6-27 (Same as: l 14:00: Cozaar) [place] Hydrochloro No Notes: Jorge jakob thiazide 6-27 (Same as: l 14:00: Hydrodiuri [place] 00 l) With food. Amlodipine No Notes: Memor ia 6-27 (Same as: l 14:00: Norvasc) [place] 00 Plavix No Notes: [facility]oria 6-27 (Same As: l 14:00: Plavix) [place] Aspirin 81 No Notes: Do Me moria MG Enteric 6-27 not crush l Coated 14:00: or chew. [place] Tablet 00 (Same As: Ecotrin) Protonix No Notes: [facility]oria 6-27 Tablet l 14:00: should not [place] 00 be chewed or crushed. (Same as: Protonix) Zoloft No Notes: [facility]oria 6-27 (Same as: l 14:00: Zoloft) Lopressor No Notes: Memori a 6-27 (Same as: l 14:00: Lopressor) Losartan No Notes: Memoria 6-27 (Same as: l 14:00: Cozaar) Hydrochloro No Notes: Jorge jakob thiazide 6- (Same as: l 14:00: Hydrodiuri l) With food. Amlodipine No Notes: Memor ia 6-27 (Same as: l 14:00: Norvasc) Insulin No Notes: [facility] Lispro 6-27 (Same as: l 13:46: Humalog ) Roll in palms of hands gently; Do not shake `vigorousl y. "Single Patient Use Only " WASTE: F/P - Black; E - Municipal Trash Bin Stable for 28 days at room temperatur e. Expires in days from ____Date Dextrose No 25 gm, 50 Jorge jakob 50% Syringe 6-27 mL, Route: l 13:46: IVP, Drug Form: INJ, Dosing Weight 78.7, kg, PRN, PRN Blood Glucose Results, Start date: 09/16/17 8:46:00 CDT, Duration: 30 day, Stop date: 10/16/17 8:45:00 CDT Glucagon No 1 mg, Memoria 6-27 Route: IM, l 13:46: Drug form: PDR/INJ, PRN, Dosing Weight 78.7, kg, PRN Blood Glucose Results, Start date: 09/16/17 8:46:00 CDT, Duration: 30 day, Stop date: 10/16/17 8:45:00 CDT Insulin No Notes: [facility] Lispro 6-27 (Same as: l 13:46: Humalog ) Roll in palms of hands gently; Do not shake `vigorousl y. "Single Patient Use Only " WASTE: F/P - Black; E - Municipal Trash Bin Stable for 28 days at room temperatur e. Expires in days from ____Date Dextrose 2018-0 No 25 gm, 50 Jorge jakob 50% Syringe 6-27 mL, Route: l 13:46: IVP, Drug [place] 00 Form: INJ, Dosing Weight 78.7, kg, PRN, PRN Blood Glucose Results, Start date: 09/16/17 8:46:00 CDT, Duration: 30 day, Stop date: 10/16/17 8:45:00 CDT Glucagon 2018-0 No 1 mg, Memoria 6-27 Route: IM, l 13:46: Drug form: [place] 00 PDR/INJ, PRN, Dosing Weight 78.7, kg, PRN Blood Glucose Results, Start date: 09/16/17 8:46:00 CDT, Duration: 30 day, Stop date: 10/16/17 8:45:00 CDT Insulin 2018-0 No Notes: [facility] Lispro -27 (Same as: l 13:46: Humalog ) Roll in palms of hands gently; Do not shake `vigorousl y. "Single Patient Use Only " WASTE: F/P - Black; E - Municipal Trash Bin Stable for 28 days at room temperatur e. Expires in days from ____Date Dextrose 2018-0 No 25 gm, 50 Jorge jakob 50% Syringe 6-27 mL, Route: l 13:46: IVP, Drug Form: INJ, Dosing Weight 78.7, kg, PRN, PRN Blood Glucose Results, Start date: 09/16/17 8:46:00 CDT, Duration: 30 day, Stop date: 10/16/17 8:45:00 CDT Glucagon 2018-0 No 1 mg, Memoria 6-27 Route: IM, l 13:46: Drug form: [place] 00 PDR/INJ, PRN, Dosing Weight 78.7, kg, PRN Blood Glucose Results, Start date: 09/16/17 8:46:00 CDT, Duration: 30 day, Stop date: 10/16/17 8:45:00 CDT Insulin 2018-0 No Notes: [facility] Lispro 6-27 (Same as: l 13:46: Humalog ) [place] 00 Roll in palms of hands gently; [...] 6-27 Route: IM, l 13:46: Drug form: [place] 00 PDR/INJ, PRN, Dosing Weight 78.7, kg, PRN Blood Glucose Results, Start date: 09/16/17 8:46:00 CDT, Duration: 30 day, Stop date: 10/16/17 8:45:00 CDT Insulin 2018-0 No Notes: [facility] Lispro 6-27 (Same as: l 13:46: Humalog ) [place] 00 Roll in palms of hands gently; [...] 6-27 Route: IM, l 13:46: Drug form: [place] 00 PDR/INJ, PRN, Dosing Weight 78.7, kg, PRN Blood Glucose Results, Start date: 09/16/17 8:46:00 CDT, Duration: 30 day, Stop date: 10/16/17 8:45:00 CDT Insulin 2018-0 No Notes: [facility] Lispro 6-27 (Same as: l 13:46: Humalog ) [place] 00 Roll in palms of hands gently; [...] 6-27 Route: IM, l 13:46: Drug form: [place] 00 PDR/INJ, PRN, Dosing Weight 78.7, kg, [...] 6-27 mL, Route: l 13:46: IVP, Drug [place] 00 Form: INJ, Dosing Weight 78.7, kg, PRN, PRN Blood Glucose Results, Start date: 09/16/17 8:46:00 CDT, Duration: 30 day, Stop date: 10/16/17 8:45:00 CDT Glucagon 2018-0 No 1 mg, Memoria 6-27 Route: IM, l 13:46: Drug form: [place] 00 PDR/INJ, PRN, Dosing Weight 78.7, kg, PRN Blood Glucose Results, Start date: 09/16/17 8:46:00 CDT, Duration: 30 day, Stop date: 10/16/17 8:45:00 CDT Insulin 2018-0 No Notes: [facility] Lispro 6-27 (Same as: l 13:46: Humalog ) [place] 00 Roll in palms of hands gently; Do not shake `vigorousl y. "Single Patient Use Only " WASTE: F/P - Black; E - Municipal Trash Bin Stable for 28 days at room temperatur e. Expires in days from ____Date Dextrose 2018-0 No 25 gm, 50 Jorge jakob 50% Syringe 6-27 mL, Route: l 13:46: IVP, Drug Form: INJ, Dosing Weight 78.7, kg, PRN, PRN Blood Glucose Results, Start date: 09/16/17 8:46:00 CDT, Duration: 30 day, Stop date: 10/16/17 8:45:00 CDT Glucagon 2018-0 No 1 mg, Memoria 6- Route: IM, l 13:46: Drug form: [place] 00 PDR/INJ, PRN, Dosing Weight 78.7, kg, [...] day, Stop date: 10/16/17 8:45:00 CDT Glucagon No 1 mg, Memoria 6-27 Route: IM, l 13:46: Drug form: [place] 00 PDR/INJ, PRN, Dosing Weight 78.7, kg, PRN Blood Glucose Results, Start date: 09/16/17 8:46:00 CDT, Duration: 30 day, Stop date: 10/16/17 8:45:00 CDT Lipitor No Notes: Memoria 6-27 (Same As: l 02:00: Lipitor) [place] Lipitor No Notes: [facility] 6-27 (Same As: l 02:00: Lipitor) [place] Lipitor No Notes: Memoria 6-27 (Same As: l 02:00: Lipitor) [place] Lipitor No Notes: [facility] 6-27 (Same As: l 02:00: Lipitor) [place] Lipitor No Notes: [facility] 6-27 (Same As: l 02:00: Lipitor) [place] Lipitor No Notes: [facility] 6-27 (Same As: l 02:00: Lipitor) [place] Lipitor No Notes: [facility] 6-27 (Same As: l 02:00: Lipitor) [place] Lipitor No Notes: [facility] 6-27 (Same As: l 02:00: Lipitor) [place] Lipitor No Notes: Memoria 6-27 (Same As: l 02:00: Lipitor) [place] Dextrose No 25 gm, 50 Jorge jakob 50% Syringe 6-26 mL, Route: l 19:33: IVP, Drug [place] 00 Form: INJ, Dosing Weight 78.7, kg, PRN, PRN Blood Glucose Results, Start date: 09/15/17 14:33:00 CDT, Duration: 30 day, Stop date: 10/15/17 14:32:00 CDT Glucagon 2018-0 No 1 mg, Memoria 6-26 Route: IM, l 19:33: Drug form: [place] 00 PDR/INJ, PRN, Dosing Weight 78.7, kg, PRN Blood Glucose Results, Start date: 09/15/17 14:33:00 CDT, Duration: 30 day, Stop date: 10/15/17 14:32:00 CDT Insulin 2018-0 No Notes: [facility] Lispro 6-26 (Same as: l 19:33: Humalog ) [place] 00 Roll in palms of hands gently; Do not shake `vigorousl y. "Single Patient Use Only " WASTE: F/P - Black; E - Municipal Trash Bin Stable for 28 days at room temperatur e. Expires in days from ____Date Dextrose 2018-0 No 25 gm, 50 Jorge jakob 50% Syringe 6-26 mL, Route: l 19:33: IVP, Drug [place] 00 Form: INJ, Dosing Weight 78.7, kg, PRN, PRN Blood Glucose Results, Start date: 09/15/17 14:33:00 CDT, Duration: 30 day, Stop date: 10/15/17 14:32:00 CDT Glucagon 2018-0 No 1 mg, Memoria 6-26 Route: IM, l 19:33: Drug form: [place] 00 PDR/INJ, PRN, Dosing Weight 78.7, kg, PRN Blood Glucose Results, Start date: 09/15/17 14:33:00 CDT, Duration: 30 day, Stop date: 10/15/17 14:32:00 CDT Insulin 2018-0 No Notes: [facility] Lispro 6-26 (Same as: l 19:33: Humalog ) [place] 00 Roll in palms of hands gently; Do not shake `vigorousl y. "Single Patient Use Only " WASTE: F/P - Black; E - Municipal Trash Bin Stable for 28 days at room temperatur e. Expires in days from ____Date Dextrose 2018-0 No 25 gm, 50 Jorge jakob 50% Syringe 6-26 mL, Route: l 19:33: IVP, Drug [place] 00 Form: INJ, Dosing Weight 78.7, kg, PRN, PRN Blood Glucose Results, Start date: 09/15/17 14:33:00 CDT, Duration: 30 day, Stop date: 10/15/17 14:32:00 CDT Glucagon 2018-0 No 1 mg, Memoria 6- Route: IM, l 19:33: Drug form: [place] 00 PDR/INJ, PRN, Dosing Weight 78.7, kg, PRN Blood Glucose Results, Start date: 09/15/17 14:33:00 CDT, Duration: 30 day, Stop date: 10/15/17 14:32:00 CDT Insulin 2018-0 No Notes: [facility] Lispro 6-26 (Same as: l 19:33: Humalog ) [place] 00 Roll in palms [...] - Route: IM, l 19:33: Drug form: [place] 00 PDR/INJ, PRN, Dosing Weight 78.7, kg, PRN Blood Glucose Results, Start date: 09/15/17 14:33:00 CDT, Duration: 30 day, Stop date: 10/15/17 14:32:00 CDT Insulin 2018-0 No Notes: [facility] Lispro 6-26 (Same as: l 19:33: Humalog ) [place] 00 Roll in palms of hands gently; Do not shake `vigorousl y. "Single Patient Use Only " WASTE: F/P - Black; E - Municipal Trash Bin Stable for 28 days at room temperatur e. Expires in days from ____Date Dextrose 2018-0 No 25 gm, 50 Jorge jakob 50% Syringe 6-26 mL, Route: l 19:33: IVP, Drug [place] 00 Form: INJ, Dosing Weight 78.7, kg, PRN, PRN Blood Glucose Results, Start date: 09/15/17 14:33:00 CDT, Duration: 30 day, Stop date: 10/15/17 14:32:00 CDT Glucagon 2018-0 No 1 mg, Memoria 6-26 Route: IM, l 19:33: Drug form: [place] 00 PDR/INJ, PRN, Dosing Weight 78.7, kg, PRN Blood Glucose Results, Start date: 09/15/17 14:33:00 CDT, Duration: 30 day, Stop date: 10/15/17 14:32:00 CDT Insulin 2018-0 No Notes: [facility] Lispro 6-26 (Same as: l 19:33: Humalog ) Roll [...] CDT Glucagon 2018-0 No 1 mg, Memoria 6-26 Route: IM, l 19:33: Drug form: [place] 00 PDR/INJ, PRN, Dosing Weight 78.7, kg, PRN Blood Glucose Results, Start date: 09/15/17 14:33:00 CDT, Duration: 30 day, Stop date: 10/15/17 14:32:00 CDT Insulin 2018-0 No Notes: [facility] Lispro 6-26 (Same as: l 19:33: Humalog ) [place] 00 Roll in palms of hands gently; Do not shake `vigorousl y. "Single Patient Use Only " WASTE: F/P - Black; E - Municipal Trash Bin Stable for 28 days at room temperatur e. Expires in days from ____Date Dextrose 2018-0 No 25 gm, 50 Jorge jakob 50% Syringe 6-26 mL, Route: l 19:33: IVP, Drug [place] 00 Form: INJ, Dosing Weight 78.7, kg, PRN, PRN Blood Glucose Results, Start date: 09/15/17 14:33:00 CDT, Duration: 30 day, Stop date: 10/15/17 14:32:00 CDT Glucagon 2018-0 No 1 mg, Memoria 09-15 Route: IM, l 19:33: Drug form: [place] 00 PDR/INJ, PRN, Dosing Weight 78.7, kg, PRN Blood Glucose Results, Start date: 09/15/17 14:33:00 CDT, Duration: 30 day, Stop date: 10/15/17 14:32:00 CDT Insulin 2018-0 No Notes: [facility] Lispro 09-15 (Same as: [...] 6-26 mL, Route: l 19:33: IVP, Drug [place] 00 Form: INJ, Dosing Weight 78.7, kg, PRN, PRN Blood Glucose Results, Start date: 09/15/17 14:33:00 CDT, Duration: 30 day, Stop date: 10/15/17 14:32:00 CDT Glucagon 2018-0 No 1 mg, Memoria 09-15 Route: IM, l 19:33: Drug form: [place] 00 PDR/INJ, PRN, Dosing Weight 78.7, kg, PRN Blood Glucose Results, Start date: 09/15/17 14:33:00 CDT, Duration: 30 day, Stop date: 10/15/17 14:32:00 CDT Insulin 2018-0 No Notes: [facility] Lispro 6-26 (Same as: l 19:33: Humalog ) [place] 00 Roll in palms of hands gently; Do not shake `vigorousl y. "Single Patient Use Only " WASTE: F/P - Black; E - Municipal Trash Bin Stable for 28 days at room temperatur e. Expires in days from ____Date Dextrose 2018-0 No 25 gm, 50 Jorge jakob 50% Syringe 6-26 mL, Route: l 19:33: IVP, Drug [place] 00 Form: INJ, Dosing Weight 78.7, kg, PRN, PRN Blood Glucose Results, Start date: 09/15/17 14:33:00 CDT, Duration: 30 day, Stop date: 10/15/17 14:32:00 CDT Glucagon 2018-0 No 1 mg, [facility] 6-26 Route: IM, l 19:33: Drug form: [place] 00 PDR/INJ, PRN, Dosing Weight 78.7, kg, PRN Blood Glucose Results, Start date: 09/15/17 14:33:00 CDT, Duration: 30 day, Stop date: 10/15/17 14:32:00 CDT Insulin 2018-0 No Notes: [facility] Lispro 6-26 (Same as: l 19:33: Humalog ) [place] 00 Roll in palms of hands gently; Do not shake `vigorousl y. "Single Patient Use Only " WASTE: F/P - Black; E - Municipal Trash Bin Stable for 28 days at room temperatur e. Expires in days from ____Date Keppra 2018-0 No 1,000 mg, Memori a 6-26 100 mL, l 18:00: Route: [place] 00 IVPB, Drug form: INJ, Q12H, Dosing Weight 78.7, kg, Start date: 09/15/17 13:00:00 CDT, Duration: 30 day, Stop date: 10/15/17 1:00:00 CDT Keppra 2018-0 No 1,000 mg, Memori a 6-26 100 mL, l 18:00: Route: [place] 00 IVPB, Drug form: INJ, Q12H, Dosing Weight 78.7, kg, Start date: 09/15/17 13:00:00 CDT, Duration: 30 day, Stop date: 10/15/17 1:00:00 CDT Keppra 2018-0 No 1,000 mg, Memori a 6-26 100 mL, l 18:00: Route: [place] 00 IVPB, Drug form: INJ, Q12H, Dosing Weight 78.7, kg, Start date: 09/15/17 13:00:00 CDT, Duration: 30 day, Stop date: 10/15/17 1:00:00 CDT Keppra 2018-0 No 1,000 mg, Mem[facility] a 6-26 100 mL, l 18:00: Route: [place] 00 IVPB, Drug form: INJ, Q12H, Dosing Weight 78.7, kg, Start date: 09/15/17 13:00:00 CDT, Duration: 30 day, Stop date: 10/15/17 1:00:00 CDT Keppra 2018-0 No 1,000 mg, [facility] a 6-26 100 mL, l 18:00: Route: [place] 00 IVPB, Drug form: INJ, Q12H, Dosing Weight 78.7, kg, Start date: 09/15/17 13:00:00 CDT, Duration: 30 day, Stop date: 10/15/17 1:00:00 CDT Keppra 2018-0 No 1,000 mg, Mem[facility] a 6-26 100 mL, l 18:00: Route: [place] 00 IVPB, Drug form: INJ, Q12H, Dosing Weight 78.7, kg, Start date: 09/15/17 13:00:00 CDT, Duration: 30 day, Stop date: 10/15/17 1:00:00 CDT Keppra 2018-0 No 1,000 mg, [facility] a 6-26 100 mL, l 18:00: Route: [place] 00 IVPB, Drug form: INJ, Q12H, Dosing Weight 78.7, kg, Start date: 09/15/17 13:00:00 CDT, Duration: 30 day, Stop date: 10/15/17 1:00:00 CDT Keppra 2017-0 No 1,000 mg, Mem[facility] a 6-26 100 mL, l 18:00: Route: [place] 00 IVPB, Drug form: INJ, Q12H, Dosing Weight 78.7, kg, Start date: 09/15/17 13:00:00 CDT, Duration: 30 day, Stop date: 10/15/17 1:00:00 CDT Keppra 2017- No 1,000 mg, [facility] a 6-26 100 mL, l 18:00: Route: [place] 00 IVPB, Drug form: INJ, Q12H, Dosing Weight 78.7, kg, Start date: 09/15/17 13:00:00 CDT, Duration: 30 day, Stop date: 10/15/17 1:00:00 CDT Acetaminoph No Notes: Jorge jakob en 325 MG / 09-15 (Same as: l Hydrocodone 10:05: [place] Diana nn Bitartrate 00 325/5) Do 5 MG Oral not exceed Tablet 4gm/day of [[place] acetaminop 5/325] hen. Acetaminoph No Notes: Jorge jakob en 325 MG / 09-15 (Same as: l Hydrocodone 10:05: [place] Diana nn Bitartrate 00 325/5) Do 5 MG Oral not exceed Tablet 4gm/day of [[place] acetaminop 5/325] hen. Acetaminoph No Notes: Jorge jakob en 325 MG / 09-15 (Same as: l Hydrocodone 10:05: [place] Diana nn Bitartrate 00 325/5) Do 5 MG Oral not exceed Tablet 4gm/day of [[place] acetaminop 5/325] hen. Acetaminoph No Notes: Jorge jakob en 325 MG / 09-15 (Same as: l Hydrocodone 10:05: [place] Diana nn Bitartrate 00 325/5) Do 5 MG Oral not exceed Tablet 4gm/day of [[place] acetaminop 5/325] hen. Acetaminoph No Notes: Jorge jakob en 325 MG / 09-15 (Same as: l Hydrocodone 10:05: [place] Diana nn Bitartrate 00 325/5) Do 5 MG Oral not exceed Tablet 4gm/day of [[place] acetaminop 5/325] hen. Acetaminoph No Notes: Jorge jakob en 325 MG / 09-15 (Same as: l Hydrocodone 10:05: [place] Diana nn Bitartrate 00 325/5) Do 5 MG Oral not exceed Tablet 4gm/day of [[place] acetaminop 5/325] hen. Acetaminoph No Notes: Jorge jakob en 325 MG / 09-15 (Same as: l Hydrocodone 10:05: [place] nn Bitartrate 00 325/5) Do 5 MG Oral not exceed Tablet 4gm/day of [[place] acetaminop 5/325] hen. Acetaminoph No Notes: Jorge jakob en 325 MG / 09-15 (Same as: l Hydrocodone 10:05: [place] Diana nn Bitartrate 00 325/5) Do 5 MG Oral not exceed Tablet 4gm/day of [[place] acetaminop 5/325] hen. Acetaminoph No Notes: Jorge jakob en 325 MG / 09-15 (Same as: l Hydrocodone 10:05: [place] Diana nn Bitartrate 00 325/5) Do 5 MG Oral not exceed Tablet 4gm/day of [[place] acetaminop 5/325] hen. Acetaminoph No Notes: Jorge jakob en 325 MG / 09-15 (Same as: l Hydrocodone 06:59: [place] Diana nn Bitartrate 00 325/5) Do 5 MG Oral not exceed Tablet 4gm/day of [[place] acetaminop 5/325] hen. Acetaminoph No Notes: Jorge jakob en 325 MG / 09-15 (Same as: l Hydrocodone 06:59: [place] nn Bitartrate 00 325/5) Do 5 MG Oral not exceed Tablet 4gm/day of [[place] acetaminop 5/325] hen. Acetaminoph No Notes: Jorge jakob en 325 MG / 09-15 (Same as: l Hydrocodone 06:59: [place] Diana nn Bitartrate 00 325/5) Do 5 MG Oral not exceed Tablet 4gm/day of [[place] acetaminop 5/325] hen. Acetaminoph No Notes: Jorge jakob en 325 MG / 09-15 (Same as: l Hydrocodone 06:59: [place] Diana nn Bitartrate 00 325/5) Do 5 MG Oral not exceed Tablet 4gm/day of [[place] acetaminop 5/325] hen. Acetaminoph No Notes: Jorge jakob en 325 MG / 09-15 (Same as: l Hydrocodone 06:59: [place] Diana nn Bitartrate 00 325/5) Do 5 MG Oral not exceed Tablet 4gm/day of [[place] acetaminop 5/325] hen. Acetaminoph No Notes: Jorge jakob en 325 MG / 09-15 (Same as: l Hydrocodone 06:59: [place] Diana nn Bitartrate 00 325/5) Do 5 MG Oral not exceed Tablet 4gm/day of [[place] acetaminop 5/325] hen. Acetaminoph No Notes: Jorge jakob en 325 MG / 09-15 (Same as: l Hydrocodone 06:59: [place] nn Bitartrate 00 325/5) Do 5 MG Oral not exceed Tablet 4gm/day of [[place] acetaminop 5/325] hen. Acetaminoph No Notes: Jorge jakob en 325 MG / 09-15 (Same as: l Hydrocodone 06:59: [place] nn Bitartrate 00 325/5) Do 5 MG Oral not exceed Tablet 4gm/day of [[place] acetaminop 5/325] hen. Acetaminoph No Notes: Jorge jakob en 325 MG / 09-15 (Same as: l Hydrocodone 06:59: [place] Diana nn Bitartrate 00 325/5) Do 5 MG Oral not exceed Tablet 4gm/day of [[place] acetaminop 5/325] hen. levETIRAcet No 1,000 mg, M emoria am 09-15 100 mL, l 05:30: Route: Chris 00 IVPB, Drug form: INJ, Q15Min, Start date: 09/15/17 0:30:00 CDT, Duration: 2 doses or times, Stop date: 09/15/17 0:45:00 CDT levETIRAcet 2018-0 No 1,000 mg, M emoria am 6- 100 mL, l 05:30: Route: Chris IVPB, Drug form: INJ, Q15Min, Start date: 09/15/17 0:30:00 CDT, Duration: 2 doses or times, Stop date: 09/15/17 0:45:00 CDT levETIRAcet 2018-0 No 1,000 mg, M emoria am 6- 100 mL, l 05:30: Route: Chris IVPB, Drug form: INJ, Q15Min, Start date: 09/15/17 0:30:00 CDT, Duration: 2 doses or times, Stop date: 09/15/17 0:45:00 CDT levETIRAcet 2018-0 No 1,000 mg, M emoria am 6- 100 mL, l 05:30: Route: [facility] 00 IVPB, Drug form: INJ, Q15Min, Start date: 09/15/17 0:30:00 CDT, Duration: 2 doses or times, Stop date: 09/15/17 0:45:00 CDT levETIRAcet 2018-0 No 1,000 mg, M emoria am 6- 100 mL, l 05:30: Route: IVPB, Drug form: INJ, Q15Min, Start date: 09/15/17 0:30:00 CDT, Duration: 2 doses or times, Stop date: 09/15/17 0:45:00 CDT levETIRAcet 2018-0 No 1,000 mg, M emoria am 6- 100 mL, l 05:30: Route: [place] 00 IVPB, Drug form: INJ, Q15Min, Start date: 09/15/17 0:30:00 CDT, Duration: 2 doses or times, Stop date: 09/15/17 0:45:00 CDT levETIRAcet 2018-0 No 1,000 mg, M emoria am 6- 100 mL, l 05:30: Route: [place] 00 IVPB, Drug form: INJ, Q15Min, Start date: 09/15/17 0:30:00 CDT, Duration: 2 doses or times, Stop date: 09/15/17 0:45:00 CDT levETIRAcet No 1,000 mg, M emoria am 09-15 100 mL, l 05:30: Route: [place] 00 IVPB, Drug form: INJ, Q15Min, Start date: 09/15/17 0:30:00 CDT, Duration: 2 doses or times, Stop date: 09/15/17 0:45:00 CDT levETIRAcet No 1,000 mg, M emoria am 626 100 mL, l 05:30: Route: [place] 00 IVPB, Drug form: INJ, Q15Min, Start date: 09/15/17 0:30:00 CDT, Duration: 2 doses or times, Stop date: 09/15/17 0:45:00 CDT Saline No Notes: [facility] Flush 0.9% - (Same as: l 05:15: BD Chris 00 Posiflush) Acetaminoph No Notes: Do M emoria en 09-15 not exceed l 05:15: 4 gm/day. Chris 00 (Same as: Tylenol) Ondansetron No Notes: Jorge jakob 09-15 (Same as: l 05:15: Zofran) [place] 00 MEDICATION WASTE Product Size: 4 mg Product Wasted: ___ mg Sodium No 1,000 mL, Memori a Chloride 09-15 Rate: 75 l 0.9% IV 05:15: ml/hr, Chris 1,000 mL 00 Infuse over: 13.3 hr, Route: IV, Dosing Weight 78.7 kg, Total Volume: 1,000, Start date: 09/15/17 0:15:00 CDT, Duration: 30 day, Stop date: 10/15/17 0:14:00 CDT, 1.91, m2 Saline No Notes: [facility] Flush 0.9% -26 (Same as: l 05:15: BD [place] 00 Posiflush) Acetaminoph No Notes: Do M emoria en 09-15 not exceed l 05:15: 4 gm/day. Chris 00 (Same as: Tylenol) Ondansetron No Notes: Jorge jakob 6-26 (Same as: l 05:15: Zofran) [place] 00 MEDICATION WASTE Product Size: 4 mg Product Wasted: ___ mg Sodium 2018- No 1,000 mL, Memori a Chloride 6-26 Rate: 75 l 0.9% IV 05:15: ml/hr, Chris 1,000 mL 00 Infuse over: 13.3 hr, Route: IV, Dosing Weight 78.7 kg, Total Volume: 1,000, Start date: 09/15/17 0:15:00 CDT, Duration: 30 day, Stop date: 10/15/17 0:14:00 CDT, 1.91, m2 Saline No Notes: [facility] Flush 0.9% 6-26 (Same as: l 05:15: BD Chris 00 Posiflush) Acetaminoph No Notes: Do M emoria en 09-15 not exceed l 05:15: 4 gm/day. [place] 00 (Same as: Tylenol) Ondansetron No Notes: Jorge jakob 6-26 (Same as: l 05:15: Zofran) [facility] 00 MEDICATION WASTE Product Size: 4 mg Product Wasted: ___ mg Sodium No 1,000 mL, Memori a Chloride -26 Rate: 75 l 0.9% IV 05:15: ml/hr, [place] 1,000 mL 00 Infuse over: 13.3 hr, Route: IV, Dosing Weight 78.7 kg, Total Volume: 1,000, Start date: 09/15/17 0:15:00 CDT, Duration: 30 day, Stop date: 10/15/17 0:14:00 CDT, 1.91, m2 Saline No Notes: [facility] Flush 0.9% 6-26 (Same as: l 05:15: BD [place] 00 Posiflush) Acetaminoph No Notes: Do M emoria en - not exceed l 05:15: 4 gm/day. [place] 00 (Same as: Tylenol) Ondansetron No Notes: Jogre jakob 6-26 (Same as: l 05:15: Zofran) [place] 00 MEDICATION WASTE Product Size: 4 mg Product Wasted: ___ mg Sodium 2018- No 1,000 mL, Memori a Chloride 6-26 Rate: 75 l 0.9% IV 05:15: ml/hr, Chris 1,000 mL 00 Infuse over: 13.3 hr, Route: IV, Dosing Weight 78.7 kg, Total Volume: 1,000, Start date: 09/15/17 0:15:00 CDT, Duration: 30 day, Stop date: 10/15/17 0:14:00 CDT, 1.91, m2 Saline No Notes: [facility] Flush 0.9% 6-26 (Same as: l 05:15: BD [place] 00 Posiflush) Acetaminoph No Notes: Do M emoria en - not exceed l 05:15: 4 gm/day. [place] (Same as: Tylenol) Ondansetron No Notes: Jorge jakob 6-26 (Same as: l 05:15: Zofran) [place] 00 MEDICATION WASTE Product Size: 4 mg Product Wasted: ___ mg Sodium 2018- No 1,000 mL, Memori a Chloride 6-26 Rate: 75 l 0.9% IV 05:15: ml/hr, [place] 1,000 mL 00 Infuse over: 13.3 hr, Route: IV, Dosing Weight 78.7 kg, Total Volume: 1,000, Start date: 09/15/17 0:15:00 CDT, Duration: 30 day, Stop date: 10/15/17 0:14:00 CDT, 1.91, m2 Saline No Notes: [facility] Flush 0.9% 6-26 (Same as: l 05:15: BD [place] 00 Posiflush) Acetaminoph No Notes: Do M emoria en 6-26 not exceed l 05:15: 4 gm/day. [place] 00 (Same as: Tylenol) Ondansetron No Notes: Jorge jakob 6-26 (Same as: l 05:15: Zofran) [place] 00 MEDICATION WASTE Product Size: 4 mg Product Wasted: ___ mg Sodium 2018- No 1,000 mL, Memori a Chloride 6-26 Rate: 75 l 0.9% IV 05:15: ml/hr, [place] 1,000 mL 00 Infuse over: 13.3 hr, Route: IV, Dosing Weight 78.7 kg, Total Volume: 1,000, Start date: 09/15/17 0:15:00 CDT, Duration: 30 day, Stop date: 10/15/17 0:14:00 CDT, 1.91, m2 Saline No Notes: [facility] Flush 0.9% 6-26 (Same as: l 05:15: BD [facility] 00 Posiflush) Acetaminoph No Notes: Do M emoria en 09-15 not exceed l 05:15: 4 gm/day. [place] 00 (Same as: Tylenol) Ondansetron No Notes: Jorge jakob 6-26 (Same as: l 05:15: Zofran) [place] 00 MEDICATION WASTE Product Size: 4 mg Product Wasted: ___ mg Sodium No 1,000 mL, Memori a Chloride 6-26 Rate: 75 l 0.9% IV 05:15: ml/hr, Chris 1,000 mL 00 Infuse over: 13.3 hr, Route: IV, Dosing Weight 78.7 kg, Total Volume: 1,000, Start date: 09/15/17 0:15:00 CDT, Duration: 30 day, Stop date: 10/15/17 0:14:00 CDT, 1.91, m2 Saline No Notes: [facility] Flush 0.9% 6-26 (Same as: l 05:15: BD [place] 00 Posiflush) Acetaminoph No Notes: Do M emoria en - not exceed l 05:15: 4 gm/day. [place] 00 (Same as: Tylenol) Ondansetron No Notes: Jorge jakob 6-26 (Same as: l 05:15: Zofran) [place] 00 MEDICATION WASTE Product Size: 4 mg Product Wasted: ___ mg Sodium No 1,000 mL, Memori a Chloride 6-26 Rate: 75 l 0.9% IV 05:15: ml/hr, [place] 1,000 mL 00 Infuse over: 13.3 hr, Route: IV, Dosing Weight 78.7 kg, Total Volume: 1,000, Start date: 09/15/17 0:15:00 CDT, Duration: 30 day, Stop date: 10/15/17 0:14:00 CDT, 1.91, m2 Saline No Notes: [facility] Flush 0.9% 09-15 (Same as: l 05:15: BD [place] Posiflush) Acetaminoph No Notes: Do M emoria en 09-15 not exceed l 05:15: 4 gm/day. [place] 00 (Same as: Tylenol) Ondansetron No Notes: Jorge jakob 09-15 (Same as: l 05:15: Zofran) MEDICATION WASTE Product Size: 4 mg Product Wasted: ___ mg Sodium No 1,000 mL, Mem[facility] a Chloride - Rate: 75 l 0.9% IV 05:15: ml/hr, Chris 1,000 mL 00 Infuse over: 13.3 hr, Route: IV, Dosing Weight 78.7 kg, Total Volume: 1,000, Start date: 09/15/17 0:15:00 CDT, Duration: 30 day, Stop date: 10/15/17 0:14:00 CDT, 1.91, m2 Keppra No 2,000 mg, Memori a 6-26 Route: l 05:11: IVPB, [place] 00 ONCE, Dosing Weight 78.7, kg, Start date: 09/15/17 0:11:00 CDT, Stop date: 09/15/17 0:11:00 CDT Keppra 0 No 2,000 mg, Memori a 6-26 Route: l 05:11: IVPB, [place] 00 ONCE, Dosing Weight 78.7, kg, Start date: 09/15/17 0:11:00 CDT, Stop date: 09/15/17 0:11:00 CDT Keppra No 2,000 mg, Memori a 6-26 Route: l 05:11: IVPB, [place] 00 ONCE, Dosing Weight 78.7, kg, Start date: 09/15/17 0:11:00 CDT, Stop date: 09/15/17 0:11:00 CDT Keppra 2018-0 No 2,000 mg, Memori a 6-26 Route: l 05:11: IVPB, [place] 00 ONCE, Dosing Weight 78.7, kg, Start date: 09/15/17 0:11:00 CDT, Stop date: 09/15/17 0:11:00 CDT Keppra 2018-0 No 2,000 mg, Memori a 6-26 Route: l 05:11: IVPB, [place] 00 ONCE, Dosing Weight 78.7, kg, Start date: 09/15/17 0:11:00 CDT, Stop date: 09/15/17 0:11:00 CDT Keppra 2018-0 No 2,000 mg, Memori a 6-26 Route: l 05:11: IVPB, [place] 00 ONCE, Dosing Weight 78.7, kg, Start date: 09/15/17 0:11:00 CDT, Stop date: 09/15/17 0:11:00 CDT Keppra 2018-0 No 2,000 mg, Memori a 6-26 Route: l 05:11: IVPB, [place] 00 ONCE, Dosing Weight 78.7, kg, Start date: 09/15/17 0:11:00 CDT, Stop date: 09/15/17 0:11:00 CDT Keppra 2018-0 No 2,000 mg, Memori a 6-26 Route: l 05:11: IVPB, [place] 00 ONCE, Dosing Weight 78.7, kg, Start date: 09/15/17 0:11:00 CDT, Stop date: 09/15/17 0:11:00 CDT Keppra 2018-0 No 2,000 mg, Memori a 6-26 Route: l 05:11: IVPB, [place] 00 ONCE, Dosing Weight 78.7, kg, Start date: 09/15/17 0:11:00 CDT, Stop date: 09/15/17 0:11:00 CDT Folic Acid 2018-0 Yes 1 mg = [...] 00 30 tab, 0 Refill(s) Aspirin 81 2018- Yes 81 mg = 1 Me moria MG Enteric 6-26 tab, PO, l Coated 05:02: Daily, # Chris Tablet 00 90 tab, 3 Refill(s) Protonix 2017-0 Yes 40 mg, PO, Mem oria 6- Daily, # l 05:02: 30 tab, 0 Chris 00 Refill(s) Hydrochloro 2017-0 Yes 25 mg, PO, Memoria thiazide 6-26 Daily, 0 l 05:02: Refill(s) [place] 00 Linagliptin 2017-0 Yes 1 tab, PO, Memoria 2.5 MG / 6-26 BID-Meals, l Metformin 05:02: # 180 tab, He jaimeann hydrochlori 00 1 de 500 MG Refill(s) Oral Tablet [Jentadueto 2.5/500] losartan 2017- Yes 100 mg = 1 Mem oria 100 mg oral 6-26 tab, PO, l tablet 05:02: Daily, # [place] 00 30 tab, 0 Refill(s) Sertraline Yes 200 mg = 2 M emoria 100 MG Oral 6-26 tab, PO, l Tablet 05:02: Daily, # Chris [Zoloft] 00 30 tab, 1 Refill(s) amLODIPine 2018- Yes 5 mg = 1 Mem oria 5 mg oral 6-26 tab, PO, l tablet 05:02: Daily, # [place] 00 30 tab, 0 Refill(s) Metoprolol 2017- Yes 50 mg = 1 Me moria Tartrate 50 6-26 tab, PO, l MG Oral 05:02: Daily, # Aj n Tablet 00 90 tab, 3 [Lopressor] Refill(s) atorvastati 2017- Yes 20 mg = 1 M emoria n 20 MG 6-26 tab, PO, l Oral Tablet 05:02: Bedtime, # Chris [Lipitor] 00 30 tab, 0 Refill(s) Hydroxyzine 2017-0 Yes 25 mg = 1 M emoria Hydrochlori 6-26 tab, PO, l de 25 MG 05:02: TID, # 90 Herm shade Oral Tablet 00 tab, 0 Refill(s) Folic Acid Yes 1 mg = 1 [...] 00 30 tab, 0 Refill(s) Aspirin 81 2017- Yes 81 mg = 1 Me moria MG Enteric 6-26 tab, PO, l Coated 05:02: Daily, # Chris Tablet 00 90 tab, 3 Refill(s) Protonix 2017-0 Yes 40 mg, PO, Mem oria 6-26 Daily, # l 05:02: 30 tab, 0 Chris 00 Refill(s) Hydrochloro 0 Yes 25 mg, PO, Mem[facility] thiazide 6-26 Daily, 0 l 05:02: Refill(s) [facility] 00 Linagliptin 2017-0 Yes 1 tab, PO, [facility] 2.5 MG / 6-26 BID-Meals, l Metformin 05:02: # 180 tab, He rmann hydrochlori 00 1 de 500 MG Refill(s) Oral Tablet [Jentadueto 2.5/500] losartan 2017-0 Yes 100 mg = 1 Mem o[facility] 100 mg oral 6-26 tab, PO, l tablet 05:02: Daily, # Chris 00 30 tab, 0 Refill(s) Sertraline Yes 200 mg = 2 M emoria 100 MG Oral 6-26 tab, PO, l Tablet 05:02: Daily, [place] [Zoloft] 00 30 tab, 1 Refill(s) amLODIPine 2017- Yes 5 mg = 1 Mem oria 5 mg oral 6-26 tab, PO, l tablet 05:02: Daily, # [place] 00 30 tab, 0 Refill(s) Metoprolol 2018-0 Yes 50 mg = 1 Me moria Tartrate 50 6-26 tab, PO, l MG Oral 05:02: Daily, # Aj n Tablet 00 90 tab, 3 [Lopressor] Refill(s) atorvastati 2018-0 Yes 20 mg = 1 M emoria n 20 MG 6-26 tab, PO, l Oral Tablet 05:02: Bedtime, # [facility] [Lipitor] 00 30 tab, 0 Refill(s) Hydroxyzine 2017-0 Yes 25 mg = 1 M emoria Hydrochlori 6-26 tab, PO, l de 25 MG 05:02: TID, # 90 Herm shade Oral Tablet 00 tab, 0 Refill(s) Folic Acid 2017- Yes 1 mg = 1 Mem o[facility] 1 MG Oral 6-26 tab, PO, l Tablet 05:02: Daily, # [place] 00 30 tab, 0 Refill(s) baclofen 20 2017-0 Yes 20 mg = 1 M emoria mg oral 6-26 tab, PO, l tablet 05:02: BID, # 90 Aj n 00 tab, 0 Refill(s) clopidogrel 2017-0 Yes 75 mg = 1 M emoria [...] 30 tab, 0 Chris 00 Refill(s) Hydrochloro 2018-0 Yes 25 mg, PO, [facility] thiazide 6-26 Daily, 0 l 05:02: Refill(s) [place] 00 Linagliptin 2018-0 Yes 1 tab, PO, [facility] 2.5 MG / 6-26 BID-Meals, l Metformin 05:02: # 180 tab, He jaimeann hydrochlori 00 1 de 500 MG Refill(s) Oral Tablet [Jentadueto 2.5/500] losartan 2018- Yes 100 mg = 1 Mem o[facility] 100 mg oral 6-26 tab, PO, l tablet 05:02: Daily, # [facility] 00 30 tab, 0 Refill(s) Sertraline 2017-0 Yes 200 mg = 2 M emoria 100 MG Oral 6-26 tab, PO, l Tablet 05:02: Daily, # [place] [Zoloft] 00 30 tab, 1 Refill(s) amLODIPine 2018- Yes 5 mg = 1 Mem o[facility] 5 mg oral 6-26 tab, PO, l tablet 05:02: Daily, # [facility] 00 30 tab, 0 Refill(s) Metoprolol Yes 50 mg = 1 Me moria Tartrate 50 6-26 tab, PO, l MG Oral 05:02: Daily, # Aj n Tablet 00 90 tab, 3 [Lopressor] Refill(s) atorvastati Yes 20 mg = 1 M emoria n 20 MG 6-26 tab, PO, l Oral Tablet 05:02: Bedtime, # [facility] [Lipitor] 00 30 tab, 0 Refill(s) Hydroxyzine Yes 25 mg = 1 M emoria Hydrochlori 6-26 tab, PO, l de 25 MG 05:02: TID, # 90 [place] shade Oral Tablet 00 tab, 0 Refill(s) Folic Acid Yes 1 mg = 1 Mem o[facility] 1 MG Oral 6-26 tab, PO, l Tablet 05:02: Daily, # [facility] 00 30 tab, 0 Refill(s) baclofen 20 Yes 20 mg = 1 M emoria mg oral 6-26 tab, PO, l tablet 05:02: BID, # 90 Aj n 00 tab, 0 Refill(s) clopidogrel Yes 75 mg = 1 M emoria 75 MG Oral 6-26 tab, PO, l Tablet 05:02: Daily, Silva [place] [Plavix] 00 30 tab, 0 Refill(s) Aspirin 81 2018- Yes 81 mg = 1 Me moria MG Enteric 6-26 tab, PO, l Coated 05:02: Daily, # Chris Tablet 00 90 tab, 3 Refill(s) Protonix Yes 40 mg, PO, Mem o[facility] 6- Daily, # l 05:02: 30 tab, 0 Chris 00 Refill(s) Hydrochloro 2017-0 Yes 25 mg, PO, Mem[facility] thiazide - Daily, 0 l 05:02: Refill(s) [facility] 00 Linagliptin 2018-0 Yes 1 tab, PO, [facility] 2.5 MG / 6-26 BID-Meals, l Metformin 05:02: # 180 tab, He rmann hydrochlori 00 1 de 500 MG Refill(s) Oral Tablet [Jentadueto 2.5/500] losartan Yes 100 mg = 1 Mem o[facility] 100 mg oral 6-26 tab, PO, l tablet 05:02: Daily, # [facility] 00 30 tab, 0 Refill(s) Sertraline Yes 200 mg = 2 M emoria 100 MG Oral 6-26 tab, PO, l Tablet 05:02: Daily, # [place] [Zoloft] 00 30 tab, 1 Refill(s) amLODIPine Yes 5 mg = 1 Mem o[facility] 5 mg oral 6-26 tab, PO, l tablet 05:02: Daily, # [place] 00 30 tab, 0 Refill(s) Metoprolol Yes 50 mg = 1 Me moria Tartrate 50 6-26 tab, PO, l MG Oral 05:02: Daily, # Aj n Tablet 00 90 tab, 3 [Lopressor] Refill(s) atorvastati Yes 20 mg = 1 M emoria n 20 MG 6-26 tab, PO, l Oral Tablet 05:02: Bedtime, # [facility] [Lipitor] 00 30 tab, 0 Refill(s) Hydroxyzine Yes 25 mg = 1 M emoria Hydrochlori 6-26 tab, PO, l de 25 MG 05:02: TID, # 90 Herm shade Oral Tablet 00 tab, 0 Refill(s) Folic Acid Yes 1 mg = 1 Mem oria 1 MG Oral 6-26 tab, PO, l Tablet 05:02: Daily, # [place] 00 30 tab, 0 Refill(s) baclofen 20 Yes 20 mg = 1 M emoria mg oral 6-26 tab, PO, l tablet 05:02: BID, # 90 Aj n 00 tab, 0 Refill(s) clopidogrel 2018 Yes 75 mg = 1 M emoria 75 MG Oral 6-26 tab, PO, l Tablet 05:02: Daily, # [facility] [Plavix] 00 30 tab, 0 Refill(s) Aspirin 81 2018- Yes 81 mg = 1 Me moria MG Enteric 6-26 tab, PO, l Coated 05:02: Daily, # Chris Tablet 00 90 tab, 3 Refill(s) Protonix 0 Yes 40 mg, PO, Mem oria 6- Daily, # l 05:02: 30 tab, 0 [place] 00 Refill(s) Hydrochloro 0 Yes 25 mg, PO, Memoria thiazide 6- Daily, 0 l 05:02: Refill(s) [place] 00 Linagliptin 0 Yes 1 tab, PO, Memoria 2.5 MG / 6-26 BID-Meals, l Metformin 05:02: # 180 tab, He rafael hydrochlori 00 1 de 500 MG Refill(s) Oral Tablet [Jentadueto 2.5/500] losartan Yes 100 mg = 1 Mem o[facility] 100 mg oral 6-26 tab, PO, l tablet 05:02: Daily, [place] 00 30 tab, 0 Refill(s) Sertraline Yes 200 mg = 2 M emoria 100 MG Oral 6-26 tab, PO, l Tablet 05:02: Daily, [place] [Zoloft] 00 30 tab, 1 Refill(s) amLODIPine Yes 5 mg = 1 Mem o[facility] 5 mg oral 6-26 tab, PO, l tablet 05:02: Daily, [place] 00 30 tab, 0 Refill(s) Metoprolol Yes 50 mg = 1 Me moria Tartrate 50 6-26 tab, PO, l MG Oral 05:02: Daily, # Aj n Tablet 00 90 tab, 3 [Lopressor] Refill(s) atorvastati Yes 20 mg = 1 M emoria n 20 MG 6-26 tab, PO, l Oral Tablet 05:02: Bedtime, [place] [Lipitor] 00 30 tab, 0 Refill(s) Hydroxyzine 0 Yes 25 mg = 1 M emoria Hydrochlori 6-26 tab, PO, l de 25 MG 05:02: TID, # 90 Herm shade Oral Tablet 00 tab, 0 Refill(s) Folic Acid 2017-0 Yes 1 mg = 1 Mem oria 1 MG Oral 6-26 tab, PO, l Tablet 05:02: Daily, # [place] 00 30 tab, 0 Refill(s) baclofen 20 2018-0 Yes 20 mg = 1 M emoria mg oral 6-26 tab, PO, l tablet 05:02: BID, # 90 Aj n 00 tab, 0 Refill(s) clopidogrel 2018-0 Yes 75 mg = 1 M emoria 75 MG Oral 6-26 tab, PO, l Tablet 05:02: Daily, # Chris [Plavix] 00 30 tab, 0 Refill(s) Aspirin 81 2017-0 Yes 81 mg = 1 Me moria MG Enteric 6-26 tab, PO, l Coated 05:02: Daily, # Chris Tablet 00 90 tab, 3 Refill(s) Protonix 2017-0 Yes 40 mg, PO, Mem oria 6-26 Daily, # l 05:02: 30 tab, 0 [place] 00 Refill(s) Hydrochloro 2017-0 Yes 25 mg, PO, Memoria thiazide 6-26 Daily, 0 l 05:02: Refill(s) [place] 00 Linagliptin 2017-0 Yes 1 tab, PO, Memoria 2.5 MG / 6-26 BID-Meals, l Metformin 05:02: # 180 tab, He jaimeann hydrochlori 00 1 de 500 MG Refill(s) Oral Tablet [Jentadueto 2.5/500] losartan 2018-0 Yes 100 mg = 1 Mem oria 100 mg oral 6-26 tab, PO, l tablet 05:02: Daily, # [place] 00 30 tab, 0 Refill(s) Sertraline 2017-0 Yes 200 mg = 2 M emoria 100 MG Oral 6-26 tab, PO, l Tablet 05:02: Daily, # Chris [Zoloft] 00 30 tab, 1 Refill(s) amLODIPine 2018-0 Yes 5 mg = 1 Mem oria 5 mg oral 6-26 tab, PO, l tablet 05:02: Daily, # [place] 00 30 tab, 0 Refill(s) Metoprolol 2017-0 Yes 50 mg = 1 Me moria Tartrate 50 6-26 tab, PO, l MG Oral 05:02: Daily, # Aj n Tablet 00 90 tab, 3 [Lopressor] Refill(s) atorvastati 2017- Yes 20 mg = 1 M emoria n 20 MG 6-26 tab, PO, l Oral Tablet 05:02: Bedtime, # Chris [Lipitor] 00 30 tab, 0 Refill(s) Hydroxyzine Yes 25 mg = 1 M emoria Hydrochlori 6-26 tab, PO, l de 25 MG 05:02: TID, # 90 Herm shade Oral Tablet 00 tab, 0 Refill(s) Folic Acid Yes 1 mg = 1 Mem oria 1 MG Oral 6-26 tab, PO, l Tablet 05:02: Daily, # Chris 00 30 tab, 0 Refill(s) baclofen 20 Yes 20 mg = 1 M emoria mg oral 6-26 tab, PO, l tablet 05:02: BID, # 90 Aj n 00 tab, 0 Refill(s) clopidogrel Yes 75 mg = 1 M emoria 75 MG Oral 6-26 tab, PO, l Tablet 05:02: Daily, Silva Perez [Plavix] 00 30 tab, 0 Refill(s) Aspirin 81 2017- Yes 81 mg = 1 Me moria MG Enteric 6-26 tab, PO, l Coated 05:02: Daily, # Chris Tablet 00 90 tab, 3 Refill(s) Protonix 0 Yes 40 mg, PO, Mem oria 6-26 Daily, # l 05:02: 30 tab, 0 Chris 00 Refill(s) Hydrochloro 2017-0 Yes 25 mg, PO, Memoria thiazide 6-26 Daily, 0 l 05:02: Refill(s) Chris 00 Linagliptin 2017-0 Yes 1 tab, PO, Memoria 2.5 MG / 6-26 BID-Meals, l Metformin 05:02: # 180 tab, He jaimeann hydrochlori 00 1 de 500 MG Refill(s) Oral Tablet [Jentadueto 2.5/500] losartan Yes 100 mg = 1 Mem oria 100 mg oral 6-26 tab, PO, l tablet 05:02: Daily, # Chris 00 30 tab, 0 Refill(s) Sertraline 2018-0 Yes 200 mg = 2 M emoria 100 MG Oral 6-26 tab, PO, l Tablet 05:02: Daily, # Chris [Zoloft] 00 30 tab, 1 Refill(s) amLODIPine 2018-0 Yes 5 mg = 1 Mem oria 5 mg oral 6-26 tab, PO, l tablet 05:02: Daily, # Chris 00 30 tab, 0 Refill(s) Metoprolol 2018-0 Yes 50 mg = 1 Me moria Tartrate 50 6-26 tab, PO, l MG Oral 05:02: Daily, # Aj n Tablet 00 90 tab, 3 [Lopressor] Refill(s) atorvastati 2018-0 Yes 20 mg = 1 M emoria n 20 MG 6-26 tab, PO, l Oral Tablet 05:02: Bedtime, # Chris [Lipitor] 00 30 tab, 0 Refill(s) Hydroxyzine [...] 30 tab, 0 Chris 00 Refill(s) Hydrochloro 2018-0 Yes 25 mg, PO, Memoria thiazide 6-26 Daily, 0 l 05:02: Refill(s) [place] 00 Linagliptin 2018-0 Yes 1 tab, PO, Memoria 2.5 MG / 6-26 BID-Meals, l Metformin 05:02: # 180 tab, He rmann hydrochlori 00 1 de 500 MG Refill(s) Oral Tablet [Jentadueto 2.5/500] losartan Yes 100 mg = 1 Mem oria 100 mg oral 6-26 tab, PO, l tablet 05:02: Daily, # Chris 00 30 tab, 0 Refill(s) Sertraline Yes 200 mg = 2 M emoria 100 MG Oral 6-26 tab, PO, l Tablet 05:02: Daily, Silva Perez [Zoloft] 00 30 tab, 1 Refill(s) amLODIPine Yes 5 mg = 1 Mem oria 5 mg oral 6-26 tab, PO, l tablet 05:02: Daily, # Chris 00 30 tab, 0 Refill(s) Metoprolol Yes 50 mg = 1 Me moria [...] de 25 MG 05:02: TID, # 90 Corina shade Oral Tablet 00 tab, 0 Refill(s) Folic Acid Yes 1 mg = 1 Mem oria 1 MG Oral 6-26 tab, PO, l Tablet 05:02: Daily, # Chris 00 30 tab, 0 Refill(s) baclofen 20 Yes 20 mg = 1 M emoria mg oral 6-26 tab, PO, l tablet 05:02: BID, # 90 Aj n 00 tab, 0 Refill(s) clopidogrel Yes 75 mg = 1 M emoria 75 MG Oral 6-26 tab, PO, l Tablet 05:02: Daily, Silva Perez [Plavix] 00 30 tab, 0 Refill(s) Aspirin 81 Yes 81 mg = 1 Me moria MG Enteric 6-26 tab, PO, l Coated 05:02: Daily, # Chris Tablet 00 90 tab, 3 Refill(s) Protonix 2018- Yes 40 mg, PO, Mem oria 6-26 Daily, # l 05:02: 30 tab, 0 [place] 00 Refill(s) Hydrochloro 2018- Yes 25 mg, PO, Memoria thiazide 6-26 Daily, 0 l 05:02: Refill(s) Chris 00 Linagliptin 2017- Yes 1 tab, PO, Memoria 2.5 MG / 6-26 BID-Meals, l Metformin 05:02: # 180 tab, He rmann hydrochlori 00 1 de 500 MG Refill(s) Oral Tablet [Jentadueto 2.5/500] losartan Yes 100 mg = 1 Mem oria 100 mg oral 6-26 tab, PO, l tablet 05:02: Daily, # Chris 00 30 tab, 0 Refill(s) Sertraline Yes 200 mg = 2 M emoria 100 MG Oral 6-26 tab, PO, l Tablet 05:02: Daily, # Chris [Zoloft] 00 30 tab, 1 Refill(s) amLODIPine Yes 5 mg = 1 Mem oria 5 mg oral 6-26 tab, PO, l tablet 05:02: Daily, # [place] 00 30 tab, 0 Refill(s) Metoprolol Yes 50 mg = 1 Me moria Tartrate 50 6-26 tab, PO, l MG Oral 05:02: Daily, # Aj n Tablet 00 90 tab, 3 [Lopressor] Refill(s) atorvastati Yes 20 mg = 1 M emoria n 20 MG 6-26 tab, PO, l Oral Tablet 05:02: Bedtime, # [place] [Lipitor] 00 30 tab, 0 Refill(s) Hydroxyzine Yes 25 mg = 1 M emoria Hydrochlori 6-26 tab, PO, l de 25 MG 05:02: TID, # 90 Herm shade Oral Tablet 00 tab, 0 Refill(s) Vital Signs Vital Name Observation Time Observation Value Comments Source Systolic blood 2022-07-29 15:23:00 139 mm[Hg] [facility] Diastolic blood 2022-07-29 15:23:00 85 mm[Hg] Unive rsity of pressure [facility] Heart rate 2022-07-29 15:23:00 77 /min [facility] Body weight 2022-07-29 15:17:00 75.66 kg [facility] BMI 2022-07-29 15:17:00 28.63 kg/m2 [facility] Oxygen saturation in 2022-07-29 15:17:00 97 /min University of Arterial blood by [facility] Pulse oximetry Branch Systolic blood 2022-06-02 15:15:00 151 mm[Hg] Univer sity of pressure [facility] Diastolic blood 2022-06-02 15:15:00 86 mm[Hg] Unive rsity of pressure [facility] Heart rate 2022-06-02 15:15:00 89 /min [facility] Oxygen saturation in 2022-06-02 15:15:00 98 /min University of Arterial blood by [facility] Pulse oximetry Branch Body temperature 2022-06-02 15:14:00 36.72 Esther [facility] Body height 2022-06-02 15:14:00 162.6 cm [facility] Body weight 2022-06-02 15:14:00 77.747 kg [facility] BMI 2022-06-02 15:14:00 29.42 kg/m2 [facility] Systolic blood 2022-05-30 19:12:00 117 mm[Hg] Univer sity of pressure [facility] Diastolic blood 2022-05-30 19:12:00 77 mm[Hg] Unive rsity of pressure [facility] Heart rate 2022-05-30 19:12:00 84 /min [facility] Body height 2022-05-30 19:12:00 162.6 cm [facility] Body weight 2022-05-30 19:12:00 76.658 kg [facility] BMI 2022-05-30 19:12:00 29.01 kg/m2 [facility] Oxygen saturation in 2022-05-30 19:12:00 96 /min University of Arterial blood by [facility] Pulse oximetry Branch Systolic blood 2022-04-03 19:10:00 128 mm[Hg] Univer sity of pressure [facility] Diastolic blood 2022-04-03 19:10:00 82 mm[Hg] Unive rsity of pressure [facility] Heart rate 2022-04-03 19:10:00 80 /min [facility] Body temperature 2022-04-03 19:10:00 36.72 Esther [facility] Body height 2022-04-03 19:10:00 162.6 cm [facility] Body weight 2022-04-03 19:10:00 79.379 kg [facility] BMI 2022-04-03 19:10:00 30.04 kg/m2 [facility] Systolic blood 2022-03-12 19:44:00 112 mm[Hg] Univer sity of pressure [facility] Diastolic blood 2022-03-12 19:44:00 73 mm[Hg] Unive rsity of pressure [facility] Heart rate 2022-03-12 19:44:00 79 /min [facility] Body height 2022-03-12 19:44:00 162.6 cm [facility] Body weight 2022-03-12 19:44:00 81.194 kg [facility] BMI 2022-03-12 19:44:00 30.73 kg/m2 [facility] Oxygen saturation in 2022-03-12 19:44:00 94 /min University of Arterial blood by [facility] Pulse oximetry Branch Systolic blood 2022-02-26 19:02:00 123 mm[Hg] Univer sity of pressure [facility] Diastolic blood 2022-02-26 19:02:00 82 mm[Hg] Unive rsity of pressure [facility] Heart rate 2022-02-26 19:02:00 80 /min [facility] Body height 2022-02-26 19:02:00 162.6 cm [facility] Body weight 2022-02-26 19:02:00 80.559 kg [facility] BMI 2022-02-26 19:02:00 30.48 kg/m2 Universi ty [facility] Oxygen saturation in 2022-02-26 19:02:00 95 /min University of Arterial blood by [facility] Pulse oximetry Branch Systolic blood 2021-11-14 17:15:00 122 mm[Hg] Univer sity of pressure [facility] Diastolic blood 2021-11-14 17:15:00 78 mm[Hg] Unive rsity of pressure [facility] Heart rate 2021-11-14 17:15:00 78 /min Universi ty [facility] Body height 2021-11-14 17:15:00 162.6 cm Universi ty [facility] Body weight 2021-11-14 17:15:00 80.786 kg Universi ty [facility] BMI 2021-11-14 17:15:00 30.57 kg/m2 Universi ty [facility] Oxygen saturation in 2021-11-14 17:15:00 96 /min University of Arterial blood by [facility] Pulse oximetry Branch Respitory Rate 2017-09-16 22:00:00 Memori al Chris Systolic (mm Hg) 2017-09-16 21:00:00 Jorge rial [place] Diastolic (mm Hg) 2017-09-16 21:00:00 Mem orial [place] Respitory Rate 2017-09-16 21:00:00 Memori al Chris Systolic (mm Hg) 2017-09-16 20:00:00 Jorge rial [place] Diastolic (mm Hg) 2017-09-16 20:00:00 Mem orial Chris Respitory Rate 2017-09-16 20:00:00 Memori al Chris Systolic (mm Hg) 2017-09-16 19:00:00 Jorge rial [place] Diastolic (mm Hg) 2017-09-16 19:00:00 Mem orial [place] Temperature Oral (F) 2017-09-16 13:00:00 98.3 F [facility] Chris Temperature Oral (F) 2017-09-16 09:00:00 98.2 F [facility] Chris Temperature Oral (F) 2017-09-16 05:00:00 98.6 F Memorial [place] BMI Calculated 2017-09-15 04:38:00 Memori al [place] Height 2017-09-15 04:38:00 162.56 cm Memorial [place] Weight 2017-09-15 04:38:00 [facility] Procedures Procedure Date / Time Performing Clinician Source Performed EXTERNAL PROVIDER 2022-08-22 05:01:00 Doctor Unassigned, No [facility] [place] RECORDS Name Medical Branch EXTERNAL MAMMOGRAM 2022-08-04 00:00:00 Doctor Unassigned, No [facility] [place] Name Medical Branch REFERRAL- 2022-07-15 05:01:00 Doctor Unassigned, No [facility] [place] REQUEST/RESPONSE Name Medical Branch REFERRAL- 2022-07-03 05:01:00 Doctor Unassigned, No [facility] [place] REQUEST/RESPONSE Name Medical Branch [facility] PATIENT FINANCIAL 2022-06-02 14:52:52 Doctor Unassigned, No [facility] POLICY Name Medical [place] Appendectomy [facility] Hysterectomy [facility] Encounters Start End Encounter Admission Attending Care Care Encounter Source Date/Time Date/Time Type Type Clinicians Facility Department ID 2021-12-[address] [place] [id number] [place] 14:48:00 [place] [id number] [facility] 2022-08-29 2022-08-29 [facility] 1.2.840.114 [id number] Univers 00:00:00 00:00:00 [facility] 350.1.13.10 it y of [place] 4.2.7.2.686 [place] MC?BLEA [phone] [address] MEDICAL OFFICE [facility] 2022-08-25 2022-08-[address] [facility] [address] 1.2.840.114 [id number] Univers 00:00:00 00:00:00 [facility] 350.1.13.10 it y of [place] 4.2.7.2.686 [place] MC?BLEA [phone] [address] MEDICAL OFFICE BUILDING 2022-08-25 2022-08-25 [facility] 1.2.840.114 [id number] Univers 00:00:00 00:00:00 [facility] 350.1.13.10 it y of [place] 4.2.7.2.686 [place] MC?BLEA [phone] [address] MEDICAL OFFICE BUILDING 2022-08-22 2022-08-22 Orders Doctor BRODERICK 1.2.840.114 [id number] Univers 00:00:00 00:00:00 Only Unassigned, KEISHA 350.1.13.10 ity of [place] [facility] 4.2.7.2.686 [place] as [id number] [address] 2022-08-21 2022-08-[address] [facility] 1.2.840.114 [id number] Univers 00:00:00 00:00:00 God[facility] 350.1.13.10 it y of [place] 4.2.7.2.686 [place] MC?BLEA [id number] [address] 2022-08-21 2022-08-21 [facility] Ritetr[facility] 1.2.840.114 [id number] Univers 00:00:00 00:00:00 Godwin HEALTH 350.1.13.10 it y of [place] 4.2.7.2.686 [place] MC?BLEA [phone] [facility] [address] [facility] 2022-08-21 2022-08-[address] [facility] 1.2.840.114 [id number] Univers 00:00:00 00:00:00 Bijan HEALTH 350.1.13.10 it y of [place] 4.2.7.2.686 [place] MC?BLEA [phone] [address] [facility] 2022-08-15 2022-08-[address] [facility] 1.2.840.114 [id number] Univers 00:00:00 00:00:00 [facility] 350.1.13.10 it y of [place] 4.2.7.2.686 [place] MC?BLEA [id number] [facility] [address] [facility] 2022-08-15 2022-08-[address] [facility] 1.2.012.690 [id number] Univers 00:00:00 00:00:00 [facility] 350.1.13.10 it y of [place] 4.2.7.2.686 [place] MC?BLEA [phone] Vt uri MORIN [address] [place] [address] [facility] 2022-08-13 2022-08-[address] [facility] 1.2.840.114 [id number] Univers 00:00:00 00:00:00 [facility] 350.1.13.10 it y of [place] 4.2.7.2.686 [place] MC?BLEA [phone] Vt uri MORIN [address] [place] [address] [facility] 2022-08-12 2022-08-[address] [facility] 1.2.840.114 [id number] Univers 00:00:00 00:00:00 [facility] 350.1.13.10 it y of [place] 4.2.7.2.686 [place] MC?BLEA [phone] Vt uri OBRIEN[address] [facility] 2022-08-11 2022-08-[address] [facility] 1.2.840.114 [id number] Univers 00:00:00 00:00:00 [facility] 350.1.13.10 it y of [place] 4.2.7.2.686 [place] MC?BLEA [phone] Vt uri MORIN [address] [place] [address] [facility] 2022-08-08 2022-08-[address] [facility] 1.2.784.992 [id number] Univers 00:00:00 00:00:00 [facility] 350.1.13.10 it y of [place] 4.2.7.2.686 [place] MC?BLEA [phone] Vt uri MORIN [address] [place] [address] [facility] 2022-08-08 2022-08-[address] [facility] 1.2.942.705 [id number] Univers 00:00:00 00:00:00 [facility] 350.1.13.10 it y of [place] 4.2.7.2.686 [place] MC?BLEA [phone] Vt uri MORNI [address] [place] [address] [facility] 2022-07-31 2022-07-31 [facility] 1.2.840.114 [id number] Univers 00:00:00 00:00:00 [facility] 350.1.13.10 it y of [place] 4.2.7.2.686 [place] MC?BLEA [phone] Vt uri OBRIEN 044 [facility] OFFICE [facility] 2022-07-30 2022-07-30 Outpatient Armando RITTER [facility] [id number] Univers 00:00:00 00:00:00 GODWNI rocio [facility] 2022-07-30 2022-07-[address] [facility] 1.2.840.114 [id number] Univers 00:00:00 00:00:00 [facility] 350.1.13.10 it y of [place] 4.2.7.2.686 [place] MC?BLEA [id number] [address] 2022-07-29 2022-07-29 Membership [employer], [facility] 1.2.840.1 [id number] Univers 10:30:00 10:45:00 Visit Godwin Ritter [facility] 350.1.13.10 ity of [place] 4.2.7.2.686 [place] MC?BLEA [phone] [facility] [address] [facility] OFFICE [facility] 2022-07-29 2022-07-29 [facility]patient [facility] [id number] Univers 10:30:00 10:30:00 GODWIN rocio [facility] 2022-07-29 2022-07-[address] [facility] 1.2.840.114 [id number] Univers 10:15:00 10:30:00 Visit [facility] 350.1.13.10 [facility] 4.2.7.2.686 [place] MC?BLEA [id number] [address] [facility] 2022-07-29 2022-07-29 Outpatient Armando RITTER [facility] [id number] Univers 10:15:00 10:15:00 GODWIN rocio [facility] 2022-07-29 2022-07-[address] [facility] 1.2.029.840 [id number] Univers 00:00:00 00:00:00 [facility] 350.1.13.10 it y of [place] 4.2.7.2.686 [place] MC?BLEA [phone] Vt uri MORIN [address] [place] [address] [facility] 2022-07-25 2022-07-[address] [facility] 1.2.484.740 [id number] Univers 00:00:00 00:00:00 [facility] 350.1.13.10 it y of [place] 4.2.7.2.686 [place] MC?BLEA [phone] Vt uri MORIN [address] [place] [address] [facility] 2022-07-24 2022-07-24 Telephone [facility] 1.2.166.324 [id number] Univers 00:00:00 00:00:00 [facility] 350.1.13.10 it y of [place] 4.2.7.2.686 [place] MC?BLEA [phone] [address] [facility] 2022-07-24 2022-07-[address] [facility] 1.2.840.114 [id number] Univers 00:00:00 00:00:00 [facility] 350.1.13.10 it y of [place] 4.2.7.2.686 [place] MC?BLEA [phone] [facility] SWETHA[address] [facility] 2022-07-23 2022-07-[address] [facility] 1.2.840.114 [id number] Univers 00:00:00 00:00:00 [facility] 350.1.13.10 it y of [place] 4.2.7.2.686 [place] MC?BLEA [phone] Vt gillianct RONIT [address] [place] [address] [facility] 2022-07-23 2022-07-23 [facility]CH[facility] 1.2.840.114 [id number] Univers 00:00:00 00:00:00 [place] [facility] 350.1.13.10 it y of [place] 4.2.7.2.686 [place] MC?BLEA [phone] [facility] SWETHA[address] [facility] 2022-07-16 2022-07-[address] [facility] 1.2.140.440 [id number] Univers 00:00:00 00:00:00 [facility] 350.1.13.10 it y of [place] 4.2.7.2.686 [place] MC?BLEA [id number] [address] [facility] 2022-07-15 2022-07-15 Orders Doctor BRODERICK 1.2.840.114 [id number] Univers 00:00:00 00:00:00 Only Unassigned, KEISHA 350.1.13.10 ity of [place] [facility] 4.2.7.2.686 [place] as [id number] [address] 2022-07-03 2022-07-03 [facility] 1.2.840.114 [id number] Univers 00:00:00 00:00:00 [facility] 350.1.13.10 it y of [place] 4.2.7.2.686 [place] MC?BLEA [phone] [address] 2022-07-03 2022-07-03 Orders Doctor BRODERICK 1.2.840.114 [id number] Univers 00:00:00 00:00:00 Only Unassigned, KEISHA 350.1.13.10 ity of [place] [facility] 4.2.7.2.686 [place] [id number] [address] 2022-07-02 2022-07-[address] [facility] 1.2.840.114 [id number] Univers 00:00:00 00:00:00 [facility] 350.1.13.10 it y of [place] 4.2.7.2.686 [place] MC?BLEA [id number] [address] 2022-06-28 2022-06-[address] [facility] 1.2.840.114 [id number] Univers 00:00:00 00:00:00 [facility] 350.1.13.10 it y of [place] 4.2.7.2.686 [place] MC?BLEA [id number] [address] 2022-06-26 2022-06-[address] [facility] 1.2.840.114 [id number] Univers 00:00:00 00:00:00 [facility] 350.1.13.10 it y of [place] 4.2.7.2.686 [place] MC?BLEA [phone] Vt uri MORIN 044 [facility] OFFICE [facility] 2022-06-25 2022-06-25 [facility] UsamaCHRIST[facility] 1.2.840.114 [id number] Univers 00:00:00 00:00:00 [facility] 350.1.13.10 it y of [place] 4.2.7.2.686 [place] MC?BLEA [phone] Vt uri OBRIEN[address] [facility] 2022-06-24 2022-06-[address] [place] [address] [facility] 1.2.065.211 [id number] Univers 00:00:00 00:00:00 [facility] 350.1.13.10 it y of [place] 4.2.7.2.686 [place] MC?BLEA [phone] Vt uri MORIN [address] [place] [address] [facility] 2022-06-24 2022-06-24 [facility] R[facility]CHRIST[facility] 1.2.840.114 [id number] Univers 00:00:00 00:00:00 [facility] 350.1.13.10 it y of [place] 4.2.7.2.686 [place] MC?BLEA [phone] Vt uri [address] [facility] 2022-06-19 2022-06-[address] [facility] 1.2.840.114 [id number] Univers 00:00:00 00:00:00 [facility] 350.1.13.10 ity of [place] 4.2.7.2.686 [place] MC?BLEA [phone] Vt uri MORIN 092 [facility] OFFICE [facility] 2022-06-18 2022-06-[address] [place] [address] [facility] 1.2.775.694 [id number] Univers 00:00:00 00:00:00 [facility] 350.1.13.10 it y of [place] 4.2.7.2.686 [place] MC?BLEA [phone] Vt uri OBRIEN[address] [facility] 2022-06-18 2022-06-18 [facility] StormgermansandeeCHRIST[address] [facility] 1.2.840.114 [id number] Univers 00:00:00 00:00:00 Bijan HEALTH 350.1.13.10 it y of [place] 4.2.7.2.686 [place] MC?BLEA [id number] [address] [facility] 2022-06-18 2022-06-18 [facility] RitterCH[facility] 1.2.840.114 [id number] Univers 00:00:00 00:00:00 [facility] 350.1.13.10 it y of [place] 4.2.7.2.686 [place] MC?BLEA [id number] [address] [facility] 2022-06-17 2022-06-17 [facility] R[facility]CH[facility] 1.2.840.114 [id number] Univers 00:00:00 00:00:00 [facility] 350.1.13.10 it y of [place] 4.2.7.2.686 [place] MC?BLEA [id number] [address] 2022-06-16 2022-06-16 [facility] 1.2.840.114 10 [id number] [facility] 10:32:49 23:59:00 Encounter [facility] 350.1.13.10 ity of [place] [id number] [address] 2022-06-16 2022-06-16 [facility] 1.2.840.114 [id number] [facility] 10:32:39 23:59:00 Encounter [facility] HEALTH 350.1.13.10 ity [place] [id number] [address] 2022-06-16 2022-06-16 Outpatient R PETR MATHUR [facility] [id number] Univers 10:31:46 10:31:00 PETR MATHUR ity of [facility] 2022-06-16 2022-06-16 [facility] 1.2.840.114 [id number] Univers 10:00:00 10:31:00 Encounter Petr Huerta Y HEALTH 350.1.13.10 ity of [place] [id number] [facility] [address] [place] 2022-06-13 2022-06-13 [facility] 1.2.840.114 [id number] Univers 00:00:00 00:00:00 Bijan HEALTH 350.1.13.10 it y of [place] 4.2.7.2.686 [place] MC?BLEA [id number] [address] [facility] 2022-06-10 2022-06-10 [facility]CH[facility] 1.2.840.114 [id number] Univers 00:00:00 00:00:00 [facility] 350.1.13.10 it y of [place] 4.2.7.2.686 [place] MC?BLEA [id number] [address] [facility] 2022-06-10 2022-06-10 Telephone [facility] 1.2.106.940 [id number] Univers 00:00:00 00:00:00 [facility] 350.1.13.10 it y of [place] 4.2.7.2.686 [place] MC?BLEA [id number] [address] [facility] 2022-06-09 2022-06-09 Telephone [facility] 1.2.902.882 [id number] Univers 00:00:00 00:00:00 [facility] 350.1.13.10 it y of [place] 4.2.7.2.686 [place] MC?BLEA [phone] [address] [facility] 2022-06-09 2022-06-09 Telephone [facility] 1.2.776.390 [id number] Univers 00:00:00 00:00:00 [facility] 350.1.13.10 it y of [place] 4.2.7.2.686 [place] MC?BLEA [phone] [facility] OBRIEN 044 [facility] OFFICE [facility] 2022-06-02 2022-06-[address] [facility] 1.2.840.114 [id number] Univers 10:15:00 10:30:00 Visit [facility] 350.1.13.10 it y of [place] 4.2.7.2.686 [place] MC?BLEA [id number] [facility] SWETHA[address] OFF[address] [facility] 2022-06-02 2022-06-02 Outpatient R JACOB [facility] [id number] Univers 10:15:00 10:15:00 GODWIN [facility] 2022-06-02 2022-06-02 Orders Doctor BRODERICK 1.2.840.114 [id number] Univers 00:00:00 00:00:00 Only Unassigned, KEISHA [id number] ity of [place] [facility] 4.2.7.2.686 [place] as [phone] [address] 2022-06-02 2022-06-[address] [facility] 1.2.840.114 [id number] Univers 00:00:00 00:00:00 [facility] [id number] [facility] 4.2.7.2.686 [place] MC?BLEA [phone] [address] [facility] 2022-05-30 2022-05-30 Membership [facility], [facility] 1.2.840.1 [id number] Univers 14:15:00 14:30:00 Visit Godwin Ritter [facility] [id number] ity of [place] 4.2.7.2.686 [place] MC?BLEA [phone] [facility] SWETHA [address] [facility] OFFICE [facility] 2022-05-30 2022-05-30 Outpatient PETR PETERS [facility] [id number] Univers 13:00:00 13:46:46 PETR MATHUR rocio [facility] 2022-05-30 2022-05-30 Office Kareen [facility] 1.2.840.114 [id number] Univers 13:00:00 13:46:46 Visit [facility] [id number] ity of [place] 4.2.7.2.686 [place] MC?BLEA [phone] Vt uri MORIN 092 [facility] OFFICE [facility] 2022-05-28 2022-05-28 Telephone [facility] [id number] Univers 00:00:00 00:00:00 [facility] [id number] it y of [place] 4.2.7.2.686 [place] MC?BLEA [phone] Vt uri MORIN 044 [facility] OFFICE [facility] 2022-05-28 2022-05-28 [facility] Center 1.2.840.114 [id number] Univers 00:00:00 00:00:00 [facility] 350.1.13.10 it y of [place] 4.2.7.2.686 [place]?BLEA [phone] Vt uri MORIN [address] [place] [address] [facility] 2022-05-28 2022-05-28 Telephone [facility] 1.2.061.417 [id number] Univers 00:00:00 00:00:00 [facility] 350.1.13.10 it y of [place] 4.2.7.2.686 [place]?BLEA [phone] Vt uri MORIN [address] [place] [address] [facility] 2022-05-27 2022-05-27 [facility] 1.2.840.114 [id number] 388 Univers 00:00:00 00:00:00 [facility] 350.1.13.10 it y of [place] 4.2.7.2.686 [place]?BLEA [phone] Vt uri MORIN [address] [place] [address] [facility] 2022-05-27 2022-05-27 Telephone [facility] 1.2.481.483 [id number] [id number] Univers 00:00:00 00:00:00 [facility] 350.1.13.10 it y of [place] 4.2.7.2.686 [place]?BLEA [phone] Vt uri MORIN [address] [place] [address] [facility] 2022-05-23 2022-05-[address] [facility] 1.2.840.114 [id number] Univers 00:00:00 00:00:00 [facility] 350.1.13.10 it y of [place] 4.2.7.2.686 [place]?BLEA [phone] [address] [facility] 2022-05-19 2022-05-19 [facility] 1.2.840.114 [id number] Univers 00:00:00 00:00:00 [facility] 350.1.13.10 it y of [place] 4.2.7.2.686 [place]?BLEA [phone] [address] 2022-05-10 2022-05-10 [facility] 1.2.840.114 [id number] Univers 00:00:00 00:00:00 [facility] 350.1.13.10 it y of [place] 4.2.7.2.686 [place]?BLEA [id number] [address] 2022-05-09 2022-05-09 Outpatient R PETR MATHUR [facility] [id number] Univers 13:40:00 13:40:00 PETR MATHUR [facility] 2022-05-07 2022-05-[address] [facility] 1.2.840.114 [id number] Univers 00:00:00 00:00:00 [facility] 350.1.13.10 it y of [place] 4.2.7.2.686 [place]?BLEA [phone] [address] 2022-05-06 2022-05-[address] [facility] 1.2.448.918 [id number] 03747 Univers 00:00:00 00:00:00 [facility] 350.1.13.10 it y of [place] 4.2.7.2.686 [place]?BLEA [phone] [address] 2022-05-06 2022-05-[address] [facility] 1.2.840.114 [id number] 361 Univers 00:00:00 00:00:00 [facility] 350.1.13.10 it y of [place] 4.2.7.2.686 [place]?BLEA [phone] [address] [facility] 2022-05-05 2022-05-05 [facility] 1.2.840.114 [id number] Univers 00:00:00 00:00:00 [facility] 350.1.13.10 it y of [place] 4.2.7.2.686 [place]?BLEA [phone] [address] 2022-05-05 2022-05-05 [place] [address] [facility] 1.2.274.391 [id number] 14874 Univers 00:00:00 00:00:00 [facility] 350.1.13.10 it y of [place] 4.2.7.2.686 [place]?BLEA [phone] [address] 2022-05-02 2022-05-02 [facility] 1.2.840.114 [id number] Univers 00:00:00 00:00:00 [facility] 350.1.13.10 it y of [place] 4.2.7.2.686 [place]?BLEA [phone] [address] 2022-04-24 2022-04-24 [facility] 1.2.840.114 [id number] Univers 00:00:00 00:00:00 [facility] 350.1.13.10 it y of [place] 4.2.7.2.686 [place]?BLEA [id number] [address] 2022-04-23 2022-04-23 [facility] 1.2.840.114 [id number] Univers 00:00:00 00:00:00 [facility] 350.1.13.10 it y of [place] 4.2.7.2.686 [place]?BLEA [phone] [address] [facility] 2022-04-22 2022-04-22 Outpatient R PETR MATHUR [facility] [id number] Univers 10:00:00 10:00:00 PETR MATHUR rocio [facility] 2022-04-22 2022-04-[address] [facility] 1.2.840.114 [id number] 037 Univers 00:00:00 00:00:00 [facility] 350.1.13.10 it y of [place] 4.2.7.2.686 [place]?BLEA [phone] [address] [facility] 2022-04-21 2022-04-21 [facility] RamosersCH[facility] 1.2.840.114 [id number] Univers 00:00:00 00:00:00 [facility] 350.1.13.10 it y of [place] 4.2.7.2.686 [place]?BLEA [phone] [address] [facility] 2022-04-16 2022-04-16 [facility] 1.2.840.114 [id number] Univers 00:00:00 00:00:00 [facility] 350.1.13.10 it y of [place] 4.2.7.2.686 [place]?BLEA [id number] [address] [facility] 2022-04-09 2022-04-09 [facility] 1.2.840.114 [id number] Univers 00:00:00 00:00:00 [facility] 350.1.13.10 it y of [place] 4.2.7.2.686 [place]?BLEA [phone] [address] [facility] 2022-04-09 2022-04-09 [facility] 1.2.914.927 [id number] [id number] Univers 00:00:00 00:00:00 [facility] 350.1.13.10 it y of [place] 4.2.7.2.686 [place]?BLEA [phone] [address] [facility] 2022-04-09 2022-04-[address] [facility] 1.2.840.114 [id number] Univers 00:00:00 00:00:00 [facility] 350.1.13.10 it y of [place] 4.2.7.2.686 [place]?BLEA [phone] [facility] OBRIEN[address] [facility] [facility] 2022-04-07 2022-04-[address] [facility] 1.2.840.114 [id number] 96 Univers 00:00:00 00:00:00 [facility] 350.1.13.10 it y of [place] 4.2.7.2.686 [place]?BLEA [phone] [address] MEDICAL [facility] [facility] 2022-04-04 2022-04-[address] [facility] 1.2.840.114 [id number] 96 Univers 00:00:00 00:00:00 [facility] 350.1.13.10 it y of [place] 4.2.7.2.686 [place]?BLEA [id number] [address] [facility] 2022-04-03 2022-04-03 [facility] R [facility] [id number] Univers 13:00:00 13:22:44 GOD[place] cooley [facility] 2022-04-03 2022-04-[address] [facility] 1.2.840.114 [id number] Univers 13:00:00 13:22:44 Visit [facility] 350.1.13.10 it y of [place] 4.2.7.2.686 [place]?BLEA [phone] [address]ICAL [facility] [facility] 2022-04-01 2022-04-[address] [facility] 1.2.200.014 [id number] 9738 Univers 00:00:00 00:00:00 [facility] 350.1.13.10 it y of [place] 4.2.7.2.686 [place]?BLEA [phone] [address] [facility] 2022-03-31 2022-03-[address] [facility] 1.2.108.381 [id number] 8452 Univers 00:00:00 00:00:00 [facility] 350.1.13.10 it y of [place] 4.2.7.2.686 [place]?BLEA [phone] Vt uri MORIN [address] [facility] 2022-03-31 2022-03-[address] [place] [address] [facility] 1.2.840.114 99 [id number] Univers 00:00:00 00:00:00 [facility] 350.1.13.10 it y of [place] 4.2.7.2.686 [place]?BLEA [phone] Vt uri MORIN 198 [facility] OFFICE [facility] 2022-03-27 2022-03-27 [facility] 1.2.840.114 [id number] Univers 00:00:00 00:00:00 [facility] 350.1.13.10 it y of [place] 4.2.7.2.686 [place]?BLEA [phone] Vt uri MORIN 044 [facility] OFFICE [facility] 2022-03-25 2022-03-25 [facility] 1.2.840.114 [id number] 90 Univers 00:00:00 00:00:00 [facility] 350.1.13.10 it y of [place] 4.2.7.2.686 [place]?BLEA [phone] Vt uri MORIN 044 [facility] OFFICE [facility] 2022-03-25 2022-03-[address] [facility] 1.2.840.114 [id number] 02 Univers 00:00:00 00:00:00 [facility] 350.1.13.10 it y of [place] 4.2.7.2.686 [place]?BLEA [phone] Vt uri MORIN [address] [place] [address] [facility] 2022-03-21 2022-03-[address] [facility] 1.2.840.114 [id number] 04 Univers 00:00:00 00:00:00 [facility] 350.1.13.10 it y of [place] 4.2.7.2.686 [place]?BLEA [phone] Vt uri MORIN [address] [place] [address] [facility] 2022-03-20 2022-03-[address] [facility] 1.2.840.114 [id number] Univers 00:00:00 00:00:00 Kole Murphy [facility]ALTH 350.1.13.10 it y of [place] 4.2.7.2.686 [place]?BLEA [phone] Vt uri MORIN 198 [facility] OFFICE [facility] 2022-03-17 2022-03-[address] [facility] 1.2.840.114 [id number] 06 Univers 00:00:00 00:00:00 [facility] 350.1.13.10 it y of [place] 4.2.7.2.686 [place]?BLEA [phone] Vt uri MORIN 044 [facility] OFFICE [facility] 2022-03-14 2022-03-14 [facility] 1.2.840.114 [id number] Univers 00:00:00 00:00:00 [facility] 350.1.13.10 it y of [place] 4.2.7.2.686 [place]?BLEA [phone] Vt uri MORIN 044 [facility] OFFICE [facility] 2022-03-13 2022-03-13 [facility] R [facility] [id number] Univers 00:00:00 00:00:00 [facility] 2022-03-12 2022-03-[address] [facility] 1.2.372.258 [id number] 2217 Univers 14:45:00 14:45:00 Visit [facility] 350.1.13.10 it y of [place] 4.2.7.2.686 [place]?BLEA [phone] Vt uri MORIN 198 [facility] OFFICE [facility] 2022-03-12 2022-03-12 Outpatient R DEYANIRASELECT [facility] [id number] Univers 14:45:00 14:08:11 [facility] 2022-03-12 2022-03-[address] [facility] 1.2.922.860 [id number] Univers 00:00:00 00:00:00 [facility] 350.1.13.10 it y of [place] 4.2.7.2.686 [place]?BLEA [phone] Vt uri MORIN [address] [place] [address] [facility] 2022-03-12 2022-03-[address] [facility] 1.2.840.114 [id number] Univers 00:00:00 00:00:00 [facility] 350.1.13.10 it y of [place] 4.2.7.2.686 [place]?BLEA [phone] Vt uri MORIN [address] [place] [address] [facility] 2022-03-12 2022-03-[address] [facility] 1.2.840.114 [id number] Univers 00:00:00 00:00:00 Kole L HEALTH 350.1.13.10 it y of [place] 4.2.7.2.686 [place]?BLEA [phone] Vt uri MORIN 198 [facility] OFFICE [facility] 2022-03-10 2022-03-[facility] JacobCH[facility] 1.2.840.114 [id number] Univers 00:00:00 00:00:00 [facility] 350.1.13.10 it y of [place] 4.2.7.2.686 [place]?BLEA [phone] Vt uri OBRIEN[address] [facility] 2022-03-06 2022-03-[address] [facility] 1.2.896.852 [id number] Univers 00:00:00 00:00:00 [facility] 350.1.13.10 it y of [place] 4.2.7.2.686 [place]?BLEA [phone] Vt uri OBRIEN[address] [facility] 2022-03-05 2022-03-05 Outpatient R MCMILLANSELECT [facility] [id number] Univers 15:00:00 15:00:00 KOLE cooley [facility] 2022-03-03 2022-03-[address] [facility] 1.2.916.307 [id number] 9212 Univers 00:00:00 00:00:00 [facility] 350.1.13.10 it y of [place] 4.2.7.2.686 [place]?BLEA [phone] [facility] SWETHA[address] [facility] 2022-03-03 2022-03-[address] [facility] 1.2.840.114 [id number] Univers 00:00:00 00:00:00 [facility] 350.1.13.10 it y of [place] 4.2.7.2.686 [place]?BLEA [phone] [address] [facility] 2022-02-27 2022-02-[address] [facility] 1.2.090.498 [id number] 7456 Univers 00:00:00 00:00:00 [facility] 350.1.13.10 it y of [place] 4.2.7.2.686 [place]?BLEA [id number] [address] [facility] 2022-02-26 2022-02-26 Outpatient R [facility] [id number] Univers 13:15:00 13:30:58 GODWIN ity [facility] 2022-02-26 2022-02-[address] [facility] 1.2.840.114 [id number] Univers 13:15:00 13:30:58 Visit [facility] 350.1.13.10 it y of [place] 4.2.7.2.686 [place]?BLEA [id number] [address] [facility] 2022-02-26 2022-02-26 [facility] RitterCH[facility] 1.2.840.114 [id number] Univers 00:00:00 00:00:00 [facility] 350.1.13.10 it y of [place] 4.2.7.2.686 [place]?BLEA [id number] [address] [facility] 2022-02-26 2022-02-[address] [facility] 1.2.840.114 [id number] Univers 00:00:00 00:00:00 [facility] 350.1.13.10 it y of [place] 4.2.7.2.686 [place]?BLEA [phone] [address] [facility] 2022-02-25 2022-02-[address] [facility] 1.2.840.114 [id number] Univers 00:00:00 00:00:00 [facility] 350.1.13.10 it y of [place] 4.2.7.2.686 [place]?BLEA [phone] [address] 2022-02-22 2022-02-22 [facility] 1.2.840.114 [id number] Univers 00:00:00 00:00:00 [facility] 350.1.13.10 it y of [place] 4.2.7.2.686 [place]?BLEA [id number] [address] 2022-02-17 2022-02-17 [facility] 1.2.840.114 [id number] 05 Univers 00:00:00 00:00:00 [facility] 350.1.13.10 it y of [place] 4.2.7.2.686 [place]?BLEA [phone] [address] 2022-02-15 2022-02-15 [facility] 1.2.840.114 [id number] 92 Univers 00:00:00 00:00:00 [facility] 350.1.13.10 it y of [place] 4.2.7.2.686 [place]?BLEA [id number] [address] 2022-02-12 2022-02-12 Outpatient R DEYANIRA [facility] [id number] Univers 16:00:00 16:00:00 KOLE cooley [facility] 2022-02-11 2022-02-[address] [facility] 1.2.840.114 [id number] Univers 00:00:00 00:00:00 [facility] 350.1.13.10 it y of [place] 4.2.7.2.686 [place]?BLEA 114.9420881 [address] 2022-02-08 2022-02-[address] [facility] 1.2.840.114 [id number] 43 Univers 00:00:00 00:00:00 [facility] 350.1.13.10 it y of [place] 4.2.7.2.686 [place]?BLEA [id number] [address] [facility] 2022-02-07 2022-02-[address] [facility] 1.2.840.114 [id number] 00 Univers 00:00:00 00:00:00 [facility] 350.1.13.10 it y of [place] 4.2.7.2.686 [place]?BLEA [id number] [address] 2022-02-06 2022-02-[address] [facility] 1.2.840.114 [id number] 62 Univers 00:00:00 00:00:00 [facility] 350.1.13.10 it y of [place] 4.2.7.2.686 [place]?BLEA [id number] [address] 2022-02-05 2022-02-[address] [facility] 1.2.840.114 [id number] 20 Univers 00:00:00 00:00:00 [facility] 350.1.13.10 it y of [place] 4.2.7.2.686 [place]?BLEA [id number] [address] [facility] 2022-02-04 2022-02-[address] [facility] 1.2.840.114 [id number] 65 Univers 00:00:00 00:00:00 [facility] 350.1.13.10 it y of [place] 4.2.7.2.686 [place]?BLEA [id number] [address] [facility] 2022-02-04 2022-02-[address] [facility] 1.2.840.114 [id number] Univers 00:00:00 00:00:00 [facility] 350.1.13.10 it y of [place] 4.2.7.2.686 [place]?BLEA [phone] Vt uri MORIN [address] [place] [address] [facility] 2022-02-03 2022-02-03 [facility]CH[facility] 1.2.840.114 [id number] 33 Univers 00:00:00 00:00:00 [facility] 350.1.13.10 it y of [place] 4.2.7.2.686 [place]?BLEA 357.8548811 Vt uri MORIN [address] [place] [address] [facility] 2022-01-20 2022-01-20 [facility] 1.2.840.114 [id number] Univers 00:00:00 00:00:00 [facility] 350.1.13.10 it y of [place] 4.2.7.2.686 [place]?BLEA [phone] [facility] OBRIEN[address] [facility] 2022-01-15 2022-01-[address] [facility] 1.2.565.218 [id number] Univers 00:00:00 00:00:00 [facility] 350.1.13.10 it y of [place] 4.2.7.2.686 [place]?BLEA [phone] [facility] SWETHA[address] [facility] 2022-01-15 2022-01-15 [facility] 1.2.840.114 [id number] 94 Univers 00:00:00 00:00:00 [facility] 350.1.13.10 it y of [place] 4.2.7.2.686 [place] MC?BLEA [phone] [facility] OBRIEN[address] [facility] 2022-01-14 2022-01-14 [facility] 1.2.840.114 [id number] 89 Univers 00:00:00 00:00:00 [facility] 350.1.13.10 it y of [place] 4.2.7.2.686 [place]?BLEA [phone] [facility] SWETHA[address] [facility] 2022-01-14 2022-01-[address] [facility] 1.2.062.617 [id number] 8705 Univers 00:00:00 00:00:00 [facility] 350.1.13.10 it y of [place] 4.2.7.2.686 [place]?BLEA [phone] Vt uri MORIN [address] [place] [address] [facility] 2022-01-13 2022-01-13 Leif Forrester [facility] 1.2.840.114 [id number] Univers 00:00:00 00:00:00 [facility] HEALTH 350.1.13.10 it y of [place] 4.2.7.2.686 [place] MC?BLEA [phone] Vt uri MORIN [address] [place] [address] [facility] 2022-01-13 2022-01-[address] [facility] 1.2.840.114 [id number] 49 Univers 00:00:00 00:00:00 [facility] 350.1.13.10 it y of [place] 4.2.7.2.686 [place] MC?BLEA [phone] Vt uri [address] [facility] 2022-01-04 2022-01-[address] [facility] 1.2.840.114 [id number] 04 Univers 00:00:00 00:00:00 [facility] 350.1.13.10 it y of [place] 4.2.7.2.686 [place]?BLEA [phone] Vt uri OBRIEN[address] [facility] 2021-12-30 2021-12-[address] [facility] 1.2.840.114 [id number] 30 Univers 00:00:00 00:00:00 [facility] 350.1.13.10 it y of [place] 4.2.7.2.686 [place] MC?BLEA [phone] Vt uri MORIN [address] [place] [address] [facility] 2021-12-23 2021-12-[address] [facility] 1.2.840.114 [id number] Univers 00:00:00 00:00:00 [facility] 350.1.13.10 it y of [place] 4.2.7.2.686 [place] MC?BLEA [phone] Vt gillianct SWETHA[address] [facility] 2021-12-18 2021-12-[address] [facility] 1.2.840.114 [id number] Univers 00:00:00 00:00:00 [facility] 350.1.13.10 it y of [place] 4.2.7.2.686 [place] MC?BLEA [phone] [address] [facility] 2021-12-18 2021-12-18 [facility] 1.2.840.114 [id number] Univers 00:00:00 00:00:00 [facility] 350.1.13.10 it y of [place] 4.2.7.2.686 [place] MC?BLEA [phone] [address] 2021-12-18 2021-12-18 [facility] 1.2.840.114 [id number] Univers 00:00:00 00:00:00 [facility] 350.1.13.10 it y of [place] 4.2.7.2.686 [place] MC?BLEA [phone] [address] 2021-12-13 2021-12-13 Outpatient R JACOB [facility] [id number] Univers 00:00:00 00:00:00 [facility] cooley [facility] 2021-12-13 2021-12-[address] [facility] 1.2.419.621 [id number] Univers 00:00:00 00:00:00 [facility] 350.1.13.10 it y of [place] 4.2.7.2.686 [place] MC?BLEA [phone] [address] [facility] 2021-12-10 2021-12-10 [facility] 1.2.840.114 [id number] Univers 00:00:00 00:00:00 [facility] 350.1.13.10 it y of [place] 4.2.7.2.686 [place] MC?BLEA [phone] [address] 2021-12-09 2021-12-09 [facility] 1.2.840.114 [id number] Univers 00:00:00 00:00:00 [facility] 350.1.13.10 it y of [place] 4.2.7.2.686 [place] [facility]?BLEA [phone] [address] [facility] 2021-12-09 2021-12-09 [facility].2.556.737 [id number] Univers 00:00:00 00:00:00 [facility] 350.1.13.10 it y of [place] 4.2.7.2.686 [place] [facility]?BLEA [phone] [address] [facility] 2021-12-06 2021-12-06 [facility] 1.2.840.114 [id number] Univers 00:00:00 00:00:00 [facility] 350.1.13.10 it y of [place] 4.2.7.2.686 [place] [facility]?BLEA [phone] [address] [facility] 2021-12-02 2021-12-02 [facility] 1.2.840.114 [id number] Univers 00:00:00 00:00:00 [facility] 350.1.13.10 it y of [place] 4.2.7.2.686 [place] [facility]?BLEA [phone] [address] [facility] 2021-11-28 2021-11-28 [facility] [id number] Univers 00:00:00 00:00:00 [facility] ity of [facility] 2021-11-28 2021-11-28 [facility] 1.2.450.341 [id number] Univers 00:00:00 00:00:00 [facility] 350.1.13.10 it y of [place] 4.2.7.2.686 [place] MC?BLEA [phone] [address] [facility] [facility] 2021-11-21 2021-11-21 [place] [facility] 1.2.293.238 [id number] Univers 00:00:00 00:00:00 [facility] 350.1.13.10 it y of [place] 4.2.7.2.686 [place] MC?BLEA [phone] Vt uri MORIN [address] [facility] 2021-11-19 2021-11-[address] [facility] 1.2.840.114 [id number] Univers 00:00:00 00:00:00 [place] [address].1.13.10 it y of [place] 4.2.7.2.686 [place] CM?BLEA [phone] Vt uri MORIN [address] [place] [address] [facility] 2021-11-18 2021-11-18 Telephone [facility] 1.2.268.647 [id number] Univers 00:00:00 00:00:00 [place] [address]..13.10 it y of [place] 4.2.7.2.686 [place] MC?BLEA [phone] Vt gillianct SWET[address] 2021-11-14 2021-11-14 Outpatient R JACOB [facility] [id number] Univers 12:39:50 23:59:00 [facility] 2021-11-14 2021-11-14 [facility] [id number] Univers 12:39:50 23:59:00 [facility] 2021-11-14 2021-11-14 Membership [employer], [facility] 1.2.840.1 14 [id number] Univers 12:30:00 12:45:00 Visit [place]enn[place] [address].1.13.10 ity of [place] 4.2.7.2.686 [place] MC?BLEA [phone] Vt uri MORIN 353 [facility] OFFICE [facility] 2021-11-14 2021-11-[address] [facility] 1.2.840.114 [id number] Univers 12:15:00 12:30:00 Visit [place] [address].1.13.10 it y of [place] 4.2.7.2.686 [place] MC?BLEA [phone] Vt uri MORIN [address] [place] [address] [facility] 2021-11-14 2021-11-14 [facility] 1.2.706.636 [id number] Univers 00:00:00 00:00:00 [facility] 350.1.13.10 it y of [place] 4.2.7.2.686 [place] MC?BLEA [phone] [address] [facility] 2021-11-13 2021-11-13 Outpatient Armando [facility] [id number] Univers 09:45:00 09:45:00 [facility] cooley [facility] 2021-11-12 2021-11-12 [facility] 1.2.840.114 [id number] Univers 00:00:00 00:00:00 [facility] 350.1.13.10 [facility] 4.2.7.2.686 [place] MC?BLEA [phone] [address] [facility] 2021-11-08 2021-11-08 [facility] 1..840.114 [id number] Univers 00:00:00 00:00:00 [facility] 350.1.13.10 it y of [place] 4.2.7.2.686 [place] MC?BLEA [phone] [address] [facility] 2021-11-07 2021-11-07 Outpatient Armando RITTER [facility] [id number] Univers 12:00:00 12:00:00 GODWIN cooley [facility] 2021-11-04 2021-11-04 Outpatient Armando [facility] [id number] Univers 09:30:00 09:30:00 GODWIN cooley [facility] 2021-10-31 2021-10-31 Outpatient Armando [facility] [id number] Univers 12:00:00 12:00:00 GODWIN rocio [facility] 2021-10-31 2021-10-31 Orders Doctor VILLAFANA 1.2.840.114 [id number] Univers 00:00:00 00:00:00 Only Unassigned, KEISHA 350.1.13.10 ity of [place] [facility] 4.2.7.2.686 [place] as [phone] [address] 2021-10-29 2021-10-29 Outpatient Armando RITTER [facility] [id number] Univers 09:45:00 09:45:00 GODWIN cooley [facility] 2021-10-28 2021-10-[address] [facility] 1.2.840.114 [id number] Univers 00:00:00 00:00:00 [facility] 350.1.13.10 it y of [place] 4.2.7.2.686 [place] MC?BLEA [phone] [address] [facility] 2021-10-24 2021-10-24 Outpatient MIKHAIL_CLAUDIA [facility] [address]42 [place] 00:00:00 00:00:00 _ANN 0804 da [facility] 2021-10-24 2021-10-24 [facility] 1.2.840.114 [id number] Univers 00:00:00 00:00:00 [facility] 350.1.13.10 it [facility] 4.2.7.2.686 [place] MC?BLEA [phone] [address] [facility] 2021-10-23 2021-10-23 [facility] 1.2.840.114 [id number] Univers 00:00:00 00:00:00 [facility] 350.1.13.10 it y of [place] 4.2.7.2.686 [place] MC?BLEA [phone] [address] [facility] 2021-10-23 2021-10-[address] [place] [address] [facility] 1.2.276.737 [id number] Univers 00:00:00 00:00:00 [facility] 350.1.13.10 it y of [place] 4.2.7.2.686 [place] MC?BLEA [phone] [address] [facility] 2021-10-22 2021-10-22 [facility] 1.2.840.114 [id number] Univers 00:00:00 00:00:00 [facility] 350.1.13.10 it y of [place] 4.2.7.2.686 [place] MC?BLEA [phone] Vt uri OBRIEN[address] [facility] 2021-10-21 2021-10-21 [facility] 1.2.840.114 [id number] Univers 00:00:00 00:00:00 [facility] 350.1.13.10 it y of [place] 4.2.7.2.686 [place] MC?BLEA [phone] [facility] SWETHA[address] [facility] 2021-10-17 2021-10-17 [facility] 1.2.840.114 [id number] Univers 00:00:00 00:00:00 [facility] 350.1.13.10 it y of [place] 4.2.7.2.686 [place] MC?BLEA [phone] [address] [facility] 2021-09-30 2021-09-30 [facility] 1.2.840.114 [id number] Univers 00:00:00 00:00:00 [facility] 350.1.13.10 it y of [place] 4.2.7.2.686 [place] MC?BLEA [phone] [address] [facility] 2021-09-26 2021-09-26 [facility] 1.2.840.114 [id number] Univers 00:00:00 00:00:00 [facility] 350.1.13.10 it y of [place] 4.2.7.2.686 [place] MC?BLEA [phone] [facility] SWETHA[address] [facility] 2021-09-25 2021-09-25 [facility] 1.2.840.114 [id number] Univers 00:00:00 00:00:00 [facility] 350.1.13.10 it y of [place] 4.2.7.2.686 [place] MC?BLEA [phone] [address] [facility] 2021-09-25 2021-09-25 [facility] 1.2.840.114 [id number] 23 Univers 00:00:00 00:00:00 [facility] 350.1.13.10 it y of [place] 4.2.7.2.686 [place] MC?BLEA [phone] [facility] SWETHA[address] [facility] 2021-09-18 2021-09-18 [facility] 1.2.840.114 [id number] Univers 00:00:00 00:00:00 [facility] 350.1.13.10 it y of [place] 4.2.7.2.686 [place] MC?BLEA [phone] [address] [facility] 2021-09-18 2021-09-18 [facility] 1.2.840.114 [id number] Univers 00:00:00 00:00:00 [facility] 350.1.13.10 it y of [place] 4.2.7.2.686 [place] MC?BLEA [phone] [address] [facility] 2021-09-16 2021-09-16 [facility] 1.2.840.114 [id number] Univers 00:00:00 00:00:00 [facility] 350.1.13.10 it y of [place] 4.2.7.2.686 [place] MC?BLEA [phone] [address] [facility] 2021-09-14 2021-09-14 [facility] 1.2.840.114 [id number] Univers 00:00:00 00:00:00 [facility] 350.1.13.10 it y of [place] 4.2.7.2.686 [place] MC?BLEA [phone] [address] [facility] 2021-09-11 2021-09-11 [facility] 1.2.840.114 [id number] Univers 00:00:00 00:00:00 [facility] 350.1.13.10 it y of [place] 4.2.7.2.686 [place] MC?BLEA [phone] [address] [facility] 2021-09-09 2021-09-09 [facility] 1.2.840.114 [id number] 89 Univers 00:00:00 00:00:00 [facility] 350.1.13.10 it y of [place] 4.2.7.2.686 [place] MC?BLEA [phone] [address] 2021-09-02 2021-09-02 Outpatient Armando RITTER [facility] [id number] Univers 13:45:00 13:45:00 [facility] 2021-08-30 2021-08-[address] [facility] 1.2.561.668 [id number] Univers 00:00:00 00:00:00 [facility] 350.1.13.10 it y of [place] 4.2.7.2.686 [place] MC?BLEA [phone] [address] 2021-08-29 2021-08-29 [facility] 1.2.840.114 [id number] Univers 00:00:00 00:00:00 [facility] 350.1.13.10 it y of [place] 4.2.7.2.686 [place] MC?BLEA [phone] [address] 2021-08-26 2021-08-26 [facility] 1.2.840.114 [id number] 44 Univers 00:00:00 00:00:00 [facility] 350.1.13.10 it y of [place] 4.2.7.2.686 [place] MC?BLEA [phone] [address] 2021-08-20 2021-08-20 Outpatient Armando RITTER [facility] [id number] Univers 08:15:00 08:15:00 [facility] 2021-08-20 2021-08-[address] [facility] 1.2.862.339 [id number] Univers 00:00:00 00:00:00 [facility] 350.1.13.10 it y of [place] 4.2.7.2.686 [place] MC?BLEA [phone] Vt uri OBRIEN[address] [facility] [facility] 2021-08-20 2021-08-20 [facility] 1.2.840.114 [id number] Univers 00:00:00 00:00:00 [facility] 350.1.13.10 it y of [place] 4.2.7.2.686 [place] MC?BLEA [phone] [facility] OBRIEN[address] [facility] [facility] 2021-08-20 2021-08-20 [facility] 1.2.840.114 [id number] 64 Univers 00:00:00 00:00:00 [facility] 350.1.13.10 it y of [place] 4.2.7.2.686 [place] MC?BLEA [phone] [address] [facility] 2021-08-16 2021-08-16 [facility] 1.2.840.114 [id number] Univers 00:00:00 00:00:00 [facility] 350.1.13.10 it y of [place] 4.2.7.2.686 [place] MC?BLEA [id number] [address] [facility] 2021-08-13 2021-08-13 [facility] 1.2.840.114 [id number] Univers 00:00:00 00:00:00 [facility] 350.1.13.10 it y of [place] 4.2.7.2.686 [place] MC?BLEA [phone] Vt uri OBRIEN[address] MED[address] [facility] [facility] 2021-08-12 2021-08-12 [facility] 1.2.840.114 [id number] 67 Univers 00:00:00 00:00:00 [facility] 350.1.13.10 it y of [place] 4.2.7.2.686 [place] MC?BLEA [phone] [address] [facility] 2021-08-08 2021-08-08 [facility] 1.2.840.114 [id number] Univers 00:00:00 00:00:00 [facility] 350.1.13.10 it y of [place] 4.2.7.2.686 [place] MC?BLEA [id number] [address] [facility] 2021-08-08 2021-08-08 [facility] 1.2.840.114 [id number] Univers 00:00:00 00:00:00 [facility] 350.1.13.10 it y of [place] 4.2.7.2.686 [place] MC?BLEA [phone] [address] [facility] 2021-08-06 2021-08-06 [facility] 1.2.840.114 [id number] Univers 00:00:00 00:00:00 [facility] 350.1.13.10 it y of [place] 4.2.7.2.686 [place] MC?BLEA [phone] [address] [facility] 2021-08-06 2021-08-06 [facility] 1.2.840.114 [id number] 73 Univers 00:00:00 00:00:00 [facility] 350.1.13.10 it y of [place] 4.2.7.2.686 [place] MC?BLEA [phone] [address] [facility] 2021-08-06 2021-08-06 [facility] 1.2.840.114 [id number] 64 Univers 00:00:00 00:00:00 [facility] 350.1.13.10 it y of [place] 4.2.7.2.686 [place] MC?BLEA [phone] [address] [facility] 2021-08-01 2021-08-01 [facility] 1.2.840.114 [id number] 25 Univers 00:00:00 00:00:00 [facility] 350.1.13.10 it y of [place] 4.2.7.2.686 [place] MC?BLEA [phone] [address] [facility] 2021-07-29 2021-07-29 [facility] 1.2.840.114 [id number] Univers 00:00:00 00:00:00 [facility] 350.1.13.10 it y of [place] 4.2.7.2.686 [place] MC?BLEA [phone] Vt uri OBRI[address] 2021-07-25 2021-07-25 [facility] 1.2.840.114 [id number] 77 Univers 00:00:00 00:00:00 [facility] 350.1.13.10 it y of [place] 4.2.7.2.686 [place] MC?BLEA [phone] [address] 2021-07-22 2021-07-22 [facility] 1.2.840.114 [id number] 56 Univers 00:00:00 00:00:00 [facility] 350.1.13.10 it y of [place] 4.2.7.2.686 [place] MC?BLEA [phone] [facility] [address] 2021-07-16 2021-07-[address] [place] [address] [facility] 1.2.272.461 [id number] 4444 Univers 00:00:00 00:00:00 [facility] 350.1.13.10 it y of [place] 4.2.7.2.686 [place] MC?BLEA [phone] [facility] [address] 2021-07-15 2021-07-15 [facility] 1.2.840.114 [id number] Univers 00:00:00 00:00:00 [facility] 350.1.13.10 it y of [place] 4.2.7.2.686 [place] MC?BLEA [phone] [facility] [address] 2021-07-15 2021-07-15 [facility] 1.2.840.114 [id number] Univers 00:00:00 00:00:00 [facility] 350.1.13.10 it y of [place] 4.2.7.2.686 [place] PROFESSIO [phone] [address] OFFICE BUILDING ONE 2021-07-12 2021-07-12 Reflennie Ritter VASMITA 1.2.840.114 [id number] 74 Univers 00:00:00 00:00:00 [facility] 350.1.13.10 [facility] 4.2.7.2.686 [place] MC?BLEA [phone] [address] MEDICAL OFFICE BUILDING 2021-07-11 2021-07-[address] [facility] 1.2.840.114 [id number] 31 Univers 00:00:00 00:00:00 [facility] 350.1.13.10 it y [facility] 4.2.7.2.686 [place] MC?BLEA [id number] [address] [facility] 2021-07-08 2021-07-08 Orders Doctor BRODERICK 1.2.840.114 [id number] Univers 00:00:00 00:00:00 Only Unassigned, KEISHA 350.1.13.10 ity of [place] [facility] 4.2.7.2.686 [place] as [phone] [address] 2021-07-04 2021-07-[address] [facility] 1.2.840.114 [id number] Univers 00:00:00 00:00:00 [facility] 350.1.13.10 it y [facility] 4.2.7.2.686 [place] MC?BLEA [id number] [address] OFFICE BUILDING 2021-07-02 2021-07-02 Julisa RitterWYCKOFF, UTSMITA 1.2.689.632 [id number] 1031 Univers 00:00:00 00:00:00 [facility] 350.1.13.10 it [facility] 4.2.7.2.686 [place] MC?BLEA [phone] [address] [facility] 2021-07-02 2021-07-[address] [facility] 1.2.840.114 [id number] Univers 00:00:00 00:00:00 [facility] 350.1.13.10 it y of [place] 4.2.7.2.686 [place] MC?BLEA [phone] Vt uri MORIN [address] [place] [address] MEDICAL OFFICE BUILDING 2021-07-02 2021-07-02 Reflennie Ritter, [facility] 1.2.840.114 [id number] Univers 00:00:00 00:00:00 [facility] 350.1.13.10 it y of [place] 4.2.7.2.686 [place] MC?BLEA [phone] Vt uri MORIN [address] [place] [address] OFFICE BUILDING 2021-07-02 2021-07-02 Telephone Ritter, [facility] 1.2.549.586 [id number] Univers 00:00:00 00:00:00 [facility] 350.1.13.10 it y of [place] 4.2.7.2.686 [place] MC?BLEA [phone] Vt uri OBRIEN[address] [facility] 2021-07-02 2021-07-[address] [facility] 1.2.840.114 [id number] Univers 00:00:00 00:00:00 [facility] 350.1.13.10 it y of [place] 4.2.7.2.686 [place] PROFESSIO [phone] Vt gillianct COLLETTE [address] [place] [address] [facility] ONE 2021-07-01 2021-07-[address] [facility] 1.2.840.114 [id number] 72 Univers 00:00:00 00:00:00 [facility] 350.1.13.10 it y of [place] 4.2.7.2.686 [place] PROFESSIO [phone] Vt gillianal NAL [address] [place] [address] [facility] ONE 2021-06-28 2021-06-[address] [facility] 1.2.840.114 [id number] 70 Univers 00:00:00 00:00:00 [facility] 350.1.13.10 it y of [place] 4.2.7.2.686 [place] PROFESSIO [phone] [facility] NAL [address] [place] [address] [facility] ONE 2021-06-27 2021-06-[address] [facility] 1.2.840.114 [id number] Univers 00:00:00 00:00:00 [facility] 350.1.13.10 it y of [place] 4.2.7.2.686 [place] PROFESSIO [phone] [address] OFFICE BUILDING ONE 2021-06-19 2021-06-19 Telephone BRODERICK Hamm 1.2.254.735 [id number] Univers 00:00:00 00:00:00 Klaudia Sevilla KEISHA 350.1.13.10 i ty of [facility] 4.2.7.2.686 [place] [phone] [facility] [address] 2021-06-13 2021-06-[address] [facility] 1.2.840.114 [id number] Univers 00:00:00 00:00:00 [facility] 350.1.13.10 it y of [place] 4.2.7.2.686 [place] MC?BLEA [phone] [address] MEDICAL OFFICE BUILDING 2021-06-13 2021-06-[address] [facility] 1.2.840.114 [id number] Univers 00:00:00 00:00:00 [facility] 350.1.13.10 it y of [place] 4.2.7.2.686 [place] MC?BLEA [phone] [address] MEDICAL OFFICE BUILDING 2021-06-10 2021-06-[address] [facility] 1.2.840.114 [id number] Univers 00:00:00 00:00:00 [facility] 350.1.13.10 it y of [place] 4.2.7.2.686 [place] PROFESSIO [phone] [facility] NAL [address] [place] [address] OFFICE BUILDING ONE 2021-06-10 2021-06-[address] [facility] 1.2.638.087 [id number] Univers 00:00:00 00:00:00 [facility] 350.1.13.10 it y of [place] 4.2.7.2.686 [place] MC?BLEA [phone] [address] MEDICAL OFFICE BUILDING 2021-06-06 2021-06-[address] [facility] 1.2.840.114 [id number] 78 Univers 00:00:00 00:00:00 [facility] 350.1.13.10 it y of [place] 4.2.7.2.686 [place] PROFESSIO [phone] [address] ONE 2021-06-04 2021-06-04 [facility] [id number] Univers 08:30:00 08:30:00 GODWIN rocio [facility] 2021-06-03 2021-06-03 Outpatient Armando [facility] [id number] Univers 14:00:00 14:00:00 [facility] 2021-05-20 2021-05-[address] [facility] 1..840.114 [id number] Univers 00:00:00 00:00:00 [facility] [id number] [facility] y of [place] [id number] [place] PROFESSIO [phone] [address] 2021-05-14 2021-05-14 Outpatient Armando [facility] [id number] Univers 09:00:00 09:00:00 GODWIN [facility] 2021-05-13 2021-05-13 Outpatient Armando [facility] [id number] Univers 12:00:00 12:00:00 GODWIN rocio [facility] 2021-05-09 2021-05-[address] [facility] 1.2.840.114 [id number] Univers 00:00:00 00:00:00 Godwin [facility]ALTH [id number] it y of [place] [id number] [place] MC?BLEA [phone] [address] 2021-05-07 2021-05-[address] [facility] 1.2.840.114 [id number] Univers 00:00:00 00:00:00 Godwin HEALTH [id number] it y of [place] 4.2.7.2.686 [place] MC?BLEA [phone] Vt uri MORIN 044 [facility] OFFICE [facility] 2021-05-06 2021-05-06 Outpatient R DIETER [facility] [id number] Univers 11:00:00 11:00:00 MARTHA rocio [facility] 2021-05-03 2021-05-[address] [facility] 1.2.840.114 [id number] Univers 00:00:00 00:00:00 Godwin [facility]ALTH [id number] it y of [place] [id number] [place] PROFESSIO [phone] Vt dicveena NAL 044 [facility] ONE 2021-05-01 2021-05-[address] [facility] 1.2.840.114 [id number] Univers 14:00:00 14:00:00 Visit Laurie CRANE [id number] ity [place] 4[place]2.[place] [id number] Vt uri [facility] 204 [facility] 2021-05-01 2021-05-01 Out[facility] R [facility] [id number] Univers 14:00:00 11:27:[facility]01 2021-05-01 Out[facility] [id number] Univers 14:00:00 11:27:03 LAURIE [facility] 2021-04-23 2021-04-[address] [facility] 1.2.840.114 [id number] Univers 00:00:00 00:00:00 [place] [facility] [id number] it y [place] [id number] [phone] [facility] [address] 2021-04-18 2021-04-[address] [facility] 1.2.840.114 [id number] Univers 00:00:00 00:00:00 Godwin [facility] [id number] it y of [place] [id number] [place] MC?BLEA [phone] Vt uri MORIN [address] [place] [address] [facility] 2021-04-17 2021-04-17 Outpatient R GUY [facility] [id number] Univers 13:30:00 13:30:00 LAURIE cooley [facility] 2021-04-17 2021-04-17 Outpatient R GUY, [facility] [id number] Univers 13:30:00 13:30:00 LAURIE cooley [facility] 2021-04-10 2021-04-[address] [facility] 1.2.840.114 [id number] Univers 00:00:00 00:00:00 [facility] 350.1.13.10 it y of [place] 4.2.7.2.686 [place] MC?BLEA [phone] [address] [facility] 2021-04-09 2021-04-[address] [facility] 1.2.840.114 [id number] 90 Univers 00:00:00 00:00:00 [facility] 350.1.13.10 it y of [place] 4.2.7.2.686 [place] PROFESSIO [phone] [address] ONE 2021-04-08 2021-04-[address] [facility] 1.2.840.114 [id number] 48 Univers 00:00:00 00:00:00 [facility] 350.1.13.10 it y of [place] 4.2.7.2.686 [place] MC?BLEA [phone] [facility] [address] [place] [address] 2021-04-03 2021-04-[address] [facility] 1.2.840.114 [id number] 25 Univers 00:00:00 00:00:00 [facility] 350.1.13.10 it y of [place] 4.2.7.2.686 [place] PROFESSIO [phone] [facility] NAL [address] [place] [address] ONE 2021-03-29 2021-03-[address] [facility] 1.2.800.158 [id number] Univers 00:00:00 00:00:00 [facility] 350.1.13.10 it y of [place] 4.2.7.2.686 [place] MC?BLEA [phone] [address] [facility] 2021-03-28 2021-03-[address] [facility] 1.2.840.114 [id number] 17 Univers 00:00:00 00:00:00 [facility] 350.1.13.10 it y of [place] 4.2.7.2.686 [place] PROFESSIO [phone] [address] ONE 2021-03-27 2021-03-27 [facility] [id number] Univers 14:30:00 14:30:00 [facility] 2021-03-27 2021-03-27 [facility] R [facility] [id number] Univers 14:30:00 14:30:00 [facility] 2021-03-25 2021-03-25 [facility] 1.2.840.114 [id number] 27 Univers 00:00:00 00:00:00 [facility] 350.1.13.10 it y of [place] 4.2.7.2.686 [place] PROFESSIO [phone] [address] 2021-03-18 2021-03-18 [facility] 1.2.840.114 [id number] 23 Univers 00:00:00 00:00:00 [facility] 350.1.13.10 it y of [place] 4.2.7.2.686 [place] MC?BLEA [phone] [address] [facility] 2021-03-18 2021-03-[address] [facility] 1.2.840.114 [id number] Univers 00:00:00 00:00:00 [facility] 350.1.13.10 it y of [place] 4.2.7.2.686 [place] [phone] [address] 2021-03-18 2021-03-[address] [facility] 1.2.091.805 [id number] 7831 Univers 00:00:00 00:00:00 [facility] 350.1.13.10 it y of [place] 4.2.7.2.686 [place] MC?BLEA [phone] Vt uri [address]ICAL [address] [facility] 2021-03-12 2021-03-12 [facility] 1.2.840.114 [id number] 07 Univers 00:00:00 00:00:00 [facility] 350.1.13.10 it y of [place] 4.2.7.2.686 [place] MC?BLEA [phone] [address] [facility] 2021-03-12 2021-03-12 [facility] 1.2.840.114 [id number] 44 Univers 00:00:00 00:00:00 [facility] 350.1.13.10 it y of [place] 4.2.7.2.686 [place] MC?BLEA [phone] [address] [facility] 2021-03-11 2021-03-11 Outpatient Arm[facility] [id number] Univers 15:15:00 15:39:08 [facility] 2021-03-11 2021-03-[address] [facility] 1.2.840.114 [id number] Univers 15:15:00 15:30:00 Visit [facility] 350.1.13.10 it y of [place] 4.2.7.2.686 [place] MC?BLEA [phone] [address] [facility] 2021-03-11 2021-03-11 Outpatient Armando RITTER [facility] [id number] Univers 15:15:00 15:15:00 [facility] 2021-03-11 2021-03-11 Outpatient Armando RITTER [facility] [id number] Univers 15:15:00 15:15:00 [facility] 2021-03-11 2021-03-11 Outpatient Armando RITTER [facility] [id number] Univers 09:45:00 09:45:00 [facility] 2021-03-11 2021-03-11 BRODERICK Pepe 1.2.840.114 [id number] Univers 00:00:00 00:00:00 Management [employer] VALDES 350.1.13.10 ity of [facility] 4.2.7.2.686 [place] as [id number] [address] 2021-03-06 2021-03-[address] [facility] 1.2.840.114 [id number] 51 Univers 00:00:00 00:00:00 [facility] 350.1.13.10 it y of [place] 4.2.7.2.686 [place] MC?BLEA [phone] [address] MEDICAL OFFICE BUILDING 2021-03-04 2021-03-[address] [facility] 1.2.840.114 [id number] 99 Univers 00:00:00 00:00:00 [facility] 350.1.13.10 [facility] 4.2.7.2.686 [place] PROFESSIO [phone] [address] [facility] ONE 2021-03-04 2021-03-[address] [facility] 1.2.096.069 [id number] Univers 00:00:00 00:00:00 [facility] 350.1.13.10 it y of [place] 4.2.7.2.686 [place] MC?BLEA [phone] [address] [facility] 2021-03-04 2021-03-[address] [facility] 1.2.840.114 [id number] Univers 00:00:00 00:00:00 [facility] 350.1.13.10 it y of [place] 4.2.7.2.686 [place] MC?BLEA [phone] [address] [facility] 2021-03-02 2021-03-[address] [facility] 1.2.840.114 [id number] 06 Univers 00:00:00 00:00:00 [facility] 350.1.13.10 it y of [place] 4.2.7.2.686 [place] PROFESSIO [phone] [address] [facility] ONE 2021-03-01 2021-03-01 [facility] 1.2.840.114 [id number] Univers 00:00:00 00:00:00 [facility] 350.1.13.10 it y of [place] 4.2.7.2.686 [place] PROFESSIO [phone] [address] [facility] ONE 2021-02-27 2021-02-[address] [facility] 1.2.840.114 [id number] Univers 00:00:00 00:00:00 [facility] 350.1.13.10 it y of [place] 4.2.7.2.686 [place] PROFESSIO [phone] [address] 2021-02-26 2021-02-[address] [facility] 1.2.840.114 [id number] 47 Univers 00:00:00 00:00:00 [facility] 350.1.13.10 [facility] 4.2.7.2.686 [place] MC?BLEA [phone] [address] MEDICAL [address] [facility] 2021-02-12 2021-02-12 [facility] 1.2.620.517 [id number] 1556 Univers 00:00:00 00:00:00 [facility] 350.1.13.10 [facility] 4.2.7.2.686 [place] MC?BLEA [phone] [facility] SWET[address] [facility] 2021-02-12 2021-02-12 Telephone [facility] 1.2.843.233 [id number] 3709 Univers 00:00:00 00:00:00 [facility] 350.1.13.10 it [facility] 4.2.7.2.686 [place] MC?BLEA [phone] [address] [facility] 2021-02-12 2021-02-12 Orders Doctor BRODERICK 1.2.840.114 [id number] Univers 00:00:00 00:00:00 Only Unassigned, KEISHA 350.1.13.10 ity of [place] [facility] 4.2.7.2.686 [place] as [phone] [address] 2021-02-11 2021-02-[address] [facility] 1.2.840.114 [id number] 62 Univers 00:00:00 00:00:00 [facility] 350.1.13.10 it y of [place] 4.2.7.2.686 [place] MC?BLEA [phone] [facility] M[facility] [address] [place] [address] [facility] 2021-02-11 2021-02-[address] [facility] 1.2.840.114 [id number] 93 Univers 00:00:00 00:00:00 [facility] 350.1.13.10 it y of [place] 4.2.7.2.686 [place] PROFESSIO [phone] [address] 2021-02-11 2021-02-[address] [facility] 1.2.726.491 [id number] 4200 Univers 00:00:00 00:00:00 [facility] 350.1.13.10 it y of [place] 4.2.7.2.686 [place] MC?BLEA [phone] [facility] [address] 2021-02-07 2021-02-[address] [facility] 1.2.840.114 [id number] 50 Univers 00:00:00 00:00:00 [facility] 350.1.13.10 it y of [place] 4.2.7.2.686 [place] MC?BLEA [phone] [facility] [address] 2021-02-07 2021-02-[address] [facility] 1.2.840.114 [id number] 04 Univers 00:00:00 00:00:00 [facility] 350.1.13.10 it y of [place] 4.2.7.2.686 [place] PROFESSIO [id number] [address] 2021-02-06 2021-02-[address] [facility] 1.2.840.114 [id number] 67 Univers 00:00:00 00:00:00 [facility] 350.1.13.10 it y of [place] 4.2.7.2.686 [place] PROFESSIO [phone] Vt uri [place] [address] [place] [address] [facility] ONE 2021-02-04 2021-02-04 Leif Usama [facility] 1.2.840.114 [id number] Univers 00:00:00 00:00:00 B[facility] 350.1.13.10 it y of [place] 4.2.7.2.686 [place] PROFESSIO [phone] Vt uri [place] [address] [place] [address] [facility] ONE 2021-02-04 2021-02-[address] [facility] 1.2.840.114 [id number] 08 Univers 00:00:00 00:00:00 [facility] 350.1.13.10 it y of [place] 4.2.7.2.686 [place] PROFESSIO [phone] [facility] [place] [address] [place] [address] ONE 2021-02-04 2021-02-[address] [facility] 1.2.823.369 [id number] 5474 Univers 00:00:00 00:00:00 [facility] 350.1.13.10 it y of [place] 4.2.7.2.686 [place] MC?BLEA [phone] Vt uri MORIN [address] [place] [address] [facility] 2021-01-28 2021-01-[address] [facility] 1.2.374.389 [id number] 0089 Univers 00:00:00 00:00:00 [facility] 350.1.13.10 it y of [place] 4.2.7.2.686 [place] MC?BLEA [phone] Vt rui MORIN [address] [place] [address] OFFICE BUILDING 2021-01-28 2021-01-[address] [facility] 1.2.840.114 [id number] Univers 00:00:00 00:00:00 [facility] 350.1.13.10 it y of [place] 4.2.7.2.686 [place] PROFESSIO [phone] [facility] COL[place]TT[place] [address] [place] [address] [facility] ONE 2021-01-28 2021-01-[address] [facility] 1.2.706.673 [id number] 8242 Univers 00:00:00 00:00:00 [facility] 350.1.13.10 it y of [place] 4.2.7.2.686 [place] MC?BLEA [phone] Vt uri MORIN [address] [place] [address] MEDICAL OFFICE BUILDING 2021-01-23 2021-01-[address] [facility] 1.2.293.433 [id number] 3430 Univers 00:00:00 00:00:00 [facility] 350.1.13.10 it y of [place] 4.2.7.2.686 [place] MC?BLEA [phone] Vt uri MORIN [address] [place] [address] OFFICE BUILDING 2021-01-21 2021-01-[address] [facility] 1.2.348.308 [id number] 3443 Univers 00:00:00 00:00:00 [facility] 350.1.13.10 it y of [place] 4.2.7.2.686 [place] MC?BLEA [phone] Vt uri MORIN [address] [place] [address] [facility] 2021-01-18 2021-01-[address] [facility] 1.2.840.114 [id number] Univers 00:00:00 00:00:00 [facility] 350.1.13.10 it y of [place] 4.2.7.2.686 [place] MC?BLEA [phone] Vt uri MORIN [address] [place] [address] [facility] 2021-01-17 2021-01-[address] [place] [address] [facility] 1.2.882.129 [id number] 8906 Univers 00:00:00 00:00:00 [facility] 350.1.13.10 it y of [place] 4.2.7.2.686 [place] MC?BLEA [phone] Vt uri MORIN [address] [place] [address] [facility] 2021-01-16 2021-01-16 [facility] 1.2.840.114 [id number] Univers 00:00:00 00:00:00 [facility] 350.1.13.10 it y of [place] 4.2.7.2.686 [place] Professio [phone] Vt uri [place] [address] [place] [address] Office [facility] One 2021-01-15 2021-01-15 [employer] 1.2.840.1 14 [id number] Univers 09:12:06 09:27:06 Visit [facility] Ritter [facility] 350.1.13.10 ity of [place] 4.2.7.2.686 [place] Mc?Blea [phone] [facility] swetha [address] [facility] Office [facility] 2021-01-15 2021-01-15 Outpatient R JACOB [facility] [id number] [facility] 09:15:00 09:15:00 GODWIN itrocio [facility] 2021-01-15 2021-01-[address] [facility] 1.2.840.114 [id number] Univers 08:32:22 08:47:22 Visit [facility] 350.1.13.10 it y of [place] 4.2.7.2.686 [place] Mc?Blea [phone] [address] Office [facility] 2021-01-15 2021-01-[address] [facility] 1.2.840.114 [id number] Univers 00:00:00 00:00:00 [facility] 350.1.13.10 it y of [place] 4.2.7.2.686 [place] Mc?Blea [phone] [address] Office [facility] 2021-01-11 2021-01-[address] [facility] 1.2.202.964 [id number] Univers 00:00:00 00:00:00 [facility] 350.1.13.10 it y of [place] 4.2.7.2.686 [place] Professio [phone] [address] One 2021-01-09 2021-01-[address] [facility] 1.2.840.114 [id number] 69 Univers 00:00:00 00:00:00 [facility] 350.1.13.10 it y of [place] 4.2.7.2.686 [place] Professio [phone] [address] Office [facility] One 2021-01-07 2021-01-[address] [facility] 1.2.771.631 [id number] 2300 Univers 00:00:00 00:00:00 [facility] 350.1.13.10 it y of [place] 4.2.7.2.686 [place] Mc?Blea [phone] Vt uri morin [address] [place] [address] Office [facility] 2021-01-01 2021-01-01 [facility] 1.2.840.114 [id number] Univers 00:00:00 00:00:00 [facility] 350.1.13.10 it y of [place] 4.2.7.2.686 [place] Professio [phone] [facility] [place] [address] [place] [address] One 2020-12-28 2020-12-28 [facility] 1.2.840.114 [id number] 56 Univers 00:00:00 00:00:00 [facility] 350.1.13.10 it y of [place] 4.2.7.2.686 [place] Mc?Blea [phone] Vt uri morin [address] [place] [address] Office [facility] 2020-12-24 2020-12-24 [facility] 1.2.840.114 [id number] Univers 00:00:00 00:00:00 [facility] 350.1.13.10 it y of [place] 4.2.7.2.686 [place] Mc?Blea [phone] [facility] ronit [address] [place] [address] 2020-12-22 2020-12-22 [facility] 1.2.840.114 [id number] Univers 00:00:00 00:00:00 [facility] 350.1.13.10 it y of [place] 4.2.7.2.686 [place] Professio [phone] [facility] collette [address] [place] [address] One 2020-12-17 2020-12-17 Telephone BRODERICK Cool 1.2.887.497 [id number] 6912 Univers 00:00:00 00:00:00 Mariah VALDES 350.1.13.10 ity of [facility] 4.2.7.2.686 [place] as [phone] [address] 2020-12-14 2020-12-[address] [facility] 1.2.840.114 [id number] 27 Univers 00:00:00 00:00:00 [facility] 350.1.13.10 it y of [place] 4.2.7.2.686 [place] Mc?Blea [phone] Vt dicveena morin [address] [facility] 2020-12-14 2020-12-14 [facility] Forrester [facility] 1.2.840.114 [id number] 750 Univers 00:00:00 00:00:00 [facility] 350.1.13.10 it y of [place] 4.2.7.2.686 [place] Professio [phone] Vt uri nal [address] [place] [address] Office [facility] One 2020-12-13 2020-12-13 [facility] 1.2.840.114 [id number] Univers 00:00:00 00:00:00 [facility] 350.1.13.10 it y of [place] 4.2.7.2.686 [place] Mc?Blea [phone] Vt dicct ronit [address] [place] [address] Medical Office Building 2020-12-12 2020-12-12 [facility] 1.2.840.114 [id number] 10 Univers 00:00:00 00:00:00 [facility] 350.1.13.10 it y of [place] 4.2.7.2.686 [place] Mc?Blea [phone] Vt dicveena morin [address] [place] [address] Office Building 2020-12-11 2020-12-[address] [facility] 1.2.882.286 [id number] 0769 Univers 00:00:00 00:00:00 [facility] 350.1.13.10 it y of [place] 4.2.7.2.686 [place] Mc?Blea [phone] Vt dicct swetha[address] Medical Office Building 2020-12-10 2020-12-[address] [facility] 1.2.840.114 [id number] 17 Univers 00:00:00 00:00:00 [facility] 350.1.13.10 it y of [place] 4[place]2.7.2.[place] [phone] Vt dical [address] 2020-12-08 2020-12-[address] [facility] 1.2.840.114 [id number] 52 Univers 00:00:00 00:00:00 [facility] 350.1.13.10 it y of [place] 4.2.7.2.686 [place]IE[place] [phone] [facility] [address] 2020-12-07 2020-12-[address] [facility] 1.2.209.813 [id number] 4239 Univers 00:00:00 00:00:00 [facility] 350.1.13.10 it y of [place] 4.2.7.2.686 [place] Mc?Blea [phone] [address] Office Building 2020-12-03 2020-12-[address] [facility] 1.2.840.114 [id number] 15 Univers 00:00:00 00:00:00 [facility] 350.1.13.10 it y of [place] 4.2.7.2.686 [place] Professio [phone] [address] Office [facility] One 2020-11-28 2020-11-28 Outpatient [facility] [id number] Univers 09:00:00 09:00:00 GODWIN ity [facility] 2020-11-28 2020-11-[address] [facility] 1.2.840.114 [id number] 89 Univers 00:00:00 00:00:00 [facility] 350.1.13.10 it y of [place] 4.2.7.2.686 [place] Professio [phone] [address] Office [facility] One 2020-11-28 2020-11-28 [facility] 1.2.840.114 [id number] 10 Univers 00:00:00 00:00:00 [facility] 350.1.13.10 it y of [place] 4.2.7.2.686 [place] Professio [phone] [address] Office [facility] One 2020-11-20 2020-11-[address] [facility] 1.2.840.114 [id number] 56 Univers 09:03:13 09:18:13 Visit [facility] 350.1.13.10 it y of [place] 4.2.7.2.686 [place] Mc?Blea [phone] [address] Office [facility] 2020-11-20 2020-11-20 Outpatient R JACOB [facility] [id number] Univers 08:45:00 08:45:00 GODWIN rocio [facility] 2020-11-19 2020-11-19 Outpatient [facility] [id number] Univers 09:30:00 09:30:00 GODWIN [facility] 2020-11-16 2020-11-[address] [facility] 1.2.666.673 [id number] Univers 00:00:00 00:00:00 [facility] 350.1.13.10 it y of [place] 4.2.7.2.686 [place] Mc?Blea [phone] [address] Office [facility] 2020-11-06 2020-11-06 Orders Doctor BRODERICK 1.2.840.114 [id number] Univers 00:00:00 00:00:00 Only Unassigned, KEISHA 350.1.13.10 ity of [place] [facility] 4.2.7.2.686 [place] as [phone] [address] 2020-11-01 2020-11-[address] [facility] 1.2.840.114 [id number] 12 Univers 00:00:00 00:00:00 [facility] 350.1.13.10 it y of [place] 4.2.7.2.686 [place] Professio [phone] [address] Office [facility] One 2020-10-26 2020-10-26 Outpatient Armando VALERIO [facility] [id number] Univers 11:30:00 11:30:00 GUIDO lenora [facility] 2020-10-23 2020-10-[address] [facility] 1.2.840.114 [id number] Univers 00:00:00 00:00:00 [facility] [id number] it y of [place] 4.2.7.2.686 [place] [phone] [facility] nal [address] [place] [address] Office [facility] One 2020-10-22 2020-10-[address] [facility] 1.2.840.114 [id number] Univers 00:00:00 00:00:00 [facility] [id number] it y of [place] 4.2.7.2.686 [place] [phone] [address] One 2020-10-22 2020-10-[address] [facility] [id number] Univers 00:00:00 00:00:00 [facility] [id number] it y of [place] [id number] [place] [phone] [address] One 2020-10-19 2020-10-[address] [facility] 1.2.840.114 [id number] Univers 00:00:00 00:00:00 [facility] [id number] it [place] 4[place]7.2.[place] [phone] [address] 2020-10-11 2020-10-11 Outpatient R JACOB [facility] [id number] Univers 00:00:00 00:00:00 GODWIN cooley [facility] 2020-10-09 2020-10-[address] [facility] 1.2.840.114 [id number] Univers 00:00:00 00:00:00 [facility] [id number] [place] 4[place]2.[place] [phone] [address] 2020-10-05 2020-10-[address] [facility] 1.2.840.114 [id number] Univers 00:00:00 00:00:00 [facility] [id number] it y [place] 4.2.7.2.686 [place] [phone] [address] Office [facility] One 2020-10-01 2020-10-[address] [facility] 1.2.840.114 [id number] Univers 00:00:00 00:00:00 [facility] 350.1.13.10 it y [place] 4.2.7.2.686 [place] [phone] Vt [address] Office [facility] 2020-10-01 2020-10-[address] [facility] 1.2.840.114 [id number] Univers 00:00:00 00:00:00 [facility] 350.1.13.10 it y [place] 4.2.7.2.686 [place] [phone] Vt dicct nal [address] [place] [address] Office [facility] One 2020-10-01 2020-10-[address] [facility] [id number] Univers 00:00:00 00:00:00 [facility] 350.1.13.10 it y [place] 4.2.7.2.686 [place] [phone] [address] Office [facility] 2020-09-27 2020-09-27 Office JacobCHRISTUS [facility] 1.2.840.114 [id number] Univers 09:26:54 09:48:24 Visit [facility] 350.1.13.10 it y of [place] 4.2.7.2.686 [place] Professio [phone] [address] Office [facility] One 2020-09-27 2020-09-27 Outpatient R JACOB [facility] [id number] Univers 09:15:00 09:15:00 [facility] 2020-09-24 2020-09-[address] [facility] 1.2.840.114 [id number] Univers 00:00:00 00:00:00 [place] PRIMARY 350.1.13.10 it [place] [phone] [address] 2020-09-12 2020-09-12 Outpatient R LEAH [facility] [id number] Univers 11:30:00 11:30:00 KAVON cooley [facility] 2020-09-04 2020-09-[address] [facility] 1.2.840.114 [id number] Univers 00:00:00 00:00:00 [facility] 350.1.13.10 it y of [place] 4.2.7.2.686 [place] Profess[place] [phone] Vt dical nal [address] Building One 2020-08-31 2020-08-[address] [facility] 1.2.840.114 [id number] Univers 00:00:00 00:00:00 [facility] 350.1.13.10 it y of [place] 4.2.7.2.686 [place] [phone] Vt dical nal [address] Office [facility] One 2020-08-29 2020-08-[address] [facility] 1.2.840.114 [id number] Univers 00:00:00 00:00:00 [place] PRIMARY 350.1.13.10 it [place] [phone] [facility] [address] 2020-08-25 2020-08-[address] [facility] 1.2.840.114 [id number] 26 Univers 00:00:00 00:00:00 [facility] 350.1.13.10 it y of [place] 4.2.7.2.686 [place] Profess[place] [phone] Vt dical nal [address] Building One 2020-08-21 2020-08-[address] [facility] 1.2.840.114 [id number] 99 Univers 00:00:00 00:00:00 [facility] 350.1.13.10 it y of [place] 4.2.7.2.686 [place] Profess[place] [phone] Vt dical nal [address] One 2020-08-13 2020-08-[address] [facility] 1.2.840.114 [id number] 88 Univers 00:00:00 00:00:00 [facility] 350.1.13.10 it y of [place] 4.2.7.2.686 [place] Profess[place] [phone] Vt dical nal [address] Building One 2020-08-02 2020-08-02 Telephone Jacob [facility] 1.2.034.181 [id number] Univers 00:00:00 00:00:00 [facility] 350.1.13.10 it y of [place] 4.2.7.2.686 [place] Profess[place] [phone] Vt dical nal [address] Office [facility] One 2020-08-02 2020-08-[address] [facility] 1.2.840.114 [id number] 96 Univers 00:00:00 00:00:00 [facility] 350.1.13.10 it y of [place] 4.2.7.2.686 [place] Profess[place] [phone] Vt dical nal [address] Office [facility] One 2020-08-02 2020-08-02 Reflennie Verma [facility] 1.2.840.114 [id number] Univers 00:00:00 00:00:00 [place] PRIMARY 350.1.13.10 it y of C[place] 4[place]2.[place]2.[place] [phone] [facility] [address] 2020-08-01 2020-08-01 Outpatient R JACOB [facility] [id number] Univers 14:30:00 14:30:00 GODWIN ity [facility] 2020-08-01 2020-08-[address] [facility] 1.2.840.114 [id number] Univers 14:13:17 14:28:17 Visit [facility] 350.1.13.10 it y of [place] 4.2.7.2.686 [place] Profess[place] [phone] Vt dical nal [address] Office [facility] One 2020-07-31 2020-07-[address] [facility] 1.2.185.060 [id number] Univers 00:00:00 00:00:00 [facility] 350.1.13.10 it y of [place] 4.2.7.2.686 [place] as Professio [phone] Vt dical nal [address] Office [facility] One 2020-07-31 2020-07-[address] [facility] 1.2.840.114 [id number] Univers 00:00:00 00:00:00 [place] [facility] 350.1.13.10 it y of C[place] 4[place]2.7.2.[place] [phone] Vt dical [address] 2020-07-26 2020-07-[address] [facility] 1.2.840.114 [id number] 44 Univers 00:00:00 00:00:00 [facility] 350.1.13.10 it y of [place] 4.2.7.2.686 [place] Profess[place] [phone] Vt dicct nal [address] Office [facility] 2020-07-23 2020-07-[address] [facility] 1.2.087.517 [id number] Univers 00:00:00 00:00:00 [facility] 350.1.13.10 it y of [place] 4.2.7.2.686 [place] Profess[place] [phone] Vt dicct nal [address] Office [facility] One 2020-07-18 2020-07-[address] [facility] 1.2.840.114 [id number] 98 Univers 00:00:00 00:00:00 [facility] 350.1.13.10 it y of [place] 4.2.7.2.686 [place] [phone] Vt dicct nal 044 [facility] One 2020-07-16 2020-07-[address] [facility] 1.2.840.114 [id number] 80 Univers 00:00:00 00:00:00 [facility] 350.1.13.10 it y of [place] 4.2.7.2.686 [place] Profess[place] [phone] Vt dical nal [address] Office [facility] One 2020-07-13 2020-07-13 [facility] 1.2.995.638 [id number] Univers 00:00:00 00:00:00 Godwin Y HEALTH 350.1.13.10 i ty of CLINICS [place]2.[place].2.[place] [phone] [facility] [address] 2020-07-11 2020-07-11 Telephone Jacob [facility] 1.2.198.828 [id number] Univers 00:00:00 00:00:00 Godwin [facility] 350.1.13.10 it y of [place] 4.2.7.2.686 [place] Profess[place] [phone] [facility] nal [address] [place] [address] Office [facility] One 2020-07-06 2020-07-[address] [facility] 1.2.840.114 [id number] Univers 00:00:00 00:00:00 Godwin [facility] 350.1.13.10 it y of [place] 4.2.7.2.686 [place] Profess[place] [phone] [facility] nal [address] [place] [address] Office [facility] One 2020-07-05 2020-07-05 [employer]hip [employer], Adc Fam Pob I [facility] 1.2. 840.114 [id number] Univers 13:01:13 15:07:38 Visit Godwin Ritter [facility] 350.1.13.10 ity of [place] 4.2.7.2.686 [place] Profess[place] [phone] [address] Office [facility] One 2020-07-05 2020-07-[address] [facility] 1.2.840.114 [id number] [facility] 12:37:35 12:52:35 Visit Godwin [facility] 350.1.13.10 it y of [place] 4.2.7.2.686 [place] Professio [phone] [address] One 2020-07-05 2020-07-05 Outpatient R JACOB [facility] [id number] Univers 12:15:00 12:15:00 GODWIN ity of [facility] 2020-07-04 2020-07-[address] [facility] 1.2.350.760 [id number] Univers 00:00:00 00:00:00 [facility] 350.1.13.10 it y of [place] 4.2.7.2.686 [place] Professio [phone] [facility] nal [address] [place] [address] Office Building One 2020-07-03 2020-07-[address] [facility] 1.2.840.114 [id number] 66 Univers 00:00:00 00:00:00 [facility] 350.1.13.10 it y of [place] 4.2.7.2.686 [place] Profess[place] [phone] Vt dical nal [address] Office [facility] One 2020-06-29 2020-06-29 Orders Doctor BRODERICK 1.2.840.114 [id number] Univers 00:00:00 00:00:00 Only Unassigned, KEISHA 350.1.13.10 ity of [place] [facility] 4.2.7.2.686 [place] [phone] [facility] [address] 2020-06-27 2020-06-27 Telephone BRODERICK Hamm 1.2.616.578 9016 [facility] Univers 00:00:00 00:00:00 Klaudia VALDES 350.1.13.10 i ty of [facility] 4.2.7.2.686 [place] [phone] [facility] [address] 2020-06-27 2020-06-27 Telephone Jacob VASMITA 1.2.074.810 [id number] Univers 00:00:00 00:00:00 [place] 350.1.13.10 i ty of [place]2.7.2.[place] [phone] Vt dical nal 044 [facility] 2020-06-25 2020-06-25 Leif Verma VAS[facility] 1.2.840.114 [id number] Univers 00:00:00 00:00:00 [place] PRIMARY 350.1.13.10 it y of C[place] 4.2.7.2.[place] [phone] Vt dical [address] 2020-06-25 2020-06-25 Refill Jacob VASMITA 1.2.840.114 [id number] Univers 00:00:00 00:00:00 [facility] 350.1.13.10 it y of [place] 4.2.7.2.686 [place] Profess[place] [phone] Vt dical nal [address] Office [facility] One 2020-06-19 2020-06-19 Telephone Jacob VASMITA 1.2.109.903 [id number] 2346 Univers 00:00:00 00:00:00 [facility] 350.1.13.10 it y of [place] 4.2.7.2.686 [place] Professio [phone] Vt dical nal [address] Building One 2020-06-19 2020-06-19 Leif Ritter [facility] 1.2.840.114 [id number] 44 Univers 00:00:00 00:00:00 [facility] 350.1.13.10 it y of [place] 4.2.7.2.686 [place] Profess[place] [phone] Vt dical nal [address] Building One 2020-06-18 2020-06-18 Leif Verma [facility] 1.2.840.114 [id number] 90 Univers 00:00:00 00:00:00 [place] PRIMARY 350.1.13.10 it y of CARE 4.2.7.2.[place] [phone] Vt dical [address] 2020-06-15 2020-06-[address] [facility] 1.2.840.114 [id number] 69 Univers 00:00:00 00:00:00 [facility] 350.1.13.10 it y of [place] 4.2.7.2.686 [place] Professio [phone] Vt dical nal [address] Building One 2020-06-15 2020-06-[address] [facility] 1.2.840.114 [id number] 52 Univers 00:00:00 00:00:00 [facility] 350.1.13.10 it y of [place] 4.2.7.2.686 [place] Professio [phone] Vt dical nal [address] Building One 2020-06-14 2020-06-14 Leif Ritter [facility] 1.2.840.114 [id number] 38 Univers 00:00:00 00:00:00 [facility] 350.1.13.10 it y of [place] 4.2.7.2.686 [place] Professio [phone] Vt dical nal [address] Building One 2020-06-12 2020-06-[address] [facility] 1.2.840.114 [id number] 76 Univers 00:00:00 00:00:00 [facility] 350.1.13.10 it y of [place] 4.2.7.2.686 [place] Professio [phone] [address] One 2020-06-05 2020-06-05 MINAL [place] 1.2.889.451 [id number] 8455 Univers 00:00:00 00:00:00 [facility] 350.1.13.10 it y of [place] 4.2.7.2.686 [place] Professio [phone] [address] 2020-06-05 2020-06-05 Refill Jacob [facility] 1.2.840.114 [id number] Univers 00:00:00 00:00:00 [facility] 350.1.13.10 it y of [place] 4.2.7.2.686 [place] Professio [phone] [address] One 2020-06-05 2020-06-05 Orders Doctor BRODERICK 1.2.840.114 [id number] Univers 00:00:00 00:00:00 Only Unassigned, KEISHA 350.1.13.10 ity of [place] [facility] 4.2.7.2.686 [place] [phone] [address] 2020-06-04 2020-06-04 Refill Jacob [facility] 1.2.840.114 [id number] Univers 00:00:00 00:00:00 [facility] 350.1.13.10 it y of [place] 4.2.7.2.686 [place] Professio [phone] [address] One 2020-05-22 2020-05-22 Reflennie Ritter [facility] 1.2.840.114 [id number] 93 Univers 00:00:00 00:00:00 [facility] 350.1.13.10 it y of [place] 4.2.7.2.686 [place] Professio [phone] [address] One 2020-05-21 2020-05-21 Leif Verma [facility] 1.2.840.114 [id number] 16 Univers 00:00:00 00:00:00 [place] [facility]IMARY 350.1.13.10 it y of C[place] 4[place]2.7.2.[place] [phone] Vt uri [address] 2020-05-14 2020-05-[address] [facility] 1.2.840.114 [id number] 77 Univers 00:00:00 00:00:00 [facility] 350.1.13.10 it y of [place] 4.2.7.2.686 [place] Professio [phone] [address] 2020-05-11 2020-05-[address] [facility] 1.2.840.114 [id number] 12 Univers 00:00:00 00:00:00 [facility] 350.1.13.10 it y of [place] 4.2.7.2.686 [place] Professio [phone] [facility] nal [address] [place] [address] 2020-05-10 2020-05-[address] [facility] 1.2.840.114 [id number] 55 Univers 00:00:00 00:00:00 [facility] 350.1.13.10 i ty of [place]2.[place].2.[place] [phone] Vt dicct nal 044 [facility] 2020-05-09 2020-05-[address] [facility] 1.2.840.114 [id number] 98 Univers 00:00:00 00:00:00 [facility] 350.1.13.10 it y of [place] 4.2.7.2.686 [place] Professio [phone] [address] Office [facility] 2020-05-03 2020-05-03 Leif Ritter [facility] 1.2.064.073 [id number] Univers 00:00:00 00:00:00 Godwin Y HEALTH 350.1.13.10 i ty of [facility] 4.2.7.2.[place] [phone] [facility] [address] 2020-05-01 2020-05-01 Leif Ritter [facility] 1.2.840.114 [id number] Univers 00:00:00 00:00:00 [facility] 350.1.13.10 it y of [place] 4.2.7.2.686 [place] Professio [phone] Vt dical nal [address] Building One 2020-04-26 2020-04-[address] [facility] 1.2.840.114 [id number] 68 Univers 00:00:00 00:00:00 [facility] 350.1.13.10 it y of [place] 4.2.7.2.686 [place] Professio [phone] Vt dical nal [address] Building One 2020-04-24 2020-04-[address] [facility] 1.2.840.114 [id number] 59 Univers 00:00:00 00:00:00 [facility] 350.1.13.10 it y of [place] 4.2.7.2.686 [place] Professio [phone] Vt dical nal [address] Office [facility] One 2020-04-19 2020-04-[address] [facility] 1.2.840.114 [id number] Univers 00:00:00 00:00:00 [facility] 350.1.13.10 it y of [place] 4.2.7.2.686 [place] Professio [phone] Vt dical nal [address] Building One 2020-04-16 2020-04-[address] [facility] 1.2.678.520 [id number] [id number] Univers 00:00:00 00:00:00 [facility] 350.1.13.10 it y of [place] 4.2.7.2.686 [place] Professio [phone] Vt dical nal [address] Building One 2020-04-12 2020-04-[address] [facility] 1.2.840.114 [id number] Univers 00:00:00 00:00:00 [facility] 350.1.13.10 it y of [place] 4.2.7.2.686 [place] Professio [phone] Vt dical nal [address] [place] [address] One 2020-04-11 2020-04-[address] [facility] 1.2.840.114 [id number] 09 Univers 00:00:00 00:00:00 [facility] 350.1.13.10 it y of [place] 4.2.7.2.686 [place] Professio [phone] [facility] nal [address] [place] [address] One 2020-04-04 2020-04-[address] [place] [address] [facility] 1.2.842.819 [id number] Univers 00:00:00 00:00:00 [facility] 350.1.13.10 it y of [place] 4.2.7.2.686 [place] Professio [phone] [address] One 2020-04-03 2020-04-[address] [facility] 1.2.840.114 [id number] 76 Univers 00:00:00 00:00:00 [facility] 350.1.13.10 it y of [place] 4.2.7.2.686 [place] Professio [phone] [address] One 2020-04-02 2020-04-02 Orders Doctor BRODERICK 1.2.840.114 [id number] Univers 00:00:00 00:00:00 Only Unassigned, KEISHA 350.1.13.10 ity of [place] [facility] 4.2.7.2.686 [place] [phone] [address] 2020-03-31 2020-03-[address] [facility] 1.2.840.114 [id number] Univers 00:00:00 00:00:00 [facility] 350.1.13.10 it y of [place] 4.2.7.2.686 [place] Professio [phone] [facility] nal [address] [place] [address] One 2020-03-26 2020-03-[address] [facility] 1.2.840.114 [id number] 28 Univers 00:00:00 00:00:00 [facility] 350.1.13.10 it y of [place] 4.2.7.2.686 [place] Professio [phone] Me dical nal [address] Office Building One 2020-03-21 2020-03-21 Reflennie Ritter [facility] 1.2.840.114 [id number] 26 Univers 00:00:00 00:00:00 [facility] 350.1.13.10 it y of [place] 4.2.7.2.686 [place] Professio [phone] Vt dical nal [address] Office Building One 2020-03-17 2020-03-[address] [facility] 1.2.840.114 [id number] 98 Univers 00:00:00 00:00:00 [facility] 350.1.13.10 it y of [place] 4.2.7.2.686 [place] Professio [phone] Vt dical nal [address] [place] [address] Office Building One 2020-03-17 2020-03-[address] [facility] 1.2.840.114 [id number] 26 Univers 00:00:00 00:00:00 [facility] 350.1.13.10 it y of [place] 4.2.7.2.686 [place] Professio [phone] Vt dical nal [address] [place] [address] Office Building One 2020-03-14 2020-03-[address] [facility] 1.2.840.114 [id number] 79 Univers 00:00:00 00:00:00 [facility] 350.1.13.10 it y of [place] 4.2.7.2.686 [place] Professio [phone] Vt dical nal [address] [place] [address] Office Building One 2020-03-13 2020-03-[address] [place] [address] [facility] 1.2.065.554 [id number] [id number] Univers 00:00:00 00:00:00 [facility] 350.1.13.10 it y of [place] 4.2.7.2.686 [place] Professio [phone] Vt dical nal [address] [place] [address] Office Building One 2020-03-07 2020-03-07 Orders Doctor BRODERICK 1.2.840.114 [id number] Univers 00:00:00 00:00:00 Only Unassigned, KEISHA 350.1.13.10 ity of [place] [facility] 4.2.7.2.686 [place] [phone] [address] 2020-02-24 2020-02-24 Outpatient R LUCI [facility] [id number] Univers 11:00:00 11:00:00 TUCKER ity of [facility] 2020-02-24 2020-02-[address] [facility] 1.2.840.114 [id number] 73 Univers 00:00:00 00:00:00 [facility] 350.1.13.10 it y of [place] 4.2.7.2.686 [place] Professio [phone] Vt dical nal [address] Office Building One 2020-02-21 2020-02-[address] [facility] 1.2.605.502 [id number] Univers 00:00:00 00:00:00 [facility] 350.1.13.10 it y of [place] 4.2.7.2.686 [place] Professio [phone] Vt dical nal [address] Office [facility] One 2020-02-21 2020-02-[address] [facility] 1.2.840.114 [id number] Univers 00:00:00 00:00:00 [facility] 350.1.13.10 it y of [place] 4.2.7.2.686 [place] Professio [phone] Vt dical nal [address] Office [facility] One 2020-02-14 2020-02-[address] [facility] 1.2.840.114 [id number] 70 Univers 00:00:00 00:00:00 [facility] 350.1.13.10 it y of [place] 4.2.7.2.686 [place] Professio [phone] Vt dical nal [address] Office [facility] One 2020-02-13 2020-02-13 Telephone Nurse, Kyle [facility] 1.2.840.114 [id number] Univers 00:00:00 00:00:00 [facility] 350.1.13.10 ity of Surgical 4.2.7.2.686 [place] Specialti [phone] Vt dical es 370 [facility] 2020-02-11 2020-02-11 Urgent Provider, Kyle [facility] 1.2.840.114 [id number] Univers 11:09:47 11:29:47 Care Jose Cassia [facility] 350.1.13.10 ity of [place] 4.2.7.2.686 [place] Professio [phone] [address] One 2020-02-11 2020-02-11 Outpatient R [facility] [id number] Univers 11:00:00 11:00:00 ity [facility] 2020-02-07 2020-02-07 Outpatient R LUCI [facility] [id number] Univers 09:30:00 09:30:00 [facility] 2020-02-03 2020-02-[address] [facility] 1.2.840.114 [id number] Univers 00:00:00 00:00:00 God[place]estela [place] 350.1.13.10 i ty [place] [phone] [address] 2020-01-30 2020-01-[address] [facility] 1.2.840.114 [id number] Univers 09:57:21 10:20:55 Visit [facility] 350.1.13.10 it y of [place] 4.2.7.2.686 [place] Professio [phone] [address] 2020-01-30 2020-01-30 [facility] [id number] Univers 09:45:00 09:45:00 GODWIN rocio [facility] 2020-01-26 2020-01-[address] [facility] 1.2.840.114 [id number] Univers 00:00:00 00:00:00 [facility] 350.1.13.10 it y of [place] 4.2.7.2.686 [place] Professio [phone] [address] 2020-01-16 2020-01-[address] [facility] 1.2.840.114 [id number] 73 Univers 00:00:00 00:00:00 [facility] 350.1.13.10 it y of [place] 4.2.7.2.686 [place] Professio [phone] [address] 2020-01-05 2020-01-05 Outpatient R JACOB [facility] [id number] Univers 12:30:00 12:30:00 GODWIN rocio [facility] 2020-01-02 2020-01-02 Reflennie Ritter [facility] 1.2.840.114 [id number] Univers 00:00:00 00:00:00 [facility] 350.1.13.10 it y of [place] 4.2.7.2.686 [place] [phone] [address] 2019-12-23 2019-12-23 Reflennie Ritter [facility] 1.2.840.114 [id number] Univers 00:00:00 00:00:00 [facility] 350.1.13.10 it y [place] 4.2.7.2.686 [place] [phone] [address] 2019-12-20 2019-12-20 Office Michelle GREGORIO ..840.114 [id number] Univers 15:08:19 16:11:14 Visit Josiah [facility] 350.1.13.10 i [place] [phone] [address] 2019-12-20 2019-12-20 Outpatient JOSIAH DAWN [facility] [id number] Univers 15:00:00 15:00:00 JOSIAH MARTINEZ [facility] 2019-12-20 2019-12-20 Telephone Jacob [facility] [id number] Univers 00:00:00 00:00:00 [facility] 350.1.13.10 it y of [place] 4.2.7.2.686 [place] [phone] [address] Office [facility] 2019-12-15 2019-12-15 Telephone Beth GREGORIO 1.2.840.114 [id number] Univers 00:00:00 00:00:00 Jerad Y HE[facility] 350.1.13.10 it[place] [phone] [facility] [address] 2019-12-12 2019-12-[address] [facility] 1.2.840.114 [id number] Univers 00:00:00 00:00:00 [facility] 350.1.13.10 it y of [place] 4.2.7.2.686 [place] [phone] Vt dical nal [address] [employer] 2019-12-06 2019-12-[address] [facility] [id number] Univers 00:00:00 00:00:00 [facility] 350.1.13.10 [phone] [facility] [address] 2019-12-06 2019-12-[address] [facility] [id number] [id number] Univers 00:00:00 00:00:00 [facility] 350.1.13.10 it y [place] 4.2.7.2.686 [place] [phone] Vt dical nal [address] [facility] 2019-12-05 2019-12-05 [facility] 1.2.840.114 [id number] Univers 00:00:00 00:00:00 [facility] 350.1.13.10 it y [place] 4.2.7.2.686 [place] [phone] Vt dical nal [address] [facility] One 2019-12-05 2019-12-05 [facility] 1.2.840.114 [id number] Univers 00:00:00 00:00:00 [facility] 350.1.13.10 it y of [place] 4.2.7.2.686 [place] Profess[place] [phone] Vt dical nal [address] [facility] One 2019-12-02 2019-12-[address] [facility] 1.2.840.114 [id number] Univers 00:00:00 00:00:00 [facility] 350.1.13.10 it y of [place] 4.2.7.2.686 [place] Profess[place] [phone] Vt dical nal [address] Building One 2019-11-29 2019-11-[address] [facility] [facility] 1.2.840.114 [id number] Univers 00:00:00 00:00:00 [facility] 350.1.13.10 it y of [place] 4.2.7.2.686 [place] [phone] Vt dical nal [address] [facility] One 2019-11-29 2019-11-[address] [facility] 1.2.840.114 [id number] Univers 00:00:00 00:00:00 [facility] 350.1.13.10 it y of [place] 4.2.7.2.686 [place] Profess[place] [phone] [facility] nal [address] [facility] One 2019-11-10 2019-11-10 Telephone Luci [facility] 1.2.734.494 [id number] Univers 00:00:00 00:00:00 [place] PRIMARY 350.1.13.10 it [place] [phone] [facility] [address] 2019-11-09 2019-11-09 Membership Solicitor Pcp-Lab [facility] 1.2.840.114 [id number] [facility] 10:33:08 10:43:08 Visit Verma [place] PRIMARY 350.1.13.10 ity [place] [phone] [facility] [address] 2019-11-09 2019-11-09 Office Luci [facility] 1.2.840.114 [id number] Univers 09:52:18 10:40:36 Visit Tucker PRIMARY 350.1.13.10 it y [place] [phone] [facility] [address] 2019-11-09 2019-11-09 Outpatient R LUCI [facility] [id number] Univers 09:30:00 09:30:00 TUCKER ity [facility] 2019-11-07 2019-11-07 Outpatient R LUCI [facility] [id number] Univers 14:30:00 14:30:00 TUCKER ity [facility] 2019-11-07 2019-11-[address] [facility] [facility] 1.2.840.114 [id number] Univers 00:00:00 00:00:00 [place] PRIMARY 350.1.13.10 it [place] [phone] [address] 2019-11-07 2019-11-[address] [facility] 1.2.840.114 [id number] Univers 00:00:00 00:00:00 [facility] 350.1.13.10 it y of [place] 4.2.7.2.686 [place] [phone] [address] Office [facility] 2019-10-10 2019-10-[address] [facility] 1.2.840.114 [id number] Univers 00:00:00 00:00:00 [facility] 350.1.13.10 it y of [place] 4.2.7.2.686 [place] [phone] [address] Office Building One 2019-10-10 2019-10-[address] [facility] 1.2.373.694 [id number] Univers 00:00:00 00:00:00 [facility] 350.1.13.10 it y of [place] 4.2.7.2.686 [place] [phone] [address] Office Building One 2019-10-05 2019-10-05 Outpatient R LUCI [facility] [id number] Univers 15:00:00 15:00:00 TUCKER ity [facility] 2019-10-05 2019-10-[address] [facility] 1.2.840.114 [id number] Univers 00:00:00 00:00:00 [facility] 350.1.13.10 it y of [place] 4.2.7.2.686 [place] [phone] [address] Office Building One 2019-10-03 2019-10-03 Outpatient R BETH [facility] [id number] Univers 15:00:00 15:00:00 FRANCISCO JAVIER ity [facility] 2019-10-03 2019-10-03 [facility] 1.2.840.114 [id number] Univers 00:00:00 00:00:00 Godwin PRIMARY 350.1.13.10 it [place] [phone] [facility] [address] 2019-09-30 2019-09-30 [facility] [id number] Univers 09:26:02 09:26:02 NINFA ity o f [facility] 2019-09-30 2019-09-30 [facility] 1.2.840.114 [id number] Univers 09:26:00 09:26:00 Encounter Ninfa Y HEALTH 350.1.13.10 ity of [place] [facility] [phone] [address] 2019-09-30 2019-09-30 [facility] 1.2.840.114 [id number] Univers 09:26:00 09:26:00 Encounter Ninfa Y HEALTH 350.1.13.10 ity [place]2.[place] [phone] [address] 2019-09-29 2019-09-29 [facility] 1.2.840.114 [id number] Univers 00:00:00 00:00:00 [facility] 350.1.13.10 it y of [place] 4.2.7.2.686 [place] [phone] [facility] nal [address] Building One 2019-09-29 2019-09-[address] [facility] 1.2.634.369 [id number] Univers 00:00:00 00:00:00 [place] PRIMARY 350.1.13.10 it y [place] 4[place]2.[place] [phone] [facility] [address] 2019-09-27 2019-09-27 [facility] RamosersCH[facility] 1.2.840.114 [id number] Univers 00:00:00 00:00:00 [facility] 350.1.13.10 it y of [place] 4.2.7.2.686 [place] [phone] [address] [facility] 1.2.840.114 [id number] Univers 00:00:00 00:00:00 [facility] 350.1.13.10 it y of [place] 4.2.7.2.686 [place] [phone] [address] 2019-09-15 2019-09-15 Outpatient R BARTOLO [facility] [id number] Univers 00:00:00 00:00:00 NINFA liu [facility] 2019-09-12 2019-09-[address] [place] [address] [facility] 1.2.404.031 [id number] Univers 00:00:00 00:00:00 [facility] 350.1.13.10 it y of [place] 4.2.7.2.686 [place] [phone] [address] One 2019-09-07 2019-09-07 Outpatient R JULIO [facility] [id number] Univers 09:00:00 09:00:00 HARINDER cooley [facility] 2019-09-07 2019-09-07 [facility] 1.2.840.114 [id number] Univers 00:00:00 00:00:00 [facility] 350.1.13.10 it y of [place] 4.2.7.2.686 [place] [phone] [address] 2019-09-06 2019-09-[address] [facility] 1.2.840.114 [id number] Univers 00:00:00 00:00:00 [facility] 350.1.13.10 it y of [place] 4.2.7.2.686 [place] [phone] [address] 2019-09-05 2019-09-[address] [facility] 1.2.840.114 [id number] Univers 00:00:00 00:00:00 [facility] 350.1.13.10 it y of [place] 4.2.7.2.686 [place] [phone] Vt dical nal [address] Building One 2019-09-03 2019-09-[address] [facility] 1.2.840.114 [id number] Univers 00:00:00 00:00:00 [facility] 350.1.13.10 it y of [place] 4.2.7.2.686 [place] Profess[place] [phone] Vt dical nal [address] Building One 2019-09-02 2019-09-[address] [facility] 1.2.017.219 [id number] Univers 00:00:00 00:00:00 [place] [facility]IMARY 350.1.13.10 it y [place] 4[place]2.[place] [phone] Vt dical [address] 2019-08-25 2019-08-[address] [facility] 1.2.840.114 [id number] Univers 00:00:00 00:00:00 [facility] 350.1.13.10 it y of [place] 4.2.7.2.686 [place] [phone] Vt dical nal [address] [facility] One 2019-08-22 2019-08-22 Outpatient R JACOB [facility] [id number] Univers 12:00:00 12:00:00 GODWIN ity of [facility] 2019-08-17 2019-08-[address] [facility] 1.2.840.114 [id number] Univers 00:00:00 00:00:00 [facility] 350.1.13.10 it y of [place] 4.2.7.2.686 [place] [phone] Vt dical nal [address] Building One 2019-08-16 2019-08-[address] [facility] 1.2.487.601 [id number] Univers 00:00:00 00:00:00 [facility] 350.1.13.10 it y of [place] 4.2.7.2.686 [place] [phone] Vt dical nal [address] Building One 2019-08-16 2019-08-16 Leif Ritter [facility] 1.2.840.114 [id number] Univers 00:00:00 00:00:00 [facility] 350.1.13.10 [place] 4.2.7.2.686 [place] [phone] [address] 2019-08-16 2019-08-16 Leif Ritter [facility] 1.2.840.114 [id number] 23 Univers 00:00:00 00:00:00 [facility] 350.1.13.10 it y of [place] 4.2.7.2.686 [place] [phone] [address] 2019-08-15 2019-08-15 Leif Ritter [facility] 1.2.840.114 [id number] 14 Univers 00:00:00 00:00:00 Godwin Crane 350.1.13.10 i ty [place] [phone] [address] 2019-08-08 2019-08-[address] [facility] 1.2.840.114 [id number] Univers 00:00:00 00:00:00 [facility] 350.1.13.10 it y of [place] 4.2.7.2.686 [place] [phone] [address] 2019-08-05 2019-08-[address] [facility] 1.2.911.088 [id number] Univers 00:00:00 00:00:00 Ninfa PRIMARY 350.1.13.[address] [facility] 4.2.7.2.[place] [id number] [facility] [address] 2019-08-04 2019-08-04 Orders Doctor BRODERICK 1.2.840.114 [id number] Univers 00:00:00 00:00:00 Only Unassigned, KEISHA 350.1.13.10 ity of [place] [facility] 4.2.7.2.686 [place] [phone] [address] 2019-08-03 2019-08-[address] [facility] 1.2.840.114 [id number] Univers 00:00:00 00:00:00 [facility] 350.1.13.10 it y of [place] 4.2.7.2.686 [place] [phone] [address] Office Building One 2019-08-03 2019-08-03 Telephone Toyavedo [facility] 1.2.840.114 [id number] Univers 00:00:00 00:00:00 Catr[place]ito, Y HEALTH 350.1.13.10 ity of [facility] 4.2.7.2.[place] [phone] [address] 2019-07-25 2019-07-[address] [facility] 1.2.840.114 [id number] Univers 00:00:00 00:00:00 [facility] 350.1.13.10 it y of [place] 4.2.7.2.686 [place] Profess[place] [phone] [address] Office Building One 2019-07-22 2019-07-[address] [facility] 1.2.840.114 [id number] 19 Univers 00:00:00 00:00:00 [facility] 350.1.13.10 it y of [place] 4.2.7.2.686 [place] Profess[place] [phone] [address] Office Building One 2019-07-13 2019-07-13 Outpatient R BARTOLO [facility] [id number] Univers 00:00:00 00:00:00 NINFA liu [facility] 2019-07-07 2019-07-[address] [facility] 1.2.840.114 [id number] Univers 00:00:00 00:00:00 [facility] 350.1.13.10 it y of [place] 4.2.7.2.686 [place] [phone] [address] Office Building One 2019-06-27 2019-06-[address] [facility] 1.2.059.214 [id number] Univers 00:00:00 00:00:00 [place] PRIMARY 350.1.13.10 it y [place] 4[place]2.[place] [phone] [address] 2019-06-24 2019-06-[address] [facility] 1.2.840.114 [id number] 43 Univers 00:00:00 00:00:00 [place] PRIMARY 350.1.13.10 it y of [place] 4[place]2.7.2.[place] [phone] [address] 2019-06-20 2019-06-20 Outpatient R JACOB [facility] [id number] Univers 12:15:00 12:15:00 GODWIN ity [facility] 2019-06-20 2019-06-[address] [facility] 1.2.266.057 [id number] Univers 00:00:00 00:00:00 [facility] 350.1.13.10 it y of [place] 4.2.7.2.686 [place] Profess[place] [phone] [address] Office [facility] 2019-06-18 2019-06-[address] [facility] 1.2.840.114 [id number] 62 Univers 00:00:00 00:00:00 [facility] 350.1.13.10 it y of [place] 4.2.7.2.686 [place] Professio [phone] [address] Office [facility] 2019-06-17 2019-06-[address] [facility] 1.2.840.114 [id number] Univers 00:00:00 00:00:00 [facility] 350.1.13.10 it y of [place] 4.2.7.2.686 [place] Professio [phone] [address] Office Building One 2019-06-10 2019-06-[address] [facility] 1.2.825.234 [id number] Univers 00:00:00 00:00:00 [place] PRIMARY 350.1.13.10 it y of C[place] 4[place]2.7.2.[place] [phone] [address] 2019-06-10 2019-06-10 Telephone Kalio [facility] 1.2.840.114 [id number] Univers 00:00:00 00:00:00 Rocio Winston HEALTH 350.1.13.10 ity of [place] CL[place]ICS 4.2.7.2.[place] [phone] [address] 2019-06-02 2019-06-[address] [facility] 1.2.539.877 [id number] Univers 00:00:00 00:00:00 [place] PRIMARY 350.1.13.10 it y of [place] 4.2.7.2.[place] [phone] Vt dical [address] 2019-05-27 2019-05-[address] [facility] 1.2.840.114 [id number] Univers 00:00:00 00:00:00 [facility] 350.1.13.10 it y of [place] 4.2.7.2.686 [place] Professio [phone] Vt dical [facility] [address] Building One 2019-05-24 2019-05-24 Office Noe [facility] UNIVERSIT 1.2.840.114 [id number] Univers 12:40:11 13:40:11 Visit Michelle, Josiah Brendan Richardson HEALTH 350.1.13.10 ity of [place] 4[place]2.7.2.[place] [phone] [address] 2019-05-24 2019-05-24 Outpatient R JOSIAH MARTINEZ [facility] [id number] Univers 13:00:00 13:00:00 JOSIAH MARTINEZ ity of [facility] 2019-05-24 2019-05-[address] [facility] 1.2.840.114 [id number] Univers 10:39:44 11:45:34 Visit Tucker PRIMARY 350.1.13.10 it y of C[place] 4.2.7.2.[place] [phone] Vt dical [address] 2019-05-24 2019-05-24 Office Bartolo [facility] 1.2.840.114 [id number] 62 Univers 08:47:39 10:55:58 Visit Ninfa PRIMARY 350.1.13.10 i ty of [place] 4.2.7.2.[place] [phone] Vt dical [address] 2019-05-20 2019-05-20 Reflennie Ritter V[facility] 1.2.840.114 [id number] 15 Univers 00:00:00 00:00:00 [facility] 350.1.13.10 it y of [place] 4.2.7.2.686 [place] Professio [phone] Vt dical nal [address] [facility] One 2019-05-18 2019-05-18 Reflennie Jacob [facility] 1.2.840.114 [id number] Univers 00:00:00 00:00:00 [facility] 350.1.13.10 it y of [place] 4.2.7.2.686 [place] Professio [phone] Vt dical nal 044 [facility] One 2019-05-16 2019-05-16 Leif Ramosshemar [facility] 1.2.840.114 [id number] Univers 00:00:00 00:00:00 [facility] 350.1.13.10 it y of [place] 4.2.7.2.686 [place] Professio [phone] Vt dical nal 044 [facility] One 2019-05-11 2019-05-11 Orders Doctor BRODERICK 1.2.840.114 [id number] Univers 00:00:00 00:00:00 Only Unassigned, KEISHA 350.1.13.10 ity of [place] [facility] 4.2.7.2.686 [place] [phone] [facility] [address] 2019-05-11 2019-05-11 Reflennie RitterWYCKOFF, UTSMITA 1.2.840.114 [id number] Univers 00:00:00 00:00:00 [facility] 350.1.13.10 it y of [place] 4.2.7.2.686 [place] Professio [phone] Vt dical nal [address] Building One 2019-05-05 2019-05-05 Julisa Ritter [facility] 1.2.031.195 [id number] Univers 00:00:00 00:00:00 [facility] 350.1.13.10 it y of [place] 4.2.7.2.686 [place] Professio [phone] Vt dical nal [address] Building One 2019-05-03 2019-05-03 Telephone Jacob [facility] 1.2.445.619 [id number] Univers 00:00:00 00:00:00 [facility] 350.1.13.10 it y of [place] 4.2.7.2.686 [place] Professio [phone] Vt dical nal [address] Building One 2019-05-02 2019-05-[address] [facility] 1.2.840.114 [id number] Univers 00:00:00 00:00:00 [facility] 350.1.13.10 it y of [place] 4.2.7.2.686 [place] Professio [phone] Vt dical nal [address] Building One 2019-04-29 2019-04-[address] [facility] 1.2.840.114 [id number] 86 Univers 00:00:00 00:00:00 [facility] 350.1.13.10 it y of [place] 4.2.7.2.686 [place] Professio [phone] Vt dical nal [address] [place] [address] Office Building One 2019-04-28 2019-04-[address] [facility] 1.2.658.020 [id number] Univers 00:00:00 00:00:00 [facility] 350.1.13.10 it y of [place] 4.2.7.2.686 [place] Professio [phone] Vt dical nal [address] Building One 2019-04-27 2019-04-[address] [facility] 1.2.840.114 [id number] Univers 12:45:09 16:07:58 Visit [facility] 350.1.13.10 it y of [place] 4.2.7.2.686 [place] Professio [phone] Vt dical nal [address] Building One 2019-04-27 2019-04-27 Orders Doctor BRODERICK 1.2.840.114 [id number] Univers 00:00:00 00:00:00 Only Unassigned, KEISHA 350.1.13.10 ity of [place] [facility] 4.2.7.2.686 [place] [phone] [address] 2019-04-14 2019-04-14 Orders Doctor BRODERICK 1.2.840.114 [id number] Univers 00:00:00 00:00:00 Only Unassigned, KEISHA 350.1.13.10 ity of [place] [facility] 4.2.7.2.686 [place] [phone] [address] 2019-04-12 2019-04-[address] [facility] 1.2.840.114 [id number] Univers 00:00:00 00:00:00 [facility] 350.1.13.10 it y of [place] 4.2.7.2.686 [place] Professio [phone] [address] Office [facility] One 2019-04-07 2019-04-07 Leif Ramosers [facility] 1.2.840.114 [id number] Univers 00:00:00 00:00:00 [facility] 350.1.13.10 it y of [place] 4.2.7.2.686 [place] Professio [phone] [address] One 2019-03-07 2019-03-07 Outpatient R JACOB [facility] [id number] Univers 14:20:25 23:59:00 GODWIN ity of [facility] 2018-12-06 2018-12-[address] [facility] 1.2.840.114 [id number] Univers 00:00:00 00:00:00 [facility] 350.1.13.10 it y of [place] 4.2.7.2.686 [place] Professio [phone] [address] Office [facility] One 2018-11-30 2018-11-[address] [facility] 1.2.840.114 [id number] Univers 00:00:00 00:00:00 [facility] 350.1.13.10 it y of [place] 4.2.7.2.686 [place] Professio [phone] [address] Office [facility] One 2018-11-30 2018-11-[address] [facility] 1.2.840.114 [id number] Univers 00:00:00 00:00:00 [facility] 350.1.13.10 it y of [place] 4.2.7.2.686 [place] Professio [phone] [facility] [address] Office Building One 2018-11-30 2018-11-[address] [facility] 1.2.840.114 [id number] 23 00:00:00 00:00:00 [facility] 350.1.13.10 [place] 4.2.7.2.686 Professio [phone] [place] [address] Office Building One 2018-11-30 2018-11-[address] [facility] 1.2.840.114 [id number] 10 00:00:00 00:00:00 [facility] 350.1.13.10 [place] 4.2.7.2.686 Professio [phone] [place] [address] Office Building One 2018-11-29 2018-11-[address] [facility] 1.2.840.114 [id number] 99 Univers 00:00:00 00:00:00 [facility] 350.1.13.10 it y of [place] 4.2.7.2.686 [place] Professio [phone] [address] Office Building One 2018-11-29 2018-11-[address] [facility] 1.2.840.114 [id number] 99 00:00:00 00:00:00 [facility] 350.1.13.10 [place] 4.2.7.2.686 Professio [phone] [place] [address] Office Building One 2018-11-23 2018-11-[address] [facility] 1.2.285.442 [id number] 1422 Univers 00:00:00 00:00:00 [facility] 350.1.13.10 it y of [place] 4.2.7.2.686 [place] Professio [phone] [address] Office Building One 2018-11-23 2018-11-[address] [facility] 1.2.070.940 [id number] 1422 00:00:00 00:00:00 [facility] 350.1.13.10 [place] 4.2.7.2.686 Professio [phone] [place] [address] Office Building One 2018-11-18 2018-11-[address] [facility] 1.2.840.114 [id number] 84 Univers 00:00:00 00:00:00 [facility] 350.1.13.10 it y of [place] 4.2.7.2.686 [place] Professio [phone] [address] Office Building One 2018-11-18 2018-11-[address] [facility] 1.2.840.114 [id number] 84 00:00:00 00:00:00 [facility] 350.1.13.10 [place] 4.2.7.2.686 Professio [phone] [place] [address] Office Building One 2018-11-17 2018-11-[address] [facility] [id number] [id number] 00:00:00 00:00:00 [facility] 350.1.13.10 [place] 4.2.7.2.686 [facility]io [phone] [place] [address] [facility] 2018-11-17 2018-11-[address] [facility] [id number] [id number] [facility] 00:00:00 00:00:00 [facility] 350.1.13.10 it y of [place] 4.2.7.2.686 [place] [facility] [phone] [address] [facility] 2018-11-17 2018-11-[address] [facility] 1.2.560.907 [id number] [facility] 00:00:00 00:00:00 [facility] 350.1.13.10 it y [facility] [place] 4.2.7.2.686 [place] [facility] [phone] [facility] nal [address] [place] [address] [facility] 2018-11-16 2018-11-[address] [facility] 1.2.840.114 [id number] Univers 00:00:00 00:00:00 [facility] 350.1.13.10 it y of [place] 4.2.7.2.686 [place] [facility] [phone] [address] [facility] 2018-11-16 2018-11-[address] [facility] [id number] [id number] [facility] 00:00:00 00:00:00 [facility] 350.1.13.10 it y [facility] [place] 4.2.7.2.686 [place] [facility] [phone] [address] [facility] 2018-11-15 2018-11-[address] [facility] 1.2.840.114 [id number] [employer] 00:00:00 00:00:00 [facility] 350.1.13.10 it y of [place] 4.2.7.2.686 [place] [facility] [phone] [address] [facility] 2018-11-11 2018-11-[address] [facility] 1.2.840.114 [id number] Univers 14:43:26 15:12:10 Visit [facility] 350.1.13.10 it y [facility] [place] 4.2.7.2.686 [place] [facility] [phone] [address] [facility] 2018-11-06 2018-11-06 [facility] 1.2.840.114 [id number] Univers 00:00:00 00:00:00 [facility] 350.1.13.10 it y [facility] [place] 4.2.7.2.686 [place] [facility] [phone] [address] [facility] 2018-11-05 2018-11-05 [facility] 1.2.840.114 [id number] [facility] 00:00:00 00:00:00 [facility] 350.1.13.10 [facility] y [facility] [place] 4.2.7.2.686 [place] [facility] [phone] [address] [facility] 2018-11-05 2018-11-[address] [facility] [id number] Univers 00:00:00 00:00:00 [facility] [id number] it y of [place] [id number] [place] [facility] [phone] [address] Office Building One 2018-11-04 2018-11-[address] [facility] [id number] [facility] 00:00:00 00:00:00 [facility] [id number] it y of [place] [id number] [place] [facility] [phone] [address] One 2018-11-02 2018-11-02 Telephone BRODERICK Hamm [id number] [facility] 00:00:00 00:00:00 Klaudia Sevilla KEISHA [id number] i ty of [facility] 4.2.7.2.686 [place] [phone] [facility] [address] [place] 2018-11-01 2018-11-[address] [facility] [id number] Univers 15:04:11 15:40:33 Visit [facility] [id number] it y of [place] [id number] [place] [phone] [address] One 2018-10-27 2018-10-[address] [facility] [id number] [facility] 00:00:00 00:00:00 [facility] [id number] it y of [place] [id number] [place] [phone] [address] One 2018-10-25 2018-10-[address] [facility] [id number] Univers 00:00:00 00:00:00 [facility] [id number] it y of [place] [id number] [place] [phone] [address] Office [facility] One 2018-10-22 2018-10-[address] [facility] [id number] [facility] 00:00:00 00:00:00 [facility] [id number] it y of [place] [id number] [place] [phone] [address] Office [facility] One 2018-10-19 2018-10-[address] [facility] [id number] Univers 10:05:28 10:42:07 Visit [facility] [id number] it y of [place] [id number] [place] [phone] Vt dical nal 044 [facility] One 2018-10-16 2018-10-16 Leif Ritter [facility] [id number] Univers 00:00:00 00:00:00 [facility] 350..13.10 it y of [place] 4.2.7.2.686 [place] [phone] Vt dical nal 044 [facility] One 2017-09-15 2017-09-16 Inpatient [facility] [id number] Mem[place] 04:21:00 22:45:[address] 2017-09-15 2017-09-16 Inpatient [facility] [id number] Mem[place] 04:21:00 22:45:[address] 2017-09-14 2017-09-16 Outpatient [facility] [id number] 23:21:00 17:45:00 Mary [address] [place] Results Test Description Test Time Test Comments Results Result Comments Source HEMATOLOGY 2017-09-16 08:15:00 Test Item Value Reference Range Interpretation Comme nts Lymphocytes # (test code = Lymphocytes #) 4.0 1.0-5.5 [facility]KpolyiyHITMKEHFGX0364-56-70 08:15:00 Test Item Value Reference Range Interpretation Comments Basophils # (test code 0.1 See_Comment [Aut omated message] The = Basophils #) system which generated this result tra nsmitted reference range : <=0.2. The reference r yuridia was not used to int erpret this result as normal/abnormal . [facility] HospitalCHEM [id number] 08:15:00 Test Item Value Reference Range Interpretation Comments Magnesium Lvl (test code = Magnesium 1.4 1.8-2.4 Lvl) [facility] HospitalHungerTime [id number] 08:15:00 Test Item Value Reference Range Interpretation Comments Phosphorus (test code = Phosphorus) 2.7 2.5-4.5 [facility] HospitalHungerTime [id number] 08:15:00 Test Item Value Reference Range Interpretation Comments eGFR (test code = eGFR) 98 [facility]2018-06-27 08:15:00 Test Item Value Reference Range Interpretation Comments Chloride Lvl (test code = Chloride Lvl) 107 95-109 [facility]2018-06-27 08:15:00 Test Item Value Reference Range Interpretation Comments CO2 (test code = CO2) 25 24-32 [facility]2018-06-27 08:15:00 Test Item Value Reference Range Interpretation Comments AST (test code = AST) 24 See_Comment [Auto mated message] The system which ge nerated this result transmit uma reference range : <=37. The reference range was not used to interpr et this result as katie l/abnormal. [facility]2018-06-27 08:15:00 Test Item Value Reference Range Interpretation Comments Albumin Lvl (test code = Albumin Lvl) 3.4 3.5-5.0 [facility]2018-06-27 08:15:00 Test Item Value Reference Range Interpretation Comments ALT (test code = ALT) 16 See_Comment [Auto mated message] The system which ge nerated this result transmit uma reference range : <=65. The reference range was not used to interpr et this result as katie l/abnormal. [facility]2018-06-27 08:15:00 Test Item Value Reference Range Interpretation Comments Calcium Lvl (test code = Calcium Lvl) 8.5 8.5-10.5 [facility]2018-06-27 08:15:00 Test Item Value Reference Range Interpretation Comments Total Protein (test code = Total 7.2 6.4-8.4 Protein) [facility]2018-06-27 08:15:00 Test Item Value Reference Range Interpretation Comments Alk Phos (test code = Alk Phos) 87 39-136 [facility]2018-06-27 08:15:00 Test Item Value Reference Range Interpretation Comments Bili Total (test code = Bili Total) 0.3 0.2-1.3 [facility]2018-06-27 08:15:00 Test Item Value Reference Range Interpretation Comments Potassium Lvl (test code = Potassium 3.5 3.5-5.1 Lvl) [place] 153338-06-27 08:15:00 Test Item Value Reference Range Interpretation Comments Creatinine Lvl (test code = Creatinine 0.68 0.50-1.40 Lvl) [facility]2018-06-27 08:15:00 Test Item Value Reference Range Interpretation Comments Glucose Lvl (test code = Glucose Lvl) 247 70-99 [facility]2018-06-27 08:15:00 Test Item Value Reference Range Interpretation Comments BUN (test code = BUN) 12 7-22 [facility]2018-06-27 08:15:00 Test Item Value Reference Range Interpretation Comments Sodium Lvl (test code = Sodium Lvl) 141 135-145 [place] 153338-06-27 08:15:00 Test Item Value Reference Range Interpretation Comments B/C Ratio (test code = B/C Ratio) 18 1 6-25 [place] 153338-06-27 08:15:00 Test Item Value Reference Range Interpretation Comments Globulin (test code = Globulin) 3.8 2.7-4.2 [facility]2018-06-27 08:15:00 Test Item Value Reference Range Interpretation Comments A/G Ratio (test code = A/G Ratio) 0.9 1 0.7-1.6 [facility]2018-06-27 08:15:00 Test Item Value Reference Range Interpretation Comments AGAP (test code = AGAP) 12.5 10.0-20.0 [facility]ObqdtjcVGGLOLHNUI6514-93-71 08:15:00 Test Item Value Reference Range Interpretation Comments MCHC (test code = MCHC) 35.2 32.0-36.0 [facility] HospitalDjivqlsAHHKXWBZXG0408-35-18 08:15:00 Test Item Value Reference Range Interpretation Comments MPV (test code = MPV) 8.0 7.4-10.4 [facility] HospitalMnzyobyBFYELXAGZN3124-32-76 08:15:00 Test Item Value Reference Range Interpretation Comments Platelet (test code = Platelet) 235 133-450 [facility] HospitalMbibgehEQRYZYEVPP0090-08-58 08:15:00 Test Item Value Reference Range Interpretation Comments RDW (test code = RDW) 14.4 11.5-14.5 [facility] HospitalVnxfzvnXBKZRAZBKW5297-69-15 08:15:00 Test Item Value Reference Range Interpretation Comments WBC (test code = WBC) 10.0 3.7-10.4 [facility] HospitalVxkpwtcNAGAIHDBNE0053-33-24 08:15:00 Test Item Value Reference Range Interpretation Comments Hgb (test code = Hgb) 12.2 12.0-16.0 [place] 625098-06-27 08:15:00 Test Item Value Reference Range Interpretation Comments Hct (test code = Hct) 34.7 36.0-48.0 [place] [address]-06-27 08:15:00 Test Item Value Reference Range Interpretation Comments RBC (test code = RBC) 4.12 4.20-5.40 [facility] HospitalEjeyofgQYEJWJGXSS5736-18-89 08:15:00 Test Item Value Reference Range Interpretation Comments MCV (test code = MCV) 84.3 80.0-98.0 [place] 625098-06-27 08:15:00 Test Item Value Reference Range Interpretation Comments MCH (test code = MCH) 29.7 pg 27.0-31.0 [facility] HospitalWotmkojVEVRARJBOL2124-56-91 08:15:00 Test Item Value Reference Range Interpretation Comments Segs (test code = Segs) 51.4 45.0-75.0 [facility] HospitalTkjwfcwDAPJHRRGJD6043-34-07 08:15:00 Test Item Value Reference Range Interpretation Comments Monocytes (test code = Monocytes) 6.2 2.0-12.0 [facility] HospitalJesygczTCRGOMOKHP2592-40-26 08:15:00 Test Item Value Reference Range Interpretation Comments Lymphocytes (test code = Lymphocytes) 40.1 20.0-40.0 [place] 625098-06-27 08:15:00 Test Item Value Reference Range Interpretation Comments Eosinophils (test code = 1.3 See_Comment [A utomated message] The Eosinophils) system which ge nerated this result tra nsmitted reference range : <=4.0. The reference r yuridia was not used to int erpret this result as normal/abnormal . [facility] HospitalDagclmjKMRJVYXPEM9683-02-95 08:15:00 Test Item Value Reference Range Interpretation Comments Eosinophils # (test code 0.1 See_Comment [A utomated message] The = Eosinophils #) system whic h generated this result tra nsmitted reference range : <=0.5. The reference r yuridia was not used to int erpret this result as normal/abnormal . [facility] HospitalHytnrxsVPPPYQUTXR2872-37-58 08:15:00 Test Item Value Reference Range Interpretation Comments Monocytes # (test code 0.6 See_Comment [Aut omated message] The = Monocytes #) system which generated this result tra nsmitted reference range : <=0.8. The reference r yuridia was not used to int erpret this result as normal/abnormal . [facility] HospitalKjpngxuGKNARQTTCR8203-52-39 08:15:00 Test Item Value Reference Range Interpretation Comments Segs-Bands # (test code = Segs-Bands #) 5.1 1.5-8.1 [facility] HospitalLfvqqhbUYURINTIQD6507-72-53 08:15:00 Test Item Value Reference Range Interpretation Comments Basophils (test code = 1.0 See_Comment [Aut omated message] The Basophils) system which ge nerated this result tra nsmitted reference range : <=1.0. The reference r yuridia was not used to int erpret this result as normal/abnormal . [facility] HospitalLukoaqcANWTZVDWUE1294-82-61 08:15:00 Test Item Value Reference Range Interpretation Comments Lymphocytes # (test code = Lymphocytes 4.0 1.0-5.5 #) [facility] HospitalPikegbkQVMNBQMXZC7153-75-92 08:15:00 Test Item Value Reference Range Interpretation Comments Basophils # (test code 0.1 See_Comment [Aut omated message] The = Basophils #) system which generated this result tra nsmitted reference range : <=0.2. The reference r yuridia was not used to int erpret this result as normal/abnormal . [facility]2018-06-27 08:15:00 Test Item Value Reference Range Interpretation Comments Magnesium Lvl (test code = Magnesium 1.4 1.8-2.4 Lvl) [facility]2018-06-27 08:15:00 Test Item Value Reference Range Interpretation Comments Phosphorus (test code = Phosphorus) 2.7 2.5-4.5 [facility]2018-06-27 08:15:00 Test Item Value Reference Range Interpretation Comments eGFR (test code = eGFR) 98 [facility]2018-06-27 08:15:00 Test Item Value Reference Range Interpretation Comments Chloride Lvl (test code = Chloride Lvl) 107 95-109 [place] 153338-06-27 08:15:00 Test Item Value Reference Range Interpretation Comments CO2 (test code = CO2) 25 24-32 [facility]2018-06-27 08:15:00 Test Item Value Reference Range Interpretation Comments AST (test code = AST) 24 See_Comment [Auto mated message] The system which ge nerated this result transmit uma reference range : <=37. The reference range was not used to interpr et this result as katie l/abnormal. [facility]2018-06-27 08:15:00 Test Item Value Reference Range Interpretation Comments Albumin Lvl (test code = Albumin Lvl) 3.4 3.5-5.0 [facility]2018-06-27 08:15:00 Test Item Value Reference Range Interpretation Comments ALT (test code = ALT) 16 See_Comment [Auto mated message] The system which ge nerated this result transmit uma reference range : <=65. The reference range was not used to interpr et this result as katie l/abnormal. [facility]2018-06-27 08:15:00 Test Item Value Reference Range Interpretation Comments Calcium Lvl (test code = Calcium Lvl) 8.5 8.5-10.5 [facility]2018-06-27 08:15:00 Test Item Value Reference Range Interpretation Comments Total Protein (test code = Total 7.2 6.4-8.4 Protein) [facility]2018-06-27 08:15:00 Test Item Value Reference Range Interpretation Comments Alk Phos (test code = Alk Phos) 87 39-136 [facility]2018-06-27 08:15:00 Test Item Value Reference Range Interpretation Comments Bili Total (test code = Bili Total) 0.3 0.2-1.3 [facility]2018-06-27 08:15:00 Test Item Value Reference Range Interpretation Comments Potassium Lvl (test code = Potassium 3.5 3.5-5.1 Lvl) [facility]2018-06-27 08:15:00 Test Item Value Reference Range Interpretation Comments Creatinine Lvl (test code = Creatinine 0.68 0.50-1.40 Lvl) [facility]2018-06-27 08:15:00 Test Item Value Reference Range Interpretation Comments Glucose Lvl (test code = Glucose Lvl) 247 70-99 [facility]2018-06-27 08:15:00 Test Item Value Reference Range Interpretation Comments BUN (test code = BUN) 12 7-22 [facility]2018-06-27 08:15:00 Test Item Value Reference Range Interpretation Comments Sodium Lvl (test code = Sodium Lvl) 141 135-145 [facility]2018-06-27 08:15:00 Test Item Value Reference Range Interpretation Comments B/C Ratio (test code = B/C Ratio) 18 1 6-25 [facility]2018-06-27 08:15:00 Test Item Value Reference Range Interpretation Comments Globulin (test code = Globulin) 3.8 2.7-4.2 [facility]2018-06-27 08:15:00 Test Item Value Reference Range Interpretation Comments A/G Ratio (test code = A/G Ratio) 0.9 1 0.7-1.6 [facility]2018-06-27 08:15:00 Test Item Value Reference Range Interpretation Comments AGAP (test code = AGAP) 12.5 10.0-20.0 [facility] HospitalFckomhvMDXAZMRQQK1137-54-45 08:15:00 Test Item Value Reference Range Interpretation Comments MCHC (test code = MCHC) 35.2 32.0-36.0 [facility] HospitalTamvbueQUHXUKZLVD4006-05-47 08:15:00 Test Item Value Reference Range Interpretation Comments MPV (test code = MPV) 8.0 7.4-10.4 [facility] HospitalDwcuzkyWTHMQQCIKN3199-58-31 08:15:00 Test Item Value Reference Range Interpretation Comments Platelet (test code = Platelet) 235 133-450 [facility] HospitalPeqlyubNVQZROAPQW1451-16-19 08:15:00 Test Item Value Reference Range Interpretation Comments RDW (test code = RDW) 14.4 11.5-14.5 [facility] HospitalTrwkklkSPDRNUOAVZ0095-76-80 08:15:00 Test Item Value Reference Range Interpretation Comments WBC (test code = WBC) 10.0 3.7-10.4 [facility] HospitalHdmpjpsWDNFIZDWFU2605-54-74 08:15:00 Test Item Value Reference Range Interpretation Comments Hgb (test code = Hgb) 12.2 12.0-16.0 [facility] HospitalVwpgwocBOBWJCWYRN3196-13-11 08:15:00 Test Item Value Reference Range Interpretation Comments Hct (test code = Hct) 34.7 36.0-48.0 [facility] HospitalLlinugdYSBYANISHZ2316-87-46 08:15:00 Test Item Value Reference Range Interpretation Comments RBC (test code = RBC) 4.12 4.20-5.40 [facility] HospitalVtmgqgvNVTXPBBFGR4943-28-84 08:15:00 Test Item Value Reference Range Interpretation Comments MCV (test code = MCV) 84.3 80.0-98.0 [facility] HospitalJykzkliTFVVCKLNFN1680-74-72 08:15:00 Test Item Value Reference Range Interpretation Comments MCH (test code = MCH) 29.7 pg 27.0-31.0 [facility] HospitalOqgeqrgVOBAUYMNRP4024-48-75 08:15:00 Test Item Value Reference Range Interpretation Comments Segs (test code = Segs) 51.4 45.0-75.0 [facility] HospitalFzzzrxnJGVHSEFIXK8697-91-90 08:15:00 Test Item Value Reference Range Interpretation Comments Monocytes (test code = Monocytes) 6.2 2.0-12.0 [facility] HospitalXxvwgjnJSXYIOFISL5379-42-88 08:15:00 Test Item Value Reference Range Interpretation Comments Lymphocytes (test code = Lymphocytes) 40.1 20.0-40.0 [facility] HospitalXstsxfgJSAUYKDYRI0189-18-46 08:15:00 Test Item Value Reference Range Interpretation Comments Eosinophils (test code = 1.3 See_Comment [A utomated message] The Eosinophils) system which ge nerated this result tra nsmitted reference range : <=4.0. The reference r yuridia was not used to int erpret this result as normal/abnormal . [facility] HospitalNfnxioyTWHPLRVXAO2118-01-34 08:15:00 Test Item Value Reference Range Interpretation Comments Eosinophils # (test code 0.1 See_Comment [A utomated message] The = Eosinophils #) system whic h generated this result tra nsmitted reference range : <=0.5. The reference r yuridia was not used to int erpret this result as normal/abnormal . [facility] HospitalBtrwkblMDLSUUZODP3664-82-26 08:15:00 Test Item Value Reference Range Interpretation Comments Monocytes # (test code 0.6 See_Comment [Aut omated message] The = Monocytes #) system which generated this result tra nsmitted reference range : <=0.8. The reference r yuridia was not used to int erpret this result as normal/abnormal . [facility] HospitalZqvelrkRIFTGYFDNV0163-83-38 08:15:00 Test Item Value Reference Range Interpretation Comments Segs-Bands # (test code = Segs-Bands #) 5.1 1.5-8.1 [facility] HospitalCfoppaoSNPHNPGUPQ3441-78-17 08:15:00 Test Item Value Reference Range Interpretation Comments Basophils (test code = 1.0 See_Comment [Aut omated message] The Basophils) system which ge nerated this result tra nsmitted reference range : <=1.0. The reference r yuridia was not used to int erpret this result as normal/abnormal . [facility] HospitalWgqaikmXRUHORHUES4052-75-14 08:15:00 Test Item Value Reference Range Interpretation Comments Lymphocytes # (test code = Lymphocytes 4.0 1.0-5.5 #) [facility] HospitalTnjqmddGFJVGIJOIC8971-89-02 08:15:00 Test Item Value Reference Range Interpretation Comments Basophils # (test code 0.1 See_Comment [Aut omated message] The = Basophils #) system which generated this result tra nsmitted reference range : <=0.2. The reference r yuridia was not used to int erpret this result as normal/abnormal . [facility]2018-06-27 08:15:00 Test Item Value Reference Range Interpretation Comments Magnesium Lvl (test code = Magnesium 1.4 1.8-2.4 Lvl) [facility]2018-06-27 08:15:00 Test Item Value Reference Range Interpretation Comments Phosphorus (test code = Phosphorus) 2.7 2.5-4.5 [facility]2018-06-27 08:15:00 Test Item Value Reference Range Interpretation Comments eGFR (test code = eGFR) 98 [facility]2018-06-27 08:15:00 Test Item Value Reference Range Interpretation Comments Chloride Lvl (test code = Chloride Lvl) 107 95-109 [facility]2018-06-27 08:15:00 Test Item Value Reference Range Interpretation Comments CO2 (test code = CO2) 25 24-32 [facility]2018-06-27 08:15:00 Test Item Value Reference Range Interpretation Comments AST (test code = AST) 24 See_Comment [Auto mated message] The system which ge nerated this result transmit uma reference range : <=37. The reference range was not used to interpr et this result as katie l/abnormal. [facility]2018-06-27 08:15:00 Test Item Value Reference Range Interpretation Comments Albumin Lvl (test code = Albumin Lvl) 3.4 3.5-5.0 [facility]2018-06-27 08:15:00 Test Item Value Reference Range Interpretation Comments ALT (test code = ALT) 16 See_Comment [Auto mated message] The system which ge nerated this result transmit uma reference range : <=65. The reference range was not used to interpr et this result as katie l/abnormal. [facility]2018-06-27 08:15:00 Test Item Value Reference Range Interpretation Comments Calcium Lvl (test code = Calcium Lvl) 8.5 8.5-10.5 [facility]2018-06-27 08:15:00 Test Item Value Reference Range Interpretation Comments Total Protein (test code = Total 7.2 6.4-8.4 Protein) [facility]2018-06-27 08:15:00 Test Item Value Reference Range Interpretation Comments Alk Phos (test code = Alk Phos) 87 39-136 [facility]2018-06-27 08:15:00 Test Item Value Reference Range Interpretation Comments Bili Total (test code = Bili Total) 0.3 0.2-1.3 [facility]2018-06-27 08:15:00 Test Item Value Reference Range Interpretation Comments Potassium Lvl (test code = Potassium 3.5 3.5-5.1 Lvl) [facility]2018-06-27 08:15:00 Test Item Value Reference Range Interpretation Comments Creatinine Lvl (test code = Creatinine 0.68 0.50-1.40 Lvl) [facility]2018-06-27 08:15:00 Test Item Value Reference Range Interpretation Comments Glucose Lvl (test code = Glucose Lvl) 247 70-99 [facility]2018-06-27 08:15:00 Test Item Value Reference Range Interpretation Comments BUN (test code = BUN) 12 7-22 [place] 153338-06-27 08:15:00 Test Item Value Reference Range Interpretation Comments Magnesium Lvl (test code = Magnesium 1.4 1.8-2.4 Lvl) [facility]2018-06-27 08:15:00 Test Item Value Reference Range Interpretation Comments Sodium Lvl (test code = Sodium Lvl) 141 135-145 [facility]2018-06-27 08:15:00 Test Item Value Reference Range Interpretation Comments B/C Ratio (test code = B/C Ratio) 18 1 6-25 [place] 153338-06-27 08:15:00 Test Item Value Reference Range Interpretation Comments Globulin (test code = Globulin) 3.8 2.7-4.2 [facility]2018-06-27 08:15:00 Test Item Value Reference Range Interpretation Comments A/G Ratio (test code = A/G Ratio) 0.9 1 0.7-1.6 [place] 153338-06-27 08:15:00 Test Item Value Reference Range Interpretation Comments AGAP (test code = AGAP) 12.5 10.0-20.0 [facility] HospitalEqpsrwmJECBQQEPAP5650-77-31 08:15:00 Test Item Value Reference Range Interpretation Comments MCHC (test code = MCHC) 35.2 32.0-36.0 [facility] HospitalFqrmuieHHHUEVWPOL5073-03-34 08:15:00 Test Item Value Reference Range Interpretation Comments MPV (test code = MPV) 8.0 7.4-10.4 [facility] HospitalYzydbghBDQKODGJOV5821-86-44 08:15:00 Test Item Value Reference Range Interpretation Comments Platelet (test code = Platelet) 235 133-450 [facility] HospitalRxqdlynQITHJJHIGO5091-92-19 08:15:00 Test Item Value Reference Range Interpretation Comments RDW (test code = RDW) 14.4 11.5-14.5 [facility] HospitalOmqsyccFZRHMHMNFG7862-84-82 08:15:00 Test Item Value Reference Range Interpretation Comments WBC (test code = WBC) 10.0 3.7-10.4 [place] 153338-06-27 08:15:00 Test Item Value Reference Range Interpretation Comments Phosphorus (test code = Phosphorus) 2.7 2.5-4.5 [facility] HospitalEecvclhZNKZXEANGM1191-58-33 08:15:00 Test Item Value Reference Range Interpretation Comments Hgb (test code = Hgb) 12.2 12.0-16.0 [facility] HospitalZijlnetVTITZQKODK8642-03-45 08:15:00 Test Item Value Reference Range Interpretation Comments Hct (test code = Hct) 34.7 36.0-48.0 [facility] HospitalMnlucdlUOSBIDBSSF5335-19-16 08:15:00 Test Item Value Reference Range Interpretation Comments RBC (test code = RBC) 4.12 4.20-5.40 [facility] HospitalFqovujhLZJEKJSSWV7239-47-22 08:15:00 Test Item Value Reference Range Interpretation Comments MCV (test code = MCV) 84.3 80.0-98.0 [facility] HospitalAfmjrdnJBYLJMOQCD2618-49-02 08:15:00 Test Item Value Reference Range Interpretation Comments MCH (test code = MCH) 29.7 pg 27.0-31.0 [facility] HospitalYatzddaNVOYEJGEUD9566-13-14 08:15:00 Test Item Value Reference Range Interpretation Comments Segs (test code = Segs) 51.4 45.0-75.0 [facility] HospitalPuxouvyDMJYEUKOSO1447-27-20 08:15:00 Test Item Value Reference Range Interpretation Comments Monocytes (test code = Monocytes) 6.2 2.0-12.0 [facility] HospitalYsiwmzmPKYTVQTHOG2057-77-11 08:15:00 Test Item Value Reference Range Interpretation Comments Lymphocytes (test code = Lymphocytes) 40.1 20.0-40.0 [facility]XtnwfimOLNMFBBNJP6531-26-78 08:15:00 Test Item Value Reference Range Interpretation Comments Eosinophils (test code = 1.3 See_Comment [A utomated message] The Eosinophils) system which ge nerated this result tra nsmitted reference range : <=4.0. The reference r yuridia was not used to int erpret this result as normal/abnormal . [facility]AokqxquQZLVPESXSN3378-10-14 08:15:00 Test Item Value Reference Range Interpretation Comments Eosinophils # (test code 0.1 See_Comment [A utomated message] The = Eosinophils #) system whic h generated this result tra nsmitted reference range : <=0.5. The reference r yuridia was not used to int erpret this result as normal/abnormal . [facility]2018-06-27 08:15:00 Test Item Value Reference Range Interpretation Comments eGFR (test code = eGFR) 98 [facility]QyqcrlbWRXKEVHUSW3970-94-25 08:15:00 Test Item Value Reference Range Interpretation Comments Monocytes # (test code 0.6 See_Comment [Aut omated message] The = Monocytes #) system which generated this result tra nsmitted reference range : <=0.8. The reference r yuridia was not used to int erpret this result as normal/abnormal . [facility]JbrxqtyEAWLGLIHAW0613-29-93 08:15:00 Test Item Value Reference Range Interpretation Comments Segs-Bands # (test code = Segs-Bands #) 5.1 1.5-8.1 [facility] HospitalGxdgecyOZGZPAAUIT2757-38-90 08:15:00 Test Item Value Reference Range Interpretation Comments Basophils (test code = 1.0 See_Comment [Aut omated message] The Basophils) system which ge nerated this result tra nsmitted reference range : <=1.0. The reference r yuridia was not used to int erpret this result as normal/abnormal . [facility]KmbqelrPBYPDLEDPO3190-39-14 08:15:00 Test Item Value Reference Range Interpretation Comments Lymphocytes # (test code = Lymphocytes 4.0 1.0-5.5 #) [facility] HospitalTrdbioaWWQOFFBGTV1226-79-22 08:15:00 Test Item Value Reference Range Interpretation Comments Basophils # (test code 0.1 See_Comment [Aut omated message] The = Basophils #) system which generated this result tra nsmitted reference range : <=0.2. The reference r yuridia was not used to int erpret this result as normal/abnormal . [facility]2018-06-27 08:15:00 Test Item Value Reference Range Interpretation Comments Magnesium Lvl (test code = Magnesium 1.4 1.8-2.4 Lvl) [facility]2018-06-27 08:15:00 Test Item Value Reference Range Interpretation Comments Phosphorus (test code = Phosphorus) 2.7 2.5-4.5 [facility]2018-06-27 08:15:00 Test Item Value Reference Range Interpretation Comments eGFR (test code = eGFR) 98 [facility]2018-06-27 08:15:00 Test Item Value Reference Range Interpretation Comments Chloride Lvl (test code = Chloride Lvl) 107 95-109 [place] 153338-06-27 08:15:00 Test Item Value Reference Range Interpretation Comments CO2 (test code = CO2) 25 24-32 [place] 153338-06-27 08:15:00 Test Item Value Reference Range Interpretation Comments Chloride Lvl (test code = Chloride Lvl) 107 95-109 [place] 153338-06-27 08:15:00 Test Item Value Reference Range Interpretation Comments AST (test code = AST) 24 See_Comment [Auto mated message] The system which ge nerated this result transmit uma reference range : <=37. The reference range was not used to interpr et this result as katie l/abnormal. [place] 153338-06-27 08:15:00 Test Item Value Reference Range Interpretation Comments Albumin Lvl (test code = Albumin Lvl) 3.4 3.5-5.0 [facility]2018-06-27 08:15:00 Test Item Value Reference Range Interpretation Comments ALT (test code = ALT) 16 See_Comment [Auto mated message] The system which ge nerated this result transmit uma reference range : <=65. The reference range was not used to interpr et this result as katie l/abnormal. [facility]2018-06-27 08:15:00 Test Item Value Reference Range Interpretation Comments Calcium Lvl (test code = Calcium Lvl) 8.5 8.5-10.5 [facility]2018-06-27 08:15:00 Test Item Value Reference Range Interpretation Comments Total Protein (test code = Total 7.2 6.4-8.4 Protein) [facility]2018-06-27 08:15:00 Test Item Value Reference Range Interpretation Comments Alk Phos (test code = Alk Phos) 87 39-136 [facility]2018-06-27 08:15:00 Test Item Value Reference Range Interpretation Comments Bili Total (test code = Bili Total) 0.3 0.2-1.3 [facility]2018-06-27 08:15:00 Test Item Value Reference Range Interpretation Comments Potassium Lvl (test code = Potassium 3.5 3.5-5.1 Lvl) [facility]2018-06-27 08:15:00 Test Item Value Reference Range Interpretation Comments Creatinine Lvl (test code = Creatinine 0.68 0.50-1.40 Lvl) [facility]2018-06-27 08:15:00 Test Item Value Reference Range Interpretation Comments Glucose Lvl (test code = Glucose Lvl) 247 70-99 [facility]2018-06-27 08:15:00 Test Item Value Reference Range Interpretation Comments CO2 (test code = CO2) 25 24-32 [facility]2018-06-27 08:15:00 Test Item Value Reference Range Interpretation Comments BUN (test code = BUN) 12 7-22 [facility]2018-06-27 08:15:00 Test Item Value Reference Range Interpretation Comments Sodium Lvl (test code = Sodium Lvl) 141 135-145 [facility]2018-06-27 08:15:00 Test Item Value Reference Range Interpretation Comments B/C Ratio (test code = B/C Ratio) 18 1 6-25 [facility]2018-06-27 08:15:00 Test Item Value Reference Range Interpretation Comments Globulin (test code = Globulin) 3.8 2.7-4.2 [facility]2018-06-27 08:15:00 Test Item Value Reference Range Interpretation Comments A/G Ratio (test code = A/G Ratio) 0.9 1 0.7-1.6 [facility]2018-06-27 08:15:00 Test Item Value Reference Range Interpretation Comments AGAP (test code = AGAP) 12.5 10.0-20.0 [facility]SsybhatYNYFRTPPAF6014-74-86 08:15:00 Test Item Value Reference Range Interpretation Comments MCHC (test code = MCHC) 35.2 32.0-36.0 [facility] HospitalMszxhofCPROCMXWHV4176-45-25 08:15:00 Test Item Value Reference Range Interpretation Comments MPV (test code = MPV) 8.0 7.4-10.4 [facility] HospitalBfhqrotZTFTNKOZNA6591-48-02 08:15:00 Test Item Value Reference Range Interpretation Comments Platelet (test code = Platelet) 235 133-450 [facility] HospitalYovslwuOXEKXAIKTE2212-08-18 08:15:00 Test Item Value Reference Range Interpretation Comments RDW (test code = RDW) 14.4 11.5-14.5 [facility]2018-06-27 08:15:00 Test Item Value Reference Range Interpretation Comments AST (test code = AST) 24 See_Comment [Auto mated message] The system which ge nerated this result transmit uma reference range : <=37. The reference range was not used to interpr et this result as katie l/abnormal. [facility] HospitalUguaaqdKBBNJXSLBA9920-75-79 08:15:00 Test Item Value Reference Range Interpretation Comments WBC (test code = WBC) 10.0 3.7-10.4 [facility] HospitalHuyqbvcINTETXWCKK9513-78-95 08:15:00 Test Item Value Reference Range Interpretation Comments Hgb (test code = Hgb) 12.2 12.0-16.0 [facility] HospitalUfizepkQCIPOXMCIO3119-62-92 08:15:00 Test Item Value Reference Range Interpretation Comments Hct (test code = Hct) 34.7 36.0-48.0 [facility] HospitalRdoxgefUDIZSAJTMP6953-50-67 08:15:00 Test Item Value Reference Range Interpretation Comments RBC (test code = RBC) 4.12 4.20-5.40 [facility] HospitalDogpivjTZFYXKJYOT9700-51-60 08:15:00 Test Item Value Reference Range Interpretation Comments MCV (test code = MCV) 84.3 80.0-98.0 [facility] HospitalHijbkavPQNMVTCEID0813-55-57 08:15:00 Test Item Value Reference Range Interpretation Comments MCH (test code = MCH) 29.7 pg 27.0-31.0 [facility] HospitalBwdiqidSTTEIQQLUI4255-76-12 08:15:00 Test Item Value Reference Range Interpretation Comments Segs (test code = Segs) 51.4 45.0-75.0 [facility] HospitalFtwjmgeMBRIECDWVS8506-47-92 08:15:00 Test Item Value Reference Range Interpretation Comments Monocytes (test code = Monocytes) 6.2 2.0-12.0 [facility] HospitalScvqvbaJZWWGROBEZ6048-52-23 08:15:00 Test Item Value Reference Range Interpretation Comments Lymphocytes (test code = Lymphocytes) 40.1 20.0-40.0 [facility] HospitalJhdpeuoRZXEVUURXU1165-07-36 08:15:00 Test Item Value Reference Range Interpretation Comments Eosinophils (test code = 1.3 See_Comment [A utomated message] The Eosinophils) system which ge nerated this result tra nsmitted reference range : <=4.0. The reference r yuridia was not used to int erpret this result as normal/abnormal . [facility]2018-06-27 08:15:00 Test Item Value Reference Range Interpretation Comments Albumin Lvl (test code = Albumin Lvl) 3.4 3.5-5.0 [facility] HospitalJkhasfcAXNSUHPOZE6730-68-54 08:15:00 Test Item Value Reference Range Interpretation Comments Eosinophils # (test code 0.1 See_Comment [A utomated message] The = Eosinophils #) system whic h generated this result tra nsmitted reference range : <=0.5. The reference r yuridia was not used to int erpret this result as normal/abnormal . [facility] HospitalHurfmlhVFNIFJBMNS1805-88-21 08:15:00 Test Item Value Reference Range Interpretation Comments Monocytes # (test code 0.6 See_Comment [Aut omated message] The = Monocytes #) system which generated this result tra nsmitted reference range : <=0.8. The reference r yuridia was not used to int erpret this result as normal/abnormal . [facility] HospitalRihybuzSFHDZDFIGC8525-60-89 08:15:00 Test Item Value Reference Range Interpretation Comments Segs-Bands # (test code = Segs-Bands #) 5.1 1.5-8.1 [facility] HospitalRgmksegPERIMPLMPY7923-66-73 08:15:00 Test Item Value Reference Range Interpretation Comments Basophils (test code = 1.0 See_Comment [Aut omated message] The Basophils) system which ge nerated this result tra nsmitted reference range : <=1.0. The reference r yuridia was not used to int erpret this result as normal/abnormal . [facility] HospitalVxpzdhxIGYNLXCEJK9049-93-49 08:15:00 Test Item Value Reference Range Interpretation Comments Lymphocytes # (test code = Lymphocytes 4.0 1.0-5.5 #) [facility] HospitalDuaobzqNQBOEOIMPN2163-27-16 08:15:00 Test Item Value Reference Range Interpretation Comments Basophils # (test code 0.1 See_Comment [Aut omated message] The = Basophils #) system which generated this result tra nsmitted reference range : <=0.2. The reference r yuridia was not used to int erpret this result as normal/abnormal . [facility]2018-06-27 08:15:00 Test Item Value Reference Range Interpretation Comments Magnesium Lvl (test code = Magnesium 1.4 1.8-2.4 Lvl) [facility]2018-06-27 08:15:00 Test Item Value Reference Range Interpretation Comments Phosphorus (test code = Phosphorus) 2.7 2.5-4.5 [facility]2018-06-27 08:15:00 Test Item Value Reference Range Interpretation Comments eGFR (test code = eGFR) 98 [place] 153338-06-27 08:15:00 Test Item Value Reference Range Interpretation Comments Chloride Lvl (test code = Chloride Lvl) 107 95-109 [place] 153338-06-27 08:15:00 Test Item Value Reference Range Interpretation Comments ALT (test code = ALT) 16 See_Comment [Auto mated message] The system which ge nerated this result transmit uma reference range : <=65. The reference range was not used to interpr et this result as katie l/abnormal. [place] 153338-06-27 08:15:00 Test Item Value Reference Range Interpretation Comments CO2 (test code = CO2) 25 24-32 [place] 153338-06-27 08:15:00 Test Item Value Reference Range Interpretation Comments AST (test code = AST) 24 See_Comment [Auto mated message] The system which ge nerated this result transmit uma reference range : <=37. The reference range was not used to interpr et this result as katie l/abnormal. [place] 153338-06-27 08:15:00 Test Item Value Reference Range Interpretation Comments Albumin Lvl (test code = Albumin Lvl) 3.4 3.5-5.0 [facility]2018-06-27 08:15:00 Test Item Value Reference Range Interpretation Comments ALT (test code = ALT) 16 See_Comment [Auto mated message] The system which ge nerated this result transmit uma reference range : <=65. The reference range was not used to interpr et this result as katie l/abnormal. [place] 153338-06-27 08:15:00 Test Item Value Reference Range Interpretation Comments Calcium Lvl (test code = Calcium Lvl) 8.5 8.5-10.5 [place] 153338-06-27 08:15:00 Test Item Value Reference Range Interpretation Comments Total Protein (test code = Total 7.2 6.4-8.4 Protein) [facility]2018-06-27 08:15:00 Test Item Value Reference Range Interpretation Comments Alk Phos (test code = Alk Phos) 87 39-136 [facility]2018-06-27 08:15:00 Test Item Value Reference Range Interpretation Comments Bili Total (test code = Bili Total) 0.3 0.2-1.3 [facility]2018-06-27 08:15:00 Test Item Value Reference Range Interpretation Comments Potassium Lvl (test code = Potassium 3.5 3.5-5.1 Lvl) [facility]2018-06-27 08:15:00 Test Item Value Reference Range Interpretation Comments Creatinine Lvl (test code = Creatinine 0.68 0.50-1.40 Lvl) [facility]2018-06-27 08:15:00 Test Item Value Reference Range Interpretation Comments Calcium Lvl (test code = Calcium Lvl) 8.5 8.5-10.5 [facility]2018-06-27 08:15:00 Test Item Value Reference Range Interpretation Comments Glucose Lvl (test code = Glucose Lvl) 247 70-99 [facility]2018-06-27 08:15:00 Test Item Value Reference Range Interpretation Comments BUN (test code = BUN) 12 7-22 [facility]2018-06-27 08:15:00 Test Item Value Reference Range Interpretation Comments Sodium Lvl (test code = Sodium Lvl) 141 135-145 [facility]2018-06-27 08:15:00 Test Item Value Reference Range Interpretation Comments B/C Ratio (test code = B/C Ratio) 18 1 6-25 [facility]2018-06-27 08:15:00 Test Item Value Reference Range Interpretation Comments Globulin (test code = Globulin) 3.8 2.7-4.2 [facility]2018-06-27 08:15:00 Test Item Value Reference Range Interpretation Comments A/G Ratio (test code = A/G Ratio) 0.9 1 0.7-1.6 [facility]2018-06-27 08:15:00 Test Item Value Reference Range Interpretation Comments AGAP (test code = AGAP) 12.5 10.0-20.0 [facility] HospitalLcxwkrcHRPHEMXPMC8246-49-99 08:15:00 Test Item Value Reference Range Interpretation Comments MCHC (test code = MCHC) 35.2 32.0-36.0 [facility] HospitalSjxufgnHUEQKLEBEB3223-40-45 08:15:00 Test Item Value Reference Range Interpretation Comments MPV (test code = MPV) 8.0 7.4-10.4 [facility] HospitalAjtwgnySNKXLHQKZK9301-58-51 08:15:00 Test Item Value Reference Range Interpretation Comments Platelet (test code = Platelet) 235 133-450 [facility]2018-06-27 08:15:00 Test Item Value Reference Range Interpretation Comments Total Protein (test code = Total 7.2 6.4-8.4 Protein) [facility] HospitalXekyoihXJFNLYWMUF1588-66-20 08:15:00 Test Item Value Reference Range Interpretation Comments RDW (test code = RDW) 14.4 11.5-14.5 [facility] HospitalVyigtdzANVLACZTRS8552-44-45 08:15:00 Test Item Value Reference Range Interpretation Comments WBC (test code = WBC) 10.0 3.7-10.4 [facility] HospitalDblgbirDGSXSRCPNL8334-86-71 08:15:00 Test Item Value Reference Range Interpretation Comments Hgb (test code = Hgb) 12.2 12.0-16.0 [facility] HospitalJutqnphMDIJJWIFYB9039-74-76 08:15:00 Test Item Value Reference Range Interpretation Comments Hct (test code = Hct) 34.7 36.0-48.0 [facility] HospitalPwukpluWTVIYMJSAS3577-68-73 08:15:00 Test Item Value Reference Range Interpretation Comments RBC (test code = RBC) 4.12 4.20-5.40 [facility] HospitalZpvqpbqSZSKHLCGDD4760-45-25 08:15:00 Test Item Value Reference Range Interpretation Comments MCV (test code = MCV) 84.3 80.0-98.0 [facility] HospitalOteerpxQUBJEZMRJK9661-74-82 08:15:00 Test Item Value Reference Range Interpretation Comments MCH (test code = MCH) 29.7 pg 27.0-31.0 [facility] HospitalFgupevxXPRCGDTGBC1362-33-20 08:15:00 Test Item Value Reference Range Interpretation Comments Segs (test code = Segs) 51.4 45.0-75.0 [facility] HospitalSimebsjKMLAWTXWXB5924-47-10 08:15:00 Test Item Value Reference Range Interpretation Comments Monocytes (test code = Monocytes) 6.2 2.0-12.0 [facility] HospitalXwsleeeSTFNKUUUAE8319-34-29 08:15:00 Test Item Value Reference Range Interpretation Comments Lymphocytes (test code = Lymphocytes) 40.1 20.0-40.0 [facility]2018-06-27 08:15:00 Test Item Value Reference Range Interpretation Comments Alk Phos (test code = Alk Phos) 87 39-136 [facility] HospitalStjiryuXIJNOCLLWL5495-70-54 08:15:00 Test Item Value Reference Range Interpretation Comments Eosinophils (test code = 1.3 See_Comment [A utomated message] The Eosinophils) system which ge nerated this result tra nsmitted reference range : <=4.0. The reference r yuridia was not used to int erpret this result as normal/abnormal . [facility] HospitalMczixqdVMAILEIVGP6609-86-96 08:15:00 Test Item Value Reference Range Interpretation Comments Eosinophils # (test code 0.1 See_Comment [A utomated message] The = Eosinophils #) system whic h generated this result tra nsmitted reference range : <=0.5. The reference r yuridia was not used to int erpret this result as normal/abnormal . [facility] HospitalFxvjlklKKFMCTXWXY4819-78-99 08:15:00 Test Item Value Reference Range Interpretation Comments Monocytes # (test code 0.6 See_Comment [Aut omated message] The = Monocytes #) system which generated this result tra nsmitted reference range : <=0.8. The reference r yuridia was not used to int erpret this result as normal/abnormal . [facility] HospitalLzeralnAHECTDXEOX4377-61-96 08:15:00 Test Item Value Reference Range Interpretation Comments Segs-Bands # (test code = Segs-Bands #) 5.1 1.5-8.1 [facility] HospitalZmnzghuOUNSCOATFV8713-43-29 08:15:00 Test Item Value Reference Range Interpretation Comments Basophils (test code = 1.0 See_Comment [Aut omated message] The Basophils) system which ge nerated this result tra nsmitted reference range : <=1.0. The reference r yuridia was not used to int erpret this result as normal/abnormal . [facility] HospitalFlrwturLWZUASVYJI3419-44-40 08:15:00 Test Item Value Reference Range Interpretation Comments Lymphocytes # (test code = Lymphocytes 4.0 1.0-5.5 #) [facility] HospitalHskujlqLUYLQJEQMA9967-72-36 08:15:00 Test Item Value Reference Range Interpretation Comments Basophils # (test code 0.1 See_Comment [Aut omated message] The = Basophils #) system which generated this result tra nsmitted reference range : <=0.2. The reference r yuridia was not used to int erpret this result as normal/abnormal . [facility]2018-06-27 08:15:00 Test Item Value Reference Range Interpretation Comments Magnesium Lvl (test code = Magnesium 1.4 1.8-2.4 Lvl) [facility]2018-06-27 08:15:00 Test Item Value Reference Range Interpretation Comments Phosphorus (test code = Phosphorus) 2.7 2.5-4.5 [facility]2018-06-27 08:15:00 Test Item Value Reference Range Interpretation Comments eGFR (test code = eGFR) 98 [facility]2018-06-27 08:15:00 Test Item Value Reference Range Interpretation Comments Bili Total (test code = Bili Total) 0.3 0.2-1.3 [facility]2018-06-27 08:15:00 Test Item Value Reference Range Interpretation Comments Chloride Lvl (test code = Chloride Lvl) 107 95-109 [facility]2018-06-27 08:15:00 Test Item Value Reference Range Interpretation Comments CO2 (test code = CO2) 25 24-32 [facility]2018-06-27 08:15:00 Test Item Value Reference Range Interpretation Comments AST (test code = AST) 24 See_Comment [Auto mated message] The system which ge nerated this result transmit uma reference range : <=37. The reference range was not used to interpr et this result as katie l/abnormal. [facility]2018-06-27 08:15:00 Test Item Value Reference Range Interpretation Comments Albumin Lvl (test code = Albumin Lvl) 3.4 3.5-5.0 [facility]2018-06-27 08:15:00 Test Item Value Reference Range Interpretation Comments ALT (test code = ALT) 16 See_Comment [Auto mated message] The system which ge nerated this result transmit uma reference range : <=65. The reference range was not used to interpr et this result as katie l/abnormal. [facility]2018-06-27 08:15:00 Test Item Value Reference Range Interpretation Comments Calcium Lvl (test code = Calcium Lvl) 8.5 8.5-10.5 [facility]2018-06-27 08:15:00 Test Item Value Reference Range Interpretation Comments Total Protein (test code = Total 7.2 6.4-8.4 Protein) [facility]2018-06-27 08:15:00 Test Item Value Reference Range Interpretation Comments Alk Phos (test code = Alk Phos) 87 39-136 [facility]2018-06-27 08:15:00 Test Item Value Reference Range Interpretation Comments Bili Total (test code = Bili Total) 0.3 0.2-1.3 [facility]2018-06-27 08:15:00 Test Item Value Reference Range Interpretation Comments Potassium Lvl (test code = Potassium 3.5 3.5-5.1 Lvl) [facility]2018-06-27 08:15:00 Test Item Value Reference Range Interpretation Comments Potassium Lvl (test code = Potassium 3.5 3.5-5.1 Lvl) [facility]2018-06-27 08:15:00 Test Item Value Reference Range Interpretation Comments Creatinine Lvl (test code = Creatinine 0.68 0.50-1.40 Lvl) [facility]2018-06-27 08:15:00 Test Item Value Reference Range Interpretation Comments Glucose Lvl (test code = Glucose Lvl) 247 70-99 [facility]2018-06-27 08:15:00 Test Item Value Reference Range Interpretation Comments BUN (test code = BUN) 12 7-22 [facility]2018-06-27 08:15:00 Test Item Value Reference Range Interpretation Comments Sodium Lvl (test code = Sodium Lvl) 141 135-145 [place] 153338-06-27 08:15:00 Test Item Value Reference Range Interpretation Comments B/C Ratio (test code = B/C Ratio) 18 1 6-25 [facility]2018-06-27 08:15:00 Test Item Value Reference Range Interpretation Comments Globulin (test code = Globulin) 3.8 2.7-4.2 [facility]2018-06-27 08:15:00 Test Item Value Reference Range Interpretation Comments A/G Ratio (test code = A/G Ratio) 0.9 1 0.7-1.6 [facility]2018-06-27 08:15:00 Test Item Value Reference Range Interpretation Comments AGAP (test code = AGAP) 12.5 10.0-20.0 [facility] HospitalRlwaqwuAOABWFCDHG0782-42-01 08:15:00 Test Item Value Reference Range Interpretation Comments MCHC (test code = MCHC) 35.2 32.0-36.0 [facility] HospitalOtihjmmLIRZDDJAXO1251-30-84 08:15:00 Test Item Value Reference Range Interpretation Comments MPV (test code = MPV) 8.0 7.4-10.4 [facility]2018-06-27 08:15:00 Test Item Value Reference Range Interpretation Comments Creatinine Lvl (test code = Creatinine 0.68 0.50-1.40 Lvl) [facility] HospitalQocmegiBCEPVNIPIR2128-91-52 08:15:00 Test Item Value Reference Range Interpretation Comments Platelet (test code = Platelet) 235 133-450 [facility] HospitalMmuatiyRZFVJBBMTO4264-14-84 08:15:00 Test Item Value Reference Range Interpretation Comments RDW (test code = RDW) 14.4 11.5-14.5 [facility] HospitalBakwxprYLNNKEBGVX3391-41-44 08:15:00 Test Item Value Reference Range Interpretation Comments WBC (test code = WBC) 10.0 3.7-10.4 [facility] HospitalZlexijtLQFTWGANBA1097-11-78 08:15:00 Test Item Value Reference Range Interpretation Comments Hgb (test code = Hgb) 12.2 12.0-16.0 [facility] HospitalDxydxwsIUPZVZVJKQ4208-19-50 08:15:00 Test Item Value Reference Range Interpretation Comments Hct (test code = Hct) 34.7 36.0-48.0 [facility] HospitalNtgclmfYOJATVODJV0213-12-03 08:15:00 Test Item Value Reference Range Interpretation Comments RBC (test code = RBC) 4.12 4.20-5.40 [facility] HospitalCadqwnuLRLBSOVHIX6131-30-64 08:15:00 Test Item Value Reference Range Interpretation Comments MCV (test code = MCV) 84.3 80.0-98.0 [facility]cjusbjDQDRGVDNAF3376[facility]40-[facility]:15:00 Test Item Value Reference Range Interpretation Comments MCH (test code = MCH) 29.7 pg 27.0-31.0 [facility]GhodncuHBVCIBZAIH6015-82-86 08:15:00 Test Item Value Reference Range Interpretation Comments Segs (test code = Segs) 51.4 45.0-75.0 [facility] HospitalKchnkqeEVOQVZSMHR0065-43-73 08:15:00 Test Item Value Reference Range Interpretation Comments Monocytes (test code = Monocytes) 6.2 2.0-12.0 [facility]2018-06-27 08:15:00 Test Item Value Reference Range Interpretation Comments Glucose Lvl (test code = Glucose Lvl) 247 70-99 [facility] HospitalCpcxuuvYESRGWDVRS0770-24-39 08:15:00 Test Item Value Reference Range Interpretation Comments Lymphocytes (test code = Lymphocytes) 40.1 20.0-40.0 [facility] HospitalZnaaljsOHVDEBVWGQ9895-78-91 08:15:00 Test Item Value Reference Range Interpretation Comments Eosinophils (test code = 1.3 See_Comment [A utomated message] The Eosinophils) system which ge nerated this result tra nsmitted reference range : <=4.0. The reference r yuridia was not used to int erpret this result as normal/abnormal . [facility] HospitalTmahohhCDYCZWUWBB5583-92-53 08:15:00 Test Item Value Reference Range Interpretation Comments Eosinophils # (test code 0.1 See_Comment [A utomated message] The = Eosinophils #) system whic h generated this result tra nsmitted reference range : <=0.5. The reference r yuridia was not used to int erpret this result as normal/abnormal . [facility] HospitalDapvukrKPRHJCOGOT6536-15-81 08:15:00 Test Item Value Reference Range Interpretation Comments Monocytes # (test code 0.6 See_Comment [Aut omated message] The = Monocytes #) system which generated this result tra nsmitted reference range : <=0.8. The reference r yuridia was not used to int erpret this result as normal/abnormal . [facility] HospitalNibksbkYMUTBMBBYD5810-74-87 08:15:00 Test Item Value Reference Range Interpretation Comments Segs-Bands # (test code = Segs-Bands #) 5.1 1.5-8.1 [facility] HospitalIolfqfbUAUMJEMKKL7803-81-85 08:15:00 Test Item Value Reference Range Interpretation Comments Basophils (test code = 1.0 See_Comment [Aut omated message] The Basophils) system which ge nerated this result tra nsmitted reference range : <=1.0. The reference r yuridia was not used to int erpret this result as normal/abnormal . [facility] HospitalRbqbyolNLVVBVERGO4931-71-59 08:15:00 Test Item Value Reference Range Interpretation Comments Lymphocytes # (test code = Lymphocytes 4.0 1.0-5.5 #) [facility] HospitalUbqkfggMHEQXLTBUK6843-62-84 08:15:00 Test Item Value Reference Range Interpretation Comments Basophils # (test code 0.1 See_Comment [Aut omated message] The = Basophils #) system which generated this result tra nsmitted reference range : <=0.2. The reference r yuridia was not used to int erpret this result as normal/abnormal . [facility]2018-06-27 08:15:00 Test Item Value Reference Range Interpretation Comments BUN (test code = BUN) 12 7-22 [facility]2018-06-27 08:15:00 Test Item Value Reference Range Interpretation Comments Sodium Lvl (test code = Sodium Lvl) 141 135-145 [facility]2018-06-27 08:15:00 Test Item Value Reference Range Interpretation Comments B/C Ratio (test code = B/C Ratio) 18 1 6-25 [facility]2018-06-27 08:15:00 Test Item Value Reference Range Interpretation Comments Globulin (test code = Globulin) 3.8 2.7-4.2 [facility]2018-06-27 08:15:00 Test Item Value Reference Range Interpretation Comments A/G Ratio (test code = A/G Ratio) 0.9 1 0.7-1.6 [facility]2018-06-27 08:15:00 Test Item Value Reference Range Interpretation Comments AGAP (test code = AGAP) 12.5 10.0-20.0 [facility]PtvewavULDDYOKWEC4064-37-15 08:15:00 Test Item Value Reference Range Interpretation Comments MCHC (test code = MCHC) 35.2 32.0-36.0 [facility] HospitalRuuglktYGWVVXHIXA8504-77-04 08:15:00 Test Item Value Reference Range Interpretation Comments MPV (test code = MPV) 8.0 7.4-10.4 [facility] HospitalMjjzjqpSCQFDTCBPN3390-87-16 08:15:00 Test Item Value Reference Range Interpretation Comments Platelet (test code = Platelet) 235 133-450 [facility] HospitalNfrhuqaYPLOCXMNXM8426-82-79 08:15:00 Test Item Value Reference Range Interpretation Comments RDW (test code = RDW) 14.4 11.5-14.5 [facility] HospitalJpytnnhPLASLXRMKA0080-40-29 08:15:00 Test Item Value Reference Range Interpretation Comments WBC (test code = WBC) 10.0 3.7-10.4 [facility] HospitalUsconclXXQSBCZZRW5156-57-46 08:15:00 Test Item Value Reference Range Interpretation Comments Hgb (test code = Hgb) 12.2 12.0-16.0 [facility] HospitalEkstdkvAHGXJPZBSQ6452-29-32 08:15:00 Test Item Value Reference Range Interpretation Comments Hct (test code = Hct) 34.7 36.0-48.0 [facility] HospitalSftzsupLYOIPOKEWW6762-09-58 08:15:00 Test Item Value Reference Range Interpretation Comments RBC (test code = RBC) 4.12 4.20-5.40 [facility] HospitalTcptcqjOFEVRALLQS8371-54-49 08:15:00 Test Item Value Reference Range Interpretation Comments MCV (test code = MCV) 84.3 80.0-98.0 [facility] HospitalJmmnhupOIOXBHYBXP8947-65-90 08:15:00 Test Item Value Reference Range Interpretation Comments MCH (test code = MCH) 29.7 pg 27.0-31.0 [facility] HospitalFzmxruzYUROEEGAQI6906-95-66 08:15:00 Test Item Value Reference Range Interpretation Comments Segs (test code = Segs) 51.4 45.0-75.0 [facility] HospitalBlylxkrNXZUPVVTIR6837-62-13 08:15:00 Test Item Value Reference Range Interpretation Comments Monocytes (test code = Monocytes) 6.2 2.0-12.0 [facility] HospitalUxrmjnrSETDFLEEXP8817-27-90 08:15:00 Test Item Value Reference Range Interpretation Comments Lymphocytes (test code = Lymphocytes) 40.1 20.0-40.0 [facility] HospitalWhuybvyQQIKZUHJKW3822-64-69 08:15:00 Test Item Value Reference Range Interpretation Comments Eosinophils (test code = 1.3 See_Comment [A utomated message] The Eosinophils) system which ge nerated this result tra nsmitted reference range : <=4.0. The reference r yuridia was not used to int erpret this result as normal/abnormal . [facility] HospitalCccudgyIRGQXGEPLL4683-74-88 08:15:00 Test Item Value Reference Range Interpretation Comments Eosinophils # (test code 0.1 See_Comment [A utomated message] The = Eosinophils #) system wh h generated this result tra nsmitted reference range : <=0.5. The reference r yuridia was not used to int erpret this result as normal/abnormal . [facility] HospitalDieubldBQRTCFUZKD2779-09-24 08:15:00 Test Item Value Reference Range Interpretation Comments Monocytes # (test code 0.6 See_Comment [Aut omated message] The = Monocytes #) system which generated this result tra nsmitted reference range : <=0.8. The reference r yuridia was not used to int erpret this result as normal/abnormal . [facility] HospitalZjqsfekWLSVUZBRRA2161-98-42 08:15:00 Test Item Value Reference Range Interpretation Comments Segs-Bands # (test code = Segs-Bands #) 5.1 1.5-8.1 [facility] HospitalYtdwlieDSIVLLUWRJ0165-30-95 08:15:00 Test Item Value Reference Range Interpretation Comments Basophils (test code = 1.0 See_Comment [Aut omated message] The Basophils) system which ge nerated this result tra nsmitted reference range : <=1.0. The reference r yuridia was not used to int erpret this result as normal/abnormal . [facility] HospitalYgmvjqmBJYIIMCZWC4185-28-63 08:15:00 Test Item Value Reference Range Interpretation Comments Lymphocytes # (test code = Lymphocytes 4.0 1.0-5.5 #) [facility] HospitalKxzlwlyFKMRDKLEFO1587-49-97 08:15:00 Test Item Value Reference Range Interpretation Comments Basophils # (test code 0.1 See_Comment [Aut omated message] The = Basophils #) system which generated this result tra nsmitted reference range : <=0.2. The reference r yuridia was not used to int erpret this result as normal/abnormal . [facility]2018-06-27 08:15:00 Test Item Value Reference Range Interpretation Comments Magnesium Lvl (test code = Magnesium 1.4 1.8-2.4 Lvl) [facility]2018-06-27 08:15:00 Test Item Value Reference Range Interpretation Comments Phosphorus (test code = Phosphorus) 2.7 2.5-4.5 [facility]2018-06-27 08:15:00 Test Item Value Reference Range Interpretation Comments eGFR (test code = eGFR) 98 [facility]2018-06-27 08:15:00 Test Item Value Reference Range Interpretation Comments Chloride Lvl (test code = Chloride Lvl) 107 95-109 [facility]2018-06-27 08:15:00 Test Item Value Reference Range Interpretation Comments CO2 (test code = CO2) 25 24-32 [facility]2018-06-27 08:15:00 Test Item Value Reference Range Interpretation Comments AST (test code = AST) 24 See_Comment [Auto mated message] The system which ge nerated this result transmit uma reference range : <=37. The reference range was not used to interpr et this result as katie l/abnormal. [facility]2018-06-27 08:15:00 Test Item Value Reference Range Interpretation Comments Albumin Lvl (test code = Albumin Lvl) 3.4 3.5-5.0 [facility]2018-06-27 08:15:00 Test Item Value Reference Range Interpretation Comments ALT (test code = ALT) 16 See_Comment [Auto mated message] The system which ge nerated this result transmit uma reference range : <=65. The reference range was not used to interpr et this result as katie l/abnormal. [facility]2018-06-27 08:15:00 Test Item Value Reference Range Interpretation Comments Calcium Lvl (test code = Calcium Lvl) 8.5 8.5-10.5 [facility]2018-06-27 08:15:00 Test Item Value Reference Range Interpretation Comments Total Protein (test code = Total 7.2 6.4-8.4 Protein) [facility]2018-06-27 08:15:00 Test Item Value Reference Range Interpretation Comments Alk Phos (test code = Alk Phos) 87 39-136 [place] 153338-06-27 08:15:00 Test Item Value Reference Range Interpretation Comments Bili Total (test code = Bili Total) 0.3 0.2-1.3 [place] 153338-06-27 08:15:00 Test Item Value Reference Range Interpretation Comments Potassium Lvl (test code = Potassium 3.5 3.5-5.1 Lvl) [place] 153338-06-27 08:15:00 Test Item Value Reference Range Interpretation Comments Creatinine Lvl (test code = Creatinine 0.68 0.50-1.40 Lvl) [place] 153338-06-27 08:15:00 Test Item Value Reference Range Interpretation Comments Glucose Lvl (test code = Glucose Lvl) 247 70-99 [facility]2018-06-27 08:15:00 Test Item Value Reference Range Interpretation Comments BUN (test code = BUN) 12 7-22 [place] 153338-06-27 08:15:00 Test Item Value Reference Range Interpretation Comments Magnesium Lvl (test code = Magnesium 1.4 1.8-2.4 Lvl) [facility]2018-06-27 08:15:00 Test Item Value Reference Range Interpretation Comments Phosphorus (test code = Phosphorus) 2.7 2.5-4.5 [place] 153338-06-27 08:15:00 Test Item Value Reference Range Interpretation Comments eGFR (test code = eGFR) 98 [place] 153338-06-27 08:15:00 Test Item Value Reference Range Interpretation Comments Chloride Lvl (test code = Chloride Lvl) 107 95-109 [place] 153338-06-27 08:15:00 Test Item Value Reference Range Interpretation Comments CO2 (test code = CO2) 25 24-32 [place] 153338-06-27 08:15:00 Test Item Value Reference Range Interpretation Comments AST (test code = AST) 24 See_Comment [Auto mated message] The system which ge nerated this result transmit uma reference range : <=37. The reference range was not used to interpr et this result as katie l/abnormal. [place] 153338-06-27 08:15:00 Test Item Value Reference Range Interpretation Comments Albumin Lvl (test code = Albumin Lvl) 3.4 3.5-5.0 [facility]2018-06-27 08:15:00 Test Item Value Reference Range Interpretation Comments ALT (test code = ALT) 16 See_Comment [Auto mated message] The system which ge nerated this result transmit uma reference range : <=65. The reference range was not used to interpr et this result as katie l/abnormal. [facility]2018-06-27 08:15:00 Test Item Value Reference Range Interpretation Comments Calcium Lvl (test code = Calcium Lvl) 8.5 8.5-10.5 [facility]2018-06-27 08:15:00 Test Item Value Reference Range Interpretation Comments Total Protein (test code = Total 7.2 6.4-8.4 Protein) [facility]2018-06-27 08:15:00 Test Item Value Reference Range Interpretation Comments Alk Phos (test code = Alk Phos) 87 39-136 [facility]2018-06-27 08:15:00 Test Item Value Reference Range Interpretation Comments Bili Total (test code = Bili Total) 0.3 0.2-1.3 [facility]2018-06-27 08:15:00 Test Item Value Reference Range Interpretation Comments Potassium Lvl (test code = Potassium 3.5 3.5-5.1 Lvl) [facility]2018-06-27 08:15:00 Test Item Value Reference Range Interpretation Comments Creatinine Lvl (test code = Creatinine 0.68 0.50-1.40 Lvl) [facility]2018-06-27 08:15:00 Test Item Value Reference Range Interpretation Comments Glucose Lvl (test code = Glucose Lvl) 247 70-99 [facility]2018-06-27 08:15:00 Test Item Value Reference Range Interpretation Comments BUN (test code = BUN) 12 7-22 [facility]2018-06-27 08:15:00 Test Item Value Reference Range Interpretation Comments Sodium Lvl (test code = Sodium Lvl) 141 135-145 [facility]2018-06-27 08:15:00 Test Item Value Reference Range Interpretation Comments B/C Ratio (test code = B/C Ratio) 18 1 6-25 [facility]2018-06-27 08:15:00 Test Item Value Reference Range Interpretation Comments Globulin (test code = Globulin) 3.8 2.7-4.2 [facility] ZEMVX4582-54-95 08:15:00 Test Item Value Reference Range Interpretation Comments A/G Ratio (test code = A/G Ratio) 0.9 1 0.7-1.6 [facility] GJHZQ2012-24-70 08:15:00 Test Item Value Reference Range Interpretation Comments AGAP (test code = AGAP) 12.5 10.0-20.0 [facility]EdefacrIQUIXONJOA5850-31-39 08:15:00 Test Item Value Reference Range Interpretation Comments MCHC (test code = MCHC) 35.2 32.0-36.0 [facility] HospitalRuvzikqZSBQRQXGES6523-66-93 08:15:00 Test Item Value Reference Range Interpretation Comments MPV (test code = MPV) 8.0 7.4-10.4 [facility] HospitalRuioabeQBAMTSDOFV6241-50-30 08:15:00 Test Item Value Reference Range Interpretation Comments Platelet (test code = Platelet) 235 133-450 [facility] HospitalAzvzjsgHHLQDJEMHT6917-61-46 08:15:00 Test Item Value Reference Range Interpretation Comments RDW (test code = RDW) 14.4 11.5-14.5 [facility] HospitalEpganpjLBRXGKOXXA4178-19-61 08:15:00 Test Item Value Reference Range Interpretation Comments WBC (test code = WBC) 10.0 3.7-10.4 [facility] HospitalCjgyvvtHTNKEACDYN1343-48-62 08:15:00 Test Item Value Reference Range Interpretation Comments Hgb (test code = Hgb) 12.2 12.0-16.0 [facility] HospitalMkwsmfcNDRVCOVBII6885-81-97 08:15:00 Test Item Value Reference Range Interpretation Comments Hct (test code = Hct) 34.7 36.0-48.0 [facility] HospitalMfhuhqxEMZNLAMHVZ3295-43-60 08:15:00 Test Item Value Reference Range Interpretation Comments RBC (test code = RBC) 4.12 4.20-5.40 [facility] HospitalPnmelgyDEJKVCKGTX7104-62-93 08:15:00 Test Item Value Reference Range Interpretation Comments MCV (test code = MCV) 84.3 80.0-98.0 [facility] HospitalJeghitbHBEBLPUVOF7389-14-47 08:15:00 Test Item Value Reference Range Interpretation Comments MCH (test code = MCH) 29.7 pg 27.0-31.0 [facility] HospitalBdschsxTWVEGHEPHV1938-85-54 08:15:00 Test Item Value Reference Range Interpretation Comments Segs (test code = Segs) 51.4 45.0-75.0 [facility] HospitalLvwegjfSGWYNTGYHD9910-67-57 08:15:00 Test Item Value Reference Range Interpretation Comments Monocytes (test code = Monocytes) 6.2 2.0-12.0 [facility] HospitalXplivppOKNBVFPGKH0235-64-18 08:15:00 Test Item Value Reference Range Interpretation Comments Lymphocytes (test code = Lymphocytes) 40.1 20.0-40.0 [facility] HospitalWzbpecgDYMZBHZWBR6512-55-28 08:15:00 Test Item Value Reference Range Interpretation Comments Eosinophils (test code = 1.3 See_Comment [A utomated message] The Eosinophils) system which ge nerated this result tra nsmitted reference range : <=4.0. The reference r yuridia was not used to int erpret this result as normal/abnormal . [facility] HospitalKdofquxXZCXESURJP2478-02-02 08:15:00 Test Item Value Reference Range Interpretation Comments Eosinophils # (test code 0.1 See_Comment [A utomated message] The = Eosinophils #) system whic h generated this result tra nsmitted reference range : <=0.5. The reference r yuridia was not used to int erpret this result as normal/abnormal . [facility] HospitalRbxvvvqZAHSGZXQRV2485-59-94 08:15:00 Test Item Value Reference Range Interpretation Comments Monocytes # (test code 0.6 See_Comment [Aut omated message] The = Monocytes #) system which generated this result tra nsmitted reference range : <=0.8. The reference r yuridia was not used to int erpret this result as normal/abnormal . [facility] HospitalYdxkbtuPVMWMGUDUR5785-73-22 08:15:00 Test Item Value Reference Range Interpretation Comments Segs-Bands # (test code = Segs-Bands #) 5.1 1.5-8.1 [facility] HospitalJbiyfmyHEEJJFTESR6591-24-56 08:15:00 Test Item Value Reference Range Interpretation Comments Basophils (test code = 1.0 See_Comment [Aut omated message] The Basophils) system which ge nerated this result tra nsmitted reference range : <=1.0. The reference r yuridia was not used to int erpret this result as normal/abnormal . [facility] HospitalKtsboibYLHFRHRIVQ5127-64-76 08:15:00 Test Item Value Reference Range Interpretation Comments Lymphocytes # (test code = Lymphocytes 4.0 1.0-5.5 #) [facility] HospitalTnahnupVABBELDDRB3820-83-39 08:15:00 Test Item Value Reference Range Interpretation Comments Basophils # (test code 0.1 See_Comment [Aut omated message] The = Basophils #) system which generated this result tra nsmitted reference range : <=0.2. The reference r yuridia was not used to int erpret this result as normal/abnormal . [facility]2018-06-27 08:15:00 Test Item Value Reference Range Interpretation Comments Sodium Lvl (test code = Sodium Lvl) 141 135-145 [facility]2018-06-27 08:15:00 Test Item Value Reference Range Interpretation Comments B/C Ratio (test code = B/C Ratio) 18 1 6-25 [place] 153338-06-27 08:15:00 Test Item Value Reference Range Interpretation Comments Globulin (test code = Globulin) 3.8 2.7-4.2 [facility]2018-06-27 08:15:00 Test Item Value Reference Range Interpretation Comments A/G Ratio (test code = A/G Ratio) 0.9 1 0.7-1.6 [place] 153338-06-27 08:15:00 Test Item Value Reference Range Interpretation Comments AGAP (test code = AGAP) 12.5 10.0-20.0 [facility] HospitalCzwjeogCHKVDBNNRP1312-19-20 08:15:00 Test Item Value Reference Range Interpretation Comments MCHC (test code = MCHC) 35.2 32.0-36.0 [facility] HospitalCcrohdbUUBXOKIQCN2377-30-37 08:15:00 Test Item Value Reference Range Interpretation Comments MPV (test code = MPV) 8.0 7.4-10.4 [facility] HospitalWaegtwwAUQHFDMIML9742-35-08 08:15:00 Test Item Value Reference Range Interpretation Comments Platelet (test code = Platelet) 235 133-450 [facility] HospitalKrjavjhSGDSZSVWAP5806-62-12 08:15:00 Test Item Value Reference Range Interpretation Comments RDW (test code = RDW) 14.4 11.5-14.5 [facility] HospitalOpmwuvvLBEMXFUOJB6360-17-22 08:15:00 Test Item Value Reference Range Interpretation Comments WBC (test code = WBC) 10.0 3.7-10.4 [facility] HospitalCmfwvwqYVRZTMSAXQ5388-38-36 08:15:00 Test Item Value Reference Range Interpretation Comments Hgb (test code = Hgb) 12.2 12.0-16.0 [facility] HospitalKysvfroYKLGJKCRFA4620-07-47 08:15:00 Test Item Value Reference Range Interpretation Comments Hct (test code = Hct) 34.7 36.0-48.0 [facility] HospitalLrfarakRSFRWFMFNG2309-14-65 08:15:00 Test Item Value Reference Range Interpretation Comments RBC (test code = RBC) 4.12 4.20-5.40 [facility] HospitalQrgpwybHEOBKVNMRT4832-99-36 08:15:00 Test Item Value Reference Range Interpretation Comments MCV (test code = MCV) 84.3 80.0-98.0 [facility] HospitalIimqidhJPJXVERLLU0293-90-69 08:15:00 Test Item Value Reference Range Interpretation Comments MCH (test code = MCH) 29.7 pg 27.0-31.0 [facility] HospitalSwiananWPUELEHHMI7532-07-15 08:15:00 Test Item Value Reference Range Interpretation Comments Segs (test code = Segs) 51.4 45.0-75.0 [facility] HospitalRtgsopeSSIHQZQOCU8030-21-13 08:15:00 Test Item Value Reference Range Interpretation Comments Monocytes (test code = Monocytes) 6.2 2.0-12.0 [facility] HospitalIgxfjlzDEGDHEWWHM6458-02-85 08:15:00 Test Item Value Reference Range Interpretation Comments Lymphocytes (test code = Lymphocytes) 40.1 20.0-40.0 [facility] HospitalBqcwukqYBQHYIHBIN2926-47-72 08:15:00 Test Item Value Reference Range Interpretation Comments Eosinophils (test code = 1.3 See_Comment [A utomated message] The Eosinophils) system which ge nerated this result tra nsmitted reference range : <=4.0. The reference r yuridia was not used to int erpret this result as normal/abnormal . [facility] HospitalGjpytssEFOWTYDCUZ5268-01-27 08:15:00 Test Item Value Reference Range Interpretation Comments Eosinophils # (test code 0.1 See_Comment [A utomated message] The = Eosinophils #) system whic h generated this result tra nsmitted reference range : <=0.5. The reference r yuridia was not used to int erpret this result as normal/abnormal . [facility] HospitalGepfnqcFNOQQTPXCU7705-09-69 08:15:00 Test Item Value Reference Range Interpretation Comments Monocytes # (test code 0.6 See_Comment [Aut omated message] The = Monocytes #) system which generated this result tra nsmitted reference range : <=0.8. The reference r yuridia was not used to int erpret this result as normal/abnormal . [facility] HospitalVedkfmqMAYWWLJXJO7580-44-79 08:15:00 Test Item Value Reference Range Interpretation Comments Segs-Bands # (test code = Segs-Bands #) 5.1 1.5-8.1 [facility] HospitalTcfmiqlQCQWDCXQDS8725-38-46 08:15:00 Test Item Value Reference Range Interpretation Comments Basophils (test code = 1.0 See_Comment [Aut omated message] The Basophils) system which ge nerated this result tra nsmitted reference range : <=1.0. The reference r yuridia was not used to int erpret this result as normal/abnormal . [facility]2018-06-26 10:22:00 Test Item Value Reference Range Interpretation Comments UA Nitrite (test code Negative (09/15/17 5:22 = UA Nitrite) AM) [facility]2018-06-26 10:22:00 Test Item Value Reference Range Interpretation Comments UA Protein (test code = UA Negative mg/dL Protein) [facility]2018-06-26 10:22:00 Test Item Value Reference Range Interpretation Comments UA Glucose (test code = UA Negative mg/dL Glucose) [facility]2018-06-26 10:22:00 Test Item Value Reference Range Interpretation Comments UA Ketones (test code = UA Negative mg/dL Ketones) [facility]2018-06-26 10:22:00 Test Item Value Reference Range Interpretation Comments UA Bili (test code = Negative *NA*(09/15/17 UA Bili) 5:22 AM) [facility]2018-06-26 10:22:00 Test Item Value Reference Range Interpretation Comments UA Blood (test code = Moderate *ABN*(09/15/17 UA Blood) 5:22 AM) [facility] 10:22:00 Test Item Value Reference Range Interpretation Comments UA Color (test code = Yellow *NA*(09/15/17 UA Color) 5:22 AM) [facility] [id number] 10:22:00 Test Item Value Reference Range Interpretation Comments UA Turbidity (test code = Clear (09/15/17 5:22 UA Turbidity) AM) [facility] [id number] 10:22:00 Test Item Value Reference Range Interpretation Comments UA Spec Grav (test code = UA Spec 1.017 1 Grav) [facility] [id number] 10:22:00 Test Item Value Reference Range Interpretation Comments UA pH (test code = UA pH) 5.0 1 5.0-8.0 [facility] [id number] 10:22:00 Test Item Value Reference Range Interpretation Comments UA Bacteria (test code = UA Occasional /HPF Bacteria) [facility] [id number] 10:22:00 Test Item Value Reference Range Interpretation Comments UA Mucus (test code = UA Mucus) Few /LPF [facility] [id number] 10:22:00 Test Item Value Reference Range Interpretation Comments Culture: Urine (test code = No Growth Culture: Urine) [facility] [id number] 10:22:00 Test Item Value Reference Range Interpretation Comments U Phencyc Scr (test Negative *NA*(09/15/17 code = U Phencyc Scr) 5:22 AM) [facility] [id number] 10:22:00 Test Item Value Reference Range Interpretation Comments U Opiate Scr (test Positive *ABN*(09/15/17 code = U Opiate Scr) 5:22 AM) [facility] [id number] 10:22:00 Test Item Value Reference Range Interpretation Comments UDS Note (test code = See Note (09/15/17 5:22 UDS Note) AM) [facility] [id number] 10:22:00 Test Item Value Reference Range Interpretation Comments U Cannab Scr (test Negative *NA*(09/15/17 code = U Cannab Scr) 5:22 AM) [facility] [id number] 10:22:00 Test Item Value Reference Range Interpretation Comments U Amph Scr (test code Negative *NA*(09/15/17 = U Amph Scr) 5:22 AM) [facility] [id number] 10:22:00 Test Item Value Reference Range Interpretation Comments U Melinda Scr (test code Negative *NA*(09/15/17 = U Melinda Scr) 5:22 AM) [facility] [id number] 10:22:00 Test Item Value Reference Range Interpretation Comments U Benzodia Scr (test Negative *NA*(09/15/17 code = U Benzodia Scr) 5:22 AM) [facility] [id number] 10:22:00 Test Item Value Reference Range Interpretation Comments U Cocaine Scr (test Negative *NA*(09/15/17 code = U Cocaine Scr) 5:22 AM) [facility] [id number] 10:22:00 Test Item Value Reference Range Interpretation Comments UA Urobilinogen (test code = UA <=1.0 mg/dL 0.1-1.0 Urobilinogen) [facility] [id number] 10:22:00 Test Item Value Reference Range Interpretation Comments UA RBC (test code = 19 See_Comment [Automa uma message] The UA RBC) system which ge nerated this result transmit uma reference range : <=2. The reference range was not used to interpr et this result as katie l/abnormal. [facility] [id number] 10:22:00 Test Item Value Reference Range Interpretation Comments UA Leuk Est (test Negative (09/15/17 5:22 code = UA Leuk Est) AM) [facility] [id number] 10:22:00 Test Item Value Reference Range Interpretation Comments UA Sq Epi (test code = UA Sq Occasional /LPF Epi) [facility] [id number] 10:22:00 Test Item Value Reference Range Interpretation Comments UA WBC (test code = 6 See_Comment [Automa uma message] The UA WBC) system which ge nerated this result transmit uma reference range : <=5. The reference range was not used to interpr et this result as katie l/abnormal. [facility] [id number] 10:22:00 Test Item Value Reference Range Interpretation Comments UA Nitrite (test code Negative (09/15/17 5:22 = UA Nitrite) AM) [facility] AND [id number] 10:22:00 Test Item Value Reference Range Interpretation Comments UA Protein (test code = UA Negative mg/dL Protein) [facility] AND [id number] 10:22:00 Test Item Value Reference Range Interpretation Comments UA Glucose (test code = UA Negative mg/dL Glucose) [facility] AND [id number] 10:22:00 Test Item Value Reference Range Interpretation Comments UA Ketones (test code = UA Negative mg/dL Ketones) [facility] AND [id number] 10:22:00 Test Item Value Reference Range Interpretation Comments UA Bili (test code = Negative *NA*(09/15/17 UA Bili) 5:22 AM) [facility] AND [id number] 10:22:00 Test Item Value Reference Range Interpretation Comments UA Blood (test code = Moderate *ABN*(09/15/17 UA Blood) 5:22 AM) [facility] AND [id number] 10:22:00 Test Item Value Reference Range Interpretation Comments UA Color (test code = Yellow *NA*(09/15/17 UA Color) 5:22 AM) [facility] AND [id number] 10:22:00 Test Item Value Reference Range Interpretation Comments UA Turbidity (test code = Clear (09/15/17 5:22 UA Turbidity) AM) [facility] AND [id number] 10:22:00 Test Item Value Reference Range Interpretation Comments UA Spec Grav (test code = UA Spec 1.017 1 Grav) [facility] AND [id number] 10:22:00 Test Item Value Reference Range Interpretation Comments UA pH (test code = UA pH) 5.0 1 5.0-8.0 [facility] AND [id number] 10:22:00 Test Item Value Reference Range Interpretation Comments UA Bacteria (test code = UA Occasional /HPF Bacteria) [facility] AND [id number] 10:22:00 Test Item Value Reference Range Interpretation Comments UA Mucus (test code = UA Mucus) Few /LPF [facility] [id number] 10:22:00 Test Item Value Reference Range Interpretation Comments Culture: Urine (test code = No Growth Culture: Urine) [facility] [id number] 10:22:00 Test Item Value Reference Range Interpretation Comments U Phencyc Scr (test Negative *NA*(09/15/17 code = U Phencyc Scr) 5:22 AM) [facility] [id number] 10:22:00 Test Item Value Reference Range Interpretation Comments U Opiate Scr (test Positive *ABN*(09/15/17 code = U Opiate Scr) 5:22 AM) [facility] [id number] 10:22:00 Test Item Value Reference Range Interpretation Comments UDS Note (test code = See Note (09/15/17 5:22 UDS Note) AM) [facility] [id number] 10:22:00 Test Item Value Reference Range Interpretation Comments U Cannab Scr (test Negative *NA*(09/15/17 code = U Cannab Scr) 5:22 AM) [facility] [id number] 10:22:00 Test Item Value Reference Range Interpretation Comments U Amph Scr (test code Negative *NA*(09/15/17 = U Amph Scr) 5:22 AM) [facility] [id number] 10:22:00 Test Item Value Reference Range Interpretation Comments U Melinda Scr (test code Negative *NA*(09/15/17 = U Melinda Scr) 5:22 AM) [facility] [id number] 10:22:00 Test Item Value Reference Range Interpretation Comments U Benzodia Scr (test Negative *NA*(09/15/17 code = U Benzodia Scr) 5:22 AM) [facility] [id number] 10:22:00 Test Item Value Reference Range Interpretation Comments U Cocaine Scr (test Negative *NA*(09/15/17 code = U Cocaine Scr) 5:22 AM) [facility] [id number] 10:22:00 Test Item Value Reference Range Interpretation Comments UA Urobilinogen (test code = UA <=1.0 mg/dL 0.1-1.0 Urobilinogen) [facility] [id number] 10:22:00 Test Item Value Reference Range Interpretation Comments UA RBC (test code = 19 See_Comment [Automa uma message] The UA RBC) system which ge nerated this result transmit uma reference range : <=2. The reference range was not used to interpr et this result as katie l/abnormal. [facility] AND [id number] 10:22:00 Test Item Value Reference Range Interpretation Comments UA Leuk Est (test Negative (09/15/17 5:22 code = UA Leuk Est) AM) [facility] AND [id number] 10:22:00 Test Item Value Reference Range Interpretation Comments UA Sq Epi (test code = UA Sq Occasional /LPF Epi) [facility] AND [id number] 10:22:00 Test Item Value Reference Range Interpretation Comments UA WBC (test code = 6 See_Comment [Automa uma message] The UA WBC) system which ge nerated this result transmit uma reference range : <=5. The reference range was not used to interpr et this result as katie l/abnormal. [facility] AND [id number] 10:22:00 Test Item Value Reference Range Interpretation Comments UA Nitrite (test code Negative (09/15/17 5:22 = UA Nitrite) AM) [facility] AND [id number] 10:22:00 Test Item Value Reference Range Interpretation Comments UA Protein (test code = UA Negative mg/dL Protein) [facility] AND [id number] 10:22:00 Test Item Value Reference Range Interpretation Comments UA Glucose (test code = UA Negative mg/dL Glucose) [facility] AND [id number] 10:22:00 Test Item Value Reference Range Interpretation Comments UA Ketones (test code = UA Negative mg/dL Ketones) [facility] AND [id number] 10:22:00 Test Item Value Reference Range Interpretation Comments UA Bili (test code = Negative *NA*(09/15/17 UA Bili) 5:22 AM) [facility] AND [id number] 10:22:00 Test Item Value Reference Range Interpretation Comments UA Blood (test code = Moderate *ABN*(09/15/17 UA Blood) 5:22 AM) [facility] AND [id number] 10:22:00 Test Item Value Reference Range Interpretation Comments UA Color (test code = Yellow *NA*(09/15/17 UA Color) 5:22 AM) [facility] [id number] 10:22:00 Test Item Value Reference Range Interpretation Comments UA Turbidity (test code = Clear (09/15/17 5:22 UA Turbidity) AM) [facility] [id number] 10:22:00 Test Item Value Reference Range Interpretation Comments UA Spec Grav (test code = UA Spec 1.017 1 Grav) [facility] [id number] 10:22:00 Test Item Value Reference Range Interpretation Comments UA pH (test code = UA pH) 5.0 1 5.0-8.0 [facility] [id number] 10:22:00 Test Item Value Reference Range Interpretation Comments UA Bacteria (test code = UA Occasional /HPF Bacteria) [facility] [id number] 10:22:00 Test Item Value Reference Range Interpretation Comments UA Mucus (test code = UA Mucus) Few /LPF [facility]: [id number] 10:22:00 Test Item Value Reference Range Interpretation Comments Culture: Urine (test code = No Growth Culture: Urine) [facility] [id number] 10:22:00 Test Item Value Reference Range Interpretation Comments U Phencyc Scr (test Negative *NA*(09/15/17 code = U Phencyc Scr) 5:22 AM) [facility] [id number] 10:22:00 Test Item Value Reference Range Interpretation Comments U Opiate Scr (test Positive *ABN*(09/15/17 code = U Opiate Scr) 5:22 AM) [facility] [id number] 10:22:00 Test Item Value Reference Range Interpretation Comments UDS Note (test code = See Note (09/15/17 5:22 UDS Note) AM) [facility] [id number] 10:22:00 Test Item Value Reference Range Interpretation Comments U Cannab Scr (test Negative *NA*(09/15/17 code = U Cannab Scr) 5:22 AM) [facility] [id number] 10:22:00 Test Item Value Reference Range Interpretation Comments U Amph Scr (test code Negative *NA*(09/15/17 = U Amph Scr) 5:22 AM) [facility] [id number] 10:22:00 Test Item Value Reference Range Interpretation Comments U Melinda Scr (test code Negative *NA*(09/15/17 = U Melinda Scr) 5:22 AM) [facility] [id number] 10:22:00 Test Item Value Reference Range Interpretation Comments U Benzodia Scr (test Negative *NA*(09/15/17 code = U Benzodia Scr) 5:22 AM) [facility] [id number] 10:22:00 Test Item Value Reference Range Interpretation Comments U Cocaine Scr (test Negative *NA*(09/15/17 code = U Cocaine Scr) 5:22 AM) [facility] [id number] 10:22:00 Test Item Value Reference Range Interpretation Comments UA Urobilinogen (test code = UA <=1.0 mg/dL 0.1-1.0 Urobilinogen) [facility] AND [id number] 10:22:00 Test Item Value Reference Range Interpretation Comments UA RBC (test code = 19 See_Comment [Automa uma message] The UA RBC) system which ge nerated this result transmit uma reference range : <=2. The reference range was not used to interpr et this result as katie l/abnormal. [facility] AND [id number] 10:22:00 Test Item Value Reference Range Interpretation Comments UA Leuk Est (test Negative (09/15/17 5:22 code = UA Leuk Est) AM) [facility] [id number] 10:22:00 Test Item Value Reference Range Interpretation Comments UA Sq Epi (test code = UA Sq Occasional /LPF Epi) [facility] AND [id number] 10:22:00 Test Item Value Reference Range Interpretation Comments UA WBC (test code = 6 See_Comment [Automa uma message] The UA WBC) system which ge nerated this result transmit uma reference range : <=5. The reference range was not used to interpr et this result as katie l/abnormal. [facility] [id number] 10:22:00 Test Item Value Reference Range Interpretation Comments UA Nitrite (test code Negative (09/15/17 5:22 = UA Nitrite) AM) [facility] AND [id number] 10:22:00 Test Item Value Reference Range Interpretation Comments UA Protein (test code = UA Negative mg/dL Protein) [facility] AND [id number] 10:22:00 Test Item Value Reference Range Interpretation Comments UA Glucose (test code = UA Negative mg/dL Glucose) [facility] AND [id number] 10:22:00 Test Item Value Reference Range Interpretation Comments UA Ketones (test code = UA Negative mg/dL Ketones) [facility] AND [id number] 10:22:00 Test Item Value Reference Range Interpretation Comments UA Bili (test code = Negative *NA*(09/15/17 UA Bili) 5:22 AM) [facility] AND [id number] 10:22:00 Test Item Value Reference Range Interpretation Comments UA Blood (test code = Moderate *ABN*(09/15/17 UA Blood) 5:22 AM) [facility] AND [id number] 10:22:00 Test Item Value Reference Range Interpretation Comments UA Color (test code = Yellow *NA*(09/15/17 UA Color) 5:22 AM) [facility] AND [id number] 10:22:00 Test Item Value Reference Range Interpretation Comments UA Turbidity (test code = Clear (09/15/17 5:22 UA Turbidity) AM) [facility] AND [id number] 10:22:00 Test Item Value Reference Range Interpretation Comments UA Spec Grav (test code = UA Spec 1.017 1 Grav) [facility] AND [id number] 10:22:00 Test Item Value Reference Range Interpretation Comments UA pH (test code = UA pH) 5.0 1 5.0-8.0 [facility] AND [id number] 10:22:00 Test Item Value Reference Range Interpretation Comments UA Bacteria (test code = UA Occasional /HPF Bacteria) [facility] AND [id number] 10:22:00 Test Item Value Reference Range Interpretation Comments UA Mucus (test code = UA Mucus) Few /LPF [facility] [id number] 10:22:00 Test Item Value Reference Range Interpretation Comments Culture: Urine (test code = No Growth Culture: Urine) [facility] [id number] 10:22:00 Test Item Value Reference Range Interpretation Comments U Phencyc Scr (test Negative *NA*(09/15/17 code = U Phencyc Scr) 5:22 AM) [facility] [id number] 10:22:00 Test Item Value Reference Range Interpretation Comments U Opiate Scr (test Positive *ABN*(09/15/17 code = U Opiate Scr) 5:22 AM) [facility] [id number] 10:22:00 Test Item Value Reference Range Interpretation Comments UDS Note (test code = See Note (09/15/17 5:22 UDS Note) AM) [facility] [id number] 10:22:00 Test Item Value Reference Range Interpretation Comments U Cannab Scr (test Negative *NA*(09/15/17 code = U Cannab Scr) 5:22 AM) [facility] [id number] 10:22:00 Test Item Value Reference Range Interpretation Comments U Amph Scr (test code Negative *NA*(09/15/17 = U Amph Scr) 5:22 AM) [facility] [id number] 10:22:00 Test Item Value Reference Range Interpretation Comments U Melinda Scr (test code Negative *NA*(09/15/17 = U Melinda Scr) 5:22 AM) [facility] [id number] 10:22:00 Test Item Value Reference Range Interpretation Comments U Benzodia Scr (test Negative *NA*(09/15/17 code = U Benzodia Scr) 5:22 AM) [facility] [id number] 10:22:00 Test Item Value Reference Range Interpretation Comments U Cocaine Scr (test Negative *NA*(09/15/17 code = U Cocaine Scr) 5:22 AM) [facility] [id number] 10:22:00 Test Item Value Reference Range Interpretation Comments UA Urobilinogen (test code = UA <=1.0 mg/dL 0.1-1.0 Urobilinogen) [facility] [id number] 10:22:00 Test Item Value Reference Range Interpretation Comments UA RBC (test code = 19 See_Comment [Automa uma message] The UA RBC) system which ge nerated this result transmit uma reference range : <=2. The reference range was not used to interpr et this result as katie l/abnormal. [facility] AND [id number] 10:22:00 Test Item Value Reference Range Interpretation Comments UA Leuk Est (test Negative (09/15/17 5:22 code = UA Leuk Est) AM) [facility] AND [id number] 10:22:00 Test Item Value Reference Range Interpretation Comments UA Sq Epi (test code = UA Sq Occasional /LPF Epi) [facility] AND [id number] 10:22:00 Test Item Value Reference Range Interpretation Comments UA WBC (test code = 6 See_Comment [Automa uma message] The UA WBC) system which ge nerated this result transmit uma reference range : <=5. The reference range was not used to interpr et this result as katie l/abnormal. [facility] AND [id number] 10:22:00 Test Item Value Reference Range Interpretation Comments UA Nitrite (test code Negative (09/15/17 5:22 = UA Nitrite) AM) [facility] AND [id number] 10:22:00 Test Item Value Reference Range Interpretation Comments UA Protein (test code = UA Negative mg/dL Protein) [facility] AND [id number] 10:22:00 Test Item Value Reference Range Interpretation Comments UA Glucose (test code = UA Negative mg/dL Glucose) [facility] AND [id number] 10:22:00 Test Item Value Reference Range Interpretation Comments UA Ketones (test code = UA Negative mg/dL Ketones) [facility] AND [id number] 10:22:00 Test Item Value Reference Range Interpretation Comments UA Bili (test code = Negative *NA*(09/15/17 UA Bili) 5:22 AM) [facility] AND [id number] 10:22:00 Test Item Value Reference Range Interpretation Comments UA Blood (test code = Moderate *ABN*(09/15/17 UA Blood) 5:22 AM) [facility] AND [id number] 10:22:00 Test Item Value Reference Range Interpretation Comments UA Color (test code = Yellow *NA*(09/15/17 UA Color) 5:22 AM) [facility] [id number] 10:22:00 Test Item Value Reference Range Interpretation Comments UA Turbidity (test code = Clear (09/15/17 5:22 UA Turbidity) AM) [facility] [id number] 10:22:00 Test Item Value Reference Range Interpretation Comments UA Spec Grav (test code = UA Spec 1.017 1 Grav) [facility] [id number] 10:22:00 Test Item Value Reference Range Interpretation Comments UA pH (test code = UA pH) 5.0 1 5.0-8.0 [facility] [id number] 10:22:00 Test Item Value Reference Range Interpretation Comments UA Bacteria (test code = UA Occasional /HPF Bacteria) [facility] [id number] 10:22:00 Test Item Value Reference Range Interpretation Comments UA Mucus (test code = UA Mucus) Few /LPF [facility] [id number] 10:22:00 Test Item Value Reference Range Interpretation Comments Culture: Urine (test code = No Growth Culture: Urine) [facility] [id number] 10:22:00 Test Item Value Reference Range Interpretation Comments U Phencyc Scr (test Negative *NA*(09/15/17 code = U Phencyc Scr) 5:22 AM) [facility] [id number] 10:22:00 Test Item Value Reference Range Interpretation Comments U Opiate Scr (test Positive *ABN*(09/15/17 code = U Opiate Scr) 5:22 AM) [facility] [id number] 10:22:00 Test Item Value Reference Range Interpretation Comments UDS Note (test code = See Note (09/15/17 5:22 UDS Note) AM) [facility] [id number] 10:22:00 Test Item Value Reference Range Interpretation Comments U Cannab Scr (test Negative *NA*(09/15/17 code = U Cannab Scr) 5:22 AM) [facility] [id number] 10:22:00 Test Item Value Reference Range Interpretation Comments U Amph Scr (test code Negative *NA*(09/15/17 = U Amph Scr) 5:22 AM) [facility] [id number] 10:22:00 Test Item Value Reference Range Interpretation Comments U Melinda Scr (test code Negative *NA*(09/15/17 = U Melinda Scr) 5:22 AM) [facility] [id number] 10:22:00 Test Item Value Reference Range Interpretation Comments U Benzodia Scr (test Negative *NA*(09/15/17 code = U Benzodia Scr) 5:22 AM) [facility] [id number] 10:22:00 Test Item Value Reference Range Interpretation Comments U Cocaine Scr (test Negative *NA*(09/15/17 code = U Cocaine Scr) 5:22 AM) [facility] [id number] 10:22:00 Test Item Value Reference Range Interpretation Comments UA Urobilinogen (test code = UA <=1.0 mg/dL 0.1-1.0 Urobilinogen) [facility] [id number] 10:22:00 Test Item Value Reference Range Interpretation Comments UA RBC (test code = 19 See_Comment [Automa uma message] The UA RBC) system which ge nerated this result transmit uma reference range : <=2. The reference range was not used to interpr et this result as katie l/abnormal. [facility] [id number] 10:22:00 Test Item Value Reference Range Interpretation Comments UA Leuk Est (test Negative (09/15/17 5:22 code = UA Leuk Est) AM) [facility] [id number] 10:22:00 Test Item Value Reference Range Interpretation Comments UA Sq Epi (test code = UA Sq Occasional /LPF Epi) [facility] [id number] 10:22:00 Test Item Value Reference Range Interpretation Comments UA WBC (test code = 6 See_Comment [Automa uma message] The UA WBC) system which ge nerated this result transmit uma reference range : <=5. The reference range was not used to interpr et this result as katie l/abnormal. [facility] [id number] 10:22:00 Test Item Value Reference Range Interpretation Comments UA Nitrite (test code Negative (09/15/17 5:22 = UA Nitrite) AM) [facility] [id number] 10:22:00 Test Item Value Reference Range Interpretation Comments UA Protein (test code = UA Negative mg/dL Protein) [facility] [id number] 10:22:00 Test Item Value Reference Range Interpretation Comments UA Glucose (test code = UA Negative mg/dL Glucose) [facility] AND [id number] 10:22:00 Test Item Value Reference Range Interpretation Comments UA Ketones (test code = UA Negative mg/dL Ketones) [facility] AND [id number] 10:22:00 Test Item Value Reference Range Interpretation Comments UA Bili (test code = Negative *NA*(09/15/17 UA Bili) 5:22 AM) [facility] AND [id number] 10:22:00 Test Item Value Reference Range Interpretation Comments UA Blood (test code = Moderate *ABN*(09/15/17 UA Blood) 5:22 AM) [facility] AND [id number] 10:22:00 Test Item Value Reference Range Interpretation Comments UA Color (test code = Yellow *NA*(09/15/17 UA Color) 5:22 AM) [facility] AND [id number] 10:22:00 Test Item Value Reference Range Interpretation Comments UA Turbidity (test code = Clear (09/15/17 5:22 UA Turbidity) AM) [facility] AND [id number] 10:22:00 Test Item Value Reference Range Interpretation Comments UA Spec Grav (test code = UA Spec 1.017 1 Grav) [facility] AND [id number] 10:22:00 Test Item Value Reference Range Interpretation Comments UA pH (test code = UA pH) 5.0 1 5.0-8.0 [facility] [id number] 10:22:00 Test Item Value Reference Range Interpretation Comments UA Bacteria (test code = UA Occasional /HPF Bacteria) [facility] AND [id number] 10:22:00 Test Item Value Reference Range Interpretation Comments UA Mucus (test code = UA Mucus) Few /LPF [facility] [id number] 10:22:00 Test Item Value Reference Range Interpretation Comments Culture: Urine (test code = No Growth Culture: Urine) [facility] [id number] 10:22:00 Test Item Value Reference Range Interpretation Comments U Phencyc Scr (test Negative *NA*(09/15/17 code = U Phencyc Scr) 5:22 AM) [facility] [id number] 10:22:00 Test Item Value Reference Range Interpretation Comments U Opiate Scr (test Positive *ABN*(09/15/17 code = U Opiate Scr) 5:22 AM) [facility] [id number] 10:22:00 Test Item Value Reference Range Interpretation Comments UDS Note (test code = See Note (09/15/17 5:22 UDS Note) AM) [facility] [id number] 10:22:00 Test Item Value Reference Range Interpretation Comments U Cannab Scr (test Negative *NA*(09/15/17 code = U Cannab Scr) 5:22 AM) [facility] [id number] 10:22:00 Test Item Value Reference Range Interpretation Comments U Amph Scr (test code Negative *NA*(09/15/17 = U Amph Scr) 5:22 AM) [facility] [id number] 10:22:00 Test Item Value Reference Range Interpretation Comments U Melinda Scr (test code Negative *NA*(09/15/17 = U Melinda Scr) 5:22 AM) [facility] [id number] 10:22:00 Test Item Value Reference Range Interpretation Comments U Benzodia Scr (test Negative *NA*(09/15/17 code = U Benzodia Scr) 5:22 AM) [facility] [id number] 10:22:00 Test Item Value Reference Range Interpretation Comments U Cocaine Scr (test Negative *NA*(09/15/17 code = U Cocaine Scr) 5:22 AM) [facility] [id number] 10:22:00 Test Item Value Reference Range Interpretation Comments UA Urobilinogen (test code = UA <=1.0 mg/dL 0.1-1.0 Urobilinogen) [facility] [id number] 10:22:00 Test Item Value Reference Range Interpretation Comments UA RBC (test code = 19 See_Comment [Automa uma message] The UA RBC) system which ge nerated this result transmit uma reference range : <=2. The reference range was not used to interpr et this result as katie l/abnormal. [facility] AND [id number] 10:22:00 Test Item Value Reference Range Interpretation Comments UA Leuk Est (test Negative (09/15/17 5:22 code = UA Leuk Est) AM) [facility] AND [id number] 10:22:00 Test Item Value Reference Range Interpretation Comments UA Sq Epi (test code = UA Sq Occasional /LPF Epi) [facility] AND [id number] 10:22:00 Test Item Value Reference Range Interpretation Comments UA WBC (test code = 6 See_Comment [Automa uma message] The UA WBC) system which ge nerated this result transmit uma reference range : <=5. The reference range was not used to interpr et this result as katie l/abnormal. [facility] AND [id number] 10:22:00 Test Item Value Reference Range Interpretation Comments UA Nitrite (test code Negative (09/15/17 5:22 = UA Nitrite) AM) [facility] AND [id number] 10:22:00 Test Item Value Reference Range Interpretation Comments UA Protein (test code = UA Negative mg/dL Protein) [facility] AND [id number] 10:22:00 Test Item Value Reference Range Interpretation Comments UA Glucose (test code = UA Negative mg/dL Glucose) [facility] AND [id number] 10:22:00 Test Item Value Reference Range Interpretation Comments UA Ketones (test code = UA Negative mg/dL Ketones) [facility] AND [id number] 10:22:00 Test Item Value Reference Range Interpretation Comments UA Bili (test code = Negative *NA*(09/15/17 UA Bili) 5:22 AM) [facility] AND [id number] 10:22:00 Test Item Value Reference Range Interpretation Comments UA Blood (test code = Moderate *ABN*(09/15/17 UA Blood) 5:22 AM) [facility] AND [id number] 10:22:00 Test Item Value Reference Range Interpretation Comments UA Color (test code = Yellow *NA*(09/15/17 UA Color) 5:22 AM) [facility] AND [id number] 10:22:00 Test Item Value Reference Range Interpretation Comments UA Turbidity (test code = Clear (09/15/17 5:22 UA Turbidity) AM) [facility] AND [id number] 10:22:00 Test Item Value Reference Range Interpretation Comments UA Spec Grav (test code = UA Spec 1.017 1 Grav) [facility] AND [id number] 10:22:00 Test Item Value Reference Range Interpretation Comments UA pH (test code = UA pH) 5.0 1 5.0-8.0 [facility] AND [id number] 10:22:00 Test Item Value Reference Range Interpretation Comments UA Bacteria (test code = UA Occasional /HPF Bacteria) [facility] AND [id number] 10:22:00 Test Item Value Reference Range Interpretation Comments UA Mucus (test code = UA Mucus) Few /LPF [facility] HospitalCulture: [id number] 10:22:00 Test Item Value Reference Range Interpretation Comments Culture: Urine (test code = No Growth Culture: Urine) [facility] AND [id number] 10:22:00 Test Item Value Reference Range Interpretation Comments UA WBC (test code = 6 See_Comment [Automa uma message] The UA WBC) system which ge nerated this result transmit uma reference range : <=5. The reference range was not used to interpr et this result as katie l/abnormal. [facility] AND [id number] 10:22:00 Test Item Value Reference Range Interpretation Comments UA Nitrite (test code Negative (09/15/17 5:22 = UA Nitrite) AM) [facility] AND [id number] 10:22:00 Test Item Value Reference Range Interpretation Comments UA Protein (test code = UA Negative mg/dL Protein) [facility] AND [id number] 10:22:00 Test Item Value Reference Range Interpretation Comments UA Glucose (test code = UA Negative mg/dL Glucose) [facility] AND [id number] 10:22:00 Test Item Value Reference Range Interpretation Comments UA Ketones (test code = UA Negative mg/dL Ketones) [facility] AND [id number] 10:22:00 Test Item Value Reference Range Interpretation Comments UA Bili (test code = Negative *NA*(09/15/17 UA Bili) 5:22 AM) [facility] [id number] 10:22:00 Test Item Value Reference Range Interpretation Comments UA Blood (test code = Moderate *ABN*(09/15/17 UA Blood) 5:22 AM) [facility] [id number] 10:22:00 Test Item Value Reference Range Interpretation Comments UA Color (test code = Yellow *NA*(09/15/17 UA Color) 5:22 AM) [facility] [id number] 10:22:00 Test Item Value Reference Range Interpretation Comments UA Turbidity (test code = Clear (09/15/17 5:22 UA Turbidity) AM) [facility] [id number] 10:22:00 Test Item Value Reference Range Interpretation Comments UA Spec Grav (test code = UA Spec 1.017 1 Grav) [facility] [id number] 10:22:00 Test Item Value Reference Range Interpretation Comments UA pH (test code = UA pH) 5.0 1 5.0-8.0 [facility] [id number] 10:22:00 Test Item Value Reference Range Interpretation Comments UA Bacteria (test code = UA Occasional /HPF Bacteria) [facility] [id number] 10:22:00 Test Item Value Reference Range Interpretation Comments UA Mucus (test code = UA Mucus) Few /LPF [facility]: [id number] 10:22:00 Test Item Value Reference Range Interpretation Comments Culture: Urine (test code = No Growth Culture: Urine) [facility] [id number] 10:22:00 Test Item Value Reference Range Interpretation Comments U Phencyc Scr (test Negative *NA*(09/15/17 code = U Phencyc Scr) 5:22 AM) [facility] [id number] 10:22:00 Test Item Value Reference Range Interpretation Comments U Opiate Scr (test Positive *ABN*(09/15/17 code = U Opiate Scr) 5:22 AM) [facility] [id number] 10:22:00 Test Item Value Reference Range Interpretation Comments UDS Note (test code = See Note (09/15/17 5:22 UDS Note) AM) [facility] [id number] 10:22:00 Test Item Value Reference Range Interpretation Comments U Cannab Scr (test Negative *NA*(09/15/17 code = U Cannab Scr) 5:22 AM) [facility] [id number] 10:22:00 Test Item Value Reference Range Interpretation Comments U Amph Scr (test code Negative *NA*(09/15/17 = U Amph Scr) 5:22 AM) [facility] [id number] 10:22:00 Test Item Value Reference Range Interpretation Comments U Melinda Scr (test code Negative *NA*(09/15/17 = U Melinda Scr) 5:22 AM) [facility] [id number] 10:22:00 Test Item Value Reference Range Interpretation Comments U Benzodia Scr (test Negative *NA*(09/15/17 code = U Benzodia Scr) 5:22 AM) [facility] [id number] 10:22:00 Test Item Value Reference Range Interpretation Comments U Cocaine Scr (test Negative *NA*(09/15/17 code = U Cocaine Scr) 5:22 AM) [facility] [id number] 10:22:00 Test Item Value Reference Range Interpretation Comments UA Urobilinogen (test code = UA <=1.0 mg/dL 0.1-1.0 Urobilinogen) [facility] AND [id number] 10:22:00 Test Item Value Reference Range Interpretation Comments UA RBC (test code = 19 See_Comment [Automa uma message] The UA RBC) system which ge nerated this result transmit uma reference range : <=2. The reference range was not used to interpr et this result as katie l/abnormal. [facility] AND [id number] 10:22:00 Test Item Value Reference Range Interpretation Comments UA Leuk Est (test Negative (09/15/17 5:22 code = UA Leuk Est) AM) [facility] [id number] 10:22:00 Test Item Value Reference Range Interpretation Comments UA Sq Epi (test code = UA Sq Occasional /LPF Epi) [facility] [id number] 10:22:00 Test Item Value Reference Range Interpretation Comments U Phencyc Scr (test Negative *NA*(09/15/17 code = U Phencyc Scr) 5:22 AM) [facility] [id number] 10:22:00 Test Item Value Reference Range Interpretation Comments U Opiate Scr (test Positive *ABN*(09/15/17 code = U Opiate Scr) 5:22 AM) [facility] [id number] 10:22:00 Test Item Value Reference Range Interpretation Comments UDS Note (test code = See Note (09/15/17 5:22 UDS Note) AM) [facility] [id number] 10:22:00 Test Item Value Reference Range Interpretation Comments U Cannab Scr (test Negative *NA*(09/15/17 code = U Cannab Scr) 5:22 AM) [facility] [id number] 10:22:00 Test Item Value Reference Range Interpretation Comments U Amph Scr (test code Negative *NA*(09/15/17 = U Amph Scr) 5:22 AM) [facility] [id number] 10:22:00 Test Item Value Reference Range Interpretation Comments U Melinda Scr (test code Negative *NA*(09/15/17 = U Melinda Scr) 5:22 AM) [facility] [id number] 10:22:00 Test Item Value Reference Range Interpretation Comments U Benzodia Scr (test Negative *NA*(09/15/17 code = U Benzodia Scr) 5:22 AM) [facility] [id number] 10:22:00 Test Item Value Reference Range Interpretation Comments U Cocaine Scr (test Negative *NA*(09/15/17 code = U Cocaine Scr) 5:22 AM) [facility] [id number] 10:22:00 Test Item Value Reference Range Interpretation Comments UA Urobilinogen (test code = UA <=1.0 mg/dL 0.1-1.0 Urobilinogen) [facility] [id number] 10:22:00 Test Item Value Reference Range Interpretation Comments UA RBC (test code = 19 See_Comment [Automa uma message] The UA RBC) system which ge nerated this result transmit uma reference range : <=2. The reference range was not used to interpr et this result as katie l/abnormal. [facility] AND [id number] 10:22:00 Test Item Value Reference Range Interpretation Comments UA Leuk Est (test Negative (09/15/17 5:22 code = UA Leuk Est) AM) [facility] AND [id number] 10:22:00 Test Item Value Reference Range Interpretation Comments UA Sq Epi (test code = UA Sq Occasional /LPF Epi) [facility] AND [id number] 10:22:00 Test Item Value Reference Range Interpretation Comments UA WBC (test code = 6 See_Comment [Automa uma message] The UA WBC) system which ge nerated this result transmit uma reference range : <=5. The reference range was not used to interpr et this result as katie l/abnormal. [facility] AND [id number] 10:22:00 Test Item Value Reference Range Interpretation Comments UA Nitrite (test code Negative (09/15/17 5:22 = UA Nitrite) AM) [facility] AND [id number] 10:22:00 Test Item Value Reference Range Interpretation Comments UA Protein (test code = UA Negative mg/dL Protein) [facility] AND [id number] 10:22:00 Test Item Value Reference Range Interpretation Comments UA Glucose (test code = UA Negative mg/dL Glucose) [facility] AND [id number] 10:22:00 Test Item Value Reference Range Interpretation Comments UA Ketones (test code = UA Negative mg/dL Ketones) [facility] AND [id number] 10:22:00 Test Item Value Reference Range Interpretation Comments UA Bili (test code = Negative *NA*(09/15/17 UA Bili) 5:22 AM) [facility] AND [id number] 10:22:00 Test Item Value Reference Range Interpretation Comments UA Blood (test code = Moderate *ABN*(09/15/17 UA Blood) 5:22 AM) [facility] AND [id number] 10:22:00 Test Item Value Reference Range Interpretation Comments UA Color (test code = Yellow *NA*(09/15/17 UA Color) 5:22 AM) [facility] AND [id number] 10:22:00 Test Item Value Reference Range Interpretation Comments UA Turbidity (test code = Clear (6/26/18 5:22 UA Turbidity) AM) [facility] [id number] 10:22:00 Test Item Value Reference Range Interpretation Comments UA Spec Grav (test code = UA Spec 1.017 1 Grav) [facility] [id number] 10:22:00 Test Item Value Reference Range Interpretation Comments UA pH (test code = UA pH) 5.0 1 5.0-8.0 [facility] [id number] 10:22:00 Test Item Value Reference Range Interpretation Comments UA Bacteria (test code = UA Occasional /HPF Bacteria) [facility] [id number] 10:22:00 Test Item Value Reference Range Interpretation Comments UA Mucus (test code = UA Mucus) Few /LPF [facility]: [id number] 10:22:00 Test Item Value Reference Range Interpretation Comments Culture: Urine (test code = No Growth Culture: Urine) [facility] [id number] 10:22:00 Test Item Value Reference Range Interpretation Comments U Phencyc Scr (test Negative *NA*(09/15/17 code = U Phencyc Scr) 5:22 AM) [facility] [id number] 10:22:00 Test Item Value Reference Range Interpretation Comments U Opiate Scr (test Positive *ABN*(09/15/17 code = U Opiate Scr) 5:22 AM) [facility] [id number] 10:22:00 Test Item Value Reference Range Interpretation Comments UDS Note (test code = See Note (09/15/17 5:22 UDS Note) AM) [facility] [id number] 10:22:00 Test Item Value Reference Range Interpretation Comments U Cannab Scr (test Negative *NA*(09/15/17 code = U Cannab Scr) 5:22 AM) [facility] [id number] 10:22:00 Test Item Value Reference Range Interpretation Comments U Amph Scr (test code Negative *NA*(09/15/17 = U Amph Scr) 5:22 AM) [facility] [id number] 10:22:00 Test Item Value Reference Range Interpretation Comments U Melinda Scr (test code Negative *NA*(09/15/17 = U Melinda Scr) 5:22 AM) [facility] [id number] 10:22:00 Test Item Value Reference Range Interpretation Comments U Benzodia Scr (test Negative *NA*(09/15/17 code = U Benzodia Scr) 5:22 AM) [facility] [id number] 10:22:00 Test Item Value Reference Range Interpretation Comments U Cocaine Scr (test Negative *NA*(09/15/17 code = U Cocaine Scr) 5:22 AM) [facility] [id number] 10:22:00 Test Item Value Reference Range Interpretation Comments UA Urobilinogen (test code = UA <=1.0 mg/dL 0.1-1.0 Urobilinogen) [facility] [id number] 10:22:00 Test Item Value Reference Range Interpretation Comments UA RBC (test code = 19 See_Comment [Automa uma message] The UA RBC) system which ge nerated this result transmit uma reference range : <=2. The reference range was not used to interpr et this result as katie l/abnormal. [facility] [id number] 10:22:00 Test Item Value Reference Range Interpretation Comments UA Leuk Est (test Negative (09/15/17 5:22 code = UA Leuk Est) AM) [facility] [id number] 10:22:00 Test Item Value Reference Range Interpretation Comments UA Sq Epi (test code = UA Sq Occasional /LPF Epi) [facility] [id number] 10:22:00 Test Item Value Reference Range Interpretation Comments UA WBC (test code = 6 See_Comment [Automa uma message] The UA WBC) system which ge nerated this result transmit uma reference range : <=5. The reference range was not used to interpr et this result as katie l/abnormal. [facility] [id number] 06:47:00 Test Item Value Reference Range Interpretation Comments Ammonia (test code = Ammonia) 32.0 [facility] [id number] 06:47:00 Test Item Value Reference Range Interpretation Comments eGFR (test code = eGFR) 93 [facility] [id number] 06:47:00 Test Item Value Reference Range Interpretation Comments Globulin (test code = Globulin) 3.9 2.7-4.2 [facility]2018-06-26 06:47:00 Test Item Value Reference Range Interpretation Comments B/C Ratio (test code = B/C Ratio) 22 1 6-25 [facility]2018-06-26 06:47:00 Test Item Value Reference Range Interpretation Comments A/G Ratio (test code = A/G Ratio) 1.0 1 0.7-1.6 [facility]2018-06-26 06:47:00 Test Item Value Reference Range Interpretation Comments ALT (test code = ALT) 16 See_Comment [Auto mated message] The system which ge nerated this result transmit uma reference range : <=65. The reference range was not used to interpr et this result as katie l/abnormal. [facility]2018-06-26 06:47:00 Test Item Value Reference Range Interpretation Comments AST (test code = AST) 21 See_Comment [Auto mated message] The system which ge nerated this result transmit uma reference range : <=37. The reference range was not used to interpr et this result as katie l/abnormal. [facility]2018-06-26 06:47:00 Test Item Value Reference Range Interpretation Comments Alk Phos (test code = Alk Phos) 75 39-136 [facility]2018-06-26 06:47:00 Test Item Value Reference Range Interpretation Comments Bili Total (test code = Bili Total) 0.5 0.2-1.3 [facility]2018-06-26 06:47:00 Test Item Value Reference Range Interpretation Comments AGAP (test code = AGAP) 11.9 10.0-20.0 [facility]2018-06-26 06:47:00 Test Item Value Reference Range Interpretation Comments Chloride Lvl (test code = Chloride Lvl) 109 95-109 [facility]2018-06-26 06:47:00 Test Item Value Reference Range Interpretation Comments Total Protein (test code = Total 7.8 6.4-8.4 Protein) [facility]2018-06-26 06:47:00 Test Item Value Reference Range Interpretation Comments Albumin Lvl (test code = Albumin Lvl) 3.9 3.5-5.0 [place] 153338-06-26 06:47:00 Test Item Value Reference Range Interpretation Comments CO2 (test code = CO2) 24 24-32 [place] 153338-06-26 06:47:00 Test Item Value Reference Range Interpretation Comments Calcium Lvl (test code = Calcium Lvl) 8.7 8.5-10.5 [place] 153338-06-26 06:47:00 Test Item Value Reference Range Interpretation Comments Potassium Lvl (test code = Potassium 3.9 3.5-5.1 Lvl) [place] 153338-06-26 06:47:00 Test Item Value Reference Range Interpretation Comments Sodium Lvl (test code = Sodium Lvl) 141 135-145 [place] 153338-06-26 06:47:00 Test Item Value Reference Range Interpretation Comments Creatinine Lvl (test code = Creatinine 0.72 0.50-1.40 Lvl) [place] 153338-06-26 06:47:00 Test Item Value Reference Range Interpretation Comments BUN (test code = BUN) 16 7-22 [facility]2018-06-26 06:47:00 Test Item Value Reference Range Interpretation Comments Glucose Lvl (test code = Glucose Lvl) 165 70-99 [id number] 06:47:00 Test Item Value Reference Range Interpretation Comments Basophils # (test code 0.1 See_Comment [Aut omated message] The = Basophils #) system which generated this result tra nsmitted reference range : <=0.2. The reference r yuridia was not used to int erpret this result as normal/abnormal . [facility] H[id number] 06:47:00 Test Item Value Reference Range Interpretation Comments Eosinophils # (test code 0.1 See_Comment [A utomated message] The = Eosinophils #) system whic h generated this result tra nsmitted reference range : <=0.5. The reference r yuridia was not used to int erpret this result as normal/abnormal . [facility] HospitalLnvdmepLTWRIJCHBO0389-39-38 06:47:00 Test Item Value Reference Range Interpretation Comments Monocytes # (test code 0.9 See_Comment [Aut omated message] The = Monocytes #) system which generated this result tra nsmitted reference range : <=0.8. The reference r yuridia was not used to int erpret this result as normal/abnormal . [facility] HospitalYqoabvdWGCOGNKVTO1925-78-26 06:47:00 Test Item Value Reference Range Interpretation Comments Lymphocytes # (test code = Lymphocytes 4.4 1.0-5.5 #) [facility] Hos[id number] 06:47:00 Test Item Value Reference Range Interpretation Comments Segs-Bands # (test code = Segs-Bands #) 10.0 1.5-8.1 [facility] HospitalJgcctsaYZHUZHOPBO7723-76-37 06:47:00 Test Item Value Reference Range Interpretation Comments Basophils (test code = 0.6 See_Comment [Aut omated message] The Basophils) system which ge nerated this result tra nsmitted reference range : <=1.0. The reference r yuridia was not used to int erpret this result as normal/abnormal . [facility] HospitalGxvgybkHKVRNSRVJR8217-19-12 06:47:00 Test Item Value Reference Range Interpretation Comments Eosinophils (test code = 0.5 See_Comment [A utomated message] The Eosinophils) system which ge nerated this result tra nsmitted reference range : <=4.0. The reference r yuridia was not used to int erpret this result as normal/abnormal . [facility]HVYMPFUOPT5715[facility]44-49 06:47:00 Test Item Value Reference Range Interpretation Comments Lymphocytes (test code = Lymphocytes) 28.4 20.0-40.0 [facility]AmuawmlDDZNSTDQZA3643-50-76 06:47:00 Test Item Value Reference Range Interpretation Comments Monocytes (test code = Monocytes) 6.0 2.0-12.0 [facility] HospitalWyiczdaFPWADUQAYD0134-80-97 06:47:00 Test Item Value Reference Range Interpretation Comments Segs (test code = Segs) 64.5 45.0-75.0 [facility] HospitalFsdzuloGUKWJEHUTW1823-30-18 06:47:00 Test Item Value Reference Range Interpretation Comments MCH (test code = MCH) 29.4 pg 27.0-31.0 [facility] HospitalJakotgrCYMBJCJYZX4494-56-85 06:47:00 Test Item Value Reference Range Interpretation Comments MCV (test code = MCV) 85.3 80.0-98.0 [facility] HospitalAcnlfskWBLMFAHJYL4505-46-79 06:47:00 Test Item Value Reference Range Interpretation Comments Hct (test code = Hct) 37.0 36.0-48.0 [facility]ttuqocCUHQWFLGKZ6177-63-54 06:47:00 Test Item Value Reference Range Interpretation Comments Hgb (test code = Hgb) 12.8 12.0-16.0 [facility] HospitalRqiwkcjIOEKUPELPL6631-71-99 06:47:00 Test Item Value Reference Range Interpretation Comments RBC (test code = RBC) 4.34 4.20-5.40 [facility] HospitalJxqxkpaAVLZFTCZHK0408-76-22 06:47:00 Test Item Value Reference Range Interpretation Comments MPV (test code = MPV) 8.2 7.4-10.4 [facility] HospitalYucwyzzGMBKMDIECM5490-97-85 06:47:00 Test Item Value Reference Range Interpretation Comments Platelet (test code = Platelet) 271 133-450 [facility] HospitalOabwhrjQVFOJLOWUA7545-20-88 06:47:00 Test Item Value Reference Range Interpretation Comments RDW (test code = RDW) 14.7 11.5-14.5 [facility] HospitalQxggwykGHZRUHYVPJ7172-53-10 06:47:00 Test Item Value Reference Range Interpretation Comments MCHC (test code = MCHC) 34.5 32.0-36.0 [facility] HospitalIwzpgitGVSGIDUWST1309-91-45 06:47:00 Test Item Value Reference Range Interpretation Comments WBC (test code = WBC) 15.5 3.7-10.4 [facility] DESXWZFPB3387-56-24 06:47:00 Test Item Value Reference Range Interpretation Comments Hgb A1C (test code = Hgb A1C) 8.4 [facility] TPKUK9488-46-29 06:47:00 Test Item Value Reference Range Interpretation Comments Ammonia (test code = Ammonia) 32.0 [facility] YEUVP1073-01-74 06:47:00 Test Item Value Reference Range Interpretation Comments eGFR (test code = eGFR) 93 [facility] OWGIV0960-19-12 06:47:00 Test Item Value Reference Range Interpretation Comments Globulin (test code = Globulin) 3.9 2.7-4.2 [facility] BKZTH2417-03-61 06:47:00 Test Item Value Reference Range Interpretation Comments B/C Ratio (test code = B/C Ratio) 22 1 6-25 [facility] DJBSR7862-45-61 06:47:00 Test Item Value Reference Range Interpretation Comments A/G Ratio (test code = A/G Ratio) 1.0 1 0.7-1.6 [facility]2018-06-26 06:47:00 Test Item Value Reference Range Interpretation Comments ALT (test code = ALT) 16 See_Comment [Auto mated message] The system which ge nerated this result transmit uma reference range : <=65. The reference range was not used to interpr et this result as katie l/abnormal. [facility]2018-06-26 06:47:00 Test Item Value Reference Range Interpretation Comments AST (test code = AST) 21 See_Comment [Auto mated message] The system which ge nerated this result transmit uma reference range : <=37. The reference range was not used to interpr et this result as katie l/abnormal. [facility]2018-06-26 06:47:00 Test Item Value Reference Range Interpretation Comments Alk Phos (test code = Alk Phos) 75 39-136 [facility]2018-06-26 06:47:00 Test Item Value Reference Range Interpretation Comments Bili Total (test code = Bili Total) 0.5 0.2-1.3 [place] 153338-06-26 06:47:00 Test Item Value Reference Range Interpretation Comments AGAP (test code = AGAP) 11.9 10.0-20.0 [facility]2018-06-26 06:47:00 Test Item Value Reference Range Interpretation Comments Chloride Lvl (test code = Chloride Lvl) 109 95-109 [facility]2018-06-26 06:47:00 Test Item Value Reference Range Interpretation Comments Total Protein (test code = Total 7.8 6.4-8.4 Protein) [facility]2018-06-26 06:47:00 Test Item Value Reference Range Interpretation Comments Albumin Lvl (test code = Albumin Lvl) 3.9 3.5-5.0 [place] 153338-06-26 06:47:00 Test Item Value Reference Range Interpretation Comments CO2 (test code = CO2) 24 24-32 [place] 153338-06-26 06:47:00 Test Item Value Reference Range Interpretation Comments Calcium Lvl (test code = Calcium Lvl) 8.7 8.5-10.5 [place] 153338-06-26 06:47:00 Test Item Value Reference Range Interpretation Comments Potassium Lvl (test code = Potassium 3.9 3.5-5.1 Lvl) [facility]2018-06-26 06:47:00 Test Item Value Reference Range Interpretation Comments Sodium Lvl (test code = Sodium Lvl) 141 135-145 [place] 153338-06-26 06:47:00 Test Item Value Reference Range Interpretation Comments Creatinine Lvl (test code = Creatinine 0.72 0.50-1.40 Lvl) [facility]2018-06-26 06:47:00 Test Item Value Reference Range Interpretation Comments BUN (test code = BUN) 16 7-22 [place] 153338-06-26 06:47:00 Test Item Value Reference Range Interpretation Comments Glucose Lvl (test code = Glucose Lvl) 165 70-99 [facility]IwlncqzHRFYDAXSHN7230-09-51 06:47:00 Test Item Value Reference Range Interpretation Comments Basophils # (test code 0.1 See_Comment [Aut omated message] The = Basophils #) system which generated this result tra nsmitted reference range : <=0.2. The reference r yuridia was not used to int erpret this result as normal/abnormal . [facility] HospitalDbmqknmZYLFNOJOVJ0238-15-72 06:47:00 Test Item Value Reference Range Interpretation Comments Eosinophils # (test code 0.1 See_Comment [A utomated message] The = Eosinophils #) system whic h generated this result tra nsmitted reference range : <=0.5. The reference r yuridia was not used to int erpret this result as normal/abnormal . [facility] HospitalKacccyfSMNXPURAGL1597-27-90 06:47:00 Test Item Value Reference Range Interpretation Comments Monocytes # (test code 0.9 See_Comment [Aut omated message] The = Monocytes #) system which generated this result tra nsmitted reference range : <=0.8. The reference r yuridia was not used to int erpret this result as normal/abnormal . [facility] HospitalLbfchpgSXTRGVVOGP7382-57-45 06:47:00 Test Item Value Reference Range Interpretation Comments Lymphocytes # (test code = Lymphocytes 4.4 1.0-5.5 #) [facility] HospitalFofonafWRYPVWXEQL8423-81-34 06:47:00 Test Item Value Reference Range Interpretation Comments Segs-Bands # (test code = Segs-Bands #) 10.0 1.5-8.1 [facility] HospitalTxetqttGYYQHYXDVY2611-98-92 06:47:00 Test Item Value Reference Range Interpretation Comments Basophils (test code = 0.6 See_Comment [Aut omated message] The Basophils) system which ge nerated this result tra nsmitted reference range : <=1.0. The reference r yuridia was not used to int erpret this result as normal/abnormal . [facility] HospitalBlllcxgQAJONRAJAJ5500-22-41 06:47:00 Test Item Value Reference Range Interpretation Comments Eosinophils (test code = 0.5 See_Comment [A utomated message] The Eosinophils) system which ge nerated this result tra nsmitted reference range : <=4.0. The reference r yuridia was not used to int erpret this result as normal/abnormal . [facility] HospitalJimnsxbHNVZFKOADH8292-38-30 06:47:00 Test Item Value Reference Range Interpretation Comments Lymphocytes (test code = Lymphocytes) 28.4 20.0-40.0 [facility] HospitalCmkexrfLNVUYEUMTR5800-60-83 06:47:00 Test Item Value Reference Range Interpretation Comments Monocytes (test code = Monocytes) 6.0 2.0-12.0 [facility] HospitalVdzxuhdSUTQTNNUOL6573-84-20 06:47:00 Test Item Value Reference Range Interpretation Comments Segs (test code = Segs) 64.5 45.0-75.0 [facility] HospitalXwasilgFRCOZDZAPV0650-79-04 06:47:00 Test Item Value Reference Range Interpretation Comments MCH (test code = MCH) 29.4 pg 27.0-31.0 [facility] HospitalZyhloyrVIPXNOUPFP8577-08-55 06:47:00 Test Item Value Reference Range Interpretation Comments MCV (test code = MCV) 85.3 80.0-98.0 [facility] HospitalMtvnyjlDERGLBJDND4949-70-57 06:47:00 Test Item Value Reference Range Interpretation Comments Hct (test code = Hct) 37.0 36.0-48.0 [facility] HospitalWmsysjfOHZLLYOTYJ0910-20-12 06:47:00 Test Item Value Reference Range Interpretation Comments Hgb (test code = Hgb) 12.8 12.0-16.0 [facility] HospitalLkoszooEWQOZWSFNL1902-11-27 06:47:00 Test Item Value Reference Range Interpretation Comments RBC (test code = RBC) 4.34 4.20-5.40 [facility] HospitalWmtrpamDEDUAMBFWA0006-99-51 06:47:00 Test Item Value Reference Range Interpretation Comments MPV (test code = MPV) 8.2 7.4-10.4 [facility] HospitalOokqyllDTDTULPXKS6992-13-11 06:47:00 Test Item Value Reference Range Interpretation Comments Platelet (test code = Platelet) 271 133-450 [facility] HospitalJlgmzopRSSLHGRLGR9791-55-12 06:47:00 Test Item Value Reference Range Interpretation Comments RDW (test code = RDW) 14.7 11.5-14.5 [facility] HospitalJilxgdzDICCHCXIJU9242-07-52 06:47:00 Test Item Value Reference Range Interpretation Comments MCHC (test code = MCHC) 34.5 32.0-36.0 [facility] HospitalGejigaiBMUQGDKCGW7691-97-69 06:47:00 Test Item Value Reference Range Interpretation Comments WBC (test code = WBC) 15.5 3.7-10.4 [facility] ZOGVFOEXX1210-20-06 06:47:00 Test Item Value Reference Range Interpretation Comments Hgb A1C (test code = Hgb A1C) 8.4 [facility] HospitalCHEM NZHIP7537-94-34 06:47:00 Test Item Value Reference Range Interpretation Comments Ammonia (test code = Ammonia) 32.0 [facility] IXKLR6676-38-76 06:47:00 Test Item Value Reference Range Interpretation Comments eGFR (test code = eGFR) 93 [facility] JXPTU9510-95-65 06:47:00 Test Item Value Reference Range Interpretation Comments Globulin (test code = Globulin) 3.9 2.7-4.2 [facility] LXBRC8828-88-93 06:47:00 Test Item Value Reference Range Interpretation Comments B/C Ratio (test code = B/C Ratio) 22 1 6-25 [facility] DEGTW4729-37-39 06:47:00 Test Item Value Reference Range Interpretation Comments A/G Ratio (test code = A/G Ratio) 1.0 1 0.7-1.6 [facility] VMZPU4276-22-92 06:47:00 Test Item Value Reference Range Interpretation Comments ALT (test code = ALT) 16 See_Comment [Auto mated message] The system which ge nerated this result transmit uma reference range : <=65. The reference range was not used to interpr et this result as katie l/abnormal. [facility]2018-06-26 06:47:00 Test Item Value Reference Range Interpretation Comments AST (test code = AST) 21 See_Comment [Auto mated message] The system which ge nerated this result transmit uma reference range : <=37. The reference range was not used to interpr et this result as katie l/abnormal. [facility]2018-06-26 06:47:00 Test Item Value Reference Range Interpretation Comments Alk Phos (test code = Alk Phos) 75 39-136 [facility]2018-06-26 06:47:00 Test Item Value Reference Range Interpretation Comments Bili Total (test code = Bili Total) 0.5 0.2-1.3 [place] 153338-06-26 06:47:00 Test Item Value Reference Range Interpretation Comments AGAP (test code = AGAP) 11.9 10.0-20.0 [facility]2018-06-26 06:47:00 Test Item Value Reference Range Interpretation Comments Chloride Lvl (test code = Chloride Lvl) 109 95-109 [facility]2018-06-26 06:47:00 Test Item Value Reference Range Interpretation Comments Total Protein (test code = Total 7.8 6.4-8.4 Protein) [facility]2018-06-26 06:47:00 Test Item Value Reference Range Interpretation Comments Albumin Lvl (test code = Albumin Lvl) 3.9 3.5-5.0 [facility]2018-06-26 06:47:00 Test Item Value Reference Range Interpretation Comments CO2 (test code = CO2) 24 24-32 [facility]2018-06-26 06:47:00 Test Item Value Reference Range Interpretation Comments Calcium Lvl (test code = Calcium Lvl) 8.7 8.5-10.5 [facility]2018-06-26 06:47:00 Test Item Value Reference Range Interpretation Comments Potassium Lvl (test code = Potassium 3.9 3.5-5.1 Lvl) [facility]2018-06-26 06:47:00 Test Item Value Reference Range Interpretation Comments Sodium Lvl (test code = Sodium Lvl) 141 135-145 [facility]2018-06-26 06:47:00 Test Item Value Reference Range Interpretation Comments Creatinine Lvl (test code = Creatinine 0.72 0.50-1.40 Lvl) [facility]2018-06-26 06:47:00 Test Item Value Reference Range Interpretation Comments BUN (test code = BUN) 16 7-22 [facility]2018-06-26 06:47:00 Test Item Value Reference Range Interpretation Comments Glucose Lvl (test code = Glucose Lvl) 165 70-99 [facility] HospitalGxvjvsdKHPJCFCJDN3999-98-38 06:47:00 Test Item Value Reference Range Interpretation Comments Basophils # (test code 0.1 See_Comment [Aut omated message] The = Basophils #) system which generated this result tra nsmitted reference range : <=0.2. The reference r yuridia was not used to int erpret this result as normal/abnormal . [facility] HospitalZuvxyicXNMOQZNNHE1208-66-53 06:47:00 Test Item Value Reference Range Interpretation Comments Eosinophils # (test code 0.1 See_Comment [A utomated message] The = Eosinophils #) system whic h generated this result tra nsmitted reference range : <=0.5. The reference r yuridia was not used to int erpret this result as normal/abnormal . [facility] HospitalRcrmzhwPIWGNCACYI5200-28-55 06:47:00 Test Item Value Reference Range Interpretation Comments Monocytes # (test code 0.9 See_Comment [Aut omated message] The = Monocytes #) system which generated this result tra nsmitted reference range : <=0.8. The reference r yuridia was not used to int erpret this result as normal/abnormal . [facility] HospitalTucohozNGNQODOBMM2073-89-41 06:47:00 Test Item Value Reference Range Interpretation Comments Lymphocytes # (test code = Lymphocytes 4.4 1.0-5.5 #) [facility] HospitalQydzglvWLEYWNHVHY3522-27-56 06:47:00 Test Item Value Reference Range Interpretation Comments Segs-Bands # (test code = Segs-Bands #) 10.0 1.5-8.1 [facility] HospitalZghtohgBYPLRGZSML9772-89-92 06:47:00 Test Item Value Reference Range Interpretation Comments Basophils (test code = 0.6 See_Comment [Aut omated message] The Basophils) system which ge nerated this result tra nsmitted reference range : <=1.0. The reference r yuridia was not used to int erpret this result as normal/abnormal . [facility] HospitalZbnhbiaSORSQWPKJS5833-97-02 06:47:00 Test Item Value Reference Range Interpretation Comments Eosinophils (test code = 0.5 See_Comment [A utomated message] The Eosinophils) system which ge nerated this result tra nsmitted reference range : <=4.0. The reference r yuridia was not used to int erpret this result as normal/abnormal . [facility] HospitalKzjrbguOCGLBBOSWR6368-45-67 06:47:00 Test Item Value Reference Range Interpretation Comments Lymphocytes (test code = Lymphocytes) 28.4 20.0-40.0 [facility] HospitalWhtojbmJLMPTWJGXY2515-32-24 06:47:00 Test Item Value Reference Range Interpretation Comments Monocytes (test code = Monocytes) 6.0 2.0-12.0 [facility] HospitalXknhufpRCXSXDBKTQ0473-76-06 06:47:00 Test Item Value Reference Range Interpretation Comments Segs (test code = Segs) 64.5 45.0-75.0 [facility] HospitalCemlaqsQUJUAWJOOY3006-66-46 06:47:00 Test Item Value Reference Range Interpretation Comments MCH (test code = MCH) 29.4 pg 27.0-31.0 [facility] HospitalDbvqsakJLNREIHSFX5870-33-58 06:47:00 Test Item Value Reference Range Interpretation Comments MCV (test code = MCV) 85.3 80.0-98.0 [facility] HospitalTneeqlwTJMZYNCVBU0188-87-97 06:47:00 Test Item Value Reference Range Interpretation Comments Hct (test code = Hct) 37.0 36.0-48.0 [facility] HospitalZxussaoSAWYITMHMR5502-63-77 06:47:00 Test Item Value Reference Range Interpretation Comments Hgb (test code = Hgb) 12.8 12.0-16.0 [facility] HospitalEyonvvwPBFEDGQSFX9889-48-72 06:47:00 Test Item Value Reference Range Interpretation Comments RBC (test code = RBC) 4.34 4.20-5.40 [facility] HospitalDjxdgppFDSAWOVWGS5793-31-72 06:47:00 Test Item Value Reference Range Interpretation Comments MPV (test code = MPV) 8.2 7.4-10.4 [facility] HospitalQcbyxfdIWABPYWOVC4297-10-08 06:47:00 Test Item Value Reference Range Interpretation Comments Platelet (test code = Platelet) 271 133-450 [facility]AwhbcpfJNTAEBSQGD5974-98-17 06:47:00 Test Item Value Reference Range Interpretation Comments RDW (test code = RDW) 14.7 11.5-14.5 [facility] HospitalDzlbvlcENSRTCPGIS5876-41-96 06:47:00 Test Item Value Reference Range Interpretation Comments MCHC (test code = MCHC) 34.5 32.0-36.0 [facility] HospitalNlceajaMWNQREJUEO1393-95-16 06:47:00 Test Item Value Reference Range Interpretation Comments WBC (test code = WBC) 15.5 3.7-10.4 [facility] LGQOFKSBD2367-82-54 06:47:00 Test Item Value Reference Range Interpretation Comments Hgb A1C (test code = Hgb A1C) 8.4 [facility] QYDXT3387-84-43 06:47:00 Test Item Value Reference Range Interpretation Comments Ammonia (test code = Ammonia) 32.0 [facility] JIYYG7287-17-48 06:47:00 Test Item Value Reference Range Interpretation Comments eGFR (test code = eGFR) 93 [facility] AOKGL7362-63-98 06:47:00 Test Item Value Reference Range Interpretation Comments Globulin (test code = Globulin) 3.9 2.7-4.2 [facility] GDGFL5258-88-35 06:47:00 Test Item Value Reference Range Interpretation Comments B/C Ratio (test code = B/C Ratio) 22 1 6-25 [facility] HPGNK2275-93-09 06:47:00 Test Item Value Reference Range Interpretation Comments A/G Ratio (test code = A/G Ratio) 1.0 1 0.7-1.6 [facility] ZPLMW6211-95-88 06:47:00 Test Item Value Reference Range Interpretation Comments ALT (test code = ALT) 16 See_Comment [Auto mated message] The system which ge nerated this result transmit uma reference range : <=65. The reference range was not used to interpr et this result as katie l/abnormal. [facility] LHJHU9139-89-88 06:47:00 Test Item Value Reference Range Interpretation Comments AST (test code = AST) 21 See_Comment [Auto mated message] The system which ge nerated this result transmit uma reference range : <=37. The reference range was not used to interpr et this result as katie l/abnormal. [facility]2018-06-26 06:47:00 Test Item Value Reference Range Interpretation Comments Alk Phos (test code = Alk Phos) 75 39-136 [facility]2018-06-26 06:47:00 Test Item Value Reference Range Interpretation Comments Bili Total (test code = Bili Total) 0.5 0.2-1.3 [facility]2018-06-26 06:47:00 Test Item Value Reference Range Interpretation Comments AGAP (test code = AGAP) 11.9 10.0-20.0 [facility]2018-06-26 06:47:00 Test Item Value Reference Range Interpretation Comments Chloride Lvl (test code = Chloride Lvl) 109 95-109 [facility]2018-06-26 06:47:00 Test Item Value Reference Range Interpretation Comments Total Protein (test code = Total 7.8 6.4-8.4 Protein) [facility]2018-06-26 06:47:00 Test Item Value Reference Range Interpretation Comments Albumin Lvl (test code = Albumin Lvl) 3.9 3.5-5.0 [facility]2018-06-26 06:47:00 Test Item Value Reference Range Interpretation Comments CO2 (test code = CO2) 24 24-32 [facility]2018-06-26 06:47:00 Test Item Value Reference Range Interpretation Comments Calcium Lvl (test code = Calcium Lvl) 8.7 8.5-10.5 [facility]2018-06-26 06:47:00 Test Item Value Reference Range Interpretation Comments Potassium Lvl (test code = Potassium 3.9 3.5-5.1 Lvl) [facility]2018-06-26 06:47:00 Test Item Value Reference Range Interpretation Comments Sodium Lvl (test code = Sodium Lvl) 141 135-145 [facility]2018-06-26 06:47:00 Test Item Value Reference Range Interpretation Comments Creatinine Lvl (test code = Creatinine 0.72 0.50-1.40 Lvl) [facility]2018-06-26 06:47:00 Test Item Value Reference Range Interpretation Comments BUN (test code = BUN) 16 7-22 [facility]2018-06-26 06:47:00 Test Item Value Reference Range Interpretation Comments Glucose Lvl (test code = Glucose Lvl) 165 70-99 [facility] HospitalSkykootZQWPOGMXZZ4487-40-93 06:47:00 Test Item Value Reference Range Interpretation Comments Basophils # (test code 0.1 See_Comment [Aut omated message] The = Basophils #) system which generated this result tra nsmitted reference range : <=0.2. The reference r yuridia was not used to int erpret this result as normal/abnormal . [facility] HospitalLtwiqadOBANHPSPVE5693-99-75 06:47:00 Test Item Value Reference Range Interpretation Comments Eosinophils # (test code 0.1 See_Comment [A utomated message] The = Eosinophils #) system whic h generated this result tra nsmitted reference range : <=0.5. The reference r yuridia was not used to int erpret this result as normal/abnormal . [facility] HospitalOzasokhWPYUOJQGAX7924-38-52 06:47:00 Test Item Value Reference Range Interpretation Comments Monocytes # (test code 0.9 See_Comment [Aut omated message] The = Monocytes #) system which generated this result tra nsmitted reference range : <=0.8. The reference r yuridia was not used to int erpret this result as normal/abnormal . [facility] HospitalKtlxbjrMHFKKPXNHE4049-53-79 06:47:00 Test Item Value Reference Range Interpretation Comments Lymphocytes # (test code = Lymphocytes 4.4 1.0-5.5 #) [facility] HospitalGbjejmhFGRNLVSMPZ9833-19-46 06:47:00 Test Item Value Reference Range Interpretation Comments Segs-Bands # (test code = Segs-Bands #) 10.0 1.5-8.1 [facility] HospitalVhdyqhtLPJIWVAVSI1640-46-05 06:47:00 Test Item Value Reference Range Interpretation Comments Basophils (test code = 0.6 See_Comment [Aut omated message] The Basophils) system which ge nerated this result tra nsmitted reference range : <=1.0. The reference r yuridia was not used to int erpret this result as normal/abnormal . [facility] HospitalMrfqxuiPKRQCWNYJH0698-64-63 06:47:00 Test Item Value Reference Range Interpretation Comments Eosinophils (test code = 0.5 See_Comment [A utomated message] The Eosinophils) system which ge nerated this result tra nsmitted reference range : <=4.0. The reference r yuridia was not used to int erpret this result as normal/abnormal . [facility] HospitalLxaflprCDUSWFEWIA9956-99-87 06:47:00 Test Item Value Reference Range Interpretation Comments Lymphocytes (test code = Lymphocytes) 28.4 20.0-40.0 [facility] HospitalNrzltwiBRBCXSICZJ4740-55-18 06:47:00 Test Item Value Reference Range Interpretation Comments Monocytes (test code = Monocytes) 6.0 2.0-12.0 [facility] HospitalTcszxobYCPIOKFCGD9313-22-60 06:47:00 Test Item Value Reference Range Interpretation Comments Segs (test code = Segs) 64.5 45.0-75.0 [facility] HospitalOorynaqWQGLWCEZSP9390-01-70 06:47:00 Test Item Value Reference Range Interpretation Comments MCH (test code = MCH) 29.4 pg 27.0-31.0 [facility] HospitalAzwpgbuYZDHBEYPVQ1022-69-39 06:47:00 Test Item Value Reference Range Interpretation Comments MCV (test code = MCV) 85.3 80.0-98.0 [facility]ece[facility]zHCUPXRCRNW0317-15-98 06:47:00 Test Item Value Reference Range Interpretation Comments Hct (test code = Hct) 37.0 36.0-48.0 [facility]JvwenkuVJGVPGOPRR9262-20-32 06:47:00 Test Item Value Reference Range Interpretation Comments Hgb (test code = Hgb) 12.8 12.0-16.0 [facility]JopjyyuAQXJSPDBEP9568-43-01 06:47:00 Test Item Value Reference Range Interpretation Comments RBC (test code = RBC) 4.34 4.20-5.40 [facility] HospitalBhorigdTNMBLVRQKK5141-71-93 06:47:00 Test Item Value Reference Range Interpretation Comments MPV (test code = MPV) 8.2 7.4-10.4 [facility] HospitalOpkvlrmUUOBRGKIWO8610-08-76 06:47:00 Test Item Value Reference Range Interpretation Comments Platelet (test code = Platelet) 271 133-450 [facility] HospitalTjydvbdQESLXOSKOJ8287-58-95 06:47:00 Test Item Value Reference Range Interpretation Comments RDW (test code = RDW) 14.7 11.5-14.5 [facility] HospitalEqqnxpvUGRRUXXSGZ6135-48-66 06:47:00 Test Item Value Reference Range Interpretation Comments MCHC (test code = MCHC) 34.5 32.0-36.0 [facility]SkivpumWLQCHDYTON4729-11-54 06:47:00 Test Item Value Reference Range Interpretation Comments WBC (test code = WBC) 15.5 3.7-10.4 [facility] PBFVKVYQQ5057-50-47 06:47:00 Test Item Value Reference Range Interpretation Comments Hgb A1C (test code = Hgb A1C) 8.4 [facility]2018-06-26 06:47:00 Test Item Value Reference Range Interpretation Comments Ammonia (test code = Ammonia) 32.0 [facility]LJ1405-48-18 06:47:00 Test Item Value Reference Range Interpretation Comments eGFR (test code = eGFR) 93 [facility]2018-06-26 06:47:00 Test Item Value Reference Range Interpretation Comments Globulin (test code = Globulin) 3.9 2.7-4.2 [facility]2018-06-26 06:47:00 Test Item Value Reference Range Interpretation Comments B/C Ratio (test code = B/C Ratio) 22 1 6-25 [facility]2018-06-26 06:47:00 Test Item Value Reference Range Interpretation Comments A/G Ratio (test code = A/G Ratio) 1.0 1 0.7-1.6 [facility]2018-06-26 06:47:00 Test Item Value Reference Range Interpretation Comments ALT (test code = ALT) 16 See_Comment [Auto mated message] The system which ge nerated this result transmit uma reference range : <=65. The reference range was not used to interpr et this result as katie l/abnormal. [facility] HRPTN8706-82-39 06:47:00 Test Item Value Reference Range Interpretation Comments AST (test code = AST) 21 See_Comment [Auto mated message] The system which ge nerated this result transmit uma reference range : <=37. The reference range was not used to interpr et this result as katie l/abnormal. [facility] WKCGT0537-00-80 06:47:00 Test Item Value Reference Range Interpretation Comments Alk Phos (test code = Alk Phos) 75 39-136 [facility]2018-06-26 06:47:00 Test Item Value Reference Range Interpretation Comments Bili Total (test code = Bili Total) 0.5 0.2-1.3 [facility]2018-06-26 06:47:00 Test Item Value Reference Range Interpretation Comments AGAP (test code = AGAP) 11.9 10.0-20.0 [facility]2018-06-26 06:47:00 Test Item Value Reference Range Interpretation Comments Chloride Lvl (test code = Chloride Lvl) 109 95-109 [facility]2018-06-26 06:47:00 Test Item Value Reference Range Interpretation Comments Total Protein (test code = Total 7.8 6.4-8.4 Protein) [facility]2018-06-26 06:47:00 Test Item Value Reference Range Interpretation Comments Albumin Lvl (test code = Albumin Lvl) 3.9 3.5-5.0 [facility]2018-06-26 06:47:00 Test Item Value Reference Range Interpretation Comments CO2 (test code = CO2) 24 24-32 [facility]2018-06-26 06:47:00 Test Item Value Reference Range Interpretation Comments Calcium Lvl (test code = Calcium Lvl) 8.7 8.5-10.5 [facility]2018-06-26 06:47:00 Test Item Value Reference Range Interpretation Comments Potassium Lvl (test code = Potassium 3.9 3.5-5.1 Lvl) [facility]2018-06-26 06:47:00 Test Item Value Reference Range Interpretation Comments Sodium Lvl (test code = Sodium Lvl) 141 135-145 [facility]2018-06-26 06:47:00 Test Item Value Reference Range Interpretation Comments Creatinine Lvl (test code = Creatinine 0.72 0.50-1.40 Lvl) [facility]2018-06-26 06:47:00 Test Item Value Reference Range Interpretation Comments BUN (test code = BUN) 16 7-22 [facility]2018-06-26 06:47:00 Test Item Value Reference Range Interpretation Comments Glucose Lvl (test code = Glucose Lvl) 165 70-99 [facility]EobaqnnXDMHHIRDVD6770-21-09 06:47:00 Test Item Value Reference Range Interpretation Comments Basophils # (test code 0.1 See_Comment [Aut omated message] The = Basophils #) system which generated this result tra nsmitted reference range : <=0.2. The reference r yuridia was not used to int erpret this result as normal/abnormal . [facility] HospitalXguzcrtQEVACSHLEL7469-84-22 06:47:00 Test Item Value Reference Range Interpretation Comments Eosinophils # (test code 0.1 See_Comment [A utomated message] The = Eosinophils #) system wh h generated this result tra nsmitted reference range : <=0.5. The reference r yuridia was not used to int erpret this result as normal/abnormal . [facility] HospitalYxqscjxDBOCTHRAER5309-09-45 06:47:00 Test Item Value Reference Range Interpretation Comments Monocytes # (test code 0.9 See_Comment [Aut omated message] The = Monocytes #) system which generated this result tra nsmitted reference range : <=0.8. The reference r yuridia was not used to int erpret this result as normal/abnormal . [facility] HospitalZaxviupDUYTCCTQZA5681-26-44 06:47:00 Test Item Value Reference Range Interpretation Comments Lymphocytes # (test code = Lymphocytes 4.4 1.0-5.5 #) [facility] HospitalAdbibgrBDYFBAQXLR6181-06-17 06:47:00 Test Item Value Reference Range Interpretation Comments Segs-Bands # (test code = Segs-Bands #) 10.0 1.5-8.1 [facility] HospitalObvmsbeEGJOXDGFRV0954-95-41 06:47:00 Test Item Value Reference Range Interpretation Comments Basophils (test code = 0.6 See_Comment [Aut omated message] The Basophils) system which ge nerated this result tra nsmitted reference range : <=1.0. The reference r yuridia was not used to int erpret this result as normal/abnormal . [facility] HospitalWtpsehbBNVMNLQFLZ2033-54-38 06:47:00 Test Item Value Reference Range Interpretation Comments Eosinophils (test code = 0.5 See_Comment [A utomated message] The Eosinophils) system which ge nerated this result tra nsmitted reference range : <=4.0. The reference r yuridia was not used to int erpret this result as normal/abnormal . [facility] HospitalGirnntxHWIUENOKFD6498-00-90 06:47:00 Test Item Value Reference Range Interpretation Comments Lymphocytes (test code = Lymphocytes) 28.4 20.0-40.0 [facility] HospitalMyplhftNNZKRRVOKZ8528-72-24 06:47:00 Test Item Value Reference Range Interpretation Comments Monocytes (test code = Monocytes) 6.0 2.0-12.0 [facility] HospitalTlmzuurRUBXBZDQTJ7252-16-85 06:47:00 Test Item Value Reference Range Interpretation Comments Segs (test code = Segs) 64.5 45.0-75.0 [facility] HospitalZhtoakoQJRNKNOBUF5002-68-10 06:47:00 Test Item Value Reference Range Interpretation Comments MCH (test code = MCH) 29.4 pg 27.0-31.0 [facility] HospitalZxsgzdaOSWTUQQGZW5746-69-11 06:47:00 Test Item Value Reference Range Interpretation Comments MCV (test code = MCV) 85.3 80.0-98.0 [facility] HospitalNuwgywuLVKHVXJDXA7649-42-99 06:47:00 Test Item Value Reference Range Interpretation Comments Hct (test code = Hct) 37.0 36.0-48.0 [facility] HospitalZmqoasoUNAPJURZDQ2970-96-36 06:47:00 Test Item Value Reference Range Interpretation Comments Hgb (test code = Hgb) 12.8 12.0-16.0 [facility] HospitalNckpguuQKDRBGNERK0372-38-55 06:47:00 Test Item Value Reference Range Interpretation Comments RBC (test code = RBC) 4.34 4.20-5.40 [facility] HospitalLmvaxbwXWAJHPFHXJ0916-72-42 06:47:00 Test Item Value Reference Range Interpretation Comments MPV (test code = MPV) 8.2 7.4-10.4 [facility] HospitalQumihbqTLWENWMMRM6765-30-66 06:47:00 Test Item Value Reference Range Interpretation Comments Platelet (test code = Platelet) 271 133-450 [facility] HospitalEmrbihmRVXCXXGZBD0761-20-08 06:47:00 Test Item Value Reference Range Interpretation Comments RDW (test code = RDW) 14.7 11.5-14.5 [facility] HospitalFuinslpILJTLONRQG1294-96-67 06:47:00 Test Item Value Reference Range Interpretation Comments MCHC (test code = MCHC) 34.5 32.0-36.0 [facility] HospitalRdfjnafGMMWOEZGCW6744-60-19 06:47:00 Test Item Value Reference Range Interpretation Comments WBC (test code = WBC) 15.5 3.7-10.4 [facility] BIILFKVWE3975-16-57 06:47:00 Test Item Value Reference Range Interpretation Comments Hgb A1C (test code = Hgb A1C) 8.4 [facility]2018-06-26 06:47:00 Test Item Value Reference Range Interpretation Comments Ammonia (test code = Ammonia) 32.0 [facility]2018-06-26 06:47:00 Test Item Value Reference Range Interpretation Comments eGFR (test code = eGFR) 93 [facility]2018-06-26 06:47:00 Test Item Value Reference Range Interpretation Comments Globulin (test code = Globulin) 3.9 2.7-4.2 [facility]2018-06-26 06:47:00 Test Item Value Reference Range Interpretation Comments B/C Ratio (test code = B/C Ratio) 22 1 6-25 [facility]2018-06-26 06:47:00 Test Item Value Reference Range Interpretation Comments A/G Ratio (test code = A/G Ratio) 1.0 1 0.7-1.6 [facility]2018-06-26 06:47:00 Test Item Value Reference Range Interpretation Comments ALT (test code = ALT) 16 See_Comment [Auto mated message] The system which ge nerated this result transmit uma reference range : <=65. The reference range was not used to interpr et this result as katie l/abnormal. [facility]2018-06-26 06:47:00 Test Item Value Reference Range Interpretation Comments AST (test code = AST) 21 See_Comment [Auto mated message] The system which ge nerated this result transmit uma reference range : <=37. The reference range was not used to interpr et this result as katie l/abnormal. [facility]2018-06-26 06:47:00 Test Item Value Reference Range Interpretation Comments Alk Phos (test code = Alk Phos) 75 39-136 [facility]2018-06-26 06:47:00 Test Item Value Reference Range Interpretation Comments Bili Total (test code = Bili Total) 0.5 0.2-1.3 [facility]2018-06-26 06:47:00 Test Item Value Reference Range Interpretation Comments AGAP (test code = AGAP) 11.9 10.0-20.0 [facility]2018-06-26 06:47:00 Test Item Value Reference Range Interpretation Comments Chloride Lvl (test code = Chloride Lvl) 109 95-109 [facility]2018-06-26 06:47:00 Test Item Value Reference Range Interpretation Comments Total Protein (test code = Total 7.8 6.4-8.4 Protein) [facility]2018-06-26 06:47:00 Test Item Value Reference Range Interpretation Comments Albumin Lvl (test code = Albumin Lvl) 3.9 3.5-5.0 [facility]2018-06-26 06:47:00 Test Item Value Reference Range Interpretation Comments CO2 (test code = CO2) 24 24-32 [facility]2018-06-26 06:47:00 Test Item Value Reference Range Interpretation Comments Calcium Lvl (test code = Calcium Lvl) 8.7 8.5-10.5 [facility]2018-06-26 06:47:00 Test Item Value Reference Range Interpretation Comments Potassium Lvl (test code = Potassium 3.9 3.5-5.1 Lvl) [facility]2018-06-26 06:47:00 Test Item Value Reference Range Interpretation Comments Sodium Lvl (test code = Sodium Lvl) 141 135-145 [facility]2018-06-26 06:47:00 Test Item Value Reference Range Interpretation Comments Creatinine Lvl (test code = Creatinine 0.72 0.50-1.40 Lvl) [facility]2018-06-26 06:47:00 Test Item Value Reference Range Interpretation Comments BUN (test code = BUN) 16 7-22 [facility]2018-06-26 06:47:00 Test Item Value Reference Range Interpretation Comments Glucose Lvl (test code = Glucose Lvl) 165 70-99 [facility] HospitalVihoibhWDIGJAAORU9295-51-08 06:47:00 Test Item Value Reference Range Interpretation Comments Basophils # (test code 0.1 See_Comment [Aut omated message] The = Basophils #) system which generated this result tra nsmitted reference range : <=0.2. The reference r yuridia was not used to int erpret this result as normal/abnormal . [facility] HospitalJfzyvlcDBIFLNMQZY5453-83-98 06:47:00 Test Item Value Reference Range Interpretation Comments Eosinophils # (test code 0.1 See_Comment [A utomated message] The = Eosinophils #) system whic h generated this result tra nsmitted reference range : <=0.5. The reference r yuridia was not used to int erpret this result as normal/abnormal . [facility] HospitalDkqligoRJFXAGMKTV0058-02-22 06:47:00 Test Item Value Reference Range Interpretation Comments Monocytes # (test code 0.9 See_Comment [Aut omated message] The = Monocytes #) system which generated this result tra nsmitted reference range : <=0.8. The reference r yuridia was not used to int erpret this result as normal/abnormal . [facility] HospitalFbjbflpXRTCGFDHFI3949-96-39 06:47:00 Test Item Value Reference Range Interpretation Comments Lymphocytes # (test code = Lymphocytes 4.4 1.0-5.5 #) [facility] HospitalVklvxqaXPAWKHGDEC5235-16-75 06:47:00 Test Item Value Reference Range Interpretation Comments Segs-Bands # (test code = Segs-Bands #) 10.0 1.5-8.1 [facility] HospitalPrtkspbRXYJQPWMWG4650-33-94 06:47:00 Test Item Value Reference Range Interpretation Comments Basophils (test code = 0.6 See_Comment [Aut omated message] The Basophils) system which ge nerated this result tra nsmitted reference range : <=1.0. The reference r yuridia was not used to int erpret this result as normal/abnormal . [facility] HospitalKknqmanNYNVNDECZW3150-35-46 06:47:00 Test Item Value Reference Range Interpretation Comments Eosinophils (test code = 0.5 See_Comment [A utomated message] The Eosinophils) system which ge nerated this result tra nsmitted reference range : <=4.0. The reference r yuridia was not used to int erpret this result as normal/abnormal . [facility] HospitalLpqwgqfGCNVITJCQE3997-45-53 06:47:00 Test Item Value Reference Range Interpretation Comments Lymphocytes (test code = Lymphocytes) 28.4 20.0-40.0 [facility] HospitalAuniwpnHXAIQXMBBF4122-30-91 06:47:00 Test Item Value Reference Range Interpretation Comments Monocytes (test code = Monocytes) 6.0 2.0-12.0 [facility] HospitalIcyarqtHMGYOLFEVI3513-54-80 06:47:00 Test Item Value Reference Range Interpretation Comments Segs (test code = Segs) 64.5 45.0-75.0 [facility]SqrtqkxPKAISOYGDN2131-13-40 06:47:00 Test Item Value Reference Range Interpretation Comments MCH (test code = MCH) 29.4 pg 27.0-31.0 [facility] HospitalRiqmonrOYHPLYVPHZ0765-36-57 06:47:00 Test Item Value Reference Range Interpretation Comments MCV (test code = MCV) 85.3 80.0-98.0 [facility] HospitalEujqiacXZQJXTDSHW1165-25-68 06:47:00 Test Item Value Reference Range Interpretation Comments Hct (test code = Hct) 37.0 36.0-48.0 [facility] HospitalYbilosgQXHIIHPNDB6237-07-56 06:47:00 Test Item Value Reference Range Interpretation Comments Hgb (test code = Hgb) 12.8 12.0-16.0 [facility] HospitalSocfwxjSIBSWWRTFF8524-13-66 06:47:00 Test Item Value Reference Range Interpretation Comments RBC (test code = RBC) 4.34 4.20-5.40 [facility] HospitalOhsgzbnGWEJSZZEHJ9892-63-95 06:47:00 Test Item Value Reference Range Interpretation Comments MPV (test code = MPV) 8.2 7.4-10.4 [facility] HospitalGuwkzmxHEFHDZWLOY7014-61-66 06:47:00 Test Item Value Reference Range Interpretation Comments Platelet (test code = Platelet) 271 201-450 [facility] HospitalFmoqjhwNICNZBDVNI9256-97-04 06:47:00 Test Item Value Reference Range Interpretation Comments RDW (test code = RDW) 14.7 11.5-14.5 [facility] HospitalOdbmkygTUGUNZPADG7362-02-95 06:47:00 Test Item Value Reference Range Interpretation Comments MCHC (test code = MCHC) 34.5 32.0-36.0 [facility] HospitalByisyzeNAUYPJWLLM8951-52-64 06:47:00 Test Item Value Reference Range Interpretation Comments WBC (test code = WBC) 15.5 3.7-10.4 [facility] BQCSKMBLS0793-94-92 06:47:00 Test Item Value Reference Range Interpretation Comments Hgb A1C (test code = Hgb A1C) 8.4 [facility] HospitalCHEM BZPRO0915-14-96 06:47:00 Test Item Value Reference Range Interpretation Comments Ammonia (test code = Ammonia) 32.0 [facility]2018-06-26 06:47:00 Test Item Value Reference Range Interpretation Comments eGFR (test code = eGFR) 93 [facility]2018-06-26 06:47:00 Test Item Value Reference Range Interpretation Comments Ammonia (test code = Ammonia) 32.0 [facility]2018-06-26 06:47:00 Test Item Value Reference Range Interpretation Comments eGFR (test code = eGFR) 93 [facility]2018-06-26 06:47:00 Test Item Value Reference Range Interpretation Comments Globulin (test code = Globulin) 3.9 2.7-4.2 [facility]2018-06-26 06:47:00 Test Item Value Reference Range Interpretation Comments B/C Ratio (test code = B/C Ratio) 22 1 6-25 [place] 153338-06-26 06:47:00 Test Item Value Reference Range Interpretation Comments A/G Ratio (test code = A/G Ratio) 1.0 1 0.7-1.6 [place] 153338-06-26 06:47:00 Test Item Value Reference Range Interpretation Comments ALT (test code = ALT) 16 See_Comment [Auto mated message] The system which ge nerated this result transmit uma reference range : <=65. The reference range was not used to interpr et this result as katie l/abnormal. [facility]2018-06-26 06:47:00 Test Item Value Reference Range Interpretation Comments AST (test code = AST) 21 See_Comment [Auto mated message] The system which ge nerated this result transmit uma reference range : <=37. The reference range was not used to interpr et this result as katie l/abnormal. [facility]2018-06-26 06:47:00 Test Item Value Reference Range Interpretation Comments Alk Phos (test code = Alk Phos) 75 39-136 [facility]2018-06-26 06:47:00 Test Item Value Reference Range Interpretation Comments Globulin (test code = Globulin) 3.9 2.7-4.2 [facility]2018-06-26 06:47:00 Test Item Value Reference Range Interpretation Comments Bili Total (test code = Bili Total) 0.5 0.2-1.3 [facility]2018-06-26 06:47:00 Test Item Value Reference Range Interpretation Comments AGAP (test code = AGAP) 11.9 10.0-20.0 [facility]2018-06-26 06:47:00 Test Item Value Reference Range Interpretation Comments Chloride Lvl (test code = Chloride Lvl) 109 95-109 [facility]2018-06-26 06:47:00 Test Item Value Reference Range Interpretation Comments Total Protein (test code = Total 7.8 6.4-8.4 Protein) [facility]2018-06-26 06:47:00 Test Item Value Reference Range Interpretation Comments Albumin Lvl (test code = Albumin Lvl) 3.9 3.5-5.0 [facility]2018-06-26 06:47:00 Test Item Value Reference Range Interpretation Comments CO2 (test code = CO2) 24 24-32 [facility]2018-06-26 06:47:00 Test Item Value Reference Range Interpretation Comments Calcium Lvl (test code = Calcium Lvl) 8.7 8.5-10.5 [facility]2018-06-26 06:47:00 Test Item Value Reference Range Interpretation Comments Potassium Lvl (test code = Potassium 3.9 3.5-5.1 Lvl) [facility]2018-06-26 06:47:00 Test Item Value Reference Range Interpretation Comments Sodium Lvl (test code = Sodium Lvl) 141 135-145 [facility]2018-06-26 06:47:00 Test Item Value Reference Range Interpretation Comments Creatinine Lvl (test code = Creatinine 0.72 0.50-1.40 Lvl) [facility]2018-06-26 06:47:00 Test Item Value Reference Range Interpretation Comments B/C Ratio (test code = B/C Ratio) 22 1 6-25 [facility]2018-06-26 06:47:00 Test Item Value Reference Range Interpretation Comments BUN (test code = BUN) 16 7-22 [facility]2018-06-26 06:47:00 Test Item Value Reference Range Interpretation Comments Glucose Lvl (test code = Glucose Lvl) 165 70-99 [facility] HospitalPtaxrxaWDQSQWBCTX2849-72-03 06:47:00 Test Item Value Reference Range Interpretation Comments Basophils # (test code 0.1 See_Comment [Aut omated message] The = Basophils #) system which generated this result tra nsmitted reference range : <=0.2. The reference r yuridia was not used to int erpret this result as normal/abnormal . [facility] HospitalTowkpfbSBTBMYJJLF1503-13-94 06:47:00 Test Item Value Reference Range Interpretation Comments Eosinophils # (test code 0.1 See_Comment [A utomated message] The = Eosinophils #) system wh h generated this result tra nsmitted reference range : <=0.5. The reference r yuridia was not used to int erpret this result as normal/abnormal . [facility] HospitalVpufmhwVRKDEZUPZZ4424-64-89 06:47:00 Test Item Value Reference Range Interpretation Comments Monocytes # (test code 0.9 See_Comment [Aut omated message] The = Monocytes #) system which generated this result tra nsmitted reference range : <=0.8. The reference r yuridia was not used to int erpret this result as normal/abnormal . [facility] HospitalMfynpvgLEYQQKINXX2248-83-26 06:47:00 Test Item Value Reference Range Interpretation Comments Lymphocytes # (test code = Lymphocytes 4.4 1.0-5.5 #) [facility] HospitalWqpfirmFNGUIPIKWB6804-34-55 06:47:00 Test Item Value Reference Range Interpretation Comments Segs-Bands # (test code = Segs-Bands #) 10.0 1.5-8.1 [facility] HospitalNhvefalORQYNZQLVD6978-43-16 06:47:00 Test Item Value Reference Range Interpretation Comments Basophils (test code = 0.6 See_Comment [Aut omated message] The Basophils) system which ge nerated this result tra nsmitted reference range : <=1.0. The reference r yuridia was not used to int erpret this result as normal/abnormal . [facility] HospitalEtoxwkmHVQASBCYBO3500-95-82 06:47:00 Test Item Value Reference Range Interpretation Comments Eosinophils (test code = 0.5 See_Comment [A utomated message] The Eosinophils) system which ge nerated this result tra nsmitted reference range : <=4.0. The reference r yuridia was not used to int erpret this result as normal/abnormal . [facility] HospitalQwdyhtkUYXIWHWZCE6703-12-33 06:47:00 Test Item Value Reference Range Interpretation Comments Lymphocytes (test code = Lymphocytes) 28.4 20.0-40.0 [facility]2018-06-26 06:47:00 Test Item Value Reference Range Interpretation Comments A/G Ratio (test code = A/G Ratio) 1.0 1 0.7-1.6 [facility] HospitalPycjxxfKRNZIKTVSB7410-91-02 06:47:00 Test Item Value Reference Range Interpretation Comments Monocytes (test code = Monocytes) 6.0 2.0-12.0 [facility] HospitalOhxuxgcRIFHUEKJLU9571-44-96 06:47:00 Test Item Value Reference Range Interpretation Comments Segs (test code = Segs) 64.5 45.0-75.0 [facility] HospitalCgokiyySPMNOEVIER0254-41-96 06:47:00 Test Item Value Reference Range Interpretation Comments MCH (test code = MCH) 29.4 pg 27.0-31.0 [facility] HospitalXtmvsolZVPYXUUSTH6117-74-04 06:47:00 Test Item Value Reference Range Interpretation Comments MCV (test code = MCV) 85.3 80.0-98.0 [facility] HospitalTcotggpRURAIAEMIR2040-04-84 06:47:00 Test Item Value Reference Range Interpretation Comments Hct (test code = Hct) 37.0 36.0-48.0 [facility] HospitalYiwuhuaHNSYIOZTWY2570-71-51 06:47:00 Test Item Value Reference Range Interpretation Comments Hgb (test code = Hgb) 12.8 12.0-16.0 [facility] HospitalFtnmokeZCJVPRCFVR8190-96-49 06:47:00 Test Item Value Reference Range Interpretation Comments RBC (test code = RBC) 4.34 4.20-5.40 [facility] [facility]IFTN6334[facility]89 06:47:00 Test Item Value Reference Range Interpretation Comments MPV (test code = MPV) 8.2 7.4-10.4 [facility]BfquiezEILHODFWHR8064-10-67 06:47:00 Test Item Value Reference Range Interpretation Comments Platelet (test code = Platelet) 271 555-450 [facility] HospitalVdxfdgiIQKMFYYSYG1847-47-56 06:47:00 Test Item Value Reference Range Interpretation Comments RDW (test code = RDW) 14.7 11.5-14.5 [facility]2018-06-26 06:47:00 Test Item Value Reference Range Interpretation Comments ALT (test code = ALT) 16 See_Comment [Auto mated message] The system which ge nerated this result transmit uma reference range : <=65. The reference range was not used to interpr et this result as katie l/abnormal. [facility]XvtdfrgRGENJJNWII4273-55-30 06:47:00 Test Item Value Reference Range Interpretation Comments MCHC (test code = MCHC) 34.5 32.0-36.0 [facility] HospitalAjymwusFEHTVHMPNH4041-50-59 06:47:00 Test Item Value Reference Range Interpretation Comments WBC (test code = WBC) 15.5 3.7-10.4 [facility] IXCPYAHWQ6997-97-23 06:47:00 Test Item Value Reference Range Interpretation Comments Hgb A1C (test code = Hgb A1C) 8.4 [facility] [id number] 06:47:00 Test Item Value Reference Range Interpretation Comments AST (test code = AST) 21 See_Comment [Auto mated message] The system which ge nerated this result transmit uma reference range : <=37. The reference range was not used to interpr et this result as katie l/abnormal. [facility] [id number] 06:47:00 Test Item Value Reference Range Interpretation Comments Alk Phos (test code = Alk Phos) 75 39-136 [facility] [id number] 06:47:00 Test Item Value Reference Range Interpretation Comments Bili Total (test code = Bili Total) 0.5 0.2-1.3 [facility] [id number] 06:47:00 Test Item Value Reference Range Interpretation Comments AGAP (test code = AGAP) 11.9 10.0-20.0 [facility] [id number] 06:47:00 Test Item Value Reference Range Interpretation Comments Chloride Lvl (test code = Chloride Lvl) 109 95-109 [facility] [id number] 06:47:00 Test Item Value Reference Range Interpretation Comments Total Protein (test code = Total 7.8 6.4-8.4 Protein) [facility] [id number] 06:47:00 Test Item Value Reference Range Interpretation Comments Albumin Lvl (test code = Albumin Lvl) 3.9 3.5-5.0 [facility]2018-06-26 06:47:00 Test Item Value Reference Range Interpretation Comments CO2 (test code = CO2) 24 24-32 [place] 153338-06-26 06:47:00 Test Item Value Reference Range Interpretation Comments Calcium Lvl (test code = Calcium Lvl) 8.7 8.5-10.5 [place] 153338-06-26 06:47:00 Test Item Value Reference Range Interpretation Comments Potassium Lvl (test code = Potassium 3.9 3.5-5.1 Lvl) [place] 153338-06-26 06:47:00 Test Item Value Reference Range Interpretation Comments Sodium Lvl (test code = Sodium Lvl) 141 135-145 [place] 153338-06-26 06:47:00 Test Item Value Reference Range Interpretation Comments Creatinine Lvl (test code = Creatinine 0.72 0.50-1.40 Lvl) [place] 153338-06-26 06:47:00 Test Item Value Reference Range Interpretation Comments BUN (test code = BUN) 16 7-22 [place] 153338-06-26 06:47:00 Test Item Value Reference Range Interpretation Comments Glucose Lvl (test code = Glucose Lvl) 165 70-99 [facility]TpdgbtwEKXSCXSDHF9296-87-70 06:47:00 Test Item Value Reference Range Interpretation Comments Basophils # (test code 0.1 See_Comment [Aut omated message] The = Basophils #) system which generated this result tra nsmitted reference range : <=0.2. The reference r yuridia was not used to int erpret this result as normal/abnormal . [facility] HospitalGrusgogMYSTGYEOHA4465-28-04 06:47:00 Test Item Value Reference Range Interpretation Comments Eosinophils # (test code 0.1 See_Comment [A utomated message] The = Eosinophils #) system whic h generated this result tra nsmitted reference range : <=0.5. The reference r yuridia was not used to int erpret this result as normal/abnormal . [facility] HospitalYzdhhhsKQMEDMZEWE4912-90-02 06:47:00 Test Item Value Reference Range Interpretation Comments Monocytes # (test code 0.9 See_Comment [Aut omated message] The = Monocytes #) system which generated this result tra nsmitted reference range : <=0.8. The reference r yuridia was not used to int erpret this result as normal/abnormal . [facility] HospitalTrjglakHCRKQVYGHK6247-90-16 06:47:00 Test Item Value Reference Range Interpretation Comments Lymphocytes # (test code = Lymphocytes 4.4 1.0-5.5 #) [facility] HospitalEgbvonxTTBIDZUNMR8110-56-42 06:47:00 Test Item Value Reference Range Interpretation Comments Segs-Bands # (test code = Segs-Bands #) 10.0 1.5-8.1 [facility] HospitalCvtnkshBNPJBTGNSA4314-55-79 06:47:00 Test Item Value Reference Range Interpretation Comments Basophils (test code = 0.6 See_Comment [Aut omated message] The Basophils) system which ge nerated this result tra nsmitted reference range : <=1.0. The reference r yuridia was not used to int erpret this result as normal/abnormal . [facility] HospitalYdzxyjiGFAQELXBRL1065-02-07 06:47:00 Test Item Value Reference Range Interpretation Comments Eosinophils (test code = 0.5 See_Comment [A utomated message] The Eosinophils) system which ge nerated this result tra nsmitted reference range : <=4.0. The reference r yuridia was not used to int erpret this result as normal/abnormal . [facility] HospitalDqxhwbnLFCEBDJKTD0117-09-33 06:47:00 Test Item Value Reference Range Interpretation Comments Lymphocytes (test code = Lymphocytes) 28.4 20.0-40.0 [facility] HospitalDbawmatMFTFLLDUEJ6546-19-85 06:47:00 Test Item Value Reference Range Interpretation Comments Monocytes (test code = Monocytes) 6.0 2.0-12.0 [facility] HospitalEyesallPWSNLSGBYQ1217-57-10 06:47:00 Test Item Value Reference Range Interpretation Comments Segs (test code = Segs) 64.5 45.0-75.0 [facility] HospitalQdcdhbtNVXHHSINUC5853-06-28 06:47:00 Test Item Value Reference Range Interpretation Comments MCH (test code = MCH) 29.4 pg 27.0-31.0 [facility] HospitalDkvphzdNDNLBOYIFA2530-15-64 06:47:00 Test Item Value Reference Range Interpretation Comments MCV (test code = MCV) 85.3 80.0-98.0 [facility] HospitalZajhggcYDRLQVESOZ3090-23-45 06:47:00 Test Item Value Reference Range Interpretation Comments Hct (test code = Hct) 37.0 36.0-48.0 [facility] HospitalFrdibrpVCEMWEACPS2328-38-33 06:47:00 Test Item Value Reference Range Interpretation Comments Hgb (test code = Hgb) 12.8 12.0-16.0 [facility]LhriywfZNWZFZHRGC7049-55-13 06:47:00 Test Item Value Reference Range Interpretation Comments RBC (test code = RBC) 4.34 4.20-5.40 [facility] HospitalAwbevjtFNQXZYIAGD7002-74-60 06:47:00 Test Item Value Reference Range Interpretation Comments MPV (test code = MPV) 8.2 7.4-10.4 [facility] HospitalQskgmznYCBABJEWRZ1758-46-04 06:47:00 Test Item Value Reference Range Interpretation Comments Platelet (test code = Platelet) 271 133-450 [facility] HospitalOpmxlsnNVXCJSSCHZ4729-28-14 06:47:00 Test Item Value Reference Range Interpretation Comments RDW (test code = RDW) 14.7 11.5-14.5 [facility] HospitalYunvtaiFXKXKVSPXR7127-49-60 06:47:00 Test Item Value Reference Range Interpretation Comments MCHC (test code = MCHC) 34.5 32.0-36.0 [facility] HospitalWzbaguwUMWWUGRFUZ3753-57-67 06:47:00 Test Item Value Reference Range Interpretation Comments WBC (test code = WBC) 15.5 3.7-10.4 [facility] JHYJKKJWR5461-65-16 06:47:00 Test Item Value Reference Range Interpretation Comments Hgb A1C (test code = Hgb A1C) 8.4 [facility] HospitalCHEM [id number] 06:47:00 Test Item Value Reference Range Interpretation Comments Ammonia (test code = Ammonia) 32.0 [facility] RKUNE5873-30-75 06:47:00 Test Item Value Reference Range Interpretation Comments eGFR (test code = eGFR) 93 [facility] CQVQN9043-94-95 06:47:00 Test Item Value Reference Range Interpretation Comments Globulin (test code = Globulin) 3.9 2.7-4.2 [facility] IUOFA4705-64-50 06:47:00 Test Item Value Reference Range Interpretation Comments B/C Ratio (test code = B/C Ratio) 22 1 6-25 [facility] ECBAP6452-58-29 06:47:00 Test Item Value Reference Range Interpretation Comments A/G Ratio (test code = A/G Ratio) 1.0 1 0.7-1.6 [facility]2018-06-26 06:47:00 Test Item Value Reference Range Interpretation Comments ALT (test code = ALT) 16 See_Comment [Auto mated message] The system which ge nerated this result transmit uma reference range : <=65. The reference range was not used to interpr et this result as katie l/abnormal. [facility]2018-06-26 06:47:00 Test Item Value Reference Range Interpretation Comments AST (test code = AST) 21 See_Comment [Auto mated message] The system which ge nerated this result transmit uma reference range : <=37. The reference range was not used to interpr et this result as katie l/abnormal. [facility]2018-06-26 06:47:00 Test Item Value Reference Range Interpretation Comments Alk Phos (test code = Alk Phos) 75 39-136 [facility]2018-06-26 06:47:00 Test Item Value Reference Range Interpretation Comments Bili Total (test code = Bili Total) 0.5 0.2-1.3 [facility]2018-06-26 06:47:00 Test Item Value Reference Range Interpretation Comments AGAP (test code = AGAP) 11.9 10.0-20.0 [facility]2018-06-26 06:47:00 Test Item Value Reference Range Interpretation Comments Chloride Lvl (test code = Chloride Lvl) 109 95-109 [facility]MG[facility]VTZEL5473-04-24 06:47:00 Test Item Value Reference Range Interpretation Comments Total Protein (test code = Total 7.8 6.4-8.4 Protein) [facility]2018-06-26 06:47:00 Test Item Value Reference Range Interpretation Comments Albumin Lvl (test code = Albumin Lvl) 3.9 3.5-5.0 [facility]2018-06-26 06:47:00 Test Item Value Reference Range Interpretation Comments CO2 (test code = CO2) 24 24-32 [facility]2018-06-26 06:47:00 Test Item Value Reference Range Interpretation Comments Calcium Lvl (test code = Calcium Lvl) 8.7 8.5-10.5 [facility]2018-06-26 06:47:00 Test Item Value Reference Range Interpretation Comments Potassium Lvl (test code = Potassium 3.9 3.5-5.1 Lvl) [facility]2018-06-26 06:47:00 Test Item Value Reference Range Interpretation Comments Sodium Lvl (test code = Sodium Lvl) 141 135-145 [place] 153338-06-26 06:47:00 Test Item Value Reference Range Interpretation Comments Creatinine Lvl (test code = Creatinine 0.72 0.50-1.40 Lvl) [facility]2018-06-26 06:47:00 Test Item Value Reference Range Interpretation Comments BUN (test code = BUN) 16 7-22 [facility]2018-06-26 06:47:00 Test Item Value Reference Range Interpretation Comments Glucose Lvl (test code = Glucose Lvl) 165 70-99 [facility] HospitalFlpmtyuLDWUCFBFSL4445-38-34 06:47:00 Test Item Value Reference Range Interpretation Comments Basophils # (test code 0.1 See_Comment [Aut omated message] The = Basophils #) system which generated this result tra nsmitted reference range : <=0.2. The reference r yuridia was not used to int erpret this result as normal/abnormal . [facility] HospitalDreldtjWPAPTQFFEJ4717-16-07 06:47:00 Test Item Value Reference Range Interpretation Comments Eosinophils # (test code 0.1 See_Comment [A utomated message] The = Eosinophils #) system whic h generated this result tra nsmitted reference range : <=0.5. The reference r yuridia was not used to int erpret this result as normal/abnormal . [facility] HospitalJfqwzbbXNJRWUNBMV4696-57-89 06:47:00 Test Item Value Reference Range Interpretation Comments Monocytes # (test code 0.9 See_Comment [Aut omated message] The = Monocytes #) system which generated this result tra nsmitted reference range : <=0.8. The reference r yuridia was not used to int erpret this result as normal/abnormal . [facility] HospitalUjucuqlHXDTGAZJEH5412-09-22 06:47:00 Test Item Value Reference Range Interpretation Comments Lymphocytes # (test code = Lymphocytes 4.4 1.0-5.5 #) [facility] HospitalWxtrkteBDKXQINQDA1279-73-97 06:47:00 Test Item Value Reference Range Interpretation Comments Segs-Bands # (test code = Segs-Bands #) 10.0 1.5-8.1 [facility] HospitalDmzxvzrOOSQROCXSK3398-53-57 06:47:00 Test Item Value Reference Range Interpretation Comments Basophils (test code = 0.6 See_Comment [Aut omated message] The Basophils) system which ge nerated this result tra nsmitted reference range : <=1.0. The reference r yuridia was not used to int erpret this result as normal/abnormal . [facility] HospitalRsweezwZAKYIEIVZS8872-24-24 06:47:00 Test Item Value Reference Range Interpretation Comments Eosinophils (test code = 0.5 See_Comment [A utomated message] The Eosinophils) system which ge nerated this result tra nsmitted reference range : <=4.0. The reference r yuridia was not used to int erpret this result as normal/abnormal . [facility] HospitalBfxdsljURSIMPESOU7755-27-02 06:47:00 Test Item Value Reference Range Interpretation Comments Lymphocytes (test code = Lymphocytes) 28.4 20.0-40.0 [facility] HospitalMdchjwyAHWQFLXNVD8023-01-42 06:47:00 Test Item Value Reference Range Interpretation Comments Monocytes (test code = Monocytes) 6.0 2.0-12.0 [facility] HospitalUbsxaqkJEISQGNDMI6057-55-54 06:47:00 Test Item Value Reference Range Interpretation Comments Segs (test code = Segs) 64.5 45.0-75.0 [facility] HospitalHteqgxxGQBXNNABLG7567-91-27 06:47:00 Test Item Value Reference Range Interpretation Comments MCH (test code = MCH) 29.4 pg 27.0-31.0 [facility] HospitalGhdruzyWSGVHFWQUX3160-75-34 06:47:00 Test Item Value Reference Range Interpretation Comments MCV (test code = MCV) 85.3 80.0-98.0 [facility] HospitalPtdfhqyBXFWSDZMJS9813-11-37 06:47:00 Test Item Value Reference Range Interpretation Comments Hct (test code = Hct) 37.0 36.0-48.0 [facility] HospitalChmsjosWEDJZQQBVH8640-34-80 06:47:00 Test Item Value Reference Range Interpretation Comments Hgb (test code = Hgb) 12.8 12.0-16.0 [facility] HospitalShamlbsKWOTPQIWAZ5776-17-81 06:47:00 Test Item Value Reference Range Interpretation Comments RBC (test code = RBC) 4.34 4.20-5.40 [facility] HospitalRimfdfbXSEJPJLLIA0876-62-58 06:47:00 Test Item Value Reference Range Interpretation Comments MPV (test code = MPV) 8.2 7.4-10.4 [facility] HospitalWgijdpgHPEBXMGXTW7771-61-04 06:47:00 Test Item Value Reference Range Interpretation Comments Platelet (test code = Platelet) 271 133-450 [facility] HospitalTygpchzACWAQUNJNN6939-62-49 06:47:00 Test Item Value Reference Range Interpretation Comments RDW (test code = RDW) 14.7 11.5-14.5 [facility] HospitalOwvpkwsYHWYDRYUJD1507-24-12 06:47:00 Test Item Value Reference Range Interpretation Comments MCHC (test code = MCHC) 34.5 32.0-36.0 [facility] HospitalYyjtdyuMBSCRNRYRC2768-42-62 06:47:00 Test Item Value Reference Range Interpretation Comments WBC (test code = WBC) 15.5 3.7-10.4 [facility] MTBHJWMFE7346-79-78 06:47:00 Test Item Value Reference Range Interpretation Comments Hgb A1C (test code = Hgb A1C) 8.4 [facility] HospitalBACT[facility] - SJHTKJTM5816-55-20 05:39:00 Test Item Value Reference Range Interpretation Comments MRSA by PCR (test Positive 1*ABN*(09/15/17 code = MRSA by PCR) 12:39 AM) [facility] HospitalBACT[facility] - MGSFIQHH2405-83-54 05:39:00 Test Item Value Reference Range Interpretation Comments MRSA by PCR (test Positive 1*ABN*(09/15/17 code = MRSA by PCR) 12:39 AM) [facility] HospitalBACT[facility] - OHLRPIDG1497-56-44 05:39:00 Test Item Value Reference Range Interpretation Comments MRSA by PCR (test Positive 1*ABN*(09/15/17 code = MRSA by PCR) 12:39 AM) [facility] HospitalBACTERIAL WEVJRIID6093-11-60 05:39:00 Test Item Value Reference Range Interpretation Comments MRSA by PCR (test Positive 1*ABN*(09/15/17 code = MRSA by PCR) 12:39 AM) [facility] [id number] 05:39:00 Test Item Value Reference Range Interpretation Comments MRSA by PCR (test Positive 1*ABN*(09/15/17 code = MRSA by PCR) 12:39 AM) [facility] - [id number] 05:39:00 Test Item Value Reference Range Interpretation Comments MRSA by PCR (test Positive 1*ABN*(09/15/17 code = MRSA by PCR) 12:39 AM) [facility] - RIFSXHIG5055-73-77 05:39:00 Test Item Value Reference Range Interpretation Comments MRSA by PCR (test Positive 1*ABN*(09/15/17 code = MRSA by PCR) 12:39 AM) [facility] - [id number] 05:39:00 Test Item Value Reference Range Interpretation Comments MRSA by PCR (test Positive 1*ABN*(09/15/17 code = MRSA by PCR) 12:39 AM) [facility] CYWPHQMU5557-02-15 05:39:00 Test Item Value Reference Range Interpretation Comments MRSA by PCR (test Positive 1*ABN*(09/15/17 code = MRSA by PCR) 12:39 AM) [facility] Notes Date/Time Note Provider Source 2017-09-15 13:05:00-00:00 Patient Name: JENNIFER ROSAS [facility] : 1960; Age: 56 years y/o Female MR: [id number] Study: Brain w/wo contrast MRI 09/15/2017 9:47 AM CDT Ordering Physician: Chloe Ruvalcaba MD Clinical Indication: - first partial seizure; Comparison: CTA head and neck dated 09/15/2017. TECHNIQUE: Multiplanar pre- and post-gadolinium contrast-enhanced MRI of the brain is performed on a 1.5 Bernice magnet. FINDINGS: BRAIN PARENCHYMA: No abnorma l signal identified on diffusion-weighted imaging to suggest an acute infarction. No significant extra-axial fluid collection, mass effect or shift. Minimal patchy increased signal on T2-weighted images in the left occipital white matter consistent with minimal small vessel change. No other abnormal areas of signal intensity identified about the brain. No abnormal areas of enhancement identified in the brain, leptomening es or dura. CEREBELLOPONTINE REGIONS AND SKULL BASE: The skull base, pituitary gland and craniocervical junction are unremarkable. VENTRICLES: Ventricles and s ulci are within normal limits for the patient's age. VISUALIZED VESSELS: Normal f low-voids identified in the major vessels at the base of the brain. ORBITS, VISUALIZED PARANASAL SINUSES AND MASTOIDS: The visualized orbits and paranasal sinuses are unremarkable. The mastoid air cells are clear. IMPRESSION: 1. Minimal small vessel change left occipital wh ite matter. 2. Otherwise unremarkable brain MRI with and wit hout contrast. SL: [id number] 2017-09-15 04:56:32-00:00 CTA CHEST WITH CONTRAST [facility] INDICATION: Evaluate for PE, - r/o PE. CT dose DLP: CTA of the chest was performed in conjunction with the CTA neck/brain. Refer to that study for CT dose DLP. COMPARISON: None TECHNIQUE: CTA of the chest was performed after administration of intravenous contrast. Coronal, sagittal, and 3-D reformatted images were utilized. DISCUSSION: There is suboptimal timing o f the contrast bolus for evaluation of the pulmonary arteries. Evaluation for pulmonary embolism is limited. Grossly, no central pulmonary emboli are visible. The heart is no rmal in size. The aorta is p atent and normal in caliber, without evidence of dissection. Evaluation of the lungs is l imited due to motion artifacts. There is no consolidation, pleural effusion, or pneumothorax. There is a calcified granuloma the right lung. Grossly, no suspicious pulmonary nodules or suspicious lympha denopathy are seen. Calcified right hilar and mediastinal lymph nodes are noted. Limited evaluation of the upper abdominal struct ures is grossly unremarkable. BONES: No acute bony abnormalities are seen. IMPRESSION: Grossly no evidence of pulmo nary embolism. No acute intrathoracic abnormalities are visualized. SL:16 2017-09-15 04:56:32-00:00 Clinical Indication: - eval stenosis. [facility] Comparison: None. TECHNIQUE: Sequential trans- axial images of the head and neck were obtained with a multi-detector helical CT after iodinated contrast administration. Coronal and sagittal reconstructions and were obtain ed, along with 3D post-proce ssing imaging for exam interpretation. CT imaging was performed with exposure control parameters to reduce radiation dose. CONTRAST: 100 cc of IV Omnipaque contrast materi al was used for the exam. CT Radiation Dose DLP 2640 mGy-cm FINDINGS: CTA NECK: VASCULAR EVALUATION: The carl gins of the great vessels and visualized upper thoracic aortic arch are unremarkable. The common carotid arteries are widely patent bilaterally. There is atherosclerotic calcification at the carotid bulbs without evidence of associated flow-limiting stenosis. The internal and external ca rotid artery origins are wid marco patent. The cervical internal carotid arteries are widely patent. There is no significant stenosis by NASCET crite jakob. Bilateral cervical segments of the vertebral art eries are widely patent. The source images show no evidence of dissection s. If there is further concern, recommend conventional angiography for complete assessment. Any reported ICA stenosis di rectly references the distal internal carotid diameter as the denominator for stenosis measurement. NON-VASCULAR STRUCTURES: The re is a 6 mm nodule within the right thyroid gland. There are mild degenerative changes of cervical spine without evidence of high- grade osseous spinal canal stenosis. Otherwise, unremarkable. CTA HEAD: ANTERIOR CIRCULATION: The sahu praclinoid, petrous, cavernous and ophthalmic segments of the internal carotid arteries are unremarkable. The A1 and A2 segments of the anterior cerebral arteries, middle cer ebral arteries and branches are unremarkable. The anterior communicating artery is unremarkable. The posterior communicating arteries are not definitively visualized. POSTERIOR CIRCULATION: Bilat eral vertebral arteries, basilar artery, superior cerebellar and posterior cerebral arteries are unremarkable. The posterior inferior cerebellar arteries are unremarkable. There are no aneurysms or ar teriovenous malformations seen. There is no significant atherosclerotic disease. HEAD CT: The noncontrast images of th e head show no mass-effect or midline shift. There are no intra or extra-axial fluid collections, intraventricular or intraparenchymal hemorrhages. The ventricles and cisterns are normal. The contrast-enhanced images of the head show no abnormally enhancing lesions. If there is further concern, recommend conventional angiography for complete assessment. IMPRESSION: No specific evidence of acut e infarction, intracranial hemorrhage, intracranial mass lesion or hydrocephalus. No evidence of proximal cutoff, significant sten osis or aneurysm on head CTA. No evidence of proximal cuto ff or significant stenosis on the neck CTA, noting mineralized atherosclerotic plaque at the bilateral carotid bifurcations. ROSALINDA: SHEYLA 2017-09-15 04:30:00-00:00 Portable chest: The cardiome diastinal silhouette and pulmonary vasculature are within normal limits. The lungs and pleural spaces are clear. There are no acute osseous abnormalities. Micky Perez IMPRESSION: No acute radiographic abnormality in the chest. ROSALINDA [id number]
--- NOTE | 2022-09-02 18:44 | RAD REPORT ---
EXAM DESCRIPTION: RAD - Ankle Right 3 View - 09/02/2022 6:02 pm CLINICAL HISTORY: PAIN COMPARISON: No comparisons TECHNIQUE: Right ankle, 3 views. FINDINGS: Minimally displaced lateral malleolus fracture. Slight widening of the ankle joint space a nd medial clear space. No Dislocation or periosteal reaction. No joint effusion seen. No joint space narrowing. Mild anterior and lateral edematous changes at the level of the ankle joint. IMPRESSION: Minimally displaced lateral malleolus fracture. Correlation with additional radiographic imaging of the tibia and fibula more proximally is recommended to exclude other fractures.
[2022-09-02] MEDS ORDERED: ONDANSETRON 4 MG (ODT) TAB ONE (19:29)
--- NOTE | 2022-09-02 19:53 | RAD REPORT ---
EXAM DESCRIPTION: RAD - Tib Fib Right - 09/02/2022 7:20 pm CLINICAL HISTORY: PAIN COMPARISON: No comparisons TECHNIQUE: Right tibia and fibula, 2 views. FINDINGS: No fracture is identified. There is no dislocation or periosteal reaction noted. No acute or suspicious bony finding. No foreign body or other soft tissue abnormality. IMPRESSION: Negative right tibia & fibula examination.
--- NOTE | 2022-09-02 19:56 | EDPHYS ---
Physician Documentation [facility] Name: Genet Cruz Age: 61 yrs Sex: Female : 1960 Arrival Date: 09/02/2022 Time: 17:35 Bed 10 Private MD: Godwin James S ED Physician Marin Ivy HPI: 09/02 20:20 This 61 yrs old Female presents to ER via Wheelchair with complaints of Ankle Injury. kb 20:20 The patient presents with pain, swelling, tenderness. The complaints affect the right kb ankle. Onset: The symptoms/episode began/occurred 2 day(s) ago. Context: The problem was sustained at home, resulted from the patient tripping, The patient can fully bear weight on the affected extremity. the patient is able to ambulate. Associated signs and symptoms: Pertinent positives: swelling, Pertinent negatives: calf tenderness, fever, nausea, numbness, rash, tingling, vomiting, warmth, weakness. Modifying factors: The symptoms are alleviated by nothing, the symptoms are aggravated by weight bearing. Severity of symptoms: At their worst the symptoms were moderate, in the emergency department the symptoms are unchanged. The patient has not experienced similar symptoms in the past. The patient has not recently seen a physician. Historical: - Allergies: 17:47 Codeine; cm10 17:47 PENICILLINS; cm10 - PMHx: 17:47 chronic pain (L) arm; Diabetes - IDDM; Hypertension; TIA; cm10 - Immunization history:: Adult Immunizations unknown. - Social history:: Smoking status: Reported history of juuling and/or vaping. ROS: 20:19 Constitutional: Negative for fever, chills, and weight loss. kb 20:19 MS/extremity: Positive for pain, swelling, tenderness, of the right ankle. 20:19 All other systems are negative. Exam: 20:19 Constitutional: This is a well developed, well nourished patient who is awake, alert, kb and in no acute distress. Head/Face: Normocephalic, atraumatic. ENT: Moist Mucous membranes Cardiovascular: Regular rate and rhythm with a normal S1 and S2. No gallops, murmurs, or rubs. No pulse deficits. Respiratory: Respirations even and unlabored. No increased work of breathing. Talking in full sentences Skin: Warm, dry with normal turgor. Normal color. Neuro: Awake and alert, GCS 15, oriented to person, place, time, and situation. Moves all extremities. Normal gait. 20:19 Musculoskeletal/extremity: Extremities: grossly normal except: noted in the right ankle: pain, swelling, tenderness, ROM: intact in all extremities, Circulation is intact in all extremities. Sensation intact. Weight bearing: able to fully bear weight. Vital Signs: 17:45 BP 102 / 62; Pulse 77; Resp 18; Temp 97.7; Pulse Ox 99% on R/A; Weight 74.84 kg; Height cm10 5 ft. 4 in. ; Pain 9/10; 19:00 BP 111 / 69; Pulse 79; Resp 18; Pulse Ox 99% on R/A; Pain 9/10; pf1 20:00 BP 110 / 72; Pulse 75; Pulse Ox 100% on R/A; Pain 7/10; pf1 17:45 Body Mass Index 28.32 (74.84 kg, 162.56 cm) cm10 17:45 Pain Scale: Adult cm10 19:00 Pain Scale: Adult pf1 20:00 Pain Scale: Adult pf1 MDM: 17:39 Patient medically screened. kb 20:19 Differential diagnosis: fracture, sprain. Data reviewed: vital signs, nurses notes. kb Counseling: I had a detailed discussion with the patient and/or guardian regarding: the historical points, exam findings, and any diagnostic results supporting the discharge/admit diagnosis, radiology results, the need for outpatient follow up, a orthopedic surgeon, to return to the emergency department if symptoms worsen or persist or if there are any questions or concerns that arise at home. 20:21 ED course: Pt concerned that she will fall if she tries to use crutches. Pt has been kb walking with a cane. Educated to continue to use can and try to keep as much pressure of right ankle as possible. 09/02 17:46 Order name: Ankle Right 3 View XRAY; Complete Time: 18:47 kb 09/02 18:47 Order name: Tib Fib Right XRAY; Complete Time: 19:54 kb 09/02 19:55 Order name: Walking boot; Complete Time: 20:22 kb Administered Medications: 18:05 Drug: Clinton PO 10 mg-325 mg 1 tabs Route: PO; ko1 19:00 Follow up: Response: No adverse reaction; Marked relief of symptoms; Pain is decreased; pf1 RASS: Alert and Calm (0) 19:25 Drug: Ondansetron PO 4 mg Route: PO; pf1 19:55 Follow up: Response: No adverse reaction; Marked relief of symptoms pf1 Disposition Summary: 09/02/22 19:55 Discharge Ordered Location: Home kb Condition: Stable kb Diagnosis - Fracture of lateral malleolus kb Followup: kb - With: Emergency Department - When: As needed - Reason: Worsening of condition Followup: kb - With: Private Physician - When: 2 - 3 days - Reason: Recheck today's complaints, Continuance of care, Re-evaluation by your physician Discharge Instructions: - Discharge Summary Sheet kb - Ankle Fracture, [id number] kb Forms: - Medication Reconciliation Form kb - Thank You Letter kb - Antibiotic Education kb - Prescription Opioid Use kb Signatures: Dispatcher [employer] EDMS Norma Harper, LEILANIC VENEER GLUE SPREADER-Sydney Weber RN RN ko1 Bella Currie RN RN pf1 Indira Winston RN RN cm10
--- NOTE | 2022-09-02 19:56 | ER ---
Nurse's Notes [facility] Name: Genet Cruz Age: 61 yrs Sex: Female : 1960 Arrival Date: 09/02/2022 Time: 17:35 Bed 10 Private MD: Godwin James S Diagnosis: Fracture of lateral malleolus Presentation: 09/02 17:43 Chief complaint: Patient states: Pt presenting for right ankle pain s/p trip and fall. cm10 Patient presenting with ankle brace to right ankle. Swelling noted to patients ankle. Ebola Screen: No symptoms or risks identified at this time. 17:43 Method Of Arrival: Wheelchair cm10 17:45 Coronavirus screen: Vaccine status: Patient reports being unvaccinated. Client denies 10 travel out of the [place] in the last 14 days. At this time, the client does not indicate any symptoms associated with coronavirus-19. Initial Sepsis Screen: Does the patient meet any 2 criteria? No. Patient's initial sepsis screen is negative. Does the patient have a suspected source of infection? No. Patient's initial sepsis screen is negative. Risk Assessment: Do you want to hurt yourself or someone else? Patient reports no desire to harm self or others. Onset of symptoms was September 02, 2022. 17:45 Acuity: IVA 4 cm10 Historical: - Allergies: 17:47 Codeine; cm10 17:47 PENICILLINS; cm10 - PMHx: 17:47 chronic pain (L) arm; Diabetes - IDDM; Hypertension; TIA; cm10 - Immunization history:: Adult Immunizations unknown. - Social history:: Smoking status: Reported history of juuling and/or vaping. Screenin:45 [facility] ED Fall Risk Assessment (Adult) History of falling in the last 3 months, ko1 including since admission No falls in past 3 months (0 pts) Confusion or Disorientation No (0 pts) Intoxicated or Sedated No (0 pts) Impaired Gait No (0 pts) Mobility Assist Device Used No (0 pt) Altered Elimination No (0 pt) Score/Fall Risk Level 0 - 2 = Low Risk Oriented to surroundings, Maintained a safe environment, Educated pt \T\ family on fall prevention, incl call for assistance when getting out of bed, Assessed \T\ reinforced patient's understanding of fall precautions, Provided non-skid footwear, Hourly rounding (assess needs \T\ fall precautionary measures) done, Used ambulatory aids as needed (educated on \T\ assisted with), Used gait belt as appropriate. Abuse screen: Denies threats or abuse. Denies injuries from another. Nutritional screening: No deficits noted. Tuberculosis screening: No symptoms or risk factors identified. Assessment: 17:45 General: Appears in no apparent distress. uncomfortable, Behavior is calm, cooperative, ko1 appropriate for age. Pain: Complains of pain in right ankle. Neuro: No deficits noted. Cardiovascular: No deficits noted. Respiratory: No deficits noted. GI: No deficits noted. : No deficits noted. EENT: No deficits noted. Derm: No deficits noted. Musculoskeletal: Reports pain in right ankle. 19:06 General: Appears in no apparent distress. uncomfortable, well groomed, well developed, pf1 Behavior is calm, cooperative, appropriate for age, quiet. Pain: Complains of pain in right ankle Pain currently is 9 out of 10 on a pain scale. Aggravated by weight bearing. Neuro: No deficits noted. Level of Consciousness is awake, alert, obeys commands, Oriented to person, place, time, situation. Cardiovascular: No deficits noted. Capillary refill < 3 seconds Patient's skin is warm and dry. Respiratory: No deficits noted. Airway is patent Respiratory effort is even, unlabored, Respiratory pattern is regular, symmetrical. GI: No deficits noted. Abdomen is round non-distended. : No deficits noted. No signs and/or symptoms were reported regarding the genitourinary system. EENT: No deficits noted. No signs and/or symptoms were reported regarding the EENT system. Derm: No deficits noted. Musculoskeletal: Circulation, motion, and sensation intact. Capillary refill < 3 seconds, Swelling present in right ankle Reports pain in right ankle. Vital Signs: 17:45 BP 102 / 62; Pulse 77; Resp 18; Temp 97.7; Pulse Ox 99% on R/A; Weight 74.84 kg; Height cm10 5 ft. 4 in. ; Pain 9/10; 19:00 BP 111 / 69; Pulse 79; Resp 18; Pulse Ox 99% on R/A; Pain 9/10; pf1 20:00 BP 110 / 72; Pulse 75; Pulse Ox 100% on R/A; Pain 7/10; pf1 17:45 Body Mass Index 28.32 (74.84 kg, 162.56 cm) cm10 17:45 Pain Scale: Adult cm10 19:00 Pain Scale: Adult pf1 20:00 Pain Scale: Adult pf1 ED Course: 17:38 Patient arrived in ED. im 17:38 Godwin James MD is Private Physician. im 17:39 Norma Harper [facility]-C [facility] kb 17:39 Marin Ivy MD is Attending Physician. kb 17:45 Patient has correct armband on for positive identification. Bed in low position. Call ko1 light in reach. Side rails up X 1. Pulse ox on. NIBP on. Door closed. Noise minimized. Warm blanket given. 17:47 Triage completed. cm10 17:48 Arm band placed on Patient placed in an exam room, on a stretcher. cm10 18:04 Ankle Right 3 View XRAY In Process Unspecified. EDMS 18:05 Sydney Hernandes, RN is Primary Nurse. ko1 19:22 Tib Fib Right XRAY In Process Unspecified. EDMS 20:10 Patient did not have IV access during this emergency room visit. walking boot applied pf1 to right foot. 20:20 No provider procedures requiring assistance completed. pf1 Administered Medications: 18:05 Drug: [place] PO 10 mg-325 mg 1 tabs Route: PO; ko1 19:00 Follow up: Response: No adverse reaction; Marked relief of symptoms; Pain is decreased; pf1 RASS: Alert and Calm (0) 19:25 Drug: Ondansetron PO 4 mg Route: PO; pf1 19:55 Follow up: Response: No adverse reaction; Marked relief of symptoms pf1 Medication: 17:45 VIS not applicable for this client. ko1 Outcome: 19:55 Discharge ordered by . kb 20:22 Discharged to home via wheelchair, with family. pf1 20:22 Condition: stable 20:22 Discharge instructions given to patient, Instructed on discharge instructions, follow up and referral plans. Demonstrated understanding of instructions, follow-up care. 20:22 Patient left the ED. pf1 Signatures: Dispatcher [employer] EDMS Norma Harper FNP-C DIRECTOR OF VALUATION-Ckb Sydney Hernandes, KATIE WILSON ko1 Bella Currie RN RN pf1 Marcie Allen Clarissa RN RN cm10 Corrections: (The following items were deleted from the chart) 18:05 17:45 BP 102 / 62; Pulse 18bpm; Resp 18bpm; Pulse Ox 99% RA; Temp 97.7F; 74.84 kg; cm10 Height 5 ft. 4 in.; BMI: 28.3; Pain 9/10, Adult; cm10
[2022-09-02 20:44] VITALS: TEMP 97.7; O2SAT 99
[2022-09-02 20:46] VITALS: BP 111/69
== END 2022-09-02 20:22 | disposition home or self-care (01) ==
LOC: ER 17:35
DX: S82.61XA Displaced fracture of lateral malleolus of right fibula, initial encounter for closed fracture (principal); Z88.0 Allergy status to penicillin; Z88.5 Allergy status to narcotic agent
CPT/HCPCS: 73590; 73610; 99284; Q0162

== ENCOUNTER 2023-06-22 17:17 | Emergency (ER) | payer OTHER ==
[2023-06-22 18:40] LABS: Absolute Basophils 0.1 K/uL (0-0.5); Absolute Eosinophils 0.1 K/uL (0-0.5); Absolute Lymphocytes (CBC) 2.5 K/uL (0.7-4.9); Absolute Monocytes 0.9 K/uL (0.1-1.3); Absolute Neutrophil 9.7 K/uL (1.8-8.0); Basophils % 0.5 % (0-1.3); Hematocrit 39.4 % (36.0-45.0); Hemoglobin 13.7 g/dL (12.0-15.0); Lymphocytes % 19.1 % (15.3-44.8); MCH 28.9 pg (27.0-35.0); MCHC 34.9 g/dL (32.0-36.0); MCV 82.8 fL (80-100); MPV 6.9 fL (7.6-11.3); Monocytes % 6.6 % (3.3-12.3); Neutrophils % 72.8 % (41.7-73.7); Nucleated Red Blood Cells % 0.1 % (0-0); Platelets 216 thou/uL (152-406); RBC Red Blood Cell Count 4.75 M/uL (3.86-4.86); Red Cell Distribution Width 14.2 % (12.1-15.2)
--- NOTE | 2023-06-22 18:43 | RAD REPORT ---
EXAM DESCRIPTION: CT - Head Brain Wo Cont - 06/22/2023 6:27 pm CLINICAL HISTORY: Alteration of awareness/confusion. Fall with head injury COMPARISON: 2016 TECHNIQUE: Computed axial tomography of the head was obtained. IV contrast was not requested. All CT scans are performed using dose optimization technique as appropriate and may include automated exposure control or mA/KV adjustment according to patient size. FINDINGS: An intracranial bleed is not seen The ventricles are normal in caliber No extra-axial fluid collection is noted. No significant hypodensity within the brain is noted Fluid within the sinuses/ mastoids is not seen. IMPRESSION: No acute intracranial abnormality is seen If patient's symptoms persist MRI of the brain would be recommended
[2023-06-22 18:46] LABS: PT Prothrombin Time 12.5 SECONDS (9.5-12.5); Protime INR 1.14
[2023-06-22 18:50] LABS: Barbiturates NEGATIVE (NEGATIVE); Benzodiazepines NEGATIVE (NEGATIVE); Cocaine NEGATIVE (NEGATIVE); METHAMPHETAM NEGATIVE (NEGATIVE); Methadone NEGATIVE (NEGATIVE); Opiates POSITIVE (NEGATIVE); Phencyclidine NEGATIVE (NEGATIVE); THC Cannibis NEGATIVE (NEGATIVE)
[2023-06-22 18:59] LABS: Albumin 4.5 g/dL (3.4-5.0); Albumin/Globulin Ratio 1.1 (1.1-1.8); Anion Gap 11.9 mEq/L (5.0-15.0); Bilirubin Direct 0.1 mg/dL (0-0.2); Bilirubin Indirect, Calculated 0.3 mg/dL (0.2-0.8); Bilirubin Total 0.4 mg/dL (0.2-1.0); Potassium 2.9 mEq/L (3.5-5.1); Protein, Total 8.5 g/dL (6.4-8.2)
[2023-06-22] MEDS ORDERED: NA CHLORIDE 0.9% 1,000 ML ONE (20:32)
[2023-06-22] MEDS ORDERED: POTASSIUM 25 MEQ EFFERV TAB ONE (20:32)
--- NOTE | 2023-06-22 20:54 | ER ---
Nurse's Notes [facility] Name: Genet Cruz Age: 62 yrs Sex: Female : 1960 Arrival Date: 06/22/2023 Time: 17:17 Bed 12 Private MD: Godwin James S Diagnosis: opioid overuse Presentation: 06/21 17:43 Chief complaint: Patient's son or daughter states: Unwitnessed fall today, has been ph confused this afternoon, takes hydrocodone, son concerned that she may have taken too much medication, pt states that she remembers falling this morning after becoming dizzy, oriented to person, time and place in triage but appears drowsy. Coronavirus screen: Vaccine status: Patient reports being unvaccinated. Ebola Screen: No symptoms or risks identified at this time. Initial Sepsis Screen: Does the patient meet any 2 criteria? No. Patient's initial sepsis screen is negative. Does the patient have a suspected source of infection? No. Patient's initial sepsis screen is negative. Risk Assessment: Do you want to hurt yourself or someone else? Patient reports no desire to harm self or others. Onset of symptoms was June 22, 2023. 17:43 Method Of Arrival: Wheelchair ph 17:43 Acuity: IVA 3 ph 17:48 Note Pt admits to taking approx 4, 10 mg hydrocodone this morning d/t increased pain. ph Triage Assessment: 17:49 General: Appears in no apparent distress. Behavior is calm, cooperative. Pain: ph Complains of pain in back, right foot and left foot. Neuro: Level of Consciousness is awake, obeys commands, lethargic, Oriented to person, place, time, situation. Historical: - Allergies: 17:48 Codeine; ph 17:48 PENICILLINS; ph - Home Meds: 17:48 Hydrocodone-Acetaminophen Oral [Active]; ph - PMHx: 17:48 chronic pain (L) arm; Diabetes - IDDM; Hypertension; TIA; ph - Immunization history:: Adult Immunizations unknown. - Infectious Disease History:: Denies. - Social history:: Smoking status: Reported history of juuling and/or vaping. Screenin:12 [facility] ED Fall Risk Assessment (Adult) History of falling in the last 3 months, lg3 including since admission Yes- single mechanical fall (1 pt) Confusion or Disorientation No (0 pts) Intoxicated or Sedated No (0 pts) Impaired Gait No (0 pts) Mobility Assist Device Used No (0 pt) Altered Elimination No (0 pt) Score/Fall Risk Level 0 - 2 = Low Risk Oriented to surroundings, Maintained a safe environment, Educated pt \T\ family on fall prevention, incl call for assistance when getting out of bed, Assessed \T\ reinforced patient's understanding of fall precautions, Provided non-skid footwear. Abuse screen: Denies threats or abuse. Denies injuries from another. Nutritional screening: No deficits noted. Tuberculosis screening: No symptoms or risk factors identified. Assessment: 21:12 General: Appears in no apparent distress. comfortable, Behavior is calm, cooperative. lg3 Pain: Denies pain. Neuro: Culp Agitation-Sedation Scale (RASS): -1 Drowsy Level of Consciousness is awake, alert, obeys commands, Oriented to person, place, time, situation. Cardiovascular: No deficits noted. Denies chest pain, shortness of breath, Capillary refill < 3 seconds Clubbing of nail beds is absent JVD is absent Patient's skin is warm and dry. Respiratory: No deficits noted. Airway is patent Respiratory effort is even, unlabored, Respiratory pattern is regular, symmetrical, Breath sounds are clear bilaterally. GI: No deficits noted. No signs and/or symptoms were reported involving the gastrointestinal system. Abdomen is round non-distended. : No deficits noted. No signs and/or symptoms were reported regarding the genitourinary system. EENT: No deficits noted. No signs and/or symptoms were reported regarding the EENT system. Derm: No deficits noted. No signs and/or symptoms reported regarding the dermatologic system. Skin is intact, is healthy with good turgor, Skin is dry, Skin is normal, Skin temperature is warm. Musculoskeletal: No deficits noted. No signs and/or symptoms reported regarding the musculoskeletal system. Circulation, motion, and sensation intact. Range of motion: intact in all extremities. Vital Signs: 17:43 BP 131 / 92; Pulse 84; Resp 18; Temp 97.2; Pulse Ox 95% on R/A; Weight 63.5 kg; Height ph 5 ft. 4 in. ; 21:03 BP 153 / 86 LA Sitting (auto/); Pulse 78; Resp 16; kmf 17:43 Body Mass Index 24.03 (63.50 kg, 162.56 cm) ph ED Course: 17:20 Patient arrived in ED. rg4 17:20 Godwin James MD is Private Physician. rg4 17:25 Pat Rodriguez PA-C is PHCP. sb4 17:25 Jignesh Dior DO is Attending Physician. sb4 17:48 Triage completed. ph 17:49 Arm band placed on Patient placed in waiting room, Patient notified of wait time. ph 18:27 Acetaminophen Sent. bc6 18:27 Basic Metabolic Panel Sent. bc6 18:27 CBC with Diff Sent. bc6 18:27 ETOH Level Sent. bc6 18:27 Hepatic Function Sent. bc6 18:28 Head Brain Wo Cont CT In Process Unspecified. EDMS 18:28 PT-INR Sent. bc6 18:28 Ptt, Activated Sent. bc6 18:28 Salicylate Sent. bc6 18:28 Urine Drug Screen Sent. bc6 18:28 Initial lab(s) drawn, by de, sent to lab. Urine collected: clean catch specimen. bc6 Inserted saline lock: 22 gauge in right forearm, using aseptic technique. Blood collected. 18:34 EKG done, by ED staff, reviewed by Pat Rodriguez PA-C. bc6 20:19 Arti Barboza is Primary Nurse. cp4 20:53 Godwin James MD is Referral Physician. sb4 21:12 Patient has correct armband on for positive identification. Client placed on continuous lg3 cardiac and pulse oximetry monitoring. NIBP monitoring applied. Door closed. Noise minimized. Warm blanket given. 21:12 No provider procedures requiring assistance completed. IV discontinued, intact, lg3 bleeding controlled, No redness/swelling at site. Pressure dressing applied. Administered Medications: 20:38 Drug: Potassium PO Effervescent Tablet 50 mEq PO once; dissolve in 4 ounces of water or lg3 juice Route: PO; 21:15 Follow up: Response: No adverse reaction lg3 20:38 Drug: NS 0.9% IV 1000 ml IV at 1 bolus Per protocol; 1000 mL bolus Route: IV; Rate: 1 lg3 bolus; Site: right forearm; 21:15 Follow up: IV Status: Completed infusion; IV Intake: 1000ml lg3 Medication: 21:12 VIS not applicable for this client. lg3 Intake: 21:15 IV: 1000ml; Total: 1000ml. lg3 Outcome: 20:53 Discharge ordered by . elton 21:12 Discharged to home via wheelchair, with family, lg3 21:12 Condition: stable 21:12 Discharge instructions given to patient, family, Instructed on discharge instructions, follow up and referral plans. medication usage, Demonstrated understanding of instructions, follow-up care, medications, Prescriptions given X 1, 21:15 Patient left the ED. lg3 Signatures: Dispatcher [employer] EDGuera Pruitt, RN RN hugh Crump, Brandee rg4 Kimberly Pa RN RN lg3 Pat Rodriguez, PA-C PA-C [email or web address] Josephine Robledo Christina cp4 Forrester, Kelsey Maroul [facility]
--- NOTE | 2023-06-22 20:54 | EDPHYS ---
Physician Documentation [facility] Name: Genet Cruz Age: 62 yrs Sex: Female : 1960 Arrival Date: 06/22/2023 Time: 17:17 Bed 12 Private MD: Godwin James S ED Physician Jignesh Dior HPI: 06/21 17:54 This 62 yrs old Female presents to ER via Wheelchair with complaints of accidental sb4 overdose, lethargy. 17:54 Patient presents today with son with concerns of decreased mental status. Patient is sb4 prescribed [place] tens for her chronic pain. She typically takes 1 every 6 as needed. States that today she was in a lot of pain and thinks she took 4 but is not sure. Son is concerned that she fell and that she is very sleepy and "catatonic". Patient has no complaints at this time. Historical: - Allergies: 17:48 Codeine; ph 17:48 PENICILLINS; ph - Home Meds: 17:48 Hydrocodone-Acetaminophen Oral [Active]; ph - PMHx: 17:48 chronic pain (L) arm; Diabetes - IDDM; Hypertension; TIA; ph - Immunization history:: Adult Immunizations unknown. - Infectious Disease History:: Denies. - Social history:: Smoking status: Reported history of juuling and/or vaping. ROS: 18:17 Constitutional: Negative for fever, chills, and weight loss, sb4 18:17 All other systems are negative, Exam: 18:17 Head/Face: Normocephalic, atraumatic. Eyes: Extra-ocular motions intact. Periorbital sb4 areas with no swelling, redness, or edema. ENT: Mucous membranes moist. Cardiovascular: Regular rate and rhythm with a normal S1 and S2. Respiratory: Lungs have equal breath sounds bilaterally, clear to auscultation and percussion. No rales, rhonchi or wheezes noted. No increased work of breathing, no retractions or nasal flaring. Abdomen/GI: Soft, non-tender, no distension. Skin: Warm, dry with normal turgor. Normal color with no rashes, no lesions, and no evidence of cellulitis. MS/ Extremity: Pulses equal, no cyanosis. Neurovascular intact. Full, normal range of motion. Neuro: Awake and alert, GCS 15, oriented to person, place, time, and situation. Motor strength 5/5 in all extremities. Sensory grossly intact. 18:17 Constitutional: The patient appears alert, awake, Sleepy Vital Signs: 17:43 BP 131 / 92; Pulse 84; Resp 18; Temp 97.2; Pulse Ox 95% on R/A; Weight 63.5 kg; Height ph 5 ft. 4 in. ; 21:03 BP 153 / 86 LA Sitting (auto/); Pulse 78; Resp 16; kmf 17:43 Body Mass Index 24.03 (63.50 kg, 162.56 cm) ph MDM: 17:44 Patient medically screened. sb4 20:52 Data reviewed: vital signs, nurses notes, lab test result(s), EKG, radiologic studies, sb4 I have discussed the patient's presentation/case with the attending Emergency Department Physician; and as a result, I will discharge patient. Consideration of Admission/Observation Escalation of care including admission/observation considered. Counseling: I had a detailed discussion with the patient and/or guardian regarding the historical points, exam findings, and any diagnostic results supporting the discharge/admit diagnosis, lab results, radiology results, to return to the emergency department if symptoms worsen or persist or if there are any questions or concerns that arise at home. 06/21 17:52 Order name: Acetaminophen; Complete Time: 19:00 sb4 06/21 17:52 Order name: Basic Metabolic Panel; Complete Time: 19:00 sb4 06/21 17:52 Order name: CBC with Diff; Complete Time: 18:43 sb4 06/21 17:52 Order name: ETOH Level; Complete Time: 19:08 sb4 06/21 17:52 Order name: Hepatic Function; Complete Time: 19:00 sb4 06/21 17:52 Order name: PT-INR; Complete Time: 18:48 sb4 06/21 17:52 Order name: Ptt, Activated; Complete Time: 18:48 sb4 06/21 17:52 Order name: Salicylate; Complete Time: 19:04 sb4 06/21 17:52 Order name: Urine Drug Screen; Complete Time: 18:56 sb4 06/21 17:53 Order name: Head Brain Wo Cont CT; Complete Time: 18:48 sb4 06/21 17:52 Order name: EKG - Nurse/Tech; Complete Time: 18:34 sb4 06/21 17:52 Order name: IV Saline Lock; Complete Time: 18:27 sb4 06/21 17:52 Order name: Labs collected and sent; Complete Time: 18:27 sb4 06/21 17:52 Order name: Suicide Screening (Emely); Complete Time: 20:26 sb4 EC:42 Rate is 78 beats/min. Rhythm is regular, Normal Sinus Rhythm. [place] interval is normal at sb4 176 msec. QRS interval is normal at 66 msec. QT interval is normal at 404 msec. No Q waves. T waves are Normal. No ST changes noted. Clinical impression: Normal ECG. Interpreted by me. Reviewed by me. Administered Medications: 20:38 Drug: Potassium PO Effervescent Tablet 50 mEq PO once; dissolve in 4 ounces of water or lg3 juice Route: PO; 21:15 Follow up: Response: No adverse reaction lg3 20:38 Drug: NS 0.9% IV 1000 ml IV at 1 bolus Per protocol; 1000 mL bolus Route: IV; Rate: 1 lg3 bolus; Site: right forearm; 21:15 Follow up: IV Status: Completed infusion; IV Intake: 1000ml lg3 Disposition: 19:03 I was immediately available on-site in the Emergency Department for consultation in the ms3 care of the patient. Disposition Summary: 06/22/23 20:53 Discharge Ordered Notes: Location: Home sb4 Problem: new sb4 Symptoms: have improved sb4 Condition: Stable sb4 Diagnosis - opioid overuse sb4 Followup: sb4 - With: Godwin James MD - When: As needed - Reason: Recheck today's complaints, Re-evaluation by your physician Discharge Instructions: - Discharge Summary Sheet sb4 - Warning Signs of Opioid Misuse sb4 Forms: - Thank You Letter sb4 - Prescription Opioid Use sb4 - Patient Portal Instructions sb4 - Leadership Thank You Letter sb4 Prescriptions: - Narcan 4 mg/actuation Nasal spray, non-aerosol - spray 1 spray INTRANASAL route once as needed for opioid overdose; 1 sb4 Applicator; Refills: 0, Product Selection Permitted Signatures: Dispatcher [employer] Guera Choi RN RN Kimberly Pa RN RN lg3 Jignesh Dior DO DO ms3 Pat Rodriguez PA-C PA-C sb4 Corrections: (The following items were deleted from the chart) 17:53 17:53 ACETAMINOPHEN+C.LAB.BRZ ordered. EDMS EDMS 17:53 17:53 BASIC METABOLIC PANEL+C.LAB.BRZ ordered. EDMS EDMS 17:53 17:53 CBC+H.LAB.BRZ ordered. EDMS EDMS 17:53 17:53 ETHANOL+C.LAB.BRZ ordered. EDMS EDMS 17:53 17:53 HEPATIC FUNCTION+C.LAB.BRZ ordered. EDMS EDMS 17:53 17:53 PROTIME (+INR)+COAG.LAB.BRZ ordered. EDMS EDMS 17:53 17:53 PTT, ACTIVATED+COAG.LAB.BRZ ordered. EDMS EDMS 17:53 17:53 SALICYLATE+C.LAB.BRZ ordered. EDMS EDMS 17:53 17:53 URINE DRUG SCREEN+UC.LAB.BRZ ordered. EDMS EDMS 18:17 17:54 Patient presents today with son with concerns of decreased mental status. Patient sb4 is prescribed [place] tens for her chronic pain. She typically takes 1 every 6 as needed. States that today she was in a lot of pain and thinks she took 4 but is not sure. Son is concerned that she fell. sb4
[2023-06-23 05:19] VITALS: BP 153/86; TEMP 97.2; O2SAT 95
--- NOTE | 2023-06-23 13:29 | EKG ---
Test Date: 2023-06-22 Test Time: 18:33:10 [facility] Clerk: KIRIT MEASUREMENT RESULTS: Intervals: Rate: 77 OH: 190 QRSD: 80 QT: 440 QTc: 497 [place]: P: 70 [place]: 190 QRS: 31 T: 50 INTERPRETIVE STATEMENTS: Normal sinus rhythm Low voltage QRS Borderline ECG Compared to ECG 06/22/2023 18:32:50 Low QRS voltage now present Electronically Signed On 06-23-23 13:27:43 CDT by Milton Jacques
--- NOTE | 2023-06-23 13:29 | EKG ---
Test Date: 2023-06-22 Test Time: 18:32:50 Non Categorical Preschool Teacher: KIRIT MEASUREMENT RESULTS: Intervals: Rate: 78 [place]: 176 QRSD: 66 QT: 404 QTc: 460 [place]: P: 51 KS: 176 QRS: 35 T: 53 INTERPRETIVE STATEMENTS: Normal sinus rhythm Normal ECG Compared to ECG 01/23/2021 10:10:26 No significant changes Electronically Signed On 06-23-23 13:27:44 CDT by Milton Jacques
== END 2023-06-22 21:15 | disposition home or self-care (01) ==
LOC: ER 17:17
DX: R53.83 Other fatigue (principal); F11.10 Opioid abuse, uncomplicated; Z88.0 Allergy status to penicillin; Z88.5 Allergy status to narcotic agent
CPT/HCPCS: 93005 ×2; 85025; 80048; 36415; 85610; 80076; 85730; 80307; 70450; 96360; 99284; 80143; 80179; 82077; J7030

== ENCOUNTER 2024-03-09 19:09 | Emergency (ER) | payer OTHER ==
--- NOTE | 2024-03-09 20:33 | RAD REPORT ---
EXAMINATION: ONE VIEW CHEST XR CLINICAL INDICATION: Female, 63 years old.,Cough;Congestion TECHNIQUE: Frontal chest projection is submitted. Examination is limited by patient positioning and t echnique. COMPARISON: 01/22/2021 FINDINGS: The lungs are well inflated and clear. No pneumothorax or sizable effusion. The heart is normal in s ize. Mediastinal contours are unremarkable. IMPRESSION: No acute intrathoracic abnormalities.
--- NOTE | 2024-03-09 20:44 | EDPHYS ---
Physician Documentation [facility] Name: Genet Cruz Age: 63 yrs Sex: Female : 1960 Arrival Date: 03/09/2024 Time: 19:09 Bed 2 Private MD: ED Physician Arlene Gustafson HPI: 03/09 19:18 This 63 yrs old Female presents to ER via Unassigned with complaints of Flu Symptoms. kb 19:18 Pt is a 63 year old female who presents for headache, fever, chills, bodyaches, cough . kb States she tested positive for flu A 8 days ago with a home test. States symptoms seem to be getting worse. . Historical: - Allergies: 19:28 Codeine; kd3 19:28 PENICILLINS; kd3 - PMHx: 19:28 chronic pain (L) arm; Diabetes - IDDM; Hypertension; TIA; kd3 - Immunization history:: Adult Immunizations up to date. - Infectious Disease History:: Denies. - Social history:: Smoking status: Patient/guardian denies using tobacco, but has a distant history of tobacco abuse. ROS: 20:41 Constitutional: As per HPI kb Exam: 20:41 Constitutional: This is a well developed, well nourished patient who is awake, alert, kb and in no acute distress. Head/Face: Normocephalic, atraumatic. ENT: Moist Mucous membranes Cardiovascular: Regular rate Respiratory: Respirations even and unlabored. No increased work of breathing. Talking in full sentences Abdomen/GI: Soft, non-tender. No distention Skin: Warm, dry with normal turgor. Normal color. MS/ Extremity: Pulses equal, no cyanosis. Neurovascular intact. Full, normal range of motion. Neuro: Awake and alert, GCS 15, oriented to person, place, time, and situation. Vital Signs: 19:25 BP 101 / 65; Pulse 95; Resp 18; Temp 98.5(O); Pulse Ox 94% on R/A; Weight 62.6 kg; kd3 Height 5 ft. 4 in. ; Pain 9/10; 20:19 BP 112 / 71; Pulse 83; Resp 16; Pulse Ox 96% on R/A; dd2 20:55 BP 115 / 68; Pulse 84; Resp 16; Temp 98.3(O); Pulse Ox 97% on R/A; dd2 19:25 Body Mass Index 23.69 (62.60 kg, 162.56 cm) kd3 19:25 Pain Scale: Adult kd3 MDM: 19:13 Medical Screening Exam initiated kb 20:42 Differential diagnosis: pneumonia, bronchitis, sinusitis. Data reviewed: vital signs, kb nurses notes. Counseling: I had a detailed discussion with the patient and/or guardian regarding the historical points, exam findings, and any diagnostic results supporting the discharge/admit diagnosis, radiology results, the need for outpatient follow up, a family practitioner, to return to the emergency department if symptoms worsen or persist or if there are any questions or concerns that arise at home. 20:42 Test considered but Not performed: Labs: cbc, cmp considered but pt is nontoxic in kb appearance, resp even and unlabored, lungs clear bilaterally. 03/09 19:37 Order name: Chest Single View XRAY; Complete Time: 20:33 kb Administered Medications: 20:54 Drug: AZITHromycin PO 500 mg PO once Route: PO; dd2 20:57 Follow up: Response: Medication administered at discharge. dd2 Disposition Summary: 03/09/24 20:43 Discharge Ordered Notes: Location: Home kb Condition: Stable kb Diagnosis - Fever, unspecified kb - Cough kb Followup: kb - With: Emergency Department - When: As needed - Reason: Worsening of condition Followup: kb - With: Private Physician - When: 2 - 3 days - Reason: Recheck today's complaints, Continuance of care, Re-evaluation by your physician Discharge Instructions: - Discharge Summary Sheet kb - Cough, Adult, [id number] kb - Fever, Adult, [id number] kb Forms: - Medication Reconciliation Form kb - Antibiotic Education kb - Prescription Opioid Use kb - Patient Portal Instructions kb - Leadership Thank You Letter kb Prescriptions: - Zithromax 500 mg Oral Tablet - take 1 tablet ORAL route once daily for 5 days; 5 tablet; Refills: 0, Product kb Selection Permitted Signatures: Dispatcher [employer] Norma Bain, Shawnee De Guzman RN RN kd3 GENET PEARL RN RN dd2
--- NOTE | 2024-03-09 20:44 | ER ---
Nurse's Notes [facility] Name: Genet Cruz Age: 63 yrs Sex: Female : 1960 Arrival Date: 03/09/2024 Time: 19:09 Bed 2 Private MD: Diagnosis: Fever, unspecified;Cough Presentation: 03/09 19:25 Chief complaint: Patient states: My mother and i tested positive for the flu over a kd3 week ago and we started to get better, but now we have both started to get worse. I have a runny nose, cough that is now non productive and general malaise. Coronavirus screen: Vaccine status: Patient reports being unvaccinated. Ebola Screen: No symptoms or risks identified at this time. Initial Sepsis Screen: Does the patient meet any 2 criteria? No. Patient's initial sepsis screen is negative. Does the patient have a suspected source of infection? No. Patient's initial sepsis screen is negative. Risk Assessment: Do you want to hurt yourself or someone else? Patient reports no desire to harm self or others. Onset of symptoms was March 02, 2024. 19:25 Method Of Arrival: Ambulatory kd3 19:25 Acuity: IVA 4 kd3 Triage Assessment: 19:28 General: Appears uncomfortable, Behavior is calm, cooperative. Pain: Complains of pain kd3 in posterior chest, back, right arm, left arm, right leg and left leg. Neuro: Level of Consciousness is awake, alert, obeys commands. Historical: - Allergies: 19:28 Codeine; kd3 19:28 PENICILLINS; kd3 - PMHx: 19:28 chronic pain (L) arm; Diabetes - IDDM; Hypertension; TIA; kd3 - Immunization history:: Adult Immunizations up to date. - Infectious Disease History:: Denies. - Social history:: Smoking status: Patient/guardian denies using tobacco, but has a distant history of tobacco abuse. Screenin:55 [facility] ED Fall Risk Assessment (Adult) History of falling in the last 3 months, tm6 including since admission No falls in past 3 months (0 pts) Confusion or Disorientation No (0 pts) Intoxicated or Sedated No (0 pts) Impaired Gait No (0 pts) Mobility Assist Device Used No (0 pt) Altered Elimination No (0 pt) Score/Fall Risk Level 0 - 2 = Low Risk Oriented to surroundings, Maintained a safe environment, Educated pt \T\ family on fall prevention, incl call for assistance when getting out of bed. Abuse screen: Denies threats or abuse. Denies injuries from another. Nutritional screening: No deficits noted. Tuberculosis screening: No symptoms or risk factors identified. Assessment: 19:55 General: Appears in no apparent distress. Pain: Complains of pain in body aches. Neuro: tm6 Level of Consciousness is awake, alert, obeys commands, Oriented to person, place, time, situation. Cardiovascular: Patient's skin is warm and dry. Respiratory: Airway is patent Respiratory effort is even, unlabored, Respiratory pattern is regular, symmetrical. GI: No signs and/or symptoms were reported involving the gastrointestinal system. Abdomen is flat, non-distended. : No signs and/or symptoms were reported regarding the genitourinary system. EENT: No signs and/or symptoms were reported regarding the EENT system. Derm: No signs and/or symptoms reported regarding the dermatologic system. Musculoskeletal: Reports body aches and general weakness. Vital Signs: 19:25 BP 101 / 65; Pulse 95; Resp 18; Temp 98.5(O); Pulse Ox 94% on R/A; Weight 62.6 kg; kd3 Height 5 ft. 4 in. ; Pain 9/10; 20:19 BP 112 / 71; Pulse 83; Resp 16; Pulse Ox 96% on R/A; dd2 20:55 BP 115 / 68; Pulse 84; Resp 16; Temp 98.3(O); Pulse Ox 97% on R/A; dd2 19:25 Body Mass Index 23.69 (62.60 kg, 162.56 cm) kd3 19:25 Pain Scale: Adult kd3 ED Course: 19:13 Patient arrived in ED. im 19:13 [facility] kb 19:13 Arlene Gustafson MD is Attending Physician. kb 19:28 Triage completed. kd3 19:28 Arm band placed on right wrist. kd3 19:41 GENET PEARL, KATIE is Primary Nurse. dd2 19:55 Patient has correct armband on for positive identification. Bed in low position. Call tm6 light in reach. Side rails up X 1. Provided Education on: use of call felix. Client placed on continuous cardiac and pulse oximetry monitoring. NIBP monitoring applied. Pulse ox on. NIBP on. Door closed. Noise minimized. Warm blanket given. Pillow given. 20:28 Chest Single View XRAY In Process Unspecified. EDMS 20:40 No provider procedures requiring assistance completed. Patient maintains SpO2 dd2 saturation greater than 95% on room air. 20:55 IV discontinued, intact, bleeding controlled, No redness/swelling at site. Pressure dd2 dressing applied. Administered Medications: 20:54 Drug: AZITHromycin PO 500 mg PO once Route: PO; dd2 20:57 Follow up: Response: Medication administered at discharge. dd2 Medication: 19:55 VIS not applicable for this client. tm6 Outcome: 20:43 Discharge ordered by . kb 20:55 Discharged to home ambulatory, dd2 20:55 Condition: stable 20:55 Discharge instructions given to patient, Instructed on discharge instructions, follow up and referral plans. medication usage, Demonstrated understanding of instructions, follow-up care, medications, Prescriptions given X 1, 20:57 Patient left the ED. dd2 Signatures: Dispatcher [employer] EDMS Norma Harper, UMBRELLA MENDER-C UMBRELLA MENDER-CkShawnee Moreno, RN RN kd3 Marcie Allen Tawney RN RN tm6 GENET PEARL RN RN dd2
[2024-03-09] MEDS ORDERED: AZITHROMYCIN 250 MG TAB ONE (20:53)
[2024-03-09 21:08] VITALS: BP 115/68; TEMP 98.3; O2SAT 97
== END 2024-03-09 20:57 | disposition home or self-care (01) ==
LOC: ER 19:09
DX: R50.9 Fever, unspecified (principal); R05.9 Cough, unspecified; E11.9 Type 2 diabetes mellitus without complications; I10 Essential (primary) hypertension; G89.29 Other chronic pain; Z86.73 Personal history of transient ischemic attack (TIA), and cerebral infarction without residual deficits; Z88.0 Allergy status to penicillin; Z88.5 Allergy status to narcotic agent; Z79.4 Long term (current) use of insulin
CPT/HCPCS: 71045; 99284

== ENCOUNTER 2024-03-10 17:07 | Emergency (ER) | payer OTHER ==
[2024-03-10] MEDS ORDERED: MORPHINE 4 MG/ML SYR ONE (17:25)
[2024-03-10] MEDS ORDERED: ONDANSETRON 4 MG/2 ML VIAL ONE (17:25)
--- NOTE | 2024-03-10 17:25 | EDPHYS ---
Physician Documentation [facility] Name: Genet Cruz Age: 63 yrs Sex: Female : 1960 Arrival Date: 03/10/2024 Time: 17:07 Bed 13 Private MD: ED Physician Gisella Person HPI: 03/10 17:19 This 63 yrs old Female presents to ER via Unassigned with complaints of Back Injury. sp3 17:19 63-year-old female with history of chronic back pain and recent diagnosis of flu sp3 presents to the ED with continued left hip and low back pain which is chronic in nature. She was seen at [place] ER last night. She currently takes [place] p.o. as needed for pain control. She has been on [place] regimen multiple times including 1 episode of accidental overdose seen here. She denies any new injury, fall, trauma of any sort, chest pain, back pain, shortness of breath, abdominal pain, syncope, bleeding or any other signs or symptoms on ROS at this time.. Historical: - Allergies: 17:36 Codeine; ko1 17:36 PENICILLINS; ko1 - Home Meds: 17:36 Hydrocodone-Acetaminophen Oral [Active]; ko1 - PMHx: 17:36 chronic pain (L) arm; Diabetes - IDDM; Hypertension; TIA; PTSD (TIA); ko1 - Immunization history:: Adult Immunizations unknown. - Infectious Disease History:: Denies. - Social history:: Smoking status: Patient/guardian denies using tobacco, but has a distant history of tobacco abuse. ROS: 17:20 Constitutional: Negative for fever, chills, and weight loss, Eyes: Negative for injury, sp3 pain, redness, and discharge, ENT: Negative for injury, pain, and discharge, Neck: Negative for injury, pain, and swelling, Cardiovascular: Negative for chest pain, palpitations, and edema, Respiratory: Negative for shortness of breath, cough, wheezing, and pleuritic chest pain, Abdomen/GI: Negative for abdominal pain, nausea, vomiting, diarrhea, and constipation, : Negative for injury, bleeding, discharge, and swelling, Skin: Negative for injury, rash, and discoloration, Neuro: Negative for headache, weakness, numbness, tingling, and seizure, Psych: Negative for depression, anxiety, suicide ideation, homicidal ideation, and hallucinations, Allergy/Immunology: Negative for hives, rash, and allergies, Endocrine: Negative for neck swelling, polydipsia, polyuria, polyphagia, and marked weight changes, Hematologic/Lymphatic: Negative for swollen nodes, abnormal bleeding, and unusual bruising, 17:20 All other systems are negative, Exam: 17:20 Constitutional: This is a well developed, well nourished patient who is awake, alert, sp3 and in no acute distress. Head/Face: Normocephalic, atraumatic. Eyes: Pupils equal round and reactive to light, extra-ocular motions intact. Lids and lashes normal. Conjunctiva and sclera are non-icteric and not injected. Cornea within normal limits. Periorbital areas with no swelling, redness, or edema. Neck: Trachea midline, no thyromegaly or masses palpated, and no cervical lymphadenopathy. Supple, full range of motion without nuchal rigidity, or vertebral point tenderness. No Meningismus. Chest/axilla: Normal chest wall appearance and motion. Nontender with no deformity. No lesions are appreciated. Cardiovascular: Regular rate and rhythm with a normal S1 and S2. No gallops, murmurs, or rubs. Normal PMI, no JVD. No pulse deficits. Respiratory: Lungs have equal breath sounds bilaterally, clear to auscultation and percussion. No rales, rhonchi or wheezes noted. No increased work of breathing, no retractions or nasal flaring. Abdomen/GI: Soft, non-tender, with normal bowel sounds. No distension or tympany. No guarding or rebound. No evidence of tenderness throughout. Skin: Warm, dry with normal turgor. Normal color with no rashes, no lesions, and no evidence of cellulitis. Neuro: Awake and alert, GCS 15, oriented to person, place, time, and situation. Cranial nerves II-XII grossly intact. Motor strength 5/5 in all extremities. Sensory grossly intact. Cerebellar exam normal. Normal gait. Psych: Awake, alert, with orientation to person, place and time. Behavior, mood, and affect are within normal limits. 17:20 Back: No bruising or other abnormality noted. Patient has chronic pain on movement. Hip is clinically stable, not fractured. Distal neurovascular exam is normal., Vital Signs: 17:15 BP 134 / 88; Pulse 92; Resp 18; Temp 97.7; Pulse Ox 99% ; Pain 10/10; ko1 17:47 BP 128 / 76; Pulse 88; Resp 15; Pulse Ox 97% on R/A; ko1 17:15 Pain Scale: Adult ko1 MDM: 17:16 Medical Screening Exam initiated sp3 17:23 Data reviewed: vital signs, nurses notes, EMS record, old medical records. ED course: sp3 63-year-old female with chronic pain. I do not believe patient has an acute issue and she was evaluated fully last night at a different emergency department. We will give 1 dose of pain medicine and discharge patient home safely. No further workup indicated in the ED. Vital signs are normal.. Administered Medications: 17:26 Drug: morphine IVP or IV 4 mg IVP once over 4 mins Route: IVP; Infused Over: 4 mins; ko1 Site: right forearm; 17:41 Follow up: Response: No adverse reaction ko1 17:26 Drug: Ondansetron IVP 4 mg IVP once; over 2 minutes Route: IVP; Site: right forearm; ko1 17:41 Follow up: Response: No adverse reaction ko1 Disposition Summary: 03/10/24 17:24 Discharge Ordered Notes: Location: Home sp3 Condition: Stable sp3 Diagnosis - Chronic pain sp3 Followup: sp3 - With: Private Physician - When: Upon discharge from the Emergency Department - Reason: Continuance of care Discharge Instructions: - Discharge Summary Sheet sp3 - Chronic Pain, Adult sp3 Forms: - Medication Reconciliation Form sp3 - Antibiotic Education sp3 - Prescription Opioid Use sp3 - Patient Portal Instructions sp3 - Leadership Thank You Letter sp3 Signatures: Gisella Person MD MD sp3 Sydney Hernandes, RN RN ko1
--- NOTE | 2024-03-10 17:51 | ER ---
Nurse's Notes [facility] Name: Genet Cruz Age: 63 yrs Sex: Female : 1960 Arrival Date: 03/10/2024 Time: 17:07 Bed 13 Private MD: Diagnosis: Chronic pain Presentation: 03/10 17:15 Chief complaint: EMS states: called for low back and left hip pain from a fall a few ko1 days ago, pt was seen and xrays were negative, is scheduled for mri on the . Coronavirus screen: At this time, the client does not indicate any symptoms associated with coronavirus-19. Ebola Screen: No symptoms or risks identified at this time. Initial Sepsis Screen: Does the patient meet any 2 criteria? No. Patient's initial sepsis screen is negative. Does the patient have a suspected source of infection? No. Patient's initial sepsis screen is negative. Risk Assessment: Do you want to hurt yourself or someone else? Patient reports no desire to harm self or others. Onset of symptoms is unknown. Care prior to arrival: None. Medication(s) given: fentanyl 50 mcg IV x 2 doses IV initiated. 20 GA, in the right forearm, Glucose check: 118. 17:15 Method Of Arrival: EMS: [facility] ko1 17:15 Acuity: IVA 4 ko1 Triage Assessment: 17:36 General: Appears in no apparent distress. Behavior is calm, cooperative, appropriate ko1 for age. Pain: Complains of pain in back. EENT: No deficits noted. Neuro: No deficits noted. Cardiovascular: No deficits noted. Respiratory: No deficits noted. GI: No deficits noted. : No deficits noted. Derm: No deficits noted. Musculoskeletal: Reports pain in back. Historical: - Allergies: 17:36 Codeine; ko1 17:36 PENICILLINS; ko1 - Home Meds: 17:36 Hydrocodone-Acetaminophen Oral [Active]; ko1 - PMHx: 17:36 chronic pain (L) arm; Diabetes - IDDM; Hypertension; TIA; PTSD (TIA); ko1 - Immunization history:: Adult Immunizations unknown. - Infectious Disease History:: Denies. - Social history:: Smoking status: Patient/guardian denies using tobacco, but has a distant history of tobacco abuse. Screenin:39 [facility] ED Fall Risk Assessment (Adult) History of falling in the last 3 months, ko1 including since admission No falls in past 3 months (0 pts) Confusion or Disorientation No (0 pts) Intoxicated or Sedated No (0 pts) Impaired Gait Yes (1 pt) Mobility Assist Device Used Yes (1 pt) Altered Elimination Yes (1 pt) Score/Fall Risk Level 0 - 2 = Low Risk Oriented to surroundings, Maintained a safe environment, Educated pt \T\ family on fall prevention, incl call for assistance when getting out of bed, Assessed \T\ reinforced patient's understanding of fall precautions, Hourly rounding (assess needs \T\ fall precautionary measures) done. Abuse screen: Denies threats or abuse. Denies injuries from another. Nutritional screening: No deficits noted. Tuberculosis screening: No symptoms or risk factors identified. Assessment: 17:39 Reassessment: see triage note. ko1 Vital Signs: 17:15 BP 134 / 88; Pulse 92; Resp 18; Temp 97.7; Pulse Ox 99% ; Pain 10/10; ko1 17:47 BP 128 / 76; Pulse 88; Resp 15; Pulse Ox 97% on R/A; ko1 17:15 Pain Scale: Adult ko1 ED Course: 17:12 Patient arrived in ED. ko1 17:16 Gisella Person MD is Attending Physician. sp3 17:18 Sydney Hernandes, KATIE is Primary Nurse. ko1 17:36 Triage completed. ko1 17:36 Arm band placed on right wrist. Patient placed in an exam room, on a stretcher, on ko1 pulse oximetry, Patient notified of wait time. 17:39 Patient has correct armband on for positive identification. Allergy band placed. Bed in ko1 low position. Call light in reach. Side rails up X2. Provided Education on: meds. Pulse ox on. NIBP on. Door closed. Noise minimized. Lights dimmed. Warm blanket given. Pillow given. 17:39 No provider procedures requiring assistance completed. ko1 17:47 IV discontinued, intact, bleeding controlled, No redness/swelling at site. Pressure ko1 dressing applied. Administered Medications: 17:26 Drug: morphine IVP or IV 4 mg IVP once over 4 mins Route: IVP; Infused Over: 4 mins; ko1 Site: right forearm; 17:41 Follow up: Response: No adverse reaction ko1 17:26 Drug: Ondansetron IVP 4 mg IVP once; over 2 minutes Route: IVP; Site: right forearm; ko1 17:41 Follow up: Response: No adverse reaction ko1 Medication: 17:39 VIS not applicable for this client. ko1 Outcome: 17:24 Discharge ordered by . sp3 17:47 Discharged to home ambulatory, with family, ko1 17:47 Condition: stable 17:47 Discharge instructions given to patient, Instructed on discharge instructions, follow up and referral plans. Demonstrated understanding of instructions, follow-up care, 17:50 Patient left the ED. ko1 Signatures: Gisella Person MD MD sp3 Sydney Hernandes, RN RN ko1
[2024-03-10 17:57] VITALS: TEMP 97.7
[2024-03-10 17:58] VITALS: BP 128/76; O2SAT 97
== END 2024-03-10 17:50 | disposition home or self-care (01) ==
LOC: ER 17:07
DX: G89.4 Chronic pain syndrome (principal); M25.552 Pain in left hip; M54.50 Low back pain, unspecified; I10 Essential (primary) hypertension; E11.9 Type 2 diabetes mellitus without complications; F43.10 Post-traumatic stress disorder, unspecified; Z79.4 Long term (current) use of insulin; Z86.73 Personal history of transient ischemic attack (TIA), and cerebral infarction without residual deficits; Z88.0 Allergy status to penicillin; Z88.5 Allergy status to narcotic agent
CPT/HCPCS: 96375; 96374; 99284; J2405

== ENCOUNTER 2024-03-14 13:01 | Emergency (ER) | payer OTHER ==
--- NOTE | 2024-03-14 14:20 | EDPHYS ---
Physician Documentation [facility] Name: Genet Cruz Age: 63 yrs Sex: Female : 1960 Arrival Date: 03/14/2024 Time: 13:01 Bed Treatment Private MD: ED Physician Garrick Schmidt HPI: 03/14 14:21 This 63 yrs old Female presents to ER via Wheelchair with complaints of Back Pain, Leg sb4 Pain. 14:22 patient with chronic back pain, typically takes norco 10 4 times a day, states that she sb4 re injured her back a few weeks ago so her pain has been worse. she recently changed pain management doctors and will not be able to have her medication refilled until tomorrow. she is requesting pain relief at this time. she has not taken any other medications for the pain. Historical: - Allergies: 14:08 Codeine; hb 14:08 PENICILLINS; hb - PMHx: 14:08 chronic pain (L) arm; Diabetes - IDDM; Hypertension; PTSD (TIA); TIA; hb - Immunization history:: Adult Immunizations up to date. - Infectious Disease History:: Denies. - Social history:: Smoking status: Patient denies any tobacco usage or history of. ROS: 14:24 Constitutional: Negative for fever, chills, and weight loss, sb4 14:24 Back: Positive for pain at rest, radiated pain, 14:24 All other systems are negative, Exam: 14:25 Head/Face: Normocephalic, atraumatic. Eyes: Extra-ocular motions intact. Periorbital sb4 areas with no swelling, redness, or edema. ENT: Mucous membranes moist. Respiratory: No increased work of breathing, no retractions or nasal flaring. Skin: Warm, dry with normal turgor. Normal color with no rashes, no lesions, and no evidence of cellulitis. 14:25 Constitutional: The patient appears alert, awake, uncomfortable, 14:25 Neuro: Exam negative for acute changes, focal neuro deficits, motor deficits, sensory deficits, altered mental status, confusion, gait abnormality, Vital Signs: 14:06 BP 133 / 102; Pulse 96; Resp 20; Temp 98; Pulse Ox 100% on R/A; Weight 62.6 kg; Height hb 5 ft. 4 in. ; Pain 10/10; 14:35 BP 127 / 91; Pulse 80; Resp 17; Pulse Ox 99% on R/A; rs5 14:06 Body Mass Index 23.69 (62.60 kg, 162.56 cm) hb 14:06 Pain Scale: Adult hb MDM: 13:43 Medical Screening Exam initiated sb4 14:25 Data reviewed: vital signs, nurses notes, and as a result, I will discharge patient. sb4 Counseling: I had a detailed discussion with the patient and/or guardian regarding the historical points, exam findings, and any diagnostic results supporting the discharge/admit diagnosis, the need for outpatient follow up, a friction paint machine tender, to return to the emergency department if symptoms worsen or persist or if there are any questions or concerns that arise at home. Special discussion: I discussed with the patient their frequent requests for pain medications. Instructions have been given, that in the best interests of the patient, further pain Rx's must come from the patient's PCP or a friction paint machine tender. ED course: will provide patient with 1x dose of her home norco and give prescriptions for nonnarcotics to help with her pain. 14:27 ED course: CAREER LAW CLERK checked, shows 28 day supply of norco 10 was written on 02/23 and filled sb4 on 12/. Administered Medications: 14:20 Drug: [place] PO 10 mg-325 mg 1 tabs PO once Route: PO; rs5 14:55 Follow up: Response: No adverse reaction; Pain is decreased rs5 14:20 Drug: Lidoderm Topical Patch 5 % (700 mg/patch) 1 patches Topical once; leave on for 12 rs5 hours; cover most painful area; may cut into smaller pieces {Note: lower back.} Route: Topical; Site: affected area; 14:50 Follow up: Response: No adverse reaction; Pain is decreased rs5 14:20 Drug: Ketorolac IM 30 mg IM once Route: IM; Site: left deltoid; rs5 14:40 Follow up: Response: No adverse reaction; Pain is decreased rs5 14:20 Drug: Methocarbamol PO 500 mg PO once Route: PO; rs5 14:50 Follow up: Response: No adverse reaction; Pain is decreased rs5 Disposition Summary: 03/14/24 14:19 Discharge Ordered Notes: Location: Home sb4 Problem: an ongoing problem sb4 Symptoms: have improved sb4 Condition: Stable sb4 Diagnosis - Low back pain - chronic sb4 Followup: sb4 - With: Private Physician - When: Tomorrow - Reason: Recheck today's complaints, Re-evaluation by your physician Discharge Instructions: - Discharge Summary Sheet sb4 - Chronic Back Pain sb4 Forms: - Patient Portal Instructions sb4 - Leadership Thank You Letter sb4 Prescriptions: - Lidoderm 5 % Topical adhesive patch, medicated - apply 1 patch TOPICAL route daily leave on most painful area for up to 12 hrs; sb4 10 patch; Refills: 0, Product Selection Permitted - Cyclobenzaprine 10 mg Oral Tablet - take 1 tablet ORAL route every 8 hours As needed; 30 tablet; Refills: 0, sb4 Product Selection Permitted Signatures: Michelle Stevenson RN RN Pat Mcgraw PA-C PA-C sb4 Luis Le RN RN rs5
--- NOTE | 2024-03-14 14:20 | ER ---
Nurse's Notes [facility] Name: Genet Cruz Age: 63 yrs Sex: Female : 1960 Arrival Date: 03/14/2024 Time: 13:01 Bed Treatment Private MD: Diagnosis: Low back pain-chronic Presentation: 03/14 14:06 Chief complaint: Low back pain that radiates to both legs, changed pain management doctors and is out of her [place]. Coronavirus screen: At this time, the client does not indicate any symptoms associated with coronavirus-19. Ebola Screen: No symptoms or risks identified at this time. Initial Sepsis Screen: Does the patient meet any 2 criteria? No. Patient's initial sepsis screen is negative. Does the patient have a suspected source of infection? No. Patient's initial sepsis screen is negative. Risk Assessment: Do you want to hurt yourself or someone else? Patient reports no desire to harm self or others. Onset of symptoms was March 14, 2024. 14:06 Method Of Arrival: Wheelchair 14:06 Acuity: IVA 4 hb Triage Assessment: 14:06 General: Appears in no apparent distress. uncomfortable, Behavior is cooperative, rs5 anxious. 14:06 Musculoskeletal: Range of motion: intact in all extremities. rs5 Historical: - Allergies: 14:08 Codeine; hb 14:08 PENICILLINS; hb - PMHx: 14:08 chronic pain (L) arm; Diabetes - IDDM; Hypertension; PTSD (TIA); TIA; hb - Immunization history:: Adult Immunizations up to date. - Infectious Disease History:: Denies. - Social history:: Smoking status: Patient denies any tobacco usage or history of. Screenin:10 [facility] ED Fall Risk Assessment (Adult) History of falling in the last 3 months, rs5 including since admission No falls in past 3 months (0 pts) Confusion or Disorientation No (0 pts) Intoxicated or Sedated No (0 pts) Impaired Gait Yes (1 pt) Mobility Assist Device Used Yes (1 pt) Altered Elimination No (0 pt) Score/Fall Risk Level 0 - 2 = Low Risk Oriented to surroundings, Maintained a safe environment, Provided non-skid footwear. Abuse screen: Denies threats or abuse. Nutritional screening: No deficits noted. Tuberculosis screening: No symptoms or risk factors identified. Assessment: 14:07 General: Appears in no apparent distress. uncomfortable, Behavior is calm, cooperative. rs5 Pain: Complains of pain in back Pain currently is 8 out of 10 on a pain scale. Quality of pain is described as aching, Is continuous. Neuro: Level of Consciousness is awake, alert, obeys commands, Oriented to person, place, time, situation. Cardiovascular: Patient's skin is warm and dry. Respiratory: Airway is patent Respiratory effort is even, unlabored, Respiratory pattern is regular, symmetrical. GI: Abdomen is round non-distended, Abd is soft and non tender X 4 quads. : No signs and/or symptoms were reported regarding the genitourinary system. EENT: No signs and/or symptoms were reported regarding the EENT system. Derm: Skin is intact, Skin is pink, warm \T\ dry. Musculoskeletal: Range of motion: intact in all extremities. 15:00 Reassessment: Patient and/or family updated on plan of care and expected duration. Pain rs5 level reassessed. Patient is alert, oriented x 3, equal unlabored respirations, skin warm/dry/pink. Vital Signs: 14:06 BP 133 / 102; Pulse 96; Resp 20; Temp 98; Pulse Ox 100% on R/A; Weight 62.6 kg; Height hb 5 ft. 4 in. ; Pain 10/10; 14:35 BP 127 / 91; Pulse 80; Resp 17; Pulse Ox 99% on R/A; rs5 14:06 Body Mass Index 23.69 (62.60 kg, 162.56 cm) hb 14:06 Pain Scale: Adult hb ED Course: 13:03 Patient arrived in ED. mr 13:04 Pat Rodriguez PA-C is PHCP. sb4 13:04 Garrick Schmidt MD is Attending Physician. sb4 14:07 Patient has correct armband on for positive identification. Bed in low position. Call rs5 light in reach. Side rails up X2. 14:08 Triage completed. hb 14:08 Arm band placed on. hb 14:08 No provider procedures requiring assistance completed. rs5 14:28 Luis eL, RN is Primary Nurse. rs5 14:50 Provided Education on: DISCHARGE INSTRUCTIONS . rs5 14:55 Patient did not have IV access during this emergency room visit. rs5 Administered Medications: 14:20 Drug: [place] PO 10 mg-325 mg 1 tabs PO once Route: PO; rs5 14:55 Follow up: Response: No adverse reaction; Pain is decreased rs5 14:20 Drug: Lidoderm Topical Patch 5 % (700 mg/patch) 1 patches Topical once; leave on for 12 rs5 hours; cover most painful area; may cut into smaller pieces {Note: lower back.} Route: Topical; Site: affected area; 14:50 Follow up: Response: No adverse reaction; Pain is decreased rs5 14:20 Drug: Ketorolac IM 30 mg IM once Route: IM; Site: left deltoid; rs5 14:40 Follow up: Response: No adverse reaction; Pain is decreased rs5 14:20 Drug: Methocarbamol PO 500 mg PO once Route: PO; rs5 14:50 Follow up: Response: No adverse reaction; Pain is decreased rs5 Medication: 14:10 VIS not applicable for this client. rs5 Outcome: 14:19 Discharge ordered by . sb4 14:55 Discharged to home via wheelchair, rs5 14:55 Condition: stable rs5 14:55 Discharge instructions given to patient, Instructed on discharge instructions, follow up and referral plans. medication usage, Demonstrated understanding of instructions, follow-up care, medications, Prescriptions given X 2, 14:57 Patient left the ED. rs5 Signatures: Sandie Guzman, Aguilar Reg mr Michelle Stevenson, RN RN Pat Mcgraw PAJasonC PARayo sb4 Luis Le RN RN rs5 Corrections: (The following items were deleted from the chart) 16:52 14:22 Response: No adverse reaction; Pain is decreased rs5 rs5
[2024-03-14] MEDS ORDERED: methocarbamoL 500 MG TAB ONE (14:39)
[2024-03-14] MEDS ORDERED: KETOROLAC 30 MG/ML INJ ONE (14:40)
[2024-03-14] MEDS ORDERED: HYDROCODONE/APAP 10/325 TAB ONE (14:40)
[2024-03-14] MEDS ORDERED: LIDOCAINE 4% PATCH ONE (14:40)
[2024-03-14 15:01] VITALS: BP 133/102; TEMP 98; O2SAT 100
== END 2024-03-14 14:57 | disposition home or self-care (01) ==
LOC: ER 13:01
DX: M54.50 Low back pain, unspecified (principal); G89.29 Other chronic pain
CPT/HCPCS: 96372; 99284; J2003